=== PATIENT | female | born 1945 | race Caucasian/White ===

== ENCOUNTER → 2016-07-08 | Outpatient (CLI) | payer MEDICARE ==
[2016-07-08 11:43] LABS: Basophils # (A) 0.1 k/uL (0-0.2); Basophils % (A) 1 %; CH 29.4; Eosinophils # (A) 0.3 k/uL (0-0.7); Eosinophils % (A) 3 %; HCT 37.8 % (34.0-46.0); HDW 2.56; HGB 11.8 gm/dL (11.4-16.0); Hypochromasia Slight; Luc # (Auto) 0.19; Luc % (Auto) 2; Lymphocytes # (A) 1.8 k/uL (1.0-4.8); Lymphocytes % (A) 18 %; MCH 29.6 pg (25.0-35.0); MCHC 31.2 g/dL (31.0-37.0); MCV 95.1 fL (80.0-100.0); Mean Platelet Volume 8.8; Monocytes # (A) 0.5 k/uL (0-1.0); Monocytes % (A) 5 %; Neutrophils # (A) 7.3 k/uL (1.3-7.7); Neutrophils % (A) 72 %; RBC 3.98 m/uL (3.80-5.40); RDW 13.9 % (11.5-15.5); WBC 10.3 k/uL (3.8-10.6); WBC (Perox) 11.17
[2016-07-08 11:52] LABS: Calcium 8.9 mg/dL (8.4-10.2); Magnesium 1.9 mg/dL (1.6-2.3); Phosphorous 4.3 mg/dL (2.5-4.5); Potassium 5.5 mmol/L (3.5-5.1); Uric Acid 6.7 mg/dL (3.7-7.4)
[2016-07-08 12:00] LABS: Appearance,Urine Cloudy (Clear); Bacteria,Urine Occasional /hpf; Bilirubin,Urine Negative (Negative); Glucose,Urine (UA) 1+ (Negative); Ketones,Urine Negative (Negative); Leukocyte Esterase,Urine Small (Negative); Mucus,Urine Rare /hpf; Nitrite,Urine Negative (Negative); PH, Urine 5.5 (5.0-8.0); Particle Count 67583; Protein,Urine 1+ (Negative); RBC,Urine 2 /hpf (0-5); Specific Gravity,Urine 1.011 (1.001-1.035); Squamous Epithelial Cell,Urine <1 /hpf (0-4); UA Billing (MACRO vs. MICRO) MICRO; Urobilinogen,Urine <2.0 mg/dL (<2.0); WBC,Urine 15 /hpf (0-5)
[2016-07-08 12:15] LABS: % Iron Saturation 29.9 % (20-50)
[2016-07-08 16:58] LABS: ANA w/Reflex to Titer NEGATIVE (NEGATIVE)
[2016-07-11 03:34] LABS: Complement Total (CH50) 172 CAE (54-144)
[2016-07-11 11:50] LABS: Free Kappa Lt Chain Qnt, Serum 10.88 mg/dL (0.33 - 1.94); Kappa/Lambda Light Chain Ratio 1.67 (0.26 - 1.65)
[2016-07-11 14:52] LABS: C-ANCA <1:20 Titer (<1:20); P-ANCA <1:20 Titer (<1:20)
[2016-07-11 16:14] LABS: Mis test requested (Non-blood) UPEP
== END | disposition home or self-care (01) ==
LOC: LABWHC1 11:15
PROVIDERS: ATTEND Nurse Practitioner Family
DX: N18.4 Chronic kidney disease, stage 4 (severe) (principal); D50.9 Iron deficiency anemia, unspecified; R80.9 Proteinuria, unspecified; N39.0 Urinary tract infection, site not specified; E21.3 Hyperparathyroidism, unspecified; E55.9 Vitamin D deficiency, unspecified; M10.9 Gout, unspecified
CPT/HCPCS: 36415; 80048; 81001; 82306; 82728; 83516; 83540; 83550; 83735; 83883; 83970; 84100; 84166; 84550; 85025; 86038; 86160; 86162; 86225; 86255; 87077; 87086; 87186

== ENCOUNTER → 2016-08-04 | Outpatient (CLI) | payer MEDICARE ==
[2016-08-04 12:51] LABS: CH 29.4; CHCM 31.3; HCT 36.2 % (34.0-46.0); HDW 2.72; HGB 11.5 gm/dL (11.4-16.0); Hypochromasia Slight; MCH 29.8 pg (25.0-35.0); MCHC 31.6 g/dL (31.0-37.0); MCV 94.4 fL (80.0-100.0); Mean Platelet Volume 8.9; RBC 3.84 m/uL (3.80-5.40); RDW 14.1 % (11.5-15.5); WBC 14.7 k/uL (3.8-10.6)
[2016-08-04 13:12] LABS: Appearance,Urine Cloudy (Clear); Bacteria,Urine Many /hpf; Bilirubin,Urine Negative (Negative); Glucose,Urine (UA) Negative (Negative); Ketones,Urine Negative (Negative); Leukocyte Esterase,Urine Large (Negative); Mucus,Urine Rare /hpf; Nitrite,Urine Negative (Negative); PH, Urine 5.5 (5.0-8.0); Particle Count 57795; Protein,Urine 1+ (Negative); RBC,Urine 3 /hpf (0-5); Specific Gravity,Urine 1.007 (1.001-1.035); Squamous Epithelial Cell,Urine 1 /hpf (0-4); UA Billing (MACRO vs. MICRO) MICRO; Urobilinogen,Urine <2.0 mg/dL (<2.0); WBC,Urine 24 /hpf (0-5)
[2016-08-04 13:37] LABS: Calcium 8.7 mg/dL (8.4-10.2); Magnesium 2.1 mg/dL (1.6-2.3); Phosphorous 4.5 mg/dL (2.5-4.5); Potassium 4.7 mmol/L (3.5-5.1); Uric Acid 6.1 mg/dL (3.7-7.4)
[2016-08-04 13:46] LABS: % Iron Saturation 25.4 % (20-50)
== END | disposition home or self-care (01) ==
LOC: LABWHC1 12:04
PROVIDERS: ATTEND Nurse Practitioner Family
DX: N18.4 Chronic kidney disease, stage 4 (severe) (principal); N39.0 Urinary tract infection, site not specified; D50.9 Iron deficiency anemia, unspecified; E21.3 Hyperparathyroidism, unspecified; E55.9 Vitamin D deficiency, unspecified; M10.9 Gout, unspecified
CPT/HCPCS: 36415; 80048; 81001; 82306; 82728; 83540; 83550; 83735; 83970; 84100; 84550; 85027

== ENCOUNTER → 2016-09-28 | Outpatient (CLI) | payer MEDICARE ==
[2016-09-28 13:05] LABS: Calcium 8.8 mg/dL (8.4-10.2); Potassium 4.7 mmol/L (3.5-5.1)
== END | disposition home or self-care (01) ==
LOC: LABWHC1 11:37
PROVIDERS: ATTEND Nurse Practitioner Family
DX: N18.4 Chronic kidney disease, stage 4 (severe) (principal)
CPT/HCPCS: 36415; 80048

== ENCOUNTER → 2016-11-14 | Outpatient (CLI) | payer MEDICARE ==
[2016-11-14 14:50] LABS: CH 29.3; CHCM 31.5; HCT 33.9 % (34.0-46.0); HGB 10.8 gm/dL (11.4-16.0); Hypochromasia Slight; MCH 29.5 pg (25.0-35.0); MCHC 31.7 g/dL (31.0-37.0); MCV 93.3 fL (80.0-100.0); Mean Platelet Volume 8.6; RBC 3.64 m/uL (3.80-5.40); RDW 14.2 % (11.5-15.5); WBC 11.9 k/uL (3.8-10.6)
[2016-11-14 14:51] LABS: Calcium 8.9 mg/dL (8.4-10.2); Magnesium 2.2 mg/dL (1.6-2.3); Phosphorous 4.2 mg/dL (2.5-4.5); Potassium 5.4 mmol/L (3.5-5.1); Uric Acid 5.6 mg/dL (3.7-7.4)
[2016-11-14 15:00] LABS: % Iron Saturation 16.1 % (20-50)
[2016-11-14 15:15] LABS: Appearance,Urine Clear (Clear); Bilirubin,Urine Negative (Negative); Glucose,Urine (UA) 1+ (Negative); Ketones,Urine Negative (Negative); Leukocyte Esterase,Urine Trace (Negative); Nitrite,Urine Negative (Negative); PH, Urine 7.5 (5.0-8.0); Particle Count 1406; Protein,Urine 2+ (Negative); RBC,Urine 4 /hpf (0-5); Specific Gravity,Urine 1.011 (1.001-1.035); Squamous Epithelial Cell,Urine 2 /hpf (0-4); UA Billing (MACRO vs. MICRO) MICRO; Urobilinogen,Urine <2.0 mg/dL (<2.0); WBC,Urine 11 /hpf (0-5)
[2016-11-14 22:04] LABS: Hemoglobin A1C 8.3 % (4.2-6.1)
== END | disposition home or self-care (01) ==
LOC: LABWHC1 14:09
PROVIDERS: ATTEND Nurse Practitioner Family
DX: N18.4 Chronic kidney disease, stage 4 (severe) (principal); D64.9 Anemia, unspecified; N39.0 Urinary tract infection, site not specified; E11.9 Type 2 diabetes mellitus without complications; E21.3 Hyperparathyroidism, unspecified; E55.9 Vitamin D deficiency, unspecified; M10.9 Gout, unspecified
CPT/HCPCS: 36415; 80048; 81001; 82306; 82728; 83036; 83540; 83550; 83735; 83970; 84100; 84550; 85027; 87086

== ENCOUNTER 2016-12-24 22:58 | Inpatient (IN) | payer MEDICARE ==
[2016-12-24] MEDS ORDERED: IPRATROPIUM-ALBUTEROL 3 ML NEB INHALATION STA (23:05)
--- NOTE | 2016-12-24 23:08 | ED ---
SOB HPI - General Stated Complaint: CRISTHIAN Time Seen by Provider: 12/24/16 23:00 Source: patient Limitations: altered mental status (Dyspnea) - History of Present Illness Initial Comments: This is 71-year-old woman brought in for shortness of breath that she states is been getting worse since this evening. She also notes some tightness across the chest bilaterally. MD Complaint: shortness of breath -: hour(s) Consistency: constant Improves With: nothing Worsens With: nothing Associated Symptoms: denies other symptoms Treatments Prior to Arrival: bronchodilator - Related Data Home Medications Medication Instructions Recorded Confirmed DULoxetine HCL [Cymbalta] 60 mg PO DAILY 08/04/14 11/22/15 Fish Oil/Dha/Epa [Fish Oil 1,200 1 cap PO MOWEFR 08/04/14 11/22/15 mg Fish Oil] Insulin Glargine [Lantus] 20 units SQ HS 08/04/14 11/22/15 Liraglutide [Victoza 3-Manuel] 1.8 mg SQ DAILY 08/04/14 11/22/15 Acetaminophen Tab [Tylenol] 650 mg PO Q6H PRN 05/29/15 11/22/15 Furosemide [Lasix] 20 mg PO DAILY 05/29/15 11/22/15 Amiodarone HCl [Pacerone] 100 mg PO DAILY 11/22/15 11/22/15 Apixaban [Eliquis] 2.5 mg PO BID 11/22/15 11/22/15 Aspirin EC [Ecotrin Low Dose] 81 mg PO HS 11/22/15 11/22/15 Cetirizine HCl [Zyrtec] 10 mg PO DAILY 11/22/15 11/22/15 Cholecalciferol [Vitamin D3] 2,000 unit PO DAILY 11/22/15 11/22/15 Cranberry 4200mg Tab(Unknown) 4,200 mg PO BID 11/22/15 11/22/15 Cyclobenzaprine [Flexeril] 2.5 - 5 mg PO HS PRN 11/22/15 11/22/15 Docusate [Colace] 100 mg PO BID 11/22/15 11/22/15 Ezetimibe [Zetia] 10 mg PO DAILY 11/22/15 11/22/15 Isosorbide Mononitrate ER [Imdur] 30 mg PO DAILY 11/22/15 11/22/15 Magnesium Oxide [Mag-Ox] 400 mg PO HS 11/22/15 11/22/15 Metoprolol Tartrate 50 mg PO BID 11/22/15 11/22/15 NIFEdipine [NIFEdipine ER] 30 mg PO DAILY 11/22/15 11/22/15 Repaglinide 1 mg PO AC-LUNCH 11/22/15 11/22/15 Repaglinide 1 mg PO AC-SUPPER 11/22/15 11/22/15 Previous Rx's Medication Instructions Recorded ALPRAZolam [Xanax] 0.25 mg PO DAILY PRN #30 tab 11/27/15 Ciprofloxacin HCl [Cipro] 500 mg PO Q18H #20 tab 11/27/15 Famotidine [Pepcid] 20 mg PO DAILY tab 11/27/15 Gabapentin [Neurontin] 300 mg PO BID #60 capsule 11/27/15 INSULIN LISPRO (humaLOG) [humaLOG 0 unit SQ ACHS vial 11/27/15 (formulary)] traMADol HCL [Ultram] 50 - 100 mg PO Q4-6H PRN #120 11/27/15 tablet Allergies Allergy/AdvReac Type Severity Reaction Status Date / Time KUSHAL Inhibitors Allergy Unknown Verified 12/25/16 07:50 ARB-Angiotensin Receptor Allergy Unknown Verified 12/25/16 07:50 Antagonist cephalexin monohydrate Allergy Rash/Hives Verified 12/25/16 07:50 [From Keflex] moexipril HCl [From Univasc] Allergy Unknown Verified 12/25/16 07:50 propoxyphene HCl Allergy Unknown Verified 12/25/16 07:50 [From Darvon] Mrpkauz-Rpx-Vln Reductase Allergy Unknown Verified 12/25/16 07:50 Inhibitor Review of Systems ROS Statement: Those systems with pertinent positive or pertinent negative responses have been documented in the HPI. ROS Other: All systems not noted in ROS Statement are negative. Limitations: ROS unobtainable due to patients medical condition (Dyspnea) Constitutional: Denies: fever, chills ENT: Reports: dental pain (States that she had a dental abscess drained yesterday and is going to have a tooth extracted Monday) Respiratory: Denies: cough, dyspnea Cardiovascular: Reports: as per HPI, chest pain. Denies: palpitations Gastrointestinal: Denies: abdominal pain, vomiting, diarrhea Genitourinary: Denies: dysuria, hematuria Musculoskeletal: Denies: back pain Skin: Denies: rash Neurological: Denies: headache Past Medical History Past Medical History: Atrial Fibrillation, Heart Failure, Diabetes Mellitus, GERD/Reflux, Hyperlipidemia, Hypertension, Myocardial Infarction ([place]), Pneumonia , Renal Disease, Sleep Apnea/CPAP/BIPAP Additional Past Medical History / Comment(s): undiagnosed sleep apnea. chronic kidney disease diangosed may 2015 Last Myocardial Infarction Date:: 05/28/2015 History of Any Multi-Drug Resistant Organisms: MRSA Date of last positivie culture/infection: 2009 MDRO Source:: wounds Past Surgical History: Back Surgery, Cholecystectomy, Heart Catheterization, Hysterectomy Additional Past Surgical History / Comment(s): Lumbar surgery with decompression off L3-L4 L4-L5 with fusion March 2011 with previous hardware failure L4-L5 and extension of fusion to S1. new back sugery including t8 and t9 Past Anesthesia/Blood Transfusion Reactions: No Reported Reaction Past Psychological History: Anxiety, Depression Additional Psychological History / Comment(s): she requires wheelchair to go around inside the house she used to have a cat was not diagnosed to have sleep apnea as there was no sleep study done at all Smoking Status: Never smoker Past Alcohol Use History: None Reported Past Drug Use History: None Reported - Past Family History Mother Family Medical History: AFIB, CVA/TIA, Hypertension Daughter(s) Family Medical History: Asthma Son(s) Family Medical History: Asthma General Exam General appearance: alert, in distress (Patient in mild respiratory distress), obese Head exam: Present: atraumatic, normocephalic Eye exam: Present: normal appearance. Absent: scleral icterus, conjunctival injection ENT exam: Present: mucous membranes dry Neck exam: Present: normal inspection, full ROM Respiratory exam: Present: respiratory distress (Mild tachypnea), wheezes, prolonged expiratory. Absent: rales, rhonchi, stridor, chest wall tenderness, accessory muscle use, decreased breath sounds Cardiovascular Exam: Present: regular rate, normal rhythm, normal heart sounds. Absent: systolic murmur, diastolic murmur, rubs, gallop GI/Abdominal exam: Present: soft. Absent: distended, tenderness, guarding, rebound, mass Extremities exam: Present: normal inspection, normal capillary refill. Absent: pedal edema, calf tenderness Back exam: Present: normal inspection. Absent: CVA tenderness (R), CVA tenderness (L) Neurological exam: Present: alert Skin exam: Present: warm, dry, intact, normal color. Absent: rash Course Vital Signs 12/24/16 12/24/16 12/24/16 23:03 23:26 23:41 Temperature 97.6 F Pulse Rate 99 97 95 Respiratory 22 Rate Blood Pressure 126/62 O2 Sat by Pulse 95 Oximetry 12/25/16 12/25/16 12/25/16 00:00 01:50 04:20 Temperature Pulse Rate 96 95 95 Respiratory 18 20 18 Rate Blood Pressure 183/78 174/73 154/71 O2 Sat by Pulse 99 97 96 Oximetry 12/25/16 12/25/16 07:02 07:24 Temperature Pulse Rate 94 95 Respiratory 18 20 Rate Blood Pressure 168/75 175/79 O2 Sat by Pulse 98 95 Oximetry Medical Decision Making - Medical Decision Making This patient is 71-year-old woman presenting with acute dyspnea. Clinically patient appears to have some underlying COPD, as well as some CHF component however the patient has had worse. CHF in the past. Patient's d-dimer is somewhat elevated and renal function does not support receiving dye load therefore will have VQ scan in the morning. - Lab Data Result diagrams: 12/24/16 23:08 12/24/16 23:08 Lab Results 12/24/16 12/24/16 12/24/16 Range/Units 23:08 23:08 23:08 WBC 11.5 H (3.8-10.6) k/uL RBC 3.45 L (3.80-5.40) m/uL Hgb 10.3 L (11.4-16.0) gm/dL Hct 32.6 L (34.0-46.0) % MCV 94.5 (80.0-100.0) fL MCH 29.7 (25.0-35.0) pg MCHC 31.4 (31.0-37.0) g/dL RDW 14.9 (11.5-15.5) % Plt Count 247 (150-450) k/uL Neutrophils % 75 % Lymphocytes % 10 % Monocytes % 5 % Eosinophils % 8 % Basophils % 1 % Neutrophils # 8.6 H (1.3-7.7) k/uL Lymphocytes # 1.2 (1.0-4.8) k/uL Monocytes # 0.5 (0-1.0) k/uL Eosinophils # 0.9 H (0-0.7) k/uL Basophils # 0.1 (0-0.2) k/uL Hypochromasia Slight PT (9.0-12.0) sec INR (<1.2) APTT (22.0-30.0) sec D-Dimer (<0.60) mg/L FEU Sample Site ABG pH (7.35-7.45) ABG pCO2 (35-45) mmHg ABG pO2 (83-108) mmHg ABG HCO3 (21-25) mmol/L ABG Total CO2 (19-24) mmol/L ABG O2 Saturation (94-97) % ABG Base Excess mmol/L FiO2 % Sodium 138 (137-145) mmol/L Potassium 5.7 H (3.5-5.1) mmol/L Chloride 105 (98-107) mmol/L Carbon Dioxide 23 (22-30) mmol/L Anion Gap 10 mmol/L BUN 39 H (7-17) mg/dL Creatinine 2.80 H (0.52-1.04) mg/dL Est GFR (MDRD) Af Amer 20 (>60 ml/min/1.73 sqM) Est GFR (MDRD) Non-Af 17 (>60 ml/min/1.73 sqM) Glucose 349 H (74-99) mg/dL Plasma Lactic Acid Satinder (0.7-2.0) mmol/L Calcium 8.7 (8.4-10.2) mg/dL Magnesium 1.9 (1.6-2.3) mg/dL Total Bilirubin 0.5 (0.2-1.3) mg/dL AST 44 H (14-36) U/L ALT 39 (9-52) U/L Alkaline Phosphatase 172 H (38-126) U/L Total Creatine Kinase 34 (30-135) U/L CK-MB (CK-2) 1.3 (0.0-2.4) ng/mL CK-MB (CK-2) Rel Index 3.8 Troponin I <0.012 (0.000-0.034) ng/mL NT-Pro-B Natriuret Pep pg/mL Total Protein 6.5 (6.3-8.2) g/dL Albumin 3.2 L (3.5-5.0) g/dL Urine Color Urine Appearance (Clear) Urine pH (5.0-8.0) Ur Specific [place] (1.001-1.035) Urine Protein (Negative) Urine Glucose (UA) (Negative) Urine Ketones (Negative) Urine Blood (Negative) Urine Nitrite (Negative) Urine Bilirubin (Negative) Urine Urobilinogen (<2.0) mg/dL Ur Leukocyte Esterase (Negative) Urine RBC (0-5) /hpf Urine WBC (0-5) /hpf Ur Squamous Epith Cells (0-4) /hpf Urine Bacteria (None) /hpf Hyaline Casts (0-2) /lpf Urine Mucus (None) /hpf 12/24/16 12/24/16 12/24/16 Range/Units 23:08 23:08 23:08 WBC (3.8-10.6) k/uL RBC (3.80-5.40) m/uL Hgb (11.4-16.0) gm/dL Hct (34.0-46.0) % MCV (80.0-100.0) fL MCH (25.0-35.0) pg MCHC (31.0-37.0) g/dL RDW (11.5-15.5) % Plt Count (150-450) k/uL Neutrophils % % Lymphocytes % % Monocytes % % Eosinophils % % Basophils % % Neutrophils # (1.3-7.7) k/uL Lymphocytes # (1.0-4.8) k/uL Monocytes # (0-1.0) k/uL Eosinophils # (0-0.7) k/uL Basophils # (0-0.2) k/uL Hypochromasia PT 10.5 (9.0-12.0) sec INR 1.0 (<1.2) APTT 25.5 (22.0-30.0) sec D-Dimer 1.54 H (<0.60) mg/L FEU Sample Site ABG pH (7.35-7.45) ABG pCO2 (35-45) mmHg ABG pO2 (83-108) mmHg ABG HCO3 (21-25) mmol/L ABG Total CO2 (19-24) mmol/L ABG O2 Saturation (94-97) % ABG Base Excess mmol/L FiO2 % Sodium (137-145) mmol/L Potassium (3.5-5.1) mmol/L Chloride (98-107) mmol/L Carbon Dioxide (22-30) mmol/L Anion Gap mmol/L BUN (7-17) mg/dL Creatinine (0.52-1.04) mg/dL Est GFR (MDRD) Af Amer (>60 ml/min/1.73 sqM) Est GFR (MDRD) Non-Af (>60 ml/min/1.73 sqM) Glucose (74-99) mg/dL Plasma Lactic Acid Satinder 1.1 (0.7-2.0) mmol/L Calcium (8.4-10.2) mg/dL Magnesium (1.6-2.3) mg/dL Total Bilirubin (0.2-1.3) mg/dL AST (14-36) U/L ALT (9-52) U/L Alkaline Phosphatase (38-126) U/L Total Creatine Kinase (30-135) U/L CK-MB (CK-2) (0.0-2.4) ng/mL CK-MB (CK-2) Rel Index Troponin I (0.000-0.034) ng/mL NT-Pro-B Natriuret Pep 4910 pg/mL Total Protein (6.3-8.2) g/dL Albumin (3.5-5.0) g/dL Urine Color Urine Appearance (Clear) Urine pH (5.0-8.0) Ur Specific [place] (1.001-1.035) Urine Protein (Negative) Urine Glucose (UA) (Negative) Urine Ketones (Negative) Urine Blood (Negative) Urine Nitrite (Negative) Urine Bilirubin (Negative) Urine Urobilinogen (<2.0) mg/dL Ur Leukocyte Esterase (Negative) Urine RBC (0-5) /hpf Urine WBC (0-5) /hpf Ur Squamous Epith Cells (0-4) /hpf Urine Bacteria (None) /hpf Hyaline Casts (0-2) /lpf Urine Mucus (None) /hpf 12/24/16 12/25/16 Range/Units 23:30 00:01 WBC (3.8-10.6) k/uL RBC (3.80-5.40) m/uL Hgb (11.4-16.0) gm/dL Hct (34.0-46.0) % MCV (80.0-100.0) fL MCH (25.0-35.0) pg MCHC (31.0-37.0) g/dL RDW (11.5-15.5) % Plt Count (150-450) k/uL Neutrophils % % Lymphocytes % % Monocytes % % Eosinophils % % Basophils % % Neutrophils # (1.3-7.7) k/uL Lymphocytes # (1.0-4.8) k/uL Monocytes # (0-1.0) k/uL Eosinophils # (0-0.7) k/uL Basophils # (0-0.2) k/uL Hypochromasia PT (9.0-12.0) sec INR (<1.2) APTT (22.0-30.0) sec D-Dimer (<0.60) mg/L FEU Sample Site rrad ABG pH 7.32 L (7.35-7.45) ABG pCO2 48 H (35-45) mmHg ABG pO2 87 (83-108) mmHg ABG HCO3 24 (21-25) mmol/L ABG Total CO2 25 H (19-24) mmol/L ABG O2 Saturation 96.0 (94-97) % ABG Base Excess -1.8 mmol/L FiO2 36 % Sodium (137-145) mmol/L Potassium (3.5-5.1) mmol/L Chloride (98-107) mmol/L Carbon Dioxide (22-30) mmol/L Anion Gap mmol/L BUN (7-17) mg/dL Creatinine (0.52-1.04) mg/dL Est GFR (MDRD) Af Amer (>60 ml/min/1.73 sqM) Est GFR (MDRD) Non-Af (>60 ml/min/1.73 sqM) Glucose (74-99) mg/dL Plasma Lactic Acid Satinder (0.7-2.0) mmol/L Calcium (8.4-10.2) mg/dL Magnesium (1.6-2.3) mg/dL Total Bilirubin (0.2-1.3) mg/dL AST (14-36) U/L ALT (9-52) U/L Alkaline Phosphatase (38-126) U/L Total Creatine Kinase (30-135) U/L CK-MB (CK-2) (0.0-2.4) ng/mL CK-MB (CK-2) Rel Index Troponin I (0.000-0.034) ng/mL NT-Pro-B Natriuret Pep pg/mL Total Protein (6.3-8.2) g/dL Albumin (3.5-5.0) g/dL Urine Color Yellow Urine Appearance Clear (Clear) Urine pH 6.0 (5.0-8.0) Ur Specific [place] 1.011 (1.001-1.035) Urine Protein 3+ H (Negative) Urine Glucose (UA) 4+ H (Negative) Urine Ketones Negative (Negative) Urine Blood Small H (Negative) Urine Nitrite Negative (Negative) Urine Bilirubin Negative (Negative) Urine Urobilinogen <2.0 (<2.0) mg/dL Ur Leukocyte Esterase Negative (Negative) Urine RBC 28 H (0-5) /hpf Urine WBC 2 (0-5) /hpf Ur Squamous Epith Cells 1 (0-4) /hpf Urine Bacteria Rare H (None) /hpf Hyaline Casts 13 H (0-2) /lpf Urine Mucus Rare H (None) /hpf - EKG Data -: EKG Interpreted by Me EKG shows normal: sinus rhythm, intervals (The QRS duration is prolonged at 140 ms. The SC interval is 160 ms the QTC is 525 ms), QRS complexes (There is a right bundle-branch block present. There is a left anterior fascicular block. There is a bifascicular block.) Rate: normal (Rate approximately 95 bpm) Interpretation: other (The EKG is similar to comparison with some changes in V1 and V2 that I suspect may be positional.) Disposition Clinical Impression: Elevated d-dimer, Acute exacerbation of chronic obstructive airways disease, Acute on chronic renal failure, Hyperkalemia Disposition: ADMITTED IP TO THIS HOSP
[2016-12-24 23:25] LABS: Basophils # (A) 0.1 k/uL (0-0.2); Basophils % (A) 1 %; CH 30.1; Eosinophils # (A) 0.9 k/uL (0-0.7); Eosinophils % (A) 8 %; HCT 32.6 % (34.0-46.0); HDW 2.87; HGB 10.3 gm/dL (11.4-16.0); Hypochromasia Slight; Luc # (Auto) 0.16; Luc % (Auto) 1; Lymphocytes # (A) 1.2 k/uL (1.0-4.8); Lymphocytes % (A) 10 %; MCH 29.7 pg (25.0-35.0); MCHC 31.4 g/dL (31.0-37.0); MCV 94.5 fL (80.0-100.0); Mean Platelet Volume 9.7; Monocytes # (A) 0.5 k/uL (0-1.0); Monocytes % (A) 5 %; Neutrophils # (A) 8.6 k/uL (1.3-7.7); Neutrophils % (A) 75 %; RBC 3.45 m/uL (3.80-5.40); RDW 14.9 % (11.5-15.5); WBC 11.5 k/uL (3.8-10.6); WBC (Perox) 11.82
--- NOTE | 2016-12-24 23:42 | XR ---
EXAM: XR Chest, 1 View CLINICAL HISTORY: Reason: dyspnea TECHNIQUE: Frontal view of the chest. COMPARISON: 11/22/2015. FINDINGS: Lungs: Bilateral perihilar infiltrates are suggested with heart appearing prominent, likely representing mild CHF/pulmonary edema. Bibasilar atelectasis and/or infiltrates are also present. Probable small bilateral pleural effusions. Low lung volumes are noted, limiting examination. Pleural space: See above. Heart: Suspected cardiomegaly. Mediastinum: Essentially unchanged. Bones/joints: Postsurgical changes involving the lower thoracolumbar spine again seen.. IMPRESSION: Low lung volumes, limiting evaluation. Bilateral perihilar infiltrates are suggested with heart appearing prominent, likely representing mild CHF/pulmonary edema. Bibasilar atelectasis and/or infiltrates are also present. Probable small bilateral pleural effusions. : Correlation recommended. PA and lateral views of the chest recommended for further evaluation, if clinically indicated.
[2016-12-24 23:43] LABS: Partial Thromboplastin Time 25.5 sec (22.0-30.0); Prothrombin Time 10.5 sec (9.0-12.0)
[2016-12-24 23:45] LABS: ABG HCO3 24 mmol/L (21-25); ABG PCO2 48 mmHg (35-45); ABG PH 7.32 (7.35-7.45); ABG PO2 87 mmHg (83-108)
[2016-12-24 23:46] LABS: ABG Base Excess -1.8 mmol/L; ABG TCO2 25 mmol/L (19-24)
[2016-12-24 23:48] LABS: Calcium 8.7 mg/dL (8.4-10.2); Magnesium 1.9 mg/dL (1.6-2.3); Potassium 5.7 mmol/L (3.5-5.1); Total Bilirubin 0.5 mg/dL (0.2-1.3); Total Protein 6.5 g/dL (6.3-8.2)
[2016-12-24 23:50] LABS: Creatine Kinase 34 U/L (30-135)
[2016-12-25 00:03] LABS: Creatine Kinase MB 1.3 ng/mL (0.0-2.4); Troponin I <0.012 ng/mL (0.000-0.034)
[2016-12-25 00:23] LABS: Appearance,Urine Clear (Clear); Bacteria,Urine Rare /hpf; Bilirubin,Urine Negative (Negative); Glucose,Urine (UA) 4+ (Negative); Ketones,Urine Negative (Negative); Leukocyte Esterase,Urine Negative (Negative); Mucus,Urine Rare /hpf; Nitrite,Urine Negative (Negative); Particle Count 1588; Protein,Urine 3+ (Negative); RBC,Urine 28 /hpf (0-5); Specific Gravity,Urine 1.011 (1.001-1.035); Squamous Epithelial Cell,Urine 1 /hpf (0-4); UA Billing (MACRO vs. MICRO) MICRO; Urobilinogen,Urine <2.0 mg/dL (<2.0); WBC,Urine 2 /hpf (0-5)
[2016-12-25] MEDS ORDERED: ENOXAPARIN 100 MG/ML SYRINGE SQ STA (00:38)
[2016-12-25] MEDS ORDERED: NITROGLYCERIN SL TABS 0.4 MG TAB SUBLINGUAL PRN (00:39)
[2016-12-25] MEDS ORDERED: ALPRAZolam 0.25 MG TAB PO PRN (00:42)
[2016-12-25] MEDS ORDERED: traMADol 50 MG TAB PO PRN (00:42)
[2016-12-25] MEDS ORDERED: ACETAMINOPHEN TAB 325 MG TAB PO PRN (00:42)
[2016-12-25] MEDS ORDERED: SODIUM POLYSTYRENE SULFONATE 15 GM/60 ML BOTTLE PO STA ×2 (03:53→15:57)
[2016-12-25 06:13] LABS: Creatine Kinase 25 U/L (30-135)
[2016-12-25 06:33] LABS: Creatine Kinase MB 1.1 ng/mL (0.0-2.4); Troponin I <0.012 ng/mL (0.000-0.034)
[2016-12-25] MEDS: IPRATROPIUM-ALBUTEROL 3 ML NEB INHALATION SCH ×3 (07:23→12:11)
[2016-12-25] MEDS ORDERED: INSULIN REGULAR 100 UNIT/ML VIAL SQ STA (08:06)
--- NOTE | 2016-12-25 08:10 | US ---
EXAMINATION TYPE: US venous doppler duplex LE DATE OF EXAM: 12/25/2016 7:34 AM COMPARISON: NONE CLINICAL HISTORY: R/O DVT. SOB, patient on blood thinner for AFIB SIDE PERFORMED: Bilateral TECHNIQUE: The lower extremity deep venous system is examined utilizing real time linear array sonog pushpa with graded compression, doppler sonography and color-flow sonography. VESSELS IMAGED: External Iliac Vein (EIV) Common Femoral Vein Deep Femoral Vein Greater Saphenous Vein * Femoral Vein Popliteal Vein Small Saphenous Vein * Proximal Calf Veins (* superficial vessels) Right Leg: No evidence of acute DVT as visualized Left Leg: No evidence of acute DVT as visualized IMPRESSION: 1. No evidence of DVT as visualized.
[2016-12-25] MEDS: AMIODARONE 100 MG TAB PO SCH (08:34)
[2016-12-25] MEDS: CHOLECALCIFEROL 1,000 UNIT TAB PO SCH (08:35)
[2016-12-25] MEDS: DOCUSATE 100 MG CAP PO SCH ×2 (08:35→21:18)
[2016-12-25] MEDS: DULoxetine HCL 60 MG CAPSULE.DR PO SCH (08:36)
[2016-12-25] MEDS: FAMOTIDINE 20 MG TAB PO SCH (08:36)
[2016-12-25] MEDS: EZETIMIBE 10 MG TAB PO SCH (08:36)
[2016-12-25] MEDS: LORATADINE 10 MG TAB PO SCH (08:37)
[2016-12-25] MEDS: ISOSORBIDE MONONITRATE ER 30 MG TAB.ER.24H PO SCH (08:37)
[2016-12-25] MEDS: GABAPENTIN 300 MG CAP PO SCH ×2 (08:37→21:18)
[2016-12-25] MEDS: METOPROLOL TARTRATE 50 MG TAB PO SCH ×2 (08:38→21:19)
--- NOTE | 2016-12-25 08:38 | NM ---
EXAMINATION TYPE: NM pul vent and perfuse DATE OF EXAM: 12/25/2016 COMPARISON: VQ scan 05/29/2015, chest x-ray 12/24/2016. HISTORY: Shortness of breath TECHNIQUE: Utilizing inhalation of 71.3 mCi Tc 99m DTPA aerosol and intravenous injection of 5.5 mCi of Tc 99m MAA, ventilation and perfusion images are acquired post injection in multiple projections. FINDINGS: Matched defect within the left lower lobe corresponds to the chest x-ray abnormality. Matched defect left upper lobe. IMPRESSION: Intermediate probability for pulmonary embolism.
[2016-12-25 08:46] LABS: Glucose,Whole Blood 305 mg/dL (75-99)
[2016-12-25] MEDS ORDERED: predniSONE 20 MG TAB PO SCH (09:00)
[2016-12-25] MEDS ORDERED: NON-FORMULARY DRUG (Liraglutide [Victoza 3-Pak] 1.8 MG) SQ SCH (09:00)
[2016-12-25] MEDS ORDERED: NIFEdipine XL 30 MG TAB.ER.24 PO SCH (09:00)
[2016-12-25] MEDS ORDERED: APIXABAN 2.5 MG TABLET PO SCH (09:00)
[2016-12-25] MEDS ORDERED: FUROSEMIDE 20 MG TAB PO SCH (09:00)
[2016-12-25 09:37] LABS: Glucose,Whole Blood 287 mg/dL (75-99)
[2016-12-25] MEDS ORDERED: FUROSEMIDE 10 MG/ML 10 ML VIAL IV STA (10:50)
[2016-12-25] MEDS ORDERED: CYCLOBENZAPRINE 5 MG TAB PO PRN (10:51)
[2016-12-25] MEDS ORDERED: INSULIN GLARGINE 100 UNIT/ML 10 ML VIAL SQ STA (10:55)
--- NOTE | 2016-12-25 10:59 | P.HPIM ---
History of Present Illness H&P Date: 12/25/16 Chief Complaint: Dyspnea This 71-year-old female patient presented with a chief complaint of dyspnea. Patient states that she had been out with her family for the day and about 7:30 PM last night began to experience short of some breath. This worsened and she also had chest heaviness associated with it. Her daughter who is an RN decided to bring her to the hospital. Patient does have a prior history of secondhand smoke exposure with a possible history of COPD. She is not normally oxygen dependent. She has many chronic issues as listed below. Her only other acute issues at this time is that she has had an abscessed tooth (molar right lower jaw ) that was worked on this week and is scheduled to be worked on further next week with the dentist in [place] Dr. Orourke. She was evaluated for sepsis and acute coronary syndrome in the emergency department. That workup is thus far negative. She did have an elevated d-dimer. She had a chest x-ray in the emergency department that did show some perihilar edema. She did have a VQ scan which was an intermediate probability. She has been on Eliquis at home. Lower extremity duplex is negative for DVT. Patient and family refuse any CAT scan because of the patient's tenuous renal status. They fear that any contrast would put patient back on dialysis as she had been in the past at one time. With patient's improved pulmonary status after BiPAP and now on 4 L of oxygen without significant accessory muscle use after measures that were taken in the emergency department and negative venous duplex of the lower extremities my clinical suspicion is lower for pulmonary embolus at this time but cannot be completely ruled out. Patient does not have any ongoing chest heaviness. She is able lie back at 30 without discomfort at this time. It sounds like that was not possible in the emergency department. Family relates patient did receive 20 mg of Lasix in the emergency department but has not significantly diuresed. Review of Systems Constitutional: Patient reports some sensation of fever and chills over the last 2-3 days, no weight changes, no change in appetite. Eyes: Patient reports no double vision, no visual changes. ENT: Patient reports no rhinorrhea, no post nasal drip. Throat slightly sore since being placed on oxygen, not prior. Cardiovascular: Patient reports positive chest pressure with for her breathing difficulty upon admission. No sharp chest pain. No radiation to the neck, jaw , or arm. no edema, no palpitations, no syncope, no orthopnea, no paroxysmal nocturnal dyspnea reported at this time the patient was sitting fully upright in the emergency department to be able to breathe.. Patient has a known history of aortic stenosis which her daughter states is mild. Chronic atrial fibrillation by history. Respiratory: Patient reports positive dyspnea upon admission which was the reason for presenting to the emergency department; no cough, no reported wheeze per patient. Gastrointestinal: Patient reports no nausea, no vomiting,, no diarrhea. positive chronic constipation for which she is on Colace and MiraLAX.. Genitourinary: Patient reports no dysuria, no urinary frequency, no hematuria. Musculoskeletal: Patient reports no joint swelling. She has chronic lumbar and thoracic back pain is had multiple back surgeries including fusions of the lumbar spine along with rods placed in the thoracic spine in the past. Psychiatric: Patient reports a history of both depression and anxiety. Patient states that she did lose her 2 years ago making this worse. However she states it has improved and she is feeling better now. She denies any suicidal ideation or plan to harm herself.. Endocrine: Patient reports positive history of diabetes mellitus. No reported thyroid disorder. Neurological: Patient reports positive history of left foot drop. Positive history of peripheral neuropathy of both the upper and lower extremities. This may be multifactorial. Patient certainly has a history of diabetes mellitus and also had a history of prolonged stay after her lumbar surgery and reports that some of her neuropathy was related to same. Patient was even at [facility] after her admission for that surgery. She is chronically wheel chair bound and unable to ambulate on her own fully since that surgery. Per daughter last hospitalization was 16 months ago. Heme/Lymphatic: Patient reports no easy bruising, no bleeding tendency, no lymphadenopathy. she is chronically on Eliquis for her atrial fibrillation Allergic/ Immunologic: Patient reports seasonal ALLERGIES Skin: Patient and daughter report patient has a sacral wound that is various stages of healing at different times. It is currently healing. Past Medical History Past Medical History: Atrial Fibrillation, Coronary Artery Disease (CAD) (four affected vessels per daughter; have been offered stent, etc. but refusing as concerned about worsening of renal failure with contrast for procedure), Heart Failure (chronic; dialysis dependent in past in 2014 for a few weeks post op), Diabetes Mellitus, GERD/Reflux, Hyperlipidemia, Hypertension, Myocardial Infarction (DE) (times 2, one 2015, one 07/2014), Pneumonia, Renal Disease ( chronic, stage 4), Skin Disorder (sacral wound), Sleep Apnea/CPAP/BIPAP Additional Past Medical History / Comment(s): possible sleep apnea, no established diagnosis; chronic kidney disease diangosed may 2015; aortic stenois ; peripheral neuropathy upper and lower extremity Last Myocardial Infarction Date:: 05/28/2015 History of Any Multi-Drug Resistant Organisms: MRSA Date of last positivie culture/infection: 2009 MDRO Source:: wounds Past Surgical History: Back Surgery, Cholecystectomy, Heart Catheterization ( known quadruple vessel disease per daughter report), Hysterectomy (with BSO for bleeding, no carcinoma history) Additional Past Surgical History / Comment(s): Lumbar surgery with decompression off L3-L4 L4-L5 with fusion March 2011 with previous hardware failure L4-L5 and extension of fusion to S1. 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 [employer] - Past Family History Mother Family Medical History: AFIB, CVA/TIA, Hypertension Additional Family Medical History / Comment(s): mother age 83 Daughter(s) Family Medical History: Asthma Son(s) Family Medical History: Asthma Father Additional Family Medical History / Comment(s): Brain aneurysm ; age 72 Sister(s) Family Medical History: Hypertension Additional Family Medical History / Comment(s): Aortic stenosis; mitral valve disease Medications and Allergies Home Medications Medication Instructions Recorded Confirmed Type DULoxetine HCL [Cymbalta] 60 mg PO DAILY 08/04/14 12/25/16 History Fish Oil/Dha/Epa [Fish Oil 1,200 1 cap PO MOWEFR 08/04/14 12/25/16 History mg Fish Oil] Insulin Glargine [Lantus] 30 units SQ HS 08/04/14 12/25/16 History Acetaminophen Tab [Tylenol] 650 mg PO Q6H PRN 05/29/15 12/25/16 History Amiodarone HCl [Pacerone] 100 mg PO DAILY 11/22/15 12/25/16 History Apixaban [Eliquis] 2.5 mg PO BID 11/22/15 12/25/16 History Aspirin EC [Ecotrin Low Dose] 81 mg PO HS 11/22/15 12/25/16 History Cetirizine HCl [Zyrtec] 10 mg PO DAILY 11/22/15 12/25/16 History Cholecalciferol [Vitamin D3] 2,000 unit PO HS 11/22/15 12/25/16 History Cyclobenzaprine [Flexeril] 2.5 - 5 mg PO HS PRN 11/22/15 12/25/16 History Docusate [Colace] 100 mg PO BID 11/22/15 12/25/16 History Ezetimibe [Zetia] 10 mg PO DAILY 11/22/15 12/25/16 History Isosorbide Mononitrate ER [Imdur] 30 mg PO DAILY 11/22/15 12/25/16 History Magnesium Oxide [Mag-Ox] 400 mg PO HS 11/22/15 12/25/16 History Metoprolol Tartrate 50 mg PO BID 11/22/15 12/25/16 History NIFEdipine [NIFEdipine ER] 30 mg PO DAILY 11/22/15 12/25/16 History Cranberry 4200mg-Vitamin C 1 tab PO DAILY 12/25/16 12/25/16 History Furosemide [Lasix] 20 mg PO DAILY 12/25/16 12/25/16 History Glimepiride [Amaryl] 2 mg PO DAILY 12/25/16 12/25/16 History Omeprazole 20 mg PO DAILY 12/25/16 12/25/16 History Penicillin V Potassium [Pen Vee K] 500 mg PO Q6HR 12/25/16 12/25/16 History Polyethylene Glycol 3350 [Miralax] 17 gm PO DAILY 12/25/16 12/25/16 History Allergies Allergy/AdvReac Type Severity Reaction Status Date / Time KUSHAL Inhibitors Allergy Unknown Verified 12/25/16 07:50 ARB-Angiotensin Receptor Allergy Unknown Verified 12/25/16 07:50 Antagonist cephalexin monohydrate Allergy Rash/Hives Verified 12/25/16 07:50 [From Keflex] propoxyphene HCl Allergy Unknown Verified 12/25/16 07:50 [From Darvon] [id number] Reductase Allergy Unknown Verified 12/25/16 07:50 Inhibitor Physical Exam Osteopathic Statement: *. No significant issues noted on an osteopathic structural exam other than those noted in the History and Physical/Consult. Vitals: Vital Signs Temp Pulse Pulse Resp BP BP Pulse Ox 12/25/16 10:30 97.9 F 94 20 181/81 97 12/25/16 08:56 95 12/25/16 08:47 97.1 F L 90 22 176/79 96 12/25/16 07:24 95 20 175/79 95 12/25/16 07:02 94 18 168/75 98 12/25/16 04:20 95 18 154/71 96 12/25/16 01:50 95 20 174/73 97 12/25/16 00:00 96 18 183/78 99 12/24/16 23:41 95 12/24/16 23:26 97 12/24/16 23:03 97.6 F 99 22 126/62 95 Intake and Output 12/24/16 12/25/16 12/25/16 22:59 06:59 14:59 Other: Weight 94.347 kg 99.2 kg Patient Weight 12/26/16 06:59 Weight 99.2 kg Constitutional: No acute distress, conversant, pleasant Eyes: Anicteric sclerae, moist conjunctiva, no lid-lag PERRLA ENMT: NC/AT Oropharynx clear, edema surrounding right posterior molar on the lower jaw Neck: Supple, FROM, no masses, or JVD No carotid bruits No thyromegaly Lungs: Apices clear. Crackles usp up the bilateral bases posteriorly. No accessory muscle use of the time of my exam however significant accessory muscle use was reported in the emergency department and the patient did require BiPAP therapy at that time. She is now stable on 4 L nasal cannula. Cardiovascular: Heart irregular in rhythm with a controlled rate, Possible faint murmur over the aortic listening post. There is some significant ambient noise in the room which limits this a bit. No peripheral edema Abdominal: Soft Nontender, no guarding, rebound or rigidity Abdomen moving with respiration Normoactive bowel sounds No hepatomegaly, No splenomegaly No palpable mass No abdominal wall hernia noted Skin: Normal temperature, tone, texture, turgor No induration No subcutaneous nodules No rash, lesions Healing sacral ulcer over the coccyx, does have scab formation over the top which limits the evaluation. Possible healing stage II. Photos were taken by the nurse for the chart. Extremities: No digital cyanosis Pedal pulses intact and symmetrical Radial pulses intact and symmetrical See neuro. Patient unable to ambulate on her own. No calf tenderness . No erythema or firm areas felt over the calves. Psychiatric: Alert and oriented to person, place and time Appropriate affect Intact judgement Neuro: Muscles Strength 5-/5 in upper extremities. Strawhat Blocking Operator strength slightly weaker on the left than the right. Quadriceps 4 out of 5, hamstrings 4 out of 5 bilaterally. EHL extremely weak on both sides, moves against gravity but not much resistance allowed. Sensation to light touch impaired with no sensation felt until just above the ankles bilaterally. Once above the ankles patient does have full light touch sensation. Sensation also impaired over the hands bilaterally. Cranial nerves II-XII grossly intact Normal biceps and patellar reflexes. Patient has neither a port nor downward movement with attempt at Babinski reflex. Results CBC & Chem 7: 12/24/16 23:08 12/25/16 13:51 Labs: Abnormal Lab Results - Last 24 Hours (Table) 12/24/16 12/24/16 12/24/16 Range/Units 23:08 23:08 23:08 WBC 11.5 H (3.8-10.6) k/uL RBC 3.45 L (3.80-5.40) m/uL Hgb 10.3 L (11.4-16.0) gm/dL Hct 32.6 L (34.0-46.0) % Neutrophils # 8.6 H (1.3-7.7) k/uL Eosinophils # 0.9 H (0-0.7) k/uL D-Dimer 1.54 H (<0.60) mg/L FEU ABG pH (7.35-7.45) ABG pCO2 (35-45) mmHg ABG Total CO2 (19-24) mmol/L Potassium 5.7 H (3.5-5.1) mmol/L BUN 39 H (7-17) mg/dL Creatinine 2.80 H (0.52-1.04) mg/dL Glucose 349 H (74-99) mg/dL POC Glucose (mg/dL) (75-99) mg/dL AST 44 H (14-36) U/L Alkaline Phosphatase 172 H (38-126) U/L Total Creatine Kinase (30-135) U/L Albumin 3.2 L (3.5-5.0) g/dL Urine Protein (Negative) Urine Glucose (UA) (Negative) Urine Blood (Negative) Urine RBC (0-5) /hpf Urine Bacteria (None) /hpf Hyaline Casts (0-2) /lpf Urine Mucus (None) /hpf 12/24/16 12/25/16 12/25/16 Range/Units 23:30 00:01 05:32 WBC (3.8-10.6) k/uL RBC (3.80-5.40) m/uL Hgb (11.4-16.0) gm/dL Hct (34.0-46.0) % Neutrophils # (1.3-7.7) k/uL Eosinophils # (0-0.7) k/uL D-Dimer (<0.60) mg/L FEU ABG pH 7.32 L (7.35-7.45) ABG pCO2 48 H (35-45) mmHg ABG Total CO2 25 H (19-24) mmol/L Potassium (3.5-5.1) mmol/L BUN (7-17) mg/dL Creatinine (0.52-1.04) mg/dL Glucose (74-99) mg/dL POC Glucose (mg/dL) (75-99) mg/dL AST (14-36) U/L Alkaline Phosphatase (38-126) U/L Total Creatine Kinase 25 L (30-135) U/L Albumin (3.5-5.0) g/dL Urine Protein 3+ H (Negative) Urine Glucose (UA) 4+ H (Negative) Urine Blood Small H (Negative) Urine RBC 28 H (0-5) /hpf Urine Bacteria Rare H (None) /hpf Hyaline Casts 13 H (0-2) /lpf Urine Mucus Rare H (None) /hpf 12/25/16 12/25/16 Range/Units 08:43 09:35 WBC (3.8-10.6) k/uL RBC (3.80-5.40) m/uL Hgb (11.4-16.0) gm/dL Hct (34.0-46.0) % Neutrophils # (1.3-7.7) k/uL Eosinophils # (0-0.7) k/uL D-Dimer (<0.60) mg/L FEU ABG pH (7.35-7.45) ABG pCO2 (35-45) mmHg ABG Total CO2 (19-24) mmol/L Potassium (3.5-5.1) mmol/L BUN (7-17) mg/dL Creatinine (0.52-1.04) mg/dL Glucose (74-99) mg/dL POC Glucose (mg/dL) 305 H 287 H (75-99) mg/dL AST (14-36) U/L Alkaline Phosphatase (38-126) U/L Total Creatine Kinase (30-135) U/L Albumin (3.5-5.0) g/dL Urine Protein (Negative) Urine Glucose (UA) (Negative) Urine Blood (Negative) Urine RBC (0-5) /hpf Urine Bacteria (None) /hpf Hyaline Casts (0-2) /lpf Urine Mucus (None) /hpf Comments: Report of venous duplex reviewed and is negative. Report of V/Q scan is that it is indeterminate. Chest x-ray: report reviewed, image reviewed (Consistent with perihilar edema and some blunting of the left costophrenic angle) Thrombosis Risk Factor Assmnt - DVT/VTE Prophylaxis DVT/VTE Prophylaxis: Pharmacologic Prophylaxis ordered Assessment and Plan Plan: Assessment: 1. Acute respiratory failure, possibly multifactorial; acute CHF, component possible COPD exacerbation (from prior secondhand smoke exposure) and fluid volume overload with chronic renal failure; known aortic stenosis; no evidence of acute myocardial infarction; does not rule in for true sepsis but tooth abscess with reported, fever reported prior to admission possibly contributing to decompensation. 2. Tooth Abscess right lower jaw, most posterior molar. 3. Chronic renal failure, GFR 17; Stage G4 4. Diabetes Mellitus with hyperglycemia exacerbated by steroid therapy. 5. Chronic back pain with prior surgeries of lumbar and thoracic spine. 6. Hypertension 7. Seasonal allergies 8. Accelerated hypertension, multifactorial 9. History of atrial fibrillation per patient and family, currently NSR with a bifasicular block , same as EKG from last year 10. Chronic peripheral neuropathy 11. Normocytic, Normochromic anemia, chronic with likely component of ESRD ; daughter states normal is around 11 12. Leukocytosis likely secondary to tooth abscess 13. Hematuria for outpatient follow-up with nephrology after discharge. 14. Protein Calorie Malnutrition 15. Obesity 16. Hyperkalemia likely secondary to chronic renal failure, kayexalate and insulin given in ER Plan: 1. Hold Eliquis as patient supposed to be off for surgical intervention of tooth on Monday, will start Lovenox at HS for DVT prophylaxis. Did receive one therapeutic dose in ER for possible PE while undergoing workup. Clinical suspicion for this is not high and therefore will not continue Levy therapeutic Lovenox only prophylactic dose. 2. Additional Lantus 10 units given along with scheduled Humalog with meals ordered. Humalog scale in place. 3. Home medications reconciled for all above diagnoses to be addressed. 4. IV Lasix ordered to address volume overload and hypertension and will monitor. 5. Patient placed on Unasyn for abscess of tooth given history of associated fever and chills. 6. One time peak flow to assess status. 7. Repeat elytes this afternoon and in am. 8. Pulmonary and cardiology consulted 9. Await 3rd troponin 10. Echocardiogram ordered to assess cardiac function and valve status. Patient and daughter indicate that her code status is FULL CODE and she has advanced directives for the chart.
[2016-12-25] MEDS ORDERED: MD COMMUNICATION TO PHARMACY 1 EACH MISC PO PRN (11:18)
[2016-12-25 11:20] LABS: Creatine Kinase 26 U/L (30-135)
[2016-12-25] MEDS ORDERED: AMOXIC-POT CLAV 500-125 MG 1 EACH TAB PO SCH (11:30)
[2016-12-25 11:34] LABS: Troponin I <0.012 ng/mL (0.000-0.034)
--- NOTE | 2016-12-25 12:09 | P.CNPUL ---
History of Present Illness Consult date: 12/25/16 Reason for consult: dyspnea, hypoxemia, pleural effusion, abnormal CXR/CT Chief complaint: Shortness of breath History of present illness: Consult dated 12/25/2016 This is a 71-year-old female who was admitted with a diagnosis of shortness of breath. Denies much in the way of cough or phlegm production. Not much in check his way of chest pain. The patient did have some mild chest discomfort. No fever no chills. No headache. No diaphoresis. The patient states she's recently gained weight. Around her midsection. Denies any orthopnea is more nocturnal dyspnea. She was seen in the ER admitted with a diagnosis of heart failure. She does not have any underlying lung disease. Lifelong nonsmoker. No established history of sleep apnea syndrome. Really nothing to suggest pneumonia per se. No history of any asthma or COPD. Again lifelong nonsmoker. Feeling much better now. Only received 20 of Lasix in the emergency department. Received 80 mg here. BNP is elevated. Her chest x-rays consistent with heart failure. VQ scan was indeterminate. I'm not sure why it was done. Dopplers of lower extremities were negative. She was seen in the ER December 24 and admitted to the ICU on December 25 which is today. Review of Systems A 12 point review of system is positive for shortness of breath and weight gain. The rest of the review of system is unremarkable. Past Medical History Past Medical History: Atrial Fibrillation, Coronary Artery Disease (CAD) (four affected vessels per daughter; have been offered stent, etc. but refusing as concerned about worsening of renal failure with contrast for procedure), Heart Failure (chronic; dialysis dependent in past in 2014 for a few weeks post op), Diabetes Mellitus, GERD/Reflux, Hyperlipidemia, Hypertension, Myocardial Infarction (VT) (times 2, one 2015, one 07/2014), Pneumonia, Renal Disease, Skin Disorder (sacral wound), Sleep Apnea/CPAP/BIPAP Additional Past Medical History / Comment(s): undiagnosed sleep apnea. chronic kidney disease diangosed may 2015; aortic stenois ; peripheral neuropathy upper and lower extremity Last Myocardial Infarction Date:: 05/28/2015 History of Any Multi-Drug Resistant Organisms: MRSA Date of last positivie culture/infection: 2009 MDRO Source:: wounds Past Surgical History: Back Surgery, Cholecystectomy, Heart Catheterization ( known quadruple vessel disease per daughter report), Hysterectomy (with BSO for bleeding, no carcinoma history) Additional Past Surgical History / Comment(s): Lumbar surgery with decompression off L3-L4 L4-L5 with fusion March 2011 with previous hardware failure L4-L5 and extension of fusion to S1. new back sugery including t8 and t9 Past Anesthesia/Blood Transfusion Reactions: No Reported Reaction Additional Past Anesthesia/Blood Transfusion Reaction / Comment(s): Possible confusion that resolved. Smoking Status: Never smoker (exposed to second hand smoke with ) Past Drug Use History: None Reported - Past Family History Father Additional Family Medical History / Comment(s): Brain aneurysm ; age 72 Sister(s) Family Medical History: Hypertension Additional Family Medical History / Comment(s): Aortic stenosis; mitral valve disease Mother Family Medical History: AFIB, CVA/TIA, Hypertension Additional Family Medical History / Comment(s): mother age 83 Daughter(s) Family Medical History: Asthma Son(s) Family Medical History: Asthma Medications and Allergies Home Medications Medication Instructions Recorded Confirmed Type DULoxetine HCL [Cymbalta] 60 mg PO DAILY 08/04/14 12/25/16 History Fish Oil/Dha/Epa [Fish Oil 1,200 1 cap PO MOWEFR 08/04/14 12/25/16 History mg Fish Oil] Insulin Glargine [Lantus] 30 units SQ HS 08/04/14 12/25/16 History Acetaminophen Tab [Tylenol] 650 mg PO Q6H PRN 05/29/15 12/25/16 History Amiodarone HCl [Pacerone] 100 mg PO DAILY 11/22/15 12/25/16 History Apixaban [Eliquis] 2.5 mg PO BID 11/22/15 12/25/16 History Aspirin EC [Ecotrin Low Dose] 81 mg PO HS 11/22/15 12/25/16 History Cetirizine HCl [Zyrtec] 10 mg PO DAILY 11/22/15 12/25/16 History Cholecalciferol [Vitamin D3] 2,000 unit PO HS 11/22/15 12/25/16 History Cyclobenzaprine [Flexeril] 2.5 - 5 mg PO HS PRN 11/22/15 12/25/16 History Docusate [Colace] 100 mg PO BID 11/22/15 12/25/16 History Ezetimibe [Zetia] 10 mg PO DAILY 11/22/15 12/25/16 History Isosorbide Mononitrate ER [Imdur] 30 mg PO DAILY 11/22/15 12/25/16 History Magnesium Oxide [Mag-Ox] 400 mg PO HS 11/22/15 12/25/16 History Metoprolol Tartrate 50 mg PO BID 11/22/15 12/25/16 History NIFEdipine [NIFEdipine ER] 30 mg PO DAILY 11/22/15 12/25/16 History Cranberry 4200mg-Vitamin C 1 tab PO DAILY 12/25/16 12/25/16 History Furosemide [Lasix] 20 mg PO DAILY 12/25/16 12/25/16 History Glimepiride [Amaryl] 2 mg PO DAILY 12/25/16 12/25/16 History Omeprazole 20 mg PO DAILY 12/25/16 12/25/16 History Penicillin V Potassium [Pen Vee K] 500 mg PO Q6HR 12/25/16 12/25/16 History Polyethylene Glycol 3350 [Miralax] 17 gm PO DAILY 12/25/16 12/25/16 History Allergies Allergy/AdvReac Type Severity Reaction Status Date / Time KUSHAL Inhibitors Allergy Unknown Verified 12/25/16 07:50 ARB-Angiotensin Receptor Allergy Unknown Verified 12/25/16 07:50 Antagonist cephalexin monohydrate Allergy Rash/Hives Verified 12/25/16 07:50 [From Keflex] moexipril HCl [From Univasc] Allergy Unknown Verified 12/25/16 07:50 propoxyphene HCl Allergy Unknown Verified 12/25/16 07:50 [From Darvon] Hsgxexs-Pvf-Crz Reductase Allergy Unknown Verified 12/25/16 07:50 Inhibitor Physical Exam Osteopathic Statement: *. No significant issues noted on an osteopathic structural exam other than those noted in the History and Physical/Consult. Vitals: Vital Signs Temp Pulse Pulse Resp BP BP Pulse Ox 12/25/16 10:30 97.9 F 94 20 181/81 97 12/25/16 09:30 94 20 12/25/16 08:56 95 12/25/16 08:47 97.1 F L 90 22 176/79 96 12/25/16 07:24 95 20 175/79 95 12/25/16 07:02 94 18 168/75 98 12/25/16 04:20 95 18 154/71 96 12/25/16 01:50 95 20 174/73 97 12/25/16 00:00 96 18 183/78 99 12/24/16 23:41 95 12/24/16 23:26 97 12/24/16 23:03 97.6 F 99 22 126/62 95 Intake and Output 12/24/16 12/25/16 12/25/16 22:59 06:59 14:59 Intake Total 50 Balance 50 Intake: Oral 50 Other: Voiding Method Diaper Incontinent Weight 94.347 kg 99.2 kg Patient Weight 12/26/16 06:59 Weight 99.2 kg No acute distress, lying flat. Nasal O2 in place. HEENT examination is grossly unremarkable. Mucous membranes are moist. No oral lesions. Neck supple. Full range of motion. No adenopathy or thyromegaly. Neck veins are flat. Cardiovascular examination reveals distant heart sounds. S1-S2 normal. No distinct murmur. No S3 or S4 noted. Lungs reveal some bibasilar crackles. Breath sounds are diminished. No wheezes or rhonchi. Abdomen is obese. Bowel sounds are heard. Extremities are intact. Mild 1+ edema. Skin without rash. Neurologic examination is nonfocal. Results - Laboratory Findings CBC and BMP: 12/24/16 23:08 12/24/16 23:08 ABG ABG pH 7.32 (7.35-7.45) L 12/24/16 23:30 ABG pCO2 48 mmHg (35-45) H 12/24/16 23:30 ABG pO2 87 mmHg (83-108) 12/24/16 23:30 ABG O2 Saturation 96.0 % (94-97) 12/24/16 23:30 PT/INR, D-dimer PT 10.5 sec (9.0-12.0) 12/24/16 23:08 INR 1.0 (<1.2) 12/24/16 23:08 D-Dimer 1.54 mg/L FEU (<0.60) H 12/24/16 23:08 Abnormal lab findings: Abnormal Labs 12/24/16 12/24/16 12/24/16 23:08 23:08 23:08 WBC 11.5 H RBC 3.45 L Hgb 10.3 L Hct 32.6 L Neutrophils # 8.6 H Eosinophils # 0.9 H D-Dimer 1.54 H ABG pH ABG pCO2 ABG Total CO2 Potassium 5.7 H BUN 39 H Creatinine 2.80 H Glucose 349 H POC Glucose (mg/dL) AST 44 H Alkaline Phosphatase 172 H Total Creatine Kinase Albumin 3.2 L Urine Protein Urine Glucose (UA) Urine Blood Urine RBC Urine Bacteria Hyaline Casts Urine Mucus 12/24/16 12/25/16 12/25/16 23:30 00:01 05:32 WBC RBC Hgb Hct Neutrophils # Eosinophils # D-Dimer ABG pH 7.32 L ABG pCO2 48 H ABG Total CO2 25 H Potassium BUN Creatinine Glucose POC Glucose (mg/dL) AST Alkaline Phosphatase Total Creatine Kinase 25 L Albumin Urine Protein 3+ H Urine Glucose (UA) 4+ H Urine Blood Small H Urine RBC 28 H Urine Bacteria Rare H Hyaline Casts 13 H Urine Mucus Rare H 12/25/16 12/25/16 12/25/16 08:43 09:35 10:39 WBC RBC Hgb Hct Neutrophils # Eosinophils # D-Dimer ABG pH ABG pCO2 ABG Total CO2 Potassium BUN Creatinine Glucose POC Glucose (mg/dL) 305 H 287 H AST Alkaline Phosphatase Total Creatine Kinase 26 L Albumin Urine Protein Urine Glucose (UA) Urine Blood Urine RBC Urine Bacteria Hyaline Casts Urine Mucus - Diagnostic Findings Chest x-ray: image reviewed U/S of Legs: report reviewed (Chest x-ray labs and medications are all reviewed. ) Assessment and Plan (1) Obesity Status: Acute (2) Diabetes mellitus Status: Acute (3) Chronic kidney disease Status: Acute (4) Acute on chronic renal failure Status: Acute (5) Acute pulmonary edema Status: Acute (6) Acute respiratory failure Status: Acute (7) Congestive heart failure Status: Acute Plan: Plan dated 12/25/2016 The patient had an elevated BNP of 4900. His VQ scan was indeterminate as expected. Dopplers of the lower semis were negative. The patient had a chest x -ray that was consistent with heart failure. No history of sleep apnea. No history of any intrinsic pulmonary disease. Lifelong nonsmoker. The patient will be treated primarily with oxygen therapy breathing treatments and diuretics. No need for antibiotics. Additional recommendations are made. Medications labs and x-rays are all reviewed. Time with Patient: Greater than 30
[2016-12-25 12:20] LABS: Glucose,Whole Blood 249 mg/dL (75-99)
[2016-12-25] MEDS ORDERED: REPAGLINIDE 1 MG TAB PO SCH ×2 (12:30→17:30)
[2016-12-25] MEDS ORDERED: POLYETHYLENE GLYCOL 3350 17 GM POWD.PACK PO PRN (12:58)
[2016-12-25] MEDS ORDERED: BENZOCAINE/MENTHOL LOZENG 1 EACH LOZENGE MUCOUS MEM PRN (12:59)
[2016-12-25] MEDS ORDERED: NIFEdipine XL 30 MG TAB.ER.24 PO STA (13:06)
[2016-12-25] MEDS: AMPICILLIN-SULBACTAM 1.5 GM in SODIUM CHLORIDE 0.9% 50 ML IVPB SCH ×2 (13:15→21:17)
[2016-12-25] MEDS: INSULIN LISPRO (humaLOG) 300 UNIT/3 ML VIAL SQ SCH ×5 (13:15→21:18)
--- NOTE | 2016-12-25 13:23 | P.CRDCN ---
History of Present Illness Consult reason: hypertension, congestive heart failure History of present illness: Patient presented with shortness of breath while sitting of fairly sudden onset. A chest x-ray was abnormal and yet a VQ scan was done which shows intermediate probability for pulmonary embolism She received IV Lasix with improvement. She denied any chest pain other than a vague discomfort that was quite brief No loss of consciousness Review of systems: No fever chills or rigors, no cough, phlegm or expectoration , no nausea, vomiting or diarrhea, no hematuria, dysuria, no musculoskeletal complaints, no strokes or seizures, no skin lesions. Past history of atrial fibrillation currently on 100 mg by mouth of amiodarone him a coronary artery disease, chronic kidney disease, heart failure I don't LV function at this time adult-onset diabetes, obesity, hypertension, dyslipidemia , sleep apnea using a BiPAP mask Past surgical history reviewed Medication list at home reviewed ALLERGY list reviewed 12 ECG shows sinus rhythm right bundle branch block left anterior fascicular block normal GA On examination her blood pressure is elevated but it was normal when she first arrived in the ER. 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 Further management per admitting physician regarding Fabrizio Jeffers status and pulmonary embolism From a cardiac standpoint she has already received an extra dose of IV Lasix and I will add Procardia XL 30 mrem daily to make him a total of 60 mg to be given once daily. Continue beta blockers Blood pressure control with Procardia XL along with beta blockers Past Medical History Past Medical History: Atrial Fibrillation, Coronary Artery Disease (CAD) (four affected vessels per daughter; have been offered stent, etc. but refusing as concerned about worsening of renal failure with contrast for procedure), Heart Failure (chronic; dialysis dependent in past in 2014 for a few weeks post op), Diabetes Mellitus, GERD/Reflux, Hyperlipidemia, Hypertension, Myocardial Infarction (OR) (times 2, one 2015, one 07/2014), Pneumonia, Renal Disease, Skin Disorder (sacral wound), Sleep Apnea/CPAP/BIPAP Additional Past Medical History / Comment(s): possible sleep apnea, no established diagnosis, chronic kidney disease diangosed may 2015; aortic stenois ; peripheral neuropathy upper and lower extremity Last Myocardial Infarction Date:: 05/28/2015 History of Any Multi-Drug Resistant Organisms: MRSA Date of last positivie culture/infection: 2009 MDRO Source:: wounds Past Surgical History: Back Surgery, Cholecystectomy, Heart Catheterization ( known quadruple vessel disease per daughter report), Hysterectomy (with BSO for bleeding, no carcinoma history) Additional Past Surgical History / Comment(s): Lumbar surgery with decompression off L3-L4 L4-L5 with fusion March 2011 with previous hardware failure L4-L5 and extension of fusion to S1. new back sugery including t8 and t9 Past Anesthesia/Blood Transfusion Reactions: No Reported Reaction Additional Past Anesthesia/Blood Transfusion Reaction / Comment(s): Possible confusion that resolved. Smoking Status: Never smoker (exposed to second hand smoke with ) Past Drug Use History: None Reported - Past Family History Father Additional Family Medical History / Comment(s): Brain aneurysm ; age 72 Sister(s) Family Medical History: Hypertension Additional Family Medical History / Comment(s): Aortic stenosis; mitral valve disease Mother Family Medical History: AFIB, CVA/TIA, Hypertension Additional Family Medical History / Comment(s): mother age 83 Daughter(s) Family Medical History: Asthma Son(s) Family Medical History: Asthma Medications and Allergies Home Medications Medication Instructions Recorded Confirmed Type RX: DULoxetine HCL [Cymbalta] 60 mg PO DAILY 08/04/14 12/25/16 History RX: Fish Oil/Dha/Epa [Fish Oil 1 cap PO MOWEFR 08/04/14 12/25/16 History 1,200 mg Fish Oil] RX: Insulin Glargine [Lantus] 30 units SQ HS 08/04/14 12/25/16 History RX: Acetaminophen Tab [Tylenol] 650 mg PO Q6H PRN 05/29/15 12/25/16 History RX: Amiodarone HCl [Pacerone] 100 mg PO DAILY 11/22/15 12/25/16 History RX: Apixaban [Eliquis] 2.5 mg PO BID 11/22/15 12/25/16 History RX: Aspirin EC [Ecotrin Low Dose] 81 mg PO HS 11/22/15 12/25/16 History RX: Cetirizine HCl [Zyrtec] 10 mg PO DAILY 11/22/15 12/25/16 History RX: Cholecalciferol [Vitamin D3] 2,000 unit PO HS 11/22/15 12/25/16 History RX: Cyclobenzaprine [Flexeril] 2.5 - 5 mg PO HS PRN 11/22/15 12/25/16 History RX: Docusate [Colace] 100 mg PO BID 11/22/15 12/25/16 History RX: Ezetimibe [Zetia] 10 mg PO DAILY 11/22/15 12/25/16 History RX: Isosorbide Mononitrate ER 30 mg PO DAILY 11/22/15 12/25/16 History [Imdur] RX: Magnesium Oxide [Mag-Ox] 400 mg PO HS 11/22/15 12/25/16 History RX: Metoprolol Tartrate 50 mg PO BID 11/22/15 12/25/16 History RX: NIFEdipine [NIFEdipine ER] 30 mg PO DAILY 11/22/15 12/25/16 History Cranberry 4200mg-Vitamin C 1 tab PO DAILY 12/25/16 12/25/16 History Furosemide [Lasix] 20 mg PO DAILY 12/25/16 12/25/16 History Glimepiride [Amaryl] 2 mg PO DAILY 12/25/16 12/25/16 History Penicillin V Potassium [Pen Vee K] 500 mg PO Q6HR 12/25/16 12/25/16 History Polyethylene Glycol 3350 [Miralax] 17 gm PO DAILY 12/25/16 12/25/16 History RX: Omeprazole 20 mg PO DAILY 12/25/16 12/25/16 History Allergies Allergy/AdvReac Type Severity Reaction Status Date / Time KUSHAL Inhibitors Allergy Unknown Verified 12/25/16 07:50 ARB-Angiotensin Receptor Allergy Unknown Verified 12/25/16 07:50 Antagonist cephalexin monohydrate Allergy Rash/Hives Verified 12/25/16 07:50 [From Keflex] propoxyphene HCl Allergy Unknown Verified 12/25/16 07:50 [From Darvon] Uyrlrpb-Dqi-Veg Reductase Allergy Unknown Verified 12/25/16 07:50 Inhibitor Physical Exam Vitals: Vital Signs Temp Pulse Pulse Resp BP BP Pulse Ox 12/25/16 12:24 92 12/25/16 12:11 90 12/25/16 12:00 98.1 F 92 15 189/81 95 12/25/16 11:30 92 22 181/81 12/25/16 11:00 93 16 181/81 12/25/16 10:30 97.9 F 94 94 49 H 169/78 181/81 96 12/25/16 10:00 94 16 169/78 96 12/25/16 09:31 81 L 12/25/16 09:30 94 20 12/25/16 08:56 95 12/25/16 08:47 97.1 F L 90 22 176/79 96 12/25/16 07:24 95 20 175/79 95 12/25/16 07:02 94 18 168/75 98 12/25/16 04:20 95 18 154/71 96 12/25/16 01:50 95 20 174/73 97 12/25/16 00:00 96 18 183/78 99 12/24/16 23:41 95 12/24/16 23:26 97 12/24/16 23:03 97.6 F 99 22 126/62 95 Intake and Output 12/24/16 12/25/16 12/25/16 22:59 06:59 14:59 Intake Total 50 Balance 50 Intake: Oral 50 Other: Voiding Method Diaper Incontinent Weight 94.347 kg 99.2 kg Patient Weight 12/26/16 06:59 Weight 99.2 kg Results 12/24/16 23:08 12/24/16 23:08 Cardiac Enzymes 12/24/16 12/24/16 12/25/16 Range/Units 23:08 23:08 05:32 AST 44 H (14-36) U/L CK-MB (CK-2) 1.3 1.1 (0.0-2.4) ng/mL Troponin I <0.012 <0.012 (0.000-0.034) ng/mL 12/25/16 Range/Units 10:39 AST (14-36) U/L CK-MB (CK-2) 1.0 (0.0-2.4) ng/mL Troponin I <0.012 (0.000-0.034) ng/mL Coagulation 12/24/16 Range/Units 23:08 PT 10.5 (9.0-12.0) sec APTT 25.5 (22.0-30.0) sec CBC 12/24/16 Range/Units 23:08 WBC 11.5 H (3.8-10.6) k/uL RBC 3.45 L (3.80-5.40) m/uL Hgb 10.3 L (11.4-16.0) gm/dL Hct 32.6 L (34.0-46.0) % Plt Count 247 (150-450) k/uL Comprehensive Metabolic Panel 12/24/16 Range/Units 23:08 Sodium 138 (137-145) mmol/L Potassium 5.7 H (3.5-5.1) mmol/L Chloride 105 (98-107) mmol/L Carbon Dioxide 23 (22-30) mmol/L BUN 39 H (7-17) mg/dL Creatinine 2.80 H (0.52-1.04) mg/dL Glucose 349 H (74-99) mg/dL Calcium 8.7 (8.4-10.2) mg/dL AST 44 H (14-36) U/L ALT 39 (9-52) U/L Alkaline Phosphatase 172 H (38-126) U/L Total Protein 6.5 (6.3-8.2) g/dL Albumin 3.2 L (3.5-5.0) g/dL Current Medications Generic Name Dose Route Start Last Admin Trade Name Freq PRN Reason Stop Dose Admin Acetaminophen 650 mg 12/25/16 00:42 Tylenol Tab PO Q6H PRN Fever Albuterol Sulfate 2.5 mg 12/25/16 00:45 Ventolin Nebulized INHALATION RT-QID PRN Shortness Of Breath Or Wheezing Alprazolam 0.25 mg 12/25/16 00:42 Xanax PO DAILY PRN Anxiety Amiodarone HCl 100 mg 12/25/16 09:00 12/25/16 08:34 Cordarone PO 100 mg DAILY JONEL Administration Aspirin 325 mg 12/26/16 09:00 Aspirin PO DAILY [facility] Benzocaine/Menthol 1 each 12/25/16 12:59 Cepacol Lozenge MUCOUS MEM Q4HR PRN Sore Throat Cholecalciferol 2,000 unit 12/25/16 09:00 12/25/16 08:35 Vitamin D3 PO 2,000 unit DAILY JONEL Administration Cyclobenzaprine HCl 2.5 - 5 mg 12/25/16 10:51 Flexeril PO HS PRN Muscle Pain Docusate Sodium 100 mg 12/25/16 09:00 12/25/16 08:35 Colace PO 100 mg BID JONEL Administration Duloxetine HCl 60 mg 12/25/16 09:00 12/25/16 08:36 Cymbalta PO 60 mg DAILY [facility] Administration Ezetimibe 10 mg 12/25/16 09:00 12/25/16 08:36 Zetia PO 10 mg DAILY [facility] Administration Enoxaparin Sodium 30 mg 12/25/16 21:00 Lovenox SQ HS [facility] Famotidine 20 mg 12/25/16 09:00 12/25/16 08:36 Pepcid PO 20 mg DAILY JONEL Administration Furosemide 40 mg 12/25/16 21:00 Lasix IV Q12HR [facility] Gabapentin 300 mg 12/25/16 09:00 12/25/16 08:37 Neurontin PO 300 mg BID JONEL Administration Glimepiride 2 mg 12/26/16 07:30 Amaryl PO AC-BRKFST [facility] Ampicillin Sodium/Sulbactam 50 mls @ 100 mls/hr 12/25/16 12:00 12/25/16 13:15 Sodium 1.5 gm/ Sodium Chloride IVPB 100 mls/hr Q12HR JONEL Administration Insulin Glargine 30 unit 12/25/16 21:00 Lantus SQ HS [facility] Insulin Human Lispro 0 unit 12/25/16 12:30 12/25/16 13:15 Humalog SQ 4 unit ACHS [facility] Administration Protocol Insulin Human Lispro 8 unit 12/25/16 12:30 12/25/16 13:15 Humalog SQ 12/25/16 21:00 8 unit AC-TID JONEL Administration Isosorbide Mononitrate 30 mg 12/25/16 09:00 12/25/16 08:37 Imdur PO 30 mg DAILY JONEL Administration Loratadine 10 mg 12/25/16 09:00 12/25/16 08:37 Claritin PO 10 mg DAILY [facility] Administration Magnesium Oxide 400 mg 12/25/16 21:00 Mag-Ox PO HS [facility] Metoprolol Tartrate 50 mg 12/25/16 09:00 12/25/16 08:38 Lopressor PO 50 mg BID [facility] Administration Nifedipine 60 mg 12/26/16 09:00 Procardia Xl PO DAILY [facility] Nitroglycerin 0.4 mg 12/25/16 00:39 Nitrostat SUBLINGUAL Q5M PRN Chest Pain Non-Formulary Medication 1.8 mg 12/25/16 09:00 Liraglutide [Victoza 3-Manuel] SQ DAILY [facility] Pantoprazole Sodium 40 mg 12/26/16 07:30 Protonix PO AC-BRKFST [facility] Polyethylene Glycol 17 gm 12/25/16 12:58 Miralax PO DAILY PRN Constipation Repaglinide 1 mg 12/25/16 17:30 Prandin PO AC-SUPPER [facility] Repaglinide 1 mg 12/25/16 12:30 12/25/16 13:16 Prandin PO 1 mg AC-LUNCH [facility] Administration Tramadol HCl 50 mg 12/25/16 00:42 Ultram PO Q4H PRN Pain Intake and Output 12/24/16 12/25/16 12/25/16 22:59 06:59 14:59 Intake Total 50 Balance 50 Intake: Oral 50 Other: Voiding Method Diaper Incontinent Weight 94.347 kg 99.2 kg Patient Weight 12/26/16 06:59 Weight 99.2 kg 12/24/16 23:08 12/24/16 23:08
[2016-12-25 13:50] LABS: Hemoglobin A1C 7.6 % (4.2-6.1)
[2016-12-25 15:38] LABS: Glucose,Whole Blood 300 mg/dL (75-99)
--- NOTE | 2016-12-25 15:49 | P.PN ---
Progress Note - Text Received a call from the RN regarding lab call of 12 blood cultures positive for gram positive bacilli. Await further identification to determine if related to tooth abscess or another root cause (or even false positive skin contaminant with corynebacterium or the like). Patient on Unasyn. Echocardiogram already ordered for other symptoms prior so await that as well. With clinical improvement, would not change antibiotic until further identification or rec. from Infectious Disease. Infectious Disease not covered this weekend but will leave consult for evaluation tomorrow.
[2016-12-25] MEDS ORDERED: INSULIN REGULAR 100 UNIT/ML VIAL IV ONE (15:58)
[2016-12-25] MEDS: ALBUTEROL NEBULIZED 2.5 MG/3 ML INHALATION PRN ×2 (16:00→20:17)
--- NOTE | 2016-12-25 16:48 | P.PN ---
Progress Note - Text Labs rechecked. Potassium remains high. Additional Kayexalate ordered. Insulin IV ordered. As glucose remains greater than 250 will not need to give glucose. Accuchecks ordered to follow. Glucose will likely drop significantly off of steroid. Pulmonary indicates diagnosis strictly heart failure not COPD and has discontinued steroid. Repeat potassium after treatment. Discussed orders with nurse. Will hold oral hypoglycemics while on scheduled insulin and scale. Patient reported to have diuresed significantly with AM lasix. Check repeat am CXR.
[2016-12-25 17:23] LABS: Glucose,Whole Blood 244 mg/dL (75-99)
[2016-12-25 20:37] LABS: Glucose,Whole Blood 230 mg/dL (75-99)
[2016-12-25] MEDS ORDERED: NON-FORMULARY DRUG (Aspirin Ec 81 MG) PO SCH (21:00)
[2016-12-25] MEDS ORDERED: INSULIN GLARGINE 100 UNIT/ML 10 ML VIAL SQ SCH ×2 (21:00)
[2016-12-25] MEDS: FUROSEMIDE 10 MG/ML 4 ML VIAL IV SCH (21:18)
[2016-12-25] MEDS: MAGNESIUM OXIDE 400 MG TAB PO SCH (21:18)
[2016-12-25] MEDS: ENOXAPARIN 30 MG/0.3 ML SYRINGE SQ SCH (21:18)
[2016-12-25] MEDS: INSULIN GLARGINE 100 UNIT/ML 10 ML VIAL SQ SCH (21:33)
[2016-12-26 02:36] LABS: Glucose,Whole Blood 201 mg/dL (75-99)
[2016-12-26 05:36] LABS: Glucose,Whole Blood 158 mg/dL (75-99)
[2016-12-26 06:52] LABS: CH 30.3; CHCM 32.5; HCT 28.5 % (34.0-46.0); HDW 2.86; MCH 29.6 pg (25.0-35.0); MCHC 31.5 g/dL (31.0-37.0); MCV 93.8 fL (80.0-100.0); Mean Platelet Volume 9.1; RBC 3.04 m/uL (3.80-5.40); WBC 10.4 k/uL (3.8-10.6)
[2016-12-26] MEDS: PANTOPRAZOLE 40 MG TABLET PO SCH (06:52)
[2016-12-26] MEDS: INSULIN LISPRO (humaLOG) 300 UNIT/3 ML VIAL SQ SCH ×4 (06:52→22:27)
[2016-12-26 06:59] LABS: Calcium 9.1 mg/dL (8.4-10.2); Magnesium 1.8 mg/dL (1.6-2.3); Potassium 4.6 mmol/L (3.5-5.1)
--- NOTE | 2016-12-26 07:26 | XR ---
EXAMINATION TYPE: XR chest 1V DATE OF EXAM: 12/26/2016 COMPARISON: 12/24/2016 HISTORY: Pulmonary edema follow-up examination TECHNIQUE: Single frontal view of the chest is obtained. FINDINGS: Previously seen mild pulmonary edema has entirely resolved in the interim. There are low l lucinda volumes, slightly accentuating the pulmonary vasculature. Left basilar opacity has also improved with clear remaining diaphragm visualization on today's examination. Calcified granulomas are seen of the left hilum. Cardia mediastinal silhouette is slightly exaggerated by degree of inspiration but o verall stable. Partial visualization of lumbar fixation device. IMPRESSION: Resolved previously seen mild pulmonary edema and left basilar consolidation.
[2016-12-26] MEDS ORDERED: GLIMEPIRIDE 2 MG TAB PO SCH (07:30)
[2016-12-26] MEDS: ALBUTEROL NEBULIZED 2.5 MG/3 ML INHALATION PRN ×4 (07:42→20:44)
[2016-12-26] MEDS: GABAPENTIN 300 MG CAP PO SCH ×2 (07:58→20:11)
[2016-12-26] MEDS: METOPROLOL TARTRATE 50 MG TAB PO SCH (07:58)
[2016-12-26] MEDS: DULoxetine HCL 60 MG CAPSULE.DR PO SCH (07:59)
[2016-12-26] MEDS: FUROSEMIDE 10 MG/ML 4 ML VIAL IV SCH (07:59)
[2016-12-26] MEDS: ISOSORBIDE MONONITRATE ER 30 MG TAB.ER.24H PO SCH (07:59)
[2016-12-26] MEDS: DOCUSATE 100 MG CAP PO SCH ×2 (07:59→20:11)
[2016-12-26] MEDS: LORATADINE 10 MG TAB PO SCH (07:59)
[2016-12-26] MEDS: FAMOTIDINE 20 MG TAB PO SCH (07:59)
[2016-12-26] MEDS: EZETIMIBE 10 MG TAB PO SCH (07:59)
[2016-12-26] MEDS: CHOLECALCIFEROL 1,000 UNIT TAB PO SCH (07:59)
[2016-12-26] MEDS: AMIODARONE 100 MG TAB PO SCH (07:59)
[2016-12-26] MEDS ORDERED: POLYETHYLENE GLYCOL 3350 17 GM POWD.PACK PO SCH (09:00)
[2016-12-26] MEDS ORDERED: ASPIRIN 325 MG TAB PO SCH (09:00)
[2016-12-26] MEDS ORDERED: CRANBERRY 4200 MG PO SCH (09:00)
[2016-12-26] MEDS ORDERED: [UNRECOGNIZED DRUG - OTHER] PO SCH (09:00)
[2016-12-26] MEDS: AMPICILLIN-SULBACTAM 1.5 GM in SODIUM CHLORIDE 0.9% 50 ML IVPB SCH ×2 (09:20→20:10)
[2016-12-26] MEDS ORDERED: NON-FORMULARY DRUG (Fish Oil/Dha/Epa [Fish Oil 1,200 Mg Fish Oil] 1 CAP) PO SCH (10:51)
--- NOTE | 2016-12-26 11:39 | P.CONS ---
History of Present Illness - Reason for Consult Consult date: 12/26/16 Gram-positive bacilli bacteremia - History of Present Illness This is a 71-year-old female known to ID service as she was treated for a MRSA soft tissue skin infection approximately 5 years ago. She states that she went to the dentist on Monday at 3 in the afternoon for a filling of a tooth on the right top and then by the time she was home she found an abscess on the lower right side. She went back to her dentist the following day and there was fluid collection at this area which was aspirated and suctioned out by her dentist and she was given a prescription for penicillin which she did not start with plan to have her return on Monday of this week to have this tooth pulled. On Monday, she developed shortness of breath for 2 hours but had been feeling fatigued, tired with heaviness in her chest for most of the week. She came into [facility] emergency center where she had a chest x-ray that did show perihilar edema. D-dimer was elevated and she underwent a VQ scan which was intermediate probability. Lower extremity duplex was negative for DVT. She was started on IV Lasix and admitted to the selective care unit and has seen cardiology as well as pulmonary medicine in consultation. Blood culture obtained in the emergency center is showing bacillus species not anthracis. Repeat blood culture was drawn this morning. Patient also complains of bladder infection that has been going on since July 2016. She states she has been on continuous antibiotics except for 2 months since then. She follows with a nurse practitioner at Dr. Botello's office. She does state she has a little burning at this time. Her urinalysis is clear, blood small, RBCs 28, bacteria rare, nitrate and leukoesterase are negative. No urine culture was obtained. Patient also gives history of going to [facility] in June 2015 for back surgery and subsequently had an myocardial infarction. She underwent a heart catheterization which damage her kidneys and she has chronic kidney disease stage 4. She also was found to have atrial fibrillation at that time and was placed on amiodarone and eliquis. Patient states that she was falling on a daily basis and had significant pain that kept her bed ridden prior to the back surgery. She now states that she can pivot to a wheelchair and pain is much improved. She fell one week ago while pivoting to her wheelchair as she lost her balance. She laid on the floor until her daughter and grandson could come to the home and help her up. She did not seek any treatment at the time did not feel she had any injury that required treatment. Regarding her breathing, she states she is still a little short of breath. She is currently on oxygen at 4 L nasal cannula and pulse oxing 97%. This is improved as she was previously on BiPAP therapy. She does not have home oxygen. Her lower extremity edema is much improved but she continues to have some edema around her abdomen and neck area. She denies having a sleep study done in the past but does state that she is usually fatigued during the day and tired. Her daughter has been living with her for the past year or more and just moved out a couple weeks ago. Family is looking into getting her an alert button for home. Review of Systems All systems: negative Constitutional: Reports fatigue, Reports malaise, Reports weakness, Denies chills, Denies fever Eyes: denies blurred vision, denies pain Ears, nose, mouth and throat: Reports dental pain, Reports mouth pain, Denies headache, Denies sore throat Cardiovascular: Reports chest pain, Reports decreased exercise tolerance, Reports dyspnea on exertion, Reports edema, Reports leg edema, Reports shortness of breath, Denies lightheadedness, Denies syncope Respiratory: Reports dyspnea, Denies cough, Denies cough with sputum, Denies excessive sputum, Denies hemoptysis, Denies home oxygen Gastrointestinal: Denies abdominal pain, Denies diarrhea, Denies nausea, Denies vomiting Genitourinary: Denies dysuria, Denies hematuria Musculoskeletal: Denies myalgias Integumentary: Denies pruritus, Denies rash Neurological: Denies numbness, Denies weakness Psychiatric: Denies anxiety, Denies depression Endocrine: Denies fatigue, Denies weight change Past Medical History Past Medical History: Atrial Fibrillation, Coronary Artery Disease (CAD) (four affected vessels per daughter; have been offered stent, etc. but refusing as concerned about worsening of renal failure with contrast for procedure), Heart Failure (chronic; dialysis dependent in past in 2014 for a few weeks post op), Diabetes Mellitus, GERD/Reflux, Hyperlipidemia, Hypertension, Myocardial Infarction ([place]) (times 2, one 2015, one 07/2014), Pneumonia, Renal Disease ( chronic, stage 4), Skin Disorder (sacral wound), Sleep Apnea/CPAP/BIPAP Additional Past Medical History / Comment(s): possible sleep apnea, no established diagnosis; chronic kidney disease diangosed may 2015; aortic stenois ; peripheral neuropathy upper and lower extremity Last Myocardial Infarction Date:: 05/28/2015 History of Any Multi-Drug Resistant Organisms: MRSA Year Discovered:: 2009 MDRO Source:: wounds Past Surgical History: Back Surgery, Cholecystectomy, Heart Catheterization ( known quadruple vessel disease per daughter report), Hysterectomy (with BSO for bleeding, no carcinoma history) Additional Past Surgical History / Comment(s): Lumbar surgery with decompression off L3-L4 L4-L5 with fusion March 2011 with previous hardware failure L4-L5 and extension of fusion to S1. new back sugery including t8 and t9 Past Anesthesia/Blood Transfusion Reactions: No Reported Reaction Additional Past Anesthesia/Blood Transfusion Reaction / Comm: Possible confusion that resolved. Smoking Status: Never smoker (exposed to second hand smoke with ) Past Drug Use History: None Reported - Past Family History Father Additional Family Medical History / Comment(s): Brain aneurysm ; age 72 Sister(s) Family Medical History: Hypertension Additional Family Medical History / Comment(s): Aortic stenosis; mitral valve disease Mother Family Medical History: AFIB, CVA/TIA, Hypertension Additional Family Medical History / Comment(s): mother age 83 Daughter(s) Family Medical History: Asthma Son(s) Family Medical History: Asthma Medications and Allergies Home Medications Medication Instructions Recorded Confirmed Type DULoxetine HCL [Cymbalta] 60 mg PO DAILY 08/04/14 12/25/16 History Fish Oil/Dha/Epa [Fish Oil 1,200 1 cap PO MOWEFR 08/04/14 12/25/16 History mg Fish Oil] Insulin Glargine [Lantus] 30 units SQ HS 08/04/14 12/25/16 History Acetaminophen Tab [Tylenol] 650 mg PO Q6H PRN 05/29/15 12/25/16 History Amiodarone HCl [Pacerone] 100 mg PO DAILY 11/22/15 12/25/16 History Apixaban [Eliquis] 2.5 mg PO BID 11/22/15 12/25/16 History Aspirin EC [Ecotrin Low Dose] 81 mg PO HS 11/22/15 12/25/16 History Cetirizine HCl [Zyrtec] 10 mg PO DAILY 11/22/15 12/25/16 History Cholecalciferol [Vitamin D3] 2,000 unit PO HS 11/22/15 12/25/16 History Cyclobenzaprine [Flexeril] 2.5 - 5 mg PO HS PRN 11/22/15 12/25/16 History Docusate [Colace] 100 mg PO BID 11/22/15 12/25/16 History Ezetimibe [Zetia] 10 mg PO DAILY 11/22/15 12/25/16 History Isosorbide Mononitrate ER [Imdur] 30 mg PO DAILY 11/22/15 12/25/16 History Magnesium Oxide [Mag-Ox] 400 mg PO HS 11/22/15 12/25/16 History Metoprolol Tartrate 50 mg PO BID 11/22/15 12/25/16 History NIFEdipine [NIFEdipine ER] 30 mg PO DAILY 11/22/15 12/25/16 History Cranberry 4200mg-Vitamin C 1 tab PO DAILY 12/25/16 12/25/16 History Furosemide [Lasix] 20 mg PO DAILY 12/25/16 12/25/16 History Glimepiride [Amaryl] 2 mg PO DAILY 12/25/16 12/25/16 History Omeprazole 20 mg PO DAILY 12/25/16 12/25/16 History Penicillin V Potassium [Pen Vee K] 500 mg PO Q6HR 12/25/16 12/25/16 History Polyethylene Glycol 3350 [Miralax] 17 gm PO DAILY 12/25/16 12/25/16 History Allergies Allergy/AdvReac Type Severity Reaction Status Date / Time KUSHAL Inhibitors Allergy Unknown Verified 12/25/16 07:50 ARB-Angiotensin Receptor Allergy Unknown Verified 12/25/16 07:50 Antagonist cephalexin monohydrate Allergy Rash/Hives Verified 12/25/16 07:50 [From Keflex] propoxyphene HCl Allergy Unknown Verified 12/25/16 07:50 [From Darvon] Xdycymi-Iod-Qiy Reductase Allergy Unknown Verified 12/25/16 07:50 Inhibitor Physical Exam Vitals: Vital Signs Temp Pulse Pulse Resp BP BP Pulse Ox 12/26/16 08:00 97.6 F 90 18 167/71 97 12/26/16 07:59 91 12/26/16 07:42 90 99 12/26/16 04:00 96.9 F L 94 18 164/81 98 12/26/16 00:00 97.2 F L 99 18 142/76 98 12/25/16 20:31 95 12/25/16 20:17 95 12/25/16 20:00 98.6 F 100 18 146/74 99 12/25/16 16:14 92 12/25/16 16:00 90 94 18 12/25/16 12:24 92 12/25/16 12:11 90 12/25/16 12:00 98.1 F 92 94 15 189/81 95 12/25/16 11:30 92 22 181/81 12/25/16 11:00 93 16 181/81 Intake and Output 12/25/16 12/26/16 12/26/16 22:59 06:59 14:59 Intake Total 50 200 Balance 50 200 Intake: IV 50 Unasyn 50 Oral 200 Other: Voiding Method Diaper Diaper Diaper # Voids 2 2 Weight 98.5 kg Gen: This is a 71-year-old morbidly obese female. She is sitting up in bed and appears to be comfortable. HEENT: Head is atraumatic, normocephalic. Pupils equal, round. Sclerae is anicteric. Conjunctiva pink. Mucous membranes of the mouth are moist. Patient is noted to have fillings on the right top and right bottom teeth in the back. No drainage, erythema noted at the site of the molar in the right bottom. NECK: Short and thick Supple. No JVD. No lymphadenopathy. No thyromegaly. LUNGS: Crackles to the bilateral bases. No intercostal retractions. Mild distress is noted with talking HEART: Regular rate and rhythm. Systolic murmur. ABDOMEN: Obese. Soft. Bowel sounds are present. No masses. No tenderness. EXTREMITIES: No pedal edema. No calf tenderness. Dorsalis pedis is +2 bilaterally. NEUROLOGICAL: Patient is awake, alert and oriented x3. Cranial nerves 2 through 12 are grossly intact. Results Results: Laboratory Results WBC 10.4 k/uL (3.8-10.6) 12/26/16 06:15 RBC 3.04 m/uL (3.80-5.40) L 12/26/16 06:15 Hgb 9.0 gm/dL (11.4-16.0) L 12/26/16 06:15 Hct 28.5 % (34.0-46.0) L 12/26/16 06:15 MCV 93.8 fL (80.0-100.0) 12/26/16 06:15 MCH 29.6 pg (25.0-35.0) 12/26/16 06:15 MCHC 31.5 g/dL (31.0-37.0) 12/26/16 06:15 RDW 15.0 % (11.5-15.5) 12/26/16 06:15 Plt Count 193 k/uL (150-450) 12/26/16 06:15 Neutrophils % 75 % 12/24/16 23:08 Lymphocytes % 10 % 12/24/16 23:08 Monocytes % 5 % 12/24/16 23:08 Eosinophils % 8 % 12/24/16 23:08 Basophils % 1 % 12/24/16 23:08 Neutrophils # 8.6 k/uL (1.3-7.7) H 12/24/16 23:08 Lymphocytes # 1.2 k/uL (1.0-4.8) 12/24/16 23:08 Monocytes # 0.5 k/uL (0-1.0) 12/24/16 23:08 Eosinophils # 0.9 k/uL (0-0.7) H 12/24/16 23:08 Basophils # 0.1 k/uL (0-0.2) 12/24/16 23:08 Hypochromasia Slight 12/24/16 23:08 PT 10.5 sec (9.0-12.0) 12/24/16 23:08 INR 1.0 (<1.2) 12/24/16 23:08 APTT 25.5 sec (22.0-30.0) 12/24/16 23:08 D-Dimer 1.54 mg/L FEU (<0.60) H 12/24/16 23:08 Sample Site rrad 12/24/16 23:30 ABG pH 7.32 (7.35-7.45) L 12/24/16 23:30 ABG pCO2 48 mmHg (35-45) H 12/24/16 23:30 ABG pO2 87 mmHg (83-108) 12/24/16 23:30 ABG HCO3 24 mmol/L (21-25) 12/24/16 23:30 ABG Total CO2 25 mmol/L (19-24) H 12/24/16 23:30 ABG O2 Saturation 96.0 % (94-97) 12/24/16 23:30 ABG Base Excess -1.8 mmol/L 12/24/16 23:30 FiO2 36 % 12/24/16 23:30 Sodium 139 mmol/L (137-145) 12/26/16 06:15 Potassium 4.6 mmol/L (3.5-5.1) 12/26/16 06:15 Chloride 106 mmol/L (98-107) 12/26/16 06:15 Carbon Dioxide 23 mmol/L (22-30) 12/26/16 06:15 Anion Gap 10 mmol/L 12/26/16 06:15 BUN 41 mg/dL (7-17) H 12/26/16 06:15 Creatinine 2.80 mg/dL (0.52-1.04) H 12/26/16 06:15 Est GFR (MDRD) Af Amer 20 (>60 ml/min/1.73 sqM) 12/26/16 06:15 Est GFR (MDRD) Non-Af 17 (>60 ml/min/1.73 sqM) 12/26/16 06:15 Glucose 144 mg/dL (74-99) H 12/26/16 06:15 POC Glucose (mg/dL) 158 mg/dL (75-99) H 12/26/16 05:35 POC Glu [employer] ARABELLA Charlotte Platt 12/26/16 05:[address] Glu mg/dL 171 mg/dL 12/25/16 10:39 Hemoglobin A1c 7.6 % (4.2-6.1) H 12/25/16 10:39 Plasma Lactic Acid Satinder 1.1 mmol/L (0.7-2.0) 12/24/16 23:08 Calcium 9.1 mg/dL (8.4-10.2) 12/26/16 06:15 Magnesium 1.8 mg/dL (1.6-2.3) 12/26/16 06:15 Total Bilirubin 0.5 mg/dL (0.2-1.3) 12/24/16 23:08 AST 44 U/L (14-36) H 12/24/16 23:08 ALT 39 U/L (9-52) 12/24/16 23:08 Alkaline Phosphatase 172 U/L (38-126) H 12/24/16 23:08 Total Creatine Kinase 26 U/L (30-135) L 12/25/16 10:39 CK-MB (CK-2) 1.0 ng/mL (0.0-2.4) 12/25/16 10:39 CK-MB (CK-2) Rel Index 3.8 12/25/16 10:39 Troponin I <0.012 ng/mL (0.000-0.034) 12/25/16 10:39 NT-Pro-B Natriuret Pep 4910 pg/mL 12/24/16 23:08 Total Protein 6.5 g/dL (6.3-8.2) 12/24/16 23:08 Albumin 3.2 g/dL (3.5-5.0) L 12/24/16 23:08 Triglycerides 124 mg/dL (<150) 12/26/16 06:15 Cholesterol 167 mg/dL (<200) 12/26/16 06:15 LDL Cholesterol, Calc 104 mg/dL (0-99) H 12/26/16 06:15 HDL Cholesterol 38 mg/dL (40-60) L 12/26/16 06:15 Urine Color Yellow 12/25/16 00:01 Urine Appearance Clear (Clear) 12/25/16 00:01 Urine pH 6.0 (5.0-8.0) 12/25/16 00:01 Ur Specific [place] 1.011 (1.001-1.035) 12/25/16 00:01 Urine Protein 3+ (Negative) H 12/25/16 00:01 Urine Glucose (UA) 4+ (Negative) H 12/25/16 00:01 Urine Ketones Negative (Negative) 12/25/16 00:01 Urine Blood Small (Negative) H 12/25/16 00:01 Urine Nitrite Negative (Negative) 12/25/16 00:01 Urine Bilirubin Negative (Negative) 12/25/16 00:01 Urine Urobilinogen <2.0 mg/dL (<2.0) 12/25/16 00:01 Ur Leukocyte Esterase Negative (Negative) 12/25/16 00:01 Urine RBC 28 /hpf (0-5) H 12/25/16 00:01 Urine WBC 2 /hpf (0-5) 12/25/16 00:01 Ur Squamous Epith Cells 1 /hpf (0-4) 12/25/16 00:01 Urine Bacteria Rare /hpf (None) H 12/25/16 00:01 Hyaline Casts 13 /lpf (0-2) H 12/25/16 00:01 Urine Mucus Rare /hpf (None) H 12/25/16 00:01 CBC & Chem 7: 12/28/16 05:43 12/28/16 05:43 Labs: Abnormal Lab Results - Last 24 Hours (Table) 12/25/16 12/25/16 12/25/16 Range/Units 10:39 10:39 12:18 RBC (3.80-5.40) m/uL Hgb (11.4-16.0) gm/dL Hct (34.0-46.0) % Potassium (3.5-5.1) mmol/L BUN (7-17) mg/dL Creatinine (0.52-1.04) mg/dL Glucose (74-99) mg/dL POC Glucose (mg/dL) 249 H (75-99) mg/dL Hemoglobin A1c 7.6 H (4.2-6.1) % Total Creatine Kinase 26 L (30-135) U/L LDL Cholesterol, Calc (0-99) mg/dL HDL Cholesterol (40-60) mg/dL 12/25/16 12/25/16 12/25/16 Range/Units 13:51 15:28 17:12 RBC (3.80-5.40) m/uL Hgb (11.4-16.0) gm/dL Hct (34.0-46.0) % Potassium 6.0 H (3.5-5.1) mmol/L BUN (7-17) mg/dL Creatinine (0.52-1.04) mg/dL Glucose (74-99) mg/dL POC Glucose (mg/dL) 300 H 244 H (75-99) mg/dL Hemoglobin A1c (4.2-6.1) % Total Creatine Kinase (30-135) U/L LDL Cholesterol, Calc (0-99) mg/dL HDL Cholesterol (40-60) mg/dL 12/25/16 12/26/16 12/26/16 Range/Units 20:35 02:34 05:35 RBC (3.80-5.40) m/uL Hgb (11.4-16.0) gm/dL Hct (34.0-46.0) % Potassium (3.5-5.1) mmol/L BUN (7-17) mg/dL Creatinine (0.52-1.04) mg/dL Glucose (74-99) mg/dL POC Glucose (mg/dL) 230 H 201 H 158 H (75-99) mg/dL Hemoglobin A1c (4.2-6.1) % Total Creatine Kinase (30-135) U/L LDL Cholesterol, Calc (0-99) mg/dL HDL Cholesterol (40-60) mg/dL 12/26/16 12/26/16 Range/Units 06:15 06:15 RBC 3.04 L (3.80-5.40) m/uL Hgb 9.0 L (11.4-16.0) gm/dL Hct 28.5 L (34.0-46.0) % Potassium (3.5-5.1) mmol/L BUN 41 H (7-17) mg/dL Creatinine 2.80 H (0.52-1.04) mg/dL Glucose 144 H (74-99) mg/dL POC Glucose (mg/dL) (75-99) mg/dL Hemoglobin A1c (4.2-6.1) % Total Creatine Kinase (30-135) U/L LDL Cholesterol, Calc 104 H (0-99) mg/dL HDL Cholesterol 38 L (40-60) mg/dL Microbiology - Last 24 Hours (Table) 12/24/16 23:08 Blood Culture Gram Stain - Final Blood Blood Culture - Final Bacillus species Not Anthracis 12/24/16 23:08 Blood Culture - Final Blood Assessment and Plan Plan: This is a 71-year-old female who presented to the hospital for acute hypoxic respiratory failure secondary to acute on chronic heart failure and COPD exacerbation. She has been under treatment for tooth abscess and was given a prescription for penicillin which was not started prior to her coming in with shortness of breath. Her blood culture is showing Bacillus species a contamination. She is currently on Unasyn which will be continued. Augmentin will be planned for home. Continue supportive care. Further recommendations as patient progresses. The above dictated assessment and findings were discussed with Dr. Locke. The impression and plan of care have been directed as dictated. Jessenia Gonzalez nurse practitioner acting as scribe for Dr. Locke.
[2016-12-26 12:04] LABS: Glucose,Whole Blood 246 mg/dL (75-99)
--- NOTE | 2016-12-26 13:22 | P.PN ---
Subjective Principal diagnosis: Hypertension This is a 71-year-old female who presented to the hospital primarily with symptoms of shortness of breath. Patient does have history of paroxysmal atrial fibrillation, chronic kidney disease, diabetes, hypertension, sleep apnea. Patient had significantly elevated blood pressure and medication adjustments were made yesterday. Blood pressure this morning 125/60. We will discontinue the patient's metoprolol tartrate, and start the patient on labetalol 100 mg by mouth twice a day. Continue Procardia. Patient seen and examined today, feeling well overall, no complaints. BUN 24, creatinine 2.8. Objective - Vital Signs Vital signs: Vital Signs Temp 97.7 F 12/26/16 12:20 Pulse 99 12/26/16 12:20 Resp 18 12/26/16 12:20 BP 125/66 12/26/16 12:20 Pulse Ox 96 12/26/16 12:20 Intake & Output 12/25/16 12/26/16 12/26/16 18:59 06:59 18:59 Intake Total 100 200 Balance 100 200 Weight 99.2 kg 98.5 kg Intake: IV 50 Unasyn 50 Oral 50 200 Other: Voiding Method Diaper Diaper Diaper Incontinent # Voids 2 2 - Exam PHYSICAL EXAMINATION: HEENT: Head is atraumatic, normocephalic. Pupils equal, round. Neck is supple. There is no elevated jugular venous pressure. HEART EXAMINATION: Heart S1, S2 normal. No murmur or gallop heard. CHEST EXAMINATION: Lungs are clear to auscultation and precussion. No chest wall tenderness is noted on palpation or with deep breathing. ABDOMEN: Soft, nontender. Bowel sounds are heard. No organomegaly noted. EXTREMITIES: 2+ peripheral pulses with no evidence of peripheral edema and no calf tenderness noted. NEUROLOGIC patient is awake, alert and oriented -3. . - Labs CBC & Chem 7: 12/26/16 06:15 12/26/16 06:15 Labs: Abnormal Lab Results - Last 24 Hours (Table) 12/25/16 12/25/16 12/25/16 Range/Units 10:39 13:51 15:28 RBC (3.80-5.40) m/uL Hgb (11.4-16.0) gm/dL Hct (34.0-46.0) % Potassium 6.0 H (3.5-5.1) mmol/L BUN (7-17) mg/dL Creatinine (0.52-1.04) mg/dL Glucose (74-99) mg/dL POC Glucose (mg/dL) 300 H (75-99) mg/dL Hemoglobin A1c 7.6 H (4.2-6.1) % LDL Cholesterol, Calc (0-99) mg/dL HDL Cholesterol (40-60) mg/dL 12/25/16 12/25/16 12/26/16 Range/Units 17:12 20:35 02:34 RBC (3.80-5.40) m/uL Hgb (11.4-16.0) gm/dL Hct (34.0-46.0) % Potassium (3.5-5.1) mmol/L BUN (7-17) mg/dL Creatinine (0.52-1.04) mg/dL Glucose (74-99) mg/dL POC Glucose (mg/dL) 244 H 230 H 201 H (75-99) mg/dL Hemoglobin A1c (4.2-6.1) % LDL Cholesterol, Calc (0-99) mg/dL HDL Cholesterol (40-60) mg/dL 12/26/16 12/26/16 12/26/16 Range/Units 05:35 06:15 06:15 RBC 3.04 L (3.80-5.40) m/uL Hgb 9.0 L (11.4-16.0) gm/dL Hct 28.5 L (34.0-46.0) % Potassium (3.5-5.1) mmol/L BUN 41 H (7-17) mg/dL Creatinine 2.80 H (0.52-1.04) mg/dL Glucose 144 H (74-99) mg/dL POC Glucose (mg/dL) 158 H (75-99) mg/dL Hemoglobin A1c (4.2-6.1) % LDL Cholesterol, Calc 104 H (0-99) mg/dL HDL Cholesterol 38 L (40-60) mg/dL 12/26/16 Range/Units 11:44 RBC (3.80-5.40) m/uL Hgb (11.4-16.0) gm/dL Hct (34.0-46.0) % Potassium (3.5-5.1) mmol/L BUN (7-17) mg/dL Creatinine (0.52-1.04) mg/dL Glucose (74-99) mg/dL POC Glucose (mg/dL) 246 H (75-99) mg/dL Hemoglobin A1c (4.2-6.1) % LDL Cholesterol, Calc (0-99) mg/dL HDL Cholesterol (40-60) mg/dL Microbiology - Last 24 Hours (Table) 12/24/16 23:08 Blood Culture Gram Stain - Final Blood Blood Culture - Final Bacillus species Not Anthracis 12/24/16 23:08 Blood Culture - Final Blood Assessment and Plan (1) Accelerated hypertension Status: Acute (2) Diastolic CHF, acute on chronic Status: Acute (3) Acute exacerbation of chronic obstructive airways disease Status: Acute (4) Acute on chronic renal failure Status: Acute (5) Diabetes mellitus Status: Acute (6) Obesity Status: Acute Plan: From cardiology's perspective, we will continue current dose of Procardia, discontinue metoprolol tartrate start the patient on labetalol. Echocardiogram with Doppler study remains pending. We will decrease aspirin to 81 mg daily. Continue to monitor blood pressure. Discontinue IV Lasix and start the patient on oral diuretics. DNP note has been reviewed, I agree with a documented findings and plan of care. Patient was seen and examined.
--- NOTE | 2016-12-26 15:30 | P.PN ---
Subjective This is a 71-year-old female who was admitted with a diagnosis of shortness of breath. Denies much in the way of cough or phlegm production. Not much in check his way of chest pain. The patient did have some mild chest discomfort. No fever no chills. No headache. No diaphoresis. The patient states she's recently gained weight. Denies any orthopnea is more nocturnal dyspnea. She was seen in the ER admitted with a diagnosis of heart failure. She does not have any underlying lung disease. Lifelong nonsmoker. Really nothing to suggest pneumonia per se. No history of any asthma or COPD. Again lifelong nonsmoker. Feeling much better now. Only received 20 of Lasix in the emergency department. Received 80 mg here. BNP is elevated. Her chest x-rays consistent with heart failure. VQ scan was indeterminate. Dopplers of lower extremities were negative. The patient is a BNP was elevated at 4900. Doppler of the lower extremities were negative. The chest x-ray was more consistent with congestion heart failure. The patient was admitted for CHF exacerbation. The patient's comorbid conditions include coronary artery disease with multivessel involvement per family, chronic atrial fibrillation, chronic renal failure, diabetes mellitus, hyperlipidemia, hypertension, previous episodes of myocardial infarction back in 2014 and 2015, obstructive sleep apnea, peripheral neuropathy, aortic stenosis, degenerative disc disease with previous lumbar decompression at multiple levels On 12/26/2016, the patient is being seen in follow-up. The patient is doing well. She is less short of breath. We'll check her pulse ox on room air. She states me that she was not receiving any oxygen therapy at home to her current hospitalization. No major swelling lower extremities pain no chest pain. She' ll be switched to oral diuretics and the patient be receiving Lasix 40 mg by mouth twice a day. Her renal function is stable. Creatinine is at 2.8 which is comparable to the value from yesterday. Her hemoglobin is at 9.0. Denies having any chest pain. No other significant events overnight. Overall she is improving. No chest pain. Objective - Vital Signs Vital signs: Vital Signs Temp 97.7 F 12/26/16 12:20 Pulse 99 12/26/16 12:20 Resp 18 12/26/16 12:20 BP 125/66 12/26/16 12:20 Pulse Ox 96 12/26/16 12:20 Intake & Output 12/25/16 12/26/16 12/26/16 18:59 06:59 18:59 Intake Total 100 200 Balance 100 200 Weight 99.2 kg 98.5 kg Intake: IV 50 Unasyn 50 Oral 50 200 Other: Voiding Method Diaper Diaper Diaper Incontinent # Voids 2 2 - Exam Constitutional: No acute distress, conversant, pleasant Eyes: Anicteric sclerae, moist conjunctiva, no lid-lag PERRLA ENMT: NC/AT Oropharynx clear, edema surrounding right posterior molar on the lower jaw Neck: Supple, FROM, no masses, or JVD No carotid bruits No thyromegaly Lungs: Apices clear. Crackles [facility] up the bilateral bases posteriorly. No accessory muscle use of the time of my exam however significant accessory muscle use was reported in the emergency department and the patient did require BiPAP therapy at that time. She is now stable on 4 L nasal cannula. Cardiovascular: Heart irregular in rhythm with a controlled rate, Possible faint murmur over the aortic listening post. There is some significant ambient noise in the room which limits this a bit. No peripheral edema Abdominal: Soft Nontender, no guarding, rebound or rigidity Abdomen moving with respiration Normoactive bowel sounds No hepatomegaly, No splenomegaly No palpable mass No abdominal wall hernia noted Skin: Normal temperature, tone, texture, turgor No induration No subcutaneous nodules No rash, lesions Healing sacral ulcer over the coccyx, does have scab formation over the top which limits the evaluation. Possible healing stage II. Photos were taken by the nurse for the chart. Extremities: No digital cyanosis Pedal pulses intact and symmetrical Radial pulses intact and symmetrical See neuro. Patient unable to ambulate on her own. No calf tenderness . No erythema or firm areas felt over the calves. Psychiatric: Alert and oriented to person, place and time Appropriate affect Intact judgement Neuro: Muscles Strength 5-/5 in upper extremities. Certified Medication Aide strength slightly weaker on the left than the right. Quadriceps 4 out of 5, hamstrings 4 out of 5 bilaterally. EHL extremely weak on both sides, moves against gravity but not much resistance allowed. Sensation to light touch impaired with no sensation felt until just above the ankles bilaterally. Once above the ankles patient does have full light touch sensation. Sensation also impaired over the hands bilaterally. Cranial nerves II-XII grossly intact Normal biceps and patellar reflexes. Patient has neither a port nor downward movement with attempt at Babinski reflex. - Labs CBC & Chem 7: 12/26/16 06:15 12/26/16 06:15 Labs: Abnormal Lab Results - Last 24 Hours (Table) 12/25/16 12/25/16 12/25/16 Range/Units 10:39 13:51 15:28 RBC (3.80-5.40) m/uL Hgb (11.4-16.0) gm/dL Hct (34.0-46.0) % Potassium 6.0 H (3.5-5.1) mmol/L BUN (7-17) mg/dL Creatinine (0.52-1.04) mg/dL Glucose (74-99) mg/dL POC Glucose (mg/dL) 300 H (75-99) mg/dL Hemoglobin A1c 7.6 H (4.2-6.1) % LDL Cholesterol, Calc (0-99) mg/dL HDL Cholesterol (40-60) mg/dL 12/25/16 12/25/16 12/26/16 Range/Units 17:12 20:35 02:34 RBC (3.80-5.40) m/uL Hgb (11.4-16.0) gm/dL Hct (34.0-46.0) % Potassium (3.5-5.1) mmol/L BUN (7-17) mg/dL Creatinine (0.52-1.04) mg/dL Glucose (74-99) mg/dL POC Glucose (mg/dL) 244 H 230 H 201 H (75-99) mg/dL Hemoglobin A1c (4.2-6.1) % LDL Cholesterol, Calc (0-99) mg/dL HDL Cholesterol (40-60) mg/dL 12/26/16 12/26/16 12/26/16 Range/Units 05:35 06:15 06:15 RBC 3.04 L (3.80-5.40) m/uL Hgb 9.0 L (11.4-16.0) gm/dL Hct 28.5 L (34.0-46.0) % Potassium (3.5-5.1) mmol/L BUN 41 H (7-17) mg/dL Creatinine 2.80 H (0.52-1.04) mg/dL Glucose 144 H (74-99) mg/dL POC Glucose (mg/dL) 158 H (75-99) mg/dL Hemoglobin A1c (4.2-6.1) % LDL Cholesterol, Calc 104 H (0-99) mg/dL HDL Cholesterol 38 L (40-60) mg/dL 12/26/16 Range/Units 11:44 RBC (3.80-5.40) m/uL Hgb (11.4-16.0) gm/dL Hct (34.0-46.0) % Potassium (3.5-5.1) mmol/L BUN (7-17) mg/dL Creatinine (0.52-1.04) mg/dL Glucose (74-99) mg/dL POC Glucose (mg/dL) 246 H (75-99) mg/dL Hemoglobin A1c (4.2-6.1) % LDL Cholesterol, Calc (0-99) mg/dL HDL Cholesterol (40-60) mg/dL Microbiology - Last 24 Hours (Table) 12/24/16 23:08 Blood Culture Gram Stain - Final Blood Blood Culture - Final Bacillus species Not Anthracis 12/24/16 23:08 Blood Culture - Final Blood Assessment and Plan Plan: Assessment 1 acute dyspnea secondary to CHF/fluid overload. Patient is improving while on IV diuretics. The patient was taken off IV Lasix and the patient was switched to oral Lasix 40 mg by mouth 3 times a day. The volume status is been optimized and the patient's renal function is stable with a creatinine of 2.8. 2 multivessel coronary artery disease, currently free of any chest pain 4 atrial fibrillation, currently her rhythm is sinus 5 obesity, BMI of 39.7 6 hypertension 7 chronic renal failure 8 hyperlipidemia 9 obstructive sleep apnea denies having CPAP/BiPAP 10 diabetes mellitus 11 intermediate probability VQ scan, pulmonary embolism is doubtful 12 hyperlipidemia 13 previous history of myocardial infarction back in 2014 2015 15 peripheral neuropathy 14 aortic stenosis 15 degenerative disc disease with previous lumbar decompression at multiple levels. 16 chronic normocytic anemia Plan Switch Lasix to 40 minutes by mouth twice a day. Assess patient's pulse ox on room air with activity or at rest. Assess for this patient's requirements for home O2. Continue monitoring the renal function. Increased level of activity as tolerated. We'll continue to follow. The patient's history of any chest pain. Sleep apnea evaluation at a later stage on outpatient basis.
[2016-12-26] MEDS: FUROSEMIDE 40 MG TAB PO SCH (16:13)
[2016-12-26] MEDS: LABETALOL 100 MG TAB PO SCH ×3 (16:14→23:13)
--- NOTE | 2016-12-26 16:19 | P.PN ---
Subjective Principal diagnosis: Gen: This is a 71-year-old morbidly obese female. She is sitting up in bed and appears to be comfortable. HEENT: Head is atraumatic, normocephalic. Pupils equal, round. Sclerae is anicteric. Conjunctiva pink. Mucous membranes of the mouth are moist. Patient is noted to have fillings on the right top and right bottom teeth in the back. No drainage, erythema noted at the site of the molar in the right bottom. NECK: Short and thick Supple. No JVD. No lymphadenopathy. No thyromegaly. LUNGS: Crackles to the bilateral bases. No intercostal retractions. Mild distress is noted with talking HEART: Regular rate and rhythm. Systolic murmur. ABDOMEN: Obese. Soft. Bowel sounds are present. No masses. No tenderness. EXTREMITIES: No pedal edema. No calf tenderness. Dorsalis pedis is +2 bilaterally. NEUROLOGICAL: Patient is awake, alert and oriented x3. Cranial nerves 2 through 12 are grossly intact. This is a 71-year-old female patient of Dr. Garcia with past medical history of atrial fibrillation, coronary artery disease status post myocardial infarction, chronic heart failure, diabetes mellitus type 2, hyperlipidemia, hypertension, chronic kidney disease stage IV, peripheral neuropathy.She states that she went to the dentist on Monday at 3 in the afternoon for a filling of a tooth on the right top and then by the time she was home she found an abscess on the lower right side. She went back to her dentist the following day and there was fluid collection at this area which was aspirated and suctioned out by her dentist and she was given a prescription for penicillin which she did not start with plan to have her return on Monday of this week to have this tooth pulled. On Monday, she developed shortness of breath for 2 hours but had been feeling fatigued, tired with heaviness in her chest for most of the week. She came into [facility] emergency center where she had a chest x-ray that did show perihilar edema. D- dimer was elevated and she underwent a VQ scan which was intermediate probability. Lower extremity duplex was negative for DVT. She was started on IV Lasix and admitted to the selective care unit and has seen cardiology as well as pulmonary medicine in consultation. Blood culture obtained in the emergency center is showing bacillus species not anthracis. Repeat blood culture was drawn this morning. Patient also complains of bladder infection that has been going on since July 2016. She states she has been on continuous antibiotics except for 2 months since then. She follows with a nurse practitioner at Dr. Botello's office. She does state she has a little burning at this time. Her urinalysis is clear, blood small, RBCs 28, bacteria rare, nitrate and leukoesterase are negative. No urine culture was obtained. Patient also gives history of going to [facility] in June 2015 for back surgery and subsequently had an myocardial infarction. She underwent a heart catheterization which damage her kidneys and she has chronic kidney disease stage 4. She also was found to have atrial fibrillation at that time and was placed on amiodarone and eliquis. Patient states that she was falling on a daily basis and had significant pain that kept her bed ridden prior to the back surgery. She now states that she can pivot to a wheelchair and pain is much improved. She fell one week ago while pivoting to her wheelchair as she lost her balance. She laid on the floor until her daughter and grandson could come to the home and help her up. She did not seek any treatment at the time did not feel she had any injury that required treatment. Regarding her breathing, she states she is still a little short of breath. She is currently on oxygen at 4 L nasal cannula and pulse oxing 97%. This is improved as she was previously on BiPAP therapy. She does not have home oxygen. Her lower extremity edema is much improved but she continues to have some edema around her abdomen and neck area. She denies having a sleep study done in the past but does state that she is usually fatigued during the day and tired. Her daughter has been living with her for the past year or more and just moved out a couple weeks ago. Family is looking into getting her an alert button for home. Patient is seen and followed by Dr. Hanson from pulmonary medicine, Dr. Delacruz from cardiology and Dr. Locke from infectious disease. Her blood cultures positive for bacillus species which is most likely contamination. She is currently on Unasyn. Her Lasix is IV push 40 mg every 12 hours. Echocardiogram has been obtained and report is pending. Lower extremity edema is improved. Objective - Vital Signs Vital signs: Vital Signs Temp 97.6 F 12/26/16 08:00 Pulse 99 12/26/16 08:00 Resp 18 12/26/16 08:00 BP 167/71 12/26/16 08:00 Pulse Ox 97 12/26/16 08:00 Intake & Output 12/25/16 12/26/16 12/26/16 18:59 06:59 18:59 Intake Total 100 200 Balance 100 200 Weight 99.2 kg 98.5 kg Intake: IV 50 Unasyn 50 Oral 50 200 Other: Voiding Method Diaper Diaper Diaper Incontinent # Voids 2 2 - Exam Gen: This is a 71-year-old morbidly obese female. She is sitting up in bed and appears to be comfortable. HEENT: Head is atraumatic, normocephalic. Pupils equal, round. Sclerae is anicteric. Conjunctiva pink. Mucous membranes of the mouth are moist. Patient is noted to have fillings on the right top and right bottom teeth in the back. No drainage, erythema noted at the site of the molar in the right bottom. NECK: Short and thick Supple. No JVD. No lymphadenopathy. No thyromegaly. LUNGS: Crackles to the bilateral bases. No intercostal retractions. Mild distress is noted with talking HEART: Regular rate and rhythm. Systolic murmur. ABDOMEN: Obese. Soft. Bowel sounds are present. No masses. No tenderness. EXTREMITIES: No pedal edema. No calf tenderness. Dorsalis pedis is +2 bilaterally. NEUROLOGICAL: Patient is awake, alert and oriented x3. Cranial nerves 2 through 12 are grossly intact. - Labs CBC & Chem 7: 12/28/16 05:43 12/28/16 05:43 Labs: Abnormal Lab Results - Last 24 Hours (Table) 12/25/16 12/25/16 12/25/16 Range/Units 08:43 09:35 10:39 RBC (3.80-5.40) m/uL Hgb (11.4-16.0) gm/dL Hct (34.0-46.0) % Potassium (3.5-5.1) mmol/L BUN (7-17) mg/dL Creatinine (0.52-1.04) mg/dL Glucose (74-99) mg/dL POC Glucose (mg/dL) 305 H 287 H (75-99) mg/dL Hemoglobin A1c (4.2-6.1) % Total Creatine Kinase 26 L (30-135) U/L LDL Cholesterol, Calc (0-99) mg/dL HDL Cholesterol (40-60) mg/dL 12/25/16 12/25/16 12/25/16 Range/Units 10:39 12:18 13:51 RBC (3.80-5.40) m/uL Hgb (11.4-16.0) gm/dL Hct (34.0-46.0) % Potassium 6.0 H (3.5-5.1) mmol/L BUN (7-17) mg/dL Creatinine (0.52-1.04) mg/dL Glucose (74-99) mg/dL POC Glucose (mg/dL) 249 H (75-99) mg/dL Hemoglobin A1c 7.6 H (4.2-6.1) % Total Creatine Kinase (30-135) U/L LDL Cholesterol, Calc (0-99) mg/dL HDL Cholesterol (40-60) mg/dL 12/25/16 12/25/16 12/25/16 Range/Units 15:28 17:12 20:35 RBC (3.80-5.40) m/uL Hgb (11.4-16.0) gm/dL Hct (34.0-46.0) % Potassium (3.5-5.1) mmol/L BUN (7-17) mg/dL Creatinine (0.52-1.04) mg/dL Glucose (74-99) mg/dL POC Glucose (mg/dL) 300 H 244 H 230 H (75-99) mg/dL Hemoglobin A1c (4.2-6.1) % Total Creatine Kinase (30-135) U/L LDL Cholesterol, Calc (0-99) mg/dL HDL Cholesterol (40-60) mg/dL 12/26/16 12/26/16 12/26/16 Range/Units 02:34 05:35 06:15 RBC (3.80-5.40) m/uL Hgb (11.4-16.0) gm/dL Hct (34.0-46.0) % Potassium (3.5-5.1) mmol/L BUN 41 H (7-17) mg/dL Creatinine 2.80 H (0.52-1.04) mg/dL Glucose 144 H (74-99) mg/dL POC Glucose (mg/dL) 201 H 158 H (75-99) mg/dL Hemoglobin A1c (4.2-6.1) % Total Creatine Kinase (30-135) U/L LDL Cholesterol, Calc 104 H (0-99) mg/dL HDL Cholesterol 38 L (40-60) mg/dL 12/26/16 Range/Units 06:15 RBC 3.04 L (3.80-5.40) m/uL Hgb 9.0 L (11.4-16.0) gm/dL Hct 28.5 L (34.0-46.0) % Potassium (3.5-5.1) mmol/L BUN (7-17) mg/dL Creatinine (0.52-1.04) mg/dL Glucose (74-99) mg/dL POC Glucose (mg/dL) (75-99) mg/dL Hemoglobin A1c (4.2-6.1) % Total Creatine Kinase (30-135) U/L LDL Cholesterol, Calc (0-99) mg/dL HDL Cholesterol (40-60) mg/dL Microbiology - Last 24 Hours (Table) 12/24/16 23:08 Blood Culture Gram Stain - Final Blood Blood Culture - Final Bacillus species Not Anthracis 12/24/16 23:08 Blood Culture - Final Blood Assessment and Plan Plan: 1. Acute hypoxic respiratory failure secondary to acute on chronic heart failure, COPD exacerbation, aortic stenosis. Patient is on Lasix 40 mg every 12 hours. Echocardiogram is pending. Patient is followed by pulmonary medicine and cardiology. Continue to monitor I&O and daily weights. 2. Tooth abscess in the right lower jaw. Patient is currently on Unasyn and followed by Dr. Locke. Patient has appointment on Monday to have this extracted. Eliquis is on hold for tooth extraction. 3. Chronic kidney disease stage IV. Monitor kidney function. Avoid nephrotoxic agents. 4. Accelerated hypertension. Continue Lasix, Imdur, labetalol 100 mg twice daily, Procardia which is been increased to 60 mg daily. 5. Paroxysmal atrial fibrillation. Continue amiodarone 100 mg daily. Eliquis is on hold. 6. Morbid obesity with BMI of 39. 7. Hyperkalemia secondary to chronic renal failure status post Kayexalate and insulin given in the ER. 8. Diabetes mellitus type 2 presented with hyperglycemia secondary to steroid use. 9. Gastrointestinal prophylaxis. Continue Protonix. 10. Hypertension, hypertensive cardiovascular disease. Continue Lasix, Imdur, labetalol 100 mg twice daily, Procardia which is been increased to 60 mg daily. 11. History of myocardial infarction and coronary artery disease. Continue aspirin 81 mg daily, Imdur 30 mg daily, Nitrostat as needed. 12. Hyperlipidemia. Continue Zetia 10 mg daily. 13. Diabetic peripheral neuropathy and neuropathy secondary to chronic back pain. Continue gabapentin 300 mg twice daily. 14. DVT prophylaxis. Continue Lovenox. Discharge plan: Return home. Impression and plan of care have been directed as dictated by the signing physician. Jessenia Gonzalez nurse practitioner acting as scribe for signing physician.
[2016-12-26 17:02] LABS: Glucose,Whole Blood 138 mg/dL (75-99)
--- NOTE | 2016-12-26 19:35 | P.CON ---
Consult Note - . Consult date: 12/26/16 Assessment/Plan:: This is a 71-year-old female known to ID service as she was treated for a MRSA soft tissue skin infection approximately 5 years ago. She states that she went to the dentist on Monday at 3 in the afternoon for a filling of a tooth on the right top and then by the time she was home she found an abscess on the lower right side. She went back to her dentist the following day and there was fluid collection at this area which was aspirated and suctioned out by her dentist and she was given a prescription for penicillin which she did not start with plan to have her return on Monday of this week to have this tooth pulled. On Monday, she developed shortness of breath for 2 hours but had been feeling fatigued, tired with heaviness in her chest for most of the week. She came into [facility] emergency center where she had a chest x-ray that did show perihilar edema. D-dimer was elevated and she underwent a VQ scan which was intermediate probability. Lower extremity duplex was negative for DVT. She was started on IV Lasix and admitted to the selective care unit and has seen cardiology as well as pulmonary medicine in consultation. Blood culture obtained in the emergency center is showing bacillus species not anthracis. Repeat blood culture was drawn this morning. Patient also complains of bladder infection that has been going on since July 2016. She states she has been on continuous antibiotics except for 2 months since then. She follows with a nurse practitioner at Dr. Botello's office. She does state she has a little burning at this time. Her urinalysis is clear, blood small, RBCs 28, bacteria rare, nitrate and leukoesterase are negative. No urine culture was obtained. Patient also gives history of going to [facility] in June 2015 for back surgery and subsequently had an myocardial infarction. She underwent a heart catheterization which damage her kidneys and she has chronic kidney disease stage 4. She also was found to have atrial fibrillation at that time and was placed on amiodarone and eliquis. Patient states that she was falling on a daily basis and had significant pain that kept her bed ridden prior to the back surgery. She now states that she can pivot to a wheelchair and pain is much improved. She fell one week ago while pivoting to her wheelchair as she lost her balance. She laid on the floor until her daughter and grandson could come to the home and help her up. She did not seek any treatment at the time did not feel she had any injury that required treatment. Regarding her breathing, she states she is still a little short of breath. She is currently on oxygen at 4 L nasal cannula and pulse oxing 97%. This is improved as she was previously on BiPAP therapy. She does not have home oxygen. Her lower extremity edema is much improved but she continues to have some edema around her abdomen and neck area. She denies having a sleep study done in the past but does state that she is usually fatigued during the day and tired. Her daughter has been living with her for the past year or more and just moved out a couple weeks ago. Family is looking into getting her an alert button for home , which the patient is somewhat resistant to. Please see the consult note is dictated by nurse practitioner Mrs. Jessenia Gonzalez. As noted the patient had a recent dental infection which is now showing some improvement. She's tolerating the current antibiotic therapy of Unasyn well. The patient does have evidence of the gram-positive bacilli in her blood culture. This is been identified as a bacillus species. This is a contamination would require no further ongoing antibiotic therapy. However she has evidence of the oral infection and completion of treatment for that is indicated. She is improved with complete her course of oral Augmentin over the next week until she follows again with her dentist. She's been followed by pulmonary as well as cardiology. With diuresis and pulmonary treatment she is definitely feeling better. The pulmonary changes have resolved with her diuresis. No evidence of pneumonia. I agree with evaluation, assessment and plan is dictated by nurse practitioner Mrs. Jessenia Gonzalez.
[2016-12-26] MEDS: MAGNESIUM OXIDE 400 MG TAB PO SCH (20:11)
[2016-12-26] MEDS: ENOXAPARIN 30 MG/0.3 ML SYRINGE SQ SCH (20:11)
[2016-12-26 21:12] LABS: Glucose,Whole Blood 204 mg/dL (75-99)
[2016-12-26] MEDS: INSULIN GLARGINE 100 UNIT/ML 10 ML VIAL SQ SCH (22:27)
[2016-12-27 02:59] LABS: Glucose,Whole Blood 136 mg/dL (75-99)
[2016-12-27 06:22] LABS: Glucose,Whole Blood 111 mg/dL (75-99)
[2016-12-27 06:30] LABS: CH 29.2; CHCM 31.6; HCT 29.2 % (34.0-46.0); HDW 2.89; HGB 9.4 gm/dL (11.4-16.0); Hypochromasia Slight; MCH 29.8 pg (25.0-35.0); MCHC 32.2 g/dL (31.0-37.0); MCV 92.7 fL (80.0-100.0); Mean Platelet Volume 8.2; RBC 3.15 m/uL (3.80-5.40); RDW 14.8 % (11.5-15.5); WBC 9.3 k/uL (3.8-10.6)
[2016-12-27] MEDS: INSULIN LISPRO (humaLOG) 300 UNIT/3 ML VIAL SQ SCH ×4 (06:30→21:11)
[2016-12-27] MEDS: PANTOPRAZOLE 40 MG TABLET PO SCH (06:32)
[2016-12-27 07:02] LABS: Potassium 4.5 mmol/L (3.5-5.1)
[2016-12-27] MEDS: ASPIRIN 81 MG CHEW PO SCH (08:30)
[2016-12-27] MEDS: GABAPENTIN 300 MG CAP PO SCH ×2 (08:30→20:00)
[2016-12-27] MEDS: CHOLECALCIFEROL 1,000 UNIT TAB PO SCH (08:30)
[2016-12-27] MEDS: EZETIMIBE 10 MG TAB PO SCH (08:30)
[2016-12-27] MEDS: DOCUSATE 100 MG CAP PO SCH ×2 (08:30→20:00)
[2016-12-27] MEDS: DULoxetine HCL 60 MG CAPSULE.DR PO SCH (08:30)
[2016-12-27] MEDS: FUROSEMIDE 40 MG TAB PO SCH (08:30)
[2016-12-27] MEDS: AMPICILLIN-SULBACTAM 1.5 GM in SODIUM CHLORIDE 0.9% 50 ML IVPB SCH ×2 (08:30→19:54)
[2016-12-27] MEDS: AMIODARONE 100 MG TAB PO SCH (08:30)
[2016-12-27] MEDS: LORATADINE 10 MG TAB PO SCH (08:30)
[2016-12-27] MEDS: ISOSORBIDE MONONITRATE ER 30 MG TAB.ER.24H PO SCH (08:30)
--- NOTE | 2016-12-27 10:05 | XR ---
EXAMINATION TYPE: XR chest 2V DATE OF EXAM: 12/27/2016 COMPARISON: 12/26/2016 TECHNIQUE: PA and lateral views submitted. HISTORY: Shortness of breath FINDINGS: Persistent central interstitial pattern. Metallic density overlying left hilum may be related to prev ious surgery or superficial patient. Previous vertebral surgery noted. There is bilateral pleural eff usions and lateral view. Subsegmental consolidation. No pneumothorax. IMPRESSION: 1. Basilar consolidation and small effusion with mild central venous congestion
--- NOTE | 2016-12-27 10:44 | P.PN ---
Subjective This is a 71-year-old female patient of Dr. Garcia with past medical history of atrial fibrillation, coronary artery disease status post myocardial infarction, chronic heart failure, diabetes mellitus type 2, hyperlipidemia, hypertension, chronic kidney disease stage IV, peripheral neuropathy.She states that she went to the dentist on Monday at 3 in the afternoon for a filling of a tooth on the right top and then by the time she was home she found an abscess on the lower right side. She went back to her dentist the following day and there was fluid collection at this area which was aspirated and suctioned out by her dentist and she was given a prescription for penicillin which she did not start with plan to have her return on Monday of this week to have this tooth pulled. On Monday, she developed shortness of breath for 2 hours but had been feeling fatigued, tired with heaviness in her chest for most of the week. She came into [facility] emergency center where she had a chest x-ray that did show perihilar edema. D- dimer was elevated and she underwent a VQ scan which was intermediate probability. Lower extremity duplex was negative for DVT. She was started on IV Lasix and admitted to the selective care unit and has seen cardiology as well as pulmonary medicine in consultation. Blood culture obtained in the emergency center is showing bacillus species not anthracis. Repeat blood culture was drawn this morning. Patient also complains of bladder infection that has been going on since July 2016. She states she has been on continuous antibiotics except for 2 months since then. She follows with a nurse practitioner at Dr. Botello's office. She does state she has a little burning at this time. Her urinalysis is clear, blood small, RBCs 28, bacteria rare, nitrate and leukoesterase are negative. No urine culture was obtained. Patient also gives history of going to [facility] in June 2015 for back surgery and subsequently had an myocardial infarction. She underwent a heart catheterization which damage her kidneys and she has chronic kidney disease stage 4. She also was found to have atrial fibrillation at that time and was placed on amiodarone and eliquis. Patient states that she was falling on a daily basis and had significant pain that kept her bed ridden prior to the back surgery. She now states that she can pivot to a wheelchair and pain is much improved. She fell one week ago while pivoting to her wheelchair as she lost her balance. She laid on the floor until her daughter and grandson could come to the home and help her up. She did not seek any treatment at the time did not feel she had any injury that required treatment. Regarding her breathing, she states she is still a little short of breath. She is currently on oxygen at 4 L nasal cannula and pulse oxing 97%. This is improved as she was previously on BiPAP therapy. She does not have home oxygen. Her lower extremity edema is much improved but she continues to have some edema around her abdomen and neck area. She denies having a sleep study done in the past but does state that she is usually fatigued during the day and tired. Her daughter has been living with her for the past year or more and just moved out a couple weeks ago. Family is looking into getting her an alert button for home. Patient is seen and followed by Dr. Hanson from pulmonary medicine, Dr. Delacruz from cardiology and Dr. Locke from infectious disease. Her blood cultures positive for bacillus species which is most likely contamination. She is currently on Unasyn. Her Lasix is IV push 40 mg every 12 hours. Echocardiogram has been obtained and report is pending. Lower extremity edema is improved. 12/27: Patient's blood pressure has been running high and she has refused to take labetalol as her daughter noticed side effect would impact her kidneys. This is been discontinued and patient started on hydralazine 25 mg twice daily. BUN is 48 and creatinine 3.1. Consult placed with Dr. Botello. Magnesium has been discontinued. She combines of her abdomen being a little bit sore. She denies any diarrhea. She states she is not drinking much. She is currently on Unasyn. Dr. Locke has recommended Augmentin to complete her course of antibiotics for oral infection with follow-up with her dentist upon discharge. Objective - Vital Signs Vital signs: Vital Signs Temp 97.7 F 12/27/16 08:41 Pulse 95 12/27/16 08:41 Resp 18 12/27/16 08:41 BP 146/93 12/27/16 08:41 Pulse Ox 92 L 12/27/16 08:41 Intake & Output 12/26/16 12/27/16 12/27/16 18:59 06:59 18:59 Intake Total 540 220 Output Total 300 Balance 540 -80 Weight 92.5 kg Intake: Oral 540 220 Output: Urine 300 Other: Voiding Method Diaper Diaper Diaper # Voids 2 1 - Exam Gen: This is a 71-year-old morbidly obese female. She is sitting up in bed and appears to be comfortable. HEENT: Head is atraumatic, normocephalic. Pupils equal, round. Sclerae is anicteric. Conjunctiva pink. Mucous membranes of the mouth are moist. Patient is noted to have fillings on the right top and right bottom teeth in the back. No drainage, erythema noted at the site of the molar in the right bottom. NECK: Short and thick Supple. No JVD. No lymphadenopathy. No thyromegaly. LUNGS: Crackles to the bilateral bases. No intercostal retractions. Mild distress is noted with talking HEART: Regular rate and rhythm. Systolic murmur. ABDOMEN: Obese. Soft. Bowel sounds are present. No masses. No tenderness. EXTREMITIES: No pedal edema. No calf tenderness. Dorsalis pedis is +2 bilaterally. NEUROLOGICAL: Patient is awake, alert and oriented x3. Cranial nerves 2 through 12 are grossly intact. - Labs CBC & Chem 7: 12/27/16 05:55 12/27/16 05:55 Labs: Abnormal Lab Results - Last 24 Hours (Table) 12/26/16 12/26/16 12/26/16 Range/Units 11:44 16:55 21:11 RBC (3.80-5.40) m/uL Hgb (11.4-16.0) gm/dL Hct (34.0-46.0) % BUN (7-17) mg/dL Creatinine (0.52-1.04) mg/dL Glucose (74-99) mg/dL POC Glucose (mg/dL) 246 H 138 H 204 H (75-99) mg/dL 12/27/16 12/27/16 12/27/16 Range/Units 02:57 05:55 05:55 RBC 3.15 L (3.80-5.40) m/uL Hgb 9.4 L (11.4-16.0) gm/dL Hct 29.2 L (34.0-46.0) % BUN 48 H (7-17) mg/dL Creatinine 3.10 H (0.52-1.04) mg/dL Glucose 105 H (74-99) mg/dL POC Glucose (mg/dL) 136 H (75-99) mg/dL 12/27/16 Range/Units 06:20 RBC (3.80-5.40) m/uL Hgb (11.4-16.0) gm/dL Hct (34.0-46.0) % BUN (7-17) mg/dL Creatinine (0.52-1.04) mg/dL Glucose (74-99) mg/dL POC Glucose (mg/dL) 111 H (75-99) mg/dL Assessment and Plan Plan: 1. Acute hypoxic respiratory failure secondary to acute on chronic heart failure, COPD exacerbation, aortic stenosis. Patient is on Lasix 40 mg every 12 hours. Echocardiogram is pending. Patient is followed by pulmonary medicine and cardiology. Continue to monitor I&O and daily weights. 2. Tooth abscess in the right lower jaw. Patient is currently on Unasyn and followed by Dr. Locke. Patient has appointment on Monday to have this extracted. Baylee is on hold for tooth extraction. Dr. Locke has recommended Augmentin after discharge until follow-up with her dentist. 3. Acute kidney injury with chronic kidney disease stage IV. Monitor kidney function. Avoid nephrotoxic agents. Magnesium discontinued. Labetalol changed to hydralazine. Consult with Dr. oBtello. 4. Accelerated hypertension. Continue Lasix, Imdur, hydralazine 25 mg twice daily, Procardia which is been increased to 60 mg daily. 5. Paroxysmal atrial fibrillation. Continue amiodarone 100 mg daily. Eliquis is on hold. 6. Morbid obesity with BMI of 39. 7. Hyperkalemia secondary to chronic renal failure status post Kayexalate and insulin given in the ER. 8. Diabetes mellitus type 2 presented with hyperglycemia secondary to steroid use. 9. Gastrointestinal prophylaxis. Continue Protonix. 10. Hypertension, hypertensive cardiovascular disease. Continue Lasix, Imdur, hydralazine 25 mg twice daily, Procardia which is been increased to 60 mg daily. 11. History of myocardial infarction and coronary artery disease. Continue aspirin 81 mg daily, Imdur 30 mg daily, Nitrostat as needed. 12. Hyperlipidemia. Continue Zetia 10 mg daily. 13. Diabetic peripheral neuropathy and neuropathy secondary to chronic back pain. Continue gabapentin 300 mg twice daily. 14. DVT prophylaxis. Continue Lovenox. Discharge plan: Return home. Impression and plan of care have been directed as dictated by the signing physician. Jessenia Gonzalez nurse practitioner acting as scribe for signing physician.
[2016-12-27] MEDS: hydrALAZINE HCL 25 MG TAB PO SCH ×2 (11:14→20:00)
[2016-12-27] MEDS: ALBUTEROL NEBULIZED 2.5 MG/3 ML INHALATION PRN (11:19)
[2016-12-27 11:46] LABS: Glucose,Whole Blood 260 mg/dL (75-99)
--- NOTE | 2016-12-27 12:16 | P.PN ---
Subjective This is a 71-year-old female who was admitted with a diagnosis of shortness of breath. Denies much in the way of cough or phlegm production. Not much in check his way of chest pain. The patient did have some mild chest discomfort. No fever no chills. No headache. No diaphoresis. The patient states she's recently gained weight. Denies any orthopnea is more nocturnal dyspnea. She was seen in the ER admitted with a diagnosis of heart failure. She does not have any underlying lung disease. Lifelong nonsmoker. Really nothing to suggest pneumonia per se. No history of any asthma or COPD. Again lifelong nonsmoker. Feeling much better now. Only received 20 of Lasix in the emergency department. Received 80 mg here. BNP is elevated. Her chest x-rays consistent with heart failure. VQ scan was indeterminate. Dopplers of lower extremities were negative. The patient is a BNP was elevated at 4900. Doppler of the lower extremities were negative. The chest x-ray was more consistent with congestion heart failure. The patient was admitted for CHF exacerbation. The patient's comorbid conditions include coronary artery disease with multivessel involvement per family, chronic atrial fibrillation, chronic renal failure, diabetes mellitus, hyperlipidemia, hypertension, previous episodes of myocardial infarction back in 2014 and 2015, obstructive sleep apnea, peripheral neuropathy, aortic stenosis, degenerative disc disease with previous lumbar decompression at multiple levels On 12/26/2016, the patient is being seen in follow-up. The patient is doing well. She is less short of breath. We'll check her pulse ox on room air. She states me that she was not receiving any oxygen therapy at home to her current hospitalization. No major swelling lower extremities pain no chest pain. She' ll be switched to oral diuretics and the patient be receiving Lasix 40 mg by mouth twice a day. Her renal function is stable. Creatinine is at 2.8 which is comparable to the value from yesterday. Her hemoglobin is at 9.0. Denies having any chest pain. No other significant events overnight. Overall she is improving. No chest pain. On 12/27/2016, the patient is being seen in follow-up. She is doing well. She is laying down comfortably in bed in a flat position. No significant respiratory distress. She is on room air oxygen. No hypoxemia. Her BNP is up to 48 with a creatinine of 3.1 and based on that the patient was asked to be seen by nephrology again. The chest x-ray was done and showed small better pleural effusion and some mild central poor vascular congestion. The patient is still on oral Lasix 40 mg by mouth twice a day. Awaiting a nephrology consultation. As mentioned earlier, the blood culture was positive for bacillus species, currently on IV Zosyn. Probably contaminant. No signs of any septicemia this point. Objective - Vital Signs Vital signs: Vital Signs Temp 97.7 F 12/27/16 08:41 Pulse 96 12/27/16 11:22 Resp 18 12/27/16 08:41 BP 146/93 12/27/16 08:41 Pulse Ox 92 L 12/27/16 08:41 Intake & Output 12/26/16 12/27/16 12/27/16 18:59 06:59 18:59 Intake Total 540 220 Output Total 300 Balance 540 -80 Weight 92.5 kg Intake: Oral 540 220 Output: Urine 300 Other: Voiding Method Diaper Diaper Diaper # Voids 2 1 - Exam Constitutional: No acute distress, conversant, pleasant Eyes: Anicteric sclerae, moist conjunctiva, no lid-lag PERRLA ENMT: NC/AT Oropharynx clear, edema surrounding right posterior molar on the lower jaw Neck: Supple, FROM, no masses, or JVD No carotid bruits No thyromegaly Lungs: Apices clear. Crackles correction up the bilateral bases posteriorly. No accessory muscle use of the time of my exam however significant accessory muscle use was reported in the emergency department and the patient did require BiPAP therapy at that time. She is now stable on 4 L nasal cannula. Cardiovascular: Heart irregular in rhythm with a controlled rate, Possible faint murmur over the aortic listening post. There is some significant ambient noise in the room which limits this a bit. No peripheral edema Abdominal: Soft Nontender, no guarding, rebound or rigidity Abdomen moving with respiration Normoactive bowel sounds No hepatomegaly, No splenomegaly No palpable mass No abdominal wall hernia noted Skin: Normal temperature, tone, texture, turgor No induration No subcutaneous nodules No rash, lesions Healing sacral ulcer over the coccyx, does have scab formation over the top which limits the evaluation. Possible healing stage II. Photos were taken by the nurse for the chart. Extremities: No digital cyanosis Pedal pulses intact and symmetrical Radial pulses intact and symmetrical See neuro. Patient unable to ambulate on her own. No calf tenderness . No erythema or firm areas felt over the calves. Psychiatric: Alert and oriented to person, place and time Appropriate affect Intact judgement Neuro: Muscles Strength 5-/5 in upper extremities. Leaflet Or Newspaper Deliverer strength slightly weaker on the left than the right. Quadriceps 4 out of 5, hamstrings 4 out of 5 bilaterally. EHL extremely weak on both sides, moves against gravity but not much resistance allowed. Sensation to light touch impaired with no sensation felt until just above the ankles bilaterally. Once above the ankles patient does have full light touch sensation. Sensation also impaired over the hands bilaterally. Cranial nerves II-XII grossly intact Normal biceps and patellar reflexes. Patient has neither a port nor downward movement with attempt at Babinski reflex. - Labs CBC & Chem 7: 12/27/16 05:55 12/27/16 05:55 Labs: Abnormal Lab Results - Last 24 Hours (Table) 12/26/16 12/26/16 12/27/16 Range/Units 16:55 21:11 02:57 RBC (3.80-5.40) m/uL Hgb (11.4-16.0) gm/dL Hct (34.0-46.0) % BUN (7-17) mg/dL Creatinine (0.52-1.04) mg/dL Glucose (74-99) mg/dL POC Glucose (mg/dL) 138 H 204 H 136 H (75-99) mg/dL 12/27/16 12/27/16 12/27/16 Range/Units 05:55 05:55 06:20 RBC 3.15 L (3.80-5.40) m/uL Hgb 9.4 L (11.4-16.0) gm/dL Hct 29.2 L (34.0-46.0) % BUN 48 H (7-17) mg/dL Creatinine 3.10 H (0.52-1.04) mg/dL Glucose 105 H (74-99) mg/dL POC Glucose (mg/dL) 111 H (75-99) mg/dL 12/27/16 Range/Units 11:40 RBC (3.80-5.40) m/uL Hgb (11.4-16.0) gm/dL Hct (34.0-46.0) % BUN (7-17) mg/dL Creatinine (0.52-1.04) mg/dL Glucose (74-99) mg/dL POC Glucose (mg/dL) 260 H (75-99) mg/dL Assessment and Plan Plan: Assessment 1 acute dyspnea secondary to CHF/fluid overload. Patient is improving while on IV diuretics. The patient was taken off IV Lasix and the patient was switched to oral Lasix 40 mg by mouth 3 times a day. The volume status is been optimized and the patient's renal function is stable with a creatinine of 2.8. On 12/27/2016 the chest x-ray shows mild central pulmonary vessel congestion. Clinically however the patient is improved. The patient is oxygen levels also improved and currently she is on room air. She is also on oral Lasix and the patient has a follow-up creatinine of 3.1. Nephrology will be seeing the patient today. 2 multivessel coronary artery disease, currently free of any chest pain 4 atrial fibrillation, currently her rhythm is sinus 5 obesity, BMI of 39.7 6 hypertension 7 chronic renal failure 8 hyperlipidemia 9 obstructive sleep apnea denies having CPAP/BiPAP 10 diabetes mellitus 11 intermediate probability VQ scan, pulmonary embolism is doubtful 12 hyperlipidemia 13 previous history of myocardial infarction back in 2014 2015 15 peripheral neuropathy 14 aortic stenosis 15 degenerative disc disease with previous lumbar decompression at multiple levels. 16 chronic normocytic anemia 17 basilar species within the blood, possible contaminant Plan Pulmonary status is stable. Keep the patient off oxygen. Asked the pharmacy to evaluate this patient and manage the diuretics. She is currently on 40 because of Lasix twice a day. Monitor renal function. Creatinine is at 3.1. Blood cultures is positive for bacillus species the patient was seen by infectious disease. She is also being worked up for an oral infection.
--- NOTE | 2016-12-27 14:40 | P.PN ---
Subjective Principal diagnosis: Hypertension This is a 71-year-old female who presented to the hospital primarily with symptoms of shortness of breath. Patient does have history of paroxysmal atrial fibrillation, chronic kidney disease, diabetes, hypertension, sleep apnea. Patient had significantly elevated blood pressure and medication adjustments were made yesterday. Blood pressure this morning 125/60. We will discontinue the patient's metoprolol tartrate, and start the patient on labetalol 100 mg by mouth twice a day. Continue Procardia. Patient seen and examined today, feeling well overall, no complaints. BUN 24, creatinine 2.8. 12/27/2016 Patient seen and examined this morning, blood pressure running in the 140s to 150s range. Creat 3.1 today, BUN 48. Lasix has been put on hold, we'll check BUN and creatinine in the morning. Objective - Vital Signs Vital signs: Vital Signs Temp 97.7 F 12/27/16 12:18 Pulse 97 12/27/16 12:18 Resp 18 12/27/16 12:18 BP 155/73 12/27/16 12:18 Pulse Ox 90 L 12/27/16 12:18 Intake & Output 12/26/16 12/27/16 12/27/16 18:59 06:59 18:59 Intake Total 540 460 Output Total 300 Balance 540 160 Weight 92.5 kg Intake: Oral 540 460 Output: Urine 300 Other: Voiding Method Diaper Diaper Diaper # Voids 2 1 - Exam PHYSICAL EXAMINATION: HEENT: Head is atraumatic, normocephalic. Pupils equal, round. Neck is supple. There is no elevated jugular venous pressure. HEART EXAMINATION: Heart S1, S2 normal. No murmur or gallop heard. CHEST EXAMINATION: Lungs are clear to auscultation and precussion. No chest wall tenderness is noted on palpation or with deep breathing. ABDOMEN: Soft, nontender. Bowel sounds are heard. No organomegaly noted. EXTREMITIES: 2+ peripheral pulses with no evidence of peripheral edema and no calf tenderness noted. NEUROLOGIC patient is awake, alert and oriented -3. . - Labs CBC & Chem 7: 12/27/16 05:55 12/27/16 05:55 Labs: Abnormal Lab Results - Last 24 Hours (Table) 12/26/16 12/26/16 12/27/16 Range/Units 16:55 21:11 02:57 RBC (3.80-5.40) m/uL Hgb (11.4-16.0) gm/dL Hct (34.0-46.0) % BUN (7-17) mg/dL Creatinine (0.52-1.04) mg/dL Glucose (74-99) mg/dL POC Glucose (mg/dL) 138 H 204 H 136 H (75-99) mg/dL 12/27/16 12/27/16 12/27/16 Range/Units 05:55 05:55 06:20 RBC 3.15 L (3.80-5.40) m/uL Hgb 9.4 L (11.4-16.0) gm/dL Hct 29.2 L (34.0-46.0) % BUN 48 H (7-17) mg/dL Creatinine 3.10 H (0.52-1.04) mg/dL Glucose 105 H (74-99) mg/dL POC Glucose (mg/dL) 111 H (75-99) mg/dL 12/27/16 Range/Units 11:40 RBC (3.80-5.40) m/uL Hgb (11.4-16.0) gm/dL Hct (34.0-46.0) % BUN (7-17) mg/dL Creatinine (0.52-1.04) mg/dL Glucose (74-99) mg/dL POC Glucose (mg/dL) 260 H (75-99) mg/dL Microbiology - Last 24 Hours (Table) 12/26/16 09:50 Blood Culture - Preliminary Blood No Growth after 24 hours Assessment and Plan (1) Accelerated hypertension Status: Acute (2) Diastolic CHF, acute on chronic Status: Acute (3) Acute exacerbation of chronic obstructive airways disease Status: Acute (4) Acute on chronic renal failure Status: Acute (5) Diabetes mellitus Status: Acute (6) Obesity Status: Acute Plan: From cardiology's perspective, we will continue patient on her current medications. Other than holding her Lasix for today. Check lytes BUN and creatinine in the morning. DNP note has been reviewed, I agree with a documented findings and plan of care. Patient was seen and examined.
[2016-12-27 17:28] LABS: Glucose,Whole Blood 259 mg/dL (75-99)
[2016-12-27] MEDS: LABETALOL 100 MG TAB PO SCH (19:51)
[2016-12-27] MEDS: ENOXAPARIN 30 MG/0.3 ML SYRINGE SQ SCH (20:00)
[2016-12-27 21:08] LABS: Glucose,Whole Blood 272 mg/dL (75-99)
[2016-12-27] MEDS: INSULIN GLARGINE 100 UNIT/ML 10 ML VIAL SQ SCH (21:10)
[2016-12-28 06:18] LABS: Glucose,Whole Blood 125 mg/dL (75-99)
[2016-12-28 06:23] LABS: CH 30.1; CHCM 32.6; HCT 28.4 % (34.0-46.0); HDW 2.74; HGB 9.2 gm/dL (11.4-16.0); MCH 30.1 pg (25.0-35.0); MCHC 32.4 g/dL (31.0-37.0); MCV 92.9 fL (80.0-100.0); Mean Platelet Volume 9.1; RBC 3.06 m/uL (3.80-5.40); RDW 15.3 % (11.5-15.5); WBC 9.2 k/uL (3.8-10.6)
[2016-12-28] MEDS: INSULIN LISPRO (humaLOG) 300 UNIT/3 ML VIAL SQ SCH ×4 (06:25→21:41)
[2016-12-28 06:31] LABS: Calcium 8.7 mg/dL (8.4-10.2); Potassium 4.3 mmol/L (3.5-5.1)
[2016-12-28] MEDS: PANTOPRAZOLE 40 MG TABLET PO SCH (06:33)
[2016-12-28] MEDS: hydrALAZINE HCL 25 MG TAB PO SCH ×2 (08:58→21:42)
[2016-12-28] MEDS: ISOSORBIDE MONONITRATE ER 30 MG TAB.ER.24H PO SCH (08:58)
[2016-12-28] MEDS: CHOLECALCIFEROL 1,000 UNIT TAB PO SCH (08:58)
[2016-12-28] MEDS: GABAPENTIN 300 MG CAP PO SCH ×2 (08:58→21:42)
[2016-12-28] MEDS: DULoxetine HCL 60 MG CAPSULE.DR PO SCH (08:58)
[2016-12-28] MEDS: EZETIMIBE 10 MG TAB PO SCH (08:58)
[2016-12-28] MEDS: DOCUSATE 100 MG CAP PO SCH ×2 (08:58→21:41)
[2016-12-28] MEDS: LORATADINE 10 MG TAB PO SCH (08:58)
[2016-12-28] MEDS: ASPIRIN 81 MG CHEW PO SCH (08:58)
[2016-12-28] MEDS: AMIODARONE 100 MG TAB PO SCH (08:59)
[2016-12-28] MEDS: AMPICILLIN-SULBACTAM 1.5 GM in SODIUM CHLORIDE 0.9% 50 ML IVPB SCH ×2 (08:59→21:39)
--- NOTE | 2016-12-28 09:15 | CONS ---
DATE OF CONSULT: 12/28/16 REASON FOR CONSULTATION: Renal failure. HISTORY OF PRESENT ILLNESS: The patient is a 71-year-old female who was admitted to the hospital on 12/24/16 with complaints of shortness of breath and chest discomfort. There was evidence of pulmonary vascular congestion and fluid overload noted. The patient was started on IV Lasix. She does have chronic kidney disease with previous creatinine at 2.5 and 2.2 NKF Stage IV. Her creatinine increased to 3.1 yesterday. Lasix was changed to po. It is currently on hold. Her serum creatinine today is at 2.9. The patient states she is feeling better than on admission. No fever. She is also maintained on IV antibiotics. There is underlying COPD. PAST MEDICAL HISTORY: CKD Stage IV secondary to nephrosclerosis and hypertension , coronary artery disease, history of [place], COPD, heart failure, A. fib. Past surgical history: Back surgery, cholecystectomy, cardiac catheterization , hysterectomy, Coronary artery bypass surgery. SOCIAL HISTORY: Negative for smoking, drug abuse or alcohol abuse. Medications at home include: Prior to admission: 1. Insulin. 2. Cymbalta. 3. Pacerone. 4. Eliquis. 5. Zyrtec. 6. Aspirin. 7. Flexeril. 8. Vitamin D3. 9. Zetia. 10. Imdur. 11. Mag oxide. 12. Nifedipine. 13. Lasix. 14. Amaryl. 15. Miralax. ALLERGIES: ANGIOTENSIN RECEPTOR BLOCKERS, STATINs, DARVON, KEFLEX, KUSHAL INHIBITORS. REVIEW OF SYSTEMS: As per HPI. Other systems negative. On examination, the patient is currently comfortable. She is not acutely short of breath. Blood pressure 158/76. Heart rate 104 per minute. She is afebrile. Examination of the heart S1, S2. Examination of the lungs decreased breath sounds at the bases. No crackles or wheezing is heard. Abdomen is soft, nontender. Examination of the lower extremities shows no significant edema. CUSTOMER SECURITY CLERK exam grossly intact. The patient moves all four extremities. Labs show sodium 140, potassium 4.3, chloride 104. BUN 45, serum creatinine 2.9 , hemoglobin 9.2. Chest x-ray from yesterday shows evidence of mild bilateral small effusions with mild central venous congestion. UA on this admission shows 3+ protein. WBC 2. ASSESSMENT: 1. Chronic kidney disease, NKF Stage IV. Etiology is diabetic nephropathy/ nephrosclerosis. UA shows 2+ protein. Check office records for further workup. 2. Acute kidney injury associated with congestive heart failure and recent diuresis. Currently the Lasix is on hold. Her chest x-ray from yesterday still shows some pulmonary vascular congestion. The patient is also complaining of shortness of breath on minimal exertion. I will add low dose loop diuretics to be started later on today at 40 mg daily dosing. 3. Congestive heart failure, chronic. Possibly diastolic dysfunction. I do not have an echocardiogram available at this time. Ejection fraction is not known. We have an echocardiogram from 2015 which showed EF of 50 to 55%. Fluid status has improved. 4. Atrial fibrillation with controlled ventricular response. 5. Hypertension currently controlled. PLAN: Resume Lasix at 40 mg po daily. Continue other medications as ordered. Repeat labs in the a.m. Thank you for this consultation. I will continue to follow the patient with you during this hospitalization. VEGA
--- NOTE | 2016-12-28 12:14 | P.PN ---
Subjective Principal diagnosis: Hypertension This is a 71-year-old female who presented to the hospital primarily with symptoms of shortness of breath. Patient does have history of paroxysmal atrial fibrillation, chronic kidney disease, diabetes, hypertension, sleep apnea. Patient had significantly elevated blood pressure and medication adjustments were made yesterday. Blood pressure this morning 125/60. We will discontinue the patient's metoprolol tartrate, and start the patient on labetalol 100 mg by mouth twice a day. Continue Procardia. Patient seen and examined today, feeling well overall, no complaints. BUN 24, creatinine 2.8. 12/27/2016 Patient seen and examined this morning, blood pressure running in the 140s to 150s range. Creat 3.1 today, BUN 48. Lasix has been put on hold, we'll check BUN and creatinine in the morning. 12/28/2016 Patient seen and examined this morning. Creatinine 2.9 today, down from 3.1. Appreciate nephrology consultation. A 6 has been resumed at 40 mg daily. Cardiology's perspective patient may be able to be discharged home and we will make a follow-up appointment for her in the office post discharge. Objective - Vital Signs Vital signs: Vital Signs Temp 97.0 F L 12/28/16 08:00 Pulse 104 H 12/28/16 08:00 Resp 20 12/28/16 08:00 BP 150/75 12/28/16 08:00 Pulse Ox 92 L 12/28/16 08:00 Intake & Output 12/27/16 12/28/16 12/28/16 18:59 06:59 18:59 Intake Total 460 50 240 Output Total 300 Balance 160 50 240 Weight 87.5 kg Intake: IV 50 Unasyn 50 Oral 460 240 Output: Urine 300 Other: Voiding Method Diaper Diaper Diaper # Voids 1 # Bowel Movements 1 - Exam PHYSICAL EXAMINATION: HEENT: Head is atraumatic, normocephalic. Pupils equal, round. Neck is supple. There is no elevated jugular venous pressure. HEART EXAMINATION: Heart S1, S2 normal. No murmur or gallop heard. CHEST EXAMINATION: Lungs are clear to auscultation and precussion. No chest wall tenderness is noted on palpation or with deep breathing. ABDOMEN: Soft, nontender. Bowel sounds are heard. No organomegaly noted. EXTREMITIES: 2+ peripheral pulses with no evidence of peripheral edema and no calf tenderness noted. NEUROLOGIC patient is awake, alert and oriented -3. . - Labs CBC & Chem 7: 12/28/16 05:43 12/28/16 05:43 Labs: Abnormal Lab Results - Last 24 Hours (Table) 12/27/16 12/27/16 12/28/16 Range/Units 17:22 21:06 05:43 RBC 3.06 L (3.80-5.40) m/uL Hgb 9.2 L (11.4-16.0) gm/dL Hct 28.4 L (34.0-46.0) % BUN (7-17) mg/dL Creatinine (0.52-1.04) mg/dL Glucose (74-99) mg/dL POC Glucose (mg/dL) 259 H 272 H (75-99) mg/dL 12/28/16 12/28/16 Range/Units 05:43 06:10 RBC (3.80-5.40) m/uL Hgb (11.4-16.0) gm/dL Hct (34.0-46.0) % BUN 45 H (7-17) mg/dL Creatinine 2.90 H (0.52-1.04) mg/dL Glucose 123 H (74-99) mg/dL POC Glucose (mg/dL) 125 H (75-99) mg/dL Microbiology - Last 24 Hours (Table) 12/26/16 09:50 Blood Culture - Preliminary Blood No Growth after 24 hours Assessment and Plan (1) Accelerated hypertension Status: Acute (2) Diastolic CHF, acute on chronic Status: Acute (3) Acute exacerbation of chronic obstructive airways disease Status: Acute (4) Acute on chronic renal failure Status: Acute (5) Diabetes mellitus Status: Acute (6) Obesity Status: Acute Plan: From cardiology's perspective, we will increase metoprolol tartrate 100 mg daily. Continue patient on her current medications. Okay for discharge from cardiology's perspective. DNP note has been reviewed, I agree with a documented findings and plan of care. Patient was seen and examined.
--- NOTE | 2016-12-28 12:27 | P.PN ---
Subjective This is a 71-year-old female patient of Dr. Garcia with past medical history of atrial fibrillation, coronary artery disease status post myocardial infarction, chronic heart failure, diabetes mellitus type 2, hyperlipidemia, hypertension, chronic kidney disease stage IV, peripheral neuropathy.She states that she went to the dentist on Monday at 3 in the afternoon for a filling of a tooth on the right top and then by the time she was home she found an abscess on the lower right side. She went back to her dentist the following day and there was fluid collection at this area which was aspirated and suctioned out by her dentist and she was given a prescription for penicillin which she did not start with plan to have her return on Monday of this week to have this tooth pulled. On Monday, she developed shortness of breath for 2 hours but had been feeling fatigued, tired with heaviness in her chest for most of the week. She came into [facility] emergency center where she had a chest x-ray that did show perihilar edema. D- dimer was elevated and she underwent a VQ scan which was intermediate probability. Lower extremity duplex was negative for DVT. She was started on IV Lasix and admitted to the selective care unit and has seen cardiology as well as pulmonary medicine in consultation. Blood culture obtained in the emergency center is showing bacillus species not anthracis. Repeat blood culture was drawn this morning. Patient also complains of bladder infection that has been going on since July 2016. She states she has been on continuous antibiotics except for 2 months since then. She follows with a nurse practitioner at Dr. Botello's office. She does state she has a little burning at this time. Her urinalysis is clear, blood small, RBCs 28, bacteria rare, nitrate and leukoesterase are negative. No urine culture was obtained. Patient also gives history of going to [facility] in June 2015 for back surgery and subsequently had an myocardial infarction. She underwent a heart catheterization which damage her kidneys and she has chronic kidney disease stage 4. She also was found to have atrial fibrillation at that time and was placed on amiodarone and eliquis. Patient states that she was falling on a daily basis and had significant pain that kept her bed ridden prior to the back surgery. She now states that she can pivot to a wheelchair and pain is much improved. She fell one week ago while pivoting to her wheelchair as she lost her balance. She laid on the floor until her daughter and grandson could come to the home and help her up. She did not seek any treatment at the time did not feel she had any injury that required treatment. Regarding her breathing, she states she is still a little short of breath. She is currently on oxygen at 4 L nasal cannula and pulse oxing 97%. This is improved as she was previously on BiPAP therapy. She does not have home oxygen. Her lower extremity edema is much improved but she continues to have some edema around her abdomen and neck area. She denies having a sleep study done in the past but does state that she is usually fatigued during the day and tired. Her daughter has been living with her for the past year or more and just moved out a couple weeks ago. Family is looking into getting her an alert button for home. Patient is seen and followed by Dr. Hanson from pulmonary medicine, Dr. Delacruz from cardiology and Dr. Locke from infectious disease. Her blood cultures positive for bacillus species which is most likely contamination. She is currently on Unasyn. Her Lasix is IV push 40 mg every 12 hours. Echocardiogram has been obtained and report is pending. Lower extremity edema is improved. 12/27: Patient's blood pressure has been running high and she has refused to take labetalol as her daughter noticed side effect would impact her kidneys. This is been discontinued and patient started on hydralazine 25 mg twice daily. BUN is 48 and creatinine 3.1. Consult placed with Dr. Botello. Magnesium has been discontinued. She combines of her abdomen being a little bit sore. She denies any diarrhea. She states she is not drinking much. She is currently on Unasyn. Dr. Locke has recommended Augmentin to complete her course of antibiotics for oral infection with follow-up with her dentist upon discharge. 12/28: Patient states that she is a little shaky today. She states she is not eating very much. She has shortness of breath with minimal activity and with talking. Pulse ox is 92% on room air. Patient feels like her shortness of breath is better when her head is down and she feels this is related to her back problems. She was on Lasix 40 mg twice daily and changed to once daily by Dr. Botlelo yesterday. Repeat creatinine is at 2.9. Echocardiogram has been done and report is pending. Objective - Vital Signs Vital signs: Vital Signs Temp 97.0 F L 12/28/16 08:00 Pulse 104 H 12/28/16 08:00 Resp 20 12/28/16 08:00 BP 150/75 12/28/16 08:00 Pulse Ox 92 L 12/28/16 08:00 Intake & Output 12/27/16 12/28/16 12/28/16 18:59 06:59 18:59 Intake Total 460 50 240 Output Total 300 Balance 160 50 240 Weight 87.5 kg Intake: IV 50 Unasyn 50 Oral 460 240 Output: Urine 300 Other: Voiding Method Diaper Diaper Diaper # Voids 1 # Bowel Movements 1 - Exam Gen: This is a 71-year-old morbidly obese female. She is sitting up in bed and appears to be comfortable. HEENT: Head is atraumatic, normocephalic. Pupils equal, round. Sclerae is anicteric. Conjunctiva pink. Mucous membranes of the mouth are moist. Patient is noted to have fillings on the right top and right bottom teeth in the back. No drainage, erythema noted at the site of the molar in the right bottom. NECK: Short and thick Supple. No JVD. No lymphadenopathy. No thyromegaly. LUNGS: Crackles to the bilateral bases. No intercostal retractions. Mild distress is noted with talking HEART: Regular rate and rhythm. Systolic murmur. ABDOMEN: Obese. Soft. Bowel sounds are present. No masses. No tenderness. EXTREMITIES: No pedal edema. No calf tenderness. Dorsalis pedis is +2 bilaterally. NEUROLOGICAL: Patient is awake, alert and oriented x3. Cranial nerves 2 through 12 are grossly intact. - Labs CBC & Chem 7: 12/28/16 05:43 12/28/16 05:43 Labs: Abnormal Lab Results - Last 24 Hours (Table) 12/27/16 12/27/16 12/28/16 Range/Units 17:22 21:06 05:43 RBC 3.06 L (3.80-5.40) m/uL Hgb 9.2 L (11.4-16.0) gm/dL Hct 28.4 L (34.0-46.0) % BUN (7-17) mg/dL Creatinine (0.52-1.04) mg/dL Glucose (74-99) mg/dL POC Glucose (mg/dL) 259 H 272 H (75-99) mg/dL 12/28/16 12/28/16 Range/Units 05:43 06:10 RBC (3.80-5.40) m/uL Hgb (11.4-16.0) gm/dL Hct (34.0-46.0) % BUN 45 H (7-17) mg/dL Creatinine 2.90 H (0.52-1.04) mg/dL Glucose 123 H (74-99) mg/dL POC Glucose (mg/dL) 125 H (75-99) mg/dL Microbiology - Last 24 Hours (Table) 12/26/16 09:50 Blood Culture - Preliminary Blood No Growth after 24 hours Assessment and Plan Plan: 1. Acute hypoxic respiratory failure secondary to acute on chronic heart failure, COPD exacerbation, aortic stenosis. Patient is on Lasix 40 mg daily. Echocardiogram is pending. Patient is followed by pulmonary medicine and cardiology. Continue to monitor I&O and daily weights. 2. Tooth abscess in the right lower jaw. Patient is currently on Unasyn and followed by Dr. Locke. Patient has appointment on Monday to have this extracted. Eliquis is on hold for tooth extraction. Dr. Locke has recommended Augmentin after discharge until follow-up with her dentist. 3. Acute kidney injury with chronic kidney disease stage IV. Monitor kidney function. Avoid nephrotoxic agents. Magnesium discontinued. Labetalol changed to hydralazine. Consult with Dr. Botello. 4. Accelerated hypertension. Continue Lasix, Imdur, hydralazine 25 mg twice daily, Procardia which is been increased to 60 mg daily. 5. Paroxysmal atrial fibrillation. Continue amiodarone 100 mg daily. Eliquis is on hold. 6. Morbid obesity with BMI of 39. 7. Hyperkalemia secondary to chronic renal failure status post Kayexalate and insulin given in the ER. 8. Diabetes mellitus type 2 presented with hyperglycemia secondary to steroid use. 9. Gastrointestinal prophylaxis. Continue Protonix. 10. Hypertension, hypertensive cardiovascular disease. Continue Lasix, Imdur, hydralazine 25 mg twice daily, Procardia which is been increased to 60 mg daily. 11. History of myocardial infarction and coronary artery disease. Continue aspirin 81 mg daily, Imdur 30 mg daily, Nitrostat as needed. 12. Hyperlipidemia. Continue Zetia 10 mg daily. 13. Diabetic peripheral neuropathy and neuropathy secondary to chronic back pain. Continue gabapentin 300 mg twice daily. 14. DVT prophylaxis. Continue Lovenox. Discharge plan: Return home. Impression and plan of care have been directed as dictated by the signing physician. Jessenia Gonzalez nurse practitioner acting as scribe for signing physician.
[2016-12-28] MEDS: FUROSEMIDE 40 MG TAB PO SCH (12:43)
[2016-12-28] MEDS: METOPROLOL SUCCINATE (ER) 100 MG TAB.ER.24H PO SCH (12:43)
--- NOTE | 2016-12-28 13:39 | ECHOF ---
Referral Reason:volume overload, possible CHF , known MEASUREMENTS -------- HEIGHT: 157.5 cm WEIGHT: 98.4 kg BP: 142/76 IVSd: 2.1 cm (0.6 - 1.1) LVIDd: 2.1 cm (3.9 - 5.3) LVPWd: 2.5 cm (0.6 - 1.1) EDV(Teich): 15 ml IVSs: 2.7 cm LVIDs: 1.6 cm LVPWs: 2.0 cm %IVS Thck: 29 % ESV(Teich): 8 ml EF(Teich): 49 % %FS: 23 % SV(Teich): 7 ml LVOT Diam: 1.7 cm Ao Diam: 2.8 cm (2.0 - 3.7) AV Cusp: 1.1 cm (1.5 - 2.6) LA Diam: 4.5 cm (2.7 - 3.8) MV EXCURSION: 9.024 mm (> 18.000) MV EF SLOPE: 32 mm/s (70 - 150) EPSS: 0.6 cm MV E Yared: 1.46 m/s MV DecT: 189 ms MV Dec [place]: 7.7 m/s MV A Yared: 1.56 m/s MV E/A Ratio: 0.93 MV PHT: 55 ms E/E': 46.61 E': 0.03 m/s MR Vmax: 1.91 m/s MR maxP.52 mmHg LVOT Vmax: 0.85 m/s LVOT maxP.89 mmHg LVOT Vmax: 0.89 m/s LVOT Vmean: 0.58 m/s LVOT maxP.18 mmHg LVOT meanP.60 mmHg LVOT Env.Ti: 355 ms LVOT VTI: 20.7 cm AV Vmax: 2.84 m/s AV maxP.19 mmHg LIZZ Vmax, Pt: 0.7 cm LIZZ Vmax: 0.7 cm AV Vmax: 2.92 m/s AV Vmean: 2.39 m/s AV maxP.18 mmHg AV meanP.50 mmHg AV Env.Ti: 318 ms AV VTI: 76.0 cm LIZZ Vmax: 0.7 cm LIZZ (VTI): 0.6 cm LIZZ Vmax, Pt: 0.7 cm TR Vmax: 1.66 m/s TR maxP.07 mmHg RAP: 5.00 mmHg RVSP: 16.07 mmHg FINDINGS -------- Sinus rhythm. This was a technically difficult study with suboptimal views. There is severe concentric left ventricular hypertrophy. Overall left ventricular systolic function is normal with, an EF between 55 - 60 %. The right ventricle is normal in size and function. The left atrium is moderately dilated. The right atrium is normal in size. 1.5mg of Definity was utilized for enhancement of images Aortic valve is trileaflet and is moderately thickened. There is moderate aortic stenosis present. Peak/mean gradient across the Aortic Valve is 34.18mmHg / 24.50mmHg. The mitral valve leaflets are mildly thickened. Mild mitral regurgitation is present. Mild tricuspid regurgitation present. The right ventricular systolic pressure, as measured by Doppler, is 16.07mmHg. Pulmonic valve appears structurally normal. The aortic root size is normal. The pericardium is normal. CONCLUSIONS -------- 1. Sinus rhythm. 2. There is moderate aortic stenosis present. 3. Peak/mean gradient across the Aortic Valve is 34.18mmHg / 24.50mmHg. 4. The mitral valve leaflets are mildly thickened. 5. Mild mitral regurgitation is present. 6. Mild tricuspid regurgitation present. 7. The right ventricular systolic pressure, as measured by Doppler, is 16.07mmHg. 8. Pulmonic valve appears structurally normal. 9. The aortic root size is normal. 10. The pericardium is normal. 11. This was a technically difficult study with suboptimal views. 12. There is severe concentric left ventricular hypertrophy. 13. Overall left ventricular systolic function is normal with, an EF between 55 - 60 %. 14. The right ventricle is normal in size and function. 15. The left atrium is moderately dilated. 16. The right atrium is normal in size. 17. 1.5mg of Definity was utilized for enhancement of images 18. Aortic valve is trileaflet and is moderately thickened. SENIOR RESEARCH FELLOW: Leticia Hoang [facility] [place]
[2016-12-28 14:07] LABS: Glucose,Whole Blood 201 mg/dL (75-99)
[2016-12-28 17:00] LABS: Glucose,Whole Blood 201 mg/dL (75-99)
[2016-12-28 20:42] LABS: Glucose,Whole Blood 217 mg/dL (75-99)
[2016-12-28] MEDS: INSULIN GLARGINE 100 UNIT/ML 10 ML VIAL SQ SCH (21:40)
[2016-12-28] MEDS: ENOXAPARIN 30 MG/0.3 ML SYRINGE SQ SCH (21:46)
[2016-12-29] MEDS: PANTOPRAZOLE 40 MG TABLET PO SCH (06:09)
[2016-12-29 06:10] LABS: Glucose,Whole Blood 135 mg/dL (75-99)
[2016-12-29] MEDS: INSULIN LISPRO (humaLOG) 300 UNIT/3 ML VIAL SQ SCH ×3 (06:10→17:14)
[2016-12-29 06:57] LABS: CH 30.2; CHCM 33.1; HCT 29.4 % (34.0-46.0); HDW 2.75; HGB 9.7 gm/dL (11.4-16.0); MCH 30.2 pg (25.0-35.0); MCHC 32.9 g/dL (31.0-37.0); MCV 91.7 fL (80.0-100.0); Mean Platelet Volume 9.3; RBC 3.21 m/uL (3.80-5.40); RDW 15.5 % (11.5-15.5); WBC 12.2 k/uL (3.8-10.6)
[2016-12-29 07:09] LABS: Calcium 8.7 mg/dL (8.4-10.2); Potassium 4.7 mmol/L (3.5-5.1); Total Bilirubin 0.5 mg/dL (0.2-1.3); Total Protein 6.4 g/dL (6.3-8.2)
[2016-12-29] MEDS: FUROSEMIDE 40 MG TAB PO SCH (09:20)
[2016-12-29] MEDS: AMIODARONE 100 MG TAB PO SCH (09:20)
[2016-12-29] MEDS: DOCUSATE 100 MG CAP PO SCH (09:20)
[2016-12-29] MEDS: LORATADINE 10 MG TAB PO SCH (09:20)
[2016-12-29] MEDS: ISOSORBIDE MONONITRATE ER 30 MG TAB.ER.24H PO SCH (09:21)
[2016-12-29] MEDS: hydrALAZINE HCL 25 MG TAB PO SCH (09:21)
[2016-12-29] MEDS: GABAPENTIN 300 MG CAP PO SCH (09:21)
[2016-12-29] MEDS: CHOLECALCIFEROL 1,000 UNIT TAB PO SCH (09:21)
[2016-12-29] MEDS: EZETIMIBE 10 MG TAB PO SCH (09:21)
[2016-12-29] MEDS: ASPIRIN 81 MG CHEW PO SCH (09:22)
[2016-12-29] MEDS: METOPROLOL SUCCINATE (ER) 100 MG TAB.ER.24H PO SCH (09:22)
[2016-12-29] MEDS: DULoxetine HCL 60 MG CAPSULE.DR PO SCH (09:22)
[2016-12-29] MEDS: AMPICILLIN-SULBACTAM 1.5 GM in SODIUM CHLORIDE 0.9% 50 ML IVPB SCH (09:34)
[2016-12-29 11:58] LABS: Glucose,Whole Blood 204 mg/dL (75-99)
--- NOTE | 2016-12-29 13:22 | P.DS ---
Providers Date of admission: 12/25/16 00:39 Expected date of discharge: 12/29/16 Attending physician: Neville Robertson Consults: 12/25/16 09:15 Consult Physician Routine Consulting Provider: Slim Lee Consult Reason/Comments: COPD exacerbation Do you want consulting provider notified?: Already Contacted 12/25/16 10:58 Consult Physician Routine Consulting Provider: [facility] Consult Reason/Comments: possible CHF, known , chest pressure Do you want consulting provider notified?: Yes 12/25/16 15:41 Consult Physician Routine Consulting Provider: Neville Locke Consult Reason/Comments: gram positive bacilli bacteremia Do you want consulting provider notified?: Already Contacted 12/27/16 09:21 Consult Physician Routine Consulting Provider: Mariam Botello Consult Reason/Comments: DOUGIE Do you want consulting provider notified?: Yes Primary care physician: Meghan [facility] Course: This is a 71-year-old female patient of Dr. Garcia with past medical history of atrial fibrillation, coronary artery disease status post myocardial infarction, chronic heart failure, diabetes mellitus type 2, hyperlipidemia, hypertension, chronic kidney disease stage IV, peripheral neuropathy.She states that she went to the dentist on Monday at 3 in the afternoon for a filling of a tooth on the right top and then by the time she was home she found an abscess on the lower right side. She went back to her dentist the following day and there was fluid collection at this area which was aspirated and suctioned out by her dentist and she was given a prescription for penicillin which she did not start with plan to have her return on Monday of this week to have this tooth pulled. On Monday, she developed shortness of breath for 2 hours but had been feeling fatigued, tired with heaviness in her chest for most of the week. She came into [facility] emergency center where she had a chest x-ray that did show perihilar edema. D- dimer was elevated and she underwent a VQ scan which was intermediate probability. Lower extremity duplex was negative for DVT. She was started on IV Lasix and admitted to the selective care unit and has seen cardiology as well as pulmonary medicine in consultation. Blood culture obtained in the emergency center is showing bacillus species not anthracis. Repeat blood culture was drawn this morning. Patient also complains of bladder infection that has been going on since July 2016. She states she has been on continuous antibiotics except for 2 months since then. She follows with a nurse practitioner at Dr. Botello's office. She does state she has a little burning at this time. Her urinalysis is clear, blood small, RBCs 28, bacteria rare, nitrate and leukoesterase are negative. No urine culture was obtained. Patient also gives history of going to [facility] in June 2015 for back surgery and subsequently had an myocardial infarction. She underwent a heart catheterization which damage her kidneys and she has chronic kidney disease stage 4. She also was found to have atrial fibrillation at that time and was placed on amiodarone and eliquis. Patient states that she was falling on a daily basis and had significant pain that kept her bed ridden prior to the back surgery. She now states that she can pivot to a wheelchair and pain is much improved. She fell one week ago while pivoting to her wheelchair as she lost her balance. She laid on the floor until her daughter and grandson could come to the home and help her up. She did not seek any treatment at the time did not feel she had any injury that required treatment. Regarding her breathing, she states she is still a little short of breath. She is currently on oxygen at 4 L nasal cannula and pulse oxing 97%. This is improved as she was previously on BiPAP therapy. She does not have home oxygen. Her lower extremity edema is much improved but she continues to have some edema around her abdomen and neck area. She denies having a sleep study done in the past but does state that she is usually fatigued during the day and tired. Her daughter has been living with her for the past year or more and just moved out a couple weeks ago. Family is looking into getting her an alert button for home. Patient is seen and followed by Dr. Hanson from pulmonary medicine, Dr. Delacruz from cardiology and Dr. Locke from infectious disease. Her blood cultures positive for bacillus species which is most likely contamination. She is currently on Unasyn. Her Lasix is IV push 40 mg every 12 hours. Echocardiogram has been obtained and report is pending. Lower extremity edema is improved. 12/27: Patient's blood pressure has been running high and she has refused to take labetalol as her daughter noticed side effect would impact her kidneys. This is been discontinued and patient started on hydralazine 25 mg twice daily. BUN is 48 and creatinine 3.1. Consult placed with Dr. Botello. Magnesium has been discontinued. She combines of her abdomen being a little bit sore. She denies any diarrhea. She states she is not drinking much. She is currently on Unasyn. Dr. Locke has recommended Augmentin to complete her course of antibiotics for oral infection with follow-up with her dentist upon discharge. 12/28: Patient states that she is a little shaky today. She states she is not eating very much. She has shortness of breath with minimal activity and with talking. Pulse ox is 92% on room air. Patient feels like her shortness of breath is better when her head is down and she feels this is related to her back problems. She was on Lasix 40 mg twice daily and changed to once daily by Dr. Botello yesterday. Repeat creatinine is at 2.9. Echocardiogram has been done and report is pending. 12/29: BUN 42 and creatinine 2.8. Hemoglobin of 9.7. Her blood glucose running between 128 and 201. Echocardiogram reveals EF of 55-60% with severe concentric left ventricle hypertrophy, moderate aortic stenosis, mild mitral regurgitation, mild tricuspid regurgitation. Patient's breathing status is stable today. She is very anxious to be discharged home. Patient will be discharged home today in stable condition. Patient has been instructed to continue on eliquis until 2 days prior to her tooth extraction. Discharge diagnoses: 1. Acute hypoxic respiratory failure secondary to acute on chronic diastolic heart failure, COPD exacerbation, moderate aortic stenosis. 2. Tooth abscess in the right lower jaw. 3. Acute kidney injury with chronic kidney disease stage IV. 4. Accelerated hypertension. 5. Paroxysmal atrial fibrillation. 6. Morbid obesity with BMI of 39. 7. Hyperkalemia secondary to chronic renal failure 8. Diabetes mellitus type 2 presented with hyperglycemia secondary to steroid use. 9. Gastrointestinal prophylaxis. 10. Hypertension, hypertensive cardiovascular disease. 11. History of myocardial infarction and coronary artery disease. 12. Hyperlipidemia. 13. Diabetic peripheral neuropathy and neuropathy secondary to chronic back pain. Discharge plan: Return home. Impression and plan of care have been directed as dictated by the signing physician. Jessenia Gonzalez nurse practitioner acting as scribe for signing physician. Patient Condition at Discharge: Good Plan - Discharge Summary New Discharge Prescriptions: New Amoxic-Pot Clav 500-125 mg [Augmentin 500-125 mg] 1 tab PO Q12HR #14 tab Furosemide [Lasix] 40 mg PO DAILY #30 tab hydrALAZINE HCL [Apresoline] 25 mg PO BID #60 tab Metoprolol Succinate (ER) [Toprol XL] 100 mg PO DAILY #30 tab NIFEdipine XL [Procardia XL] 60 mg PO DAILY #60 tab Continue DULoxetine HCL [Cymbalta] 60 mg PO DAILY Fish Oil/Dha/Epa [Fish Oil 1,200 mg Fish Oil] 1 cap PO MOWEFR Insulin Glargine [Lantus] 30 units SQ HS Acetaminophen Tab [Tylenol] 650 mg PO Q6H PRN PRN Reason: Fever Amiodarone HCl [Pacerone] 100 mg PO DAILY Apixaban [Eliquis] 2.5 mg PO BID Aspirin EC [Ecotrin Low Dose] 81 mg PO HS Cetirizine HCl [Zyrtec] 10 mg PO DAILY Cholecalciferol [Vitamin D3] 2,000 unit PO HS Cyclobenzaprine [Flexeril] 2.5 - 5 mg PO HS PRN PRN Reason: Muscle Pain Docusate [Colace] 100 mg PO BID Ezetimibe [Zetia] 10 mg PO DAILY Isosorbide Mononitrate ER [Imdur] 30 mg PO DAILY Magnesium Oxide [Mag-Ox] 400 mg PO HS ALPRAZolam [Xanax] 0.25 mg PO DAILY PRN #30 tab PRN Reason: Anxiety Gabapentin [Neurontin] 300 mg PO BID #60 capsule traMADol HCL [Ultram] 50 - 100 mg PO Q4-6H PRN #120 tablet PRN Reason: Pain Polyethylene Glycol 3350 [Miralax] 17 gm PO DAILY Omeprazole 20 mg PO DAILY Cranberry 4200mg-Vitamin C 1 tab PO DAILY Discontinued Metoprolol Tartrate 50 mg PO BID NIFEdipine [NIFEdipine ER] 30 mg PO DAILY Penicillin V Potassium [Pen Vee K] 500 mg PO Q6HR Glimepiride [Amaryl] 2 mg PO DAILY Furosemide [Lasix] 20 mg PO DAILY Discharge Medication List DULoxetine HCL [Cymbalta] 60 mg PO DAILY 08/04/14 [History] Fish Oil/Dha/Epa [Fish Oil 1,200 mg Fish Oil] 1 cap PO MOWEFR 08/04/14 [History] Insulin Glargine [Lantus] 30 units SQ HS 08/04/14 [History] Acetaminophen Tab [Tylenol] 650 mg PO Q6H PRN 05/29/15 [History] Amiodarone HCl [Pacerone] 100 mg PO DAILY 11/22/15 [History] Apixaban [Eliquis] 2.5 mg PO BID 11/22/15 [History] Aspirin EC [Ecotrin Low Dose] 81 mg PO HS 11/22/15 [History] Cetirizine HCl [Zyrtec] 10 mg PO DAILY 11/22/15 [History] Cholecalciferol [Vitamin D3] 2,000 unit PO HS 11/22/15 [History] Cyclobenzaprine [Flexeril] 2.5 - 5 mg PO HS PRN 11/22/15 [History] Docusate [Colace] 100 mg PO BID 11/22/15 [History] Ezetimibe [Zetia] 10 mg PO DAILY 11/22/15 [History] Isosorbide Mononitrate ER [Imdur] 30 mg PO DAILY 11/22/15 [History] Magnesium Oxide [Mag-Ox] 400 mg PO HS 11/22/15 [History] ALPRAZolam [Xanax] 0.25 mg PO DAILY PRN #30 tab 11/27/15 [Rx] Gabapentin [Neurontin] 300 mg PO BID #60 capsule 11/27/15 [Rx] traMADol HCL [Ultram] 50 - 100 mg PO Q4-6H PRN #120 tablet 11/27/15 [Rx] Cranberry 4200mg-Vitamin C 1 tab PO DAILY 12/25/16 [History] Omeprazole 20 mg PO DAILY 12/25/16 [History] Polyethylene Glycol 3350 [Miralax] 17 gm PO DAILY 12/25/16 [History] Amoxic-Pot Clav 500-125 mg [Augmentin 500-125 mg] 1 tab PO Q12HR #14 tab [Rx] Furosemide [Lasix] 40 mg PO DAILY #30 tab 12/29/16 [Rx] Metoprolol Succinate (ER) [Toprol XL] 100 mg PO DAILY #30 tab 12/29/16 [Rx] NIFEdipine XL [Procardia XL] 60 mg PO DAILY #60 tab 12/29/16 [Rx] hydrALAZINE HCL [Apresoline] 25 mg PO BID #60 tab 12/29/16 [Rx] Follow up Appointment(s)/Referral(s): [facility] [Provider Group] - 2 Weeks Meghan Garcia MD [Primary Care Provider] - 1 Week Mariam Botello MD [STAFF PHYSICIAN] - 1 Week Carolina Hanson MD [STAFF PHYSICIAN] - 2 Weeks Activity/Diet/Wound Care/Special Instructions: Follow up with dentist as scheduled or sooner if possible. Discharge Disposition: HOME SELF-CARE
[2016-12-29 16:37] LABS: Glucose,Whole Blood 291 mg/dL (75-99)
[2016-12-29 16:39] VITALS: BP 146/63; PULSE 90; RESP 16; TEMP 97
--- NOTE | 2017-01-04 08:38 | PN ---
PROGRESS NOTE DATE OF SERVICE: 12/29/2016 Patient is seen for followup for chronic kidney disease and acute kidney injury. She did have evidence of fluid overload. The patient was diuresed. She is feeling better. She is currently maintained on Lasix 40 mg p.o. daily. Her serum creatinine is at 2.8 mg/dL from 2.9 yesterday. She has been voiding well. Currently patient is not on any oxygen. She is stable for discharge. She will follow up as outpatient and she should continue with the Lasix at least 40 mg daily. PHYSICAL EXAMINATION: Blood pressure is 147/67, heart rate 83 per minute. Patient is afebrile. Examination of the heart S1, S2. Examination of the lungs, bilateral breath sounds are heard. Decreased breath sounds at bases. Abdomen is soft, obese. Examination of the lower extremities shows no edema bilaterally. RESEARCH ARCHAEOLOGIST exam is grossly intact. LABS: On 12/29/2016 sodium 140, potassium 4.7, BUN 42, serum creatinine 2.8. ASSESSMENT: 1. Chronic kidney disease NKF stage IV with some degree of acute kidney injury which seems to have improved. Patient continues to have some pulmonary vascular congestion, although she is currently without any oxygen and maintained on oral Lasix. We will continue with oral Lasix for now. She should follow up as outpatient in about 1 weeks' time. 2. Congestive heart failure, mainly diastolic dysfunction. 3. Atrial fibrillation with controlled ventricular response. PLAN: Patient can be discharged with Lasix 40 mg p.o. daily and follow up as outpatient in 1 week. MMODL / IJN: [id number] /
== END 2016-12-29 18:48 | disposition home or self-care (01) | DRG 291 ==
LOC: EC 22:58 → 6SEL 12-25 00:39 → 6ICU 12-25 06:41 → 6SEL 12-25 15:25
PROVIDERS: ADMIT Internal Medicine Geriatric Medicine; ATTEND Internal Medicine Geriatric Medicine
DX: I13.2 Hypertensive heart and chronic kidney disease with heart failure and with stage 5 chronic kidney disease, or end stage renal disease (principal); I50.33 Acute on chronic diastolic (congestive) heart failure; J96.01 Acute respiratory failure with hypoxia; N18.4 Chronic kidney disease, stage 4 (severe); N17.9 Acute kidney failure, unspecified; E11.22 Type 2 diabetes mellitus with diabetic chronic kidney disease; I08.3 Combined rheumatic disorders of mitral, aortic and tricuspid valves; J44.1 Chronic obstructive pulmonary disease with (acute) exacerbation; Z68.41 Body mass index [BMI] 40.0-44.9, adult; E66.01 Morbid (severe) obesity due to excess calories; E11.42 Type 2 diabetes mellitus with diabetic polyneuropathy; E11.65 Type 2 diabetes mellitus with hyperglycemia; E78.5 Hyperlipidemia, unspecified; E87.5 Hyperkalemia; G47.33 Obstructive sleep apnea (adult) (pediatric); G89.29 Other chronic pain; I25.10 Atherosclerotic heart disease of native coronary artery without angina pectoris; I25.2 Old myocardial infarction; I48.0 Paroxysmal atrial fibrillation; I48.2 Chronic atrial fibrillation; J30.2 Other seasonal allergic rhinitis; K04.7 Periapical abscess without sinus; K21.9 Gastro-esophageal reflux disease without esophagitis; T38.0X5A Adverse effect of glucocorticoids and synthetic analogues, initial encounter; F32.9 Major depressive disorder, single episode, unspecified; F41.9 Anxiety disorder, unspecified; M51.36 Other intervertebral disc degeneration, lumbar region; M54.6 Pain in thoracic spine; D63.1 Anemia in chronic kidney disease; Z77.22 Contact with and (suspected) exposure to environmental tobacco smoke (acute) (chronic); Z79.01 Long term (current) use of anticoagulants; Z79.4 Long term (current) use of insulin; Z79.899 Other long term (current) drug therapy; Z95.1 Presence of aortocoronary bypass graft; Z86.14 Personal history of Methicillin resistant Staphylococcus aureus infection; Z88.1 Allergy status to other antibiotic agents; Z88.5 Allergy status to narcotic agent; Z88.8 Allergy status to other drugs, medicaments and biological substances; Z82.49 Family history of ischemic heart disease and other diseases of the circulatory system
CPT/HCPCS: 36415; 36600; 71010; 71020; 78582; 80048; 80051; 80053; 80061; 81001; 82550; 82553; 82805; 83036; 83605; 83735; 83880; 84132; 84484; 85025; 85027; 85379; 85610; 85730; 87040; 93306; 93970; 94640; 94760; 96372; 99285

== ENCOUNTER 2016-12-31 11:35 | Inpatient (IN) | payer MEDICARE ==
[2016-12-31] MEDS ORDERED: ALBUTEROL NEBULIZED 2.5 MG/3 ML INHALATION STA (11:43)
[2016-12-31] MEDS ORDERED: IPRATROPIUM 0.5 MG/2.5 ML NEBU INHALATION STA (11:43)
[2016-12-31] MEDS ORDERED: FUROSEMIDE 10 MG/ML 4 ML VIAL IV STA (11:43)
[2016-12-31] MEDS ORDERED: SODIUM POLYSTYRENE SULFONATE 15 GM/60 ML BOTTLE PO STA (11:55)
[2016-12-31] MEDS ORDERED: DEXTROSE 50%-WATER 50 ML SYRINGE IVP STA (11:55)
[2016-12-31] MEDS ORDERED: INSULIN REGULAR 100 UNIT/ML VIAL IV ONE (11:55)
[2016-12-31 12:11] LABS: Basophils # (A) 0.1 k/uL (0-0.2); Basophils % (A) 1 %; CH 30.3; Eosinophils # (A) 0.3 k/uL (0-0.7); Eosinophils % (A) 2 %; HCT 30.6 % (34.0-46.0); HDW 2.76; Luc # (Auto) 0.17; Luc % (Auto) 1; Lymphocytes # (A) 1.6 k/uL (1.0-4.8); Lymphocytes % (A) 10 %; MCH 30.1 pg (25.0-35.0); MCHC 32.7 g/dL (31.0-37.0); MCV 92.1 fL (80.0-100.0); Mean Platelet Volume 9.5; Monocytes # (A) 0.6 k/uL (0-1.0); Monocytes % (A) 4 %; Neutrophils # (A) 12.8 k/uL (1.3-7.7); Neutrophils % (A) 82 %; RBC 3.32 m/uL (3.80-5.40); RDW 15.6 % (11.5-15.5); WBC 15.6 k/uL (3.8-10.6); WBC (Perox) 15.47
[2016-12-31 12:18] LABS: Calcium 8.9 mg/dL (8.4-10.2); Magnesium 1.8 mg/dL (1.6-2.3); Potassium 4.9 mmol/L (3.5-5.1); Total Bilirubin 0.8 mg/dL (0.2-1.3)
[2016-12-31 12:28] LABS: Prothrombin Time 10.6 sec (9.0-12.0)
[2016-12-31 12:30] LABS: Creatine Kinase 24 U/L (30-135)
--- NOTE | 2016-12-31 12:31 | ED ---
General Adult HPI - General Chief complaint: Shortness of Breath Stated complaint: CRISTHIAN Time Seen by Provider: 12/31/16 11:35 Source: EMS, RN notes reviewed Mode of arrival: EMS Limitations: no limitations - History of Present Illness Initial comments: This is a 71-year-old female who presents emergency Department complaining of difficulty breathing. Patient states she was just discharged from the hospital for congestive heart failure on and they difficulty breathing has gotten worse since then. Patient denies any chest pain or palpitations. Patient denies any fever or cough. Patient states that she received a treatment of albuterol on the way in by the emesis and did not notice much difference. Patient denies any swelling to her legs but states that swelling is not typically seen in her legs. Patient denies any abdominal pain patient denies nausea vomiting or diarrhea. Patient denies any lightheadedness dizziness or near syncopal episode. Patient denies headache patient denies numbness weakness. - Related Data Home Medications Medication Instructions Recorded Confirmed DULoxetine HCL [Cymbalta] 60 mg PO DAILY 08/04/14 12/25/16 Fish Oil/Dha/Epa [Fish Oil 1,200 1 cap PO MOWEFR 08/04/14 12/25/16 mg Fish Oil] Insulin Glargine [Lantus] 30 units SQ HS 08/04/14 12/25/16 Acetaminophen Tab [Tylenol] 650 mg PO Q6H PRN 05/29/15 12/25/16 Amiodarone HCl [Pacerone] 100 mg PO DAILY 11/22/15 12/25/16 Apixaban [Eliquis] 2.5 mg PO BID 11/22/15 12/25/16 Aspirin EC [Ecotrin Low Dose] 81 mg PO HS 11/22/15 12/25/16 Cetirizine HCl [Zyrtec] 10 mg PO DAILY 11/22/15 12/25/16 Cholecalciferol [Vitamin D3] 2,000 unit PO HS 11/22/15 12/25/16 Cyclobenzaprine [Flexeril] 2.5 - 5 mg PO HS PRN 11/22/15 12/25/16 Docusate [Colace] 100 mg PO BID 11/22/15 12/25/16 Ezetimibe [Zetia] 10 mg PO DAILY 11/22/15 12/25/16 Isosorbide Mononitrate ER [Imdur] 30 mg PO DAILY 11/22/15 12/25/16 Magnesium Oxide [Mag-Ox] 400 mg PO HS 11/22/15 12/25/16 Cranberry 4200mg-Vitamin C 1 tab PO DAILY 12/25/16 12/25/16 Omeprazole 20 mg PO DAILY 12/25/16 12/25/16 Polyethylene Glycol 3350 [Miralax] 17 gm PO DAILY 12/25/16 12/25/16 Previous Rx's Medication Instructions Recorded ALPRAZolam [Xanax] 0.25 mg PO DAILY PRN #30 tab 11/27/15 Gabapentin [Neurontin] 300 mg PO BID #60 capsule 11/27/15 traMADol HCL [Ultram] 50 - 100 mg PO Q4-6H PRN #120 11/27/15 tablet Amoxic-Pot Clav 500-125 mg 1 tab PO Q12HR #14 tab 12/29/16 [Augmentin 500-125 mg] Furosemide [Lasix] 40 mg PO DAILY #30 tab 12/29/16 Metoprolol Succinate (ER) [Toprol 100 mg PO DAILY #30 tab 12/29/16 XL] NIFEdipine XL [Procardia XL] 60 mg PO DAILY #60 tab 12/29/16 hydrALAZINE HCL [Apresoline] 25 mg PO BID #60 tab 12/29/16 Allergies Allergy/AdvReac Type Severity Reaction Status Date / Time KUSHAL Inhibitors Allergy Unknown Verified 12/31/16 11:49 ARB-Angiotensin Receptor Allergy Unknown Verified 12/31/16 11:49 Antagonist cephalexin monohydrate Allergy Rash/Hives Verified 12/31/16 11:49 [From Keflex] propoxyphene HCl Allergy Unknown Verified 12/31/16 11:49 [From Darvon] [id number] Reductase Allergy Unknown Verified 12/31/16 11:49 Inhibitor Review of Systems ROS Statement: Those systems with pertinent positive or pertinent negative responses have been documented in the HPI. ROS Other: All systems not noted in ROS Statement are negative. Past Medical History Past Medical History: Atrial Fibrillation, Coronary Artery Disease (CAD), Heart Failure, Diabetes Mellitus, GERD/Reflux, Hyperlipidemia, Hypertension, Myocardial Infarction ([place]), Pneumonia, Renal Disease, Skin Disorder, Sleep Apnea /CPAP/BIPAP Additional Past Medical History / Comment(s): possible sleep apnea, no established diagnosis; chronic kidney disease diangosed may 2015; aortic stenois ; peripheral neuropathy upper and lower extremity Last Myocardial Infarction Date:: 05/28/2015 History of Any Multi-Drug Resistant Organisms: MRSA Date of last positivie culture/infection: 2009 MDRO Source:: wounds Past Surgical History: Back Surgery, Cholecystectomy, Heart Catheterization, Hysterectomy Additional Past Surgical History / Comment(s): Lumbar surgery with decompression off L3-L4 L4-L5 with fusion March 2011 with previous hardware failure L4-L5 and extension of fusion to S1. new back sugery including t8 and t9 Past Anesthesia/Blood Transfusion Reactions: No Reported Reaction Additional Past Anesthesia/Blood Transfusion Reaction / Comment(s): Possible confusion that resolved. Past Psychological History: Anxiety, Depression Smoking Status: Never smoker Past Drug Use History: None Reported - Past Family History Father Additional Family Medical History / Comment(s): Brain aneurysm ; age 72 Sister(s) Family Medical History: Hypertension Additional Family Medical History / Comment(s): Aortic stenosis; mitral valve disease Mother Family Medical History: AFIB, CVA/TIA, Hypertension Additional Family Medical History / Comment(s): mother age 83 Daughter(s) Family Medical History: Asthma Son(s) Family Medical History: Asthma General Exam - General Exam Comments Initial Comments: GENERAL: Patient is well-developed and well-nourished. Patient is nontoxic and well- hydrated and is in moderate distress. ENT: Neck is soft and supple. No significant lymphadenopathy is noted. Oropharynx is clear. Moist mucous membranes. Neck has full range of motion without eliciting any pain. EYES: The sclera were anicteric and conjunctiva were pink and moist. Extraocular movements were intact and pupils were equal round and reactive to light. Eyelids were unremarkable. PULMONARY: Diminished breath sounds throughout CARDIOVASCULAR: There is a regular rate and rhythm without any murmurs gallops or rubs. ABDOMEN: Soft and nontender with normal bowel sounds. No palpable organomegaly was noted. There is no palpable pulsatile mass. SKIN: Skin is clear with no lesions or rashes and otherwise unremarkable. NEUROLOGIC: Patient is alert and oriented x3. Cranial nerves II through XII are grossly intact. Motor and sensory are also intact. Normal speech, volume and content. Symmetrical smile. MUSCULOSKELETAL: Normal extremities with adequate strength and full range of motion. No lower extremity swelling or edema. No calf tenderness. LYMPHATICS: No significant lymphadenopathy is noted PSYCHIATRIC: Normal psychiatric evaluation. Normal interpersonal interactions appears functionally intact in deals appropriately with others. No signs of depression. No signs of anxiety. Limitations: no limitations Course Vital Signs 12/31/16 12/31/16 12/31/16 11:35 11:43 11:54 Temperature 99.3 F Pulse Rate 76 75 Respiratory 24 Rate Blood Pressure 174/70 O2 Sat by Pulse 88 L 94 L Oximetry 12/31/16 12/31/16 12:18 13:14 Temperature 97.4 F L Pulse Rate 74 82 Respiratory 18 Rate Blood Pressure 149/65 O2 Sat by Pulse 96 Oximetry Medical Decision Making - Medical Decision Making EKG shows normal sinus rhythm at 77 bpm OH interval is 142 QRS is 138 QT interval is 470 QTC is 540. Patient's EKG shows a right bundle branch block. Which was seen on previous EKG. Chest x-ray shows congestive heart failure. I started the patient on Lasix and Nitropaste. I spoke with Dr. Dewey he agreed to admit the patient admitted the patient remaining orders to continue the Lasix Nitropaste on the floor. I consult cardiology. - Lab Data Result diagrams: 12/31/16 11:03 12/31/16 11:03 Lab Results 12/31/16 12/31/16 12/31/16 Range/Units 11:03 11:03 11:03 WBC 15.6 H (3.8-10.6) k/uL RBC 3.32 L (3.80-5.40) m/uL Hgb 10.0 L (11.4-16.0) gm/dL Hct 30.6 L (34.0-46.0) % MCV 92.1 (80.0-100.0) fL MCH 30.1 (25.0-35.0) pg MCHC 32.7 (31.0-37.0) g/dL RDW 15.6 H (11.5-15.5) % Plt Count 275 (150-450) k/uL Neutrophils % 82 % Lymphocytes % 10 % Monocytes % 4 % Eosinophils % 2 % Basophils % 1 % Neutrophils # 12.8 H (1.3-7.7) k/uL Lymphocytes # 1.6 (1.0-4.8) k/uL Monocytes # 0.6 (0-1.0) k/uL Eosinophils # 0.3 (0-0.7) k/uL Basophils # 0.1 (0-0.2) k/uL PT (9.0-12.0) sec INR (<1.2) APTT (22.0-30.0) sec Sodium 141 (137-145) mmol/L Potassium 4.9 (3.5-5.1) mmol/L Chloride 104 (98-107) mmol/L Carbon Dioxide 27 (22-30) mmol/L Anion Gap 10 mmol/L BUN 39 H (7-17) mg/dL Creatinine 2.84 H (0.52-1.04) mg/dL Est GFR (MDRD) Af Amer 20 (>60 ml/min/1.73 sqM) Est GFR (MDRD) Non-Af 16 (>60 ml/min/1.73 sqM) Glucose 199 H (74-99) mg/dL Calcium 8.9 (8.4-10.2) mg/dL Magnesium 1.8 (1.6-2.3) mg/dL Total Bilirubin 0.8 (0.2-1.3) mg/dL AST 22 (14-36) U/L ALT 35 (9-52) U/L Alkaline Phosphatase 133 H (38-126) U/L Total Creatine Kinase 24 L (30-135) U/L CK-MB (CK-2) 0.6 (0.0-2.4) ng/mL CK-MB (CK-2) Rel Index 2.5 Troponin I <0.012 (0.000-0.034) ng/mL NT-Pro-B Natriuret Pep pg/mL Total Protein 7.0 (6.3-8.2) g/dL Albumin 3.5 (3.5-5.0) g/dL 12/31/16 12/31/16 Range/Units 11:03 11:03 WBC (3.8-10.6) k/uL RBC (3.80-5.40) m/uL Hgb (11.4-16.0) gm/dL Hct (34.0-46.0) % MCV (80.0-100.0) fL MCH (25.0-35.0) pg MCHC (31.0-37.0) g/dL RDW (11.5-15.5) % Plt Count (150-450) k/uL Neutrophils % % Lymphocytes % % Monocytes % % Eosinophils % % Basophils % % Neutrophils # (1.3-7.7) k/uL Lymphocytes # (1.0-4.8) k/uL Monocytes # (0-1.0) k/uL Eosinophils # (0-0.7) k/uL Basophils # (0-0.2) k/uL PT 10.6 (9.0-12.0) sec INR 1.0 (<1.2) APTT 27.0 (22.0-30.0) sec Sodium (137-145) mmol/L Potassium (3.5-5.1) mmol/L Chloride (98-107) mmol/L Carbon Dioxide (22-30) mmol/L Anion Gap mmol/L BUN (7-17) mg/dL Creatinine (0.52-1.04) mg/dL Est GFR (MDRD) Af Amer (>60 ml/min/1.73 sqM) Est GFR (MDRD) Non-Af (>60 ml/min/1.73 sqM) Glucose (74-99) mg/dL Calcium (8.4-10.2) mg/dL Magnesium (1.6-2.3) mg/dL Total Bilirubin (0.2-1.3) mg/dL AST (14-36) U/L ALT (9-52) U/L Alkaline Phosphatase (38-126) U/L Total Creatine Kinase (30-135) U/L CK-MB (CK-2) (0.0-2.4) ng/mL CK-MB (CK-2) Rel Index Troponin I (0.000-0.034) ng/mL NT-Pro-B Natriuret Pep 7880 pg/mL Total Protein (6.3-8.2) g/dL Albumin (3.5-5.0) g/dL Critical Care Time Critical Care Time: Yes Total Critical Care Time: 35 Disposition Clinical Impression: Pulmonary edema, acute Disposition: ADMITTED IP TO THIS HOSP Referrals: Meghan Garcia MD [Primary Care Provider] - 1-2 days Time of Disposition: 13:25
[2016-12-31 12:44] LABS: Creatine Kinase MB 0.6 ng/mL (0.0-2.4); Troponin I <0.012 ng/mL (0.000-0.034)
--- NOTE | 2016-12-31 13:19 | XR ---
EXAMINATION TYPE: XR chest 2V DATE OF EXAM: 12/31/2016 COMPARISON: Chest x-ray December 27, 2016 HISTORY: Shortness of breath TECHNIQUE: Frontal and lateral views of the chest are obtained. FINDINGS: The osseous structures are demineralized. There is partial visualization of fixation hardw are in the lumbar spine. There is redemonstration of cardiomegaly with increasing central vascular co ngestion. There are persistent small bilateral pleural effusions seen best on lateral chest x-ray. No pneumothorax is seen bilaterally. Low lung volumes are redemonstrated. IMPRESSION: Suspect CHF exacerbation stable or slightly more prominent versus prior study as there i s cardiomegaly with mild to moderate central vascular congestion and small bilateral pleural effusion s all redemonstrated.
[2016-12-31] MEDS ORDERED: FUROSEMIDE 10 MG/ML 4 ML VIAL IV SCH (13:30)
[2016-12-31] MEDS ORDERED: POLYETHYLENE GLYCOL 3350 17 GM POWD.PACK PO PRN (16:28)
[2016-12-31] MEDS ORDERED: CYCLOBENZAPRINE 5 MG TAB PO PRN (16:28)
[2016-12-31] MEDS ORDERED: traMADol 50 MG TAB PO PRN (16:28)
[2016-12-31 16:51] LABS: Glucose,Whole Blood 247 mg/dL (75-99)
[2016-12-31] MEDS: NITROGLYCERIN OINT 1 INCH/GM PACKET TOPICAL SCH ×2 (19:03→23:12)
[2016-12-31] MEDS: ALPRAZolam 0.25 MG TAB PO PRN (19:54)
[2016-12-31] MEDS: FUROSEMIDE 10 MG/ML 4 ML VIAL IV SCH (19:55)
[2016-12-31] MEDS: ASPIRIN 81 MG PO SCH (19:55)
[2016-12-31] MEDS: DOCUSATE 100 MG CAP PO SCH (19:55)
[2016-12-31] MEDS: AMOXIC-POT CLAV 500-125 MG 1 EACH TAB PO SCH (19:55)
[2016-12-31] MEDS: APIXABAN 2.5 MG TABLET PO SCH (19:55)
[2016-12-31] MEDS: GABAPENTIN 300 MG CAP PO SCH (19:56)
[2016-12-31] MEDS: MAGNESIUM OXIDE 400 MG TAB PO SCH (19:56)
[2016-12-31] MEDS: IPRATROPIUM-ALBUTEROL 3 ML NEB INHALATION SCH (20:13)
[2016-12-31 20:36] LABS: Glucose,Whole Blood 178 mg/dL (75-99)
[2016-12-31] MEDS ORDERED: hydrALAZINE HCL 25 MG TAB PO SCH (21:00)
[2016-12-31] MEDS: INSULIN GLARGINE 100 UNIT/ML 10 ML VIAL SQ SCH (21:36)
[2017-01-01 03:49] LABS: Basophils # (A) 0.1 k/uL (0-0.2); Basophils % (A) 1 %; CH 30.3; CHCM 32.7; Eosinophils # (A) 0.4 k/uL (0-0.7); Eosinophils % (A) 4 %; HCT 26.3 % (34.0-46.0); HDW 2.74; Luc # (Auto) 0.12; Luc % (Auto) 1; Lymphocytes # (A) 1.6 k/uL (1.0-4.8); Lymphocytes % (A) 16 %; MCH 29.9 pg (25.0-35.0); MCV 93.2 fL (80.0-100.0); Mean Platelet Volume 9.5; Monocytes # (A) 0.5 k/uL (0-1.0); Monocytes % (A) 5 %; Neutrophils # (A) 7.5 k/uL (1.3-7.7); Neutrophils % (A) 74 %; RBC 2.83 m/uL (3.80-5.40); RDW 15.6 % (11.5-15.5); WBC 10.1 k/uL (3.8-10.6); WBC (Perox) 10.96
[2017-01-01 03:59] LABS: HGB 8.4 gm/dL (11.4-16.0)
[2017-01-01 04:19] LABS: Calcium 8.6 mg/dL (8.4-10.2); Magnesium 1.9 mg/dL (1.6-2.3); Potassium 4.3 mmol/L (3.5-5.1); Total Bilirubin 0.5 mg/dL (0.2-1.3); Total Protein 5.9 g/dL (6.3-8.2)
[2017-01-01 06:01] LABS: Glucose,Whole Blood 163 mg/dL (75-99)
[2017-01-01] MEDS: PANTOPRAZOLE 40 MG TABLET PO SCH (06:21)
--- NOTE | 2017-01-01 08:39 | P.HPIM ---
History of Present Illness H&P Date: 12/31/16 Chief Complaint: acute respiratory failure secondary to acute diastolic heart failure. This is a 71-year-old female patient of Dr. Garcia with past medical history of atrial fibrillation, coronary artery disease status post myocardial infarction, chronic heart failure, diabetes mellitus type 2, hyperlipidemia, hypertension, chronic kidney disease stage IV, peripheral neuropathy.patient was recently hospitalized at [facility] in 2016 and she was discharged on 12/29/2016 after she was treated for acute diastolic heart failure and tooth abscess for which she was started on IV antibiotic initially and subsequent she was switched to oral Augmentin and she was placed back on her Eliquis, she was given instruction to stop the Eliquis for 48 hours prior to pulling her tooth next week. Patient was doing fine up until yesterday when she developed to have an increased shortness breath and she ended up coming to the ER at [facility] again with significant shortness of breath, she was suggestive of pulmonary edema and she was quite tight in her chest she was admitted to the hospital for evaluation bipolar medicine cardiology was started on Lasix 40 mg IV push every 8 hours, pulmonary as stated earlier and cardiology consultation were obtained. Review of Systems Constitutional: Reports weakness, Reports weight gain, Denies anorexia, Denies chronic headaches, Denies lethargy, Denies malaise Eyes: denies blurred vision, denies bulging eye, denies decreased vision Ears: deny: decreased hearing Ears, nose, mouth and throat: Reports dental pain, Denies dysphagia, Denies neck lump, Denies swelling in throat, Denies sore throat Cardiovascular: Reports decreased exercise tolerance, Reports dyspnea on exertion, Reports high blood pressure, Reports irregular heart beat, Reports shortness of breath, Denies chest pain, Denies rapid heart beat, Denies syncope Respiratory: Reports cough with sputum, Reports dyspnea, Reports sleep apnea, Reports wheezing, Denies congestion, Denies cough, Denies home oxygen, Denies snoring Gastrointestinal: Denies abdominal pain, Denies bloating, Denies BRBPR, Denies excessive gas, Denies heartburn, Denies melena, Denies nausea, Denies vomiting Genitourinary: Denies dysuria, Denies hematuria Menstruation: Reports postmenopausal Musculoskeletal: Reports gait dysfunction, Reports low back pain, Denies myalgias Musculoskeletal: absent: ankle pain, ankle stiffness, ankle swelling, elbow pain , elbow stiffness, elbow swelling, foot pain, foot stiffness, foot swelling, hand pain, hand stiffness, hand swelling, hip pain, hip stiffness, hip swelling , knee pain, knee stiffness, knee swelling, shoulder pain, shoulder stiffness, shoulder swelling, wrist pain, wrist stiffness, wrist swelling Integumentary: Denies pruritus, Denies rash Neurological: Denies numbness, Denies weakness Psychiatric: Denies anxiety, Denies depression Endocrine: Denies fatigue, Denies weight change Past Medical History Past Medical History: Atrial Fibrillation, Coronary Artery Disease (CAD), Heart Failure, Diabetes Mellitus, GERD/Reflux, Hyperlipidemia, Hypertension, Myocardial Infarction ([place]), Pneumonia, Renal Disease, Skin Disorder, Sleep Apnea /CPAP/BIPAP Additional Past Medical History / Comment(s): possible sleep apnea, no established diagnosis; chronic kidney disease diangosed may 2015; aortic stenois ; peripheral neuropathy upper and lower extremity Last Myocardial Infarction Date:: 05/28/2015 History of Any Multi-Drug Resistant Organisms: MRSA Date of last positivie culture/infection: 2009 MDRO Source:: wounds Past Surgical History: Back Surgery, Cholecystectomy, Heart Catheterization, Hysterectomy Additional Past Surgical History / Comment(s): Lumbar surgery with decompression off L3-L4 L4-L5 with fusion March 2011 with previous hardware failure L4-L5 and extension of fusion to S1. new back sugery including t8 and t9 Past Anesthesia/Blood Transfusion Reactions: No Reported Reaction Additional Past Anesthesia/Blood Transfusion Reaction / Comment(s): Possible confusion that resolved. Past Psychological History: Anxiety, Depression Smoking Status: Never smoker Past Drug Use History: None Reported - Past Family History Father Additional Family Medical History / Comment(s): Brain aneurysm ; age 72 Sister(s) Family Medical History: Hypertension Additional Family Medical History / Comment(s): Aortic stenosis; mitral valve disease Mother Family Medical History: AFIB, CVA/TIA, Hypertension Additional Family Medical History / Comment(s): mother age 83 Daughter(s) Family Medical History: Asthma Son(s) Family Medical History: Asthma Medications and Allergies Home Medications Medication Instructions Recorded Confirmed Type DULoxetine HCL [Cymbalta] 60 mg PO DAILY 08/04/14 12/31/16 History Fish Oil/Dha/Epa [Fish Oil 1,200 1 cap PO MOWEFR 08/04/14 12/31/16 History mg Fish Oil] Insulin Glargine [Lantus] 30 units SQ HS 08/04/14 12/31/16 History Acetaminophen Tab [Tylenol] 650 mg PO Q6H PRN 05/29/15 12/31/16 History Amiodarone HCl [Pacerone] 100 mg PO DAILY 11/22/15 12/31/16 History Apixaban [Eliquis] 2.5 mg PO BID 11/22/15 12/31/16 History Aspirin EC [Ecotrin Low Dose] 81 mg PO HS 11/22/15 12/31/16 History Cetirizine HCl [Zyrtec] 10 mg PO DAILY 11/22/15 12/31/16 History Cyclobenzaprine [Flexeril] 5 mg PO HS PRN 11/22/15 12/31/16 History Docusate [Colace] 100 mg PO BID 11/22/15 12/31/16 History Ezetimibe [Zetia] 10 mg PO DAILY 11/22/15 12/31/16 History Isosorbide Mononitrate ER [Imdur] 30 mg PO DAILY 11/22/15 12/31/16 History Magnesium Oxide [Mag-Ox] 400 mg PO HS 11/22/15 12/31/16 History ALPRAZolam [Xanax] 0.25 mg PO DAILY PRN #30 tab 11/27/15 12/31/16 Rx Gabapentin [Neurontin] 300 mg PO BID #60 capsule 11/27/15 12/31/16 Rx Cranberry 4200mg-Vitamin C 1 tab PO DAILY 12/25/16 12/31/16 History Omeprazole 20 mg PO DAILY 12/25/16 12/31/16 History Polyethylene Glycol 3350 [Miralax] 17 gm PO DAILY PRN 12/25/16 12/31/16 History Amoxic-Pot Clav 500-125 mg 1 tab PO Q12HR #14 tab 12/29/16 12/31/16 Rx [Augmentin 500-125 mg] Furosemide [Lasix] 40 mg PO DAILY #30 tab 12/29/16 12/31/16 Rx Metoprolol Succinate (ER) [Toprol 100 mg PO DAILY #30 tab 12/29/16 12/31/16 Rx XL] NIFEdipine XL [Procardia XL] 60 mg PO DAILY #60 tab 12/29/16 12/31/16 Rx hydrALAZINE HCL [Apresoline] 25 mg PO BID #60 tab 12/29/16 12/31/16 Rx Cholecalciferol (Vitamin D3) 2,000 unit PO DAILY 12/31/16 12/31/16 History [Vitamin D3] traMADol HCL [Ultram] 100 mg PO Q4H PRN 12/31/16 12/31/16 History Allergies Allergy/AdvReac Type Severity Reaction Status Date / Time KUSHAL Inhibitors Allergy Swelling Verified 12/31/16 13:44 ARB-Angiotensin Receptor Allergy Swelling Verified 12/31/16 13:44 Antagonist cephalexin monohydrate Allergy Rash/Hives Verified 12/31/16 13:44 [From Keflex] propoxyphene HCl AdvReac Hallucinati Verified 12/31/16 13:44 [From Darvon] ons [id number]-Tbq Reductase AdvReac Myalgia Verified 12/31/16 13:44 Inhibitor Physical Exam Vitals: Vital Signs Temp Pulse Resp BP Pulse Ox 12/31/16 15:40 79 18 135/76 95 12/31/16 14:33 97.9 F 77 18 157/70 95 12/31/16 13:14 97.4 F L 82 18 149/65 96 12/31/16 12:18 74 12/31/16 11:54 75 12/31/16 11:43 94 L 12/31/16 11:35 99.3 F 76 24 174/70 88 L Intake and Output 12/31/16 12/31/16 12/31/16 06:59 14:59 22:59 Other: Weight 97.976 kg Patient Weight 01/01/17 06:59 Weight 97.976 kg - Constitutional General appearance: mild distress, obese - EENT Eyes: anicteric sclerae, EOMI, PERRLA, no ptosis, no scleral icterus, normal appearance ENT: hearing grossly normal, NA/AT, normal oropharynx, no thrush Ears: bilateral: normal - Neck Neck: no lymphadenopathy, normal ROM, no rigidity, no stridor, no thyromegaly Carotids: bilateral: upstroke normal Thyroid: bilateral: normal size - Respiratory Respiratory: bilateral: diminished, dullness, rales, wheezing, prolonged expiration, negative: rhonchi - Cardiovascular Rhythm: regularly irregular Heart sounds: normal: S1, S2 Abnormal Heart Sounds: systolic murmur, no rub, S3 Gallop, no click - Gastrointestinal General gastrointestinal: normal bowel sounds, soft, no splenomegaly, no tenderness, no umbilical hernia, no ventral hernia - Integumentary Integumentary: normal, normal turgor - Neurologic Neurologic: CNII-XII intact - Musculoskeletal Musculoskeletal: generalized weakness, strength equal bilaterally - Psychiatric Psychiatric: A&O x's 3, appropriate affect, intact judgment & insight Results CBC & Chem 7: 01/01/17 03:39 01/01/17 03:39 Labs: Abnormal Lab Results - Last 24 Hours (Table) 12/31/16 12/31/16 12/31/16 Range/Units 11:03 11:03 11:03 WBC 15.6 H (3.8-10.6) k/uL RBC 3.32 L (3.80-5.40) m/uL Hgb 10.0 L (11.4-16.0) gm/dL Hct 30.6 L (34.0-46.0) % RDW 15.6 H (11.5-15.5) % Neutrophils # 12.8 H (1.3-7.7) k/uL BUN 39 H (7-17) mg/dL Creatinine 2.84 H (0.52-1.04) mg/dL Glucose 199 H (74-99) mg/dL Alkaline Phosphatase 133 H (38-126) U/L Total Creatine Kinase 24 L (30-135) U/L Thrombosis Risk Factor Assmnt - DVT/VTE Prophylaxis DVT/VTE Prophylaxis: Pharmacologic Prophylaxis ordered, Mechanical Prophylaxis ordered Assessment and Plan Plan: Assessment and plan: 1. Acute hypoxic respiratory failure secondary to acute on chronic diastolic heart failure, COPD exacerbation, moderate aortic stenosis. Continue patient on Lasix 40 mg IV push every 8 hours, continue oxygen support, continue patient on Imdur 30 mg orally once every day, Toprol-XLl 100 mg orally once every day. O once every day, continue hydralazine 25 mg orally twice every day, discontinue nifedipine for now. And output and daily weight, cardiology consultation. 2. Tooth abscess in the right lower jaw. Continue Augmentin 875 mg orally twice every day. 3. Acute kidney injury with chronic kidney disease stage IV. Back to baseline. 4. Accelerated hypertension. Continue metoprolol 100 mg orally once every day. 5. Paroxysmal atrial fibrillation. Continue amiodarone 100 mg orally once every day, Eliquis 2.5 mg orally twice every day. 6. Morbid obesity with BMI of 39. 7. Hyperkalemia secondary to chronic renal failure . Resolved. 8. Diabetes mellitus type 2 . Continue Lantus 32 units at bedtime along with a sliding scale insulin. 9. GERD. Continue omeprazole 20 mg orally once every day. 10. Hypertension, hypertensive cardiovascular disease. Continue hydralazine 25 mg orally twice every day, Toprol-XL 100 mg orally once every day discontinue nifedipine. 11. History of myocardial infarction and coronary artery disease. Continue aspirin 81 mg once every day, Toprol-XL 100 mg orally once every day, Imdur 30 mg orally once every day, Zetia 10 mg orally once every day. 12. Hyperlipidemia. 13. Diabetic peripheral neuropathy and neuropathy secondary to chronic back pain. Continue gabapentin 300 mg orally twice every day. 14. Depression. Continue Cymbalta 60 mg orally once every day. 15. DVT prophylaxis. Continue patient on Eliquis 2.5 mg orally twice every day as well as bilateral knee-high TERRIE hose. 16. Prophylaxis. Continue patient on PPI. 17. Full code. 18. The to inpatient. Estimate length of stay 2 midnights.
[2017-01-01] MEDS: BUDESONIDE 1 MG/2 ML NEBU INHALATION SCH ×2 (08:50→20:04)
[2017-01-01] MEDS: IPRATROPIUM-ALBUTEROL 3 ML NEB INHALATION SCH ×4 (08:50→20:04)
[2017-01-01] MEDS ORDERED: AMIODARONE 100 MG TAB PO SCH (09:00)
[2017-01-01] MEDS ORDERED: METOPROLOL SUCCINATE (ER) 100 MG TAB.ER.24H PO SCH (09:00)
[2017-01-01] MEDS ORDERED: [UNRECOGNIZED DRUG - OTHER] PO SCH (09:00)
[2017-01-01] MEDS ORDERED: CRANBERRY 4200 MG PO SCH (09:00)
[2017-01-01] MEDS: APIXABAN 2.5 MG TABLET PO SCH ×2 (09:59→20:26)
[2017-01-01] MEDS: CHOLECALCIFEROL 1,000 UNIT TAB PO SCH (09:59)
[2017-01-01] MEDS: LORATADINE 10 MG TAB PO SCH (09:59)
[2017-01-01] MEDS: GABAPENTIN 300 MG CAP PO SCH ×2 (09:59→20:26)
[2017-01-01] MEDS: ISOSORBIDE MONONITRATE ER 30 MG TAB.ER.24H PO SCH (09:59)
[2017-01-01] MEDS: DOCUSATE 100 MG CAP PO SCH ×2 (09:59→20:26)
[2017-01-01] MEDS: EZETIMIBE 10 MG TAB PO SCH (09:59)
[2017-01-01] MEDS: DULoxetine HCL 60 MG CAPSULE.DR PO SCH (09:59)
[2017-01-01] MEDS: NITROGLYCERIN OINT 1 INCH/GM PACKET TOPICAL SCH ×2 (10:00→10:16)
[2017-01-01] MEDS: FUROSEMIDE 10 MG/ML 4 ML VIAL IV SCH (10:00)
[2017-01-01] MEDS: hydrALAZINE HCL 50 MG TAB PO SCH ×2 (10:10→20:25)
[2017-01-01] MEDS ORDERED: METOPROLOL SUCCINATE (ER) 50 MG TAB.ER.24H PO SCH (10:17)
[2017-01-01] MEDS: ACETAMINOPHEN TAB 325 MG TAB PO PRN (10:22)
[2017-01-01] MEDS ORDERED: NIFEdipine XL 30 MG TAB.ER.24 PO STA (10:30)
--- NOTE | 2017-01-01 10:34 | P.CRDCN ---
History of Present Illness History of present illness: Impression Acute and chronic diastolic heart failure Patient recently discharged from the hospital after she was admitted for shortness of breath at rest Elevated blood pressures once again I have recommended treatment with beta blockers and nifedipine, Toprol-XL 100 mg daily and nifedipine XL 60 mg daily which controlled her blood pressure well prior to discharge Moderate aortic stenosis Severe left ventricular hypertrophy with preserved LV systolic function ejection fraction 55-60% Chronic kidney disease, GFR 17 Anemia possibly related to chronic kidney disease A single borderline troponin abnormality Last admission, VQ scan had been done to evaluate for pulmonary embolism in the setting of an abnormal x-ray Obesity, adult-onset diabetes Suggest Blood pressure control with 150 mg of Toprol starting this morning She received 50 mg of hydralazine this morning and therefore we'll only give her 30 mg of nifedipine long-acting Tomorrow she will start nifedipine long-acting 60 mg Further maximization to 90 mg 2-D echo and Doppler study on Monday to reexamine the aortic valve gradient, transthoracic should be adequate Outpatient evaluation for obstructive sleep apnea Evaluate for other acute and chronic/recurrent pulmonary causes of shortness of breath Rate controlled on anticoagulation for atrial fibrillation continue ELIQUIS Stop amiodarone Address worsening renal function Low salt diet TSH level Past Medical History Past Medical History: Atrial Fibrillation, Coronary Artery Disease (CAD), Heart Failure, Diabetes Mellitus, GERD/Reflux, Hyperlipidemia, Hypertension, Myocardial Infarction ([place]), Pneumonia, Renal Disease, Skin Disorder, Sleep Apnea /CPAP/BIPAP Additional Past Medical History / Comment(s): possible sleep apnea, no established diagnosis; chronic kidney disease diangosed may 2015; aortic stenois ; peripheral neuropathy upper and lower extremity Last Myocardial Infarction Date:: 05/28/2015 History of Any Multi-Drug Resistant Organisms: MRSA Date of last positivie culture/infection: 2009 MDRO Source:: wounds Past Surgical History: Back Surgery, Cholecystectomy, Heart Catheterization, Hysterectomy Additional Past Surgical History / Comment(s): Lumbar surgery with decompression off L3-L4 L4-L5 with fusion March 2011 with previous hardware failure L4-L5 and extension of fusion to S1. new back sugery including t8 and t9 Past Anesthesia/Blood Transfusion Reactions: No Reported Reaction Additional Past Anesthesia/Blood Transfusion Reaction / Comment(s): Possible confusion that resolved. Past Psychological History: Anxiety, Depression Smoking Status: Never smoker Past Drug Use History: None Reported - Past Family History Father Additional Family Medical History / Comment(s): Brain aneurysm ; age 72 Sister(s) Family Medical History: Hypertension Additional Family Medical History / Comment(s): Aortic stenosis; mitral valve disease Mother Family Medical History: AFIB, CVA/TIA, Hypertension Additional Family Medical History / Comment(s): mother age 83 Daughter(s) Family Medical History: Asthma Son(s) Family Medical History: Asthma Medications and Allergies Home Medications Medication Instructions Recorded Confirmed Type DULoxetine HCL [Cymbalta] 60 mg PO DAILY 08/04/14 12/31/16 History Fish Oil/Dha/Epa [Fish Oil 1,200 1 cap PO MOWEFR 08/04/14 12/31/16 History mg Fish Oil] Insulin Glargine [Lantus] 30 units SQ HS 08/04/14 12/31/16 History Acetaminophen Tab [Tylenol] 650 mg PO Q6H PRN 05/29/15 12/31/16 History Amiodarone HCl [Pacerone] 100 mg PO DAILY 11/22/15 12/31/16 History Apixaban [Eliquis] 2.5 mg PO BID 11/22/15 12/31/16 History Aspirin EC [Ecotrin Low Dose] 81 mg PO HS 11/22/15 12/31/16 History Cetirizine HCl [Zyrtec] 10 mg PO DAILY 11/22/15 12/31/16 History Cyclobenzaprine [Flexeril] 5 mg PO HS PRN 11/22/15 12/31/16 History Docusate [Colace] 100 mg PO BID 11/22/15 12/31/16 History Ezetimibe [Zetia] 10 mg PO DAILY 11/22/15 12/31/16 History Isosorbide Mononitrate ER [Imdur] 30 mg PO DAILY 11/22/15 12/31/16 History Magnesium Oxide [Mag-Ox] 400 mg PO HS 11/22/15 12/31/16 History ALPRAZolam [Xanax] 0.25 mg PO DAILY PRN #30 tab 11/27/15 12/31/16 Rx Gabapentin [Neurontin] 300 mg PO BID #60 capsule 11/27/15 12/31/16 Rx Cranberry 4200mg-Vitamin C 1 tab PO DAILY 12/25/16 12/31/16 History Omeprazole 20 mg PO DAILY 12/25/16 12/31/16 History Polyethylene Glycol 3350 [Miralax] 17 gm PO DAILY PRN 12/25/16 12/31/16 History Amoxic-Pot Clav 500-125 mg 1 tab PO Q12HR #14 tab 12/29/16 12/31/16 Rx [Augmentin 500-125 mg] Furosemide [Lasix] 40 mg PO DAILY #30 tab 12/29/16 12/31/16 Rx Metoprolol Succinate (ER) [Toprol 100 mg PO DAILY #30 tab 12/29/16 12/31/16 Rx XL] NIFEdipine XL [Procardia XL] 60 mg PO DAILY #60 tab 12/29/16 12/31/16 Rx hydrALAZINE HCL [Apresoline] 25 mg PO BID #60 tab 12/29/16 12/31/16 Rx Cholecalciferol (Vitamin D3) 2,000 unit PO DAILY 12/31/16 12/31/16 History [Vitamin D3] traMADol HCL [Ultram] 100 mg PO Q4H PRN 12/31/16 12/31/16 History Allergies Allergy/AdvReac Type Severity Reaction Status Date / Time KUSHAL Inhibitors Allergy Swelling Verified 12/31/16 13:44 ARB-Angiotensin Receptor Allergy Swelling Verified 12/31/16 13:44 Antagonist cephalexin monohydrate Allergy Rash/Hives Verified 12/31/16 13:44 [From Keflex] propoxyphene HCl AdvReac Hallucinati Verified 12/31/16 13:44 [From Darvon] ons Ctsnhfo-Opb-Ole Reductase AdvReac Myalgia Verified 12/31/16 13:44 Inhibitor Physical Exam Vitals: Vital Signs Temp Pulse Pulse Pulse Resp BP BP 01/01/17 09:00 76 01/01/17 08:52 76 01/01/17 08:00 97.8 F 89 16 01/01/17 04:00 97.4 F L 86 18 01/01/17 00:00 97.4 F L 80 18 12/31/16 20:23 78 12/31/16 20:13 80 12/31/16 20:00 97.4 F L 86 18 172/70 12/31/16 17:42 81 18 12/31/16 15:40 79 18 135/76 12/31/16 15:37 97.2 F L 81 22 12/31/16 14:33 97.9 F 77 18 157/70 12/31/16 13:14 97.4 F L 82 18 149/65 12/31/16 12:18 74 12/31/16 11:54 75 12/31/16 11:43 12/31/16 11:35 99.3 F 76 24 174/70 BP Pulse Ox 01/01/17 09:00 01/01/17 08:52 96 01/01/17 08:00 150/68 96 01/01/17 04:00 179/81 97 01/01/17 00:00 149/65 97 12/31/16 20:23 12/31/16 20:13 95 12/31/16 20:00 99 12/31/16 17:42 12/31/16 15:40 95 12/31/16 15:37 154/69 92 L 12/31/16 14:33 95 12/31/16 13:14 96 12/31/16 12:18 12/31/16 11:54 12/31/16 11:43 94 L 12/31/16 11:35 88 L Intake and Output 12/31/16 01/01/17 01/01/17 22:59 06:59 14:59 Intake Total 10 Output Total 400 250 Balance -390 -250 Intake: IV 10 flush 10 Output: Urine 400 250 Other: Voiding Method Bedside Commode Bedside Commode Bedside Commode # Voids 1 2 Weight 97.976 kg 96.1 kg 96.1 kg Patient Weight 01/02/17 06:59 Weight 96.1 kg Results 01/01/17 03:39 01/01/17 03:39 Cardiac Enzymes 12/31/16 12/31/16 12/31/16 Range/Units 11:03 11:03 16:51 AST 22 (14-36) U/L CK-MB (CK-2) 0.6 (0.0-2.4) ng/mL Troponin I <0.012 0.013 (0.000-0.034) ng/mL 12/31/16 01/01/17 01/01/17 Range/Units 22:22 03:39 03:39 AST 36 (14-36) U/L CK-MB (CK-2) (0.0-2.4) ng/mL Troponin I 0.079 H* 0.019 (0.000-0.034) ng/mL Coagulation 12/31/16 Range/Units 11:03 PT 10.6 (9.0-12.0) sec APTT 27.0 (22.0-30.0) sec CBC 12/31/16 01/01/17 Range/Units 11:03 03:39 WBC 15.6 H 10.1 (3.8-10.6) k/uL RBC 3.32 L 2.83 L (3.80-5.40) m/uL Hgb 10.0 L 8.4 L D (11.4-16.0) gm/dL Hct 30.6 L 26.3 L (34.0-46.0) % Plt Count 275 185 (150-450) k/uL Comprehensive Metabolic Panel 12/31/16 01/01/17 Range/Units 11:03 03:39 Sodium 141 140 (137-145) mmol/L Potassium 4.9 4.3 (3.5-5.1) mmol/L Chloride 104 103 (98-107) mmol/L Carbon Dioxide 27 27 (22-30) mmol/L BUN 39 H 43 H (7-17) mg/dL Creatinine 2.84 H 2.80 H (0.52-1.04) mg/dL Glucose 199 H 188 H (74-99) mg/dL Calcium 8.9 8.6 (8.4-10.2) mg/dL AST 22 36 (14-36) U/L ALT 35 33 (9-52) U/L Alkaline Phosphatase 133 H 101 (38-126) U/L Total Protein 7.0 5.9 L (6.3-8.2) g/dL Albumin 3.5 2.9 L (3.5-5.0) g/dL Current Medications Generic Name Dose Route Start Last Admin Trade Name Freq PRN Reason Stop Dose Admin Acetaminophen 650 mg 12/31/16 16:28 01/01/17 10:22 Tylenol Tab PO 650 mg Q6H PRN Administration Fever Albuterol/Ipratropium 3 ml 12/31/16 20:00 01/01/17 08:50 Duoneb 0.5 Mg-3 Mg/3 Ml Soln INHALATION 3 ml RT-QID JONEL Administration Alprazolam 0.25 mg 12/31/16 16:28 12/31/16 19:54 Xanax PO 0.25 mg DAILY PRN Administration Anxiety Amoxicillin/Clavulanate Potassium 1 each 12/31/16 21:00 12/31/16 19:55 Augmentin 500-125 Mg PO 1 each Q12HR JONEL Administration Apixaban 2.5 mg 12/31/16 21:00 01/01/17 09:59 Eliquis PO 2.5 mg BID JONEL Administration Aspirin 81 mg 12/31/16 21:00 12/31/16 19:55 Aspirin PO 81 mg HS JONEL Administration Budesonide 1 mg 01/01/17 08:44 01/01/17 08:50 Pulmicort INHALATION 1 mg RT-BID JONEL Administration Cholecalciferol 2,000 unit 01/01/17 09:00 01/01/17 09:59 Vitamin D3 PO 2,000 unit DAILY JONEL Administration Cyclobenzaprine HCl 5 mg 12/31/16 16:28 Flexeril PO HS PRN Muscle Pain Docusate Sodium 100 mg 12/31/16 21:00 01/01/17 09:59 Colace PO 100 mg BID JONEL Administration Duloxetine HCl 60 mg 01/01/17 09:00 01/01/17 09:59 Cymbalta PO 60 mg DAILY JONEL Administration Ezetimibe 10 mg 01/01/17 09:00 01/01/17 09:59 Zetia PO 10 mg DAILY JONEL Administration Furosemide 40 mg 12/31/16 21:00 01/01/17 10:00 Lasix IV 40 mg Q12HR JONEL Administration Gabapentin 300 mg 12/31/16 21:00 01/01/17 09:59 Neurontin PO 300 mg BID JONEL Administration Hydralazine HCl 50 mg 01/01/17 09:00 01/01/17 10:10 Apresoline PO 50 mg BID JONEL Administration Insulin Glargine 30 unit 12/31/16 21:00 12/31/16 21:36 Lantus SQ 30 unit HS JONEL Administration Isosorbide Mononitrate 30 mg 01/01/17 09:00 01/01/17 09:59 Imdur PO 30 mg DAILY JONEL Administration Loratadine 10 mg 01/01/17 09:00 01/01/17 09:59 Claritin PO 10 mg DAILY JONEL Administration Magnesium Oxide 400 mg 12/31/16 21:00 12/31/16 19:56 Mag-Ox PO 400 mg HS JONEL Administration Metoprolol Succinate 150 mg 01/01/17 10:17 Toprol Xl PO DAILY JONEL Nifedipine 30 mg 01/01/17 10:30 Procardia Xl PO 01/01/17 10:31 ONCE STA Nifedipine 60 mg 01/02/17 09:00 Procardia Xl PO DAILY [facility] Pantoprazole Sodium 40 mg 01/01/17 07:30 01/01/17 06:21 Protonix PO Not Given AC-BRKFST JONEL Polyethylene Glycol 17 gm 12/31/16 16:28 Miralax PO DAILY PRN Constipation Tramadol HCl 50 mg 12/31/16 16:28 12/31/16 19:53 Ultram PO 50 mg Q4H PRN Administration Pain Intake and Output 12/31/16 01/01/17 01/01/17 22:59 06:59 14:59 Intake Total 10 Output Total 400 250 Balance -390 -250 Intake: IV 10 flush 10 Output: Urine 400 250 Other: Voiding Method Bedside Commode Bedside Commode Bedside Commode # Voids 1 2 Weight 97.976 kg 96.1 kg 96.1 kg Patient Weight 01/02/17 06:59 Weight 96.1 kg 01/01/17 03:39 01/01/17 03:39
--- NOTE | 2017-01-01 10:35 | P.PN ---
Subjective This is a 71-year-old female patient of Dr. Garcia with past medical history of atrial fibrillation, coronary artery disease status post myocardial infarction, chronic heart failure, diabetes mellitus type 2, hyperlipidemia, hypertension, chronic kidney disease stage IV, peripheral neuropathy.patient was recently hospitalized at [facility] in 2016 and she was discharged on 12/29/2016 after she was treated for acute diastolic heart failure and tooth abscess for which she was started on IV antibiotic initially and subsequent she was switched to oral Augmentin and she was placed back on her Eliquis, she was given instruction to stop the Eliquis for 48 hours prior to pulling her tooth next week. Patient was doing fine up until yesterday when she developed to have an increased shortness breath and she ended up coming to the ER at [facility] again with significant shortness of breath, she was suggestive of pulmonary edema and she was quite tight in her chest she was admitted to the hospital for evaluation bipolar medicine cardiology was started on Lasix 40 mg IV push every 8 hours, pulmonary as stated earlier and cardiology consultation were obtained. 01/01: Patient remains on Lasix 40 mg IV every 12 hours. Weight is down 1.8 kg. Nebulizer helped her with breathing yesterday. She continues to have wheezing in Pulmicort added. BUN is 43 with creatinine of 2.8. Blood pressure is on the high side for which hydralazine increased to 50 mg twice daily. Repeat troponins were 0.013 and 0.079. Cardiology is on consult. Objective - Vital Signs Vital signs: Vital Signs Temp 97.8 F 01/01/17 08:00 Pulse 76 01/01/17 09:00 Resp 16 01/01/17 08:00 BP 150/68 01/01/17 08:00 Pulse Ox 96 01/01/17 08:52 Intake & Output 12/31/16 01/01/17 01/01/17 18:59 06:59 18:59 Intake Total 10 Output Total 650 Balance -640 Weight 97.976 kg 96.1 kg 96.1 kg Intake: IV 10 flush 10 Output: Urine 650 Other: Voiding Method Bedpan Bedside Commode Bedside Commode # Voids 2 - Exam General appearance: mild distress, obese - EENT Eyes: anicteric sclerae, EOMI, PERRLA, no ptosis, no scleral icterus, normal appearance ENT: hearing grossly normal, NA/AT, normal oropharynx, no thrush Ears: bilateral: normal - Neck Neck: no lymphadenopathy, normal ROM, no rigidity, no stridor, no thyromegaly Carotids: bilateral: upstroke normal Thyroid: bilateral: normal size - Respiratory Respiratory: bilateral: diminished, dullness, rales, wheezing, prolonged expiration, negative: rhonchi - Cardiovascular Rhythm: regularly irregular Heart sounds: normal: S1, S2 Abnormal Heart Sounds: systolic murmur, no rub, S3 Gallop, no click - Gastrointestinal General gastrointestinal: normal bowel sounds, soft, no splenomegaly, no tenderness, no umbilical hernia, no ventral hernia - Integumentary Integumentary: normal, normal turgor - Neurologic Neurologic: CNII-XII intact - Musculoskeletal Musculoskeletal: generalized weakness, strength equal bilaterally - Psychiatric Psychiatric: A&O x's 3, appropriate affect, intact judgment & insight - Labs CBC & Chem 7: 01/01/17 03:39 01/01/17 03:39 Labs: Abnormal Lab Results - Last 24 Hours (Table) 12/31/16 12/31/16 12/31/16 Range/Units 11:03 11:03 11:03 WBC 15.6 H (3.8-10.6) k/uL RBC 3.32 L (3.80-5.40) m/uL Hgb 10.0 L (11.4-16.0) gm/dL Hct 30.6 L (34.0-46.0) % RDW 15.6 H (11.5-15.5) % Neutrophils # 12.8 H (1.3-7.7) k/uL BUN 39 H (7-17) mg/dL Creatinine 2.84 H (0.52-1.04) mg/dL Glucose 199 H (74-99) mg/dL POC Glucose (mg/dL) (75-99) mg/dL Alkaline Phosphatase 133 H (38-126) U/L Total Creatine Kinase 24 L (30-135) U/L Troponin I (0.000-0.034) ng/mL Total Protein (6.3-8.2) g/dL Albumin (3.5-5.0) g/dL 12/31/16 12/31/16 12/31/16 Range/Units 16:49 20:35 22:22 WBC (3.8-10.6) k/uL RBC (3.80-5.40) m/uL Hgb (11.4-16.0) gm/dL Hct (34.0-46.0) % RDW (11.5-15.5) % Neutrophils # (1.3-7.7) k/uL BUN (7-17) mg/dL Creatinine (0.52-1.04) mg/dL Glucose (74-99) mg/dL POC Glucose (mg/dL) 247 H 178 H (75-99) mg/dL Alkaline Phosphatase (38-126) U/L Total Creatine Kinase (30-135) U/L Troponin I 0.079 H* (0.000-0.034) ng/mL Total Protein (6.3-8.2) g/dL Albumin (3.5-5.0) g/dL 01/01/17 01/01/17 01/01/17 Range/Units 03:39 03:39 05:59 WBC (3.8-10.6) k/uL RBC 2.83 L (3.80-5.40) m/uL Hgb 8.4 L D (11.4-16.0) gm/dL Hct 26.3 L (34.0-46.0) % RDW 15.6 H (11.5-15.5) % Neutrophils # (1.3-7.7) k/uL BUN 43 H (7-17) mg/dL Creatinine 2.80 H (0.52-1.04) mg/dL Glucose 188 H (74-99) mg/dL POC Glucose (mg/dL) 163 H (75-99) mg/dL Alkaline Phosphatase (38-126) U/L Total Creatine Kinase (30-135) U/L Troponin I (0.000-0.034) ng/mL Total Protein 5.9 L (6.3-8.2) g/dL Albumin 2.9 L (3.5-5.0) g/dL Assessment and Plan Plan: 1. Acute hypoxic respiratory failure secondary to acute on chronic diastolic heart failure, COPD exacerbation, moderate aortic stenosis. Continue patient on Lasix 40 mg IV push every 8 hours, continue oxygen support, continue patient on Imdur 30 mg orally once every day, Toprol-XLl 100 mg orally once every day. O once every day, continue hydralazine increased to 50 mg orally twice every day , discontinue nifedipine for now. Input and output and daily weight, cardiology consultation. 2. Tooth abscess in the right lower jaw. Continue Augmentin 875 mg orally twice every day. 3. Acute kidney injury with chronic kidney disease stage IV. Back to baseline. 4. Accelerated hypertension. Continue metoprolol 100 mg orally once every day. 5. Paroxysmal atrial fibrillation. Continue amiodarone 100 mg orally once every day, Eliquis 2.5 mg orally twice every day. 6. Morbid obesity with BMI of 39. 7. Hyperkalemia secondary to chronic renal failure . Resolved. 8. Diabetes mellitus type 2 . Continue Lantus 32 units at bedtime along with a sliding scale insulin. 9. GERD. Continue omeprazole 20 mg orally once every day. 10. Hypertension, hypertensive cardiovascular disease. Continue hydralazine 25 mg orally twice every day, Toprol-XL 100 mg orally once every day discontinue nifedipine. 11. History of myocardial infarction and coronary artery disease. Continue aspirin 81 mg once every day, Toprol-XL 100 mg orally once every day, Imdur 30 mg orally once every day, Zetia 10 mg orally once every day. 12. Hyperlipidemia. 13. Diabetic peripheral neuropathy and neuropathy secondary to chronic back pain. Continue gabapentin 300 mg orally twice every day. 14. Depression. Continue Cymbalta 60 mg orally once every day. 15. DVT prophylaxis. Continue patient on Eliquis 2.5 mg orally twice every day as well as bilateral knee-high TERRIE hose. 16. Prophylaxis. Continue patient on PPI. 17. Full code. 18. The to inpatient. Estimate length of stay 2 midnights. Discharge plan: Most likely home with homecare Impression and plan of care have been directed as dictated by the signing physician. Jessenia Gonzalez nurse practitioner acting as scribe for signing physician.
[2017-01-01] MEDS: METOPROLOL SUCCINATE (ER) 50 MG TAB.ER.24H PO SCH (12:13)
[2017-01-01 12:14] LABS: Glucose,Whole Blood 226 mg/dL (75-99)
--- NOTE | 2017-01-01 12:54 | P.NPCON ---
History of Present Illness - Reason for Consult Consult date: 01/01/17 acute renal failure - Chief Complaint Acute kidney injury, shortness of breath congestive heart failure - History of Present Illness 71-year-old female seen in consultation because of acute kidney injury and chronic kidney disease. She is known to us with chronic kidney disease secondary diabetic nephropathy, she came in with acute shortness of breath the last 2 days. She was recently hospitalized and discharged 3 days ago with the same problems. At home she was on Lasix 20 mg twice a day. She denies any chest pain dizziness. No fever chills cough. She is known with with creatinines baseline slowly worsening over the last 2 years. Creatinine was 1.4 in May 2015. In the 1.9 subsequently and then 2.2 as of 11/14/2016. She has microalbumin to creatinine ratio of 3.2 g dated 10/30/2013. She is known with diabetes 2since age 29, history of acute [place], history of acute kidney injury after back surgery in June 2015 requiring dialysis for a week. Subsequently her creatinine on October of last year was 1.9. She has been suspected to have obstructive sleep apnea but has not been checked. She has atrial fibrillation and known aortic stenosis. Past Medical History Past Medical History: Atrial Fibrillation, Coronary Artery Disease (CAD), Heart Failure, Diabetes Mellitus, GERD/Reflux, Hyperlipidemia, Hypertension, Myocardial Infarction ([place]), Pneumonia, Renal Disease, Skin Disorder, Sleep Apnea /CPAP/BIPAP Additional Past Medical History / Comment(s): possible sleep apnea, no established diagnosis; chronic kidney disease diangosed may 2015; aortic stenois ; peripheral neuropathy upper and lower extremity Last Myocardial Infarction Date:: 05/28/2015 History of Any Multi-Drug Resistant Organisms: MRSA Date of last positivie culture/infection: 2009 MDRO Source:: wounds Past Surgical History: Back Surgery, Cholecystectomy, Heart Catheterization, Hysterectomy Additional Past Surgical History / Comment(s): Lumbar surgery with decompression off L3-L4 L4-L5 with fusion March 2011 with previous hardware failure L4-L5 and extension of fusion to S1. new back sugery including t8 and t9 Past Anesthesia/Blood Transfusion Reactions: No Reported Reaction Additional Past Anesthesia/Blood Transfusion Reaction / Comment(s): Possible confusion that resolved. Past Psychological History: Anxiety, Depression Smoking Status: Never smoker Past Drug Use History: None Reported - Past Family History Father Additional Family Medical History / Comment(s): Brain aneurysm ; age 72 Sister(s) Family Medical History: Hypertension Additional Family Medical History / Comment(s): Aortic stenosis; mitral valve disease Mother Family Medical History: AFIB, CVA/TIA, Hypertension Additional Family Medical History / Comment(s): mother age 83 Daughter(s) Family Medical History: Asthma Son(s) Family Medical History: Asthma Medications and Allergies Home Medications Medication Instructions Recorded Confirmed Type DULoxetine HCL [Cymbalta] 60 mg PO DAILY 08/04/14 12/31/16 History Fish Oil/Dha/Epa [Fish Oil 1,200 1 cap PO MOWEFR 08/04/14 12/31/16 History mg Fish Oil] Insulin Glargine [Lantus] 30 units SQ HS 08/04/14 12/31/16 History Acetaminophen Tab [Tylenol] 650 mg PO Q6H PRN 05/29/15 12/31/16 History Amiodarone HCl [Pacerone] 100 mg PO DAILY 11/22/15 12/31/16 History Apixaban [Eliquis] 2.5 mg PO BID 11/22/15 12/31/16 History Aspirin EC [Ecotrin Low Dose] 81 mg PO HS 11/22/15 12/31/16 History Cetirizine HCl [Zyrtec] 10 mg PO DAILY 11/22/15 12/31/16 History Cyclobenzaprine [Flexeril] 5 mg PO HS PRN 11/22/15 12/31/16 History Docusate [Colace] 100 mg PO BID 11/22/15 12/31/16 History Ezetimibe [Zetia] 10 mg PO DAILY 11/22/15 12/31/16 History Isosorbide Mononitrate ER [Imdur] 30 mg PO DAILY 11/22/15 12/31/16 History Magnesium Oxide [Mag-Ox] 400 mg PO HS 11/22/15 12/31/16 History ALPRAZolam [Xanax] 0.25 mg PO DAILY PRN #30 tab 11/27/15 12/31/16 Rx Gabapentin [Neurontin] 300 mg PO BID #60 capsule 11/27/15 12/31/16 Rx Cranberry 4200mg-Vitamin C 1 tab PO DAILY 12/25/16 12/31/16 History Omeprazole 20 mg PO DAILY 12/25/16 12/31/16 History Polyethylene Glycol 3350 [Miralax] 17 gm PO DAILY PRN 12/25/16 12/31/16 History Amoxic-Pot Clav 500-125 mg 1 tab PO Q12HR #14 tab 12/29/16 12/31/16 Rx [Augmentin 500-125 mg] Furosemide [Lasix] 40 mg PO DAILY #30 tab 12/29/16 12/31/16 Rx Metoprolol Succinate (ER) [Toprol 100 mg PO DAILY #30 tab 12/29/16 12/31/16 Rx XL] NIFEdipine XL [Procardia XL] 60 mg PO DAILY #60 tab 12/29/16 12/31/16 Rx hydrALAZINE HCL [Apresoline] 25 mg PO BID #60 tab 12/29/16 12/31/16 Rx Cholecalciferol (Vitamin D3) 2,000 unit PO DAILY 12/31/16 12/31/16 History [Vitamin D3] traMADol HCL [Ultram] 100 mg PO Q4H PRN 12/31/16 12/31/16 History Allergies Allergy/AdvReac Type Severity Reaction Status Date / Time KUSHAL Inhibitors Allergy Swelling Verified 12/31/16 13:44 ARB-Angiotensin Receptor Allergy Swelling Verified 12/31/16 13:44 Antagonist cephalexin monohydrate Allergy Rash/Hives Verified 12/31/16 13:44 [From Keflex] propoxyphene HCl AdvReac Hallucinati Verified 12/31/16 13:44 [From Darvon] ons [id number] Reductase AdvReac Myalgia Verified 12/31/16 13:44 Inhibitor Physical Exam Vitals: Vital Signs Temp Pulse Pulse Pulse Resp BP BP 01/01/17 12:05 88 01/01/17 11:51 80 01/01/17 09:00 76 01/01/17 08:52 76 01/01/17 08:00 97.8 F 89 16 01/01/17 04:00 97.4 F L 86 18 01/01/17 00:00 97.4 F L 80 18 12/31/16 20:23 78 12/31/16 20:13 80 12/31/16 20:00 97.4 F L 86 18 172/70 12/31/16 17:42 81 18 12/31/16 15:40 79 18 135/76 12/31/16 15:37 97.2 F L 81 22 12/31/16 14:33 97.9 F 77 18 157/70 12/31/16 13:14 97.4 F L 82 18 149/65 BP Pulse Ox 01/01/17 12:05 01/01/17 11:51 01/01/17 09:00 01/01/17 08:52 96 01/01/17 08:00 150/68 96 01/01/17 04:00 179/81 97 01/01/17 00:00 149/65 97 12/31/16 20:23 12/31/16 20:13 95 12/31/16 20:00 99 12/31/16 17:42 12/31/16 15:40 95 12/31/16 15:37 154/69 92 L 12/31/16 14:33 95 12/31/16 13:14 96 Intake and Output 12/31/16 01/01/17 01/01/17 22:59 06:59 14:59 Intake Total 10 Output Total 400 250 Balance -390 -250 Intake: IV 10 flush 10 Output: Urine 400 250 Other: Voiding Method Bedside Commode Bedside Commode Bedside Commode # Voids 1 2 Weight 97.976 kg 96.1 kg 96.1 kg Patient Weight 01/02/17 06:59 Weight 96.1 kg On examination she is an obese female, looks somewhat ill, short of breath at rest. HEENT exam no JVP in lymphadenopathy thyromegaly no carotid bruit neck is supple no facial asymmetry She looks somewhat.. Lungs are significant for bilateral fine crackles at both bases as well as mid posteriorly. No dullness percussion less than optimal air entry Heart sounds are unremarkable except for a grade 2 systolic ejection murmur. Carotid upstroke was poor the post confirmatory of aortic stenosis. Abdomen is obese protuberant and difficult to examine but nontender no masses felt. Extremity exam was mild to moderate edema. Warm to touch. Neurologically awake alert oriented. No focal motor deficit and no asterixis. Results - Lab Results Most recent lab results Calcium 8.6 mg/dL (8.4-10.2) 01/01/17 03:39 Magnesium 1.9 mg/dL (1.6-2.3) 01/01/17 03:39 01/01/17 03:39 01/01/17 03:39 Assessment and Plan Plan: Impression. 1. Acute kidney injury secondary to congestive heart failure and prerenal state. Creatinine is 2.8, was 3.1 on 12/27/2016 during recent admission 3 days ago. 2. Chronic kidney disease stage IV with a creatinine of 2.2 dated 11/14/2016, GFR was between 20-30 over the last few months, with diabetic nephropathy, microalbumin to creatinine ratio is 3.2 g dated 10/30/2013 3 years ago. Extensive workup in the past as revealed MATT negative ANCA negative normal complement and normal serum immunoelectrophoresis. 3. Diabetes type 2, since age 29 4. Obesity and possible obstructive sleep apnea 5. History of coronary artery disease with acute [place], atrial fibrillation, but the EKG for now shows normal sinus rhythm as of yesterday. 6. Edema, diabetic nephropathy. 7. Anemia of chronic kidney disease. 8. Rule out iron deficiency. Recommendation. 1. Check bladder scan to ensure there is no urinary retention as she has not responded to Lasix 40 mg IV so far. 2. There is no satisfactory urine output will escalate the Lasix 100 mg every 8 hours. 3. Check iron saturation. 4. Discussed with the family and patient regarding possible need for dialysis in the future Thank you for this consultation, will closely follow patient with you
[2017-01-01 13:40] LABS: % Iron Saturation 13.2 % (20-50)
[2017-01-01 14:14] LABS: Hemoglobin A1C 7.6 % (4.2-6.1)
[2017-01-01] MEDS: FUROSEMIDE 10 MG/ML 10 ML VIAL IV SCH ×2 (16:15→23:23)
[2017-01-01 17:17] LABS: Glucose,Whole Blood 172 mg/dL (75-99)
[2017-01-01] MEDS: AMOXIC-POT CLAV 500-125 MG 1 EACH TAB PO SCH (20:26)
[2017-01-01] MEDS: MAGNESIUM OXIDE 400 MG TAB PO SCH (20:26)
[2017-01-01] MEDS: ASPIRIN 81 MG PO SCH (20:26)
[2017-01-01 20:42] LABS: Glucose,Whole Blood 250 mg/dL (75-99)
[2017-01-01] MEDS: INSULIN GLARGINE 100 UNIT/ML 10 ML VIAL SQ SCH (21:11)
[2017-01-02 02:48] LABS: Glucose,Whole Blood 194 mg/dL (75-99)
[2017-01-02 06:15] LABS: Glucose,Whole Blood 162 mg/dL (75-99)
[2017-01-02] MEDS: PANTOPRAZOLE 40 MG TABLET PO SCH (06:28)
[2017-01-02 06:34] LABS: CH 30.2; CHCM 32.7; HCT 25.6 % (34.0-46.0); HDW 2.74; HGB 8.1 gm/dL (11.4-16.0); MCH 29.6 pg (25.0-35.0); MCHC 31.8 g/dL (31.0-37.0); MCV 92.9 fL (80.0-100.0); Mean Platelet Volume 9.5; RBC 2.76 m/uL (3.80-5.40); RDW 15.4 % (11.5-15.5); WBC 10.5 k/uL (3.8-10.6)
[2017-01-02 06:47] LABS: Calcium 8.7 mg/dL (8.4-10.2); Magnesium 1.7 mg/dL (1.6-2.3); Potassium 4.2 mmol/L (3.5-5.1)
[2017-01-02] MEDS: BUDESONIDE 1 MG/2 ML NEBU INHALATION SCH ×2 (07:36→20:37)
[2017-01-02] MEDS: IPRATROPIUM-ALBUTEROL 3 ML NEB INHALATION SCH (07:36)
[2017-01-02] MEDS: ISOSORBIDE MONONITRATE ER 30 MG TAB.ER.24H PO SCH (08:06)
[2017-01-02] MEDS: LORATADINE 10 MG TAB PO SCH (08:06)
[2017-01-02] MEDS: METOPROLOL SUCCINATE (ER) 50 MG TAB.ER.24H PO SCH (08:06)
[2017-01-02] MEDS: APIXABAN 2.5 MG TABLET PO SCH ×2 (08:07→19:48)
[2017-01-02] MEDS: DOCUSATE 100 MG CAP PO SCH ×2 (08:07→19:48)
[2017-01-02] MEDS: FUROSEMIDE 10 MG/ML 10 ML VIAL IV SCH (08:07)
[2017-01-02] MEDS: AMOXIC-POT CLAV 500-125 MG 1 EACH TAB PO SCH ×2 (08:08→19:48)
[2017-01-02] MEDS: GABAPENTIN 300 MG CAP PO SCH ×2 (08:08→19:48)
[2017-01-02] MEDS: EZETIMIBE 10 MG TAB PO SCH (08:08)
[2017-01-02] MEDS: DULoxetine HCL 60 MG CAPSULE.DR PO SCH (08:08)
[2017-01-02] MEDS: CHOLECALCIFEROL 1,000 UNIT TAB PO SCH (08:08)
[2017-01-02] MEDS: hydrALAZINE HCL 50 MG TAB PO SCH ×2 (08:09→19:48)
[2017-01-02] MEDS: hydrALAZINE HCL 25 MG TAB PO SCH ×2 (08:09→19:48)
--- NOTE | 2017-01-02 09:14 | P.PN ---
Subjective 71-year-old female seen in consultation because of acute kidney injury and chronic kidney disease. She is known to us with chronic kidney disease secondary diabetic nephropathy, she came in with acute shortness of breath the last 2 days. She was recently hospitalized and discharged 3 days ago with the same problems. At home she was on Lasix 20 mg twice a day. She was given IV Lasix yesterday, 80 mg every 8 hours. In spite of this she is complaining of for shortness of breath and this morning. She also complains of some retrosternal discomfort. Her urine output was 11 85 mL for the last 24 hours. No cough. Poor appetite. She is known with with creatinines baseline slowly worsening over the last 2 years. Creatinine was 1.4 in May 2015. In the 1.9 subsequently and then 2.2 as of 11/14/2016. She has microalbumin to creatinine ratio of 3.2 g dated 10/30/2013. She is known with diabetes 2since age 29, history of acute [place], history of acute kidney injury after back surgery in June 2015 requiring dialysis for a week. Subsequently her creatinine on October of last year was 1.9. She has been suspected to have obstructive sleep apnea but has not been checked. She has atrial fibrillation and known aortic stenosis. Objective - Vital Signs Vital signs: Vital Signs Temp 97.8 F 01/02/17 08:00 Pulse 87 01/02/17 08:00 Resp 20 01/02/17 08:00 BP 169/100 01/02/17 08:00 Pulse Ox 93 L 01/02/17 08:00 Intake & Output 01/01/17 01/02/17 01/02/17 18:59 06:59 18:59 Intake Total 180 Output Total 535 650 Balance -535 -650 180 Weight 96.1 kg 95.7 kg Intake: Oral 180 Output: Urine 500 650 Post Void Residual 35 Other: Voiding Method Bedside Commode Bedside Commode On examination she seems, pale and short of breath. HEENT exam no JVP is noted neck is supple no facial asymmetry pupils are equal. Lungs are significant for bilateral moderate amount of fine crackles with less than optimal air entry bilaterally. No dullness to percussion. Heart sounds are unremarkable for any murmur rub gallop Abdomen soft nontender obese protuberant Extremity exam reveals trace edema at best. Neurologically awake alert oriented - Labs CBC & Chem 7: 09/04/17 06:09 01/02/17 06:09 Labs: Abnormal Lab Results - Last 24 Hours (Table) 01/01/17 01/01/17 01/01/17 Range/Units 03:39 03:39 11:50 RBC (3.80-5.40) m/uL Hgb (11.4-16.0) gm/dL Hct (34.0-46.0) % BUN (7-17) mg/dL Creatinine (0.52-1.04) mg/dL Glucose (74-99) mg/dL POC Glucose (mg/dL) 226 H (75-99) mg/dL Hemoglobin A1c 7.6 H (4.2-6.1) % Iron 31 L (37-170) ug/dL TIBC 235 L (265-497) ug/dL % Saturation 13.2 L (20-50) % 01/01/17 01/01/17 01/02/17 Range/Units 17:13 20:40 02:31 RBC (3.80-5.40) m/uL Hgb (11.4-16.0) gm/dL Hct (34.0-46.0) % BUN (7-17) mg/dL Creatinine (0.52-1.04) mg/dL Glucose (74-99) mg/dL POC Glucose (mg/dL) 172 H 250 H 194 H (75-99) mg/dL Hemoglobin A1c (4.2-6.1) % Iron (37-170) ug/dL TIBC (265-497) ug/dL % Saturation (20-50) % 01/02/17 01/02/17 01/02/17 Range/Units 06:09 06:09 06:13 RBC 2.76 L (3.80-5.40) m/uL Hgb 8.1 L (11.4-16.0) gm/dL Hct 25.6 L (34.0-46.0) % BUN 42 H (7-17) mg/dL Creatinine 3.01 H (0.52-1.04) mg/dL Glucose 157 H (74-99) mg/dL POC Glucose (mg/dL) 162 H (75-99) mg/dL Hemoglobin A1c (4.2-6.1) % Iron (37-170) ug/dL TIBC (265-497) ug/dL % Saturation (20-50) % Assessment and Plan Plan: Impression. 1. Acute kidney injury secondary to congestive heart failure and prerenal state. Creatinine is 2.8, was 3.1 on 12/27/2016 during recent admission 3 days ago. Creatinine has gone up from 2.8 yesterday to 3.01 this morning. Her subjective feeling of shortness of breath is worse. On Lasix 80 daily 8 she is minimally 1185 mL urine output. 2. Chronic kidney disease stage IV with a creatinine of 2.2 dated 11/14/2016, GFR was between 20-30 over the last few months, with diabetic nephropathy, microalbumin to creatinine ratio is 3.2 g dated 10/30/2013 3 years ago. Extensive workup in the past as revealed MATT negative ANCA negative normal complement and normal serum immunoelectrophoresis. 3. Possible coronary artery disease with chest discomfort. This may be adding to the worsening renal function. 3. Diabetes type 2, since age 29 4. Obesity and possible obstructive sleep apnea 5. History of coronary artery disease with acute [place], atrial fibrillation, but the EKG for now shows normal sinus rhythm as of yesterday. 6. Edema, diabetic nephropathy. 7. Anemia of chronic kidney disease. 8. iron deficiency. Iron saturation 13% dated 01/01/2017 Recommendation. 1. Convert Lasix 80 mg to 8 hours to Lasix 10 mg per hour drip as well as add Zaroxolyn 10 mg by mouth daily 2. If she does not respond will had considered dialysis. Check bladder scan to ensure there is no urinary retention as she has not responded to Lasix 40 mg IV so far. 3. We'll give her 1 dose of Ferrlecit 4. Discussed with t Dr. Delacruz studio owner regarding possible cardiology intervention. He feels this will not be very helpful. We will will closely follow patient with you
--- NOTE | 2017-01-02 10:15 | P.PN ---
Subjective This is a 71-year-old female patient of Dr. Garcia with past medical history of atrial fibrillation, coronary artery disease status post myocardial infarction, chronic heart failure, diabetes mellitus type 2, hyperlipidemia, hypertension, chronic kidney disease stage IV, peripheral neuropathy.patient was recently hospitalized at [facility] in 2016 and she was discharged on 12/29/2016 after she was treated for acute diastolic heart failure and tooth abscess for which she was started on IV antibiotic initially and subsequent she was switched to oral Augmentin and she was placed back on her Eliquis, she was given instruction to stop the Eliquis for 48 hours prior to pulling her tooth next week. Patient was doing fine up until yesterday when she developed to have an increased shortness breath and she ended up coming to the ER at [facility] again with significant shortness of breath, she was suggestive of pulmonary edema and she was quite tight in her chest she was admitted to the hospital for evaluation bipolar medicine cardiology was started on Lasix 40 mg IV push every 8 hours, pulmonary as stated earlier and cardiology consultation were obtained. 01/01: Patient remains on Lasix 40 mg IV every 12 hours. Weight is down 1.8 kg. Nebulizer helped her with breathing yesterday. She continues to have wheezing in Pulmicort added. BUN is 43 with creatinine of 2.8. Blood pressure is on the high side for which hydralazine increased to 50 mg twice daily. Repeat troponins were 0.013 and 0.079. Cardiology is on consult. 01/02: Dr. Delacruz has evaluated the patient and medication changes were made for hypertension. He has resumed her back on Procardia. Dr. Guardado has seen the patient and increase Lasix to 100 mg every 8 hours yesterday and today switched to lasix drip. Today BUN is 42 and creatinine 3.01. Patient's weight is down 0.4 kg from yesterday. She is complaining of shortness of breath, little cough and feeling tired. Objective - Vital Signs Vital signs: Vital Signs Temp 97.6 F 01/01/17 23:54 Pulse 86 01/02/17 07:56 Resp 20 01/02/17 04:00 BP 190/81 01/02/17 04:00 Pulse Ox 98 01/02/17 07:40 Intake & Output 0901/02/17 01/02/17 18:59 06:59 18:59 Intake Total 180 Output Total 535 650 Balance -535 -650 180 Weight 96.1 kg 95.7 kg Intake: Oral 180 Output: Urine 500 650 Post Void Residual 35 Other: Voiding Method Bedside Commode Bedside Commode - Exam General appearance: mild to moderate distress, obese - EENT Eyes: anicteric sclerae, EOMI, PERRLA, no ptosis, no scleral icterus, normal appearance ENT: hearing grossly normal, NA/AT, normal oropharynx, no thrush Ears: bilateral: normal - Neck Neck: no lymphadenopathy, normal ROM, no rigidity, no stridor, no thyromegaly Carotids: bilateral: upstroke normal Thyroid: bilateral: normal size - Respiratory Respiratory: bilateral: diminished, dullness, rales, wheezing, prolonged expiration, tachypnea negative: rhonchi - Cardiovascular Rhythm: regularly irregular Heart sounds: normal: S1, S2 Abnormal Heart Sounds: systolic murmur, no rub, S3 Gallop, no click - Gastrointestinal General gastrointestinal: normal bowel sounds, soft, no splenomegaly, no tenderness, no umbilical hernia, no ventral hernia - Integumentary Integumentary: normal, normal turgor - Neurologic Neurologic: CNII-XII intact - Musculoskeletal Musculoskeletal: generalized weakness, strength equal bilaterally - Psychiatric Psychiatric: A&O x's 3, appropriate affect, intact judgment & insight - Labs CBC & Chem 7: 01/02/17 06:09 01/02/17 06:09 Labs: Abnormal Lab Results - Last 24 Hours (Table) 01/01/17 01/01/17 01/01/17 Range/Units 03:39 03:39 11:50 RBC (3.80-5.40) m/uL Hgb (11.4-16.0) gm/dL Hct (34.0-46.0) % BUN (7-17) mg/dL Creatinine (0.52-1.04) mg/dL Glucose (74-99) mg/dL POC Glucose (mg/dL) 226 H (75-99) mg/dL Hemoglobin A1c 7.6 H (4.2-6.1) % Iron 31 L (37-170) ug/dL TIBC 235 L (265-497) ug/dL % Saturation 13.2 L (20-50) % 01/01/17 01/01/17 01/02/17 Range/Units 17:13 20:40 02:31 RBC (3.80-5.40) m/uL Hgb (11.4-16.0) gm/dL Hct (34.0-46.0) % BUN (7-17) mg/dL Creatinine (0.52-1.04) mg/dL Glucose (74-99) mg/dL POC Glucose (mg/dL) 172 H 250 H 194 H (75-99) mg/dL Hemoglobin A1c (4.2-6.1) % Iron (37-170) ug/dL TIBC (265-497) ug/dL % Saturation (20-50) % 01/02/17 01/02/17 01/02/17 Range/Units 06:09 06:09 06:13 RBC 2.76 L (3.80-5.40) m/uL Hgb 8.1 L (11.4-16.0) gm/dL Hct 25.6 L (34.0-46.0) % BUN 42 H (7-17) mg/dL Creatinine 3.01 H (0.52-1.04) mg/dL Glucose 157 H (74-99) mg/dL POC Glucose (mg/dL) 162 H (75-99) mg/dL Hemoglobin A1c (4.2-6.1) % Iron (37-170) ug/dL TIBC (265-497) ug/dL % Saturation (20-50) % Assessment and Plan Plan: 1. Acute hypoxic respiratory failure secondary to acute on chronic diastolic heart failure, COPD exacerbation, moderate aortic stenosis. Continue patient on Lasix IV pus changed to drip, continue oxygen support, continue patient on Imdur 30 mg orally once every day, Toprol-XLl 100 mg orally once every day. O once every day, continue hydralazine increased to 50 mg orally twice every day, nifedipine was resumed. Input and output and daily weight, cardiology consultation. 2. Tooth abscess in the right lower jaw. Continue Augmentin 875 mg orally twice every day. 3. Acute kidney injury with chronic kidney disease stage IV. Lasix drip. 4. Accelerated hypertension. Continue metoprolol 100 mg orally once every day. 5. Paroxysmal atrial fibrillation. Continue amiodarone 100 mg orally once every day, Eliquis 2.5 mg orally twice every day. 6. Morbid obesity with BMI of 39. 7. Hyperkalemia secondary to chronic renal failure . Resolved. 8. Diabetes mellitus type 2 . Continue Lantus 32 units at bedtime along with a sliding scale insulin. 9. GERD. Continue omeprazole 20 mg orally once every day. 10. Hypertension, hypertensive cardiovascular disease. Continue hydralazine 25 mg orally twice every day, Toprol-XL 100 mg orally once every day discontinue nifedipine. 11. History of myocardial infarction and coronary artery disease. Continue aspirin 81 mg once every day, Toprol-XL 100 mg orally once every day, Imdur 30 mg orally once every day, Zetia 10 mg orally once every day. 12. Hyperlipidemia. 13. Diabetic peripheral neuropathy and neuropathy secondary to chronic back pain. Continue gabapentin 300 mg orally twice every day. 14. Depression. Continue Cymbalta 60 mg orally once every day. 15. DVT prophylaxis. Continue patient on Eliquis 2.5 mg orally twice every day as well as bilateral knee-high TERRIE hose. 16. Prophylaxis. Continue patient on PPI. 17. Full code. 18. The to inpatient. Estimate length of stay 2 midnights. Discharge plan: Most likely home with homecare Impression and plan of care have been directed as dictated by the signing physician. Jessenia Gonzalez nurse practitioner acting as scribe for signing physician.
[2017-01-02] MEDS: METOLAZONE 5 MG TAB PO SCH (10:34)
[2017-01-02] MEDS: FUROSEMIDE 250 MG in SODIUM CHLORIDE 0.9% 225 ML IV SCH (10:34)
[2017-01-02] MEDS: ACETAMINOPHEN TAB 325 MG TAB PO PRN (10:51)
--- NOTE | 2017-01-02 11:04 | P.PN ---
Subjective Patient is lying in bed. She does complain of a little discomfort in the chest off and on. She has never complained of this before. Even her previous admission she was complaining of shortness of breath. Yesterday when I spoke to her she only complained of shortness of breath Her blood pressures even higher than yesterday 190/81 mmHg 169 100 mmHg, pulse rate in the 80s, afebrile Breath sounds are reduced bilaterally she is lying flat in bed she looks comfortable she does complain of discomfort in the chest off and on Impression Diastolic heart failure, acute and chronic Worsening renal function chronic kidney disease with acute exacerbation Hypertension Now with recurrent chest discomfort Atrial fibrillation, on adequate ventilation Plan Discharge on IV Lasix drip by the renal service She is on multiple antihypertensive medications I would continue same medications without any changes and recheck her blood pressure to make sure that her blood pressure is actually elevated before increasing her medications again Prior to discharge last time her blood pressure is actually very well controlled and is quite likely that worsening renal function has contributed to this Twelve-lead ECG today Objective - Vital Signs Vital signs: Vital Signs Temp 97.8 F 01/02/17 08:00 Pulse 87 01/02/17 08:00 Resp 20 01/02/17 08:00 BP 169/100 01/02/17 08:00 Pulse Ox 93 L 01/02/17 08:00 Intake & Output 01/01/17 01/02/17 01/02/17 18:59 06:59 18:59 Intake Total 180 Output Total 535 650 Balance -535 -650 180 Weight 96.1 kg 95.7 kg Intake: Oral 180 Output: Urine 500 650 Post Void Residual 35 Other: Voiding Method Bedside Commode Bedside Commode - Labs CBC & Chem 7: 01/02/17 06:09 01/02/17 06:09 Labs: Abnormal Lab Results - Last 24 Hours (Table) 01/01/17 01/01/17 01/01/17 Range/Units 03:39 03:39 11:50 RBC (3.80-5.40) m/uL Hgb (11.4-16.0) gm/dL Hct (34.0-46.0) % BUN (7-17) mg/dL Creatinine (0.52-1.04) mg/dL Glucose (74-99) mg/dL POC Glucose (mg/dL) 226 H (75-99) mg/dL Hemoglobin A1c 7.6 H (4.2-6.1) % Iron 31 L (37-170) ug/dL TIBC 235 L (265-497) ug/dL % Saturation 13.2 L (20-50) % 01/01/17 01/01/17 01/02/17 Range/Units 17:13 20:40 02:31 RBC (3.80-5.40) m/uL Hgb (11.4-16.0) gm/dL Hct (34.0-46.0) % BUN (7-17) mg/dL Creatinine (0.52-1.04) mg/dL Glucose (74-99) mg/dL POC Glucose (mg/dL) 172 H 250 H 194 H (75-99) mg/dL Hemoglobin A1c (4.2-6.1) % Iron (37-170) ug/dL TIBC (265-497) ug/dL % Saturation (20-50) % 01/02/17 01/02/17 01/02/17 Range/Units 06:09 06:09 06:13 RBC 2.76 L (3.80-5.40) m/uL Hgb 8.1 L (11.4-16.0) gm/dL Hct 25.6 L (34.0-46.0) % BUN 42 H (7-17) mg/dL Creatinine 3.01 H (0.52-1.04) mg/dL Glucose 157 H (74-99) mg/dL POC Glucose (mg/dL) 162 H (75-99) mg/dL Hemoglobin A1c (4.2-6.1) % Iron (37-170) ug/dL TIBC (265-497) ug/dL % Saturation (20-50) %
[2017-01-02] MEDS: IPRATROPIUM-ALBUTEROL 3 ML NEB INHALATION PRN ×3 (11:25→20:37)
[2017-01-02 11:37] LABS: Glucose,Whole Blood 303 mg/dL (75-99)
[2017-01-02] MEDS ORDERED: INSULIN LISPRO (humaLOG) 300 UNIT/3 ML VIAL SQ ONE (12:10)
[2017-01-02] MEDS: INSULIN LISPRO (humaLOG) 300 UNIT/3 ML VIAL SQ SCH ×3 (12:41→21:15)
[2017-01-02] MEDS ORDERED: NON-FORMULARY DRUG (Fish Oil/Dha/Epa [Fish Oil 1,200 Mg Fish Oil] 1 CAP) PO SCH (16:28)
[2017-01-02 17:32] LABS: Glucose,Whole Blood 186 mg/dL (75-99)
[2017-01-02] MEDS: ASPIRIN 81 MG PO SCH (19:49)
[2017-01-02] MEDS: MAGNESIUM OXIDE 400 MG TAB PO SCH (19:49)
[2017-01-02 20:41] LABS: Glucose,Whole Blood 201 mg/dL (75-99)
[2017-01-02] MEDS: INSULIN GLARGINE 100 UNIT/ML 10 ML VIAL SQ SCH (21:21)
[2017-01-03 06:22] LABS: Glucose,Whole Blood 198 mg/dL (75-99)
[2017-01-03 06:27] LABS: CH 30.3; CHCM 33.1; HCT 25.9 % (34.0-46.0); HDW 2.84; HGB 8.5 gm/dL (11.4-16.0); MCH 30.3 pg (25.0-35.0); MCHC 32.9 g/dL (31.0-37.0); Mean Platelet Volume 9.8; RBC 2.82 m/uL (3.80-5.40); RDW 15.5 % (11.5-15.5); WBC 11.4 k/uL (3.8-10.6)
[2017-01-03] MEDS: PANTOPRAZOLE 40 MG TABLET PO SCH (06:28)
[2017-01-03] MEDS: INSULIN LISPRO (humaLOG) 300 UNIT/3 ML VIAL SQ SCH ×4 (06:33→20:56)
[2017-01-03 06:41] LABS: Calcium 8.9 mg/dL (8.4-10.2)
[2017-01-03] MEDS: BUDESONIDE 1 MG/2 ML NEBU INHALATION SCH ×2 (07:48→20:03)
[2017-01-03] MEDS: IPRATROPIUM-ALBUTEROL 3 ML NEB INHALATION PRN ×2 (07:48→20:03)
[2017-01-03] MEDS: CHOLECALCIFEROL 1,000 UNIT TAB PO SCH (08:55)
[2017-01-03] MEDS: AMOXIC-POT CLAV 500-125 MG 1 EACH TAB PO SCH ×2 (08:55→20:41)
[2017-01-03] MEDS: GABAPENTIN 300 MG CAP PO SCH ×2 (08:55→20:44)
[2017-01-03] MEDS: ISOSORBIDE MONONITRATE ER 30 MG TAB.ER.24H PO SCH (08:55)
[2017-01-03] MEDS: METOLAZONE 5 MG TAB PO SCH (08:55)
[2017-01-03] MEDS: DULoxetine HCL 60 MG CAPSULE.DR PO SCH (08:55)
[2017-01-03] MEDS: EZETIMIBE 10 MG TAB PO SCH (08:55)
[2017-01-03] MEDS: APIXABAN 2.5 MG TABLET PO SCH ×2 (08:55→20:37)
[2017-01-03] MEDS: DOCUSATE 100 MG CAP PO SCH ×2 (08:55→20:44)
[2017-01-03] MEDS: hydrALAZINE HCL 25 MG TAB PO SCH ×2 (08:56→20:44)
[2017-01-03] MEDS: hydrALAZINE HCL 50 MG TAB PO SCH ×2 (08:56→20:44)
[2017-01-03] MEDS: LORATADINE 10 MG TAB PO SCH (08:56)
[2017-01-03] MEDS: METOPROLOL SUCCINATE (ER) 50 MG TAB.ER.24H PO SCH (08:56)
[2017-01-03] MEDS ORDERED: FUROSEMIDE 10 MG/ML 2 ML VIAL IV SCH (09:00)
--- NOTE | 2017-01-03 11:02 | P.PN ---
Subjective Principal diagnosis: CHF This is a 71-year-old female with history of chronic persistent atrial fibrillation, coronary artery disease with prior myocardial infarction, diabetes, hypertension, hyperlipidemia, chronic kidney disease stage IV, peripheral neuropathy, who was recently in the hospital in November at that time for diastolic congestive heart failure as well as a tooth abscess. Patient re- presented to the hospital with symptoms of worsening shortness of breath and is currently again being treated for diastolic congestive heart failure. She is on an IV Lasix drip which is being managed by nephrology at this time. Hemoglobin 8.5, BUN 48, creatinine 3.4. Marginal urine output. Objective - Vital Signs Vital signs: Vital Signs Temp 97.5 F L 01/03/17 08:00 Pulse 80 01/03/17 08:07 Resp 22 01/03/17 08:00 BP 128/60 01/03/17 08:00 Pulse Ox 91 L 01/03/17 08:00 Intake & Output 01/02/17 01/03/17 01/03/17 18:59 06:59 18:59 Intake Total 616 270 Output Total 250 200 Balance 366 70 Weight 97.7 kg Intake: IV 270 0.9 @10mls/ hr 90 Furosemide 250 mg In 140 Sodium Chloride 0.9% 225 ml @ 10 MG/HR 10 mls/hr IV .Q24H [facility] Rx#: [id number] flush 40 Oral 616 Output: Urine 250 200 Other: Voiding Method Bedside Commode Bedside Commode - Exam PHYSICAL EXAMINATION: HEENT: Head is atraumatic, normocephalic. Pupils equal, round. Neck is supple. There is no elevated jugular venous pressure. HEART EXAMINATION: Heart S1 and S2 irregularly irregular a systolic murmur is heard CHEST EXAMINATION: On's reveal diminished air entry bilaterally with rales to the bases and expiratory wheezes heard ABDOMEN: Soft, nontender. Bowel sounds are heard. No organomegaly noted. EXTREMITIES: 2+ peripheral pulses with evidence of peripheral edema and no calf tenderness noted. NEUROLOGIC patient is awake, alert and oriented -3. . - Labs CBC & Chem 7: 01/03/17 05:49 01/03/17 05:49 Labs: Abnormal Lab Results - Last 24 Hours (Table) 01/02/17 01/02/17 01/02/17 Range/Units 11:35 17:09 20:32 WBC (3.8-10.6) k/uL RBC (3.80-5.40) m/uL Hgb (11.4-16.0) gm/dL Hct (34.0-46.0) % Sodium (137-145) mmol/L Chloride (98-107) mmol/L BUN (7-17) mg/dL Creatinine (0.52-1.04) mg/dL Glucose (74-99) mg/dL POC Glucose (mg/dL) 303 H 186 H 201 H (75-99) mg/dL 01/03/17 01/03/17 01/03/17 Range/Units 05:49 05:49 06:13 WBC 11.4 H (3.8-10.6) k/uL RBC 2.82 L (3.80-5.40) m/uL Hgb 8.5 L (11.4-16.0) gm/dL Hct 25.9 L (34.0-46.0) % Sodium 133 L (137-145) mmol/L Chloride 94 L (98-107) mmol/L BUN 48 H (7-17) mg/dL Creatinine 3.40 H (0.52-1.04) mg/dL Glucose 166 H (74-99) mg/dL POC Glucose (mg/dL) 198 H (75-99) mg/dL Assessment and Plan (1) COPD (chronic obstructive pulmonary disease) Status: Acute (2) Diastolic CHF, acute on chronic Status: Acute (3) Moderate aortic stenosis Status: Acute (4) Kidney disease, chronic, stage IV (GFR 15-29 ml/min) Status: Acute (5) HTN (hypertension) Status: Acute (6) Paroxysmal a-fib Status: Acute (7) Obesity Status: Acute (8) Hyperlipemia Status: Acute (9) Diabetes Status: Acute (10) CAD (coronary artery disease) Status: Acute Plan: From cardiology's perspective, Blood pressure today is under much better control , 128/60. Continue current medications, IV Lasix as per nephrology. DNP note has been reviewed, I agree with a documented findings and plan of care. Patient was seen and examined.
[2017-01-03 12:01] LABS: Glucose,Whole Blood 163 mg/dL (75-99)
--- NOTE | 2017-01-03 13:54 | P.PN ---
Subjective This is a 71-year-old female patient of Dr. Garcia with past medical history of atrial fibrillation, coronary artery disease status post myocardial infarction, chronic heart failure, diabetes mellitus type 2, hyperlipidemia, hypertension, chronic kidney disease stage IV, peripheral neuropathy.patient was recently hospitalized at [facility] in 2016 and she was discharged on 12/29/2016 after she was treated for acute diastolic heart failure and tooth abscess for which she was started on IV antibiotic initially and subsequent she was switched to oral Augmentin and she was placed back on her Eliquis, she was given instruction to stop the Eliquis for 48 hours prior to pulling her tooth next week. Patient was doing fine up until yesterday when she developed to have an increased shortness breath and she ended up coming to the ER at [facility] again with significant shortness of breath, she was suggestive of pulmonary edema and she was quite tight in her chest she was admitted to the hospital for evaluation bipolar medicine cardiology was started on Lasix 40 mg IV push every 8 hours, pulmonary as stated earlier and cardiology consultation were obtained. 01/01: Patient remains on Lasix 40 mg IV every 12 hours. Weight is down 1.8 kg. Nebulizer helped her with breathing yesterday. She continues to have wheezing in Pulmicort added. BUN is 43 with creatinine of 2.8. Blood pressure is on the high side for which hydralazine increased to 50 mg twice daily. Repeat troponins were 0.013 and 0.079. Cardiology is on consult. 01/02: Dr. Delacruz has evaluated the patient and medication changes were made for hypertension. He has resumed her back on Procardia. Dr. Guardado has seen the patient and increase Lasix to 100 mg every 8 hours yesterday and today switched to lasix drip. Today BUN is 42 and creatinine 3.01. Patient's weight is down 0.4 kg from yesterday. She is complaining of shortness of breath, little cough and feeling tired. 01/03: Documented weight today is 2 kg higher than yesterday. Renal numbers are higher today with a BUN of 48 and creatinine 3.4. She is currently on Lasix drip. Dr. Botello is recommending dialysis. Blood pressure is better controlled today. Objective - Vital Signs Vital signs: Vital Signs Temp 98.2 F 01/03/17 04:00 Pulse 80 01/03/17 08:07 Resp 20 01/03/17 04:00 BP 168/72 01/03/17 04:00 Pulse Ox 90 L 01/03/17 07:51 Intake & Output 01/02/17 01/03/17 01/03/17 18:59 06:59 18:59 Intake Total 616 270 Output Total 250 200 Balance 366 70 Weight 97.7 kg Intake: IV 270 0.9 @10mls/ hr 90 Furosemide 250 mg In 140 Sodium Chloride 0.9% 225 ml @ 10 MG/HR 10 mls/hr IV .Q24H [facility] Rx#: [id number] flush 40 Oral 616 Output: Urine 250 200 Other: Voiding Method Bedside Commode Bedside Commode - Exam General appearance: mild to moderate distress, obese - EENT Eyes: anicteric sclerae, EOMI, PERRLA, no ptosis, no scleral icterus, normal appearance ENT: hearing grossly normal, NA/AT, normal oropharynx, no thrush Ears: bilateral: normal - Neck Neck: no lymphadenopathy, normal ROM, no rigidity, no stridor, no thyromegaly Carotids: bilateral: upstroke normal Thyroid: bilateral: normal size - Respiratory Respiratory: bilateral: diminished, dullness, rales, wheezing, prolonged expiration, tachypnea negative: rhonchi - Cardiovascular Rhythm: regularly irregular Heart sounds: normal: S1, S2 Abnormal Heart Sounds: systolic murmur, no rub, S3 Gallop, no click - Gastrointestinal General gastrointestinal: normal bowel sounds, soft, no splenomegaly, no tenderness, no umbilical hernia, no ventral hernia - Integumentary Integumentary: normal, normal turgor - Neurologic Neurologic: CNII-XII intact - Musculoskeletal Musculoskeletal: generalized weakness, strength equal bilaterally - Psychiatric Psychiatric: A&O x's 3, appropriate affect, intact judgment & insight - Labs CBC & Chem 7: 01/03/17 05:49 01/03/17 05:49 Labs: Abnormal Lab Results - Last 24 Hours (Table) 01/02/17 01/02/17 01/02/17 Range/Units 11:35 17:09 20:32 WBC (3.8-10.6) k/uL RBC (3.80-5.40) m/uL Hgb (11.4-16.0) gm/dL Hct (34.0-46.0) % Sodium (137-145) mmol/L Chloride (98-107) mmol/L BUN (7-17) mg/dL Creatinine (0.52-1.04) mg/dL Glucose (74-99) mg/dL POC Glucose (mg/dL) 303 H 186 H 201 H (75-99) mg/dL 01/03/17 01/03/17 01/03/17 Range/Units 05:49 05:49 06:13 WBC 11.4 H (3.8-10.6) k/uL RBC 2.82 L (3.80-5.40) m/uL Hgb 8.5 L (11.4-16.0) gm/dL Hct 25.9 L (34.0-46.0) % Sodium 133 L (137-145) mmol/L Chloride 94 L (98-107) mmol/L BUN 48 H (7-17) mg/dL Creatinine 3.40 H (0.52-1.04) mg/dL Glucose 166 H (74-99) mg/dL POC Glucose (mg/dL) 198 H (75-99) mg/dL Assessment and Plan Plan: 1. Acute hypoxic respiratory failure secondary to acute on chronic diastolic heart failure, COPD exacerbation, moderate aortic stenosis. Continue patient on Lasix IV pus changed to drip, continue oxygen support, continue patient on Imdur 30 mg orally once every day, Toprol-XLl 100 mg orally once every day. O once every day, continue hydralazine increased to 50 mg orally twice every day, nifedipine was resumed. Input and output and daily weight, cardiology consultation. 2. Tooth abscess in the right lower jaw. Continue Augmentin 875 mg orally twice every day. 3. Acute kidney injury with chronic kidney disease stage IV. Lasix drip. Dr. Botello is planning on dialysis. 4. Accelerated hypertension. Continue metoprolol 100 mg orally once every day. 5. Paroxysmal atrial fibrillation. Continue amiodarone 100 mg orally once every day, Eliquis 2.5 mg orally twice every day. 6. Morbid obesity with BMI of 39. 7. Hyperkalemia secondary to chronic renal failure . Resolved. 8. Diabetes mellitus type 2 . Continue Lantus 32 units at bedtime along with a sliding scale insulin. 9. GERD. Continue omeprazole 20 mg orally once every day. 10. Hypertension, hypertensive cardiovascular disease. Continue hydralazine 25 mg orally twice every day, Toprol-XL 100 mg orally once every day discontinue nifedipine. 11. History of myocardial infarction and coronary artery disease. Continue aspirin 81 mg once every day, Toprol-XL 100 mg orally once every day, Imdur 30 mg orally once every day, Zetia 10 mg orally once every day. 12. Hyperlipidemia. 13. Diabetic peripheral neuropathy and neuropathy secondary to chronic back pain. Continue gabapentin 300 mg orally twice every day. 14. Depression. Continue Cymbalta 60 mg orally once every day. 15. DVT prophylaxis. Continue patient on Eliquis 2.5 mg orally twice every day as well as bilateral knee-high TERRIE hose. 16. Prophylaxis. Continue patient on PPI. 17. Full code. 18. The to inpatient. Estimate length of stay 2 midnights. Discharge plan: Most likely home with homecare Impression and plan of care have been directed as dictated by the signing physician. Jessenia Gonzalez nurse practitioner acting as scribe for signing physician.
[2017-01-03] MEDS: ACETAMINOPHEN TAB 325 MG TAB PO PRN (15:38)
[2017-01-03 16:36] LABS: Glucose,Whole Blood 240 mg/dL (75-99)
[2017-01-03] MEDS: DARBEPOETIN ALFA 40 MCG/0.4 ML SYRINGE SQ SCH (17:34)
[2017-01-03] MEDS: FUROSEMIDE 250 MG in SODIUM CHLORIDE 0.9% 225 ML IV SCH (18:01)
[2017-01-03] MEDS: MAGNESIUM OXIDE 400 MG TAB PO SCH (20:44)
[2017-01-03] MEDS: ASPIRIN 81 MG PO SCH (20:44)
[2017-01-03] MEDS: INSULIN GLARGINE 100 UNIT/ML 10 ML VIAL SQ SCH (20:57)
[2017-01-03 20:58] LABS: Glucose,Whole Blood 256 mg/dL (75-99)
--- NOTE | 2017-01-03 21:29 | PN ---
PROGRESS NOTE Patient is seen for followup for CKD, stage IV, going into stage V currently. Patient was admitted with fluid overload. She is currently maintained on Lasix drip. She has had urine output; however, she remains fluid-overloaded. Renal replacement therapy has been discussed with the patient and family and they are in agreement to proceed with dialysis. Patient is, however, on Eliquis, which she has already received today. We will hold off on it and plan is for placement of a femoral catheter tomorrow, through which patient will be dialyzed for a couple of days, and we will plan to do a PermCath on Monday once the patient has been off of Eliquis for at least 48 hours. PHYSICAL EXAMINATION: On examination today, blood pressure is 122/56, heart rate 83 per minute. She is afebrile. EXAMINATION OF THE HEART: S1, S2. EXAMINATION OF LUNGS: Bilateral breath sounds are heard. Decreased breath sounds at bases. Bilateral crackles are heard at the bases. ABDOMEN: Soft, non-tender, obese. Examination of lower extremities shows no evidence of edema. NURSE LIAISON exam is grossly intact. Patient is moving all 4 extremities. LAB: Sodium 133, potassium 4.0. BUN 48, serum creatinine 3.4. Hemoglobin 8.5 g/dL. ASSESSMENT: 1. Chronic kidney disease with worsening renal function and fluid overload, NKF stage IV proceeding to stage V. Will start renal replacement therapy. 2. Fluid overload. Continue with Lasix drip and increase UF as tolerated with hemodialysis. We will plan for dialysis tomorrow. 3. Anemia. No active bleeding noted. Will start patient on Aranesp. PLAN: Start Aranesp and consult Vascular Surgery for placement of a Jay catheter. This patient is on Eliquis and has already received her morning dose. We will plan for a femoral catheter tomorrow and plan for dialysis tomorrow, which is Monday, and on 01/04 and 01/05, with tentative plan to change to IJ PermCath on Monday, which is 01/06/2017. MMODL / SUBHAN: [id number] /
[2017-01-04 03:34] LABS: Glucose,Whole Blood 273 mg/dL (75-99)
[2017-01-04] MEDS: IPRATROPIUM-ALBUTEROL 3 ML NEB INHALATION PRN ×2 (03:38→07:11)
[2017-01-04] MEDS: ALPRAZolam 0.25 MG TAB PO PRN (03:46)
[2017-01-04] MEDS: FUROSEMIDE 250 MG in SODIUM CHLORIDE 0.9% 225 ML IV SCH (03:46)
[2017-01-04 05:27] LABS: ABG Base Excess 3.7 mmol/L; ABG HCO3 29 mmol/L (21-25); ABG PCO2 51 mmHg (35-45); ABG PH 7.37 (7.35-7.45); ABG PO2 97 mmHg (83-108); ABG TCO2 30 mmol/L (19-24)
[2017-01-04 05:40] LABS: Glucose,Whole Blood 281 mg/dL (75-99)
[2017-01-04 06:12] LABS: CH 30.3; CHCM 33.1; HCT 24.1 % (34.0-46.0); HDW 2.92; HGB 7.8 gm/dL (11.4-16.0); MCH 29.7 pg (25.0-35.0); MCHC 32.3 g/dL (31.0-37.0); Mean Platelet Volume 10.1; RBC 2.62 m/uL (3.80-5.40); RDW 15.2 % (11.5-15.5); WBC 11.8 k/uL (3.8-10.6)
[2017-01-04 06:19] LABS: Calcium 8.7 mg/dL (8.4-10.2); Potassium 4.2 mmol/L (3.5-5.1)
[2017-01-04] MEDS: PANTOPRAZOLE 40 MG TABLET PO SCH (06:22)
[2017-01-04] MEDS: INSULIN LISPRO (humaLOG) 300 UNIT/3 ML VIAL SQ SCH ×4 (06:23→21:49)
[2017-01-04] MEDS: BUDESONIDE 1 MG/2 ML NEBU INHALATION SCH ×2 (07:12→21:05)
[2017-01-04] MEDS ORDERED: LIDOCAINE 2% INJ 20 MG/ML SQ ONE ×3 (08:32→08:40)
--- NOTE | 2017-01-04 10:25 | IR ---
EXAMINATION TYPE: IR cvc insert non tunneled DATE OF EXAM: 01/04/2017 COMPARISON: NONE HISTORY: Peripheral vascular occlusive disease. Fluoroscopy was provided to the referring clinician. See dictated report from cardiology.
--- NOTE | 2017-01-04 10:26 | CONS ---
CONSULTATION This is a 71-year-old female, I was consulted for placement of an urgent dialysis catheter. Patient is in acute diastolic heart failure. Patient has history of atrial fibrillation. She is on Eliquis which was stopped yesterday, patient has history of diabetes mellitus, history of hyperlipidemia, hypertension, chronic kidney disease. PHYSICAL EXAMINATION: Patient was seen in her room. She has some shortness of breath. Neck is supple. No bruit appreciated. Chest has crackles bilateral. Abdomen is protuberant. Femoral pulses are not palpable. PLAN: Placement of the dialysis catheter. Risks and complications, bleeding, infection has been discussed. MMODL / IJN: [id number] /
--- NOTE | 2017-01-04 10:33 | P.PN ---
Subjective Principal diagnosis: CHF This is a 71-year-old female with history of chronic persistent atrial fibrillation, coronary artery disease with prior myocardial infarction, diabetes, hypertension, hyperlipidemia, chronic kidney disease stage IV, peripheral neuropathy, who was recently in the hospital in November at that time for diastolic congestive heart failure as well as a tooth abscess. Patient re- presented to the hospital with symptoms of worsening shortness of breath and is currently again being treated for diastolic congestive heart failure. She is on an IV Lasix drip which is being managed by nephrology at this time. Hemoglobin 8.5, BUN 48, creatinine 3.4. Marginal urine output. 01/04/2017 Patient seen and examined this morning,scheduled today to undergo insertion of a permacath with the plan to initiate dialysis today.patient continues to be on Lasix drip. Minimal urine output.hemoglobin 7.8, potassium 4.2, creatinine 4.01. Objective - Vital Signs Vital signs: Vital Signs Temp 98.2 F 01/04/17 04:00 Pulse 78 01/04/17 09:34 Resp 20 01/04/17 09:34 BP 143/67 01/04/17 09:34 Pulse Ox 93 L 01/04/17 09:34 Intake & Output 01/03/17 01/04/17 01/04/17 18:59 06:59 18:59 Intake Total 590 340 Output Total 200 400 Balance 390 -60 Weight 101.3 kg Intake: IV 160 100 0.9 @10mls/ hr 80 50 Furosemide 250 mg In 80 50 Sodium Chloride 0.9% 225 ml @ 10 MG/HR 10 mls/hr IV .Q24H JONEL Rx#: [id number] Intake, IV Titration 250 Amount Furosemide 250 mg In 250 Sodium Chloride 0.9% 225 ml @ 10 MG/HR 10 mls/hr IV .Q24H JONEL Rx#: [id number] Oral 180 240 Output: Urine 200 400 Other: Voiding Method Bedside Commode Bedside Commode # Voids 4 1 - Exam PHYSICAL EXAMINATION: HEENT: Head is atraumatic, normocephalic. Pupils equal, round. Neck is supple. There is no elevated jugular venous pressure. HEART EXAMINATION: Heart S1 and S2 irregularly irregular a systolic murmur is heard CHEST EXAMINATION: On's reveal diminished air entry bilaterally with rales to the bases and expiratory wheezes heard ABDOMEN: Soft, nontender. Bowel sounds are heard. No organomegaly noted. EXTREMITIES: 2+ peripheral pulses with evidence of peripheral edema and no calf tenderness noted. NEUROLOGIC patient is awake, alert and oriented -3. . - Labs CBC & Chem 7: 01/04/17 05:42 01/04/17 05:42 Labs: Abnormal Lab Results - Last 24 Hours (Table) 01/03/17 01/03/17 01/03/17 Range/Units 11:53 16:35 20:53 WBC (3.8-10.6) k/uL RBC (3.80-5.40) m/uL Hgb (11.4-16.0) gm/dL Hct (34.0-46.0) % ABG pCO2 (35-45) mmHg ABG HCO3 (21-25) mmol/L ABG Total CO2 (19-24) mmol/L Sodium (137-145) mmol/L Chloride (98-107) mmol/L BUN (7-17) mg/dL Creatinine (0.52-1.04) mg/dL Glucose (74-99) mg/dL POC Glucose (mg/dL) 163 H 240 H 256 H (75-99) mg/dL 01/04/17 01/04/17 01/04/17 Range/Units 03:32 04:45 05:38 WBC (3.8-10.6) k/uL RBC (3.80-5.40) m/uL Hgb (11.4-16.0) gm/dL Hct (34.0-46.0) % ABG pCO2 51 H (35-45) mmHg ABG HCO3 29 H (21-25) mmol/L ABG Total CO2 30 H (19-24) mmol/L Sodium (137-145) mmol/L Chloride (98-107) mmol/L BUN (7-17) mg/dL Creatinine (0.52-1.04) mg/dL Glucose (74-99) mg/dL POC Glucose (mg/dL) 273 H 281 H (75-99) mg/dL 01/04/17 01/04/17 Range/Units 05:42 05:42 WBC 11.8 H (3.8-10.6) k/uL RBC 2.62 L (3.80-5.40) m/uL Hgb 7.8 L (11.4-16.0) gm/dL Hct 24.1 L (34.0-46.0) % ABG pCO2 (35-45) mmHg ABG HCO3 (21-25) mmol/L ABG Total CO2 (19-24) mmol/L Sodium 134 L (137-145) mmol/L Chloride 94 L (98-107) mmol/L BUN 53 H (7-17) mg/dL Creatinine 4.01 H (0.52-1.04) mg/dL Glucose 231 H (74-99) mg/dL POC Glucose (mg/dL) (75-99) mg/dL Assessment and Plan (1) COPD (chronic obstructive pulmonary disease) Status: Acute (2) Diastolic CHF, acute on chronic Status: Acute (3) Moderate aortic stenosis Status: Acute (4) Kidney disease, chronic, stage IV (GFR 15-29 ml/min) Status: Acute (5) HTN (hypertension) Status: Acute (6) Paroxysmal a-fib Status: Acute (7) Obesity Status: Acute (8) Hyperlipemia Status: Acute (9) Diabetes Status: Acute (10) CAD (coronary artery disease) Status: Acute Plan: From cardiology's perspective, we would recommend to continue current medications. Patient is scheduled to undergo catheter placement to have dialysis initiated today. We will continue to follow. DNP note has been reviewed, I agree with a documented findings and plan of care. Patient was seen and examined.
--- NOTE | 2017-01-04 10:38 | PCN ---
PROCEDURE NOTE PREOPERATIVE DIAGNOSE: Acute renal failure with acute respiratory failure secondary to acute diastolic heart failure. PROCEDURE: Ultrasound-guided placement of dialysis catheter right femoral approach 20 cm in length. Patient is brought to the [facility]. Right groin was prepped and draped in sterile manner; 1% lidocaine filled in over the groin area. Micropuncture needle introduced to the right common femoral vein and a 4-Kosovan dilator advanced off the guidewire. We checked under fluoroscopy and after that, dilator was advanced on the top of the guidewire. Then we placed 27 cm long dialysis catheter, tip of catheter was in the inferior vena cava, secured with 3-0 silk and flushed with heparin saline, Hep-Locked. Dressing applied. Patient tolerated the procedure well. . EBENEZERL / IJN: [id number] /
[2017-01-04 11:32] LABS: Glucose,Whole Blood 197 mg/dL (75-99)
[2017-01-04] MEDS: APIXABAN 2.5 MG TABLET PO SCH ×2 (11:41→21:49)
[2017-01-04] MEDS: AMOXIC-POT CLAV 500-125 MG 1 EACH TAB PO SCH ×2 (11:49→21:48)
[2017-01-04] MEDS: CHOLECALCIFEROL 1,000 UNIT TAB PO SCH (11:49)
[2017-01-04] MEDS: EZETIMIBE 10 MG TAB PO SCH (11:50)
[2017-01-04] MEDS: DOCUSATE 100 MG CAP PO SCH ×2 (11:50→21:49)
[2017-01-04] MEDS: GABAPENTIN 300 MG CAP PO SCH ×2 (11:50→21:49)
[2017-01-04] MEDS: DULoxetine HCL 60 MG CAPSULE.DR PO SCH (11:50)
[2017-01-04] MEDS: hydrALAZINE HCL 25 MG TAB PO SCH ×2 (11:50→21:49)
[2017-01-04] MEDS: METOPROLOL SUCCINATE (ER) 50 MG TAB.ER.24H PO SCH (11:51)
[2017-01-04] MEDS: METOLAZONE 5 MG TAB PO SCH (11:51)
[2017-01-04] MEDS: LORATADINE 10 MG TAB PO SCH (11:51)
[2017-01-04] MEDS: ISOSORBIDE MONONITRATE ER 30 MG TAB.ER.24H PO SCH (11:51)
[2017-01-04 12:59] LABS: Hepatitis B Surface Ag Index 0.05
[2017-01-04 13:05] LABS: Hepatitis B Core IgM Index 0.01
[2017-01-04 13:16] LABS: Hepatitis C Virus IgG Ab Negative (Negative); Hepatitis C Virus IgG Index 0.17
--- NOTE | 2017-01-04 13:38 | PN ---
PROGRESS NOTE Patient is seen for followup for chronic kidney disease with worsening renal function and volume status. The patient has just returned from having right femoral Jay placed. She will be dialyzed today. She remains on the Lasix drip. Currently, she is sleeping and she very comfortable. PHYSICAL EXAMINATION: On examination, blood pressure 143/67, heart rate 78 per minute. Patient is afebrile. EXAMINATION OF THE HEART: S1 and S2. EXAMINATION OF THE LUNGS: Decreased breath sounds at bases. Abdomen is soft, nontender, obese. Examination of lower extremities shows no significant edema. LABS: Labs show sodium 134, potassium 4.2, BUN 53, serum creatinine 4.0. Hemoglobin 7.8 g/dL. ASSESSMENT: 1. Chronic kidney disease, stage 4 with worsening renal function, currently end-stage renal disease and patient will be starting hemodialysis. She had just returned from having a right femoral Jay catheter placed. We will arrange for hemodialysis today as well as tomorrow and hopefully she will get a right IJ PermCath on Monday01/06/2017. 2. Anemia with significant drop in hemoglobin at 7.8 from today. There is no active bleeding noted. The patient is maintained on Aranesp. 3. Fluid overload/congestive heart failure mainly diastolic dysfunction, currently on Lasix drip, which we will continue. 4. Hypertension, currently controlled. PLAN: Continue Lasix drip. We will plan for hemodialysis today as well as in a.m. We can likely discontinue the Lasix drip tomorrow. We will plan for placement for outpatient hemodialysis. Continue to hold off on the Eliquis until the PermCath is placed, which will be in the next 2 days. Also add, transfuse packed RBCs if hemoglobin drops further. I will also reorder iron studies. MMODL / IJN: [id number] /
[2017-01-04 13:42] LABS: % Iron Saturation 15.8 % (20-50)
--- NOTE | 2017-01-04 14:17 | P.PN ---
Subjective This is a 71-year-old female patient of Dr. Garcia with past medical history of atrial fibrillation, coronary artery disease status post myocardial infarction, chronic heart failure, diabetes mellitus type 2, hyperlipidemia, hypertension, chronic kidney disease stage IV, peripheral neuropathy.patient was recently hospitalized at [facility] in 2016 and she was discharged on 12/29/2016 after she was treated for acute diastolic heart failure and tooth abscess for which she was started on IV antibiotic initially and subsequent she was switched to oral Augmentin and she was placed back on her Eliquis, she was given instruction to stop the Eliquis for 48 hours prior to pulling her tooth next week. Patient was doing fine up until yesterday when she developed to have an increased shortness breath and she ended up coming to the ER at [facility] again with significant shortness of breath, she was suggestive of pulmonary edema and she was quite tight in her chest she was admitted to the hospital for evaluation bipolar medicine cardiology was started on Lasix 40 mg IV push every 8 hours, pulmonary as stated earlier and cardiology consultation were obtained. 01/01: Patient remains on Lasix 40 mg IV every 12 hours. Weight is down 1.8 kg. Nebulizer helped her with breathing yesterday. She continues to have wheezing in Pulmicort added. BUN is 43 with creatinine of 2.8. Blood pressure is on the high side for which hydralazine increased to 50 mg twice daily. Repeat troponins were 0.013 and 0.079. Cardiology is on consult. 01/02: Dr. Delacruz has evaluated the patient and medication changes were made for hypertension. He has resumed her back on Procardia. Dr. Guardado has seen the patient and increase Lasix to 100 mg every 8 hours yesterday and today switched to lasix drip. Today BUN is 42 and creatinine 3.01. Patient's weight is down 0.4 kg from yesterday. She is complaining of shortness of breath, little cough and feeling tired. 01/03: Documented weight today is 2 kg higher than yesterday. Renal numbers are higher today with a BUN of 48 and creatinine 3.4. She is currently on Lasix drip. Dr. Botello is recommending dialysis. Blood pressure is better controlled today. 01/04: Patient remains on insulin drip. Her weight is up 3-1/2 kg today with minimal urine output. BUN is now 53 and creatinine 4.01 with hemoglobin 7.8. Capillary blood glucoses running in the 300s and Lantus will be increased to [address] Levy is on consult and patient underwent permacath placement right femoral artery this morning. BiPAP was required last evening. Pulse ox is now 93% on 5 L. Objective - Vital Signs Vital signs: Vital Signs Temp 98.2 F 01/04/17 04:00 Pulse 78 01/04/17 09:34 Resp 20 01/04/17 09:34 BP 143/67 01/04/17 09:34 Pulse Ox 93 L 01/04/17 09:34 Intake & Output 01/03/17 01/04/17 01/04/17 18:59 06:59 18:59 Intake Total 590 340 Output Total 200 400 Balance 390 -60 Weight 101.3 kg Intake: IV 160 100 0.9 @10mls/ hr 80 50 Furosemide 250 mg In 80 50 Sodium Chloride 0.9% 225 ml @ 10 MG/HR 10 mls/hr IV .Q24H JONEL Rx#: [id number] Intake, IV Titration 250 Amount Furosemide 250 mg In 250 Sodium Chloride 0.9% 225 ml @ 10 MG/HR 10 mls/hr IV .Q24H JONEL Rx#: [id number] Oral 180 240 Output: Urine 200 400 Other: Voiding Method Bedside Commode Bedside Commode # Voids 4 1 - Exam General appearance: mild to moderate distress, obese - EENT Eyes: anicteric sclerae, EOMI, PERRLA, no ptosis, no scleral icterus, normal appearance ENT: hearing grossly normal, NA/AT, normal oropharynx, no thrush Ears: bilateral: normal - Neck Neck: no lymphadenopathy, normal ROM, no rigidity, no stridor, no thyromegaly Carotids: bilateral: upstroke normal Thyroid: bilateral: normal size - Respiratory Respiratory: bilateral: diminished, dullness, rales, wheezing, prolonged expiration, tachypnea negative: rhonchi - Cardiovascular Rhythm: regularly irregular Heart sounds: normal: S1, S2 Abnormal Heart Sounds: systolic murmur, no rub, S3 Gallop, no click - Gastrointestinal General gastrointestinal: normal bowel sounds, soft, no splenomegaly, no tenderness, no umbilical hernia, no ventral hernia - Integumentary Integumentary: normal, normal turgor - Neurologic Neurologic: CNII-XII intact - Musculoskeletal Musculoskeletal: generalized weakness, strength equal bilaterally - Psychiatric Psychiatric: A&O x's 3, appropriate affect, intact judgment & insight - Labs CBC & Chem 7: 01/04/17 05:42 01/04/17 05:42 Labs: Abnormal Lab Results - Last 24 Hours (Table) 01/03/17 01/03/17 01/03/17 Range/Units 11:53 16:35 20:53 WBC (3.8-10.6) k/uL RBC (3.80-5.40) m/uL Hgb (11.4-16.0) gm/dL Hct (34.0-46.0) % ABG pCO2 (35-45) mmHg ABG HCO3 (21-25) mmol/L ABG Total CO2 (19-24) mmol/L Sodium (137-145) mmol/L Chloride (98-107) mmol/L BUN (7-17) mg/dL Creatinine (0.52-1.04) mg/dL Glucose (74-99) mg/dL POC Glucose (mg/dL) 163 H 240 H 256 H (75-99) mg/dL 01/04/17 01/04/17 01/04/17 Range/Units 03:32 04:45 05:38 WBC (3.8-10.6) k/uL RBC (3.80-5.40) m/uL Hgb (11.4-16.0) gm/dL Hct (34.0-46.0) % ABG pCO2 51 H (35-45) mmHg ABG HCO3 29 H (21-25) mmol/L ABG Total CO2 30 H (19-24) mmol/L Sodium (137-145) mmol/L Chloride (98-107) mmol/L BUN (7-17) mg/dL Creatinine (0.52-1.04) mg/dL Glucose (74-99) mg/dL POC Glucose (mg/dL) 273 H 281 H (75-99) mg/dL 01/04/17 01/04/17 Range/Units 05:42 05:42 WBC 11.8 H (3.8-10.6) k/uL RBC 2.62 L (3.80-5.40) m/uL Hgb 7.8 L (11.4-16.0) gm/dL Hct 24.1 L (34.0-46.0) % ABG pCO2 (35-45) mmHg ABG HCO3 (21-25) mmol/L ABG Total CO2 (19-24) mmol/L Sodium 134 L (137-145) mmol/L Chloride 94 L (98-107) mmol/L BUN 53 H (7-17) mg/dL Creatinine 4.01 H (0.52-1.04) mg/dL Glucose 231 H (74-99) mg/dL POC Glucose (mg/dL) (75-99) mg/dL Assessment and Plan Plan: 1. Acute hypoxic respiratory failure secondary to acute on chronic diastolic heart failure, COPD exacerbation, moderate aortic stenosis. Continue patient on Lasix IV pus changed to drip, continue oxygen support, continue patient on Imdur 30 mg orally once every day, Toprol-XLl 100 mg orally once every day. O once every day, continue hydralazine increased to 75 mg orally twice every day, nifedipine was resumed, Zaroxolyn. Input and output and daily weight, cardiology consultation. Patient to start dialysis 2. Tooth abscess in the right lower jaw. Continue Augmentin 875 mg orally twice every day. 3. Acute kidney injury with chronic kidney disease stage IV. Lasix drip. Dr. Botello is planning on dialysis. 4. Accelerated hypertension. Continue metoprolol 100 mg orally once every day. 5. Paroxysmal atrial fibrillation. Continue amiodarone 100 mg orally once every day, Eliquis 2.5 mg orally twice every day. 6. Morbid obesity with BMI of 39. 7. Hyperkalemia secondary to chronic renal failure . Resolved. 8. Diabetes mellitus type 2 . Continue Lantus 36 units at bedtime along with a sliding scale insulin. 9. GERD. Continue omeprazole 20 mg orally once every day. 10. Hypertension, hypertensive cardiovascular disease. Continue hydralazine 25 mg orally twice every day, Toprol-XL 100 mg orally once every day discontinue nifedipine. 11. History of myocardial infarction and coronary artery disease. Continue aspirin 81 mg once every day, Toprol-XL 100 mg orally once every day, Imdur 30 mg orally once every day, Zetia 10 mg orally once every day. 12. Hyperlipidemia. 13. Diabetic peripheral neuropathy and neuropathy secondary to chronic back pain. Continue gabapentin 300 mg orally twice every day. 14. Depression. Continue Cymbalta 60 mg orally once every day. 15. DVT prophylaxis. Continue patient on Eliquis 2.5 mg orally twice every day as well as bilateral knee-high TERRIE hose. 16. Prophylaxis. Continue patient on PPI. 17. Full code. Discharge plan: Most likely home with homecare Impression and plan of care have been directed as dictated by the signing physician. Jessenia Gonzalez nurse practitioner acting as scribe for signing physician.
[2017-01-04 16:36] LABS: Glucose,Whole Blood 205 mg/dL (75-99)
[2017-01-04] MEDS ORDERED: HEPARIN SODIUM,PORCINE 5,000 UNIT/ML 1 ML VIAL ONE (18:00)
[2017-01-04 21:09] LABS: Glucose,Whole Blood 148 mg/dL (75-99)
[2017-01-04] MEDS: INSULIN GLARGINE 100 UNIT/ML 10 ML VIAL SQ SCH (21:49)
[2017-01-04] MEDS: MAGNESIUM OXIDE 400 MG TAB PO SCH (21:49)
[2017-01-04] MEDS: ASPIRIN 81 MG PO SCH (21:49)
[2017-01-05] MEDS ORDERED: HEPARIN SODIUM,PORCINE 5,000 UNIT/ML 1 ML VIAL ONE (01:00)
[2017-01-05] MEDS: FUROSEMIDE 250 MG in SODIUM CHLORIDE 0.9% 225 ML IV SCH (01:51)
[2017-01-05 06:09] LABS: Glucose,Whole Blood 97 mg/dL (75-99)
[2017-01-05] MEDS: PANTOPRAZOLE 40 MG TABLET PO SCH (06:16)
[2017-01-05] MEDS: INSULIN LISPRO (humaLOG) 300 UNIT/3 ML VIAL SQ SCH ×4 (06:16→22:46)
[2017-01-05] MEDS: BUDESONIDE 1 MG/2 ML NEBU INHALATION SCH ×2 (08:07→19:37)
[2017-01-05] MEDS: IPRATROPIUM-ALBUTEROL 3 ML NEB INHALATION PRN ×3 (08:07→19:37)
[2017-01-05 10:08] LABS: Calcium 8.5 mg/dL (8.4-10.2)
--- NOTE | 2017-01-05 11:02 | P.PN ---
Subjective Patient is seen in follow-up for chronic kidney disease which now seems to have progressed to end-stage renal disease. Patient remains quite dyspneic with labored breathing. She underwent first treatment of hemodialysis yesterday and is currently undergoing her second treatment. She still maintained on Lasix drip but states her urine output is minimal. Denies chest pain. No vomiting or diarrhea. Oral intake is fair. Vital signs are stable. General: The patient appeared well nourished and normally developed. HEENT: Head exam is unremarkable. Neck is without jugular venous distension. LUNGS: Lungs are clear to auscultation and percussion. Breath sounds decreased. HEART: Rate and Rhythm are regular. First and second heart sounds normal. No murmurs, rubs or gallops. ABDOMEN: Abdominal exam reveals normal bowel sounds. Non-tender and non- distended. No evidence of peritonitis. EXTREMITITES: 1+ edema. Objective - Vital Signs Vital signs: Vital Signs Temp 98.5 F 01/05/17 08:00 Pulse 104 H 01/05/17 08:42 Resp 20 01/05/17 08:00 BP 126/60 01/05/17 08:00 Pulse Ox 91 L 01/05/17 08:00 Intake & Output 01/04/17 01/05/17 01/05/17 18:59 06:59 18:59 Intake Total 420.833 120 Balance 420.833 120 Weight 101.3 kg 105.5 kg 105.5 kg Intake: IV 200 0.9 @10mls/ hr 100 Furosemide 250 mg In 100 Sodium Chloride 0.9% 225 ml @ 10 MG/HR 10 mls/hr IV .Q24H JONEL Rx#: [id number] Intake, IV Titration 220.833 Amount Furosemide 250 mg In 220.833 Sodium Chloride 0.9% 225 ml @ 10 MG/HR 10 mls/hr IV .Q24H JONEL Rx#: [id number] Oral 120 Other: Voiding Method Bedside Commode Bedside Commode Bedside Commode Diaper Diaper # Voids 1 1 - Labs CBC & Chem 7: 01/04/17 05:42 01/05/17 09:08 Labs: Abnormal Lab Results - Last 24 Hours (Table) 01/04/17 01/04/17 01/04/17 Range/Units 05:42 11:28 16:19 Sodium (137-145) mmol/L Chloride (98-107) mmol/L BUN (7-17) mg/dL Creatinine (0.52-1.04) mg/dL Glucose (74-99) mg/dL POC Glucose (mg/dL) 197 H 205 H (75-99) mg/dL TIBC 234 L (265-497) ug/dL % Saturation 15.8 L (20-50) % 01/04/17 01/05/17 Range/Units 21:05 09:08 Sodium 136 L (137-145) mmol/L Chloride 96 L (98-107) mmol/L BUN 44 H (7-17) mg/dL Creatinine 3.70 H (0.52-1.04) mg/dL Glucose 182 H (74-99) mg/dL POC Glucose (mg/dL) 148 H (75-99) mg/dL TIBC (265-497) ug/dL % Saturation (20-50) % Assessment and Plan Plan: Assessment: #1. Chronic kidney disease stage IV now seem to have progressed to end-stage renal disease requiring hemodialysis. #2. Volume overload. #3. Diastolic CHF. Decompensated. #4. Anemia of chronic kidney disease. Iron deficiency noted. Plan: Hemodialysis today with goal 2 L of filtration. Third treatment tomorrow. Ferrlicit 125 mg IV daily for 3 days. First dose today. Maintain Aranesp. Discontinue Lasix drip. Start Lasix 80 mg orally twice daily. Scheduled for permacath placement tomorrow. Will get case management assistant on board to help facilitate outpatient hemodialysis set up.
[2017-01-05 11:18] LABS: Glucose,Whole Blood 211 mg/dL (75-99)
--- NOTE | 2017-01-05 11:42 | P.PN ---
Subjective Principal diagnosis: CHF This is a 71-year-old female with history of chronic persistent atrial fibrillation, coronary artery disease with prior myocardial infarction, diabetes, hypertension, hyperlipidemia, chronic kidney disease stage IV, peripheral neuropathy, who was recently in the hospital in November at that time for diastolic congestive heart failure as well as a tooth abscess. Patient re- presented to the hospital with symptoms of worsening shortness of breath and is currently again being treated for diastolic congestive heart failure. She is on an IV Lasix drip which is being managed by nephrology at this time. Hemoglobin 8.5, BUN 48, creatinine 3.4. Marginal urine output. 01/04/2017 Patient seen and examined this morning,scheduled today to undergo insertion of a permacath with the plan to initiate dialysis today.patient continues to be on Lasix drip. Minimal urine output.hemoglobin 7.8, potassium 4.2, creatinine 4.01. 01/05/2017 Patient seen and examined this morning, underwent dialysis yesterday and is scheduled to undergo dialysis today. BUN 44, creatinine 3.7. Blood pressure 126/80, heart rate in the 80s. 91% on 5 L of oxygen. Now on oral Lasix. Objective - Vital Signs Vital signs: Vital Signs Temp 98.5 F 01/05/17 08:00 Pulse 104 H 01/05/17 08:42 Resp 20 01/05/17 08:00 BP 126/60 01/05/17 08:00 Pulse Ox 91 L 01/05/17 08:00 Intake & Output 01/04/17 01/05/17 01/05/17 18:59 06:59 18:59 Intake Total 420.833 120 Balance 420.833 120 Weight 101.3 kg 105.5 kg 105.5 kg Intake: IV 200 0.9 @10mls/ hr 100 Furosemide 250 mg In 100 Sodium Chloride 0.9% 225 ml @ 10 MG/HR 10 mls/hr IV .Q24H JONEL Rx#: [id number] Intake, IV Titration 220.833 Amount Furosemide 250 mg In 220.833 Sodium Chloride 0.9% 225 ml @ 10 MG/HR 10 mls/hr IV .Q24H JONEL Rx#: [id number] Oral 120 Other: Voiding Method Bedside Commode Bedside Commode Bedside Commode Diaper Diaper # Voids 1 1 - Exam PHYSICAL EXAMINATION: HEENT: Head is atraumatic, normocephalic. Pupils equal, round. Neck is supple. There is no elevated jugular venous pressure. HEART EXAMINATION: Heart S1 and S2 irregularly irregular a systolic murmur is heard CHEST EXAMINATION: On's reveal diminished air entry bilaterally with rales to the bases and expiratory wheezes heard ABDOMEN: Soft, nontender. Bowel sounds are heard. No organomegaly noted. EXTREMITIES: 2+ peripheral pulses with evidence of peripheral edema and no calf tenderness noted. NEUROLOGIC patient is awake, alert and oriented -3. . - Labs CBC & Chem 7: 01/04/17 05:42 01/05/17 09:08 Labs: Abnormal Lab Results - Last 24 Hours (Table) 01/04/17 01/04/17 01/04/17 Range/Units 05:42 16:19 21:05 Sodium (137-145) mmol/L Chloride (98-107) mmol/L BUN (7-17) mg/dL Creatinine (0.52-1.04) mg/dL Glucose (74-99) mg/dL POC Glucose (mg/dL) 205 H 148 H (75-99) mg/dL TIBC 234 L (265-497) ug/dL % Saturation 15.8 L (20-50) % 01/05/17 01/05/17 Range/Units 09:08 11:16 Sodium 136 L (137-145) mmol/L Chloride 96 L (98-107) mmol/L BUN 44 H (7-17) mg/dL Creatinine 3.70 H (0.52-1.04) mg/dL Glucose 182 H (74-99) mg/dL POC Glucose (mg/dL) 211 H (75-99) mg/dL TIBC (265-497) ug/dL % Saturation (20-50) % Assessment and Plan (1) COPD (chronic obstructive pulmonary disease) Status: Acute (2) Diastolic CHF, acute on chronic Status: Acute (3) Moderate aortic stenosis Status: Acute (4) Kidney disease, chronic, stage IV (GFR 15-29 ml/min) Status: Acute (5) HTN (hypertension) Status: Acute (6) Paroxysmal a-fib Status: Acute (7) Obesity Status: Acute (8) Hyperlipemia Status: Acute (9) Diabetes Status: Acute (10) CAD (coronary artery disease) Status: Acute Plan: From cardiology's perspective, we would recommend to continue current medications. DNP note has been reviewed, I agree with a documented findings and plan of care. Patient was seen and examined.
[2017-01-05] MEDS: SODIUM FERRIC GLUCONAT-SUCROSE 125 MG in SODIUM CHLORIDE 0.9% 100 ML IVPB SCH (12:41)
[2017-01-05 12:55] LABS: Basophils # (A) 0.1 k/uL (0-0.2); Basophils % (A) 0 %; CH 28.9; CHCM 31.2; Eosinophils # (A) 0.3 k/uL (0-0.7); Eosinophils % (A) 2 %; HCT 23.8 % (34.0-46.0); HDW 2.97; HGB 7.6 gm/dL (11.4-16.0); Hypochromasia Slight; Luc # (Auto) 0.16; Luc % (Auto) 2; Lymphocytes # (A) 1.7 k/uL (1.0-4.8); Lymphocytes % (A) 15 %; MCH 29.8 pg (25.0-35.0); MCV 93.1 fL (80.0-100.0); Mean Platelet Volume 9.7; Monocytes # (A) 0.6 k/uL (0-1.0); Monocytes % (A) 5 %; Neutrophils # (A) 8.5 k/uL (1.3-7.7); Neutrophils % (A) 76 %; RBC 2.56 m/uL (3.80-5.40); RDW 14.8 % (11.5-15.5); WBC 11.2 k/uL (3.8-10.6); WBC (Perox) 11.58
--- NOTE | 2017-01-05 13:53 | P.PN ---
Subjective This is a 71-year-old female patient of Dr. Garcia with past medical history of atrial fibrillation, coronary artery disease status post myocardial infarction, chronic heart failure, diabetes mellitus type 2, hyperlipidemia, hypertension, chronic kidney disease stage IV, peripheral neuropathy.patient was recently hospitalized at [facility] in 2016 and she was discharged on 12/29/2016 after she was treated for acute diastolic heart failure and tooth abscess for which she was started on IV antibiotic initially and subsequent she was switched to oral Augmentin and she was placed back on her Eliquis, she was given instruction to stop the Eliquis for 48 hours prior to pulling her tooth next week. Patient was doing fine up until yesterday when she developed to have an increased shortness breath and she ended up coming to the ER at [facility] again with significant shortness of breath, she was suggestive of pulmonary edema and she was quite tight in her chest she was admitted to the hospital for evaluation bipolar medicine cardiology was started on Lasix 40 mg IV push every 8 hours, pulmonary as stated earlier and cardiology consultation were obtained. 01/01: Patient remains on Lasix 40 mg IV every 12 hours. Weight is down 1.8 kg. Nebulizer helped her with breathing yesterday. She continues to have wheezing in Pulmicort added. BUN is 43 with creatinine of 2.8. Blood pressure is on the high side for which hydralazine increased to 50 mg twice daily. Repeat troponins were 0.013 and 0.079. Cardiology is on consult. 01/02: Dr. Delacruz has evaluated the patient and medication changes were made for hypertension. He has resumed her back on Procardia. Dr. Guardado has seen the patient and increase Lasix to 100 mg every 8 hours yesterday and today switched to lasix drip. Today BUN is 42 and creatinine 3.01. Patient's weight is down 0.4 kg from yesterday. She is complaining of shortness of breath, little cough and feeling tired. 01/03: Documented weight today is 2 kg higher than yesterday. Renal numbers are higher today with a BUN of 48 and creatinine 3.4. She is currently on Lasix drip. Dr. Botello is recommending dialysis. Blood pressure is better controlled today. 01/04: Patient remains on insulin drip. Her weight is up 3-1/2 kg today with minimal urine output. BUN is now 53 and creatinine 4.01 with hemoglobin 7.8. Capillary blood glucoses running in the 300s and Lantus will be increased to [address] Levy is on consult and patient underwent permacath placement right femoral artery this morning. BiPAP was required last evening. Pulse ox is now 93% on 5 L. 01/05: Lasix changed to 80 mg orally twice daily. Weight is up 4.2 kg today. Patient has been started on Aranesp. Heart rate is in the low 100s. Acute hepatitis panel was negative. She states she had an episode of chest pain last night but none at this time. Her shortness of breath is continued but is improved from yesterday. Dr. Hernandez has ordered Ferrlecit for 4 doses. Objective - Vital Signs Vital signs: Vital Signs Temp 98.5 F 01/05/17 08:00 Pulse 104 H 01/05/17 08:42 Resp 20 01/05/17 08:00 BP 126/60 01/05/17 08:00 Pulse Ox 91 L 01/05/17 08:00 Intake & Output 01/04/17 01/05/17 01/05/17 18:59 06:59 18:59 Intake Total 420.833 120 Balance 420.833 120 Weight 101.3 kg 105.5 kg Intake: IV 200 0.9 @10mls/ hr 100 Furosemide 250 mg In 100 Sodium Chloride 0.9% 225 ml @ 10 MG/HR 10 mls/hr IV .Q24H JONEL Rx#: [id number] Intake, IV Titration 220.833 Amount Furosemide 250 mg In 220.833 Sodium Chloride 0.9% 225 ml @ 10 MG/HR 10 mls/hr IV .Q24H JONEL Rx#: [id number] Oral 120 Other: Voiding Method Bedside Commode Bedside Commode Bedside Commode Diaper Diaper # Voids 1 1 - Exam General appearance: mild to moderate distress, obese - EENT Eyes: anicteric sclerae, EOMI, PERRLA, no ptosis, no scleral icterus, normal appearance ENT: hearing grossly normal, NA/AT, normal oropharynx, no thrush Ears: bilateral: normal - Neck Neck: no lymphadenopathy, normal ROM, no rigidity, no stridor, no thyromegaly Carotids: bilateral: upstroke normal Thyroid: bilateral: normal size - Respiratory Respiratory: bilateral: diminished, dullness, rales, wheezing, prolonged expiration, tachypnea negative: rhonchi - Cardiovascular Rhythm: regularly irregular Heart sounds: normal: S1, S2 Abnormal Heart Sounds: systolic murmur, no rub, S3 Gallop, no click - Gastrointestinal General gastrointestinal: normal bowel sounds, soft, no splenomegaly, no tenderness, no umbilical hernia, no ventral hernia - Integumentary Integumentary: normal, normal turgor - Neurologic Neurologic: CNII-XII intact - Musculoskeletal Musculoskeletal: generalized weakness, strength equal bilaterally - Psychiatric Psychiatric: A&O x's 3, appropriate affect, intact judgment & insight - Labs CBC & Chem 7: 01/05/17 09:08 01/05/17 09:08 Labs: Abnormal Lab Results - Last 24 Hours (Table) 01/04/17 01/04/17 01/04/17 Range/Units 05:42 11:28 16:19 POC Glucose (mg/dL) 197 H 205 H (75-99) mg/dL TIBC 234 L (265-497) ug/dL % Saturation 15.8 L (20-50) % 01/04/17 Range/Units 21:05 POC Glucose (mg/dL) 148 H (75-99) mg/dL TIBC (265-497) ug/dL % Saturation (20-50) % Assessment and Plan Plan: 1. Acute hypoxic respiratory failure secondary to acute on chronic diastolic heart failure, COPD exacerbation, moderate aortic stenosis. Lasix oral, continue oxygen support, continue patient on Imdur 30 mg orally once every day, Toprol-XL 150 mg orally once every day. Continue hydralazine now at 25 mg orally twice every day, nifedipine was resumed, Zaroxolyn. Input and output and daily weight, cardiology consultation. Patient started dialysis 2. Tooth abscess in the right lower jaw. Continue Augmentin 500 mg orally twice every day. 3. Acute kidney injury with chronic kidney disease stage IV. Lasix oral. Nephrology following. Patient started on dialysis treatment. 4. Accelerated hypertension. Continue metoprolol 100 mg orally once every day. 5. Paroxysmal atrial fibrillation. Continue amiodarone 100 mg orally once every day, Eliquis 2.5 mg orally twice every day. 6. Morbid obesity with BMI of 39. 7. Hyperkalemia secondary to chronic renal failure . Resolved. 8. Diabetes mellitus type 2 . Continue Lantus 36 units at bedtime along with a sliding scale insulin. 9. GERD. Continue omeprazole 20 mg orally once every day. 10. Hypertension, hypertensive cardiovascular disease. Continue hydralazine 25 mg orally twice every day, Toprol-XL 100 mg orally once every day discontinue nifedipine. 11. History of myocardial infarction and coronary artery disease. Continue aspirin 81 mg once every day, Toprol-XL 100 mg orally once every day, Imdur 30 mg orally once every day, Zetia 10 mg orally once every day. 12. Hyperlipidemia. 13. Diabetic peripheral neuropathy and neuropathy secondary to chronic back pain. Continue gabapentin 300 mg orally twice every day. 14. Depression, recurrent. Continue Cymbalta 60 mg orally once every day. 15. DVT prophylaxis. Continue patient on Eliquis 2.5 mg orally twice every day as well as bilateral knee-high TERRIE hose. 16. Gastrointestinal. Continue patient on PPI. 17. Anemia of chronic kidney disease. Patient has been started on Ferrlecit x4 and Aranesp. CODE STATUS Full code. Discharge plan: Most likely home with homecare Impression and plan of care have been directed as dictated by the signing physician. Jessenia Gonzalez nurse practitioner acting as scribe for signing physician.
[2017-01-05] MEDS: APIXABAN 2.5 MG TABLET PO SCH (15:56)
[2017-01-05 16:58] LABS: Glucose,Whole Blood 132 mg/dL (75-99)
[2017-01-05] MEDS: CHOLECALCIFEROL 1,000 UNIT TAB PO SCH (17:19)
[2017-01-05] MEDS: DOCUSATE 100 MG CAP PO SCH ×2 (17:19→22:33)
[2017-01-05] MEDS: DULoxetine HCL 60 MG CAPSULE.DR PO SCH (17:19)
[2017-01-05] MEDS: AMOXIC-POT CLAV 500-125 MG 1 EACH TAB PO SCH ×2 (17:19→22:33)
[2017-01-05] MEDS: EZETIMIBE 10 MG TAB PO SCH (17:19)
[2017-01-05] MEDS: GABAPENTIN 300 MG CAP PO SCH ×2 (17:20→22:33)
[2017-01-05] MEDS: ISOSORBIDE MONONITRATE ER 30 MG TAB.ER.24H PO SCH (17:21)
[2017-01-05] MEDS: LORATADINE 10 MG TAB PO SCH (17:21)
[2017-01-05] MEDS: hydrALAZINE HCL 25 MG TAB PO SCH ×2 (17:21→22:33)
[2017-01-05] MEDS: METOLAZONE 5 MG TAB PO SCH (17:21)
[2017-01-05] MEDS: METOPROLOL SUCCINATE (ER) 50 MG TAB.ER.24H PO SCH (17:22)
[2017-01-05] MEDS: FUROSEMIDE 80 MG TAB PO SCH (18:47)
[2017-01-05 19:22] LABS: Glucose,Whole Blood 255 mg/dL (75-99)
[2017-01-05] MEDS: ALPRAZolam 0.25 MG TAB PO PRN (20:41)
[2017-01-05 21:03] LABS: Glucose,Whole Blood 219 mg/dL (75-99)
[2017-01-05] MEDS ORDERED: HEPARIN SODIUM,PORCINE 5,000 UNIT/ML 1 ML VIAL IV PRN (21:06)
[2017-01-05] MEDS ORDERED: HEPARIN SODIUM,PORCINE 5,000 UNIT/ML 1 ML VIAL IV ONE (21:06)
[2017-01-05 21:40] LABS: Basophils % (A) 0 %; CH 30.3; CHCM 32.9; Eosinophils # (A) 0.1 k/uL (0-0.7); Eosinophils % (A) 2 %; HCT 22.9 % (34.0-46.0); HDW 3.02; HGB 7.4 gm/dL (11.4-16.0); Luc # (Auto) 0.11; Luc % (Auto) 1; Lymphocytes # (A) 1.1 k/uL (1.0-4.8); Lymphocytes % (A) 12 %; MCH 29.8 pg (25.0-35.0); MCHC 32.2 g/dL (31.0-37.0); MCV 92.6 fL (80.0-100.0); Mean Platelet Volume 9.7; Monocytes # (A) 0.4 k/uL (0-1.0); Monocytes % (A) 5 %; Neutrophils # (A) 7.4 k/uL (1.3-7.7); Neutrophils % (A) 81 %; RBC 2.48 m/uL (3.80-5.40); RDW 15.7 % (11.5-15.5); WBC 9.2 k/uL (3.8-10.6); WBC (Perox) 9.95
[2017-01-05 21:49] LABS: INR 1.1 (<1.2); Partial Thromboplastin Time 30.7 sec (22.0-30.0)
--- NOTE | 2017-01-05 21:54 | XR ---
EXAMINATION TYPE: XR chest 1V DATE OF EXAM: 01/05/2017 COMPARISON: 12/31/2016 HISTORY: Dyspnea TECHNIQUE: AP upright portable FINDINGS: Since the previous study there is a new pattern throughout the lungs, a fine reticular ele cheryl of increased density which silhouettes the pulmonary vasculature to a moderate degree, consistent with moderate interstitial phase pulmonary edema. Mild-moderately enlarged cardiac silhouette is redemonstrated. There is no pneumothorax. No abnormal gas collections evident. IMPRESSION: MODERATE INTERSTITIAL PHASE PULMONARY EDEMA.
[2017-01-05] MEDS: ASPIRIN 81 MG PO SCH (22:30)
[2017-01-05] MEDS: INSULIN GLARGINE 100 UNIT/ML 10 ML VIAL SQ SCH (22:45)
[2017-01-05] MEDS: HEPARIN SODIUM,PORCINE/D5W PMX 25,000 UNIT in DEXTROSE/WATER 1 500ML.BAG IV SCH (22:48)
[2017-01-06] MEDS: MAGNESIUM OXIDE 400 MG TAB PO SCH ×2 (00:49→20:28)
[2017-01-06 03:06] LABS: Basophils # (A) 0.1 k/uL (0-0.2); Basophils % (A) 1 %; CH 28.9; CHCM 31.8; Eosinophils # (A) 0.1 k/uL (0-0.7); Eosinophils % (A) 1 %; HCT 22.7 % (34.0-46.0); HDW 3.06; HGB 7.4 gm/dL (11.4-16.0); Hypochromasia Slight; Luc # (Auto) 0.21; Luc % (Auto) 2; Lymphocytes # (A) 1.6 k/uL (1.0-4.8); Lymphocytes % (A) 16 %; MCH 29.8 pg (25.0-35.0); MCHC 32.7 g/dL (31.0-37.0); MCV 91.1 fL (80.0-100.0); Mean Platelet Volume 9.5; Monocytes # (A) 0.7 k/uL (0-1.0); Monocytes % (A) 7 %; Neutrophils # (A) 7.7 k/uL (1.3-7.7); Neutrophils % (A) 74 %; RBC 2.49 m/uL (3.80-5.40); RDW 15.1 % (11.5-15.5); WBC 10.5 k/uL (3.8-10.6)
[2017-01-06 03:14] LABS: Calcium 8.6 mg/dL (8.4-10.2); Potassium 3.7 mmol/L (3.5-5.1)
[2017-01-06 06:04] LABS: Glucose,Whole Blood 126 mg/dL (75-99)
[2017-01-06] MEDS: INSULIN LISPRO (humaLOG) 300 UNIT/3 ML VIAL SQ SCH ×4 (06:36→21:27)
[2017-01-06] MEDS: PANTOPRAZOLE 40 MG TABLET PO SCH (06:57)
[2017-01-06] MEDS: BUDESONIDE 1 MG/2 ML NEBU INHALATION SCH ×2 (07:11→19:48)
[2017-01-06] MEDS: IPRATROPIUM-ALBUTEROL 3 ML NEB INHALATION PRN ×3 (07:11→19:49)
[2017-01-06] MEDS: DULoxetine HCL 60 MG CAPSULE.DR PO SCH (08:16)
[2017-01-06] MEDS: DOCUSATE 100 MG CAP PO SCH ×2 (08:16→20:28)
[2017-01-06] MEDS: AMOXIC-POT CLAV 500-125 MG 1 EACH TAB PO SCH ×2 (08:16→20:28)
[2017-01-06] MEDS: CHOLECALCIFEROL 1,000 UNIT TAB PO SCH (08:16)
[2017-01-06] MEDS: hydrALAZINE HCL 25 MG TAB PO SCH ×2 (08:17→20:28)
[2017-01-06] MEDS: FUROSEMIDE 80 MG TAB PO SCH ×2 (08:17→17:04)
[2017-01-06] MEDS: GABAPENTIN 300 MG CAP PO SCH ×2 (08:17→20:28)
[2017-01-06] MEDS: EZETIMIBE 10 MG TAB PO SCH (08:17)
[2017-01-06] MEDS: METOLAZONE 5 MG TAB PO SCH (08:18)
[2017-01-06] MEDS: ISOSORBIDE MONONITRATE ER 30 MG TAB.ER.24H PO SCH (08:18)
[2017-01-06] MEDS: LORATADINE 10 MG TAB PO SCH (08:18)
[2017-01-06] MEDS: METOPROLOL SUCCINATE (ER) 50 MG TAB.ER.24H PO SCH (08:19)
[2017-01-06] MEDS ORDERED: SODIUM FERRIC GLUCONAT-SUCROSE 125 MG in SODIUM CHLORIDE 0.9% 100 ML IVPB SCH (09:00)
[2017-01-06] MEDS: ALPRAZolam 0.25 MG TAB PO PRN ×2 (10:30→21:27)
[2017-01-06] MEDS: APIXABAN 2.5 MG TABLET PO SCH (11:20)
[2017-01-06 11:36] LABS: Glucose,Whole Blood 166 mg/dL (75-99)
[2017-01-06] MEDS ORDERED: HEPARIN SODIUM,PORCINE 5,000 UNIT/ML 1 ML VIAL ONE (13:30)
--- NOTE | 2017-01-06 14:22 | P.PN ---
Subjective Principal diagnosis: CHF This is a 71-year-old female with history of chronic persistent atrial fibrillation, coronary artery disease with prior myocardial infarction, diabetes, hypertension, hyperlipidemia, chronic kidney disease stage IV, peripheral neuropathy, who was recently in the hospital in November at that time for diastolic congestive heart failure as well as a tooth abscess. Patient re- presented to the hospital with symptoms of worsening shortness of breath and is currently again being treated for diastolic congestive heart failure. She underwent permacath placement and was initiated on dialysis. She was dialyzed yesterday for 2.5 L and today trying for 3 L however patient has been having issues of low blood pressure. Labs today show BUN of 30 and creatinine 3.2. According to documentation, patient's weight is down 2.5 kg since yesterday. On examination, patient is being dialyzed. Her blood pressure is currently well and adjustments are being made. Objective - Vital Signs Vital signs: Vital Signs Temp 97.8 F 01/06/17 11:41 Pulse 83 01/06/17 11:42 Resp 18 01/06/17 11:41 BP 144/67 01/06/17 11:41 Pulse Ox 92 L 01/06/17 11:41 Intake & Output 01/05/17 01/06/17 01/06/17 18:59 06:59 18:59 Intake Total 120 272.176 Balance 120 272.176 Weight 105.5 kg 102 kg Intake: IV 100 Heparin Sodium,Porcine/ 100 D5w Pmx 25,000 unit In Dextrose/Water 1 500ml. bag @ 20 mls/hr IV .Q24H JONEL Rx#:[id number] Intake, IV Titration 172.176 Amount Heparin Sodium,Porcine/ 172.176 D5w Pmx 25,000 unit In Dextrose/Water 1 500ml. bag @ 20 mls/hr IV .Q24H JONEL Rx#:[id number] Oral 120 Other: Voiding Method Bedside Commode Bedside Commode Bedside Commode Diaper Diaper Diaper # Voids 1 1 - Exam PHYSICAL EXAMINATION: HEENT: Head is atraumatic, normocephalic. Pupils equal, round. Neck is supple. There is no elevated jugular venous pressure. HEART EXAMINATION: Heart S1 and S2 irregularly irregular a systolic murmur is heard CHEST EXAMINATION: On's reveal diminished air entry bilaterally with rales to the bases and expiratory wheezes heard ABDOMEN: Soft, nontender. Bowel sounds are heard. No organomegaly noted. EXTREMITIES: 2+ peripheral pulses with evidence of peripheral edema and no calf tenderness noted. NEUROLOGIC patient is awake, alert and oriented x3. - Labs CBC & Chem 7: 01/06/17 02:50 01/06/17 02:50 Labs: Abnormal Lab Results - Last 24 Hours (Table) 01/05/17 01/05/17 01/05/17 Range/Units 16:55 19:18 21:01 RBC (3.80-5.40) m/uL Hgb (11.4-16.0) gm/dL Hct (34.0-46.0) % RDW (11.5-15.5) % APTT (22.0-30.0) sec Chloride (98-107) mmol/L Carbon Dioxide (22-30) mmol/L BUN (7-17) mg/dL Creatinine (0.52-1.04) mg/dL Glucose (74-99) mg/dL POC Glucose (mg/dL) 132 H 255 H 219 H (75-99) mg/dL 01/05/17 01/05/17 01/06/17 Range/Units 21:20 21:20 02:50 RBC 2.48 L (3.80-5.40) m/uL Hgb 7.4 L (11.4-16.0) gm/dL Hct 22.9 L (34.0-46.0) % RDW 15.7 H (11.5-15.5) % APTT 30.7 H (22.0-30.0) sec Chloride 96 L (98-107) mmol/L Carbon Dioxide 32 H (22-30) mmol/L BUN 30 H (7-17) mg/dL Creatinine 3.20 H (0.52-1.04) mg/dL Glucose 131 H (74-99) mg/dL POC Glucose (mg/dL) (75-99) mg/dL 01/06/17 01/06/17 01/06/17 Range/Units 02:50 02:50 06:02 RBC 2.49 L (3.80-5.40) m/uL Hgb 7.4 L (11.4-16.0) gm/dL Hct 22.7 L (34.0-46.0) % RDW (11.5-15.5) % APTT 48.3 H (22.0-30.0) sec Chloride (98-107) mmol/L Carbon Dioxide (22-30) mmol/L BUN (7-17) mg/dL Creatinine (0.52-1.04) mg/dL Glucose (74-99) mg/dL POC Glucose (mg/dL) 126 H (75-99) mg/dL 01/06/17 Range/Units 11:34 RBC (3.80-5.40) m/uL Hgb (11.4-16.0) gm/dL Hct (34.0-46.0) % RDW (11.5-15.5) % APTT (22.0-30.0) sec Chloride (98-107) mmol/L Carbon Dioxide (22-30) mmol/L BUN (7-17) mg/dL Creatinine (0.52-1.04) mg/dL Glucose (74-99) mg/dL POC Glucose (mg/dL) 166 H (75-99) mg/dL Assessment and Plan Plan: Assessment and plan #1 COPD #2 acute on chronic diastolic congestive heart failure #3 stage IV kidney disease, currently being dialyzed #4 hypertension #5 paroxysmal atrial fibrillation #6 hyperlipidemia #7 diabetes #8 obesity #9 CAD From home care manager rn perspective, medications are reviewed we'll continue the same. We'll continue to follow the patient during this admission and provide further recommendations accordingly. The above dictated assessment and findings were discussed with signing physician. The impression and plan of care have been directed as dictated. Jocelyn Crandall, Nurse Practitioner, acting as scribe for signing physician.
--- NOTE | 2017-01-06 15:14 | P.PN ---
Subjective This is a 71-year-old female patient of Dr. Garcia with past medical history of atrial fibrillation, coronary artery disease status post myocardial infarction, chronic heart failure, diabetes mellitus type 2, hyperlipidemia, hypertension, chronic kidney disease stage IV, peripheral neuropathy.patient was recently hospitalized at [facility] in 2016 and she was discharged on 12/29/2016 after she was treated for acute diastolic heart failure and tooth abscess for which she was started on IV antibiotic initially and subsequent she was switched to oral Augmentin and she was placed back on her Eliquis, she was given instruction to stop the Eliquis for 48 hours prior to pulling her tooth next week. Patient was doing fine up until yesterday when she developed to have an increased shortness breath and she ended up coming to the ER at [facility] again with significant shortness of breath, she was suggestive of pulmonary edema and she was quite tight in her chest she was admitted to the hospital for evaluation bipolar medicine cardiology was started on Lasix 40 mg IV push every 8 hours, pulmonary as stated earlier and cardiology consultation were obtained. 01/01: Patient remains on Lasix 40 mg IV every 12 hours. Weight is down 1.8 kg. Nebulizer helped her with breathing yesterday. She continues to have wheezing in Pulmicort added. BUN is 43 with creatinine of 2.8. Blood pressure is on the high side for which hydralazine increased to 50 mg twice daily. Repeat troponins were 0.013 and 0.079. Cardiology is on consult. 01/02: Dr. Delacruz has evaluated the patient and medication changes were made for hypertension. He has resumed her back on Procardia. Dr. Guardado has seen the patient and increase Lasix to 100 mg every 8 hours yesterday and today switched to lasix drip. Today BUN is 42 and creatinine 3.01. Patient's weight is down 0.4 kg from yesterday. She is complaining of shortness of breath, little cough and feeling tired. 01/03: Documented weight today is 2 kg higher than yesterday. Renal numbers are higher today with a BUN of 48 and creatinine 3.4. She is currently on Lasix drip. Dr. Botello is recommending dialysis. Blood pressure is better controlled today. 01/04: Patient remains on insulin drip. Her weight is up 3-1/2 kg today with minimal urine output. BUN is now 53 and creatinine 4.01 with hemoglobin 7.8. Capillary blood glucoses running in the 300s and Lantus will be increased to [address] Levy is on consult and patient underwent permacath placement right femoral artery this morning. BiPAP was required last evening. Pulse ox is now 93% on 5 L. 01/05: Lasix changed to 80 mg orally twice daily. Weight is up 4.2 kg today. Patient has been started on Aranesp. Heart rate is in the low 100s. Acute hepatitis panel was negative. She states she had an episode of chest pain last night but none at this time. Her shortness of breath is continued but is improved from yesterday. Dr. Hernandez has ordered Ferrlecit for 4 doses. 01/06 . Patient's currently on dialysis regimen today, 2-3 L would be taken out today to dialysis, patient's mentation fluctuates however she is more lucid side , sleep is still broken, melatonin would be started today. Last night she had gone into respiratory distress, additional Lasix was given 80 mg, and required BiPAP treatments with improvement of dyspnea Objective - Vital Signs Vital signs: Vital Signs Temp 97.8 F 01/06/17 11:41 Pulse 83 01/06/17 11:42 Resp 18 01/06/17 11:41 BP 144/67 01/06/17 11:41 Pulse Ox 92 L 01/06/17 11:41 Intake & Output 01/05/17 01/06/17 01/06/17 18:59 06:59 18:59 Intake Total 120 272.176 360 Balance 120 272.176 360 Weight 105.5 kg 102 kg Intake: IV 100 360 0.9 @10mls/ hr 160 Heparin Sodium,Porcine/ 100 200 D5w Pmx 25,000 unit In Dextrose/Water 1 500ml. bag @ 20 mls/hr IV .Q24H JONEL Rx#:[id number] Intake, IV Titration 172.176 Amount Heparin Sodium,Porcine/ 172.176 D5w Pmx 25,000 unit In Dextrose/Water 1 500ml. bag @ 20 mls/hr IV .Q24H JONEL Rx#:[id number] Oral 120 Other: Voiding Method Bedside Commode Bedside Commode Bedside Commode Diaper Diaper Diaper # Voids 1 1 - Constitutional General appearance: Present: average body habitus, cooperative, no acute distress - EENT Eyes: Present: anicteric sclerae, dentition normal, normal appearance ENT: Present: NA/AT, normal oropharynx - Neck Neck: Present: normal ROM - Respiratory Respiratory: bilateral: diminished, rales, negative: CTA, dullness, rhonchi - Cardiovascular Rhythm: regular Heart sounds: normal: S1 Abnormal Heart Sounds: Absent: systolic murmur, diastolic murmur, rub, S3 Gallop , S4 Gallop, click, other - Gastrointestinal General gastrointestinal: Present: normal bowel sounds, soft - Integumentary Integumentary: Present: decreased turgor, normal - Neurologic Neurologic: Present: CNII-XII intact - Musculoskeletal Musculoskeletal: Present: generalized weakness, strength equal bilaterally - Psychiatric Psychiatric: Present: A&O x's 3, appropriate affect, intact judgment & insight - Labs CBC & Chem 7: 01/06/17 02:50 01/06/17 02:50 Labs: Abnormal Lab Results - Last 24 Hours (Table) 01/05/17 01/05/17 01/05/17 Range/Units 16:55 19:18 21:01 RBC (3.80-5.40) m/uL Hgb (11.4-16.0) gm/dL Hct (34.0-46.0) % RDW (11.5-15.5) % APTT (22.0-30.0) sec Chloride (98-107) mmol/L Carbon Dioxide (22-30) mmol/L BUN (7-17) mg/dL Creatinine (0.52-1.04) mg/dL Glucose (74-99) mg/dL POC Glucose (mg/dL) 132 H 255 H 219 H (75-99) mg/dL 01/05/17 01/05/17 01/06/17 Range/Units 21:20 21:20 02:50 RBC 2.48 L (3.80-5.40) m/uL Hgb 7.4 L (11.4-16.0) gm/dL Hct 22.9 L (34.0-46.0) % RDW 15.7 H (11.5-15.5) % APTT 30.7 H (22.0-30.0) sec Chloride 96 L (98-107) mmol/L Carbon Dioxide 32 H (22-30) mmol/L BUN 30 H (7-17) mg/dL Creatinine 3.20 H (0.52-1.04) mg/dL Glucose 131 H (74-99) mg/dL POC Glucose (mg/dL) (75-99) mg/dL 01/06/17 01/06/17 01/06/17 Range/Units 02:50 02:50 06:02 RBC 2.49 L (3.80-5.40) m/uL Hgb 7.4 L (11.4-16.0) gm/dL Hct 22.7 L (34.0-46.0) % RDW (11.5-15.5) % APTT 48.3 H (22.0-30.0) sec Chloride (98-107) mmol/L Carbon Dioxide (22-30) mmol/L BUN (7-17) mg/dL Creatinine (0.52-1.04) mg/dL Glucose (74-99) mg/dL POC Glucose (mg/dL) 126 H (75-99) mg/dL 01/06/17 Range/Units 11:34 RBC (3.80-5.40) m/uL Hgb (11.4-16.0) gm/dL Hct (34.0-46.0) % RDW (11.5-15.5) % APTT (22.0-30.0) sec Chloride (98-107) mmol/L Carbon Dioxide (22-30) mmol/L BUN (7-17) mg/dL Creatinine (0.52-1.04) mg/dL Glucose (74-99) mg/dL POC Glucose (mg/dL) 166 H (75-99) mg/dL Assessment and Plan Plan: 1. Acute hypoxic respiratory failure secondary to acute on chronic diastolic heart failure, COPD exacerbation, moderate aortic stenosis. Lasix oral, continue oxygen support, continue patient on Imdur 30 mg orally once every day, Toprol-XL 150 mg orally once every day. Continue hydralazine now at 25 mg orally twice every day, nifedipine was resumed, Zaroxolyn. Input and output and daily weight, cardiology consultation. Patient started dialysis 2. Tooth abscess in the right lower jaw. Continue Augmentin 500 mg orally twice every day. 3. Acute kidney injury with chronic kidney disease stage IV. Lasix oral. Nephrology following. Patient started on dialysis treatment. 4. Accelerated hypertension. Continue metoprolol 100 mg orally once every day. 5. Paroxysmal atrial fibrillation. Continue amiodarone 100 mg orally once every day, Eliquis 2.5 mg orally twice every day. 6. Morbid obesity with BMI of 39. 7. Hyperkalemia secondary to chronic renal failure . Resolved. 8. Diabetes mellitus type 2 . Continue Lantus 36 units at bedtime along with a sliding scale insulin. 9. GERD. Continue omeprazole 20 mg orally once every day. 10. Hypertension, hypertensive cardiovascular disease. Continue hydralazine 25 mg orally twice every day, Toprol-XL 100 mg orally once every day discontinue nifedipine. 11. History of myocardial infarction and coronary artery disease. Continue aspirin 81 mg once every day, Toprol-XL 100 mg orally once every day, Imdur 30 mg orally once every day, Zetia 10 mg orally once every day. 12. Hyperlipidemia. 13. Diabetic peripheral neuropathy and neuropathy secondary to chronic back pain. Continue gabapentin 300 mg orally twice every day. 14. Depression, recurrent. Continue Cymbalta 60 mg orally once every day. 15. DVT prophylaxis. Continue patient on Eliquis 2.5 mg orally twice every day as well as bilateral knee-high TERRIE hose. 16. Gastrointestinal. Continue patient on PPI. 17. Anemia of chronic kidney disease. Patient has been started on Ferrlecit x4 and Aranesp. CODE STATUS Full code. Discharge plan: Most likely home with homecar
[2017-01-06 16:53] LABS: Glucose,Whole Blood 233 mg/dL (75-99)
[2017-01-06] MEDS: SODIUM FERRIC GLUCONAT-SUCROSE 125 MG in SODIUM CHLORIDE 0.9% 100 ML IVPB SCH (17:04)
[2017-01-06] MEDS: HEPARIN SODIUM,PORCINE/D5W PMX 25,000 UNIT in DEXTROSE/WATER 1 500ML.BAG IV SCH (17:04)
[2017-01-06] MEDS: ASPIRIN 81 MG PO SCH (20:27)
[2017-01-06] MEDS: MELATONIN 5 MG TABLET PO SCH (20:29)
[2017-01-06 20:57] LABS: Glucose,Whole Blood 216 mg/dL (75-99)
[2017-01-06] MEDS: INSULIN GLARGINE 100 UNIT/ML 10 ML VIAL SQ SCH (21:27)
[2017-01-07 06:32] LABS: Basophils # (A) 0.1 k/uL (0-0.2); Basophils % (A) 1 %; CH 28.8; CHCM 31.1; Eosinophils # (A) 0.5 k/uL (0-0.7); Eosinophils % (A) 4 %; HCT 22.7 % (34.0-46.0); HDW 3.07; HGB 7.2 gm/dL (11.4-16.0); Hypochromasia Moderate; Luc # (Auto) 0.22; Luc % (Auto) 2; Lymphocytes % (A) 17 %; MCH 29.7 pg (25.0-35.0); MCHC 31.9 g/dL (31.0-37.0); MCV 93.3 fL (80.0-100.0); Mean Platelet Volume 9.3; Monocytes # (A) 0.7 k/uL (0-1.0); Monocytes % (A) 6 %; Neutrophils # (A) 8.7 k/uL (1.3-7.7); Neutrophils % (A) 71 %; RBC 2.43 m/uL (3.80-5.40); RDW 15.3 % (11.5-15.5); WBC 12.2 k/uL (3.8-10.6); WBC (Perox) 12.89
[2017-01-07 06:33] LABS: Glucose,Whole Blood 109 mg/dL (75-99)
[2017-01-07] MEDS: PANTOPRAZOLE 40 MG TABLET PO SCH (06:38)
[2017-01-07] MEDS: INSULIN LISPRO (humaLOG) 300 UNIT/3 ML VIAL SQ SCH ×4 (06:38→21:51)
[2017-01-07 06:52] LABS: Calcium 8.9 mg/dL (8.4-10.2); Potassium 3.9 mmol/L (3.5-5.1)
[2017-01-07] MEDS: BUDESONIDE 1 MG/2 ML NEBU INHALATION SCH ×2 (07:43→21:07)
[2017-01-07] MEDS: IPRATROPIUM-ALBUTEROL 3 ML NEB INHALATION PRN ×3 (07:43→21:07)
[2017-01-07] MEDS ORDERED: LIDOCAINE 1% INJ 10MG/ML (20 ML MDV) SQ ONE (07:55)
[2017-01-07] MEDS ORDERED: SODIUM CHLORIDE 0.9% 500 ML IV ONE (08:14)
[2017-01-07] MEDS ORDERED: MIDAZOLAM 2 MG/2 ML VIAL IV ONE (08:25)
[2017-01-07] MEDS ORDERED: LIDOCAINE 2% INJ 20 MG/ML SQ ONE (08:29)
--- NOTE | 2017-01-07 09:13 | P.PCN ---
Preoperative Diagnosis: Postoperative Diagnosis: Procedure(s) Performed: Implants: Indications for Procedure: Operative Findings: Description of Procedure: Preoperative diagnoses is acute chronic renal failure Procedure #1 ultrasound-guided right internal jugular vein access with micropuncture needle #2 superior venacavogram with 3 placement of a 28 cm dialysis catheter right internal jugular approach ultrasound guided number for easy removal of the dialysis catheter right femoral approach Procedure this patient brought to the [facility] she had a dialysis catheter placed in the right femoral vein, this patient had a right IJ catheter placed in the past ultrasound-guided right IJ was accessed micropuncture guidewire was passed and could not advance the micropuncture guidewire into the vena cava passed a 4-Turkish dilator. A venacavogram was performed there was no hemodynamic stenosis noted under fluoroscopy we could advance the guidewire superior vena cava after that a tendon was created through the terminal be passed 28 cm dialysis catheter to the neck area after that we passed a dilator on the top of the guidewire. Then we passed a sheath on the top of the guidewire under fluoroscopy control 28 same dialysis catheter advanced through the sheath. Sheath was removed and checked tip of the catheter was at superior vena cava and atrium flushed with heparin and secured with Vicryl and and nylon. Dressing was applied Right groin was prepped and 1% lidocaine were infiltrated at the exit site of the catheter suture were removed and temporary catheter was removed pressure was held patient started the procedure well patient transferred to recovery room in satisfactory condition
[2017-01-07] MEDS: HEPARIN SODIUM 1,000 UN/ML (10ML VL) MISCELLANE ONE ×2 (09:21→09:22)
[2017-01-07] MEDS ORDERED: IODIXANOL 270 MG/ML 50 ML ML INTRAARTER ONE (09:21)
--- NOTE | 2017-01-07 09:42 | IR ---
Fluoroscopy HISTORY: Pain 1.8 minutes fluoroscopy time supplied to the referring clinician. 251 intraoperative C-arm images do cument the procedure. See dictated report from vascular surgery.
--- NOTE | 2017-01-07 09:42 | PN ---
PROGRESS NOTE The patient is seen for followup. DATE OF SERVICE: Is from today 01/06/2017. The patient is seen for followup for end-stage renal disease. She was started on dialysis this admission. The patient is currently seen on dialysis. She is tolerating her treatment well. PHYSICAL EXAMINATION: On examination, blood pressure is 144/67, heart rate 83 per minute patient is afebrile. Examination of the heart S1, S2. Examination lungs decreased breath sounds at bases. Abdomen is soft, nontender. There have been issues with the right femoral Jay catheter. It has not been working well. However, patient has been able to get about 2- 2.5 L off with each treatment so far. On examination today, blood pressure was 134/60 early this morning. On the machine right now she is 90/60. Patient is afebrile. Heart rate about 83 per minute. Examination of the heart S1-S2. Examination of the lungs bilateral breath sounds are heard. Abdomen is soft, nontender, obese. Examination of lower extremities showed no evidence of edema. LABS: Revealed a serum potassium 3.7, sodium 137. Hemoglobin was 7.4 g/dL. ASSESSMENT: 1. End-stage renal disease, recently started on dialysis. This is her third treatment. The plan is to switch to an IJ PermCath hopefully today or tomorrow. 2. Fluid overload with diastolic heart failure, currently improved. Patient's Lasix drip is discontinued and she is maintained on Lasix 80 mg p.o. b.i.d. 3. Anemia with evidence of iron deficiency, maintained on IV iron and Aranesp. 4. Coronary artery disease and/cardiomyopathy. PLAN: Hemodialysis today. Goal UF of about 1.5 L as patient's blood pressure dropped drop slightly while on treatment. Her next treatment will be planned for on Monday via new catheter. MMODL / IJN: [id number] /
--- NOTE | 2017-01-07 09:56 | XR ---
EXAMINATION TYPE: XR chest 1V portable DATE OF EXAM: 01/07/2017 HISTORY: Catheter placement. REFERENCE: Previous study dated 01/05/2017. FINDINGS: There is metallic reinier fixation of the lower thoracic and lumbar spine. There has been interval placement of a large-bore, double-lumen catheter via a right internal jugular approach. Its tip is in the right atrium. I do not see evidence of pneumothorax. The heart is enlarged. There is improvement in the patient's vascular status. There continues to be s ome left basilar airspace disease. I cannot exclude a small left effusion. IMPRESSION: 1. SATISFACTORY PLACEMENT OF THE PATIENT'S LARGE-BORE, DOUBLE-LUMEN CATHETER. 2. MILD CARDIOMEGALY. 3. LEFT BASILAR AIRSPACE DISEASE. 4. I CANNOT EXCLUDE A SMALL, LEFT PLEURAL EFFUSION.
[2017-01-07] MEDS: CHOLECALCIFEROL 1,000 UNIT TAB PO SCH (11:07)
[2017-01-07] MEDS: hydrALAZINE HCL 25 MG TAB PO SCH ×2 (11:07→21:50)
[2017-01-07] MEDS: LORATADINE 10 MG TAB PO SCH (11:07)
[2017-01-07] MEDS: METOPROLOL SUCCINATE (ER) 50 MG TAB.ER.24H PO SCH (11:07)
[2017-01-07] MEDS: FUROSEMIDE 80 MG TAB PO SCH ×2 (11:08→16:55)
[2017-01-07] MEDS: DULoxetine HCL 60 MG CAPSULE.DR PO SCH (11:08)
[2017-01-07] MEDS: METOLAZONE 5 MG TAB PO SCH (11:08)
[2017-01-07] MEDS: DOCUSATE 100 MG CAP PO SCH ×2 (11:09→21:51)
[2017-01-07] MEDS: GABAPENTIN 300 MG CAP PO SCH ×2 (11:09→21:51)
[2017-01-07] MEDS: AMOXIC-POT CLAV 500-125 MG 1 EACH TAB PO SCH ×2 (11:09→21:50)
[2017-01-07] MEDS: ISOSORBIDE MONONITRATE ER 30 MG TAB.ER.24H PO SCH (11:10)
[2017-01-07] MEDS: EZETIMIBE 10 MG TAB PO SCH (11:10)
[2017-01-07 12:23] LABS: Glucose,Whole Blood 130 mg/dL (75-99)
[2017-01-07] MEDS: SODIUM FERRIC GLUCONAT-SUCROSE 125 MG in SODIUM CHLORIDE 0.9% 100 ML IVPB SCH (14:54)
--- NOTE | 2017-01-07 15:46 | P.PN ---
Subjective This is a 71-year-old female patient of Dr. Garcia with past medical history of atrial fibrillation, coronary artery disease status post myocardial infarction, chronic heart failure, diabetes mellitus type 2, hyperlipidemia, hypertension, chronic kidney disease stage IV, peripheral neuropathy.patient was recently hospitalized at [facility] in 2016 and she was discharged on 12/29/2016 after she was treated for acute diastolic heart failure and tooth abscess for which she was started on IV antibiotic initially and subsequent she was switched to oral Augmentin and she was placed back on her Eliquis, she was given instruction to stop the Eliquis for 48 hours prior to pulling her tooth next week. Patient was doing fine up until yesterday when she developed to have an increased shortness breath and she ended up coming to the ER at [facility] again with significant shortness of breath, she was suggestive of pulmonary edema and she was quite tight in her chest she was admitted to the hospital for evaluation bipolar medicine cardiology was started on Lasix 40 mg IV push every 8 hours, pulmonary as stated earlier and cardiology consultation were obtained. 01/01: Patient remains on Lasix 40 mg IV every 12 hours. Weight is down 1.8 kg. Nebulizer helped her with breathing yesterday. She continues to have wheezing in Pulmicort added. BUN is 43 with creatinine of 2.8. Blood pressure is on the high side for which hydralazine increased to 50 mg twice daily. Repeat troponins were 0.013 and 0.079. Cardiology is on consult. 01/02: Dr. Delacruz has evaluated the patient and medication changes were made for hypertension. He has resumed her back on Procardia. Dr. Guardado has seen the patient and increase Lasix to 100 mg every 8 hours yesterday and today switched to lasix drip. Today BUN is 42 and creatinine 3.01. Patient's weight is down 0.4 kg from yesterday. She is complaining of shortness of breath, little cough and feeling tired. 01/03: Documented weight today is 2 kg higher than yesterday. Renal numbers are higher today with a BUN of 48 and creatinine 3.4. She is currently on Lasix drip. Dr. Botello is recommending dialysis. Blood pressure is better controlled today. 01/04: Patient remains on insulin drip. Her weight is up 3-1/2 kg today with minimal urine output. BUN is now 53 and creatinine 4.01 with hemoglobin 7.8. Capillary blood glucoses running in the 300s and Lantus will be increased to [address] Levy is on consult and patient underwent permacath placement right femoral artery this morning. BiPAP was required last evening. Pulse ox is now 93% on 5 L. 01/05: Lasix changed to 80 mg orally twice daily. Weight is up 4.2 kg today. Patient has been started on Aranesp. Heart rate is in the low 100s. Acute hepatitis panel was negative. She states she had an episode of chest pain last night but none at this time. Her shortness of breath is continued but is improved from yesterday. Dr. Hernandez has ordered Ferrlecit for 4 doses. 01/06 . Patient's currently on dialysis regimen today, 2-3 L would be taken out today to dialysis, patient's mentation fluctuates however she is more lucid side , sleep is still broken, melatonin would be started today. Last night she had gone into respiratory distress, additional Lasix was given 80 mg, and required BiPAP treatments with improvement of dyspnea 01/07: Patient currently is resting without any complaints, no shortness of breath and difficulty breathing she is however breathing easily, no events overnight, vitals are stable hemodialysis catheter for permanent placement performed yesterday from by Dr. Levy. Xanax has helped with some situational anxiety. CARLOS EDUARDO Peralta will be restarted today. IV heparin would be discontinued Objective - Vital Signs Vital signs: Vital Signs Temp 97.2 F L 01/07/17 11:38 Pulse 74 01/07/17 11:38 Resp 17 01/07/17 11:38 BP 140/63 01/07/17 11:38 Pulse Ox 96 01/07/17 11:38 Intake & Output 01/06/17 01/07/17 01/07/17 18:59 06:59 18:59 Intake Total 986.336 50 Balance 986.336 50 Weight 102.5 kg Intake: IV 360 50 0.9 @10mls/ hr 160 Heparin Sodium,Porcine/ 200 D5w Pmx 25,000 unit In Dextrose/Water 1 500ml. bag @ 20 mls/hr IV .Q24H [facility] Rx#:[id number] Intake, IV Titration 290.336 Amount Heparin Sodium,Porcine/ 290.336 D5w Pmx 25,000 unit In Dextrose/Water 1 500ml. bag @ 20 mls/hr IV .Q24H [facility] Rx#:[id number] Oral 336 Other: Voiding Method Bedside Commode Bedside Commode Bedside Commode Diaper Diaper Diaper # Voids 0 - Constitutional General appearance: Present: cooperative, no acute distress - EENT Eyes: Present: anicteric sclerae, dentition normal, normal appearance ENT: Present: hard of hearing, NA/AT, normal oropharynx - Neck Neck: Present: normal ROM - Respiratory Respiratory: bilateral: CTA, diminished, negative: prolonged expiration, prolonged inspiration - Cardiovascular Rhythm: regular Heart sounds: normal: S1, S2 Abnormal Heart Sounds: Present: systolic murmur. Absent: diastolic murmur, rub , S3 Gallop, S4 Gallop, click, other - Gastrointestinal General gastrointestinal: Present: normal bowel sounds, soft - Integumentary Integumentary: Present: decreased turgor, normal - Neurologic Neurologic: Present: CNII-XII intact - Musculoskeletal Musculoskeletal: Present: generalized weakness, strength equal bilaterally - Psychiatric Psychiatric: Present: A&O x's 3, appropriate affect - Labs CBC & Chem 7: 01/07/17 06:06 01/07/17 06:06 Labs: Abnormal Lab Results - Last 24 Hours (Table) 01/06/17 01/06/17 01/07/17 Range/Units 16:31 20:51 06:06 WBC 12.2 H (3.8-10.6) k/uL RBC 2.43 L (3.80-5.40) m/uL Hgb 7.2 L (11.4-16.0) gm/dL Hct 22.7 L (34.0-46.0) % Neutrophils # 8.7 H (1.3-7.7) k/uL Sodium (137-145) mmol/L BUN (7-17) mg/dL Creatinine (0.52-1.04) mg/dL Glucose (74-99) mg/dL POC Glucose (mg/dL) 233 H 216 H (75-99) mg/dL 01/07/17 01/07/17 Range/Units 06:06 06:31 WBC (3.8-10.6) k/uL RBC (3.80-5.40) m/uL Hgb (11.4-16.0) gm/dL Hct (34.0-46.0) % Neutrophils # (1.3-7.7) k/uL Sodium 135 L (137-145) mmol/L BUN 25 H (7-17) mg/dL Creatinine 3.50 H (0.52-1.04) mg/dL Glucose 105 H (74-99) mg/dL POC Glucose (mg/dL) 109 H (75-99) mg/dL Microbiology - Last 24 Hours (Table) 01/05/17 21:20 Blood Culture - Preliminary Blood No Growth after 24 hours Assessment and Plan Plan: 1. Acute hypoxic respiratory failure secondary to acute on chronic diastolic heart failure, COPD exacerbation, moderate aortic stenosis. Lasix oral, continue oxygen support, continue patient on Imdur 30 mg orally once every day, Toprol-XL 150 mg orally once every day. Continue hydralazine now at 25 mg orally twice every day, nifedipine was resumed, Zaroxolyn. Input and output and daily weight, cardiology consultation. Patient started dialysis 2. Tooth abscess in the right lower jaw. Continue Augmentin 500 mg orally twice every day. 3. Acute kidney injury with chronic kidney disease stage IV. Lasix oral. Nephrology following. Patient started on dialysis treatment. 4. Accelerated hypertension. Continue metoprolol 100 mg orally once every day. 5. Paroxysmal atrial fibrillation. Continue amiodarone 100 mg orally once every day, Eliquis 2.5 mg orally twice every day. 6. Morbid obesity with BMI of 39. 7. Hyperkalemia secondary to chronic renal failure . Resolved. 8. Diabetes mellitus type 2 . Continue Lantus 36 units at bedtime along with a sliding scale insulin. 9. GERD. Continue omeprazole 20 mg orally once every day. 10. Hypertension, hypertensive cardiovascular disease. Continue hydralazine 25 mg orally twice every day, Toprol-XL 100 mg orally once every day discontinue nifedipine. 11. History of myocardial infarction and coronary artery disease. Continue aspirin 81 mg once every day, Toprol-XL 100 mg orally once every day, Imdur 30 mg orally once every day, Zetia 10 mg orally once every day. 12. Hyperlipidemia. 13. Diabetic peripheral neuropathy and neuropathy secondary to chronic back pain. Continue gabapentin 300 mg orally twice every day. 14. Depression, recurrent. Continue Cymbalta 60 mg orally once every day. 15. DVT prophylaxis. Continue patient on Eliquis 2.5 mg orally twice every day as well as bilateral knee-high TERRIE hose. 16. Gastrointestinal. Continue patient on PPI. 17. Anemia of chronic kidney disease. Patient has been started on Ferrlecit x4 and Aranesp. CODE STATUS Full code. Discharge plan: Most likely home with homecare
[2017-01-07 16:53] LABS: Glucose,Whole Blood 139 mg/dL (75-99)
[2017-01-07 21:28] LABS: Glucose,Whole Blood 226 mg/dL (75-99)
[2017-01-07] MEDS: MAGNESIUM OXIDE 400 MG TAB PO SCH (21:51)
[2017-01-07] MEDS: INSULIN GLARGINE 100 UNIT/ML 10 ML VIAL SQ SCH (21:53)
[2017-01-07] MEDS: APIXABAN 2.5 MG TABLET PO SCH (23:20)
[2017-01-07] MEDS: ALPRAZolam 0.25 MG TAB PO PRN (23:20)
[2017-01-07] MEDS: MELATONIN 5 MG TABLET PO SCH (23:20)
[2017-01-07] MEDS: ASPIRIN 81 MG PO SCH (23:20)
[2017-01-08 06:37] LABS: Anisocytosis Slight; Basophils # (A) 0.1 k/uL (0-0.2); Basophils % (A) 1 %; CH 29.1; CHCM 31.2; Eosinophils # (A) 0.3 k/uL (0-0.7); Eosinophils % (A) 2 %; HDW 3.05; HGB 7.1 gm/dL (11.4-16.0); Hypochromasia Slight; Luc % (Auto) 2; Lymphocytes # (A) 1.3 k/uL (1.0-4.8); Lymphocytes % (A) 10 %; MCH 30.2 pg (25.0-35.0); MCHC 32.2 g/dL (31.0-37.0); MCV 93.9 fL (80.0-100.0); Mean Platelet Volume 9.1; Monocytes # (A) 0.7 k/uL (0-1.0); Monocytes % (A) 5 %; Neutrophils % (A) 81 %; RBC 2.34 m/uL (3.80-5.40); RDW 16.5 % (11.5-15.5); WBC 13.6 k/uL (3.8-10.6); WBC (Perox) 14.12
[2017-01-08 06:44] LABS: Potassium 4.6 mmol/L (3.5-5.1)
[2017-01-08] MEDS: PANTOPRAZOLE 40 MG TABLET PO SCH (06:44)
[2017-01-08] MEDS: INSULIN LISPRO (humaLOG) 300 UNIT/3 ML VIAL SQ SCH ×4 (06:46→20:38)
[2017-01-08 06:55] LABS: Glucose,Whole Blood 132 mg/dL (75-99)
[2017-01-08] MEDS: GABAPENTIN 300 MG CAP PO SCH ×2 (07:31→20:23)
[2017-01-08] MEDS: AMOXIC-POT CLAV 500-125 MG 1 EACH TAB PO SCH (07:31)
[2017-01-08] MEDS: FUROSEMIDE 80 MG TAB PO SCH ×2 (07:32→15:17)
[2017-01-08] MEDS: CHOLECALCIFEROL 1,000 UNIT TAB PO SCH (07:32)
[2017-01-08] MEDS: DULoxetine HCL 60 MG CAPSULE.DR PO SCH (07:32)
[2017-01-08] MEDS: EZETIMIBE 10 MG TAB PO SCH (07:32)
[2017-01-08] MEDS: APIXABAN 2.5 MG TABLET PO SCH ×2 (07:33→20:24)
[2017-01-08] MEDS: DOCUSATE 100 MG CAP PO SCH ×2 (07:33→20:23)
[2017-01-08] MEDS: hydrALAZINE HCL 25 MG TAB PO SCH ×2 (07:34→20:24)
[2017-01-08] MEDS: METOLAZONE 5 MG TAB PO SCH (07:34)
[2017-01-08] MEDS: LORATADINE 10 MG TAB PO SCH (07:35)
[2017-01-08] MEDS: METOPROLOL SUCCINATE (ER) 50 MG TAB.ER.24H PO SCH (07:35)
[2017-01-08] MEDS: ISOSORBIDE MONONITRATE ER 30 MG TAB.ER.24H PO SCH (07:40)
[2017-01-08] MEDS: BUDESONIDE 1 MG/2 ML NEBU INHALATION SCH ×2 (07:58→20:05)
[2017-01-08] MEDS: IPRATROPIUM-ALBUTEROL 3 ML NEB INHALATION PRN (07:58)
[2017-01-08] MEDS ORDERED: HEPARIN SODIUM,PORCINE 5,000 UNIT/ML 1 ML VIAL ONE (08:00)
--- NOTE | 2017-01-08 10:35 | P.PN ---
Subjective Patient is seen for follow-up for end-stage renal disease. She is currently resting comfortably she is a scheduled for hemodialysis tomorrow. Patient has had an IJ permacath placed. There is no bleeding noted from her femoral catheter removal site. No complaints of chest pain or shortness of breath. Objective - Vital Signs Vital signs: Vital Signs Temp 97.2 F L 01/08/17 08:00 Pulse 86 01/08/17 08:14 Resp 17 01/08/17 08:00 BP 135/64 01/08/17 08:00 Pulse Ox 97 01/08/17 08:00 Intake & Output 01/07/17 01/08/17 01/08/17 18:59 06:59 18:59 Intake Total 350 Balance 350 Weight 102.3 kg Intake: IV 50 Oral 300 Other: Voiding Method Bedside Commode Bedside Commode Bedside Commode Diaper Diaper Diaper # Voids 0 - Exam On examination patient is comfortable awake alert oriented 3. She is not in any acute distress. Blood pressure is 135/64 heart rate 80/m. She is afebrile Examination of the heart S1 and S2 examination lungs basal crackles were heard Abdomen is soft obese Examination lower extremities shows no evidence of edema. ONCOLOGY TECHNICIAN exam is grossly intact patient is moving all 4 extremities Right femoral groin is intact with no hematoma. - Labs CBC & Chem 7: 01/08/17 05:47 01/08/17 05:47 Labs: Abnormal Lab Results - Last 24 Hours (Table) 01/07/17 01/07/17 01/07/17 Range/Units 12:02 16:45 20:57 WBC (3.8-10.6) k/uL RBC (3.80-5.40) m/uL Hgb (11.4-16.0) gm/dL Hct (34.0-46.0) % RDW (11.5-15.5) % Neutrophils # (1.3-7.7) k/uL APTT 85.7 H (22.0-30.0) sec Sodium (137-145) mmol/L Chloride (98-107) mmol/L BUN (7-17) mg/dL Creatinine (0.52-1.04) mg/dL Glucose (74-99) mg/dL POC Glucose (mg/dL) 130 H 139 H (75-99) mg/dL 01/07/17 01/08/17 01/08/17 Range/Units 21:22 05:47 05:47 WBC 13.6 H (3.8-10.6) k/uL RBC 2.34 L (3.80-5.40) m/uL Hgb 7.1 L (11.4-16.0) gm/dL Hct 22.0 L (34.0-46.0) % RDW 16.5 H (11.5-15.5) % Neutrophils # 11.0 H (1.3-7.7) k/uL APTT (22.0-30.0) sec Sodium 133 L (137-145) mmol/L Chloride 96 L (98-107) mmol/L BUN 38 H (7-17) mg/dL Creatinine 4.70 H (0.52-1.04) mg/dL Glucose 119 H (74-99) mg/dL POC Glucose (mg/dL) 226 H (75-99) mg/dL 01/08/17 01/08/17 Range/Units 05:47 06:35 WBC (3.8-10.6) k/uL RBC (3.80-5.40) m/uL Hgb (11.4-16.0) gm/dL Hct (34.0-46.0) % RDW (11.5-15.5) % Neutrophils # (1.3-7.7) k/uL APTT 31.9 H (22.0-30.0) sec Sodium (137-145) mmol/L Chloride (98-107) mmol/L BUN (7-17) mg/dL Creatinine (0.52-1.04) mg/dL Glucose (74-99) mg/dL POC Glucose (mg/dL) 132 H (75-99) mg/dL Microbiology - Last 24 Hours (Table) 01/05/17 21:20 Blood Culture - Preliminary Blood No Growth after 48 hours Assessment and Plan Plan: Assessment 1. End-stage renal disease started on hemodialysis during hospitalization. Patient will be scheduled for dialysis tomorrow and she will be scheduled for outpatient treatment at the [place] unit. We're awaiting chair placement time. 2. Fluid overload/CHF currently improved 3. CHF mainly diastolic dysfunction currently improving 4. Anemia with iron deficiency status post IV iron and maintained on Aranesp 5. Coronary artery disease with history of SD recently. Plan Hemodialysis in a.m. and awaiting chair placement time at the [place] unit. Patient's daughter was present at bedside yesterday and she expressed her wishes to proceed with CAPD as outpatient. We will arrange for orientation and classes as outpatient once she is more stable.
--- NOTE | 2017-01-08 15:13 | PN ---
PROGRESS NOTE DATE OF SERVICE: 01/07/2017 Patient is seen for followup for end-stage renal disease. She had just returned from her IJ PermCath placement. Patient is doing well. She is lying flat. Family is present at bedside. The patient's daughter states that she would like to proceed with peritoneal dialysis as outpatient. I have advised her that we will proceed with evaluation and placement of PD catheter down the road as outpatient. She will need training and education classes. EXAMINATION: Patient is comfortable and she is arousable. She is sleepy as she has just returned from her procedure. Blood pressure 140/63, heart rate 74 per minute. Patient is afebrile. Examination of the heart: S1, S2. Examination of the lungs: Decreased breath sounds at bases. Abdomen is soft, nontender, obese. Examination lower extremity showed no evidence of edema. Skin exam is grossly intact. LABS: Sodium 135, potassium 3.9, serum creatinine 3.5, BUN is 25. Hemoglobin 7.2 g/dL. ASSESSMENT: 1. End-stage renal disease started on hemodialysis this admission, status post hemodialysis for 3 treatments. The patient will be scheduled for dialysis again on 01/09/2017. 2. Anemia. No obvious bleeding noted. The patient is maintained on Aranesp. She is also getting IV iron, which she will complete on January 09. If her hemoglobin drops further, I will transfuse her 1 unit packed RBCs with hemodialysis tomorrow. 3. Fluid overload, currently improved. PLAN: Next dialysis will be on 01/09/2017 by SUBHA Mayorga. There will be outpatient education and training for PD down the road which is peritoneal dialysis. MMODL / IJN: [id number] /
[2017-01-08] MEDS: SODIUM FERRIC GLUCONAT-SUCROSE 125 MG in SODIUM CHLORIDE 0.9% 100 ML IVPB SCH (15:17)
--- NOTE | 2017-01-08 16:21 | P.PN ---
Subjective This is a 71-year-old female patient of Dr. Garcia with past medical history of atrial fibrillation, coronary artery disease status post myocardial infarction, chronic heart failure, diabetes mellitus type 2, hyperlipidemia, hypertension, chronic kidney disease stage IV, peripheral neuropathy.patient was recently hospitalized at [facility] in 2016 and she was discharged on 12/29/2016 after she was treated for acute diastolic heart failure and tooth abscess for which she was started on IV antibiotic initially and subsequent she was switched to oral Augmentin and she was placed back on her Eliquis, she was given instruction to stop the Eliquis for 48 hours prior to pulling her tooth next week. Patient was doing fine up until yesterday when she developed to have an increased shortness breath and she ended up coming to the ER at [facility] again with significant shortness of breath, she was suggestive of pulmonary edema and she was quite tight in her chest she was admitted to the hospital for evaluation bipolar medicine cardiology was started on Lasix 40 mg IV push every 8 hours, pulmonary as stated earlier and cardiology consultation were obtained. 01/01: Patient remains on Lasix 40 mg IV every 12 hours. Weight is down 1.8 kg. Nebulizer helped her with breathing yesterday. She continues to have wheezing in Pulmicort added. BUN is 43 with creatinine of 2.8. Blood pressure is on the high side for which hydralazine increased to 50 mg twice daily. Repeat troponins were 0.013 and 0.079. Cardiology is on consult. 01/02: Dr. Delacruz has evaluated the patient and medication changes were made for hypertension. He has resumed her back on Procardia. Dr. Guardado has seen the patient and increase Lasix to 100 mg every 8 hours yesterday and today switched to lasix drip. Today BUN is 42 and creatinine 3.01. Patient's weight is down 0.4 kg from yesterday. She is complaining of shortness of breath, little cough and feeling tired. 01/03: Documented weight today is 2 kg higher than yesterday. Renal numbers are higher today with a BUN of 48 and creatinine 3.4. She is currently on Lasix drip. Dr. Botello is recommending dialysis. Blood pressure is better controlled today. 01/04: Patient remains on insulin drip. Her weight is up 3-1/2 kg today with minimal urine output. BUN is now 53 and creatinine 4.01 with hemoglobin 7.8. Capillary blood glucoses running in the 300s and Lantus will be increased to [address] Levy is on consult and patient underwent permacath placement right femoral artery this morning. BiPAP was required last evening. Pulse ox is now 93% on 5 L. 01/05: Lasix changed to 80 mg orally twice daily. Weight is up 4.2 kg today. Patient has been started on Aranesp. Heart rate is in the low 100s. Acute hepatitis panel was negative. She states she had an episode of chest pain last night but none at this time. Her shortness of breath is continued but is improved from yesterday. Dr. Hernandez has ordered Ferrlecit for 4 doses. 01/06 . Patient's currently on dialysis regimen today, 2-3 L would be taken out today to dialysis, patient's mentation fluctuates however she is more lucid side , sleep is still broken, melatonin would be started today. Last night she had gone into respiratory distress, additional Lasix was given 80 mg, and required BiPAP treatments with improvement of dyspnea 01/07: Patient currently is resting without any complaints, no shortness of breath and difficulty breathing she is however breathing easily, no events overnight, vitals are stable hemodialysis catheter for permanent placement performed yesterday from by Dr. Levy. Xanax has helped with some situational anxiety. eliquis will be restarted today. IV heparin would be discontinued 01/08. Discussed with Dr. Botello, plans for outpatient dialysis, dialysis CT would be needed to be made for Monday, physical therapy and endurance needs improve, patient's currently to person assist with physical therapy evaluation, social work been consulted, most likely would need subacute rehabilitation Objective - Vital Signs Vital signs: Vital Signs Temp 97.9 F 01/08/17 11:14 Pulse 85 01/08/17 11:14 Resp 16 01/08/17 11:14 BP 110/53 01/08/17 11:14 Pulse Ox 95 01/08/17 11:14 Intake & Output 01/07/17 01/08/17 01/08/17 18:59 06:59 18:59 Intake Total 350 Balance 350 Weight 102.3 kg Intake: IV 50 Oral 300 Other: Voiding Method Bedside Commode Bedside Commode Bedside Commode Diaper Diaper Diaper # Voids 0 - Constitutional General appearance: Present: cooperative, no acute distress - EENT Eyes: Present: anicteric sclerae, poor dentition ENT: Present: NA/AT, normal oropharynx - Respiratory Respiratory: bilateral: diminished, rales - Cardiovascular Rhythm: regular Heart sounds: normal: S1, S2 Abnormal Heart Sounds: Present: systolic murmur - Gastrointestinal General gastrointestinal: Present: normal bowel sounds, soft - Integumentary Integumentary: Present: decreased turgor, normal - Neurologic Neurologic: Present: CNII-XII intact - Musculoskeletal Musculoskeletal: Present: generalized weakness, strength equal bilaterally - Psychiatric Psychiatric: Present: A&O x's 3, appropriate affect - Labs CBC & Chem 7: 01/08/17 05:47 01/08/17 05:47 Labs: Abnormal Lab Results - Last 24 Hours (Table) 01/07/17 01/07/17 01/07/17 Range/Units 16:45 20:57 21:22 WBC (3.8-10.6) k/uL RBC (3.80-5.40) m/uL Hgb (11.4-16.0) gm/dL Hct (34.0-46.0) % RDW (11.5-15.5) % Neutrophils # (1.3-7.7) k/uL APTT 85.7 H (22.0-30.0) sec Sodium (137-145) mmol/L Chloride (98-107) mmol/L BUN (7-17) mg/dL Creatinine (0.52-1.04) mg/dL Glucose (74-99) mg/dL POC Glucose (mg/dL) 139 H 226 H (75-99) mg/dL 01/08/17 01/08/17 01/08/17 Range/Units 05:47 05:47 05:47 WBC 13.6 H (3.8-10.6) k/uL RBC 2.34 L (3.80-5.40) m/uL Hgb 7.1 L (11.4-16.0) gm/dL Hct 22.0 L (34.0-46.0) % RDW 16.5 H (11.5-15.5) % Neutrophils # 11.0 H (1.3-7.7) k/uL APTT 31.9 H (22.0-30.0) sec Sodium 133 L (137-145) mmol/L Chloride 96 L (98-107) mmol/L BUN 38 H (7-17) mg/dL Creatinine 4.70 H (0.52-1.04) mg/dL Glucose 119 H (74-99) mg/dL POC Glucose (mg/dL) (75-99) mg/dL 01/08/17 Range/Units 06:35 WBC (3.8-10.6) k/uL RBC (3.80-5.40) m/uL Hgb (11.4-16.0) gm/dL Hct (34.0-46.0) % RDW (11.5-15.5) % Neutrophils # (1.3-7.7) k/uL APTT (22.0-30.0) sec Sodium (137-145) mmol/L Chloride (98-107) mmol/L BUN (7-17) mg/dL Creatinine (0.52-1.04) mg/dL Glucose (74-99) mg/dL POC Glucose (mg/dL) 132 H (75-99) mg/dL Microbiology - Last 24 Hours (Table) 01/05/17 21:20 Blood Culture - Preliminary Blood No Growth after 48 hours Assessment and Plan Plan: 1. Acute hypoxic respiratory failure secondary to acute on chronic diastolic heart failure, COPD exacerbation, moderate aortic stenosis. Lasix oral, continue oxygen support, continue patient on Imdur 30 mg orally once every day, Toprol-XL 150 mg orally once every day. Continue hydralazine now at 25 mg orally twice every day, nifedipine was resumed, Zaroxolyn. Input and output and daily weight, cardiology consultation. Patient started dialysis 2. Tooth abscess in the right lower jaw. Continue Augmentin 500 mg orally twice every day. 3. Acute kidney injury with chronic kidney disease stage IV. Lasix oral. Nephrology following. Patient started on dialysis treatment. 4. Accelerated hypertension. Continue metoprolol 100 mg orally once every day. 5. Paroxysmal atrial fibrillation. Continue amiodarone 100 mg orally once every day, Eliquis 2.5 mg orally twice every day. 6. Morbid obesity with BMI of 39. 7. Hyperkalemia secondary to chronic renal failure . Resolved. 8. Diabetes mellitus type 2 . Continue Lantus 36 units at bedtime along with a sliding scale insulin. 9. GERD. Continue omeprazole 20 mg orally once every day. 10. Hypertension, hypertensive cardiovascular disease. Continue hydralazine 25 mg orally twice every day, Toprol-XL 100 mg orally once every day discontinue nifedipine. 11. History of myocardial infarction and coronary artery disease. Continue aspirin 81 mg once every day, Toprol-XL 100 mg orally once every day, Imdur 30 mg orally once every day, Zetia 10 mg orally once every day. 12. Hyperlipidemia. 13. Diabetic peripheral neuropathy and neuropathy secondary to chronic back pain. Continue gabapentin 300 mg orally twice every day. 14. Depression, recurrent. Continue Cymbalta 60 mg orally once every day. 15. DVT prophylaxis. Continue patient on Eliquis 2.5 mg orally twice every day as well as bilateral knee-high TERRIE hose. 16. Gastrointestinal. Continue patient on PPI. 17. Anemia of chronic kidney disease. Patient has been started on Ferrlecit x4 and Aranesp. CODE STATUS Full code. Discharge plan: Most likely subacute rehabilitation with skilled therapies most likely on Monday with dialysis CPAP needs to be arranged
[2017-01-08 17:03] LABS: Glucose,Whole Blood 172 mg/dL (75-99)
[2017-01-08] MEDS: ASPIRIN 81 MG PO SCH (20:23)
[2017-01-08] MEDS: MAGNESIUM OXIDE 400 MG TAB PO SCH (20:24)
[2017-01-08] MEDS: MELATONIN 5 MG TABLET PO SCH (20:24)
[2017-01-08 20:30] LABS: Glucose,Whole Blood 157 mg/dL (75-99)
[2017-01-08] MEDS: INSULIN GLARGINE 100 UNIT/ML 10 ML VIAL SQ SCH (20:38)
[2017-01-09 03:35] LABS: Glucose,Whole Blood 222 mg/dL (75-99)
[2017-01-09] MEDS ORDERED: FUROSEMIDE 10 MG/ML 10 ML VIAL IV STA (03:37)
[2017-01-09] MEDS: INSULIN LISPRO (humaLOG) 300 UNIT/3 ML VIAL SQ SCH ×5 (03:44→21:36)
[2017-01-09 06:18] LABS: Anisocytosis Slight; Basophils # (A) 0.1 k/uL (0-0.2); Basophils % (A) 0 %; CH 29.9; CHCM 31.1; Eosinophils # (A) 0.1 k/uL (0-0.7); Eosinophils % (A) 0 %; HCT 25.5 % (34.0-46.0); HDW 2.97; HGB 7.6 gm/dL (11.4-16.0); Hypochromasia Slight; Luc # (Auto) 0.15; Luc % (Auto) 1; Lymphocytes # (A) 0.8 k/uL (1.0-4.8); Lymphocytes % (A) 3 %; MCH 28.9 pg (25.0-35.0); MCHC 29.9 g/dL (31.0-37.0); MCV 96.6 fL (80.0-100.0); Macrocytosis Slight; Mean Platelet Volume 9.8; Monocytes # (A) 0.8 k/uL (0-1.0); Monocytes % (A) 3 %; Neutrophils # (A) 22.5 k/uL (1.3-7.7); Neutrophils % (A) 92 %; RBC 2.64 m/uL (3.80-5.40); RDW 18.5 % (11.5-15.5); WBC 24.4 k/uL (3.8-10.6); WBC (Perox) 25.36
[2017-01-09] MEDS: PANTOPRAZOLE 40 MG TABLET PO SCH ×2 (06:39→07:39)
[2017-01-09 06:41] LABS: Calcium 9.1 mg/dL (8.4-10.2); Potassium 5.8 mmol/L (3.5-5.1)
[2017-01-09 06:44] LABS: Glucose,Whole Blood 194 mg/dL (75-99)
[2017-01-09 07:10] LABS: Phosphorous 8.7 mg/dL (2.5-4.5)
[2017-01-09] MEDS: IPRATROPIUM-ALBUTEROL 3 ML NEB INHALATION PRN ×4 (08:28→19:37)
[2017-01-09] MEDS: BUDESONIDE 1 MG/2 ML NEBU INHALATION SCH (08:28)
[2017-01-09 11:13] LABS: Glucose,Whole Blood 109 mg/dL (75-99)
--- NOTE | 2017-01-09 11:22 | XR ---
EXAMINATION TYPE: XR chest 1V portable DATE OF EXAM: 01/09/2017 COMPARISON: 01/07/2017 HISTORY: Shortness of breath TECHNIQUE: Single frontal view of the chest is obtained. FINDINGS: Right-sided dialysis catheter noted. Previous surgery involving the vertebral column. Inte rstitial pattern seen with bilateral consolidation and small effusion. Arthropathy of the shoulders. Findings suggest previous surgery. IMPRESSION: 1. Bilateral infiltrate and small effusion correlate for mild venous congestion.
[2017-01-09 11:30] LABS: ABG HCO3 25 mmol/L (21-25); ABG PCO2 42 mmHg (35-45); ABG PO2 145 mmHg (83-108)
[2017-01-09 11:31] LABS: ABG TCO2 26 mmol/L (19-24)
[2017-01-09 11:47] LABS: Anisocytosis Slight; Basophils # (A) 0.1 k/uL (0-0.2); Basophils % (A) 0 %; CH 29.2; CHCM 30.7; Eosinophils # (A) 0.3 k/uL (0-0.7); Eosinophils % (A) 1 %; HDW 3.09; Hypochromasia Moderate; Luc # (Auto) 0.18; Luc % (Auto) 1; Lymphocytes # (A) 1.2 k/uL (1.0-4.8); Lymphocytes % (A) 5 %; MCH 30.8 pg (25.0-35.0); MCHC 32.1 g/dL (31.0-37.0); MCV 95.9 fL (80.0-100.0); Macrocytosis Slight; Mean Platelet Volume 9.1; Monocytes # (A) 0.7 k/uL (0-1.0); Monocytes % (A) 3 %; Neutrophils # (A) 22.2 k/uL (1.3-7.7); Neutrophils % (A) 91 %; RBC 2.61 m/uL (3.80-5.40); RDW 17.6 % (11.5-15.5); WBC 24.5 k/uL (3.8-10.6); WBC (Perox) 26.71
[2017-01-09 11:50] LABS: Calcium 8.8 mg/dL (8.4-10.2); Potassium 4.5 mmol/L (3.5-5.1)
[2017-01-09 12:12] LABS: Creatine Kinase MB 0.8 ng/mL (0.0-2.4)
[2017-01-09] MEDS: AMOXIC-POT CLAV 500-125 MG 1 EACH TAB PO SCH (12:16)
[2017-01-09] MEDS: EZETIMIBE 10 MG TAB PO SCH (12:16)
[2017-01-09] MEDS: DULoxetine HCL 60 MG CAPSULE.DR PO SCH (12:16)
[2017-01-09] MEDS: CHOLECALCIFEROL 1,000 UNIT TAB PO SCH (12:16)
[2017-01-09] MEDS: FUROSEMIDE 80 MG TAB PO SCH (12:16)
[2017-01-09] MEDS: APIXABAN 2.5 MG TABLET PO SCH ×2 (12:16→21:35)
[2017-01-09] MEDS: DOCUSATE 100 MG CAP PO SCH (12:16)
[2017-01-09] MEDS: GABAPENTIN 300 MG CAP PO SCH ×2 (12:16→21:35)
[2017-01-09] MEDS: METOPROLOL SUCCINATE (ER) 50 MG TAB.ER.24H PO SCH (12:17)
[2017-01-09] MEDS: METOLAZONE 5 MG TAB PO SCH (12:17)
[2017-01-09] MEDS: LORATADINE 10 MG TAB PO SCH (12:17)
[2017-01-09] MEDS: hydrALAZINE HCL 25 MG TAB PO SCH ×2 (12:17→21:35)
[2017-01-09] MEDS: ISOSORBIDE MONONITRATE ER 30 MG TAB.ER.24H PO SCH (12:17)
[2017-01-09 12:18] LABS: Troponin I 0.144 ng/mL (0.000-0.034)
--- NOTE | 2017-01-09 13:39 | P.PN ---
Subjective This is a 71-year-old female patient of Dr. Garcia with past medical history of atrial fibrillation, coronary artery disease status post myocardial infarction, chronic heart failure, diabetes mellitus type 2, hyperlipidemia, hypertension, chronic kidney disease stage IV, peripheral neuropathy.patient was recently hospitalized at [facility] in 2016 and she was discharged on 12/29/2016 after she was treated for acute diastolic heart failure and tooth abscess for which she was started on IV antibiotic initially and subsequent she was switched to oral Augmentin and she was placed back on her Eliquis, she was given instruction to stop the Eliquis for 48 hours prior to pulling her tooth next week. Patient was doing fine up until yesterday when she developed to have an increased shortness breath and she ended up coming to the ER at [facility] again with significant shortness of breath, she was suggestive of pulmonary edema and she was quite tight in her chest she was admitted to the hospital for evaluation bipolar medicine cardiology was started on Lasix 40 mg IV push every 8 hours, pulmonary as stated earlier and cardiology consultation were obtained. 01/01: Patient remains on Lasix 40 mg IV every 12 hours. Weight is down 1.8 kg. Nebulizer helped her with breathing yesterday. She continues to have wheezing in Pulmicort added. BUN is 43 with creatinine of 2.8. Blood pressure is on the high side for which hydralazine increased to 50 mg twice daily. Repeat troponins were 0.013 and 0.079. Cardiology is on consult. 01/02: Dr. Delacruz has evaluated the patient and medication changes were made for hypertension. He has resumed her back on Procardia. Dr. Guardado has seen the patient and increase Lasix to 100 mg every 8 hours yesterday and today switched to lasix drip. Today BUN is 42 and creatinine 3.01. Patient's weight is down 0.4 kg from yesterday. She is complaining of shortness of breath, little cough and feeling tired. 01/03: Documented weight today is 2 kg higher than yesterday. Renal numbers are higher today with a BUN of 48 and creatinine 3.4. She is currently on Lasix drip. Dr. Botello is recommending dialysis. Blood pressure is better controlled today. 01/04: Patient remains on insulin drip. Her weight is up 3-1/2 kg today with minimal urine output. BUN is now 53 and creatinine 4.01 with hemoglobin 7.8. Capillary blood glucoses running in the 300s and Lantus will be increased to [address] Levy is on consult and patient underwent permacath placement right femoral artery this morning. BiPAP was required last evening. Pulse ox is now 93% on 5 L. 01/05: Lasix changed to 80 mg orally twice daily. Weight is up 4.2 kg today. Patient has been started on Aranesp. Heart rate is in the low 100s. Acute hepatitis panel was negative. She states she had an episode of chest pain last night but none at this time. Her shortness of breath is continued but is improved from yesterday. Dr. Hernandez has ordered Ferrlecit for 4 doses. 01/06 . Patient's currently on dialysis regimen today, 2-3 L would be taken out today to dialysis, patient's mentation fluctuates however she is more lucid side , sleep is still broken, melatonin would be started today. Last night she had gone into respiratory distress, additional Lasix was given 80 mg, and required BiPAP treatments with improvement of dyspnea 01/07: Patient currently is resting without any complaints, no shortness of breath and difficulty breathing she is however breathing easily, no events overnight, vitals are stable hemodialysis catheter for permanent placement performed yesterday from by Dr. Levy. Xanax has helped with some situational anxiety. eliquis will be restarted today. IV heparin would be discontinued 01/08. Discussed with Dr. Botello, plans for outpatient dialysis, dialysis CT would be needed to be made for Monday, physical therapy and endurance needs improve, patient's currently to person assist with physical therapy evaluation, social work been consulted, most likely would need subacute rehabilitation 01/09: During the night the patient developed some difficulty breathing, she was started on BiPAP. Patient went for dialysis this morning and had 2 L taken off. The patient this morning was noted to be difficult to arouse and hypotensive with a blood pressure of 78/43. She was started back on BiPAP and transferred to the ICU. Repeat hemoglobin was 8, and WBC noted to be elevated at 24.5. Repeat chest x-ray was done and showed bilateral infiltrate and small effusion most likely due to mild venous congestion. She did have a slight increase in her troponin 0.144. Blood cultures still pending. Cardiology, nephrology, and pulmonology on consult. Objective - Vital Signs Vital signs: Vital Signs Temp 97.8 F 01/09/17 04:00 Pulse 96 01/09/17 08:42 Resp 20 01/09/17 06:45 BP 135/75 01/09/17 04:20 Pulse Ox 98 01/09/17 06:45 Intake & Output 01/08/17 01/09/17 01/09/17 18:59 06:59 18:59 Intake Total 240 Output Total 1 Balance 240 -1 Weight 95 kg Intake: Oral 240 Output: Stool 1 Other: Voiding Method Bedside Commode Bedside Commode Diaper Diaper # Voids 1 - Exam - Constitutional General appearance: Present: cooperative, no acute distress - EENT Eyes: Present: anicteric sclerae, poor dentition ENT: Present: NA/AT, normal oropharynx - Respiratory Respiratory: bilateral: diminished, rales - Cardiovascular Rhythm: regular Heart sounds: normal: S1, S2 Abnormal Heart Sounds: Present: systolic murmur - Gastrointestinal General gastrointestinal: Present: normal bowel sounds, soft - Integumentary Integumentary: Present: decreased turgor, normal - Neurologic Neurologic: Present: CNII-XII intact - Musculoskeletal Musculoskeletal: Present: generalized weakness, strength equal bilaterally - Psychiatric Psychiatric: Present: A&O x's 3, appropriate affect - Labs CBC & Chem 7: 01/09/17 11:25 01/09/17 11:25 Labs: Abnormal Lab Results - Last 24 Hours (Table) 01/08/17 01/08/17 01/09/17 Range/Units 16:55 20:28 03:31 WBC (3.8-10.6) k/uL RBC (3.80-5.40) m/uL Hgb (11.4-16.0) gm/dL Hct (34.0-46.0) % MCHC (31.0-37.0) g/dL RDW (11.5-15.5) % Neutrophils # (1.3-7.7) k/uL Lymphocytes # (1.0-4.8) k/uL APTT (22.0-30.0) sec Sodium (137-145) mmol/L Potassium (3.5-5.1) mmol/L Chloride (98-107) mmol/L Carbon Dioxide (22-30) mmol/L BUN (7-17) mg/dL Creatinine (0.52-1.04) mg/dL Glucose (74-99) mg/dL POC Glucose (mg/dL) 172 H 157 H 222 H (75-99) mg/dL Phosphorus (2.5-4.5) mg/dL 01/09/17 01/09/17 01/09/17 Range/Units 05:26 05:26 05:26 WBC 24.4 H (3.8-10.6) k/uL RBC 2.64 L (3.80-5.40) m/uL Hgb 7.6 L (11.4-16.0) gm/dL Hct 25.5 L (34.0-46.0) % MCHC 29.9 L (31.0-37.0) g/dL RDW 18.5 H (11.5-15.5) % Neutrophils # 22.5 H (1.3-7.7) k/uL Lymphocytes # 0.8 L (1.0-4.8) k/uL APTT 32.0 H (22.0-30.0) sec Sodium 133 L (137-145) mmol/L Potassium 5.8 H (3.5-5.1) mmol/L Chloride 97 L (98-107) mmol/L Carbon Dioxide 21 L (22-30) mmol/L BUN 48 H (7-17) mg/dL Creatinine 6.32 H* (0.52-1.04) mg/dL Glucose 191 H (74-99) mg/dL POC Glucose (mg/dL) (75-99) mg/dL Phosphorus 8.7 H* (2.5-4.5) mg/dL 01/09/17 Range/Units 06:37 WBC (3.8-10.6) k/uL RBC (3.80-5.40) m/uL Hgb (11.4-16.0) gm/dL Hct (34.0-46.0) % MCHC (31.0-37.0) g/dL RDW (11.5-15.5) % Neutrophils # (1.3-7.7) k/uL Lymphocytes # (1.0-4.8) k/uL APTT (22.0-30.0) sec Sodium (137-145) mmol/L Potassium (3.5-5.1) mmol/L Chloride (98-107) mmol/L Carbon Dioxide (22-30) mmol/L BUN (7-17) mg/dL Creatinine (0.52-1.04) mg/dL Glucose (74-99) mg/dL POC Glucose (mg/dL) 194 H (75-99) mg/dL Phosphorus (2.5-4.5) mg/dL Microbiology - Last 24 Hours (Table) 01/05/17 21:20 Blood Culture - Preliminary Blood No Growth after 72 hours Assessment and Plan Plan: 1. Acute hypoxic respiratory failure secondary to acute on chronic diastolic heart failure, COPD exacerbation, moderate aortic stenosis. Continue oral Lasix 80 mg by mouth twice a day, continue oxygen support, continue patient on Imdur 30 mg orally once every day, Toprol-XL 150 mg orally once every day. Continue hydralazine now at 25 mg orally twice every day, nifedipine was resumed , continue Zaroxolyn. Input and output and daily weight, cardiology on consultation. All blood pressure medications held due to hypotension. 2. Tooth abscess in the right lower jaw. Continue Augmentin 500 mg orally twice every day. 3. Acute kidney injury with chronic kidney disease stage IV. Lasix oral. Nephrology following. Patient received dialysis today. 4. Accelerated hypertension. Continue metoprolol 100 mg orally once every day , held due to hypotension. 5. Paroxysmal atrial fibrillation. Continue amiodarone 100 mg orally once every day, Eliquis 2.5 mg orally twice every day. 6. Morbid obesity with BMI of 39. 7. Hyperkalemia secondary to chronic renal failure . Resolved. 8. Diabetes mellitus type 2 . Continue Lantus 36 units at bedtime along with a sliding scale insulin. 9. GERD. Continue omeprazole 20 mg orally once every day. 10. Hypertension, hypertensive cardiovascular disease. Continue hydralazine 25 mg orally twice every day, Toprol-XL 100 mg orally once every day discontinue nifedipine. Medications held due to hypotension. 11. History of myocardial infarction and coronary artery disease. Continue aspirin 81 mg once every day, Toprol-XL 100 mg orally once every day, Imdur 30 mg orally once every day, Zetia 10 mg orally once every day. 12. Hyperlipidemia. 13. Diabetic peripheral neuropathy and neuropathy secondary to chronic back pain. Continue gabapentin 300 mg orally twice every day. 14. Depression, recurrent. Continue Cymbalta 60 mg orally once every day. 15. DVT prophylaxis. Continue patient on Eliquis 2.5 mg orally twice every day as well as bilateral knee-high TERRIE hose. 16. Gastrointestinal. Continue patient on PPI. 17. Anemia of chronic kidney disease. Patient has been started on Ferrlecit x4 and Aranesp. CODE STATUS Full code. The above impression and plan of care have been discussed and directed by signing physician. Jossie Negron nurse practitioner acting as scribe for signing physician.
--- NOTE | 2017-01-09 14:43 | P.CNPUL ---
History of Present Illness Consult date: 01/09/17 Reason for consult: dyspnea, hypoxemia, pleural effusion, abnormal CXR/CT Chief complaint: Shortness of breath, hypotension History of present illness: Consult dated 01/09/2017 71-year-old female who was admitted way back on December 31. She apparently had been recently in the hospital on a previous admission for about for 5 days. She was home for 1 day that readmitted. She probably came in with difficulty breathing and was thought to have congestive heart failure. The patient apparently did not have any nausea vomiting. There is no diarrhea. No fever no chills. No abdominal. No chest pain. The patient apparently underwent dialysis today and then became somewhat unresponsive and lethargic. The patient also apparently had some hypotension. For that reason she was moved over here to the ICU. She was placed on BiPAP at 12 and 5 and 50%. Not receiving any fluids. The patient's primary doctor is Dr. Garcia. The patient also sees a pawn broker for her end-stage renal disease. Her home medications included Cymbalta fish oil and somnolent Tylenol Cordarone Eliquis aspirin Zyrtec vitamin D3 Flexeril Colace that he and/or magnesium oxide cranberry tablets omeprazole MiraLAX. ALLERGIES include Napoleon inhibitors or angiotensin receptor blockers Keflex and cephalosporins in general and Darvon and statins. I was just asked to consult on her today because she was moved to the ICU. Review of Systems I cannot get a review of systems out of her. She's very lethargic and sleepy. She's currently on BiPAP. She does arouse a bit but does not really answer any questions. Past Medical History Past Medical History: Atrial Fibrillation, Coronary Artery Disease (CAD), Heart Failure, Diabetes Mellitus, GERD/Reflux, Hyperlipidemia, Hypertension, Myocardial Infarction ([place]), Pneumonia, Renal Disease, Skin Disorder, Sleep Apnea /CPAP/BIPAP Additional Past Medical History / Comment(s): possible sleep apnea, no established diagnosis; chronic kidney disease diangosed may 2015; aortic stenois ; peripheral neuropathy upper and lower extremity Last Myocardial Infarction Date:: 05/28/2015 History of Any Multi-Drug Resistant Organisms: MRSA Date of last positivie culture/infection: 2009 MDRO Source:: wounds Past Surgical History: Back Surgery, Cholecystectomy, Heart Catheterization, Hysterectomy Additional Past Surgical History / Comment(s): Lumbar surgery with decompression off L3-L4 L4-L5 with fusion March 2011 with previous hardware failure L4-L5 and extension of fusion to S1. new back sugery including t8 and t9 Past Anesthesia/Blood Transfusion Reactions: No Reported Reaction Additional Past Anesthesia/Blood Transfusion Reaction / Comment(s): Possible confusion that resolved. Past Psychological History: Anxiety, Depression Smoking Status: Never smoker Past Drug Use History: None Reported - Past Family History Father Additional Family Medical History / Comment(s): Brain aneurysm ; age 72 Sister(s) Family Medical History: Hypertension Additional Family Medical History / Comment(s): Aortic stenosis; mitral valve disease Mother Family Medical History: AFIB, CVA/TIA, Hypertension Additional Family Medical History / Comment(s): mother age 83 Daughter(s) Family Medical History: Asthma Son(s) Family Medical History: Asthma Medications and Allergies Home Medications Medication Instructions Recorded Confirmed Type DULoxetine HCL [Cymbalta] 60 mg PO DAILY 08/04/14 12/31/16 History Fish Oil/Dha/Epa [Fish Oil 1,200 1 cap PO MOWEFR 08/04/14 12/31/16 History mg Fish Oil] Insulin Glargine [Lantus] 30 units SQ HS 08/04/14 12/31/16 History Acetaminophen Tab [Tylenol] 650 mg PO Q6H PRN 05/29/15 12/31/16 History Amiodarone HCl [Pacerone] 100 mg PO DAILY 11/22/15 12/31/16 History Apixaban [Eliquis] 2.5 mg PO BID 11/22/15 12/31/16 History Aspirin EC [Ecotrin Low Dose] 81 mg PO HS 11/22/15 12/31/16 History Cetirizine HCl [Zyrtec] 10 mg PO DAILY 11/22/15 12/31/16 History Cyclobenzaprine [Flexeril] 5 mg PO HS PRN 11/22/15 12/31/16 History Docusate [Colace] 100 mg PO BID 11/22/15 12/31/16 History Ezetimibe [Zetia] 10 mg PO DAILY 11/22/15 12/31/16 History Isosorbide Mononitrate ER [Imdur] 30 mg PO DAILY 11/22/15 12/31/16 History Magnesium Oxide [Mag-Ox] 400 mg PO HS 11/22/15 12/31/16 History ALPRAZolam [Xanax] 0.25 mg PO DAILY PRN #30 tab 11/27/15 12/31/16 Rx Gabapentin [Neurontin] 300 mg PO BID #60 capsule 11/27/15 12/31/16 Rx Cranberry 4200mg-Vitamin C 1 tab PO DAILY 12/25/16 12/31/16 History Omeprazole 20 mg PO DAILY 12/25/16 12/31/16 History Polyethylene Glycol 3350 [Miralax] 17 gm PO DAILY PRN 12/25/16 12/31/16 History Amoxic-Pot Clav 500-125 mg 1 tab PO Q12HR #14 tab 12/29/16 12/31/16 Rx [Augmentin 500-125 mg] Furosemide [Lasix] 40 mg PO DAILY #30 tab 12/29/16 12/31/16 Rx Metoprolol Succinate (ER) [Toprol 100 mg PO DAILY #30 tab 12/29/16 12/31/16 Rx XL] NIFEdipine XL [Procardia XL] 60 mg PO DAILY #60 tab 12/29/16 12/31/16 Rx hydrALAZINE HCL [Apresoline] 25 mg PO BID #60 tab 12/29/16 12/31/16 Rx Cholecalciferol (Vitamin D3) 2,000 unit PO DAILY 12/31/16 12/31/16 History [Vitamin D3] traMADol HCL [Ultram] 100 mg PO Q4H PRN 12/31/16 12/31/16 History Allergies Allergy/AdvReac Type Severity Reaction Status Date / Time NAPOLEON Inhibitors Allergy Swelling Verified 12/31/16 13:44 ARB-Angiotensin Receptor Allergy Swelling Verified 12/31/16 13:44 Antagonist cephalexin monohydrate Allergy Rash/Hives Verified 12/31/16 13:44 [From Keflex] propoxyphene HCl AdvReac Hallucinati Verified 12/31/16 13:44 [From Darvon] ons [id number] Reductase AdvReac Myalgia Verified 12/31/16 13:44 Inhibitor Physical Exam Osteopathic Statement: *. No significant issues noted on an osteopathic structural exam other than those noted in the History and Physical/Consult. Vitals: Vital Signs Temp Pulse Pulse Resp BP BP Pulse Ox 01/09/17 13:15 80 15 01/09/17 13:00 81 15 101/51 99 01/09/17 12:45 82 17 110/68 99 01/09/17 12:30 84 16 104/54 99 01/09/17 12:15 84 24 112/59 99 01/09/17 12:00 84 21 91/47 99 01/09/17 11:45 85 19 103/65 99 01/09/17 11:31 88 01/09/17 11:30 85 23 103/65 100 01/09/17 11:25 85 01/09/17 11:15 86 18 111/48 97 01/09/17 08:42 96 01/09/17 08:30 92 01/09/17 08:00 98 F 80 20 107/56 94 L 01/09/17 06:45 85 20 98 01/09/17 04:20 93 24 135/75 97 01/09/17 04:00 97.8 F 92 26 H 121/60 99 01/08/17 23:51 98.1 F 88 18 123/61 92 L 01/08/17 20:00 97.1 F L 84 18 120/68 92 L 01/08/17 17:01 92 L 01/08/17 16:00 97.7 F 80 16 114/59 92 L Intake and Output 01/08/17 01/09/17 01/09/17 22:59 06:59 14:59 Intake Total 0 Output Total 1 1 Balance -1 -1 Intake: Oral 0 Output: Stool 1 1 Other: Voiding Method Bedside Commode Bedside Commode Diaper Diaper Diaper # Voids 1 1 # Bowel Movements 2 Weight 95 kg No acute distress, very sleepy and lethargic. She does open her eyes. HEENT examination is grossly unremarkable. Mucous membranes are moist. No oral lesions. BiPAP mask in place. Neck supple. Full range of motion. No adenopathy or thyromegaly. Cardiovascular examination reveals distant heart sounds. S1-S2 normal. No murmur. No S3-S4 audible.. Lungs reveal mostly clear breath sounds. A few scattered rhonchi. Maybe a few scattered crackles. Breath sounds are equal but diminished throughout. Abdomen soft bowel sounds are heard. No masses or tenderness. Extremities are intact. No edema. Skin is without rash. Neurologic examination could not be performed. Results - Laboratory Findings CBC and BMP: 01/09/17 11:25 01/09/17 11:25 ABG ABG pH 7.40 (7.35-7.45) 01/09/17 11:20 ABG pCO2 42 mmHg (35-45) 01/09/17 11:20 ABG pO2 145 mmHg (83-108) H 01/09/17 11:20 ABG O2 Saturation 99.0 % (94-97) H 01/09/17 11:20 PT/INR, D-dimer PT 11.0 sec (9.0-12.0) 01/05/17 21:20 INR 1.1 (<1.2) 01/05/17 21:20 Abnormal lab findings: Abnormal Labs 12/31/16 12/31/16 12/31/16 11:03 11:03 11:03 WBC 15.6 H RBC 3.32 L Hgb 10.0 L Hct 30.6 L MCHC RDW 15.6 H Neutrophils # 12.8 H Lymphocytes # APTT ABG pCO2 ABG pO2 ABG HCO3 ABG Total CO2 ABG O2 Saturation Sodium Potassium Chloride Carbon Dioxide BUN 39 H Creatinine 2.84 H Glucose 199 H POC Glucose (mg/dL) Hemoglobin A1c Phosphorus Iron TIBC % Saturation Alkaline Phosphatase 133 H Total Creatine Kinase 24 L Troponin I Total Protein Albumin 12/31/16 12/31/16 12/31/16 16:49 20:35 22:22 WBC RBC Hgb Hct MCHC RDW Neutrophils # Lymphocytes # APTT ABG pCO2 ABG pO2 ABG HCO3 ABG Total CO2 ABG O2 Saturation Sodium Potassium Chloride Carbon Dioxide BUN Creatinine Glucose POC Glucose (mg/dL) 247 H 178 H Hemoglobin A1c Phosphorus Iron TIBC % Saturation Alkaline Phosphatase Total Creatine Kinase Troponin I 0.079 H* Total Protein Albumin 01/01/17 01/01/17 01/01/17 03:39 03:39 03:39 WBC RBC 2.83 L Hgb 8.4 L D Hct 26.3 L MCHC RDW 15.6 H Neutrophils # Lymphocytes # APTT ABG pCO2 ABG pO2 ABG HCO3 ABG Total CO2 ABG O2 Saturation Sodium Potassium Chloride Carbon Dioxide BUN 43 H Creatinine 2.80 H Glucose 188 H POC Glucose (mg/dL) Hemoglobin A1c 7.6 H Phosphorus Iron TIBC % Saturation Alkaline Phosphatase Total Creatine Kinase Troponin I Total Protein 5.9 L Albumin 2.9 L 01/01/17 01/01/17 01/01/17 03:39 05:59 11:50 WBC RBC Hgb Hct MCHC RDW Neutrophils # Lymphocytes # APTT ABG pCO2 ABG pO2 ABG HCO3 ABG Total CO2 ABG O2 Saturation Sodium Potassium Chloride Carbon Dioxide BUN Creatinine Glucose POC Glucose (mg/dL) 163 H 226 H Hemoglobin A1c Phosphorus Iron 31 L TIBC 235 L % Saturation 13.2 L Alkaline Phosphatase Total Creatine Kinase Troponin I Total Protein Albumin 01/01/17 01/01/17 01/02/17 17:13 20:40 02:31 WBC RBC Hgb Hct MCHC RDW Neutrophils # Lymphocytes # APTT ABG pCO2 ABG pO2 ABG HCO3 ABG Total CO2 ABG O2 Saturation Sodium Potassium Chloride Carbon Dioxide BUN Creatinine Glucose POC Glucose (mg/dL) 172 H 250 H 194 H Hemoglobin A1c Phosphorus Iron TIBC % Saturation Alkaline Phosphatase Total Creatine Kinase Troponin I Total Protein Albumin 01/02/17 01/02/17 01/02/17 06:09 06:09 06:13 WBC RBC 2.76 L Hgb 8.1 L Hct 25.6 L MCHC RDW Neutrophils # Lymphocytes # APTT ABG pCO2 ABG pO2 ABG HCO3 ABG Total CO2 ABG O2 Saturation Sodium Potassium Chloride Carbon Dioxide BUN 42 H Creatinine 3.01 H Glucose 157 H POC Glucose (mg/dL) 162 H Hemoglobin A1c Phosphorus Iron TIBC % Saturation Alkaline Phosphatase Total Creatine Kinase Troponin I Total Protein Albumin 01/02/17 01/02/17 01/02/17 11:35 17:09 20:32 WBC RBC Hgb Hct MCHC RDW Neutrophils # Lymphocytes # APTT ABG pCO2 ABG pO2 ABG HCO3 ABG Total CO2 ABG O2 Saturation Sodium Potassium Chloride Carbon Dioxide BUN Creatinine Glucose POC Glucose (mg/dL) 303 H 186 H 201 H Hemoglobin A1c Phosphorus Iron TIBC % Saturation Alkaline Phosphatase Total Creatine Kinase Troponin I Total Protein Albumin 01/03/17 01/03/17 01/03/17 05:49 05:49 06:13 WBC 11.4 H RBC 2.82 L Hgb 8.5 L Hct 25.9 L MCHC RDW Neutrophils # Lymphocytes # APTT ABG pCO2 ABG pO2 ABG HCO3 ABG Total CO2 ABG O2 Saturation Sodium 133 L Potassium Chloride 94 L Carbon Dioxide BUN 48 H Creatinine 3.40 H Glucose 166 H POC Glucose (mg/dL) 198 H Hemoglobin A1c Phosphorus Iron TIBC % Saturation Alkaline Phosphatase Total Creatine Kinase Troponin I Total Protein Albumin 01/03/17 01/03/17 01/03/17 11:53 16:35 20:53 WBC RBC Hgb Hct MCHC RDW Neutrophils # Lymphocytes # APTT ABG pCO2 ABG pO2 ABG HCO3 ABG Total CO2 ABG O2 Saturation Sodium Potassium Chloride Carbon Dioxide BUN Creatinine Glucose POC Glucose (mg/dL) 163 H 240 H 256 H Hemoglobin A1c Phosphorus Iron TIBC % Saturation Alkaline Phosphatase Total Creatine Kinase Troponin I Total Protein Albumin 01/04/17 01/04/17 01/04/17 03:32 04:45 05:38 WBC RBC Hgb Hct MCHC RDW Neutrophils # Lymphocytes # APTT ABG pCO2 51 H ABG pO2 ABG HCO3 29 H ABG Total CO2 30 H ABG O2 Saturation Sodium Potassium Chloride Carbon Dioxide BUN Creatinine Glucose POC Glucose (mg/dL) 273 H 281 H Hemoglobin A1c Phosphorus Iron TIBC % Saturation Alkaline Phosphatase Total Creatine Kinase Troponin I Total Protein Albumin 01/04/17 01/04/17 01/04/17 05:42 05:42 05:42 WBC 11.8 H RBC 2.62 L Hgb 7.8 L Hct 24.1 L MCHC RDW Neutrophils # Lymphocytes # APTT ABG pCO2 ABG pO2 ABG HCO3 ABG Total CO2 ABG O2 Saturation Sodium 134 L Potassium Chloride 94 L Carbon Dioxide BUN 53 H Creatinine 4.01 H Glucose 231 H POC Glucose (mg/dL) Hemoglobin A1c Phosphorus Iron TIBC 234 L % Saturation 15.8 L Alkaline Phosphatase Total Creatine Kinase Troponin I Total Protein Albumin 01/04/17 01/04/17 01/04/17 11:28 16:19 21:05 WBC RBC Hgb Hct MCHC RDW Neutrophils # Lymphocytes # APTT ABG pCO2 ABG pO2 ABG HCO3 ABG Total CO2 ABG O2 Saturation Sodium Potassium Chloride Carbon Dioxide BUN Creatinine Glucose POC Glucose (mg/dL) 197 H 205 H 148 H Hemoglobin A1c Phosphorus Iron TIBC % Saturation Alkaline Phosphatase Total Creatine Kinase Troponin I Total Protein Albumin 01/05/17 01/05/17 01/05/17 09:08 09:08 11:16 WBC 11.2 H RBC 2.56 L Hgb 7.6 L Hct 23.8 L MCHC RDW Neutrophils # 8.5 H Lymphocytes # APTT ABG pCO2 ABG pO2 ABG HCO3 ABG Total CO2 ABG O2 Saturation Sodium 136 L Potassium Chloride 96 L Carbon Dioxide BUN 44 H Creatinine 3.70 H Glucose 182 H POC Glucose (mg/dL) 211 H Hemoglobin A1c Phosphorus Iron TIBC % Saturation Alkaline Phosphatase Total Creatine Kinase Troponin I Total Protein Albumin 01/05/17 01/05/17 01/05/17 16:55 19:18 21:01 WBC RBC Hgb Hct MCHC RDW Neutrophils # Lymphocytes # APTT ABG pCO2 ABG pO2 ABG HCO3 ABG Total CO2 ABG O2 Saturation Sodium Potassium Chloride Carbon Dioxide BUN Creatinine Glucose POC Glucose (mg/dL) 132 H 255 H 219 H Hemoglobin A1c Phosphorus Iron TIBC % Saturation Alkaline Phosphatase Total Creatine Kinase Troponin I Total Protein Albumin 01/05/17 01/05/17 01/06/17 21:20 21:20 02:50 WBC RBC 2.48 L Hgb 7.4 L Hct 22.9 L MCHC RDW 15.7 H Neutrophils # Lymphocytes # APTT 30.7 H ABG pCO2 ABG pO2 ABG HCO3 ABG Total CO2 ABG O2 Saturation Sodium Potassium Chloride 96 L Carbon Dioxide 32 H BUN 30 H Creatinine 3.20 H Glucose 131 H POC Glucose (mg/dL) Hemoglobin A1c Phosphorus Iron TIBC % Saturation Alkaline Phosphatase Total Creatine Kinase Troponin I Total Protein Albumin 01/06/17 01/06/17 01/06/17 02:50 02:50 06:02 WBC RBC 2.49 L Hgb 7.4 L Hct 22.7 L MCHC RDW Neutrophils # Lymphocytes # APTT 48.3 H ABG pCO2 ABG pO2 ABG HCO3 ABG Total CO2 ABG O2 Saturation Sodium Potassium Chloride Carbon Dioxide BUN Creatinine Glucose POC Glucose (mg/dL) 126 H Hemoglobin A1c Phosphorus Iron TIBC % Saturation Alkaline Phosphatase Total Creatine Kinase Troponin I Total Protein Albumin 01/06/17 01/06/17 01/06/17 11:34 16:31 20:51 WBC RBC Hgb Hct MCHC RDW Neutrophils # Lymphocytes # APTT ABG pCO2 ABG pO2 ABG HCO3 ABG Total CO2 ABG O2 Saturation Sodium Potassium Chloride Carbon Dioxide BUN Creatinine Glucose POC Glucose (mg/dL) 166 H 233 H 216 H Hemoglobin A1c Phosphorus Iron TIBC % Saturation Alkaline Phosphatase Total Creatine Kinase Troponin I Total Protein Albumin 0901/07/17 01/07/17 06:06 06:06 06:31 WBC 12.2 H RBC 2.43 L Hgb 7.2 L Hct 22.7 L MCHC RDW Neutrophils # 8.7 H Lymphocytes # APTT ABG pCO2 ABG pO2 ABG HCO3 ABG Total CO2 ABG O2 Saturation Sodium 135 L Potassium Chloride Carbon Dioxide BUN 25 H Creatinine 3.50 H Glucose 105 H POC Glucose (mg/dL) 109 H Hemoglobin A1c Phosphorus Iron TIBC % Saturation Alkaline Phosphatase Total Creatine Kinase Troponin I Total Protein Albumin 01/07/17 01/07/17 01/07/17 12:02 16:45 20:57 WBC RBC Hgb Hct MCHC RDW Neutrophils # Lymphocytes # APTT 85.7 H ABG pCO2 ABG pO2 ABG HCO3 ABG Total CO2 ABG O2 Saturation Sodium Potassium Chloride Carbon Dioxide BUN Creatinine Glucose POC Glucose (mg/dL) 130 H 139 H Hemoglobin A1c Phosphorus Iron TIBC % Saturation Alkaline Phosphatase Total Creatine Kinase Troponin I Total Protein Albumin 01/07/17 01/08/17 01/08/17 21:22 05:47 05:47 WBC 13.6 H RBC 2.34 L Hgb 7.1 L Hct 22.0 L MCHC RDW 16.5 H Neutrophils # 11.0 H Lymphocytes # APTT ABG pCO2 ABG pO2 ABG HCO3 ABG Total CO2 ABG O2 Saturation Sodium 133 L Potassium Chloride 96 L Carbon Dioxide BUN 38 H Creatinine 4.70 H Glucose 119 H POC Glucose (mg/dL) 226 H Hemoglobin A1c Phosphorus Iron TIBC % Saturation Alkaline Phosphatase Total Creatine Kinase Troponin I Total Protein Albumin 01/08/17 01/08/17 01/08/17 05:47 06:35 16:55 WBC RBC Hgb Hct MCHC RDW Neutrophils # Lymphocytes # APTT 31.9 H ABG pCO2 ABG pO2 ABG HCO3 ABG Total CO2 ABG O2 Saturation Sodium Potassium Chloride Carbon Dioxide BUN Creatinine Glucose POC Glucose (mg/dL) 132 H 172 H Hemoglobin A1c Phosphorus Iron TIBC % Saturation Alkaline Phosphatase Total Creatine Kinase Troponin I Total Protein Albumin 01/08/17 01/09/17 01/09/17 20:28 03:31 05:26 WBC 24.4 H RBC 2.64 L Hgb 7.6 L Hct 25.5 L MCHC 29.9 L RDW 18.5 H Neutrophils # 22.5 H Lymphocytes # 0.8 L APTT ABG pCO2 ABG pO2 ABG HCO3 ABG Total CO2 ABG O2 Saturation Sodium Potassium Chloride Carbon Dioxide BUN Creatinine Glucose POC Glucose (mg/dL) 157 H 222 H Hemoglobin A1c Phosphorus Iron TIBC % Saturation Alkaline Phosphatase Total Creatine Kinase Troponin I Total Protein Albumin 01/09/17 01/09/17 01/09/17 05:26 05:26 06:37 WBC RBC Hgb Hct MCHC RDW Neutrophils # Lymphocytes # APTT 32.0 H ABG pCO2 ABG pO2 ABG HCO3 ABG Total CO2 ABG O2 Saturation Sodium 133 L Potassium 5.8 H Chloride 97 L Carbon Dioxide 21 L BUN 48 H Creatinine 6.32 H* Glucose 191 H POC Glucose (mg/dL) 194 H Hemoglobin A1c Phosphorus 8.7 H* Iron TIBC % Saturation Alkaline Phosphatase Total Creatine Kinase Troponin I Total Protein Albumin 01/09/17 01/09/17 01/09/17 11:11 11:20 11:25 WBC 24.5 H RBC 2.61 L Hgb 8.0 L Hct 25.0 L MCHC RDW 17.6 H Neutrophils # 22.2 H Lymphocytes # APTT ABG pCO2 ABG pO2 145 H ABG HCO3 ABG Total CO2 26 H ABG O2 Saturation 99.0 H Sodium Potassium Chloride Carbon Dioxide BUN Creatinine Glucose POC Glucose (mg/dL) 109 H Hemoglobin A1c Phosphorus Iron TIBC % Saturation Alkaline Phosphatase Total Creatine Kinase Troponin I Total Protein Albumin 01/09/17 01/09/17 11:25 11:25 WBC RBC Hgb Hct MCHC RDW Neutrophils # Lymphocytes # APTT ABG pCO2 ABG pO2 ABG HCO3 ABG Total CO2 ABG O2 Saturation Sodium Potassium Chloride Carbon Dioxide BUN 18 H Creatinine 2.60 H Glucose 113 H POC Glucose (mg/dL) Hemoglobin A1c Phosphorus Iron TIBC % Saturation Alkaline Phosphatase Total Creatine Kinase Troponin I 0.144 H* Total Protein Albumin - Diagnostic Findings Chest x-ray: image reviewed (Labs x-rays a medications are all reviewed.) Assessment and Plan (1) Mental status change Status: Acute (2) Hypotension Status: Acute (3) CAD (coronary artery disease) Status: Acute (4) COPD (chronic obstructive pulmonary disease) Status: Acute (5) Diabetes Status: Acute (6) HTN (hypertension) Status: Acute (7) Hyperlipemia Status: Acute (8) Kidney disease, chronic, stage IV (GFR 15-29 ml/min) Status: Acute (9) Moderate aortic stenosis Status: Acute (10) Obesity Status: Acute (11) Paroxysmal a-fib Status: Acute (12) Pulmonary edema, acute Status: Acute (13) ACS (acute coronary syndrome) Status: Acute (14) Accelerated hypertension Status: Acute (15) Acute exacerbation of chronic obstructive airways disease Status: Acute (16) Chronic kidney disease Status: Acute (17) Congestive heart failure Status: Acute (18) Diabetes mellitus Status: Acute (19) Obesity Status: Acute Plan: Plan dated 01/09/2017 The patient's medications labs and x-rays are reviewed. X-rays consistent with mild CHF. We'll maintain her on the BiPAP for now. We'll review her labs and medications. We'll put her under aspiration precautions. Head of bed elevated all times. The patient's medications are reviewed. Reviewed M with DC any sedatives hypnotics tranquilizers or narcotics. Time with Patient: Greater than 30
[2017-01-09 18:51] LABS: Glucose,Whole Blood 110 mg/dL (75-99)
--- NOTE | 2017-01-09 19:17 | PN ---
PROGRESS NOTE INTERVAL HISTORY: The patient is seen for followup for acute end-stage renal disease. This morning I was called as patient was more short of breath. We started dialysis early at about 6 am. We had about 2 L of ultrafiltration. Patient's respiratory status had improved. However, her blood pressure dropped into the 70s and she was placed on BiPAP and transferred to the ICU. The patient has not required any pressors yet. PHYSICAL EXAMINATION: On examination today, blood pressure is 101/51, heart rate 81 per minute. She is currently on BiPAP. Examination of the heart S1, S2. Examination of the lungs decreased breath sounds at bases. ABDOMEN: Soft, obese. Examination of lower extremity shows no significant edema. GOLD BUYER exam shows patient moving all 4 extremities. LAB: Show sodium 137, potassium 4.5, hemoglobin was at 8 g/dL. ASSESSMENT: 1. End-stage renal disease, on hemodialysis, started this admission, status post hemodialysis today. We will dialyze her again tomorrow in view of fluid overload and heart failure. 2. Hyperkalemia, improved post dialysis. 3. Hypotension, rule out underlying infectious etiology. 4. Congestive heart failure mainly diastolic dysfunction status post ultrafiltration of 2 L. We will dialyze the patient again tomorrow. 5. Anemia. No active bleeding noted. The patient is maintained on Aranesp. She is status post IV iron which is scheduled for four bags. She did have iron deficiency. PLAN: Repeat hemodialysis in a.m. Continue diuretics. I will switch the Lasix to IV. RAINE / SUBHAN: [id number] /
[2017-01-09 20:01] LABS: Glucose,Whole Blood 116 mg/dL (75-99)
[2017-01-09] MEDS: FUROSEMIDE 10 MG/ML 10 ML VIAL IV SCH (21:17)
[2017-01-09] MEDS: ASPIRIN 81 MG PO SCH (21:35)
[2017-01-09] MEDS: MAGNESIUM OXIDE 400 MG TAB PO SCH (21:37)
[2017-01-09] MEDS: INSULIN GLARGINE 100 UNIT/ML 10 ML VIAL SQ SCH (21:41)
[2017-01-09] MEDS ORDERED: NALOXONE 0.4 MG/ML 1 ML VIAL IV PRN (22:26)
[2017-01-10 00:36] LABS: Glucose,Whole Blood 114 mg/dL (75-99)
[2017-01-10 05:08] LABS: Calcium 8.7 mg/dL (8.4-10.2); Magnesium 2.1 mg/dL (1.6-2.3); Phosphorous 6.3 mg/dL (2.5-4.5); Potassium 4.2 mmol/L (3.5-5.1)
[2017-01-10 05:23] LABS: Anisocytosis Slight; Basophils # (A) 0.1 k/uL (0-0.2); Basophils % (A) 0 %; CH 29.2; CHCM 30.6; Eosinophils # (A) 0.1 k/uL (0-0.7); Eosinophils % (A) 1 %; HCT 22.9 % (34.0-46.0); HDW 3.08; HGB 7.2 gm/dL (11.4-16.0); Hypochromasia Moderate; Luc # (Auto) 0.16; Luc % (Auto) 1; Lymphocytes # (A) 1.7 k/uL (1.0-4.8); Lymphocytes % (A) 10 %; MCH 30.2 pg (25.0-35.0); MCHC 31.4 g/dL (31.0-37.0); MCV 96.3 fL (80.0-100.0); Macrocytosis Slight; Mean Platelet Volume 9.2; Monocytes # (A) 0.7 k/uL (0-1.0); Monocytes % (A) 4 %; Neutrophils # (A) 15.1 k/uL (1.3-7.7); Neutrophils % (A) 85 %; RBC 2.38 m/uL (3.80-5.40); WBC 17.8 k/uL (3.8-10.6); WBC (Perox) 18.35
[2017-01-10] MEDS: IPRATROPIUM-ALBUTEROL 3 ML NEB INHALATION PRN ×4 (07:34→19:25)
[2017-01-10 07:47] LABS: Glucose,Whole Blood 206 mg/dL (75-99)
[2017-01-10 07:53] LABS: Glucose,Whole Blood 125 mg/dL (75-99)
[2017-01-10] MEDS: INSULIN LISPRO (humaLOG) 300 UNIT/3 ML VIAL SQ SCH ×4 (08:45→21:37)
[2017-01-10] MEDS: PANTOPRAZOLE 40 MG TABLET PO SCH (08:46)
[2017-01-10] MEDS: AMOXIC-POT CLAV 500-125 MG 1 EACH TAB PO SCH (08:46)
[2017-01-10] MEDS: EZETIMIBE 10 MG TAB PO SCH (08:46)
[2017-01-10] MEDS: APIXABAN 2.5 MG TABLET PO SCH ×2 (08:46→21:11)
[2017-01-10] MEDS: DULoxetine HCL 60 MG CAPSULE.DR PO SCH (08:46)
[2017-01-10] MEDS: FUROSEMIDE 10 MG/ML 10 ML VIAL IV SCH ×3 (08:46→23:06)
[2017-01-10] MEDS: CHOLECALCIFEROL 1,000 UNIT TAB PO SCH (08:46)
[2017-01-10] MEDS: ISOSORBIDE MONONITRATE ER 30 MG TAB.ER.24H PO SCH (08:47)
[2017-01-10] MEDS: GABAPENTIN 300 MG CAP PO SCH ×2 (08:47→21:37)
[2017-01-10] MEDS: hydrALAZINE HCL 25 MG TAB PO SCH ×2 (08:47→21:37)
[2017-01-10] MEDS: METOLAZONE 5 MG TAB PO SCH (09:31)
[2017-01-10] MEDS: METOPROLOL SUCCINATE (ER) 50 MG TAB.ER.24H PO SCH (09:31)
--- NOTE | 2017-01-10 10:32 | P.PN ---
Subjective Principal diagnosis: 71-year-old female who was admitted way back on December 31. She apparently had been recently in the hospital on a previous admission for about for 5 days. She was home for 1 day that readmitted. She probably came in with difficulty breathing and was thought to have congestive heart failure. The patient apparently did not have any nausea vomiting. There is no diarrhea. No fever no chills. No abdominal. No chest pain. The patient apparently underwent dialysis today and then became somewhat unresponsive and lethargic. The patient also apparently had some hypotension. For that reason she was moved over here to the ICU. She was placed on BiPAP at 12 and 5 and 50%. Not receiving any fluids. The patient's primary doctor is Dr. Garcia. The patient also sees a manager truck for her end-stage renal disease. Her home medications included Cymbalta fish oil and somnolent Tylenol Cordarone Eliquis aspirin Zyrtec vitamin D3 Flexeril Colace that he and/or magnesium oxide cranberry tablets omeprazole MiraLAX. ALLERGIES include Napoleon inhibitors or angiotensin receptor blockers Keflex and cephalosporins in general and Darvon and statins. We were just asked to consult on her today because she was moved to the ICU. The patient is seen again today 01/10/2017 in follow-up in the intensive care unit. She is currently awake and alert. She is on BiPAP 12/5 at 40% FiO2 to maintain O2 saturations in the 90s. She did undergo hemodialysis yesterday and 2 L were removed. The plan is for repeat dialysis today. Her chest x-ray continues to show evidence of fluid volume overload. She is on Lasix 80 mg every 8 hours. She did not require any pressor support since her arrival. Her blood pressure has improved. Blood cultures reveal no growth to date. White count is improved to 17.8. Hemoglobin 7.2. Current creatinine 3.90. Objective - Vital Signs Vital signs: Vital Signs Temp 98 F 01/09/17 08:00 Pulse 103 H 01/10/17 10:00 Resp 21 01/10/17 10:00 BP 134/63 01/10/17 10:00 Pulse Ox 92 L 01/10/17 10:00 Intake & Output 01/09/17 01/10/17 01/10/17 18:59 06:59 18:59 Intake Total 0 40 Output Total 2 57 10 Balance - - Weight 93 kg Intake: IV 0 40 0.9 @10mls/ hr 0 40 Output: Urine 57 10 Stool 2 Other: Voiding Method Diaper Indwelling Catheter Indwelling Catheter # Bowel Movements 1 - Exam No acute distress, more alert and awake compared to yesterday. HEENT examination is grossly unremarkable. Mucous membranes are moist. No oral lesions. BiPAP mask in place. Neck supple. Full range of motion. No adenopathy or thyromegaly. Cardiovascular examination reveals distant heart sounds. S1-S2 normal. No murmur. No S3-S4 audible.. Lungs reveal mostly clear breath sounds. A few scattered rhonchi. Bibasilar scattered crackles. Breath sounds are equal but diminished throughout. Abdomen soft bowel sounds are heard. No masses or tenderness. Extremities are intact. No edema. Skin is without rash. Neurologic examination without significant focal deficits. - Labs CBC & Chem 7: 01/10/17 04:22 01/10/17 04:22 Labs: Abnormal Lab Results - Last 24 Hours (Table) 01/08/17 01/09/17 01/09/17 Range/Units 11:52 11:11 11:20 WBC (3.8-10.6) k/uL RBC (3.80-5.40) m/uL Hgb (11.4-16.0) gm/dL Hct (34.0-46.0) % RDW (11.5-15.5) % Neutrophils # (1.3-7.7) k/uL ABG pO2 145 H (83-108) mmHg ABG Total CO2 26 H (19-24) mmol/L ABG O2 Saturation 99.0 H (94-97) % Sodium (137-145) mmol/L Chloride (98-107) mmol/L BUN (7-17) mg/dL Creatinine (0.52-1.04) mg/dL Glucose (74-99) mg/dL POC Glucose (mg/dL) 206 H 109 H (75-99) mg/dL Phosphorus (2.5-4.5) mg/dL Troponin I (0.000-0.034) ng/mL 01/09/17 01/09/17 01/09/17 Range/Units 11:25 11:25 11:25 WBC 24.5 H (3.8-10.6) k/uL RBC 2.61 L (3.80-5.40) m/uL Hgb 8.0 L (11.4-16.0) gm/dL Hct 25.0 L (34.0-46.0) % RDW 17.6 H (11.5-15.5) % Neutrophils # 22.2 H (1.3-7.7) k/uL ABG pO2 (83-108) mmHg ABG Total CO2 (19-24) mmol/L ABG O2 Saturation (94-97) % Sodium (137-145) mmol/L Chloride (98-107) mmol/L BUN 18 H (7-17) mg/dL Creatinine 2.60 H (0.52-1.04) mg/dL Glucose 113 H (74-99) mg/dL POC Glucose (mg/dL) (75-99) mg/dL Phosphorus (2.5-4.5) mg/dL Troponin I 0.144 H* (0.000-0.034) ng/mL 01/09/17 01/09/17 01/10/17 Range/Units 18:50 19:59 00:34 WBC (3.8-10.6) k/uL RBC (3.80-5.40) m/uL Hgb (11.4-16.0) gm/dL Hct (34.0-46.0) % RDW (11.5-15.5) % Neutrophils # (1.3-7.7) k/uL ABG pO2 (83-108) mmHg ABG Total CO2 (19-24) mmol/L ABG O2 Saturation (94-97) % Sodium (137-145) mmol/L Chloride (98-107) mmol/L BUN (7-17) mg/dL Creatinine (0.52-1.04) mg/dL Glucose (74-99) mg/dL POC Glucose (mg/dL) 110 H 116 H 114 H (75-99) mg/dL Phosphorus (2.5-4.5) mg/dL Troponin I (0.000-0.034) ng/mL 01/10/17 01/10/17 01/10/17 Range/Units 04:22 04:22 07:51 WBC 17.8 H (3.8-10.6) k/uL RBC 2.38 L (3.80-5.40) m/uL Hgb 7.2 L (11.4-16.0) gm/dL Hct 22.9 L (34.0-46.0) % RDW 18.0 H (11.5-15.5) % Neutrophils # 15.1 H (1.3-7.7) k/uL ABG pO2 (83-108) mmHg ABG Total CO2 (19-24) mmol/L ABG O2 Saturation (94-97) % Sodium 135 L (137-145) mmol/L Chloride 97 L (98-107) mmol/L BUN 30 H (7-17) mg/dL Creatinine 3.90 H (0.52-1.04) mg/dL Glucose 113 H (74-99) mg/dL POC Glucose (mg/dL) 125 H (75-99) mg/dL Phosphorus 6.3 H (2.5-4.5) mg/dL Troponin I (0.000-0.034) ng/mL Microbiology - Last 24 Hours (Table) 01/05/17 21:20 Blood Culture - Preliminary Blood No Growth after 96 hours Assessment and Plan Plan: Impression: #1 Altered mental status secondary to hypotension and acute respiratory failure requiring BiPAP support. #2 Acute hypoxic respiratory failure secondary to fluid volume overload secondary to acute renal failure. #3 Acute on chronic renal failure. #4 Acute exacerbation of chronic obstructive pulmonary disease. #5 Diabetes mellitus. #6 Hypertension. #7 Hyperlipidemia. #8 Coronary artery disease. #9 Moderate aortic stenosis. #10 Obesity. #11 Paroxysmal atrial fibrillation. Plan: The patient was seen and evaluated by Dr. Lee. Her chest x-ray and labs were reviewed. We'll continue to utilize the BiPAP as needed. She is currently in sinus rhythm. She remains on Eliquis. She is being diuresed. Plan is for hemodialysis treatment again today. We'll continue to monitor her here closely in the intensive care unit. We'll continue to follow.
--- NOTE | 2017-01-10 10:56 | XR ---
EXAMINATION TYPE: XR chest 1V DATE OF EXAM: 01/10/2017 COMPARISON: Prior chest x-ray 01/09/2017 HISTORY: Pulmonary edema, congestive heart failure TECHNIQUE: Single frontal view of the chest is obtained. FINDINGS: Right-sided jugular central venous catheter remains in place. Interstitium is increased, t here is bilateral airspace disease present. No evident pneumothorax or sizable effusion. Heart is enl arged. Study is otherwise unchanged. IMPRESSION: Correlate for volume overload, congestive heart failure, pneumonia not excluded. Follow- up is recommended.
--- NOTE | 2017-01-10 11:42 | P.PN ---
Subjective This is a 71-year-old female patient of Dr. Garcia with past medical history of atrial fibrillation, coronary artery disease status post myocardial infarction, chronic heart failure, diabetes mellitus type 2, hyperlipidemia, hypertension, chronic kidney disease stage IV, peripheral neuropathy.patient was recently hospitalized at [facility] in 2016 and she was discharged on 12/29/2016 after she was treated for acute diastolic heart failure and tooth abscess for which she was started on IV antibiotic initially and subsequent she was switched to oral Augmentin and she was placed back on her Eliquis, she was given instruction to stop the Eliquis for 48 hours prior to pulling her tooth next week. Patient was doing fine up until yesterday when she developed to have an increased shortness breath and she ended up coming to the ER at [facility] again with significant shortness of breath, she was suggestive of pulmonary edema and she was quite tight in her chest she was admitted to the hospital for evaluation bipolar medicine cardiology was started on Lasix 40 mg IV push every 8 hours, pulmonary as stated earlier and cardiology consultation were obtained. 01/01: Patient remains on Lasix 40 mg IV every 12 hours. Weight is down 1.8 kg. Nebulizer helped her with breathing yesterday. She continues to have wheezing in Pulmicort added. BUN is 43 with creatinine of 2.8. Blood pressure is on the high side for which hydralazine increased to 50 mg twice daily. Repeat troponins were 0.013 and 0.079. Cardiology is on consult. 01/02: Dr. Delacruz has evaluated the patient and medication changes were made for hypertension. He has resumed her back on Procardia. Dr. Guardado has seen the patient and increase Lasix to 100 mg every 8 hours yesterday and today switched to lasix drip. Today BUN is 42 and creatinine 3.01. Patient's weight is down 0.4 kg from yesterday. She is complaining of shortness of breath, little cough and feeling tired. 01/03: Documented weight today is 2 kg higher than yesterday. Renal numbers are higher today with a BUN of 48 and creatinine 3.4. She is currently on Lasix drip. Dr. Botello is recommending dialysis. Blood pressure is better controlled today. 01/04: Patient remains on insulin drip. Her weight is up 3-1/2 kg today with minimal urine output. BUN is now 53 and creatinine 4.01 with hemoglobin 7.8. Capillary blood glucoses running in the 300s and Lantus will be increased to [address] Levy is on consult and patient underwent permacath placement right femoral artery this morning. BiPAP was required last evening. Pulse ox is now 93% on 5 L. 01/05: Lasix changed to 80 mg orally twice daily. Weight is up 4.2 kg today. Patient has been started on Aranesp. Heart rate is in the low 100s. Acute hepatitis panel was negative. She states she had an episode of chest pain last night but none at this time. Her shortness of breath is continued but is improved from yesterday. Dr. Hernandez has ordered Ferrlecit for 4 doses. 01/06 . Patient's currently on dialysis regimen today, 2-3 L would be taken out today to dialysis, patient's mentation fluctuates however she is more lucid side , sleep is still broken, melatonin would be started today. Last night she had gone into respiratory distress, additional Lasix was given 80 mg, and required BiPAP treatments with improvement of dyspnea 01/07: Patient currently is resting without any complaints, no shortness of breath and difficulty breathing she is however breathing easily, no events overnight, vitals are stable hemodialysis catheter for permanent placement performed yesterday from by Dr. Levy. Xanax has helped with some situational anxiety. eliquis will be restarted today. IV heparin would be discontinued 01/08. Discussed with Dr. Botello, plans for outpatient dialysis, dialysis CT would be needed to be made for Monday, physical therapy and endurance needs improve, patient's currently to person assist with physical therapy evaluation, social work been consulted, most likely would need subacute rehabilitation 01/09: During the night the patient developed some difficulty breathing, she was started on BiPAP. Patient went for dialysis this morning and had 2 L taken off. The patient this morning was noted to be difficult to arouse and hypotensive with a blood pressure of 78/43. She was started back on BiPAP and transferred to the ICU. Repeat hemoglobin was 8, and WBC noted to be elevated at 24.5. Repeat chest x-ray was done and showed bilateral infiltrate and small effusion most likely due to mild venous congestion. She did have a slight increase in her troponin 0.144. Blood cultures still pending. Cardiology, nephrology, and pulmonology on consult. 01/10: Patient was seen and evaluated today, she was noted to be sitting up in her bed, with her family at the bedside. The patient was awake and alert, she had BiPAP in place all last night, currently she is on nasal cannula and doing much better. Her hemoglobin remaines stable at 7.2. Her blood pressure has improved and she is no longer hypotensive. Her repeat chest x-ray shows fluid volume overload. The plan is to receive dialysis today. Objective - Vital Signs Vital signs: Vital Signs Temp 98 F 01/09/17 08:00 Pulse 102 H 01/10/17 11:00 Resp 18 01/10/17 11:00 BP 115/51 01/10/17 11:00 Pulse Ox 94 L 01/10/17 11:00 Intake & Output 01/09/17 01/10/17 01/10/17 18:59 06:59 18:59 Intake Total 0 40 Output Total 2 57 10 Balance - Weight 93 kg Intake: IV 0 40 0.9 @10mls/ hr 0 40 Output: Urine 57 10 Stool 2 Other: Voiding Method Diaper Indwelling Catheter Indwelling Catheter # Bowel Movements 1 - Exam - Constitutional General appearance: Present: cooperative, no acute distress - EENT Eyes: Present: anicteric sclerae, poor dentition ENT: Present: NA/AT, normal oropharynx - Respiratory Respiratory: bilateral: diminished, rales - Cardiovascular Rhythm: regular Heart sounds: normal: S1, S2 Abnormal Heart Sounds: Present: systolic murmur - Gastrointestinal General gastrointestinal: Present: normal bowel sounds, soft - Integumentary Integumentary: Present: decreased turgor, normal - Neurologic Neurologic: Present: CNII-XII intact - Musculoskeletal Musculoskeletal: Present: generalized weakness, strength equal bilaterally - Psychiatric Psychiatric: Present: A&O x's 3, appropriate affect - Labs CBC & Chem 7: 01/10/17 04:22 01/10/17 04:22 Labs: Abnormal Lab Results - Last 24 Hours (Table) 01/08/17 01/09/17 01/09/17 Range/Units 11:52 11:25 11:25 WBC 24.5 H (3.8-10.6) k/uL RBC 2.61 L (3.80-5.40) m/uL Hgb 8.0 L (11.4-16.0) gm/dL Hct 25.0 L (34.0-46.0) % RDW 17.6 H (11.5-15.5) % Neutrophils # 22.2 H (1.3-7.7) k/uL Sodium (137-145) mmol/L Chloride (98-107) mmol/L BUN 18 H (7-17) mg/dL Creatinine 2.60 H (0.52-1.04) mg/dL Glucose 113 H (74-99) mg/dL POC Glucose (mg/dL) 206 H (75-99) mg/dL Phosphorus (2.5-4.5) mg/dL Troponin I (0.000-0.034) ng/mL 01/09/17 01/09/17 01/09/17 Range/Units 11:25 18:50 19:59 WBC (3.8-10.6) k/uL RBC (3.80-5.40) m/uL Hgb (11.4-16.0) gm/dL Hct (34.0-46.0) % RDW (11.5-15.5) % Neutrophils # (1.3-7.7) k/uL Sodium (137-145) mmol/L Chloride (98-107) mmol/L BUN (7-17) mg/dL Creatinine (0.52-1.04) mg/dL Glucose (74-99) mg/dL POC Glucose (mg/dL) 110 H 116 H (75-99) mg/dL Phosphorus (2.5-4.5) mg/dL Troponin I 0.144 H* (0.000-0.034) ng/mL 01/10/17 01/10/17 01/10/17 Range/Units 00:34 04:22 04:22 WBC 17.8 H (3.8-10.6) k/uL RBC 2.38 L (3.80-5.40) m/uL Hgb 7.2 L (11.4-16.0) gm/dL Hct 22.9 L (34.0-46.0) % RDW 18.0 H (11.5-15.5) % Neutrophils # 15.1 H (1.3-7.7) k/uL Sodium 135 L (137-145) mmol/L Chloride 97 L (98-107) mmol/L BUN 30 H (7-17) mg/dL Creatinine 3.90 H (0.52-1.04) mg/dL Glucose 113 H (74-99) mg/dL POC Glucose (mg/dL) 114 H (75-99) mg/dL Phosphorus 6.3 H (2.5-4.5) mg/dL Troponin I (0.000-0.034) ng/mL 01/10/17 Range/Units 07:51 WBC (3.8-10.6) k/uL RBC (3.80-5.40) m/uL Hgb (11.4-16.0) gm/dL Hct (34.0-46.0) % RDW (11.5-15.5) % Neutrophils # (1.3-7.7) k/uL Sodium (137-145) mmol/L Chloride (98-107) mmol/L BUN (7-17) mg/dL Creatinine (0.52-1.04) mg/dL Glucose (74-99) mg/dL POC Glucose (mg/dL) 125 H (75-99) mg/dL Phosphorus (2.5-4.5) mg/dL Troponin I (0.000-0.034) ng/mL Microbiology - Last 24 Hours (Table) 01/05/17 21:20 Blood Culture - Preliminary Blood No Growth after 96 hours Assessment and Plan Plan: 1. Acute hypoxic respiratory failure secondary to acute on chronic diastolic heart failure, COPD exacerbation, moderate aortic stenosis. Continue oral Lasix 80 mg by mouth twice a day, continue oxygen support, continue patient on Imdur 30 mg orally once every day, Toprol-XL 150 mg orally once every day. Continue hydralazine now at 25 mg orally twice every day, nifedipine was resumed , continue Zaroxolyn. Input and output and daily weight, cardiology on consultation. All blood pressure medications held due to hypotension. Hypotension has improved today 2. Tooth abscess in the right lower jaw. Continue Augmentin 500 mg orally twice every day. 3. Acute kidney injury with chronic kidney disease stage IV. Lasix oral. Nephrology following. Patient will receive dialysis today. 4. Accelerated hypertension. Continue metoprolol 100 mg orally once every day. 5. Paroxysmal atrial fibrillation. Continue amiodarone 100 mg orally once every day, Eliquis 2.5 mg orally twice every day. 6. Morbid obesity with BMI of 39. 7. Hyperkalemia secondary to chronic renal failure . Resolved. 8. Diabetes mellitus type 2 . Continue Lantus 36 units at bedtime along with a sliding scale insulin. 9. GERD. Continue omeprazole 20 mg orally once every day. 10. Hypertension, hypertensive cardiovascular disease. Continue hydralazine 25 mg orally twice every day, Toprol-XL 100 mg orally once every day discontinue nifedipine. 11. History of myocardial infarction and coronary artery disease. Continue aspirin 81 mg once every day, Toprol-XL 100 mg orally once every day, Imdur 30 mg orally once every day, Zetia 10 mg orally once every day. 12. Hyperlipidemia. Continue Zetia 13. Diabetic peripheral neuropathy and neuropathy secondary to chronic back pain. Continue gabapentin 300 mg orally twice every day. 14. Depression, recurrent. Continue Cymbalta 60 mg orally once every day. 15. DVT prophylaxis. Continue patient on Eliquis 2.5 mg orally twice every day as well as bilateral knee-high TERRIE hose. 16. Gastrointestinal. Continue patient on PPI. 17. Anemia of chronic kidney disease. Patient has been started on Ferrlecit x4 and Aranesp. CODE STATUS Full code. The above impression and plan of care have been discussed and directed by signing physician. Jossie Negron nurse practitioner acting as scribe for signing physician.
[2017-01-10 15:54] LABS: Glucose,Whole Blood 139 mg/dL (75-99)
[2017-01-10] MEDS: DARBEPOETIN ALFA 40 MCG/0.4 ML SYRINGE SQ SCH (16:48)
[2017-01-10 17:37] LABS: Glucose,Whole Blood 175 mg/dL (75-99)
[2017-01-10 20:29] LABS: Glucose,Whole Blood 112 mg/dL (75-99)
[2017-01-10] MEDS: ASPIRIN 81 MG PO SCH (21:36)
[2017-01-10] MEDS: MAGNESIUM OXIDE 400 MG TAB PO SCH (21:37)
[2017-01-10] MEDS: INSULIN GLARGINE 100 UNIT/ML 10 ML VIAL SQ SCH (21:37)
[2017-01-11] MEDS ORDERED: HEPARIN SODIUM,PORCINE 5,000 UNIT/ML 1 ML VIAL ONE (00:05)
[2017-01-11] MEDS ORDERED: KETOROLAC 30 MG/ML 1 ML VIAL ONE (00:05)
[2017-01-11 05:03] LABS: Anisocytosis Slight; Basophils # (A) 0.1 k/uL (0-0.2); Basophils % (A) 0 %; CH 30.3; CHCM 32.4; Eosinophils % (A) 0 %; HCT 27.9 % (34.0-46.0); HDW 3.65; Hypochromasia Slight; Luc # (Auto) 0.14; Luc % (Auto) 1; Lymphocytes # (A) 1.1 k/uL (1.0-4.8); Lymphocytes % (A) 8 %; MCH 30.1 pg (25.0-35.0); MCHC 31.8 g/dL (31.0-37.0); MCV 94.8 fL (80.0-100.0); Macrocytosis Slight; Mean Platelet Volume 9.7; Monocytes # (A) 0.7 k/uL (0-1.0); Monocytes % (A) 5 %; Neutrophils % (A) 86 %; Poikilocytosis Slight; RBC 2.94 m/uL (3.80-5.40); RDW 19.6 % (11.5-15.5); WBC (Perox) 15.18
[2017-01-11 05:19] LABS: Calcium 8.6 mg/dL (8.4-10.2); Magnesium 2.1 mg/dL (1.6-2.3)
[2017-01-11 05:39] LABS: HGB 8.9 gm/dL (11.4-16.0)
--- NOTE | 2017-01-11 07:44 | XR ---
EXAMINATION TYPE: XR chest 1V DATE OF EXAM: 01/11/2017 COMPARISON: Prior chest x-ray 01/10/2017 HISTORY: Pulmonary edema, congestive heart failure TECHNIQUE: Single frontal view of the chest is obtained. FINDINGS: There is improvement in the airspace disease, aeration within the lungs. No other signific ant interval change. Difficult to exclude small effusion. IMPRESSION: Improvement in patient's volume status, aeration within the lungs.
--- NOTE | 2017-01-11 07:45 | PN ---
PROGRESS NOTE Patient is seen for followup for end-stage renal disease. She was transferred to the ICU yesterday for fluid overload and CHF. Patient was also hypotensive. Her blood pressure has stabilized and she has not required any pressors. On examination, blood pressure is 119/62, heart rate 98 per minute. She is afebrile. Examination of the heart S1, S2. Examination of the lungs, bilateral breath sounds are heard. Abdomen is soft, obese, nontender. Examination of lower extremities shows no significant edema. BRAND ADVISOR exam shows patient is moving all 4 extremities, is grossly intact. LABS: Show sodium 135, potassium 4.2, BUN 30, serum creatinine 3.9, hemoglobin 7.2 g/dL. ASSESSMENT: 1. End-stage renal disease, started on dialysis this admission. Patient was dialyzed yesterday, we had about 2 L of ultrafiltration. We will dialyze her again today. 2. Anemia with no active bleeding noted. We will transfuse 1 unit packed RBCs given her congestive heart failure and renal failure. Patient is maintained on Aranesp. 3. Respiratory failure secondary to congestive heart failure, currently improved. 4. Iron deficiency, status post IV iron. 5. Hyperphosphatemia associated with chronic kidney disease bone mineral disorder. Will start patient on phosphate binders once she is eating. Currently patient is n.p.o. PLAN: Maintain Lasix at 80 mg q.12 hours and we will dialyze the patient today and we will reassess tomorrow per need for further dialysis. I will transfuse her 1 unit packed RBCs with hemodialysis today. MMODL / IJN: [id number] /
[2017-01-11 07:59] LABS: Glucose,Whole Blood 142 mg/dL (75-99)
[2017-01-11] MEDS: IPRATROPIUM-ALBUTEROL 3 ML NEB INHALATION PRN ×2 (08:21→11:46)
[2017-01-11] MEDS: INSULIN LISPRO (humaLOG) 300 UNIT/3 ML VIAL SQ SCH ×4 (08:40→22:05)
[2017-01-11] MEDS: FUROSEMIDE 10 MG/ML 10 ML VIAL IV SCH ×2 (08:41→08:57)
[2017-01-11] MEDS: PANTOPRAZOLE 40 MG TABLET PO SCH (08:41)
[2017-01-11] MEDS: CHOLECALCIFEROL 1,000 UNIT TAB PO SCH (08:42)
[2017-01-11] MEDS: APIXABAN 2.5 MG TABLET PO SCH ×2 (08:42→20:55)
[2017-01-11] MEDS: AMOXIC-POT CLAV 500-125 MG 1 EACH TAB PO SCH (08:42)
[2017-01-11] MEDS: GABAPENTIN 300 MG CAP PO SCH ×2 (08:43→20:54)
[2017-01-11] MEDS: DULoxetine HCL 60 MG CAPSULE.DR PO SCH (08:43)
[2017-01-11] MEDS: EZETIMIBE 10 MG TAB PO SCH (08:43)
[2017-01-11] MEDS: METOPROLOL SUCCINATE (ER) 50 MG TAB.ER.24H PO SCH (08:47)
--- NOTE | 2017-01-11 10:07 | P.PN ---
Subjective 71-year-old female who was admitted way back on December 31. She apparently had been recently in the hospital on a previous admission for about for 5 days. She was home for 1 day that readmitted. She probably came in with difficulty breathing and was thought to have congestive heart failure. The patient apparently did not have any nausea vomiting. There is no diarrhea. No fever no chills. No abdominal. No chest pain. The patient apparently underwent dialysis today and then became somewhat unresponsive and lethargic. The patient also apparently had some hypotension. For that reason she was moved over here to the ICU. She was placed on BiPAP at 12 and 5 and 50%. Not receiving any fluids. The patient's primary doctor is Dr. Garcia. The patient also sees a lacing operator for her end-stage renal disease. Her home medications included Cymbalta fish oil and somnolent Tylenol Cordarone Eliquis aspirin Zyrtec vitamin D3 Flexeril Colace that he and/or magnesium oxide cranberry tablets omeprazole MiraLAX. ALLERGIES include Napoleon inhibitors or angiotensin receptor blockers Keflex and cephalosporins in general and Darvon and statins. We were just asked to consult on her today because she was moved to the ICU. The patient is seen again today 01/10/2017 in follow-up in the intensive care unit. She is currently awake and alert. She is on BiPAP 12/5 at 40% FiO2 to maintain O2 saturations in the 90s. She did undergo hemodialysis yesterday and 2 L were removed. The plan is for repeat dialysis today. Her chest x-ray continues to show evidence of fluid volume overload. She is on Lasix 80 mg every 8 hours. She did not require any pressor support since her arrival. Her blood pressure has improved. Blood cultures reveal no growth to date. White count is improved to 17.8. Hemoglobin 7.2. Current creatinine 3.90.63 The patient is seen again today 01/11/2017 in follow-up in the intensive care unit. She is more awake and alert today as compared to yesterday. She is currently off BiPAP and maintaining good O2 saturations in the 90s on 5 L/m per nasal cannula. Her chest x-ray does show improvement in the volume status and increased aeration of the lungs. Current white count 14.0, hemoglobin 8.9, creatinine 3.00. Objective - Vital Signs Vital signs: Vital Signs Temp 98.9 F 01/11/17 04:00 Pulse 102 H 01/11/17 08:31 Resp 12 01/11/17 07:00 BP 144/64 01/11/17 07:00 Pulse Ox 98 01/11/17 07:00 Intake & Output 01/10/17 01/11/17 01/11/17 18:59 06:59 18:59 Intake Total 0 310 Output Total 20 0198 10 [facility]20 -2048 -10 Weight 91.8 kg 91.8 kg Intake: Blood Product 0 310 Rc Pheresis 2 As3 Unit 0 310 [id number] Output: Urine 20 58 10 Other 2300 Other: Voiding Method Indwelling Catheter Indwelling Catheter - Exam No acute distress, more alert and awake compared to yesterday. HEENT examination is grossly unremarkable. Mucous membranes are moist. No oral lesions. BiPAP mask in place. Neck supple. Full range of motion. No adenopathy or thyromegaly. Cardiovascular examination reveals distant heart sounds. S1-S2 normal. No murmur. No S3-S4 audible.. Lungs reveal mostly clear breath sounds. A few scattered rhonchi. Bibasilar scattered crackles. Breath sounds are equal but diminished throughout. Abdomen soft bowel sounds are heard. No masses or tenderness. Extremities are intact. No edema. Skin is without rash. Neurologic examination without significant focal deficits. - Labs CBC & Chem 7: 01/11/17 04:35 01/11/17 04:35 Labs: Abnormal Lab Results - Last 24 Hours (Table) 01/10/17 01/10/17 01/10/17 Range/Units 11:20 11:56 17:35 WBC (3.8-10.6) k/uL RBC (3.80-5.40) m/uL Hgb (11.4-16.0) gm/dL Hct (34.0-46.0) % RDW (11.5-15.5) % Neutrophils # (1.3-7.7) k/uL Sodium (137-145) mmol/L Carbon Dioxide (22-30) mmol/L BUN (7-17) mg/dL Creatinine (0.52-1.04) mg/dL Glucose (74-99) mg/dL POC Glucose (mg/dL) 139 H 175 H (75-99) mg/dL Phosphorus (2.5-4.5) mg/dL Crossmatch See Detail 01/10/17 01/11/17 01/11/17 Range/Units 20:28 04:35 04:35 WBC 14.0 H (3.8-10.6) k/uL RBC 2.94 L (3.80-5.40) m/uL Hgb 8.9 L D (11.4-16.0) gm/dL Hct 27.9 L (34.0-46.0) % RDW 19.6 H (11.5-15.5) % Neutrophils # 12.0 H (1.3-7.7) k/uL Sodium 136 L (137-145) mmol/L Carbon Dioxide 20 L (22-30) mmol/L BUN 27 H (7-17) mg/dL Creatinine 3.00 H (0.52-1.04) mg/dL Glucose 147 H (74-99) mg/dL POC Glucose (mg/dL) 112 H (75-99) mg/dL Phosphorus 5.0 H (2.5-4.5) mg/dL Crossmatch 01/11/17 Range/Units 07:57 WBC (3.8-10.6) k/uL RBC (3.80-5.40) m/uL Hgb (11.4-16.0) gm/dL Hct (34.0-46.0) % RDW (11.5-15.5) % Neutrophils # (1.3-7.7) k/uL Sodium (137-145) mmol/L Carbon Dioxide (22-30) mmol/L BUN (7-17) mg/dL Creatinine (0.52-1.04) mg/dL Glucose (74-99) mg/dL POC Glucose (mg/dL) 142 H (75-99) mg/dL Phosphorus (2.5-4.5) mg/dL Crossmatch Microbiology - Last 24 Hours (Table) 01/05/17 21:20 Blood Culture - Preliminary Blood No Growth after 120 hours Assessment and Plan Plan: Impression: #1 Altered mental status secondary to hypotension and acute respiratory failure requiring BiPAP support. #2 Acute hypoxic respiratory failure secondary to fluid volume overload secondary to acute renal failure. #3 Acute on chronic renal failure. #4 Acute exacerbation of chronic obstructive pulmonary disease. #5 Diabetes mellitus. #6 Hypertension. #7 Hyperlipidemia. #8 Coronary artery disease. #9 Moderate aortic stenosis. #10 Obesity. #11 Paroxysmal atrial fibrillation. Plan: The patient was seen and evaluated by Dr. Lee. Her chest x-ray and labs were reviewed. We'll continue to utilize the BiPAP as needed. She is cleared for transfer out of the intensive care unit today. We'll continue to follow.
--- NOTE | 2017-01-11 11:24 | P.PN ---
Subjective This is a 71-year-old female patient of Dr. Garcia with past medical history of atrial fibrillation, coronary artery disease status post myocardial infarction, chronic heart failure, diabetes mellitus type 2, hyperlipidemia, hypertension, chronic kidney disease stage IV, peripheral neuropathy.patient was recently hospitalized at [facility] in 2016 and she was discharged on 12/29/2016 after she was treated for acute diastolic heart failure and tooth abscess for which she was started on IV antibiotic initially and subsequent she was switched to oral Augmentin and she was placed back on her Eliquis, she was given instruction to stop the Eliquis for 48 hours prior to pulling her tooth next week. Patient was doing fine up until yesterday when she developed to have an increased shortness breath and she ended up coming to the ER at [facility] again with significant shortness of breath, she was suggestive of pulmonary edema and she was quite tight in her chest she was admitted to the hospital for evaluation bipolar medicine cardiology was started on Lasix 40 mg IV push every 8 hours, pulmonary as stated earlier and cardiology consultation were obtained. 01/01: Patient remains on Lasix 40 mg IV every 12 hours. Weight is down 1.8 kg. Nebulizer helped her with breathing yesterday. She continues to have wheezing in Pulmicort added. BUN is 43 with creatinine of 2.8. Blood pressure is on the high side for which hydralazine increased to 50 mg twice daily. Repeat troponins were 0.013 and 0.079. Cardiology is on consult. 01/02: Dr. Delacruz has evaluated the patient and medication changes were made for hypertension. He has resumed her back on Procardia. Dr. Guardado has seen the patient and increase Lasix to 100 mg every 8 hours yesterday and today switched to lasix drip. Today BUN is 42 and creatinine 3.01. Patient's weight is down 0.4 kg from yesterday. She is complaining of shortness of breath, little cough and feeling tired. 01/03: Documented weight today is 2 kg higher than yesterday. Renal numbers are higher today with a BUN of 48 and creatinine 3.4. She is currently on Lasix drip. Dr. Botello is recommending dialysis. Blood pressure is better controlled today. 01/04: Patient remains on insulin drip. Her weight is up 3-1/2 kg today with minimal urine output. BUN is now 53 and creatinine 4.01 with hemoglobin 7.8. Capillary blood glucoses running in the 300s and Lantus will be increased to [address] Levy is on consult and patient underwent permacath placement right femoral artery this morning. BiPAP was required last evening. Pulse ox is now 93% on 5 L. 01/05: Lasix changed to 80 mg orally twice daily. Weight is up 4.2 kg today. Patient has been started on Aranesp. Heart rate is in the low 100s. Acute hepatitis panel was negative. She states she had an episode of chest pain last night but none at this time. Her shortness of breath is continued but is improved from yesterday. Dr. Hernandez has ordered Ferrlecit for 4 doses. 01/06 . Patient's currently on dialysis regimen today, 2-3 L would be taken out today to dialysis, patient's mentation fluctuates however she is more lucid side , sleep is still broken, melatonin would be started today. Last night she had gone into respiratory distress, additional Lasix was given 80 mg, and required BiPAP treatments with improvement of dyspnea 01/07: Patient currently is resting without any complaints, no shortness of breath and difficulty breathing she is however breathing easily, no events overnight, vitals are stable hemodialysis catheter for permanent placement performed yesterday from by Dr. Levy. Xanax has helped with some situational anxiety. eliquis will be restarted today. IV heparin would be discontinued 01/08. Discussed with Dr. Botello, plans for outpatient dialysis, dialysis CT would be needed to be made for Monday, physical therapy and endurance needs improve, patient's currently to person assist with physical therapy evaluation, social work been consulted, most likely would need subacute rehabilitation 01/09: During the night the patient developed some difficulty breathing, she was started on BiPAP. Patient went for dialysis this morning and had 2 L taken off. The patient this morning was noted to be difficult to arouse and hypotensive with a blood pressure of 78/43. She was started back on BiPAP and transferred to the ICU. Repeat hemoglobin was 8, and WBC noted to be elevated at 24.5. Repeat chest x-ray was done and showed bilateral infiltrate and small effusion most likely due to mild venous congestion. She did have a slight increase in her troponin 0.144. Blood cultures still pending. Cardiology, nephrology, and pulmonology on consult. 01/10: Patient was seen and evaluated today, she was noted to be sitting up in her bed, with her family at the bedside. The patient was awake and alert, she had BiPAP in place all last night, currently she is on nasal cannula and doing much better. Her hemoglobin remaines stable at 7.2. Her blood pressure has improved and she is no longer hypotensive. Her repeat chest x-ray shows fluid volume overload. The plan is to receive dialysis today. 01/11: Patient was noted to be sitting up in her bed resting comfortably. She is awake and alert and answering questions appropriately. She did have dialysis yesterday with no complications. Repeat chest x-ray shows improvement in patient's volume status. Patient did receive 1 unit of packed RBCs and Aranesp at dialysis yesterday. Patient's hemoglobin is now 8.9. Blood cultures still pending but show no growth to date. Blood pressure remains stable. Overall her condition is improving, she'll be moved out of the ICU today. Objective - Vital Signs Vital signs: Vital Signs Temp 98.9 F 01/11/17 04:00 Pulse 100 01/11/17 07:00 Resp 12 01/11/17 07:00 BP 144/64 01/11/17 07:00 Pulse Ox 98 01/11/17 07:00 Intake & Output 01/10/17 01/11/17 01/11/17 18:59 06:59 18:59 Intake Total 0 310 Output Total 20 3918 10 Balance - -8 -10 Weight 91.8 kg Intake: Blood Product 0 310 Rc Pheresis 2 As3 Unit 0 310 [id number] Output: Urine 20 58 10 Other 2300 Other: Voiding Method Indwelling Catheter Indwelling Catheter - Exam - Constitutional General appearance: Present: cooperative, no acute distress - EENT Eyes: Present: anicteric sclerae, poor dentition ENT: Present: NA/AT, normal oropharynx - Respiratory Respiratory: bilateral: diminished, rales - Cardiovascular Rhythm: regular Heart sounds: normal: S1, S2 Abnormal Heart Sounds: Present: systolic murmur - Gastrointestinal General gastrointestinal: Present: normal bowel sounds, soft - Integumentary Integumentary: Present: decreased turgor, normal - Neurologic Neurologic: Present: CNII-XII intact - Musculoskeletal Musculoskeletal: Present: generalized weakness, strength equal bilaterally - Psychiatric Psychiatric: Present: A&O x's 3, appropriate affect - Labs CBC & Chem 7: 01/11/17 04:35 01/11/17 04:35 Labs: Abnormal Lab Results - Last 24 Hours (Table) 01/10/17 01/10/17 01/10/17 Range/Units 11:20 11:56 17:35 WBC (3.8-10.6) k/uL RBC (3.80-5.40) m/uL Hgb (11.4-16.0) gm/dL Hct (34.0-46.0) % RDW (11.5-15.5) % Neutrophils # (1.3-7.7) k/uL Sodium (137-145) mmol/L Carbon Dioxide (22-30) mmol/L BUN (7-17) mg/dL Creatinine (0.52-1.04) mg/dL Glucose (74-99) mg/dL POC Glucose (mg/dL) 139 H 175 H (75-99) mg/dL Phosphorus (2.5-4.5) mg/dL Crossmatch See Detail 01/10/17 01/11/17 01/11/17 Range/Units 20:28 04:35 04:35 WBC 14.0 H (3.8-10.6) k/uL RBC 2.94 L (3.80-5.40) m/uL Hgb 8.9 L D (11.4-16.0) gm/dL Hct 27.9 L (34.0-46.0) % RDW 19.6 H (11.5-15.5) % Neutrophils # 12.0 H (1.3-7.7) k/uL Sodium 136 L (137-145) mmol/L Carbon Dioxide 20 L (22-30) mmol/L BUN 27 H (7-17) mg/dL Creatinine 3.00 H (0.52-1.04) mg/dL Glucose 147 H (74-99) mg/dL POC Glucose (mg/dL) 112 H (75-99) mg/dL Phosphorus 5.0 H (2.5-4.5) mg/dL Crossmatch 01/11/17 Range/Units 07:57 WBC (3.8-10.6) k/uL RBC (3.80-5.40) m/uL Hgb (11.4-16.0) gm/dL Hct (34.0-46.0) % RDW (11.5-15.5) % Neutrophils # (1.3-7.7) k/uL Sodium (137-145) mmol/L Carbon Dioxide (22-30) mmol/L BUN (7-17) mg/dL Creatinine (0.52-1.04) mg/dL Glucose (74-99) mg/dL POC Glucose (mg/dL) 142 H (75-99) mg/dL Phosphorus (2.5-4.5) mg/dL Crossmatch Microbiology - Last 24 Hours (Table) 01/05/17 21:20 Blood Culture - Preliminary Blood No Growth after 120 hours Assessment and Plan Plan: 1. Acute hypoxic respiratory failure secondary to acute on chronic diastolic heart failure, COPD exacerbation, moderate aortic stenosis. Continue oral Lasix 80 mg by mouth twice a day, continue oxygen support, continue patient on Imdur 30 mg orally once every day, Toprol-XL 150 mg orally once every day. Continue hydralazine now at 25 mg orally twice every day, nifedipine was resumed , continue Zaroxolyn. Input and output and daily weight, cardiology on consultation. 2. Tooth abscess in the right lower jaw. Continue Augmentin 500 mg orally twice every day. 3. Acute kidney injury with chronic kidney disease stage IV. Lasix oral. Nephrology following. Patient has received dialysis. 4. Accelerated hypertension. Continue metoprolol 100 mg orally once every day. 5. Paroxysmal atrial fibrillation. Continue amiodarone 100 mg orally once every day, Eliquis 2.5 mg orally twice every day. 6. Morbid obesity with BMI of 39. 7. Hyperkalemia secondary to chronic renal failure . Resolved. 8. Diabetes mellitus type 2 . Continue Lantus 36 units at bedtime along with a sliding scale insulin. 9. GERD. Continue omeprazole 20 mg orally once every day. 10. Hypertension, hypertensive cardiovascular disease. Continue hydralazine 25 mg orally twice every day, Toprol-XL 150 mg orally once every day 11. History of myocardial infarction and coronary artery disease. Continue aspirin 81 mg once every day, Toprol-XL 150 mg orally once every day, Imdur 30 mg orally once every day, Zetia 10 mg orally once every day. 12. Hyperlipidemia. Continue Zetia 10mg daily 13. Diabetic peripheral neuropathy and neuropathy secondary to chronic back pain. Continue gabapentin 300 mg orally twice every day. 14. Depression, recurrent. Continue Cymbalta 60 mg orally once every day. 15. DVT prophylaxis. Continue patient on Eliquis 2.5 mg orally twice every day as well as bilateral knee-high TERRIE hose. 16. Gastrointestinal. Continue patient on PPI. 17. Anemia of chronic kidney disease. Patient received 1 unit of RBCs and Aranesp, hemoglobin stable, will continue to monitor CBC closely. CODE STATUS Full code. The above impression and plan of care have been discussed and directed by signing physician. Jossie Negron nurse practitioner acting as scribe for signing physician.
[2017-01-11 12:42] LABS: Glucose,Whole Blood 209 mg/dL (75-99)
[2017-01-11] MEDS: hydrALAZINE HCL 25 MG TAB PO SCH ×2 (12:42→20:55)
--- NOTE | 2017-01-11 15:51 | P.PN ---
Subjective Patient is seen in follow-up for end-stage renal disease. She was started on hemodialysis this admission. She underwent hemodialysis yesterday. Patient was also noted to be anemic and had a blood transfusion with improvement in hemoglobin. She is currently resting in bed. Still is dyspneic although improved from yesterday. No vomiting or diarrhea. Vital signs are stable. General: The patient appeared well nourished and normally developed. HEENT: Head exam is unremarkable. Neck is without jugular venous distension. LUNGS: Lungs are clear to auscultation and percussion. Breath sounds decreased. HEART: Rate and Rhythm are regular. First and second heart sounds normal. No murmurs, rubs or gallops. ABDOMEN: Abdominal exam reveals normal bowel sounds. Non-tender and non- distended. No evidence of peritonitis. EXTREMITITES: No clubbing, cyanosis, or edema. Objective - Vital Signs Vital signs: Vital Signs Temp 98.7 F 01/11/17 14:53 Pulse 91 01/11/17 14:53 Resp 16 01/11/17 14:53 BP 116/60 01/11/17 14:53 Pulse Ox 96 01/11/17 14:53 Intake & Output 01/10/17 01/11/17 01/11/17 18:59 06:59 18:59 Intake Total 0 310 Output Total 20 2358 20 Balance - Weight 91.8 kg 91.8 kg Intake: Blood Product 0 310 Rc Pheresis 2 As3 Unit 0 310 [id number] Output: Urine 20 58 20 Other 2300 Other: Voiding Method Indwelling Catheter Indwelling Catheter Indwelling Catheter # Bowel Movements 1 - Labs CBC & Chem 7: 01/11/17 04:35 01/11/17 04:35 Labs: Abnormal Lab Results - Last 24 Hours (Table) 01/10/17 01/10/17 01/10/17 Range/Units 11:20 11:56 17:35 WBC (3.8-10.6) k/uL RBC (3.80-5.40) m/uL Hgb (11.4-16.0) gm/dL Hct (34.0-46.0) % RDW (11.5-15.5) % Neutrophils # (1.3-7.7) k/uL Sodium (137-145) mmol/L Carbon Dioxide (22-30) mmol/L BUN (7-17) mg/dL Creatinine (0.52-1.04) mg/dL Glucose (74-99) mg/dL POC Glucose (mg/dL) 139 H 175 H (75-99) mg/dL Phosphorus (2.5-4.5) mg/dL Crossmatch See Detail 01/10/17 01/11/17 01/11/17 Range/Units 20:28 04:35 04:35 WBC 14.0 H (3.8-10.6) k/uL RBC 2.94 L (3.80-5.40) m/uL Hgb 8.9 L D (11.4-16.0) gm/dL Hct 27.9 L (34.0-46.0) % RDW 19.6 H (11.5-15.5) % Neutrophils # 12.0 H (1.3-7.7) k/uL Sodium 136 L (137-145) mmol/L Carbon Dioxide 20 L (22-30) mmol/L BUN 27 H (7-17) mg/dL Creatinine 3.00 H (0.52-1.04) mg/dL Glucose 147 H (74-99) mg/dL POC Glucose (mg/dL) 112 H (75-99) mg/dL Phosphorus 5.0 H (2.5-4.5) mg/dL Crossmatch 01/11/17 01/11/17 Range/Units 07:57 12:40 WBC (3.8-10.6) k/uL RBC (3.80-5.40) m/uL Hgb (11.4-16.0) gm/dL Hct (34.0-46.0) % RDW (11.5-15.5) % Neutrophils # (1.3-7.7) k/uL Sodium (137-145) mmol/L Carbon Dioxide (22-30) mmol/L BUN (7-17) mg/dL Creatinine (0.52-1.04) mg/dL Glucose (74-99) mg/dL POC Glucose (mg/dL) 142 H 209 H (75-99) mg/dL Phosphorus (2.5-4.5) mg/dL Crossmatch Microbiology - Last 24 Hours (Table) 01/10/17 02:15 Urine Culture - Final Urine,Catheterized 01/05/17 21:20 Blood Culture - Preliminary Blood No Growth after 120 hours Assessment and Plan Plan: Assessment: #1. End-stage renal disease started on hemodialysis this admission. She underwent hemodialysis yesterday. She has a permacath in place. #2. Anemia status post blood transfusion yesterday. Hemoglobin improved. Also status post 3 doses of IV iron. #3. Volume overload. Improved postdialysis. #4. Hyperphosphatemia secondary to chronic kidney disease. Plan: Change Lasix to 80 mg orally twice daily. Hemodialysis today with goal 2 liters ultrafiltration. Will get case preparer and liner on board to help facilitate outpatient hemodialysis set up. Maintain Aranesp. Patient is interested in peritoneal dialysis in the future. Will discuss as an outpatient.
[2017-01-11] MEDS: FUROSEMIDE 80 MG TAB PO SCH (16:30)
[2017-01-11] MEDS: ISOSORBIDE MONONITRATE ER 30 MG TAB.ER.24H PO SCH (16:47)
[2017-01-11 16:56] LABS: Glucose,Whole Blood 263 mg/dL (75-99)
[2017-01-11] MEDS: CALCIUM ACETATE 667 MG CAP PO SCH (18:07)
[2017-01-11] MEDS: ASPIRIN 81 MG PO SCH (20:54)
[2017-01-11] MEDS: MAGNESIUM OXIDE 400 MG TAB PO SCH (20:55)
[2017-01-11 21:14] LABS: Glucose,Whole Blood 110 mg/dL (75-99)
[2017-01-11] MEDS: INSULIN GLARGINE 100 UNIT/ML 10 ML VIAL SQ SCH (22:08)
[2017-01-12 07:16] LABS: Glucose,Whole Blood 123 mg/dL (75-99)
[2017-01-12] MEDS: AMOXIC-POT CLAV 500-125 MG 1 EACH TAB PO SCH (08:08)
[2017-01-12] MEDS: PANTOPRAZOLE 40 MG TABLET PO SCH (08:08)
[2017-01-12] MEDS: CALCIUM ACETATE 667 MG CAP PO SCH ×3 (08:08→16:38)
[2017-01-12] MEDS: INSULIN LISPRO (humaLOG) 300 UNIT/3 ML VIAL SQ SCH ×4 (08:08→22:18)
[2017-01-12] MEDS: DULoxetine HCL 60 MG CAPSULE.DR PO SCH (08:09)
[2017-01-12] MEDS: APIXABAN 2.5 MG TABLET PO SCH ×2 (08:09→22:07)
[2017-01-12] MEDS: CHOLECALCIFEROL 1,000 UNIT TAB PO SCH (08:09)
[2017-01-12] MEDS: EZETIMIBE 10 MG TAB PO SCH (08:09)
[2017-01-12] MEDS: FUROSEMIDE 80 MG TAB PO SCH ×2 (08:09→16:38)
[2017-01-12] MEDS: GABAPENTIN 300 MG CAP PO SCH ×2 (08:10→22:07)
[2017-01-12] MEDS: METOPROLOL SUCCINATE (ER) 50 MG TAB.ER.24H PO SCH (08:10)
[2017-01-12] MEDS: hydrALAZINE HCL 25 MG TAB PO SCH ×2 (08:10→22:08)
[2017-01-12] MEDS: ISOSORBIDE MONONITRATE ER 30 MG TAB.ER.24H PO SCH (08:10)
[2017-01-12 08:39] LABS: Anisocytosis Slight; Basophils # (A) 0.1 k/uL (0-0.2); Basophils % (A) 1 %; CH 30.6; CHCM 32.4; Eosinophils # (A) 0.2 k/uL (0-0.7); Eosinophils % (A) 2 %; HDW 3.68; HGB 9.8 gm/dL (11.4-16.0); Hypochromasia Slight; Luc # (Auto) 0.17; Luc % (Auto) 2; Lymphocytes # (A) 1.4 k/uL (1.0-4.8); Lymphocytes % (A) 13 %; MCH 30.1 pg (25.0-35.0); MCHC 31.5 g/dL (31.0-37.0); MCV 95.5 fL (80.0-100.0); Macrocytosis Slight; Mean Platelet Volume 9.4; Monocytes # (A) 0.7 k/uL (0-1.0); Monocytes % (A) 6 %; Neutrophils # (A) 8.2 k/uL (1.3-7.7); Neutrophils % (A) 76 %; Poikilocytosis Slight; RBC 3.25 m/uL (3.80-5.40); RDW 19.9 % (11.5-15.5); WBC 10.8 k/uL (3.8-10.6); WBC (Perox) 11.76
[2017-01-12 09:26] LABS: Calcium 8.6 mg/dL (8.4-10.2); Magnesium 2.1 mg/dL (1.6-2.3); Phosphorous 3.3 mg/dL (2.5-4.5); Potassium 3.3 mmol/L (3.5-5.1)
--- NOTE | 2017-01-12 09:44 | CDI ---
In responding to this query, please exercise your independent professional judgment. The [facility] Coding Staff and Clinical Documentation Specialists appreciate your assistance in clarifying documentation, maintaining compliance with coding guidelines, accurately documenting patients condition and capturing severity of illness. The fact that a question is asked does not imply that any particular answer is desired or expected. Communication forms are a method of clarifying documentation and are not made part of the Legal Health Record. Thank you in advance for your clarification. Last Revision, June 2015 Susanna Nolen [address] [place] [address] Documentation Clarification Form Date: 01/12/2017 9:26:00 AM From: Ashlee Naqvi RN, CCDS Admit Date: 12/31/2016 1:28:00 PM Patient Name: Hayley Corrigan Visit Number: [id number] Dr. Neville Robertson/Jossie Negron CNP Altered mental status was documented in the Pulmonary Progress Notes Patient history/risk factors: 01/09 Attending Progress Note: "01/09: During the night the patient developed some difficulty breathing, she was started on BiPAP. Patient went for dialysis this morning and had 2 L taken off. The patient this morning was noted to be difficult to arouse and hypotensive with a blood pressure of 78/43. She was started back on BiPAP and transferred to the ICU. Repeat hemoglobin was 8, and WBC noted to be elevated at 24.5. Repeat chest x-ray was done and showed bilateral infiltrate and small effusion most likely due to mild venous congestion. She did have a slight increase in her troponin 0.144. Blood cultures still pending. Clinical Indicators: 01/11 Pulmonary Progress Notes: "Altered mental status secondary to hypotension and acute respiratory failure requiring BiPAP support. Acute hypoxic respiratory failure secondary to fluid volume overload secondary to acute renal failure. Acute on chronic renal failure. Acute exacerbation of chronic obstructive pulmonary disease. Diabetes mellitus. 01/10-01/12 Labs: WBC 17.8/14/10.8, Hgb 7.2/8.9/9.8, Neutrophils 15.1/12/8.2, BUN 48/30/27, creatinine 2.6/3.9/3, troponin 8.7/6.3/5.0 CXR: volume overload, CHF, pneumonia not excluded Treatment: BIPAP Hemodialysis In your professional opinion, please clarify the etiology of the altered mental status, if known. Encephalopathy (specificity Type and Underlying Medical Illness and type of Encephalopathy- Metabolic, Toxic, Hepatic, other specified cause) Dementia (if know, specify Type and if with/without Behavioral Disturbance) Encephalopathy (specify Type and Underlying Medical Illness) Other condition (please specify) Unable to determine Please document in your progress notes and discharge summary in order to capture severity of illness and risk of mortality. Include clinical findings that support your diagnosis. FYI: Press F11 to launch patient chart. Place X here if this finding has no clinical significance, is not applicable or if you are not able to provide any additional documentation. MTDD
--- NOTE | 2017-01-12 10:11 | P.PN ---
Subjective This is a 71-year-old female patient of Dr. Garcia with past medical history of atrial fibrillation, coronary artery disease status post myocardial infarction, chronic heart failure, diabetes mellitus type 2, hyperlipidemia, hypertension, chronic kidney disease stage IV, peripheral neuropathy.patient was recently hospitalized at [facility] in 2016 and she was discharged on 12/29/2016 after she was treated for acute diastolic heart failure and tooth abscess for which she was started on IV antibiotic initially and subsequent she was switched to oral Augmentin and she was placed back on her Eliquis, she was given instruction to stop the Eliquis for 48 hours prior to pulling her tooth next week. Patient was doing fine up until yesterday when she developed to have an increased shortness breath and she ended up coming to the ER at [facility] again with significant shortness of breath, she was suggestive of pulmonary edema and she was quite tight in her chest she was admitted to the hospital for evaluation bipolar medicine cardiology was started on Lasix 40 mg IV push every 8 hours, pulmonary as stated earlier and cardiology consultation were obtained. 01/01: Patient remains on Lasix 40 mg IV every 12 hours. Weight is down 1.8 kg. Nebulizer helped her with breathing yesterday. She continues to have wheezing in Pulmicort added. BUN is 43 with creatinine of 2.8. Blood pressure is on the high side for which hydralazine increased to 50 mg twice daily. Repeat troponins were 0.013 and 0.079. Cardiology is on consult. 01/02: Dr. Delacruz has evaluated the patient and medication changes were made for hypertension. He has resumed her back on Procardia. Dr. Guardado has seen the patient and increase Lasix to 100 mg every 8 hours yesterday and today switched to lasix drip. Today BUN is 42 and creatinine 3.01. Patient's weight is down 0.4 kg from yesterday. She is complaining of shortness of breath, little cough and feeling tired. 01/03: Documented weight today is 2 kg higher than yesterday. Renal numbers are higher today with a BUN of 48 and creatinine 3.4. She is currently on Lasix drip. Dr. Botello is recommending dialysis. Blood pressure is better controlled today. 01/04: Patient remains on insulin drip. Her weight is up 3-1/2 kg today with minimal urine output. BUN is now 53 and creatinine 4.01 with hemoglobin 7.8. Capillary blood glucoses running in the 300s and Lantus will be increased to [address] Levy is on consult and patient underwent permacath placement right femoral artery this morning. BiPAP was required last evening. Pulse ox is now 93% on 5 L. 01/05: Lasix changed to 80 mg orally twice daily. Weight is up 4.2 kg today. Patient has been started on Aranesp. Heart rate is in the low 100s. Acute hepatitis panel was negative. She states she had an episode of chest pain last night but none at this time. Her shortness of breath is continued but is improved from yesterday. Dr. Hernandez has ordered Ferrlecit for 4 doses. 01/06 . Patient's currently on dialysis regimen today, 2-3 L would be taken out today to dialysis, patient's mentation fluctuates however she is more lucid side , sleep is still broken, melatonin would be started today. Last night she had gone into respiratory distress, additional Lasix was given 80 mg, and required BiPAP treatments with improvement of dyspnea 01/07: Patient currently is resting without any complaints, no shortness of breath and difficulty breathing she is however breathing easily, no events overnight, vitals are stable hemodialysis catheter for permanent placement performed yesterday from by Dr. Levy. Xanax has helped with some situational anxiety. eliquis will be restarted today. IV heparin would be discontinued 01/08. Discussed with Dr. Botello, plans for outpatient dialysis, dialysis CT would be needed to be made for Monday, physical therapy and endurance needs improve, patient's currently to person assist with physical therapy evaluation, social work been consulted, most likely would need subacute rehabilitation 01/09: During the night the patient developed some difficulty breathing, she was started on BiPAP. Patient went for dialysis this morning and had 2 L taken off. The patient this morning was noted to be difficult to arouse and hypotensive with a blood pressure of 78/43. She was started back on BiPAP and transferred to the ICU. Repeat hemoglobin was 8, and WBC noted to be elevated at 24.5. Repeat chest x-ray was done and showed bilateral infiltrate and small effusion most likely due to mild venous congestion. She did have a slight increase in her troponin 0.144. Blood cultures still pending. Cardiology, nephrology, and pulmonology on consult. 01/10: Patient was seen and evaluated today, she was noted to be sitting up in her bed, with her family at the bedside. The patient was awake and alert, she had BiPAP in place all last night, currently she is on nasal cannula and doing much better. Her hemoglobin remaines stable at 7.2. Her blood pressure has improved and she is no longer hypotensive. Her repeat chest x-ray shows fluid volume overload. The plan is to receive dialysis today. 01/11: Patient was noted to be sitting up in her bed resting comfortably. She is awake and alert and answering questions appropriately. She did have dialysis yesterday with no complications. Repeat chest x-ray shows improvement in patient's volume status. Patient did receive 1 unit of packed RBCs and Aranesp at dialysis yesterday. Patient's hemoglobin is now 8.9. Blood cultures still pending but show no growth to date. Blood pressure remains stable. Overall her condition is improving, she'll be moved out of the ICU today. 01/12: Patient's repeat chest x-ray shows improvement in the patient's volume status. Is currently off BiPAP maintaining good O2 saturations, will now continue BiPAP as needed. Anemia has improved she received a blood transfusion and 3 doses of iron IV. Hemoglobin today is 9.8. Lasix was changed to 80 mg twice a day. Blood pressure has also improved she has had no further episodes of hypotension. Overall her condition is improving. We'll plan for PT OT evaluation today, plans for subacute rehab upon discharge. Objective - Vital Signs Vital signs: Vital Signs Temp 97.0 F L 01/12/17 07:00 Pulse 81 01/12/17 07:00 Resp 19 01/12/17 07:00 BP 131/61 01/12/17 07:00 Pulse Ox 99 01/12/17 07:00 Intake & Output 01/11/17 01/12/17 01/12/17 18:59 06:59 18:59 Intake Total 600 Output Total 21 Balance -21 600 Weight 91.8 kg 93 kg Intake: Oral 600 Output: Urine 20 Stool 1 Other: Voiding Method Indwelling Catheter # Voids 0 0 # Bowel Movements 0 - Exam - Constitutional General appearance: Present: cooperative, no acute distress - EENT Eyes: Present: anicteric sclerae, poor dentition ENT: Present: NA/AT, normal oropharynx - Respiratory Respiratory: bilateral: diminished, rales - Cardiovascular Rhythm: regular Heart sounds: normal: S1, S2 Abnormal Heart Sounds: Present: systolic murmur - Gastrointestinal General gastrointestinal: Present: normal bowel sounds, soft - Integumentary Integumentary: Present: decreased turgor, normal - Neurologic Neurologic: Present: CNII-XII intact - Musculoskeletal Musculoskeletal: Present: generalized weakness, strength equal bilaterally - Psychiatric Psychiatric: Present: A&O x's 3, appropriate affect - Labs CBC & Chem 7: 01/12/17 08:13 01/12/17 08:13 Labs: Abnormal Lab Results - Last 24 Hours (Table) 01/11/17 01/11/17 01/11/17 Range/Units 12:40 16:42 21:12 WBC (3.8-10.6) k/uL RBC (3.80-5.40) m/uL Hgb (11.4-16.0) gm/dL Hct (34.0-46.0) % RDW (11.5-15.5) % Neutrophils # (1.3-7.7) k/uL Potassium (3.5-5.1) mmol/L Creatinine (0.52-1.04) mg/dL Glucose (74-99) mg/dL POC Glucose (mg/dL) 209 H 263 H 110 H (75-99) mg/dL 01/12/17 01/12/17 01/12/17 Range/Units 07:07 08:13 08:13 WBC 10.8 H (3.8-10.6) k/uL RBC 3.25 L (3.80-5.40) m/uL Hgb 9.8 L (11.4-16.0) gm/dL Hct 31.0 L (34.0-46.0) % RDW 19.9 H (11.5-15.5) % Neutrophils # 8.2 H (1.3-7.7) k/uL Potassium 3.3 L (3.5-5.1) mmol/L Creatinine 2.52 H (0.52-1.04) mg/dL Glucose 140 H (74-99) mg/dL POC Glucose (mg/dL) 123 H (75-99) mg/dL Microbiology - Last 24 Hours (Table) 01/05/17 21:20 Blood Culture - Final Blood No Growth after 144 hours 01/10/17 02:15 Urine Culture - Final Urine,Catheterized Assessment and Plan Plan: 1. Acute hypoxic respiratory failure secondary to acute on chronic diastolic heart failure, COPD exacerbation, moderate aortic stenosis. Continue Lasix, Imdur 30 mg, Toprol-XL 150 mg, hydralazine 25 mg, and nifedipine. Input and output and daily weight, cardiology on consultation. 2. Tooth abscess in the right lower jaw. Continue Augmentin 500 mg orally twice every day. 3. Acute kidney injury with chronic kidney disease stage IV. Lasix oral. Nephrology following. Patient on dialysis. 4. Accelerated hypertension. Continue metoprolol 100 mg orally once every day. 5. Paroxysmal atrial fibrillation. Continue amiodarone 100 mg orally once every day, Eliquis 2.5 mg orally twice every day. 6. Morbid obesity with BMI of 39. 7. Hyperkalemia secondary to chronic renal failure . Resolved. 8. Diabetes mellitus type 2 . Continue Lantus 36 units at bedtime along with a sliding scale insulin. 9. GERD. Continue omeprazole 20 mg orally once every day. 10. Hypertension, hypertensive cardiovascular disease. Continue hydralazine 25 mg orally twice every day, Toprol-XL 150 mg orally once every day 11. History of myocardial infarction and coronary artery disease. Continue aspirin 81 mg once every day, Toprol-XL 150 mg orally once every day, Imdur 30 mg orally once every day, Zetia 10 mg orally once every day. 12. Hyperlipidemia. Continue Zetia 10mg daily 13. Diabetic peripheral neuropathy and neuropathy secondary to chronic back pain. Continue gabapentin 300 mg orally twice every day. 14. Depression, recurrent. Continue Cymbalta 60 mg orally once every day. 15. DVT prophylaxis. Continue patient on Eliquis 2.5 mg orally twice every day as well as bilateral knee-high TERRIE hose. 16. Gastrointestinal. Continue patient on PPI. 17. Anemia of chronic kidney disease. Patient received 1 unit of RBCs and Aranesp, hemoglobin stable, will continue to monitor CBC closely. 18. Altered mental status due to hypotension, acute renal failure and metabolic encephalopathy. Symptoms have improved we'll continue to monitor labs closely and monitor blood pressure, especially after dialysis. Currently hypotension has resolved, and patient's mental status is at baseline. Hypotension most likely due to dialysis, sepsis less likely patient is afebrile and cultures show no growth. CODE STATUS Full code. The above impression and plan of care have been discussed and directed by signing physician. Jossie Negron nurse practitioner acting as scribe for signing physician.
--- NOTE | 2017-01-12 10:11 | CDI ---
In responding to this query, please exercise your independent professional judgment. The [facility] Coding Staff and Clinical Documentation Specialists appreciate your assistance in clarifying documentation, maintaining compliance with coding guidelines, accurately documenting patients condition and capturing severity of illness. The fact that a question is asked does not imply that any particular answer is desired or expected. Communication forms are a method of clarifying documentation and are not made part of the Legal Health Record. Thank you in advance for your clarification. Last Revision, June 2015 Susanna Nolen [address] [place] [address] Documentation Clarification Form Date: 01/12/2017 9:45:00 AM From: Ashlee Naqvi Admit Date: 12/31/2016 1:28:00 PM Patient Name: Hayley Corrigan Visit Number: [id number] Dr. Neville Robertson/Jossie Negron CNP Hypotension is documented in the progress notes and requires further specificity. History/Risk Factors: Atrial Fib, CAD s/p ID, chronic heart failure, CKD Stage 4 Clinical Indicators: 01/10 Pulmonary Consult: "1 Altered mental status secondary to hypotension and acute respiratory failure requiring BiPAP support." 01/09 Attending Progress Note: "During the night the patient developed some difficulty breathing, she was started on BiPAP. Patient went for dialysis this morning and had 2 L taken off. The patient this morning was noted to be difficult to arouse and hypotensive with a blood pressure of 78/43. She was started back on BiPAP and transferred to the ICU. Repeat hemoglobin was 8, and WBC noted to be elevated at 24.5. Repeat chest x-ray was done and showed bilateral infiltrate and small effusion most likely due to mild venous congestion. She did have a slight increase in her troponin 0.144. Blood cultures still pending. All blood pressure medications held due to hypotension. " Patients B/P: 78/43 Labs: Hgb 7.1/8/7.2/8.9, BUN 38/48/30/27, creatinine 4.7/2.6/3.9/3, troponin .144, BNP 09322 Treatment: BiPAP HD In your professional opinion, can you please specify the etiology of the hypotension if known? Iatrogenic Hypotension Hypovolemic Shock Idiopathic Hypotension Drug Induced Hypotension Hypotension due to hemodialysis Septic Shock Other Condition, please specify Unable to determine Please document in your progress notes and discharge summary in order to capture severity of illness and risk of mortality. Include clinical findings that support your diagnosis. FYI: Press F11 to launch patient chart Place X here if this finding has no clinical significance, is not applicable or if you are not able to provide any additional documentation. BRIGHTD
--- NOTE | 2017-01-12 11:13 | P.PN ---
Subjective Progress note dated 01/12/2017 This 71-year-old female was moved out of the intensive care unit on 913. She is doing much better. Much more awake and alert. She had hemodialysis 3 days in a row. Probably will not have hemodialysis today according to the mortar mixer operator. She's not been using BiPAP. Feeling much improved. Her blood pressure is been better in her mental status has improved. She stable otherwise. This is why she was moved out of the ICU. Objective - Vital Signs Vital signs: Vital Signs Temp 97.0 F L 01/12/17 07:00 Pulse 81 01/12/17 07:00 Resp 19 01/12/17 07:00 BP 131/61 01/12/17 07:00 Pulse Ox 99 01/12/17 07:00 Intake & Output 01/11/17 01/12/17 01/12/17 18:59 06:59 18:59 Intake Total 600 Output Total 21 Balance -21 600 Weight 91.8 kg 93 kg Intake: Oral 600 Output: Urine 20 Stool 1 Other: Voiding Method Indwelling Catheter # Voids 0 0 # Bowel Movements 0 - Exam No acute distress, oriented 3. A bit sleepy still. We did await her when we walked into the room. HEENT examination is grossly unremarkable. Nasal O2 in place. Neck supple. Full range of motion. No adenopathy or thyromegaly. Neck veins are flat. Cardio vascular examination reveals regular rhythm rate. S1-S2 normal. No S3- S4. No murmur. Lungs reveal mostly clear breath sounds. No wheezes or rhonchi. No crackles. Breath sounds are equal. Abdomen obese bowel sounds are heard. Extremities are intact. Minimal edema. No cyanosis or clubbing. Skin without rash. Neurologic examination is nonfocal. - Labs CBC & Chem 7: 01/12/17 08:13 01/12/17 08:13 Labs: Abnormal Lab Results - Last 24 Hours (Table) 01/11/17 01/11/17 01/11/17 Range/Units 12:40 16:42 21:12 WBC (3.8-10.6) k/uL RBC (3.80-5.40) m/uL Hgb (11.4-16.0) gm/dL Hct (34.0-46.0) % RDW (11.5-15.5) % Neutrophils # (1.3-7.7) k/uL Potassium (3.5-5.1) mmol/L Creatinine (0.52-1.04) mg/dL Glucose (74-99) mg/dL POC Glucose (mg/dL) 209 H 263 H 110 H (75-99) mg/dL 01/12/17 01/12/17 01/12/17 Range/Units 07:07 08:13 08:13 WBC 10.8 H (3.8-10.6) k/uL RBC 3.25 L (3.80-5.40) m/uL Hgb 9.8 L (11.4-16.0) gm/dL Hct 31.0 L (34.0-46.0) % RDW 19.9 H (11.5-15.5) % Neutrophils # 8.2 H (1.3-7.7) k/uL Potassium 3.3 L (3.5-5.1) mmol/L Creatinine 2.52 H (0.52-1.04) mg/dL Glucose 140 H (74-99) mg/dL POC Glucose (mg/dL) 123 H (75-99) mg/dL Microbiology - Last 24 Hours (Table) 01/05/17 21:20 Blood Culture - Final Blood No Growth after 144 hours 01/10/17 02:15 Urine Culture - Final Urine,Catheterized Assessment and Plan (1) Mental status change Status: Acute (2) Hypotension Status: Acute (3) CAD (coronary artery disease) Status: Acute (4) COPD (chronic obstructive pulmonary disease) Status: Acute (5) Diabetes Status: Acute (6) HTN (hypertension) Status: Acute (7) Hyperlipemia Status: Acute (8) Kidney disease, chronic, stage IV (GFR 15-29 ml/min) Status: Acute (9) Moderate aortic stenosis Status: Acute (10) Obesity Status: Acute (11) Paroxysmal a-fib Status: Acute (12) Pulmonary edema, acute Status: Acute (13) ACS (acute coronary syndrome) Status: Acute (14) Accelerated hypertension Status: Acute (15) Acute exacerbation of chronic obstructive airways disease Status: Acute (16) Chronic kidney disease Status: Acute (17) Congestive heart failure Status: Acute (18) Diabetes mellitus Status: Acute (19) Obesity Status: Acute Plan: Plan dated 01/09/2017 The patient's medications labs and x-rays are reviewed. X-rays consistent with mild CHF. We'll maintain her on the BiPAP for now. We'll review her labs and medications. We'll put her under aspiration precautions. Head of bed elevated all times. The patient's medications are reviewed. Reviewed M with DC any sedatives hypnotics tranquilizers or narcotics. Plan dated 01/12/2017 The patient was doing very well yesterday we moved her out of the intensive care unit to the floor. Spoke to the mortar mixer operator. The patient will not have dialysis today. She's had dialysis 3 days in a row. Chest x-ray initially showed fluid overload/heart failure. We did discontinue any sedatives hypnotics tranquilizers and narcotics because initially in addition to hypotension, she had mental status changes. That is all improved. Probably some of the mental status changes related to drugs and some related to uremic encephalopathy. Time with Patient: Less than 30
[2017-01-12] MEDS ORDERED: POTASSIUM CHLORIDE ER 20 MEQ TAB.ER PO STA (11:16)
--- NOTE | 2017-01-12 11:16 | P.PN ---
Subjective Patient is seen in follow-up for end-stage renal disease. She was started on hemodialysis this admission. She underwent hemodialysis yesterday. Patient was also noted to be anemic and had a blood transfusion with improvement in hemoglobin. She is currently resting in bed. Dyspnea is significantly improved. No vomiting or diarrhea. Oral intake is also gradually improving. Hemoglobin 9.8 this morning. Vital signs are stable. General: The patient appeared well nourished and normally developed. HEENT: Head exam is unremarkable. Neck is without jugular venous distension. LUNGS: Lungs are clear to auscultation and percussion. Breath sounds decreased. HEART: Rate and Rhythm are regular. First and second heart sounds normal. No murmurs, rubs or gallops. ABDOMEN: Abdominal exam reveals normal bowel sounds. Non-tender and non- distended. No evidence of peritonitis. EXTREMITITES: No clubbing, cyanosis, or edema. Objective - Vital Signs Vital signs: Vital Signs Temp 97.0 F L 01/12/17 07:00 Pulse 81 01/12/17 07:00 Resp 19 01/12/17 07:00 BP 131/61 01/12/17 07:00 Pulse Ox 99 01/12/17 07:00 Intake & Output 01/11/17 01/12/17 01/12/17 18:59 06:59 18:59 Intake Total 600 Output Total 21 Balance -21 600 Weight 91.8 kg 93 kg Intake: Oral 600 Output: Urine 20 Stool 1 Other: Voiding Method Indwelling Catheter # Voids 0 0 # Bowel Movements 0 - Labs CBC & Chem 7: 01/12/17 08:13 01/12/17 08:13 Labs: Abnormal Lab Results - Last 24 Hours (Table) 01/11/17 01/11/17 01/11/17 Range/Units 12:40 16:42 21:12 WBC (3.8-10.6) k/uL RBC (3.80-5.40) m/uL Hgb (11.4-16.0) gm/dL Hct (34.0-46.0) % RDW (11.5-15.5) % Neutrophils # (1.3-7.7) k/uL Potassium (3.5-5.1) mmol/L Creatinine (0.52-1.04) mg/dL Glucose (74-99) mg/dL POC Glucose (mg/dL) 209 H 263 H 110 H (75-99) mg/dL 01/12/17 01/12/17 01/12/17 Range/Units 07:07 08:13 08:13 WBC 10.8 H (3.8-10.6) k/uL RBC 3.25 L (3.80-5.40) m/uL Hgb 9.8 L (11.4-16.0) gm/dL Hct 31.0 L (34.0-46.0) % RDW 19.9 H (11.5-15.5) % Neutrophils # 8.2 H (1.3-7.7) k/uL Potassium 3.3 L (3.5-5.1) mmol/L Creatinine 2.52 H (0.52-1.04) mg/dL Glucose 140 H (74-99) mg/dL POC Glucose (mg/dL) 123 H (75-99) mg/dL Microbiology - Last 24 Hours (Table) 01/05/17 21:20 Blood Culture - Final Blood No Growth after 144 hours 01/10/17 02:15 Urine Culture - Final Urine,Catheterized Assessment and Plan Plan: Assessment: #1. End-stage renal disease started on hemodialysis this admission. She underwent hemodialysis yesterday. She has a permacath in place. #2. Anemia status post blood transfusion on January 10. Hemoglobin improved. Also status post 3 doses of IV iron. #3. Volume overload. Improved postdialysis. #4. Hyperphosphatemia secondary to chronic kidney disease. #5. Insulin-dependent diabetes mellitus. #6. Hypertension with chronic kidney disease. Controlled. #7. Hypokalemia due to diuresis and dialysis with a low potassium bath. Magnesium replete. Plan: Continue Lasix 80 mg orally twice daily. Hemodialysis tomorrow with goal 2 liters ultrafiltration. fire safety manager on board to help facilitate outpatient hemodialysis set up. Maintain Aranesp. Replace potassium. 40 mEq today. Patient is interested in peritoneal dialysis in the future. Will discuss as an outpatient.
[2017-01-12 12:24] LABS: Glucose,Whole Blood 358 mg/dL (75-99)
[2017-01-12 17:14] LABS: Glucose,Whole Blood 211 mg/dL (75-99)
[2017-01-12 20:30] LABS: Glucose,Whole Blood 237 mg/dL (75-99)
[2017-01-12] MEDS: IPRATROPIUM-ALBUTEROL 3 ML NEB INHALATION PRN (20:31)
[2017-01-12] MEDS: ASPIRIN 81 MG PO SCH (22:06)
[2017-01-12] MEDS: MAGNESIUM OXIDE 400 MG TAB PO SCH (22:07)
[2017-01-12] MEDS: INSULIN GLARGINE 100 UNIT/ML 10 ML VIAL SQ SCH (22:20)
[2017-01-13 07:16] LABS: Glucose,Whole Blood 148 mg/dL (75-99)
[2017-01-13] MEDS: INSULIN LISPRO (humaLOG) 300 UNIT/3 ML VIAL SQ SCH ×3 (08:00→17:05)
[2017-01-13 08:18] LABS: Anisocytosis Slight; Basophils # (A) 0.1 k/uL (0-0.2); Basophils % (A) 1 %; CH 29.6; CHCM 31.3; Eosinophils # (A) 0.4 k/uL (0-0.7); Eosinophils % (A) 3 %; HCT 27.6 % (34.0-46.0); HDW 3.57; HGB 8.9 gm/dL (11.4-16.0); Hypochromasia Moderate; Luc # (Auto) 0.29; Luc % (Auto) 3; Lymphocytes # (A) 1.7 k/uL (1.0-4.8); Lymphocytes % (A) 15 %; MCH 30.8 pg (25.0-35.0); MCHC 32.2 g/dL (31.0-37.0); MCV 95.7 fL (80.0-100.0); Macrocytosis Slight; Mean Platelet Volume 8.3; Monocytes # (A) 0.7 k/uL (0-1.0); Monocytes % (A) 7 %; Neutrophils % (A) 72 %; Poikilocytosis Slight; RBC 2.89 m/uL (3.80-5.40); RDW 18.4 % (11.5-15.5); WBC 11.2 k/uL (3.8-10.6); WBC (Perox) 11.92
[2017-01-13] MEDS: AMOXIC-POT CLAV 500-125 MG 1 EACH TAB PO SCH (08:26)
[2017-01-13] MEDS: CALCIUM ACETATE 667 MG CAP PO SCH ×3 (08:26→17:04)
[2017-01-13] MEDS: CHOLECALCIFEROL 1,000 UNIT TAB PO SCH (08:27)
[2017-01-13] MEDS: DULoxetine HCL 60 MG CAPSULE.DR PO SCH (08:27)
[2017-01-13] MEDS: FUROSEMIDE 80 MG TAB PO SCH ×2 (08:27→17:04)
[2017-01-13] MEDS: APIXABAN 2.5 MG TABLET PO SCH (08:27)
[2017-01-13] MEDS: EZETIMIBE 10 MG TAB PO SCH (08:27)
[2017-01-13] MEDS: PANTOPRAZOLE 40 MG TABLET PO SCH (08:27)
[2017-01-13] MEDS: GABAPENTIN 300 MG CAP PO SCH (08:27)
[2017-01-13] MEDS: ISOSORBIDE MONONITRATE ER 30 MG TAB.ER.24H PO SCH (08:28)
[2017-01-13] MEDS: METOPROLOL SUCCINATE (ER) 50 MG TAB.ER.24H PO SCH (08:28)
[2017-01-13] MEDS: hydrALAZINE HCL 25 MG TAB PO SCH (08:28)
[2017-01-13 08:32] LABS: Calcium 8.4 mg/dL (8.4-10.2); Magnesium 2.1 mg/dL (1.6-2.3); Phosphorous 3.8 mg/dL (2.5-4.5); Potassium 3.5 mmol/L (3.5-5.1)
--- NOTE | 2017-01-13 10:38 | P.PN ---
Subjective This is a 71-year-old female patient of Dr. Garcia with past medical history of atrial fibrillation, coronary artery disease status post myocardial infarction, chronic heart failure, diabetes mellitus type 2, hyperlipidemia, hypertension, chronic kidney disease stage IV, peripheral neuropathy.patient was recently hospitalized at [facility] in 2016 and she was discharged on 12/29/2016 after she was treated for acute diastolic heart failure and tooth abscess for which she was started on IV antibiotic initially and subsequent she was switched to oral Augmentin and she was placed back on her Eliquis, she was given instruction to stop the Eliquis for 48 hours prior to pulling her tooth next week. Patient was doing fine up until yesterday when she developed to have an increased shortness breath and she ended up coming to the ER at [facility] again with significant shortness of breath, she was suggestive of pulmonary edema and she was quite tight in her chest she was admitted to the hospital for evaluation bipolar medicine cardiology was started on Lasix 40 mg IV push every 8 hours, pulmonary as stated earlier and cardiology consultation were obtained. 01/01: Patient remains on Lasix 40 mg IV every 12 hours. Weight is down 1.8 kg. Nebulizer helped her with breathing yesterday. She continues to have wheezing in Pulmicort added. BUN is 43 with creatinine of 2.8. Blood pressure is on the high side for which hydralazine increased to 50 mg twice daily. Repeat troponins were 0.013 and 0.079. Cardiology is on consult. 01/02: Dr. Delacruz has evaluated the patient and medication changes were made for hypertension. He has resumed her back on Procardia. Dr. Guardado has seen the patient and increase Lasix to 100 mg every 8 hours yesterday and today switched to lasix drip. Today BUN is 42 and creatinine 3.01. Patient's weight is down 0.4 kg from yesterday. She is complaining of shortness of breath, little cough and feeling tired. 01/03: Documented weight today is 2 kg higher than yesterday. Renal numbers are higher today with a BUN of 48 and creatinine 3.4. She is currently on Lasix drip. Dr. Botello is recommending dialysis. Blood pressure is better controlled today. 01/04: Patient remains on insulin drip. Her weight is up 3-1/2 kg today with minimal urine output. BUN is now 53 and creatinine 4.01 with hemoglobin 7.8. Capillary blood glucoses running in the 300s and Lantus will be increased to [address] Levy is on consult and patient underwent permacath placement right femoral artery this morning. BiPAP was required last evening. Pulse ox is now 93% on 5 L. 01/05: Lasix changed to 80 mg orally twice daily. Weight is up 4.2 kg today. Patient has been started on Aranesp. Heart rate is in the low 100s. Acute hepatitis panel was negative. She states she had an episode of chest pain last night but none at this time. Her shortness of breath is continued but is improved from yesterday. Dr. Hernandez has ordered Ferrlecit for 4 doses. 01/06 . Patient's currently on dialysis regimen today, 2-3 L would be taken out today to dialysis, patient's mentation fluctuates however she is more lucid side , sleep is still broken, melatonin would be started today. Last night she had gone into respiratory distress, additional Lasix was given 80 mg, and required BiPAP treatments with improvement of dyspnea 01/07: Patient currently is resting without any complaints, no shortness of breath and difficulty breathing she is however breathing easily, no events overnight, vitals are stable hemodialysis catheter for permanent placement performed yesterday from by Dr. Levy. Xanax has helped with some situational anxiety. eliquis will be restarted today. IV heparin would be discontinued 01/08. Discussed with Dr. Botello, plans for outpatient dialysis, dialysis CT would be needed to be made for Monday, physical therapy and endurance needs improve, patient's currently to person assist with physical therapy evaluation, social work been consulted, most likely would need subacute rehabilitation 01/09: During the night the patient developed some difficulty breathing, she was started on BiPAP. Patient went for dialysis this morning and had 2 L taken off. The patient this morning was noted to be difficult to arouse and hypotensive with a blood pressure of 78/43. She was started back on BiPAP and transferred to the ICU. Repeat hemoglobin was 8, and WBC noted to be elevated at 24.5. Repeat chest x-ray was done and showed bilateral infiltrate and small effusion most likely due to mild venous congestion. She did have a slight increase in her troponin 0.144. Blood cultures still pending. Cardiology, nephrology, and pulmonology on consult. 01/10: Patient was seen and evaluated today, she was noted to be sitting up in her bed, with her family at the bedside. The patient was awake and alert, she had BiPAP in place all last night, currently she is on nasal cannula and doing much better. Her hemoglobin remaines stable at 7.2. Her blood pressure has improved and she is no longer hypotensive. Her repeat chest x-ray shows fluid volume overload. The plan is to receive dialysis today. 01/11: Patient was noted to be sitting up in her bed resting comfortably. She is awake and alert and answering questions appropriately. She did have dialysis yesterday with no complications. Repeat chest x-ray shows improvement in patient's volume status. Patient did receive 1 unit of packed RBCs and Aranesp at dialysis yesterday. Patient's hemoglobin is now 8.9. Blood cultures still pending but show no growth to date. Blood pressure remains stable. Overall her condition is improving, she'll be moved out of the ICU today. 01/12: Patient's repeat chest x-ray shows improvement in the patient's volume status. Is currently off BiPAP maintaining good O2 saturations, will now continue BiPAP as needed. Anemia has improved she received a blood transfusion and 3 doses of iron IV. Hemoglobin today is 9.8. Lasix was changed to 80 mg twice a day. Blood pressure has also improved she has had no further episodes of hypotension. Overall her condition is improving. We'll plan for PT OT evaluation today, plans for subacute rehab upon discharge. 01/13: Patient is noted to be in bed resting comfortably, today she was seen and evaluated. Overall she is doing much better, she was moved out of the ICU, she is no longer needing BiPAP, she reports she is feeling much better. Her mental status and hypotension have improved as well. Last hemoglobin was 9.8. She has received dialysis 3 days in a row. No dialysis is scheduled for today, she'll continue with dialysis upon discharge. Currently social work is working with family and patient to find ECF placement and outpatient dialysis. Objective - Vital Signs Vital signs: Vital Signs Temp 96.8 F L 01/13/17 07:00 Pulse 77 01/13/17 07:00 Resp 16 01/13/17 07:00 BP 113/51 01/13/17 07:00 Pulse Ox 95 01/13/17 07:00 Intake & Output 01/12/17 01/13/17 01/13/17 18:59 06:59 18:59 Output Total 0 Balance 0 Weight 91.5 kg Output: Urine 0 Other: # Voids 1 0 # Bowel Movements 0 - Exam - Constitutional General appearance: Present: cooperative, no acute distress - EENT Eyes: Present: anicteric sclerae, poor dentition ENT: Present: NA/AT, normal oropharynx - Respiratory Respiratory: bilateral: diminished, rales - Cardiovascular Rhythm: regular Heart sounds: normal: S1, S2 Abnormal Heart Sounds: Present: systolic murmur - Gastrointestinal General gastrointestinal: Present: normal bowel sounds, soft - Integumentary Integumentary: Present: decreased turgor, normal - Neurologic Neurologic: Present: CNII-XII intact - Musculoskeletal Musculoskeletal: Present: generalized weakness, strength equal bilaterally - Psychiatric Psychiatric: Present: A&O x's 3, appropriate affect - Labs CBC & Chem 7: 01/13/17 07:56 01/13/17 07:56 Labs: Abnormal Lab Results - Last 24 Hours (Table) 01/12/17 01/12/17 01/12/17 Range/Units 08:13 12:23 17:06 WBC (3.8-10.6) k/uL RBC (3.80-5.40) m/uL Hgb (11.4-16.0) gm/dL Hct (34.0-46.0) % RDW (11.5-15.5) % Neutrophils # (1.3-7.7) k/uL Sodium (137-145) mmol/L Potassium 3.3 L (3.5-5.1) mmol/L BUN (7-17) mg/dL Creatinine 2.52 H (0.52-1.04) mg/dL Glucose 140 H (74-99) mg/dL POC Glucose (mg/dL) 358 H 211 H (75-99) mg/dL 01/12/17 01/13/17 01/13/17 Range/Units 20:27 07:08 07:56 WBC 11.2 H (3.8-10.6) k/uL RBC 2.89 L (3.80-5.40) m/uL Hgb 8.9 L (11.4-16.0) gm/dL Hct 27.6 L (34.0-46.0) % RDW 18.4 H (11.5-15.5) % Neutrophils # 8.0 H (1.3-7.7) k/uL Sodium (137-145) mmol/L Potassium (3.5-5.1) mmol/L BUN (7-17) mg/dL Creatinine (0.52-1.04) mg/dL Glucose (74-99) mg/dL POC Glucose (mg/dL) 237 H 148 H (75-99) mg/dL 01/13/17 Range/Units 07:56 WBC (3.8-10.6) k/uL RBC (3.80-5.40) m/uL Hgb (11.4-16.0) gm/dL Hct (34.0-46.0) % RDW (11.5-15.5) % Neutrophils # (1.3-7.7) k/uL Sodium 135 L (137-145) mmol/L Potassium (3.5-5.1) mmol/L BUN 28 H (7-17) mg/dL Creatinine 3.91 H (0.52-1.04) mg/dL Glucose 162 H (74-99) mg/dL POC Glucose (mg/dL) (75-99) mg/dL Assessment and Plan Plan: 1. Acute hypoxic respiratory failure secondary to acute on chronic diastolic heart failure, COPD exacerbation, moderate aortic stenosis. Symptoms have resolved, patient no longer needs BiPAP. Continue Lasix, Imdur 30 mg, Toprol- XL 150 mg, hydralazine 25 mg, and nifedipine. Input and output and daily weight , cardiology on consultation. 2. Tooth abscess in the right lower jaw. Continue Augmentin 500 mg orally twice every day. 3. Acute kidney injury with chronic kidney disease stage IV. Lasix oral. Nephrology following. Patient on dialysis, will require dialysis outpatient. 4. Accelerated hypertension. Continue metoprolol 100 mg orally once every day. 5. Paroxysmal atrial fibrillation. Continue amiodarone 100 mg orally once every day, Eliquis 2.5 mg orally twice every day. 6. Morbid obesity with BMI of 39. 7. Hyperkalemia secondary to chronic renal failure. Resolved. 8. Diabetes mellitus type 2 . Continue Lantus 36 units at bedtime along with a sliding scale insulin. 9. GERD. Continue omeprazole 20 mg orally once every day. 10. Hypertension, hypertensive cardiovascular disease. Continue hydralazine 25 mg orally twice every day, Toprol-XL 150 mg orally once every day 11. History of myocardial infarction and coronary artery disease. Continue aspirin 81 mg once every day, Toprol-XL 150 mg orally once every day, Imdur 30 mg orally once every day, Zetia 10 mg orally once every day. 12. Hyperlipidemia. Continue Zetia 10mg daily 13. Diabetic peripheral neuropathy and neuropathy secondary to chronic back pain. Continue gabapentin 300 mg orally twice every day. 14. Depression, recurrent. Continue Cymbalta 60 mg orally once every day. 15. DVT prophylaxis. Continue patient on Eliquis 2.5 mg orally twice every day as well as bilateral knee-high TERRIE hose. 16. Gastrointestinal. Continue patient on PPI. 17. Anemia of chronic kidney disease. Patient received 1 unit of RBCs and Aranesp, hemoglobin stable, will continue to monitor CBC closely. 18. Altered mental status due to hypotension, acute renal failure and metabolic encephalopathy. Symptoms have improved we'll continue to monitor labs closely and monitor blood pressure, especially after dialysis. Currently hypotension has resolved, and patient's mental status is at baseline. Hypotension most likely due to dialysis, sepsis less likely patient is afebrile and cultures show no growth. CODE STATUS Full code. The above impression and plan of care have been discussed and directed by signing physician. Jossie Negron nurse practitioner acting as scribe for signing physician.
--- NOTE | 2017-01-13 10:52 | P.PN ---
Subjective Progress note dated 01/12/2017 This 71-year-old female was moved out of the intensive care unit on 913. She is doing much better. Much more awake and alert. She had hemodialysis 3 days in a row. Probably will not have hemodialysis today according to the room attendant. She's not been using BiPAP. Feeling much improved. Her blood pressure is been better in her mental status has improved. She stable otherwise. This is why she was moved out of the ICU. Progress note dated 01/13/2017 71-year-old female moved out of the intensive care unit. She's doing much better. Getting dialysis today. No dialysis yesterday. Dr. Manrique is following as well. The patient's feeling better. No major issues or problems. Breathing is improved. Chest x-ray showed a pattern of fluid overload. That' s improved. Her mental status is also improved. Blood pressures much better. No major complaints today. No chest pain chest discomfort. No cough no wheezing. No nausea vomiting or diarrhea. Objective - Vital Signs Vital signs: Vital Signs Temp 96.8 F L 01/13/17 07:00 Pulse 77 01/13/17 07:00 Resp 16 01/13/17 07:00 BP 113/51 01/13/17 07:00 Pulse Ox 95 01/13/17 07:00 Intake & Output 01/12/17 01/13/17 01/13/17 18:59 06:59 18:59 Output Total 0 Balance 0 Weight 91.5 kg Output: Urine 0 Other: # Voids 1 0 # Bowel Movements 0 - Exam No acute distress, oriented 3. A bit sleepy still. Currently receiving hemodialysis.. HEENT examination is grossly unremarkable. Nasal O2 in place. Neck supple. Full range of motion. No adenopathy or thyromegaly. Neck veins are flat. Cardio vascular examination reveals regular rhythm rate. S1-S2 normal. No S3- S4. No murmur. Lungs reveal mostly clear breath sounds. No wheezes or rhonchi. No crackles. Breath sounds are equal. Abdomen obese bowel sounds are heard. Extremities are intact. Minimal edema. No cyanosis or clubbing. Skin without rash. Neurologic examination is nonfocal. - Labs CBC & Chem 7: 01/13/17 07:56 01/13/17 07:56 Labs: Abnormal Lab Results - Last 24 Hours (Table) 01/12/17 01/12/17 01/12/17 Range/Units 12:23 17:06 20:27 WBC (3.8-10.6) k/uL RBC (3.80-5.40) m/uL Hgb (11.4-16.0) gm/dL Hct (34.0-46.0) % RDW (11.5-15.5) % Neutrophils # (1.3-7.7) k/uL Sodium (137-145) mmol/L BUN (7-17) mg/dL Creatinine (0.52-1.04) mg/dL Glucose (74-99) mg/dL POC Glucose (mg/dL) 358 H 211 H 237 H (75-99) mg/dL 01/13/17 01/13/17 01/13/17 Range/Units 07:08 07:56 07:56 WBC 11.2 H (3.8-10.6) k/uL RBC 2.89 L (3.80-5.40) m/uL Hgb 8.9 L (11.4-16.0) gm/dL Hct 27.6 L (34.0-46.0) % RDW 18.4 H (11.5-15.5) % Neutrophils # 8.0 H (1.3-7.7) k/uL Sodium 135 L (137-145) mmol/L BUN 28 H (7-17) mg/dL Creatinine 3.91 H (0.52-1.04) mg/dL Glucose 162 H (74-99) mg/dL POC Glucose (mg/dL) 148 H (75-99) mg/dL Assessment and Plan (1) Mental status change Status: Acute (2) Hypotension Status: Acute (3) CAD (coronary artery disease) Status: Acute (4) COPD (chronic obstructive pulmonary disease) Status: Acute (5) Diabetes Status: Acute (6) HTN (hypertension) Status: Acute (7) Hyperlipemia Status: Acute (8) Kidney disease, chronic, stage IV (GFR 15-29 ml/min) Status: Acute (9) Moderate aortic stenosis Status: Acute (10) Obesity Status: Acute (11) Paroxysmal a-fib Status: Acute (12) Pulmonary edema, acute Status: Acute (13) ACS (acute coronary syndrome) Status: Acute (14) Accelerated hypertension Status: Acute (15) Acute exacerbation of chronic obstructive airways disease Status: Acute (16) Chronic kidney disease Status: Acute (17) Congestive heart failure Status: Acute (18) Diabetes mellitus Status: Acute (19) Obesity Status: Acute Plan: Plan dated 01/09/2017 The patient's medications labs and x-rays are reviewed. X-rays consistent with mild CHF. We'll maintain her on the BiPAP for now. We'll review her labs and medications. We'll put her under aspiration precautions. Head of bed elevated all times. The patient's medications are reviewed. Reviewed M with DC any sedatives hypnotics tranquilizers or narcotics. Plan dated 01/12/2017 The patient was doing very well yesterday we moved her out of the intensive care unit to the floor. Spoke to the room attendant. The patient will not have dialysis today. She's had dialysis 3 days in a row. Chest x-ray initially showed fluid overload/heart failure. We did discontinue any sedatives hypnotics tranquilizers and narcotics because initially in addition to hypotension, she had mental status changes. That is all improved. Probably some of the mental status changes related to drugs and some related to uremic encephalopathy. Plan dated 01/13/2017 The patient is doing well. Chest x-rays improved. Respiratory status is improved. Hemodynamics are stable. Additional recommendations suggestions forthcoming. We'll see as needed. Some of the mental status changes likely related to many many other drugs she was on as well some uremic encephalopathy. Time with Patient: Less than 30
[2017-01-13 11:38] VITALS: BMI 36.8
[2017-01-13 12:18] LABS: Glucose,Whole Blood 109 mg/dL (75-99)
--- NOTE | 2017-01-13 13:07 | P.PN ---
Subjective Patient is seen in follow-up for end-stage renal disease. She was started on hemodialysis this admission. She underwent hemodialysis today. Patient was also noted to be anemic and had a blood transfusion with improvement in hemoglobin. She is currently resting in bed. Dyspnea is significantly improved. No vomiting or diarrhea. Oral intake is also gradually improving. Hemoglobin 8.9 this morning. Vital signs are stable. General: The patient appeared well nourished and normally developed. HEENT: Head exam is unremarkable. Neck is without jugular venous distension. LUNGS: Lungs are clear to auscultation and percussion. Breath sounds decreased. HEART: Rate and Rhythm are regular. First and second heart sounds normal. No murmurs, rubs or gallops. ABDOMEN: Abdominal exam reveals normal bowel sounds. Non-tender and non- distended. No evidence of peritonitis. EXTREMITITES: No clubbing, cyanosis, or edema. Objective - Vital Signs Vital signs: Vital Signs Temp 96.8 F L 01/13/17 07:00 Pulse 77 01/13/17 07:00 Resp 16 01/13/17 07:00 BP 113/51 01/13/17 07:00 Pulse Ox 95 01/13/17 07:00 Intake & Output 01/12/17 01/13/17 01/13/17 18:59 06:59 18:59 Output Total 0 Balance 0 Weight 91.5 kg 91.5 kg Output: Urine 0 Other: # Voids 1 0 # Bowel Movements 0 - Labs CBC & Chem 7: 01/13/17 07:56 01/13/17 07:56 Labs: Abnormal Lab Results - Last 24 Hours (Table) 01/12/17 01/12/17 01/13/17 Range/Units 17:06 20:27 07:08 WBC (3.8-10.6) k/uL RBC (3.80-5.40) m/uL Hgb (11.4-16.0) gm/dL Hct (34.0-46.0) % RDW (11.5-15.5) % Neutrophils # (1.3-7.7) k/uL Sodium (137-145) mmol/L BUN (7-17) mg/dL Creatinine (0.52-1.04) mg/dL Glucose (74-99) mg/dL POC Glucose (mg/dL) 211 H 237 H 148 H (75-99) mg/dL 01/13/17 01/13/17 01/13/17 Range/Units 07:56 07:56 12:13 WBC 11.2 H (3.8-10.6) k/uL RBC 2.89 L (3.80-5.40) m/uL Hgb 8.9 L (11.4-16.0) gm/dL Hct 27.6 L (34.0-46.0) % RDW 18.4 H (11.5-15.5) % Neutrophils # 8.0 H (1.3-7.7) k/uL Sodium 135 L (137-145) mmol/L BUN 28 H (7-17) mg/dL Creatinine 3.91 H (0.52-1.04) mg/dL Glucose 162 H (74-99) mg/dL POC Glucose (mg/dL) 109 H (75-99) mg/dL Assessment and Plan Plan: Assessment: #1. End-stage renal disease started on hemodialysis this admission. She underwent hemodialysis . today She has a permacath in place. #2. Anemia status post blood transfusion on January 10. Hemoglobin improved. Also status post 3 doses of IV iron. #3. Volume overload. Improved postdialysis. #4. Hyperphosphatemia secondary to chronic kidney disease. #5. Insulin-dependent diabetes mellitus. #6. Hypertension with chronic kidney disease. Controlled. #7. Hypokalemia due to diuresis and dialysis with a low potassium bath. Magnesium replete. Plan: Continue Lasix 80 mg orally twice daily. Next hemodialysis Monday (she will be maintained on a Monday schedule as an outpatient). Maintain Aranesp. Maintain PhosLo with meals. Patient is interested in peritoneal dialysis in the future. Will discuss as an outpatient.
[2017-01-13 14:36] VITALS: BP 106/98; PULSE 80; RESP 18; TEMP 96.7
[2017-01-13 16:46] LABS: Glucose,Whole Blood 214 mg/dL (75-99)
--- NOTE | 2017-01-13 17:07 | P.DS ---
Providers Date of admission: 12/31/16 13:28 Attending physician: Junie Dewey Consults: 12/31/16 13:28 Consult Physician Routine Consulting Provider: [facility] Consult Reason/Comments: Pulmonary edema Do you want consulting provider notified?: Yes 01/01/17 10:55 Consult Physician Routine Consulting Provider: Reji Guardado Consult Reason/Comments: CKD IV Do you want consulting provider notified?: Yes 01/03/17 12:18 Consult Physician Urgent Consulting Provider: Montez Levy Consult Reason/Comments: perma cath Do you want consulting provider notified?: Yes 01/09/17 10:54 Consult Physician Stat Consulting Provider: Slim Lee Consult Reason/Comments: decreased LOC,respiratory distress Do you want consulting provider notified?: Already Contacted Primary care physician: Meghan Garcia [facility] Course: Subjective This is a 71-year-old female patient of Dr. Garcia with past medical history of atrial fibrillation, coronary artery disease status post myocardial infarction, chronic heart failure, diabetes mellitus type 2, hyperlipidemia, hypertension, chronic kidney disease stage IV, peripheral neuropathy.patient was recently hospitalized at [facility] in 2016 and she was discharged on 12/29/2016 after she was treated for acute diastolic heart failure and tooth abscess for which she was started on IV antibiotic initially and subsequent she was switched to oral Augmentin and she was placed back on her Eliquis, she was given instruction to stop the Eliquis for 48 hours prior to pulling her tooth next week. Patient was doing fine up until yesterday when she developed to have an increased shortness breath and she ended up coming to the ER at [facility] again with significant shortness of breath, she was suggestive of pulmonary edema and she was quite tight in her chest she was admitted to the hospital for evaluation bipolar medicine cardiology was started on Lasix 40 mg IV push every 8 hours, pulmonary as stated earlier and cardiology consultation were obtained. 01/01: Patient remains on Lasix 40 mg IV every 12 hours. Weight is down 1.8 kg. Nebulizer helped her with breathing yesterday. She continues to have wheezing in Pulmicort added. BUN is 43 with creatinine of 2.8. Blood pressure is on the high side for which hydralazine increased to 50 mg twice daily. Repeat troponins were 0.013 and 0.079. Cardiology is on consult. 01/02: Dr. Delacruz has evaluated the patient and medication changes were made for hypertension. He has resumed her back on Procardia. Dr. Guardado has seen the patient and increase Lasix to 100 mg every 8 hours yesterday and today switched to lasix drip. Today BUN is 42 and creatinine 3.01. Patient's weight is down 0.4 kg from yesterday. She is complaining of shortness of breath, little cough and feeling tired. 01/03: Documented weight today is 2 kg higher than yesterday. Renal numbers are higher today with a BUN of 48 and creatinine 3.4. She is currently on Lasix drip. Dr. Botello is recommending dialysis. Blood pressure is better controlled today. 01/04: Patient remains on insulin drip. Her weight is up 3-1/2 kg today with minimal urine output. BUN is now 53 and creatinine 4.01 with hemoglobin 7.8. Capillary blood glucoses running in the 300s and Lantus will be increased to [address] Levy is on consult and patient underwent permacath placement right femoral artery this morning. BiPAP was required last evening. Pulse ox is now 93% on 5 L. 01/05: Lasix changed to 80 mg orally twice daily. Weight is up 4.2 kg today. Patient has been started on Aranesp. Heart rate is in the low 100s. Acute hepatitis panel was negative. She states she had an episode of chest pain last night but none at this time. Her shortness of breath is continued but is improved from yesterday. Dr. Hernandez has ordered Ferrlecit for 4 doses. 01/06 . Patient's currently on dialysis regimen today, 2-3 L would be taken out today to dialysis, patient's mentation fluctuates however she is more lucid side , sleep is still broken, melatonin would be started today. Last night she had gone into respiratory distress, additional Lasix was given 80 mg, and required BiPAP treatments with improvement of dyspnea 01/07: Patient currently is resting without any complaints, no shortness of breath and difficulty breathing she is however breathing easily, no events overnight, vitals are stable hemodialysis catheter for permanent placement performed yesterday from by Dr. Levy. Xanax has helped with some situational anxiety. eliquis will be restarted today. IV heparin would be discontinued 01/08. Discussed with Dr. Botello, plans for outpatient dialysis, dialysis CT would be needed to be made for Monday, physical therapy and endurance needs improve, patient's currently to person assist with physical therapy evaluation, social work been consulted, most likely would need subacute rehabilitation 01/09: During the night the patient developed some difficulty breathing, she was started on BiPAP. Patient went for dialysis this morning and had 2 L taken off. The patient this morning was noted to be difficult to arouse and hypotensive with a blood pressure of 78/43. She was started back on BiPAP and transferred to the ICU. Repeat hemoglobin was 8, and WBC noted to be elevated at 24.5. Repeat chest x-ray was done and showed bilateral infiltrate and small effusion most likely due to mild venous congestion. She did have a slight increase in her troponin 0.144. Blood cultures still pending. Cardiology, nephrology, and pulmonology on consult. 01/10: Patient was seen and evaluated today, she was noted to be sitting up in her bed, with her family at the bedside. The patient was awake and alert, she had BiPAP in place all last night, currently she is on nasal cannula and doing much better. Her hemoglobin remaines stable at 7.2. Her blood pressure has improved and she is no longer hypotensive. Her repeat chest x-ray shows fluid volume overload. The plan is to receive dialysis today. 01/11: Patient was noted to be sitting up in her bed resting comfortably. She is awake and alert and answering questions appropriately. She did have dialysis yesterday with no complications. Repeat chest x-ray shows improvement in patient's volume status. Patient did receive 1 unit of packed RBCs and Aranesp at dialysis yesterday. Patient's hemoglobin is now 8.9. Blood cultures still pending but show no growth to date. Blood pressure remains stable. Overall her condition is improving, she'll be moved out of the ICU today. 01/12: Patient's repeat chest x-ray shows improvement in the patient's volume status. Is currently off BiPAP maintaining good O2 saturations, will now continue BiPAP as needed. Anemia has improved she received a blood transfusion and 3 doses of iron IV. Hemoglobin today is 9.8. Lasix was changed to 80 mg twice a day. Blood pressure has also improved she has had no further episodes of hypotension. Overall her condition is improving. We'll plan for PT OT evaluation today, plans for subacute rehab upon discharge. 01/13: Patient is noted to be in bed resting comfortably, today she was seen and evaluated. Overall she is doing much better, she was moved out of the ICU, she is no longer needing BiPAP, she reports she is feeling much better. Her mental status and hypotension have improved as well. Last hemoglobin was 9.8. She has received dialysis 3 days in a row. No dialysis is scheduled for today, she'll continue with dialysis upon discharge. Currently social work is working with family and patient to find ECF placement and outpatient dialysis. Assessment and Plan Plan: 1. Acute hypoxic respiratory failure secondary to acute on chronic diastolic heart failure, COPD exacerbation, moderate aortic stenosis. Symptoms have resolved, patient no longer needs BiPAP. Continue Lasix, Imdur 30 mg, Toprol- XL 150 mg, hydralazine 25 mg, and nifedipine. Input and output and daily weight , cardiology on consultation. 2. Tooth abscess in the right lower jaw. Continue Augmentin 500 mg orally twice every day. 3. Acute kidney injury with chronic kidney disease stage IV. Lasix oral. Nephrology following. Patient on dialysis, will require dialysis outpatient. 4. Accelerated hypertension. Continue metoprolol 100 mg orally once every day. 5. Paroxysmal atrial fibrillation. Continue amiodarone 100 mg orally once every day, Eliquis 2.5 mg orally twice every day. 6. Morbid obesity with BMI of 39. 7. Hyperkalemia secondary to chronic renal failure. Resolved. 8. Diabetes mellitus type 2 . Continue Lantus 36 units at bedtime along with a sliding scale insulin. 9. GERD. Continue omeprazole 20 mg orally once every day. 10. Hypertension, hypertensive cardiovascular disease. Continue hydralazine 25 mg orally twice every day, Toprol-XL 150 mg orally once every day 11. History of myocardial infarction and coronary artery disease. Continue aspirin 81 mg once every day, Toprol-XL 150 mg orally once every day, Imdur 30 mg orally once every day, Zetia 10 mg orally once every day. 12. Hyperlipidemia. Continue Zetia 10mg daily 13. Diabetic peripheral neuropathy and neuropathy secondary to chronic back pain. Continue gabapentin 300 mg orally twice every day. 14. Depression, recurrent. Continue Cymbalta 60 mg orally once every day. 15. DVT prophylaxis. Continue patient on Eliquis 2.5 mg orally twice every day as well as bilateral knee-high TERRIE hose. 16. Gastrointestinal. Continue patient on PPI. 17. Anemia of chronic kidney disease. Patient received 1 unit of RBCs and Aranesp, hemoglobin stable, will continue to monitor CBC closely. 18. Altered mental status due to hypotension, acute renal failure and metabolic encephalopathy. Symptoms have improved we'll continue to monitor labs closely and monitor blood pressure, especially after dialysis. Currently hypotension has resolved, and patient's mental status is at baseline. Hypotension most likely due to dialysis, sepsis less likely patient is afebrile and cultures show no growth. Patient is doing well with hemodialysis, had lost quite bed weight with it. Tooth abscess still treated with Augmentin for total of 7 more days. Her blood pressure is well controlled lately. Next line patient still have significant problem with debility and mobility doing better with PTOT will need rehab. [place] arrangement for hemodialysis 3 times a week is done and patient hopefully will be going to rehab today 01/13/2017. Plan - Discharge Summary New Discharge Prescriptions: New Acetaminophen Tab [Tylenol] 650 mg PO Q6H PRN tab PRN Reason: Fever Amoxic-Pot Clav 500-125 mg [Augmentin 500-125 mg] 1 each PO DAILY 7 Days Calcium Acetate [PhosLo] 667 mg PO TID-W/MEALS cap Darbepoetin Aron [Aranesp] 40 mcg SQ Q7D syr Furosemide [Lasix] 80 mg PO BID@0900,1600 tab Insulin Glargine [Lantus] 36 unit SQ HS vial INSULIN LISPRO (humaLOG) [humaLOG (formulary)] 0 unit SQ ACHS vial Ipratropium-Albuterol Nebulize [Duoneb 0.5 mg-3 mg/3 ml Soln] 3 ml INHALATION RT-QID PRN neb PRN Reason: Wheezing Metoprolol Succinate (ER) [Toprol XL] 150 mg PO DAILY tab NIFEdipine XL [Procardia XL] 60 mg PO DAILY tab Continue DULoxetine HCL [Cymbalta] 60 mg PO DAILY Fish Oil/Dha/Epa [Fish Oil 1,200 mg Fish Oil] 1 cap PO MOWEFR Acetaminophen Tab [Tylenol] 650 mg PO Q6H PRN PRN Reason: Fever Amiodarone HCl [Pacerone] 100 mg PO DAILY Apixaban [Eliquis] 2.5 mg PO BID Aspirin EC [Ecotrin Low Dose] 81 mg PO HS Cetirizine HCl [Zyrtec] 10 mg PO DAILY Docusate [Colace] 100 mg PO BID Ezetimibe [Zetia] 10 mg PO DAILY Isosorbide Mononitrate ER [Imdur] 30 mg PO DAILY Magnesium Oxide [Mag-Ox] 400 mg PO HS Gabapentin [Neurontin] 300 mg PO BID #60 capsule Polyethylene Glycol 3350 [Miralax] 17 gm PO DAILY PRN PRN Reason: Constipation Omeprazole 20 mg PO DAILY Cranberry 4200mg-Vitamin C 1 tab PO DAILY Furosemide [Lasix] 40 mg PO DAILY #30 tab hydrALAZINE HCL [Apresoline] 25 mg PO BID #60 tab Cholecalciferol (Vitamin D3) [Vitamin D3] 2,000 unit PO DAILY ALPRAZolam [Xanax] 0.25 mg PO DAILY PRN #30 tab PRN Reason: Anxiety Cyclobenzaprine [Flexeril] 5 mg PO HS PRN #30 PRN Reason: Muscle Pain Changed traMADol HCL [Ultram] 100 mg PO Q6HR PRN #90 PRN Reason: Pain Discontinued Insulin Glargine [Lantus] 30 units SQ HS Amoxic-Pot Clav 500-125 mg [Augmentin 500-125 mg] 1 tab PO Q12HR #14 tab Metoprolol Succinate (ER) [Toprol XL] 100 mg PO DAILY #30 tab NIFEdipine XL [Procardia XL] 60 mg PO DAILY #60 tab Discharge Medication List DULoxetine HCL [Cymbalta] 60 mg PO DAILY 08/04/14 [History] Fish Oil/Dha/Epa [Fish Oil 1,200 mg Fish Oil] 1 cap PO MOWEFR 08/04/14 [History] Acetaminophen Tab [Tylenol] 650 mg PO Q6H PRN 05/29/15 [History] Amiodarone HCl [Pacerone] 100 mg PO DAILY 11/22/15 [History] Apixaban [Eliquis] 2.5 mg PO BID 11/22/15 [History] Aspirin EC [Ecotrin Low Dose] 81 mg PO HS 11/22/15 [History] Cetirizine HCl [Zyrtec] 10 mg PO DAILY 11/22/15 [History] Docusate [Colace] 100 mg PO BID 11/22/15 [History] Ezetimibe [Zetia] 10 mg PO DAILY 11/22/15 [History] Isosorbide Mononitrate ER [Imdur] 30 mg PO DAILY 11/22/15 [History] Magnesium Oxide [Mag-Ox] 400 mg PO HS 11/22/15 [History] Gabapentin [Neurontin] 300 mg PO BID #60 capsule 11/27/15 [Rx] Cranberry 4200mg-Vitamin C 1 tab PO DAILY 12/25/16 [History] Omeprazole 20 mg PO DAILY 12/25/16 [History] Polyethylene Glycol 3350 [Miralax] 17 gm PO DAILY PRN 12/25/16 [History] Furosemide [Lasix] 40 mg PO DAILY #30 tab 12/29/16 [Rx] hydrALAZINE HCL [Apresoline] 25 mg PO BID #60 tab 12/29/16 [Rx] Cholecalciferol (Vitamin D3) [Vitamin D3] 2,000 unit PO DAILY 12/31/16 [History] ALPRAZolam [Xanax] 0.25 mg PO DAILY PRN #30 tab 01/13/17 [Rx] Acetaminophen Tab [Tylenol] 650 mg PO Q6H PRN tab 01/13/17 [Rx] Amoxic-Pot Clav 500-125 mg [Augmentin 500-125 mg] 1 each PO DAILY 7 Days [Rx] Calcium Acetate [PhosLo] 667 mg PO TID-W/MEALS cap 01/13/17 [Rx] Cyclobenzaprine [Flexeril] 5 mg PO HS PRN #30 01/13/17 [Rx] Darbepoetin Aron [Aranesp] 40 mcg SQ Q7D syr 01/13/17 [Rx] Furosemide [Lasix] 80 mg PO BID@0900,1600 tab 01/13/17 [Rx] INSULIN LISPRO (humaLOG) [humaLOG (formulary)] 0 unit SQ ACHS vial 01/13/17 [Rx ] Insulin Glargine [Lantus] 36 unit SQ HS vial 01/13/17 [Rx] Ipratropium-Albuterol Nebulize [Duoneb 0.5 mg-3 mg/3 ml Soln] 3 ml INHALATION RT -QID PRN neb 01/13/17 [Rx] Metoprolol Succinate (ER) [Toprol XL] 150 mg PO DAILY tab 01/13/17 [Rx] NIFEdipine XL [Procardia XL] 60 mg PO DAILY tab 01/13/17 [Rx] traMADol HCL [Ultram] 100 mg PO Q6HR PRN #90 01/13/17 [Rx] Follow up Appointment(s)/Referral(s): Meghan Garcia MD [Primary Care Provider] - 1-2 days Activity/Diet/Wound Care/Special Instructions: [facility] #[phone] [facility], [place] (#[phone])
== END 2017-01-13 19:49 | DRG 291 ==
LOC: EC 11:35 → 6SEL 13:28 → 6ICU 01-09 10:56 → 4MS4W 01-11 12:49
PROVIDERS: ADMIT Internal Medicine; ATTEND Internal Medicine
PROC: 5A1D60Z (ICD-10-PCS; principal; 2017-01-04 08:08)
PROC: 06H033Z Insertion of Infusion Device into Inferior Vena Cava, Percutaneous Approach (ICD-10-PCS; 2017-01-04 08:08)
PROC: B519ZZA Fluoroscopy of Inferior Vena Cava, Guidance (ICD-10-PCS; 2017-01-04 08:08)
PROC: 05HM33Z Insertion of Infusion Device into Right Internal Jugular Vein, Percutaneous Approach (ICD-10-PCS; 2017-01-07)
PROC: B543ZZA Ultrasonography of Right Jugular Veins, Guidance (ICD-10-PCS; 2017-01-07)
DX: I13.2 Hypertensive heart and chronic kidney disease with heart failure and with stage 5 chronic kidney disease, or end stage renal disease (principal); J96.01 Acute respiratory failure with hypoxia; N17.9 Acute kidney failure, unspecified; G93.41 Metabolic encephalopathy; E11.21 Type 2 diabetes mellitus with diabetic nephropathy; I48.1 Persistent atrial fibrillation; N18.6 End stage renal disease; E11.22 Type 2 diabetes mellitus with diabetic chronic kidney disease; I50.33 Acute on chronic diastolic (congestive) heart failure; J44.1 Chronic obstructive pulmonary disease with (acute) exacerbation; I24.9 Acute ischemic heart disease, unspecified; K04.7 Periapical abscess without sinus; I48.0 Paroxysmal atrial fibrillation; E66.01 Morbid (severe) obesity due to excess calories; E87.5 Hyperkalemia; K21.9 Gastro-esophageal reflux disease without esophagitis; I25.10 Atherosclerotic heart disease of native coronary artery without angina pectoris; E78.5 Hyperlipidemia, unspecified; E11.42 Type 2 diabetes mellitus with diabetic polyneuropathy; F32.9 Major depressive disorder, single episode, unspecified; G89.29 Other chronic pain; M54.9 Dorsalgia, unspecified; F41.9 Anxiety disorder, unspecified; G47.30 Sleep apnea, unspecified; I48.2 Chronic atrial fibrillation; I35.0 Nonrheumatic aortic (valve) stenosis; D63.1 Anemia in chronic kidney disease; I95.2 Hypotension due to drugs; T50.3X5A Adverse effect of electrolytic, caloric and water-balance agents, initial encounter; E87.6 Hypokalemia; E83.39 Other disorders of phosphorus metabolism; I42.9 Cardiomyopathy, unspecified; T50.2X5A Adverse effect of carbonic-anhydrase inhibitors, benzothiadiazides and other diuretics, initial encounter; D50.9 Iron deficiency anemia, unspecified; Z79.899 Other long term (current) drug therapy; I25.2 Old myocardial infarction; Z79.01 Long term (current) use of anticoagulants; Z68.39 Body mass index [BMI] 39.0-39.9, adult; Z88.8 Allergy status to other drugs, medicaments and biological substances; Z79.4 Long term (current) use of insulin; Z82.49 Family history of ischemic heart disease and other diseases of the circulatory system; Z79.82 Long term (current) use of aspirin; Z82.5 Family history of asthma and other chronic lower respiratory diseases; Z90.710 Acquired absence of both cervix and uterus; Z90.49 Acquired absence of other specified parts of digestive tract; Z98.1 Arthrodesis status; Z86.14 Personal history of Methicillin resistant Staphylococcus aureus infection; Z87.01 Personal history of pneumonia (recurrent)
CPT/HCPCS: 36415; 36556; 36558; 36600; 71010; 71020; 76937; 77001; 80048; 80053; 80074; 82550; 82553; 82805; 83036; 83540; 83550; 83605; 83735; 83880; 84100; 84443; 84484; 85025; 85027; 85610; 85730; 86850; 86900; 86901; 86920; 87040; 87086; 90935; 93005; 94640; 94660; 94760; 96374; 96375; 99291

== ENCOUNTER → 2017-03-07 | Outpatient (CLI) | payer MEDICARE ==
[2017-03-07 10:16] LABS: Appearance,Urine Cloudy (Clear); Bacteria,Urine Few /hpf; Bilirubin,Urine Negative (Negative); Glucose,Urine (UA) Negative (Negative); Ketones,Urine Negative (Negative); Leukocyte Esterase,Urine Large (Negative); Mucus,Urine Rare /hpf; Nitrite,Urine Negative (Negative); PH, Urine 5.5 (5.0-8.0); Particle Count 3213; Protein,Urine Trace (Negative); RBC,Urine 2 /hpf (0-5); Specific Gravity,Urine 1.006 (1.001-1.035); Squamous Epithelial Cell,Urine 15 /hpf (0-4); UA Billing (MACRO vs. MICRO) MICRO; Urobilinogen,Urine <2.0 mg/dL (<2.0); WBC,Urine 53 /hpf (0-5)
== END | disposition home or self-care (01) ==
LOC: LABWHC1 09:42
PROVIDERS: ATTEND Internal Medicine
DX: B37.49 Other urogenital candidiasis (principal)
CPT/HCPCS: 81001; 87077; 87086; 87186

== ENCOUNTER 2017-05-05 06:16 | Inpatient (IN) | payer MEDICARE ==
[2017-05-05] MEDS ORDERED: DILTIAZEM 5 MG/ML 5 ML VIAL IVP STA (06:23)
[2017-05-05] MEDS ORDERED: IPRATROPIUM-ALBUTEROL 3 ML NEB INHALATION STA (06:24)
--- NOTE | 2017-05-05 06:31 | ED ---
General Adult HPI - General Chief complaint: Shortness of Breath Stated complaint: CRISTHIAN Time Seen by Provider: 05/05/17 06:21 Source: patient, RN notes reviewed, old records reviewed Mode of arrival: EMS Limitations: no limitations - History of Present Illness Initial comments: This is a 71-year-old female to the ER for evaluation. Patient with history secondary to severe respiratory distress. Patient's brought in by EMS in significant respiratory distress, patient currently mild awake, alert complaining of significant shortness of breath. History obtained from EMS otherwise - Related Data Home Medications Medication Instructions Recorded Confirmed DULoxetine HCL [Cymbalta] 60 mg PO DAILY 08/04/14 05/05/17 Fish Oil/Dha/Epa [Fish Oil 1,200 1 cap PO MOWEFR 08/04/14 05/05/17 mg Fish Oil] Amiodarone HCl [Pacerone] 100 mg PO DAILY 11/22/15 05/05/17 Apixaban [Eliquis] 2.5 mg PO BID 11/22/15 05/05/17 Aspirin EC [Ecotrin Low Dose] 81 mg PO DAILY 11/22/15 05/05/17 Cetirizine HCl [Zyrtec] 10 mg PO DAILY 11/22/15 05/05/17 Docusate [Colace] 100 mg PO BID 11/22/15 05/05/17 Ezetimibe [Zetia] 10 mg PO DAILY 11/22/15 05/05/17 Isosorbide Mononitrate ER [Imdur] 30 mg PO DAILY 11/22/15 05/05/17 Cranberry 4200mg-Vitamin C 1 tab PO BID 12/25/16 05/05/17 Omeprazole 20 mg PO DAILY 12/25/16 05/05/17 Cholecalciferol (Vitamin D3) 2,000 unit PO DAILY 12/31/16 05/05/17 [Vitamin D3] Ferrous Sulfate [Feosol] 325 mg PO DAILY 05/05/17 05/05/17 Insulin Aspart [NovoLOG 10 unit SQ AC-TID 05/05/17 05/05/17 (formulary)] Insulin Aspart [NovoLOG See Protocol SQ AC-TID 05/05/17 05/05/17 (formulary)] Insulin Glargine [Lantus] 30 unit SQ QAM 05/05/17 05/05/17 Insulin Glargine [Lantus] 50 unit SQ HS 05/05/17 05/05/17 Magnesium Oxide [Mag-Ox] 250 mg PO DAILY 05/05/17 05/05/17 Metoprolol Succinate (ER) [Toprol 100 mg PO DAILY 05/05/17 05/05/17 Xl] NIFEdipine [NIFEdipine ER] 30 mg PO DAILY 05/05/17 05/05/17 Previous Rx's Medication Instructions Recorded Gabapentin [Neurontin] 300 mg PO BID #60 capsule 11/27/15 Furosemide [Lasix] 80 mg PO BID@0900,1600 tab 01/13/17 Ipratropium-Albuterol Nebulize 3 ml INHALATION RT-QID PRN neb 01/13/17 [Duoneb 0.5 mg-3 mg/3 ml Soln] Allergies Allergy/AdvReac Type Severity Reaction Status Date / Time KUSHAL Inhibitors Allergy Swelling Verified 05/05/17 07:23 ARB-Angiotensin Receptor Allergy Swelling Verified 05/05/17 07:23 Antagonist cephalexin monohydrate Allergy Rash/Hives Verified 05/05/17 07:23 [From Keflex] propoxyphene HCl AdvReac Hallucinati Verified 05/05/17 07:23 [From Darvon] ons Yxemwgf-Kuw-Oyn Reductase AdvReac Myalgia Verified 05/05/17 07:23 Inhibitor Review of Systems ROS Statement: Those systems with pertinent positive or pertinent negative responses have been documented in the HPI. ROS Other: All systems not noted in ROS Statement are negative. Past Medical History Past Medical History: Atrial Fibrillation, Coronary Artery Disease (CAD), Heart Failure, Diabetes Mellitus, GERD/Reflux, Hyperlipidemia, Hypertension, Myocardial Infarction ([place]), Pneumonia, Renal Disease, Skin Disorder, Sleep Apnea /CPAP/BIPAP Additional Past Medical History / Comment(s): possible sleep apnea, no established diagnosis; chronic kidney disease diangosed may 2015; aortic stenois ; peripheral neuropathy upper and lower extremity Last Myocardial Infarction Date:: 05/28/2015 History of Any Multi-Drug Resistant Organisms: MRSA Date of last positivie culture/infection: 2009 MDRO Source:: wounds Past Surgical History: Back Surgery, Cholecystectomy, Heart Catheterization, Hysterectomy Additional Past Surgical History / Comment(s): Lumbar surgery with decompression off L3-L4 L4-L5 with fusion March 2011 with previous hardware failure L4-L5 and extension of fusion to S1. new back sugery including t8 and t9 Past Anesthesia/Blood Transfusion Reactions: No Reported Reaction Additional Past Anesthesia/Blood Transfusion Reaction / Comment(s): Possible confusion that resolved. Past Psychological History: Anxiety, Depression Smoking Status: Never smoker Past Drug Use History: None Reported - Past Family History Father Additional Family Medical History / Comment(s): Brain aneurysm ; age 72 Sister(s) Family Medical History: Hypertension Additional Family Medical History / Comment(s): Aortic stenosis; mitral valve disease Mother Family Medical History: AFIB, CVA/TIA, Hypertension Additional Family Medical History / Comment(s): mother age 83 Daughter(s) Family Medical History: Asthma Son(s) Family Medical History: Asthma General Exam Limitations: no limitations, altered mental status General appearance: alert, anxious, lethargic, in distress, obese Head exam: Present: atraumatic, normocephalic, normal inspection Eye exam: Present: normal appearance, PERRL, EOMI. Absent: scleral icterus, conjunctival injection, periorbital swelling ENT exam: Present: normal exam, mucous membranes moist Neck exam: Present: normal inspection. Absent: tenderness, meningismus, lymphadenopathy Respiratory exam: Present: normal lung sounds bilaterally, wheezes, accessory muscle use, decreased breath sounds, prolonged expiratory. Absent: respiratory distress, rales, rhonchi, stridor Cardiovascular Exam: Present: tachycardia, irregular rhythm, normal heart sounds. Absent: systolic murmur, diastolic murmur, rubs, gallop, clicks GI/Abdominal exam: Present: soft, normal bowel sounds. Absent: distended, tenderness, guarding, rebound, rigid Extremities exam: Present: normal inspection, full ROM, normal capillary refill. Absent: tenderness, pedal edema, joint swelling, calf tenderness Back exam: Present: normal inspection Neurological exam: Present: alert, oriented X3, CN II-XII intact Psychiatric exam: Present: normal affect, normal mood Skin exam: Present: warm, dry, intact, normal color. Absent: rash Course Vital Signs 05/05/17 05/05/17 05/05/17 06:20 06:50 07:50 Temperature 97.5 F L Pulse Rate 125 H 110 H 100 Pulse Rate [ Edger Runner ] Respiratory 28 H 27 H 20 Rate Blood Pressure 162/76 106/57 O2 Sat by Pulse 78 L 98 Oximetry 05/05/17 05/05/17 05/05/17 07:54 08:02 08:13 Temperature Pulse Rate 102 H 100 Pulse Rate [ Edger Runner ] Respiratory 24 20 24 Rate Blood Pressure 100/54 O2 Sat by Pulse 100 Oximetry 05/05/17 05/05/17 05/05/17 08:16 08:34 10:41 Temperature Pulse Rate 102 H 100 Pulse Rate [ 109 H Edger Runner ] Respiratory 24 18 Rate Blood Pressure 123/58 144/72 O2 Sat by Pulse 95 97 Oximetry 05/05/17 05/05/17 05/05/17 11:12 11:18 11:25 Temperature Pulse Rate 98 99 102 H Pulse Rate [ Edger Runner ] Respiratory 18 18 Rate Blood Pressure 136/65 O2 Sat by Pulse 99 Oximetry - Reevaluation(s) Reevaluation #1: 05/05/17 06:31 Patient is in severe distress was placed on BiPAP EKG Findings - EKG Comments: EKG Findings:: EKG shows sinus tachycardia rate 109, CA 150, QRS 140, QTc 514 Medical Decision Making - Medical Decision Making 71 female DEL with multifactorial respiratory failure secondary to pneumonia CHF and underlying COPD. Patient be admitted for cardiopulmonary support continue monitoring, continue on BiPAP - Lab Data Result diagrams: 05/10/17 05:24 05/10/17 05:24 Lab Results 05/05/17 05/05/17 05/05/17 Range/Units 06:31 06:31 06:31 WBC 34.2 H* (3.8-10.6) k/uL RBC 3.70 L (3.80-5.40) m/uL Hgb 11.4 (11.4-16.0) gm/dL Hct 37.6 (34.0-46.0) % MCV 101.5 H (80.0-100.0) fL MCH 30.7 (25.0-35.0) pg MCHC 30.3 L (31.0-37.0) g/dL RDW 16.0 H (11.5-15.5) % Plt Count 403 (150-450) k/uL Neutrophils % (Manual) 61 % Lymphocytes % (Manual) 33 % Monocytes % (Manual) 6 % Neutrophils # (Manual) 20.86 H (1.3-7.7) k/uL Lymphocytes # (Manual) 11.29 H (1.0-4.8) k/uL Monocytes # (Manual) 2.05 H (0-1.0) k/uL Nucleated RBCs 0 (0-0) /100 WBC Manual Slide Review Performed Polychromasia Present Hypochromasia Moderate Anisocytosis Slight Macrocytosis Slight PT (9.0-12.0) sec INR (<1.2) APTT (22.0-30.0) sec Sodium 137 (137-145) mmol/L Potassium 4.3 (3.5-5.1) mmol/L Chloride 96 L (98-107) mmol/L Carbon Dioxide 24 (22-30) mmol/L Anion Gap 17 mmol/L BUN 24 H (7-17) mg/dL Creatinine 2.84 H (0.52-1.04) mg/dL Est GFR (MDRD) Af Amer 20 (>60 ml/min/1.73 sqM) Est GFR (MDRD) Non-Af 16 (>60 ml/min/1.73 sqM) Glucose 267 H (74-99) mg/dL Plasma Lactic Acid Satinder (0.7-2.0) mmol/L Calcium 9.0 (8.4-10.2) mg/dL Phosphorus 6.2 H (2.5-4.5) mg/dL Magnesium 2.0 (1.6-2.3) mg/dL Total Bilirubin 0.7 (0.2-1.3) mg/dL AST 45 H (14-36) U/L ALT 36 (9-52) U/L Alkaline Phosphatase 240 H (38-126) U/L Total Creatine Kinase 93 (30-135) U/L CK-MB (CK-2) 7.4 H* (0.0-2.4) ng/mL CK-MB (CK-2) Rel Index 8.0 Troponin I 0.471 H* (0.000-0.034) ng/mL NT-Pro-B Natriuret Pep pg/mL Total Protein 7.1 (6.3-8.2) g/dL Albumin 3.4 L (3.5-5.0) g/dL 05/05/17 05/05/17 05/05/17 Range/Units 06:31 06:31 06:31 WBC (3.8-10.6) k/uL RBC (3.80-5.40) m/uL Hgb (11.4-16.0) gm/dL Hct (34.0-46.0) % MCV (80.0-100.0) fL MCH (25.0-35.0) pg MCHC (31.0-37.0) g/dL RDW (11.5-15.5) % Plt Count (150-450) k/uL Neutrophils % (Manual) % Lymphocytes % (Manual) % Monocytes % (Manual) % Neutrophils # (Manual) (1.3-7.7) k/uL Lymphocytes # (Manual) (1.0-4.8) k/uL Monocytes # (Manual) (0-1.0) k/uL Nucleated RBCs (0-0) /100 WBC Manual Slide Review Polychromasia Hypochromasia Anisocytosis Macrocytosis PT 10.5 (9.0-12.0) sec INR 1.1 (<1.2) APTT 28.2 (22.0-30.0) sec Sodium (137-145) mmol/L Potassium (3.5-5.1) mmol/L Chloride (98-107) mmol/L Carbon Dioxide (22-30) mmol/L Anion Gap mmol/L BUN (7-17) mg/dL Creatinine (0.52-1.04) mg/dL Est GFR (MDRD) Af Amer (>60 ml/min/1.73 sqM) Est GFR (MDRD) Non-Af (>60 ml/min/1.73 sqM) Glucose (74-99) mg/dL Plasma Lactic Acid Satinder 4.3 H* (0.7-2.0) mmol/L Calcium (8.4-10.2) mg/dL Phosphorus (2.5-4.5) mg/dL Magnesium (1.6-2.3) mg/dL Total Bilirubin (0.2-1.3) mg/dL AST (14-36) U/L ALT (9-52) U/L Alkaline Phosphatase (38-126) U/L Total Creatine Kinase (30-135) U/L CK-MB (CK-2) (0.0-2.4) ng/mL CK-MB (CK-2) Rel Index Troponin I (0.000-0.034) ng/mL NT-Pro-B Natriuret Pep 9740 pg/mL Total Protein (6.3-8.2) g/dL Albumin (3.5-5.0) g/dL - Radiology Data Radiology results: report reviewed (Chest x-ray positive for pulmonary edema), image reviewed Critical Care Time Critical Care Time: Yes Total Critical Care Time: 31 Disposition Clinical Impression: Acute exacerbation of chronic obstructive airways disease, Pulmonary edema, acute, Community acquired pneumonia Disposition: ADMITTED IP TO THIS HOSP Condition: Serious
[2017-05-05 06:47] LABS: Anisocytosis Slight; HCT 37.6 % (34.0-46.0); HGB 11.4 gm/dL (11.4-16.0); Hypochromasia Moderate; MCH 30.7 pg (25.0-35.0); MCHC 30.3 g/dL (31.0-37.0); MCV 101.5 fL (80.0-100.0); Macrocytosis Slight; Mean Platelet Volume 8.9; Platelet Count 403 k/uL (150-450)
[2017-05-05 06:49] LABS: WBC 34.2 k/uL (3.8-10.6)
[2017-05-05] MEDS ORDERED: LEVOFLOXACIN 750MG-D5W PMX 750 MG in DEXTROSE/WATER 1 150ML.BAG IVPB STA (06:50)
[2017-05-05] MEDS ORDERED: PIPERACILLIN-TAZOBACTAM 3.375 GM in DEXTROSE/WATER 1 50ML.BAG IVPB STA (06:50)
[2017-05-05] MEDS ORDERED: PNEUMONIA PROTOCOL UTILIZED 1 EACH MISC PO PRN (06:50)
[2017-05-05 06:52] LABS: INR 1.1 (<1.2); Partial Thromboplastin Time 28.2 sec (22.0-30.0); Prothrombin Time 10.5 sec (9.0-12.0)
--- NOTE | 2017-05-05 06:59 | XR ---
EXAMINATION TYPE: XR chest 1V portable DATE OF EXAM: 05/05/2017 COMPARISON: Chest x-ray January 11, 2017 HISTORY: Chest pain. TECHNIQUE: Single AP portable frontal upright view of the chest is obtained. FINDINGS: There is stable large bore dual-lumen right internal jugular dialysis catheter. Cardiac steffi houette size is stable and felt mildly enlarged. There is new elevated right hemidiaphragm, suspect s mall to moderate-sized right-sided effusion. Improved aeration left lung base is present. There is mi ld central vascular congestion on current study. There is partial visualization of surgical change in the upper lumbar spine. IMPRESSION: Persistent mild cardiomegaly with suspected new mild central vascular congestion and ne w small to moderate-sized right pleural effusion. Correlate for fluid overload state. Improved aerati on left lung base noted since prior.
[2017-05-05 07:07] LABS: Albumin 3.4 g/dL (3.5-5.0); Phosphorus 6.2 mg/dL (2.5-4.5); Potassium 4.3 mmol/L (3.5-5.1); Total Bilirubin 0.7 mg/dL (0.2-1.3); Total Protein 7.1 g/dL (6.3-8.2)
[2017-05-05 07:24] LABS: Lymphocytes # (M) 11.29 k/uL (1.0-4.8); Monocytes # (M) 2.05 k/uL (0-1.0); Neutrophils # (M) 20.86 k/uL (1.3-7.7); Neutrophils % (M) 61 %; Nucleated Red Blood Cells 0 /100 WBC (0-0); Total Cells Counted 100
[2017-05-05 07:25] LABS: Creatine Kinase MB 7.4 ng/mL (0.0-2.4); Polychromasia Present; Troponin I 0.471 ng/mL (0.000-0.034)
[2017-05-05] MEDS ORDERED: HEPARIN SOD,PORK IN 0.45% NACL 25,000 UNIT in 0.45% NACL 1 500ML.BAG IV SCH ×2 (08:00→15:15)
[2017-05-05] MEDS: IPRATROPIUM-ALBUTEROL 3 ML NEB INHALATION SCH ×4 (09:27→20:00)
--- NOTE | 2017-05-05 12:13 | P.HPIM ---
History of Present Illness H&P Date: 05/05/17 Chief Complaint: SOB This is a 71-year-old female patient of Dr. Garcia with past medical history of atrial fibrillation, coronary artery disease status post myocardial infarction, has history of triple-vessel disease but was considered high risk for bypass, on conservative treatment,chronic diastolic heart failure , diabetes mellitus type 2, hyperlipidemia, hypertension, end-stage renal disease on hemodialysis, peripheral neuropathy.patient was recently hospitalized at [facility] in with significant shortness of breath, she was suggestive of pulmonary edema with acute kidney injury on CK D4 in the December 2016 patient was initiated on hemodialysis. Patient is doing well until 6 days ago when she started having flulike symptoms associated with postnasal drip and cough. She did see Dr. Silveira 2 days ago and was prescribed antibiotics with steroids, patient was unable to get the prescription for albuterol and was using an prescription. With no improvement of symptoms. Since she was very short of breath yesterday along with palpitations she decided to come to the ER. She has been afebrile since admission, tachycardic from 100-102 blood pressure is stable in 136/65 retreat of 28 on admission patient was desaturating to the 78 on room air and was placed on BiPAP, chest x-ray suggestive of pulmonary edema. No consolidation or atelectasis present. Lactic acid was greater than 4 on admission and improved to 1.8 on repeat checking. No fluid boluses was given because patient is in end-stage renal disease. Labs including a CBC is 34.2, hemoglobin 11.4 MCV 101, INR 1.1, BNP suggestive of creatinine at 2.84. BUN of 24. Troponin elevated 0.47. ProBNP 9700. Patient was initiated on levofloxacin and Zosyn. Pulmonary, cardiology and nephrology consult placed for acute hypoxic respiratory failure, increase troponin anemia and CHF exacerbation and possible dialysis today for pulmonary edema. Review of Systems Constitutional: Endorses chills, fever, lethargy for the past week Denies weight loss Eyes: denies decreased vision, denies diplopia, denies discharge, denies pain Ears: deny: decreased hearing Ears, nose, mouth and throat: Denies dental pain, Denies headache, Denies nasal discharge, Denies nose pain Cardiovascular: Denies chest pain, endorses decreased exercise tolerance, endorses edema, endorses high blood pressure, Denies irregular heart beat, endorses palpitations, Denies paroxysmal nocturnal dyspnea, endorses rapid heart beat, endorses shortness of breath Respiratory: Endorses congestion, endorses cough, endorses cough with sputum, endorses dyspnea, Denies home oxygen, Denies wheezing does not wear CPAP at night Gastrointestinal: Denies abdominal pain, Denies change in bowel habits, Denies coffee ground emesis, Denies early satiety, Denies excessive gas, Denies heartburn, Denies hematemesis, Denies hematochezia, Denies loss of appetite, Denies nausea, Denies vomiting Genitourinary: Denies dysuria, Denies flank pain, Denies kidney stones, Denies menorrhagia, Denies urgency, Denies urinary frequency Musculoskeletal: Patient is wheelchair bound with limitation of motion due to increased weakness Integumentary: Denies rash, Denies wounds, Denies brittle nails, Denies change in hair/nails, Denies darkening of skin Neurological: Denies balance difficulties, Denies change in speech, Denies double vision, Denies gait dysfunction, Denies loss of vision, Denies motor disturbance, Denies numbness, Denies paralysis, Denies paresthesias, Denies seizures Psychiatric: Denies anxiety, Denies depression Endocrine: Denies excessive sweating, Denies excessive thirst, Denies high blood sugars, Denies palpitations Hematologic/Lymphatic: Denies easy bruising, Denies lymphadenopathy Past Medical History Past Medical History: Atrial Fibrillation, Coronary Artery Disease (CAD), Heart Failure, COPD, Diabetes Mellitus, GERD/Reflux, Hyperlipidemia, Hypertension, Myocardial Infarction ([place]), Pneumonia, Renal Disease Additional Past Medical History / Comment(s): Current respiratory infection/ABX , chronic CHF, chronic kidney disease stage IV with hemodialysis thru temporary shunt anterior chest tu/thur/sat-will have permanent site in LFA soon, anemia, back pain, 4 vessel cardiac dx per rachel being tx medically, aortic stenois, IDDM type II, peripheral neuropathy upper and lower extremity, weakness. Last Myocardial Infarction Date:: 05/28/2015 History of Any Multi-Drug Resistant Organisms: MRSA Date of last positivie culture/infection: 06/2010 MDRO Source:: wounds in L foot/abdomin Past Surgical History: Back Surgery, Cholecystectomy, Heart Catheterization, Hysterectomy, Orthopedic Surgery Additional Past Surgical History / Comment(s): Lumbar decompression/fusion with revision, surgery on T8-T9, temporary hemodialysis cath in chest wall, Picc line insertion/removal, bilateral carpal tunnel release, pain procedures, bilateral cataract removal with lens implants, colonoscopy. Past Anesthesia/Blood Transfusion Reactions: No Reported Reaction Additional Past Anesthesia/Blood Transfusion Reaction / Comment(s): Possible confusion that resolved. Pt has received blood in past without reaction. Smoking Status: Never smoker - Past Family History Father Additional Family Medical History / Comment(s): Brain aneurysm ; age 72 Sister(s) Family Medical History: Hypertension Additional Family Medical History / Comment(s): Aortic stenosis; mitral valve disease Mother Family Medical History: AFIB, CVA/TIA, Hypertension Additional Family Medical History / Comment(s): mother age 83 Daughter(s) Family Medical History: Asthma Son(s) Family Medical History: Asthma Medications and Allergies Home Medications Medication Instructions Recorded Confirmed Type DULoxetine HCL [Cymbalta] 60 mg PO DAILY 08/04/14 05/05/17 History Fish Oil/Dha/Epa [Fish Oil 1,200 1 cap PO MOWEFR 08/04/14 05/05/17 History mg Fish Oil] Amiodarone HCl [Pacerone] 100 mg PO DAILY 11/22/15 05/05/17 History Apixaban [Eliquis] 2.5 mg PO BID 11/22/15 05/05/17 History Aspirin EC [Ecotrin Low Dose] 81 mg PO DAILY 11/22/15 05/05/17 History Cetirizine HCl [Zyrtec] 10 mg PO DAILY 11/22/15 05/05/17 History Docusate [Colace] 100 mg PO BID 11/22/15 05/05/17 History Ezetimibe [Zetia] 10 mg PO DAILY 11/22/15 05/05/17 History Isosorbide Mononitrate ER [Imdur] 30 mg PO DAILY 11/22/15 05/05/17 History Gabapentin [Neurontin] 300 mg PO BID #60 capsule 11/27/15 05/05/17 Rx Cranberry 4200mg-Vitamin C 1 tab PO DAILY 12/25/16 05/05/17 History Omeprazole 20 mg PO DAILY 12/25/16 05/05/17 History Cholecalciferol (Vitamin D3) 2,000 unit PO DAILY 12/31/16 05/05/17 History [Vitamin D3] Furosemide [Lasix] 80 mg PO BID@0900,1600 tab 01/13/17 05/05/17 Rx Ipratropium-Albuterol Nebulize 3 ml INHALATION RT-QID PRN neb 01/13/17 Rx [Duoneb 0.5 mg-3 mg/3 ml Soln] Ferrous Sulfate [Feosol] 325 mg PO DAILY 05/05/17 05/05/17 History Insulin Aspart [NovoLOG 10 unit SQ AC-TID 05/05/17 05/05/17 History (formulary)] Insulin Aspart [NovoLOG See Protocol SQ AC-TID 05/05/17 05/05/17 History (formulary)] Insulin Glargine [Lantus] 30 unit SQ QAM 05/05/17 05/05/17 History Insulin Glargine [Lantus] 50 unit SQ HS 05/05/17 05/05/17 History Magnesium Oxide [Mag-Ox] 250 mg PO DAILY 05/05/17 05/05/17 History Metoprolol Succinate (ER) [Toprol 100 mg PO DAILY 05/05/17 05/05/17 History Xl] NIFEdipine [NIFEdipine ER] 30 mg PO DAILY 05/05/17 05/05/17 History Allergies Allergy/AdvReac Type Severity Reaction Status Date / Time KUSHAL Inhibitors Allergy Swelling Verified 05/05/17 07:23 ARB-Angiotensin Receptor Allergy Swelling Verified 05/05/17 07:23 Antagonist cephalexin monohydrate Allergy Rash/Hives Verified 05/05/17 07:23 [From Keflex] propoxyphene HCl AdvReac Hallucinati Verified 05/05/17 07:23 [From Darvon] ons Dwyymtn-Tlf-Urb Reductase AdvReac Myalgia Verified 05/05/17 07:23 Inhibitor Physical Exam Vitals: Vital Signs Temp Pulse Pulse Resp BP Pulse Ox 05/05/17 11:25 102 H 05/05/17 11:18 99 18 136/65 99 05/05/17 11:12 98 18 05/05/17 10:41 100 18 144/72 97 05/05/17 08:34 102 H 24 123/58 95 05/05/17 08:16 109 H 01/05/18 08:13 24 05/05/17 08:02 100 20 05/05/17 07:54 102 H 24 100/54 100 05/05/17 07:50 100 20 05/05/17 06:50 110 H 27 H 106/57 98 05/05/17 06:20 97.5 F L 125 H 28 H 162/76 78 L Intake and Output 05/04/17 05/05/17 05/05/17 22:59 06:59 14:59 Other: Weight 95.708 kg - Constitutional General appearance: cooperative moderate acute distress on BiPAP, obese - EENT Eyes: anicteric sclerae, PERRLA, normal appearance ENT: hearing grossly normal - Neck Neck: no lymphadenopathy, normal ROM, no other, no rigidity, no stridor, no thyromegaly - Respiratory Respiratory: bilateral: Diminished air entry bilaterally with crackles heard at the bases, and very decreased air movement in the left lower lobe - Cardiovascular Rhythm: The cardiac Heart sounds: normal: S1, S2 Abnormal Heart Sounds: no systolic murmur, no diastolic murmur, no rub and no lower extremity edema - Gastrointestinal General gastrointestinal: normal bowel sounds, soft - Integumentary Integumentary: no rash - Neurologic Neurologic: CNII-XII intact - Musculoskeletal Musculoskeletal: strength equal bilaterally - Psychiatric Psychiatric: A&O x's 3, appropriate affect Results CBC & Chem 7: 05/05/17 06:31 05/05/17 06:31 Labs: Abnormal Lab Results - Last 24 Hours (Table) 05/05/17 05/05/17 05/05/17 Range/Units 06:31 06:31 06:31 WBC 34.2 H* (3.8-10.6) k/uL RBC 3.70 L (3.80-5.40) m/uL MCV 101.5 H (80.0-100.0) fL MCHC 30.3 L (31.0-37.0) g/dL RDW 16.0 H (11.5-15.5) % Neutrophils # (Manual) 20.86 H (1.3-7.7) k/uL Lymphocytes # (Manual) 11.29 H (1.0-4.8) k/uL Monocytes # (Manual) 2.05 H (0-1.0) k/uL Chloride 96 L (98-107) mmol/L BUN 24 H (7-17) mg/dL Creatinine 2.84 H (0.52-1.04) mg/dL Glucose 267 H (74-99) mg/dL Plasma Lactic Acid Satinder (0.7-2.0) mmol/L Phosphorus 6.2 H (2.5-4.5) mg/dL AST 45 H (14-36) U/L Alkaline Phosphatase 240 H (38-126) U/L CK-MB (CK-2) 7.4 H* (0.0-2.4) ng/mL Troponin I 0.471 H* (0.000-0.034) ng/mL Albumin 3.4 L (3.5-5.0) g/dL 05/05/17 Range/Units 06:31 WBC (3.8-10.6) k/uL RBC (3.80-5.40) m/uL MCV (80.0-100.0) fL MCHC (31.0-37.0) g/dL RDW (11.5-15.5) % Neutrophils # (Manual) (1.3-7.7) k/uL Lymphocytes # (Manual) (1.0-4.8) k/uL Monocytes # (Manual) (0-1.0) k/uL Chloride (98-107) mmol/L BUN (7-17) mg/dL Creatinine (0.52-1.04) mg/dL Glucose (74-99) mg/dL Plasma Lactic Acid Satinder 4.3 H* (0.7-2.0) mmol/L Phosphorus (2.5-4.5) mg/dL AST (14-36) U/L Alkaline Phosphatase (38-126) U/L CK-MB (CK-2) (0.0-2.4) ng/mL Troponin I (0.000-0.034) ng/mL Albumin (3.5-5.0) g/dL Thrombosis Risk Factor Assmnt - DVT/VTE Prophylaxis DVT/VTE Prophylaxis: Pharmacologic Prophylaxis ordered - Choose All That Apply Any of the Below Risk Factors Present?: Yes Each Factor Represents 1 point: Abnormal pulmonary function (COPD), Heart failure (<1month), Medical pt on bed rest, Obesity (BMI >25), Serious lung disease incl. pneumonia (< 1month) Other Risk Factors: Yes Each Risk Factor Represents 2 Points: Age 61-74 years Other congenital or acquired thrombophilia - If yes, enter type in comment: No Thrombosis Risk Factor Assessment Total Risk Factor Score: 7 Thrombosis Risk Factor Assessment Level: High Risk Assessment and Plan Plan: 1. Acute hypoxic respiratory failure secondary to acute on chronic diastolic heart failure, COPD exacerbation, underlying community-acquired pneumonia. Moderate aortic stenosis. Continue on BiPAP continue patient on Imdur 30 mg orally once every day, Toprol-XLl 100 mg orally once every day. O once every day, continue hydralazine 25 mg orally twice every day, And output and daily weight, cardiology consultation. Patient may need another hemodialysis session today. Continue levofloxacin and Zosyn for dual coverage for Pseudomonas. I will start patient on Solu-Medrol 60 every 6 hours. Pulmonary consult hold nifedipine and for acute CHF 2. Severe sepsis with possible source either urine or pneumonia, urinalysis suggestive of infection. Urine culture pending. Continue levofloxacin 3. End-stage renal disease on hemodialysis with pulmonary edema seen on chest x -ray, possible another session of hemodialysis today 4. Hypertension. Continue metoprolol 100 mg orally once every day. 5. Paroxysmal atrial fibrillation. Continue amiodarone 100 mg orally once every day, Eliquis 2.5 mg orally on hold as patient is on heparin drip 6. Morbid obesity with BMI of 39. 7. Troponinemia -history of coronary artery disease. Trend troponin every 63 echo ordered, continue heparin drip until seen by cardiology 8. Diabetes mellitus type 2 . Continue Lantus 30 units in the morning and 50 units in the night along with 10 units of aspart 3 times a day along with a sliding scale insulin. 9. GERD. Continue omeprazole 20 mg orally once every day. 10. Hypertension, hypertensive cardiovascular disease. Toprol-XL 100 mg orally once every day, nifedipine and Imdur 11. History of myocardial infarction and coronary artery disease. Continue aspirin 81 mg once every day, Toprol-XL 100 mg orally once every day, Imdur 30 mg orally once every day, Zetia 10 mg orally once every day. 12. Hyperlipidemia. 13. Diabetic peripheral neuropathy and neuropathy secondary to chronic back pain. Continue gabapentin 300 mg orally twice every day. 14. Depression. Continue Cymbalta 60 mg orally once every day. 15. DVT prophylaxis. On heparin drip as well as bilateral knee-high TERRIE hose. 16. Prophylaxis. Continue patient on PPI. 17. Full code. 18. The to inpatient. Estimate length of stay 2 midnights.
[2017-05-05 12:27] LABS: Glucose,Whole Blood 315 mg/dL (75-99)
[2017-05-05] MEDS: INSULIN ASPART 100 UNIT/ML 1 ML 10 ML VIAL SQ SCH ×5 (13:02→21:19)
--- NOTE | 2017-05-05 14:34 | P.CRDCN ---
History of Present Illness Consult date: 05/05/17 Chief complaint: Shortness of breath History of present illness: This is a pleasant 71-year-old female patient who follows was Dr. Combs in the office as an outpatient with a past medical history significant for coronary artery disease, heart failure with preserved LV function, hypertensive heart disease, moderate aortic stenosis, and paroxysmal atrial fibrillation presented to the hospital complaining of shortness of breath. The patient stated that she was in her usual state of health until the last 3 days when she started experiencing dyspnea. She did not have any bilateral lower extremities edema but she noticed an abdominal distention. No weight change. She did have some fever at home without chills, and also she has been experiencing cough productive of sputum. The patient was prescribed outpatient treatment with antibiotic but she did not respond well to the treatment. She is also known to have end-stage renal disease on hemodialysis and she stated that she did not miss any of her dialysis and beside that she stated that she was compliant with her medications and her diet as well as. Before she presented to the hospital she had some upper respiratory symptoms. The EKG showed sinus tachycardia. She does have also a right bundle branch block and left anterior fascicular block. The BNP came in to be around 9000. The chest x-ray showed pulmonary vascular congestions and bilateral pleural effusion worse on the right side. The cardiac enzymes were checked and came in to be slightly abnormal was mildly abnormal CK-MB and mildly abnormal troponin. This could reflect acute coronary syndrome and also the possibility of abnormal cardiac enzymes related to chronic kidney disease, be totally excluded. Please note that the patient did not have any symptoms of chest pain or chest discomfort. The last echocardiogram is from November 2016 and that revealed normal LV function , hypertensive heart disease, moderate aortic stenosis as well. Past Medical History Past Medical History: Atrial Fibrillation, Coronary Artery Disease (CAD), Heart Failure, COPD, Diabetes Mellitus, GERD/Reflux, Hyperlipidemia, Hypertension, Myocardial Infarction ([place]), Pneumonia, Renal Disease Additional Past Medical History / Comment(s): Current respiratory infection/ABX , chronic CHF, chronic kidney disease stage IV with hemodialysis thru temporary shunt anterior chest tu/thur/sat-will have permanent site in LFA soon, anemia, back pain, 4 vessel cardiac dx per rachel being tx medically, aortic stenois, IDDM type II, peripheral neuropathy upper and lower extremity, weakness. Last Myocardial Infarction Date:: 05/28/2015 History of Any Multi-Drug Resistant Organisms: MRSA Date of last positivie culture/infection: 06/2010 MDRO Source:: wounds in L foot/abdomin Past Surgical History: Back Surgery, Cholecystectomy, Heart Catheterization, Hysterectomy, Orthopedic Surgery Additional Past Surgical History / Comment(s): Lumbar decompression/fusion with revision, surgery on T8-T9, temporary hemodialysis cath in chest wall, Picc line insertion/removal, bilateral carpal tunnel release, pain procedures, bilateral cataract removal with lens implants, colonoscopy. Past Anesthesia/Blood Transfusion Reactions: No Reported Reaction Additional Past Anesthesia/Blood Transfusion Reaction / Comment(s): Possible confusion that resolved. Pt has received blood in past without reaction. Smoking Status: Never smoker - Past Family History Father Additional Family Medical History / Comment(s): Brain aneurysm ; age 72 Sister(s) Family Medical History: Hypertension Additional Family Medical History / Comment(s): Aortic stenosis; mitral valve disease Mother Family Medical History: AFIB, CVA/TIA, Hypertension Additional Family Medical History / Comment(s): mother age 83 Daughter(s) Family Medical History: Asthma Son(s) Family Medical History: Asthma Medications and Allergies Home Medications Medication Instructions Recorded Confirmed Type DULoxetine HCL [Cymbalta] 60 mg PO DAILY 08/04/14 05/05/17 History Fish Oil/Dha/Epa [Fish Oil 1,200 1 cap PO MOWEFR 08/04/14 05/05/17 History mg Fish Oil] Amiodarone HCl [Pacerone] 100 mg PO DAILY 11/22/15 05/05/17 History Apixaban [Eliquis] 2.5 mg PO BID 11/22/15 05/05/17 History Aspirin EC [Ecotrin Low Dose] 81 mg PO DAILY 11/22/15 05/05/17 History Cetirizine HCl [Zyrtec] 10 mg PO DAILY 11/22/15 05/05/17 History Docusate [Colace] 100 mg PO BID 11/22/15 05/05/17 History Ezetimibe [Zetia] 10 mg PO DAILY 11/22/15 05/05/17 History Isosorbide Mononitrate ER [Imdur] 30 mg PO DAILY 11/22/15 05/05/17 History Gabapentin [Neurontin] 300 mg PO BID #60 capsule 11/27/15 05/05/17 Rx Cranberry 4200mg-Vitamin C 1 tab PO BID 12/25/16 05/05/17 History Omeprazole 20 mg PO DAILY 12/25/16 05/05/17 History Cholecalciferol (Vitamin D3) 2,000 unit PO DAILY 12/31/16 05/05/17 History [Vitamin D3] Furosemide [Lasix] 80 mg PO BID@0900,1600 tab 01/13/17 05/05/17 Rx Ipratropium-Albuterol Nebulize 3 ml INHALATION RT-QID PRN neb 01/13/17 Rx [Duoneb 0.5 mg-3 mg/3 ml Soln] Ferrous Sulfate [Feosol] 325 mg PO DAILY 05/05/17 05/05/17 History Insulin Aspart [NovoLOG 10 unit SQ AC-TID 05/05/17 05/05/17 History (formulary)] Insulin Aspart [NovoLOG See Protocol SQ AC-TID 05/05/17 05/05/17 History (formulary)] Insulin Glargine [Lantus] 30 unit SQ QAM 05/05/17 05/05/17 History Insulin Glargine [Lantus] 50 unit SQ HS 05/05/17 05/05/17 History Magnesium Oxide [Mag-Ox] 250 mg PO DAILY 05/05/17 05/05/17 History Metoprolol Succinate (ER) [Toprol 100 mg PO DAILY 05/05/17 05/05/17 History Xl] NIFEdipine [NIFEdipine ER] 30 mg PO DAILY 05/05/17 05/05/17 History Allergies Allergy/AdvReac Type Severity Reaction Status Date / Time KUSHAL Inhibitors Allergy Swelling Verified 05/05/17 07:23 ARB-Angiotensin Receptor Allergy Swelling Verified 05/05/17 07:23 Antagonist cephalexin monohydrate Allergy Rash/Hives Verified 05/05/17 07:23 [From Keflex] propoxyphene HCl AdvReac Hallucinati Verified 05/05/17 07:23 [From Darvon] ons Axekiky-Uoo-Wsk Reductase AdvReac Myalgia Verified 05/05/17 07:23 Inhibitor Physical Exam Vitals: Vital Signs Temp Pulse Pulse Resp BP Pulse Ox 05/05/17 12:34 96 05/05/17 11:56 97.5 F L 102 H 18 136/65 99 05/05/17 11:25 102 H 05/05/17 11:18 99 18 136/65 99 05/05/17 11:12 98 18 05/05/17 10:41 100 18 144/72 97 05/05/17 08:34 102 H 24 123/58 95 05/05/17 08:16 109 H 05/05/17 08:13 24 05/05/17 08:02 100 20 05/05/17 07:54 102 H 24 100/54 100 05/05/17 07:50 100 20 05/05/17 06:50 110 H 27 H 106/57 98 05/05/17 06:20 97.5 F L 125 H 28 H 162/76 78 L Intake and Output 05/04/17 05/05/17 05/05/17 22:59 06:59 14:59 Other: Weight 95.708 kg 97 kg Patient Weight 05/06/17 06:59 Weight 97 kg - Constitutional General appearance: no acute distress - Respiratory Respiratory: bilateral: diminished - Cardiovascular Rhythm: regular Heart sounds: normal: S1, S2 Results 05/05/17 06:31 05/05/17 06:31 Cardiac Enzymes 05/05/17 05/05/17 Range/Units 06:31 06:31 AST 45 H (14-36) U/L CK-MB (CK-2) 7.4 H* (0.0-2.4) ng/mL Troponin I 0.471 H* (0.000-0.034) ng/mL Coagulation 05/05/17 Range/Units 06:31 PT 10.5 (9.0-12.0) sec APTT 28.2 (22.0-30.0) sec CBC 05/05/17 Range/Units 06:31 WBC 34.2 H* (3.8-10.6) k/uL RBC 3.70 L (3.80-5.40) m/uL Hgb 11.4 (11.4-16.0) gm/dL Hct 37.6 (34.0-46.0) % Plt Count 403 (150-450) k/uL Comprehensive Metabolic Panel 05/05/17 Range/Units 06:31 Sodium 137 (137-145) mmol/L Potassium 4.3 (3.5-5.1) mmol/L Chloride 96 L (98-107) mmol/L Carbon Dioxide 24 (22-30) mmol/L BUN 24 H (7-17) mg/dL Creatinine 2.84 H (0.52-1.04) mg/dL Glucose 267 H (74-99) mg/dL Calcium 9.0 (8.4-10.2) mg/dL AST 45 H (14-36) U/L ALT 36 (9-52) U/L Alkaline Phosphatase 240 H (38-126) U/L Total Protein 7.1 (6.3-8.2) g/dL Albumin 3.4 L (3.5-5.0) g/dL Current Medications Generic Name Dose Route Start Last Admin Trade Name Freq PRN Reason Stop Dose Admin Albuterol/Ipratropium 3 ml 05/05/17 08:00 05/05/17 11:12 Duoneb 0.5 Mg-3 Mg/3 Ml Soln INHALATION 3 ml RT-QID JONEL Administration Albuterol/Ipratropium 3 ml 05/05/17 12:13 Duoneb 0.5 Mg-3 Mg/3 Ml Soln INHALATION RT-QID PRN Wheezing Amiodarone HCl 100 mg 05/06/17 09:00 Cordarone PO DAILY COUNTS INCLUDE 234 BEDS AT THE [facility] Aspirin 81 mg 05/06/17 09:00 Aspirin PO DAILY COUNTS INCLUDE 234 BEDS AT THE [facility] Docusate Sodium 100 mg 05/05/17 21:00 Colace PO BID COUNTS INCLUDE 234 BEDS AT THE [facility] Duloxetine HCl 60 mg 05/06/17 09:00 Cymbalta PO DAILY COUNTS INCLUDE 234 BEDS AT THE [facility] Ezetimibe 10 mg 05/06/17 09:00 Zetia PO DAILY COUNTS INCLUDE 234 BEDS AT THE [facility] Ferrous Sulfate 325 mg 05/06/17 09:00 Feosol PO DAILY COUNTS INCLUDE 234 BEDS AT THE [facility] Furosemide 80 mg 05/05/17 16:00 Lasix PO BID@0900,1600 COUNTS INCLUDE 234 BEDS AT THE [facility] Gabapentin 300 mg 05/05/17 21:00 Neurontin PO BID COUNTS INCLUDE 234 BEDS AT THE [facility] Piperacillin/Tazobactam/ 50 mls @ 12.5 mls/hr 05/05/17 21:00 Dextrose 3.375 gm/ IV Solution IVPB Q12HR COUNTS INCLUDE 234 BEDS AT THE [facility] Sodium Chloride 1,000 mls @ 20 mls/hr 05/05/17 07:00 Saline 0.9% IV .Q24H COUNTS INCLUDE 234 BEDS AT THE [facility] Heparin Sodium/Sodium Chloride 500 mls @ 20 mls/hr 05/05/17 08:00 05/05/17 08 :26 25,000 unit/ Sodium Chloride IV 10.449 units/kg/hr .Q24H JONEL 20 mls/hr 10.449 UNITS/KG/HR Administration Levofloxacin 500 mg/ IV 100 mls @ 100 mls/hr 05/07/17 08:00 Solution IVPB Q48H JONEL Insulin Aspart 10 unit 05/05/17 12:30 05/05/17 13:02 Novolog SQ 10 unit AC-TID JONEL Administration Insulin Aspart 0 unit 05/05/17 12:30 05/05/17 13:02 Novolog SQ 5 unit ACHS JONEL Administration Protocol Insulin Detemir 20 unit 05/06/17 09:00 Levemir SQ QAM JONEL Insulin Detemir 40 unit 05/05/17 21:00 Levemir SQ HS JONEL Isosorbide Mononitrate 30 mg 05/06/17 09:00 Imdur PO DAILY JONEL Magnesium Oxide 400 mg 05/06/17 09:00 Mag-Ox PO DAILY COUNTS INCLUDE 234 BEDS AT THE [facility] Metoprolol Succinate 100 mg 05/06/17 09:00 Toprol Xl PO DAILY COUNTS INCLUDE 234 BEDS AT THE [facility] Miscellaneous Information 1 each 05/05/17 06:50 Pneumonia Protocol Utilized PO ONCE PRN Per Protocol Nitroglycerin 0.5 inch 05/05/17 12:00 Nitro-Bid Oint TOPICAL 05/06/17 08:59 Q6HR JONEL Pantoprazole Sodium 40 mg 05/06/17 07:30 Protonix PO AC-BRKFST JONEL Intake and Output 05/04/17 05/05/17 05/05/17 22:59 06:59 14:59 Other: Weight 95.708 kg 97 kg Patient Weight 05/06/17 06:59 Weight 97 kg 05/05/17 06:31 05/05/17 06:31 Assessment and Plan Assessment: Assessment #1 acute respiratory failure #2 congestive heart failure exacerbation likely secondary to diastolic dysfunction #3 possible pneumonia #4 sinus tachycardia #5 in stage renal disease on hemodialysis #6 mildly abnormal cardiac enzymes #7 multiple comorbid conditions. Plan #1 I will DC the Lasix by mouth and start the patient on Lasix IV #2 continue the heparin IV for now and follow-up on the serial cardiac enzymes to rule out any acute coronary event #3 we'll obtain an echocardiogram was Doppler #4 obtain the previous medical records from the office #5 follow-up with the patient. Thank you for allowing us participate in her care.
[2017-05-05] MEDS: NITROGLYCERIN OINT 1 INCH/GM PACKET TOPICAL SCH ×3 (15:09→23:56)
[2017-05-05] MEDS ORDERED: HEPARIN SODIUM,PORCINE 5,000 UNIT/ML 1 ML VIAL IV PRN (15:15)
[2017-05-05 15:37] LABS: INR 1.2 (<1.2); Prothrombin Time 11.3 sec (9.0-12.0)
[2017-05-05] MEDS ORDERED: FUROSEMIDE 80 MG TAB PO SCH (16:00)
--- NOTE | 2017-05-05 16:20 | P.CNPUL ---
History of Present Illness Consult date: 05/05/17 Reason for consult: dyspnea History of present illness: This is a 71-year-old female patient, morbidly obese along with known history of multivessel coronary artery disease and the patient has declined coronary artery bypass surgery a few years back, in addition to moderate degree of aortic stenosis, chronic atrial fibrillation, diastolic heart failure/ hypertensive heart disease, diabetes mellitus in addition to hyperlipidemia and hypertension and chronic renal failure which progressed over the past several months and the patient got started on dialysis through a permacath in her right IJ inserted approximately 3 months ago and the patient is undergoing dialysis 3 times a week Tuesdays and Saturdays and she has a pending left arm AV fistula later stage. The patient underwent her last dialysis yesterday. Over the past 24-48 hours the patient started having flulike symptoms with sore throat nasal congestion and postnasal drainage. She was seen by her primary care physician and she was given antibiotics and steroids. The patient was not getting any better and the patient came into the hospital because of worsening shortness of breath. Initial chest x-ray showed increased pulmonary vascular marking early pulmonary edema. No consolidation. No airspace disease or no pneumonias. Lactic acid level was more than 4 in the patient's white cell count was 34. The patient was started on empiric antibiotic coverage and currently is on a combination of Zosyn and Levaquin. Blood cultures still pending. BNP level is 9700. The patient was briefly placed on BiPAP and currently she is off BiPAP on 3 L of oxygen by nasal cannula. No previous history of DVT or pulmonary embolism. No previous history of obstructive sleep apnea. She is morbidly obese. No significant swelling in lower extremities at this point. Review of Systems Constitutional: Endorses chills, fever, lethargy for the past week Denies weight loss Eyes: denies decreased vision, denies diplopia, denies discharge, denies pain Ears: deny: decreased hearing Ears, nose, mouth and throat: Denies dental pain, Denies headache, Denies nasal discharge, Denies nose pain Cardiovascular: Denies chest pain, endorses decreased exercise tolerance, endorses edema, endorses high blood pressure, Denies irregular heart beat, endorses palpitations, Denies paroxysmal nocturnal dyspnea, endorses rapid heart beat, endorses shortness of breath. Respiratory: Endorses congestion, endorses cough, endorses cough with sputum, endorses dyspnea, Denies home oxygen, Denies wheezing does not wear CPAP at night, however the patient has clinical symptoms of obstructive sleep apnea with loud snoring and occasional waking up in the middle of the night gasping for air. Gastrointestinal: Denies abdominal pain, Denies change in bowel habits, Denies coffee ground emesis, Denies early satiety, Denies excessive gas, Denies heartburn, Denies hematemesis, Denies hematochezia, Denies loss of appetite, Denies nausea, Denies vomiting Genitourinary: Denies dysuria, Denies flank pain, Denies kidney stones, Denies menorrhagia, Denies urgency, Denies urinary frequency, and the patient is not making much of a urine. The patient has a permacath for dialysis. Exit site is clean. Musculoskeletal: Patient is wheelchair bound with limitation of motion due to increased weakness Integumentary: Denies rash, Denies wounds, Denies brittle nails, Denies change in hair/nails, Denies darkening of skin Neurological: Denies balance difficulties, Denies change in speech, Denies double vision, Denies gait dysfunction, Denies loss of vision, Denies motor disturbance, Denies numbness, Denies paralysis, Denies paresthesias, Denies seizures Psychiatric: Denies anxiety, Denies depression Endocrine: Denies excessive sweating, Denies excessive thirst, Denies high blood sugars, Denies palpitations Hematologic/Lymphatic: Denies easy bruising, Denies lymphadenopathy Past Medical History Past Medical History: Atrial Fibrillation, Coronary Artery Disease (CAD), Heart Failure, COPD, Diabetes Mellitus, GERD/Reflux, Hyperlipidemia, Hypertension, Myocardial Infarction ([place]), Pneumonia, Renal Disease Additional Past Medical History / Comment(s): Morbid obesity, coronary artery disease, moderate aortic stenosis, chronic atrial fibrillation, diabetes mellitus, hypertension, hyperlipidemia, and stage renal disease secondary to diabetic nephropathy and the patient is currently on dialysis 3 times a week TTS , temporary dialysis catheter/permacath in the right chest, chronic back pain, peripheral neuropathy, chronic anemia Last Myocardial Infarction Date:: 05/28/2015 History of Any Multi-Drug Resistant Organisms: MRSA Date of last positivie culture/infection: 06/2010 MDRO Source:: wounds in L foot/abdomin Past Surgical History: Back Surgery, Cholecystectomy, Heart Catheterization, Hysterectomy, Orthopedic Surgery Additional Past Surgical History / Comment(s): Lumbar decompression/fusion with revision, surgery on T8-T9, temporary hemodialysis cath in chest wall, Picc line insertion/removal, bilateral carpal tunnel release, pain procedures, bilateral cataract removal with lens implants, colonoscopy. Past Anesthesia/Blood Transfusion Reactions: No Reported Reaction Additional Past Anesthesia/Blood Transfusion Reaction / Comment(s): Possible confusion that resolved. Pt has received blood in past without reaction. Smoking Status: Never smoker - Past Family History Father Additional Family Medical History / Comment(s): Brain aneurysm ; age 72 Sister(s) Family Medical History: Hypertension Additional Family Medical History / Comment(s): Aortic stenosis; mitral valve disease Mother Family Medical History: AFIB, CVA/TIA, Hypertension Additional Family Medical History / Comment(s): mother age 83 Daughter(s) Family Medical History: Asthma Son(s) Family Medical History: Asthma Medications and Allergies Home Medications Medication Instructions Recorded Confirmed Type DULoxetine HCL [Cymbalta] 60 mg PO DAILY 08/04/14 05/05/17 History Fish Oil/Dha/Epa [Fish Oil 1,200 1 cap PO MOWEFR 08/04/14 05/05/17 History mg Fish Oil] Amiodarone HCl [Pacerone] 100 mg PO DAILY 11/22/15 05/05/17 History Apixaban [Eliquis] 2.5 mg PO BID 11/22/15 05/05/17 History Aspirin EC [Ecotrin Low Dose] 81 mg PO DAILY 11/22/15 05/05/17 History Cetirizine HCl [Zyrtec] 10 mg PO DAILY 11/22/15 05/05/17 History Docusate [Colace] 100 mg PO BID 11/22/15 05/05/17 History Ezetimibe [Zetia] 10 mg PO DAILY 11/22/15 05/05/17 History Isosorbide Mononitrate ER [Imdur] 30 mg PO DAILY 11/22/15 05/05/17 History Gabapentin [Neurontin] 300 mg PO BID #60 capsule 11/27/15 05/05/17 Rx Cranberry 4200mg-Vitamin C 1 tab PO BID 12/25/16 05/05/17 History Omeprazole 20 mg PO DAILY 12/25/16 05/05/17 History Cholecalciferol (Vitamin D3) 2,000 unit PO DAILY 12/31/16 05/05/17 History [Vitamin D3] Furosemide [Lasix] 80 mg PO BID@0900,1600 tab 01/13/17 05/05/17 Rx Ipratropium-Albuterol Nebulize 3 ml INHALATION RT-QID PRN neb 01/13/17 Rx [Duoneb 0.5 mg-3 mg/3 ml Soln] Ferrous Sulfate [Feosol] 325 mg PO DAILY 05/05/17 05/05/17 History Insulin Aspart [NovoLOG 10 unit SQ AC-TID 05/05/17 05/05/17 History (formulary)] Insulin Aspart [NovoLOG See Protocol SQ AC-TID 05/05/17 05/05/17 History (formulary)] Insulin Glargine [Lantus] 30 unit SQ QAM 05/05/17 05/05/17 History Insulin Glargine [Lantus] 50 unit SQ HS 05/05/17 05/05/17 History Magnesium Oxide [Mag-Ox] 250 mg PO DAILY 05/05/17 05/05/17 History Metoprolol Succinate (ER) [Toprol 100 mg PO DAILY 05/05/17 05/05/17 History Xl] NIFEdipine [NIFEdipine ER] 30 mg PO DAILY 05/05/17 05/05/17 History Allergies Allergy/AdvReac Type Severity Reaction Status Date / Time KUSHAL Inhibitors Allergy Swelling Verified 05/05/17 07:23 ARB-Angiotensin Receptor Allergy Swelling Verified 05/05/17 07:23 Antagonist cephalexin monohydrate Allergy Rash/Hives Verified 05/05/17 07:23 [From Keflex] propoxyphene HCl AdvReac Hallucinati Verified 05/05/17 07:23 [From Darvon] ons [id number] Reductase AdvReac Myalgia Verified 05/05/17 07:23 Inhibitor Physical Exam Vitals: Vital Signs Temp Pulse Pulse Resp BP BP Pulse Ox 05/05/17 15:48 100 05/05/17 15:22 99.3 F 102 H 20 135/64 94 L 05/05/17 12:34 96 05/05/17 12:15 97.6 F 102 H 20 131/58 96 05/05/17 11:56 97.5 F L 102 H 18 136/65 99 05/05/17 11:25 102 H 05/05/17 11:18 99 18 136/65 99 05/05/17 11:12 98 18 05/05/17 10:41 100 18 144/72 97 05/05/17 08:34 102 H 24 123/58 95 05/05/17 08:16 109 H 05/05/17 08:13 24 05/05/17 08:02 100 20 05/05/17 07:54 102 H 24 100/54 100 05/05/17 07:50 100 20 05/05/17 06:50 110 H 27 H 106/57 98 05/05/17 06:20 97.5 F L 125 H 28 H 162/76 78 L Intake and Output 05/05/17 05/05/17 05/05/17 06:59 14:59 22:59 Intake Total 118 Balance 118 Intake: Oral 118 Other: Voiding Method Incontinent Incontinent # Voids 0 Weight 95.708 kg 97 kg Patient Weight 05/06/17 06:59 Weight 97 kg Morbidly obese, comfortable no acute distress.Head exam was generally normal. There was no scleral icterus or corneal arcus. Mucous membranes were moist. Neck is short and supple and the patient has significant crowding of the posterior pharynx. The patient is a Mallampati class IV. Lung sounds are diminished bilaterally otherwise clear. Few bibasilar crackles. Heart sounds are irregular there is systolic ejection murmur grade 3/6 heard throughout the precordium.Abdominal exam revealed normal bowel sounds. The abdomen was soft, non-tender, and without masses, organomegaly, or appreciable enlargement of the abdominal aorta.Examination of the extremities revealed easily palpable radial, femoral and pedal pulses. There was no cyanosis, clubbing or edema.Examination of the skin revealed no evidence of significant rashes, suspicious appearing nevi or other concerning lesions. The exit site of the temporary dialysis catheter dry clean and intact. Neurologically the patient is awake and alert and there is no focal neurological deficit at this point.Examination of the skin revealed no evidence of significant rashes, suspicious appearing nevi or other concerning lesions. Results - Laboratory Findings CBC and BMP: 05/05/17 06:31 05/05/17 06:31 PT/INR, D-dimer PT 11.3 sec (9.0-12.0) 05/05/17 14:15 INR 1.2 (<1.2) H 05/05/17 14:15 Abnormal lab findings: Abnormal Labs 05/05/17 05/05/17 05/05/17 06:31 06:31 06:31 WBC 34.2 H* RBC 3.70 L MCV 101.5 H MCHC 30.3 L RDW 16.0 H Neutrophils # (Manual) 20.86 H Lymphocytes # (Manual) 11.29 H Monocytes # (Manual) 2.05 H INR APTT Chloride 96 L BUN 24 H Creatinine 2.84 H Glucose 267 H POC Glucose (mg/dL) Plasma Lactic Acid Satinder Phosphorus 6.2 H AST 45 H Alkaline Phosphatase 240 H CK-MB (CK-2) 7.4 H* Troponin I 0.471 H* Albumin 3.4 L 05/05/17 05/05/17 05/05/17 06:31 12:15 14:15 WBC RBC MCV MCHC RDW Neutrophils # (Manual) Lymphocytes # (Manual) Monocytes # (Manual) INR APTT 38.5 H Chloride BUN Creatinine Glucose POC Glucose (mg/dL) 315 H Plasma Lactic Acid Satinder 4.3 H* Phosphorus AST Alkaline Phosphatase CK-MB (CK-2) Troponin I Albumin 05/05/17 14:15 WBC RBC MCV MCHC RDW Neutrophils # (Manual) Lymphocytes # (Manual) Monocytes # (Manual) INR 1.2 H APTT Chloride BUN Creatinine Glucose POC Glucose (mg/dL) Plasma Lactic Acid Satinder Phosphorus AST Alkaline Phosphatase CK-MB (CK-2) Troponin I Albumin - Diagnostic Findings Chest x-ray: image reviewed Assessment and Plan Plan: Assessment 1 acute dyspnea along with a hypoxic history failure. Chest x-rays consistent with increased vascular marking and fluid overload. Underlying CHF cannot be completely excluded. Contributing factors could be renal failure and the patient is known to have hypertensive heart disease and moderate degree of aortic stenosis on her echocardiogram. Superimposed pneumonia is felt to be less likely 2 acute leukocytosis, rule out underlying infectious source/sepsis. The patient has a permacath the site of which is dry clean and intact. Blood cultures still pending for now. Meanwhile the patient is covered with empiric antibiotic coverage with Zosyn and Levaquin 3 coronary artery disease and the patient has multivessel coronary artery disease and she has declined bypass surgery in the past, troponin leak, rule out acute non-ST segment elevation myocardial infarction , under investigation with cardiology 4 chronic paroxysmal atrial fibrillation 5 hypertensive heart disease/diastolic dysfunction 6 diabetes mellitus 7 End stage renal disease currently on hemodialysis. The patient has history of diabetic nephropathy 8 morbid obesity with obvious clinical features of obstructive sleep apnea 9 hypertension 10 diabetic peripheral neuropathy 11 right bundle branch block with left anterior fascicular block Plan The patient will be diuresis with IV Lasix. Nephrology will be evaluating this patient for another dialysis session with the next 24 hours. Monitor white count and monitor cultures. Continued empiric antibiotic coverage for now. Repeat echocardiogram. We'll continue to follow. The patient is currently off the BiPAP and she is feeling better she says short of breath and she is on few liters of oxygen nasal cannula.
[2017-05-05 16:32] LABS: Glucose,Whole Blood 305 mg/dL (75-99)
[2017-05-05] MEDS: DILTIAZEM ORAL 30 MG TAB PO SCH ×2 (17:16→21:03)
[2017-05-05] MEDS: SODIUM CHLORIDE 0.9% 1,000 ML IV SCH (17:16)
[2017-05-05] MEDS ORDERED: APIXABAN 2.5 MG TABLET PO SCH (21:00)
[2017-05-05] MEDS ORDERED: INSULIN DETEMIR 100 UNIT/ML 10 ML VIAL SQ SCH (21:00)
[2017-05-05] MEDS: FUROSEMIDE 10 MG/ML 4 ML VIAL IV SCH (21:03)
[2017-05-05] MEDS: DOCUSATE 100 MG CAP PO SCH (21:03)
[2017-05-05] MEDS: GABAPENTIN 300 MG CAP PO SCH (21:03)
[2017-05-05] MEDS: PIPERACILLIN-TAZOBACTAM 3.375 GM in DEXTROSE/WATER 1 50ML.BAG IVPB SCH (21:06)
[2017-05-05] MEDS: INSULIN DETEMIR 100 UNIT/ML 10 ML VIAL SQ SCH (21:19)
[2017-05-05 21:27] LABS: Glucose,Whole Blood 311 mg/dL (75-99)
[2017-05-06] MEDS: NITROGLYCERIN OINT 1 INCH/GM PACKET TOPICAL SCH (05:58)
[2017-05-06 06:07] LABS: Glucose,Whole Blood 228 mg/dL (75-99)
[2017-05-06] MEDS: INSULIN ASPART 100 UNIT/ML 1 ML 10 ML VIAL SQ SCH ×7 (06:15→21:34)
[2017-05-06] MEDS: PANTOPRAZOLE 40 MG TABLET PO SCH (06:18)
[2017-05-06 06:30] LABS: Basophils % (A) 0 %; Eosinophils # (A) 0.1 k/uL (0-0.7); Eosinophils % (A) 0 %; Lymphocytes # (A) 1.1 k/uL (1.0-4.8); Lymphocytes % (A) 5 %; MCHC 31.7 g/dL (31.0-37.0); MCV 97.7 fL (80.0-100.0); Mean Platelet Volume 8.2; Monocytes # (A) 0.9 k/uL (0-1.0); Monocytes % (A) 4 %; Neutrophils % (A) 90 %; Platelet Count 274 k/uL (150-450); RBC 3.17 m/uL (3.80-5.40); RDW 14.8 % (11.5-15.5); WBC 22.3 k/uL (3.8-10.6)
[2017-05-06 06:43] LABS: Albumin 3.3 g/dL (3.5-5.0); Calcium 9.3 mg/dL (8.4-10.2); Potassium 4.6 mmol/L (3.5-5.1); Total Bilirubin 0.5 mg/dL (0.2-1.3); Total Protein 7.2 g/dL (6.3-8.2)
[2017-05-06 06:46] LABS: HGB 9.8 gm/dL (11.4-16.0)
[2017-05-06] MEDS ORDERED: LEVOFLOXACIN 750MG-D5W PMX 750 MG in DEXTROSE/WATER 1 150ML.BAG IVPB SCH (06:50)
--- NOTE | 2017-05-06 08:12 | ECHOF ---
Referral Reason:CHF MEASUREMENTS -------- HEIGHT: 157.5 cm WEIGHT: 95.7 kg BP: 131/58 LVOT Diam: 1.9 cm LALs A4C: 6.9 cm LAAs A4C: 26.1 cm LAESV A-L A4C: 83 ml LAESV MOD A4C: 76 ml LALs A2C: 5.8 cm LAAs A2C: 28.7 cm LAESV A-L A2C: 120 ml LAESV MOD A2C: 117 ml LAESV(A-L): 110 ml LAESV Index (A-L): 55.90 ml/m Ao Diam: 2.7 cm (2.0 - 3.7) AV Cusp: 0.7 cm (1.5 - 2.6) LA Diam: 4.2 cm (2.7 - 3.8) MV E Yared: 1.52 m/s MV DecT: 242 ms MV Dec Shasta: 6.3 m/s MV A Yared: 1.92 m/s MV E/A Ratio: 0.79 E/E': 36.57 E': 0.04 m/s MVA (VTI): 1.2 cm MV PHT: 100 ms MVA By PHT: 2.2 cm MV Vmax: 2.29 m/s MV Vmean: 1.24 m/s MV maxP.05 mmHg MV meanP.33 mmHg MV VTI: 52.0 cm LVOT Vmax: 1.03 m/s LVOT Vmean: 0.80 m/s LVOT maxP.25 mmHg LVOT meanP.78 mmHg LVOT Env.Ti: 288 ms LVOT VTI: 23.1 cm AV Vmax: 3.42 m/s AV Vmean: 2.47 m/s AV maxP.70 mmHg AV meanP.13 mmHg AV Env.Ti: 288 ms AV VTI: 71.3 cm LIZZ Vmax: 0.8 cm LIZZ (VTI): 0.9 cm AVAI (VTI): 0.457 cm/m AVAI Vmax: 0.424 cm/m TR Vmax: 3.11 m/s TR maxP.76 mmHg RAP: 5.00 mmHg RVSP: 43.76 mmHg FINDINGS -------- Sinus rhythm. This was a technically difficult study with suboptimal views. The left ventricular size is normal. Overall left ventricular systolic function is low-normal with, an EF between 50 - 55 %. Apical lateral LV wall motion is hypokinetic. Apical inferior LV wall motion is hypokinetic. Apical septum LV wall motion is hypokinetic. The right ventricle is normal in size. LA is severely dilated >40 ml/m2 The right atrium is normal in size. 2 ml of Lumason was utilized for enhancement of images Aortic valve is trileaflet and is moderately thickened. There is no evidence of aortic regurgitatio n. There is moderate aortic stenosis present. Peak/mean gradient across the Aortic Valve is 46.70 mmHg / 27.13mmHg. The mitral valve leaflets are mild to moderately thickened. Moderate mitral annular calcification present. [id number] mitral regurgitation is present. Mild tricuspid regurgitation present. There is mild pulmonary hypertension. The right ventricular systolic pressure, as measured by Doppler, is 43.76mmHg. The pulmonic valve was not well visualized. The aortic root size is normal. Normal inferior vena cava with normal inspiratory collapse consistent with estimated right atrial pre ssure of 5 mmHg. The pericardium is normal. There is no pericardial effusion. CONCLUSIONS -------- 1. Sinus rhythm. 2. This was a technically difficult study with suboptimal views. 3. The left ventricular size is normal. 4. Overall left ventricular systolic function is low-normal with, an EF between 50 - 55 %. 5. Apical lateral LV wall motion is hypokinetic. 6. Apical inferior LV wall motion is hypokinetic. 7. Apical septum LV wall motion is hypokinetic. 8. LA is severely dilated >40 ml/m2 9. 2 ml of Lumason was utilized for enhancement of images 10. Aortic valve is trileaflet and is moderately thickened. 11. There is moderate aortic stenosis present. 12. Peak/mean gradient across the Aortic Valve is 46.70mmHg / 27.13mmHg. 13. Moderate mitral annular calcification present. 14. [id number] mitral regurgitation is present. 15. Mild tricuspid regurgitation present. 16. There is mild pulmonary hypertension. 17. The right ventricular systolic pressure, as measured by Doppler, is 43.76mmHg. 18. The pulmonic valve was not well visualized. 19. The aortic root size is normal. 20. There is no pericardial effusion. INFORMATICS APPLICATION ANALYST: Iraj White RDCS
[2017-05-06] MEDS: IPRATROPIUM-ALBUTEROL 3 ML NEB INHALATION SCH ×4 (08:55→20:13)
[2017-05-06] MEDS ORDERED: INSULIN DETEMIR 100 UNIT/ML 10 ML VIAL SQ SCH (09:00)
[2017-05-06] MEDS: DULoxetine HCL 60 MG CAPSULE.DR PO SCH (09:08)
[2017-05-06] MEDS: EZETIMIBE 10 MG TAB PO SCH (09:08)
[2017-05-06] MEDS: DILTIAZEM ORAL 30 MG TAB PO SCH ×3 (09:08→19:48)
[2017-05-06] MEDS: AMIODARONE 100 MG TAB PO SCH (09:08)
[2017-05-06] MEDS: DOCUSATE 100 MG CAP PO SCH ×2 (09:08→19:48)
[2017-05-06] MEDS: ASPIRIN 81 MG PO SCH (09:08)
[2017-05-06] MEDS: FUROSEMIDE 10 MG/ML 4 ML VIAL IV SCH (09:09)
[2017-05-06] MEDS: FERROUS SULFATE 325 MG TAB PO SCH (09:09)
[2017-05-06] MEDS: MAGNESIUM OXIDE 400 MG TAB PO SCH (09:09)
[2017-05-06] MEDS: ISOSORBIDE MONONITRATE ER 30 MG TAB.ER.24H PO SCH (09:09)
[2017-05-06] MEDS: METOPROLOL SUCCINATE (ER) 100 MG TAB.ER.24H PO SCH (09:09)
[2017-05-06] MEDS: GABAPENTIN 300 MG CAP PO SCH ×2 (09:09→19:48)
[2017-05-06] MEDS: INSULIN DETEMIR 100 UNIT/ML 10 ML VIAL SQ SCH ×2 (09:17→21:35)
[2017-05-06] MEDS: PIPERACILLIN-TAZOBACTAM 3.375 GM in DEXTROSE/WATER 1 50ML.BAG IVPB SCH ×2 (09:18→19:51)
--- NOTE | 2017-05-06 09:35 | P.NPCON ---
History of Present Illness - Reason for Consult end stage renal disease - History of Present Illness Reason for consultation: End-stage renal disease History of present illness: Patient is a 71-year-old female seen in renal consultation for end-stage renal disease. She is maintained on hemodialysis on a Monday schedule via permacath. Patient presented to the hospital due to dyspnea. Patient does have diastolic CHF with moderate aortic stenosis and mitral regurgitation. Her chest x-ray was suggestive of fluid overload. Patient does admit to having a fever prior to admission but she's been afebrile while in the hospital. She does admit to a cough which has been persistent for the last few days but states she's not able to bring anything up. Her white count was noted to be quite elevated as well on admission. She is maintained on broad-spectrum antibiotics. She does have a permacath for dialysis access but the site appears clean and she denies any erythema or drainage from the catheter site. She denies any vomiting or diarrhea. She does make a little urine denies any hematuria or dysuria. Vital signs are stable. General: The patient appeared well nourished and normally developed. HEENT: Head exam is unremarkable. Neck is without jugular venous distension. LUNGS: Lungs are clear to auscultation and percussion. Breath sounds decreased. HEART: Rate and Rhythm are regular. First and second heart sounds normal. No murmurs, rubs or gallops. ABDOMEN: Abdominal exam reveals normal bowel sounds. Non-tender and non- distended. No evidence of peritonitis. EXTREMITITES: No clubbing, cyanosis, or edema. Past Medical History Past Medical History: Atrial Fibrillation, Coronary Artery Disease (CAD), Heart Failure, COPD, Diabetes Mellitus, GERD/Reflux, Hyperlipidemia, Hypertension, Myocardial Infarction (ID), Pneumonia, Renal Disease Additional Past Medical History / Comment(s): Morbid obesity, coronary artery disease, moderate aortic stenosis, chronic atrial fibrillation, diabetes mellitus, hypertension, hyperlipidemia, and stage renal disease secondary to diabetic nephropathy and the patient is currently on dialysis 3 times a week TTS , temporary dialysis catheter/permacath in the right chest, chronic back pain, peripheral neuropathy, chronic anemia Last Myocardial Infarction Date:: 05/28/2015 History of Any Multi-Drug Resistant Organisms: MRSA Date of last positivie culture/infection: 06/2010 MDRO Source:: wounds in L foot/abdomin Past Surgical History: Back Surgery, Cholecystectomy, Heart Catheterization, Hysterectomy, Orthopedic Surgery Additional Past Surgical History / Comment(s): Lumbar decompression/fusion with revision, surgery on T8-T9, temporary hemodialysis cath in chest wall, Picc line insertion/removal, bilateral carpal tunnel release, pain procedures, bilateral cataract removal with lens implants, colonoscopy. Past Anesthesia/Blood Transfusion Reactions: No Reported Reaction Additional Past Anesthesia/Blood Transfusion Reaction / Comment(s): Possible confusion that resolved. Pt has received blood in past without reaction. Smoking Status: Never smoker - Past Family History Father Additional Family Medical History / Comment(s): Brain aneurysm ; age 72 Sister(s) Family Medical History: Hypertension Additional Family Medical History / Comment(s): Aortic stenosis; mitral valve disease Mother Family Medical History: AFIB, CVA/TIA, Hypertension Additional Family Medical History / Comment(s): mother age 83 Daughter(s) Family Medical History: Asthma Son(s) Family Medical History: Asthma Medications and Allergies Home Medications Medication Instructions Recorded Confirmed Type DULoxetine HCL [Cymbalta] 60 mg PO DAILY 08/04/14 05/05/17 History Fish Oil/Dha/Epa [Fish Oil 1,200 1 cap PO MOWEFR 08/04/14 05/05/17 History mg Fish Oil] Amiodarone HCl [Pacerone] 100 mg PO DAILY 11/22/15 05/05/17 History Apixaban [Eliquis] 2.5 mg PO BID 11/22/15 05/05/17 History Aspirin EC [Ecotrin Low Dose] 81 mg PO DAILY 11/22/15 05/05/17 History Cetirizine HCl [Zyrtec] 10 mg PO DAILY 11/22/15 05/05/17 History Docusate [Colace] 100 mg PO BID 11/22/15 05/05/17 History Ezetimibe [Zetia] 10 mg PO DAILY 11/22/15 05/05/17 History Isosorbide Mononitrate ER [Imdur] 30 mg PO DAILY 11/22/15 05/05/17 History Gabapentin [Neurontin] 300 mg PO BID #60 capsule 11/27/15 05/05/17 Rx Cranberry 4200mg-Vitamin C 1 tab PO BID 12/25/16 05/05/17 History Omeprazole 20 mg PO DAILY 12/25/16 05/05/17 History Cholecalciferol (Vitamin D3) 2,000 unit PO DAILY 12/31/16 05/05/17 History [Vitamin D3] Furosemide [Lasix] 80 mg PO BID@0900,1600 tab 01/13/17 05/05/17 Rx Ipratropium-Albuterol Nebulize 3 ml INHALATION RT-QID PRN neb 01/13/17 Rx [Duoneb 0.5 mg-3 mg/3 ml Soln] Ferrous Sulfate [Feosol] 325 mg PO DAILY 05/05/17 05/05/17 History Insulin Aspart [NovoLOG 10 unit SQ AC-TID 05/05/17 05/05/17 History (formulary)] Insulin Aspart [NovoLOG See Protocol SQ AC-TID 05/05/17 05/05/17 History (formulary)] Insulin Glargine [Lantus] 30 unit SQ QAM 05/05/17 05/05/17 History Insulin Glargine [Lantus] 50 unit SQ HS 05/05/17 05/05/17 History Magnesium Oxide [Mag-Ox] 250 mg PO DAILY 05/05/17 05/05/17 History Metoprolol Succinate (ER) [Toprol 100 mg PO DAILY 05/05/17 05/05/17 History Xl] NIFEdipine [NIFEdipine ER] 30 mg PO DAILY 05/05/17 05/05/17 History Allergies Allergy/AdvReac Type Severity Reaction Status Date / Time KUSHAL Inhibitors Allergy Swelling Verified 05/05/17 07:23 ARB-Angiotensin Receptor Allergy Swelling Verified 05/05/17 07:23 Antagonist cephalexin monohydrate Allergy Rash/Hives Verified 05/05/17 07:23 [From Keflex] propoxyphene HCl AdvReac Hallucinati Verified 05/05/17 07:23 [From Darvon] ons Zutymbd-Mmd-Cyj Reductase AdvReac Myalgia Verified 05/05/17 07:23 Inhibitor Physical Exam Vitals: Vital Signs Temp Pulse Pulse Pulse Resp BP BP 05/06/17 09:06 108 H 05/06/17 08:55 106 H 05/06/17 08:00 96.7 F L 92 20 154/71 01/06/18 04:00 97.2 F L 98 18 157/69 05/06/17 00:00 97.2 F L 90 18 137/64 05/05/17 20:21 108 H 05/05/17 20:00 108 H 103 H 19 141/62 05/05/17 16:04 100 05/05/17 15:48 100 05/05/17 15:22 99.3 F 102 H 20 135/64 05/05/17 12:34 05/05/17 12:15 97.6 F 102 H 20 131/58 05/05/17 11:56 97.5 F L 102 H 18 136/65 05/05/17 11:25 102 H 05/05/17 11:18 99 18 136/65 05/05/17 11:12 98 18 05/05/17 10:41 100 18 144/72 Pulse Ox 05/06/17 09:06 05/06/17 08:55 86 L 05/06/17 08:00 94 L 05/06/17 04:00 97 05/06/17 00:00 95 05/05/17 20:21 05/05/17 20:00 95 05/05/17 16:04 05/05/17 15:48 05/05/17 15:22 94 L 05/05/17 12:34 96 05/05/17 12:15 96 05/05/17 11:56 99 05/05/17 11:25 05/05/17 11:18 99 05/05/17 11:12 05/05/17 10:41 97 Intake and Output 05/05/17 05/06/17 05/06/17 22:59 06:59 14:59 Intake Total 158 300 Balance 158 300 Intake: IV 40 0.9@40mls/hr 40 Oral 118 300 Other: Voiding Method Incontinent Incontinent Weight 100.5 kg Results - Lab Results Most recent lab results Calcium 9.3 mg/dL (8.4-10.2) 05/06/17 06:11 Phosphorus 6.2 mg/dL (2.5-4.5) H 05/05/17 06:31 Magnesium 2.0 mg/dL (1.6-2.3) 05/05/17 06:31 05/06/17 06:11 05/06/17 06:11 Assessment and Plan Plan: Assessment: #1. End-stage renal disease maintained on hemodialysis on a Monday schedule via permacath. #2. Dyspnea related to fluid overload as well as concern for underlying pneumonia. #3. Diabetes mellitus. #4. Volume overload. #5. Anemia of chronic kidney disease. Rule out iron deficiency. #6. Diastolic CHF with moderate aortic stenosis and mitral regurgitation. #7. Hypertension with chronic kidney disease. Controlled. Plan: Hemodialysis today with goal 3-4 L ultrafiltration. Check phosphorus level. Check iron studies. Follow-up cultures. Maintain antibiotics. Thank you for the consultation. I will continue to follow the patient with you during her hospital stay.
--- NOTE | 2017-05-06 10:57 | P.PN ---
Subjective Progress Note Date: 05/06/17 patient continued to be lethargic no major events reported by nursing staff patient is alert and oriented following commands denying chest pain shortness breath nausea vomiting abdominal pain dizziness or lightheadedness Objective - Vital Signs Vital signs: Vital Signs Temp 96.7 F L 05/06/17 08:00 Pulse 108 H 05/06/17 09:06 Resp 20 05/06/17 08:00 BP 154/71 05/06/17 08:00 Pulse Ox 86 L 05/06/17 08:55 Intake & Output 05/05/17 05/06/17 05/06/17 18:59 06:59 18:59 Intake Total 236 340 Balance 236 340 Weight 97 kg 100.5 kg Intake: IV 40 0.9@40mls/hr 40 Oral 236 300 Other: Voiding Method Incontinent Incontinent # Voids 0 - Exam lungs diminished bilaterally Heart normal S1-S2 Lower extremity positive for edema bilaterally Psych as above Skin no new rash - Labs CBC & Chem 7: 05/06/17 06:11 05/06/17 06:11 Labs: Abnormal Lab Results - Last 24 Hours (Table) 05/05/17 05/05/17 05/05/17 Range/Units 12:15 14:15 14:15 WBC (3.8-10.6) k/uL RBC (3.80-5.40) m/uL Hgb (11.4-16.0) gm/dL Hct (34.0-46.0) % Neutrophils # (1.3-7.7) k/uL INR 1.2 H (<1.2) APTT 38.5 H (22.0-30.0) sec Sodium (137-145) mmol/L Chloride (98-107) mmol/L BUN (7-17) mg/dL Creatinine (0.52-1.04) mg/dL Glucose (74-99) mg/dL POC Glucose (mg/dL) 315 H (75-99) mg/dL Phosphorus (2.5-4.5) mg/dL AST (14-36) U/L Alkaline Phosphatase (38-126) U/L Albumin (3.5-5.0) g/dL 05/05/17 05/05/17 05/05/17 Range/Units 16:30 21:13 23:20 WBC (3.8-10.6) k/uL RBC (3.80-5.40) m/uL Hgb (11.4-16.0) gm/dL Hct (34.0-46.0) % Neutrophils # (1.3-7.7) k/uL INR (<1.2) APTT 49.2 H (22.0-30.0) sec Sodium (137-145) mmol/L Chloride (98-107) mmol/L BUN (7-17) mg/dL Creatinine (0.52-1.04) mg/dL Glucose (74-99) mg/dL POC Glucose (mg/dL) 305 H 311 H (75-99) mg/dL Phosphorus (2.5-4.5) mg/dL AST (14-36) U/L Alkaline Phosphatase (38-126) U/L Albumin (3.5-5.0) g/dL 05/06/17 05/06/17 05/06/17 Range/Units 06:03 06:11 06:11 WBC 22.3 H (3.8-10.6) k/uL RBC 3.17 L (3.80-5.40) m/uL Hgb 9.8 L D (11.4-16.0) gm/dL Hct 31.0 L (34.0-46.0) % Neutrophils # 20.0 H (1.3-7.7) k/uL INR (<1.2) APTT (22.0-30.0) sec Sodium 133 L (137-145) mmol/L Chloride 94 L (98-107) mmol/L BUN 43 H (7-17) mg/dL Creatinine 4.10 H (0.52-1.04) mg/dL Glucose 227 H (74-99) mg/dL POC Glucose (mg/dL) 228 H (75-99) mg/dL Phosphorus (2.5-4.5) mg/dL AST 41 H (14-36) U/L Alkaline Phosphatase 180 H (38-126) U/L Albumin 3.3 L (3.5-5.0) g/dL 05/06/17 05/06/17 Range/Units 06:11 06:11 WBC (3.8-10.6) k/uL RBC (3.80-5.40) m/uL Hgb (11.4-16.0) gm/dL Hct (34.0-46.0) % Neutrophils # (1.3-7.7) k/uL INR (<1.2) APTT 45.9 H (22.0-30.0) sec Sodium (137-145) mmol/L Chloride (98-107) mmol/L BUN (7-17) mg/dL Creatinine (0.52-1.04) mg/dL Glucose (74-99) mg/dL POC Glucose (mg/dL) (75-99) mg/dL Phosphorus 6.4 H (2.5-4.5) mg/dL AST (14-36) U/L Alkaline Phosphatase (38-126) U/L Albumin (3.5-5.0) g/dL Microbiology - Last 24 Hours (Table) 05/05/17 06:31 Blood Culture - Preliminary Blood No Growth after 24 hours Assessment and Plan Assessment: 1. Leukocytosislikely secondary to pneumonia. We will continue current antibiotics and follow up on white blood count closely. 2. Acute respiratory failure with hypoxia. Multifactorial. Continue optimizing her medical management. 3.paroxysmal fibrillation. Continue current medication. 4. End-stage renal disease with continue dialysis 3 times weekly. 5. Congestive heart failure with exacerbation. We'll continue diuretics, dialysis and follow-up with cardiology recommendations. 6. Severe debility and deconditioning. PT OT to evaluate the patient 7. Prognosis remained guarded
[2017-05-06 11:42] LABS: Glucose,Whole Blood 154 mg/dL (75-99)
--- NOTE | 2017-05-06 13:03 | P.PN ---
Subjective Progress Note Date: 05/06/17 This is a 71-year-old female patient, morbidly obese along with known history of multivessel coronary artery disease and the patient has declined coronary artery bypass surgery a few years back, in addition to moderate degree of aortic stenosis, chronic atrial fibrillation, diastolic heart failure/ hypertensive heart disease, diabetes mellitus in addition to hyperlipidemia and hypertension and chronic renal failure which progressed over the past several months and the patient got started on dialysis through a permacath in her right IJ inserted approximately 3 months ago and the patient is undergoing dialysis 3 times a week Tuesdays and Saturdays and she has a pending left arm AV fistula later stage. The patient underwent her last dialysis yesterday. Over the past 24-48 hours the patient started having flulike symptoms with sore throat nasal congestion and postnasal drainage. She was seen by her primary care physician and she was given antibiotics and steroids. The patient was not getting any better and the patient came into the hospital because of worsening shortness of breath. Initial chest x-ray showed increased pulmonary vascular marking early pulmonary edema. No consolidation. No airspace disease or no pneumonias. Lactic acid level was more than 4 in the patient's white cell count was 34. The patient was started on empiric antibiotic coverage and currently is on a combination of Zosyn and Levaquin. Blood cultures still pending. BNP level is 9700. The patient was briefly placed on BiPAP and currently she is off BiPAP on 3 L of oxygen by nasal cannula. No previous history of DVT or pulmonary embolism. No previous history of obstructive sleep apnea. She is morbidly obese. No significant swelling in lower extremities at this point. On 05/06/2017 the patient is being seen in the follow-up. The patient is resting comfortably in bed. No fever or chills to she is undergoing dialysis and this is her routine dialysis day. Her white cell count is improving. She had leukocytosis at time of presentation which is improving. No fever. No chills. The dialysis catheter exit site is dry clean and intact. The blood culture has been negative thus far. The patient is covered empirically with a combination of Zosyn and Levaquin. No change in mental status. No chest pain. No other complaints otherwise. Objective - Vital Signs Vital signs: Vital Signs Temp 96.5 F L 05/06/17 11:57 Pulse 95 05/06/17 12:22 Resp 18 05/06/17 11:57 BP 101/50 05/06/17 11:57 Pulse Ox 95 05/06/17 11:57 Intake & Output 05/05/17 05/06/17 05/06/17 18:59 06:59 18:59 Intake Total 236 340 120 Balance 236 340 120 Weight 97 kg 100.5 kg Intake: IV 40 0.9@40mls/hr 40 Oral 236 300 120 Other: Voiding Method Incontinent Incontinent # Voids 0 - Exam Morbidly obese, comfortable no acute distress.Head exam was generally normal. There was no scleral icterus or corneal arcus. Mucous membranes were moist. Neck is short and supple and the patient has significant crowding of the posterior pharynx. The patient is a Mallampati class IV. Lung sounds are diminished bilaterally otherwise clear. Few bibasilar crackles. Heart sounds are irregular there is systolic ejection murmur grade 3/6 heard throughout the precordium.Abdominal exam revealed normal bowel sounds. The abdomen was soft, non-tender, and without masses, organomegaly, or appreciable enlargement of the abdominal aorta.Examination of the extremities revealed easily palpable radial, femoral and pedal pulses. There was no cyanosis, clubbing or edema.Examination of the skin revealed no evidence of significant rashes, suspicious appearing nevi or other concerning lesions. The exit site of the temporary dialysis catheter dry clean and intact. Neurologically the patient is awake and alert and there is no focal neurological deficit at this point.Examination of the skin revealed no evidence of significant rashes, suspicious appearing nevi or other concerning lesions. - Labs CBC & Chem 7: 05/06/17 06:11 05/06/17 06:11 Labs: Abnormal Lab Results - Last 24 Hours (Table) 05/05/17 05/05/17 05/05/17 Range/Units 14:15 14:15 16:30 WBC (3.8-10.6) k/uL RBC (3.80-5.40) m/uL Hgb (11.4-16.0) gm/dL Hct (34.0-46.0) % Neutrophils # (1.3-7.7) k/uL INR 1.2 H (<1.2) APTT 38.5 H (22.0-30.0) sec Sodium (137-145) mmol/L Chloride (98-107) mmol/L BUN (7-17) mg/dL Creatinine (0.52-1.04) mg/dL Glucose (74-99) mg/dL POC Glucose (mg/dL) 305 H (75-99) mg/dL Phosphorus (2.5-4.5) mg/dL AST (14-36) U/L Alkaline Phosphatase (38-126) U/L Albumin (3.5-5.0) g/dL 05/05/17 05/05/17 05/06/17 Range/Units 21:13 23:20 06:03 WBC (3.8-10.6) k/uL RBC (3.80-5.40) m/uL Hgb (11.4-16.0) gm/dL Hct (34.0-46.0) % Neutrophils # (1.3-7.7) k/uL INR (<1.2) APTT 49.2 H (22.0-30.0) sec Sodium (137-145) mmol/L Chloride (98-107) mmol/L BUN (7-17) mg/dL Creatinine (0.52-1.04) mg/dL Glucose (74-99) mg/dL POC Glucose (mg/dL) 311 H 228 H (75-99) mg/dL Phosphorus (2.5-4.5) mg/dL AST (14-36) U/L Alkaline Phosphatase (38-126) U/L Albumin (3.5-5.0) g/dL 05/06/17 05/06/17 05/06/17 Range/Units 06:11 06:11 06:11 WBC 22.3 H (3.8-10.6) k/uL RBC 3.17 L (3.80-5.40) m/uL Hgb 9.8 L D (11.4-16.0) gm/dL Hct 31.0 L (34.0-46.0) % Neutrophils # 20.0 H (1.3-7.7) k/uL INR (<1.2) APTT 45.9 H (22.0-30.0) sec Sodium 133 L (137-145) mmol/L Chloride 94 L (98-107) mmol/L BUN 43 H (7-17) mg/dL Creatinine 4.10 H (0.52-1.04) mg/dL Glucose 227 H (74-99) mg/dL POC Glucose (mg/dL) (75-99) mg/dL Phosphorus (2.5-4.5) mg/dL AST 41 H (14-36) U/L Alkaline Phosphatase 180 H (38-126) U/L Albumin 3.3 L (3.5-5.0) g/dL 05/06/17 05/06/17 Range/Units 06:11 11:32 WBC (3.8-10.6) k/uL RBC (3.80-5.40) m/uL Hgb (11.4-16.0) gm/dL Hct (34.0-46.0) % Neutrophils # (1.3-7.7) k/uL INR (<1.2) APTT (22.0-30.0) sec Sodium (137-145) mmol/L Chloride (98-107) mmol/L BUN (7-17) mg/dL Creatinine (0.52-1.04) mg/dL Glucose (74-99) mg/dL POC Glucose (mg/dL) 154 H (75-99) mg/dL Phosphorus 6.4 H (2.5-4.5) mg/dL AST (14-36) U/L Alkaline Phosphatase (38-126) U/L Albumin (3.5-5.0) g/dL Microbiology - Last 24 Hours (Table) 05/05/17 06:31 Blood Culture - Preliminary Blood No Growth after 24 hours Assessment and Plan Plan: Assessment 1 acute dyspnea along with a hypoxic history failure. Chest x-rays consistent with increased vascular marking and fluid overload. Underlying CHF cannot be completely excluded. Contributing factors could be renal failure and the patient is known to have hypertensive heart disease and moderate degree of aortic stenosis on her echocardiogram. Superimposed pneumonia is felt to be less likely On 05/06/2017, the patient is feeling, comfortable. No respiratory distress. No cough or sputum production. She is on broad-spectrum antibiotics. She is undergoing dialysis. No obvious source of septicemia. White cell count is improving. 2 acute leukocytosis, rule out underlying infectious source/sepsis. Patient is improving and the white cell count is down and the cultures of been negative thus far and the patient is on a combination of Zosyn and Levaquin. 3 coronary artery disease and the patient has multivessel coronary artery disease and she has declined bypass surgery in the past, troponin leak, rule out acute non-ST segment elevation myocardial infarction , under investigation with cardiology 4 chronic paroxysmal atrial fibrillation 5 hypertensive heart disease/diastolic dysfunction 6 diabetes mellitus 7 End stage renal disease currently on hemodialysis. 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 Continue IV Lasix. Continue same antibiotic coverage. Awaiting blood culture results. Monitor fever pattern. Monitor respiratory status. Outpatient sleep evaluation for possible obstructive sleep apnea.
[2017-05-06] MEDS: SODIUM CHLORIDE 0.9% 1,000 ML IV SCH (13:59)
[2017-05-06 14:44] LABS: Hemoglobin A1C 8.2 % (4.0-6.0)
--- NOTE | 2017-05-06 14:44 | PN ---
PROGRESS NOTE Ms. Corrigan is 71-year-old female with known history of end-stage renal disease, on hemodialysis, history of coronary artery disease, aortic stenosis, history of atrial arrhythmia, who presented to the hospital with symptoms progressive dyspnea and fluid overload. She is feeling better today. She is undergoing dialysis. Her breathing is better. She denies any symptoms of chest pain. She denies any dizziness. She had an echocardiogram done yesterday that revealed an ejection fraction 50-55% with apical wall hypokinesis and dilatation of left ventricle. Her mean gradient across the aortic valve was 27 mmHg with moderate to severe mitral regurgitation. She continues to be on IV heparin at this point. Her medication at this time includes IV heparin, aspirin 81 mg daily, diltiazem 30 mg t.i.d., Zetia, Lasix 40 mg IV q.12 hours, insulin, levofloxacin, metoprolol succinate 100 mg daily. PHYSICAL EXAMINATION: Blood pressure 101/50 with a heart in 90s. LUNGS: No wheezes with decreased breath sounds at base. HEART: S1, S2 with systolic murmur. No diastolic murmur. ABDOMEN: Soft, obese, nontender. EXTREMITIES: No edema. LAB DATA: Revealed a hemoglobin 9.8. BUN and creatinine 43 and 4.1. Potassium 4.6. IMPRESSION: 1. Symptoms of progressive dyspnea related to fluid overload in the setting of chronic kidney disease. 2. History of coronary artery disease. 3. End-stage renal disease, on hemodialysis. 4. Mild troponin elevation, probably not reflecting a primary cardiac event. RECOMMENDATION: I will stop the IV heparin in view of the drop of her hemoglobin. Will continue rest of medical regimen. Depending on her blood pressure, adjustment of her medical regimen can be made. MMODL / IJN: [id number] /
[2017-05-06] MEDS ORDERED: VANCOMYCIN 1,000 MG in SODIUM CHLORIDE 0.9% 250 ML IVPB STA (15:03)
--- NOTE | 2017-05-06 16:34 | XR ---
EXAMINATION TYPE: XR chest 2V DATE OF EXAM: 05/06/2017 COMPARISON: Chest x-ray yesterday and older studies HISTORY: Pneumonia progress study. TECHNIQUE: Frontal and lateral views of the chest are obtained. FINDINGS: There is stable large bore right internal jugular dual-lumen dialysis catheter. There is s table cardiomegaly. There is persistent low lung volumes with right basilar opacity felt to reflect a telectasis and/or infiltrate. There are small bilateral pleural effusions felt present on lateral vie w. There is perhaps mild central vascular congestion felt stable. There is partial visualization of s urgical change in the lower thoracic and lumbar spine. IMPRESSION: Persistent mild cardiomegaly with small bilateral pleural effusions likely stable and as sociated right basilar infiltrate and/or atelectasis perhaps slightly worse.
[2017-05-06 16:44] LABS: Glucose,Whole Blood 134 mg/dL (75-99)
[2017-05-06 17:37] LABS: Iron Saturation 23.8 (12.00-45.00)
[2017-05-06] MEDS: FUROSEMIDE 10 MG/ML 10 ML VIAL IV SCH (19:51)
[2017-05-06 21:28] LABS: Glucose,Whole Blood 101 mg/dL (75-99)
[2017-05-07] MEDS: IPRATROPIUM-ALBUTEROL 3 ML NEB INHALATION PRN (02:52)
[2017-05-07] MEDS: SODIUM CHLORIDE 0.9% 1,000 ML IV SCH (06:20)
[2017-05-07] MEDS: INSULIN ASPART 100 UNIT/ML 1 ML 10 ML VIAL SQ SCH ×7 (06:23→21:36)
[2017-05-07] MEDS: PANTOPRAZOLE 40 MG TABLET PO SCH (06:24)
[2017-05-07 06:32] LABS: Glucose,Whole Blood 138 mg/dL (75-99)
[2017-05-07 07:18] LABS: Basophils # (A) 0.1 k/uL (0-0.2); Basophils % (A) 0 %; Eosinophils # (A) 0.1 k/uL (0-0.7); Eosinophils % (A) 0 %; HCT 31.9 % (34.0-46.0); HGB 9.8 gm/dL (11.4-16.0); Hypochromasia Slight; Lymphocytes # (A) 1.8 k/uL (1.0-4.8); Lymphocytes % (A) 8 %; MCH 30.6 pg (25.0-35.0); MCHC 30.6 g/dL (31.0-37.0); Macrocytosis Slight; Mean Platelet Volume 7.9; Monocytes # (A) 0.9 k/uL (0-1.0); Monocytes % (A) 4 %; Neutrophils # (A) 18.2 k/uL (1.3-7.7); Neutrophils % (A) 86 %; Platelet Count 363 k/uL (150-450); RBC 3.19 m/uL (3.80-5.40); WBC 21.3 k/uL (3.8-10.6)
[2017-05-07] MEDS: IPRATROPIUM-ALBUTEROL 3 ML NEB INHALATION SCH ×4 (07:20→21:32)
[2017-05-07 07:36] LABS: Albumin 3.2 g/dL (3.5-5.0); Calcium 9.2 mg/dL (8.4-10.2); Potassium 4.6 mmol/L (3.5-5.1); Total Bilirubin 0.5 mg/dL (0.2-1.3); Total Protein 6.5 g/dL (6.3-8.2)
[2017-05-07] MEDS ORDERED: LEVOFLOXACIN 500MG-D5W PMX 500 MG in DEXTROSE/WATER 1 100ML.BAG IVPB SCH (08:00)
--- NOTE | 2017-05-07 09:11 | P.PN ---
Subjective Patient is seen in follow-up for end-stage renal disease. She is maintained on hemodialysis on a Monday schedule via a permacath. Patient presented with dyspnea. She did undergo hemodialysis yesterday fed close to 4 L ultrafiltration. She does have history of moderate aortic stenosis as well as mitral regurgitation. Her blood cultures are positive for staph aureus. She did receive 1 dose of IV vancomycin yesterday. Her dyspnea has improved. Oral intake is fair. Vital signs are stable. General: The patient appeared well nourished and normally developed. HEENT: Head exam is unremarkable. Neck is without jugular venous distension. LUNGS: Lungs are clear to auscultation and percussion. Breath sounds decreased. HEART: Rate and Rhythm are regular. First and second heart sounds normal. No murmurs, rubs or gallops. ABDOMEN: Abdominal exam reveals normal bowel sounds. Non-tender and non- distended. No evidence of peritonitis. EXTREMITITES: No clubbing, cyanosis, or edema. Objective - Vital Signs Vital signs: Vital Signs Temp 97 F L 05/07/17 03:26 Pulse 101 H 05/07/17 07:33 Resp 18 05/07/17 03:26 BP 157/72 05/07/17 03:26 Pulse Ox 89 L 05/07/17 07:20 Intake & Output 05/06/17 05/07/17 05/07/17 18:59 06:59 18:59 Intake Total 1456 70 0 Balance 1456 70 0 Weight 99.5 kg Intake: IV 240 0.9@40mls/hr 240 Intake, IV Titration 256 70 Amount Heparin Sod,Pork in 0.45% 206 NaCl 25,000 unit In 0.45 % NaCl 1 500ml.bag @ 10. 31 UNITS/KG/HR 20 mls/hr IV .Q24H JONEL Rx#: [id number] Piperacillin-Tazobactam 3 50 50 .375 gm In Dextrose/Water 1 50ml.bag @ 12.5 mls/hr IVPB Q12HR JONEL Rx#: [id number] Sodium Chloride 0.9% 1, 20 000 ml @ 20 mls/hr IV . Q24H JONEL Rx#:[id number] Oral 960 0 Other: Voiding Method Incontinent # Voids 1 - Labs CBC & Chem 7: 05/07/17 06:56 05/07/17 06:56 Labs: Abnormal Lab Results - Last 24 Hours (Table) 05/05/17 05/06/17 05/06/17 Range/Units 23:20 06:11 06:11 WBC (3.8-10.6) k/uL RBC (3.80-5.40) m/uL Hgb (11.4-16.0) gm/dL Hct (34.0-46.0) % MCHC (31.0-37.0) g/dL Neutrophils # (1.3-7.7) k/uL BUN (7-17) mg/dL Creatinine (0.52-1.04) mg/dL Glucose (74-99) mg/dL POC Glucose (mg/dL) (75-99) mg/dL Hemoglobin A1c 8.2 H (4.0-6.0) % Phosphorus 6.4 H (2.5-4.5) mg/dL Ferritin 874.4 H (10.0-291.0) ng/mL Alkaline Phosphatase (38-126) U/L Albumin (3.5-5.0) g/dL 05/06/17 05/06/17 05/06/17 Range/Units 11:32 16:27 21:26 WBC (3.8-10.6) k/uL RBC (3.80-5.40) m/uL Hgb (11.4-16.0) gm/dL Hct (34.0-46.0) % MCHC (31.0-37.0) g/dL Neutrophils # (1.3-7.7) k/uL BUN (7-17) mg/dL Creatinine (0.52-1.04) mg/dL Glucose (74-99) mg/dL POC Glucose (mg/dL) 154 H 134 H 101 H (75-99) mg/dL Hemoglobin A1c (4.0-6.0) % Phosphorus (2.5-4.5) mg/dL Ferritin (10.0-291.0) ng/mL Alkaline Phosphatase (38-126) U/L Albumin (3.5-5.0) g/dL 05/07/17 05/07/17 05/07/17 Range/Units 06:18 06:56 06:56 WBC 21.3 H (3.8-10.6) k/uL RBC 3.19 L (3.80-5.40) m/uL Hgb 9.8 L (11.4-16.0) gm/dL Hct 31.9 L (34.0-46.0) % MCHC 30.6 L (31.0-37.0) g/dL Neutrophils # 18.2 H (1.3-7.7) k/uL BUN 39 H (7-17) mg/dL Creatinine 3.25 H (0.52-1.04) mg/dL Glucose 137 H (74-99) mg/dL POC Glucose (mg/dL) 138 H (75-99) mg/dL Hemoglobin A1c (4.0-6.0) % Phosphorus (2.5-4.5) mg/dL Ferritin (10.0-291.0) ng/mL Alkaline Phosphatase 183 H (38-126) U/L Albumin 3.2 L (3.5-5.0) g/dL Microbiology - Last 24 Hours (Table) 05/05/17 06:31 Blood Culture Gram Stain - Preliminary Blood 05/05/17 06:31 Blood Culture - Final Blood Assessment and Plan Plan: Assessment: #1. End-stage renal disease maintained on hemodialysis on a Monday schedule via permacath. #2. Dyspnea related to fluid overload as well as concern for underlying pneumonia. #3. Diabetes mellitus. #4. Volume overload. Improving with ultrafiltration. #5. Anemia of chronic kidney disease. #6. Diastolic CHF with moderate aortic stenosis and mitral regurgitation. #7. Hypertension with chronic kidney disease. Controlled. #8. Staph aureus bacteremia. Permacath is likely to be the source. #9. Chronic kidney disease mineral bone disease. Plan: Hemodialysis Monday with goal 3-4 L ultrafiltration. Add Renvela with meals. Add Aranesp. Follow-up cultures. Infectious disease recommendations pending. Will discuss to see if the catheter can be salvaged with antibiotics or will need to be replaced.
[2017-05-07] MEDS: PIPERACILLIN-TAZOBACTAM 3.375 GM in DEXTROSE/WATER 1 50ML.BAG IVPB SCH ×2 (10:03→21:39)
[2017-05-07] MEDS: AMIODARONE 100 MG TAB PO SCH (10:09)
[2017-05-07] MEDS: ASPIRIN 81 MG PO SCH (10:10)
[2017-05-07] MEDS: DILTIAZEM ORAL 30 MG TAB PO SCH ×3 (10:10→21:37)
[2017-05-07] MEDS: DULoxetine HCL 60 MG CAPSULE.DR PO SCH (10:11)
[2017-05-07] MEDS: EZETIMIBE 10 MG TAB PO SCH (10:11)
[2017-05-07] MEDS: GABAPENTIN 300 MG CAP PO SCH ×2 (10:12→21:37)
[2017-05-07] MEDS: DOCUSATE 100 MG CAP PO SCH ×2 (10:12→21:37)
[2017-05-07] MEDS: MAGNESIUM OXIDE 400 MG TAB PO SCH (10:12)
[2017-05-07] MEDS: ISOSORBIDE MONONITRATE ER 30 MG TAB.ER.24H PO SCH (10:13)
[2017-05-07] MEDS: METOPROLOL SUCCINATE (ER) 100 MG TAB.ER.24H PO SCH (10:13)
[2017-05-07] MEDS: FERROUS SULFATE 325 MG TAB PO SCH (10:13)
[2017-05-07] MEDS: FUROSEMIDE 10 MG/ML 10 ML VIAL IV SCH (10:14)
[2017-05-07] MEDS: INSULIN DETEMIR 100 UNIT/ML 10 ML VIAL SQ SCH ×2 (10:22→21:36)
[2017-05-07] MEDS: DARBEPOETIN ALFA 40 MCG/0.4 ML SYRINGE SQ SCH (10:51)
[2017-05-07 11:47] LABS: Glucose,Whole Blood 122 mg/dL (75-99)
[2017-05-07 11:54] LABS: Amorphous Sediment,Urine Rare /hpf; Appearance,Urine Turbid (Clear); Bilirubin,Urine Negative (Negative); Blood,Urine Negative (Negative); Color,Urine Yellow; Glucose,Urine (UA) Negative (Negative); Ketones,Urine Trace (Negative); Leukocyte Esterase,Urine Trace (Negative); Nitrite,Urine Negative (Negative); Protein,Urine 1+ (Negative); RBC,Urine 1 /hpf (0-5); Specific Gravity,Urine 1.017 (1.001-1.035); Squamous Epithelial Cell,Urine 6 /hpf (0-4); Urobilinogen,Urine <2.0 mg/dL (<2.0); WBC,Urine 3 /hpf (0-5)
[2017-05-07] MEDS: SEVELAMER 800 MG TAB PO SCH ×2 (12:39→17:29)
--- NOTE | 2017-05-07 12:42 | XR ---
EXAMINATION TYPE: XR chest 1V portable DATE OF EXAM: 05/07/2017 HISTORY: pneumonia. REFERENCE: Previous study dated 05/06/2017. FINDINGS: There is a large-bore, double-lumen catheter in place via a right internal jugular approach . Its tip is in the right atrium. There is persistent and slight worsening in the patient's right basilar airspace disease. The heart a ppears enlarged. I suspect small effusions. IMPRESSION: WORSENING RIGHT BASILAR AIRSPACE DISEASE.
--- NOTE | 2017-05-07 13:33 | P.PN ---
Subjective Progress Note Date: 05/07/17 This is a 71-year-old female patient, morbidly obese along with known history of multivessel coronary artery disease and the patient has declined coronary artery bypass surgery a few years back, in addition to moderate degree of aortic stenosis, chronic atrial fibrillation, diastolic heart failure/ hypertensive heart disease, diabetes mellitus in addition to hyperlipidemia and hypertension and chronic renal failure which progressed over the past several months and the patient got started on dialysis through a permacath in her right IJ inserted approximately 3 months ago and the patient is undergoing dialysis 3 times a week Tuesdays and Saturdays and she has a pending left arm AV fistula later stage. The patient underwent her last dialysis yesterday. Over the past 24-48 hours the patient started having flulike symptoms with sore throat nasal congestion and postnasal drainage. She was seen by her primary care physician and she was given antibiotics and steroids. The patient was not getting any better and the patient came into the hospital because of worsening shortness of breath. Initial chest x-ray showed increased pulmonary vascular marking early pulmonary edema. No consolidation. No airspace disease or no pneumonias. Lactic acid level was more than 4 in the patient's white cell count was 34. The patient was started on empiric antibiotic coverage and currently is on a combination of Zosyn and Levaquin. Blood cultures still pending. BNP level is 9700. The patient was briefly placed on BiPAP and currently she is off BiPAP on 3 L of oxygen by nasal cannula. No previous history of DVT or pulmonary embolism. No previous history of obstructive sleep apnea. She is morbidly obese. No significant swelling in lower extremities at this point. On 05/06/2017 the patient is being seen in the follow-up. The patient is resting comfortably in bed. No fever or chills to she is undergoing dialysis and this is her routine dialysis day. Her white cell count is improving. She had leukocytosis at time of presentation which is improving. No fever. No chills. The dialysis catheter exit site is dry clean and intact. The blood culture has been negative thus far. The patient is covered empirically with a combination of Zosyn and Levaquin. No change in mental status. No chest pain. No other complaints otherwise. On 05/07/2017 the patient seems to be more lethargic. Her oxidation is also gotten worse. She is currently up to 10 L of oxygen by nasal cannula. She underwent hemodialysis yesterday. As such, a follow-up chest x-ray was obtained and it showed worsening right basilar airspace disease. Her white cell count is still in the low 20s. No fever or chills. She is very weak and lethargic. Antibiotics have been broadened and the patient is currently on a combination of Zosyn, Levaquin and vancomycin was also added to the regimen. The blood cultures consistent with bilateral is negative staph. No nausea. No vomiting. No altered mentation. Objective - Vital Signs Vital signs: Vital Signs Temp 98.5 F 05/07/17 08:00 Pulse 89 05/07/17 12:16 Resp 21 05/07/17 12:00 BP 109/55 05/07/17 12:00 Pulse Ox 90 L 05/07/17 12:00 Intake & Output 05/06/17 05/07/17 05/07/17 18:59 06:59 18:59 Intake Total 1456 70 0 Output Total 50 Balance 1456 70 -50 Weight 99.5 kg Intake: IV 240 0.9@40mls/hr 240 Intake, IV Titration 256 70 Amount Heparin Sod,Pork in 0.45% 206 NaCl 25,000 unit In 0.45 % NaCl 1 500ml.bag @ 10. 31 UNITS/KG/HR 20 mls/hr IV .Q24H JONEL Rx#: [id number] Piperacillin-Tazobactam 3 50 50 .375 gm In Dextrose/Water 1 50ml.bag @ 12.5 mls/hr IVPB Q12HR JONEL Rx#: [id number] Sodium Chloride 0.9% 1, 20 000 ml @ 20 mls/hr IV . Q24H JONEL Rx#:[id number] Oral 960 0 Output: Urine 50 Other: Voiding Method Incontinent # Voids 1 - Exam Morbidly obese, patient is in mild degree of respiratory distress and she is more lethargic compared to yesterday..Head exam was generally normal. There was no scleral icterus or corneal arcus. Mucous membranes were moist. Neck is short and supple and the patient has significant crowding of the posterior pharynx. The patient is a Mallampati class IV. Lung sounds are diminished bilaterally otherwise clear. Few bibasilar crackles. Heart sounds are irregular there is systolic ejection murmur grade 3/6 heard throughout the precordium.Abdominal exam revealed normal bowel sounds. The abdomen was soft, non-tender, and without masses, organomegaly, or appreciable enlargement of the abdominal aorta.Examination of the extremities revealed easily palpable radial, femoral and pedal pulses. There was no cyanosis, clubbing or edema.Examination of the skin revealed no evidence of significant rashes, suspicious appearing nevi or other concerning lesions. The exit site of the temporary dialysis catheter dry clean and intact. Neurologically the patient is awake and alert and there is no focal neurological deficit at this point.Examination of the skin revealed no evidence of significant rashes, suspicious appearing nevi or other concerning lesions. - Labs CBC & Chem 7: 05/07/17 06:56 05/07/17 06:56 Labs: Abnormal Lab Results - Last 24 Hours (Table) 05/05/17 05/06/17 05/06/17 Range/Units 23:20 06:11 16:27 WBC (3.8-10.6) k/uL RBC (3.80-5.40) m/uL Hgb (11.4-16.0) gm/dL Hct (34.0-46.0) % MCHC (31.0-37.0) g/dL Neutrophils # (1.3-7.7) k/uL BUN (7-17) mg/dL Creatinine (0.52-1.04) mg/dL Glucose (74-99) mg/dL POC Glucose (mg/dL) 134 H (75-99) mg/dL Hemoglobin A1c 8.2 H (4.0-6.0) % Ferritin 874.4 H (10.0-291.0) ng/mL Alkaline Phosphatase (38-126) U/L Albumin (3.5-5.0) g/dL Urine Appearance (Clear) Urine Protein (Negative) Urine Ketones (Negative) Ur Leukocyte Esterase (Negative) Ur Squamous Epith Cells (0-4) /hpf Amorphous Sediment (None) /hpf 05/06/17 05/07/17 05/07/17 Range/Units 21:26 06:18 06:56 WBC 21.3 H (3.8-10.6) k/uL RBC 3.19 L (3.80-5.40) m/uL Hgb 9.8 L (11.4-16.0) gm/dL Hct 31.9 L (34.0-46.0) % MCHC 30.6 L (31.0-37.0) g/dL Neutrophils # 18.2 H (1.3-7.7) k/uL BUN (7-17) mg/dL Creatinine (0.52-1.04) mg/dL Glucose (74-99) mg/dL POC Glucose (mg/dL) 101 H 138 H (75-99) mg/dL Hemoglobin A1c (4.0-6.0) % Ferritin (10.0-291.0) ng/mL Alkaline Phosphatase (38-126) U/L Albumin (3.5-5.0) g/dL Urine Appearance (Clear) Urine Protein (Negative) Urine Ketones (Negative) Ur Leukocyte Esterase (Negative) Ur Squamous Epith Cells (0-4) /hpf Amorphous Sediment (None) /hpf 05/07/17 05/07/17 05/07/17 Range/Units 06:56 11:35 11:35 WBC (3.8-10.6) k/uL RBC (3.80-5.40) m/uL Hgb (11.4-16.0) gm/dL Hct (34.0-46.0) % MCHC (31.0-37.0) g/dL Neutrophils # (1.3-7.7) k/uL BUN 39 H (7-17) mg/dL Creatinine 3.25 H (0.52-1.04) mg/dL Glucose 137 H (74-99) mg/dL POC Glucose (mg/dL) 122 H (75-99) mg/dL Hemoglobin A1c (4.0-6.0) % Ferritin (10.0-291.0) ng/mL Alkaline Phosphatase 183 H (38-126) U/L Albumin 3.2 L (3.5-5.0) g/dL Urine Appearance Turbid H (Clear) Urine Protein 1+ H (Negative) Urine Ketones Trace H (Negative) Ur Leukocyte Esterase Trace H (Negative) Ur Squamous Epith Cells 6 H (0-4) /hpf Amorphous Sediment Rare H (None) /hpf Microbiology - Last 24 Hours (Table) 05/07/17 07:24 Gram Stain - Preliminary Sputum 05/05/17 06:31 Blood Culture Gram Stain - Preliminary Blood Blood Culture - Preliminary Coagulase Negative Staph 05/05/17 06:31 Blood Culture - Final Blood Assessment and Plan Plan: Assessment 1 acute dyspnea along with a hypoxic respiratory failure. Chest x-rays consistent with increased vascular marking and fluid overload. Underlying CHF cannot be completely excluded. Contributing factors could be renal failure and the patient is known to have hypertensive heart disease and moderate degree of aortic stenosis on her echocardiogram. Superimposed pneumonia is felt to be less likely On 05/06/2017, the patient is feeling, comfortable. No respiratory distress. No cough or sputum production. She is on broad-spectrum antibiotics. She is undergoing dialysis. No obvious source of septicemia. White cell count is improving. On 05/07/2017 the patient seems to be doing worse. She is more lethargic and septic looking. The follow-up chest x-ray shows worsening of the right lower lobe pulmonary infiltration/airspace disease. The patient has been brought in in terms of antibiotic coverage and currently she is on a combination of Zosyn, Levaquin and vancomycin. She has developed also an acute hypoxic respiratory failure and currently she is on 10 L of oxygen by nasal cannula. 2 acute leukocytosis, rule out underlying infectious source/sepsis. Patient is improving and the white cell count is down and the cultures of been negative thus far and the patient is on a combination of Zosyn and Levaquin. Vancomycin was also added to the regimen. 3 coronary artery disease and the patient has multivessel coronary artery disease and she has declined bypass surgery in the past, troponin leak, rule out acute non-ST segment elevation myocardial infarction , under investigation with cardiology 4 chronic paroxysmal atrial fibrillation 5 hypertensive heart disease/diastolic dysfunction 6 diabetes mellitus 7 End stage renal disease currently on hemodialysis. The patient has history of diabetic nephropathy. The patient underwent hemodialysis yesterday. 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 Repeat chest x-ray in the morning. Titrate FiO2 to maintain a saturation above 90%. May need a high flow oxygen. May need a BiPAP overnight knowing that the patient has obvious features of sleep breathing disorder. The patient will be having a BiPAP at the bedside at pressure of 10/5 cm of water where the FiO2 will be titrated to maintain a saturation above 90%. Dialysis per nephrology. Repeat blood cultures. We'll continue to follow. Condition is somewhat critical at this point and the patient will need very close attention to make sure there is no further decompensation or worsening the respirator status. We'll continue to follow. Case was discussed with the daughter the bedside.
--- NOTE | 2017-05-07 15:43 | P.PN ---
Subjective Progress Note Date: 05/07/17 Patient continued to be hemodynamically stable seems to be responding after switching to BiPAP by pulmonary. Patient is not responding at this point to Lasix as she is not having any improvement in her urine output and nursing staff asked if that's can be switched to different medication. Patient is denying chest pain nausea vomiting dizziness lightheadedness or blurry vision seems to be oriented and following commands. Patient's baseline that she is bedbound at home and stated that she is extremely weak at this point Objective - Vital Signs Vital signs: Vital Signs Temp 98.5 F 05/07/17 08:00 Pulse 89 05/07/17 12:16 Resp 21 05/07/17 12:00 BP 109/55 05/07/17 12:00 Pulse Ox 90 L 05/07/17 12:00 Intake & Output 05/06/17 05/07/17 05/07/17 18:59 06:59 18:59 Intake Total 1456 70 240 Output Total 50 Balance 1456 70 190 Weight 99.5 kg Intake: IV 240 0.9@40mls/hr 240 Intake, IV Titration 256 70 Amount Heparin Sod,Pork in 0.45% 206 NaCl 25,000 unit In 0.45 % NaCl 1 500ml.bag @ 10. 31 UNITS/KG/HR 20 mls/hr IV .Q24H JONEL Rx#: [id number] Piperacillin-Tazobactam 3 50 50 .375 gm In Dextrose/Water 1 50ml.bag @ 12.5 mls/hr IVPB Q12HR JONEL Rx#: [id number] Sodium Chloride 0.9% 1, 20 000 ml @ 20 mls/hr IV . Q24H JONEL Rx#:[id number] Oral 960 240 Output: Urine 50 Other: Voiding Method Incontinent # Voids 1 - Exam lungs diminished bilaterally Heart normal S1-S2 Lower extremity positive for edema bilaterally Psych as above Skin no new rash - Labs CBC & Chem 7: 05/07/17 06:56 05/07/17 06:56 Labs: Abnormal Lab Results - Last 24 Hours (Table) 05/05/17 05/06/17 05/06/17 Range/Units 23:20 06:11 16:27 WBC (3.8-10.6) k/uL RBC (3.80-5.40) m/uL Hgb (11.4-16.0) gm/dL Hct (34.0-46.0) % MCHC (31.0-37.0) g/dL Neutrophils # (1.3-7.7) k/uL BUN (7-17) mg/dL Creatinine (0.52-1.04) mg/dL Glucose (74-99) mg/dL POC Glucose (mg/dL) 134 H (75-99) mg/dL Hemoglobin A1c 8.2 H (4.0-6.0) % Ferritin 874.4 H (10.0-291.0) ng/mL Alkaline Phosphatase (38-126) U/L Albumin (3.5-5.0) g/dL Urine Appearance (Clear) Urine Protein (Negative) Urine Ketones (Negative) Ur Leukocyte Esterase (Negative) Ur Squamous Epith Cells (0-4) /hpf Amorphous Sediment (None) /hpf 05/06/17 05/07/17 05/07/17 Range/Units 21:26 06:18 06:56 WBC 21.3 H (3.8-10.6) k/uL RBC 3.19 L (3.80-5.40) m/uL Hgb 9.8 L (11.4-16.0) gm/dL Hct 31.9 L (34.0-46.0) % MCHC 30.6 L (31.0-37.0) g/dL Neutrophils # 18.2 H (1.3-7.7) k/uL BUN (7-17) mg/dL Creatinine (0.52-1.04) mg/dL Glucose (74-99) mg/dL POC Glucose (mg/dL) 101 H 138 H (75-99) mg/dL Hemoglobin A1c (4.0-6.0) % Ferritin (10.0-291.0) ng/mL Alkaline Phosphatase (38-126) U/L Albumin (3.5-5.0) g/dL Urine Appearance (Clear) Urine Protein (Negative) Urine Ketones (Negative) Ur Leukocyte Esterase (Negative) Ur Squamous Epith Cells (0-4) /hpf Amorphous Sediment (None) /hpf 05/07/17 05/07/17 05/07/17 Range/Units 06:56 11:35 11:35 WBC (3.8-10.6) k/uL RBC (3.80-5.40) m/uL Hgb (11.4-16.0) gm/dL Hct (34.0-46.0) % MCHC (31.0-37.0) g/dL Neutrophils # (1.3-7.7) k/uL BUN 39 H (7-17) mg/dL Creatinine 3.25 H (0.52-1.04) mg/dL Glucose 137 H (74-99) mg/dL POC Glucose (mg/dL) 122 H (75-99) mg/dL Hemoglobin A1c (4.0-6.0) % Ferritin (10.0-291.0) ng/mL Alkaline Phosphatase 183 H (38-126) U/L Albumin 3.2 L (3.5-5.0) g/dL Urine Appearance Turbid H (Clear) Urine Protein 1+ H (Negative) Urine Ketones Trace H (Negative) Ur Leukocyte Esterase Trace H (Negative) Ur Squamous Epith Cells 6 H (0-4) /hpf Amorphous Sediment Rare H (None) /hpf Microbiology - Last 24 Hours (Table) 05/07/17 07:24 Gram Stain - Preliminary Sputum 05/05/17 06:31 Blood Culture Gram Stain - Preliminary Blood Blood Culture - Preliminary Coagulase Negative Staph 05/05/17 06:31 Blood Culture - Final Blood Assessment and Plan Assessment: 1. Leukocytosislikely secondary to pneumonia. We will continue current antibiotics and follow up on white blood count closely. 2. Acute respiratory failure with hypoxia. Multifactorial. Continue optimizing her medical management. Patient is responding to BiPAP and I would like to continue stretching been between BiPAP and nasal cannula. Plan discussed with the nursing staff and I would like to switch patient from Lasix to Bumex 1 mg IV push every 8 hours and follow-up on vital signs closely and urine output repeat her blood work in the morning plan discussed with the patient and the nursing staff 3.paroxysmal fibrillation. Continue current medication. 4. End-stage renal disease with continue dialysis 3 times weekly. 5. Congestive heart failure with exacerbation. We'll continue diuretics, dialysis and follow-up with cardiology recommendations. 6. Severe debility and deconditioning. PT OT to evaluate the patient 7. Prognosis remained guarded
[2017-05-07] MEDS: BUMETANIDE 0.25 MG/ML 4 ML VIAL IVP SCH ×2 (15:50→21:37)
--- NOTE | 2017-05-07 16:00 | PN ---
PROGRESS NOTE Mrs. Corrigan is a 71-year-old female with a history of end-stage renal disease, on hemodialysis, history of coronary disease, aortic stenosis, and atrial arrhythmia. She is feeling better at this time. Her breathing has been stable. She had an echocardiogram revealed an ejection fraction 50-55%. She has no dizziness palpitation. She is off the heparin. She is scheduled to undergo dialysis on Monday. She continues to be on amiodarone 100 mg daily, aspirin, Bumex 1 mg IV 3 times a day, diltiazem 30 mg 3 times a day, Zetia 10 mg daily, insulin, isosorbide mononitrate 30 mg daily, metoprolol succinate 100 mg daily. PHYSICAL EXAMINATION: Blood pressure 109/50 with a heart in 90s. LUNGS: Clear anteriorly. HEART: S1, S2. No S3 with systolic murmur. ABDOMEN: Soft, obese, nontender. EXTREMITIES: Mild edema. LAB DATA: Revealed hemoglobin of 9.8, white blood cells 21.3, BUN and creatinine 39 and 3.25. IMPRESSION: 1. Symptoms of progressive dyspnea with possible pneumonia. The patient has been seen by Dr. Hanson and adjustment of her medical antibiotics have been done. 2. History of coronary artery disease with multivessel coronary artery disease. 3. History of atrial fibrillation. 4. Hypertension. 5. Diabetes. 6. End-stage renal disease, on hemodialysis. RECOMMENDATION: From the cardiac standpoint, we will continue current medical therapy. Continue to follow her blood pressure and depending on that, further adjustment of her medical regimen will be made. MMODL / IJN: [id number] /
[2017-05-07 16:40] LABS: Glucose,Whole Blood 176 mg/dL (75-99)
[2017-05-07] MEDS: ACETAMINOPHEN TAB 325 MG TAB PO PRN (18:14)
[2017-05-07 20:56] LABS: Glucose,Whole Blood 193 mg/dL (75-99)
[2017-05-08 06:11] LABS: Glucose,Whole Blood 151 mg/dL (75-99)
[2017-05-08] MEDS: SODIUM CHLORIDE 0.9% 1,000 ML IV SCH (06:16)
[2017-05-08] MEDS: INSULIN ASPART 100 UNIT/ML 1 ML 10 ML VIAL SQ SCH ×7 (06:16→21:45)
[2017-05-08] MEDS: PANTOPRAZOLE 40 MG TABLET PO SCH (06:17)
[2017-05-08] MEDS: SEVELAMER 800 MG TAB PO SCH ×3 (06:17→18:12)
[2017-05-08 06:33] LABS: Basophils # (A) 0.1 k/uL (0-0.2); Basophils % (A) 0 %; Eosinophils # (A) 0.1 k/uL (0-0.7); Eosinophils % (A) 1 %; HCT 29.4 % (34.0-46.0); HGB 8.8 gm/dL (11.4-16.0); Hypochromasia Moderate; Lymphocytes # (A) 1.5 k/uL (1.0-4.8); Lymphocytes % (A) 10 %; MCH 29.2 pg (25.0-35.0); MCHC 29.9 g/dL (31.0-37.0); MCV 97.7 fL (80.0-100.0); Mean Platelet Volume 8.5; Monocytes # (A) 0.6 k/uL (0-1.0); Monocytes % (A) 4 %; Neutrophils # (A) 13.1 k/uL (1.3-7.7); Neutrophils % (A) 84 %; Platelet Count 291 k/uL (150-450); RBC 3.01 m/uL (3.80-5.40); RDW 15.6 % (11.5-15.5); WBC 15.6 k/uL (3.8-10.6)
[2017-05-08 07:13] LABS: Calcium 9.2 mg/dL (8.4-10.2); Potassium 4.8 mmol/L (3.5-5.1); Total Bilirubin 0.7 mg/dL (0.2-1.3); Total Protein 6.3 g/dL (6.3-8.2)
[2017-05-08] MEDS: IPRATROPIUM-ALBUTEROL 3 ML NEB INHALATION SCH ×4 (07:21→19:35)
--- NOTE | 2017-05-08 08:31 | XR ---
EXAMINATION TYPE: XR chest 1V DATE OF EXAM: 05/08/2017 COMPARISON: Prior chest x-ray 05/07/2017 HISTORY: Right lower lobe pneumonia TECHNIQUE: Single frontal view of the chest is obtained. FINDINGS: Patient is rotated. Right jugular central venous catheter is stable and there are overlyin g cardiac leads. Postop change noted to the spine as on prior. Airspace disease shows a similar distr ibution the right upper, right lower and possibly left lower lobe. Metallic densities superimposed ov er the heart. Heart size is accentuated. No evident pneumothorax or sizable effusion. IMPRESSION: Findings could represent pulmonary edema, pneumonia, correlate.
[2017-05-08] MEDS: ASPIRIN 81 MG PO SCH (09:08)
[2017-05-08] MEDS: AMIODARONE 100 MG TAB PO SCH (09:08)
[2017-05-08] MEDS: BUMETANIDE 0.25 MG/ML 4 ML VIAL IVP SCH ×3 (09:09→21:45)
[2017-05-08] MEDS: DILTIAZEM ORAL 30 MG TAB PO SCH (09:09)
[2017-05-08] MEDS: DULoxetine HCL 60 MG CAPSULE.DR PO SCH (09:09)
[2017-05-08] MEDS: DOCUSATE 100 MG CAP PO SCH ×2 (09:09→21:43)
[2017-05-08] MEDS: MAGNESIUM OXIDE 400 MG TAB PO SCH (09:10)
[2017-05-08] MEDS: FERROUS SULFATE 325 MG TAB PO SCH (09:10)
[2017-05-08] MEDS: METOPROLOL SUCCINATE (ER) 100 MG TAB.ER.24H PO SCH (09:10)
[2017-05-08] MEDS: EZETIMIBE 10 MG TAB PO SCH (09:10)
[2017-05-08] MEDS: GABAPENTIN 300 MG CAP PO SCH ×2 (09:10→21:43)
[2017-05-08] MEDS: ISOSORBIDE MONONITRATE ER 30 MG TAB.ER.24H PO SCH (09:11)
[2017-05-08] MEDS: PIPERACILLIN-TAZOBACTAM 3.375 GM in DEXTROSE/WATER 1 50ML.BAG IVPB SCH ×2 (09:17→21:45)
[2017-05-08] MEDS: INSULIN DETEMIR 100 UNIT/ML 10 ML VIAL SQ SCH ×2 (09:17→21:45)
--- NOTE | 2017-05-08 09:34 | CONS ---
CONSULTATION DATE OF SERVICE: 05/07/2017 REASON FOR CONSULTATION: 1. Bacteremia. 2. Pneumonia. HISTORY OF PRESENT ILLNESS: The patient is a 71-year-old female with the past medical history significant for coronary artery disease. The patient also have a history of renal failure, currently on hemodialysis Monday, , Monday through a right IJ PermCath that was inserted 2nd week of December 2016. Patient came into the ER at [facility] on the May 05, 2016 with the chief complaints of not feeling well. She did have some URI symptoms of sore throat., nasal congestion and postnasal drainage for the last few days. Patient apparently has been seen for the same some in outpatient setting by her PCP and has been treated with steroids and some antibiotic. However, the patient did not have any improvement with worsening symptom of cough with a moderate intensity for the last week or so is mostly dry with associated shortness of breath. She presented to the ER. On arrival to the ER, patient was afebrile. However, the patient did have elevated white count of 34.2. The patient's chest x-ray on admission did show cardiomegaly with persistent new mild central venous congestion and new small- moderate right-sided pleural effusion. She has been treated for possible fluid overload in addition to the pneumonia and has been treated with Zosyn and Levaquin. Subsequently, patient did have blood culture obtained which is currently positive with gram- positive cocci. Blood culture was repeated. Vancomycin was added now and I was asked to see the patient for further recommendation regarding antibiotic therapy. Patient's main symptom remained to be shortness of breath. She currently requiring BiPAP. She could have a cough but not bringing up any significant sputum, though. No chest pain. No nausea, no vomiting and no diarrhea. An x-ray done this morning showing worsening right basilar airspace disease and the patient is currently on a combination of the vancomycin, Levofloxacin and Zosyn REVIEW OF SYSTEMS: CONSTITUTIONAL: Positive for weakness. EYES: No complaint. ENT: As per HPI. RESPIRATORY: As per HPI. CARDIOVASCULAR: No complaint. GENITOURINARY: No complaint. GASTROINTESTINAL: No complaint. MUSCULOSKELETAL: No complaint. INTEGUMENTARY: No complaint. PSYCHOLOGICAL: No complaint. ENDOCRINE: No complaint. NEUROLOGICAL: No complaint. PAST MEDICAL HISTORY: Significant for atrial fibrillation, coronary artery disease, heart failure, COPD, diabetes mellitus, hypertension, hyperlipidemia, NM, pneumonia, end-stage renal disease, and history of MRSA infection. PAST SURGICAL HISTORY: Back surgery, cholecystectomy, heart catheterization, hysterectomy and orthopedic surgery including lumbar decompression and fusion with revision surgery, T8 and T9. SOCIAL HISTORY: No history of smoking, drinking, or drug use. FAMILY HISTORY: Father history of brain aneurysm, at age of 72 due to the history of hypertension, atrial wall disease. Mother history of A. fib, and CVA, TIA. ALLERGIES: Include [employer]. MEDICATIONS: Include the patient is currently on: Piperacillin Tazobactam, Protonix, Toprol, Mag oxide, levofloxacin, Imdur, Levemir, NovoLog, Neurontin, Zetia, Colace, Aranesp, aspirin, amiodarone, Tylenol. PHYSICAL EXAMINATION: Her blood pressure is 109/55 with a pulse of 95, temperature of 98.5, she is 90 % on 6 L nasal cannula. General description is an elderly female lying in bed, in no distress. No tachypnea or accessory muscle of respiration use. HEENT: Shows pallor, no scleral icterus. Oral mucosa is dry. No thrush NECK: Trachea is central, no thyromegaly. LUNGS: Unlabored breathing with decreased breath sounds in the bases. No wheezing. HEART: S1, S2. Regular rate and rhythm, no murmur ABDOMEN : soft, no tenderness, no guarding, no rigidity, no organomegaly EXTREMITIES: Some trace edema of the feet. SKIN EXAMINATION: No rash or mass palpable. NEUROLOGICAL: Patient is awake, alert, oriented x3. Mood and affect normal. LABS: Hemoglobin is 9.8, white count 21.3, BUN of 39, creatinine 3.25. Urine was negative. Influenza A and B have been negative. Blood cultures with a coagulase-negative staph. Sputum obtained currently pending. DIAGNOSTIC IMPRESSION AND PLAN: Patient hospitalized predominantly with upper and lower respiratory tract symptoms. Patient who did have a cough, bringing up some sputum started with a upper respiratory tract infection, acute influenza, testing has been negative. The patient currently on Zosyn. Still having worsening of the right lower lobe pneumonia with a question of possible recent gram-negative or gram-positive pathogen. As per the positive blood culture with coagulase negative Staph, the patient does have a Permacatheter, hence these positive structure cannot be disregarded as staph epi has been responsible for permacath infection recommended treatment while waiting for the repeat blood cultures to be finalized. PLAN: 1. Recommend obtaining blood cultures from the permacatheter during dialysis. To make sure no evidence of persistent bacteremia 2. patient will be treated with a vancomycin pharmacy to dose target trough of 15 and Zosyn 3.375 g every 12 dose adjusted to her kidney function at this point while waiting for the repeat cultures to finalize. 3. Depending on the clinic response of the culture, will adjust the medication further if needed. Thank you for this consultation. Will follow this patient along with you. MMODL / IJN: [id number] / VEGA
[2017-05-08 11:36] LABS: Glucose,Whole Blood 208 mg/dL (75-99)
[2017-05-08] MEDS ORDERED: VANCOMYCIN IV PER PHARMACY 1 EACH MISC MISCELLANE PRN (12:50)
--- NOTE | 2017-05-08 12:52 | P.PN ---
Subjective Progress Note Date: 05/08/17 Principal diagnosis: acute hypoxic respiratory failure secondary to pulmonary edema with renal failure, hypertensive heart disease, and aortic stenosis. This is a 71-year-old female patient, morbidly obese along with known history of multivessel coronary artery disease and the patient has declined coronary artery bypass surgery a few years back, in addition to moderate degree of aortic stenosis, chronic atrial fibrillation, diastolic heart failure/ hypertensive heart disease, diabetes mellitus in addition to hyperlipidemia and hypertension and chronic renal failure which progressed over the past several months and the patient got started on dialysis through a permacath in her right IJ inserted approximately 3 months ago and the patient is undergoing dialysis 3 times a week Tuesdays and Saturdays and she has a pending left arm AV fistula later stage. The patient underwent her last dialysis yesterday. Over the past 24-48 hours the patient started having flulike symptoms with sore throat nasal congestion and postnasal drainage. She was seen by her primary care physician and she was given antibiotics and steroids. The patient was not getting any better and the patient came into the hospital because of worsening shortness of breath. Initial chest x-ray showed increased pulmonary vascular marking early pulmonary edema. No consolidation. No airspace disease or no pneumonias. Lactic acid level was more than 4 in the patient's white cell count was 34. The patient was started on empiric antibiotic coverage and currently is on a combination of Zosyn and Levaquin. Blood cultures still pending. BNP level is 9700. The patient was briefly placed on BiPAP and currently she is off BiPAP on 3 L of oxygen by nasal cannula. No previous history of DVT or pulmonary embolism. No previous history of obstructive sleep apnea. She is morbidly obese. No significant swelling in lower extremities at this point. On 05/06/2017 the patient is being seen in the follow-up. The patient is resting comfortably in bed. No fever or chills to she is undergoing dialysis and this is her routine dialysis day. Her white cell count is improving. She had leukocytosis at time of presentation which is improving. No fever. No chills. The dialysis catheter exit site is dry clean and intact. The blood culture has been negative thus far. The patient is covered empirically with a combination of Zosyn and Levaquin. No change in mental status. No chest pain. No other complaints otherwise. On 05/07/2017 the patient seems to be more lethargic. Her oxidation is also gotten worse. She is currently up to 10 L of oxygen by nasal cannula. She underwent hemodialysis yesterday. As such, a follow-up chest x-ray was obtained and it showed worsening right basilar airspace disease. Her white cell count is still in the low 20s. No fever or chills. She is very weak and lethargic. Antibiotics have been broadened and the patient is currently on a combination of Zosyn, Levaquin and vancomycin was also added to the regimen. The blood cultures consistent with bilateral is negative staph. No nausea. No vomiting. No altered mentation. Reevaluated today on 05/08/2016, patient remains on BiPAP, presently on 02/02 and FiO2 of 45%. Feels comfortable, patient is to receive dialysis today.feeling better breathing easier compared to how she felt on admission. Labs were reviewed hemoglobin is 8.8 WBC count is 15.6 BUN is 57 creatinine 4.09. Chest x -ray continues to show evidence of pulmonary edema and fluid overload. Objective - Vital Signs Vital signs: Vital Signs Temp 98 F 05/08/17 04:00 Pulse 92 05/08/17 12:15 Resp 20 05/08/17 04:00 BP 161/72 05/08/17 04:00 Pulse Ox 89 L 05/07/17 16:00 Intake & Output 05/07/17 05/08/17 05/08/17 18:59 06:59 18:59 Intake Total 770 40 120 Output Total 50 Balance 720 40 120 Weight 97.5 kg Intake: IV 140 40 0.9 ns @ 20 140 40 Intake, IV Titration 150 Amount Levofloxacin 500Mg-D5w 100 Pmx 500 mg In Dextrose/ Water 1 100ml.bag @ 100 mls/hr IVPB Q48H JONEL Rx#: [id number] Piperacillin-Tazobactam 3 50 .375 gm In Dextrose/Water 1 50ml.bag @ 12.5 mls/hr IVPB Q12HR JONEL Rx#: [id number] Oral 480 120 Output: Urine 50 Other: Voiding Method Incontinent # Voids 1 - Exam Physical Exam: Revealed a 71-year-old female obese, on BiPAP, in no distress while on BiPAP. HEENT:[Neck is supple.] [No neck masses.] [No thyromegaly.] [No JVD.]PERRLA, EOMI.significant crowding of the oropharynx was noted. Mallampati class IV. Chest: [Ccrackles and rhonchi were noted at the bases bilaterally. Cardiac Exam: [Normal S1 and S2, no S3 gallop, 3/6 systolic murmur thought the precordium. Abdomen: [Soft, nontender, no megaly, no rebound, no guarding, normal bowel sounds.] Extremities: [No clubbing, 1+ bipedaledema, no cyanosis.] Neurological Exam: [No focal neurologic deficit. lymphatics:No evidence ofLymphadenopathy. psychiatric: Normal mood affect and mental status examination. ] - Labs CBC & Chem 7: 05/08/17 06:13 05/08/17 06:13 Labs: Abnormal Lab Results - Last 24 Hours (Table) 05/07/17 05/07/17 05/08/17 Range/Units 16:29 20:54 06:10 WBC (3.8-10.6) k/uL RBC (3.80-5.40) m/uL Hgb (11.4-16.0) gm/dL Hct (34.0-46.0) % MCHC (31.0-37.0) g/dL RDW (11.5-15.5) % Neutrophils # (1.3-7.7) k/uL BUN (7-17) mg/dL Creatinine (0.52-1.04) mg/dL Glucose (74-99) mg/dL POC Glucose (mg/dL) 176 H 193 H 151 H (75-99) mg/dL Alkaline Phosphatase (38-126) U/L Albumin (3.5-5.0) g/dL 05/08/17 05/08/17 05/08/17 Range/Units 06:13 06:13 11:24 WBC 15.6 H (3.8-10.6) k/uL RBC 3.01 L (3.80-5.40) m/uL Hgb 8.8 L (11.4-16.0) gm/dL Hct 29.4 L (34.0-46.0) % MCHC 29.9 L (31.0-37.0) g/dL RDW 15.6 H (11.5-15.5) % Neutrophils # 13.1 H (1.3-7.7) k/uL BUN 57 H (7-17) mg/dL Creatinine 4.09 H (0.52-1.04) mg/dL Glucose 147 H (74-99) mg/dL POC Glucose (mg/dL) 208 H (75-99) mg/dL Alkaline Phosphatase 154 H (38-126) U/L Albumin 3.0 L (3.5-5.0) g/dL Microbiology - Last 24 Hours (Table) 05/07/17 07:24 Gram Stain - Preliminary Sputum Sputum Culture - Preliminary Presumptive Staph aureus 05/07/17 11:35 Urine Culture - Final Urine,Catheterized 05/05/17 06:31 Blood Culture Gram Stain - Final Blood Blood Culture - Final Coagulase Negative Staph 05/06/17 15:38 Blood Culture - Preliminary Blood No Growth after 24 hours 05/06/17 15:16 Blood Culture - Preliminary Blood No Growth after 24 hours Assessment and Plan Assessment: 1 acute dyspnea along with a hypoxic respiratory failure. Chest x-rays consistent with increased vascular marking and fluid overload. Underlying CHF cannot be completely excluded. Contributing factors could be renal failure and the patient is known to have hypertensive heart disease and moderate degree of aortic stenosis on her echocardiogram. Superimposed pneumonia is felt to be less likely On 05/06/2017, the patient is feeling, comfortable. No respiratory distress. No cough or sputum production. She is on broad-spectrum antibiotics. She is undergoing dialysis. No obvious source of septicemia. White cell count is improving. On 05/07/2017 the patient seems to be doing worse. She is more lethargic and septic looking. The follow-up chest x-ray shows worsening of the right lower lobe pulmonary infiltration/airspace disease. The patient has been brought in in terms of antibiotic coverage and currently she is on a combination of Zosyn, Levaquin and vancomycin. She has developed also an acute hypoxic respiratory failure and currently she is on 10 L of oxygen by nasal cannula. On 05/08/2017, slightly better compared to how she felt yesterday, remains on BiPAP with IPAP of 10 and EPAP of 5. FiO2 is 45%.chest x-ray continues to show pulmonary edema, but clinically patient feels better. 2 acute leukocytosis, rule out underlying infectious source/sepsis. Patient is improving and the white cell count is down and the cultures of been negative thus far and the patient is on a combination of Zosyn and Levaquin. Vancomycin was also added to the regimen. 3 coronary artery disease and the patient has multivessel coronary artery disease and she has declined bypass surgery in the past, troponin leak, rule out acute non-ST segment elevation myocardial infarction , under investigation with cardiology 4 chronic paroxysmal atrial fibrillation 5 hypertensive heart disease/diastolic dysfunction 6 diabetes mellitus 7 End stage renal disease currently on hemodialysis. The patient has history of diabetic nephropathy. The patient underwent hemodialysis yesterday. 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 Prognosis remains guarded. Time with Patient: Less than 30
[2017-05-08] MEDS ORDERED: VANCOMYCIN 1,500 MG in SODIUM CHLORIDE 0.9% 250 ML IVPB ONE (14:00)
--- NOTE | 2017-05-08 14:13 | P.PN ---
Subjective Progress Note Date: 05/08/17 Principal diagnosis: CHF This is a pleasant 71-year-old female patient who follows was Dr. Combs in the office as an outpatient with a past medical history significant for coronary artery disease, heart failure with preserved LV function, hypertensive heart disease, moderate aortic stenosis, and paroxysmal atrial fibrillation presented to the hospital complaining of shortness of breath. The patient stated that she was in her usual state of health until the last 3 days when she started experiencing dyspnea. She did not have any bilateral lower extremities edema but she noticed an abdominal distention. No weight change. She did have some fever at home without chills, and also she has been experiencing cough productive of sputum. The patient was prescribed outpatient treatment with antibiotic but she did not respond well to the treatment. She is also known to have end-stage renal disease on hemodialysis and she stated that she did not miss any of her dialysis and beside that she stated that she was compliant with her medications and her diet as well as. Before she presented to the hospital she had some upper respiratory symptoms.The EKG showed sinus tachycardia. She does have also a right bundle branch block and left anterior fascicular block. The BNP came in to be around 9000. The chest x-ray showed pulmonary vascular congestions and bilateral pleural effusion worse on the right side. The cardiac enzymes were checked and came in to be slightly abnormal was mildly abnormal CK-MB and mildly abnormal troponin. This could reflect acute coronary syndrome and also the possibility of abnormal cardiac enzymes related to chronic kidney disease, be totally excluded. Please note that the patient did not have any symptoms of chest pain or chest discomfort.The last echocardiogram is from November 2016 and that revealed normal LV function, hypertensive heart disease, moderate aortic stenosis as well. 05/08/2017 Patient seen and examined this morning, breathing is stable. Blood pressure 160/ 70, heart rate in the 80s, 95% on BiPAP. White blood cell count 15.6, hemoglobin 8.8, potassium 4.8, BUN 57, creatinine 4.0. Repeat chest x-ray today revealed pulmonary edema and possible pneumonia. Objective - Vital Signs Vital signs: Vital Signs Temp 98 F 05/08/17 04:00 Pulse 92 05/08/17 12:15 Resp 20 05/08/17 04:00 BP 161/72 05/08/17 04:00 Pulse Ox 89 L 05/07/17 16:00 Intake & Output 05/07/17 05/08/17 05/08/17 18:59 06:59 18:59 Intake Total 770 40 180 Output Total 50 Balance 720 40 180 Weight 97.5 kg Intake: IV 140 40 0.9 ns @ 20 140 40 Intake, IV Titration 150 Amount Levofloxacin 500Mg-D5w 100 Pmx 500 mg In Dextrose/ Water 1 100ml.bag @ 100 mls/hr IVPB Q48H JONEL Rx#: [id number] Piperacillin-Tazobactam 3 50 .375 gm In Dextrose/Water 1 50ml.bag @ 12.5 mls/hr IVPB Q12HR JONEL Rx#: [id number] Oral 480 180 Output: Urine 50 Other: Voiding Method Incontinent # Voids 1 - Exam PHYSICAL EXAMINATION: HEENT: Head is atraumatic, normocephalic. Pupils equal, round. Neck is supple. There is no elevated jugular venous pressure. HEART EXAMINATION: Heart S1 and S2 systolic murmur is heard. CHEST EXAMINATION: Lungs are clear anteriorly ABDOMEN: Soft, obese, nontender. Bowel sounds are heard. No organomegaly noted. EXTREMITIES: 1+ peripheral pulses with trace evidence of peripheral edema and no calf tenderness noted. NEUROLOGIC patient is awake, alert and oriented -3. . - Labs CBC & Chem 7: 05/08/17 06:13 05/08/17 06:13 Labs: Abnormal Lab Results - Last 24 Hours (Table) 05/07/17 05/07/17 05/08/17 Range/Units 16:29 20:54 06:10 WBC (3.8-10.6) k/uL RBC (3.80-5.40) m/uL Hgb (11.4-16.0) gm/dL Hct (34.0-46.0) % MCHC (31.0-37.0) g/dL RDW (11.5-15.5) % Neutrophils # (1.3-7.7) k/uL BUN (7-17) mg/dL Creatinine (0.52-1.04) mg/dL Glucose (74-99) mg/dL POC Glucose (mg/dL) 176 H 193 H 151 H (75-99) mg/dL Alkaline Phosphatase (38-126) U/L Albumin (3.5-5.0) g/dL 05/08/17 05/08/17 05/08/17 Range/Units 06:13 06:13 11:24 WBC 15.6 H (3.8-10.6) k/uL RBC 3.01 L (3.80-5.40) m/uL Hgb 8.8 L (11.4-16.0) gm/dL Hct 29.4 L (34.0-46.0) % MCHC 29.9 L (31.0-37.0) g/dL RDW 15.6 H (11.5-15.5) % Neutrophils # 13.1 H (1.3-7.7) k/uL BUN 57 H (7-17) mg/dL Creatinine 4.09 H (0.52-1.04) mg/dL Glucose 147 H (74-99) mg/dL POC Glucose (mg/dL) 208 H (75-99) mg/dL Alkaline Phosphatase 154 H (38-126) U/L Albumin 3.0 L (3.5-5.0) g/dL Microbiology - Last 24 Hours (Table) 05/07/17 07:24 Gram Stain - Preliminary Sputum Sputum Culture - Preliminary Presumptive Staph aureus 05/07/17 11:35 Urine Culture - Final Urine,Catheterized 05/05/17 06:31 Blood Culture Gram Stain - Final Blood Blood Culture - Final Coagulase Negative Staph 05/06/17 15:38 Blood Culture - Preliminary Blood No Growth after 24 hours 05/06/17 15:16 Blood Culture - Preliminary Blood No Growth after 24 hours Assessment and Plan Plan: Assessment and plan #1 symptoms of progressive dyspnea with possible pneumonia, currently on antibiotics #2 history of coronary artery disease with multivessel coronary artery disease #3 paroxysmal atrial fibrillation #4 hypertension # 5 diabetes #6 end-stage renal disease on hemodialysis #7 morbid obesity Plan Cardiology's perspective we will continue current dose of IV Bumex. Increase dose of Cardizem for more optimal heart rate and blood pressure control. Check a.m. labs. Patient scheduled for dialysis tomorrow. DNP note has been reviewed, I agree with a documented findings and plan of care. Patient was seen and examined.
--- NOTE | 2017-05-08 14:21 | P.PN ---
Subjective Progress Note Date: 05/08/17 This is a 71-year-old female patient of Dr. Garcia with past medical history of atrial fibrillation, coronary artery disease status post myocardial infarction, has history of triple-vessel disease but was considered high risk for bypass, on conservative treatment,chronic diastolic heart failure , diabetes mellitus type 2, hyperlipidemia, hypertension, end-stage renal disease on hemodialysis, peripheral neuropathy.patient was recently hospitalized at [facility] in with significant shortness of breath, she was suggestive of pulmonary edema with acute kidney injury on CK D4 in the December 2016 patient was initiated on hemodialysis. Patient is doing well until 6 days ago when she started having flulike symptoms associated with postnasal drip and cough. She did see Dr. Garcia 2 days ago and was prescribed antibiotics with steroids, patient was unable to get the prescription for albuterol and was using an prescription. With no improvement of symptoms. Since she was very short of breath yesterday along with palpitations she decided to come to the ER. She has been afebrile since admission, tachycardic from 100-102 blood pressure is stable in 136/65 retreat of 28 on admission patient was desaturating to the 78 on room air and was placed on BiPAP, chest x-ray suggestive of pulmonary edema. No consolidation or atelectasis present. Lactic acid was greater than 4 on admission and improved to 1.8 on repeat checking. No fluid boluses was given because patient is in end-stage renal disease. Labs including a CBC is 34.2, hemoglobin 11.4 MCV 101, INR 1.1, BNP suggestive of creatinine at 2.84. BUN of 24. Troponin elevated 0.47. ProBNP 9700. Patient was initiated on levofloxacin and Zosyn. Pulmonary, cardiology and nephrology consult placed for acute hypoxic respiratory failure, increase troponin anemia and CHF exacerbation and possible dialysis today for pulmonary edema. 05/06: patient continued to be lethargic no major events reported by nursing staff patient is alert and oriented following commands denying chest pain shortness breath nausea vomiting abdominal pain dizziness or lightheadedness 05/07:Patient continued to be hemodynamically stable seems to be responding after switching to BiPAP by pulmonary. Patient is not responding at this point to Lasix as she is not having any improvement in her urine output and nursing staff asked if that's can be switched to different medication. Patient is denying chest pain nausea vomiting dizziness lightheadedness or blurry vision seems to be oriented and following commands. Patient's baseline that she is bedbound at home and stated that she is extremely weak at this point 05/08: Repeat chest x-ray shows findings could represent pulmonary edema, pneumonia, correlate. Consult with Dr. Obrien has been added with recommendations for blood cultures from the port and continue vancomycin and Zosyn. Patient has been afebrile. Pulse ox is 95% on BiPAP. White count has dropped to 15.6. Hemoglobin today is 8.8. Initial blood culture is positive for coag-negative staph and repeats obtained on May 06 are showing no growth at 24 hours. Sputum culture is in progress and urine culture has been finalized with no growth at 18 hours. Daughter is at the bedside. Patient complains of weakness, less shortness of breath. No appetite. She only ate few bites of oatmeal this morning. She is wheelchair bound. Patient continues to have fluid retention. Objective - Vital Signs Vital signs: Vital Signs Temp 98 F 05/08/17 04:00 Pulse 92 05/08/17 07:43 Resp 20 05/08/17 04:00 BP 161/72 05/08/17 04:00 Pulse Ox 89 L 05/07/17 16:00 Intake & Output 05/07/17 05/08/17 05/08/17 18:59 06:59 18:59 Intake Total 770 40 Output Total 50 Balance 720 40 Weight 97.5 kg Intake: IV 140 40 0.9 ns @ 20 140 40 Intake, IV Titration 150 Amount Levofloxacin 500Mg-D5w 100 Pmx 500 mg In Dextrose/ Water 1 100ml.bag @ 100 mls/hr IVPB Q48H [facility] Rx#: [id number] Piperacillin-Tazobactam 3 50 .375 gm In Dextrose/Water 1 50ml.bag @ 12.5 mls/hr IVPB Q12HR [facility] Rx#: [id number] Oral 480 Output: Urine 50 Other: Voiding Method Incontinent # Voids 1 - Exam General appearance: cooperative moderate acute distress on BiPAP, obese - EENT Eyes: anicteric sclerae, PERRLA, normal appearance ENT: hearing grossly normal - Neck Neck: no lymphadenopathy, normal ROM, no other, no rigidity, no stridor, no thyromegaly - Respiratory Respiratory: bilateral: Diminished air entry bilaterally with crackles heard at the bases, and very decreased air movement in the left lower lobe - Cardiovascular Rhythm: The cardiac Heart sounds: normal: S1, S2 Abnormal Heart Sounds: no systolic murmur, no diastolic murmur, no rub and no lower extremity edema - Gastrointestinal General gastrointestinal: normal bowel sounds, soft - Integumentary Integumentary: no rash - Neurologic Neurologic: CNII-XII intact - Musculoskeletal Musculoskeletal: strength equal bilaterally - Psychiatric Psychiatric: A&O x's 3, appropriate affect - Labs CBC & Chem 7: 05/08/17 06:13 05/08/17 06:13 Labs: Abnormal Lab Results - Last 24 Hours (Table) 05/07/17 05/07/17 05/07/17 Range/Units 11:35 11:35 16:29 WBC (3.8-10.6) k/uL RBC (3.80-5.40) m/uL Hgb (11.4-16.0) gm/dL Hct (34.0-46.0) % MCHC (31.0-37.0) g/dL RDW (11.5-15.5) % Neutrophils # (1.3-7.7) k/uL BUN (7-17) mg/dL Creatinine (0.52-1.04) mg/dL Glucose (74-99) mg/dL POC Glucose (mg/dL) 122 H 176 H (75-99) mg/dL Alkaline Phosphatase (38-126) U/L Albumin (3.5-5.0) g/dL Urine Appearance Turbid H (Clear) Urine Protein 1+ H (Negative) Urine Ketones Trace H (Negative) Ur Leukocyte Esterase Trace H (Negative) Ur Squamous Epith Cells 6 H (0-4) /hpf Amorphous Sediment Rare H (None) /hpf 05/07/17 05/08/17 05/08/17 Range/Units 20:54 06:10 06:13 WBC 15.6 H (3.8-10.6) k/uL RBC 3.01 L (3.80-5.40) m/uL Hgb 8.8 L (11.4-16.0) gm/dL Hct 29.4 L (34.0-46.0) % MCHC 29.9 L (31.0-37.0) g/dL RDW 15.6 H (11.5-15.5) % Neutrophils # 13.1 H (1.3-7.7) k/uL BUN (7-17) mg/dL Creatinine (0.52-1.04) mg/dL Glucose (74-99) mg/dL POC Glucose (mg/dL) 193 H 151 H (75-99) mg/dL Alkaline Phosphatase (38-126) U/L Albumin (3.5-5.0) g/dL Urine Appearance (Clear) Urine Protein (Negative) Urine Ketones (Negative) Ur Leukocyte Esterase (Negative) Ur Squamous Epith Cells (0-4) /hpf Amorphous Sediment (None) /hpf 05/08/17 Range/Units 06:13 WBC (3.8-10.6) k/uL RBC (3.80-5.40) m/uL Hgb (11.4-16.0) gm/dL Hct (34.0-46.0) % MCHC (31.0-37.0) g/dL RDW (11.5-15.5) % Neutrophils # (1.3-7.7) k/uL BUN 57 H (7-17) mg/dL Creatinine 4.09 H (0.52-1.04) mg/dL Glucose 147 H (74-99) mg/dL POC Glucose (mg/dL) (75-99) mg/dL Alkaline Phosphatase 154 H (38-126) U/L Albumin 3.0 L (3.5-5.0) g/dL Urine Appearance (Clear) Urine Protein (Negative) Urine Ketones (Negative) Ur Leukocyte Esterase (Negative) Ur Squamous Epith Cells (0-4) /hpf Amorphous Sediment (None) /hpf Microbiology - Last 24 Hours (Table) 05/06/17 15:38 Blood Culture - Preliminary Blood No Growth after 24 hours 05/06/17 15:16 Blood Culture - Preliminary Blood No Growth after 24 hours 05/07/17 11:35 Urine Culture - Preliminary Urine,Catheterized 05/07/17 07:24 Gram Stain - Preliminary Sputum 05/05/17 06:31 Blood Culture Gram Stain - Preliminary Blood Blood Culture - Preliminary Coagulase Negative Staph Assessment and Plan Plan: 1. Acute hypoxic respiratory failure secondary to acute on chronic diastolic heart failure, COPD exacerbation, underlying community-acquired pneumonia, possible bacteremia. Moderate aortic stenosis. Continue on BiPAP continue patient on Imdur 30 mg orally once every day, Toprol-XLl 100 mg orally once every day. O once every day, continue hydralazine 25 mg orally twice every day , And output and daily weight, cardiology consultation. Continue Vanco and Zosyn, Solu-Medrol 60 every 6 hours. Pulmonary consult hold nifedipine and for acute CHF 2. Severe sepsis with possible source either urine or pneumonia, urinalysis suggestive of infection. Urine culture pending. 3. End-stage renal disease on hemodialysis with pulmonary edema seen on chest x -ray, possible another session of hemodialysis today 4. Hypertension. Continue metoprolol 100 mg orally once every day. 5. Paroxysmal atrial fibrillation. Continue amiodarone 100 mg orally once every day, Eliquis 2.5 mg orally on hold as patient is on heparin drip 6. Morbid obesity with BMI of 39. 7. Troponinemia -history of coronary artery disease. Trend troponin every 63 echo ordered, continue heparin drip until seen by cardiology 8. Diabetes mellitus type 2 . Continue Lantus 30 units in the morning and 50 units in the night along with 10 units of aspart 3 times a day along with a sliding scale insulin. 9. GERD. Continue omeprazole 20 mg orally once every day. 10. Hypertension, hypertensive cardiovascular disease. Toprol-XL 100 mg orally once every day, nifedipine and Imdur 11. History of myocardial infarction and coronary artery disease. Continue aspirin 81 mg once every day, Toprol-XL 100 mg orally once every day, Imdur 30 mg orally once every day, Zetia 10 mg orally once every day. 12. Hyperlipidemia. 13. Diabetic peripheral neuropathy and neuropathy secondary to chronic back pain. Continue gabapentin 300 mg orally twice every day. 14. Depression. Continue Cymbalta 60 mg orally once every day. 15. DVT prophylaxis. On heparin drip as well as bilateral knee-high TERRIE hose. 16. Prophylaxis. Continue patient on PPI. 17. Full code. Impression and plan of care have been directed as dictated by the signing physician. Jessenia Gonzalez nurse practitioner acting as scribe for signing physician.
[2017-05-08 16:47] LABS: Glucose,Whole Blood 103 mg/dL (75-99)
[2017-05-08] MEDS: DILTIAZEM ORAL 60 MG TAB PO SCH ×2 (18:09→21:43)
[2017-05-08 21:10] LABS: Glucose,Whole Blood 215 mg/dL (75-99)
--- NOTE | 2017-05-08 22:22 | PN ---
PROGRESS NOTE The patient is seen for followup for end-stage renal disease and she was admitted to the hospital with shortness of breath and fluid overload. The patient is currently on BiPAP. She is scheduled for hemodialysis in a.m. She is able to lay flat and does not appear to be significantly short of breath. EXAMINATION: Blood pressure is 150/63, heart rate 88 per minute patient is afebrile. Examination of the heart S1, S2. Examination lungs decreased breath sounds at bases. Abdomen is soft, nontender. Examination of lower extremities shows no significant edema. LAB: Show sodium 138, potassium 4.8, BUN 57, serum creatinine 4.09, hemoglobin 8.8 g/dL. ASSESSMENT: 1. End-stage renal disease, on hemodialysis on a Monday, , Monday schedule. We will arrange for hemodialysis in a.m. 2. Coagulase-negative Staph bacteremia, possibly contaminant. Repeat cultures are all negative. 3. Fluid overload. We will increase UF with hemodialysis tomorrow as chest x-ray continues to show pulmonary vascular congestion. 4. Possible pneumonia maintained on antibiotics. 5. Paroxysmal atrial fibrillation. PLAN: Continue with IV Bumex. We will dialyze in a.m. and increase UF as tolerated. Maintain the phosphate binders. MMODL / IJN: [id number] /
[2017-05-09 04:04] LABS: Glucose,Whole Blood 151 mg/dL (75-99)
--- NOTE | 2017-05-09 04:28 | PN ---
PROGRESS NOTE DATE OF SERVICE: 05/08/2017 REASON FOR FOLLOWUP: 1. Pneumonia. 2. Positive blood culture. INTERVAL HISTORY: The patient is afebrile. Still complaining of shortness of breath. She continued to have some cough, but not bringing up any sputum. Did require a BiPAP. No nausea, vomiting. No choking on the food. No abdominal pain. No diarrhea. PHYSICAL EXAMINATION: On examination, blood pressure 154/65 with a pulse of 89, temperature of 96.8. She is 92% on BiPAP. General description is an elderly female lying in bed in no distress. RESPIRATORY SYSTEM: Unlabored breathing, decreased intensity of breath sounds. No wheeze. HEART: S1, S2. Regular rate and rhythm. ABDOMEN: Soft, no tenderness. LABS: White count down to 15.6. BUN 57, creatinine 4.09. Blood culture repeat has been negative so far. Sputum showing presumptive Staph aureus. DIAGNOSTIC IMPRESSION AND PLAN: Patient with acute respiratory failure admitted to the hospital with difficulty in breathing with evidence of pneumonia. Sputum now showing a Staphylococcus aureus. The patient also had blood culture positive for Coagulase negative Staph. However, the patient did have a right IJ with the repeat blood culture negative. Currently on vancomycin and Zosyn. Will continue while waiting for the sputum culture to finalize. Continue with supportive care. MMODL / IJN: [id number] / VEGA
[2017-05-09 06:16] LABS: Glucose,Whole Blood 204 mg/dL (75-99)
[2017-05-09] MEDS: SODIUM CHLORIDE 0.9% 1,000 ML IV SCH (06:37)
[2017-05-09] MEDS: INSULIN ASPART 100 UNIT/ML 1 ML 10 ML VIAL SQ SCH ×5 (07:08→20:54)
[2017-05-09] MEDS: IPRATROPIUM-ALBUTEROL 3 ML NEB INHALATION SCH ×4 (07:18→19:30)
[2017-05-09] MEDS: BUMETANIDE 0.25 MG/ML 4 ML VIAL IVP SCH ×3 (07:43→20:43)
[2017-05-09] MEDS ORDERED: VANCOMYCIN 1,500 MG in SODIUM CHLORIDE 0.9% 250 ML IVPB ONE (09:00)
[2017-05-09] MEDS: INSULIN DETEMIR 100 UNIT/ML 10 ML VIAL SQ SCH ×2 (09:20→20:54)
[2017-05-09] MEDS: PIPERACILLIN-TAZOBACTAM 3.375 GM in DEXTROSE/WATER 1 50ML.BAG IVPB SCH ×2 (11:53→20:43)
[2017-05-09] MEDS: PANTOPRAZOLE 40 MG TABLET PO SCH (11:54)
[2017-05-09] MEDS: SEVELAMER 800 MG TAB PO SCH ×3 (11:54→16:22)
[2017-05-09] MEDS: DILTIAZEM ORAL 60 MG TAB PO SCH ×3 (11:55→20:45)
[2017-05-09 12:25] LABS: Glucose,Whole Blood 99 mg/dL (75-99)
[2017-05-09] MEDS: DULoxetine HCL 60 MG CAPSULE.DR PO SCH (12:29)
[2017-05-09] MEDS: DOCUSATE 100 MG CAP PO SCH ×2 (12:29→20:43)
[2017-05-09] MEDS: ISOSORBIDE MONONITRATE ER 30 MG TAB.ER.24H PO SCH (12:29)
[2017-05-09] MEDS: FERROUS SULFATE 325 MG TAB PO SCH (12:29)
[2017-05-09] MEDS: EZETIMIBE 10 MG TAB PO SCH (12:29)
[2017-05-09] MEDS: ASPIRIN 81 MG PO SCH (12:29)
[2017-05-09] MEDS: METOPROLOL SUCCINATE (ER) 100 MG TAB.ER.24H PO SCH (12:29)
[2017-05-09] MEDS: GABAPENTIN 300 MG CAP PO SCH ×2 (12:29→20:43)
[2017-05-09] MEDS: APIXABAN 2.5 MG TABLET PO SCH ×2 (12:29→20:43)
[2017-05-09] MEDS: MAGNESIUM OXIDE 400 MG TAB PO SCH (12:29)
--- NOTE | 2017-05-09 12:55 | P.PN ---
Subjective Progress Note Date: 05/09/17 Principal diagnosis: Acute hypoxic respiratory failure secondary to pulmonary edema with renal failure, hypertensive heart disease, aortic stenosis. This is a 71-year-old female patient, morbidly obese along with known history of multivessel coronary artery disease and the patient has declined coronary artery bypass surgery a few years back, in addition to moderate degree of aortic stenosis, chronic atrial fibrillation, diastolic heart failure/ hypertensive heart disease, diabetes mellitus in addition to hyperlipidemia and hypertension and chronic renal failure which progressed over the past several months and the patient got started on dialysis through a permacath in her right IJ inserted approximately 3 months ago and the patient is undergoing dialysis 3 times a week Tuesdays and Saturdays and she has a pending left arm AV fistula later stage. The patient underwent her last dialysis yesterday. Over the past 24-48 hours the patient started having flulike symptoms with sore throat nasal congestion and postnasal drainage. She was seen by her primary care physician and she was given antibiotics and steroids. The patient was not getting any better and the patient came into the hospital because of worsening shortness of breath. Initial chest x-ray showed increased pulmonary vascular marking early pulmonary edema. No consolidation. No airspace disease or no pneumonias. Lactic acid level was more than 4 in the patient's white cell count was 34. The patient was started on empiric antibiotic coverage and currently is on a combination of Zosyn and Levaquin. Blood cultures still pending. BNP level is 9700. The patient was briefly placed on BiPAP and currently she is off BiPAP on 3 L of oxygen by nasal cannula. No previous history of DVT or pulmonary embolism. No previous history of obstructive sleep apnea. She is morbidly obese. No significant swelling in lower extremities at this point. On 05/06/2017 the patient is being seen in the follow-up. The patient is resting comfortably in bed. No fever or chills to she is undergoing dialysis and this is her routine dialysis day. Her white cell count is improving. She had leukocytosis at time of presentation which is improving. No fever. No chills. The dialysis catheter exit site is dry clean and intact. The blood culture has been negative thus far. The patient is covered empirically with a combination of Zosyn and Levaquin. No change in mental status. No chest pain. No other complaints otherwise. On 05/07/2017 the patient seems to be more lethargic. Her oxidation is also gotten worse. She is currently up to 10 L of oxygen by nasal cannula. She underwent hemodialysis yesterday. As such, a follow-up chest x-ray was obtained and it showed worsening right basilar airspace disease. Her white cell count is still in the low 20s. No fever or chills. She is very weak and lethargic. Antibiotics have been broadened and the patient is currently on a combination of Zosyn, Levaquin and vancomycin was also added to the regimen. The blood cultures consistent with bilateral is negative staph. No nausea. No vomiting. No altered mentation. Reevaluated today on 05/08/2016, patient remains on BiPAP, presently on 10/5 and FiO2 of 45%. Feels comfortable, patient is to receive dialysis today.feeling better breathing easier compared to how she felt on admission. Labs were reviewed hemoglobin is 8.8 WBC count is 15.6 BUN is 57 creatinine 4.09. Chest x -ray continues to show evidence of pulmonary edema and fluid overload. Patient is seen again today 05/09/2017 in follow-up on the regular medical floor. She is currently resting comfortably in bed. She is receiving dialysis again today with a goal of 3.5 L. She is currently on the BiPAP at 10/5 and 45 % FiO2. Saturations in the low 90s. She is afebrile. Hemodynamically stable. Her sputum is positive for MRSA. She is on vancomycin and Zosyn. ID is on the case. Objective - Vital Signs Vital signs: Vital Signs Temp 98.3 F 05/09/17 08:00 Pulse 84 05/09/17 12:15 Resp 23 05/09/17 08:00 BP 185/79 05/09/17 08:00 Pulse Ox 90 L 05/09/17 08:00 Intake & Output 05/08/17 05/09/17 05/09/17 18:59 06:59 18:59 Intake Total 300 220 0 Balance 300 220 0 Weight 104 kg Intake: IV 220 0.9 ns @ 20 170 Piperacillin-Tazobactam 3 50 .375 gm In Dextrose/Water 1 50ml.bag @ 12.5 mls/hr IVPB Q12HR [facility] Rx#: [id number] Oral 300 0 Other: Voiding Method Incontinent Incontinent Incontinent # Voids 1 - Exam Physical Exam: Revealed a 71-year-old female obese, on BiPAP, in no distress while on BiPAP. HEENT:[Neck is supple.] [No neck masses.] [No thyromegaly.] [No JVD.]PERRLA, EOMI.significant crowding of the oropharynx was noted. Mallampati class IV. Chest: [Ccrackles and rhonchi were noted at the bases bilaterally. Cardiac Exam: [Normal S1 and S2, no S3 gallop, 3/6 systolic murmur thought the precordium. Abdomen: [Soft, nontender, no megaly, no rebound, no guarding, normal bowel sounds.] Extremities: [No clubbing, 1+ bipedaledema, no cyanosis.] Neurological Exam: [No focal neurologic deficit. lymphatics:No evidence ofLymphadenopathy. psychiatric: Normal mood affect and mental status examination. - Labs CBC & Chem 7: 05/08/17 06:13 05/08/17 06:13 Labs: Abnormal Lab Results - Last 24 Hours (Table) 05/08/17 05/08/17 05/09/17 Range/Units 16:45 21:08 03:52 POC Glucose (mg/dL) 103 H 215 H 151 H (75-99) mg/dL 05/09/17 Range/Units 06:08 POC Glucose (mg/dL) 204 H (75-99) mg/dL Microbiology - Last 24 Hours (Table) 05/07/17 07:24 Gram Stain - Final Sputum Sputum Culture - Final Methicillin resist S. aureus Rosario albicans 05/06/17 15:38 Blood Culture - Preliminary Blood No Growth after 48 hours 05/06/17 15:16 Blood Culture - Preliminary Blood No Growth after 48 hours 05/07/17 14:50 Blood Culture - Preliminary Blood No Growth after 24 hours 05/07/17 13:51 Blood Culture - Preliminary Blood No Growth after 24 hours 05/07/17 11:35 Urine Culture - Final Urine,Catheterized 05/05/17 06:31 Blood Culture Gram Stain - Final Blood Blood Culture - Final Coagulase Negative Staph Assessment and Plan Assessment: 1 acute dyspnea along with a hypoxic respiratory failure. Chest x-rays consistent with increased vascular marking and fluid overload. Underlying CHF cannot be completely excluded. Contributing factors could be renal failure and the patient is known to have hypertensive heart disease and moderate degree of aortic stenosis on her echocardiogram. Her sputum is positive for MRSA and Rosario. On 05/06/2017, the patient is feeling, comfortable. No respiratory distress. No cough or sputum production. She is on broad-spectrum antibiotics. She is undergoing dialysis. No obvious source of septicemia. White cell count is improving. On 05/07/2017 the patient seems to be doing worse. She is more lethargic and septic looking. The follow-up chest x-ray shows worsening of the right lower lobe pulmonary infiltration/airspace disease. The patient has been brought in in terms of antibiotic coverage and currently she is on a combination of Zosyn, Levaquin and vancomycin. She has developed also an acute hypoxic respiratory failure and currently she is on 10 L of oxygen by nasal cannula. On 05/08/2017, slightly better compared to how she felt yesterday, remains on BiPAP with IPAP of 10 and EPAP of 5. FiO2 is 45%.chest x-ray continues to show pulmonary edema, but clinically patient feels better. On 05/09/2017 the patient is doing somewhat better. She remains on the BiPAP at the same settings. She is receiving dialysis again today. She is on vancomycin and Levaquin. She is positive for MRSA. 2 acute leukocytosis, secondary to MRSA infectious source/sepsis. Patient is improving and the white cell count is down and the cultures of been negative thus far and the patient is on a combination of Zosyn and Levaquin. Vancomycin was also added to the regimen. 3 coronary artery disease and the patient has multivessel coronary artery disease and she has declined bypass surgery in the past, troponin leak, rule out acute non-ST segment elevation myocardial infarction , under investigation with cardiology 4 chronic paroxysmal atrial fibrillation 5 hypertensive heart disease/diastolic dysfunction 6 diabetes mellitus 7 End stage renal disease currently on hemodialysis. The patient has history of diabetic nephropathy. 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 Plan: The patient was seen and evaluated by Dr. Fishman. Will continue with her current treatment. We will continue to follow and make further recommendations based on her clinical status. I, the cosigning physician, have performed a history and physical examination on the patient. Lung sounds crackles in the bilateral posterior bases.. Maintaining good O2 saturations in the 90s on 50% BiPAP. I have discussed the assessment and plan of care with my nurse practitioner, Aruna Aquino. I attest to the above note as dictated by her.
--- NOTE | 2017-05-09 13:35 | P.PN ---
Subjective Progress Note Date: 05/09/17 This is a 71-year-old female patient of Dr. Garcia with past medical history of atrial fibrillation, coronary artery disease status post myocardial infarction, has history of triple-vessel disease but was considered high risk for bypass, on conservative treatment,chronic diastolic heart failure , diabetes mellitus type 2, hyperlipidemia, hypertension, end-stage renal disease on hemodialysis, peripheral neuropathy.patient was recently hospitalized at [facility] in with significant shortness of breath, she was suggestive of pulmonary edema with acute kidney injury on CK D4 in the December 2016 patient was initiated on hemodialysis. Patient is doing well until 6 days ago when she started having flulike symptoms associated with postnasal drip and cough. She did see Dr. Garcia 2 days ago and was prescribed antibiotics with steroids, patient was unable to get the prescription for albuterol and was using an prescription. With no improvement of symptoms. Since she was very short of breath yesterday along with palpitations she decided to come to the ER. She has been afebrile since admission, tachycardic from 100-102 blood pressure is stable in 136/65 retreat of 28 on admission patient was desaturating to the 78 on room air and was placed on BiPAP, chest x-ray suggestive of pulmonary edema. No consolidation or atelectasis present. Lactic acid was greater than 4 on admission and improved to 1.8 on repeat checking. No fluid boluses was given because patient is in end-stage renal disease. Labs including a CBC is 34.2, hemoglobin 11.4 MCV 101, INR 1.1, BNP suggestive of creatinine at 2.84. BUN of 24. Troponin elevated 0.47. ProBNP 9700. Patient was initiated on levofloxacin and Zosyn. Pulmonary, cardiology and nephrology consult placed for acute hypoxic respiratory failure, increase troponin anemia and CHF exacerbation and possible dialysis today for pulmonary edema. 05/06: patient continued to be lethargic no major events reported by nursing staff patient is alert and oriented following commands denying chest pain shortness breath nausea vomiting abdominal pain dizziness or lightheadedness 05/07:Patient continued to be hemodynamically stable seems to be responding after switching to BiPAP by pulmonary. Patient is not responding at this point to Lasix as she is not having any improvement in her urine output and nursing staff asked if that's can be switched to different medication. Patient is denying chest pain nausea vomiting dizziness lightheadedness or blurry vision seems to be oriented and following commands. Patient's baseline that she is bedbound at home and stated that she is extremely weak at this point 05/08: Repeat chest x-ray shows findings could represent pulmonary edema, pneumonia, correlate. Consult with Dr. Obrien has been added with recommendations for blood cultures from the port and continue vancomycin and Zosyn. Patient has been afebrile. Pulse ox is 95% on BiPAP. White count has dropped to 15.6. Hemoglobin today is 8.8. Initial blood culture is positive for coag-negative staph and repeats obtained on May 06 are showing no growth at 24 hours. Sputum culture is in progress and urine culture has been finalized with no growth at 18 hours. Daughter is at the bedside. Patient complains of weakness, less shortness of breath. No appetite. She only ate few bites of oatmeal this morning. She is wheelchair bound. Patient continues to have fluid retention. 05/09: Patient is scheduled for dialysis today. She is normally Monday schedule. She is continued on IV Bumex 1 mg 3 times daily and cardiology increase Cardizem to 60 mg 3 times daily. Repeat blood cultures are all showing no growth at 48 or 24 hours. Sputum culture is presumptive staph aureus. Patient has been afebrile. Patient has been on BiPAP with pulse ox of 90% but has dropped to 79% on nasal cannula when this in place for patient to eat. Oral intake is down for which scheduled NovoLog will be discontinued and Levemir dose adjusted. Patient could benefit from CAT scan once she is stable. Eliquis will be resumed. Objective - Vital Signs Vital signs: Vital Signs Temp 98.3 F 05/09/17 08:00 Pulse 81 05/09/17 08:00 Resp 23 05/09/17 08:00 BP 185/79 05/09/17 08:00 Pulse Ox 90 L 05/09/17 08:00 Intake & Output 05/08/17 05/09/17 05/09/17 18:59 06:59 18:59 Intake Total 300 220 Balance 300 220 Weight 104 kg Intake: IV 220 0.9 ns @ 20 170 Piperacillin-Tazobactam 3 50 .375 gm In Dextrose/Water 1 50ml.bag @ 12.5 mls/hr IVPB Q12HR [facility] Rx#: [id number] Oral 300 Other: Voiding Method Incontinent Incontinent Incontinent # Voids 1 - Exam General appearance: cooperative moderate acute distress on BiPAP, obese - EENT Eyes: anicteric sclerae, PERRLA, normal appearance ENT: hearing grossly normal - Neck Neck: no lymphadenopathy, normal ROM, no other, no rigidity, no stridor, no thyromegaly - Respiratory Respiratory: bilateral: Diminished air entry bilaterally with crackles heard at the bases, and very decreased air movement in the left lower lobe - Cardiovascular Rhythm: The cardiac Heart sounds: normal: S1, S2 Abnormal Heart Sounds: no systolic murmur, no diastolic murmur, no rub and no lower extremity edema - Gastrointestinal General gastrointestinal: normal bowel sounds, soft - Integumentary Integumentary: no rash - Neurologic Neurologic: CNII-XII intact - Musculoskeletal Musculoskeletal: strength equal bilaterally - Psychiatric Psychiatric: A&O x's 3, appropriate affect - Labs CBC & Chem 7: 05/08/17 06:13 05/08/17 06:13 Labs: Abnormal Lab Results - Last 24 Hours (Table) 05/08/17 05/08/17 05/08/17 Range/Units 11:24 16:45 21:08 POC Glucose (mg/dL) 208 H 103 H 215 H (75-99) mg/dL 05/09/17 05/09/17 Range/Units 03:52 06:08 POC Glucose (mg/dL) 151 H 204 H (75-99) mg/dL Microbiology - Last 24 Hours (Table) 05/06/17 15:38 Blood Culture - Preliminary Blood No Growth after 48 hours 05/06/17 15:16 Blood Culture - Preliminary Blood No Growth after 48 hours 05/07/17 14:50 Blood Culture - Preliminary Blood No Growth after 24 hours 05/07/17 13:51 Blood Culture - Preliminary Blood No Growth after 24 hours 05/07/17 07:24 Gram Stain - Preliminary Sputum Sputum Culture - Preliminary Presumptive Staph aureus 05/07/17 11:35 Urine Culture - Final Urine,Catheterized 05/05/17 06:31 Blood Culture Gram Stain - Final Blood Blood Culture - Final Coagulase Negative Staph Assessment and Plan Plan: 1. Acute hypoxic respiratory failure secondary to acute on chronic diastolic heart failure, COPD exacerbation, underlying community-acquired pneumonia, possible bacteremia. Moderate aortic stenosis. Continue on BiPAP continue patient on Imdur 30 mg orally once every day, Toprol-XLl 100 mg orally once every day, IV Bumex, input and output and daily weight, cardiology consultation. Continue Vanco and Zosyn. Pulmonary consult 2. Severe sepsis with possible source either urine or pneumonia, urinalysis suggestive of infection. Urine culture pending. 3. End-stage renal disease on hemodialysis with pulmonary edema seen on chest x -ray, possible another session of hemodialysis today 4. Hypertension. Continue metoprolol 100 mg orally once every day. 5. Paroxysmal atrial fibrillation. Continue amiodarone 100 mg orally once every day, Cardizem 60 mg 3 times daily, resume eliquis. 6. Morbid obesity with BMI of 39. 7. Troponinemia -history of coronary artery disease. Trend troponin every 63 echo ordered, continue heparin drip until seen by cardiology 8. Diabetes mellitus type 2 . Continue Lantus 30 units in the morning and 50 units in the night along with 10 units of aspart 3 times a day along with a sliding scale insulin. 9. GERD. Protonix. 10. Hypertension, hypertensive cardiovascular disease. Toprol-XL 100 mg orally once every day, nifedipine and Imdur 11. History of myocardial infarction and coronary artery disease. Continue aspirin 81 mg once every day, Toprol-XL 100 mg orally once every day, Imdur 30 mg orally once every day, Zetia 10 mg orally once every day. 12. Hyperlipidemia. 13. Diabetic peripheral neuropathy and neuropathy secondary to chronic back pain. Continue gabapentin 300 mg orally twice every day. 14. Depression, recurrent. Continue Cymbalta 60 mg orally once every day. 15. DVT prophylaxis. Eliquis and bilateral knee-high TERRIE hose. 16. GI Prophylaxis. Continue patient on PPI. 17. Full code. Impression and plan of care have been directed as dictated by the signing physician. Jessenia Gonzalez nurse practitioner acting as scribe for signing physician.
--- NOTE | 2017-05-09 15:08 | P.PN ---
Subjective Progress Note Date: 05/09/17 Principal diagnosis: CHF This is a pleasant 71-year-old female patient who follows was Dr. Combs in the office as an outpatient with a past medical history significant for coronary artery disease, heart failure with preserved LV function, hypertensive heart disease, moderate aortic stenosis, and paroxysmal atrial fibrillation presented to the hospital complaining of shortness of breath. The patient stated that she was in her usual state of health until the last 3 days when she started experiencing dyspnea. She did not have any bilateral lower extremities edema but she noticed an abdominal distention. No weight change. She did have some fever at home without chills, and also she has been experiencing cough productive of sputum. The patient was prescribed outpatient treatment with antibiotic but she did not respond well to the treatment. She is also known to have end-stage renal disease on hemodialysis and she stated that she did not miss any of her dialysis and beside that she stated that she was compliant with her medications and her diet as well as. Before she presented to the hospital she had some upper respiratory symptoms.The EKG showed sinus tachycardia. She does have also a right bundle branch block and left anterior fascicular block. The BNP came in to be around 9000. The chest x-ray showed pulmonary vascular congestions and bilateral pleural effusion worse on the right side. The cardiac enzymes were checked and came in to be slightly abnormal was mildly abnormal CK-MB and mildly abnormal troponin. This could reflect acute coronary syndrome and also the possibility of abnormal cardiac enzymes related to chronic kidney disease, be totally excluded. Please note that the patient did not have any symptoms of chest pain or chest discomfort.The last echocardiogram is from November 2016 and that revealed normal LV function, hypertensive heart disease, moderate aortic stenosis as well. 05/08/2017 Patient seen and examined this morning, breathing is stable. Blood pressure 160/ 70, heart rate in the 80s, 95% on BiPAP. White blood cell count 15.6, hemoglobin 8.8, potassium 4.8, BUN 57, creatinine 4.0. Repeat chest x-ray today revealed pulmonary edema and possible pneumonia. 05/09/2017 Patient seen and examined this morning, blood pressure 134/62, heart rate in the 80s. Objective - Vital Signs Vital signs: Vital Signs Temp 98.2 F 05/09/17 12:00 Pulse 84 05/09/17 12:15 Resp 23 05/09/17 12:30 BP 135/63 05/09/17 12:00 Pulse Ox 98 05/09/17 12:30 Intake & Output 05/08/17 05/09/17 05/09/17 18:59 06:59 18:59 Intake Total 300 220 236 Output Total 0 Balance 300 220 236 Weight 104 kg Intake: IV 220 0.9 ns @ 20 170 Piperacillin-Tazobactam 3 50 .375 gm In Dextrose/Water 1 50ml.bag @ 12.5 mls/hr IVPB Q12HR [facility] Rx#: [id number] Oral 300 236 Output: Urine 0 Stool 0 Other: Voiding Method Incontinent Incontinent Incontinent # Voids 1 0 - Exam PHYSICAL EXAMINATION: HEENT: Head is atraumatic, normocephalic. Pupils equal, round. Neck is supple. There is no elevated jugular venous pressure. HEART EXAMINATION: Heart S1 and S2 systolic murmur is heard. CHEST EXAMINATION: Lungs are clear anteriorly ABDOMEN: Soft, obese, nontender. Bowel sounds are heard. No organomegaly noted. EXTREMITIES: 1+ peripheral pulses with trace evidence of peripheral edema and no calf tenderness noted. NEUROLOGIC patient is awake, alert and oriented -3. . - Labs CBC & Chem 7: 05/08/17 06:13 05/08/17 06:13 Labs: Abnormal Lab Results - Last 24 Hours (Table) 05/08/17 05/08/17 05/09/17 Range/Units 16:45 21:08 03:52 POC Glucose (mg/dL) 103 H 215 H 151 H (75-99) mg/dL 05/09/17 Range/Units 06:08 POC Glucose (mg/dL) 204 H (75-99) mg/dL Microbiology - Last 24 Hours (Table) 05/07/17 07:24 Gram Stain - Final Sputum Sputum Culture - Final Methicillin resist S. aureus Rosario albicans 05/06/17 15:38 Blood Culture - Preliminary Blood No Growth after 48 hours 05/06/17 15:16 Blood Culture - Preliminary Blood No Growth after 48 hours 05/07/17 14:50 Blood Culture - Preliminary Blood No Growth after 24 hours 05/07/17 13:51 Blood Culture - Preliminary Blood No Growth after 24 hours 05/07/17 11:35 Urine Culture - Final Urine,Catheterized Assessment and Plan Plan: Assessment and plan #1 symptoms of progressive dyspnea with possible pneumonia, currently on antibiotics #2 history of coronary artery disease with multivessel coronary artery disease #3 paroxysmal atrial fibrillation #4 hypertension # 5 diabetes #6 end-stage renal disease on hemodialysis #7 morbid obesity Plan Cardiology's perspective we will continue current dose of IV Bumex. Check lytes BUN and creatinine today and in the morning. DNP note has been reviewed, I agree with a documented findings and plan of care. Patient was seen and examined.
[2017-05-09 16:43] LABS: Glucose,Whole Blood 217 mg/dL (75-99)
[2017-05-09] MEDS: AMIODARONE 100 MG TAB PO SCH (20:36)
[2017-05-09 20:45] LABS: Glucose,Whole Blood 173 mg/dL (75-99)
--- NOTE | 2017-05-09 21:14 | PN ---
PROGRESS NOTE Patient is seen for followup for end-stage renal disease. This morning she was quite short of breath and she is currently feeling better post dialysis. She had about 3.5 L of ultrafiltration. The patient is not on BiPAP. EXAMINATION: Blood pressure is elevated 174/72, earlier she was 135/63, heart rate is 80 per minute. Patient is afebrile. Examination of the heart S1, S2. Examination lungs bilateral breath sounds are heard. Abdomen is soft, nontender, obese. Examination lower extremity shows no evidence of edema. LABS SHOW: Potassium of 4.8, hemoglobin 8.8 g/dL from yesterday. ASSESSMENT: 1. End-stage renal disease, on hemodialysis on a Monday, , Monday schedule. We will arrange for extra treatment tomorrow for fluid overload. 2. Fluid overload currently improved. The patient's x-ray still appears to be showing congestive heart failure. We will dialyze her again tomorrow mainly for ultrafiltration. 3. Anemia of chronic disease. No active bleeding noted. The patient is maintained on Aranesp. 4. Hypertension, partly volume sensitive, currently on Cardizem, Toprol, we can add KUSHAL inhibitors if blood pressure remains elevated. 5. MRSA in the sputum. 6. Coagulase negative Staph bacteremia with repeat cultures being negative. PLAN: Repeat dialysis in a.m. mainly for ultrafiltration. MMODL / IJN: [id number] /
--- NOTE | 2017-05-09 21:53 | PN ---
PROGRESS NOTE DATE OF SERVICE: 05/09/2017. REASON FOR FOLLOWUP: MRSA pneumonia and bacteremia. INTERVAL HISTORY: The patient is afebrile. She is breathing slightly comfortably. Cough has decreased in intensity. Denies having any chest pain. No nausea, vomiting. No abdominal pain. No diarrhea. EXAMINATION: Blood pressure is 134/72 with a pulse of 83, temperature 98.3. She is 95% on 15L high- flow oxygen. General description is an elderly female lying in bed in no distress. RESPIRATORY SYSTEM: Unlabored breathing with decreased breath sounds in the bases. No wheeze. HEART: S1, S2. Regular rate and rhythm. ABDOMEN: Soft. No tenderness. LABS: Hemoglobin 8.8, white count 15.6 with a BUN of 57, creatinine of 4.09. Repeat blood culture has been negative. Sputum showing MRSA. DIAGNOSTIC IMPRESSION AND PLAN: Patient with methicillin-resistant Staphylococcus aureus pneumonia, also did have a positive blood culture with a coagulase-negative Staphylococcus. Repeat blood culture has been negative. Patient will continue vancomycin, Pharmacy to dose, target of 15. Zosyn will be discontinued, as no gram negative has been grown. Continue supportive care. MMODL / IJN: [id number] /
[2017-05-10 05:37] LABS: Glucose,Whole Blood 73 mg/dL (75-99)
[2017-05-10] MEDS: INSULIN ASPART 100 UNIT/ML 1 ML 10 ML VIAL SQ SCH ×4 (05:39→20:54)
[2017-05-10 05:58] LABS: Anisocytosis Slight; HGB 8.4 gm/dL (11.4-16.0); Hypochromasia Slight; Macrocytosis Slight; Mean Platelet Volume 8.5; Platelet Count 265 k/uL (150-450); RDW 16.6 % (11.5-15.5); WBC 17.6 k/uL (3.8-10.6)
[2017-05-10 06:11] LABS: Calcium 8.8 mg/dL (8.4-10.2); Potassium 4.4 mmol/L (3.5-5.1)
[2017-05-10 06:16] LABS: Vancomycin,Random 24.7 ug/mL
[2017-05-10] MEDS: SEVELAMER 800 MG TAB PO SCH ×3 (06:40→16:00)
[2017-05-10] MEDS: SODIUM CHLORIDE 0.9% 1,000 ML IV SCH (06:40)
[2017-05-10] MEDS: PANTOPRAZOLE 40 MG TABLET PO SCH (06:40)
[2017-05-10] MEDS: FERROUS SULFATE 325 MG TAB PO SCH (07:48)
[2017-05-10] MEDS: ASPIRIN 81 MG PO SCH (07:48)
[2017-05-10] MEDS: METOPROLOL SUCCINATE (ER) 100 MG TAB.ER.24H PO SCH (07:48)
[2017-05-10] MEDS: ISOSORBIDE MONONITRATE ER 30 MG TAB.ER.24H PO SCH (07:48)
[2017-05-10] MEDS: MAGNESIUM OXIDE 400 MG TAB PO SCH (07:48)
[2017-05-10] MEDS: EZETIMIBE 10 MG TAB PO SCH (07:49)
[2017-05-10] MEDS: DULoxetine HCL 60 MG CAPSULE.DR PO SCH (07:49)
[2017-05-10] MEDS: APIXABAN 2.5 MG TABLET PO SCH ×2 (07:49→20:24)
[2017-05-10] MEDS: DILTIAZEM ORAL 60 MG TAB PO SCH ×3 (07:49→20:25)
[2017-05-10] MEDS: AMIODARONE 100 MG TAB PO SCH (07:49)
[2017-05-10] MEDS: GABAPENTIN 300 MG CAP PO SCH ×2 (07:49→20:24)
[2017-05-10] MEDS: DOCUSATE 100 MG CAP PO SCH (07:49)
[2017-05-10] MEDS: BUMETANIDE 0.25 MG/ML 4 ML VIAL IVP SCH ×3 (07:49→20:25)
[2017-05-10] MEDS: INSULIN DETEMIR 100 UNIT/ML 10 ML VIAL SQ SCH ×2 (08:06→20:54)
[2017-05-10] MEDS: IPRATROPIUM-ALBUTEROL 3 ML NEB INHALATION SCH ×4 (09:01→19:45)
--- NOTE | 2017-05-10 11:13 | P.PN ---
Subjective Progress Note Date: 05/10/17 Principal diagnosis: Acute hypoxic respiratory failure secondary to pulmonary edema with renal failure, hypertensive heart disease, aortic stenosis. This is a 71-year-old female patient, morbidly obese along with known history of multivessel coronary artery disease and the patient has declined coronary artery bypass surgery a few years back, in addition to moderate degree of aortic stenosis, chronic atrial fibrillation, diastolic heart failure/ hypertensive heart disease, diabetes mellitus in addition to hyperlipidemia and hypertension and chronic renal failure which progressed over the past several months and the patient got started on dialysis through a permacath in her right IJ inserted approximately 3 months ago and the patient is undergoing dialysis 3 times a week Tuesdays and Saturdays and she has a pending left arm AV fistula later stage. The patient underwent her last dialysis yesterday. Over the past 24-48 hours the patient started having flulike symptoms with sore throat nasal congestion and postnasal drainage. She was seen by her primary care physician and she was given antibiotics and steroids. The patient was not getting any better and the patient came into the hospital because of worsening shortness of breath. Initial chest x-ray showed increased pulmonary vascular marking early pulmonary edema. No consolidation. No airspace disease or no pneumonias. Lactic acid level was more than 4 in the patient's white cell count was 34. The patient was started on empiric antibiotic coverage and currently is on a combination of Zosyn and Levaquin. Blood cultures still pending. BNP level is 9700. The patient was briefly placed on BiPAP and currently she is off BiPAP on 3 L of oxygen by nasal cannula. No previous history of DVT or pulmonary embolism. No previous history of obstructive sleep apnea. She is morbidly obese. No significant swelling in lower extremities at this point. On 05/06/2017 the patient is being seen in the follow-up. The patient is resting comfortably in bed. No fever or chills to she is undergoing dialysis and this is her routine dialysis day. Her white cell count is improving. She had leukocytosis at time of presentation which is improving. No fever. No chills. The dialysis catheter exit site is dry clean and intact. The blood culture has been negative thus far. The patient is covered empirically with a combination of Zosyn and Levaquin. No change in mental status. No chest pain. No other complaints otherwise. On 05/07/2017 the patient seems to be more lethargic. Her oxidation is also gotten worse. She is currently up to 10 L of oxygen by nasal cannula. She underwent hemodialysis yesterday. As such, a follow-up chest x-ray was obtained and it showed worsening right basilar airspace disease. Her white cell count is still in the low 20s. No fever or chills. She is very weak and lethargic. Antibiotics have been broadened and the patient is currently on a combination of Zosyn, Levaquin and vancomycin was also added to the regimen. The blood cultures consistent with bilateral is negative staph. No nausea. No vomiting. No altered mentation. Reevaluated today on 05/08/2016, patient remains on BiPAP, presently on 10/5 and FiO2 of 45%. Feels comfortable, patient is to receive dialysis today.feeling better breathing easier compared to how she felt on admission. Labs were reviewed hemoglobin is 8.8 WBC count is 15.6 BUN is 57 creatinine 4.09. Chest x -ray continues to show evidence of pulmonary edema and fluid overload. Patient is seen again today 05/09/2017 in follow-up on the regular medical floor. She is currently resting comfortably in bed. She is receiving dialysis again today with a goal of 3.5 L. She is currently on the BiPAP at 10/5 and 45 % FiO2. Saturations in the low 90s. She is afebrile. Hemodynamically stable. Her sputum is positive for MRSA. She is on vancomycin and Zosyn. ID is on the case. The patient is seen again today 05/10/2017 in follow-up on the selective care unit. She is awake and alert in no acute distress. She is resting quite comfortably flat in bed. She is currently on the BiPAP at 10/5 50% FiO2. She has been afebrile. She denies any worsening shortness of breath, cough or congestion. White count 17.6. Hemoglobin 8.4. Creatinine 3.30. Vancomycin 24.7. Objective - Vital Signs Vital signs: Vital Signs Temp 97.7 F 05/10/17 07:56 Pulse 76 05/10/17 09:22 Resp 20 05/10/17 07:56 BP 149/67 05/10/17 07:56 Pulse Ox 92 L 05/10/17 07:56 Intake & Output 05/09/17 05/10/17 05/10/17 18:59 06:59 18:59 Intake Total 1013 80 0 Output Total 0 0 Balance 1013 80 0 Weight 99 kg Intake: IV 80 0.9 ns @ 20 80 Oral 1013 0 Output: Urine 0 Stool 0 0 Other: Voiding Method Incontinent Incontinent Incontinent # Voids 0 - Exam Physical Exam: Revealed a 71-year-old female obese, on BiPAP, in no distress while on BiPAP. HEENT:[Neck is supple.] [No neck masses.] [No thyromegaly.] [No JVD.]PERRLA, EOMI.significant crowding of the oropharynx was noted. Mallampati class IV. Chest: [Ccrackles and rhonchi were noted at the bases bilaterally. Cardiac Exam: [Normal S1 and S2, no S3 gallop, 3/6 systolic murmur thought the precordium. Abdomen: [Soft, nontender, no megaly, no rebound, no guarding, normal bowel sounds.] Extremities: [No clubbing, 1+ bipedaledema, no cyanosis.] Neurological Exam: [No focal neurologic deficit. lymphatics:No evidence ofLymphadenopathy. psychiatric: Normal mood affect and mental status examination. - Labs CBC & Chem 7: 05/10/17 05:24 05/10/17 05:24 Labs: Abnormal Lab Results - Last 24 Hours (Table) 05/09/17 05/09/17 05/10/17 Range/Units 16:41 20:43 05:24 WBC (3.8-10.6) k/uL RBC (3.80-5.40) m/uL Hgb (11.4-16.0) gm/dL Hct (34.0-46.0) % RDW (11.5-15.5) % BUN 40 H (7-17) mg/dL Creatinine 3.30 H (0.52-1.04) mg/dL Glucose 60 L (74-99) mg/dL POC Glucose (mg/dL) 217 H 173 H (75-99) mg/dL 05/10/17 05/10/17 Range/Units 05:24 05:36 WBC 17.6 H (3.8-10.6) k/uL RBC 2.70 L (3.80-5.40) m/uL Hgb 8.4 L (11.4-16.0) gm/dL Hct 27.0 L (34.0-46.0) % RDW 16.6 H (11.5-15.5) % BUN (7-17) mg/dL Creatinine (0.52-1.04) mg/dL Glucose (74-99) mg/dL POC Glucose (mg/dL) 73 L (75-99) mg/dL Microbiology - Last 24 Hours (Table) 05/06/17 15:38 Blood Culture - Preliminary Blood No Growth after 72 hours 05/06/17 15:16 Blood Culture - Preliminary Blood No Growth after 72 hours 05/07/17 14:50 Blood Culture - Preliminary Blood No Growth after 48 hours 05/07/17 13:51 Blood Culture - Preliminary Blood No Growth after 48 hours 05/07/17 07:24 Gram Stain - Final Sputum Sputum Culture - Final Methicillin resist S. aureus Rosario albicans Assessment and Plan Assessment: 1 acute dyspnea along with a hypoxic respiratory failure. Chest x-rays consistent with increased vascular marking and fluid overload. Underlying CHF cannot be completely excluded. Contributing factors could be renal failure and the patient is known to have hypertensive heart disease and moderate degree of aortic stenosis on her echocardiogram. Her sputum is positive for MRSA and Rosario. On 05/06/2017, the patient is feeling, comfortable. No respiratory distress. No cough or sputum production. She is on broad-spectrum antibiotics. She is undergoing dialysis. No obvious source of septicemia. White cell count is improving. On 05/07/2017 the patient seems to be doing worse. She is more lethargic and septic looking. The follow-up chest x-ray shows worsening of the right lower lobe pulmonary infiltration/airspace disease. The patient has been brought in in terms of antibiotic coverage and currently she is on a combination of Zosyn, Levaquin and vancomycin. She has developed also an acute hypoxic respiratory failure and currently she is on 10 L of oxygen by nasal cannula. On 05/08/2017, slightly better compared to how she felt yesterday, remains on BiPAP with IPAP of 10 and EPAP of 5. FiO2 is 45%.chest x-ray continues to show pulmonary edema, but clinically patient feels better. On 05/09/2017 the patient is doing somewhat better. She remains on the BiPAP at the same settings. She is receiving dialysis again today. She is on vancomycin and Levaquin. She is positive for MRSA. On 05/10/2017 the patient remains quite stable. She is comfortable on the BiPAP currently 10/5 and 50% FiO2. ID remains on the case. The Zosyn has been discontinued. She is continued on vancomycin. Receiving extra dialysis today. She remains on Bumex 1 mg IVP 3 times a day 2 acute leukocytosis, secondary to MRSA infectious source/sepsis. Vancomycin was also added to the regimen. 3 coronary artery disease and the patient has multivessel coronary artery disease and she has declined bypass surgery in the past, troponin leak, rule out acute non-ST segment elevation myocardial infarction , under investigation with cardiology 4 chronic paroxysmal atrial fibrillation 5 hypertensive heart disease/diastolic dysfunction 6 diabetes mellitus 7 End stage renal disease currently on hemodialysis. Usually Monday. The patient has history of diabetic nephropathy. The patient underwent an extra hemodialysis day 8 morbid obesity with obvious clinical features of obstructive sleep apnea 9 hypertension 10 diabetic peripheral neuropathy 11 right bundle branch block with left anterior fascicular block 12 coagulase-negative staph in the blood, follow-up blood cultures reveal no growth. Plan: The patient was seen and evaluated by Dr. Fishman. Will continue with her current treatment. We'll repeat a chest x-ray today after dialysis. We will continue to follow and make further recommendations based on her clinical status. I, the cosigning physician, have performed a history and physical examination on the patient. Lung sounds crackles in the bilateral posterior bases.. Maintaining good O2 saturations in the 90s on 50% BiPAP. I have discussed the assessment and plan of care with my nurse practitioner, Aruna Aquino. I attest to the above note as dictated by her.
--- NOTE | 2017-05-10 11:16 | P.PN ---
Subjective Progress Note Date: 05/10/17 This is a 71-year-old female patient of Dr. Garcia with past medical history of atrial fibrillation, coronary artery disease status post myocardial infarction, has history of triple-vessel disease but was considered high risk for bypass, on conservative treatment,chronic diastolic heart failure , diabetes mellitus type 2, hyperlipidemia, hypertension, end-stage renal disease on hemodialysis, peripheral neuropathy.patient was recently hospitalized at [facility] in with significant shortness of breath, she was suggestive of pulmonary edema with acute kidney injury on CK D4 in the December 2016 patient was initiated on hemodialysis. Patient is doing well until 6 days ago when she started having flulike symptoms associated with postnasal drip and cough. She did see Dr. Garcia 2 days ago and was prescribed antibiotics with steroids, patient was unable to get the prescription for albuterol and was using an prescription. With no improvement of symptoms. Since she was very short of breath yesterday along with palpitations she decided to come to the ER. She has been afebrile since admission, tachycardic from 100-102 blood pressure is stable in 136/65 retreat of 28 on admission patient was desaturating to the 78 on room air and was placed on BiPAP, chest x-ray suggestive of pulmonary edema. No consolidation or atelectasis present. Lactic acid was greater than 4 on admission and improved to 1.8 on repeat checking. No fluid boluses was given because patient is in end-stage renal disease. Labs including a CBC is 34.2, hemoglobin 11.4 MCV 101, INR 1.1, BNP suggestive of creatinine at 2.84. BUN of 24. Troponin elevated 0.47. ProBNP 9700. Patient was initiated on levofloxacin and Zosyn. Pulmonary, cardiology and nephrology consult placed for acute hypoxic respiratory failure, increase troponin anemia and CHF exacerbation and possible dialysis today for pulmonary edema. 05/06: patient continued to be lethargic no major events reported by nursing staff patient is alert and oriented following commands denying chest pain shortness breath nausea vomiting abdominal pain dizziness or lightheadedness 05/07:Patient continued to be hemodynamically stable seems to be responding after switching to BiPAP by pulmonary. Patient is not responding at this point to Lasix as she is not having any improvement in her urine output and nursing staff asked if that's can be switched to different medication. Patient is denying chest pain nausea vomiting dizziness lightheadedness or blurry vision seems to be oriented and following commands. Patient's baseline that she is bedbound at home and stated that she is extremely weak at this point 05/08: Repeat chest x-ray shows findings could represent pulmonary edema, pneumonia, correlate. Consult with Dr. Obrien has been added with recommendations for blood cultures from the port and continue vancomycin and Zosyn. Patient has been afebrile. Pulse ox is 95% on BiPAP. White count has dropped to 15.6. Hemoglobin today is 8.8. Initial blood culture is positive for coag-negative staph and repeats obtained on May 06 are showing no growth at 24 hours. Sputum culture is in progress and urine culture has been finalized with no growth at 18 hours. Daughter is at the bedside. Patient complains of weakness, less shortness of breath. No appetite. She only ate few bites of oatmeal this morning. She is wheelchair bound. Patient continues to have fluid retention. 05/09: Patient is scheduled for dialysis today. She is normally Monday schedule. She is continued on IV Bumex 1 mg 3 times daily and cardiology increase Cardizem to 60 mg 3 times daily. Repeat blood cultures are all showing no growth at 48 or 24 hours. Sputum culture is presumptive staph aureus. Patient has been afebrile. Patient has been on BiPAP with pulse ox of 90% but has dropped to 79% on nasal cannula when this in place for patient to eat. Oral intake is down for which scheduled NovoLog will be discontinued and Levemir dose adjusted. Patient could benefit from CAT scan once she is stable. Eliquis will be resumed. 05/10: Patient has been on BiPAP or nasal cannula at 15 L and pulse oxing 91-93% . White count is at 17 and hemoglobin 8.4. Her blood glucose running between 73 and 217 with changes made yesterday to insulins. Sputum cultures positive for MRSA. Dr. Obrien has discontinued Zosyn and continued vancomycin. Patient to have repeat dialysis today. Patient has not had a bowel movement since admission and Colace changed to Senokot scheduled. Objective - Vital Signs Vital signs: Vital Signs Temp 97.7 F 05/10/17 07:56 Pulse 74 05/10/17 07:56 Resp 20 05/10/17 07:56 BP 149/67 05/10/17 07:56 Pulse Ox 92 L 05/10/17 07:56 Intake & Output 05/09/17 05/10/17 05/10/17 18:59 06:59 18:59 Intake Total 1013 80 0 Output Total 0 0 Balance 1013 80 0 Weight 99 kg Intake: IV 80 0.9 ns @ 20 80 Oral 1013 0 Output: Urine 0 Stool 0 0 Other: Voiding Method Incontinent Incontinent Incontinent # Voids 0 - Exam General appearance: cooperative moderate acute distress on BiPAP, obese - EENT Eyes: anicteric sclerae, PERRLA, normal appearance ENT: hearing grossly normal - Neck Neck: no lymphadenopathy, normal ROM, no other, no rigidity, no stridor, no thyromegaly - Respiratory Respiratory: bilateral: Diminished air entry bilaterally with crackles heard at the bases, and very decreased air movement in the left lower lobe - Cardiovascular Rhythm: The cardiac Heart sounds: normal: S1, S2 Abnormal Heart Sounds: no systolic murmur, no diastolic murmur, no rub and no lower extremity edema - Gastrointestinal General gastrointestinal: normal bowel sounds, soft - Integumentary Integumentary: no rash - Neurologic Neurologic: CNII-XII intact - Musculoskeletal Musculoskeletal: strength equal bilaterally - Psychiatric Psychiatric: A&O x's 3, appropriate affect - Labs CBC & Chem 7: 05/10/17 05:24 05/10/17 05:24 Labs: Abnormal Lab Results - Last 24 Hours (Table) 05/09/17 05/09/17 05/10/17 Range/Units 16:41 20:43 05:24 WBC (3.8-10.6) k/uL RBC (3.80-5.40) m/uL Hgb (11.4-16.0) gm/dL Hct (34.0-46.0) % RDW (11.5-15.5) % BUN 40 H (7-17) mg/dL Creatinine 3.30 H (0.52-1.04) mg/dL Glucose 60 L (74-99) mg/dL POC Glucose (mg/dL) 217 H 173 H (75-99) mg/dL 05/10/17 05/10/17 Range/Units 05:24 05:36 WBC 17.6 H (3.8-10.6) k/uL RBC 2.70 L (3.80-5.40) m/uL Hgb 8.4 L (11.4-16.0) gm/dL Hct 27.0 L (34.0-46.0) % RDW 16.6 H (11.5-15.5) % BUN (7-17) mg/dL Creatinine (0.52-1.04) mg/dL Glucose (74-99) mg/dL POC Glucose (mg/dL) 73 L (75-99) mg/dL Microbiology - Last 24 Hours (Table) 05/06/17 15:38 Blood Culture - Preliminary Blood No Growth after 72 hours 05/06/17 15:16 Blood Culture - Preliminary Blood No Growth after 72 hours 05/07/17 14:50 Blood Culture - Preliminary Blood No Growth after 48 hours 05/07/17 13:51 Blood Culture - Preliminary Blood No Growth after 48 hours 05/07/17 07:24 Gram Stain - Final Sputum Sputum Culture - Final Methicillin resist S. aureus Rosario albicans Assessment and Plan Plan: 1. Acute hypoxic respiratory failure secondary to acute on chronic diastolic heart failure, COPD exacerbation, MRSA pneumonia, possible bacteremia. Moderate aortic stenosis. Continue on BiPAP continue patient on Imdur 30 mg orally once every day, Toprol-XLl 100 mg orally once every day, IV Bumex, input and output and daily weight, cardiology consultation. Continue Vanco. Dr. Obrien is following. Pulmonary consult 2. Severe sepsis secondary to MRSA pneumonia. 3. End-stage renal disease on hemodialysis with pulmonary edema seen on chest x -ray, possible another session of hemodialysis today 4. Hypertension. Continue metoprolol 100 mg orally once every day. 5. Paroxysmal atrial fibrillation. Continue amiodarone 100 mg orally once every day, Cardizem 60 mg 3 times daily, resume eliquis. 6. Morbid obesity with BMI of 39. 7. Troponinemia -history of coronary artery disease. Acute coronary syndrome ruled out by cardiology 8. Diabetes mellitus type 2 . Continue Lantus 30 units in the morning and 40 units in the evening, discontinue scheduled NovoLog and continue sliding scale insulin. 9. GERD. Protonix. 10. Hypertension, hypertensive cardiovascular disease. Toprol-XL 100 mg orally once every day, and Imdur, Cardizem, Zetia 11. History of myocardial infarction and coronary artery disease. Continue aspirin 81 mg once every day, Toprol-XL 100 mg orally once every day, Imdur 30 mg orally once every day, Zetia 10 mg orally once every day. 12. Hyperlipidemia. 13. Diabetic peripheral neuropathy and neuropathy secondary to chronic back pain. Continue gabapentin 300 mg orally twice every day. 14. Depression, recurrent. Continue Cymbalta 60 mg orally once every day. 15. DVT prophylaxis. Eliquis and bilateral knee-high TERRIE hose. 16. GI Prophylaxis. Continue patient on PPI. 17. Full code. Impression and plan of care have been directed as dictated by the signing physician. Jessenia Gonzalez nurse practitioner acting as scribe for signing physician.
[2017-05-10 11:53] LABS: Glucose,Whole Blood 87 mg/dL (75-99)
[2017-05-10] MEDS ORDERED: HEPARIN SODIUM,PORCINE 5,000 UNIT/ML 1 ML VIAL ONE (14:30)
--- NOTE | 2017-05-10 15:15 | P.PN ---
Subjective Progress Note Date: 05/10/17 Principal diagnosis: CHF This is a pleasant 71-year-old female patient who follows was Dr. Combs in the office as an outpatient with a past medical history significant for coronary artery disease, heart failure with preserved LV function, hypertensive heart disease, moderate aortic stenosis, and paroxysmal atrial fibrillation presented to the hospital complaining of shortness of breath. The patient stated that she was in her usual state of health until the last 3 days when she started experiencing dyspnea. She did not have any bilateral lower extremities edema but she noticed an abdominal distention. No weight change. She did have some fever at home without chills, and also she has been experiencing cough productive of sputum. The patient was prescribed outpatient treatment with antibiotic but she did not respond well to the treatment. She is also known to have end-stage renal disease on hemodialysis and she stated that she did not miss any of her dialysis and beside that she stated that she was compliant with her medications and her diet as well as. Before she presented to the hospital she had some upper respiratory symptoms.The EKG showed sinus tachycardia. She does have also a right bundle branch block and left anterior fascicular block. The BNP came in to be around 9000. The chest x-ray showed pulmonary vascular congestions and bilateral pleural effusion worse on the right side. The cardiac enzymes were checked and came in to be slightly abnormal was mildly abnormal CK-MB and mildly abnormal troponin. This could reflect acute coronary syndrome and also the possibility of abnormal cardiac enzymes related to chronic kidney disease, be totally excluded. Please note that the patient did not have any symptoms of chest pain or chest discomfort.The last echocardiogram is from November 2016 and that revealed normal LV function, hypertensive heart disease, moderate aortic stenosis as well. 05/08/2017 Patient seen and examined this morning, breathing is stable. Blood pressure 160/ 70, heart rate in the 80s, 95% on BiPAP. White blood cell count 15.6, hemoglobin 8.8, potassium 4.8, BUN 57, creatinine 4.0. Repeat chest x-ray today revealed pulmonary edema and possible pneumonia. 05/09/2017 Patient seen and examined this morning, blood pressure 134/62, heart rate in the 80s. 05/10/2017 seen and examined, states that her breathing is better overall, states that she has a poor appetite today. Just completing dialysis at the time of our examination. They were able to take 3 L off today. Her weight is also down significantly today. Hemodynamically stable. Objective - Vital Signs Vital signs: Vital Signs Temp 97.5 F L 05/10/17 12:00 Pulse 64 05/10/17 13:15 Resp 24 05/10/17 12:00 BP 131/60 05/10/17 12:00 Pulse Ox 94 L 05/10/17 12:00 Intake & Output 05/09/17 05/10/17 05/10/17 18:59 06:59 18:59 Intake Total 1013 80 0 Output Total 0 0 Balance 1013 80 0 Weight 99 kg Intake: IV 80 0.9 ns @ 20 80 Oral 1013 0 Output: Urine 0 Stool 0 0 Other: Voiding Method Incontinent Incontinent Incontinent # Voids 0 - Exam PHYSICAL EXAMINATION: HEENT: Head is atraumatic, normocephalic. Pupils equal, round. Neck is supple. There is no elevated jugular venous pressure. HEART EXAMINATION: Heart S1 and S2 systolic murmur is heard. CHEST EXAMINATION: Lungs are clear anteriorly ABDOMEN: Soft, obese, nontender. Bowel sounds are heard. No organomegaly noted. EXTREMITIES: 1+ peripheral pulses with trace evidence of peripheral edema and no calf tenderness noted. NEUROLOGIC patient is awake, alert and oriented -3. . - Labs CBC & Chem 7: 05/10/17 05:24 05/10/17 05:24 Labs: Abnormal Lab Results - Last 24 Hours (Table) 05/09/17 05/09/17 05/10/17 Range/Units 16:41 20:43 05:24 WBC (3.8-10.6) k/uL RBC (3.80-5.40) m/uL Hgb (11.4-16.0) gm/dL Hct (34.0-46.0) % RDW (11.5-15.5) % BUN 40 H (7-17) mg/dL Creatinine 3.30 H (0.52-1.04) mg/dL Glucose 60 L (74-99) mg/dL POC Glucose (mg/dL) 217 H 173 H (75-99) mg/dL 05/10/17 05/10/17 Range/Units 05:24 05:36 WBC 17.6 H (3.8-10.6) k/uL RBC 2.70 L (3.80-5.40) m/uL Hgb 8.4 L (11.4-16.0) gm/dL Hct 27.0 L (34.0-46.0) % RDW 16.6 H (11.5-15.5) % BUN (7-17) mg/dL Creatinine (0.52-1.04) mg/dL Glucose (74-99) mg/dL POC Glucose (mg/dL) 73 L (75-99) mg/dL Microbiology - Last 24 Hours (Table) 05/06/17 15:38 Blood Culture - Preliminary Blood No Growth after 72 hours 05/06/17 15:16 Blood Culture - Preliminary Blood No Growth after 72 hours 05/07/17 14:50 Blood Culture - Preliminary Blood No Growth after 48 hours 05/07/17 13:51 Blood Culture - Preliminary Blood No Growth after 48 hours 05/07/17 07:24 Gram Stain - Final Sputum Sputum Culture - Final Methicillin resist S. aureus Rosario albicans Assessment and Plan Plan: Assessment and plan #1 symptoms of progressive dyspnea with possible pneumonia, currently on antibiotics #2 history of coronary artery disease with multivessel coronary artery disease #3 paroxysmal atrial fibrillation #4 hypertension # 5 diabetes #6 end-stage renal disease on hemodialysis #7 morbid obesity Plan From cardiology's perspective, we'll follow this patient with you now on an as- needed basis only, please don't hesitate to call with any questions. DNP note has been reviewed, I agree with a documented findings and plan of care. Patient was seen and examined.
[2017-05-10] MEDS: SENNOSIDES-DOCUSATE SODIUM 1 EACH TAB PO SCH ×2 (16:00→20:24)
--- NOTE | 2017-05-10 16:16 | XR ---
EXAMINATION TYPE: XR chest 1V portable DATE OF EXAM: 05/10/2017 COMPARISON: Prior chest x-ray 05/08/2017 HISTORY: Congestive heart failure TECHNIQUE: Single frontal view of the chest is obtained. FINDINGS: Right jugular central venous catheter remains in place. Lung volumes remain low. Heart rem ains enlarged. Metallic densities are again seen. There are overlying cardiac leads. Suspect some imp rovement in aeration. IMPRESSION: Improvement in aeration within the lungs.
[2017-05-10 16:42] LABS: Glucose,Whole Blood 122 mg/dL (75-99)
[2017-05-10 20:47] LABS: Glucose,Whole Blood 145 mg/dL (75-99)
--- NOTE | 2017-05-10 21:39 | PN ---
PROGRESS NOTE DATE OF SERVICE: 05/10/2017. REASON FOR FOLLOW UP: MRSA pneumonia. INTERVAL HISTORY: The patient is afebrile. He is breathing slightly comfortably compared to yesterday. Overall, cough has decreased intensity. no chest pain. No nausea, no vomiting. No choking on the food. No abdominal pain and no diarrhea. EXAMINATION: Blood pressure is 156/55 with a pulse of 54, temperature of 97.7, she is 94% on 15 L nasal cannula. General description is an elderly female lying in bed in no distress. HEENT examination pallor. No scleral icterus. Oral mucosa is dry. Lungs unlabored breathing. Coarse breath sounds in the bases. No wheeze. Heart S1, S2. Regular rate and rhythm. Abdomen soft, no tenderness. LABS: Hemoglobin 8.4, white count 17.6 with a BUN of 40, creatinine 3.30. Sputum with MRSA and Rosario albicans. Blood culture has been negative. DIAGNOSTIC IMPRESSION AND PLAN: Patient with admission to the hospital with pneumonia, sputum with MRSA. Blood culture with coagulase negative Staph with repeat has been negative so far. The patient did have a chest x-ray this morning which did show some improved aeration within the lungs. The patient will continue vancomycin. Pharmacy to dose. Target of 15 for at least 2 weeks. Continue supportive care. MMODL / IJN: [id number] / MTDD
[2017-05-11 05:53] LABS: Glucose,Whole Blood 70 mg/dL (75-99)
[2017-05-11] MEDS: INSULIN ASPART 100 UNIT/ML 1 ML 10 ML VIAL SQ SCH ×4 (05:57→21:47)
[2017-05-11 06:50] LABS: Anisocytosis Slight; HCT 30.4 % (34.0-46.0); HGB 9.4 gm/dL (11.4-16.0); Hypochromasia Slight; MCH 30.1 pg (25.0-35.0); MCHC 30.9 g/dL (31.0-37.0); MCV 97.6 fL (80.0-100.0); Macrocytosis Slight; Mean Platelet Volume 8.7; Platelet Count 335 k/uL (150-450); RBC 3.11 m/uL (3.80-5.40)
[2017-05-11 06:52] LABS: Calcium 8.8 mg/dL (8.4-10.2); Potassium 3.7 mmol/L (3.5-5.1)
[2017-05-11] MEDS: PANTOPRAZOLE 40 MG TABLET PO SCH (06:55)
[2017-05-11] MEDS: SEVELAMER 800 MG TAB PO SCH ×3 (06:55→17:41)
[2017-05-11] MEDS: IPRATROPIUM-ALBUTEROL 3 ML NEB INHALATION SCH ×4 (07:18→20:54)
[2017-05-11 08:02] LABS: Vancomycin,Random 17.5 ug/mL
[2017-05-11] MEDS ORDERED: VANCOMYCIN 1,500 MG in SODIUM CHLORIDE 0.9% 250 ML IVPB ONE (09:00)
[2017-05-11] MEDS ORDERED: POLYETHYLENE GLYCOL 3350 17 GM POWD.PACK PO STA (09:07)
[2017-05-11] MEDS: SODIUM CHLORIDE 0.9% 1,000 ML IV SCH (09:10)
[2017-05-11] MEDS: DILTIAZEM ORAL 60 MG TAB PO SCH ×3 (09:57→20:34)
[2017-05-11] MEDS: ASPIRIN 81 MG PO SCH (09:57)
[2017-05-11] MEDS: BUMETANIDE 0.25 MG/ML 4 ML VIAL IVP SCH ×3 (09:57→21:47)
[2017-05-11] MEDS: APIXABAN 2.5 MG TABLET PO SCH ×2 (09:57→20:34)
[2017-05-11] MEDS: GABAPENTIN 300 MG CAP PO SCH ×2 (09:57→20:34)
[2017-05-11] MEDS: AMIODARONE 100 MG TAB PO SCH (09:57)
[2017-05-11] MEDS: FERROUS SULFATE 325 MG TAB PO SCH (09:57)
[2017-05-11] MEDS: ISOSORBIDE MONONITRATE ER 30 MG TAB.ER.24H PO SCH (09:58)
[2017-05-11] MEDS: METOPROLOL SUCCINATE (ER) 100 MG TAB.ER.24H PO SCH (09:58)
[2017-05-11] MEDS: MAGNESIUM OXIDE 400 MG TAB PO SCH (09:58)
[2017-05-11] MEDS: EZETIMIBE 10 MG TAB PO SCH (09:58)
[2017-05-11] MEDS: DULoxetine HCL 60 MG CAPSULE.DR PO SCH (09:58)
[2017-05-11] MEDS: SENNOSIDES-DOCUSATE SODIUM 1 EACH TAB PO SCH ×2 (09:58→20:34)
[2017-05-11] MEDS: INSULIN DETEMIR 100 UNIT/ML 10 ML VIAL SQ SCH ×2 (10:02→21:47)
--- NOTE | 2017-05-11 11:02 | P.PN ---
Subjective Progress Note Date: 05/11/17 This is a 71-year-old female patient of Dr. Garcia with past medical history of atrial fibrillation, coronary artery disease status post myocardial infarction, has history of triple-vessel disease but was considered high risk for bypass, on conservative treatment,chronic diastolic heart failure , diabetes mellitus type 2, hyperlipidemia, hypertension, end-stage renal disease on hemodialysis, peripheral neuropathy.patient was recently hospitalized at [facility] in with significant shortness of breath, she was suggestive of pulmonary edema with acute kidney injury on CK D4 in the December 2016 patient was initiated on hemodialysis. Patient is doing well until 6 days ago when she started having flulike symptoms associated with postnasal drip and cough. She did see Dr. Garcia 2 days ago and was prescribed antibiotics with steroids, patient was unable to get the prescription for albuterol and was using an prescription. With no improvement of symptoms. Since she was very short of breath yesterday along with palpitations she decided to come to the ER. She has been afebrile since admission, tachycardic from 100-102 blood pressure is stable in 136/65 retreat of 28 on admission patient was desaturating to the 78 on room air and was placed on BiPAP, chest x-ray suggestive of pulmonary edema. No consolidation or atelectasis present. Lactic acid was greater than 4 on admission and improved to 1.8 on repeat checking. No fluid boluses was given because patient is in end-stage renal disease. Labs including a CBC is 34.2, hemoglobin 11.4 MCV 101, INR 1.1, BNP suggestive of creatinine at 2.84. BUN of 24. Troponin elevated 0.47. ProBNP 9700. Patient was initiated on levofloxacin and Zosyn. Pulmonary, cardiology and nephrology consult placed for acute hypoxic respiratory failure, increase troponin anemia and CHF exacerbation and possible dialysis today for pulmonary edema. 05/06: patient continued to be lethargic no major events reported by nursing staff patient is alert and oriented following commands denying chest pain shortness breath nausea vomiting abdominal pain dizziness or lightheadedness 05/07:Patient continued to be hemodynamically stable seems to be responding after switching to BiPAP by pulmonary. Patient is not responding at this point to Lasix as she is not having any improvement in her urine output and nursing staff asked if that's can be switched to different medication. Patient is denying chest pain nausea vomiting dizziness lightheadedness or blurry vision seems to be oriented and following commands. Patient's baseline that she is bedbound at home and stated that she is extremely weak at this point 05/08: Repeat chest x-ray shows findings could represent pulmonary edema, pneumonia, correlate. Consult with Dr. Obrien has been added with recommendations for blood cultures from the port and continue vancomycin and Zosyn. Patient has been afebrile. Pulse ox is 95% on BiPAP. White count has dropped to 15.6. Hemoglobin today is 8.8. Initial blood culture is positive for coag-negative staph and repeats obtained on May 06 are showing no growth at 24 hours. Sputum culture is in progress and urine culture has been finalized with no growth at 18 hours. Daughter is at the bedside. Patient complains of weakness, less shortness of breath. No appetite. She only ate few bites of oatmeal this morning. She is wheelchair bound. Patient continues to have fluid retention. 05/09: Patient is scheduled for dialysis today. She is normally Monday schedule. She is continued on IV Bumex 1 mg 3 times daily and cardiology increase Cardizem to 60 mg 3 times daily. Repeat blood cultures are all showing no growth at 48 or 24 hours. Sputum culture is presumptive staph aureus. Patient has been afebrile. Patient has been on BiPAP with pulse ox of 90% but has dropped to 79% on nasal cannula when this in place for patient to eat. Oral intake is down for which scheduled NovoLog will be discontinued and Levemir dose adjusted. Patient could benefit from CAT scan once she is stable. Eliquis will be resumed. 05/10: Patient has been on BiPAP or nasal cannula at 15 L and pulse oxing 91-93% . White count is at 17 and hemoglobin 8.4. Her blood glucose running between 73 and 217 with changes made yesterday to insulins. Sputum cultures positive for MRSA. Dr. Obrien has discontinued Zosyn and continued vancomycin. Patient to have repeat dialysis today. Patient has not had a bowel movement since admission and Colace changed to Senokot scheduled. 05/11: Dr. Obrien has recommended vancomycin for 2 weeks. Cardiology is following on an as-needed basis only. Her heart rate is currently controlled and she has been afebrile. She is currently on high flow nasal cannula at 15 L pulse oxing 93-98%. Breathing status is improving. Patient continues of constipation for which one dose of MiraLAX added. She may be able to participate with physical therapy today. Objective - Vital Signs Vital signs: Vital Signs Temp 97.4 F L 05/11/17 04:00 Pulse 72 05/11/17 07:31 Resp 18 05/11/17 04:00 BP 146/67 05/11/17 04:00 Pulse Ox 93 L 05/11/17 07:18 Intake & Output 05/10/17 05/11/17 05/11/17 18:59 06:59 18:59 Intake Total 340 410 120 Output Total 0 0 Balance 340 410 120 Weight 98 kg Intake: IV 10 0.9 ns @ 20 10 Oral 340 400 120 Output: Stool 0 0 Other: Voiding Method Incontinent Incontinent # Voids 0 - Exam General appearance: cooperative minimal distress on N/C, obese - EENT Eyes: anicteric sclerae, PERRLA, normal appearance ENT: hearing grossly normal - Neck Neck: no lymphadenopathy, normal ROM, no other, no rigidity, no stridor, no thyromegaly - Respiratory Respiratory: bilateral: Diminished air entry bilaterally with crackles heard at the bases, and very decreased air movement in the left lower lobe - Cardiovascular Rhythm: The cardiac Heart sounds: normal: S1, S2 Abnormal Heart Sounds: no systolic murmur, no diastolic murmur, no rub and no lower extremity edema - Gastrointestinal General gastrointestinal: normal bowel sounds, soft - Integumentary Integumentary: no rash - Neurologic Neurologic: CNII-XII intact - Musculoskeletal Musculoskeletal: strength equal bilaterally - Psychiatric Psychiatric: A&O x's 3, appropriate affect - Labs CBC & Chem 7: 05/11/17 06:30 05/11/17 06:30 Labs: Abnormal Lab Results - Last 24 Hours (Table) 05/10/17 05/10/17 05/11/17 Range/Units 16:21 20:44 05:45 WBC (3.8-10.6) k/uL RBC (3.80-5.40) m/uL Hgb (11.4-16.0) gm/dL Hct (34.0-46.0) % MCHC (31.0-37.0) g/dL RDW (11.5-15.5) % Chloride (98-107) mmol/L BUN (7-17) mg/dL Creatinine (0.52-1.04) mg/dL Glucose (74-99) mg/dL POC Glucose (mg/dL) 122 H 145 H 70 L (75-99) mg/dL 05/11/17 05/11/17 Range/Units 06:30 06:30 WBC 18.0 H (3.8-10.6) k/uL RBC 3.11 L (3.80-5.40) m/uL Hgb 9.4 L (11.4-16.0) gm/dL Hct 30.4 L (34.0-46.0) % MCHC 30.9 L (31.0-37.0) g/dL RDW 16.0 H (11.5-15.5) % Chloride 97 L (98-107) mmol/L BUN 31 H (7-17) mg/dL Creatinine 3.21 H (0.52-1.04) mg/dL Glucose 71 L (74-99) mg/dL POC Glucose (mg/dL) (75-99) mg/dL Microbiology - Last 24 Hours (Table) 05/06/17 15:38 Blood Culture - Preliminary Blood No Growth after 96 hours 05/06/17 15:16 Blood Culture - Preliminary Blood No Growth after 96 hours 05/07/17 14:50 Blood Culture - Preliminary Blood No Growth after 72 hours 05/07/17 13:51 Blood Culture - Preliminary Blood No Growth after 72 hours Assessment and Plan Plan: 1. Acute hypoxic respiratory failure secondary to acute on chronic diastolic heart failure, COPD exacerbation, MRSA pneumonia, possible bacteremia. Moderate aortic stenosis. Continue on BiPAP continue patient on Imdur 30 mg orally once every day, Toprol-XLl 100 mg orally once every day, IV Bumex, input and output and daily weight, cardiology consultation. Continue Vanco. Dr. Obrien is following. Pulmonary consult 2. Severe sepsis secondary to MRSA pneumonia. 3. End-stage renal disease on hemodialysis with pulmonary edema seen on chest x -ray, possible another session of hemodialysis today 4. Hypertension. Continue metoprolol 100 mg orally once every day. 5. Paroxysmal atrial fibrillation. Continue amiodarone 100 mg orally once every day, Cardizem 60 mg 3 times daily, resume eliquis. 6. Morbid obesity with BMI of 39. 7. Troponinemia -history of coronary artery disease. Acute coronary syndrome ruled out by cardiology 8. Diabetes mellitus type 2 . Continue Lantus 30 units in the morning and 40 units in the evening, discontinue scheduled NovoLog and continue sliding scale insulin. 9. GERD. Protonix. 10. Hypertension, hypertensive cardiovascular disease. Toprol-XL 100 mg orally once every day, and Imdur, Cardizem, Zetia 11. History of myocardial infarction and coronary artery disease. Continue aspirin 81 mg once every day, Toprol-XL 100 mg orally once every day, Imdur 30 mg orally once every day, Zetia 10 mg orally once every day. 12. Hyperlipidemia. 13. Diabetic peripheral neuropathy and neuropathy secondary to chronic back pain. Continue gabapentin 300 mg orally twice every day. 14. Depression, recurrent. Continue Cymbalta 60 mg orally once every day. 15. DVT prophylaxis. Eliquis and bilateral knee-high TERRIE hose. 16. GI Prophylaxis. Continue patient on PPI. 17. Full code. Discharge plan: Await assessment from physical therapy, anticipate need for subacute rehab Impression and plan of care have been directed as dictated by the signing physician. Jessenia Gonzalez nurse practitioner acting as scribe for signing physician.
[2017-05-11 11:36] LABS: Glucose,Whole Blood 116 mg/dL (75-99)
--- NOTE | 2017-05-11 12:02 | P.PN ---
Subjective Progress Note Date: 05/11/17 Principal diagnosis: Acute hypoxic respiratory failure secondary to pulmonary edema with renal failure, hypertensive heart disease, aortic stenosis. This is a 71-year-old female patient, morbidly obese along with known history of multivessel coronary artery disease and the patient has declined coronary artery bypass surgery a few years back, in addition to moderate degree of aortic stenosis, chronic atrial fibrillation, diastolic heart failure/ hypertensive heart disease, diabetes mellitus in addition to hyperlipidemia and hypertension and chronic renal failure which progressed over the past several months and the patient got started on dialysis through a permacath in her right IJ inserted approximately 3 months ago and the patient is undergoing dialysis 3 times a week Tuesdays and Saturdays and she has a pending left arm AV fistula later stage. The patient underwent her last dialysis yesterday. Over the past 24-48 hours the patient started having flulike symptoms with sore throat nasal congestion and postnasal drainage. She was seen by her primary care physician and she was given antibiotics and steroids. The patient was not getting any better and the patient came into the hospital because of worsening shortness of breath. Initial chest x-ray showed increased pulmonary vascular marking early pulmonary edema. No consolidation. No airspace disease or no pneumonias. Lactic acid level was more than 4 in the patient's white cell count was 34. The patient was started on empiric antibiotic coverage and currently is on a combination of Zosyn and Levaquin. Blood cultures still pending. BNP level is 9700. The patient was briefly placed on BiPAP and currently she is off BiPAP on 3 L of oxygen by nasal cannula. No previous history of DVT or pulmonary embolism. No previous history of obstructive sleep apnea. She is morbidly obese. No significant swelling in lower extremities at this point. On 05/06/2017 the patient is being seen in the follow-up. The patient is resting comfortably in bed. No fever or chills to she is undergoing dialysis and this is her routine dialysis day. Her white cell count is improving. She had leukocytosis at time of presentation which is improving. No fever. No chills. The dialysis catheter exit site is dry clean and intact. The blood culture has been negative thus far. The patient is covered empirically with a combination of Zosyn and Levaquin. No change in mental status. No chest pain. No other complaints otherwise. On 05/07/2017 the patient seems to be more lethargic. Her oxidation is also gotten worse. She is currently up to 10 L of oxygen by nasal cannula. She underwent hemodialysis yesterday. As such, a follow-up chest x-ray was obtained and it showed worsening right basilar airspace disease. Her white cell count is still in the low 20s. No fever or chills. She is very weak and lethargic. Antibiotics have been broadened and the patient is currently on a combination of Zosyn, Levaquin and vancomycin was also added to the regimen. The blood cultures consistent with bilateral is negative staph. No nausea. No vomiting. No altered mentation. Reevaluated today on 05/08/2016, patient remains on BiPAP, presently on 10/5 and FiO2 of 45%. Feels comfortable, patient is to receive dialysis today.feeling better breathing easier compared to how she felt on admission. Labs were reviewed hemoglobin is 8.8 WBC count is 15.6 BUN is 57 creatinine 4.09. Chest x -ray continues to show evidence of pulmonary edema and fluid overload. Patient is seen again today 05/09/2017 in follow-up on the regular medical floor. She is currently resting comfortably in bed. She is receiving dialysis again today with a goal of 3.5 L. She is currently on the BiPAP at 10/5 and 45 % FiO2. Saturations in the low 90s. She is afebrile. Hemodynamically stable. Her sputum is positive for MRSA. She is on vancomycin and Zosyn. ID is on the case. The patient is seen again today 05/10/2017 in follow-up on the selective care unit. She is awake and alert in no acute distress. She is resting quite comfortably flat in bed. She is currently on the BiPAP at 10/5 50% FiO2. She has been afebrile. She denies any worsening shortness of breath, cough or congestion. White count 17.6. Hemoglobin 8.4. Creatinine 3.30. Vancomycin 24.7. The patient is seen again today 05/11/2017 in follow-up on the selective care unit. She is awake and alert in no acute distress. She did not utilized BiPAP last night. She is maintaining good O2 saturations in the 90s on 15 L high flow nasal cannula. Follow-up blood cultures revealed no growth. He count 18.0. Hemoglobin 9.4. Bicarb 29. Creatinine 3.21. She is remaining quite weak and debilitated. Objective - Vital Signs Vital signs: Vital Signs Temp 97.4 F L 05/11/17 08:00 Pulse 72 05/11/17 10:54 Resp 18 05/11/17 04:00 BP 163/69 05/11/17 08:00 Pulse Ox 98 05/11/17 08:00 Intake & Output 05/10/17 05/11/17 05/11/17 18:59 06:59 18:59 Intake Total 340 410 120 Output Total 0 0 Balance 340 410 120 Weight 98 kg Intake: IV 10 0.9 ns @ 20 10 Oral 340 400 120 Output: Stool 0 0 Other: Voiding Method Incontinent Incontinent Incontinent # Voids 0 - Exam Physical Exam: Revealed a 71-year-old female obese, on BiPAP, in no distress while on BiPAP. HEENT:[Neck is supple.] [No neck masses.] [No thyromegaly.] [No JVD.]PERRLA, EOMI.significant crowding of the oropharynx was noted. Mallampati class IV. Chest: [Ccrackles and rhonchi were noted at the bases bilaterally. Cardiac Exam: [Normal S1 and S2, no S3 gallop, 3/6 systolic murmur thought the precordium. Abdomen: [Soft, nontender, no megaly, no rebound, no guarding, normal bowel sounds.] Extremities: [No clubbing, 1+ bipedaledema, no cyanosis.] Neurological Exam: [No focal neurologic deficit. lymphatics:No evidence ofLymphadenopathy. psychiatric: Normal mood affect and mental status examination. - Labs CBC & Chem 7: 05/11/17 06:30 05/11/17 06:30 Labs: Abnormal Lab Results - Last 24 Hours (Table) 05/10/17 05/10/17 05/11/17 Range/Units 16:21 20:44 05:45 WBC (3.8-10.6) k/uL RBC (3.80-5.40) m/uL Hgb (11.4-16.0) gm/dL Hct (34.0-46.0) % MCHC (31.0-37.0) g/dL RDW (11.5-15.5) % Chloride (98-107) mmol/L BUN (7-17) mg/dL Creatinine (0.52-1.04) mg/dL Glucose (74-99) mg/dL POC Glucose (mg/dL) 122 H 145 H 70 L (75-99) mg/dL 05/11/17 05/11/17 05/11/17 Range/Units 06:30 06:30 11:19 WBC 18.0 H (3.8-10.6) k/uL RBC 3.11 L (3.80-5.40) m/uL Hgb 9.4 L (11.4-16.0) gm/dL Hct 30.4 L (34.0-46.0) % MCHC 30.9 L (31.0-37.0) g/dL RDW 16.0 H (11.5-15.5) % Chloride 97 L (98-107) mmol/L BUN 31 H (7-17) mg/dL Creatinine 3.21 H (0.52-1.04) mg/dL Glucose 71 L (74-99) mg/dL POC Glucose (mg/dL) 116 H (75-99) mg/dL Microbiology - Last 24 Hours (Table) 05/06/17 15:38 Blood Culture - Preliminary Blood No Growth after 96 hours 05/06/17 15:16 Blood Culture - Preliminary Blood No Growth after 96 hours 05/07/17 14:50 Blood Culture - Preliminary Blood No Growth after 72 hours 05/07/17 13:51 Blood Culture - Preliminary Blood No Growth after 72 hours Assessment and Plan Assessment: 1 acute dyspnea along with a hypoxic respiratory failure. Chest x-rays consistent with increased vascular marking and fluid overload. Underlying CHF cannot be completely excluded. Contributing factors could be renal failure and the patient is known to have hypertensive heart disease and moderate degree of aortic stenosis on her echocardiogram. Her sputum is positive for MRSA and Rosario. On 05/06/2017, the patient is feeling, comfortable. No respiratory distress. No cough or sputum production. She is on broad-spectrum antibiotics. She is undergoing dialysis. No obvious source of septicemia. White cell count is improving. On 05/07/2017 the patient seems to be doing worse. She is more lethargic and septic looking. The follow-up chest x-ray shows worsening of the right lower lobe pulmonary infiltration/airspace disease. The patient has been brought in in terms of antibiotic coverage and currently she is on a combination of Zosyn, Levaquin and vancomycin. She has developed also an acute hypoxic respiratory failure and currently she is on 10 L of oxygen by nasal cannula. On 05/08/2017, slightly better compared to how she felt yesterday, remains on BiPAP with IPAP of 10 and EPAP of 5. FiO2 is 45%.chest x-ray continues to show pulmonary edema, but clinically patient feels better. On 05/09/2017 the patient is doing somewhat better. She remains on the BiPAP at the same settings. She is receiving dialysis again today. She is on vancomycin and Levaquin. She is positive for MRSA. On 05/10/2017 the patient remains quite stable. She is comfortable on the BiPAP currently 10/5 and 50% FiO2. ID remains on the case. The Zosyn has been discontinued. She is continued on vancomycin. Receiving extra dialysis today. She remains on Bumex 1 mg IVP 3 times a day. On 05/11/2017 the patient is awake and alert in no acute distress. She did not utilize BiPAP last evening. She is maintaining good O2 saturations in the 90s on 15 L high flow nasal cannula. 2 acute leukocytosis, secondary to MRSA infectious source/sepsis. Vancomycin was also added to the regimen. 3 coronary artery disease and the patient has multivessel coronary artery disease and she has declined bypass surgery in the past, troponin leak, rule out acute non-ST segment elevation myocardial infarction , under investigation with cardiology 4 chronic paroxysmal atrial fibrillation 5 hypertensive heart disease/diastolic dysfunction 6 diabetes mellitus 7 End stage renal disease currently on hemodialysis. Usually Monday. The patient has history of diabetic nephropathy. 8 morbid obesity with obvious clinical features of obstructive sleep apnea 9 hypertension 10 diabetic peripheral neuropathy 11 right bundle branch block with left anterior fascicular block 12 coagulase-negative staph in the blood, follow-up blood cultures reveal no growth. 13 Poor overall functional performance based on the above-mentioned multiple comorbidities. Plan: The patient was seen and evaluated by Dr. Fismhan. Will continue with her current treatment. Chest x-ray shows continued improvement. She will most likely need inpatient rehabilitation post discharge. We will continue to follow and make further recommendations based on her clinical status. I, the cosigning physician, have performed a history and physical examination on the patient. Lung sounds crackles in the bilateral posterior bases.. Maintaining good O2 saturations in the 90s on 15 L high flow nasal cannula. I have discussed the assessment and plan of care with my nurse practitioner, Aruna Aquino. I attest to the above note as dictated by her.
--- NOTE | 2017-05-11 14:07 | PN ---
PROGRESS NOTE Patient is seen for followup for end-stage renal disease. She has been dialyzed daily for the last 4 days. The patient will be dialyzed again today. She states she is feeling better. She had 3 L of ultrafiltration yesterday. PHYSICAL EXAMINATION: On examination today, blood pressure is 130/60, heart rate is 72 per minute. Patient is afebrile. Examination of the heart: S1, S2. Examination lungs: Bilateral breath sounds are heard. Abdomen is soft, nontender. Examination lower extremities shows no significant edema. LAB: Show sodium 138, potassium 3.7, hemoglobin 9.4 g/dL. ASSESSMENT: 1. End-stage renal disease, on hemodialysis on a Monday, , Monday schedule. Patient has been given daily dialysis for the last 4 days secondary to fluid overload. 2. Volume overload, currently improved. Chest x-ray showed improvement in aeration. 3. MRSA pneumonia maintained on vancomycin. 4. Paroxysmal atrial fibrillation. 5. Type 2 diabetes. 6. Hypertension. PLAN: Repeat hemodialysis today with goal UF of 3-3.5 L. MMODL / IJN: [id number] /
[2017-05-11 14:24] VITALS: BMI 39.5
--- NOTE | 2017-05-11 15:58 | PN ---
PROGRESS NOTE DATE OF SERVICE: 05/11/2017 REASON FOR FOLLOWUP: MRSA pneumonia. INTERVAL HISTORY: The patient is afebrile. She is breathing slightly comfortably. She did have some cough but not bringing up any sputum. No chest pain. No abdominal pain. No diarrhea. PHYSICAL EXAMINATION: Her blood pressure is 130/60 with a pulse of 67, temperature 97.4. She is 98% on high- flow oxygen. General description is an elderly female lying in bed in no distress. RESPIRATORY SYSTEM: Unlabored breathing with decreased intensity of breath sounds. No wheeze. HEART: S1, S2. Regular rate and rhythm. ABDOMEN: Soft. No tenderness. LABS: Hemoglobin 9.4, white count 18,000. BUN of 31, creatinine 3.21. DIAGNOSTIC IMPRESSION AND PLAN: Patient with methicillin-resistant Staphylococcus aeruginosa pneumonia, currently on vancomycin, Pharmacy to dose. She did have a slight jump in the white count that could be related to possible oropharyngeal candidiasis, as she did have some mini in the sputum. Nystatin swish and swallow and Diflucan will be added to the regimen. Continue with supportive care. MMODL / IJN: [id number] /
[2017-05-11 16:24] LABS: Glucose,Whole Blood 72 mg/dL (75-99)
[2017-05-11] MEDS: NYSTATIN 100,000 UNIT/ML SUSP 500,000 UNIT/5 ML CUP PO SCH ×2 (17:42→21:47)
[2017-05-11] MEDS: FLUCONAZOLE 100 MG TAB PO SCH (17:42)
[2017-05-11 20:58] LABS: Glucose,Whole Blood 179 mg/dL (75-99)
[2017-05-12 06:14] LABS: Glucose,Whole Blood 100 mg/dL (75-99)
[2017-05-12 06:26] LABS: HCT 29.2 % (34.0-46.0); HGB 9.2 gm/dL (11.4-16.0); Hypochromasia Slight; MCHC 31.6 g/dL (31.0-37.0); MCV 98.2 fL (80.0-100.0); Macrocytosis Slight; Mean Platelet Volume 8.6; Platelet Count 298 k/uL (150-450); RBC 2.97 m/uL (3.80-5.40); RDW 15.8 % (11.5-15.5)
[2017-05-12] MEDS: INSULIN ASPART 100 UNIT/ML 1 ML 10 ML VIAL SQ SCH ×4 (06:30→21:54)
[2017-05-12 06:51] LABS: Calcium 8.8 mg/dL (8.4-10.2)
[2017-05-12] MEDS: PANTOPRAZOLE 40 MG TABLET PO SCH (06:55)
[2017-05-12] MEDS: SEVELAMER 800 MG TAB PO SCH ×3 (06:55→16:50)
[2017-05-12] MEDS: IPRATROPIUM-ALBUTEROL 3 ML NEB INHALATION SCH ×4 (08:01→20:12)
[2017-05-12] MEDS ORDERED: BISACODYL 10 MG SUPP RECTAL STA (08:49)
[2017-05-12] MEDS: SENNOSIDES-DOCUSATE SODIUM 1 EACH TAB PO SCH ×2 (10:05→20:56)
[2017-05-12] MEDS: MAGNESIUM OXIDE 400 MG TAB PO SCH (10:05)
[2017-05-12] MEDS: NYSTATIN 100,000 UNIT/ML SUSP 500,000 UNIT/5 ML CUP PO SCH ×4 (10:05→21:53)
[2017-05-12] MEDS: AMIODARONE 100 MG TAB PO SCH (10:05)
[2017-05-12] MEDS: DULoxetine HCL 60 MG CAPSULE.DR PO SCH (10:05)
[2017-05-12] MEDS: GABAPENTIN 300 MG CAP PO SCH ×2 (10:05→20:56)
[2017-05-12] MEDS: EZETIMIBE 10 MG TAB PO SCH (10:05)
[2017-05-12] MEDS: METOPROLOL SUCCINATE (ER) 100 MG TAB.ER.24H PO SCH (10:06)
[2017-05-12] MEDS: FERROUS SULFATE 325 MG TAB PO SCH (10:06)
[2017-05-12] MEDS: APIXABAN 2.5 MG TABLET PO SCH ×2 (10:06→20:56)
[2017-05-12] MEDS: BUMETANIDE 0.25 MG/ML 4 ML VIAL IVP SCH ×3 (10:06→21:53)
[2017-05-12] MEDS: ASPIRIN 81 MG PO SCH (10:06)
[2017-05-12] MEDS: ISOSORBIDE MONONITRATE ER 30 MG TAB.ER.24H PO SCH (10:06)
[2017-05-12] MEDS: DILTIAZEM ORAL 60 MG TAB PO SCH ×3 (10:06→21:54)
[2017-05-12] MEDS: FLUCONAZOLE 100 MG TAB PO SCH (10:07)
[2017-05-12] MEDS: SODIUM CHLORIDE 0.9% 1,000 ML IV SCH (10:08)
[2017-05-12] MEDS: INSULIN DETEMIR 100 UNIT/ML 10 ML VIAL SQ SCH ×2 (10:21→21:54)
--- NOTE | 2017-05-12 10:28 | P.PN ---
Subjective Progress Note Date: 05/12/17 This is a 71-year-old female patient of Dr. Garcia with past medical history of atrial fibrillation, coronary artery disease status post myocardial infarction, has history of triple-vessel disease but was considered high risk for bypass, on conservative treatment,chronic diastolic heart failure , diabetes mellitus type 2, hyperlipidemia, hypertension, end-stage renal disease on hemodialysis, peripheral neuropathy.patient was recently hospitalized at [facility] in with significant shortness of breath, she was suggestive of pulmonary edema with acute kidney injury on CK D4 in the December 2016 patient was initiated on hemodialysis. Patient is doing well until 6 days ago when she started having flulike symptoms associated with postnasal drip and cough. She did see Dr. Garcia 2 days ago and was prescribed antibiotics with steroids, patient was unable to get the prescription for albuterol and was using an prescription. With no improvement of symptoms. Since she was very short of breath yesterday along with palpitations she decided to come to the ER. She has been afebrile since admission, tachycardic from 100-102 blood pressure is stable in 136/65 retreat of 28 on admission patient was desaturating to the 78 on room air and was placed on BiPAP, chest x-ray suggestive of pulmonary edema. No consolidation or atelectasis present. Lactic acid was greater than 4 on admission and improved to 1.8 on repeat checking. No fluid boluses was given because patient is in end-stage renal disease. Labs including a CBC is 34.2, hemoglobin 11.4 MCV 101, INR 1.1, BNP suggestive of creatinine at 2.84. BUN of 24. Troponin elevated 0.47. ProBNP 9700. Patient was initiated on levofloxacin and Zosyn. Pulmonary, cardiology and nephrology consult placed for acute hypoxic respiratory failure, increase troponin anemia and CHF exacerbation and possible dialysis today for pulmonary edema. 05/06: patient continued to be lethargic no major events reported by nursing staff patient is alert and oriented following commands denying chest pain shortness breath nausea vomiting abdominal pain dizziness or lightheadedness 05/07:Patient continued to be hemodynamically stable seems to be responding after switching to BiPAP by pulmonary. Patient is not responding at this point to Lasix as she is not having any improvement in her urine output and nursing staff asked if that's can be switched to different medication. Patient is denying chest pain nausea vomiting dizziness lightheadedness or blurry vision seems to be oriented and following commands. Patient's baseline that she is bedbound at home and stated that she is extremely weak at this point 05/08: Repeat chest x-ray shows findings could represent pulmonary edema, pneumonia, correlate. Consult with Dr. Obrien has been added with recommendations for blood cultures from the port and continue vancomycin and Zosyn. Patient has been afebrile. Pulse ox is 95% on BiPAP. White count has dropped to 15.6. Hemoglobin today is 8.8. Initial blood culture is positive for coag-negative staph and repeats obtained on May 06 are showing no growth at 24 hours. Sputum culture is in progress and urine culture has been finalized with no growth at 18 hours. Daughter is at the bedside. Patient complains of weakness, less shortness of breath. No appetite. She only ate few bites of oatmeal this morning. She is wheelchair bound. Patient continues to have fluid retention. 05/09: Patient is scheduled for dialysis today. She is normally Monday schedule. She is continued on IV Bumex 1 mg 3 times daily and cardiology increase Cardizem to 60 mg 3 times daily. Repeat blood cultures are all showing no growth at 48 or 24 hours. Sputum culture is presumptive staph aureus. Patient has been afebrile. Patient has been on BiPAP with pulse ox of 90% but has dropped to 79% on nasal cannula when this in place for patient to eat. Oral intake is down for which scheduled NovoLog will be discontinued and Levemir dose adjusted. Patient could benefit from CAT scan once she is stable. Eliquis will be resumed. 05/10: Patient has been on BiPAP or nasal cannula at 15 L and pulse oxing 91-93% . White count is at 17 and hemoglobin 8.4. Her blood glucose running between 73 and 217 with changes made yesterday to insulins. Sputum cultures positive for MRSA. Dr. Obrien has discontinued Zosyn and continued vancomycin. Patient to have repeat dialysis today. Patient has not had a bowel movement since admission and Colace changed to Senokot scheduled. 05/11: Dr. Obrien has recommended vancomycin for 2 weeks. Cardiology is following on an as-needed basis only. Her heart rate is currently controlled and she has been afebrile. She is currently on high flow nasal cannula at 15 L pulse oxing 93-98%. Breathing status is improving. Patient continues of constipation for which one dose of MiraLAX added. She may be able to participate with physical therapy today. 05/12: Patient is now on O2 nasal cannula at 10 L and pulse oxing 95-99%. She has been up to the side of the bed with physical therapy. She does complain of shortness of breath with minimal activity. She ate oatmeal muffin for breakfast she denies any abdominal pain but still has not had a bowel movement and Dulcolax suppository added. She is scheduled for hemodialysis tomorrow. Goal will be for oxygen at 6 L nasal cannula for discharge. Anticipate need for subacute rehab. Probable discharge on Monday. Objective - Vital Signs Vital signs: Vital Signs Temp 97.8 F 05/12/17 04:00 Pulse 76 05/12/17 08:17 Resp 18 05/12/17 04:00 BP 161/70 05/12/17 04:00 Pulse Ox 99 05/12/17 08:04 Intake & Output 05/11/17 05/12/17 05/12/17 18:59 06:59 18:59 Intake Total 360 Output Total 1 1 Balance 359 -1 Weight 98 kg 97 kg Intake: Oral 360 Output: Stool 1 1 Other: Voiding Method Incontinent Incontinent # Voids 2 - Exam General appearance: cooperative minimal distress on N/C, obese - EENT Eyes: anicteric sclerae, PERRLA, normal appearance ENT: hearing grossly normal - Neck Neck: no lymphadenopathy, normal ROM, no other, no rigidity, no stridor, no thyromegaly - Respiratory Respiratory: bilateral: Diminished air entry bilaterally with crackles heard at the bases, and very decreased air movement in the left lower lobe - Cardiovascular Rhythm: The cardiac Heart sounds: normal: S1, S2 Abnormal Heart Sounds: no systolic murmur, no diastolic murmur, no rub and no lower extremity edema - Gastrointestinal General gastrointestinal: normal bowel sounds, soft - Integumentary Integumentary: no rash - Neurologic Neurologic: CNII-XII intact - Musculoskeletal Musculoskeletal: strength equal bilaterally - Psychiatric Psychiatric: A&O x's 3, appropriate affect - Labs CBC & Chem 7: 05/12/17 05:29 05/12/17 05:29 Labs: Abnormal Lab Results - Last 24 Hours (Table) 05/11/17 05/11/17 05/11/17 Range/Units 11:19 16:23 20:54 WBC (3.8-10.6) k/uL RBC (3.80-5.40) m/uL Hgb (11.4-16.0) gm/dL Hct (34.0-46.0) % RDW (11.5-15.5) % BUN (7-17) mg/dL Creatinine (0.52-1.04) mg/dL POC Glucose (mg/dL) 116 H 72 L 179 H (75-99) mg/dL 05/12/17 05/12/17 05/12/17 Range/Units 05:29 05:29 06:10 WBC 16.0 H (3.8-10.6) k/uL RBC 2.97 L (3.80-5.40) m/uL Hgb 9.2 L (11.4-16.0) gm/dL Hct 29.2 L (34.0-46.0) % RDW 15.8 H (11.5-15.5) % BUN 25 H (7-17) mg/dL Creatinine 3.22 H (0.52-1.04) mg/dL POC Glucose (mg/dL) 100 H (75-99) mg/dL Microbiology - Last 24 Hours (Table) 05/06/17 15:38 Blood Culture - Preliminary Blood No Growth after 120 hours 05/06/17 15:16 Blood Culture - Preliminary Blood No Growth after 120 hours 05/07/17 14:50 Blood Culture - Preliminary Blood No Growth after 96 hours 05/07/17 13:51 Blood Culture - Preliminary Blood No Growth after 96 hours Assessment and Plan Plan: 1. Acute hypoxic respiratory failure secondary to acute on chronic diastolic heart failure, COPD exacerbation, MRSA pneumonia, possible bacteremia ruled out. Moderate aortic stenosis. Continue on BiPAP or nasal cannula continue patient on Imdur 30 mg orally once every day, Toprol-XLl 100 mg orally once every day, IV Bumex, input and output and daily weight, cardiology consultation. Continue Vanco. Dr. Obrien is following. Pulmonary consult 2. Severe sepsis secondary to MRSA pneumonia. 3. End-stage renal disease on hemodialysis with pulmonary edema seen on chest x -ray, possible another session of hemodialysis today 4. Hypertension. Continue metoprolol 100 mg orally once every day. 5. Paroxysmal atrial fibrillation. Continue amiodarone 100 mg orally once every day, Cardizem 60 mg 3 times daily, resume eliquis. 6. Morbid obesity with BMI of 39. 7. Troponinemia -history of coronary artery disease. Acute coronary syndrome ruled out by cardiology 8. Diabetes mellitus type 2 . Continue Lantus 30 units in the morning and 40 units in the evening, discontinue scheduled NovoLog and continue sliding scale insulin. 9. GERD. Protonix. 10. Hypertension, hypertensive cardiovascular disease. Toprol-XL 100 mg orally once every day, and Imdur, Cardizem, Zetia 11. History of myocardial infarction and coronary artery disease. Continue aspirin 81 mg once every day, Toprol-XL 100 mg orally once every day, Imdur 30 mg orally once every day, Zetia 10 mg orally once every day. 12. Hyperlipidemia. 13. Diabetic peripheral neuropathy and neuropathy secondary to chronic back pain. Continue gabapentin 300 mg orally twice every day. 14. Depression, recurrent. Continue Cymbalta 60 mg orally once every day. 15. DVT prophylaxis. Eliquis and bilateral knee-high TERRIE hose. 16. GI Prophylaxis. Continue patient on PPI. 17. Full code. 18. Thrush. Nystatin. Discharge plan: anticipate need for subacute rehab Impression and plan of care have been directed as dictated by the signing physician. Jessenia Gonzalez nurse practitioner acting as scribe for signing physician.
--- NOTE | 2017-05-12 11:52 | P.PN ---
Subjective Progress Note Date: 05/12/17 Principal diagnosis: acute hypoxic respiratory failure secondary to pulmonary edema with renal failure, hypertensive heart disease, and aortic stenosis. This is a 71-year-old female patient, morbidly obese along with known history of multivessel coronary artery disease and the patient has declined coronary artery bypass surgery a few years back, in addition to moderate degree of aortic stenosis, chronic atrial fibrillation, diastolic heart failure/ hypertensive heart disease, diabetes mellitus in addition to hyperlipidemia and hypertension and chronic renal failure which progressed over the past several months and the patient got started on dialysis through a permacath in her right IJ inserted approximately 3 months ago and the patient is undergoing dialysis 3 times a week Tuesdays and Saturdays and she has a pending left arm AV fistula later stage. The patient underwent her last dialysis yesterday. Over the past 24-48 hours the patient started having flulike symptoms with sore throat nasal congestion and postnasal drainage. She was seen by her primary care physician and she was given antibiotics and steroids. The patient was not getting any better and the patient came into the hospital because of worsening shortness of breath. Initial chest x-ray showed increased pulmonary vascular marking early pulmonary edema. No consolidation. No airspace disease or no pneumonias. Lactic acid level was more than 4 in the patient's white cell count was 34. The patient was started on empiric antibiotic coverage and currently is on a combination of Zosyn and Levaquin. Blood cultures still pending. BNP level is 9700. The patient was briefly placed on BiPAP and currently she is off BiPAP on 3 L of oxygen by nasal cannula. No previous history of DVT or pulmonary embolism. No previous history of obstructive sleep apnea. She is morbidly obese. No significant swelling in lower extremities at this point. On 05/06/2017 the patient is being seen in the follow-up. The patient is resting comfortably in bed. No fever or chills to she is undergoing dialysis and this is her routine dialysis day. Her white cell count is improving. She had leukocytosis at time of presentation which is improving. No fever. No chills. The dialysis catheter exit site is dry clean and intact. The blood culture has been negative thus far. The patient is covered empirically with a combination of Zosyn and Levaquin. No change in mental status. No chest pain. No other complaints otherwise. On 05/07/2017 the patient seems to be more lethargic. Her oxidation is also gotten worse. She is currently up to 10 L of oxygen by nasal cannula. She underwent hemodialysis yesterday. As such, a follow-up chest x-ray was obtained and it showed worsening right basilar airspace disease. Her white cell count is still in the low 20s. No fever or chills. She is very weak and lethargic. Antibiotics have been broadened and the patient is currently on a combination of Zosyn, Levaquin and vancomycin was also added to the regimen. The blood cultures consistent with bilateral is negative staph. No nausea. No vomiting. No altered mentation. Reevaluated today on 05/08/2016, patient remains on BiPAP, presently on 10/5 and FiO2 of 45%. Feels comfortable, patient is to receive dialysis today.feeling better breathing easier compared to how she felt on admission. Labs were reviewed hemoglobin is 8.8 WBC count is 15.6 BUN is 57 creatinine 4.09. Chest x -ray continues to show evidence of pulmonary edema and fluid overload. Patient is seen again today 05/09/2017 in follow-up on the regular medical floor. She is currently resting comfortably in bed. She is receiving dialysis again today with a goal of 3.5 L. She is currently on the BiPAP at 10/5 and 45 % FiO2. Saturations in the low 90s. She is afebrile. Hemodynamically stable. Her sputum is positive for MRSA. She is on vancomycin and Zosyn. ID is on the case. The patient is seen again today 05/10/2017 in follow-up on the selective care unit. She is awake and alert in no acute distress. She is resting quite comfortably flat in bed. She is currently on the BiPAP at 10/5 50% FiO2. She has been afebrile. She denies any worsening shortness of breath, cough or congestion. White count 17.6. Hemoglobin 8.4. Creatinine 3.30. Vancomycin 24.7. The patient is seen again today 05/11/2017 in follow-up on the selective care unit. She is awake and alert in no acute distress. She did not utilized BiPAP last night. She is maintaining good O2 saturations in the 90s on 15 L high flow nasal cannula. Follow-up blood cultures revealed no growth. He count 18.0. Hemoglobin 9.4. Bicarb 29. Creatinine 3.21. She is remaining quite weak and debilitated. Reevaluated today on 05/12/2017, doing much better, her last chest x-ray showed significant improvement in her fluid overload, and the patient was dialyzed last yesterday. No plans for dialysis or ultrafiltration today. Presently on nasal cannula, high flow, but she is doing much better compared to how she was upon admission.labs were reviewed hemoglobin is 9.2 WBC count is 16.0 electrolytes are normal BUN is 25 creatinine is 3.22. Objective - Vital Signs Vital signs: Vital Signs Temp 97.3 F L 05/12/17 08:00 Pulse 76 05/12/17 08:17 Resp 18 05/12/17 08:00 BP 148/65 05/12/17 08:00 Pulse Ox 99 05/12/17 08:04 Intake & Output 05/11/17 05/12/17 05/12/17 18:59 06:59 18:59 Intake Total 360 240 Output Total 1 1 Balance 359 -1 240 Weight 98 kg 97 kg Intake: Oral 360 240 Output: Stool 1 1 Other: Voiding Method Incontinent Incontinent # Voids 2 - Exam Physical Exam: Revealed a 71-year-old female obese, on BiPAP, in no distress while on BiPAP. HEENT:[Neck is supple.] [No neck masses.] [No thyromegaly.] [No JVD.]PERRLA, EOMI.significant crowding of the oropharynx was noted. Mallampati class IV. Chest: [Ccrackles and rhonchi were noted at the bases bilaterally. Cardiac Exam: [Normal S1 and S2, no S3 gallop, 3/6 systolic murmur thought the precordium. Abdomen: [Soft, nontender, no megaly, no rebound, no guarding, normal bowel sounds.] Extremities: [No clubbing, 1+ bipedaledema, no cyanosis.] Neurological Exam: [No focal neurologic deficit. lymphatics:No evidence ofLymphadenopathy. psychiatric: Normal mood affect and mental status examination. - Labs CBC & Chem 7: 05/12/17 05:29 05/12/17 05:29 Labs: Abnormal Lab Results - Last 24 Hours (Table) 05/11/17 05/11/17 05/12/17 Range/Units 16:23 20:54 05:29 WBC 16.0 H (3.8-10.6) k/uL RBC 2.97 L (3.80-5.40) m/uL Hgb 9.2 L (11.4-16.0) gm/dL Hct 29.2 L (34.0-46.0) % RDW 15.8 H (11.5-15.5) % BUN (7-17) mg/dL Creatinine (0.52-1.04) mg/dL POC Glucose (mg/dL) 72 L 179 H (75-99) mg/dL 05/12/17 05/12/17 Range/Units 05:29 06:10 WBC (3.8-10.6) k/uL RBC (3.80-5.40) m/uL Hgb (11.4-16.0) gm/dL Hct (34.0-46.0) % RDW (11.5-15.5) % BUN 25 H (7-17) mg/dL Creatinine 3.22 H (0.52-1.04) mg/dL POC Glucose (mg/dL) 100 H (75-99) mg/dL Microbiology - Last 24 Hours (Table) 05/06/17 15:38 Blood Culture - Preliminary Blood No Growth after 120 hours 05/06/17 15:16 Blood Culture - Preliminary Blood No Growth after 120 hours 05/07/17 14:50 Blood Culture - Preliminary Blood No Growth after 96 hours 05/07/17 13:51 Blood Culture - Preliminary Blood No Growth after 96 hours Assessment and Plan Assessment: 1 acute dyspnea along with a hypoxic respiratory failure. Chest x-rays consistent with increased vascular marking and fluid overload. Underlying CHF cannot be completely excluded. Contributing factors could be renal failure and the patient is known to have hypertensive heart disease and moderate degree of aortic stenosis on her echocardiogram. Her sputum is positive for MRSA and Rosario. On 05/06/2017, the patient is feeling, comfortable. No respiratory distress. No cough or sputum production. She is on broad-spectrum antibiotics. She is undergoing dialysis. No obvious source of septicemia. White cell count is improving. On 05/07/2017 the patient seems to be doing worse. She is more lethargic and septic looking. The follow-up chest x-ray shows worsening of the right lower lobe pulmonary infiltration/airspace disease. The patient has been brought in in terms of antibiotic coverage and currently she is on a combination of Zosyn, Levaquin and vancomycin. She has developed also an acute hypoxic respiratory failure and currently she is on 10 L of oxygen by nasal cannula. On 05/08/2017, slightly better compared to how she felt yesterday, remains on BiPAP with IPAP of 10 and EPAP of 5. FiO2 is 45%.chest x-ray continues to show pulmonary edema, but clinically patient feels better. On 05/09/2017 the patient is doing somewhat better. She remains on the BiPAP at the same settings. She is receiving dialysis again today. She is on vancomycin and Levaquin. She is positive for MRSA. On 05/10/2017 the patient remains quite stable. She is comfortable on the BiPAP currently 10/5 and 50% FiO2. ID remains on the case. The Zosyn has been discontinued. She is continued on vancomycin. Receiving extra dialysis today. She remains on Bumex 1 mg IVP 3 times a day. On 05/11/2017 the patient is awake and alert in no acute distress. She did not utilize BiPAP last evening. She is maintaining good O2 saturations in the 90s on 15 L high flow nasal cannula. On 05/12/2017, patient seems to be doing better, her last chest x-ray showed significant improvement in the fluid status, no plans at least at this point for dialysis or ultrafiltration today, but she would be likely dialyze over the weekend. 2 acute leukocytosis, secondary to MRSA infectious source/sepsis. Vancomycin was also added to the regimen. 3 coronary artery disease and the patient has multivessel coronary artery disease and she has declined bypass surgery in the past, troponin leak, rule out acute non-ST segment elevation myocardial infarction , under investigation with cardiology 4 chronic paroxysmal atrial fibrillation 5 hypertensive heart disease/diastolic dysfunction 6 diabetes mellitus 7 End stage renal disease currently on hemodialysis. Usually Monday. The patient has history of diabetic nephropathy. 8 morbid obesity with obvious clinical features of obstructive sleep apnea 9 hypertension 10 diabetic peripheral neuropathy 11 right bundle branch block with left anterior fascicular block 12 coagulase-negative staph in the blood, follow-up blood cultures reveal no growth. 13 Poor overall functional performance based on the above-mentioned multiple comorbidities. Recommendation: Continue present supportive care measures, consider discharge to rehab once cleared by nephrology. Time with Patient: Less than 30
[2017-05-12 12:04] LABS: Glucose,Whole Blood 200 mg/dL (75-99)
--- NOTE | 2017-05-12 15:08 | PN ---
PROGRESS NOTE Patient is seen for followup for end-stage renal disease. She is currently feeling much better after treatment for fluid overload with daily dialysis. She is scheduled for hemodialysis tomorrow. EXAMINATION: Blood pressure is 149/65, heart rate 76 per minute. She is afebrile. Examination of the heart, S1, S2. Examination of the lungs, decreased breath sounds at the bases. Abdomen is soft, nontender. Examination of the lower extremity shows no significant edema. LABS: Show hemoglobin 9.2 g/dL, potassium 4.0, calcium 8.8. ASSESSMENT: 1. End-stage renal disease, on hemodialysis on a Monday, , Monday schedule. 2. Fluid overload, status post daily dialysis with significant improvement in volume status. 3. Respiratory failure. Patient was on BiPAP and she is currently significantly improved with improvement in the chest x-ray as well. 4. Anemia of chronic disease. Will maintain patient on Aranesp. 5. CKD mineral bone disorder, maintained on Renvela. 6. Chronic atrial fibrillation maintained on amiodarone, controlled ventricular response. PLAN: Hemodialysis in a.m. with UF of about 3 to 3.5 L as tolerated. MMODL / IJN: [id number] /
[2017-05-12 16:37] LABS: Glucose,Whole Blood 188 mg/dL (75-99)
[2017-05-12 21:37] LABS: Glucose,Whole Blood 198 mg/dL (75-99)
--- NOTE | 2017-05-12 21:56 | PN ---
PROGRESS NOTE DATE OF SERVICE: 05/12/2016. REASON FOR FOLLOWUP: MRSA pneumonia. INTERVAL HISTORY: The patient is afebrile. Her breathing has slightly improved. She did have some cough, but less productive now. No chest pain. No abdominal pain and no diarrhea. EXAMINATION: Her blood pressure is 111/47 with a pulse of 61, temperature of 97.6. She is 100% on 10L nasal cannula. General description is a elderly female lying in bed in no distress. RESPIRATORY SYSTEM: Unlabored breathing. Some decreased breath sounds in the bases. No wheeze. HEART: S1, S2. Regular rate and rhythm. ABDOMEN: Soft. No tenderness. Labs are hemoglobin 9.2, white count 16,000 with a BUN of 25, creatinine 3.22. DIAGNOSTIC IMPRESSION AND PLAN: 1. Patient with methicillin-resistant Staphylococcus aureus pneumonia, also with a coagulase-negative Staphylococcus positive blood culture, though repeat has been negative. The patient is currently on vancomycin. That will be continued for at least 2 weeks, should be done through dialysis so we avoid PICC line placement. 2. Patient with an elevated white count and possible oropharyngeal candidiasis. The white improving addition of Diflucan. That should continued for the same duration. Continue supportive care. MMODL / IJN: [id number] /
[2017-05-13 02:03] LABS: Glucose,Whole Blood 108 mg/dL (75-99)
[2017-05-13 05:58] LABS: Glucose,Whole Blood 99 mg/dL (75-99)
[2017-05-13] MEDS: INSULIN ASPART 100 UNIT/ML 1 ML 10 ML VIAL SQ SCH ×4 (06:31→21:13)
[2017-05-13] MEDS: SODIUM CHLORIDE 0.9% 1,000 ML IV SCH (06:32)
[2017-05-13 06:58] LABS: HGB 8.7 gm/dL (11.4-16.0); Hypochromasia Moderate; MCH 29.2 pg (25.0-35.0); MCV 97.4 fL (80.0-100.0); Mean Platelet Volume 8.3; Platelet Count 332 k/uL (150-450); RBC 2.97 m/uL (3.80-5.40); RDW 15.5 % (11.5-15.5); WBC 16.4 k/uL (3.8-10.6)
[2017-05-13 07:12] LABS: Calcium 8.8 mg/dL (8.4-10.2); Potassium 4.3 mmol/L (3.5-5.1)
[2017-05-13 07:17] LABS: Vancomycin,Random 21.5 ug/mL
[2017-05-13] MEDS: SEVELAMER 800 MG TAB PO SCH ×3 (08:37→17:06)
[2017-05-13] MEDS: PANTOPRAZOLE 40 MG TABLET PO SCH (08:37)
[2017-05-13] MEDS: APIXABAN 2.5 MG TABLET PO SCH ×2 (08:38→20:52)
[2017-05-13] MEDS: AMIODARONE 100 MG TAB PO SCH (08:38)
[2017-05-13] MEDS: EZETIMIBE 10 MG TAB PO SCH (08:39)
[2017-05-13] MEDS: ASPIRIN 81 MG PO SCH (08:39)
[2017-05-13] MEDS: DILTIAZEM ORAL 60 MG TAB PO SCH ×3 (08:39→20:53)
[2017-05-13] MEDS: BUMETANIDE 0.25 MG/ML 4 ML VIAL IVP SCH ×3 (08:39→20:53)
[2017-05-13] MEDS: DULoxetine HCL 60 MG CAPSULE.DR PO SCH (08:39)
[2017-05-13] MEDS: IPRATROPIUM-ALBUTEROL 3 ML NEB INHALATION SCH ×4 (08:49→20:18)
[2017-05-13] MEDS: FERROUS SULFATE 325 MG TAB PO SCH (08:54)
[2017-05-13] MEDS: NYSTATIN 100,000 UNIT/ML SUSP 500,000 UNIT/5 ML CUP PO SCH ×4 (08:55→20:53)
[2017-05-13] MEDS: MAGNESIUM OXIDE 400 MG TAB PO SCH (08:55)
[2017-05-13] MEDS: FLUCONAZOLE 100 MG TAB PO SCH (08:55)
[2017-05-13] MEDS: METOPROLOL SUCCINATE (ER) 100 MG TAB.ER.24H PO SCH (08:55)
[2017-05-13] MEDS: GABAPENTIN 300 MG CAP PO SCH ×2 (08:55→20:52)
[2017-05-13] MEDS: ISOSORBIDE MONONITRATE ER 30 MG TAB.ER.24H PO SCH (08:55)
[2017-05-13] MEDS: SENNOSIDES-DOCUSATE SODIUM 1 EACH TAB PO SCH ×2 (08:56→20:52)
[2017-05-13] MEDS: INSULIN DETEMIR 100 UNIT/ML 10 ML VIAL SQ SCH ×2 (08:58→21:13)
[2017-05-13] MEDS ORDERED: VANCOMYCIN 1,500 MG in SODIUM CHLORIDE 0.9% 250 ML IVPB ONE (09:00)
--- NOTE | 2017-05-13 09:04 | P.PN ---
Subjective Progress Note Date: 05/13/17 Principal diagnosis: this 71-year-old female known to us with ESRD is admitted with congestive hear she was last dialyzed the day before yesterday with 3.5 L ultrafiltration which she tolerated very well. she continues to have shortness of breath as of this morning. No chest pain fever chills. No nausea vomiting diarrhea but poor appetite. she remains bedridden as before. She is known with being bedridden for several months 2 years now, coronary artery disease chronic atrial fibrillation and chronic heart failure and diabetes. Objective - Vital Signs Vital signs: Vital Signs Temp 96.9 F L 05/13/17 04:00 Pulse 74 05/13/17 04:00 Resp 19 05/13/17 04:00 BP 175/75 05/13/17 04:00 Pulse Ox 93 L 05/13/17 04:00 Intake & Output 05/12/17 05/13/17 05/13/17 18:59 06:59 18:59 Intake Total 315 250 Output Total 1 5 Balance 314 245 Weight 98 kg Intake: Oral 315 250 Output: Urine 0 Stool 1 5 Other: Voiding Method Incontinent # Voids 0 0 # Bowel Movements 1 on examination she is awake alert oriented HEENT exam no JVP neck is supple no facial asymmetry Lungs are significant for bilateral fine crackles at bases no dullness percussion fairly restricted air entry bilaterally. heart sounds are unremarkable for any murmur rub gallop Abdomen is obese nontender no masses felt Extremity exam reveals no edema she has central obesity Neurologically awake alert oriented but family could not even sit up even with help. no focal motor deficit. - Labs CBC & Chem 7: 05/13/17 06:02 05/13/17 06:02 Labs: Abnormal Lab Results - Last 24 Hours (Table) 05/12/17 05/12/17 05/12/17 Range/Units 11:43 16:35 21:23 WBC (3.8-10.6) k/uL RBC (3.80-5.40) m/uL Hgb (11.4-16.0) gm/dL Hct (34.0-46.0) % MCHC (31.0-37.0) g/dL Sodium (137-145) mmol/L BUN (7-17) mg/dL Creatinine (0.52-1.04) mg/dL POC Glucose (mg/dL) 200 H 188 H 198 H (75-99) mg/dL 05/13/17 05/13/17 05/13/17 Range/Units 01:59 06:02 06:02 WBC 16.4 H (3.8-10.6) k/uL RBC 2.97 L (3.80-5.40) m/uL Hgb 8.7 L (11.4-16.0) gm/dL Hct 29.0 L (34.0-46.0) % MCHC 30.0 L (31.0-37.0) g/dL Sodium 135 L (137-145) mmol/L BUN 42 H (7-17) mg/dL Creatinine 4.40 H (0.52-1.04) mg/dL POC Glucose (mg/dL) 108 H (75-99) mg/dL Microbiology - Last 24 Hours (Table) 05/06/17 15:38 Blood Culture - Final Blood No Growth after 144 hours 05/06/17 15:16 Blood Culture - Final Blood No Growth after 144 hours 05/07/17 14:50 Blood Culture - Preliminary Blood No Growth after 120 hours 05/07/17 13:51 Blood Culture - Preliminary Blood No Growth after 120 hours Assessment and Plan Assessment: impression 1. ESRD on dialysis currently on a Monday schedule. Last dialysis day before yesterday with 3.5 L ultrafiltration. 2. Congestive heart failure. 3. Diabetes mellitus 4. Chronically bedridden. 5. coronary artery disease with history of declining bypass surgery in the past. 6.Chronic paroxysmal atrial fibrillation. 7. hemoglobin 8.7 , anemia off ESRD , worsening. Recommendation. 1. we will dialyze her today and Take off about 4 L over 4 hours. 2. maintain hemoglobin calcium phosphorus. 3 maintain nutritional support. 4. Check iron saturation.
[2017-05-13 11:37] LABS: Glucose,Whole Blood 188 mg/dL (75-99)
--- NOTE | 2017-05-13 11:41 | P.PN ---
Subjective Progress Note Date: 05/13/17 This is a 71-year-old female patient of Dr. Garcia with past medical history of atrial fibrillation, coronary artery disease status post myocardial infarction, has history of triple-vessel disease but was considered high risk for bypass, on conservative treatment,chronic diastolic heart failure , diabetes mellitus type 2, hyperlipidemia, hypertension, end-stage renal disease on hemodialysis, peripheral neuropathy.patient was recently hospitalized at [facility] in with significant shortness of breath, she was suggestive of pulmonary edema with acute kidney injury on CK D4 in the December 2016 patient was initiated on hemodialysis. Patient is doing well until 6 days ago when she started having flulike symptoms associated with postnasal drip and cough. She did see Dr. Garcia 2 days ago and was prescribed antibiotics with steroids, patient was unable to get the prescription for albuterol and was using an prescription. With no improvement of symptoms. Since she was very short of breath yesterday along with palpitations she decided to come to the ER. She has been afebrile since admission, tachycardic from 100-102 blood pressure is stable in 136/65 retreat of 28 on admission patient was desaturating to the 78 on room air and was placed on BiPAP, chest x-ray suggestive of pulmonary edema. No consolidation or atelectasis present. Lactic acid was greater than 4 on admission and improved to 1.8 on repeat checking. No fluid boluses was given because patient is in end-stage renal disease. Labs including a CBC is 34.2, hemoglobin 11.4 MCV 101, INR 1.1, BNP suggestive of creatinine at 2.84. BUN of 24. Troponin elevated 0.47. ProBNP 9700. Patient was initiated on levofloxacin and Zosyn. Pulmonary, cardiology and nephrology consult placed for acute hypoxic respiratory failure, increase troponin anemia and CHF exacerbation and possible dialysis today for pulmonary edema. 05/06: patient continued to be lethargic no major events reported by nursing staff patient is alert and oriented following commands denying chest pain shortness breath nausea vomiting abdominal pain dizziness or lightheadedness 05/07:Patient continued to be hemodynamically stable seems to be responding after switching to BiPAP by pulmonary. Patient is not responding at this point to Lasix as she is not having any improvement in her urine output and nursing staff asked if that's can be switched to different medication. Patient is denying chest pain nausea vomiting dizziness lightheadedness or blurry vision seems to be oriented and following commands. Patient's baseline that she is bedbound at home and stated that she is extremely weak at this point 05/08: Repeat chest x-ray shows findings could represent pulmonary edema, pneumonia, correlate. Consult with Dr. Obrien has been added with recommendations for blood cultures from the port and continue vancomycin and Zosyn. Patient has been afebrile. Pulse ox is 95% on BiPAP. White count has dropped to 15.6. Hemoglobin today is 8.8. Initial blood culture is positive for coag-negative staph and repeats obtained on May 06 are showing no growth at 24 hours. Sputum culture is in progress and urine culture has been finalized with no growth at 18 hours. Daughter is at the bedside. Patient complains of weakness, less shortness of breath. No appetite. She only ate few bites of oatmeal this morning. She is wheelchair bound. Patient continues to have fluid retention. 05/09: Patient is scheduled for dialysis today. She is normally Monday schedule. She is continued on IV Bumex 1 mg 3 times daily and cardiology increase Cardizem to 60 mg 3 times daily. Repeat blood cultures are all showing no growth at 48 or 24 hours. Sputum culture is presumptive staph aureus. Patient has been afebrile. Patient has been on BiPAP with pulse ox of 90% but has dropped to 79% on nasal cannula when this in place for patient to eat. Oral intake is down for which scheduled NovoLog will be discontinued and Levemir dose adjusted. Patient could benefit from CAT scan once she is stable. Eliquis will be resumed. 05/10: Patient has been on BiPAP or nasal cannula at 15 L and pulse oxing 91-93% . White count is at 17 and hemoglobin 8.4. Her blood glucose running between 73 and 217 with changes made yesterday to insulins. Sputum cultures positive for MRSA. Dr. Obrien has discontinued Zosyn and continued vancomycin. Patient to have repeat dialysis today. Patient has not had a bowel movement since admission and Colace changed to Senokot scheduled. 05/11: Dr. Obrien has recommended vancomycin for 2 weeks. Cardiology is following on an as-needed basis only. Her heart rate is currently controlled and she has been afebrile. She is currently on high flow nasal cannula at 15 L pulse oxing 93-98%. Breathing status is improving. Patient continues of constipation for which one dose of MiraLAX added. She may be able to participate with physical therapy today. 05/12: Patient is now on O2 nasal cannula at 10 L and pulse oxing 95-99%. She has been up to the side of the bed with physical therapy. She does complain of shortness of breath with minimal activity. She ate oatmeal muffin for breakfast she denies any abdominal pain but still has not had a bowel movement and Dulcolax suppository added. She is scheduled for hemodialysis tomorrow. Goal will be for oxygen at 6 L nasal cannula for discharge. Anticipate need for subacute rehab. Probable discharge on Monday. 05/13: Patient has been afebrile. She is now pulse oxing 93% on 6 L nasal cannula. Her breathing status continues to improve and she is now seen sitting up in a chair at the bedside. She is scheduled for dialysis today. Dr. Obrien is recommended 2 weeks of vancomycin with dialysis. PT has recommended either home with homecare or subacute rehab. Patient would like to go to [facility] will plan for discharge on Monday. Objective - Vital Signs Vital signs: Vital Signs Temp 96.9 F L 05/13/17 04:00 Pulse 74 05/13/17 04:00 Resp 19 05/13/17 04:00 BP 175/75 05/13/17 04:00 Pulse Ox 93 L 05/13/17 04:00 Intake & Output 05/12/17 05/13/17 05/13/17 18:59 06:59 18:59 Intake Total 315 250 Output Total 1 5 Balance 314 245 Weight 98 kg Intake: Oral 315 250 Output: Urine 0 Stool 1 5 Other: Voiding Method Incontinent # Voids 0 0 # Bowel Movements 1 - Exam General appearance: cooperative minimal distress on N/C, obese - EENT Eyes: anicteric sclerae, PERRLA, normal appearance ENT: hearing grossly normal - Neck Neck: no lymphadenopathy, normal ROM, no other, no rigidity, no stridor, no thyromegaly - Respiratory Respiratory: bilateral: Diminished air entry bilaterally with crackles heard at the bases, and very decreased air movement in the left lower lobe - Cardiovascular Rhythm: The cardiac Heart sounds: normal: S1, S2 Abnormal Heart Sounds: no systolic murmur, no diastolic murmur, no rub and no lower extremity edema - Gastrointestinal General gastrointestinal: normal bowel sounds, soft - Integumentary Integumentary: no rash - Neurologic Neurologic: CNII-XII intact - Musculoskeletal Musculoskeletal: strength equal bilaterally - Psychiatric Psychiatric: A&O x's 3, appropriate affect - Labs CBC & Chem 7: 05/13/17 06:02 05/13/17 06:02 Labs: Abnormal Lab Results - Last 24 Hours (Table) 05/12/17 05/12/17 05/12/17 Range/Units 11:43 16:35 21:23 WBC (3.8-10.6) k/uL RBC (3.80-5.40) m/uL Hgb (11.4-16.0) gm/dL Hct (34.0-46.0) % MCHC (31.0-37.0) g/dL Sodium (137-145) mmol/L BUN (7-17) mg/dL Creatinine (0.52-1.04) mg/dL POC Glucose (mg/dL) 200 H 188 H 198 H (75-99) mg/dL 05/13/17 05/13/17 05/13/17 Range/Units 01:59 06:02 06:02 WBC 16.4 H (3.8-10.6) k/uL RBC 2.97 L (3.80-5.40) m/uL Hgb 8.7 L (11.4-16.0) gm/dL Hct 29.0 L (34.0-46.0) % MCHC 30.0 L (31.0-37.0) g/dL Sodium 135 L (137-145) mmol/L BUN 42 H (7-17) mg/dL Creatinine 4.40 H (0.52-1.04) mg/dL POC Glucose (mg/dL) 108 H (75-99) mg/dL Microbiology - Last 24 Hours (Table) 05/06/17 15:38 Blood Culture - Final Blood No Growth after 144 hours 05/06/17 15:16 Blood Culture - Final Blood No Growth after 144 hours 05/07/17 14:50 Blood Culture - Preliminary Blood No Growth after 120 hours 05/07/17 13:51 Blood Culture - Preliminary Blood No Growth after 120 hours Assessment and Plan Plan: 1. Acute hypoxic respiratory failure secondary to acute on chronic diastolic heart failure, COPD exacerbation, MRSA pneumonia, possible bacteremia ruled out. Moderate aortic stenosis. Continue on BiPAP or nasal cannula continue patient on Imdur 30 mg orally once every day, Toprol-XLl 100 mg orally once every day, IV Bumex, input and output and daily weight, cardiology consultation. Continue Vanco. Dr. Obrien is following. Pulmonary consult 2. Severe sepsis secondary to MRSA pneumonia. 3. End-stage renal disease on hemodialysis with pulmonary edema seen on chest x -ray, possible another session of hemodialysis today 4. Hypertension. Continue metoprolol 100 mg orally once every day. 5. Paroxysmal atrial fibrillation. Continue amiodarone 100 mg orally once every day, Cardizem 60 mg 3 times daily, resume eliquis. 6. Morbid obesity with BMI of 39. 7. Troponinemia -history of coronary artery disease. Acute coronary syndrome ruled out by cardiology 8. Diabetes mellitus type 2 . Continue Lantus 30 units in the morning and 40 units in the evening, discontinue scheduled NovoLog and continue sliding scale insulin. 9. GERD. Protonix. 10. Hypertension, hypertensive cardiovascular disease. Toprol-XL 100 mg orally once every day, and Imdur, Cardizem, Zetia 11. History of myocardial infarction and coronary artery disease. Continue aspirin 81 mg once every day, Toprol-XL 100 mg orally once every day, Imdur 30 mg orally once every day, Zetia 10 mg orally once every day. 12. Hyperlipidemia. 13. Diabetic peripheral neuropathy and neuropathy secondary to chronic back pain. Continue gabapentin 300 mg orally twice every day. 14. Depression, recurrent. Continue Cymbalta 60 mg orally once every day. 15. DVT prophylaxis. Eliquis and bilateral knee-high TERRIE hose. 16. GI Prophylaxis. Continue patient on PPI. 17. Full code. 18. Thrush. Nystatin, Diflucan. Discharge plan: on Monday. Impression and plan of care have been directed as dictated by the signing physician. Jessenia Gonzalez nurse practitioner acting as scribe for signing physician.
[2017-05-13] MEDS: POLYETHYLENE GLYCOL 3350 17 GM POWD.PACK PO SCH (12:22)
[2017-05-13 16:59] LABS: Iron Saturation 15.13 (12.00-45.00)
[2017-05-13 17:04] LABS: Glucose,Whole Blood 117 mg/dL (75-99)
[2017-05-13 21:04] LABS: Glucose,Whole Blood 288 mg/dL (75-99)
[2017-05-14 00:13] LABS: Glucose,Whole Blood 187 mg/dL (75-99)
[2017-05-14 02:02] LABS: Glucose,Whole Blood 102 mg/dL (75-99)
[2017-05-14 05:47] LABS: Glucose,Whole Blood 60 mg/dL (75-99)
[2017-05-14 06:17] LABS: HCT 30.2 % (34.0-46.0); HGB 9.7 gm/dL (11.4-16.0); MCH 30.9 pg (25.0-35.0); MCHC 31.9 g/dL (31.0-37.0); MCV 96.6 fL (80.0-100.0); Mean Platelet Volume 7.9; Platelet Count 325 k/uL (150-450); RBC 3.13 m/uL (3.80-5.40); RDW 14.8 % (11.5-15.5); WBC 15.5 k/uL (3.8-10.6)
[2017-05-14 06:20] LABS: Glucose,Whole Blood 84 mg/dL (75-99)
[2017-05-14 06:31] LABS: Calcium 9.4 mg/dL (8.4-10.2)
[2017-05-14] MEDS: INSULIN ASPART 100 UNIT/ML 1 ML 10 ML VIAL SQ SCH ×4 (06:57→22:03)
[2017-05-14] MEDS: SODIUM CHLORIDE 0.9% 1,000 ML IV SCH (07:23)
[2017-05-14] MEDS: SEVELAMER 800 MG TAB PO SCH ×3 (07:24→17:33)
[2017-05-14] MEDS: PANTOPRAZOLE 40 MG TABLET PO SCH (07:24)
[2017-05-14] MEDS: ASPIRIN 81 MG PO SCH (07:52)
[2017-05-14] MEDS: AMIODARONE 100 MG TAB PO SCH (07:52)
[2017-05-14] MEDS: APIXABAN 2.5 MG TABLET PO SCH ×2 (07:52→22:03)
[2017-05-14] MEDS: EZETIMIBE 10 MG TAB PO SCH (07:53)
[2017-05-14] MEDS: DILTIAZEM ORAL 60 MG TAB PO SCH ×3 (07:53→22:03)
[2017-05-14] MEDS: DULoxetine HCL 60 MG CAPSULE.DR PO SCH (07:53)
[2017-05-14] MEDS: METOPROLOL SUCCINATE (ER) 100 MG TAB.ER.24H PO SCH (07:54)
[2017-05-14] MEDS: FERROUS SULFATE 325 MG TAB PO SCH (07:54)
[2017-05-14] MEDS: FLUCONAZOLE 100 MG TAB PO SCH (07:54)
[2017-05-14] MEDS: MAGNESIUM OXIDE 400 MG TAB PO SCH (07:54)
[2017-05-14] MEDS: GABAPENTIN 300 MG CAP PO SCH ×2 (07:54→22:03)
[2017-05-14] MEDS: ISOSORBIDE MONONITRATE ER 30 MG TAB.ER.24H PO SCH (07:54)
[2017-05-14] MEDS: NYSTATIN 100,000 UNIT/ML SUSP 500,000 UNIT/5 ML CUP PO SCH ×4 (07:55→22:03)
[2017-05-14] MEDS: POLYETHYLENE GLYCOL 3350 17 GM POWD.PACK PO SCH (07:55)
[2017-05-14] MEDS: SENNOSIDES-DOCUSATE SODIUM 1 EACH TAB PO SCH ×2 (07:55→22:03)
[2017-05-14] MEDS: IPRATROPIUM-ALBUTEROL 3 ML NEB INHALATION SCH ×4 (08:19→19:37)
[2017-05-14] MEDS ORDERED: SODIUM FERRIC GLUCONAT-SUCROSE 125 MG in SODIUM CHLORIDE 0.9% 100 ML IVPB ONE (09:30)
--- NOTE | 2017-05-14 09:30 | P.PN ---
Subjective Progress Note Date: 05/14/17 Principal diagnosis: this 71-year-old female known to us with ESRD is admitted with congestive hear she was last dialyzed yesterday and 3.7 L ultrafiltrate without any problem. Patient denies feeling any cramps dizziness during dialysis. She states she's feeling better but remained short of breath. Appetite is fair. No nausea vomiting abdominal pain. No diarrhea. No fever chills or cough. the day before yesterday with 3.5 L ultrafiltration which she tolerated very well. She remains bedridden as before. She is known with being bedridden for several months 2 years now, coronary artery disease chronic atrial fibrillation and chronic heart failure and diabetes. Objective - Vital Signs Vital signs: Vital Signs Temp 98.9 F 05/14/17 03:39 Pulse 62 05/14/17 08:33 Resp 18 05/14/17 03:42 BP 147/66 05/14/17 03:39 Pulse Ox 95 05/14/17 03:39 Intake & Output 05/13/17 05/14/17 05/14/17 18:59 06:59 18:59 Intake Total 590 220 360 Output Total 1 3 Balance 589 217 360 Weight 97.5 kg Intake: IV 100 0.9 ns @ 20 100 Intake, IV Titration 250 20 Amount Sodium Chloride 0.9% 1, 20 000 ml @ 20 mls/hr IV . [facility] Rx#:[id number] Vancomycin 1,500 mg In 250 Sodium Chloride 0.9% 250 ml @ 125 mls/hr IVPB ONCE ONE Rx#:[id number] Oral 240 200 360 Output: Urine 0 Stool 1 3 Other: Voiding Method Incontinent Incontinent # Voids 0 Examination she is sleepy but arousable and cooperative. HEENT exam no JVP neck is supple no facial asymmetry Lungs are significant for diminished breath sounds bilaterally with poor inspiratory effort. No dullness to percussion. Heart sounds are unremarkable for any murmur rub gallop Abdomen is obese protuberant she has central obesity. Nontender. Extremity exam was no edema Neurologically awake alert but profoundly weak and had difficulty sitting up and she needed full support to sit up. - Labs CBC & Chem 7: 05/14/17 05:37 05/14/17 05:37 Labs: Abnormal Lab Results - Last 24 Hours (Table) 05/13/17 05/13/17 05/13/17 Range/Units 06:02 11:21 17:02 WBC (3.8-10.6) k/uL RBC (3.80-5.40) m/uL Hgb (11.4-16.0) gm/dL Hct (34.0-46.0) % Chloride (98-107) mmol/L Carbon Dioxide (22-30) mmol/L BUN (7-17) mg/dL Creatinine (0.52-1.04) mg/dL Glucose (74-99) mg/dL POC Glucose (mg/dL) 188 H 117 H (75-99) mg/dL Iron 36 L (50-170) ug/dL 05/13/17 05/13/17 05/14/17 Range/Units 21:01 23:52 01:59 WBC (3.8-10.6) k/uL RBC (3.80-5.40) m/uL Hgb (11.4-16.0) gm/dL Hct (34.0-46.0) % Chloride (98-107) mmol/L Carbon Dioxide (22-30) mmol/L BUN (7-17) mg/dL Creatinine (0.52-1.04) mg/dL Glucose (74-99) mg/dL POC Glucose (mg/dL) 288 H 187 H 102 H (75-99) mg/dL Iron (50-170) ug/dL 05/14/17 05/14/17 05/14/17 Range/Units 05:37 05:37 05:43 WBC 15.5 H (3.8-10.6) k/uL RBC 3.13 L (3.80-5.40) m/uL Hgb 9.7 L (11.4-16.0) gm/dL Hct 30.2 L (34.0-46.0) % Chloride 96 L (98-107) mmol/L Carbon Dioxide 32 H (22-30) mmol/L BUN 27 H (7-17) mg/dL Creatinine 3.37 H (0.52-1.04) mg/dL Glucose 70 L (74-99) mg/dL POC Glucose (mg/dL) 60 L (75-99) mg/dL Iron (50-170) ug/dL Microbiology - Last 24 Hours (Table) 05/07/17 14:50 Blood Culture - Final Blood No Growth after 144 hours 05/07/17 13:51 Blood Culture - Final Blood No Growth after 144 hours Assessment and Plan Assessment: impression 1. ESRD on dialysis currently on a Monday schedule. Last dialysis yesterday with 3.7 L ultrafiltration. 2. Congestive heart failure. Persistent 3. Diabetes mellitus 4. Chronically bedridden. 5. coronary artery disease with history of declining bypass surgery in the past. 6.Chronic paroxysmal atrial fibrillation. 7. hemoglobin 8.7 , anemia of ESRD , hemoglobin is up to 9.7 as of today 2017. Iron saturation is 15% Recommendation. 1. we will dialyze her tomorrow and will attempt again 3 L off for 3-1/2 hours. 2. maintain hemoglobin calcium phosphorus. 3 maintain nutritional support. 4. Will give her Ferrlecit 125 mg today
[2017-05-14] MEDS: BUMETANIDE 0.25 MG/ML 4 ML VIAL IVP SCH ×3 (10:20→22:03)
[2017-05-14] MEDS: DARBEPOETIN ALFA 40 MCG/0.4 ML SYRINGE SQ SCH (10:29)
[2017-05-14] MEDS: INSULIN DETEMIR 100 UNIT/ML 10 ML VIAL SQ SCH ×2 (10:38→22:02)
--- NOTE | 2017-05-14 11:27 | P.PN ---
Subjective Progress Note Date: 05/14/17 This is a 71-year-old female patient of Dr. Garcia with past medical history of atrial fibrillation, coronary artery disease status post myocardial infarction, has history of triple-vessel disease but was considered high risk for bypass, on conservative treatment,chronic diastolic heart failure , diabetes mellitus type 2, hyperlipidemia, hypertension, end-stage renal disease on hemodialysis, peripheral neuropathy.patient was recently hospitalized at [facility] in with significant shortness of breath, she was suggestive of pulmonary edema with acute kidney injury on CK D4 in the December 2016 patient was initiated on hemodialysis. Patient is doing well until 6 days ago when she started having flulike symptoms associated with postnasal drip and cough. She did see Dr. Garcia 2 days ago and was prescribed antibiotics with steroids, patient was unable to get the prescription for albuterol and was using an prescription. With no improvement of symptoms. Since she was very short of breath yesterday along with palpitations she decided to come to the ER. She has been afebrile since admission, tachycardic from 100-102 blood pressure is stable in 136/65 retreat of 28 on admission patient was desaturating to the 78 on room air and was placed on BiPAP, chest x-ray suggestive of pulmonary edema. No consolidation or atelectasis present. Lactic acid was greater than 4 on admission and improved to 1.8 on repeat checking. No fluid boluses was given because patient is in end-stage renal disease. Labs including a CBC is 34.2, hemoglobin 11.4 MCV 101, INR 1.1, BNP suggestive of creatinine at 2.84. BUN of 24. Troponin elevated 0.47. ProBNP 9700. Patient was initiated on levofloxacin and Zosyn. Pulmonary, cardiology and nephrology consult placed for acute hypoxic respiratory failure, increase troponin anemia and CHF exacerbation and possible dialysis today for pulmonary edema. 05/06: patient continued to be lethargic no major events reported by nursing staff patient is alert and oriented following commands denying chest pain shortness breath nausea vomiting abdominal pain dizziness or lightheadedness 05/07:Patient continued to be hemodynamically stable seems to be responding after switching to BiPAP by pulmonary. Patient is not responding at this point to Lasix as she is not having any improvement in her urine output and nursing staff asked if that's can be switched to different medication. Patient is denying chest pain nausea vomiting dizziness lightheadedness or blurry vision seems to be oriented and following commands. Patient's baseline that she is bedbound at home and stated that she is extremely weak at this point 05/08: Repeat chest x-ray shows findings could represent pulmonary edema, pneumonia, correlate. Consult with Dr. Obrien has been added with recommendations for blood cultures from the port and continue vancomycin and Zosyn. Patient has been afebrile. Pulse ox is 95% on BiPAP. White count has dropped to 15.6. Hemoglobin today is 8.8. Initial blood culture is positive for coag-negative staph and repeats obtained on May 06 are showing no growth at 24 hours. Sputum culture is in progress and urine culture has been finalized with no growth at 18 hours. Daughter is at the bedside. Patient complains of weakness, less shortness of breath. No appetite. She only ate few bites of oatmeal this morning. She is wheelchair bound. Patient continues to have fluid retention. 05/09: Patient is scheduled for dialysis today. She is normally Monday schedule. She is continued on IV Bumex 1 mg 3 times daily and cardiology increase Cardizem to 60 mg 3 times daily. Repeat blood cultures are all showing no growth at 48 or 24 hours. Sputum culture is presumptive staph aureus. Patient has been afebrile. Patient has been on BiPAP with pulse ox of 90% but has dropped to 79% on nasal cannula when this in place for patient to eat. Oral intake is down for which scheduled NovoLog will be discontinued and Levemir dose adjusted. Patient could benefit from CAT scan once she is stable. Eliquis will be resumed. 05/10: Patient has been on BiPAP or nasal cannula at 15 L and pulse oxing 91-93% . White count is at 17 and hemoglobin 8.4. Her blood glucose running between 73 and 217 with changes made yesterday to insulins. Sputum cultures positive for MRSA. Dr. Obrien has discontinued Zosyn and continued vancomycin. Patient to have repeat dialysis today. Patient has not had a bowel movement since admission and Colace changed to Senokot scheduled. 05/11: Dr. Obrien has recommended vancomycin for 2 weeks. Cardiology is following on an as-needed basis only. Her heart rate is currently controlled and she has been afebrile. She is currently on high flow nasal cannula at 15 L pulse oxing 93-98%. Breathing status is improving. Patient continues of constipation for which one dose of MiraLAX added. She may be able to participate with physical therapy today. 05/12: Patient is now on O2 nasal cannula at 10 L and pulse oxing 95-99%. She has been up to the side of the bed with physical therapy. She does complain of shortness of breath with minimal activity. She ate oatmeal muffin for breakfast she denies any abdominal pain but still has not had a bowel movement and Dulcolax suppository added. She is scheduled for hemodialysis tomorrow. Goal will be for oxygen at 6 L nasal cannula for discharge. Anticipate need for subacute rehab. Probable discharge on Monday. 05/13: Patient has been afebrile. She is now pulse oxing 93% on 6 L nasal cannula. Her breathing status continues to improve and she is now seen sitting up in a chair at the bedside. She is scheduled for dialysis today. Dr. Obrien is recommended 2 weeks of vancomycin with dialysis. PT has recommended either home with homecare or subacute rehab. Patient would like to go to [facility] will plan for discharge on Monday. 05/14: Patient is now on 3 L nasal cannula pulse oxing 95%. She has been afebrile. Heart rate is been running in the 50s and 60s. Patient is scheduled for dialysis for tomorrow. Regarding her ongoing constipation. She does state she had a little bowel movement this morning. Blood sugar was 60 this morning and her morning dose of Levemir will be discontinued and the nighttime dose of Levemir decreased from 40 units to 30 units. Objective - Vital Signs Vital signs: Vital Signs Temp 98.9 F 05/14/17 03:39 Pulse 62 05/14/17 03:42 Resp 18 05/14/17 03:42 BP 147/66 05/14/17 03:39 Pulse Ox 95 05/14/17 03:39 Intake & Output 05/13/17 05/14/17 05/14/17 18:59 06:59 18:59 Intake Total 590 220 360 Output Total 1 3 Balance 589 217 360 Weight 97.5 kg Intake: IV 100 0.9 ns @ 20 100 Intake, IV Titration 250 20 Amount Sodium Chloride 0.9% 1, 20 000 ml @ 20 mls/hr IV . Q24H [facility] Rx#:[id number] Vancomycin 1,500 mg In 250 Sodium Chloride 0.9% 250 ml @ 125 mls/hr IVPB ONCE ONE Rx#:[id number] Oral 240 200 360 Output: Urine 0 Stool 1 3 Other: Voiding Method Incontinent Incontinent # Voids 0 - Exam General appearance: cooperative minimal distress on N/C, obese - EENT Eyes: anicteric sclerae, PERRLA, normal appearance ENT: hearing grossly normal - Neck Neck: no lymphadenopathy, normal ROM, no other, no rigidity, no stridor, no thyromegaly - Respiratory Respiratory: bilateral: Diminished air entry bilaterally with crackles heard at the bases, and very decreased air movement in the left lower lobe - Cardiovascular Rhythm: The cardiac Heart sounds: normal: S1, S2 Abnormal Heart Sounds: no systolic murmur, no diastolic murmur, no rub and no lower extremity edema - Gastrointestinal General gastrointestinal: normal bowel sounds, soft - Integumentary Integumentary: no rash - Neurologic Neurologic: CNII-XII intact - Musculoskeletal Musculoskeletal: strength equal bilaterally - Psychiatric Psychiatric: A&O x's 3, appropriate affect - Labs CBC & Chem 7: 05/14/17 05:37 05/14/17 05:37 Labs: Abnormal Lab Results - Last 24 Hours (Table) 05/13/17 05/13/17 05/13/17 Range/Units 06:02 11:21 17:02 WBC (3.8-10.6) k/uL RBC (3.80-5.40) m/uL Hgb (11.4-16.0) gm/dL Hct (34.0-46.0) % Chloride (98-107) mmol/L Carbon Dioxide (22-30) mmol/L BUN (7-17) mg/dL Creatinine (0.52-1.04) mg/dL Glucose (74-99) mg/dL POC Glucose (mg/dL) 188 H 117 H (75-99) mg/dL Iron 36 L (50-170) ug/dL 05/13/17 05/13/17 05/14/17 Range/Units 21:01 23:52 01:59 WBC (3.8-10.6) k/uL RBC (3.80-5.40) m/uL Hgb (11.4-16.0) gm/dL Hct (34.0-46.0) % Chloride (98-107) mmol/L Carbon Dioxide (22-30) mmol/L BUN (7-17) mg/dL Creatinine (0.52-1.04) mg/dL Glucose (74-99) mg/dL POC Glucose (mg/dL) 288 H 187 H 102 H (75-99) mg/dL Iron (50-170) ug/dL 05/14/17 05/14/17 05/14/17 Range/Units 05:37 05:37 05:43 WBC 15.5 H (3.8-10.6) k/uL RBC 3.13 L (3.80-5.40) m/uL Hgb 9.7 L (11.4-16.0) gm/dL Hct 30.2 L (34.0-46.0) % Chloride 96 L (98-107) mmol/L Carbon Dioxide 32 H (22-30) mmol/L BUN 27 H (7-17) mg/dL Creatinine 3.37 H (0.52-1.04) mg/dL Glucose 70 L (74-99) mg/dL POC Glucose (mg/dL) 60 L (75-99) mg/dL Iron (50-170) ug/dL Microbiology - Last 24 Hours (Table) 05/07/17 14:50 Blood Culture - Final Blood No Growth after 144 hours 05/07/17 13:51 Blood Culture - Final Blood No Growth after 144 hours Assessment and Plan Plan: 1. Acute hypoxic respiratory failure secondary to acute on chronic diastolic heart failure, COPD exacerbation, MRSA pneumonia, possible bacteremia ruled out. Moderate aortic stenosis. Continue on BiPAP or nasal cannula continue patient on Imdur 30 mg orally once every day, Toprol-XLl 100 mg orally once every day, IV Bumex, input and output and daily weight, cardiology consultation. Continue Vanco. Dr. Obrien is following. Pulmonary consult 2. Severe sepsis secondary to MRSA pneumonia. 3. End-stage renal disease on hemodialysis with pulmonary edema seen on chest x -ray, possible another session of hemodialysis today 4. Hypertension. Continue metoprolol 100 mg orally once every day. 5. Paroxysmal atrial fibrillation. Continue amiodarone 100 mg orally once every day, Cardizem 60 mg 3 times daily, resume eliquis. 6. Morbid obesity with BMI of 39. 7. Troponinemia -history of coronary artery disease. Acute coronary syndrome ruled out by cardiology 8. Diabetes mellitus type 2, uncontrolled. Morning dose of Levemir will be discontinued and the nighttime dose of Levemir decreased from 40 units to 30 units. Continue sliding scale insulin. 9. GERD. Protonix. 10. Hypertension, hypertensive cardiovascular disease. Toprol-XL 100 mg orally once every day, and Imdur, Cardizem, Zetia 11. History of myocardial infarction and coronary artery disease. Continue aspirin 81 mg once every day, Toprol-XL 100 mg orally once every day, Imdur 30 mg orally once every day, Zetia 10 mg orally once every day. 12. Hyperlipidemia. 13. Diabetic peripheral neuropathy and neuropathy secondary to chronic back pain. Continue gabapentin 300 mg orally twice every day. 14. Depression, recurrent. Continue Cymbalta 60 mg orally once every day. 15. DVT prophylaxis. Eliquis and bilateral knee-high TERRIE hose. 16. GI Prophylaxis. Continue patient on PPI. 17. Full code. 18. Thrush. Nystatin, Diflucan. Discharge plan: [place] on Monday. Impression and plan of care have been directed as dictated by the signing physician. Jessenia Gonzalez nurse practitioner acting as scribe for signing physician.
[2017-05-14 11:47] LABS: Glucose,Whole Blood 225 mg/dL (75-99)
[2017-05-14 17:24] LABS: Glucose,Whole Blood 159 mg/dL (75-99)
[2017-05-14 20:56] LABS: Glucose,Whole Blood 255 mg/dL (75-99)
[2017-05-15 02:30] LABS: Glucose,Whole Blood 140 mg/dL (75-99)
[2017-05-15] MEDS ORDERED: hydrALAZINE HCL 20 MG/ML 1 ML VIAL IVP PRN (04:26)
[2017-05-15] MEDS: INSULIN ASPART 100 UNIT/ML 1 ML 10 ML VIAL SQ SCH ×4 (06:13→22:05)
[2017-05-15 06:32] LABS: Glucose,Whole Blood 95 mg/dL (75-99)
[2017-05-15 06:36] LABS: HCT 28.1 % (34.0-46.0); HGB 9.3 gm/dL (11.4-16.0); MCV 93.9 fL (80.0-100.0); Mean Platelet Volume 8.6; Platelet Count 356 k/uL (150-450); RBC 2.99 m/uL (3.80-5.40); RDW 14.5 % (11.5-15.5)
[2017-05-15] MEDS: PANTOPRAZOLE 40 MG TABLET PO SCH (06:58)
[2017-05-15] MEDS: SEVELAMER 800 MG TAB PO SCH ×3 (06:58→17:32)
[2017-05-15] MEDS: SODIUM CHLORIDE 0.9% 1,000 ML IV SCH (06:58)
[2017-05-15] MEDS: IPRATROPIUM-ALBUTEROL 3 ML NEB INHALATION SCH ×4 (07:41→19:46)
[2017-05-15 07:46] LABS: Calcium 8.9 mg/dL (8.4-10.2)
[2017-05-15 07:51] LABS: Vancomycin,Random 23.2 ug/mL
[2017-05-15 07:55] LABS: Potassium 5.3 mmol/L (3.5-5.1)
[2017-05-15] MEDS: ACETAMINOPHEN TAB 325 MG TAB PO PRN (08:35)
[2017-05-15] MEDS: ASPIRIN 81 MG PO SCH (08:36)
[2017-05-15] MEDS: DILTIAZEM ORAL 60 MG TAB PO SCH ×3 (08:36→20:09)
[2017-05-15] MEDS: BUMETANIDE 0.25 MG/ML 4 ML VIAL IVP SCH ×3 (08:36→21:10)
[2017-05-15] MEDS: APIXABAN 2.5 MG TABLET PO SCH ×2 (08:36→20:08)
[2017-05-15] MEDS: NYSTATIN 100,000 UNIT/ML SUSP 500,000 UNIT/5 ML CUP PO SCH ×4 (08:37→20:09)
[2017-05-15] MEDS: POLYETHYLENE GLYCOL 3350 17 GM POWD.PACK PO SCH (08:37)
[2017-05-15] MEDS: METOPROLOL SUCCINATE (ER) 100 MG TAB.ER.24H PO SCH (08:37)
[2017-05-15] MEDS: FLUCONAZOLE 100 MG TAB PO SCH (08:38)
[2017-05-15] MEDS: DULoxetine HCL 60 MG CAPSULE.DR PO SCH (08:38)
[2017-05-15] MEDS: FERROUS SULFATE 325 MG TAB PO SCH (08:38)
[2017-05-15] MEDS: GABAPENTIN 300 MG CAP PO SCH ×2 (08:38→20:08)
[2017-05-15] MEDS: EZETIMIBE 10 MG TAB PO SCH (08:38)
[2017-05-15] MEDS: AMIODARONE 100 MG TAB PO SCH (08:38)
[2017-05-15] MEDS ORDERED: VANCOMYCIN 1,500 MG in SODIUM CHLORIDE 0.9% 250 ML IVPB ONE (10:00)
[2017-05-15] MEDS ORDERED: BISACODYL 10 MG SUPP RECTAL STA (10:01)
--- NOTE | 2017-05-15 10:27 | XR ---
EXAMINATION TYPE: XR abdomen 2V DATE OF EXAM: 05/15/2017 COMPARISON: NONE HISTORY: Constipation TECHNIQUE: 3 view abdominal series FINDINGS: The osseous structures are intact. The bowel gas pattern is nonspecific. Diffuse osteopenia and arth ropathy of the hips. Postsurgical change involving the vertebral column. Surgical clips in the right upper quadrant. Subsegmental changes at both lung bases. Dialysis catheter noted. Density left perih ilar region of the lung is stable from previous exam of uncertain etiology. IMPRESSION: 1. Nonspecific abdomen. 2. Bibasilar atelectasis or infiltrate.
[2017-05-15] MEDS: MAGNESIUM OXIDE 400 MG TAB PO SCH (11:38)
[2017-05-15] MEDS: SENNOSIDES-DOCUSATE SODIUM 1 EACH TAB PO SCH ×2 (11:38→20:08)
[2017-05-15] MEDS: ISOSORBIDE MONONITRATE ER 30 MG TAB.ER.24H PO SCH (11:39)
[2017-05-15] MEDS: hydrALAZINE HCL 50 MG TAB PO SCH ×2 (11:39→20:08)
[2017-05-15 11:44] LABS: Glucose,Whole Blood 256 mg/dL (75-99)
--- NOTE | 2017-05-15 14:25 | P.PN ---
Subjective Progress Note Date: 05/15/17 This is a 71-year-old female patient of Dr. Garcia with past medical history of atrial fibrillation, coronary artery disease status post myocardial infarction, has history of triple-vessel disease but was considered high risk for bypass, on conservative treatment,chronic diastolic heart failure , diabetes mellitus type 2, hyperlipidemia, hypertension, end-stage renal disease on hemodialysis, peripheral neuropathy.patient was recently hospitalized at [facility] in with significant shortness of breath, she was suggestive of pulmonary edema with acute kidney injury on CK D4 in the December 2016 patient was initiated on hemodialysis. Patient is doing well until 6 days ago when she started having flulike symptoms associated with postnasal drip and cough. She did see Dr. Garcia 2 days ago and was prescribed antibiotics with steroids, patient was unable to get the prescription for albuterol and was using an prescription. With no improvement of symptoms. Since she was very short of breath yesterday along with palpitations she decided to come to the ER. She has been afebrile since admission, tachycardic from 100-102 blood pressure is stable in 136/65 retreat of 28 on admission patient was desaturating to the 78 on room air and was placed on BiPAP, chest x-ray suggestive of pulmonary edema. No consolidation or atelectasis present. Lactic acid was greater than 4 on admission and improved to 1.8 on repeat checking. No fluid boluses was given because patient is in end-stage renal disease. Labs including a CBC is 34.2, hemoglobin 11.4 MCV 101, INR 1.1, BNP suggestive of creatinine at 2.84. BUN of 24. Troponin elevated 0.47. ProBNP 9700. Patient was initiated on levofloxacin and Zosyn. Pulmonary, cardiology and nephrology consult placed for acute hypoxic respiratory failure, increase troponin anemia and CHF exacerbation and possible dialysis today for pulmonary edema. 05/06: patient continued to be lethargic no major events reported by nursing staff patient is alert and oriented following commands denying chest pain shortness breath nausea vomiting abdominal pain dizziness or lightheadedness 05/07:Patient continued to be hemodynamically stable seems to be responding after switching to BiPAP by pulmonary. Patient is not responding at this point to Lasix as she is not having any improvement in her urine output and nursing staff asked if that's can be switched to different medication. Patient is denying chest pain nausea vomiting dizziness lightheadedness or blurry vision seems to be oriented and following commands. Patient's baseline that she is bedbound at home and stated that she is extremely weak at this point 05/08: Repeat chest x-ray shows findings could represent pulmonary edema, pneumonia, correlate. Consult with Dr. Obrien has been added with recommendations for blood cultures from the port and continue vancomycin and Zosyn. Patient has been afebrile. Pulse ox is 95% on BiPAP. White count has dropped to 15.6. Hemoglobin today is 8.8. Initial blood culture is positive for coag-negative staph and repeats obtained on May 06 are showing no growth at 24 hours. Sputum culture is in progress and urine culture has been finalized with no growth at 18 hours. Daughter is at the bedside. Patient complains of weakness, less shortness of breath. No appetite. She only ate few bites of oatmeal this morning. She is wheelchair bound. Patient continues to have fluid retention. 05/09: Patient is scheduled for dialysis today. She is normally Monday schedule. She is continued on IV Bumex 1 mg 3 times daily and cardiology increase Cardizem to 60 mg 3 times daily. Repeat blood cultures are all showing no growth at 48 or 24 hours. Sputum culture is presumptive staph aureus. Patient has been afebrile. Patient has been on BiPAP with pulse ox of 90% but has dropped to 79% on nasal cannula when this in place for patient to eat. Oral intake is down for which scheduled NovoLog will be discontinued and Levemir dose adjusted. Patient could benefit from CAT scan once she is stable. Eliquis will be resumed. 05/10: Patient has been on BiPAP or nasal cannula at 15 L and pulse oxing 91-93% . White count is at 17 and hemoglobin 8.4. Her blood glucose running between 73 and 217 with changes made yesterday to insulins. Sputum cultures positive for MRSA. Dr. Obrien has discontinued Zosyn and continued vancomycin. Patient to have repeat dialysis today. Patient has not had a bowel movement since admission and Colace changed to Senokot scheduled. 05/11: Dr. Obrien has recommended vancomycin for 2 weeks. Cardiology is following on an as-needed basis only. Her heart rate is currently controlled and she has been afebrile. She is currently on high flow nasal cannula at 15 L pulse oxing 93-98%. Breathing status is improving. Patient continues of constipation for which one dose of MiraLAX added. She may be able to participate with physical therapy today. 05/12: Patient is now on O2 nasal cannula at 10 L and pulse oxing 95-99%. She has been up to the side of the bed with physical therapy. She does complain of shortness of breath with minimal activity. She ate oatmeal muffin for breakfast she denies any abdominal pain but still has not had a bowel movement and Dulcolax suppository added. She is scheduled for hemodialysis tomorrow. Goal will be for oxygen at 6 L nasal cannula for discharge. Anticipate need for subacute rehab. Probable discharge on Monday. 05/13: Patient has been afebrile. She is now pulse oxing 93% on 6 L nasal cannula. Her breathing status continues to improve and she is now seen sitting up in a chair at the bedside. She is scheduled for dialysis today. Dr. Obrien is recommended 2 weeks of vancomycin with dialysis. PT has recommended either home with homecare or subacute rehab. Patient would like to go to [facility] will plan for discharge on Monday. 05/14: Patient is now on 3 L nasal cannula pulse oxing 95%. She has been afebrile. Heart rate is been running in the 50s and 60s. Patient is scheduled for dialysis for tomorrow. Regarding her ongoing constipation. She does state she had a little bowel movement this morning. Blood sugar was 60 this morning and her morning dose of Levemir will be discontinued and the nighttime dose of Levemir decreased from 40 units to 30 units. 05/15: Pulse ox is 97% on 3 L nasal cannula. Patient was planned for discharge today but she is very lethargic and does not want to get out of bed. Patient does not want to go to [facility] in is requesting to go home. We will ask for PT to reassess for safety at home. Patient is complaining of feeling a little nauseated. She still has not had a good bowel movement. Dulcolax suppository added and abdominal x-ray shows nonspecific abdomen. Bibasilar atelectasis or infiltrate. Blood pressures on the high side for which hydralazine added. Objective - Vital Signs Vital signs: Vital Signs Temp 96.7 F L 05/15/17 08:26 Pulse 68 05/15/17 11:18 Resp 16 05/15/17 08:26 BP 173/72 05/15/17 08:26 Pulse Ox 97 05/15/17 08:26 Intake & Output 05/14/17 05/15/17 05/15/17 18:59 06:59 18:59 Intake Total 860 100 Output Total 3 Balance 860 97 Weight 96 kg Intake: Intake, IV Titration 140 Amount Sodium Chloride 0.9% 1, 40 000 ml @ 20 mls/hr IV . Q24H [facility] Rx#:[id number] Sodium Ferric Gluconat- 100 Sucrose 125 mg In Sodium Chloride 0.9% 100 ml @ 100 mls/hr IVPB ONCE ONE Rx#:[id number] Oral 720 100 Output: Urine 0 Stool 3 Other: Voiding Method Incontinent Incontinent Incontinent # Voids 2 - Exam General appearance: cooperative no distress on N/C, obese - EENT Eyes: anicteric sclerae, PERRLA, normal appearance ENT: hearing grossly normal - Neck Neck: no lymphadenopathy, normal ROM, no other, no rigidity, no stridor, no thyromegaly - Respiratory Respiratory: bilateral: Diminished air entry bilaterally with crackles heard at the bases - Cardiovascular Rhythm: The cardiac Heart sounds: normal: S1, S2 Abnormal Heart Sounds: no systolic murmur, no diastolic murmur, no rub and no lower extremity edema - Gastrointestinal General gastrointestinal: normal bowel sounds, soft - Integumentary Integumentary: no rash - Neurologic Neurologic: CNII-XII intact - Musculoskeletal Musculoskeletal: strength equal bilaterally - Psychiatric Psychiatric: A&O x's 3, appropriate affect - Labs CBC & Chem 7: 05/15/17 05:47 05/15/17 05:47 Labs: Abnormal Lab Results - Last 24 Hours (Table) 05/14/17 05/14/17 05/14/17 Range/Units 11:39 17:19 20:54 WBC (3.8-10.6) k/uL RBC (3.80-5.40) m/uL Hgb (11.4-16.0) gm/dL Hct (34.0-46.0) % Sodium (137-145) mmol/L Potassium (3.5-5.1) mmol/L Chloride (98-107) mmol/L BUN (7-17) mg/dL Creatinine (0.52-1.04) mg/dL POC Glucose (mg/dL) 225 H 159 H 255 H (75-99) mg/dL 05/15/17 05/15/17 05/15/17 Range/Units 02:23 05:47 05:47 WBC 17.0 H (3.8-10.6) k/uL RBC 2.99 L (3.80-5.40) m/uL Hgb 9.3 L (11.4-16.0) gm/dL Hct 28.1 L (34.0-46.0) % Sodium 134 L (137-145) mmol/L Potassium 5.3 H (3.5-5.1) mmol/L Chloride 97 L (98-107) mmol/L BUN 43 H (7-17) mg/dL Creatinine 4.00 H (0.52-1.04) mg/dL POC Glucose (mg/dL) 140 H (75-99) mg/dL Assessment and Plan Plan: 1. Acute hypoxic respiratory failure secondary to acute on chronic diastolic heart failure, COPD exacerbation, MRSA pneumonia, possible bacteremia ruled out. Moderate aortic stenosis. Continue on BiPAP or nasal cannula continue patient on Imdur 30 mg orally once every day, Toprol-XLl 100 mg orally once every day, IV Bumex, input and output and daily weight, cardiology consultation. Continue Vanco. Dr. Obrien is following. Pulmonary consult 2. Severe sepsis secondary to MRSA pneumonia. 3. End-stage renal disease on hemodialysis with pulmonary edema seen on chest x -ray, continue hemodialysis 4. Hypertension. Continue metoprolol 100 mg orally once every day. 5. Paroxysmal atrial fibrillation. Continue amiodarone 100 mg orally once every day, Cardizem 60 mg 3 times daily, resume eliquis. 6. Morbid obesity with BMI of 39. 7. Troponinemia -history of coronary artery disease. Acute coronary syndrome ruled out by cardiology 8. Diabetes mellitus type 2, uncontrolled. Morning dose of Levemir will be discontinued and the nighttime dose of Levemir decreased from 40 units to 30 units. Continue sliding scale insulin. 9. GERD. Protonix. 10. Hypertension, hypertensive cardiovascular disease. Toprol-XL 100 mg orally once every day, and Imdur, Cardizem, Zetia 11. History of myocardial infarction and coronary artery disease. Continue aspirin 81 mg once every day, Toprol-XL 100 mg orally once every day, Imdur 30 mg orally once every day, Zetia 10 mg orally once every day. 12. Hyperlipidemia. 13. Diabetic peripheral neuropathy and neuropathy secondary to chronic back pain. Continue gabapentin 300 mg orally twice every day. 14. Depression, recurrent. Continue Cymbalta 60 mg orally once every day. 15. DVT prophylaxis. Eliquis and bilateral knee-high TERRIE hose. 16. GI Prophylaxis. Continue patient on PPI. 17. Full code. 18. Thrush. Nystatin, Diflucan. Discharge plan: [place] or home on Monday. Impression and plan of care have been directed as dictated by the signing physician. Jessenia Gonzalez nurse practitioner acting as scribe for signing physician.
[2017-05-15 17:14] LABS: Glucose,Whole Blood 144 mg/dL (75-99)
[2017-05-15] MEDS: IOHEXOL 350 MG/ML 25 ML BOTTLE (ORAL USE) PO PRN ×2 (20:11→21:09)
[2017-05-15 20:44] LABS: Glucose,Whole Blood 213 mg/dL (75-99)
[2017-05-15] MEDS: INSULIN DETEMIR 100 UNIT/ML 10 ML VIAL SQ SCH (22:05)
[2017-05-15] MEDS: PIPERACILLIN-TAZOBACTAM 3.375 GM in DEXTROSE/WATER 1 50ML.BAG IVPB SCH (22:05)
--- NOTE | 2017-05-15 22:22 | CT ---
EXAMINATION TYPE: CT abdomen pelvis wo con DATE OF EXAM: 05/15/2017 COMPARISON: NONE HISTORY: Abdominal pain and leukocytosis. CT DLP: 1168.3 mGycm Automated exposure control for dose reduction was used. TECHNIQUE: Helical acquisition of images was performed from the lung bases through the pelvis. FINDINGS: There are bilateral pleural effusions. There are bilateral basilar pulmonary infiltrates and atelecta sis. There are clips from cholecystectomy. Liver shows no focal defect. Spleen appears normal. There is no pancreatic mass. There is no adrenal mass. Kidneys have normal size. There is no hydronephrosis. The re is no retroperitoneal adenopathy. There is no ascites. There are no dilated loops. Bladder distend s smoothly. There is some wall thickening involving the rectum. There is multilevel posterior lumbar fusion surgery. There is compression deformity of multiple lumbar and thoracic vertebra. There is ost eopenia. IMPRESSION: BILATERAL PLEURAL EFFUSIONS AND LOWER LOBE INFILTRATES CONSISTENT WITH PNEUMONIA. MILD RECTAL WALL THICKENING CONSISTENT WITH FOCAL COLITIS. ATHEROSCLEROTIC VASCULAR DISEASE.
--- NOTE | 2017-05-15 22:26 | PN ---
PROGRESS NOTE DATE OF SERVICE: 05/15/2017. REASON FOR FOLLOWUP: 1. MRSA pneumonia. 2. Persistent elevated white count, question abdominal source. INTERVAL HISTORY: The patient is afebrile. She has been noted to be very weak and lethargic today. No nausea, no vomiting. However, the patient did not have any bowel movement despite the laxative that she has received. Did have an acute abdominal series which shows some nonspecific bowel gas pattern. She was unable to provide any reliable history. EXAMINATION: Blood pressure is 106/53 with a pulse of 60, temperature 96.8. She is 100% on 3 L nasal cannula. General description is an elderly female lying in bed in no distress. Respiratory system: Unlabored breathing. Decreased breath sounds in the bases. No wheeze. Heart S1, S2. Regular rate and rhythm. Abdomen soft, minimal distention. No guarding or rigidity. LABS: Hemoglobin 9.3, white count 17,000 with a BUN of 43, creatinine 4.0. DIAGNOSTIC IMPRESSION AND PLAN: Patient with MRSA pneumonia to which the patient is clinically responding to the vancomycin as her O2 requirement is down to 3 L nasal cannula. However, the patient did have persistent elevated white count, currently not on any steroids. The patient also has constipation with a question of possible abdominal source. A CT abdominal and pelvis with oral contrast will be obtained and we will add Zosyn empirically. Repeat a CBC tomorrow. Continue supportive care. MMODL / IJN: [id number] /
--- NOTE | 2017-05-15 23:23 | PN ---
PROGRESS NOTE Patient is seen for followup for end-stage renal disease. She was admitted to the hospital with fluid overload. She has dialyzed aggressively. The patient is normally on a Monday, , Monday schedule. She will be dialyzed again tomorrow and will be dialyzed today as well. EXAMINATION: Currently patient is comfortable. She is lying flat. She is lying almost flat with no significant shortness of breath. Blood pressure this morning was 173/72, heart rate of 64 per minute. She is afebrile. Examination of the heart S1, S2. Examination of the lungs bilateral breath sounds are heard. Decreased breath sounds at bases. ABDOMEN: Soft, distended, obese. Examination of the lower extremities shows no evidence of edema. LAB: Show sodium of 134, potassium 5.3, BUN 43, serum creatinine 4.0, hemoglobin 9.3 g/dL. ASSESSMENT: 1. End-stage renal disease, on hemodialysis on a Monday, , Monday schedule. The patient will be dialyzed today and then again tomorrow. Mainly for volume overload. 2. Fluid overload currently significantly improved. 3. Chronic obstructive pulmonary disease. 4. Paroxysmal atrial fibrillation. 5. Type 2 diabetes. 6. Generalized debility. 7. Anemia of chronic disease maintained on Aranesp. Status post IV iron. No active bleeding noted at this time. PLAN: Hemodialysis today and then repeat in a.m. UF for about 3-3.5 L as tolerated. MMODL / IJN: [id number] /
[2017-05-16] MEDS: SODIUM CHLORIDE 0.9% 1,000 ML IV SCH (01:19)
[2017-05-16 05:55] LABS: Glucose,Whole Blood 137 mg/dL (75-99)
[2017-05-16 06:14] LABS: Basophils # (A) 0.1 k/uL (0-0.2); Basophils % (A) 0 %; Eosinophils # (A) 0.2 k/uL (0-0.7); Eosinophils % (A) 1 %; HCT 28.3 % (34.0-46.0); HGB 8.8 gm/dL (11.4-16.0); Hypochromasia Slight; Lymphocytes # (A) 1.2 k/uL (1.0-4.8); Lymphocytes % (A) 7 %; MCH 30.1 pg (25.0-35.0); MCV 97.2 fL (80.0-100.0); Mean Platelet Volume 8.2; Monocytes # (A) 0.7 k/uL (0-1.0); Monocytes % (A) 4 %; Neutrophils # (A) 14.5 k/uL (1.3-7.7); Neutrophils % (A) 86 %; Platelet Count 320 k/uL (150-450); RBC 2.91 m/uL (3.80-5.40); RDW 15.7 % (11.5-15.5); WBC 16.9 k/uL (3.8-10.6)
[2017-05-16] MEDS: INSULIN ASPART 100 UNIT/ML 1 ML 10 ML VIAL SQ SCH ×3 (06:21→16:45)
[2017-05-16] MEDS: SEVELAMER 800 MG TAB PO SCH ×3 (06:27→16:41)
[2017-05-16] MEDS: PANTOPRAZOLE 40 MG TABLET PO SCH (06:28)
[2017-05-16 06:41] LABS: Albumin 2.8 g/dL (3.5-5.0); Calcium 8.5 mg/dL (8.4-10.2); Potassium 4.5 mmol/L (3.5-5.1); Total Bilirubin 0.4 mg/dL (0.2-1.3); Total Protein 6.3 g/dL (6.3-8.2)
[2017-05-16] MEDS: IPRATROPIUM-ALBUTEROL 3 ML NEB INHALATION SCH ×3 (07:51→16:35)
[2017-05-16] MEDS: POLYETHYLENE GLYCOL 3350 17 GM POWD.PACK PO SCH (09:34)
[2017-05-16] MEDS: DULoxetine HCL 60 MG CAPSULE.DR PO SCH (09:34)
[2017-05-16] MEDS: SENNOSIDES-DOCUSATE SODIUM 1 EACH TAB PO SCH (09:34)
[2017-05-16] MEDS: NYSTATIN 100,000 UNIT/ML SUSP 500,000 UNIT/5 ML CUP PO SCH ×2 (09:35→12:43)
[2017-05-16] MEDS: APIXABAN 2.5 MG TABLET PO SCH (09:36)
[2017-05-16] MEDS: EZETIMIBE 10 MG TAB PO SCH (09:40)
[2017-05-16] MEDS: FERROUS SULFATE 325 MG TAB PO SCH (09:40)
[2017-05-16] MEDS: FLUCONAZOLE 100 MG TAB PO SCH (09:40)
[2017-05-16] MEDS: GABAPENTIN 300 MG CAP PO SCH (09:41)
--- NOTE | 2017-05-16 09:57 | P.PN ---
Subjective Patient is seen in follow-up for end-stage renal disease. She is maintained on hemodialysis on a Monday schedule via a permacath. Patient presented with dyspnea. She did undergo an extra treatment of hemodialysis due to volume overload. She does have history of moderate aortic stenosis as well as mitral regurgitation. She is currently being treated for MRSA pneumonia. Her dyspnea has improved. Denies cough. Oral intake is fair. Vital signs are stable. General: The patient appeared well nourished and normally developed. HEENT: Head exam is unremarkable. Neck is without jugular venous distension. LUNGS: Lungs are clear to auscultation and percussion. Breath sounds decreased. HEART: Rate and Rhythm are regular. First and second heart sounds normal. No murmurs, rubs or gallops. ABDOMEN: Abdominal exam reveals normal bowel sounds. Non-tender and non- distended. No evidence of peritonitis. EXTREMITITES: No clubbing, cyanosis, or edema. Objective - Vital Signs Vital signs: Vital Signs Temp 98 F 05/16/17 09:25 Pulse 78 05/16/17 09:25 Resp 20 05/16/17 09:25 BP 142/65 05/16/17 09:25 Pulse Ox 98 05/16/17 09:25 Intake & Output 05/15/17 05/16/17 05/16/17 18:59 06:59 18:59 Intake Total 1370 390 Output Total 2501 1 Balance -1131 389 Weight 98.5 kg Intake: IV 410 390 0.9 ns @ 20 160 320 Piperacillin-Tazobactam 3 70 .375 gm In Dextrose/Water 1 50ml.bag @ 12.5 mls/hr IVPB Q12HR [facility] Rx#: [id number] Vancomycin 1,500 mg In 250 Sodium Chloride 0.9% 250 ml @ 125 mls/hr IVPB ONCE ONE Rx#:[id number] Oral 960 Output: Urine 1 Stool 1 Other 2500 Other: Voiding Method Incontinent Incontinent # Voids 1 # Bowel Movements 1 - Labs CBC & Chem 7: 05/16/17 05:54 05/16/17 05:54 Labs: Abnormal Lab Results - Last 24 Hours (Table) 05/15/17 05/15/17 05/15/17 Range/Units 11:34 17:05 20:37 WBC (3.8-10.6) k/uL RBC (3.80-5.40) m/uL Hgb (11.4-16.0) gm/dL Hct (34.0-46.0) % RDW (11.5-15.5) % Neutrophils # (1.3-7.7) k/uL Sodium (137-145) mmol/L Chloride (98-107) mmol/L BUN (7-17) mg/dL Creatinine (0.52-1.04) mg/dL Glucose (74-99) mg/dL POC Glucose (mg/dL) 256 H 144 H 213 H (75-99) mg/dL Alkaline Phosphatase (38-126) U/L Albumin (3.5-5.0) g/dL 05/16/17 05/16/17 05/16/17 Range/Units 05:54 05:54 05:54 WBC 16.9 H (3.8-10.6) k/uL RBC 2.91 L (3.80-5.40) m/uL Hgb 8.8 L (11.4-16.0) gm/dL Hct 28.3 L (34.0-46.0) % RDW 15.7 H (11.5-15.5) % Neutrophils # 14.5 H (1.3-7.7) k/uL Sodium 128 L (137-145) mmol/L Chloride 93 L (98-107) mmol/L BUN 27 H (7-17) mg/dL Creatinine 3.10 H (0.52-1.04) mg/dL Glucose 141 H (74-99) mg/dL POC Glucose (mg/dL) 137 H (75-99) mg/dL Alkaline Phosphatase 164 H (38-126) U/L Albumin 2.8 L (3.5-5.0) g/dL Assessment and Plan Plan: Assessment: #1. End-stage renal disease maintained on hemodialysis on a Monday schedule via permacath. #2. Dyspnea related to fluid overload as well as pneumonia. #3. Diabetes mellitus. #4. Volume overload. Improving with ultrafiltration. #5. Anemia of chronic kidney disease maintained on Aranesp. #6. Diastolic CHF with moderate aortic stenosis and mitral regurgitation. #7. Hypertension with chronic kidney disease. Controlled. #8. MRSA pneumonia. #9. 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 Plan: Hemodialysis today with goal 3-4 L ultrafiltration. Antibiotics per infectious disease recommendations. Patient wishes to go home upon discharge.
[2017-05-16] MEDS: PIPERACILLIN-TAZOBACTAM 3.375 GM in DEXTROSE/WATER 1 50ML.BAG IVPB SCH (10:21)
[2017-05-16 11:42] LABS: Glucose,Whole Blood 231 mg/dL (75-99)
--- NOTE | 2017-05-16 13:49 | P.DS ---
Providers Date of admission: 05/05/17 06:50 Expected date of discharge: 05/16/17 Attending physician: Junie Dewey Consults: 05/05/17 06:51 Consult Physician Routine Consulting Provider: Nikos Macedo Consult Reason/Comments: chf Do you want consulting provider notified?: Yes Consult Physician Urgent Consulting Provider: Slim Lee Consult Reason/Comments: known Do you want consulting provider notified?: Yes 05/05/17 07:20 Consult Physician Urgent Consulting Provider: Mariam Botello Consult Reason/Comments: arf Do you want consulting provider notified?: Yes 05/06/17 15:02 Consult Physician Stat Consulting Provider: Margarette Obrien Consult Reason/Comments: positive blood cultures Do you want consulting provider notified?: Yes Primary care physician: Meghan Garcia [facility] Hospital Course: This is a 71-year-old female patient of Dr. Garcia with past medical history of atrial fibrillation, coronary artery disease status post myocardial infarction, has history of triple-vessel disease but was considered high risk for bypass, on conservative treatment,chronic diastolic heart failure , diabetes mellitus type 2, hyperlipidemia, hypertension, end-stage renal disease on hemodialysis, peripheral neuropathy.patient was recently hospitalized at [facility] in with significant shortness of breath, she was suggestive of pulmonary edema with acute kidney injury on CK D4 in the December 2016 patient was initiated on hemodialysis. Patient is doing well until 6 days ago when she started having flulike symptoms associated with postnasal drip and cough. She did see Dr. Garcia 2 days ago and was prescribed antibiotics with steroids, patient was unable to get the prescription for albuterol and was using an prescription. With no improvement of symptoms. Since she was very short of breath yesterday along with palpitations she decided to come to the ER. She has been afebrile since admission, tachycardic from 100-102 blood pressure is stable in 136/65 retreat of 28 on admission patient was desaturating to the 78 on room air and was placed on BiPAP, chest x-ray suggestive of pulmonary edema. No consolidation or atelectasis present. Lactic acid was greater than 4 on admission and improved to 1.8 on repeat checking. No fluid boluses was given because patient is in end-stage renal disease. Labs including a CBC is 34.2, hemoglobin 11.4 MCV 101, INR 1.1, BNP suggestive of creatinine at 2.84. BUN of 24. Troponin elevated 0.47. ProBNP 9700. Patient was initiated on levofloxacin and Zosyn. Pulmonary, cardiology and nephrology consult placed for acute hypoxic respiratory failure, increase troponin anemia and CHF exacerbation and possible dialysis today for pulmonary edema. 05/06: patient continued to be lethargic no major events reported by nursing staff patient is alert and oriented following commands denying chest pain shortness breath nausea vomiting abdominal pain dizziness or lightheadedness 05/07:Patient continued to be hemodynamically stable seems to be responding after switching to BiPAP by pulmonary. Patient is not responding at this point to Lasix as she is not having any improvement in her urine output and nursing staff asked if that's can be switched to different medication. Patient is denying chest pain nausea vomiting dizziness lightheadedness or blurry vision seems to be oriented and following commands. Patient's baseline that she is bedbound at home and stated that she is extremely weak at this point 05/08: Repeat chest x-ray shows findings could represent pulmonary edema, pneumonia, correlate. Consult with Dr. Obrien has been added with recommendations for blood cultures from the port and continue vancomycin and Zosyn. Patient has been afebrile. Pulse ox is 95% on BiPAP. White count has dropped to 15.6. Hemoglobin today is 8.8. Initial blood culture is positive for coag-negative staph and repeats obtained on May 06 are showing no growth at 24 hours. Sputum culture is in progress and urine culture has been finalized with no growth at 18 hours. Daughter is at the bedside. Patient complains of weakness, less shortness of breath. No appetite. She only ate few bites of oatmeal this morning. She is wheelchair bound. Patient continues to have fluid retention. 05/09: Patient is scheduled for dialysis today. She is normally Monday schedule. She is continued on IV Bumex 1 mg 3 times daily and cardiology increase Cardizem to 60 mg 3 times daily. Repeat blood cultures are all showing no growth at 48 or 24 hours. Sputum culture is presumptive staph aureus. Patient has been afebrile. Patient has been on BiPAP with pulse ox of 90% but has dropped to 79% on nasal cannula when this in place for patient to eat. Oral intake is down for which scheduled NovoLog will be discontinued and Levemir dose adjusted. Patient could benefit from CAT scan once she is stable. Eliquis will be resumed. 05/10: Patient has been on BiPAP or nasal cannula at 15 L and pulse oxing 91-93% . White count is at 17 and hemoglobin 8.4. Her blood glucose running between 73 and 217 with changes made yesterday to insulins. Sputum cultures positive for MRSA. Dr. Obrien has discontinued Zosyn and continued vancomycin. Patient to have repeat dialysis today. Patient has not had a bowel movement since admission and Colace changed to Senokot scheduled. 05/11: Dr. Obrien has recommended vancomycin for 2 weeks. Cardiology is following on an as-needed basis only. Her heart rate is currently controlled and she has been afebrile. She is currently on high flow nasal cannula at 15 L pulse oxing 93-98%. Breathing status is improving. Patient continues of constipation for which one dose of MiraLAX added. She may be able to participate with physical therapy today. 05/12: Patient is now on O2 nasal cannula at 10 L and pulse oxing 95-99%. She has been up to the side of the bed with physical therapy. She does complain of shortness of breath with minimal activity. She ate oatmeal muffin for breakfast she denies any abdominal pain but still has not had a bowel movement and Dulcolax suppository added. She is scheduled for hemodialysis tomorrow. Goal will be for oxygen at 6 L nasal cannula for discharge. Anticipate need for subacute rehab. Probable discharge on Monday. 05/13: Patient has been afebrile. She is now pulse oxing 93% on 6 L nasal cannula. Her breathing status continues to improve and she is now seen sitting up in a chair at the bedside. She is scheduled for dialysis today. Dr. Obrien is recommended 2 weeks of vancomycin with dialysis. PT has recommended either home with homecare or subacute rehab. Patient would like to go to [facility] will plan for discharge on Monday. 05/14: Patient is now on 3 L nasal cannula pulse oxing 95%. She has been afebrile. Heart rate is been running in the 50s and 60s. Patient is scheduled for dialysis for tomorrow. Regarding her ongoing constipation. She does state she had a little bowel movement this morning. Blood sugar was 60 this morning and her morning dose of Levemir will be discontinued and the nighttime dose of Levemir decreased from 40 units to 30 units. 05/15: Pulse ox is 97% on 3 L nasal cannula. Patient was planned for discharge today but she is very lethargic and does not want to get out of bed. Patient does not want to go to [facility] in is requesting to go home. We will ask for PT to reassess for safety at home. Patient is complaining of feeling a little nauseated. She still has not had a good bowel movement. Dulcolax suppository added and abdominal x-ray shows nonspecific abdomen. Bibasilar atelectasis or infiltrate. Blood pressures on the high side for which hydralazine added. 05/16: Patient has decided that she wants to return home. It was confirmed with her daughter that she was safe to return home. Prescription left for vancomycin for Dr. Obrien. Nebulizer prescription and medications the left to set up for home. Patient has had a bowel movement. Patient will be discharged home today in stable condition. Discharge diagnoses: 1. Acute hypoxic respiratory failure secondary to acute on chronic diastolic heart failure, COPD exacerbation, MRSA pneumonia, possible bacteremia ruled out. Moderate aortic stenosis. 2. Severe sepsis secondary to MRSA pneumonia. 3. End-stage renal disease on hemodialysis with pulmonary edema 4. Hypertension. 5. Paroxysmal atrial fibrillation. 6. Morbid obesity with BMI of 39. 7. Troponinemia -history of coronary artery disease. Acute coronary syndrome ruled out by cardiology 8. Diabetes mellitus type 2. 9. GERD. 10. Hypertension, hypertensive cardiovascular disease. 11. History of myocardial infarction and coronary artery disease. 12. Hyperlipidemia. 13. Diabetic peripheral neuropathy and neuropathy secondary to chronic back pain. 14. Depression, recurrent. 15. Thrush. Nystatin, Diflucan. Discharge plan: Home with home care. Impression and plan of care have been directed as dictated by the signing physician. Jessenia Gonzalez nurse practitioner acting as scribe for signing physician. Patient Condition at Discharge: Good Plan - Discharge Summary Discharge Rx Participant: No New Discharge Prescriptions: New Diltiazem Oral [Cardizem*] 60 mg PO TID #90 tab Polyethylene Glycol 3350 [Miralax] 17 gm PO DAILY #30 powd.pack Sennosides-Docusate Sodium [Senokot-S] 2 each PO BID tab Sevelamer [Renvela] 800 mg PO TID-W/MEALS #90 tab Vancomycin 1,000 mg IVPB TUTHSA #6 bag hydrALAZINE HCL [Apresoline] 50 mg PO BID #60 tab Continue DULoxetine HCL [Cymbalta] 60 mg PO DAILY Fish Oil/Dha/Epa [Fish Oil 1,200 mg Fish Oil] 1 cap PO MOWEFR Amiodarone HCl [Pacerone] 100 mg PO DAILY Apixaban [Eliquis] 2.5 mg PO BID Aspirin EC [Ecotrin Low Dose] 81 mg PO DAILY Docusate [Colace] 100 mg PO BID Ezetimibe [Zetia] 10 mg PO DAILY Isosorbide Mononitrate ER [Imdur] 30 mg PO DAILY Gabapentin [Neurontin] 300 mg PO BID #60 capsule Omeprazole 20 mg PO DAILY Cranberry 4200mg-Vitamin C 1 tab PO BID Cholecalciferol (Vitamin D3) [Vitamin D3] 2,000 unit PO DAILY Furosemide [Lasix] 80 mg PO BID@0900,1600 tab Magnesium Oxide [Mag-Ox] 250 mg PO DAILY Ferrous Sulfate [Iron (65 MG Elemental)] 325 mg PO DAILY Metoprolol Succinate (ER) [Toprol XL] 100 mg PO DAILY Insulin Aspart [NovoLOG (formulary)] See Protocol SQ AC-TID Ipratropium-Albuterol Nebulize [Duoneb 0.5 mg-3 mg/3 ml Soln] 3 ml INHALATION RT-QID PRN #120 neb PRN Reason: Wheezing Changed Insulin Aspart [NovoLOG (formulary)] 5 unit SQ AC-TID #0 Insulin Glargine [Lantus] 30 unit SQ HS #0 Discontinued Cetirizine HCl [Zyrtec] 10 mg PO DAILY Insulin Glargine [Lantus] 30 unit SQ QAM NIFEdipine [NIFEdipine ER] 30 mg PO DAILY Discharge Medication List DULoxetine HCL [Cymbalta] 60 mg PO DAILY 08/04/14 [History] Fish Oil/Dha/Epa [Fish Oil 1,200 mg Fish Oil] 1 cap PO MOWEFR 08/04/14 [History] Amiodarone HCl [Pacerone] 100 mg PO DAILY 11/22/15 [History] Apixaban [Eliquis] 2.5 mg PO BID 11/22/15 [History] Aspirin EC [Ecotrin Low Dose] 81 mg PO DAILY 11/22/15 [History] Docusate [Colace] 100 mg PO BID 11/22/15 [History] Ezetimibe [Zetia] 10 mg PO DAILY 11/22/15 [History] Isosorbide Mononitrate ER [Imdur] 30 mg PO DAILY 11/22/15 [History] Gabapentin [Neurontin] 300 mg PO BID #60 capsule 11/27/15 [Rx] Cranberry 4200mg-Vitamin C 1 tab PO BID 12/25/16 [History] Omeprazole 20 mg PO DAILY 12/25/16 [History] Cholecalciferol (Vitamin D3) [Vitamin D3] 2,000 unit PO DAILY 12/31/16 [History] Furosemide [Lasix] 80 mg PO BID@0900,1600 tab 01/13/17 [Rx] Ferrous Sulfate [Iron (65 MG Elemental)] 325 mg PO DAILY 05/05/17 [History] Insulin Aspart [NovoLOG (formulary)] See Protocol SQ AC-TID 05/05/17 [History] Magnesium Oxide [Mag-Ox] 250 mg PO DAILY 05/05/17 [History] Metoprolol Succinate (ER) [Toprol XL] 100 mg PO DAILY 05/05/17 [History] Diltiazem Oral [Cardizem*] 60 mg PO TID #90 tab 05/15/17 [Rx] Insulin Aspart [NovoLOG (formulary)] 5 unit SQ AC-TID #0 05/15/17 [Rx] Insulin Glargine [Lantus] 30 unit SQ HS #0 05/15/17 [Rx] Polyethylene Glycol 3350 [Miralax] 17 gm PO DAILY #30 powd.pack 05/15/17 [Rx] Sennosides-Docusate Sodium [Senokot-S] 2 each PO BID tab 05/15/17 [Rx] Sevelamer [Renvela] 800 mg PO TID-W/MEALS #90 tab 05/15/17 [Rx] Ipratropium-Albuterol Nebulize [Duoneb 0.5 mg-3 mg/3 ml Soln] 3 ml INHALATION RT -QID PRN #120 neb 05/16/17 [Rx] Vancomycin 1,000 mg IVPB TUTHSA #6 bag 05/16/17 [Rx] hydrALAZINE HCL [Apresoline] 50 mg PO BID #60 tab 05/16/17 [Rx] Follow up Appointment(s)/Referral(s): Meghan Garcia MD [Primary Care Provider] - 1-2 days Margarette Obrien MD [STAFF PHYSICIAN] - 1 Week Carolina Hanson MD [STAFF PHYSICIAN] - 1 Week [facility] Nurse, [NON-STAFF] - Ambulatory/Diagnostic Orders: Basic Metabolic Panel [LAB.AMB] Location: Determined By Patient Complete Blood Count w/diff [LAB.AMB] Location: Determined By Patient Vancomycin,Trough [LAB.AMB] Location: Determined By Patient Patient Instructions/Handouts: Pulmonary Edema (DC), MRSA (Methicillin- Resistant Staphylococcus Aureus) (DC), COPD (Chronic Obstructive Pulmonary Disease) (DC) Activity/Diet/Wound Care/Special Instructions: Nebulizer and Oxygen ordered through [facility]: #[phone] Discharge Disposition: HOME WITH HOME HEALTH SERVICES
[2017-05-16] MEDS: IPRATROPIUM-ALBUTEROL 3 ML NEB INHALATION PRN (14:12)
--- NOTE | 2017-05-16 15:15 | PN ---
PROGRESS NOTE DATE OF SERVICE: 05/16/2017 REASON FOR FOLLOWUP: MRSA pneumonia and persistent elevated white count. INTERVAL HISTORY: The patient is afebrile. She seems to be more awake, alert today. She is breathing comfortably. the cough has decreased in intensity and is mostly dry in nature now. The patient denies any abdominal pain and no nausea, vomiting. Did have a bowel movement. PHYSICAL EXAMINATION: Blood pressure 159/66 with pulse of 77, temperature of 96.4, she has a 91% on room air. General description is an elderly female lying in bed, in no distress. RESPIRATORY SYSTEM: Unlabored breathing with decreased breath sounds in the bases, no wheeze. HEART: S1, S2. Regular rate and rhythm.. ABDOMEN: Soft, no tenderness. LABS: Hemoglobin 8.8, white count 16.9, BUN of 27, creatinine 3.10. She did have a CT abdomen and pelvis yesterday which did show minimal thickening of the rectum, but no other abnormality. DIAGNOSTIC IMPRESSION AND PLAN: 1. Patient with methicillin-resistant Staphylococcus aureus pneumonia for which the patient seems to be responding to the vancomycin as her respiratory status has improved. Currently not requiring any oxygen. The patient will be continued on vancomycin, pharmacy to dose through the dialysis for another 2 weeks to finish a course of therapy. 2. Patient did have persistent elevated white count. No other clinical focus of infection. CT abdomen and pelvis grossly normal. She will be getting a Diflucan for her possible oropharyngeal candidiasis. Recommend watching his white count closely in the outpatient setting. Continue supportive care. MMODL / IJN: [id number] /
[2017-05-16 15:30] VITALS: RESP 16; TEMP 97
[2017-05-16 16:28] VITALS: BP 139/81
[2017-05-16] MEDS: MAGNESIUM OXIDE 400 MG TAB PO SCH (16:37)
[2017-05-16] MEDS: ASPIRIN 81 MG PO SCH (16:38)
[2017-05-16] MEDS: AMIODARONE 100 MG TAB PO SCH (16:39)
[2017-05-16] MEDS: hydrALAZINE HCL 50 MG TAB PO SCH (16:39)
[2017-05-16] MEDS: DILTIAZEM ORAL 60 MG TAB PO SCH ×2 (16:39→16:40)
[2017-05-16] MEDS: BUMETANIDE 0.25 MG/ML 4 ML VIAL IVP SCH ×2 (16:39→16:40)
[2017-05-16 16:40] VITALS: PULSE 80
[2017-05-16] MEDS: ISOSORBIDE MONONITRATE ER 30 MG TAB.ER.24H PO SCH (16:40)
[2017-05-16 16:41] LABS: Glucose,Whole Blood 136 mg/dL (75-99)
[2017-05-16] MEDS: METOPROLOL SUCCINATE (ER) 100 MG TAB.ER.24H PO SCH (16:41)
== END 2017-05-16 17:44 | disposition home health service (06) | DRG 871 ==
LOC: EC 06:16 → 6ICU 06:50 → 6SEL 08:48
PROVIDERS: ADMIT Internal Medicine; ATTEND Internal Medicine
PROC: 5A1D70Z Performance of Urinary Filtration, Intermittent, Less than 6 Hours Per Day (ICD-10-PCS; principal; 2017-05-06)
DX: A41.02 Sepsis due to Methicillin resistant Staphylococcus aureus (principal); N18.6 End stage renal disease; J96.01 Acute respiratory failure with hypoxia; I13.2 Hypertensive heart and chronic kidney disease with heart failure and with stage 5 chronic kidney disease, or end stage renal disease; J15.212 Pneumonia due to Methicillin resistant Staphylococcus aureus; N17.9 Acute kidney failure, unspecified; E11.21 Type 2 diabetes mellitus with diabetic nephropathy; I48.0 Paroxysmal atrial fibrillation; B37.0 Candidal stomatitis; I50.33 Acute on chronic diastolic (congestive) heart failure; I45.2 Bifascicular block; J44.0 Chronic obstructive pulmonary disease with (acute) lower respiratory infection; J44.1 Chronic obstructive pulmonary disease with (acute) exacerbation; E11.42 Type 2 diabetes mellitus with diabetic polyneuropathy; E11.22 Type 2 diabetes mellitus with diabetic chronic kidney disease; E66.01 Morbid (severe) obesity due to excess calories; D63.1 Anemia in chronic kidney disease; R65.20 Severe sepsis without septic shock; E78.5 Hyperlipidemia, unspecified; I08.0 Rheumatic disorders of both mitral and aortic valves; K21.9 Gastro-esophageal reflux disease without esophagitis; F32.9 Major depressive disorder, single episode, unspecified; G47.33 Obstructive sleep apnea (adult) (pediatric); I25.10 Atherosclerotic heart disease of native coronary artery without angina pectoris; K59.00 Constipation, unspecified; G89.29 Other chronic pain; M89.9 Disorder of bone, unspecified; M54.9 Dorsalgia, unspecified; F41.9 Anxiety disorder, unspecified; I25.2 Old myocardial infarction; Z68.39 Body mass index [BMI] 39.0-39.9, adult; Z90.49 Acquired absence of other specified parts of digestive tract; Z90.710 Acquired absence of both cervix and uterus; Z98.1 Arthrodesis status; Z98.41 Cataract extraction status, right eye; Z98.42 Cataract extraction status, left eye; Z96.1 Presence of intraocular lens; Z99.2 Dependence on renal dialysis; Z79.01 Long term (current) use of anticoagulants; Z79.82 Long term (current) use of aspirin; Z79.4 Long term (current) use of insulin; Z79.899 Other long term (current) drug therapy; Z88.1 Allergy status to other antibiotic agents; Z88.8 Allergy status to other drugs, medicaments and biological substances; Z99.3 Dependence on wheelchair; Z74.01 Bed confinement status
CPT/HCPCS: 36415; 71045; 71046; 74019; 74176; 80048; 80053; 80202; 81001; 82550; 82553; 82728; 83036; 83540; 83550; 83605; 83735; 83880; 84100; 84484; 85025; 85027; 85610; 85730; 87040; 87070; 87077; 87086; 87186; 87205; 87340; 87502; 90935; 93005; 93306; 94640; 94660; 94760; 96365; 96366; 96368; 96375; 99291

== ENCOUNTER 2017-08-15 22:38 | Inpatient (IN) | payer MEDICARE ==
[2017-08-16 06:06] LABS: Partial Thromboplastin Time 25.5 sec (22.0-30.0); Prothrombin Time 10.1 sec (9.0-12.0)
[2017-08-16 06:12] LABS: Albumin 3.5 g/dL (3.5-5.0); Calcium 8.8 mg/dL (8.4-10.2); Magnesium 2.2 mg/dL (1.6-2.3); Phosphorus 3.1 mg/dL (2.5-4.5); Potassium 5.3 mmol/L (3.5-5.1); Total Bilirubin 0.8 mg/dL (0.2-1.3); Total Protein 6.8 g/dL (6.3-8.2)
[2017-08-16 06:14] LABS: Creatine Kinase 36 U/L (30-135); Creatine Kinase MB 1.3 ng/mL (0.0-2.4); Troponin I <0.012 ng/mL (0.000-0.034)
[2017-08-16 06:19] LABS: Anisocytosis Slight; Basophils # (A) 0.1 k/uL (0-0.2); Basophils % (A) 1 %; Eosinophils # (A) 0.3 k/uL (0-0.7); Eosinophils % (A) 3 %; HCT 32.6 % (34.0-46.0); HGB 10.7 gm/dL (11.4-16.0); Lymphocytes # (A) 1.6 k/uL (1.0-4.8); Lymphocytes % (A) 16 %; MCH 31.2 pg (25.0-35.0); MCHC 32.8 g/dL (31.0-37.0); MCV 95.2 fL (80.0-100.0); Mean Platelet Volume 8.6; Monocytes # (A) 0.6 k/uL (0-1.0); Monocytes % (A) 5 %; Neutrophils # (A) 7.7 k/uL (1.3-7.7); Neutrophils % (A) 74 %; Platelet Count 221 k/uL (150-450); RBC 3.43 m/uL (3.80-5.40); WBC 10.4 k/uL (3.8-10.6)
[2017-08-16] MEDS ORDERED: SODIUM CHLORIDE 0.9% 1,000 ML BAG ONE (09:00)
--- NOTE | 2017-08-16 11:10 | P.NPCON ---
History of Present Illness - Reason for Consult end stage renal disease - History of Present Illness Reason for consultation: End-stage renal disease History of present illness: Patient is a 71-year-old female seen in renal consultation for end-stage renal disease. She is maintained on hemodialysis on a Monday schedule via right chest permacath. She has a maturing left upper extremity AV fistula as well. Patient presented to the hospital with chest pain. Patient states she was resting yesterday evening and suddenly developed sharp left- sided chest pain which was radiating down to her left arm as well as her jaw. Patient does have history of diastolic CHF with moderate aortic stenosis and mitral regurgitation. She states her last hemodialysis was yesterday. Hemodynamically she stable. Denies any vomiting or diarrhea. Denies shortness of breath. Oral intake is good. No active complaints at this time. Vital signs are stable. General: The patient appeared well nourished and normally developed. HEENT: Head exam is unremarkable. Neck is without jugular venous distension. LUNGS: Lungs are clear to auscultation and percussion. Breath sounds decreased. HEART: Rate and Rhythm are regular. First and second heart sounds normal. No murmurs, rubs or gallops. ABDOMEN: Abdominal exam reveals normal bowel sounds. Non-tender and non- distended. No evidence of peritonitis. EXTREMITITES: No clubbing, cyanosis, or edema. Past Medical History Past Medical History: Atrial Fibrillation, Coronary Artery Disease (CAD), Heart Failure, Diabetes Mellitus, GERD/Reflux, Hyperlipidemia, Hypertension, Myocardial Infarction ([place]), Pneumonia, Renal Disease, Skin Disorder, Sleep Apnea /CPAP/BIPAP Additional Past Medical History / Comment(s): possible sleep apnea, no established diagnosis; chronic kidney disease diangosed may 2015; aortic stenois ; peripheral neuropathy upper and lower extremity Last Myocardial Infarction Date:: 05/28/2015 History of Any Multi-Drug Resistant Organisms: MRSA Date of last positivie culture/infection: 05/07/17 MDRO Source:: sputum Past Surgical History: Back Surgery, Cholecystectomy, Heart Catheterization, Hysterectomy Additional Past Surgical History / Comment(s): Lumbar surgery with decompression off L3-L4 L4-L5 with fusion March 2011 with previous hardware failure L4-L5 and extension of fusion to S1. new back sugery including t8 and t9 Past Anesthesia/Blood Transfusion Reactions: No Reported Reaction Additional Past Anesthesia/Blood Transfusion Reaction / Comment(s): Possible confusion that resolved. Past Psychological History: Anxiety, Depression Additional Psychological History / Comment(s): Pt's rachel resides with her. Pt is wheelchair bound. She can transfer herself into wheelchair and onto toilet. Daughter organizes her medications. Smoking Status: Never smoker Past Alcohol Use History: None Reported Past Drug Use History: None Reported - Past Family History Father Additional Family Medical History / Comment(s): Brain aneurysm ; age 72 Sister(s) Family Medical History: Hypertension Additional Family Medical History / Comment(s): Aortic stenosis; mitral valve disease Mother Family Medical History: AFIB, CVA/TIA, Hypertension Additional Family Medical History / Comment(s): mother age 83 Daughter(s) Family Medical History: Asthma Son(s) Family Medical History: Asthma Medications and Allergies Home Medications Medication Instructions Recorded Confirmed Type DULoxetine HCL [Cymbalta] 60 mg PO DAILY 08/04/14 08/16/17 History Fish Oil/Dha/Epa [Fish Oil 1,200 1 cap PO MOWEFR 08/04/14 08/16/17 History mg Fish Oil] Amiodarone HCl [Pacerone] 100 mg PO DAILY 11/22/15 08/16/17 History Apixaban [Eliquis] 2.5 mg PO BID 11/22/15 08/16/17 History Aspirin EC [Ecotrin Low Dose] 81 mg PO DAILY 11/22/15 08/16/17 History Docusate [Colace] 100 mg PO BID 11/22/15 08/16/17 History Ezetimibe [Zetia] 10 mg PO DAILY 11/22/15 08/16/17 History Isosorbide Mononitrate ER [Imdur] 30 mg PO DAILY 11/22/15 08/16/17 History Gabapentin [Neurontin] 300 mg PO BID #60 capsule 11/27/15 08/16/17 Rx Cranberry 4200mg-Vitamin C 1 tab PO BID 12/25/16 08/16/17 History Omeprazole 20 mg PO DAILY 12/25/16 08/16/17 History Cholecalciferol (Vitamin D3) 2,000 unit PO DAILY 12/31/16 08/16/17 History [Vitamin D3] Furosemide [Lasix] 80 mg PO BID@0900,1600 tab 01/13/17 08/16/17 Rx Ferrous Sulfate [Iron (65 MG 325 mg PO DAILY 05/05/17 08/16/17 History Elemental)] Insulin Aspart [NovoLOG See Protocol SQ AC-TID 05/05/17 08/16/17 History (formulary)] Magnesium Oxide [Mag-Ox] 250 mg PO DAILY 05/05/17 08/16/17 History Metoprolol Succinate (ER) [Toprol 100 mg PO DAILY 05/05/17 08/16/17 History XL] Insulin Glargine [Lantus] 30 unit SQ HS #0 05/15/17 08/16/17 Rx Sevelamer [Renvela] 800 mg PO TID-W/MEALS #90 tab 05/15/17 08/16/17 Rx Cetirizine HCl [Zyrtec] 10 mg PO DAILY 08/16/17 08/16/17 History Diltiazem Oral [Cardizem Oral] 30 mg PO TID 08/16/17 08/16/17 History Insulin Aspart [NovoLOG 10 unit SQ AC-TID 08/16/17 08/16/17 History (formulary)] Insulin Glargine [Lantus] 35 unit SQ AC-BRKFST 08/16/17 08/16/17 History Allergies Allergy/AdvReac Type Severity Reaction Status Date / Time KUSHAL Inhibitors Allergy Swelling Verified 08/16/17 09:22 ARB-Angiotensin Receptor Allergy Swelling Verified 08/16/17 09:22 Antagonist cephalexin monohydrate Allergy Rash/Hives Verified 08/16/17 09:22 [From Keflex] propoxyphene HCl AdvReac Hallucinati Verified 08/16/17 09:22 [From Darvon] ons Razmyfk-Hqk-Hux Reductase AdvReac Myalgia Verified 08/16/17 09:22 Inhibitor Physical Exam Vitals: Vital Signs Temp Pulse Resp BP Pulse Ox 08/16/17 08:00 97.2 F L 94 18 182/79 99 08/16/17 06:06 18 08/16/17 05:52 97.4 F L 80 18 137/60 98 Intake and Output 08/15/17 08/16/17 08/16/17 22:59 06:59 14:59 Other: Voiding Method Bedside Commode Bedside Commode Incontinent Incontinent # Voids 0 Weight 92.5 kg Results - Lab Results Most recent lab results Calcium 8.8 mg/dL (8.4-10.2) 08/15/17 23:30 Phosphorus 3.1 mg/dL (2.5-4.5) 08/15/17 23:30 Magnesium 2.2 mg/dL (1.6-2.3) 08/15/17 23:30 08/15/17 23:30 08/15/17 23:30 Assessment and Plan Plan: Assessment: #1. End-stage renal disease maintained on hemodialysis on a Monday schedule via right chest permacath. She does have a maturing left upper extremity AV fistula. #2. Chest pain. Rule out cardiac etiology. #3. History of diastolic CHF with moderate aortic stenosis and mitral regurgitation. #4. 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 #5. Hypertension with chronic kidney disease. #6. Insulin dependent diabetes mellitus. Plan: Hemodialysis tomorrow with goal 3 L ultrafiltration. Maintain current antihypertensives, including Lasix. Check potassium level today. Await cardiology recommendations. Thank you for the consultation. I will continue to follow the patient with you during her hospital stay.
[2017-08-16 11:37] LABS: Glucose,Whole Blood 125 mg/dL (75-99)
[2017-08-16] MEDS: SEVELAMER 800 MG TAB PO SCH ×2 (12:15→16:25)
[2017-08-16] MEDS: INSULIN ASPART 100 UNIT/ML 1 ML 10 ML VIAL SQ SCH ×2 (12:15→18:54)
--- NOTE | 2017-08-16 12:48 | XR ---
EXAMINATION TYPE: XR chest 2V DATE OF EXAM: 08/16/2017 COMPARISON: To 918 HISTORY: Chest pain TECHNIQUE: Frontal and lateral views of the chest are obtained. FINDINGS: There is coarsening of pulmonary interstitial markings. There is no heart failure. There i s right central venous catheter with the tip in the right atrium. There are chest leads. There is no sign of pleural effusion. There is posterior fusion surgery in the lower thoracic and upper lumbar sp ine. IMPRESSION: Mild pulmonary fibrotic changes. No acute lung disease. No change compared to last exam.
--- NOTE | 2017-08-16 13:36 | P.PN ---
Progress Note - Text This is an addendum to the dictated cardiology consultation. The patient has a known history of CAD, post cardiac catheterization done in the past and CABG was recommended but the patient declined. She presents with left-sided chest discomfort, radiating to the left arm, at rest. Patient has end-stage renal disease, and active and has chronic dyspnea on exertion. She has a history of paroxysmal atrial fibrillation, hypertension, diabetes and hyperlipidemia who has been intolerant statin. She is pain-free at this time and her EKG shows no acute changes. She is in sinus mechanism. Her physical examination her lungs are clear and she has a systolic ejection murmur 2/6 mid peaking. She has no significant peripheral edema. I discussed with the patient the findings including the option of proceeding with coronary angiography to further assess her status. She does not want to have any surgical intervention and may be interested in percutaneous intervention but is quite concerned about receiving any dye injection. At this time she would like to continue medical therapy and she will discuss the case with her daughter and let me know. I would increase the dose of her nitrate, we will hold anticoagulation for 24 hours in case she decides to proceed with cardiac catheterization. An echocardiogram with Doppler will be obtained. Thank you for this consult we will follow with you.
--- NOTE | 2017-08-16 13:39 | P.CRDCN ---
History of Present Illness Consult date: 08/16/17 Requesting physician: Mary Colvin Consult reason: chest pain Chief complaint: Chest pain History of present illness: This is a pleasant 71-year-old female with history of hypertension, diabetes, hyperlipidemia, end-stage renal disease on hemodialysis, coronary artery disease, patient states she had a myocardial infarction in 2015, she was on [facility] at that time, underwent cardiac catheterization and was told to have multivessel coronary artery disease and was referred for surgery. According to the patient she refused having any surgery performed and opted for medical therapy alone. She presents to the hospital on this occasion with symptoms of left-sided chest discomfort with radiation down her left arm and into her jaw. She did have some mild diaphoresis and nausea, states that the symptoms lasted until she arrived here. Chest x-ray on arrival showed mild pulmonary fibrotic changes with no acute lung disease. Blood pressure on arrival 137/60 with a heart rate in the 80s 98% on 2 L of oxygen. White blood cell count 10.4, hemoglobin 10.7, platelet count 221. Sodium 135, potassium 4.6 , BUN 25, creatinine 3.0, magnesium 2.2, Trop .012, .105. EKG on presentation here showed a sinus tachycardia with a right bundle branch block pattern nonspecific ST-T wave changes. At the time of my examination this afternoon, patient denies any further chest discomfort. Past Medical History Past Medical History: Atrial Fibrillation, Coronary Artery Disease (CAD), Heart Failure, Diabetes Mellitus, GERD/Reflux, Hyperlipidemia, Hypertension, Myocardial Infarction ([place]), Pneumonia, Renal Disease, Skin Disorder, Sleep Apnea /CPAP/BIPAP Additional Past Medical History / Comment(s): possible sleep apnea, no established diagnosis; chronic kidney disease diangosed may 2015; aortic stenois ; peripheral neuropathy upper and lower extremity Last Myocardial Infarction Date:: 05/28/2015 History of Any Multi-Drug Resistant Organisms: MRSA Date of last positivie culture/infection: 05/07/17 MDRO Source:: sputum Past Surgical History: Back Surgery, Cholecystectomy, Heart Catheterization, Hysterectomy Additional Past Surgical History / Comment(s): Lumbar surgery with decompression off L3-L4 L4-L5 with fusion March 2011 with previous hardware failure L4-L5 and extension of fusion to S1. new back sugery including t8 and t9 Past Anesthesia/Blood Transfusion Reactions: No Reported Reaction Additional Past Anesthesia/Blood Transfusion Reaction / Comment(s): Possible confusion that resolved. Past Psychological History: Anxiety, Depression Additional Psychological History / Comment(s): Pt's rachel resides with her. Pt is wheelchair bound. She can transfer herself into wheelchair and onto toilet. Daughter organizes her medications. Smoking Status: Never smoker Past Alcohol Use History: None Reported Past Drug Use History: None Reported - Past Family History Father Additional Family Medical History / Comment(s): Brain aneurysm ; age 72 Sister(s) Family Medical History: Hypertension Additional Family Medical History / Comment(s): Aortic stenosis; mitral valve disease Mother Family Medical History: AFIB, CVA/TIA, Hypertension Additional Family Medical History / Comment(s): mother age 83 Daughter(s) Family Medical History: Asthma Son(s) Family Medical History: Asthma Medications and Allergies Home Medications Medication Instructions Recorded Confirmed Type DULoxetine HCL [Cymbalta] 60 mg PO DAILY 08/04/14 08/16/17 History Fish Oil/Dha/Epa [Fish Oil 1,200 1 cap PO MOWEFR 08/04/14 08/16/17 History mg Fish Oil] Amiodarone HCl [Pacerone] 100 mg PO DAILY 11/22/15 08/16/17 History Apixaban [Eliquis] 2.5 mg PO BID 11/22/15 08/16/17 History Aspirin EC [Ecotrin Low Dose] 81 mg PO DAILY 11/22/15 08/16/17 History Docusate [Colace] 100 mg PO BID 11/22/15 08/16/17 History Ezetimibe [Zetia] 10 mg PO DAILY 11/22/15 08/16/17 History Isosorbide Mononitrate ER [Imdur] 30 mg PO DAILY 11/22/15 08/16/17 History Gabapentin [Neurontin] 300 mg PO BID #60 capsule 11/27/15 08/16/17 Rx Cranberry 4200mg-Vitamin C 1 tab PO BID 12/25/16 08/16/17 History Omeprazole 20 mg PO DAILY 12/25/16 08/16/17 History Cholecalciferol (Vitamin D3) 2,000 unit PO DAILY 12/31/16 08/16/17 History [Vitamin D3] Furosemide [Lasix] 80 mg PO BID@0900,1600 tab 01/13/17 08/16/17 Rx Ferrous Sulfate [Iron (65 MG 325 mg PO DAILY 05/05/17 08/16/17 History Elemental)] Insulin Aspart [NovoLOG See Protocol SQ AC-TID 05/05/17 08/16/17 History (formulary)] Magnesium Oxide [Mag-Ox] 250 mg PO DAILY 05/05/17 08/16/17 History Metoprolol Succinate (ER) [Toprol 100 mg PO DAILY 05/05/17 08/16/17 History XL] Insulin Glargine [Lantus] 30 unit SQ HS #0 05/15/17 08/16/17 Rx Sevelamer [Renvela] 800 mg PO TID-W/MEALS #90 tab 05/15/17 08/16/17 Rx Cetirizine HCl [Zyrtec] 10 mg PO DAILY 08/16/17 08/16/17 History Diltiazem Oral [Cardizem Oral] 30 mg PO TID 08/16/17 08/16/17 History Insulin Aspart [NovoLOG 10 unit SQ AC-TID 08/16/17 08/16/17 History (formulary)] Insulin Glargine [Lantus] 35 unit SQ AC-BRKFST 08/16/17 08/16/17 History Allergies Allergy/AdvReac Type Severity Reaction Status Date / Time KUSHAL Inhibitors Allergy Swelling Verified 08/16/17 09:22 ARB-Angiotensin Receptor Allergy Swelling Verified 08/16/17 09:22 Antagonist cephalexin monohydrate Allergy Rash/Hives Verified 08/16/17 09:22 [From Keflex] propoxyphene HCl AdvReac Hallucinati Verified 08/16/17 09:22 [From Darvon] ons Byfjnsr-Riq-Vui Reductase AdvReac Myalgia Verified 08/16/17 09:22 Inhibitor Physical Exam Vitals: Vital Signs Temp Pulse Resp BP Pulse Ox 08/16/17 12:00 97.6 F 100 18 143/60 98 08/16/17 08:00 97.2 F L 94 18 182/79 99 08/16/17 06:06 18 08/16/17 05:52 97.4 F L 80 18 137/60 98 Intake and Output 04/17/18 04/18/18 04/18/18 22:59 06:59 14:59 Intake Total 120 Balance 120 Intake: Oral 120 Other: Voiding Method Bedside Commode Bedside Commode Incontinent Incontinent # Voids 0 Weight 92.5 kg PHYSICAL EXAMINATION: HEENT: Head is atraumatic, normocephalic. Pupils equal, round. Neck is supple. There is no elevated jugular venous pressure. HEART EXAMINATION: Heart S1 and S2 systolic murmur is heard. CHEST EXAMINATION: Lungs are clear to auscultation and precussion. No chest wall tenderness is noted on palpation or with deep breathing. ABDOMEN: Soft,obese, nontender. Bowel sounds are heard. No organomegaly noted. EXTREMITIES: 2+ peripheral pulses with trace evidence of peripheral edema and no calf tenderness noted. NEUROLOGIC patient is awake, alert and oriented -3. . Results 08/15/17 23:30 08/16/17 11:21 Cardiac Enzymes 08/15/17 08/15/17 08/16/17 Range/Units 23:30 23:30 11:21 AST 39 H (14-36) U/L CK-MB (CK-2) 1.3 (0.0-2.4) ng/mL Troponin I <0.012 0.105 H* (0.000-0.034) ng/mL Coagulation 08/15/17 Range/Units 23:30 PT 10.1 (9.0-12.0) sec APTT 25.5 (22.0-30.0) sec CBC 08/15/17 Range/Units 23:30 WBC 10.4 (3.8-10.6) k/uL RBC 3.43 L (3.80-5.40) m/uL Hgb 10.7 L (11.4-16.0) gm/dL Hct 32.6 L (34.0-46.0) % Plt Count 221 (150-450) k/uL Comprehensive Metabolic Panel 08/15/17 08/16/17 Range/Units 23:30 11:21 Sodium 135 L (137-145) mmol/L Potassium 5.3 H 4.6 (3.5-5.1) mmol/L Chloride 93 L (98-107) mmol/L Carbon Dioxide 27 (22-30) mmol/L BUN 25 H (7-17) mg/dL Creatinine 3.00 H (0.52-1.04) mg/dL Glucose 250 H (74-99) mg/dL Calcium 8.8 (8.4-10.2) mg/dL AST 39 H (14-36) U/L ALT 29 (9-52) U/L Alkaline Phosphatase 176 H (38-126) U/L Total Protein 6.8 (6.3-8.2) g/dL Albumin 3.5 (3.5-5.0) g/dL Current Medications Generic Name Dose Route Start Last Admin Trade Name Fregal PRN Reason Stop Dose Admin Amiodarone HCl 100 mg 08/17/17 09:00 Cordarone PO DAILY [facility] Aspirin 81 mg 08/17/17 09:00 Aspirin PO DAILY [facility] Diltiazem HCl 30 mg 08/16/17 16:00 Cardizem Oral PO TID [facility] Docusate Sodium 100 mg 08/16/17 21:00 Colace PO BID [facility] Duloxetine HCl 60 mg 08/17/17 09:00 Cymbalta PO DAILY [facility] Ezetimibe 10 mg 08/17/17 09:00 Zetia PO DAILY [facility] Ferrous Sulfate 325 mg 08/17/17 12:00 Feosol PO 1200 [facility] Furosemide 80 mg 08/16/17 16:00 Lasix PO BID@0900,1600 [facility] Gabapentin 300 mg 08/16/17 21:00 Neurontin PO BID [facility] Insulin Aspart 10 unit 08/16/17 12:30 08/16/17 12:15 Novolog SQ Not Given AC-TID [facility] Insulin Detemir 30 unit 08/16/17 21:00 Levemir SQ HS [facility] Isosorbide Mononitrate 30 mg 08/17/17 09:00 Imdur PO DAILY [facility] Loratadine 10 mg 08/17/17 09:00 Claritin PO DAILY [facility] Magnesium Oxide 400 mg 08/17/17 12:00 Mag-Ox PO 1200 [facility] Metoprolol Succinate 100 mg 08/17/17 09:00 Toprol Xl PO DAILY [facility] Pantoprazole Sodium 40 mg 08/17/17 07:30 Protonix PO AC-BRKFST [facility] Sevelamer Carbonate 800 mg 08/16/17 12:30 08/16/17 12:15 Renvela PO 800 mg TID-W/MEALS [facility] Administration Intake and Output 08/15/17 08/16/17 08/16/17 22:59 06:59 14:59 Intake Total 120 Balance 120 Intake: Oral 120 Other: Voiding Method Bedside Commode Bedside Commode Incontinent Incontinent # Voids 0 Weight 92.5 kg 08/15/17 23:30 08/16/17 11:21 EKG Interpretations (text) EKG shows a sinus tachycardia with right bundle branch block pattern and nonspecific ST-T wave changes Assessment and Plan Plan: Assessment and plan #1 chest discomfort, suggestive of acute coronary syndrome. Initial troponin 0.012, subsequent troponin 0.105. EKG shows a sinus tachycardia with right bundle branch block pattern, nonspecific ST-T wave changes. #2 end-stage renal disease on hemodialysis #3 diabetes #4 hypertension #5 hyperlipidemia #6 obesity #7 coronary artery disease, prior cardiac catheterization revealed triple vessel coronary artery disease, patient refused bypass at that time. Plan We will obtain an echocardiogram with Doppler study. Obtain third troponin. Dr. Hernandez did have a discussion with the patient regarding proceeding with cardiac catheterization if necessary. Patient is concerned about the use of dye , and wishes to talk about this with her daughter first. She does take study, patient has had myalgias from statins in the past. Further recommendations to follow DNP note has been reviewed, I agree with a documented findings and plan of care. Patient was seen and examined.
[2017-08-16] MEDS: FUROSEMIDE 80 MG TAB PO SCH (16:25)
[2017-08-16] MEDS: DILTIAZEM ORAL 30 MG TAB PO SCH ×2 (16:25→20:51)
[2017-08-16 16:34] LABS: Glucose,Whole Blood 198 mg/dL (75-99)
--- NOTE | 2017-08-16 19:29 | P.HPIM ---
History of Present Illness H&P Date: 08/16/17 Chief Complaint: Chest pain This is a 71-year-old female patient of Dr. Radha Botello with past medical history of atrial fibrillation, coronary artery disease status post myocardial infarction 2015, has history of triple-vessel disease but was considered high risk for bypass, on conservative treatment, chronic diastolic heart failure, diabetes mellitus type 2, hyperlipidemia, hypertension, end-stage renal disease on hemodialysis, peripheral neuropathy.patient was recently hospitalized at [facility]05/2017 in with significant shortness of breath, she was suggestive of pulmonary edema with acute kidney injury on CK D4 in the December 2016 patient requiring hemodialysis. Patient was seen in emergency room secondary to chest pain, left side with radiation to the left arm into her left jaw, patient was sitting at 9:00 in the evening, when this chest pain started, it lasted until her ER visit. She had 3 nitroglycerin in the emergency room which did not resolve the issue, patient does not have any other neurologic complaints include motor deficits that's new , no migraines no new medications from any physicians, no dizziness no lightheadedness no palpitations no syncope. Emergency room, chest x-ray showed mild pulmonary fibrosis, no acute lung disease, heart rate in the 80s, oxygen of 2 L pulse ox 98%, EKG shows sinus tachycardia with right bundle branch block, nonspecific ST-T wave changes. Initial troponin of 0.012, creatinine of 3.0 consult was made with cardiology, and Dr. Manrique nephrology and hemodialysis and unstable angina during this admission. Review of Systems Constitutional: Reports as per HPI, Denies anorexia, Denies chills, Denies chronic headaches, Denies chronic pain, Denies daytime sleepiness, Denies fatigue, Denies fever, Denies lethargy, Denies malaise, Denies night sweats, Denies poor appetite, Denies sweats, Denies weakness, Denies weight gain, Denies weight loss Ears, nose, mouth and throat: Reports as per HPI, Denies ant. neck pain, Denies bleeding gums, Denies dental pain, Denies dysphagia, Denies epistaxis, Denies headache, Denies hoarseness, Denies mouth pain, Denies nasal congestion, Denies nasal discharge, Denies neck fullness/pressure, Denies neck lump, Denies nose pain, Denies odynophagia, Denies post-nasal drip, Denies sinus pain, Denies sinus pressure, Denies swelling in mouth, Denies swelling in throat, Denies sore throat, Denies vertigo, Denies voice changes Cardiovascular: Reports as per HPI, Denies chest pain, Denies claudication, Denies decreased exercise tolerance, Denies dyspnea on exertion, Denies edema, Denies high blood pressure, Denies irregular heart beat, Denies leg edema, Denies lightheadedness, Denies orthopnea, Denies palpitations, Denies paroxysmal nocturnal dyspnea, Denies phlebitis, Denies rapid heart beat, Denies shortness of breath, Denies syncope Respiratory: Reports as per HPI Gastrointestinal: Reports as per HPI Genitourinary: Reports as per HPI, Denies abnormal vaginal bleeding, Denies decreased libido, Denies difficulty conceiving, Denies difficulty voiding, Denies dysmenorrhea, Denies dyspareunia, Denies dysuria, Denies flank pain, Denies genital sores, Denies hematuria, Denies hot flashes, Denies incomplete emptying, Denies kidney stones, Denies menorrhagia, Denies mixed incontinence, Denies nocturia, Denies pelvic pain, Denies post void dribbling, Denies , Denies prolapse symptoms, Denies stress incontinence, Denies urge incontinence , Denies urgency, Denies urinary frequency, Denies vaginal discharge, Denies vaginal dryness, Denies vaginal itching, Denies vaginal odor Menstruation: Reports as per HPI, Denies amenorrhea, Denies amenorrhea on BC, Denies currently menstrual, Denies cycle < 21 days, Denies cycle > 35 days, Denies cycle variable, Denies menses 1-7 days, Denies menses 8 or > days, Denies menses variable, Denies period heavy, Denies period light, Denies period normal, Denies period spotting, Denies post hysterectomy, Denies postmenopausal , Denies premenarcheal Musculoskeletal: Reports as per HPI, Denies arm numbness/tingling, Denies atrophy, Denies fractures, Denies frequent falls, Denies gait dysfunction, Denies hot joints, Denies leg numbness/tingling, Denies limitation of motion, Denies loss of height, Denies low back pain, Denies morning stiffness, Denies muscle cramps, Denies muscle weakness, Denies myalgias, Denies neck pain, Denies neck stiffness, Denies prior amputations, Denies redness of joints, Denies shooting arm pain, Denies shooting leg pain Integumentary: Reports as per HPI, Denies acne, Denies boils, Denies brittle nails, Denies change in hair/nails, Denies color changes, Denies darkening of skin, Denies depigmentation, Denies dryness, Denies foot/leg ulcers, Denies growths, Denies hirsutism, Denies lesions, Denies onychomycosis, Denies pruritus , Denies rash, Denies sores, Denies striae, Denies unusual bruising, Denies wounds Neurological: Reports as per HPI, Denies aphasia, Denies ataxia, Denies balance difficulties, Denies burning pain, Denies change in mentation, Denies change in smell/taste, Denies change in speech, Denies confusion, Denies convulsions, Denies double vision, Denies gait dysfunction, Denies head injury, Denies headaches, Denies hearing difficulties, Denies lack of coordination, Denies loss of vision, Denies memory loss, Denies migraines, Denies motor disturbance, Denies numbness, Denies paralysis, Denies paresthesias, Denies seizures, Denies sensory deficit, Denies spasticity, Denies syncope, Denies tic, Denies tingling , Denies transient paralysis, Denies tremors, Denies vertigo, Denies weakness, Denies visual changes Psychiatric: Reports as per HPI, Denies anhedonia, Denies anxiety, Denies anxiety attacks, Denies change in appetite, Denies change in libido, Denies change in sleep habits, Denies confusion, Denies depression, Denies difficulty concentrating, Denies disorientation, Denies hallucinations, Denies hopelessness , Denies hypersomnia, Denies insomnia, Denies irritability, Denies memory loss, Denies mood swings, Denies paranoia, Denies sadness/tearfulness, Denies sleep disturbances, Denies suicidal ideation Endocrine: Reports as per HPI, Denies cold intolerance, Denies deepening of the voice, Denies excessive sweating, Denies excessive thirst, Denies fatigue, Denies flushing, Denies heat intolerance, Denies high blood sugars, Denies increase in ring/shoe/hat size, Denies low blood sugars, Denies nocturia, Denies palpitations, Denies polydipsia, Denies polyphagia, Denies polyuria, Denies proptosis, Denies recent glucocorticoid use, Denies thyroid mass, Denies weight change Hematologic/Lymphatic: Reports as per HPI, Denies easy bleeding, Denies easy bruising, Denies lymphadenopathy, Denies lymphedema, Denies thrombophilia Allergic/Immunologic: Reports as per HPI, Denies allergic rhinitis, Denies anaphylaxis, Denies angioedema, Denies gluten intolerance, Denies persistent infections, Denies seasonal allergies, Denies urticaria, Denies wheezing Past Medical History Past Medical History: Atrial Fibrillation, Coronary Artery Disease (CAD), Heart Failure, Diabetes Mellitus, GERD/Reflux, Hyperlipidemia, Hypertension, Myocardial Infarction (LA), Pneumonia, Renal Disease, Skin Disorder, Sleep Apnea /CPAP/BIPAP Additional Past Medical History / Comment(s): possible sleep apnea, no established diagnosis; chronic kidney disease diangosed may 2015; aortic stenois ; peripheral neuropathy upper and lower extremity Last Myocardial Infarction Date:: 05/28/2015 History of Any Multi-Drug Resistant Organisms: MRSA Date of last positivie culture/infection: 05/07/17 MDRO Source:: sputum Past Surgical History: Back Surgery, Cholecystectomy, Heart Catheterization, Hysterectomy Additional Past Surgical History / Comment(s): Lumbar surgery with decompression off L3-L4 L4-L5 with fusion March 2011 with previous hardware failure L4-L5 and extension of fusion to S1. new back sugery including t8 and t9 Past Anesthesia/Blood Transfusion Reactions: No Reported Reaction Additional Past Anesthesia/Blood Transfusion Reaction / Comment(s): Possible confusion that resolved. Past Psychological History: Anxiety, Depression Additional Psychological History / Comment(s): Pt's rachel resides with her. Pt is wheelchair bound. She can transfer herself into wheelchair and onto toilet. Daughter organizes her medications. Smoking Status: Never smoker Past Alcohol Use History: None Reported Past Drug Use History: None Reported - Past Family History Father Additional Family Medical History / Comment(s): Brain aneurysm ; age 72 Sister(s) Family Medical History: Hypertension Additional Family Medical History / Comment(s): Aortic stenosis; mitral valve disease Mother Family Medical History: AFIB, CVA/TIA, Hypertension Additional Family Medical History / Comment(s): mother age 83 Daughter(s) Family Medical History: Asthma Son(s) Family Medical History: Asthma Medications and Allergies Home Medications Medication Instructions Recorded Confirmed Type DULoxetine HCL [Cymbalta] 60 mg PO DAILY 08/04/14 08/16/17 History Fish Oil/Dha/Epa [Fish Oil 1,200 1 cap PO MOWEFR 08/04/14 08/16/17 History mg Fish Oil] Amiodarone HCl [Pacerone] 100 mg PO DAILY 11/22/15 08/16/17 History Apixaban [Eliquis] 2.5 mg PO BID 11/22/15 08/16/17 History Aspirin EC [Ecotrin Low Dose] 81 mg PO DAILY 11/22/15 08/16/17 History Docusate [Colace] 100 mg PO BID 11/22/15 08/16/17 History Ezetimibe [Zetia] 10 mg PO DAILY 11/22/15 08/16/17 History Isosorbide Mononitrate ER [Imdur] 30 mg PO DAILY 11/22/15 08/16/17 History Gabapentin [Neurontin] 300 mg PO BID #60 capsule 11/27/15 08/16/17 Rx Cranberry 4200mg-Vitamin C 1 tab PO BID 12/25/16 08/16/17 History Omeprazole 20 mg PO DAILY 12/25/16 08/16/17 History Cholecalciferol (Vitamin D3) 2,000 unit PO DAILY 12/31/16 08/16/17 History [Vitamin D3] Furosemide [Lasix] 80 mg PO BID@0900,1600 tab 01/13/17 08/16/17 Rx Ferrous Sulfate [Iron (65 MG 325 mg PO DAILY 05/05/17 08/16/17 History Elemental)] Insulin Aspart [NovoLOG See Protocol SQ AC-TID 05/05/17 08/16/17 History (formulary)] Magnesium Oxide [Mag-Ox] 250 mg PO DAILY 05/05/17 08/16/17 History Metoprolol Succinate (ER) [Toprol 100 mg PO DAILY 05/05/17 08/16/17 History XL] Insulin Glargine [Lantus] 30 unit SQ HS #0 05/15/17 08/16/17 Rx Sevelamer [Renvela] 800 mg PO TID-W/MEALS #90 tab 05/15/17 08/16/17 Rx Cetirizine HCl [Zyrtec] 10 mg PO DAILY 08/16/17 08/16/17 History Diltiazem Oral [Cardizem Oral] 30 mg PO TID 08/16/17 08/16/17 History Insulin Aspart [NovoLOG 10 unit SQ AC-TID 08/16/17 08/16/17 History (formulary)] Insulin Glargine [Lantus] 35 unit SQ AC-BRKFST 08/16/17 08/16/17 History Allergies Allergy/AdvReac Type Severity Reaction Status Date / Time KUSHAL Inhibitors Allergy Swelling Verified 08/16/17 09:22 ARB-Angiotensin Receptor Allergy Swelling Verified 08/16/17 09:22 Antagonist cephalexin monohydrate Allergy Rash/Hives Verified 08/16/17 09:22 [From Keflex] propoxyphene HCl AdvReac Hallucinati Verified 08/16/17 09:22 [From Darvon] ons Blzxktm-Are-Xsw Reductase AdvReac Myalgia Verified 08/16/17 09:22 Inhibitor Physical Exam Vitals: Vital Signs Temp Pulse Resp BP Pulse Ox 08/16/17 16:00 97.5 F L 106 H 18 182/77 94 L 08/16/17 12:00 97.6 F 100 18 143/60 98 08/16/17 08:00 97.2 F L 94 18 182/79 99 08/16/17 06:06 18 08/16/17 05:52 97.4 F L 80 18 137/60 98 Intake and Output 08/16/17 08/16/17 08/16/17 06:59 14:59 22:59 Intake Total 120 480 Balance 120 480 Intake: Oral 120 480 Other: Voiding Method Bedside Commode Bedside Commode Bedside Commode Incontinent Incontinent Incontinent # Voids 0 1 # Bowel Movements 0 Weight 92.5 kg - Constitutional General appearance: cooperative, no acute distress, obese - EENT Eyes: anicteric sclerae, EOMI, PERRLA, dentition normal, normal appearance ENT: NA/AT, normal oropharynx - Neck Neck: no lymphadenopathy, normal ROM, no other, no rigidity, no stridor, no thyromegaly - Respiratory Respiratory: bilateral: CTA, negative: diminished, dullness - Gastrointestinal General gastrointestinal: normal bowel sounds, soft - Integumentary Integumentary: no calor, no cellulitis, no cyanotic, decreased turgor, no flushed, no jaundiced, normal, no normal turgor, no pale, no rash, no ulcer - Neurologic Neurologic: CNII-XII intact - Musculoskeletal Musculoskeletal: strength equal bilaterally - Psychiatric Psychiatric: A&O x's 3, appropriate affect Results CBC & Chem 7: 08/15/17 23:30 08/16/17 11:21 Labs: Abnormal Lab Results - Last 24 Hours (Table) 08/15/17 08/15/17 08/16/17 Range/Units 23:30 23:30 11:21 RBC 3.43 L (3.80-5.40) m/uL Hgb 10.7 L (11.4-16.0) gm/dL Hct 32.6 L (34.0-46.0) % RDW 16.0 H (11.5-15.5) % Sodium 135 L (137-145) mmol/L Potassium 5.3 H (3.5-5.1) mmol/L Chloride 93 L (98-107) mmol/L BUN 25 H (7-17) mg/dL Creatinine 3.00 H (0.52-1.04) mg/dL Glucose 250 H (74-99) mg/dL POC Glucose (mg/dL) (75-99) mg/dL AST 39 H (14-36) U/L Alkaline Phosphatase 176 H (38-126) U/L Troponin I 0.105 H* (0.000-0.034) ng/mL 08/16/17 08/16/17 08/16/17 Range/Units 11:35 16:32 17:14 RBC (3.80-5.40) m/uL Hgb (11.4-16.0) gm/dL Hct (34.0-46.0) % RDW (11.5-15.5) % Sodium (137-145) mmol/L Potassium (3.5-5.1) mmol/L Chloride (98-107) mmol/L BUN (7-17) mg/dL Creatinine (0.52-1.04) mg/dL Glucose (74-99) mg/dL POC Glucose (mg/dL) 125 H 198 H (75-99) mg/dL AST (14-36) U/L Alkaline Phosphatase (38-126) U/L Troponin I 0.072 H* (0.000-0.034) ng/mL Thrombosis Risk Factor Assmnt - DVT/VTE Prophylaxis DVT/VTE Prophylaxis: Pharmacologic Prophylaxis ordered - Choose All That Apply Any of the Below Risk Factors Present?: Yes Each Factor Represents 1 point: Acute LA, Heart failure (<1month), Obesity (BMI >25) Other Risk Factors: Yes Each Risk Factor Represents 2 Points: Age 61-74 years Other congenital or acquired thrombophilia - If yes, enter type in comment: No Thrombosis Risk Factor Assessment Total Risk Factor Score: 5 Thrombosis Risk Factor Assessment Level: High Risk Assessment and Plan Plan: 1. Unstable angina with known history of CAD and paroxysmal A. fib patient, diabetes mellitus, patient was seen consultation by cardiology, patient would need cardiac catheterization to evaluate coronary artery stenosis and intervene as needed. Patient oriented was cleared by nephrology should she be undergoing contrast studies for the cardiac cath. I discussed this with Dr. Manrique cardiology following closely 2 chronic diastolic heart failure, currently compensated on hemodialysis for fluid excess management Moderate aortic stenosis. Continue on BiPAP continue patient on Imdur 30 mg orally once every day, Toprol-XLl 100 mg orally once every day. O once every day, continue hydralazine 25 mg orally twice every day , And output and daily weight, cardiology consultation. 3. End-stage renal disease on hemodialysis Tuesdays and Saturdays, patient will be transitioned to peritoneal dialysis in mid August, patient would require IV contrast for cardiac catheterization, I discussed this with nephrology Dr. Manrique and consult, and they have cleared her for such an intervention. 4. Hypertension. Continue metoprolol 100 mg orally once every day. 5. Paroxysmal atrial fibrillation. Continue amiodarone 100 mg orally once every day, Eliquis 2.5 mg orally on hold as patient is on heparin drip 6. Morbid obesity with BMI of 39. 7. Elevated troponin, most likely secondary to ischemic/coronary artery disease history of coronary artery disease. On return troponin every 63 echo ordered, continue heparin drip until seen by cardiology 8. Diabetes mellitus type 2 . Continue Lantus 30 units in the morning and 50 units in the night along with 10 units of aspart 3 times a day along with a sliding scale insulin. 9. GERD. Continue omeprazole 20 mg orally once every day. 10. Hypertension, hypertensive cardiovascular disease. Toprol-XL 100 mg orally once every day, nifedipine and Imdur 11. History of myocardial infarction and coronary artery disease. Continue aspirin 81 mg once every day, Toprol-XL 100 mg orally once every day, Imdur 30 mg orally once every day, Zetia 10 mg orally once every day. 12. Hyperlipidemia. Intolerant to statins, patient might benefit for PCSK-9 inhibitors likely part the however this needs to be prior office, outpatient follow-up for this intervention 13. Diabetic peripheral neuropathy and neuropathy secondary to chronic back pain. Continue gabapentin 300 mg orally twice every day. 14. Depression. Continue Cymbalta 60 mg orally once every day. 15. DVT prophylaxis. On heparin drip as well as bilateral knee-high TERRIE hose. 16. Prophylaxis. Continue patient on PPI. 17. Full code. Observation status was likely be discharged in 24-48 hours
[2017-08-16] MEDS: DOCUSATE 100 MG CAP PO SCH (20:44)
[2017-08-16] MEDS: INSULIN DETEMIR 100 UNIT/ML 10 ML VIAL SQ SCH (20:44)
[2017-08-16] MEDS: GABAPENTIN 300 MG CAP PO SCH (20:44)
[2017-08-16 20:56] LABS: Glucose,Whole Blood 175 mg/dL (75-99)
[2017-08-16] MEDS ORDERED: APIXABAN 2.5 MG TABLET PO SCH (21:00)
[2017-08-17 06:11] LABS: Glucose,Whole Blood 173 mg/dL (75-99)
[2017-08-17 06:51] LABS: Calcium 8.9 mg/dL (8.4-10.2); Potassium 5.2 mmol/L (3.5-5.1)
--- NOTE | 2017-08-17 07:52 | ECHOF ---
Referral Reason:vt MEASUREMENTS -------- HEIGHT: 157.5 cm WEIGHT: 92.1 kg BP: 143/60 IVSd: 1.8 cm (0.6 - 1.1) LVIDd: 2.7 cm (3.9 - 5.3) LVPWd: 1.6 cm (0.6 - 1.1) IVSs: 2.6 cm LVIDs: 1.8 cm LVPWs: 1.8 cm LAESV Index (A-L): 46.75 ml/m Ao Diam: 2.7 cm (2.0 - 3.7) AV Cusp: 0.9 cm (1.5 - 2.6) LA Diam: 4.1 cm (2.7 - 3.8) MV EXCURSION: 9.479 mm (> 18.000) MV EF SLOPE: 36 mm/s (70 - 150) EPSS: 0.4 cm MV E Yared: 1.50 m/s MV DecT: 121 ms MV A Yared: 1.87 m/s MV E/A Ratio: 0.80 AV maxP.90 mmHg AV meanP.41 mmHg RAP: 5.00 mmHg RVSP: 22.70 mmHg FINDINGS -------- Sinus rhythm. This was a technically difficult study with suboptimal views. The left ventricular size is normal. There is severe concentric left ventricular hypertrophy. Ove rall left ventricular systolic function is normal with, an EF between 55 - 60 %. The right ventricle is normal in size and function. LA is severely dilated >40 ml/m2 The right atrium is normal in size. Lumason used Aortic valve is trileaflet and is moderately thickened. There is moderate aortic stenosis present. Peak/mean gradient across the Aortic Valve is 41.90mmHg / 26.41mmHg. The mitral valve leaflets are moderately thickened. Moderate mitral annular calcification present. Moderate mitral regurgitation is present. The peak and mean MV gradients are 16.47mmHg 8.69mmHg as measured by doppler. Mild tricuspid regurgitation present. The right ventricular systolic pressure, as measured by Doppl er, is 22.70mmHg. Pulmonic valve appears structurally normal. The aortic root size is normal. The pericardium is normal. CONCLUSIONS -------- 1. Sinus rhythm. 2. This was a technically difficult study with suboptimal views. 3. The left ventricular size is normal. 4. There is severe concentric left ventricular hypertrophy. 5. Overall left ventricular systolic function is normal with, an EF between 55 - 60 %. 6. The right ventricle is normal in size and function. 7. LA is severely dilated >40 ml/m2 8. The right atrium is normal in size. 9. Lumason used 10. Aortic valve is trileaflet and is moderately thickened. 11. There is moderate aortic stenosis present. 12. Peak/mean gradient across the Aortic Valve is 41.90mmHg / 26.41mmHg. 13. The mitral valve leaflets are moderately thickened. 14. Moderate mitral annular calcification present. 15. Moderate mitral regurgitation is present. 16. The peak and mean MV gradients are 16.47mmHg 8.69mmHg as measured by doppler. 17. Mild tricuspid regurgitation present. 18. The right ventricular systolic pressure, as measured by Doppler, is 22.70mmHg. 19. Pulmonic valve appears structurally normal. 20. The aortic root size is normal. 21. The pericardium is normal. NETWORK CONTROLLER: Leticia Hoang RDCS
[2017-08-17] MEDS ORDERED: ISOSORBIDE MONONITRATE ER 30 MG TAB.ER.24H PO SCH (09:00)
--- NOTE | 2017-08-17 09:18 | P.PN ---
Subjective Patient is seen in follow-up for end-stage renal disease. She is maintained on hemodialysis on a Monday schedule. Patient presented with dyspnea and chest pain. She does of history of diastolic CHF with moderate aortic stenosis and mitral regurgitation. Patient was initially refusing cardiac catheterization but now is in agreement. Denies any active chest pain or shortness of breath. Vital signs are stable. General: The patient appeared well nourished and normally developed. HEENT: Head exam is unremarkable. Neck is without jugular venous distension. LUNGS: Lungs are clear to auscultation and percussion. Breath sounds decreased. HEART: Rate and Rhythm are regular. First and second heart sounds normal. No murmurs, rubs or gallops. ABDOMEN: Abdominal exam reveals normal bowel sounds. Non-tender and non- distended. No evidence of peritonitis. EXTREMITITES: No clubbing, cyanosis, or edema. Objective - Vital Signs Vital signs: Vital Signs Temp 97.8 F 08/17/17 07:47 Pulse 109 H 08/17/17 07:47 Resp 20 08/17/17 07:47 BP 179/77 08/17/17 07:47 Pulse Ox 88 L 08/17/17 07:47 Intake & Output 08/16/17 08/17/17 08/17/17 18:59 06:59 18:59 Intake Total 600 Balance 600 Weight 91.5 kg Intake: Oral 600 Other: Voiding Method Bedside Commode Bedside Commode Bedside Commode Incontinent Incontinent Incontinent # Voids 1 0 # Bowel Movements 0 - Labs CBC & Chem 7: 08/15/17 23:30 08/17/17 05:48 Labs: Abnormal Lab Results - Last 24 Hours (Table) 08/16/17 08/16/17 08/16/17 Range/Units 11:21 11:35 16:32 Sodium (137-145) mmol/L Potassium (3.5-5.1) mmol/L Chloride (98-107) mmol/L BUN (7-17) mg/dL Creatinine (0.52-1.04) mg/dL Glucose (74-99) mg/dL POC Glucose (mg/dL) 125 H 198 H (75-99) mg/dL Troponin I 0.105 H* (0.000-0.034) ng/mL 08/16/17 08/16/17 08/16/17 Range/Units 17:14 20:55 23:38 Sodium (137-145) mmol/L Potassium (3.5-5.1) mmol/L Chloride (98-107) mmol/L BUN (7-17) mg/dL Creatinine (0.52-1.04) mg/dL Glucose (74-99) mg/dL POC Glucose (mg/dL) 175 H (75-99) mg/dL Troponin I 0.072 H* 0.063 H* (0.000-0.034) ng/mL 08/17/17 08/17/17 Range/Units 05:48 06:10 Sodium 133 L (137-145) mmol/L Potassium 5.2 H (3.5-5.1) mmol/L Chloride 95 L (98-107) mmol/L BUN 37 H (7-17) mg/dL Creatinine 3.91 H (0.52-1.04) mg/dL Glucose 168 H (74-99) mg/dL POC Glucose (mg/dL) 173 H (75-99) mg/dL Troponin I (0.000-0.034) ng/mL Assessment and Plan Plan: Assessment: #1. End-stage renal disease maintained on hemodialysis on a Monday schedule via right chest permacath. She does have a maturing left upper extremity AV fistula. #2. Chest pain. Concern for acute coronary syndrome. Cardiology following. #3. History of diastolic CHF with moderate aortic stenosis and mitral regurgitation. #4. 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 #5. Hypertension with chronic kidney disease. Expect improvement postHD. #6. Insulin dependent diabetes mellitus. Plan: Hemodialysis today with goal 3 L ultrafiltration. Maintain current antihypertensives, including Lasix. Cleared for a cardiac catheterization from nephrology standpoint.
[2017-08-17] MEDS: INSULIN ASPART 100 UNIT/ML 1 ML 10 ML VIAL SQ SCH ×3 (10:36→18:52)
[2017-08-17] MEDS: SEVELAMER 800 MG TAB PO SCH ×3 (10:36→18:48)
[2017-08-17] MEDS: AMIODARONE 100 MG TAB PO SCH (10:38)
[2017-08-17] MEDS: EZETIMIBE 10 MG TAB PO SCH (10:38)
[2017-08-17] MEDS: DILTIAZEM ORAL 30 MG TAB PO SCH ×3 (10:38→21:31)
[2017-08-17] MEDS: PANTOPRAZOLE 40 MG TABLET PO SCH (10:38)
[2017-08-17] MEDS: METOPROLOL SUCCINATE (ER) 100 MG TAB.ER.24H PO SCH (10:38)
[2017-08-17] MEDS: ISOSORBIDE MONONITRATE ER 60 MG TAB.ER.24H PO SCH (10:39)
[2017-08-17] MEDS: FERROUS SULFATE 325 MG TAB PO SCH (10:39)
[2017-08-17] MEDS: MAGNESIUM OXIDE 400 MG TAB PO SCH (10:39)
[2017-08-17] MEDS: DULoxetine HCL 60 MG CAPSULE.DR PO SCH (10:39)
[2017-08-17] MEDS: ASPIRIN 81 MG PO SCH (10:40)
[2017-08-17] MEDS: DOCUSATE 100 MG CAP PO SCH ×2 (10:40→21:31)
[2017-08-17] MEDS: FUROSEMIDE 80 MG TAB PO SCH ×2 (10:40→18:49)
[2017-08-17] MEDS: LORATADINE 10 MG TAB PO SCH (10:40)
[2017-08-17] MEDS: GABAPENTIN 300 MG CAP PO SCH ×2 (10:41→21:31)
[2017-08-17 11:45] LABS: Glucose,Whole Blood 162 mg/dL (75-99)
[2017-08-17] MEDS ORDERED: ALPRAZolam 0.25 MG TAB PO PRN (12:47)
[2017-08-17] MEDS ORDERED: SODIUM CHLORIDE 0.9% 1,000 ML in EMPTY BAG 1 BAG IV ONE (12:47)
[2017-08-17] MEDS ORDERED: ASPIRIN 325 MG TAB PO STA (12:47)
[2017-08-17] MEDS ORDERED: ALPRAZolam 0.5 MG TAB PO PRN (12:47)
[2017-08-17] MEDS ORDERED: ATORVASTATIN 80 MG TAB PO STA (12:47)
[2017-08-17] MEDS ORDERED: NITROGLYCERIN SL TABS 0.4 MG TAB SUBLINGUAL PRN (12:47)
--- NOTE | 2017-08-17 13:10 | PN ---
PROGRESS NOTE Mrs. Corrigan is a 71-year-old female with a known history of end-stage renal disease, on hemodialysis, history of coronary artery disease by cardiac catheterization in 2017 done at [facility]. At that time, she was told that surgery is recommended. Patient did not have surgery at this time. She presented with symptoms of chest discomfort and progressive dyspnea with mild elevation of her troponin. She is feeling better today. She denies any further chest pain. Her breathing has been stable. She denies any dizziness or palpitation. She is not very active physically because of her back discomfort. She continues to be at this time on aspirin once a day, amiodarone 100 mg daily, diltiazem 30 mg 3 times a day, Zetia 10 mg daily, furosemide 80 mg twice a day, isosorbide mononitrate 60 mg daily, metoprolol 100 mg daily. PHYSICAL EXAMINATION: Blood pressure 137/60 with the heart rate in the 90s to 100s. LUNGS: Clear. HEART: S1, S2 with systolic murmur. No diastolic murmur. No rub. ABDOMEN: Soft, obese, nontender. EXTREMITIES: No significant edema. LAB DATA: Lab data revealed a BUN and creatinine 37 and 3.9, hemoglobin of 5.2. Her echocardiogram revealed a preserved systolic function. IMPRESSION: 1. Cjc-WP-[id number] elevation myocardial infarction. 2. End-stage renal disease, on hemodialysis. 3. History of hypertension. 4. Hyperlipidemia, intolerant to statin. 5. Paroxysmal atrial fibrillation. RECOMMENDATION: I had a long discussion with the patient and her family regarding the option. The patient would like to proceed with cardiac catheterization, hoping that percutaneous revascularization is an option. I will tentatively schedule to undergo the cardiac catheterization tomorrow by Dr. Combs and depending on the results of the testing, further recommendation will be made. MMODL / IJN: [id number] /
[2017-08-17 16:34] LABS: Glucose,Whole Blood 117 mg/dL (75-99)
[2017-08-17 20:38] LABS: Glucose,Whole Blood 152 mg/dL (75-99)
[2017-08-17] MEDS: INSULIN DETEMIR 100 UNIT/ML 10 ML VIAL SQ SCH (21:31)
[2017-08-18 05:35] LABS: Glucose,Whole Blood 80 mg/dL (75-99)
[2017-08-18] MEDS: INSULIN ASPART 100 UNIT/ML 1 ML 10 ML VIAL SQ SCH ×3 (07:57→17:25)
[2017-08-18] MEDS: DULoxetine HCL 60 MG CAPSULE.DR PO SCH (07:58)
[2017-08-18] MEDS: DOCUSATE 100 MG CAP PO SCH ×2 (07:58→20:50)
[2017-08-18] MEDS: EZETIMIBE 10 MG TAB PO SCH (07:58)
[2017-08-18] MEDS: LORATADINE 10 MG TAB PO SCH (07:59)
[2017-08-18] MEDS: FUROSEMIDE 80 MG TAB PO SCH ×2 (07:59→17:26)
[2017-08-18] MEDS: GABAPENTIN 300 MG CAP PO SCH ×2 (07:59→20:50)
[2017-08-18] MEDS: METOPROLOL SUCCINATE (ER) 100 MG TAB.ER.24H PO SCH (07:59)
[2017-08-18] MEDS: SEVELAMER 800 MG TAB PO SCH ×3 (07:59→17:25)
[2017-08-18] MEDS: ISOSORBIDE MONONITRATE ER 60 MG TAB.ER.24H PO SCH (07:59)
[2017-08-18] MEDS: DILTIAZEM ORAL 30 MG TAB PO SCH ×3 (08:00→20:50)
[2017-08-18] MEDS: PANTOPRAZOLE 40 MG TABLET PO SCH (08:00)
[2017-08-18] MEDS: AMIODARONE 100 MG TAB PO SCH (08:00)
[2017-08-18] MEDS: ASPIRIN 81 MG PO SCH (08:00)
--- NOTE | 2017-08-18 11:17 | P.PN ---
Subjective Progress Note Date: 08/17/17 This is a 71-year-old female patient of Dr. Radha Botello with past medical history of atrial fibrillation, coronary artery disease status post myocardial infarction 2015, has history of triple-vessel disease but was considered high risk for bypass, on conservative treatment, chronic diastolic heart failure, diabetes mellitus type 2, hyperlipidemia, hypertension, end-stage renal disease on hemodialysis, peripheral neuropathy.patient was recently hospitalized at [facility]05/2017 in with significant shortness of breath, she was suggestive of pulmonary edema with acute kidney injury on CK D4 in the December 2016 patient requiring hemodialysis. Patient was seen in emergency room secondary to chest pain, left side with radiation to the left arm into her left jaw, patient was sitting at 9:00 in the evening, when this chest pain started, it lasted until her ER visit. She had 3 nitroglycerin in the emergency room which did not resolve the issue, patient does not have any other neurologic complaints include motor deficits that's new , no migraines no new medications from any physicians, no dizziness no lightheadedness no palpitations no syncope. Emergency room, chest x-ray showed mild pulmonary fibrosis, no acute lung disease, heart rate in the 80s, oxygen of 2 L pulse ox 98%, EKG shows sinus tachycardia with right bundle branch block, nonspecific ST-T wave changes. Initial troponin of 0.012, creatinine of 3.0 consult was made with cardiology, and Dr. Manrique nephrology and hemodialysis and unstable angina during this admission. 08/17: Patient is scheduled for heart catheterization tomorrow with Dr. Lauryn Manrique is following with plan for hemodialysis today and nephrology has cleared her for heart catheterization. BUN is 37 creatinine 3.9 , sodium 133, potassium 5.2 and chloride 95. Echocardiogram reveals EF of 55-60 % with L a severely dilated greater than 40, moderate aortic stenosis, moderate mitral regurgitation, mild tricuspid regurgitation Objective - Vital Signs Vital signs: Vital Signs Temp 96.4 F L 08/17/17 11:00 Pulse 111 H 08/17/17 11:00 Resp 18 08/17/17 11:00 BP 137/67 08/17/17 11:00 Pulse Ox 99 08/17/17 11:00 Intake & Output 08/16/17 08/17/17 08/17/17 18:59 06:59 18:59 Intake Total 600 Output Total 300 Balance 600 -300 Weight 91.5 kg Intake: Oral 600 Output: Urine 300 Other: Voiding Method Bedside Commode Bedside Commode Bedside Commode Incontinent Incontinent Incontinent # Voids 1 0 1 # Bowel Movements 0 0 - Exam General appearance: cooperative, no acute distress, obese - EENT Eyes: anicteric sclerae, EOMI, PERRLA, dentition normal, normal appearance ENT: NA/AT, normal oropharynx - Neck Neck: no lymphadenopathy, normal ROM, no other, no rigidity, no stridor, no thyromegaly - Respiratory Respiratory: bilateral: CTA, negative: diminished, dullness - Gastrointestinal General gastrointestinal: normal bowel sounds, soft - Integumentary Integumentary: no calor, no cellulitis, no cyanotic, decreased turgor, no flushed, no jaundiced, normal, no normal turgor, no pale, no rash, no ulcer - Neurologic Neurologic: CNII-XII intact - Musculoskeletal Musculoskeletal: strength equal bilaterally - Psychiatric Psychiatric: A&O x's 3, appropriate affect - Labs CBC & Chem 7: 08/15/17 23:30 08/17/17 05:48 Labs: Abnormal Lab Results - Last 24 Hours (Table) 08/16/17 08/16/17 08/16/17 Range/Units 16:32 17:14 20:55 Sodium (137-145) mmol/L Potassium (3.5-5.1) mmol/L Chloride (98-107) mmol/L BUN (7-17) mg/dL Creatinine (0.52-1.04) mg/dL Glucose (74-99) mg/dL POC Glucose (mg/dL) 198 H 175 H (75-99) mg/dL Troponin I 0.072 H* (0.000-0.034) ng/mL 08/16/17 08/17/17 08/17/17 Range/Units 23:38 05:48 06:10 Sodium 133 L (137-145) mmol/L Potassium 5.2 H (3.5-5.1) mmol/L Chloride 95 L (98-107) mmol/L BUN 37 H (7-17) mg/dL Creatinine 3.91 H (0.52-1.04) mg/dL Glucose 168 H (74-99) mg/dL POC Glucose (mg/dL) 173 H (75-99) mg/dL Troponin I 0.063 H* (0.000-0.034) ng/mL 08/17/17 Range/Units 11:43 Sodium (137-145) mmol/L Potassium (3.5-5.1) mmol/L Chloride (98-107) mmol/L BUN (7-17) mg/dL Creatinine (0.52-1.04) mg/dL Glucose (74-99) mg/dL POC Glucose (mg/dL) 162 H (75-99) mg/dL Troponin I (0.000-0.034) ng/mL Assessment and Plan Plan: 1. Non-ST elevated myocardial infarction. Cardiology consult appreciated. Heart catheterization scheduled for tomorrow. Continue aspirin, Imdur, Toprol- XL. 2. Chronic diastolic heart failure, currently compensated on hemodialysis for fluid excess management Moderate aortic stenosis. Continue on BiPAP continue patient on Imdur 30 mg orally once every day, Toprol-XLl 100 mg orally once every day. O once every day, continue hydralazine 25 mg orally twice every day , And output and daily weight, cardiology consultation. 3. End-stage renal disease on hemodialysis Tuesdays and Saturdays, patient will be transitioned to peritoneal dialysis in mid August, patient would require IV contrast for cardiac catheterization, Dr. Manrique on consult. Patient is continued on hemodialysis. 4. Hypertension. Continue metoprolol 100 mg orally once every day. 5. Paroxysmal atrial fibrillation. Continue amiodarone 100 mg orally once every day, Toprol-XL, Cardizem 30 mg 3 times daily, Eliquis 2.5 mg orally on hold as patient is on heparin drip 6. Morbid obesity with BMI of 39. 7. Elevated troponin secondary to non-ST elevated myocardial infarction. 8. Diabetes mellitus type 2 . Continue Lantus 30 units in the morning and 50 units in the night along with 10 units of aspart 3 times a day along with a sliding scale insulin. 9. GERD. Continue omeprazole 20 mg orally once every day. 10. Hypertension, hypertensive cardiovascular disease. Toprol-XL 100 mg orally once every day, and Imdur 11. History of myocardial infarction and coronary artery disease. Continue aspirin 81 mg once every day, Toprol-XL 100 mg orally once every day, Imdur 30 mg orally once every day, Zetia 10 mg orally once every day. 12. Hyperlipidemia. Intolerant to statins, patient might benefit for PCSK-9 inhibitors likely part the however this needs to be prior office, outpatient follow-up for this intervention 13. Diabetic peripheral neuropathy and neuropathy secondary to chronic back pain. Continue gabapentin 300 mg orally twice every day. 14. Recurent depression. Continue Cymbalta 60 mg orally once every day. 15. DVT prophylaxis. On heparin drip as well as bilateral knee-high TERRIE hose. 16. Prophylaxis. Continue patient on PPI. 17. Full code. Discharge plan: home Impression and plan of care have been directed as dictated by the signing physician. Jessenia Gonzalez nurse practitioner acting as scribe for signing physician.
[2017-08-18] MEDS ORDERED: MIDAZOLAM 2 MG/2 ML VIAL IV ONE (11:50)
[2017-08-18] MEDS ORDERED: IV FLUID CONTINUATION 500 ML IV ONE (11:50)
[2017-08-18] MEDS ORDERED: fentaNYL (PF) 50 MCG/ML 2 ML AMP IV ONE (11:50)
[2017-08-18] MEDS ORDERED: LIDOCAINE 2% INJ 20 MG/ML SQ ONE ×2 (11:52→11:55)
[2017-08-18] MEDS ORDERED: BIVALIRUDIN BOLUS 250 MG/50 ML IV ONE (12:29)
[2017-08-18] MEDS ORDERED: BIVALIRUDIN 250 MG in SODIUM CHLORIDE 0.9% 50 ML IV ONE (12:30)
--- NOTE | 2017-08-18 12:31 | P.PCN ---
Date of Procedure: 08/18/17 Preoperative Diagnosis: Unstable angina/non-STEMI Postoperative Diagnosis: Severe 2 vessel disease with critical lesion in the LAD diagonal and also OM branch Procedure(s) Performed: Left heart catheterization without left ventriculography Description of Procedure: HISTORY: This is a 71-year-old female with history of hypertension, coronary artery disease and also renal failure on dialysis who was admitted to the hospital with complaints of chest pain with and positive troponins, suggestive of non-STEMI. Patient is advised to have a cardiac catheterization with understanding the risk of the procedure is high given her multiple comorbidities. CONSENT:I have discussed the risks, benefits and alternative therapies for the above-mentioned procedure and for both sedation/analgesia as well as necessary blood product administration, if indicated, as they pertain to this patient. The patient has indicated understanding and acceptance of the risks and procedures discussed. [] PROCEDURE: Patient was brought to the lab in a fasting state. Patient was given some IV sedation. The right groin is infiltrated with lidocaine and right femoral artery was entered using Seldinger technique. A 6-Wolof catheter was left in place and selective coronary arteriography was performed. Patient tolerated the procedure well. Femoral angiogram was performed. No immediate complications were noted and patient went on to have stent placement of the LAD and possible and balloon angioplasty of the diagonal by Dr. Hinkle. Conscious Sedation: Versed 0.5 mg Fentanyl 25 g Duration 30 minutes HEMODYNAMICS: The aortic pressure is 145/63. There end-diastolic pressure is about 15-20. SELECTIVE CORONARY ARTERIOGRAPHY: LEFT MAIN: Normal length and free of any significant focal lesion THE LEFT ANTERIOR DESCENDING CORONARY ARTERY: This is a moderate caliber vessel with diffuse disease and calcification. There is a 80 -90% stenosis of the LAD after the origin of the first diagonal branch. There is a 95% stenosis of the ostium of the diagonal branch. THE LEFT CIRCUMFLEX AND IS CORONARY ARTERY: This is a good caliber vessel giving rise to good-sized OM branch and also PLV branches. The OM branch has a long 80% stenosis in the proximal segment. The midcircumflex also has 60-70% stenosis. THE RIGHT CORONARY ARTERY: This is a fairly caliber vessel with a diffuse disease with about areas of 50-60% stenosis LEFT VENTRICULOGRAPHY: Not performed FINAL IMPRESSION: Triple-vessel disease with a critical lesion involving the mid LAD ostium of the first diagonal and the OM branch of the circumflex. Intermediate disease noted in the mid circumflex and also in the right coronary artery. PLAN: Stent placement of the LAD and possible balloon angioplasty of the diagonal. Stated stenting of the OM branch. Manan is attempting to do the procedure. Now.( PROGNOSIS: Guarded
[2017-08-18] MEDS ORDERED: IOPAMIDOL-370 125ML BTL INJ ONE (12:39)
[2017-08-18] MEDS: NITROGLYCERIN 1000MCG/10ML SYRINGE INTRACORON ONE ×3 (12:50→13:03)
[2017-08-18] MEDS ORDERED: CLOPIDOGREL 75 MG TAB PO ONE (13:08)
[2017-08-18] MEDS ORDERED: IOPAMIDOL-370 100ML BTL INJ ONE (13:09)
[2017-08-18] MEDS ORDERED: NITROGLYCERIN SL TABS 0.4 MG TAB SUBLINGUAL PRN (13:14)
[2017-08-18] MEDS ORDERED: MAG HYDROX/AL HYDROX/SIMETH 30 ML CUP PO PRN (13:14)
[2017-08-18] MEDS ORDERED: ZOLPIDEM 5 MG TAB PO PRN (13:14)
[2017-08-18] MEDS ORDERED: ATROPINE SULFATE 0.1 MG/ML 10ML SYRINGE IV PRN (13:14)
[2017-08-18] MEDS ORDERED: RX INFO: IV CONTRAST WAS GIVEN 1 EACH MISC MISCELLANE PRN (13:14)
[2017-08-18] MEDS ORDERED: SODIUM CHLORIDE 0.9% 1,000 ML IV SCH (13:15)
[2017-08-18 13:35] LABS: Glucose,Whole Blood 118 mg/dL (75-99)
[2017-08-18 14:11] VITALS: BMI 36.5
--- NOTE | 2017-08-18 14:31 | P.PN ---
Subjective Patient is seen in follow-up for end-stage renal disease. She is maintained on hemodialysis on a Monday schedule. Patient presented with dyspnea and chest pain. She does of history of diastolic CHF with moderate aortic stenosis and mitral regurgitation. Patient underwent cardiac catheterization this morning and had a stent placed to the LAD. Denies any active chest pain or shortness of breath. Vital signs are stable. General: The patient appeared well nourished and normally developed. HEENT: Head exam is unremarkable. Neck is without jugular venous distension. LUNGS: Lungs are clear to auscultation and percussion. Breath sounds decreased. HEART: Rate and Rhythm are regular. First and second heart sounds normal. No murmurs, rubs or gallops. ABDOMEN: Abdominal exam reveals normal bowel sounds. Non-tender and non- distended. No evidence of peritonitis. EXTREMITITES: No clubbing, cyanosis, or edema. Objective - Vital Signs Vital signs: Vital Signs Temp 96.8 F L 08/18/17 13:30 Pulse 73 08/18/17 13:30 Resp 18 08/18/17 13:30 BP 139/62 08/18/17 13:30 Pulse Ox 98 08/18/17 13:30 Intake & Output 08/17/17 08/18/17 08/18/17 18:59 06:59 18:59 Intake Total 240 450 217.17 Output Total 300 0 Balance -60 450 217.17 Weight 90.5 kg 90.5 kg Intake: IV 217.17 Intake, IV Titration 300 Amount Sodium Chloride 0.9% 1, 300 000 ml In Empty Bag 1 bag @ 1 ML/KG/HR 91.5 mls/hr IV .[id number] ONE Rx#: [id number] Oral 240 150 0 Output: Urine 300 0 Stool 0 Urine/Stool Mix 0 Other: Voiding Method Bedside Commode Urinal Urinal Incontinent # Voids 1 0 # Bowel Movements 0 0 - Labs CBC & Chem 7: 08/15/17 23:30 08/17/17 05:48 Labs: Abnormal Lab Results - Last 24 Hours (Table) 08/17/17 08/17/17 08/18/17 Range/Units 16:32 20:36 13:34 POC Glucose (mg/dL) 117 H 152 H 118 H (75-99) mg/dL Assessment and Plan Plan: Assessment: #1. End-stage renal disease maintained on hemodialysis on a Monday schedule via right chest permacath. She does have a maturing left upper extremity AV fistula. #2. Coronary artery disease status post cardiac catheterization with stent placement to the LAD on August 18. #3. History of diastolic CHF with moderate aortic stenosis and mitral regurgitation. #4. 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 #5. Hypertension with chronic kidney disease. #6. Insulin dependent diabetes mellitus. Plan: Hep-Lock IV fluids. Hemodialysis tomorrow with goal 3-4 L ultrafiltration. Maintain current antihypertensives, including Lasix.
--- NOTE | 2017-08-18 14:51 | P.PN ---
Subjective Progress Note Date: 08/18/17 This is a 71-year-old female patient of Dr. Radha Botello with past medical history of atrial fibrillation, coronary artery disease status post myocardial infarction 2015, has history of triple-vessel disease but was considered high risk for bypass, on conservative treatment, chronic diastolic heart failure, diabetes mellitus type 2, hyperlipidemia, hypertension, end-stage renal disease on hemodialysis, peripheral neuropathy.patient was recently hospitalized at [facility]/2017 in with significant shortness of breath, she was suggestive of pulmonary edema with acute kidney injury on CK D4 in the December 2016 patient requiring hemodialysis. Patient was seen in emergency room secondary to chest pain, left side with radiation to the left arm into her left jaw, patient was sitting at 9:00 in the evening, when this chest pain started, it lasted until her ER visit. She had 3 nitroglycerin in the emergency room which did not resolve the issue, patient does not have any other neurologic complaints include motor deficits that's new , no migraines no new medications from any physicians, no dizziness no lightheadedness no palpitations no syncope. Emergency room, chest x-ray showed mild pulmonary fibrosis, no acute lung disease, heart rate in the 80s, oxygen of 2 L pulse ox 98%, EKG shows sinus tachycardia with right bundle branch block, nonspecific ST-T wave changes. Initial troponin of 0.012, creatinine of 3.0 consult was made with cardiology, and Dr. Manrique nephrology and hemodialysis and unstable angina during this admission. 08/17: Patient is scheduled for heart catheterization tomorrow with Dr. Lauryn Manrique is following with plan for hemodialysis today and nephrology has cleared her for heart catheterization. BUN is 37 creatinine 3.9 , sodium 133, potassium 5.2 and chloride 95. Echocardiogram reveals EF of 55-60 % with L a severely dilated greater than 40, moderate aortic stenosis, moderate mitral regurgitation, mild tricuspid regurgitation 08/18: Patient underwent heart catheterization today with Dr. Combs finding triple-vessel disease and critical lesion involving the mid LAD ostium of the first diagonal and the OM branch of the circumflex. Intermediate disease noted in the mid circumflex and also in the right coronary artery. Plan is for stent placement of the LAD and possible balloon and she'll plasty of the diagonal and also stenting of the OM branch. Dr. Macedo is performing these. Objective - Vital Signs Vital signs: Vital Signs Temp 96.8 F L 08/18/17 08:00 Pulse 76 08/18/17 08:00 Resp 18 08/18/17 08:00 BP 158/68 08/18/17 08:00 Pulse Ox 99 08/18/17 08:00 Intake & Output 08/17/17 08/18/17 08/18/17 18:59 06:59 18:59 Intake Total 240 450 0 Output Total 300 Balance -60 450 0 Weight 90.5 kg Intake: Intake, IV Titration 300 Amount Sodium Chloride 0.9% 1, 300 000 ml In Empty Bag 1 bag @ 1 ML/KG/HR 91.5 mls/hr IV .[id number] ONE Rx#: [id number] Oral 240 150 0 Output: Urine 300 Other: Voiding Method Bedside Commode Urinal Urinal Incontinent # Voids 1 # Bowel Movements 0 - Exam General appearance: cooperative, no acute distress, obese - EENT Eyes: anicteric sclerae, EOMI, PERRLA, dentition normal, normal appearance ENT: NA/AT, normal oropharynx - Neck Neck: no lymphadenopathy, normal ROM, no other, no rigidity, no stridor, no thyromegaly - Respiratory Respiratory: bilateral: CTA, negative: diminished, dullness - Gastrointestinal General gastrointestinal: normal bowel sounds, soft - Integumentary Integumentary: no calor, no cellulitis, no cyanotic, decreased turgor, no flushed, no jaundiced, normal, no normal turgor, no pale, no rash, no ulcer - Neurologic Neurologic: CNII-XII intact - Musculoskeletal Musculoskeletal: strength equal bilaterally - Psychiatric Psychiatric: A&O x's 3, appropriate affect - Labs CBC & Chem 7: 08/15/17 23:30 08/17/17 05:48 Labs: Abnormal Lab Results - Last 24 Hours (Table) 08/17/17 08/17/17 08/17/17 Range/Units 11:43 16:32 20:36 POC Glucose (mg/dL) 162 H 117 H 152 H (75-99) mg/dL Assessment and Plan Plan: 1. Non-ST elevated myocardial infarction. Cardiology consult appreciated. Heart catheterization with triple-vessel disease. Continue aspirin, Imdur, Toprol-XL. 2. Chronic diastolic heart failure, currently compensated on hemodialysis for fluid excess management Moderate aortic stenosis. Continue on BiPAP continue patient on Imdur 30 mg orally once every day, Toprol-XLl 100 mg orally once every day. O once every day, continue hydralazine 25 mg orally twice every day , And output and daily weight, cardiology consultation. 3. End-stage renal disease and hyperkalemia on hemodialysis Tuesdays and Saturdays, patient will be transitioned to peritoneal dialysis in mid August, patient would require IV contrast for cardiac catheterization, Dr. Manrique on consult. Patient is continued on hemodialysis. 4. Hypertension. Continue metoprolol 100 mg orally once every day. 5. Paroxysmal atrial fibrillation. Continue amiodarone 100 mg orally once every day, Toprol-XL, Cardizem 30 mg 3 times daily, Eliquis 2.5 mg orally on hold as patient is on heparin drip 6. Morbid obesity with BMI of 39. 7. Elevated troponin secondary to non-ST elevated myocardial infarction. 8. Diabetes mellitus type 2 . Continue Lantus 30 units in the morning and 50 units in the night along with 10 units of aspart 3 times a day along with a sliding scale insulin. 9. GERD. Continue omeprazole 20 mg orally once every day. 10. Hypertension, hypertensive cardiovascular disease. Toprol-XL 100 mg orally once every day, and Imdur 11. History of myocardial infarction and coronary artery disease. Continue aspirin 81 mg once every day, Toprol-XL 100 mg orally once every day, Imdur 30 mg orally once every day, Zetia 10 mg orally once every day. 12. Hyperlipidemia. Intolerant to statins, patient might benefit for PCSK-9 inhibitors likely part the however this needs to be prior office, outpatient follow-up for this intervention 13. Diabetic peripheral neuropathy and neuropathy secondary to chronic back pain. Continue gabapentin 300 mg orally twice every day. 14. Recurent depression. Continue Cymbalta 60 mg orally once every day. 15. DVT prophylaxis. On heparin drip as well as bilateral knee-high TERRIE hose. 16. GI Prophylaxis. Continue patient on PPI. 17. Anemia of chronic renal disease. Discharge plan: home Impression and plan of care have been directed as dictated by the signing physician. Jessenia Gonzalez nurse practitioner acting as scribe for signing physician.
[2017-08-18] MEDS: FERROUS SULFATE 325 MG TAB PO SCH (15:57)
[2017-08-18] MEDS: MAGNESIUM OXIDE 400 MG TAB PO SCH (15:57)
--- NOTE | 2017-08-18 16:23 | PTCA ---
PERCUTANEOUSTRANS CORORONARY ANGIOGRAPHY DATE OF SERVICE: 08/18/2017 PERFORMING PHYSICIAN: Nikos Macedo MD, spinning supervisor. PROCEDURE PERFORMED: 1. Successful balloon angioplasty of the first diagonal branch of the LAD which is a large diagonal using 2.75 x 12 mm noncompliant balloon with reduction of stenosis from 90% to about 40%. 2. Successful stenting of the mid LAD using 3.0 x 15 and 3.0 x 8 mm Xience drug- eluting stent with good angiographic results and reduction of stenosis from 80% to 0%. 3. INDICATION: This is a pleasant 71-year-old female patient who sees Dr. Combs in the office as an outpatient who presented to the hospital with chest discomfort and was diagnosed with [id number] myocardial infarction. She does have multiple comorbid conditions, including end-stage renal disease, history of hypertension, dyslipidemia, as well as paroxysmal atrial fibrillation. COMPLICATIONS: None. LEVEL OF SEDATION: Moderate with sedation length of 45 minutes. PROCEDURE DESCRIPTION: After diagnostic heart catheterization was performed by Dr. Combs, I was asked to perform angioplasty on the patient. The angiogram was reviewed. We decided to pursue intervention of the diagonal as well as the LAD. Anticoagulation was initiated using Angiomax. Subsequently I took an XP35 LAD guide and the left main was engaged. A Whisper wire was used to wire the first diagonal. A second Whisper wire was used to wire the LAD. After that I did balloon angioplasty of both the diagonal and the LAD using 2.75 x 12 mm NC balloon. After that I stented the mid LAD using a 3.0 x 15 mm Xience CARLA where the stent was positioned under fluoroscopy guidance and deployed under 12 atmospheres for 20 seconds. The following angiogram showed good results for the stented segment, but proximal to the stent there was haziness. This was by the takeoff of the large first diagonal. I decided to cover that one with a stent, so I deployed another Xience CARLA where the second stent was positioned under fluoroscopy guidance with about 3 mm overlap with the previous stent, and the second stent was deployed under 12 atmospheres for 20 seconds. I ballooned the area of overlap using the same stent balloon, which was a 3.0 balloon, and the balloon was inflated under 12 atmospheres for about 10 seconds. The following angiogram showed good angiographic results without perforation and without dissection with EMY-3 flow. The procedure was completed without any complication. POST-PROCEDURE MANAGEMENT: 1. Dual anti-platelet therapy. 2. Risk factor modifications. 3. Follow up with the patient. RAINE / SUBHAN: [id number] /
[2017-08-18 16:52] LABS: Glucose,Whole Blood 127 mg/dL (75-99)
[2017-08-18] MEDS: ATORVASTATIN 80 MG TAB PO SCH (20:50)
[2017-08-18 21:08] LABS: Glucose,Whole Blood 165 mg/dL (75-99)
[2017-08-18] MEDS: INSULIN DETEMIR 100 UNIT/ML 10 ML VIAL SQ SCH (23:59)
[2017-08-19 05:59] LABS: Glucose,Whole Blood 162 mg/dL (75-99)
[2017-08-19] MEDS: INSULIN ASPART 100 UNIT/ML 1 ML 10 ML VIAL SQ SCH ×3 (07:52→17:07)
[2017-08-19] MEDS: SEVELAMER 800 MG TAB PO SCH ×3 (07:53→17:12)
--- NOTE | 2017-08-19 09:04 | P.PN ---
Subjective Patient is seen in follow-up for end-stage renal disease. She is maintained on hemodialysis on a Monday schedule. Patient presented with dyspnea and chest pain. She does of history of diastolic CHF with moderate aortic stenosis and mitral regurgitation. Patient underwent cardiac catheterization on August 18, 2017 and had a stent placed to the mid-LAD and balloon angioplasty of the first diagonal branch of the LAD. Denies any active chest pain or shortness of breath. Currently seeing was undergoing hemodialysis. No active complaints. Vital signs are stable. General: The patient appeared well nourished and normally developed. HEENT: Head exam is unremarkable. Neck is without jugular venous distension. LUNGS: Lungs are clear to auscultation and percussion. Breath sounds decreased. HEART: Rate and Rhythm are regular. First and second heart sounds normal. No murmurs, rubs or gallops. ABDOMEN: Abdominal exam reveals normal bowel sounds. Non-tender and non- distended. No evidence of peritonitis. EXTREMITITES: No clubbing, cyanosis, or edema. Objective - Vital Signs Vital signs: Vital Signs Temp 97 F L 08/19/17 07:50 Pulse 78 08/19/17 07:50 Resp 18 08/19/17 07:50 BP 117/61 08/19/17 07:50 Pulse Ox 98 08/19/17 07:50 Intake & Output 08/18/17 08/19/17 08/19/17 18:59 06:59 18:59 Intake Total 217.17 Output Total 0 0 Balance 217.17 0 Weight 90.5 kg 94.5 kg Intake: IV 217.17 Oral 0 Output: Urine 0 Stool 0 0 Urine/Stool Mix 0 Other: Voiding Method Urinal Urinal # Voids 0 0 # Bowel Movements 0 - Labs CBC & Chem 7: 08/15/17 23:30 08/17/17 05:48 Labs: Abnormal Lab Results - Last 24 Hours (Table) 08/18/17 08/18/17 08/18/17 Range/Units 13:34 16:50 21:06 POC Glucose (mg/dL) 118 H 127 H 165 H (75-99) mg/dL 08/19/17 Range/Units 05:57 POC Glucose (mg/dL) 162 H (75-99) mg/dL Assessment and Plan Plan: Assessment: #1. End-stage renal disease maintained on hemodialysis on a Monday schedule via right chest permacath. She does have a maturing left upper extremity AV fistula. #2. Coronary artery disease status post cardiac catheterization with stent placement to the mid-LAD and angioplasty of the first diagonal branch of the LAD on August 18, 2017. #3. History of diastolic CHF with moderate aortic stenosis and mitral regurgitation. #4. 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 #5. Hypertension with chronic kidney disease. #6. Insulin dependent diabetes mellitus. Plan: Currently seen while undergoing hemodialysis. Will try for 4 L ultrafiltration. Maintain current antihypertensives, including Lasix. Potential discharge once cleared by cardiology.
--- NOTE | 2017-08-19 10:09 | P.PN ---
Subjective Progress Note Date: 08/19/17 Principal diagnosis: elevated trop Patient continued to be hemodynamically stable feeling lethargic this morning no major events reported by nursing staff Objective - Vital Signs Vital signs: Vital Signs Temp 97 F L 08/19/17 07:50 Pulse 78 08/19/17 07:50 Resp 18 08/19/17 07:50 BP 117/61 08/19/17 07:50 Pulse Ox 98 08/19/17 07:50 Intake & Output 08/18/17 08/19/17 08/19/17 18:59 06:59 18:59 Intake Total 217.17 Output Total 0 0 Balance 217.17 0 Weight 90.5 kg 94.5 kg Intake: IV 217.17 Oral 0 Output: Urine 0 Stool 0 0 Urine/Stool Mix 0 Other: Voiding Method Urinal Urinal # Voids 0 0 # Bowel Movements 0 - Exam Gen.: in stated age, no acute distress Heart: Normal S1-S2 Lungs: Clear to auscultation bilaterally Abdomen: Soft, no tenderness, positive bowel sounds in all 4 quadrant no guarding or rebound Skin: No new rash Psych: Alert and oriented 3 Neuro: No focal deficit Right upper chest dialysis catheter seems to be intact in place - Labs CBC & Chem 7: 08/15/17 23:30 08/17/17 05:48 Labs: Abnormal Lab Results - Last 24 Hours (Table) 08/18/17 08/18/17 08/18/17 Range/Units 13:34 16:50 21:06 POC Glucose (mg/dL) 118 H 127 H 165 H (75-99) mg/dL 08/19/17 Range/Units 05:57 POC Glucose (mg/dL) 162 H (75-99) mg/dL Assessment and Plan Assessment: 1. Coronary artery disease status post angioplasty. We'll continue evidence based medicine continue monitoring patient's closely discharge planning based on clinical progress. 2. End-stage renal disease. Patient received dialysis today plan for another course of dialysis in the morning with follow-up with nephrology recommendation discussed with nursing staff. 3. Fatigue. Could be related to recent sedation. We will continue monitoring. 4. Hyperlipidemia. Continue statin. 5. Hypertension with continual blood pressure medication with holding parameters. Discharge planning based on clinical progress
[2017-08-19] MEDS: AMIODARONE 100 MG TAB PO SCH (10:11)
[2017-08-19] MEDS: ASPIRIN 81 MG PO SCH (10:11)
[2017-08-19] MEDS: DOCUSATE 100 MG CAP PO SCH ×2 (10:11→20:22)
[2017-08-19] MEDS: PANTOPRAZOLE 40 MG TABLET PO SCH (10:11)
[2017-08-19] MEDS: LORATADINE 10 MG TAB PO SCH (10:12)
[2017-08-19] MEDS: METOPROLOL SUCCINATE (ER) 100 MG TAB.ER.24H PO SCH (10:12)
[2017-08-19] MEDS: DILTIAZEM ORAL 30 MG TAB PO SCH ×3 (10:13→20:22)
[2017-08-19] MEDS: DULoxetine HCL 60 MG CAPSULE.DR PO SCH (10:13)
[2017-08-19] MEDS: FUROSEMIDE 80 MG TAB PO SCH ×2 (10:13→16:03)
[2017-08-19] MEDS: EZETIMIBE 10 MG TAB PO SCH (10:13)
[2017-08-19] MEDS: GABAPENTIN 300 MG CAP PO SCH ×2 (10:13→20:22)
[2017-08-19] MEDS: ISOSORBIDE MONONITRATE ER 60 MG TAB.ER.24H PO SCH (10:14)
[2017-08-19 11:53] LABS: Glucose,Whole Blood 162 mg/dL (75-99)
[2017-08-19] MEDS: FERROUS SULFATE 325 MG TAB PO SCH (12:05)
[2017-08-19] MEDS: MAGNESIUM OXIDE 400 MG TAB PO SCH (12:05)
[2017-08-19] MEDS: CLOPIDOGREL 75 MG TAB PO SCH (12:06)
[2017-08-19 12:27] LABS: Anisocytosis Slight; Basophils % (A) 0 %; Eosinophils # (A) 0.1 k/uL (0-0.7); Eosinophils % (A) 1 %; HCT 34.4 % (34.0-46.0); HGB 11.2 gm/dL (11.4-16.0); Hypochromasia Slight; Lymphocytes # (A) 1.1 k/uL (1.0-4.8); Lymphocytes % (A) 10 %; MCH 31.2 pg (25.0-35.0); MCHC 32.4 g/dL (31.0-37.0); MCV 96.2 fL (80.0-100.0); Mean Platelet Volume 8.2; Monocytes # (A) 0.5 k/uL (0-1.0); Monocytes % (A) 4 %; Neutrophils # (A) 9.6 k/uL (1.3-7.7); Neutrophils % (A) 83 %; Platelet Count 250 k/uL (150-450); RBC 3.58 m/uL (3.80-5.40); WBC 11.5 k/uL (3.8-10.6)
[2017-08-19 12:32] LABS: Albumin 3.9 g/dL (3.5-5.0); Potassium 4.7 mmol/L (3.5-5.1); Total Bilirubin 0.8 mg/dL (0.2-1.3); Total Protein 7.2 g/dL (6.3-8.2)
--- NOTE | 2017-08-19 12:33 | PN ---
PROGRESS NOTE Mrs. Corrigan is a 71-year-old female who presented with yra-[id number]-elevation myocardial infarction, underwent cardiac catheterization yesterday and was found to have severe stenosis in the LAD, diagonal branch, as well as disease in the circumflex. Her right coronary artery had no evidence of high-grade stenosis. She underwent angioplasty of her diagonal branch by Dr. Macedo and stenting of the LAD. She is doing well this morning. She denies any chest pain. Her breathing has been stable. She denies any dizziness. She underwent dialysis yesterday. She denies any nausea or vomiting. She continues to be at this time on: 1. Aspirin 81 mg daily. 2. Amiodarone 100 mg daily. 3. Lipitor 80 mg daily. 4. Plavix 75 mg daily. 5. Diltiazem 30 mg 3 times a day. 6. Zetia 10 mg daily. 7. Lasix 80 mg twice a day. 8. Isosorbide mononitrate 60 mg daily. 9. Metoprolol succinate 100 mg daily. 10.Renvela. 11.Protonix. PHYSICAL EXAMINATION: Blood pressure 107/60 with a heart rate in the 80s. LUNGS: Clear. HEART: Regular rate and rhythm. S1, S2. No S3. No rub appreciated. ABDOMEN: Soft, obese, nontender. EXTREMITIES: No significant edema. Right groin with ecchymosis but no significant hematoma. IMPRESSION: 1. Status post stenting of the left anterior descending coronary artery and angioplasty of diagonal branch. 2. Hypertension. 3. Hyperlipidemia. 4. End-stage renal disease. RECOMMENDATION: Will continue current therapy, follow her renal function. If she remains stable , I would expect she should be able to be discharged home tomorrow and follow up with Dr. Combs as an outpatient. MMODL / IJN: [id number] / [email or web address]
[2017-08-19 16:43] LABS: Glucose,Whole Blood 158 mg/dL (75-99)
[2017-08-19] MEDS: ATORVASTATIN 80 MG TAB PO SCH (20:22)
[2017-08-19 20:52] LABS: Glucose,Whole Blood 199 mg/dL (75-99)
[2017-08-19] MEDS: INSULIN DETEMIR 100 UNIT/ML 10 ML VIAL SQ SCH (22:17)
[2017-08-20 06:16] LABS: Glucose,Whole Blood 157 mg/dL (75-99)
[2017-08-20 06:29] LABS: Anisocytosis Slight; Basophils # (A) 0.1 k/uL (0-0.2); Basophils % (A) 1 %; Eosinophils # (A) 0.2 k/uL (0-0.7); Eosinophils % (A) 2 %; HCT 31.9 % (34.0-46.0); HGB 10.2 gm/dL (11.4-16.0); Hypochromasia Slight; Lymphocytes # (A) 2.3 k/uL (1.0-4.8); Lymphocytes % (A) 18 %; MCH 30.9 pg (25.0-35.0); MCHC 32.1 g/dL (31.0-37.0); MCV 96.2 fL (80.0-100.0); Mean Platelet Volume 8.4; Monocytes # (A) 0.9 k/uL (0-1.0); Monocytes % (A) 7 %; Neutrophils # (A) 9.3 k/uL (1.3-7.7); Neutrophils % (A) 70 %; Platelet Count 228 k/uL (150-450); RBC 3.32 m/uL (3.80-5.40); RDW 16.2 % (11.5-15.5); WBC 13.2 k/uL (3.8-10.6)
[2017-08-20 06:36] LABS: Albumin 3.6 g/dL (3.5-5.0); Potassium 4.5 mmol/L (3.5-5.1); Total Bilirubin 0.5 mg/dL (0.2-1.3); Total Protein 6.7 g/dL (6.3-8.2)
[2017-08-20] MEDS: SEVELAMER 800 MG TAB PO SCH ×3 (06:51→17:25)
[2017-08-20] MEDS: PANTOPRAZOLE 40 MG TABLET PO SCH (06:51)
[2017-08-20] MEDS: INSULIN ASPART 100 UNIT/ML 1 ML 10 ML VIAL SQ SCH ×3 (06:51→17:29)
--- NOTE | 2017-08-20 08:13 | P.PN ---
Subjective Patient is seen in follow-up for end-stage renal disease. She is maintained on hemodialysis on a Monday schedule. Patient presented with dyspnea and chest pain. She does of history of diastolic CHF with moderate aortic stenosis and mitral regurgitation. Patient underwent cardiac catheterization on August 18, 2017 and had a stent placed to the mid-LAD and balloon angioplasty of the first diagonal branch of the LAD. Denies any active chest pain or shortness of breath. No active complaints. Tolerated hemodialysis well yesterday. Vital signs are stable. General: The patient appeared well nourished and normally developed. HEENT: Head exam is unremarkable. Neck is without jugular venous distension. LUNGS: Lungs are clear to auscultation and percussion. Breath sounds decreased. HEART: Rate and Rhythm are regular. First and second heart sounds normal. No murmurs, rubs or gallops. ABDOMEN: Abdominal exam reveals normal bowel sounds. Non-tender and non- distended. No evidence of peritonitis. EXTREMITITES: No clubbing, cyanosis, or edema. Objective - Vital Signs Vital signs: Vital Signs Temp 98.9 F 08/20/17 00:00 Pulse 81 08/20/17 04:00 Resp 20 08/20/17 04:00 BP 142/64 08/20/17 04:00 Pulse Ox 94 L 08/20/17 00:00 Intake & Output 08/19/17 08/20/17 08/20/17 18:59 06:59 18:59 Intake Total 900 Output Total 0 Balance 900 0 Weight 94 kg Intake: Oral 900 Output: Stool 0 Other: Voiding Method Urinal # Voids 0 # Bowel Movements 1 - Labs CBC & Chem 7: 08/20/17 05:32 08/20/17 05:32 Labs: Abnormal Lab Results - Last 24 Hours (Table) 08/19/17 08/19/17 08/19/17 Range/Units 11:45 11:56 11:56 WBC 11.5 H (3.8-10.6) k/uL RBC 3.58 L (3.80-5.40) m/uL Hgb 11.2 L (11.4-16.0) gm/dL Hct (34.0-46.0) % RDW 16.0 H (11.5-15.5) % Neutrophils # 9.6 H (1.3-7.7) k/uL Sodium 136 L (137-145) mmol/L Chloride 93 L (98-107) mmol/L Carbon Dioxide (22-30) mmol/L BUN (7-17) mg/dL Creatinine 2.70 H (0.52-1.04) mg/dL Glucose 169 H (74-99) mg/dL POC Glucose (mg/dL) 162 H (75-99) mg/dL Alkaline Phosphatase 178 H (38-126) U/L 08/19/17 08/19/17 08/20/17 Range/Units 16:41 20:51 05:32 WBC 13.2 H (3.8-10.6) k/uL RBC 3.32 L (3.80-5.40) m/uL Hgb 10.2 L (11.4-16.0) gm/dL Hct 31.9 L (34.0-46.0) % RDW 16.2 H (11.5-15.5) % Neutrophils # 9.3 H (1.3-7.7) k/uL Sodium (137-145) mmol/L Chloride (98-107) mmol/L Carbon Dioxide (22-30) mmol/L BUN (7-17) mg/dL Creatinine (0.52-1.04) mg/dL Glucose (74-99) mg/dL POC Glucose (mg/dL) 158 H 199 H (75-99) mg/dL Alkaline Phosphatase (38-126) U/L 08/20/17 08/20/17 Range/Units 05:32 06:14 WBC (3.8-10.6) k/uL RBC (3.80-5.40) m/uL Hgb (11.4-16.0) gm/dL Hct (34.0-46.0) % RDW (11.5-15.5) % Neutrophils # (1.3-7.7) k/uL Sodium 132 L (137-145) mmol/L Chloride 94 L (98-107) mmol/L Carbon Dioxide 21 L (22-30) mmol/L BUN 25 H (7-17) mg/dL Creatinine 4.00 H (0.52-1.04) mg/dL Glucose 126 H (74-99) mg/dL POC Glucose (mg/dL) 157 H (75-99) mg/dL Alkaline Phosphatase 161 H (38-126) U/L Assessment and Plan Plan: Assessment: #1. End-stage renal disease maintained on hemodialysis on a Monday schedule via right chest permacath. She does have a maturing left upper extremity AV fistula. #2. Coronary artery disease status post cardiac catheterization with stent placement to the mid-LAD and angioplasty of the first diagonal branch of the LAD on August 18, 2017. #3. History of diastolic CHF with moderate aortic stenosis and mitral regurgitation. #4. 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 #5. Hypertension with chronic kidney disease. Controlled. #6. Insulin dependent diabetes mellitus. #7. Metabolic acidosis secondary to chronic kidney disease. Plan: Next hemodialysis on Monday. Maintain current antihypertensives, including Lasix. Add oral sodium bicarbonate 650 mg twice daily. Potential discharge once cleared by cardiology.
[2017-08-20] MEDS: ASPIRIN 81 MG PO SCH (09:24)
[2017-08-20] MEDS: LORATADINE 10 MG TAB PO SCH (09:24)
[2017-08-20] MEDS: GABAPENTIN 300 MG CAP PO SCH ×2 (09:24→20:52)
[2017-08-20] MEDS: AMIODARONE 100 MG TAB PO SCH (09:24)
[2017-08-20] MEDS: SODIUM BICARBONATE TAB 650 MG TAB PO SCH ×2 (09:24→20:52)
[2017-08-20] MEDS: DILTIAZEM ORAL 30 MG TAB PO SCH ×3 (09:24→22:11)
[2017-08-20] MEDS: ISOSORBIDE MONONITRATE ER 60 MG TAB.ER.24H PO SCH (09:24)
[2017-08-20] MEDS: METOPROLOL SUCCINATE (ER) 100 MG TAB.ER.24H PO SCH (09:24)
[2017-08-20] MEDS: FUROSEMIDE 80 MG TAB PO SCH ×2 (09:24→16:25)
[2017-08-20] MEDS: EZETIMIBE 10 MG TAB PO SCH (09:24)
[2017-08-20] MEDS: DOCUSATE 100 MG CAP PO SCH ×2 (09:24→20:52)
[2017-08-20] MEDS: CLOPIDOGREL 75 MG TAB PO SCH (09:24)
[2017-08-20] MEDS: DULoxetine HCL 60 MG CAPSULE.DR PO SCH (09:25)
--- NOTE | 2017-08-20 11:13 | PN ---
PROGRESS NOTE Ms. Corrigan is a 71-year-old female with history of end-stage renal disease, on hemodialysis, history of coronary artery disease who underwent cardiac catheterization and stenting of the LAD and angioplasty of the diagonal branch. She is doing well this morning. She is denying any chest pain. Her breathing is stable. She denies any dizziness or palpitation. She is scheduled to undergo dialysis. She denies any dizziness palpitation. She denies any nausea. She continues to be at this time on amiodarone 100 mg daily, aspirin once a day, Lipitor 80 mg daily, Plavix 75 mg daily, diltiazem 30 mg 3 times a day, Zetia 10 mg daily, Lasix 80 mg twice a day, insulin, isosorbide mononitrate 60 mg daily, metoprolol succinate 100 mg daily. PHYSICAL EXAMINATION: Blood pressure 107/50 with a heart rate in the 80s. LUNGS: Clear. Heart regular rate and rhythm, S1, S2. No S3. No rub. ABDOMEN: Soft, nontender, obese. EXTREMITIES: No edema. Mild ecchymosis on the right side. LAB DATA: Reveals BUN creatinine 25 and 4.0, potassium 4.5, hemoglobin of 10.2. IMPRESSION: 1. Non ST-segment elevation myocardial infarction, status post stenting of the LAD and angioplasty of the diagonal branch. 2. End-stage renal disease. 3. Hypertension. 4. Hyperlipidemia. 5. Prior history of paroxysmal atrial fibrillation. RECOMMENDATION: From the cardiac standpoint, we will continue present therapy. Increase level of activity. I would expect she should be able to be discharged home soon and follow up as an outpatient with Dr. Combs. MMODL / SUBHAN: [id number] /
[2017-08-20 11:36] LABS: Glucose,Whole Blood 80 mg/dL (75-99)
--- NOTE | 2017-08-20 11:51 | P.PN ---
Subjective Progress Note Date: 08/20/17 Principal diagnosis: elevated trop Patient reported some improvement with her symptoms but still feeling weak concerned about going home as patient lives at home alone and needs assistance with transfer from bed to chair. Patient is denying chest pain, shortness breath, nausea, vomiting, dumping or dizziness Objective - Vital Signs Vital signs: Vital Signs Temp 98 F 08/20/17 08:00 Pulse 84 08/20/17 08:00 Resp 16 08/20/17 08:00 BP 107/51 08/20/17 08:00 Pulse Ox 92 L 08/20/17 08:00 Intake & Output 08/19/17 08/20/17 08/20/17 18:59 06:59 18:59 Intake Total 900 Output Total 0 0 Balance 900 0 0 Weight 94 kg Intake: Oral 900 Output: Stool 0 0 Other: Voiding Method Urinal Urinal # Voids 0 # Bowel Movements 1 - Exam Gen.: in stated age, no acute distress Heart: Normal S1-S2 Lungs: Clear to auscultation bilaterally Abdomen: Soft, no tenderness, positive bowel sounds in all 4 quadrant no guarding or rebound Skin: No new rash Psych: Alert and oriented 3 Neuro: No focal deficit Right upper chest dialysis catheter seems to be intact in place - Labs CBC & Chem 7: 08/20/17 05:32 08/20/17 05:32 Labs: Abnormal Lab Results - Last 24 Hours (Table) 08/19/17 08/19/17 08/19/17 Range/Units 11:45 11:56 11:56 WBC 11.5 H (3.8-10.6) k/uL RBC 3.58 L (3.80-5.40) m/uL Hgb 11.2 L (11.4-16.0) gm/dL Hct (34.0-46.0) % RDW 16.0 H (11.5-15.5) % Neutrophils # 9.6 H (1.3-7.7) k/uL Sodium 136 L (137-145) mmol/L Chloride 93 L (98-107) mmol/L Carbon Dioxide (22-30) mmol/L BUN (7-17) mg/dL Creatinine 2.70 H (0.52-1.04) mg/dL Glucose 169 H (74-99) mg/dL POC Glucose (mg/dL) 162 H (75-99) mg/dL Alkaline Phosphatase 178 H (38-126) U/L 08/19/17 08/19/17 08/20/17 Range/Units 16:41 20:51 05:32 WBC 13.2 H (3.8-10.6) k/uL RBC 3.32 L (3.80-5.40) m/uL Hgb 10.2 L (11.4-16.0) gm/dL Hct 31.9 L (34.0-46.0) % RDW 16.2 H (11.5-15.5) % Neutrophils # 9.3 H (1.3-7.7) k/uL Sodium (137-145) mmol/L Chloride (98-107) mmol/L Carbon Dioxide (22-30) mmol/L BUN (7-17) mg/dL Creatinine (0.52-1.04) mg/dL Glucose (74-99) mg/dL POC Glucose (mg/dL) 158 H 199 H (75-99) mg/dL Alkaline Phosphatase (38-126) U/L 08/20/17 08/20/17 Range/Units 05:32 06:14 WBC (3.8-10.6) k/uL RBC (3.80-5.40) m/uL Hgb (11.4-16.0) gm/dL Hct (34.0-46.0) % RDW (11.5-15.5) % Neutrophils # (1.3-7.7) k/uL Sodium 132 L (137-145) mmol/L Chloride 94 L (98-107) mmol/L Carbon Dioxide 21 L (22-30) mmol/L BUN 25 H (7-17) mg/dL Creatinine 4.00 H (0.52-1.04) mg/dL Glucose 126 H (74-99) mg/dL POC Glucose (mg/dL) 157 H (75-99) mg/dL Alkaline Phosphatase 161 H (38-126) U/L Assessment and Plan Assessment: 1. Coronary artery disease status post angioplasty. We'll continue evidence based medicine continue monitoring patient's closely discharge planning based on clinical progress. 2. End-stage renal disease. Patient received dialysis today plan for another course of dialysis in the morning with follow-up with nephrology recommendation discussed with nursing staff. 3. Fatigue. Physical and neck patient will therapy to evaluate patient's a day and we will consider case management evaluation in the morning prior to discharge and consider discharging patient home with home care. Will transfer patient to general medical floor at this point with telemetry 4. Hyperlipidemia. Continue statin. 5. Hypertension with continual blood pressure medication with holding parameters. Discharge planning based on clinical progress
[2017-08-20] MEDS: FERROUS SULFATE 325 MG TAB PO SCH (12:51)
[2017-08-20] MEDS: MAGNESIUM OXIDE 400 MG TAB PO SCH (12:51)
[2017-08-20 17:29] LABS: Glucose,Whole Blood 190 mg/dL (75-99)
[2017-08-20 20:30] LABS: Glucose,Whole Blood 192 mg/dL (75-99)
[2017-08-20] MEDS: ATORVASTATIN 80 MG TAB PO SCH (20:52)
[2017-08-20] MEDS: INSULIN DETEMIR 100 UNIT/ML 10 ML VIAL SQ SCH (22:11)
[2017-08-21 07:12] LABS: Glucose,Whole Blood 188 mg/dL (75-99)
[2017-08-21] MEDS: SEVELAMER 800 MG TAB PO SCH (07:36)
[2017-08-21] MEDS: AMIODARONE 100 MG TAB PO SCH (07:36)
[2017-08-21] MEDS: PANTOPRAZOLE 40 MG TABLET PO SCH (07:36)
[2017-08-21] MEDS: INSULIN ASPART 100 UNIT/ML 1 ML 10 ML VIAL SQ SCH (07:36)
[2017-08-21] MEDS: DILTIAZEM ORAL 30 MG TAB PO SCH (07:37)
[2017-08-21] MEDS: DOCUSATE 100 MG CAP PO SCH (07:37)
[2017-08-21] MEDS: ASPIRIN 81 MG PO SCH (07:37)
[2017-08-21] MEDS: CLOPIDOGREL 75 MG TAB PO SCH (07:37)
[2017-08-21] MEDS: ISOSORBIDE MONONITRATE ER 60 MG TAB.ER.24H PO SCH (07:38)
[2017-08-21] MEDS: GABAPENTIN 300 MG CAP PO SCH (07:38)
[2017-08-21] MEDS: EZETIMIBE 10 MG TAB PO SCH (07:38)
[2017-08-21] MEDS: DULoxetine HCL 60 MG CAPSULE.DR PO SCH (07:38)
[2017-08-21] MEDS: FUROSEMIDE 80 MG TAB PO SCH (07:38)
[2017-08-21] MEDS: METOPROLOL SUCCINATE (ER) 100 MG TAB.ER.24H PO SCH (07:39)
[2017-08-21] MEDS: LORATADINE 10 MG TAB PO SCH (07:39)
[2017-08-21] MEDS: SODIUM BICARBONATE TAB 650 MG TAB PO SCH (07:39)
[2017-08-21 07:52] LABS: Anisocytosis Slight; Basophils # (A) 0.1 k/uL (0-0.2); Basophils % (A) 0 %; Eosinophils # (A) 0.3 k/uL (0-0.7); Eosinophils % (A) 3 %; HGB 9.7 gm/dL (11.4-16.0); Lymphocytes # (A) 1.9 k/uL (1.0-4.8); Lymphocytes % (A) 19 %; MCH 30.3 pg (25.0-35.0); MCHC 32.3 g/dL (31.0-37.0); MCV 93.8 fL (80.0-100.0); Mean Platelet Volume 8.1; Monocytes # (A) 0.8 k/uL (0-1.0); Monocytes % (A) 8 %; Neutrophils # (A) 7.1 k/uL (1.3-7.7); Neutrophils % (A) 68 %; Platelet Count 171 k/uL (150-450); WBC 10.5 k/uL (3.8-10.6)
[2017-08-21 08:18] VITALS: BP 137/66; PULSE 83; RESP 18; TEMP 98.2
--- NOTE | 2017-08-21 09:36 | P.PN ---
Subjective Patient is seen in follow-up for end-stage renal disease. She is maintained on hemodialysis on a Monday schedule. Patient presented with dyspnea and chest pain. She does of history of diastolic CHF with moderate aortic stenosis and mitral regurgitation. Patient underwent cardiac catheterization on August 18, 2017 and had a stent placed to the mid-LAD and balloon angioplasty of the first diagonal branch of the LAD. Denies any active chest pain or shortness of breath. No active complaints. She is eager to go home. Working with physical therapy. Vital signs are stable. General: The patient appeared well nourished and normally developed. HEENT: Head exam is unremarkable. Neck is without jugular venous distension. LUNGS: Lungs are clear to auscultation and percussion. Breath sounds decreased. HEART: Rate and Rhythm are regular. First and second heart sounds normal. No murmurs, rubs or gallops. ABDOMEN: Abdominal exam reveals normal bowel sounds. Non-tender and non- distended. No evidence of peritonitis. EXTREMITITES: No clubbing, cyanosis, or edema. Objective - Vital Signs Vital signs: Vital Signs Temp 98.2 F 08/21/17 07:10 Pulse 83 08/21/17 07:10 Resp 18 08/21/17 07:10 BP 137/66 08/21/17 07:10 Pulse Ox 92 L 08/21/17 07:10 Intake & Output 08/20/17 08/21/17 08/21/17 18:59 06:59 18:59 Intake Total 350 Output Total 0 0 Balance 350 0 Weight 93 kg Intake: Oral 350 Output: Urine 0 Stool 0 0 Other: Voiding Method Urinal Diaper # Voids 0 - Labs CBC & Chem 7: 08/21/17 07:11 08/20/17 05:32 Labs: Abnormal Lab Results - Last 24 Hours (Table) 08/20/17 08/20/17 08/21/17 Range/Units 17:22 20:23 07:10 RBC (3.80-5.40) m/uL Hgb (11.4-16.0) gm/dL Hct (34.0-46.0) % RDW (11.5-15.5) % POC Glucose (mg/dL) 190 H 192 H 188 H (75-99) mg/dL 08/21/17 Range/Units 07:11 RBC 3.20 L (3.80-5.40) m/uL Hgb 9.7 L (11.4-16.0) gm/dL Hct 30.0 L (34.0-46.0) % RDW 16.0 H (11.5-15.5) % POC Glucose (mg/dL) (75-99) mg/dL Assessment and Plan Plan: Assessment: #1. End-stage renal disease maintained on hemodialysis on a Monday schedule via right chest permacath. She does have a maturing left upper extremity AV fistula. #2. Coronary artery disease status post cardiac catheterization with stent placement to the mid-LAD and angioplasty of the first diagonal branch of the LAD on August 18, 2017. #3. History of diastolic CHF with moderate aortic stenosis and mitral regurgitation. #4. 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 #5. Hypertension with chronic kidney disease. Controlled. #6. Insulin dependent diabetes mellitus. #7. Metabolic acidosis secondary to chronic kidney disease. Plan: Next hemodialysis on Monday. Maintain current antihypertensives, including Lasix. Maintain oral sodium bicarbonate 650 mg twice daily. Anticipate discharge soon.
[2017-08-21 11:45] LABS: Glucose,Whole Blood 331 mg/dL (75-99)
--- NOTE | 2017-08-21 12:33 | P.PN ---
Subjective Progress Note Date: 08/21/17 Mrs. Corrigan is a pleasant 71-year-old female with end-stage renal disease on HD who underwent cardiac catheterization and angioplasty of the LAD and diagonal branch. She states she is feeling better with no symptoms of chest pain , palpitations, shortness of breath or dizziness. Blood pressure this morning 137/66 heart rate 83 and maintain oxygen saturation on room air. Right groin is soft, non-tender, no hematoma with ecchymosis noted and no bleeding. Laboratory data reviewed, hgb 9.7, plt 171. Objective - Vital Signs Vital signs: Vital Signs Temp 98.2 F 08/21/17 07:10 Pulse 83 08/21/17 07:10 Resp 18 08/21/17 07:10 BP 137/66 08/21/17 07:10 Pulse Ox 92 L 08/21/17 07:10 Intake & Output 08/20/17 08/21/17 08/21/17 18:59 06:59 18:59 Intake Total 350 Output Total 0 0 Balance 350 0 Weight 93 kg Intake: Oral 350 Output: Urine 0 Stool 0 0 Other: Voiding Method Urinal Diaper # Voids 0 - Exam GENERAL: Well-appearing, well-nourished and in no acute distress. NECK: Supple without JVD or thyromegaly. LUNGS: Breath sounds clear to auscultation bilaterally. Respiration equal and unlabored. No wheezes, rales or rhonchi. HEART: Regular rate and rhythm without murmurs, rubs or gallops. S1 and S2 heard. EXTREMITIES: Normal range of motion, no edema. No clubbing or cyanosis. Peripheral pulses intact and strong. RIGHT GROIN: mild ecchymosis, no hematoma, no bleeding, no pain. - Labs CBC & Chem 7: 08/21/17 07:11 08/20/17 05:32 Labs: Abnormal Lab Results - Last 24 Hours (Table) 08/20/17 08/20/17 08/21/17 Range/Units 17:22 20:23 07:10 RBC (3.80-5.40) m/uL Hgb (11.4-16.0) gm/dL Hct (34.0-46.0) % RDW (11.5-15.5) % POC Glucose (mg/dL) 190 H 192 H 188 H (75-99) mg/dL 08/21/17 08/21/17 Range/Units 07:11 11:44 RBC 3.20 L (3.80-5.40) m/uL Hgb 9.7 L (11.4-16.0) gm/dL Hct 30.0 L (34.0-46.0) % RDW 16.0 H (11.5-15.5) % POC Glucose (mg/dL) 331 H (75-99) mg/dL Assessment and Plan Assessment: ASSESSMENT 1. Non-ST elevation myocardial infarction, s/p stenting of LAD and angioplasty of diagonal branch 2. End stage renal disease on hemodialysis 3. Hypertension 4. Dyslipidemia 5. Paroxysmal atrial fibrillation on terminal operator anti-coagulation. Currently maintaining sinus mechanism PLAN From a cardiac perspective we will continue present therapy. Follow-up with Dr. Combs in 1-2 weeks. The above impression and plan of care have been discussed and directed by the signing physician. Kourtney Clayton, nurse practitioner, acting as scribe for signing physician.
--- NOTE | 2017-08-21 12:57 | P.DS ---
Providers Date of admission: 08/16/17 00:54 Attending physician: Mary Colvin Consults: 08/16/17 10:05 Consult Physician Routine Consulting Provider: Monique Hernandez Consult Reason/Comments: chest pain Do you want consulting provider notified?: Yes Placement Type Exists?: Yes 08/16/17 10:07 Consult Physician Routine Consulting Provider: Tc Manrique Consult Reason/Comments: dialysis Do you want consulting provider notified?: Yes Placement Type Exists?: Yes 08/18/17 13:14 Consult Physician Routine Consulting Provider: [facility] Consult Reason/Comments: Post Interventional patient Do you want consulting provider notified?: Already Contacted Primary care physician: [facility] Course: This is a 71-year-old female patient of Dr. Radha Botello with past medical history of atrial fibrillation, coronary artery disease status post myocardial infarction 2015, has history of triple-vessel disease but was considered high risk for bypass, on conservative treatment, chronic diastolic heart failure, diabetes mellitus type 2, hyperlipidemia, hypertension, end-stage renal disease on hemodialysis, peripheral neuropathy.patient was recently hospitalized at [facility]05/2017 in with significant shortness of breath, she was suggestive of pulmonary edema with acute kidney injury on CK D4 in the December 2016 patient requiring hemodialysis. Patient was seen in emergency room secondary to chest pain, left side with radiation to the left arm into her left jaw, patient was sitting at 9:00 in the evening, when this chest pain started, it lasted until her ER visit. She had 3 nitroglycerin in the emergency room which did not resolve the issue, patient does not have any other neurologic complaints include motor deficits that's new , no migraines no new medications from any physicians, no dizziness no lightheadedness no palpitations no syncope. Emergency room, chest x-ray showed mild pulmonary fibrosis, no acute lung disease, heart rate in the 80s, oxygen of 2 L pulse ox 98%, EKG shows sinus tachycardia with right bundle branch block, nonspecific ST-T wave changes. Initial troponin of 0.012, creatinine of 3.0 consult was made with cardiology, and Dr. Manrique nephrology and hemodialysis and unstable angina during this admission. 08/17: Patient is scheduled for heart catheterization tomorrow with Dr. Lauyrn Manrique is following with plan for hemodialysis today and nephrology has cleared her for heart catheterization. BUN is 37 creatinine 3.9 , sodium 133, potassium 5.2 and chloride 95. Echocardiogram reveals EF of 55-60 % with L a severely dilated greater than 40, moderate aortic stenosis, moderate mitral regurgitation, mild tricuspid regurgitation 08/18: Patient underwent heart catheterization today with Dr. Combs finding triple-vessel disease and critical lesion involving the mid LAD ostium of the first diagonal and the OM branch of the circumflex. Intermediate disease noted in the mid circumflex and also in the right coronary artery. Plan is for stent placement of the LAD and possible balloon and she'll plasty of the diagonal and also stenting of the OM branch. Dr. Macedo is performing these. 08/19: Patient continued to be hemodynamically stable feeling lethargic this morning no major events reported by nursing staff 08/20: Patient reported some improvement with her symptoms but still feeling weak concerned about going home as patient lives at home alone and needs assistance with transfer from bed to chair. Patient is denying chest pain, shortness breath, nausea, vomiting, dumping or dizziness 08/21: Patient evaluated today. She is doing well status post her cardiac catheterization, no hematoma or bleeding noted to cath site. She denies any shortness of breath or chest pain. She will be discharged home today with follow up with her primary care provider and cardiology. She is wheelchair- bound, she declines any home care or physical therapy. Discharge diagnoses 1. Coronary artery disease status post angioplasty. 2. End-stage renal disease. 3. Fatigue. 4. Hyperlipidemia. 5. Hypertension The above impression and plan of care have been discussed and directed by signing physician, patient was seen and evaluation by signing physician. Jossie Negron nurse practitioner acting as scribe. Patient Condition at Discharge: Good Plan - Discharge Summary Discharge Rx Participant: No New Discharge Prescriptions: New Atorvastatin [Lipitor] 80 mg PO HS #30 tab Clopidogrel [Plavix] 75 mg PO DAILY #30 tab Sodium Bicarbonate Tab 650 mg PO BID #60 tab Continue DULoxetine HCL [Cymbalta] 60 mg PO DAILY Fish Oil/Dha/Epa [Fish Oil 1,200 mg Fish Oil] 1 cap PO MOWEFR Amiodarone HCl [Pacerone] 100 mg PO DAILY Apixaban [Eliquis] 2.5 mg PO BID Docusate [Colace] 100 mg PO BID Ezetimibe [Zetia] 10 mg PO DAILY Isosorbide Mononitrate ER [Imdur] 30 mg PO DAILY Gabapentin [Neurontin] 300 mg PO BID #60 capsule Omeprazole 20 mg PO DAILY Cranberry 4200mg-Vitamin C 1 tab PO BID Cholecalciferol (Vitamin D3) [Vitamin D3] 2,000 unit PO DAILY Furosemide [Lasix] 80 mg PO BID@0900,1600 tab Magnesium Oxide [Mag-Ox] 250 mg PO DAILY Ferrous Sulfate [Iron (65 MG Elemental)] 325 mg PO DAILY Metoprolol Succinate (ER) [Toprol XL] 100 mg PO DAILY Insulin Aspart [NovoLOG (formulary)] See Protocol SQ AC-TID Sevelamer [Renvela] 800 mg PO TID-W/MEALS #90 tab Insulin Glargine [Lantus] 30 unit SQ HS #0 Insulin Aspart [NovoLOG (formulary)] 10 unit SQ AC-TID Insulin Glargine [Lantus] 35 unit SQ AC-BRKFST Diltiazem Oral [Cardizem*] 30 mg PO TID Cetirizine HCl [Zyrtec] 10 mg PO DAILY Discontinued Aspirin EC [Ecotrin Low Dose] 81 mg PO DAILY Discharge Medication List DULoxetine HCL [Cymbalta] 60 mg PO DAILY 08/04/14 [History] Fish Oil/Dha/Epa [Fish Oil 1,200 mg Fish Oil] 1 cap PO MOWEFR 08/04/14 [History] Amiodarone HCl [Pacerone] 100 mg PO DAILY 11/22/15 [History] Apixaban [Eliquis] 2.5 mg PO BID 11/22/15 [History] Docusate [Colace] 100 mg PO BID 11/22/15 [History] Ezetimibe [Zetia] 10 mg PO DAILY 11/22/15 [History] Isosorbide Mononitrate ER [Imdur] 30 mg PO DAILY 11/22/15 [History] Gabapentin [Neurontin] 300 mg PO BID #60 capsule 11/27/15 [Rx] Cranberry 4200mg-Vitamin C 1 tab PO BID 12/25/16 [History] Omeprazole 20 mg PO DAILY 12/25/16 [History] Cholecalciferol (Vitamin D3) [Vitamin D3] 2,000 unit PO DAILY 12/31/16 [History] Furosemide [Lasix] 80 mg PO BID@0900,1600 tab 01/13/17 [Rx] Ferrous Sulfate [Iron (65 MG Elemental)] 325 mg PO DAILY 05/05/17 [History] Insulin Aspart [NovoLOG (formulary)] See Protocol SQ AC-TID 05/05/17 [History] Magnesium Oxide [Mag-Ox] 250 mg PO DAILY 05/05/17 [History] Metoprolol Succinate (ER) [Toprol XL] 100 mg PO DAILY 05/05/17 [History] Insulin Glargine [Lantus] 30 unit SQ HS #0 05/15/17 [Rx] Sevelamer [Renvela] 800 mg PO TID-W/MEALS #90 tab 05/15/17 [Rx] Cetirizine HCl [Zyrtec] 10 mg PO DAILY 08/16/17 [History] Diltiazem Oral [Cardizem*] 30 mg PO TID 08/16/17 [History] Insulin Aspart [NovoLOG (formulary)] 10 unit SQ AC-TID 08/16/17 [History] Insulin Glargine [Lantus] 35 unit SQ AC-BRKFST 08/16/17 [History] Atorvastatin [Lipitor] 80 mg PO HS #30 tab 08/21/17 [Rx] Clopidogrel [Plavix] 75 mg PO DAILY #30 tab 08/21/17 [Rx] Sodium Bicarbonate Tab 650 mg PO BID #60 tab 08/21/17 [Rx] Follow up Appointment(s)/Referral(s): Meghan Garcia MD [Primary Care Provider] - 08/28/17 10:00 am Chava Combs MD [STAFF PHYSICIAN] - 08/29/17 2:15 pm Patient Instructions/Handouts: *Surgery [facility] - After Heart Catheterization - Application Security Specialist Instructions, Atorvastatin (By mouth), Clopidogrel (By mouth), Sodium Bicarbonate (By mouth) Discharge Disposition: HOME SELF-CARE
== END 2017-08-21 12:25 | disposition home or self-care (01) | DRG 246 ==
LOC: EC 22:38 → 6SEL 08-16 00:54 → OBSVTOIN 08-16 00:54 → 6SEL 08-16 05:36 → 5MS5E 08-20 14:55
PROVIDERS: ADMIT Family Medicine; ATTEND Family Medicine
PROC: 5A1D70Z Performance of Urinary Filtration, Intermittent, Less than 6 Hours Per Day (ICD-10-PCS; 2017-08-16)
PROC: B2111ZZ Fluoroscopy of Multiple Coronary Arteries using Low Osmolar Contrast (ICD-10-PCS; principal; 2017-08-18 12:00)
PROC: 4A023N7 Measurement of Cardiac Sampling and Pressure, Left Heart, Percutaneous Approach (ICD-10-PCS; principal; 2017-08-18 12:00)
PROC: 027035Z Dilation of Coronary Artery, One Artery with Two Drug-eluting Intraluminal Devices, Percutaneous Approach (ICD-10-PCS; 2017-08-18 12:00)
DX: I21.4 Non-ST elevation (NSTEMI) myocardial infarction (principal); N18.6 End stage renal disease; I13.2 Hypertensive heart and chronic kidney disease with heart failure and with stage 5 chronic kidney disease, or end stage renal disease; E87.2 Acidosis; E11.22 Type 2 diabetes mellitus with diabetic chronic kidney disease; E66.01 Morbid (severe) obesity due to excess calories; I08.3 Combined rheumatic disorders of mitral, aortic and tricuspid valves; E11.42 Type 2 diabetes mellitus with diabetic polyneuropathy; I50.32 Chronic diastolic (congestive) heart failure; I25.110 Atherosclerotic heart disease of native coronary artery with unstable angina pectoris; E78.5 Hyperlipidemia, unspecified; F32.9 Major depressive disorder, single episode, unspecified; F41.9 Anxiety disorder, unspecified; G47.30 Sleep apnea, unspecified; G89.29 Other chronic pain; I25.2 Old myocardial infarction; I45.10 Unspecified right bundle-branch block; I48.0 Paroxysmal atrial fibrillation; J84.10 Pulmonary fibrosis, unspecified; K21.9 Gastro-esophageal reflux disease without esophagitis; Z68.39 Body mass index [BMI] 39.0-39.9, adult; Z79.01 Long term (current) use of anticoagulants; Z79.02 Long term (current) use of antithrombotics/antiplatelets; Z79.4 Long term (current) use of insulin; Z79.82 Long term (current) use of aspirin; Z79.899 Other long term (current) drug therapy; Z82.49 Family history of ischemic heart disease and other diseases of the circulatory system; Z82.5 Family history of asthma and other chronic lower respiratory diseases; Z90.710 Acquired absence of both cervix and uterus; Z99.2 Dependence on renal dialysis; Z99.3 Dependence on wheelchair; Z86.14 Personal history of Methicillin resistant Staphylococcus aureus infection; Z98.1 Arthrodesis status; Z88.1 Allergy status to other antibiotic agents; Z88.5 Allergy status to narcotic agent; Z88.8 Allergy status to other drugs, medicaments and biological substances
CPT/HCPCS: 71046; 80048; 80053; 82550; 82553; 83735; 84100; 84132; 84484; 85025; 85610; 85730; 90935; 92921; 93005; 93306; 93458; 99285

== ENCOUNTER 2017-10-05 06:36 | Day surgery (SDC) | payer MEDICARE ==
[2017-09-27 14:47] VITALS: BMI 37.3
[~2017-10-05 06:36] MED LIST: ALPRAZolam 0.25 MG TAB PO PRN; ALPRAZolam 0.5 MG TAB PO PRN; ASPIRIN 325 MG TAB PO STA; ATORVASTATIN 80 MG TAB PO STA; NITROGLYCERIN SL TABS 0.4 MG TAB SUBLINGUAL PRN; SODIUM CHLORIDE 0.9% 1,000 ML in EMPTY BAG 1 BAG IV ONE
[2017-10-05 07:04] LABS: Glucose,Whole Blood 192 mg/dL (75-99)
[2017-10-05 07:17] LABS: Anisocytosis Slight; Basophils # (A) 0.1 k/uL (0-0.2); Basophils % (A) 1 %; Eosinophils # (A) 0.3 k/uL (0-0.7); Eosinophils % (A) 4 %; HCT 31.1 % (34.0-46.0); HGB 9.8 gm/dL (11.4-16.0); Hypochromasia Slight; Lymphocytes # (A) 1.8 k/uL (1.0-4.8); Lymphocytes % (A) 20 %; MCH 30.3 pg (25.0-35.0); MCHC 31.4 g/dL (31.0-37.0); MCV 96.5 fL (80.0-100.0); Macrocytosis Slight; Mean Platelet Volume 8.2; Monocytes # (A) 0.8 k/uL (0-1.0); Monocytes % (A) 8 %; Neutrophils # (A) 5.7 k/uL (1.3-7.7); Neutrophils % (A) 63 %; Platelet Count 211 k/uL (150-450); RBC 3.22 m/uL (3.80-5.40); RDW 17.2 % (11.5-15.5)
[2017-10-05 07:29] LABS: Calcium 9.1 mg/dL (8.4-10.2); Potassium 4.7 mmol/L (3.5-5.1)
[2017-10-05] MEDS ORDERED: BIVALIRUDIN BOLUS 250 MG/50 ML IV ONE ×3 (07:37→07:57)
[2017-10-05] MEDS ORDERED: LIDOCAINE 2% INJ 20 MG/ML SQ ONE ×2 (07:50→07:54)
[2017-10-05] MEDS ORDERED: MIDAZOLAM 2 MG/2 ML VIAL ONE (07:52)
[2017-10-05] MEDS ORDERED: MIDAZOLAM 2 MG/2 ML VIAL IV ONE (07:53)
[2017-10-05] MEDS ORDERED: BIVALIRUDIN 250 MG in SODIUM CHLORIDE 0.9% 50 ML IV ONE (07:59)
[2017-10-05] MEDS: NITROGLYCERIN 1000MCG/10ML SYRINGE INTRACORON ONE ×2 (07:59→08:22)
[2017-10-05] MEDS ORDERED: IOPAMIDOL-370 125ML BTL INJ ONE ×2 (08:22)
[2017-10-05] MEDS ORDERED: CLOPIDOGREL 75 MG TAB ONE (08:26)
[2017-10-05] MEDS ORDERED: IPRATROPIUM-ALBUTEROL 3 ML NEB INHALATION PRN (08:29)
[2017-10-05] MEDS ORDERED: CLOPIDOGREL 75 MG TAB PO ONE (08:30)
[2017-10-05] MEDS ORDERED: [UNRECOGNIZED DRUG - OTHER] PO SCH (09:00)
[2017-10-05] MEDS ORDERED: CRANBERRY 4200 MG PO SCH (09:00)
[2017-10-05] MEDS ORDERED: ACETAMINOPHEN TAB 325 MG TAB PO PRN (09:22)
[2017-10-05] MEDS: AMIODARONE 100 MG TAB PO SCH ×2 (09:42→09:49)
[2017-10-05] MEDS: DULoxetine HCL 60 MG CAPSULE.DR PO SCH ×2 (09:42→09:50)
[2017-10-05] MEDS: DOCUSATE 100 MG CAP PO SCH ×2 (09:42→23:08)
[2017-10-05] MEDS: DILTIAZEM ORAL 30 MG TAB PO SCH ×4 (09:42→23:08)
[2017-10-05] MEDS: LORATADINE 10 MG TAB PO SCH ×2 (09:43→09:50)
[2017-10-05] MEDS: ISOSORBIDE MONONITRATE ER 30 MG TAB.ER.24H PO SCH ×2 (09:43→09:50)
[2017-10-05] MEDS: FUROSEMIDE 80 MG TAB PO SCH ×3 (09:43→17:17)
[2017-10-05] MEDS: EZETIMIBE 10 MG TAB PO SCH ×2 (09:43→09:50)
[2017-10-05] MEDS: GABAPENTIN 300 MG CAP PO SCH ×2 (09:43→23:08)
[2017-10-05] MEDS: SODIUM BICARBONATE TAB 650 MG TAB PO SCH ×2 (09:44→23:08)
[2017-10-05] MEDS: METOPROLOL SUCCINATE (ER) 100 MG TAB.ER.24H PO SCH ×2 (09:44→09:50)
[2017-10-05] MEDS: PANTOPRAZOLE 40 MG TABLET PO SCH ×2 (09:44→09:50)
--- NOTE | 2017-10-05 09:47 | LTR ---
DATE OF SERVICE: October 05, 2017 RE: Hayley Corrigan Dear Dr. Garcia; Ms. Hayley Corrigan underwent successful stenting of the left circumflex with good angiographic results and without any complication. Thank you for allowing us to participate in her care and please do not hesitate to call if you have any question or concern. Sincerely, Nikos Macedo MD MMLULAL / SUBHAN: [id number] /
[2017-10-05] MEDS ORDERED: DARBEPOETIN ALFA 40 MCG/0.4 ML SYRINGE SQ SCH (11:00)
[2017-10-05] MEDS ORDERED: ATROPINE SULFATE 0.1 MG/ML 10ML SYRINGE ONE (11:08)
--- NOTE | 2017-10-05 11:12 | P.NPCON ---
History of Present Illness - Reason for Consult end stage renal disease - History of Present Illness Reason for consultation: End-stage renal disease History of present illness: Patient is a 72-year-old female seen in renal consultation for end-stage renal disease. She is maintained on hemodialysis on a Monday schedule. She has a left upper extremity AV fistula which is being used for hemodialysis. She still has a permacath in place. Patient presented for elective cardiac catheterization. She is known to have coronary artery disease and had 2 stents placed to the right coronary artery in July 2017. She underwent cardiac catheterization this morning and had a stent placed to the OM. She is currently resting in bed. Denies chest pain. No vomiting or diarrhea. Hemodynamically stable. Appetite has been good. No other complaints at this time. Family present at bedside. Vital signs are stable. General: The patient appeared well nourished and normally developed. HEENT: Head exam is unremarkable. Neck is without jugular venous distension. LUNGS: Lungs are clear to auscultation and percussion. Breath sounds decreased. HEART: Rate and Rhythm are regular. First and second heart sounds normal. No murmurs, rubs or gallops. ABDOMEN: Abdominal exam reveals normal bowel sounds. Non-tender and non- distended. No evidence of peritonitis. EXTREMITITES: No clubbing, cyanosis, or edema. Past Medical History Past Medical History: Atrial Fibrillation, Coronary Artery Disease (CAD), Heart Failure, Diabetes Mellitus, GERD/Reflux, Hyperlipidemia, Hypertension, Myocardial Infarction ([place]), Pneumonia, Renal Disease, Sleep Apnea/CPAP/BIPAP Additional Past Medical History / Comment(s): chronic kidney disease diagnosed may 2015; urinary incontinence, uses wheelchair, transfers with assist, aortic stenosis; peripheral neuropathy upper and lower extremity. hemodialysis mon,,mon. occasional O2 use Last Myocardial Infarction Date:: 05/28/2015 History of Any Multi-Drug Resistant Organisms: MRSA Date of last positivie culture/infection: 05/07/17 MDRO Source:: sputum Past Surgical History: Back Surgery, Cholecystectomy, Heart Catheterization, Heart Catheterization With Stent, Hysterectomy, Orthopedic Surgery Additional Past Surgical History / Comment(s): attila carpal tunnel, attila cataracts. Lumbar surgery with decompression off L3-L4 L4-L5 with fusion March 2011 with previous hardware failure L4-L5 and extension of fusion to S1. new back sugery including t8 and t9. has port and fistula for hemodialysis, angioplasty and 2 stents, 08/18/17 Past Anesthesia/Blood Transfusion Reactions: No Reported Reaction Additional Past Anesthesia/Blood Transfusion Reaction / Comment(s): Possible confusion that resolved. Date of Last Stent Placement:: 08/18/17 Smoking Status: Never smoker - Past Family History Father Additional Family Medical History / Comment(s): Brain aneurysm ; age 72 Sister(s) Family Medical History: Hypertension Additional Family Medical History / Comment(s): Aortic stenosis; mitral valve disease Mother Family Medical History: AFIB, CVA/TIA, Hypertension Additional Family Medical History / Comment(s): mother age 83 Daughter(s) Family Medical History: Asthma Son(s) Family Medical History: Asthma Medications and Allergies Home Medications Medication Instructions Recorded Confirmed Type DULoxetine HCL [Cymbalta] 60 mg PO DAILY 08/04/14 10/05/17 History Fish Oil/Dha/Epa [Fish Oil 1,200 1 cap PO MOWEFR 08/04/14 10/05/17 History mg Fish Oil] Amiodarone HCl [Pacerone] 100 mg PO DAILY 11/22/15 10/05/17 History Apixaban [Eliquis] 2.5 mg PO BID 11/22/15 10/05/17 History Docusate [Colace] 100 mg PO BID 11/22/15 10/05/17 History Ezetimibe [Zetia] 10 mg PO DAILY 11/22/15 10/05/17 History Isosorbide Mononitrate ER [Imdur] 30 mg PO DAILY 11/22/15 10/05/17 History Gabapentin [Neurontin] 300 mg PO BID #60 capsule 11/27/15 10/05/17 Rx Cranberry 4200mg-Vitamin C 1 tab PO BID 12/25/16 10/05/17 History Omeprazole 20 mg PO DAILY 12/25/16 10/05/17 History Cholecalciferol (Vitamin D3) 2,000 unit PO DAILY 12/31/16 10/05/17 History [Vitamin D3] Furosemide [Lasix] 80 mg PO BID@0900,1600 tab 01/13/17 10/05/17 Rx Ferrous Sulfate [Iron (65 MG 325 mg PO DAILY 05/05/17 10/05/17 History Elemental)] Insulin Aspart [NovoLOG See Protocol SQ AC-TID 05/05/17 10/05/17 History (formulary)] Magnesium Oxide [Mag-Ox] 250 mg PO DAILY 05/05/17 10/05/17 History Metoprolol Succinate (ER) [Toprol 100 mg PO DAILY 05/05/17 10/05/17 History XL] Sevelamer [Renvela] 800 mg PO TID-W/MEALS #90 tab 05/15/17 10/05/17 Rx Diltiazem Oral [Cardizem*] 30 mg PO TID 08/16/17 10/05/17 History Insulin Aspart [NovoLOG 12 unit SQ AC-BRKFST 08/16/17 10/05/17 History (formulary)] Insulin Glargine [Lantus] 25 unit SQ BID 08/16/17 10/05/17 History Clopidogrel [Plavix] 75 mg PO DAILY #30 tab 08/21/17 10/05/17 Rx Sodium Bicarbonate Tab 650 mg PO BID #60 tab 08/21/17 10/05/17 Rx Fexofenadine HCl [Amanda Allergy] 180 mg PO DAILY 09/27/17 10/05/17 History Insulin Aspart [Novolog] 14 unit SQ AC-LUNCH 09/27/17 10/05/17 History Insulin Aspart [Novolog] 14 unit SQ AC-SUPPER 09/27/17 10/05/17 History Ipratropium-Albuterol Nebulize 3 ml INHALATION Q4H PRN 09/27/17 10/05/17 History [Duoneb 0.5 mg-3 mg/3 ml Soln] Allergies Allergy/AdvReac Type Severity Reaction Status Date / Time KUSHAL Inhibitors Allergy Swelling Verified 10/05/17 06:48 ARB-Angiotensin Receptor Allergy Swelling Verified 10/05/17 06:48 Antagonist cephalexin monohydrate Allergy Rash/Hives Verified 10/05/17 06:48 [From Keflex] propoxyphene HCl AdvReac Hallucinati Verified 10/05/17 06:48 [From Darvon] ons Whutvcb-Kcw-Nxd Reductase AdvReac Myalgia Verified 10/05/17 06:48 Inhibitor Physical Exam Vitals: Vital Signs Temp Pulse Pulse Resp BP BP Pulse Ox 10/05/17 10:15 74 16 153/66 157/55 95 06/07/18 09:45 77 16 152/68 166/55 99 10/05/17 09:30 74 16 153/66 162/56 98 10/05/17 09:15 70 18 152/69 159/52 95 10/05/17 09:00 97.0 F L 75 16 150/65 157/84 89 L 10/05/17 07:06 97.9 F 79 18 167/74 95 Intake and Output 10/04/17 10/05/17 10/05/17 22:59 06:59 14:59 Intake Total 118.2 Balance 118.2 Intake: IV 118.2 Other: Voiding Method Toilet Bedpan Weight 92.5 kg Results - Lab Results Most recent lab results Calcium 9.1 mg/dL (8.4-10.2) 10/05/17 06:55 10/05/17 06:55 10/05/17 06:55 Assessment and Plan Plan: Assessment: 1. End-stage renal disease maintained on hemodialysis on Monday schedule. She has a left upper extremity AV fistula which is not being used as outpatient. She still has permacath in place. 2. Coronary artery disease status post cardiac catheterization with stent placed to the OM this morning. She also had 2 stents placed to the RCA in July 2017. 3. Insulin-dependent diabetes mellitus. 4. Hypertension with chronic kidney disease. 5. Anemia of chronic kidney disease. 6. 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 Plan: Hemodialysis today with goal 4 L ultrafiltration. Check phosphorus level. Add Mj. Thank you for the consultation. I will continue to follow the patient with you during her hospital stay.
[2017-10-05] MEDS: INSULIN DETEMIR 100 UNIT/ML 10 ML VIAL SQ SCH ×2 (14:56→23:08)
[2017-10-05] MEDS: MAGNESIUM OXIDE 400 MG TAB PO SCH (14:57)
[2017-10-05] MEDS: CHOLECALCIFEROL 1,000 UNIT TAB PO SCH (14:57)
[2017-10-05] MEDS: FERROUS SULFATE 325 MG TAB PO SCH (14:57)
[2017-10-05] MEDS: INSULIN ASPART 100 UNIT/ML 1 ML 10 ML VIAL SQ SCH ×2 (14:57→17:17)
[2017-10-05] MEDS: SEVELAMER 800 MG TAB PO SCH ×2 (14:58→17:17)
[2017-10-05 16:48] LABS: Glucose,Whole Blood 130 mg/dL (75-99)
[2017-10-05 17:57] LABS: Iron Saturation 28.74 (12.00-45.00)
[2017-10-05 20:59] LABS: Glucose,Whole Blood 157 mg/dL (75-99)
[2017-10-06 05:44] LABS: Anisocytosis Slight; HCT 29.2 % (34.0-46.0); HGB 9.4 gm/dL (11.4-16.0); Hypochromasia Moderate; MCH 31.4 pg (25.0-35.0); MCHC 32.2 g/dL (31.0-37.0); MCV 97.5 fL (80.0-100.0); Macrocytosis Slight; Mean Platelet Volume 7.8; Platelet Count 213 k/uL (150-450); RBC 2.99 m/uL (3.80-5.40); RDW 17.2 % (11.5-15.5); WBC 7.6 k/uL (3.8-10.6)
[2017-10-06 06:00] LABS: Calcium 8.8 mg/dL (8.4-10.2); Potassium 4.5 mmol/L (3.5-5.1)
[2017-10-06 06:09] LABS: Glucose,Whole Blood 123 mg/dL (75-99)
[2017-10-06] MEDS: PANTOPRAZOLE 40 MG TABLET PO SCH (06:36)
[2017-10-06] MEDS: SEVELAMER 800 MG TAB PO SCH ×3 (06:36→17:19)
[2017-10-06] MEDS: DULoxetine HCL 60 MG CAPSULE.DR PO SCH (07:59)
[2017-10-06] MEDS: INSULIN DETEMIR 100 UNIT/ML 10 ML VIAL SQ SCH ×2 (07:59→21:52)
[2017-10-06] MEDS: CHOLECALCIFEROL 1,000 UNIT TAB PO SCH (08:00)
[2017-10-06] MEDS: METOPROLOL SUCCINATE (ER) 100 MG TAB.ER.24H PO SCH (08:00)
[2017-10-06] MEDS: DILTIAZEM ORAL 30 MG TAB PO SCH ×3 (08:00→21:20)
[2017-10-06] MEDS: ISOSORBIDE MONONITRATE ER 30 MG TAB.ER.24H PO SCH (08:00)
[2017-10-06] MEDS: SODIUM BICARBONATE TAB 650 MG TAB PO SCH ×2 (08:01→21:20)
[2017-10-06] MEDS: CLOPIDOGREL 75 MG TAB PO SCH (08:01)
[2017-10-06] MEDS: FERROUS SULFATE 325 MG TAB PO SCH (08:01)
[2017-10-06] MEDS: LORATADINE 10 MG TAB PO SCH (08:01)
[2017-10-06] MEDS: AMIODARONE 100 MG TAB PO SCH (08:02)
[2017-10-06] MEDS: MAGNESIUM OXIDE 400 MG TAB PO SCH (08:02)
[2017-10-06] MEDS: FUROSEMIDE 80 MG TAB PO SCH ×2 (08:04→15:52)
[2017-10-06] MEDS: DOCUSATE 100 MG CAP PO SCH ×2 (08:04→21:20)
[2017-10-06] MEDS: EZETIMIBE 10 MG TAB PO SCH (08:04)
[2017-10-06] MEDS: GABAPENTIN 300 MG CAP PO SCH ×2 (08:04→21:20)
[2017-10-06] MEDS ORDERED: NON-FORMULARY DRUG (Fish Oil/Dha/Epa [Fish Oil 1,200 Mg Fish Oil] 1 CAP) PO SCH (08:29)
[2017-10-06 11:17] LABS: Glucose,Whole Blood 285 mg/dL (75-99)
[2017-10-06] MEDS: INSULIN ASPART 100 UNIT/ML 1 ML 10 ML VIAL SQ SCH ×2 (12:03→17:18)
--- NOTE | 2017-10-06 12:34 | P.PN ---
Progress Note - Text Progress Note Date: 10/06/17 This is a pleasant 72-year-old female patient who sees Dr. Combs in the office as an outpatient with a past medical history significant for coronary artery disease and prior stenting of the LAD as well as history of end-stage renal disease on hemodialysis was admitted to the hospital yesterday and underwent elective balloon angioplasty and stenting of the left circumflex coronary artery with a good angiographic results and without any complication with the procedure was performed from the right groin. Subsequently after the procedure the patient underwent dialysis. On follow-up with the patient today, she denies having any chest pain or chest discomfort or shortness of breath or dizziness or lightheadedness. Checking the right groin revealed that she still having wheezing from the right groin. The groin otherwise is soft nontender, and without any discrete hematoma. I did apply FemoStop on her for about 3 hours. I am planning to keep the patient overnight for observation till tomorrow morning. If the patient is doing good by tomorrow morning and no more oozing from the right groin she might be able to be discharged home and she will follow-up with Dr. Dr. Combs as an outpatient. Beside that her vital signs as well as her blood work seems to be nonsignificant beside increased creatinine and she is known to have end-stage renal disease on hemodialysis.
[2017-10-06] MEDS ORDERED: DESMOPRESSIN INJ 30 MCG in SODIUM CHLORIDE 0.9% 50 ML IVPB ONE (13:15)
--- NOTE | 2017-10-06 14:24 | PN ---
PROGRESS NOTE Patient is seen for followup for end-stage renal disease. She was admitted for cardiac catheterization. Patient had balloon angioplasty and stenting of the left circumflex coronary artery. The patient has had some bleeding from her catheterization site. She had her dialysis yesterday. She denies any complaints of nausea, vomiting, abdominal pain, chest pains or shortness of breath. PHYSICAL EXAMINATION: On examination today, blood pressure was 148/64, heart rate 92 per minute. Patient is afebrile. EXAMINATION OF THE HEART: S1, S2. EXAMINATION OF THE LUNGS: Bilateral breath sounds are heard. Abdomen is soft, nontender. Examination of the lower extremities shows no evidence of edema. LOFT PATTERNMAKER exam is grossly intact. LABS: Labs show sodium 135, potassium 4.5, chloride 95, CO2 is 26. Hemoglobin 9.4 g/dL. ASSESSMENT: 1. End-stage renal disease, on hemodialysis on a Monday, , Monday schedule. We will schedule for hemodialysis in a.m. 2. Status post cardiac catheterization and stenting of left circumflex. 3. Bleeding at site of cardiac catheterization. We will give her a dose of DDAVP. Continue with localized pressure. 4. Hypertension, currently controlled. 5. Anemia of chronic disease, maintained on Aranesp. 6. Volume overload, currently improved. PLAN: Hemodialysis in a.m. and DDAVP IV piggyback x1. MMODL / IJN: [id number] /
[2017-10-06 16:34] LABS: Glucose,Whole Blood 140 mg/dL (75-99)
[2017-10-06 21:00] LABS: Glucose,Whole Blood 150 mg/dL (75-99)
[2017-10-07 03:37] VITALS: RESP 18
[2017-10-07 05:57] LABS: Glucose,Whole Blood 141 mg/dL (75-99)
[2017-10-07] MEDS: SEVELAMER 800 MG TAB PO SCH (06:43)
[2017-10-07] MEDS: PANTOPRAZOLE 40 MG TABLET PO SCH (06:43)
[2017-10-07] MEDS ORDERED: ASPIRIN 81 MG PO SCH (09:00)
[2017-10-07] MEDS: DOCUSATE 100 MG CAP PO SCH (09:19)
[2017-10-07] MEDS: EZETIMIBE 10 MG TAB PO SCH (09:19)
[2017-10-07] MEDS: GABAPENTIN 300 MG CAP PO SCH (09:20)
[2017-10-07] MEDS: SODIUM BICARBONATE TAB 650 MG TAB PO SCH (09:20)
[2017-10-07] MEDS: CHOLECALCIFEROL 1,000 UNIT TAB PO SCH (09:20)
[2017-10-07] MEDS: LORATADINE 10 MG TAB PO SCH (09:20)
[2017-10-07] MEDS: FERROUS SULFATE 325 MG TAB PO SCH (09:21)
[2017-10-07] MEDS: CLOPIDOGREL 75 MG TAB PO SCH (09:21)
[2017-10-07] MEDS: DULoxetine HCL 60 MG CAPSULE.DR PO SCH (09:21)
[2017-10-07] MEDS: INSULIN DETEMIR 100 UNIT/ML 10 ML VIAL SQ SCH (09:23)
[2017-10-07 09:58] VITALS: TEMP 97.9
--- NOTE | 2017-10-07 10:04 | DS ---
DISCHARGE SUMMARY ADMISSION DATE: 10/05/2017. DISCHARGE DATE: 10/07/2017 BRIEF HISTORY: This is a very pleasant 72-year-old female patient who sees Dr. Combs on a regular basis who is known to have coronary artery disease and prior stenting of the LAD was brought 2 days ago and underwent elective angioplasty and stenting of the left circumflex for critical lesion involving the left circumflex. The procedure was performed without any complication with good angiographic results. On followup with the patient yesterday, she was having some oozing from the right groin without any evidence of hematoma or bruises. For that reason, I kept her overnight. On followup with the patient today, she is doing much better and the groin is soft and nontender and not oozing any more. The patient is going to be discharged home on dual antiplatelet therapy and she will be discharged on Zetia because of statin intolerance. MMODL / IJN: [id number] /
[2017-10-07] MEDS: METOPROLOL SUCCINATE (ER) 100 MG TAB.ER.24H PO SCH (11:54)
[2017-10-07] MEDS: DILTIAZEM ORAL 30 MG TAB PO SCH (11:54)
[2017-10-07] MEDS: FUROSEMIDE 80 MG TAB PO SCH (11:54)
[2017-10-07] MEDS: MAGNESIUM OXIDE 400 MG TAB PO SCH (11:54)
[2017-10-07] MEDS: ISOSORBIDE MONONITRATE ER 30 MG TAB.ER.24H PO SCH (11:55)
[2017-10-07] MEDS: AMIODARONE 100 MG TAB PO SCH (11:55)
[2017-10-07 11:58] LABS: Glucose,Whole Blood 112 mg/dL (75-99)
[2017-10-07 12:14] VITALS: BP 139/62; PULSE 80
--- NOTE | 2017-10-13 11:46 | PTCA ---
PERCUTANEOUSTRANS CORORONARY ANGIOGRAPHY DATE OF SERVICE: 10/05/2017 PERFORMING PHYSICIAN: Nikos Macedo MD, Neurodiagnostic Technician. PROCEDURE PERFORMED: Successful stenting of the second obtuse marginal branch of the left circumflex using 2.75 x 15 mm Xience CARLA with good angiographic results. INDICATION: This is a pleasant 72-year-old female patient who sees Dr. Combs as an outpatient, who presented to the hospital a few weeks ago with chest discomfort and underwent a heart catheterization by Dr. Combs and was found to have severe 2 vessel coronary artery disease. She underwent stenting of the LAD at that point, and she was brought today to undergo stenting of the left circumflex. APPROACH: Right common femoral artery. COMPLICATION: None. LEVEL OF SEDATION: Moderate with sedation length of 39 minutes. PROCEDURE DESCRIPTION: After obtaining an informed consent, the patient was brought to the cardiac oil field laborer. The right common femoral artery was cannulated using micropuncture technique, the micropuncture wire passed easily, then I placed a 6-Bengali sheath in the right common femoral artery. After that, anticoagulation was initiated using Angiomax. An XP 3.5. guide was used to engage the left main. A run-through wire was used to wire the second obtuse marginal branch of the left circumflex. Subsequently, I did do balloon angioplasty of that circ using 2.5 x 15 mm balloon where the balloon was inflated under 12 atmospheres x2. After that, I tried to advance 2.75 x 15 mm Xience CARLA but the stent will not make the turn to the to the OM. At that point, I was able to use the GuideLiner and with adjunctive use of the GuideLiner, I was able to advance the stent to the second obtuse marginal branch of the left circumflex where the stent was positioned under fluoroscopy guidance and deployed under its nominal pressure. The following angiogram showed good angiographic results and the procedure was completed without any complication. POSTPROCEDURE MANAGEMENT: Dual anti-platelet therapy, risk factors modifications and follow up with the patient. MMODL / IJN: [id number] /
== END 2017-10-07 12:29 | disposition home or self-care (01) ==
LOC: CATHCVL 06:36 → 6SEL 08:29 → CATHCVL 10-07 12:29
PROVIDERS: ATTEND Internal Medicine Interventional Cardiology
DX: I25.10 Atherosclerotic heart disease of native coronary artery without angina pectoris (principal); I97.610 Postprocedural hemorrhage of a circulatory system organ or structure following a cardiac catheterization; Y84.0 Cardiac catheterization as the cause of abnormal reaction of the patient, or of later complication, without mention of misadventure at the time of the procedure; Y92.239 Unspecified place in hospital as the place of occurrence of the external cause; E87.70 Fluid overload, unspecified; I45.10 Unspecified right bundle-branch block; I13.2 Hypertensive heart and chronic kidney disease with heart failure and with stage 5 chronic kidney disease, or end stage renal disease; I50.30 Unspecified diastolic (congestive) heart failure; N18.6 End stage renal disease; E11.22 Type 2 diabetes mellitus with diabetic chronic kidney disease; Z99.2 Dependence on renal dialysis; D63.1 Anemia in chronic kidney disease; M89.8X9 Other specified disorders of bone, unspecified site; E11.42 Type 2 diabetes mellitus with diabetic polyneuropathy; E78.00 Pure hypercholesterolemia, unspecified; I08.0 Rheumatic disorders of both mitral and aortic valves; I48.91 Unspecified atrial fibrillation; K21.9 Gastro-esophageal reflux disease without esophagitis; G47.30 Sleep apnea, unspecified; R32 Unspecified urinary incontinence; I25.2 Old myocardial infarction; Z95.5 Presence of coronary angioplasty implant and graft; Z99.89 Dependence on other enabling machines and devices; Z79.01 Long term (current) use of anticoagulants; Z79.02 Long term (current) use of antithrombotics/antiplatelets; Z79.4 Long term (current) use of insulin; Z79.899 Other long term (current) drug therapy; Z99.3 Dependence on wheelchair; Z98.1 Arthrodesis status; Z86.14 Personal history of Methicillin resistant Staphylococcus aureus infection; Z82.49 Family history of ischemic heart disease and other diseases of the circulatory system; Z88.1 Allergy status to other antibiotic agents; Z88.8 Allergy status to other drugs, medicaments and biological substances
CPT/HCPCS: 80048 ×2; 82728; 83540; 83550; 84100; 85025; 85027; C9600; C1769 ×4; C1887 ×2; C1725; C1894; C1874; J2001; J2250; J0583; J2597; J0881; Q9967; 90935

== ENCOUNTER 2017-10-23 22:45 | Inpatient (IN) | payer MEDICARE ==
--- NOTE | 2017-10-23 23:58 | ED ---
General Adult HPI - General Chief complaint: Altered Mental Status Stated complaint: CRISTHIAN Time Seen by Provider: 10/23/17 23:03 Source: patient, family, EMS, RN notes reviewed, old records reviewed Mode of arrival: EMS Limitations: altered mental status - History of Present Illness Initial comments: 72-year-old female history of end-stage renal disease on hemodialysis presents with difficulty breathing and confusion. Patient was found by her daughter, reported to be in respiratory distress. EMS was called. According to her daughter she is also been somewhat confused. Patient is slightly respond but able to answer questions. No physical complaints, no chest pain, no reported dyspnea, no abdominal pain. Last hemodialysis was Monday. Her normal scheduled days are Monday. No focal weakness or paresthesia. No headache. No preceding cough or fever. - Related Data Home Medications Medication Instructions Recorded Confirmed DULoxetine HCL [Cymbalta] 60 mg PO DAILY 08/04/14 10/23/17 Fish Oil/Dha/Epa [Fish Oil 1,200 1 cap PO MOWEFR 08/04/14 10/23/17 mg Fish Oil] Amiodarone HCl [Pacerone] 100 mg PO DAILY 11/22/15 10/23/17 Apixaban [Eliquis] 2.5 mg PO BID 11/22/15 10/23/17 Docusate [Colace] 100 mg PO BID 11/22/15 10/23/17 Ezetimibe [Zetia] 10 mg PO DAILY 11/22/15 10/23/17 Isosorbide Mononitrate ER [Imdur] 30 mg PO DAILY 11/22/15 10/23/17 Cranberry 4200mg-Vitamin C 1 tab PO BID 12/25/16 10/23/17 Omeprazole 20 mg PO DAILY 12/25/16 10/23/17 Cholecalciferol (Vitamin D3) 2,000 unit PO DAILY 12/31/16 10/23/17 [Vitamin D3] Ferrous Sulfate [Iron (65 MG 325 mg PO DAILY 05/05/17 10/23/17 Elemental)] Insulin Aspart [NovoLOG See Protocol SQ AC-TID 05/05/17 10/23/17 (formulary)] Magnesium Oxide [Mag-Ox] 250 mg PO DAILY 05/05/17 10/23/17 Metoprolol Succinate (ER) [Toprol 100 mg PO DAILY 05/05/17 10/23/17 XL] Insulin Aspart [NovoLOG 12 unit SQ AC-BRKFST 08/16/17 10/23/17 (formulary)] Insulin Glargine [Lantus] 25 unit SQ BID 08/16/17 10/23/17 Fexofenadine HCl [Amanad Allergy] 180 mg PO DAILY 09/27/17 10/23/17 Insulin Aspart [NovoLOG] 14 unit SQ AC-LUNCH 09/27/17 10/23/17 Insulin Aspart [NovoLOG] 14 unit SQ AC-SUPPER 09/27/17 10/23/17 Diltiazem HCl 60 mg PO TID 10/23/17 10/23/17 Midodrine HCl [ProAmatine] 5 mg PO DAILY PRN 10/23/17 10/23/17 Previous Rx's Medication Instructions Recorded Gabapentin [Neurontin] 300 mg PO BID #60 capsule 11/27/15 Furosemide [Lasix] 80 mg PO BID@0900,1600 tab 01/13/17 Sevelamer [Renvela] 800 mg PO TID-W/MEALS #90 tab 05/15/17 Clopidogrel [Plavix] 75 mg PO DAILY #30 tab 08/21/17 Aspirin 81 mg PO DAILY #90 chewable 10/07/17 Allergies Allergy/AdvReac Type Severity Reaction Status Date / Time KUSHAL Inhibitors Allergy Swelling Verified 10/23/17 23:07 ARB-Angiotensin Receptor Allergy Swelling Verified 10/23/17 23:07 Antagonist cephalexin monohydrate Allergy Rash/Hives Verified 10/23/17 23:07 [From Keflex] propoxyphene HCl AdvReac Hallucinati Verified 10/23/17 23:07 [From Darvon] ons Yzroukw-Ksb-Ryb Reductase AdvReac Myalgia Verified 10/23/17 23:07 Inhibitor Review of Systems ROS Statement: Those systems with pertinent positive or pertinent negative responses have been documented in the HPI. ROS Other: All systems not noted in ROS Statement are negative. Past Medical History Past Medical History: Atrial Fibrillation, Coronary Artery Disease (CAD), Heart Failure, Diabetes Mellitus, GERD/Reflux, Hyperlipidemia, Hypertension, Myocardial Infarction ([place]), Pneumonia, Renal Disease, Sleep Apnea/CPAP/BIPAP Additional Past Medical History / Comment(s): chronic kidney disease diagnosed may 2015; urinary incontinence, uses wheelchair, transfers with assist, aortic stenosis; peripheral neuropathy upper and lower extremity. hemodialysis tue,thur,sat. occasional O2 use Last Myocardial Infarction Date:: 05/28/2015 History of Any Multi-Drug Resistant Organisms: MRSA Date of last positivie culture/infection: 05/07/17 MDRO Source:: sputum Past Surgical History: Back Surgery, Cholecystectomy, Heart Catheterization, Heart Catheterization With Stent, Hysterectomy, Orthopedic Surgery Additional Past Surgical History / Comment(s): attila carpal tunnel, attila cataracts. Lumbar surgery with decompression off L3-L4 L4-L5 with fusion March 2011 with previous hardware failure L4-L5 and extension of fusion to S1. new back sugery including t8 and t9. has port and fistula for hemodialysis, angioplasty and 2 stents, 08/18/17, port out on 09/18/17, fistula started use this month 08/2017 Past Anesthesia/Blood Transfusion Reactions: No Reported Reaction Additional Past Anesthesia/Blood Transfusion Reaction / Comment(s): Possible confusion that resolved. Date of Last Stent Placement:: 08/18/17 Past Psychological History: No Psychological Hx Reported Smoking Status: Never smoker - Past Family History Father Additional Family Medical History / Comment(s): Brain aneurysm ; age 72 Sister(s) Family Medical History: Hypertension Additional Family Medical History / Comment(s): Aortic stenosis; mitral valve disease Mother Family Medical History: AFIB, CVA/TIA, Hypertension Additional Family Medical History / Comment(s): mother age 83 Daughter(s) Family Medical History: Asthma Son(s) Family Medical History: Asthma General Exam Limitations: altered mental status General appearance: lethargic Head exam: Present: atraumatic, normocephalic Eye exam: Present: normal appearance, PERRL ENT exam: Present: normal exam Neck exam: Present: normal inspection. Absent: tenderness, meningismus Respiratory exam: Present: decreased breath sounds. Absent: respiratory distress Cardiovascular Exam: Present: regular rate, normal rhythm GI/Abdominal exam: Present: soft. Absent: distended, tenderness Extremities exam: Present: normal inspection, normal capillary refill, other ( Left AV graft + thrill). Absent: pedal edema Neurological exam: Present: alert. Absent: motor sensory deficit Skin exam: Present: warm, dry, intact. Absent: cyanosis, diaphoretic Course Vital Signs 10/23/17 10/23/17 22:48 23:08 Temperature 98.3 F Pulse Rate 73 69 Respiratory 18 18 Rate Blood Pressure 166/68 156/65 O2 Sat by Pulse 92 L 98 Oximetry EKG Findings - EKG Comments: EKG Findings:: EKG: Normal sinus rhythm, rate of 62, right bundle branch block, left anterior fascicular block no ST segment elevation, VA interval 164, QRS duration 150, QTC 487 Medical Decision Making - Medical Decision Making 72-year-old female with end-stage renal disease presenting with dyspnea and confusion. Patient is alert and oriented however slow to respond. Nonfocal neurologic exam. Head CT is obtained negative for intracranial hemorrhage or mass effect. Chest x-ray shows mild heart failure with right pleural effusion. EKG does show some widening of QRS duration and a rate of 62. Potassium is 6.4 BUN 62 which appears to be elevated for this patient and venous gas shows a pH of 7.28 and pCO2 of 60. There is mild leukocytosis at 12.8, hemoglobin appears stable 10.5. Patient's dyspnea and confusion likely related to uremia as well as CO2 retention secondary to obesity associated hypoventilation. Patient is treated for hyperkalemia with calcium, Kayexalate, and albuterol. She is placed on BiPAP both for respiratory support as well as increased ventilation. Case discussed with Dr. Botello regarding urgent hemodialysis for hyperkalemia and fluid overload. Dr. Dewey will accept the admission. - Lab Data Result diagrams: 10/24/17 00:00 10/24/17 00:00 Lab Results 10/23/17 10/24/17 10/24/17 Range/Units 23:51 00:00 00:00 WBC (3.8-10.6) k/uL RBC (3.80-5.40) m/uL Hgb (11.4-16.0) gm/dL Hct (34.0-46.0) % MCV (80.0-100.0) fL MCH (25.0-35.0) pg MCHC (31.0-37.0) g/dL RDW (11.5-15.5) % Plt Count (150-450) k/uL Neutrophils % % Lymphocytes % % Monocytes % % Eosinophils % % Basophils % % Neutrophils # (1.3-7.7) k/uL Lymphocytes # (1.0-4.8) k/uL Monocytes # (0-1.0) k/uL Eosinophils # (0-0.7) k/uL Basophils # (0-0.2) k/uL Hypochromasia Anisocytosis Macrocytosis VBG pH (7.31-7.41) VBG pCO2 (37-51) mmHg VBG HCO3 (24-28) mmol/L Sodium (137-145) mmol/L Potassium (3.5-5.1) mmol/L Chloride (98-107) mmol/L Carbon Dioxide (22-30) mmol/L Anion Gap mmol/L BUN (7-17) mg/dL Creatinine (0.52-1.04) mg/dL Est GFR (CKD-EPI)AfAm (>60 ml/min/1.73 sqM) Est GFR (CKD-EPI)NonAf (>60 ml/min/1.73 sqM) Glucose (74-99) mg/dL POC Glucose (mg/dL) 280 H (75-99) mg/dL POC Glu Enrollment Services Vice President ID [place]arly Calcium (8.4-10.2) mg/dL Total Bilirubin (0.2-1.3) mg/dL AST (14-36) U/L ALT (9-52) U/L Alkaline Phosphatase (38-126) U/L Ammonia 9 (<30) umol/L Total Creatine Kinase 31 (30-135) U/L CK-MB (CK-2) 0.5 (0.0-2.4) ng/mL CK-MB (CK-2) Rel Index 1.6 Troponin I <0.012 (0.000-0.034) ng/mL Total Protein (6.3-8.2) g/dL Albumin (3.5-5.0) g/dL 10/24/17 10/24/17 10/24/17 Range/Units 00:00 00:00 00:00 WBC 12.8 H (3.8-10.6) k/uL RBC 3.36 L (3.80-5.40) m/uL Hgb 10.5 L (11.4-16.0) gm/dL Hct 32.9 L (34.0-46.0) % MCV 98.0 (80.0-100.0) fL MCH 31.2 (25.0-35.0) pg MCHC 31.8 (31.0-37.0) g/dL RDW 17.7 H (11.5-15.5) % Plt Count 215 (150-450) k/uL Neutrophils % 81 % Lymphocytes % 10 % Monocytes % 6 % Eosinophils % 1 % Basophils % 1 % Neutrophils # 10.4 H (1.3-7.7) k/uL Lymphocytes # 1.3 (1.0-4.8) k/uL Monocytes # 0.7 (0-1.0) k/uL Eosinophils # 0.2 (0-0.7) k/uL Basophils # 0.1 (0-0.2) k/uL Hypochromasia Slight Anisocytosis Slight Macrocytosis Slight VBG pH 7.28 L (7.31-7.41) VBG pCO2 60 H (37-51) mmHg VBG HCO3 27 (24-28) mmol/L Sodium 131 L (137-145) mmol/L Potassium 6.4 H* (3.5-5.1) mmol/L Chloride 88 L (98-107) mmol/L Carbon Dioxide 25 (22-30) mmol/L Anion Gap 18 mmol/L BUN 62 H (7-17) mg/dL Creatinine 7.20 H* (0.52-1.04) mg/dL Est GFR (CKD-EPI)AfAm 6 (>60 ml/min/1.73 sqM) Est GFR (CKD-EPI)NonAf 5 (>60 ml/min/1.73 sqM) Glucose 276 H (74-99) mg/dL POC Glucose (mg/dL) (75-99) mg/dL POC Glu Enrollment Services Vice President ID Calcium 8.9 (8.4-10.2) mg/dL Total Bilirubin 0.5 (0.2-1.3) mg/dL AST 38 H (14-36) U/L ALT 38 (9-52) U/L Alkaline Phosphatase 147 H (38-126) U/L Ammonia (<30) umol/L Total Creatine Kinase (30-135) U/L CK-MB (CK-2) (0.0-2.4) ng/mL CK-MB (CK-2) Rel Index Troponin I (0.000-0.034) ng/mL Total Protein 7.3 (6.3-8.2) g/dL Albumin 4.0 (3.5-5.0) g/dL Disposition Clinical Impression: Fluid overload, Uremic encephalopathy, Hyperkalemia Disposition: ADMITTED IP TO THIS [facility] Condition: Stable Is patient prescribed a controlled substance at d/c from ED?: No Referrals: Meghan Garcia MD [Primary Care Provider] - 1-2 days Decision to Admit Reason: Admit from EC Decision Date: 10/24/17 Decision Time: 01:16
[2017-10-24] LABS: Glucose,Whole Blood 280 mg/dL (75-99)
[2017-10-24 00:14] LABS: VBG PH 7.28 (7.31-7.41)
[2017-10-24 00:28] LABS: Calcium 8.9 mg/dL (8.4-10.2); Total Bilirubin 0.5 mg/dL (0.2-1.3); Total Protein 7.3 g/dL (6.3-8.2)
[2017-10-24 00:32] LABS: Potassium 6.4 mmol/L (3.5-5.1)
[2017-10-24 00:33] LABS: Creatine Kinase 31 U/L (30-135)
--- NOTE | 2017-10-24 00:34 | CT ---
EXAMINATION TYPE: CT brain wo con DATE OF EXAM: 10/24/2017 COMPARISON: NONE HISTORY: CRISTHIAN, weakness CT DLP: 1036.00 mGycm Automated exposure control for dose reduction was used. FINDINGS: There is some cerebral cortical atrophy. There is patchy hypodensity in the periventricular white mat ter. There is no mass effect nor midline shift. There is no sign of intracranial hemorrhage. The calv arium is intact. IMPRESSION: CEREBRAL ATROPHY AND CHRONIC SMALL VESSEL ISCHEMIA. NO ACUTE INTRACRANIAL ABNORMALITY.
--- NOTE | 2017-10-24 00:39 | XR ---
EXAMINATION TYPE: XR chest 2V DATE OF EXAM: 10/24/2017 COMPARISON: 08/16/2017 HISTORY: Heart failure hypertension. Short of breath TECHNIQUE: Frontal and lateral views of the chest are obtained. FINDINGS: AP view of the chest show some pulmonary vascular congestion. Exam is limited due to under exposure. There is slight blunting of right costophrenic angle. There are chest leads. IMPRESSION: There is probably mild heart failure. Possible small right pleural effusion. Chest is th e same or worse than last exam.
[2017-10-24 00:46] LABS: Creatine Kinase MB 0.5 ng/mL (0.0-2.4); Troponin I <0.012 ng/mL (0.000-0.034)
[2017-10-24 00:47] LABS: Anisocytosis Slight; Basophils # (A) 0.1 k/uL (0-0.2); Basophils % (A) 1 %; Eosinophils # (A) 0.2 k/uL (0-0.7); Eosinophils % (A) 1 %; HCT 32.9 % (34.0-46.0); HGB 10.5 gm/dL (11.4-16.0); Hypochromasia Slight; Lymphocytes # (A) 1.3 k/uL (1.0-4.8); Lymphocytes % (A) 10 %; MCH 31.2 pg (25.0-35.0); MCHC 31.8 g/dL (31.0-37.0); Macrocytosis Slight; Mean Platelet Volume 7.9; Monocytes # (A) 0.7 k/uL (0-1.0); Monocytes % (A) 6 %; Neutrophils # (A) 10.4 k/uL (1.3-7.7); Neutrophils % (A) 81 %; Platelet Count 215 k/uL (150-450); RBC 3.36 m/uL (3.80-5.40); RDW 17.7 % (11.5-15.5); WBC 12.8 k/uL (3.8-10.6)
[2017-10-24] MEDS ORDERED: ALBUTEROL NEB (CONC) 2.5 MG/0.5 ML INHALATION ONE (01:00)
[2017-10-24] MEDS ORDERED: CALCIUM CHLORIDE 500 MG in SODIUM CHLORIDE 0.9% 100 ML IV ONE (01:00)
[2017-10-24] MEDS ORDERED: SODIUM POLYSTYRENE SULFONATE 15 GM/60 ML BOTTLE PO ONE (01:00)
[2017-10-24] MEDS ORDERED: NALOXONE 0.4 MG/ML 1 ML VIAL IV PRN (01:04)
[2017-10-24] MEDS ORDERED: FUROSEMIDE 10 MG/ML 4 ML VIAL IV STA (01:21)
[2017-10-24 01:50] LABS: Prothrombin Time 10.1 sec (9.0-12.0)
[2017-10-24 10:14] LABS: Amorphous Sediment,Urine Rare /hpf; Appearance,Urine Clear (Clear); Bilirubin,Urine 1+ (Negative); Blood,Urine Negative (Negative); Color,Urine Yellow; Glucose,Urine (UA) Negative (Negative); Ketones,Urine Negative (Negative); Leukocyte Esterase,Urine Small (Negative); Nitrite,Urine Negative (Negative); Protein,Urine 1+ (Negative); Specific Gravity,Urine 1.016 (1.001-1.035); Squamous Epithelial Cell,Urine 1 /hpf (0-4); WBC,Urine 1 /hpf (0-5)
--- NOTE | 2017-10-24 12:03 | P.HPIM ---
History of Present Illness H&P Date: 10/24/17 Chief Complaint: respiratory failure on BiPAP. This is a 72-year-old female patient of Dr. Garcia with past medical history of atrial fibrillation, coronary artery disease status post myocardial infarction, has history of triple-vessel disease but was considered high risk for bypass, on conservative treatment,chronic diastolic heart failure , diabetes mellitus type 2, hyperlipidemia, hypertension, end-stage renal disease on hemodialysis, peripheral neuropathy.patient was recently hospitalized at [facility] in with significant shortness of breath, she was suggestive of pulmonary edema with acute kidney injury on CK D4 in the December 2016 patient was initiated on hemodialysis Monday and Monday, patient was in her usual state of health about yesterday and according to her son who was at the bedside she was doing fine up until about 6 PM she had mac & cheese at around noon and then she had a salad and a few minutes later developed to have significant shortness breath she ended up coming to the ER at [facility] she was found to have significant hyperkalemia and hyponatremia and the patient was full of fluid and she ended up getting dialyzed in the ER and she will be admitted to the hospital after she was started on BiPAP she would be seen in consultation by cardiology as well as pulmonary medicine. Review of Systems Constitutional: Reports fatigue, Reports malaise, Reports weight gain Eyes: denies blurred vision, denies bulging eye, denies decreased vision Ears, nose, mouth and throat: Denies dysphagia, Denies neck lump, Denies sore throat Cardiovascular: Reports decreased exercise tolerance, Reports dyspnea on exertion, Reports rapid heart beat, Reports shortness of breath, Denies chest pain, Denies leg edema Respiratory: Reports home oxygen, Reports sleep apnea, Reports snoring, Denies congestion, Denies cough with sputum, Denies wheezing Gastrointestinal: Denies abdominal pain, Denies bloating, Denies heartburn, Denies melena, Denies nausea, Denies vomiting Genitourinary: Denies dysuria Menstruation: Reports postmenopausal Musculoskeletal: Reports gait dysfunction, Denies myalgias Musculoskeletal: absent: ankle pain, ankle stiffness, ankle swelling, elbow pain , elbow stiffness, elbow swelling, foot pain, foot stiffness, foot swelling, hand pain, hand stiffness, hand swelling, hip pain, hip stiffness, hip swelling , knee pain, knee stiffness, knee swelling, shoulder pain, shoulder stiffness, shoulder swelling, wrist pain, wrist stiffness, wrist swelling Integumentary: Denies pruritus, Denies rash Neurological: Denies numbness, Denies weakness Psychiatric: Denies anxiety, Denies depression Endocrine: Denies fatigue, Denies weight change Past Medical History Past Medical History: Atrial Fibrillation, Coronary Artery Disease (CAD), Heart Failure, Diabetes Mellitus, GERD/Reflux, Hyperlipidemia, Hypertension, Myocardial Infarction ([place]), Pneumonia, Renal Disease, Sleep Apnea/CPAP/BIPAP Additional Past Medical History / Comment(s): chronic kidney disease diagnosed may 2015; urinary incontinence, uses wheelchair, transfers with assist, aortic stenosis; peripheral neuropathy upper and lower extremity. hemodialysis tue,thur,sat. occasional O2 use Last Myocardial Infarction Date:: 05/28/2015 History of Any Multi-Drug Resistant Organisms: MRSA Date of last positivie culture/infection: 05/07/17 MDRO Source:: sputum Past Surgical History: Back Surgery, Cholecystectomy, Heart Catheterization, Heart Catheterization With Stent, Hysterectomy, Orthopedic Surgery Additional Past Surgical History / Comment(s): attila carpal tunnel, attila cataracts. Lumbar surgery with decompression off L3-L4 L4-L5 with fusion March 2011 with previous hardware failure L4-L5 and extension of fusion to S1. new back sugery including t8 and t9. has port and fistula for hemodialysis, angioplasty and 2 stents, 08/18/17, port out on 09/18/17, fistula started use this month 08/2017 Past Anesthesia/Blood Transfusion Reactions: No Reported Reaction Additional Past Anesthesia/Blood Transfusion Reaction / Comment(s): Possible confusion that resolved. Date of Last Stent Placement:: 08/18/17 Past Psychological History: No Psychological Hx Reported Smoking Status: Never smoker - Past Family History Father Additional Family Medical History / Comment(s): Brain aneurysm ; age 72 Sister(s) Family Medical History: Hypertension Additional Family Medical History / Comment(s): Aortic stenosis; mitral valve disease Mother Family Medical History: AFIB, CVA/TIA, Hypertension Additional Family Medical History / Comment(s): mother age 83 Daughter(s) Family Medical History: Asthma Son(s) Family Medical History: Asthma Medications and Allergies Home Medications Medication Instructions Recorded Confirmed Type DULoxetine HCL [Cymbalta] 60 mg PO DAILY 08/04/14 10/23/17 History Fish Oil/Dha/Epa [Fish Oil 1,200 1 cap PO MOWEFR 08/04/14 10/23/17 History mg Fish Oil] Amiodarone HCl [Pacerone] 100 mg PO DAILY 11/22/15 10/23/17 History Apixaban [Eliquis] 2.5 mg PO BID 11/22/15 10/23/17 History Docusate [Colace] 100 mg PO BID 11/22/15 10/23/17 History Ezetimibe [Zetia] 10 mg PO DAILY 11/22/15 10/23/17 History Isosorbide Mononitrate ER [Imdur] 30 mg PO DAILY 11/22/15 10/23/17 History Gabapentin [Neurontin] 300 mg PO BID #60 capsule 11/27/15 10/23/17 Rx Cranberry 4200mg-Vitamin C 1 tab PO BID 12/25/16 10/23/17 History Omeprazole 20 mg PO DAILY 12/25/16 10/23/17 History Cholecalciferol (Vitamin D3) 2,000 unit PO DAILY 12/31/16 10/23/17 History [Vitamin D3] Furosemide [Lasix] 80 mg PO BID@0900,1600 tab 01/13/17 10/23/17 Rx Ferrous Sulfate [Iron (65 MG 325 mg PO DAILY 05/05/17 10/23/17 History Elemental)] Insulin Aspart [NovoLOG See Protocol SQ AC-TID 05/05/17 10/23/17 History (formulary)] Magnesium Oxide [Mag-Ox] 250 mg PO DAILY 05/05/17 10/23/17 History Metoprolol Succinate (ER) [Toprol 100 mg PO DAILY 05/05/17 10/23/17 History XL] Sevelamer [Renvela] 800 mg PO TID-W/MEALS #90 tab 05/15/17 10/23/17 Rx Insulin Aspart [NovoLOG 12 unit SQ AC-BRKFST 08/16/17 10/23/17 History (formulary)] Insulin Glargine [Lantus] 25 unit SQ BID 08/16/17 10/23/17 History Clopidogrel [Plavix] 75 mg PO DAILY #30 tab 08/21/17 10/23/17 Rx Fexofenadine HCl [Amanda Allergy] 180 mg PO DAILY 09/27/17 10/23/17 History Insulin Aspart [NovoLOG] 14 unit SQ AC-LUNCH 09/27/17 10/23/17 History Insulin Aspart [NovoLOG] 14 unit SQ AC-SUPPER 09/27/17 10/23/17 History Aspirin 81 mg PO DAILY #90 chewable 10/07/17 10/23/17 Rx Diltiazem HCl 60 mg PO TID 10/23/17 10/23/17 History Midodrine HCl [ProAmatine] 5 mg PO DAILY PRN 10/23/17 10/23/17 History Allergies Allergy/AdvReac Type Severity Reaction Status Date / Time KUSHAL Inhibitors Allergy Swelling Verified 10/23/17 23:07 ARB-Angiotensin Receptor Allergy Swelling Verified 10/23/17 23:07 Antagonist cephalexin monohydrate Allergy Rash/Hives Verified 10/23/17 23:07 [From Keflex] propoxyphene HCl AdvReac Hallucinati Verified 10/23/17 23:07 [From Darvon] ons Bdxdvst-Jwj-Rev Reductase AdvReac Myalgia Verified 10/23/17 23:07 Inhibitor Physical Exam Vitals: Vital Signs Temp Pulse Resp BP Pulse Ox 10/24/17 09:49 85 18 166/70 100 10/24/17 04:44 98.0 F 68 18 156/65 100 10/24/17 02:57 99.0 F 64 18 149/65 96 10/24/17 01:51 60 18 148/66 100 10/24/17 01:47 59 L 10/24/17 01:23 59 L 10/23/17 23:08 69 18 156/65 98 10/23/17 22:48 98.3 F 73 18 166/68 92 L Intake and Output 10/23/17 10/24/17 10/24/17 22:59 06:59 14:59 Other: Weight 92.533 kg - Constitutional General appearance: mild distress, obese - EENT Eyes: anicteric sclerae, EOMI, PERRLA, no ptosis, no scleral icterus, normal appearance ENT: hearing grossly normal, normal oropharynx Ears: bilateral: normal - Neck Neck: no lymphadenopathy, normal ROM, no rigidity Carotids: bilateral: upstroke normal - Respiratory Respiratory: bilateral: diminished, prolonged expiration, negative: dullness, rales, rhonchi, wheezing - Cardiovascular Rhythm: regular Heart sounds: normal: S1, S2 Abnormal Heart Sounds: systolic murmur - Gastrointestinal General gastrointestinal: normal bowel sounds, soft, no splenomegaly, no tenderness, no umbilical hernia, no ventral hernia - Integumentary Integumentary: normal, normal turgor - Neurologic Neurologic: CNII-XII intact - Musculoskeletal Musculoskeletal: generalized weakness - Psychiatric Psychiatric: A&O x's 3, appropriate affect, intact judgment & insight Results CBC & Chem 7: 10/24/17 00:00 10/24/17 00:00 Labs: Abnormal Lab Results - Last 24 Hours (Table) 10/23/17 10/24/17 10/24/17 Range/Units 23:51 00:00 00:00 WBC 12.8 H (3.8-10.6) k/uL RBC 3.36 L (3.80-5.40) m/uL Hgb 10.5 L (11.4-16.0) gm/dL Hct 32.9 L (34.0-46.0) % RDW 17.7 H (11.5-15.5) % Neutrophils # 10.4 H (1.3-7.7) k/uL VBG pH (7.31-7.41) VBG pCO2 (37-51) mmHg Sodium 131 L (137-145) mmol/L Potassium 6.4 H* (3.5-5.1) mmol/L Chloride 88 L (98-107) mmol/L BUN 62 H (7-17) mg/dL Creatinine 7.20 H* (0.52-1.04) mg/dL Glucose 276 H (74-99) mg/dL POC Glucose (mg/dL) 280 H (75-99) mg/dL AST 38 H (14-36) U/L Alkaline Phosphatase 147 H (38-126) U/L Urine Protein (Negative) Urine Bilirubin (Negative) Ur Leukocyte Esterase (Negative) Amorphous Sediment (None) /hpf 10/24/17 10/24/17 Range/Units 00:00 10:07 WBC (3.8-10.6) k/uL RBC (3.80-5.40) m/uL Hgb (11.4-16.0) gm/dL Hct (34.0-46.0) % RDW (11.5-15.5) % Neutrophils # (1.3-7.7) k/uL VBG pH 7.28 L (7.31-7.41) VBG pCO2 60 H (37-51) mmHg Sodium (137-145) mmol/L Potassium (3.5-5.1) mmol/L Chloride (98-107) mmol/L BUN (7-17) mg/dL Creatinine (0.52-1.04) mg/dL Glucose (74-99) mg/dL POC Glucose (mg/dL) (75-99) mg/dL AST (14-36) U/L Alkaline Phosphatase (38-126) U/L Urine Protein 1+ H (Negative) Urine Bilirubin 1+ H (Negative) Ur Leukocyte Esterase Small H (Negative) Amorphous Sediment Rare H (None) /hpf Thrombosis Risk Factor Assmnt - DVT/VTE Prophylaxis DVT/VTE Prophylaxis: Pharmacologic Prophylaxis ordered, Mechanical Prophylaxis ordered Assessment and Plan Assessment: Assessment and plan: 1. Acute hypoxemic respiratory failure due to acute diastolic heart failure . Patient underwent dialysis, she will be maintained on her Lasix 80 mg orally twice every day, she will be monitored very closely, she will be maintained on BiPAP for now, to maintain oxygen saturation of greater than 92% at all the time. Pulmonary consultation as well as cardiology consultation was obtained. 2 chronic diastolic heart failure, currently compensated on hemodialysis for fluid excess management Moderate aortic stenosis. Continue on BiPAP continue patient on Imdur 30 mg orally once every day, Toprol-XLl 100 mg orally once every day, Lasix 80 mg orally twice every day. 3. End-stage renal disease on hemodialysis Tuesdays and Saturdays. We will continue Selevamer 800 mg orally 3 times a day with meals. 4. Hypertension. Continue metoprolol 100 mg orally once every day. 5. Paroxysmal atrial fibrillation. Continue amiodarone 100 mg orally once every day, Eliquis 2.5 mg orally twice every day along with Cardizem 60 mg orally 3 times every day. 6. Morbid obesity with BMI of 39. Weight loss. 7. CAD. Continue patient on Toprol-XL 100 mg orally once every day, continue patient also on aspirin 81 mg once every day, Plavix 75 mg orally once every day. 8. Diabetes mellitus type 2 . Continue Lantus 25 units twice every day along with Humalog per scale, continue consistent carbohydrate diet and renal diet, BGM before each meal and bedtime. 9. GERD. Continue Protonix 40 mg orally once every day. 10. Hypertension and hypertensive cardiovascular disease. Toprol-XL 100 mg orally once every day, and Cardizem 60 mg orally 2 times every day. 11. History of myocardial infarction and coronary artery disease. Continue aspirin 81 mg once every day, Toprol-XL 100 mg orally once every day, Imdur 30 mg orally once every day, Zetia 10 mg orally once every day. 12. Hyperlipidemia. Intolerant to statins, continue Zetia 10 mg orally once every day. 13. Diabetic peripheral neuropathy and neuropathy secondary to chronic back pain. Continue gabapentin 300 mg orally twice every day. 14. Depression. Continue Cymbalta 60 mg orally once every day. 15. DVT prophylaxis. On Eliquis 2.5 mg twice every day as well as bilateral knee-high TERRIE hose. 16. Prophylaxis. Continue patient on PPI. 17. Full code. 18. Admit to inpatient. Estimate a length of stay 2 midnights.
[2017-10-24 12:25] LABS: Glucose,Whole Blood 156 mg/dL (75-99)
[2017-10-24] MEDS ORDERED: INSULIN ASPART 100 UNIT/ML 1 ML 10 ML VIAL SQ SCH ×2 (12:30→17:30)
[2017-10-24 13:04] LABS: Anisocytosis Slight; Basophils % (A) 0 %; Eosinophils # (A) 0.1 k/uL (0-0.7); Eosinophils % (A) 1 %; HCT 33.2 % (34.0-46.0); HGB 10.3 gm/dL (11.4-16.0); Hypochromasia Moderate; Lymphocytes # (A) 1.1 k/uL (1.0-4.8); Lymphocytes % (A) 9 %; MCH 30.6 pg (25.0-35.0); MCV 98.6 fL (80.0-100.0); Macrocytosis Slight; Mean Platelet Volume 8.1; Monocytes # (A) 0.7 k/uL (0-1.0); Monocytes % (A) 6 %; Neutrophils # (A) 9.5 k/uL (1.3-7.7); Neutrophils % (A) 82 %; Platelet Count 161 k/uL (150-450); RBC 3.37 m/uL (3.80-5.40); RDW 17.1 % (11.5-15.5); WBC 11.6 k/uL (3.8-10.6)
--- NOTE | 2017-10-24 14:36 | CONS ---
CONSULTATION CHIEF COMPLAINT: Shortness of breath. This is a 72-year-old lady with history of end-stage renal disease on hemodialysis, coronary artery disease, atrial fibrillation, type 2 diabetes, hypertension, dyslipidemia, who presented to hospital with shortness of breath. On her initial presentation, she was found to be fluid overloaded, had hyperkalemia and hyponatremia, was started on dialysis and placed on BiPAP and Cardiology had been consulted for the same. Her symptoms have improved since she had the dialysis. At the time of my evaluation, she is chest pain, free of shortness of breath and stable hemodynamically. PAST MEDICAL HISTORY: Significant for coronary artery disease, congestive heart failure, diabetes, hypertension, dyslipidemia, atrial fibrillation, sleep apnea, end-stage renal disease. PAST SURGICAL HISTORY: Significant for back surgery, cholecystectomy, hysterectomy, coronary artery disease, status post angioplasty, carpal tunnel surgery, lumbar fusion. MEDICATIONS: At home included amiodarone 100 mg daily, Eliquis 2.5 b.i.d., Zetia 10 q. daily, Imdur, Neurontin, Lasix 80 b.i.d., insulin, Toprol-XL 100 daily, Plavix Cardizem, and midodrine. Patient is allergic to KUSHAL INHIBITOR, KEFLEX, DARVON. FAMILY HISTORY: Negative for premature coronary artery disease. SOCIAL HISTORY: Negative for smoking, EtOH abuse or drug abuse. REVIEW OF SYSTEMS: HEENT is unremarkable. CARDIAC: As described above. RESPIRATORY: As described above. GI: Negative. GENITOURINARY: Significant for end-stage renal disease. PSYCHOSOCIAL: Negative. ENDOCRINE: Negative. HEMATOLOGICAL: Negative. DERM: Negative. CONSTITUTIONAL: Negative. ONCOLOGICAL: Negative. There is an ejection systolic murmur in the aortic area. Rest of the system review is not relevant. PHYSICAL EXAM: Patient is comfortable at rest. Vital signs are stable. There is no jugular venous distention. Chest exam reveals diminished air entry bilaterally. Heart exam reveals first and second heart sounds. Systolic murmur at the left lower sternal border. Abdomen is soft. There is subcutaneous edema. Exam of extremities did not reveal any edema. Peripheral pulses are felt. An echocardiogram in July showed normal LV systolic function and moderate aortic stenosis with moderate mitral regurgitation. An EKG on this admission reveals sinus rhythm, right bundle branch block and nonspecific ST-T wave changes. LABS: Show a hemoglobin of 10.5, platelet count is 215. Blood gases show a pH of 7.2, pCO2 is 60. Lab show a potassium of 6.4, creatinine is 7.2, BUN is 62, AST, ALT are within normal limits. Troponin is normal. ASSESSMENT: 1. Acute onset congestive heart failure secondary to underlying renal failure and diastolic heart failure. 2. Hyperkalemia. 3. Coronary artery disease, status post multivessel angioplasty. 4. Aortic stenosis plan continue study. paroxysmal atrial fibrillation. 5. Paroxysmal atrial fibrillation. PLAN: Continue the current medications including aspirin, Eliquis, Cordarone, Plavix, Zetia, Lasix and nitrates along with the Toprol. Continue with the hemodialysis. MMODL / IJN: [id number] /
[2017-10-24 15:14] LABS: Glucose,Whole Blood 126 mg/dL (75-99)
[2017-10-24 15:30] LABS: Albumin 3.7 g/dL (3.5-5.0); Calcium 9.1 mg/dL (8.4-10.2); Potassium 4.9 mmol/L (3.5-5.1); Total Bilirubin 0.6 mg/dL (0.2-1.3); Total Protein 6.7 g/dL (6.3-8.2)
[2017-10-24] MEDS: SEVELAMER 800 MG TAB PO SCH ×2 (15:36→17:16)
[2017-10-24 17:14] LABS: Glucose,Whole Blood 122 mg/dL (75-99)
[2017-10-24] MEDS: DILTIAZEM ORAL 60 MG TAB PO SCH ×2 (17:16→21:15)
[2017-10-24] MEDS: FUROSEMIDE 80 MG TAB PO SCH (17:16)
[2017-10-24] MEDS: INSULIN ASPART 100 UNIT/ML 1 ML 10 ML VIAL SQ SCH ×2 (17:20→21:14)
--- NOTE | 2017-10-24 17:40 | P.CNPUL ---
History of Present Illness Consult date: 10/24/17 Reason for consult: other (Pulmonary edema and fluid overload) Chief complaint: Shortness of breath History of present illness: This is a 72-year-old female with history of multiple medical problems including coronary artery disease, previous [place], chronic atrial fibrillation, triple-vessel coronary artery disease, not a good candidate for surgery, patient is being managed medically. She has history of chronic diastolic congestive heart failure, diabetes, hypertension, end-stage renal disease, on hemodialysis 3 days of the week. Patient presented last night to the ER complaining of increased shortness of breath, shortness of breath became more pronounced, upon evaluation in the ER, the patient was noted to have fluid overload/pulmonary edema, she was also noted to have hyperkalemia, hyponatremia , and worsening renal failure. Early this morning, the patient was dialyzed, admitted to the medical floor/cardiac floor, and I was asked to see her on consultation. At this point and says dialysis, the patient is feeling much better, breathing a lot easier, she does use BiPAP at night for obstructive sleep apnea syndrome, and she has been seen by Dr. Hanson in the past for obstructive sleep apnea problem. At present upon my evaluation, the patient denied any headaches, no blurred vision, no dizziness, no shortness of breath, no cough, no wheezing, no chest pain, no nausea, no vomiting, no abdominal pain , no melena, and no hematemesis. No dysuria and no frequency no urgency. She does make a bit of urine, not much improved even with the use of Lasix. Review of Systems 14 point review of systems were obtained, please refer to pertinent positives in HPI otherwise remaining systems are negative. Past Medical History Past Medical History: Atrial Fibrillation, Coronary Artery Disease (CAD), Heart Failure, Diabetes Mellitus, GERD/Reflux, Hyperlipidemia, Hypertension, Myocardial Infarction ([place]), Pneumonia, Renal Disease, Sleep Apnea/CPAP/BIPAP Additional Past Medical History / Comment(s): ESRD with hemodialysis on // Mon-last done 10/21/17, urinary incontinence at times, healed sacral decubitus ulcer-prone to bedsores, current sore R foot great toe, aortic stenosis, IDDM type II with bilateral upper and lower neuropathy, anemia, fatty liver, CHUCHO with CPAP. Last Myocardial Infarction Date:: 2015 History of Any Multi-Drug Resistant Organisms: MRSA Date of last positivie culture/infection: 05/07/17 MDRO Source:: sputum Past Surgical History: Back Surgery, Cholecystectomy, Heart Catheterization, Heart Catheterization With Stent, Hysterectomy, Orthopedic Surgery Additional Past Surgical History / Comment(s): PCI with stents, several back surgeries-lumbar, bilateral carpal tunnel releases, bilateral cataract removals , port then fistula for hemodialysis. Past Anesthesia/Blood Transfusion Reactions: No Reported Reaction Additional Past Anesthesia/Blood Transfusion Reaction / Comment(s): Confusion that resolved. Date of Last Stent Placement:: 10/06/17 Smoking Status: Never smoker - Past Family History Father Additional Family Medical History / Comment(s): Brain aneurysm ; age 72 Sister(s) Family Medical History: Hypertension Additional Family Medical History / Comment(s): Aortic stenosis; mitral valve disease Mother Family Medical History: AFIB, CVA/TIA, Hypertension Additional Family Medical History / Comment(s): mother age 83 Daughter(s) Family Medical History: Asthma Son(s) Family Medical History: Asthma Medications and Allergies Home Medications Medication Instructions Recorded Confirmed Type DULoxetine HCL [Cymbalta] 60 mg PO DAILY 08/04/14 10/23/17 History Fish Oil/Dha/Epa [Fish Oil 1,200 1 cap PO MOWEFR 08/04/14 10/23/17 History mg Fish Oil] Amiodarone HCl [Pacerone] 100 mg PO DAILY 11/22/15 10/23/17 History Apixaban [Eliquis] 2.5 mg PO BID 11/22/15 10/23/17 History Docusate [Colace] 100 mg PO BID 11/22/15 10/23/17 History Ezetimibe [Zetia] 10 mg PO DAILY 11/22/15 10/23/17 History Isosorbide Mononitrate ER [Imdur] 30 mg PO DAILY 11/22/15 10/23/17 History Gabapentin [Neurontin] 300 mg PO BID #60 capsule 11/27/15 10/23/17 Rx Cranberry 4200mg-Vitamin C 1 tab PO BID 12/25/16 10/23/17 History Omeprazole 20 mg PO DAILY 12/25/16 10/23/17 History Cholecalciferol (Vitamin D3) 2,000 unit PO DAILY 12/31/16 10/23/17 History [Vitamin D3] Furosemide [Lasix] 80 mg PO BID@0900,1600 tab 01/13/17 10/23/17 Rx Ferrous Sulfate [Iron (65 MG 325 mg PO DAILY 05/05/17 10/23/17 History Elemental)] Insulin Aspart [NovoLOG See Protocol SQ AC-TID 05/05/17 10/23/17 History (formulary)] Magnesium Oxide [Mag-Ox] 250 mg PO DAILY 05/05/17 10/23/17 History Metoprolol Succinate (ER) [Toprol 100 mg PO DAILY 05/05/17 10/23/17 History XL] Sevelamer [Renvela] 800 mg PO TID-W/MEALS #90 tab 05/15/17 10/23/17 Rx Insulin Aspart [NovoLOG 12 unit SQ AC-BRKFST 08/16/17 10/23/17 History (formulary)] Insulin Glargine [Lantus] 25 unit SQ BID 08/16/17 10/23/17 History Clopidogrel [Plavix] 75 mg PO DAILY #30 tab 08/21/17 10/23/17 Rx Fexofenadine HCl [Amanda Allergy] 180 mg PO DAILY 09/27/17 10/23/17 History Insulin Aspart [NovoLOG] 14 unit SQ AC-LUNCH 09/27/17 10/23/17 History Insulin Aspart [NovoLOG] 14 unit SQ AC-SUPPER 09/27/17 10/23/17 History Aspirin 81 mg PO DAILY #90 chewable 10/07/17 10/23/17 Rx Diltiazem HCl 60 mg PO TID 10/23/17 10/23/17 History Midodrine HCl [ProAmatine] 5 mg PO DAILY PRN 10/23/17 10/23/17 History Allergies Allergy/AdvReac Type Severity Reaction Status Date / Time KUSHAL Inhibitors Allergy Swelling Verified 10/23/17 23:07 ARB-Angiotensin Receptor Allergy Swelling Verified 10/23/17 23:07 Antagonist cephalexin monohydrate Allergy Rash/Hives Verified 10/23/17 23:07 [From Keflex] propoxyphene HCl AdvReac Hallucinati Verified 10/23/17 23:07 [From Darvon] ons Sczzbhp-Dnk-Ept Reductase AdvReac Myalgia Verified 10/23/17 23:07 Inhibitor Physical Exam Vitals: Vital Signs Temp Pulse Pulse Pulse Resp BP BP 10/24/17 15:10 97.5 F L 85 85 16 144/61 10/24/17 13:40 97.5 F L 86 16 158/66 10/24/17 13:10 84 18 169/70 10/24/17 11:35 73 20 145/63 10/24/17 09:49 85 18 166/70 10/24/17 04:44 98.0 F 68 18 156/65 10/24/17 02:57 99.0 F 64 18 149/65 10/24/17 01:51 60 18 148/66 10/24/17 01:47 59 L 10/24/17 01:23 59 L 10/23/17 23:08 69 18 156/65 10/23/17 22:48 98.3 F 73 18 166/68 Pulse Ox 10/24/17 15:10 99 10/24/17 13:40 100 10/24/17 13:10 100 10/24/17 11:35 100 10/24/17 09:49 100 10/24/17 04:44 100 10/24/17 02:57 96 10/24/17 01:51 100 10/24/17 01:47 10/24/17 01:23 10/23/17 23:08 98 10/23/17 22:48 92 L Intake and Output 10/24/17 10/24/17 10/24/17 06:59 14:59 22:59 Other: Voiding Method Bedpan Bedpan Diaper Diaper Physical Exam: Revealed a 72-year-old female obese, in no distress, very pleasant. Head: Cushingoid, normocephalic, atraumatic. HEENT:[ Short obese neck, Neck is supple.] [No neck masses.] [No thyromegaly.] [ No JVD.] PERRLA, EOMI, no icterus. Moist mucous membranes. Chest: [Diminished breath sounds at the bases with crackles and prolonged expiratory phase noted.] Cardiac Exam: [Distant S1 and S2, no S3 gallop, 2/6 systolic murmur thought the precordium.] Abdomen: [Morbidly obese, Soft, nontender, no megaly, no rebound, no guarding, normal bowel sounds.] Extremities: [No clubbing, no edema, no cyanosis.] Neurological Exam: [No focal neurologic deficit. Lymphatics: No lymphadenopathy. Skin: Normal turgor, no rashes.] Psychiatric: Normal mood, affect and mental status examination. Results - Laboratory Findings CBC and BMP: 10/24/17 12:33 10/24/17 14:45 PT/INR, D-dimer PT 10.1 sec (9.0-12.0) 10/24/17 01:28 INR 1.0 (<1.2) 10/24/17 01:28 Abnormal lab findings: Abnormal Labs 10/23/17 10/24/17 10/24/17 23:51 00:00 00:00 WBC 12.8 H RBC 3.36 L Hgb 10.5 L Hct 32.9 L RDW 17.7 H Neutrophils # 10.4 H VBG pH VBG pCO2 Sodium 131 L Potassium 6.4 H* Chloride 88 L BUN 62 H Creatinine 7.20 H* Glucose 276 H POC Glucose (mg/dL) 280 H AST 38 H Alkaline Phosphatase 147 H Urine Protein Urine Bilirubin Ur Leukocyte Esterase Amorphous Sediment 10/24/17 10/24/17 10/24/17 00:00 10:07 12:06 WBC RBC Hgb Hct RDW Neutrophils # VBG pH 7.28 L VBG pCO2 60 H Sodium Potassium Chloride BUN Creatinine Glucose POC Glucose (mg/dL) 156 H AST Alkaline Phosphatase Urine Protein 1+ H Urine Bilirubin 1+ H Ur Leukocyte Esterase Small H Amorphous Sediment Rare H 10/24/17 10/24/17 10/24/17 12:33 14:45 15:11 WBC 11.6 H RBC 3.37 L Hgb 10.3 L Hct 33.2 L RDW 17.1 H Neutrophils # 9.5 H VBG pH VBG pCO2 Sodium Potassium Chloride 94 L BUN 32 H Creatinine 4.30 H Glucose 132 H POC Glucose (mg/dL) 126 H AST Alkaline Phosphatase 133 H Urine Protein Urine Bilirubin Ur Leukocyte Esterase Amorphous Sediment 10/24/17 16:25 WBC RBC Hgb Hct RDW Neutrophils # VBG pH VBG pCO2 Sodium Potassium Chloride BUN Creatinine Glucose POC Glucose (mg/dL) 122 H AST Alkaline Phosphatase Urine Protein Urine Bilirubin Ur Leukocyte Esterase Amorphous Sediment - Diagnostic Findings Chest x-ray: image reviewed (Chest x-ray is suggestive of fluid overload, small pleural effusion on the right side is noted. Pulmonary edema is strongly suspected.) Assessment and Plan Assessment: Impression: 1 acute on chronic hypoxic respiratory failure secondary to congestive heart failure, diastolic in nature. 2 end stage renal disease, on hemodialysis. 3 paroxysmal atrial fibrillation, presently on amiodarone and she is on anti- coagulation therapy along with Cardizem. 9 essential hypertension 6 coronary artery disease on medical therapy 7 type 2 diabetes, remains on insulin. 8 multiple comorbidities including depression, diabetic neuropathy, hyperlipidemia, previous [place], and history of GERD. Obstructive sleep apnea syndrome. Recommendation: I fully agree with the present treatment plan, continue diuretics, continue cardiac meds for underlying coronary artery disease and atrial fibrillation, may need more dialysis in the next 24 hours, continue BiPAP as needed. Will follow. Time with Patient: Greater than 30
--- NOTE | 2017-10-24 20:25 | CONS ---
CONSULTATION REASON FOR CONSULT: End-stage renal disease. HISTORY OF PRESENT ILLNESS: The patient is a 72-year-old female with end-stage renal disease, on hemodialysis on a Monday, , Monday schedule. The patient was admitted to the hospital with complaints of significant shortness of breath which started fairly acutely. According to her son, patient was eating. She had a couple of meals outside. She denied any chest pain, and soon after dinner she developed severe shortness of breath, which progressively worsened and patient was brought into the hospital. Chest x-ray shows evidence of pleural effusions and heart failure. The patient was dialyzed last marker and had about 3 L of ultrafiltration. Patient is being maintained on BIPAP. Overall, she states she is feeling better. No complaints of cough. No fever. Overall, patient has been compliant with her dialysis. Her blood pressure does stay on the lower side. Sometimes hinders fluid removal. However, patient should be on midodrine prior to dialysis to help with the UF. Cardiac enzymes are negative. PAST MEDICAL HISTORY: End-stage renal disease, on hemodialysis on Monday, , Monday schedule. Coronary artery disease with history of myocardial infarction and history of atrial fibrillation, type 2 diabetes, hyperlipidemia, hypertension, pneumonia, obstructive sleep apnea, aortic stenosis, history of MRSA infection. SURGICAL HISTORY: Cholecystectomy, cardiac catheterization, hysterectomy, and coronary stent placement and back surgery. PermCath insertion and removal fistula, AV fistula for dialysis, coronary stents and angioplasties. SOCIAL HISTORY: Is negative for smoking, drug abuse or alcohol abuse. MEDICATIONS PRIOR TO ADMISSION: Multivitamins include fish oil, Cymbalta, Pacerone, Colace and Eliquis, Zetia, Imdur, Neurontin, Omeprazole, vitamin D, Lasix, iron, magnesium, metoprolol, renal gel, Renvela, Amanda, insulin, Plavix, Cardizem, aspirin, midodrine. ALLERGIES: INCLUDE ANGIOTENSIN RECEPTOR BLOCKERS AND KUSHAL INHIBITORS CAUSING SWELLING. KEFLEX, DARVON, STATINS CAUSE MUSCLE ACHES. REVIEW OF SYSTEMS: As per HPI. Other systems negative. EXAMINATION: Patient is fairly comfortable. She is on BiPAP. She is not in any acute distress. Blood pressure this morning was 166/70. Patient is afebrile. Heart rate about 86 per minute. Examination of the heart S1, S2. Examination of the lungs bilateral breath sounds are heard. Abdomen is soft, nontender. Obese. Examination of the lower extremities shows no evidence of edema. [employer] MECH[employer]IC exam is grossly intact. Patient moving all 4 extremities. LAB: Show sodium 137, potassium 4.9, BUN 32, serum creatinine 4.3, hemoglobin 10.3 g/dL. ASSESSMENT: 1. End-stage renal disease, on hemodialysis on a Monday, , Monday schedule. 2. Respiratory failure, currently on BiPAP. Etiology most likely fluid overload, currently feeling better with dialysis and ultrafiltration of about 3 L. The patient will have an extra treatment again tomorrow. 3. History of valvular heart disease and aortic stenosis. Need to rule out worsening valvular lesion contributing to recurrent failure. Patient is being followed by Cardiology. 4. Paroxysmal atrial fibrillation. 5. Hyperkalemia with improvement with hemodialysis. 6. Coronary artery disease, status post previous coronary angioplasty. 7. Diastolic heart failure, acute on top of chronic. 8. Chronic kidney disease, mineral bone disorder maintained on Renvela. PLAN: Repeat hemodialysis in a.m. Continue with p.o. Lasix as well. Maintain salt and fluid restriction and repeat labs in a.m. Thank you for this consultation. We will continue to follow the patient with you during her hospitalization. MMODL / IJN: [id number] /
[2017-10-24] MEDS ORDERED: INSULIN DETEMIR 100 UNIT/ML 10 ML VIAL SQ SCH (21:00)
[2017-10-24] MEDS ORDERED: CRANBERRY 4200 MG PO SCH (21:00)
[2017-10-24] MEDS ORDERED: [UNRECOGNIZED DRUG - OTHER] PO SCH (21:00)
[2017-10-24 21:09] LABS: Glucose,Whole Blood 225 mg/dL (75-99)
[2017-10-24] MEDS: GABAPENTIN 300 MG CAP PO SCH (21:15)
[2017-10-24] MEDS: APIXABAN 2.5 MG TABLET PO SCH (21:16)
[2017-10-24] MEDS: DOCUSATE 100 MG CAP PO SCH (21:16)
[2017-10-24 22:19] LABS: Hemoglobin A1C 6.5 % (4.0-6.0)
[2017-10-25 06:11] LABS: Glucose,Whole Blood 124 mg/dL (75-99)
[2017-10-25] MEDS ORDERED: INSULIN ASPART 100 UNIT/ML 1 ML 10 ML VIAL SQ SCH (07:30)
[2017-10-25 08:04] LABS: Anisocytosis Slight; Basophils % (A) 0 %; Eosinophils # (A) 0.3 k/uL (0-0.7); Eosinophils % (A) 4 %; HCT 30.2 % (34.0-46.0); HGB 9.3 gm/dL (11.4-16.0); Hypochromasia Slight; Lymphocytes # (A) 1.6 k/uL (1.0-4.8); Lymphocytes % (A) 20 %; MCH 30.2 pg (25.0-35.0); MCHC 30.9 g/dL (31.0-37.0); MCV 97.7 fL (80.0-100.0); Macrocytosis Slight; Mean Platelet Volume 8.5; Monocytes # (A) 0.7 k/uL (0-1.0); Monocytes % (A) 9 %; Neutrophils # (A) 5.2 k/uL (1.3-7.7); Neutrophils % (A) 65 %; Platelet Count 192 k/uL (150-450); RBC 3.09 m/uL (3.80-5.40); RDW 17.5 % (11.5-15.5)
[2017-10-25 08:22] LABS: Albumin 3.5 g/dL (3.5-5.0); Calcium 8.4 mg/dL (8.4-10.2); Magnesium 2.4 mg/dL (1.6-2.3); Phosphorus 6.3 mg/dL (2.5-4.5); Potassium 4.6 mmol/L (3.5-5.1); Total Bilirubin 0.6 mg/dL (0.2-1.3); Total Protein 6.4 g/dL (6.3-8.2)
[2017-10-25] MEDS ORDERED: NON-FORMULARY DRUG (Fish Oil/Dha/Epa [Fish Oil 1,200 Mg Fish Oil] 1 CAP) PO SCH (10:40)
--- NOTE | 2017-10-25 11:06 | PN ---
PROGRESS NOTE DATE OF SERVICE: 10/25/2017 This is a very pleasant 72-year-old female patient who was seen in consultation yesterday. She has been receiving hemodialysis and is improving. She is seen today in followup on the selective care unit. She is awake and alert, in no acute distress. She denies any worsening shortness of breath, cough, or congestion. She has remained afebrile. Hemodynamically stable. Current lab results reveal a WBC of 8.0, hemoglobin 9.3, potassium 4.6, creatinine 4.93. PHYSICAL EXAMINATION: On physical exam, she is alert and oriented, in no acute distress. Vital signs are stable. Head is normocephalic. Sclerae anicteric. Neck is supple. Trachea midline. Lungs are clear anteriorly. Faint crackles in the posterior bases. Heart is regular, S1, S2. Her abdomen is soft, nontender. Bowel sounds are present. There is trace peripheral edema. No clubbing. No cyanosis. Peripheral pulses are intact. INVESTIGATIONS: WBC 8.0, hemoglobin 9.3. Potassium 4.6, sodium 136, BUN 42, creatinine 4.93. Medications are reviewed. IMPRESSION: 1. Acute hypoxic respiratory failure secondary to fluid volume overload. 2. Atrial fibrillation, currently in normal sinus rhythm on amiodarone and diltiazem, anticoagulated with Eliquis. 3. Hypertension. 4. Gastroesophageal reflux disease. 5. History of depression. PLAN: The patient was seen and evaluated by Dr. Fishman. She is currently stable from the pulmonary standpoint. We will continue with her current medications for now. Continue with hemodialysis per Nephrology. We will increase her activity as tolerated. We will continue to follow and make further recommendations based on her clinical status. I, the cosigning physician, performed a history and physical examination on the patient. Lungs sounds are clear anteriorly with faint crackles in the bilateral posterior bases. Currently maintaining good O2 saturations in the 90s on room air. I discussed the assessment and plan of care with my nurse practitioner, Aruna Aquino. I attest to the above note as dictated by her. MMODL / IJN: [id number] /
[2017-10-25 11:49] LABS: Glucose,Whole Blood 192 mg/dL (75-99)
--- NOTE | 2017-10-25 11:55 | P.PN ---
Subjective Progress Note Date: 10/25/17 This is a 72-year-old patient with past medical history significant for persistent atrial fibrillation, coronary artery disease with prior myocardial infarction, has known triple-vessel coronary artery disease but was considered high risk for bypass, on conservative medical therapy, chronic diastolic heart failure, diabetes, hyperlipidemia, hypertension, end-stage renal disease on hemodialysis, peripheral neuropathy who presented to the hospital with symptoms of fairly sudden onset of shortness of breath. She was found to have significant hyperkalemia and hyponatremia as well as fluid overload. She was dialyzed in the emergency room and admitted to the hospital. Patient was seen and examined today, doing much better overall. Awake and alert and in no acute distress. She denies any worsening shortness of breath cough or congestion. Remains afebrile and hemodynamically stable. I pressure this morning 138/60 with a heart rate in the 70s, 98 temperature, temperature 8:00 last night was 99.7. White blood cell count 8.0, hemoglobin 9.3, platelet count 192. Objective - Vital Signs Vital signs: Vital Signs Temp 98 F 10/24/17 23:55 Pulse 72 10/24/17 23:55 Resp 17 10/24/17 23:55 BP 138/65 10/24/17 23:55 Pulse Ox 98 10/24/17 20:00 Intake & Output 10/24/17 10/25/17 10/25/17 18:59 06:59 18:59 Intake Total 260 200 Balance 260 200 Intake: Oral 260 200 Other: Voiding Method Bedpan Bedpan Diaper Diaper - Exam PHYSICAL EXAMINATION: GENERAL: This is a 72-year-old female in no acute distress at the time of my examination HEENT: Head is atraumatic, normocephalic. Pupils equal, round. Sclera anicteric. Conjunctiva are clear. Mucous membranes of the mouth are moist. Neck is supple. There is no elevated jugular venous pressure.] bruit is heard. HEART EXAMINATION: Heart S1 S2 1 systolic murmur is heard CHEST EXAMINATION: Lungs reveal diminished air entry to bilateral bases ABDOMEN: Soft, obese, nontender. Bowel sounds are heard. No organomegaly noted. EXTREMITIES: 2+ peripheral pulses with no evidence of peripheral edema and no calf tenderness noted. NEUROLOGIC patient is awake, alert and oriented ?-3. . - Labs CBC & Chem 7: 10/25/17 05:44 10/24/17 14:45 Labs: Abnormal Lab Results - Last 24 Hours (Table) 10/24/17 10/24/17 10/24/17 Range/Units 00:00 12:06 12:33 WBC 11.6 H (3.8-10.6) k/uL RBC 3.37 L (3.80-5.40) m/uL Hgb 10.3 L (11.4-16.0) gm/dL Hct 33.2 L (34.0-46.0) % MCHC (31.0-37.0) g/dL RDW 17.1 H (11.5-15.5) % Neutrophils # 9.5 H (1.3-7.7) k/uL Chloride (98-107) mmol/L BUN (7-17) mg/dL Creatinine (0.52-1.04) mg/dL Glucose (74-99) mg/dL POC Glucose (mg/dL) 156 H (75-99) mg/dL Hemoglobin A1c 6.5 H (4.0-6.0) % Alkaline Phosphatase (38-126) U/L 10/24/17 10/24/17 10/24/17 Range/Units 14:45 15:11 16:25 WBC (3.8-10.6) k/uL RBC (3.80-5.40) m/uL Hgb (11.4-16.0) gm/dL Hct (34.0-46.0) % MCHC (31.0-37.0) g/dL RDW (11.5-15.5) % Neutrophils # (1.3-7.7) k/uL Chloride 94 L (98-107) mmol/L BUN 32 H (7-17) mg/dL Creatinine 4.30 H (0.52-1.04) mg/dL Glucose 132 H (74-99) mg/dL POC Glucose (mg/dL) 126 H 122 H (75-99) mg/dL Hemoglobin A1c (4.0-6.0) % Alkaline Phosphatase 133 H (38-126) U/L 10/24/17 10/25/17 10/25/17 Range/Units 21:05 05:44 06:07 WBC (3.8-10.6) k/uL RBC 3.09 L (3.80-5.40) m/uL Hgb 9.3 L (11.4-16.0) gm/dL Hct 30.2 L (34.0-46.0) % MCHC 30.9 L (31.0-37.0) g/dL RDW 17.5 H (11.5-15.5) % Neutrophils # (1.3-7.7) k/uL Chloride (98-107) mmol/L BUN (7-17) mg/dL Creatinine (0.52-1.04) mg/dL Glucose (74-99) mg/dL POC Glucose (mg/dL) 225 H 124 H (75-99) mg/dL Hemoglobin A1c (4.0-6.0) % Alkaline Phosphatase (38-126) U/L 10/25/17 Range/Units 11:28 WBC (3.8-10.6) k/uL RBC (3.80-5.40) m/uL Hgb (11.4-16.0) gm/dL Hct (34.0-46.0) % MCHC (31.0-37.0) g/dL RDW (11.5-15.5) % Neutrophils # (1.3-7.7) k/uL Chloride (98-107) mmol/L BUN (7-17) mg/dL Creatinine (0.52-1.04) mg/dL Glucose (74-99) mg/dL POC Glucose (mg/dL) 192 H (75-99) mg/dL Hemoglobin A1c (4.0-6.0) % Alkaline Phosphatase (38-126) U/L Microbiology - Last 24 Hours (Table) 10/24/17 00:00 Blood Culture - Preliminary Blood No Growth after 24 hours 10/24/17 10:07 Urine Culture - Preliminary Urine,Catheterized Assessment and Plan Plan: Assessment and plan: #1 acute on chronic hypoxic respiratory failure secondary to congestive heart failure, diastolic in nature, acute on chronic 2 end stage renal disease, on hemodialysis. 3 paroxysmal atrial fibrillation, presently on amiodarone and she is on anti- coagulation therapy along with Cardizem. 9 essential hypertension 6 coronary artery disease on medical therapy 7 type 2 diabetes, remains on insulin. 8 multiple comorbidities including depression, diabetic neuropathy, hyperlipidemia, previous [place], and history of GERD. Obstructive sleep apnea syndrome. Plan From cardiology's perspective, we'll recommend to continue the patient's medications. Continue to monitor intake and output along with daily weights daily lytes BUN and creatinine. DNP note has been reviewed, I agree with a documented findings and plan of care. Patient was seen and examined.
[2017-10-25] MEDS: INSULIN ASPART 100 UNIT/ML 1 ML 10 ML VIAL SQ SCH ×6 (11:58→21:06)
[2017-10-25] MEDS: SEVELAMER 800 MG TAB PO SCH ×3 (11:58→17:14)
[2017-10-25] MEDS: AMIODARONE 100 MG TAB PO SCH (12:03)
[2017-10-25] MEDS: PANTOPRAZOLE 40 MG TABLET PO SCH (12:03)
[2017-10-25] MEDS: APIXABAN 2.5 MG TABLET PO SCH ×2 (12:04→19:37)
[2017-10-25] MEDS: CLOPIDOGREL 75 MG TAB PO SCH (12:04)
[2017-10-25] MEDS: CHOLECALCIFEROL 1,000 UNIT TAB PO SCH (12:04)
[2017-10-25] MEDS: ASPIRIN 81 MG PO SCH (12:04)
[2017-10-25] MEDS: DILTIAZEM ORAL 60 MG TAB PO SCH ×3 (12:05→19:37)
[2017-10-25] MEDS: DOCUSATE 100 MG CAP PO SCH ×2 (12:05→19:37)
[2017-10-25] MEDS: DULoxetine HCL 60 MG CAPSULE.DR PO SCH (12:05)
[2017-10-25] MEDS: EZETIMIBE 10 MG TAB PO SCH (12:05)
[2017-10-25] MEDS: FUROSEMIDE 80 MG TAB PO SCH ×2 (12:06→17:14)
[2017-10-25] MEDS: GABAPENTIN 300 MG CAP PO SCH ×2 (12:06→19:37)
[2017-10-25] MEDS: FERROUS SULFATE 325 MG TAB PO SCH (12:06)
[2017-10-25] MEDS: ISOSORBIDE MONONITRATE ER 30 MG TAB.ER.24H PO SCH (12:06)
[2017-10-25] MEDS: LORATADINE 10 MG TAB PO SCH (12:07)
[2017-10-25] MEDS: METOPROLOL SUCCINATE (ER) 100 MG TAB.ER.24H PO SCH (12:07)
[2017-10-25] MEDS: MAGNESIUM OXIDE 400 MG TAB PO SCH (12:07)
--- NOTE | 2017-10-25 12:23 | P.PN ---
Subjective Progress Note Date: 10/25/17 This is a 72-year-old female patient of Dr. Garcia with past medical history of atrial fibrillation, coronary artery disease status post myocardial infarction, has history of triple-vessel disease but was considered high risk for bypass, on conservative treatment,chronic diastolic heart failure , diabetes mellitus type 2, hyperlipidemia, hypertension, end-stage renal disease on hemodialysis, peripheral neuropathy.patient was recently hospitalized at [facility] in with significant shortness of breath, she was suggestive of pulmonary edema with acute kidney injury on CK D4 in the December 2016 patient was initiated on hemodialysis Monday and Monday, patient was in her usual state of health about yesterday and according to her son who was at the bedside she was doing fine up until about 6 PM she had mac & cheese at around noon and then she had a salad and a few minutes later developed to have significant shortness breath she ended up coming to the ER at [facility] she was found to have significant hyperkalemia and hyponatremia and the patient was full of fluid and she ended up getting dialyzed in the ER and she will be admitted to the hospital after she was started on BiPAP she would be seen in consultation by cardiology as well as pulmonary medicine. 10/25: Patient is laying down in bed she is getting dialysis she is feeling better she has less shortness of breath, she denies any abdominal pain, no chest pain, no abdominal pain, nausea, vomiting. Objective - Vital Signs Vital signs: Vital Signs Temp 98 F 10/24/17 23:55 Pulse 72 10/24/17 23:55 Resp 17 10/24/17 23:55 BP 138/65 10/24/17 23:55 Pulse Ox 98 10/24/17 20:00 Intake & Output 10/24/17 10/25/17 10/25/17 18:59 06:59 18:59 Intake Total 260 200 Balance 260 200 Intake: Oral 260 200 Other: Voiding Method Bedpan Bedpan Diaper Diaper - Exam - Constitutional General appearance: mild distress, obese - EENT Eyes: anicteric sclerae, EOMI, PERRLA, no ptosis, no scleral icterus, normal appearance ENT: hearing grossly normal, normal oropharynx Ears: bilateral: normal - Neck Neck: no lymphadenopathy, normal ROM, no rigidity Carotids: bilateral: upstroke normal - Respiratory Respiratory: bilateral: diminished, prolonged expiration, negative: dullness, rales, rhonchi, wheezing - Cardiovascular Rhythm: regular Heart sounds: normal: S1, S2 Abnormal Heart Sounds: systolic murmur - Gastrointestinal General gastrointestinal: normal bowel sounds, soft, no splenomegaly, no tenderness, no umbilical hernia, no ventral hernia - Integumentary Integumentary: normal, normal turgor - Neurologic Neurologic: CNII-XII intact - Musculoskeletal Musculoskeletal: generalized weakness - Psychiatric Psychiatric: A&O x's 3, appropriate affect, intact judgment & insight - Labs CBC & Chem 7: 10/25/17 05:44 10/24/17 14:45 Labs: Abnormal Lab Results - Last 24 Hours (Table) 10/24/17 10/24/17 10/24/17 Range/Units 00:00 12:06 12:33 WBC 11.6 H (3.8-10.6) k/uL RBC 3.37 L (3.80-5.40) m/uL Hgb 10.3 L (11.4-16.0) gm/dL Hct 33.2 L (34.0-46.0) % MCHC (31.0-37.0) g/dL RDW 17.1 H (11.5-15.5) % Neutrophils # 9.5 H (1.3-7.7) k/uL Chloride (98-107) mmol/L BUN (7-17) mg/dL Creatinine (0.52-1.04) mg/dL Glucose (74-99) mg/dL POC Glucose (mg/dL) 156 H (75-99) mg/dL Hemoglobin A1c 6.5 H (4.0-6.0) % Alkaline Phosphatase (38-126) U/L 10/24/17 10/24/17 10/24/17 Range/Units 14:45 15:11 16:25 WBC (3.8-10.6) k/uL RBC (3.80-5.40) m/uL Hgb (11.4-16.0) gm/dL Hct (34.0-46.0) % MCHC (31.0-37.0) g/dL RDW (11.5-15.5) % Neutrophils # (1.3-7.7) k/uL Chloride 94 L (98-107) mmol/L BUN 32 H (7-17) mg/dL Creatinine 4.30 H (0.52-1.04) mg/dL Glucose 132 H (74-99) mg/dL POC Glucose (mg/dL) 126 H 122 H (75-99) mg/dL Hemoglobin A1c (4.0-6.0) % Alkaline Phosphatase 133 H (38-126) U/L 10/24/17 10/25/17 10/25/17 Range/Units 21:05 05:44 06:07 WBC (3.8-10.6) k/uL RBC 3.09 L (3.80-5.40) m/uL Hgb 9.3 L (11.4-16.0) gm/dL Hct 30.2 L (34.0-46.0) % MCHC 30.9 L (31.0-37.0) g/dL RDW 17.5 H (11.5-15.5) % Neutrophils # (1.3-7.7) k/uL Chloride (98-107) mmol/L BUN (7-17) mg/dL Creatinine (0.52-1.04) mg/dL Glucose (74-99) mg/dL POC Glucose (mg/dL) 225 H 124 H (75-99) mg/dL Hemoglobin A1c (4.0-6.0) % Alkaline Phosphatase (38-126) U/L 10/25/17 Range/Units 11:28 WBC (3.8-10.6) k/uL RBC (3.80-5.40) m/uL Hgb (11.4-16.0) gm/dL Hct (34.0-46.0) % MCHC (31.0-37.0) g/dL RDW (11.5-15.5) % Neutrophils # (1.3-7.7) k/uL Chloride (98-107) mmol/L BUN (7-17) mg/dL Creatinine (0.52-1.04) mg/dL Glucose (74-99) mg/dL POC Glucose (mg/dL) 192 H (75-99) mg/dL Hemoglobin A1c (4.0-6.0) % Alkaline Phosphatase (38-126) U/L Microbiology - Last 24 Hours (Table) 10/24/17 10:07 Urine Culture - Final Urine,Catheterized 10/24/17 00:00 Blood Culture - Preliminary Blood No Growth after 24 hours Assessment and Plan Assessment: Assessment and plan: 1. Acute hypoxemic respiratory failure due to acute diastolic heart failure . Patient underwent dialysis, she will be maintained on her Lasix 80 mg orally twice every day, she will be monitored very closely, she will be maintained on BiPAP for now, to maintain oxygen saturation of greater than 92% at all the time. Pulmonary consultation as well as cardiology consultation was obtained. 2 chronic diastolic heart failure, currently compensated on hemodialysis for fluid excess management Moderate aortic stenosis. Continue on BiPAP continue patient on Imdur 30 mg orally once every day, Toprol-XLl 100 mg orally once every day, Lasix 80 mg orally twice every day. 3. End-stage renal disease on hemodialysis Tuesdays and Saturdays. We will continue Selevamer 800 mg orally 3 times a day with meals. 4. Hypertension. Continue metoprolol 100 mg orally once every day. 5. Paroxysmal atrial fibrillation. Continue amiodarone 100 mg orally once every day, Eliquis 2.5 mg orally twice every day along with Cardizem 60 mg orally 3 times every day. 6. Morbid obesity with BMI of 39. Weight loss. 7. CAD. Continue patient on Toprol-XL 100 mg orally once every day, continue patient also on aspirin 81 mg once every day, Plavix 75 mg orally once every day. 8. Diabetes mellitus type 2 . Continue Lantus 25 units twice every day along with Humalog per scale, continue consistent carbohydrate diet and renal diet, BGM before each meal and bedtime. 9. GERD. Continue Protonix 40 mg orally once every day. 10. Hypertension and hypertensive cardiovascular disease. Toprol-XL 100 mg orally once every day, and Cardizem 60 mg orally 2 times every day. 11. History of myocardial infarction and coronary artery disease. Continue aspirin 81 mg once every day, Toprol-XL 100 mg orally once every day, Imdur 30 mg orally once every day, Zetia 10 mg orally once every day. 12. Hyperlipidemia. Intolerant to statins, continue Zetia 10 mg orally once every day. 13. Diabetic peripheral neuropathy and neuropathy secondary to chronic back pain. Continue gabapentin 300 mg orally twice every day. 14. Depression. Continue Cymbalta 60 mg orally once every day. 15. DVT prophylaxis. On Eliquis 2.5 mg twice every day as well as bilateral knee-high TERRIE hose. 16. Prophylaxis. Continue patient on PPI. 17. Home tomorrow morning postdialysis.
[2017-10-25 13:00] VITALS: BMI 37.3
[2017-10-25 16:29] LABS: Glucose,Whole Blood 215 mg/dL (75-99)
[2017-10-25 19:54] LABS: Magnesium 2.2 mg/dL (1.6-2.3); Potassium 4.4 mmol/L (3.5-5.1)
[2017-10-25 20:56] LABS: Glucose,Whole Blood 227 mg/dL (75-99)
--- NOTE | 2017-10-25 20:59 | XR ---
EXAMINATION: XR chest 1V DATE AND TIME: 10/25/2017 8:53 PM ORDERING PROVIDER: Mariam Botello MD~[id number] CLINICAL INDICATION: chf TECHNIQUE: AP upright portable COMPARISON: 10/24/2017 DESCRIPTION: The overlying soft tissues are very prominent. The lungs appear to be clear. The pleural spaces are negative. The cardiac silhouette is mildly enlarged. The skeletal structures are intact without definite acute findings. The soft tissues are unremarkable. IMPRESSION: NO ACUTE PROCESS.
--- NOTE | 2017-10-25 21:00 | PN ---
PROGRESS NOTE Patient is seen for followup for end-stage renal disease. She had hemodialysis yesterday and is currently seen on hemodialysis again. Overall, patient states she is feeling better and is breathing easier. We will check a chest x-ray after hemodialysis to follow up on the pulmonary vascular congestion. On examination today, systolic blood pressure is around 125 to 128 mmHg. Heart rate was 104 per minute. Patient is afebrile. EXAMINATION OF THE HEART: S1, S2. EXAMINATION OF LUNGS: Bilateral breath sounds are heard. ABDOMEN: Soft, non-tender. Examination of lower extremities shows no evidence of edema. LACQUER MIXER exam is grossly intact. Labs show potassium 4.6, sodium 136. ASSESSMENT: 1. End-stage renal disease, on hemodialysis on a Monday, , Monday schedule. 2. Volume overload, currently clinically improved. Will repeat another chest x-ray after hemodialysis today. 3. Acute hypoxic respiratory failure due to heart failure and congestive heart failure, currently improved. 4. Acute on top of chronic diastolic heart failure, now improved with hemodialysis. 5. Paroxysmal atrial fibrillation, maintained on amiodarone and Eliquis with controlled rate. 6. Type 2 diabetes. 7. Chronic kidney disease mineral bone disorder. PLAN: Repeat chest x-ray after hemodialysis today. Patient will have her regular treatment of hemodialysis again tomorrow morning. Her dry weight will be adjusted again as outpatient. I have discussed possibly adding a short treatment as outpatient on Mondays to help with the volume status. MMODL / IJN: [id number] /
[2017-10-26 06:13] LABS: Glucose,Whole Blood 195 mg/dL (75-99)
[2017-10-26] MEDS: INSULIN ASPART 100 UNIT/ML 1 ML 10 ML VIAL SQ SCH ×5 (06:13→18:51)
[2017-10-26] MEDS: PANTOPRAZOLE 40 MG TABLET PO SCH (06:14)
[2017-10-26] MEDS: SEVELAMER 800 MG TAB PO SCH ×3 (06:14→18:43)
[2017-10-26 06:25] LABS: Anisocytosis Slight; Basophils # (A) 0.1 k/uL (0-0.2); Basophils % (A) 1 %; Eosinophils # (A) 0.3 k/uL (0-0.7); Eosinophils % (A) 4 %; HCT 30.5 % (34.0-46.0); HGB 9.7 gm/dL (11.4-16.0); Hypochromasia Moderate; Lymphocytes # (A) 1.5 k/uL (1.0-4.8); Lymphocytes % (A) 20 %; MCH 31.1 pg (25.0-35.0); MCHC 31.8 g/dL (31.0-37.0); MCV 97.9 fL (80.0-100.0); Macrocytosis Slight; Mean Platelet Volume 7.5; Monocytes # (A) 0.6 k/uL (0-1.0); Monocytes % (A) 9 %; Neutrophils # (A) 4.6 k/uL (1.3-7.7); Neutrophils % (A) 63 %; Platelet Count 218 k/uL (150-450); RBC 3.12 m/uL (3.80-5.40); RDW 17.8 % (11.5-15.5); WBC 7.3 k/uL (3.8-10.6)
[2017-10-26 06:47] LABS: Albumin 3.5 g/dL (3.5-5.0); Calcium 8.9 mg/dL (8.4-10.2); Potassium 4.3 mmol/L (3.5-5.1); Total Bilirubin 0.5 mg/dL (0.2-1.3); Total Protein 6.5 g/dL (6.3-8.2)
[2017-10-26] MEDS ORDERED: INSULIN ASPART 100 UNIT/ML 1 ML 10 ML VIAL SQ SCH (07:30)
[2017-10-26] MEDS: AMIODARONE 100 MG TAB PO SCH (09:20)
[2017-10-26] MEDS: APIXABAN 2.5 MG TABLET PO SCH (09:20)
[2017-10-26] MEDS: CLOPIDOGREL 75 MG TAB PO SCH (09:21)
[2017-10-26] MEDS: DILTIAZEM ORAL 60 MG TAB PO SCH ×2 (09:21→18:43)
[2017-10-26] MEDS: DULoxetine HCL 60 MG CAPSULE.DR PO SCH (09:21)
[2017-10-26] MEDS: CHOLECALCIFEROL 1,000 UNIT TAB PO SCH (09:21)
[2017-10-26] MEDS: ASPIRIN 81 MG PO SCH (09:21)
[2017-10-26] MEDS: DOCUSATE 100 MG CAP PO SCH (09:21)
[2017-10-26] MEDS: FUROSEMIDE 80 MG TAB PO SCH ×2 (09:22→18:43)
[2017-10-26] MEDS: GABAPENTIN 300 MG CAP PO SCH (09:22)
[2017-10-26] MEDS: FERROUS SULFATE 325 MG TAB PO SCH (09:22)
[2017-10-26] MEDS: EZETIMIBE 10 MG TAB PO SCH (09:22)
[2017-10-26] MEDS: ISOSORBIDE MONONITRATE ER 30 MG TAB.ER.24H PO SCH (09:22)
[2017-10-26] MEDS: METOPROLOL SUCCINATE (ER) 100 MG TAB.ER.24H PO SCH (09:23)
[2017-10-26] MEDS: MAGNESIUM OXIDE 400 MG TAB PO SCH (09:23)
[2017-10-26] MEDS: LORATADINE 10 MG TAB PO SCH (09:23)
[2017-10-26 09:36] VITALS: RESP 16
--- NOTE | 2017-10-26 10:44 | XR ---
EXAMINATION TYPE: XR chest 1V portable DATE OF EXAM: 10/26/2017 COMPARISON: Prior chest x-ray 10/25/2017 HISTORY: Congestive heart failure TECHNIQUE: Single frontal view of the chest is obtained. FINDINGS: Lung volumes are low. Heart is at the upper limit of normal. Metallic density seen at the l eft hilar region as on prior, findings may be due to vertebral plasty change and embolization, chroni c. Postop changes are noted to the thoracic lumbar spine region. Interstitium is mildly increased. No evident pneumothorax or pleural effusion. Pulmonary vascularity shows a similar appearance. Question some prominence of the central vascularity. IMPRESSION: Correlate for possible pulmonary venous hypertension and interstitial edema, volume over load. Findings could be due to expiratory technique. Follow-up as indicated.
--- NOTE | 2017-10-26 11:33 | P.PN ---
Subjective Progress Note Date: 10/26/17 This is a 72-year-old patient with past medical history significant for persistent atrial fibrillation, coronary artery disease with prior myocardial infarction, has known triple-vessel coronary artery disease but was considered high risk for bypass, on conservative medical therapy, chronic diastolic heart failure, diabetes, hyperlipidemia, hypertension, end-stage renal disease on hemodialysis, peripheral neuropathy who presented to the hospital with symptoms of fairly sudden onset of shortness of breath. She was found to have significant hyperkalemia and hyponatremia as well as fluid overload. She was dialyzed in the emergency room and admitted to the hospital. Patient was seen and examined today, doing much better overall. Awake and alert and in no acute distress. She denies any worsening shortness of breath cough or congestion. Remains afebrile and hemodynamically stable. I pressure this morning 138/60 with a heart rate in the 70s, 98 temperature, temperature 8:00 last night was 99.7. White blood cell count 8.0, hemoglobin 9.3, platelet count 192. 10/26/2017 Patient was seen and examined this morning, overall feeling significantly better. Currently on oral diuretics. Anticipating discharge home after her dialysis today. Objective - Vital Signs Vital signs: Vital Signs Temp 97.3 F L 10/26/17 09:20 Pulse 82 10/26/17 09:20 Resp 16 10/26/17 09:20 BP 166/71 10/26/17 09:20 Pulse Ox 92 L 10/26/17 09:20 Intake & Output 10/25/17 10/26/17 10/26/17 18:59 06:59 18:59 Intake Total 444 360 360 Output Total 700 Balance -256 360 360 Weight 92.533 kg 96.5 kg Intake: Oral 444 360 360 Output: Urine 700 Other: Voiding Method Bedpan Bedpan Bedpan Diaper Diaper Diaper # Voids 0 - Exam PHYSICAL EXAMINATION: GENERAL: This is a 72-year-old female in no acute distress at the time of my examination HEENT: Head is atraumatic, normocephalic. Pupils equal, round. Sclera anicteric. Conjunctiva are clear. Mucous membranes of the mouth are moist. Neck is supple. There is no elevated jugular venous pressure.] bruit is heard. HEART EXAMINATION: Heart S1 S2 1 systolic murmur is heard CHEST EXAMINATION: Lungs reveal diminished air entry to bilateral bases ABDOMEN: Soft, obese, nontender. Bowel sounds are heard. No organomegaly noted. EXTREMITIES: 2+ peripheral pulses with no evidence of peripheral edema and no calf tenderness noted. NEUROLOGIC patient is awake, alert and oriented ?-3. . - Labs CBC & Chem 7: 10/26/17 05:48 10/26/17 05:48 Labs: Abnormal Lab Results - Last 24 Hours (Table) 10/25/17 10/25/17 10/25/17 Range/Units 05:49 11:28 16:28 RBC (3.80-5.40) m/uL Hgb (11.4-16.0) gm/dL Hct (34.0-46.0) % RDW (11.5-15.5) % Sodium 136 L (137-145) mmol/L Chloride 93 L (98-107) mmol/L BUN 42 H (7-17) mg/dL Creatinine 4.93 H (0.52-1.04) mg/dL Glucose 111 H (74-99) mg/dL POC Glucose (mg/dL) 192 H 215 H (75-99) mg/dL Phosphorus 6.3 H (2.5-4.5) mg/dL Magnesium 2.4 H (1.6-2.3) mg/dL 10/25/17 10/26/17 10/26/17 Range/Units 20:35 05:48 05:48 RBC 3.12 L (3.80-5.40) m/uL Hgb 9.7 L (11.4-16.0) gm/dL Hct 30.5 L (34.0-46.0) % RDW 17.8 H (11.5-15.5) % Sodium 132 L (137-145) mmol/L Chloride 90 L (98-107) mmol/L BUN 34 H (7-17) mg/dL Creatinine 4.40 H (0.52-1.04) mg/dL Glucose 189 H (74-99) mg/dL POC Glucose (mg/dL) 227 H (75-99) mg/dL Phosphorus (2.5-4.5) mg/dL Magnesium (1.6-2.3) mg/dL 10/26/17 Range/Units 06:11 RBC (3.80-5.40) m/uL Hgb (11.4-16.0) gm/dL Hct (34.0-46.0) % RDW (11.5-15.5) % Sodium (137-145) mmol/L Chloride (98-107) mmol/L BUN (7-17) mg/dL Creatinine (0.52-1.04) mg/dL Glucose (74-99) mg/dL POC Glucose (mg/dL) 195 H (75-99) mg/dL Phosphorus (2.5-4.5) mg/dL Magnesium (1.6-2.3) mg/dL Microbiology - Last 24 Hours (Table) 10/24/17 00:00 Blood Culture - Preliminary Blood No Growth after 48 hours 10/24/17 10:07 Urine Culture - Final Urine,Catheterized Assessment and Plan Plan: Assessment and plan: #1 acute on chronic hypoxic respiratory failure secondary to congestive heart failure, diastolic in nature, acute on chronic 2 end stage renal disease, on hemodialysis. 3 paroxysmal atrial fibrillation, presently on amiodarone and she is on anti- coagulation therapy along with Cardizem. 9 essential hypertension 6 coronary artery disease on medical therapy 7 type 2 diabetes, remains on insulin. 8 multiple comorbidities including depression, diabetic neuropathy, hyperlipidemia, previous [place], and history of GERD. Obstructive sleep apnea syndrome. Plan From cardiology's perspective, we'll recommend to continue the patient's medications. We will make her a follow-up appointment in the office post discharge. DNP note has been reviewed, I agree with a documented findings and plan of care. Patient was seen and examined.
--- NOTE | 2017-10-26 11:40 | P.DS ---
Providers Date of admission: 10/24/17 01:06 Attending physician: Junie Dewey Consults: 10/24/17 01:05 Consult Physician Routine Consulting Provider: Mariam Botello Consult Reason/Comments: Hyperkalemia, uremic encephalopathy Do you want consulting provider notified?: Yes 10/24/17 10:37 Consult Physician Routine Consulting Provider: Carolina Hanson Consult Reason/Comments: copd Do you want consulting provider notified?: Yes 10/24/17 10:38 Consult Physician Routine Consulting Provider: Chava Combs Consult Reason/Comments: CHF Do you want consulting provider notified?: Yes Primary care physician: Meghan Adena [facility] Course: This is a 72-year-old female patient of Dr. Garcia with past medical history of atrial fibrillation, coronary artery disease status post myocardial infarction, has history of triple-vessel disease but was considered high risk for bypass, on conservative treatment,chronic diastolic heart failure , diabetes mellitus type 2, hyperlipidemia, hypertension, end-stage renal disease on hemodialysis, peripheral neuropathy.patient was recently hospitalized at [facility] in with significant shortness of breath, she was suggestive of pulmonary edema with acute kidney injury on CK D4 in the December 2016 patient was initiated on hemodialysis Monday and Monday, patient was in her usual state of health about yesterday and according to her son who was at the bedside she was doing fine up until about 6 PM she had mac & cheese at around noon and then she had a salad and a few minutes later developed to have significant shortness breath she ended up coming to the ER at [facility] she was found to have significant hyperkalemia and hyponatremia and the patient was full of fluid and she ended up getting dialyzed in the ER and she will be admitted to the hospital after she was started on BiPAP she would be seen in consultation by cardiology as well as pulmonary medicine. 10/25: Patient is laying down in bed she is getting dialysis she is feeling better she has less shortness of breath, she denies any abdominal pain, no chest pain, no abdominal pain, nausea, vomiting. 10/26: Patient was evaluated today. She reports shortness of breath has improved significantly. She is resting in bed denies any shortness of breath, chest pain , abdominal pain, nausea or vomiting. She is scheduled to have dialysis today afterwards she'll be discharged home. Discharge diagnoses 1. Acute hypoxemic respiratory failure due to acute diastolic heart failure. 2. chronic diastolic heart failure, currently compensated on hemodialysis for fluid excess management Moderate aortic stenosis. 3. End-stage renal disease on hemodialysis Tuesdays and Saturdays. 4. Hypertension. 5. Paroxysmal atrial fibrillation. 6. Morbid obesity with BMI of 39. 7. CAD. 8. Diabetes mellitus type 2. 9. GERD. 10. Hypertension and hypertensive cardiovascular disease. 11. History of myocardial infarction and coronary artery disease. 12. Hyperlipidemia. 13. Diabetic peripheral neuropathy and neuropathy secondary to chronic back pain. 14. Depression. The above impression and plan of care have been discussed and directed by signing physician. Jossie Negron nurse practitioner acting as scribe for signing physician. Patient Condition at Discharge: Stable Plan - Discharge Summary Discharge Rx Participant: No New Discharge Prescriptions: Continue DULoxetine HCL [Cymbalta] 60 mg PO DAILY Fish Oil/Dha/Epa [Fish Oil 1,200 mg Fish Oil] 1 cap PO MOWEFR Amiodarone HCl [Pacerone] 100 mg PO DAILY Apixaban [Eliquis] 2.5 mg PO BID Docusate [Colace] 100 mg PO BID Ezetimibe [Zetia] 10 mg PO DAILY Isosorbide Mononitrate ER [Imdur] 30 mg PO DAILY Gabapentin [Neurontin] 300 mg PO BID #60 capsule Omeprazole 20 mg PO DAILY Cranberry 4200mg-Vitamin C 1 tab PO BID Cholecalciferol (Vitamin D3) [Vitamin D3] 2,000 unit PO DAILY Furosemide [Lasix] 80 mg PO BID@0900,1600 tab Magnesium Oxide [Mag-Ox] 250 mg PO DAILY Ferrous Sulfate [Iron (65 MG Elemental)] 325 mg PO DAILY Metoprolol Succinate (ER) [Toprol XL] 100 mg PO DAILY Insulin Aspart [NovoLOG (formulary)] See Protocol SQ AC-TID Sevelamer [Renvela] 800 mg PO TID-W/MEALS #90 tab Insulin Aspart [NovoLOG (formulary)] 12 unit SQ AC-BRKFST Insulin Glargine [Lantus] 25 unit SQ BID Clopidogrel [Plavix] 75 mg PO DAILY #30 tab Fexofenadine HCl [Amanda Allergy] 180 mg PO DAILY Insulin Aspart [NovoLOG] 14 unit SQ AC-SUPPER Insulin Aspart [NovoLOG] 14 unit SQ AC-LUNCH Aspirin 81 mg PO DAILY #90 chewable Diltiazem HCl 60 mg PO TID Midodrine HCl [ProAmatine] 5 mg PO DAILY PRN PRN Reason: DIALYSIS Discharge Medication List DULoxetine HCL [Cymbalta] 60 mg PO DAILY 08/04/14 [History] Fish Oil/Dha/Epa [Fish Oil 1,200 mg Fish Oil] 1 cap PO MOWEFR 08/04/14 [History] Amiodarone HCl [Pacerone] 100 mg PO DAILY 11/22/15 [History] Apixaban [Eliquis] 2.5 mg PO BID 11/22/15 [History] Docusate [Colace] 100 mg PO BID 11/22/15 [History] Ezetimibe [Zetia] 10 mg PO DAILY 11/22/15 [History] Isosorbide Mononitrate ER [Imdur] 30 mg PO DAILY 11/22/15 [History] Gabapentin [Neurontin] 300 mg PO BID #60 capsule 11/27/15 [Rx] Cranberry 4200mg-Vitamin C 1 tab PO BID 12/25/16 [History] Omeprazole 20 mg PO DAILY 12/25/16 [History] Cholecalciferol (Vitamin D3) [Vitamin D3] 2,000 unit PO DAILY 12/31/16 [History] Furosemide [Lasix] 80 mg PO BID@0900,1600 tab 01/13/17 [Rx] Ferrous Sulfate [Iron (65 MG Elemental)] 325 mg PO DAILY 05/05/17 [History] Insulin Aspart [NovoLOG (formulary)] See Protocol SQ AC-TID 05/05/17 [History] Magnesium Oxide [Mag-Ox] 250 mg PO DAILY 05/05/17 [History] Metoprolol Succinate (ER) [Toprol XL] 100 mg PO DAILY 05/05/17 [History] Sevelamer [Renvela] 800 mg PO TID-W/MEALS #90 tab 05/15/17 [Rx] Insulin Aspart [NovoLOG (formulary)] 12 unit SQ AC-BRKFST 08/16/17 [History] Insulin Glargine [Lantus] 25 unit SQ BID 08/16/17 [History] Clopidogrel [Plavix] 75 mg PO DAILY #30 tab 08/21/17 [Rx] Fexofenadine HCl [Amanda Allergy] 180 mg PO DAILY 09/27/17 [History] Insulin Aspart [NovoLOG] 14 unit SQ AC-LUNCH 09/27/17 [History] Insulin Aspart [NovoLOG] 14 unit SQ AC-SUPPER 09/27/17 [History] Aspirin 81 mg PO DAILY #90 chewable 10/07/17 [Rx] Diltiazem HCl 60 mg PO TID 10/23/17 [History] Midodrine HCl [ProAmatine] 5 mg PO DAILY PRN 10/23/17 [History] Follow up Appointment(s)/Referral(s): [facility] [Provider Group] - 1 Week Alton Fishman MD [STAFF PHYSICIAN] - 1 Week Meghan Garcia MD [Primary Care Provider] - 1-2 days Mariam Botello MD [STAFF PHYSICIAN] - 1 Week Patient Instructions/Handouts: Pleural Effusion (DC), Hyperkalemia (DC)
[2017-10-26 11:58] LABS: Glucose,Whole Blood 298 mg/dL (75-99)
--- NOTE | 2017-10-26 12:15 | P.PN ---
Subjective Progress Note Date: 10/26/17 Principal diagnosis: Pulmonary edema and fluid volume overload This is a 72-year-old female with history of multiple medical problems including coronary artery disease, previous HI, chronic atrial fibrillation, triple-vessel coronary artery disease, not a good candidate for surgery, patient is being managed medically. She has history of chronic diastolic congestive heart failure, diabetes, hypertension, end-stage renal disease, on hemodialysis 3 days of the week. Patient presented last night to the ER complaining of increased shortness of breath, shortness of breath became more pronounced, upon evaluation in the ER, the patient was noted to have fluid overload/pulmonary edema, she was also noted to have hyperkalemia, hyponatremia , and worsening renal failure. Early this morning, the patient was dialyzed, admitted to the medical floor/cardiac floor, and I was asked to see her on consultation. At this point and says dialysis, the patient is feeling much better, breathing a lot easier, she does use BiPAP at night for obstructive sleep apnea syndrome, and she has been seen by Dr. Hanson in the past for obstructive sleep apnea problem. At present upon my evaluation, the patient denied any headaches, no blurred vision, no dizziness, no shortness of breath, no cough, no wheezing, no chest pain, no nausea, no vomiting, no abdominal pain , no melena, and no hematemesis. No dysuria and no frequency no urgency. She does make a bit of urine, not much improved even with the use of Lasix. Patient is seen again today 10/26/2017 in follow-up on the selective care unit. She is awake and alert in no acute distress. Her chest x-ray shows improvement in the pulmonary edema. She did receive hemodialysis yesterday. She denies any worsening shortness of breath, cough or congestion. 18 in good O2 saturations in the 90s on room air. She's been afebrile. Hemodynamically stable. Blood and urine cultures reveal no growth. White count 7.3. Hemoglobin 9.7. Creatinine 4.40. Objective - Vital Signs Vital signs: Vital Signs Temp 97.3 F L 10/26/17 09:20 Pulse 82 10/26/17 09:20 Resp 16 10/26/17 09:20 BP 166/71 10/26/17 09:20 Pulse Ox 92 L 10/26/17 09:20 Intake & Output 10/25/17 10/26/17 10/26/17 18:59 06:59 18:59 Intake Total 444 360 360 Output Total 700 Balance -256 360 360 Weight 92.533 kg 96.5 kg Intake: Oral 444 360 360 Output: Urine 700 Other: Voiding Method Bedpan Bedpan Bedpan Diaper Diaper Diaper # Voids 0 - Exam Physical Exam: Revealed a 72-year-old female obese, in no distress, very pleasant. Head: Cushingoid, normocephalic, atraumatic. HEENT:[ Short obese neck, Neck is supple.] [No neck masses.] [No thyromegaly.] [ No JVD.] PERRLA, EOMI, no icterus. Moist mucous membranes. Chest: [Diminished breath sounds at the bases with crackles and prolonged expiratory phase noted.] Cardiac Exam: [Distant S1 and S2, no S3 gallop, 2/6 systolic murmur thought the precordium.] Abdomen: [Morbidly obese, Soft, nontender, no megaly, no rebound, no guarding, normal bowel sounds.] Extremities: [No clubbing, no edema, no cyanosis.] Neurological Exam: [No focal neurologic deficit. Lymphatics: No lymphadenopathy. Skin: Normal turgor, no rashes.] Psychiatric: Normal mood, affect and mental status examination. - Labs CBC & Chem 7: 10/26/17 05:48 10/26/17 05:48 Labs: Abnormal Lab Results - Last 24 Hours (Table) 10/25/17 10/25/17 10/25/17 Range/Units 05:49 16:28 20:35 RBC (3.80-5.40) m/uL Hgb (11.4-16.0) gm/dL Hct (34.0-46.0) % RDW (11.5-15.5) % Sodium 136 L (137-145) mmol/L Chloride 93 L (98-107) mmol/L BUN 42 H (7-17) mg/dL Creatinine 4.93 H (0.52-1.04) mg/dL Glucose 111 H (74-99) mg/dL POC Glucose (mg/dL) 215 H 227 H (75-99) mg/dL Phosphorus 6.3 H (2.5-4.5) mg/dL Magnesium 2.4 H (1.6-2.3) mg/dL 10/26/17 10/26/17 10/26/17 Range/Units 05:48 05:48 06:11 RBC 3.12 L (3.80-5.40) m/uL Hgb 9.7 L (11.4-16.0) gm/dL Hct 30.5 L (34.0-46.0) % RDW 17.8 H (11.5-15.5) % Sodium 132 L (137-145) mmol/L Chloride 90 L (98-107) mmol/L BUN 34 H (7-17) mg/dL Creatinine 4.40 H (0.52-1.04) mg/dL Glucose 189 H (74-99) mg/dL POC Glucose (mg/dL) 195 H (75-99) mg/dL Phosphorus (2.5-4.5) mg/dL Magnesium (1.6-2.3) mg/dL 10/26/17 Range/Units 11:41 RBC (3.80-5.40) m/uL Hgb (11.4-16.0) gm/dL Hct (34.0-46.0) % RDW (11.5-15.5) % Sodium (137-145) mmol/L Chloride (98-107) mmol/L BUN (7-17) mg/dL Creatinine (0.52-1.04) mg/dL Glucose (74-99) mg/dL POC Glucose (mg/dL) 298 H (75-99) mg/dL Phosphorus (2.5-4.5) mg/dL Magnesium (1.6-2.3) mg/dL Microbiology - Last 24 Hours (Table) 10/24/17 00:00 Blood Culture - Preliminary Blood No Growth after 48 hours 10/24/17 10:07 Urine Culture - Final Urine,Catheterized Assessment and Plan Assessment: Impression: 1 acute on chronic hypoxic respiratory failure secondary to congestive heart failure, diastolic in nature. 2 end stage renal disease, on hemodialysis. 3 paroxysmal atrial fibrillation, presently on amiodarone and she is on anti- coagulation therapy along with Cardizem. 9 essential hypertension 6 coronary artery disease on medical therapy 7 type 2 diabetes, remains on insulin. 8 multiple comorbidities including depression, diabetic neuropathy, hyperlipidemia, previous HI, and history of GERD. Obstructive sleep apnea syndrome. Recommendation: The patient was seen and evaluated by Dr. Fishman. She is stable from the pulmonary standpoint and could be discharged home once cleared medically. I, the cosigning physician, performed a history & physical examination of the patient. Lungs sounds with faint crackles in the bilateral posterior bases. Maintaining good O2 saturations in the 90s on room air. I discussed the assessment and plan of care with my nurse practitioner, Aruna Aquino. I attest to the above note as dictated by her.
[2017-10-26 14:52] VITALS: TEMP 97.5
--- NOTE | 2017-10-26 14:57 | PN ---
PROGRESS NOTE The patient is seen for followup for end-stage renal disease. She is currently doing much better. Patient feels that she is back to her usual normal status. She has been dialyzed daily with significant ultrafiltration of about 3 L on every session. Patient is scheduled for her regular treatment today. PHYSICAL EXAMINATION: Blood pressure is 166/77, heart rate 80 per minute. Patient is afebrile. Examination of the heart: S1, S2. Examination lungs: Good air entry bilaterally. No crackles or wheezing is heard. Abdomen is soft, nontender. Examination lower extremities shows no evidence of edema. [employer] exam is grossly intact. LAB DATA: Sodium 132, potassium 4.3, BUN 34, serum creatinine 4.4, hemoglobin 9.7 g/dL. ASSESSMENT: 1. End-stage renal disease, on hemodialysis on a Monday, , Monday schedule, recently getting daily dialysis for the past 3 days, mainly for fluid overload. 2. Volume overload, currently significantly improved clinically. Chest x-ray from yesterday after dialysis continues to show some pulmonary vascular congestion. 3. Diastolic heart failure. 4. CKD mineral bone disorder. 5. Paroxysmal atrial fibrillation maintained on amiodarone and Eliquis. 6. Type 2 diabetes. 7. Acute hypoxic respiratory failure from fluid overload and congestive heart failure, currently improved. PLAN: Hemodialysis today with goal UF of about 3-3.5 L again. The patient is advised to weigh herself prior to discharge and as outpatient. MMODL / IJN: [id number] /
[2017-10-26 16:32] LABS: Glucose,Whole Blood 195 mg/dL (75-99)
[2017-10-26 17:23] VITALS: BP 151/60; PULSE 81
== END 2017-10-26 19:15 | disposition home or self-care (01) | DRG 189 ==
LOC: EC 22:45 → 6SEL 10-24 01:06
PROVIDERS: ADMIT Internal Medicine; ATTEND Internal Medicine
PROC: 5A1D70Z Performance of Urinary Filtration, Intermittent, Less than 6 Hours Per Day (ICD-10-PCS; principal; 2017-10-25)
DX: J96.21 Acute and chronic respiratory failure with hypoxia (principal); I50.33 Acute on chronic diastolic (congestive) heart failure; G93.49 Other encephalopathy; N18.6 End stage renal disease; I13.2 Hypertensive heart and chronic kidney disease with heart failure and with stage 5 chronic kidney disease, or end stage renal disease; E66.2 Morbid (severe) obesity with alveolar hypoventilation; E87.2 Acidosis; E87.1 Hypo-osmolality and hyponatremia; E11.22 Type 2 diabetes mellitus with diabetic chronic kidney disease; E11.42 Type 2 diabetes mellitus with diabetic polyneuropathy; E78.5 Hyperlipidemia, unspecified; E87.5 Hyperkalemia; F32.9 Major depressive disorder, single episode, unspecified; G89.29 Other chronic pain; I48.2 Chronic atrial fibrillation; I35.0 Nonrheumatic aortic (valve) stenosis; I25.2 Old myocardial infarction; I25.10 Atherosclerotic heart disease of native coronary artery without angina pectoris; E83.89 Other disorders of mineral metabolism; J44.9 Chronic obstructive pulmonary disease, unspecified; K21.9 Gastro-esophageal reflux disease without esophagitis; Z99.2 Dependence on renal dialysis; Z95.5 Presence of coronary angioplasty implant and graft; Z90.710 Acquired absence of both cervix and uterus; Z86.14 Personal history of Methicillin resistant Staphylococcus aureus infection; Z82.49 Family history of ischemic heart disease and other diseases of the circulatory system; Z82.5 Family history of asthma and other chronic lower respiratory diseases; Z79.899 Other long term (current) drug therapy; Z79.82 Long term (current) use of aspirin; Z79.4 Long term (current) use of insulin; Z79.02 Long term (current) use of antithrombotics/antiplatelets; Z79.01 Long term (current) use of anticoagulants; Z68.39 Body mass index [BMI] 39.0-39.9, adult; Z98.1 Arthrodesis status; Z88.1 Allergy status to other antibiotic agents; Z88.8 Allergy status to other drugs, medicaments and biological substances
CPT/HCPCS: 36415; 70450; 71045; 71046; 80053; 81001; 82140; 82550; 82553; 82803; 83036; 83735; 83880; 84100; 84132; 84484; 85025; 85610; 85730; 87040; 87086; 90935; 93005; 94640; 94660; 96365; 96375; 99285

== ENCOUNTER 2017-11-09 10:11 | Inpatient (IN) | payer MEDICARE ==
[2017-11-09] MEDS ORDERED: SODIUM CHLORIDE 0.9% 1,000 ML IV STA (10:26)
[2017-11-09] MEDS ORDERED: ONDANSETRON 4 MG/2 ML VIAL IVP STA (10:26)
[2017-11-09] MEDS ORDERED: ACETAMINOPHEN TAB 500 MG TAB PO STA (10:26)
[2017-11-09] MEDS ORDERED: VANCOMYCIN IV PER PHARMACY 1 EACH MISC MISCELLANE PRN ×2 (10:27→14:16)
[2017-11-09] MEDS ORDERED: PIPERACILLIN-TAZOBACTAM 3.375 GM in DEXTROSE/WATER 1 50ML.BAG IVPB STA (10:27)
[2017-11-09] MEDS ORDERED: VANCOMYCIN 1,750 MG in SODIUM CHLORIDE 0.9% 500 ML IVPB ONE ×2 (11:00→17:00)
--- NOTE | 2017-11-09 11:00 | XR ---
EXAMINATION TYPE: XR chest 2V DATE OF EXAM: 11/09/2017 COMPARISON: Prior chest 10/18/2017 HISTORY: Weakness, history COPD, difficulty breathing TECHNIQUE: Frontal and lateral views of the chest are obtained. FINDINGS: Postop changes are noted to the thoracic lumbar spine. Increased AP diameter chest could b e indicative of underlying COPD. Cardiomediastinal silhouette, pulmonary vascularity and greg are sta ble, suspect there is stable metallic density overlying the pulmonary artery on the left. Pulmonary a rtery appears prominently, there could be underlying pulmonary artery hypertension. There are overlyi ng cardiac leads. No evident pneumothorax or pleural effusion. Lung volumes are low and the patient i s rotated. Patchy basilar density suspected. IMPRESSION: Some minimal basilar atelectasis is suspected. Expiratory rotated exam, follow-up as ind icated.
[2017-11-09 11:09] LABS: Anisocytosis Slight; Basophils # (A) 0.1 k/uL (0-0.2); Basophils % (A) 0 %; Eosinophils # (A) 0.1 k/uL (0-0.7); Eosinophils % (A) 0 %; HCT 36.4 % (34.0-46.0); HGB 11.1 gm/dL (11.4-16.0); Hypochromasia Moderate; Lymphocytes # (A) 0.9 k/uL (1.0-4.8); Lymphocytes % (A) 4 %; MCH 30.5 pg (25.0-35.0); MCHC 30.5 g/dL (31.0-37.0); MCV 99.8 fL (80.0-100.0); Macrocytosis Slight; Mean Platelet Volume 8.3; Monocytes # (A) 0.9 k/uL (0-1.0); Monocytes % (A) 4 %; Neutrophils # (A) 20.5 k/uL (1.3-7.7); Neutrophils % (A) 90 %; Platelet Count 279 k/uL (150-450); RBC 3.65 m/uL (3.80-5.40); RDW 17.8 % (11.5-15.5); WBC 22.7 k/uL (3.8-10.6)
[2017-11-09 11:20] LABS: Albumin 3.9 g/dL (3.5-5.0); Calcium 9.1 mg/dL (8.4-10.2); Total Bilirubin 0.7 mg/dL (0.2-1.3)
[2017-11-09 11:28] LABS: Potassium 6.8 mmol/L (3.5-5.1)
[2017-11-09 11:29] LABS: INR 1.1 (<1.2); Prothrombin Time 10.3 sec (9.0-12.0)
[2017-11-09 11:30] LABS: Partial Thromboplastin Time 25.1 sec (22.0-30.0)
[2017-11-09] MEDS ORDERED: DEXTROSE 50%-WATER 50 ML SYRINGE IVP STA (11:33)
[2017-11-09] MEDS ORDERED: CALCIUM CHLORIDE 100 MG/ML 10 ML SYRINGE IVP STA (11:33)
[2017-11-09] MEDS ORDERED: INSULIN REGULAR 100 UNIT/ML VIAL IV ONE (11:34)
[2017-11-09] MEDS ORDERED: ALBUTEROL NEB (CONC) 2.5 MG/0.5 ML INHALATION STA (11:34)
[2017-11-09 11:35] LABS: Appearance,Urine Cloudy (Clear); Bilirubin,Urine 1+ (Negative); Blood,Urine Trace (Negative); Color,Urine Yellow; Glucose,Urine (UA) Negative (Negative); Hyaline Casts,Urine 20 /lpf (0-2); Ketones,Urine Trace (Negative); Leukocyte Esterase,Urine Moderate (Negative); Mucus,Urine Rare /hpf; Nitrite,Urine Negative (Negative); Protein,Urine 1+ (Negative); RBC,Urine 1 /hpf (0-5); Squamous Epithelial Cell,Urine 5 /hpf (0-4); WBC,Urine 5 /hpf (0-5)
[2017-11-09] MEDS ORDERED: SODIUM POLYSTYRENE SULFONATE 15 GM/60 ML BOTTLE PO STA (11:35)
[2017-11-09 11:39] LABS: Creatine Kinase 35 U/L (30-135)
--- NOTE | 2017-11-09 11:44 | ED ---
General Adult HPI - General Chief complaint: Weakness Stated complaint: poss UTI Time Seen by Provider: 11/09/17 10:25 Source: patient, EMS Mode of arrival: EMS Limitations: no limitations - History of Present Illness Initial comments: 72 years old female comes in with a fevers chills and he states for the last 24 hours he is a dialysis patient she thinks she has a bladder infection though she don't void regularly she said she voids 1-2 times a day and she was running a high fever last night CHILLS shakes and right years and she also vomited once. The planing about the mild shortness of breath no chest pain no pleuritic chest pain no abdominal pain no frequency urgency dysuria. Notes symptoms of TIA or CVA - Related Data Home Medications Medication Instructions Recorded Confirmed DULoxetine HCL [Cymbalta] 60 mg PO DAILY 08/04/14 11/09/17 Fish Oil/Dha/Epa [Fish Oil 1,200 1 cap PO MOWEFR 08/04/14 11/09/17 mg Fish Oil] Amiodarone HCl [Pacerone] 100 mg PO DAILY 11/22/15 11/09/17 Apixaban [Eliquis] 2.5 mg PO BID 11/22/15 11/09/17 Docusate [Colace] 100 mg PO BID 11/22/15 11/09/17 Ezetimibe [Zetia] 10 mg PO DAILY 11/22/15 11/09/17 Isosorbide Mononitrate ER [Imdur] 30 mg PO DAILY 11/22/15 11/09/17 Cranberry 4200mg-Vitamin C 1 tab PO BID 12/25/16 11/09/17 Omeprazole 20 mg PO DAILY 12/25/16 11/09/17 Cholecalciferol (Vitamin D3) 2,000 unit PO DAILY 12/31/16 11/09/17 [Vitamin D3] Ferrous Sulfate [Iron (65 MG 325 mg PO DAILY 05/05/17 11/09/17 Elemental)] Insulin Aspart [NovoLOG See Protocol SQ AC-TID 05/05/17 11/09/17 (formulary)] Magnesium Oxide [Mag-Ox] 250 mg PO DAILY 05/05/17 11/09/17 Metoprolol Succinate (ER) [Toprol 100 mg PO DAILY 05/05/17 11/09/17 XL] Insulin Aspart [NovoLOG 12 unit SQ AC-BRKFST 08/16/17 11/09/17 (formulary)] Insulin Glargine [Lantus] 25 unit SQ BID 08/16/17 11/09/17 Fexofenadine HCl [Amanda Allergy] 180 mg PO DAILY 09/27/17 11/09/17 Insulin Aspart [NovoLOG] 14 unit SQ AC-LUNCH 09/27/17 11/09/17 Insulin Aspart [NovoLOG] 14 unit SQ AC-SUPPER 09/27/17 11/09/17 Diltiazem HCl 60 mg PO TID 10/23/17 11/09/17 Midodrine HCl [ProAmatine] 5 mg PO DAILY PRN 10/23/17 11/09/17 Acetaminophen Tab [Tylenol Tab] 325 mg PO Q6H PRN 11/09/17 11/09/17 Clopidogrel [Plavix] 75 mg PO DAILY 11/09/17 11/09/17 Previous Rx's Medication Instructions Recorded Gabapentin [Neurontin] 300 mg PO BID #60 capsule 11/27/15 Furosemide [Lasix] 80 mg PO BID@0900,1600 tab 01/13/17 Sevelamer [Renvela] 800 mg PO TID-W/MEALS #90 tab 05/15/17 Clopidogrel [Plavix] 75 mg PO DAILY #30 tab 08/21/17 Aspirin 81 mg PO DAILY #90 chewable 10/07/17 Allergies Allergy/AdvReac Type Severity Reaction Status Date / Time KUSHAL Inhibitors Allergy Swelling Verified 11/09/17 11:07 ARB-Angiotensin Receptor Allergy Swelling Verified 11/09/17 11:07 Antagonist cephalexin monohydrate Allergy Rash/Hives Verified 11/09/17 11:07 [From Keflex] propoxyphene HCl AdvReac Hallucinati Verified 11/09/17 11:07 [From Darvon] ons Syniofm-Hwo-Hcu Reductase AdvReac Myalgia Verified 11/09/17 11:07 Inhibitor Review of Systems ROS Statement: Those systems with pertinent positive or pertinent negative responses have been documented in the HPI. ROS Other: All systems not noted in ROS Statement are negative. 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 Last Myocardial Infarction Date:: 2015 History of Any Multi-Drug Resistant Organisms: MRSA Date of last positivie culture/infection: 05/07/17 MDRO Source:: sputum Past Surgical History: Back Surgery, Cholecystectomy, Heart Catheterization, Heart Catheterization With Stent, Hysterectomy, Orthopedic Surgery Additional Past Surgical History / Comment(s): PCI with stents, several back surgeries-lumbar, bilateral carpal tunnel releases, bilateral cataract removals , port then fistula for hemodialysis. Past Anesthesia/Blood Transfusion Reactions: No Reported Reaction Additional Past Anesthesia/Blood Transfusion Reaction / Comment(s): Confusion that resolved. Date of Last Stent Placement:: 10/06/17 Past Psychological History: No Psychological Hx Reported Smoking Status: Never smoker Past Alcohol Use History: None Reported Past Drug Use History: None Reported - Past Family History Father Additional Family Medical History / Comment(s): Brain aneurysm ; age 72 Sister(s) Family Medical History: Hypertension Additional Family Medical History / Comment(s): Aortic stenosis; mitral valve disease Mother Family Medical History: AFIB, CVA/TIA, Hypertension Additional Family Medical History / Comment(s): mother age 83 Daughter(s) Family Medical History: Asthma Son(s) Family Medical History: Asthma General Exam - General Exam Comments Initial Comments: General: The patient is awake and alert, looks tired GCS is 15 Skin: Skin is warm and dry and no rashes or lesions are noted. Eye: Pupils are equal, round and reactive to light, extra-ocular movements are intact; there is normal conjunctiva bilaterally. Ears, nose, mouth and throat: There are moist mucous membranes and no oral lesions. Neck: The neck is supple, there is no tenderness him a no signs of meningitis. Cardiovascular: There is a regular rate and rhythm. No murmur, rub or gallop is appreciated. Noticed tachycardia Respiratory: To auscultation bilateral, no inspiratory effort crackles noticed at the bases Gastrointestinal: Soft, non-distended, non-tender abdomen without masses or organomegaly noted. There is no rebound or guarding present. Bowel sounds are unremarkable. Back: There is no tenderness to palpation in the midline. There is no obvious deformity. Musculoskeletal: Normal ROM, no tenderness, There is no pedal edema. There is no calf tenderness or swelling. No cords were appreciated. Neurological: CN II-XII intact, Cranial nerves III through XII are intact. There are no obvious motor or sensory deficits. Coordination appears grossly intact. Speech is normal. Psychiatric: Cooperative, appropriate mood & affect, normal judgment. Limitations: no limitations Course Vital Signs 11/09/17 11/09/17 10:16 11:21 Temperature 100.1 F H Pulse Rate 104 H 93 Respiratory 16 18 Rate Blood Pressure 112/66 123/74 O2 Sat by Pulse 92 L 96 Oximetry A white count is 22.7 with a left shift potassium is 6.8 lactate is 4.9 considering dialysis there is a limited about how much fluids I could give her she is ordered to get flank oh as well as Zosyn Dr. Botello is pink and contacted for dialysis today organisms were correct is hypercholesterolemia in here EKG Findings - EKG Comments: EKG Findings:: EKG is a sinus tachycardia ventricular rate is 1 of 5 TX interval is 162 QRS duration is 138 QRS QT/QTc is 4/533 there is a right bundle branch block and left anterior fascicular block as well review of this EKG reveals no STEMI Medical Decision Making - Lab Data Result diagrams: 11/09/17 10:22 11/09/17 10:22 Lab Results 11/09/17 11/09/17 11/09/17 Range/Units 10:22 10:22 10:22 WBC 22.7 H (3.8-10.6) k/uL RBC 3.65 L (3.80-5.40) m/uL Hgb 11.1 L (11.4-16.0) gm/dL Hct 36.4 (34.0-46.0) % MCV 99.8 (80.0-100.0) fL MCH 30.5 (25.0-35.0) pg MCHC 30.5 L (31.0-37.0) g/dL RDW 17.8 H (11.5-15.5) % Plt Count 279 (150-450) k/uL Neutrophils % 90 % Lymphocytes % 4 % Monocytes % 4 % Eosinophils % 0 % Basophils % 0 % Neutrophils # 20.5 H (1.3-7.7) k/uL Lymphocytes # 0.9 L (1.0-4.8) k/uL Monocytes # 0.9 (0-1.0) k/uL Eosinophils # 0.1 (0-0.7) k/uL Basophils # 0.1 (0-0.2) k/uL Hypochromasia Moderate Anisocytosis Slight Macrocytosis Slight PT (9.0-12.0) sec INR (<1.2) APTT (22.0-30.0) sec Sodium 135 L (137-145) mmol/L Potassium 6.8 H* (3.5-5.1) mmol/L Chloride 95 L (98-107) mmol/L Carbon Dioxide 20 L (22-30) mmol/L Anion Gap 20 mmol/L BUN 50 H (7-17) mg/dL Creatinine 6.24 H* (0.52-1.04) mg/dL Est GFR (CKD-EPI)AfAm 7 (>60 ml/min/1.73 sqM) Est GFR (CKD-EPI)NonAf 6 (>60 ml/min/1.73 sqM) Glucose 358 H (74-99) mg/dL Plasma Lactic Acid Satinder 4.9 H* (0.7-2.0) mmol/L Calcium 9.1 (8.4-10.2) mg/dL Total Bilirubin 0.7 (0.2-1.3) mg/dL AST 47 H (14-36) U/L ALT 31 (9-52) U/L Alkaline Phosphatase 163 H (38-126) U/L Total Protein 7.0 (6.3-8.2) g/dL Albumin 3.9 (3.5-5.0) g/dL Urine Color Urine Appearance (Clear) Urine pH (5.0-8.0) Ur Specific [place] (1.001-1.035) Urine Protein (Negative) Urine Glucose (UA) (Negative) Urine Ketones (Negative) Urine Blood (Negative) Urine Nitrite (Negative) Urine Bilirubin (Negative) Urine Urobilinogen (<2.0) mg/dL Ur Leukocyte Esterase (Negative) Urine RBC (0-5) /hpf Urine WBC (0-5) /hpf Ur Squamous Epith Cells (0-4) /hpf Hyaline Casts (0-2) /lpf Urine Mucus (None) /hpf 11/09/17 11/09/17 Range/Units 10:22 11:17 WBC (3.8-10.6) k/uL RBC (3.80-5.40) m/uL Hgb (11.4-16.0) gm/dL Hct (34.0-46.0) % MCV (80.0-100.0) fL MCH (25.0-35.0) pg MCHC (31.0-37.0) g/dL RDW (11.5-15.5) % Plt Count (150-450) k/uL Neutrophils % % Lymphocytes % % Monocytes % % Eosinophils % % Basophils % % Neutrophils # (1.3-7.7) k/uL Lymphocytes # (1.0-4.8) k/uL Monocytes # (0-1.0) k/uL Eosinophils # (0-0.7) k/uL Basophils # (0-0.2) k/uL Hypochromasia Anisocytosis Macrocytosis PT 10.3 (9.0-12.0) sec INR 1.1 (<1.2) APTT 25.1 (22.0-30.0) sec Sodium (137-145) mmol/L Potassium (3.5-5.1) mmol/L Chloride (98-107) mmol/L Carbon Dioxide (22-30) mmol/L Anion Gap mmol/L BUN (7-17) mg/dL Creatinine (0.52-1.04) mg/dL Est GFR (CKD-EPI)AfAm (>60 ml/min/1.73 sqM) Est GFR (CKD-EPI)NonAf (>60 ml/min/1.73 sqM) Glucose (74-99) mg/dL Plasma Lactic Acid Satinder (0.7-2.0) mmol/L Calcium (8.4-10.2) mg/dL Total Bilirubin (0.2-1.3) mg/dL AST (14-36) U/L ALT (9-52) U/L Alkaline Phosphatase (38-126) U/L Total Protein (6.3-8.2) g/dL Albumin (3.5-5.0) g/dL Urine Color Yellow Urine Appearance Cloudy H (Clear) Urine pH 5.0 (5.0-8.0) Ur Specific [place] 1.020 (1.001-1.035) Urine Protein 1+ H (Negative) Urine Glucose (UA) Negative (Negative) Urine Ketones Trace H (Negative) Urine Blood Trace H (Negative) Urine Nitrite Negative (Negative) Urine Bilirubin 1+ H (Negative) Urine Urobilinogen 3.0 (<2.0) mg/dL Ur Leukocyte Esterase Moderate H (Negative) Urine RBC 1 (0-5) /hpf Urine WBC 5 (0-5) /hpf Ur Squamous Epith Cells 5 H (0-4) /hpf Hyaline Casts 20 H (0-2) /lpf Urine Mucus Rare H (None) /hpf Critical Care Time Total Critical Care Time: 45 Critical Care Time: 71 years O female comes in with a mild fever or chills she states for the last 1 day she is a renal failure she had she has been compliant with her dialysis she also got quite diaphoretic last night she said she vomited once and she was running a high fever. She denies any headaches no neck stiffness no cough no chest pain chest pain no chest pain with a deep breaths no abdominal pain frequency urgency dysuria she stated she feels like she has a UTI's she does void Times a day he had a white count is 22.7 and now there is a significant left shift lactate is 4.9 she was started on a Zosyn and Vanco also given a contact with the Dr. Botello she will see we could arrange dialysis today my E Liao limitation about the fluids considering she is a dialysis patient and she is always short winded though the x-ray doesn't show any clear congestive heart failure and will go ahead and give her a bolus him with a maintenance fluids and I'm trying to get older Dr. Botello for dialysis today also she has hyperkalemia potassium is 6.8 she is connected dextrose 1 ampule with a 10 units of regular insulin IV she will get calcium chloride to stabilize the membranes also albuterol neb and Kayexalate Disposition Clinical Impression: Sepsis, Hyperkalemia, Lactate blood increase Disposition: ADMITTED IP TO THIS HOSP Condition: Fair Referrals: Meghan Garcia MD [Primary Care Provider] - 1-2 days
[2017-11-09] MEDS ORDERED: ONDANSETRON 4 MG/2 ML VIAL IVP PRN (11:48)
[2017-11-09] MEDS ORDERED: NALOXONE 0.4 MG/ML 1 ML VIAL IV PRN (11:48)
[2017-11-09] MEDS ORDERED: ACETAMINOPHEN TAB 325 MG TAB PO PRN (11:48)
[2017-11-09 11:51] LABS: Creatine Kinase MB <0.2 ng/mL (0.0-2.4); Troponin I <0.012 ng/mL (0.000-0.034)
[2017-11-09] MEDS ORDERED: MIDODRINE 5 MG TAB PO PRN (11:54)
[2017-11-09] MEDS ORDERED: SODIUM CHLORIDE 0.9% 1,000 ML IV ONE ×2 (12:09→21:53)
[2017-11-09] MEDS ORDERED: INSULIN ASPART 100 UNIT/ML 1 ML 10 ML VIAL SQ SCH ×2 (12:30→17:30)
--- NOTE | 2017-11-09 15:18 | P.HPIM ---
History of Present Illness H&P Date: 11/09/17 72-year-old female patient of Dr. Villanueva with past medical history of atrial fibrillation, coronary artery disease status post myocardial infarction, history of triple-vessel disease disease and was considered high risk for bypass on conservative treatment, chronic diastolic heart failure, diabetes, hyperlipidemia, hypertension, end-stage renal disease on hemodialysis , peripheral neuropathy presents with sudden onset of fever, weakness associated 1 episode of vomiting on BiPAP yesterday. Vital signs is suggestive of a temp of 100.1 pulse 110 sinus, blood pressure 123/74. Labs were positive for leukocytosis of 22.7, hemoglobin 11.1, potassium 6.8, sodium 135 chloride 95 , BUN 50, creatinine 6.24, glucose 354, lactic acid 4.9 increased AST and a alkaline phosphatase. Urinalysis suggestive of dehydration Sonya in appearance, with moderate leukocyte esterase but only 5 WBCs with 20 hyalin cast. Patient received 1 L of IV fluid and is maintained on 100 mL per hour. She underwent treatment for hyperkalemia including calcium chloride , dextrose and insulin, and 15 mg of albuterol and Kayexalate. patient got vancomycin and Zosyn for broad-spectrum coverage. Will be moved to the ICU for severe sepsis with urgent dialysis performed in the ER. And was just discharged on October 26 with improvement in her WBCs. She was admitted that time for hyperkalemia and fluid overload. Review of Systems Constitutional: Denies chills, endorses fever, endorses lethargy, endorses endorses malaise, Denies poor appetite, Denies weakness, Denies weight loss Eyes: denies decreased vision, denies diplopia, denies discharge, denies pain Ears: deny: decreased hearing Ears, nose, mouth and throat: Denies dental pain, Denies headache, Denies nasal discharge, Denies nose pain Cardiovascular: Denies chest pain, Denies decreased exercise tolerance, Denies edema, Denies high blood pressure, endorses irregular heart beat, Denies palpitations, Denies paroxysmal nocturnal dyspnea, endorses rapid heart beat, Denies shortness of breath Respiratory: Denies congestion, Denies cough, Denies cough with sputum, Denies dyspnea, Denies home oxygen, Denies wheezing Gastrointestinal: Endorses endorses abdominal pain, Denies change in bowel habits, Denies coffee ground emesis, Denies early satiety, Denies excessive gas , Denies heartburn, Denies hematemesis, endorses hematochezia, Denies loss of appetite, Denies nausea, Denies vomiting Genitourinary: Denies dysuria, Denies flank pain, Denies kidney stones, Denies menorrhagia, Denies urgency, Denies urinary frequency Musculoskeletal: Endorses wheelchair-bound gait dysfunction, endorses limitation of motion, Denies morning stiffness, Denies muscle cramps Integumentary: Denies rash, Denies wounds, Denies brittle nails, Denies change in hair/nails, Denies darkening of skin Neurological: Denies balance difficulties, Denies change in speech, Denies double vision, Denies gait dysfunction, Denies loss of vision, Denies motor disturbance, Denies numbness, Denies paralysis, Denies paresthesias, Denies seizures Psychiatric: Denies anxiety, Denies depression Endocrine: Denies excessive sweating, Denies excessive thirst, endorses high blood sugars, Denies palpitations Hematologic/Lymphatic: Denies easy bruising, Denies lymphadenopathy Past Medical History Past Medical History: Atrial Fibrillation, Coronary Artery Disease (CAD), Heart Failure, Diabetes Mellitus, GERD/Reflux, Hyperlipidemia, Hypertension, Myocardial Infarction (NM), Pneumonia, Renal Disease, Sleep Apnea/CPAP/BIPAP Additional Past Medical History / Comment(s): ESRD with hemodialysis on / Mon-last done 11/09/17 in ER, urinary incontinence at times, healed sacral decubitus ulcer-prone to bedsores, current sore R foot great toe, aortic stenosis, 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 Last Myocardial Infarction Date:: 2015 History of Any Multi-Drug Resistant Organisms: MRSA Date of last positivie culture/infection: 05/07/17 MDRO Source:: sputum Past Surgical History: Back Surgery, Cholecystectomy, Heart Catheterization, Heart Catheterization With Stent, Hysterectomy, Orthopedic Surgery Additional Past Surgical History / Comment(s): PCI with stents, several back surgeries-lumbar, bilateral carpal tunnel releases, bilateral cataract removals , port then fistula for hemodialysis. Past Anesthesia/Blood Transfusion Reactions: No Reported Reaction Additional Past Anesthesia/Blood Transfusion Reaction / Comment(s): Confusion that resolved. Date of Last Stent Placement:: 10/06/17 Past Psychological History: No Psychological Hx Reported Additional Psychological History / Comment(s): Pt's rachel resides with her. Pt is wheelchair bound. She can transfer herself into wheelchair and onto toilet. Daughter organizes her medications. She has oxygen in the house which she is currently using prn. Smoking Status: Never smoker Past Alcohol Use History: None Reported Past Drug Use History: None Reported - Past Family History Father Additional Family Medical History / Comment(s): Brain aneurysm ; age 72 Sister(s) Family Medical History: Hypertension Additional Family Medical History / Comment(s): Aortic stenosis; mitral valve disease Mother Family Medical History: AFIB, CVA/TIA, Hypertension Additional Family Medical History / Comment(s): mother age 83 Daughter(s) Family Medical History: Asthma Son(s) Family Medical History: Asthma Medications and Allergies Home Medications Medication Instructions Recorded Confirmed Type DULoxetine HCL [Cymbalta] 60 mg PO DAILY 08/04/14 11/09/17 History Fish Oil/Dha/Epa [Fish Oil 1,200 1 cap PO MOWEFR 08/04/14 11/09/17 History mg Fish Oil] Amiodarone HCl [Pacerone] 100 mg PO DAILY 11/22/15 11/09/17 History Apixaban [Eliquis] 2.5 mg PO BID 11/22/15 11/09/17 History Docusate [Colace] 100 mg PO BID 11/22/15 11/09/17 History Ezetimibe [Zetia] 10 mg PO DAILY 11/22/15 11/09/17 History Isosorbide Mononitrate ER [Imdur] 30 mg PO DAILY 11/22/15 11/09/17 History Gabapentin [Neurontin] 300 mg PO BID #60 capsule 11/27/15 11/09/17 Rx Cranberry 4200mg-Vitamin C 1 tab PO BID 12/25/16 11/09/17 History Omeprazole 20 mg PO DAILY 12/25/16 11/09/17 History Cholecalciferol (Vitamin D3) 2,000 unit PO DAILY 12/31/16 11/09/17 History [Vitamin D3] Furosemide [Lasix] 80 mg PO BID@0900,1600 tab 01/13/17 11/09/17 Rx Ferrous Sulfate [Iron (65 MG 325 mg PO DAILY 05/05/17 11/09/17 History Elemental)] Insulin Aspart [NovoLOG See Protocol SQ AC-TID 05/05/17 11/09/17 History (formulary)] Magnesium Oxide [Mag-Ox] 250 mg PO DAILY 05/05/17 11/09/17 History Metoprolol Succinate (ER) [Toprol 100 mg PO DAILY 05/05/17 11/09/17 History XL] Sevelamer [Renvela] 800 mg PO TID-W/MEALS #90 tab 05/15/17 11/09/17 Rx Insulin Aspart [NovoLOG 12 unit SQ AC-BRKFST 08/16/17 11/09/17 History (formulary)] Insulin Glargine [Lantus] 25 unit SQ BID 08/16/17 11/09/17 History Clopidogrel [Plavix] 75 mg PO DAILY #30 tab 08/21/17 11/09/17 Rx Fexofenadine HCl [Amanda Allergy] 180 mg PO DAILY 09/27/17 11/09/17 History Insulin Aspart [NovoLOG] 14 unit SQ AC-LUNCH 09/27/17 11/09/17 History Insulin Aspart [NovoLOG] 14 unit SQ AC-SUPPER 09/27/17 11/09/17 History Aspirin 81 mg PO DAILY #90 chewable 10/07/17 11/09/17 Rx Diltiazem HCl 60 mg PO TID 10/23/17 11/09/17 History Midodrine HCl [ProAmatine] 5 mg PO DAILY PRN 10/23/17 11/09/17 History Acetaminophen Tab [Tylenol Tab] 325 mg PO Q6H PRN 11/09/17 11/09/17 History Clopidogrel [Plavix] 75 mg PO DAILY 11/09/17 11/09/17 History Allergies Allergy/AdvReac Type Severity Reaction Status Date / Time KUSHAL Inhibitors Allergy Swelling Verified 11/09/17 11:07 ARB-Angiotensin Receptor Allergy Swelling Verified 11/09/17 11:07 Antagonist cephalexin monohydrate Allergy Rash/Hives Verified 11/09/17 11:07 [From Keflex] propoxyphene HCl AdvReac Hallucinati Verified 11/09/17 11:07 [From Darvon] ons Fzpyaio-Thf-Epc Reductase AdvReac Myalgia Verified 11/09/17 11:07 Inhibitor Physical Exam Vitals: Vital Signs Temp Pulse Resp BP Pulse Ox 11/09/17 13:03 97 11/09/17 12:40 99 11/09/17 12:00 110 H 20 82/64 95 11/09/17 11:21 93 18 123/74 96 11/09/17 10:16 100.1 F H 104 H 16 112/66 92 L Intake and Output 11/09/17 11/09/17 11/09/17 06:59 14:59 22:59 Other: Weight 92.533 kg - Constitutional General appearance: Drowsy [id number] distress, obese, appears very sick - EENT Eyes: anicteric sclerae, PERRLA, normal appearance ENT: hearing grossly normal - Neck Neck: no lymphadenopathy, normal ROM, no other, no rigidity, no stridor, no thyromegaly - Respiratory Respiratory: bilateral: CTA, negative: diminished, dullness, rales, rhonchi - Cardiovascular Rhythm: Tachycardic but regular Heart sounds: normal: S1, S2 Abnormal Heart Sounds: no systolic murmur, no diastolic murmur, no rub, no S3 Gallop, no S4 Gallop, no click, no other - Gastrointestinal General gastrointestinal: normal bowel sounds, soft, diffusely tender - Integumentary Integumentary: no rash - Neurologic Neurologic: CNII-XII intact - Musculoskeletal Musculoskeletal: Generalized weakness with power bilateral lower extremity - Psychiatric Psychiatric: A&O x's 3, appropriate affect Results CBC & Chem 7: 11/09/17 10:22 11/09/17 10:22 Labs: Abnormal Lab Results - Last 24 Hours (Table) 11/09/17 11/09/17 11/09/17 Range/Units 10:22 10:22 10:22 WBC 22.7 H (3.8-10.6) k/uL RBC 3.65 L (3.80-5.40) m/uL Hgb 11.1 L (11.4-16.0) gm/dL MCHC 30.5 L (31.0-37.0) g/dL RDW 17.8 H (11.5-15.5) % Neutrophils # 20.5 H (1.3-7.7) k/uL Lymphocytes # 0.9 L (1.0-4.8) k/uL Sodium 135 L (137-145) mmol/L Potassium 6.8 H* (3.5-5.1) mmol/L Chloride 95 L (98-107) mmol/L Carbon Dioxide 20 L (22-30) mmol/L BUN 50 H (7-17) mg/dL Creatinine 6.24 H* (0.52-1.04) mg/dL Glucose 358 H (74-99) mg/dL Plasma Lactic Acid Satinder 4.9 H* (0.7-2.0) mmol/L AST 47 H (14-36) U/L Alkaline Phosphatase 163 H (38-126) U/L Urine Appearance (Clear) Urine Protein (Negative) Urine Ketones (Negative) Urine Blood (Negative) Urine Bilirubin (Negative) Ur Leukocyte Esterase (Negative) Ur Squamous Epith Cells (0-4) /hpf Hyaline Casts (0-2) /lpf Urine Mucus (None) /hpf 11/09/17 Range/Units 11:17 WBC (3.8-10.6) k/uL RBC (3.80-5.40) m/uL Hgb (11.4-16.0) gm/dL MCHC (31.0-37.0) g/dL RDW (11.5-15.5) % Neutrophils # (1.3-7.7) k/uL Lymphocytes # (1.0-4.8) k/uL Sodium (137-145) mmol/L Potassium (3.5-5.1) mmol/L Chloride (98-107) mmol/L Carbon Dioxide (22-30) mmol/L BUN (7-17) mg/dL Creatinine (0.52-1.04) mg/dL Glucose (74-99) mg/dL Plasma Lactic Acid Satinder (0.7-2.0) mmol/L AST (14-36) U/L Alkaline Phosphatase (38-126) U/L Urine Appearance Cloudy H (Clear) Urine Protein 1+ H (Negative) Urine Ketones Trace H (Negative) Urine Blood Trace H (Negative) Urine Bilirubin 1+ H (Negative) Ur Leukocyte Esterase Moderate H (Negative) Ur Squamous Epith Cells 5 H (0-4) /hpf Hyaline Casts 20 H (0-2) /lpf Urine Mucus Rare H (None) /hpf Thrombosis Risk Factor Assmnt - DVT/VTE Prophylaxis DVT/VTE Prophylaxis: Mechanical Prophylaxis ordered - Choose All That Apply Any of the Below Risk Factors Present?: Yes Each Factor Represents 1 point: Obesity (BMI >25), Sepsis (< 1month) Other Risk Factors: Yes Each Risk Factor Represents 2 Points: Age 61-74 years Other congenital or acquired thrombophilia - If yes, enter type in comment: No Thrombosis Risk Factor Assessment Total Risk Factor Score: 4 Thrombosis Risk Factor Assessment Level: Moderate Risk Assessment and Plan Plan: #1 severe sepsis with a history of GI bleed likely secondary to diverticulitis/ abdominal perforation/ischemic colitis. Patient has severe atherosclerosis a disease and has history of fresh blood per rectum with bowel movements according to the daughter bedside. Lactic acid is elevated but fluids can not be given as patient is a dialysis patient. 1 L IV fluid given. Continue maintenance fluid at 100 mL per hour. Continue Zosyn and Levaquin and vancomycin. CBC positive for leukocytosis, tachycardia, fever with hypotension. Blood cultures. Urinalysis negative for infection. Chest x-ray negative for infection no other possible source of infection. Pulmonary medicine for ICU care. Infectious disease recommendation on antibiotics. Gastroenterology consult #2 chronic diastolic heart failure compensated on hemodialysis for fluid exes management. History of moderate aortic stenosis. Continue Imdur 30 mg, Toprol 50 mg, if blood pressure allows. Hold Lasix 80 mg twice daily #3 end-stage renal disease on hemodialysis Monday and Monday. We' ll continue sevelamer 800 mg 3 times a day with meals #4 hypertension continue metoprolol 100 mg every day #5 proximal atrial fibrillation. Continue amiodarone 100 mg once daily. Continue Cardizem 60 mg 3 times a day. Hold and requests for concern of GI bleed #63 of myocardial infarction and coronary artery disease continue patient on Toprol-XL 50 mg once daily, hold aspirin and Plavix for concern of GI bleed. Continue Zetia 10 mg once every day #7 type 2 diabetes hold Lantus. Continue insulin sliding scale. Keep patient nothing by mouth for now. #8 GERD continue Protonix 40 mg once daily #10 hypertension and hypertensive cardiovascular disease. Continue Toprol-XL 50 mg every day, Cardizem 60 mg 3 times a day #11 history of hyperlipidemia intolerant of statins continue Zetia 10 mg once daily #12 diabetic peripheral neuropathy continue gabapentin 300 mg twice daily #13 depression continue Cymbalta 60 mg orally once daily #14 DVT prophylaxis hold L requests, Plavix and aspirin. Continue bilateral knee-high TERRIE hearn #15 CODE STATUS full code Disposition patient has a poor prognosis, need for ICU management-
--- NOTE | 2017-11-09 15:20 | P.CNPUL ---
History of Present Illness Consult date: 11/09/17 Chief complaint: Fever/sepsis History of present illness: It is a 72-year-old female patient with end-stage renal disease currently on hemodialysis for an AV fistula in the left upper extremity was coming in with acute lethargy, weakness, fevers, chills, tachycardia and fatigue. The patient was suspected to be septic and she came in to the [facility] department. The daughter is noted the patient's blood sugars have been running high recently which could be another signs of an underlying infection/sepsis. The patient denied having any cough or sputum production. No pleurisy. No chest pain. No sore throat. No headaches. No neck stiffness. No dysuria frequency urgency. She has had previous urine checked infections with E. coli none of them being resistant microorganism. She has no open wounds or sores. She has some dry scabs in her lower extremities bilaterally yet there is no evidence of any cellulitis or soft tissue infection. No nausea. No vomiting. No diarrhea. She used to have a permacath in the past that was removed and currently she is using a fistula in the left upper extremity. Her white cell count is 22. Her hemoglobin is at 11.1. Her potassium level is at 6.8 and the patient is undergoing dialysis currently the [facility] department awaiting to be transferred to the ICU. She did have some lower blood pressure with a systolic in the mid 80s and she was given a 500 mL of bolus with dialysis. I asked him to give another liter bolus and dialysis. Her lactic acid level is at 4.9. She is receiving a 2K dialysis in regards to her hyperkalemia. Review of Systems Constitutional: Reports daytime sleepiness, Reports fatigue, Reports fever, Reports lethargy, Reports night sweats, Reports sweats Eyes: denies blurred vision, denies bulging eye, denies decreased vision Ears: deny: decreased hearing, ear discharge, earache Ears, nose, mouth and throat: Denies headache, Denies sore throat Cardiovascular: Reports dyspnea on exertion Gastrointestinal: Denies abdominal pain, Denies diarrhea, Denies nausea, Denies vomiting Genitourinary: Reports as per HPI Menstruation: Reports as per HPI Musculoskeletal: Denies myalgias Musculoskeletal: absent: ankle pain, ankle stiffness, ankle swelling Integumentary: Denies pruritus, Denies rash Neurological: Denies numbness, Denies weakness Psychiatric: Denies anxiety, Denies depression Endocrine: Denies fatigue, Denies weight change Past Medical History Past Medical History: Atrial Fibrillation, Coronary Artery Disease (CAD), Heart Failure, Diabetes Mellitus, GERD/Reflux, Hyperlipidemia, Hypertension, Myocardial Infarction ([place]), Pneumonia, Renal Disease, Sleep Apnea/CPAP/BIPAP Additional Past Medical History / Comment(s): Morbid obesity, coronary artery disease, moderate degree of aortic stenosis, chronic atrial fibrillation paroxysmal, diabetes mellitus, hypertension, hyperlipidemia, 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 coli, chronic back pain, peripheral neuropathy, chronic anemia, fatty liver, obstructive sleep apnea maintained on BiPAP on outpatient basis, history of wounds/sore in the right foot that was healed, healed sacral decubitus ulceration and bedsores Last Myocardial Infarction Date:: 2015 History of Any Multi-Drug Resistant Organisms: MRSA Date of last positivie culture/infection: 05/07/17 MDRO Source:: sputum Past Surgical History: Back Surgery, Cholecystectomy, Heart Catheterization, Heart Catheterization With Stent, Hysterectomy, Orthopedic Surgery Additional Past Surgical History / Comment(s): PCI with stents, several back surgeries-lumbar, bilateral carpal tunnel releases, bilateral cataract removals , port then fistula for hemodialysis. Past Anesthesia/Blood Transfusion Reactions: No Reported Reaction Additional Past Anesthesia/Blood Transfusion Reaction / Comment(s): Confusion that resolved. Date of Last Stent Placement:: 10/06/17 Past Psychological History: No Psychological Hx Reported Additional Psychological History / Comment(s): Pt's rachel resides with her. Pt is wheelchair bound. She can transfer herself into wheelchair and onto toilet. Daughter organizes her medications. She has oxygen in the house which she is currently using prn. Smoking Status: Never smoker Past Alcohol Use History: None Reported Past Drug Use History: None Reported - Past Family History Father Additional Family Medical History / Comment(s): Brain aneurysm ; age 72 Sister(s) Family Medical History: Hypertension Additional Family Medical History / Comment(s): Aortic stenosis; mitral valve disease Mother Family Medical History: AFIB, CVA/TIA, Hypertension Additional Family Medical History / Comment(s): mother age 83 Daughter(s) Family Medical History: Asthma Son(s) Family Medical History: Asthma Medications and Allergies Home Medications Medication Instructions Recorded Confirmed Type DULoxetine HCL [Cymbalta] 60 mg PO DAILY 08/04/14 11/09/17 History Fish Oil/Dha/Epa [Fish Oil 1,200 1 cap PO MOWEFR 08/04/14 11/09/17 History mg Fish Oil] Amiodarone HCl [Pacerone] 100 mg PO DAILY 11/22/15 11/09/17 History Apixaban [Eliquis] 2.5 mg PO BID 11/22/15 11/09/17 History Docusate [Colace] 100 mg PO BID 11/22/15 11/09/17 History Ezetimibe [Zetia] 10 mg PO DAILY 11/22/15 11/09/17 History Isosorbide Mononitrate ER [Imdur] 30 mg PO DAILY 11/22/15 11/09/17 History Gabapentin [Neurontin] 300 mg PO BID #60 capsule 11/27/15 11/09/17 Rx Cranberry 4200mg-Vitamin C 1 tab PO BID 12/25/16 11/09/17 History Omeprazole 20 mg PO DAILY 12/25/16 11/09/17 History Cholecalciferol (Vitamin D3) 2,000 unit PO DAILY 12/31/16 11/09/17 History [Vitamin D3] Furosemide [Lasix] 80 mg PO BID@0900,1600 tab 01/13/17 11/09/17 Rx Ferrous Sulfate [Iron (65 MG 325 mg PO DAILY 05/05/17 11/09/17 History Elemental)] Insulin Aspart [NovoLOG See Protocol SQ AC-TID 05/05/17 11/09/17 History (formulary)] Magnesium Oxide [Mag-Ox] 250 mg PO DAILY 05/05/17 11/09/17 History Metoprolol Succinate (ER) [Toprol 100 mg PO DAILY 05/05/17 11/09/17 History XL] Sevelamer [Renvela] 800 mg PO TID-W/MEALS #90 tab 05/15/17 11/09/17 Rx Insulin Aspart [NovoLOG 12 unit SQ AC-BRKFST 08/16/17 11/09/17 History (formulary)] Insulin Glargine [Lantus] 25 unit SQ BID 08/16/17 11/09/17 History Clopidogrel [Plavix] 75 mg PO DAILY #30 tab 08/21/17 11/09/17 Rx Fexofenadine HCl [Amanda Allergy] 180 mg PO DAILY 09/27/17 11/09/17 History Insulin Aspart [NovoLOG] 14 unit SQ AC-LUNCH 09/27/17 11/09/17 History Insulin Aspart [NovoLOG] 14 unit SQ AC-SUPPER 09/27/17 11/09/17 History Aspirin 81 mg PO DAILY #90 chewable 10/07/17 11/09/17 Rx Diltiazem HCl 60 mg PO TID 10/23/17 11/09/17 History Midodrine HCl [ProAmatine] 5 mg PO DAILY PRN 10/23/17 11/09/17 History Acetaminophen Tab [Tylenol Tab] 325 mg PO Q6H PRN 11/09/17 11/09/17 History Clopidogrel [Plavix] 75 mg PO DAILY 11/09/17 11/09/17 History Allergies Allergy/AdvReac Type Severity Reaction Status Date / Time KUSHAL Inhibitors Allergy Swelling Verified 11/09/17 11:07 ARB-Angiotensin Receptor Allergy Swelling Verified 11/09/17 11:07 Antagonist cephalexin monohydrate Allergy Rash/Hives Verified 11/09/17 11:07 [From Keflex] propoxyphene HCl AdvReac Hallucinati Verified 11/09/17 11:07 [From Darvon] ons [id number] Reductase AdvReac Myalgia Verified 11/09/17 11:07 Inhibitor Physical Exam Vitals: Vital Signs Temp Pulse Resp BP Pulse Ox 11/09/17 13:03 97 11/09/17 12:40 99 11/09/17 12:00 110 H 20 82/64 95 11/09/17 11:21 93 18 123/74 96 11/09/17 10:16 100.1 F H 104 H 16 112/66 92 L Intake and Output 11/09/17 11/09/17 11/09/17 06:59 14:59 22:59 Other: Weight 92.533 kg Gen. appearance the patient is obese somewhat lethargic yet arousable and she was able to recognize myself. She denies having any acute respiratory distress and she is resting comfortably in bed as she is undergoing Hemodialysis. Head exam was generally normal. There was no scleral icterus or corneal arcus. Mucous membranes were moist. Neck was supple and without jugular venous distension, thyromegaly, or carotid bruits. Carotids were easily palpable bilaterally. There was no adenopathy. Lungs sounds are diminished bilaterally at it is clear and there is no wheezes or rhonchi or any crackles. Heart sounds are irregular, positive S1-S2 and there is a systolic ejection murmur grade 3/6 heard throughout the precordium. Abdominal exam revealed normal bowel sounds. The abdomen was soft, non-tender, and without masses, organomegaly, or appreciable enlargement of the abdominal aorta. Examination of the extremities revealed easily palpable radial, femoral and pedal pulses. There was no cyanosis, clubbing or edema. Examination of the skin revealed no evidence of significant rashes, suspicious appearing nevi or other concerning lesions. Neurologically the patient is awake and alert and there is no focal logical deficits Psychiatrically intact Results - Laboratory Findings CBC and BMP: 11/09/17 10:22 11/09/17 10:22 PT/INR, D-dimer PT 10.3 sec (9.0-12.0) 11/09/17 10:22 INR 1.1 (<1.2) 11/09/17 10:22 Abnormal lab findings: Abnormal Labs 11/09/17 11/09/17 11/09/17 10:22 10:22 10:22 WBC 22.7 H RBC 3.65 L Hgb 11.1 L MCHC 30.5 L RDW 17.8 H Neutrophils # 20.5 H Lymphocytes # 0.9 L Sodium 135 L Potassium 6.8 H* Chloride 95 L Carbon Dioxide 20 L BUN 50 H Creatinine 6.24 H* Glucose 358 H Plasma Lactic Acid Satinder 4.9 H* AST 47 H Alkaline Phosphatase 163 H Urine Appearance Urine Protein Urine Ketones Urine Blood Urine Bilirubin Ur Leukocyte Esterase Ur Squamous Epith Cells Hyaline Casts Urine Mucus 11/09/17 11:17 WBC RBC Hgb MCHC RDW Neutrophils # Lymphocytes # Sodium Potassium Chloride Carbon Dioxide BUN Creatinine Glucose Plasma Lactic Acid Satinder AST Alkaline Phosphatase Urine Appearance Cloudy H Urine Protein 1+ H Urine Ketones Trace H Urine Blood Trace H Urine Bilirubin 1+ H Ur Leukocyte Esterase Moderate H Ur Squamous Epith Cells 5 H Hyaline Casts 20 H Urine Mucus Rare H - Diagnostic Findings Chest x-ray: image reviewed Assessment and Plan Plan: Assessment 1 acute sepsis the exact source is not clear. The patient presents with fever, leukocytosis, lactic acidosis, tachycardia, and hypotension. In addition she has developed some degree of hyperglycemia related to underlying sepsis. Chest x-ray is not showing any acute source of an infection. Cultures are in progress and the patient was started on empiric antibiotics. 2 hypotension secondary to above, the patient was given a total of 1.5 L through dialysis 3 End stage renal disease on hemodialysis with AV fistula in left upper extremity 4 acute hyperkalemia with a potassium level of 6.8 currently on hemodialysis 5 diabetes mellitus with sepsis induced hyperglycemia 6 history of hypertension with diastolic heart failure and hypertensive heart disease 7 paroxysmal atrial fibrillation 8 coronary artery disease with multivessel coronary artery disease involvement and the patient has declined bypass surgery in the past and she has had on and off episodes of acute non-ST segment elevation myocardial infarction is. 9 morbid obesity with a BMI of 37.3 10 diabetic peripheral neuropathy and nephropathy 11 hypertension 12 healed pressure sores and sacral decub ulcers 13 acid reflux 14 hyperlipidemia 15 chronic anemia 16 moderate aortic stenosis based on recent echocardiogram with a preserved LV function with an ejection fraction of 55-60% Plan Obtain the blood cultures. Obtain urine cultures. Given additional boluses of IV fluid of normal saline. Cover the patient with empiric antibiotics and the patient will be given a combination of vancomycin and Zosyn pending further cultures. Monitor hemodynamics and use pressors if needed. Continue hemodialysis and monitor the potassium level. Repeat potassium level after completion of the dialysis. Stop all antihypertensive medications. Resume outpatient medications. Consult nephrology. Move the patient to the intensive care unit for further monitoring. We'll continue to follow. Echocardiogram from a few months back showed a preserved LV function with an ejection fraction of 55-60% and the patient had severe concentric of a trigger hypertrophy and hypertensive heart disease with moderate degree of aortic stenosis.
[2017-11-09] MEDS: SEVELAMER 800 MG TAB PO SCH ×2 (15:24→17:58)
[2017-11-09] MEDS ORDERED: LEVOFLOXACIN 500MG-D5W PMX 500 MG in DEXTROSE/WATER 1 100ML.BAG IVPB SCH (16:00)
[2017-11-09] MEDS ORDERED: FUROSEMIDE 80 MG TAB PO SCH (16:00)
[2017-11-09] MEDS: DILTIAZEM ORAL 60 MG TAB PO SCH ×2 (17:09→22:00)
--- NOTE | 2017-11-09 18:07 | CT ---
EXAMINATION TYPE: CT abdomen pelvis w con DATE OF EXAM: 11/09/2017 COMPARISON: 05/15/2017 HISTORY: Fever, nausea, vomiting and abdominal pain. CT DLP: 1136.5 mGycm Automated exposure control for dose reduction was used. TECHNIQUE: Helical acquisition of images was performed from the lung bases through the pelvis. CONTRAST: Performed without Oral Contrast and with IV Contrast, patient injected with 100 mL of Isovue M300. FINDINGS: VISUALIZED LOWER THORAX: Dominant left and right coronary calcifications noted. Prominent mitral and aortic valve plane calcifications. Visualized lung bases and pleural spaces are unremarkable. LIVER/GB: The liver is relatively small in volume and lobulated. No significant abnormality is apprec iated. PANCREAS: No significant abnormality is seen. SPLEEN: No significant abnormality is seen. ADRENALS: No significant abnormality is seen. KIDNEYS: No significant abnormality is seen. FREE AIR: No free air is visualized. RETROPERITONEAL ADENOPATHY: None visualized REPRODUCTIVE ORGANS: No significant abnormality is seen URINARY BLADDER: No significant abnormality is seen. PELVIC ADENOPATHY: None visualized. OSSEOUS STRUCTURES: No significant abnormality is seen. BOWEL: There is moderate plus circumferential mural thickening of the cecum, with moderate circumfer ential mural thickening of the entire ascending colon to the hepatic flexure. There is no pneumatosis . No pneumoperitoneum. No peritoneal fluid. No other drainable fluid collection. There is no bowel ob struction. Hollow viscera of the abdomen and pelvis are otherwise unremarkable. VASCULATURE: Unremarkable. IMPRESSION: 1. MODERATE-MARKED COLITIS INVOLVING THE CECUM / ASCENDING COLON, LIKELY INFLAMMATORY ETIOLOGY. 2. PROMINENT CORONARY CALCIFICATIONS.
[2017-11-09 18:35] LABS: Anisocytosis Slight; Basophils % (A) 0 %; Eosinophils % (A) 0 %; HCT 28.7 % (34.0-46.0); Hypochromasia Moderate; Lymphocytes # (A) 0.7 k/uL (1.0-4.8); Lymphocytes % (A) 4 %; MCH 30.1 pg (25.0-35.0); MCHC 30.7 g/dL (31.0-37.0); MCV 98.1 fL (80.0-100.0); Macrocytosis Slight; Mean Platelet Volume 8.1; Monocytes # (A) 0.9 k/uL (0-1.0); Monocytes % (A) 5 %; Neutrophils # (A) 16.6 k/uL (1.3-7.7); Neutrophils % (A) 90 %; Platelet Count 208 k/uL (150-450); RBC 2.93 m/uL (3.80-5.40); RDW 17.8 % (11.5-15.5); WBC 18.5 k/uL (3.8-10.6)
[2017-11-09 18:41] LABS: HGB 8.8 gm/dL (11.4-16.0)
[2017-11-09 18:52] LABS: Calcium 7.8 mg/dL (8.4-10.2); Total Bilirubin 0.5 mg/dL (0.2-1.3); Total Protein 5.7 g/dL (6.3-8.2)
[2017-11-09 20:10] LABS: Glucose,Whole Blood 248 mg/dL (75-99)
[2017-11-09] MEDS ORDERED: APIXABAN 2.5 MG TABLET PO SCH (21:00)
[2017-11-09] MEDS ORDERED: CRANBERRY 4200 MG PO SCH (21:00)
[2017-11-09] MEDS ORDERED: [UNRECOGNIZED DRUG - OTHER] PO SCH (21:00)
[2017-11-09] MEDS: GABAPENTIN 300 MG CAP PO SCH (22:00)
[2017-11-09 22:04] LABS: Glucose,Whole Blood 255 mg/dL (75-99)
[2017-11-09] MEDS: INSULIN ASPART 100 UNIT/ML 1 ML 10 ML VIAL SQ SCH ×2 (22:05→22:07)
[2017-11-09] MEDS: PIPERACILLIN-TAZOBACTAM 3.375 GM in DEXTROSE/WATER 1 50ML.BAG IVPB SCH (22:46)
[2017-11-10 02:20] LABS: Glucose,Whole Blood 216 mg/dL (75-99)
[2017-11-10] MEDS: INSULIN ASPART 100 UNIT/ML 1 ML 10 ML VIAL SQ SCH ×5 (02:23→22:38)
[2017-11-10 05:42] LABS: Anisocytosis Slight; Basophils % (A) 0 %; Eosinophils # (A) 0.1 k/uL (0-0.7); Eosinophils % (A) 1 %; HCT 27.2 % (34.0-46.0); HGB 8.4 gm/dL (11.4-16.0); Hypochromasia Moderate; Lymphocytes # (A) 1.3 k/uL (1.0-4.8); Lymphocytes % (A) 10 %; MCH 30.4 pg (25.0-35.0); MCHC 30.8 g/dL (31.0-37.0); MCV 98.6 fL (80.0-100.0); Macrocytosis Slight; Monocytes # (A) 0.8 k/uL (0-1.0); Monocytes % (A) 6 %; Neutrophils # (A) 10.7 k/uL (1.3-7.7); Neutrophils % (A) 82 %; Platelet Count 186 k/uL (150-450); RBC 2.76 m/uL (3.80-5.40); RDW 17.8 % (11.5-15.5)
[2017-11-10 05:57] LABS: INR 1.1 (<1.2); Partial Thromboplastin Time 27.5 sec (22.0-30.0); Prothrombin Time 10.8 sec (9.0-12.0)
[2017-11-10 05:59] LABS: Calcium 8.4 mg/dL (8.4-10.2); Magnesium 2.3 mg/dL (1.6-2.3); Potassium 4.9 mmol/L (3.5-5.1); Total Bilirubin 0.5 mg/dL (0.2-1.3); Total Protein 5.9 g/dL (6.3-8.2)
[2017-11-10] MEDS ORDERED: INSULIN ASPART 100 UNIT/ML 1 ML 10 ML VIAL SQ SCH (07:30)
[2017-11-10] MEDS: PIPERACILLIN-TAZOBACTAM 3.375 GM in DEXTROSE/WATER 1 50ML.BAG IVPB SCH ×2 (08:15→22:48)
[2017-11-10 08:16] LABS: Glucose,Whole Blood 178 mg/dL (75-99)
[2017-11-10] MEDS: DULoxetine HCL 60 MG CAPSULE.DR PO SCH (08:16)
[2017-11-10] MEDS: PANTOPRAZOLE 40 MG TABLET PO SCH (08:16)
[2017-11-10] MEDS: GABAPENTIN 300 MG CAP PO SCH ×2 (08:16→22:38)
[2017-11-10] MEDS: FERROUS SULFATE 325 MG TAB PO SCH (08:16)
[2017-11-10] MEDS: SEVELAMER 800 MG TAB PO SCH ×3 (08:16→18:01)
[2017-11-10] MEDS: DILTIAZEM ORAL 60 MG TAB PO SCH ×3 (08:16→22:59)
[2017-11-10] MEDS: AMIODARONE 100 MG TAB PO SCH (08:17)
[2017-11-10] MEDS: MAGNESIUM OXIDE 400 MG TAB PO SCH (08:17)
[2017-11-10] MEDS: LORATADINE 10 MG TAB PO SCH (08:17)
[2017-11-10] MEDS: CHOLECALCIFEROL 1,000 UNIT TAB PO SCH (08:17)
[2017-11-10] MEDS: EZETIMIBE 10 MG TAB PO SCH (08:17)
[2017-11-10] MEDS: METOPROLOL SUCCINATE (ER) 50 MG TAB.ER.24H PO SCH (08:17)
[2017-11-10] MEDS: ISOSORBIDE MONONITRATE ER 30 MG TAB.ER.24H PO SCH (08:18)
[2017-11-10] MEDS ORDERED: METOPROLOL SUCCINATE (ER) 100 MG TAB.ER.24H PO SCH (09:00)
[2017-11-10] MEDS ORDERED: CLOPIDOGREL 75 MG TAB PO SCH ×2 (09:00)
[2017-11-10] MEDS ORDERED: VANCOMYCIN 1,500 MG in SODIUM CHLORIDE 0.9% 250 ML IVPB ONE ×4 (09:00)
[2017-11-10] MEDS ORDERED: ASPIRIN 81 MG PO SCH (09:00)
--- NOTE | 2017-11-10 09:54 | P.CONS ---
History of Present Illness - Reason for Consult Consult date: 11/10/17 GI bleed Requesting physician: Nandini Venegas - History of Present Illness 72-year-old female past medical history of end-stage renal disease on dialysis T , , , atrial fibrillation, CAD triple-vessel disease high risk for bypass on conservative treatment, MT, chronic diastolic heart failure, diabetes, hypertension, hyperlipidemia admitted with fever chills electrolyte abnormalities elevated creatinine 6.2. Consult requested for GI bleed. Patient was passing several blood tinged bowel movements 2 days ago nothing yesterday. Bleeding was associated with some mild lower abdominal discomfort. No history GI bleeds. Patient thought her bleeding was secondary to hemorrhoids. CT abdomen and pelvis reported moderate colitis involving the cecum and ascending colon likely inflammatory in nature. Lactic acid yesterday increased to 6.7 from 3.6 presently 1.7. Hemoglobin on admission 11.1 presently 8.4. Average hemoglobin over the last 6 months between 8-11 range. INR 1.1. BUN 28. Creatinine 3.5. No history of bowel surgeries. No history of Crohn's or ulcerative colitis. Denies epigastric pain gross hematemesis or melena. T-max 100.1. No recent EGD. Patient's last EGD colonoscopy was December [address] Robins report not available at time of this dictation. Review of Systems Constitutional: Denies fever, chills, sweats, weight gain, or loss. Admitted with weakness. HEENT: Negative for migraines, blurred vision or loss, earaches, drainage, tinnitus, oral mucosal lesions, dysphagia, or odynophagia. CARDIAC: Negative for chest pain, arrhythmias, or palpitation. RESPIRATORY: Negative for shortness of breath, hemoptysis, cough, or sputum production. GI: See HPI for pertinent findings. : Negative for hematuria, urgency, frequency, polyuria, or dysuria. GYNc: Negative vaginal discharge. MUSCULOSKELETAL: History of chronic back pain. NEUROLOGIC: Negative for stroke or TIA. ENDOCRINE: Negative for thyroid problems. SKIN: Negative for rash or itching. PSYCHIATRIC: Negative history for depression and anxiety Past Medical History Past Medical History: Atrial Fibrillation, Coronary Artery Disease (CAD), Heart Failure, Diabetes Mellitus, GERD/Reflux, Hyperlipidemia, Hypertension, Myocardial Infarction (MT), Pneumonia, Renal Disease, Sleep Apnea/CPAP/BIPAP Additional Past Medical History / Comment(s): Morbid obesity, coronary artery disease, moderate degree of aortic stenosis, chronic atrial fibrillation paroxysmal, diabetes mellitus, hypertension, hyperlipidemia, 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 coli, chronic back pain, peripheral neuropathy, chronic anemia, fatty liver, obstructive sleep apnea maintained on BiPAP on outpatient basis, history of wounds/sore in the right foot that was healed, healed sacral decubitus ulceration and bedsores Last Myocardial Infarction Date:: 2015 History of Any Multi-Drug Resistant Organisms: MRSA Year Discovered:: 05/07/17 MDRO Source:: sputum Past Surgical History: Back Surgery, Cholecystectomy, Heart Catheterization, Heart Catheterization With Stent, Hysterectomy, Orthopedic Surgery Additional Past Surgical History / Comment(s): PCI with stents, several back surgeries-lumbar, bilateral carpal tunnel releases, bilateral cataract removals , port then fistula for hemodialysis. Past Anesthesia/Blood Transfusion Reactions: No Reported Reaction Additional Past Anesthesia/Blood Transfusion Reaction / Comm: Confusion that resolved. Date of Last Stent Placement:: 10/06/17 Past Psychological History: No Psychological Hx Reported Additional Psychological History / Comment(s): Pt's rachel resides with her. Pt is wheelchair bound. She can transfer herself into wheelchair and onto toilet. Daughter organizes her medications. She has oxygen in the house which she is currently using prn. Smoking Status: Never smoker Past Alcohol Use History: None Reported Past Drug Use History: None Reported - Past Family History Father Additional Family Medical History / Comment(s): Brain aneurysm ; age 72 Sister(s) Family Medical History: Hypertension Additional Family Medical History / Comment(s): Aortic stenosis; mitral valve disease Mother Family Medical History: AFIB, CVA/TIA, Hypertension Additional Family Medical History / Comment(s): mother age 83 Daughter(s) Family Medical History: Asthma Son(s) Family Medical History: Asthma Medications and Allergies Home Medications Medication Instructions Recorded Confirmed Type DULoxetine HCL [Cymbalta] 60 mg PO DAILY 08/04/14 11/09/17 History Fish Oil/Dha/Epa [Fish Oil 1,200 1 cap PO MOWEFR 08/04/14 11/09/17 History mg Fish Oil] Amiodarone HCl [Pacerone] 100 mg PO DAILY 11/22/15 11/09/17 History Apixaban [Eliquis] 2.5 mg PO BID 11/22/15 11/09/17 History Docusate [Colace] 100 mg PO BID 11/22/15 11/09/17 History Ezetimibe [Zetia] 10 mg PO DAILY 11/22/15 11/09/17 History Isosorbide Mononitrate ER [Imdur] 30 mg PO DAILY 11/22/15 11/09/17 History Gabapentin [Neurontin] 300 mg PO BID #60 capsule 11/27/15 11/09/17 Rx Cranberry 4200mg-Vitamin C 1 tab PO BID 12/25/16 11/09/17 History Omeprazole 20 mg PO DAILY 12/25/16 11/09/17 History Cholecalciferol (Vitamin D3) 2,000 unit PO DAILY 12/31/16 11/09/17 History [Vitamin D3] Furosemide [Lasix] 80 mg PO BID@0900,1600 tab 01/13/17 11/09/17 Rx Ferrous Sulfate [Iron (65 MG 325 mg PO DAILY 05/05/17 11/09/17 History Elemental)] Insulin Aspart [NovoLOG See Protocol SQ AC-TID 05/05/17 11/09/17 History (formulary)] Magnesium Oxide [Mag-Ox] 250 mg PO DAILY 05/05/17 11/09/17 History Metoprolol Succinate (ER) [Toprol 100 mg PO DAILY 05/05/17 11/09/17 History XL] Sevelamer [Renvela] 800 mg PO TID-W/MEALS #90 tab 05/15/17 11/09/17 Rx Insulin Aspart [NovoLOG 12 unit SQ AC-BRKFST 08/16/17 11/09/17 History (formulary)] Insulin Glargine [Lantus] 25 unit SQ BID 08/16/17 11/09/17 History Clopidogrel [Plavix] 75 mg PO DAILY #30 tab 08/21/17 11/09/17 Rx Fexofenadine HCl [Amanda Allergy] 180 mg PO DAILY 09/27/17 11/09/17 History Insulin Aspart [NovoLOG] 14 unit SQ AC-LUNCH 09/27/17 11/09/17 History Insulin Aspart [NovoLOG] 14 unit SQ AC-SUPPER 09/27/17 11/09/17 History Aspirin 81 mg PO DAILY #90 chewable 10/07/17 11/09/17 Rx Diltiazem HCl 60 mg PO TID 10/23/17 11/09/17 History Midodrine HCl [ProAmatine] 5 mg PO DAILY PRN 10/23/17 11/09/17 History Acetaminophen Tab [Tylenol Tab] 325 mg PO Q6H PRN 11/09/17 11/09/17 History Clopidogrel [Plavix] 75 mg PO DAILY 11/09/17 11/09/17 History Allergies Allergy/AdvReac Type Severity Reaction Status Date / Time KUSHAL Inhibitors Allergy Swelling Verified 11/09/17 11:07 ARB-Angiotensin Receptor Allergy Swelling Verified 11/09/17 11:07 Antagonist cephalexin monohydrate Allergy Rash/Hives Verified 11/09/17 11:07 [From Keflex] propoxyphene HCl AdvReac Hallucinati Verified 11/09/17 11:07 [From Darvon] ons Afuvevq-[id number]-Wnh Reductase AdvReac Myalgia Verified 11/09/17 11:07 Inhibitor Physical Exam Vitals: Vital Signs Temp Pulse Resp BP Pulse Ox 11/10/17 07:00 94 12 127/58 99 11/10/17 06:00 92 13 134/53 100 11/10/17 05:00 90 13 109/50 99 11/10/17 04:30 87 13 126/46 99 11/10/17 04:00 98.4 F 87 14 133/54 99 11/10/17 03:30 86 15 102/53 100 11/10/17 03:00 85 13 111/37 99 11/10/17 02:30 86 14 103/56 100 11/10/17 02:00 89 12 114/41 100 11/10/17 01:30 94 13 120/52 99 11/10/17 01:00 102 H 15 122/49 99 11/10/17 00:30 99 14 109/50 100 11/10/17 00:12 99 20 109/50 100 11/10/17 00:00 98.7 F 98 14 122/53 100 11/09/17 23:45 99 14 122/53 100 11/09/17 23:30 99 13 126/47 100 11/09/17 23:15 98 17 126/47 100 11/09/17 23:00 98 19 112/50 100 11/09/17 22:45 97 15 112/50 100 11/09/17 22:30 97 15 119/49 100 11/09/17 22:15 97 16 119/49 100 11/09/17 22:00 97 20 107/44 100 11/09/17 21:45 98 15 107/44 100 11/09/17 21:30 98 20 127/45 100 11/09/17 21:15 96 16 127/45 100 11/09/17 21:00 96 13 136/59 100 11/09/17 20:45 95 17 136/59 99 11/09/17 20:30 95 25 H 136/59 100 11/09/17 20:15 98.2 F 96 23 136/59 99 11/09/17 19:15 97.8 F 100 20 127/67 98 11/09/17 17:07 97.9 F 11/09/17 17:06 112 H 20 127/44 11/09/17 15:00 109 H 20 115/57 95 11/09/17 13:03 97 11/09/17 12:40 99 11/09/17 12:00 110 H 20 82/64 95 11/09/17 11:21 93 18 123/74 96 11/09/17 10:16 100.1 F H 104 H 16 112/66 92 L Intake and Output 11/09/17 11/10/17 11/10/17 22:59 06:59 14:59 Intake Total 200 1700 100 Output Total 10 35 5 Balance 190 1665 95 Intake: IV 200 1700 100 Sodium Chloride 0.9% 1, 200 1700 100 000 ml @ 100 mls/hr IV . Q10H STA Rx#:[id number] Output: Urine 10 35 5 Other: Voiding Method Indwelling Catheter Weight 97.7 kg 99.7 kg General appearance: The patient is alert, oriented, in no acute distress. HET: Head is normocephalic and atraumatic. Pupils are equal and reactive. Oropharynx is clear without lesions. Neck: Supple without lymphadenopathy. Trachea midline. Heart: S1 S2. Lungs: No crackles or wheezes are heard. Abdomen: Soft, nontender, nondistended with bowel sounds. No peritoneal signs. No palpable organomegaly or masses. Extremities: Normal skin color and turgor. No cyanosis, rash, ulceration, clubbing, or edema. Radial and pedal pulses are 2/4 bilaterally. Neurological: No focal deficits. Strength and sensation are grossly intact. Results CBC & Chem 7: 11/10/17 05:07 11/10/17 05:07 Labs: Abnormal Lab Results - Last 24 Hours (Table) 11/09/17 11/09/17 11/09/17 Range/Units 10:22 10:22 10:22 WBC 22.7 H (3.8-10.6) k/uL RBC 3.65 L (3.80-5.40) m/uL Hgb 11.1 L (11.4-16.0) gm/dL Hct (34.0-46.0) % MCHC 30.5 L (31.0-37.0) g/dL RDW 17.8 H (11.5-15.5) % Neutrophils # 20.5 H (1.3-7.7) k/uL Lymphocytes # 0.9 L (1.0-4.8) k/uL Sodium 135 L (137-145) mmol/L Potassium 6.8 H* (3.5-5.1) mmol/L Chloride 95 L (98-107) mmol/L Carbon Dioxide 20 L (22-30) mmol/L BUN 50 H (7-17) mg/dL Creatinine 6.24 H* (0.52-1.04) mg/dL Glucose 358 H (74-99) mg/dL POC Glucose (mg/dL) (75-99) mg/dL Plasma Lactic Acid Satinder 4.9 H* (0.7-2.0) mmol/L Calcium (8.4-10.2) mg/dL AST 47 H (14-36) U/L Alkaline Phosphatase 163 H (38-126) U/L Total Protein (6.3-8.2) g/dL Albumin (3.5-5.0) g/dL Urine Appearance (Clear) Urine Protein (Negative) Urine Ketones (Negative) Urine Blood (Negative) Urine Bilirubin (Negative) Ur Leukocyte Esterase (Negative) Ur Squamous Epith Cells (0-4) /hpf Hyaline Casts (0-2) /lpf Urine Mucus (None) /hpf 11/09/17 11/09/17 11/09/17 Range/Units 11:17 15:40 18:30 WBC 18.5 H (3.8-10.6) k/uL RBC 2.93 L (3.80-5.40) m/uL Hgb 8.8 L D (11.4-16.0) gm/dL Hct 28.7 L (34.0-46.0) % MCHC 30.7 L (31.0-37.0) g/dL RDW 17.8 H (11.5-15.5) % Neutrophils # 16.6 H (1.3-7.7) k/uL Lymphocytes # 0.7 L (1.0-4.8) k/uL Sodium (137-145) mmol/L Potassium (3.5-5.1) mmol/L Chloride (98-107) mmol/L Carbon Dioxide (22-30) mmol/L BUN (7-17) mg/dL Creatinine (0.52-1.04) mg/dL Glucose (74-99) mg/dL POC Glucose (mg/dL) (75-99) mg/dL Plasma Lactic Acid Satinder 3.6 H* (0.7-2.0) mmol/L Calcium (8.4-10.2) mg/dL AST (14-36) U/L Alkaline Phosphatase (38-126) U/L Total Protein (6.3-8.2) g/dL Albumin (3.5-5.0) g/dL Urine Appearance Cloudy H (Clear) Urine Protein 1+ H (Negative) Urine Ketones Trace H (Negative) Urine Blood Trace H (Negative) Urine Bilirubin 1+ H (Negative) Ur Leukocyte Esterase Moderate H (Negative) Ur Squamous Epith Cells 5 H (0-4) /hpf Hyaline Casts 20 H (0-2) /lpf Urine Mucus Rare H (None) /hpf 11/09/17 11/09/17 11/09/17 Range/Units 18:30 20:09 20:35 WBC (3.8-10.6) k/uL RBC (3.80-5.40) m/uL Hgb (11.4-16.0) gm/dL Hct (34.0-46.0) % MCHC (31.0-37.0) g/dL RDW (11.5-15.5) % Neutrophils # (1.3-7.7) k/uL Lymphocytes # (1.0-4.8) k/uL Sodium (137-145) mmol/L Potassium (3.5-5.1) mmol/L Chloride 96 L (98-107) mmol/L Carbon Dioxide (22-30) mmol/L BUN 18 H (7-17) mg/dL Creatinine 2.70 H (0.52-1.04) mg/dL Glucose 217 H (74-99) mg/dL POC Glucose (mg/dL) 248 H (75-99) mg/dL Plasma Lactic Acid Satinder 6.7 H* (0.7-2.0) mmol/L Calcium 7.8 L (8.4-10.2) mg/dL AST (14-36) U/L Alkaline Phosphatase (38-126) U/L Total Protein 5.7 L (6.3-8.2) g/dL Albumin 3.0 L (3.5-5.0) g/dL Urine Appearance (Clear) Urine Protein (Negative) Urine Ketones (Negative) Urine Blood (Negative) Urine Bilirubin (Negative) Ur Leukocyte Esterase (Negative) Ur Squamous Epith Cells (0-4) /hpf Hyaline Casts (0-2) /lpf Urine Mucus (None) /hpf 11/09/17 11/10/17 11/10/17 Range/Units 22:03 00:32 02:19 WBC (3.8-10.6) k/uL RBC (3.80-5.40) m/uL Hgb (11.4-16.0) gm/dL Hct (34.0-46.0) % MCHC (31.0-37.0) g/dL RDW (11.5-15.5) % Neutrophils # (1.3-7.7) k/uL Lymphocytes # (1.0-4.8) k/uL Sodium (137-145) mmol/L Potassium (3.5-5.1) mmol/L Chloride (98-107) mmol/L Carbon Dioxide (22-30) mmol/L BUN (7-17) mg/dL Creatinine (0.52-1.04) mg/dL Glucose (74-99) mg/dL POC Glucose (mg/dL) 255 H 216 H (75-99) mg/dL Plasma Lactic Acid Satinder 2.4 H* (0.7-2.0) mmol/L Calcium (8.4-10.2) mg/dL AST (14-36) U/L Alkaline Phosphatase (38-126) U/L Total Protein (6.3-8.2) g/dL Albumin (3.5-5.0) g/dL Urine Appearance (Clear) Urine Protein (Negative) Urine Ketones (Negative) Urine Blood (Negative) Urine Bilirubin (Negative) Ur Leukocyte Esterase (Negative) Ur Squamous Epith Cells (0-4) /hpf Hyaline Casts (0-2) /lpf Urine Mucus (None) /hpf 11/10/17 11/10/17 11/10/17 Range/Units 05:07 05:07 08:14 WBC 13.0 H (3.8-10.6) k/uL RBC 2.76 L (3.80-5.40) m/uL Hgb 8.4 L (11.4-16.0) gm/dL Hct 27.2 L (34.0-46.0) % MCHC 30.8 L (31.0-37.0) g/dL RDW 17.8 H (11.5-15.5) % Neutrophils # 10.7 H (1.3-7.7) k/uL Lymphocytes # (1.0-4.8) k/uL Sodium 135 L (137-145) mmol/L Potassium (3.5-5.1) mmol/L Chloride 97 L (98-107) mmol/L Carbon Dioxide (22-30) mmol/L BUN 28 H (7-17) mg/dL Creatinine 3.50 H (0.52-1.04) mg/dL Glucose 154 H (74-99) mg/dL POC Glucose (mg/dL) 178 H (75-99) mg/dL Plasma Lactic Acid Satinder (0.7-2.0) mmol/L Calcium (8.4-10.2) mg/dL AST (14-36) U/L Alkaline Phosphatase (38-126) U/L Total Protein 5.9 L (6.3-8.2) g/dL Albumin 3.0 L (3.5-5.0) g/dL Urine Appearance (Clear) Urine Protein (Negative) Urine Ketones (Negative) Urine Blood (Negative) Urine Bilirubin (Negative) Ur Leukocyte Esterase (Negative) Ur Squamous Epith Cells (0-4) /hpf Hyaline Casts (0-2) /lpf Urine Mucus (None) /hpf Microbiology - Last 24 Hours (Table) 11/09/17 11:17 Urine Culture - Preliminary Urine,Catheterized CT scan - abdomen: report reviewed (Dr. Vieyra) Assessment and Plan (1) GI bleed Narrative/Plan: 72-year-old female admitted with electrolyte disturbances dehydration new onset of rectal bleeding with lower abdominal discomfort CT reported right-sided colonic inflammatory changes with elevated lactic acid since improved with hydration suspect ischemic colitis self-limiting infectious colitis cannot be entirely excluded. Current Visit: Yes Status: Acute Code(s): K92.2 - GASTROINTESTINAL HEMORRHAGE, UNSPECIFIED SNOMED Code(s): 13516779 (2) Anemia Narrative/Plan: Acute on chronic component of acute blood loss multifactorial underlying end- stage renal disease. Current Visit: Yes Status: Acute Code(s): D64.9 - ANEMIA, UNSPECIFIED SNOMED Code(s): 792931340 Plan: 1. EGD/colonoscopy 12/2010; will review report. Presently she is not actively bleeding no further bloody bowel movements 24 hours. Dialysis tomorrow. Continue with light diet CBC monitoring antibiotics. Will consider inpatient colonoscopy per clinical course. We'll follow closely with you. Thank you for this kind referral and the opportunity to participate in the care of your patient. This consultation was discussed with Dr. Vieyra. The impression and plan of care have been directed as dictated.
--- NOTE | 2017-11-10 09:59 | XR ---
EXAMINATION TYPE: XR chest 1V DATE OF EXAM: 11/10/2017 COMPARISON: Prior chest x-ray 11/09/2017 HISTORY: Heart failure TECHNIQUE: Single frontal view of the chest is obtained. FINDINGS: Patient is rotated. Lung volumes are low. Cardiac mediastinal silhouette, pulmonary vascul arity and greg show a similar appearance. Interstitium may be mildly increased. No pneumothorax or pl eural effusion evident. IMPRESSION: Rotated expiratory exam. There is no significant change. Suspect some basilar atelectasi s. Cardiomegaly. Correlate for possible mild interstitial edema. Follow-up recommended.
--- NOTE | 2017-11-10 10:47 | P.CONS ---
History of Present Illness - Reason for Consult Consult date: 11/10/17 Fever - History of Present Illness This is a 72-year-old female known to ID service as she was treated for a MRSA soft tissue skin infection approximately 6 years ago. She most recently was seen in November 2016 at which time she was treated for acute respiratory failure secondary to acute on chronic diastolic heart failure COPD exacerbation and moderate aortic stenosis. Patient is known to have end-stage renal disease on dialysis Monday. She states she received her Monday therapy and also was given additional treatment on Monday. Patient states that she was sleeping when she woke up in the morning her daughter lives with her woke her up and found that she had vomited into her CPAP mask and patient was also very lethargic weak and fatigued. She apparently had some fevers at home she was complaining of some mild shortness of breath. Also her blood sugars have been running high at home. She denies any cough or sputum production. She denies any diarrhea or constipation. She denies any blood in her stools. Her last bowel movement was yesterday. She states when she was up her daughter tried to help her to the bathroom but because she was so weak she had to wait until her son was there and able to lift her onto the toilet. Regarding abdominal pain, she states she did not realize she had any until EMS moved her onto a gurney and she noted right lower quadrant pain. Her blood sugars have been running high at home. Patient was then brought into [facility] emergency center for evaluation where she was found to have temperature 100.1, white count of 22.7. Potassium was 6.8 and she is status post Kayexalate, BUN 50, creatinine 6.25. Initial lactic acid was 4.9 and repeat is down to 1.7 as of this morning. Her urinalysis was cloudy, leukoesterase moderate and squamous cells 5. Patient states she only voids about 1 time every 2-3 days. She denies having any known pain with urination. She currently has a Levy catheter in place. Chest x-ray showed minimal basilar atelectasis suspected. Dr. Botello was contacted and patient was given hemodialysis in the emergency center and did have hypotension requiring IV fluid bolus of 1500 cc. Patient was admitted into the intensive care unit. She has not required vasopressors. No plan for dialysis today. She does have a recent history of myocardial infarction stent placement in September. Patient was noted to have a drop in her hemoglobin initially 11.1 and now 8.4 for which GI has been consult it. There is no plan for any intervention at this time. Her CAT scan of the abdomen and pelvis with contrast showed moderate marked colitis in the cecum and the ascending colon likely inflammatory. Patient has been on Zosyn and vancomycin. Note the patient is also on amiodarone. Potassium is improved this morning of 4.9. Patient has been started on a clear liquid diet this morning for breakfast and is tolerating this. She denies any further episodes of nausea or vomiting. She states she has a little appetite. Patient has chronic back pain status post multiple back surgeries for which she is now essentially wheelchair bound due to frequent falls. She is able to transfer herself. Patient has not had any recent falls. Review of Systems All systems: negative Constitutional: Reports fatigue, Reports fever, Reports lethargy, Reports malaise, Reports poor appetite, Reports weakness, Denies chills, Denies weight loss Eyes: denies blurred vision, denies pain Ears, nose, mouth and throat: Denies dysphagia, Denies headache, Denies mouth pain, Denies sore throat, Denies vertigo Cardiovascular: Denies chest pain, Denies leg edema, Denies lightheadedness, Denies shortness of breath, Denies syncope Respiratory: Reports sleep apnea, Denies cough, Denies cough with sputum, Denies dyspnea, Denies excessive sputum, Denies hemoptysis, Denies home oxygen, Denies wheezing Gastrointestinal: Reports abdominal pain, Reports vomiting, Denies diarrhea, Denies nausea Genitourinary: Denies dysuria, Denies hematuria, Denies urgency Musculoskeletal: Reports gait dysfunction, Reports muscle weakness, Denies frequent falls, Denies myalgias Integumentary: Denies pruritus, Denies rash Neurological: Reports change in mentation, Reports confusion, Reports gait dysfunction, Denies numbness, Denies syncope, Denies weakness Psychiatric: Denies anxiety, Denies depression Endocrine: Denies fatigue, Denies weight change Past Medical History Past Medical History: Atrial Fibrillation, Coronary Artery Disease (CAD), Heart Failure, Diabetes Mellitus, GERD/Reflux, Hyperlipidemia, Hypertension, Myocardial Infarction ([place]), Pneumonia, Renal Disease, Sleep Apnea/CPAP/BIPAP Additional Past Medical History / Comment(s): Morbid obesity, coronary artery disease, moderate degree of aortic stenosis, chronic atrial fibrillation paroxysmal, diabetes mellitus, hypertension, hyperlipidemia, 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 coli, chronic back pain, peripheral neuropathy, chronic anemia, fatty liver, obstructive sleep apnea maintained on BiPAP on outpatient basis, history of wounds/sore in the right foot that was healed, healed sacral decubitus ulceration and bedsores Last Myocardial Infarction Date:: 2015 History of Any Multi-Drug Resistant Organisms: MRSA Year Discovered:: 05/07/17 MDRO Source:: sputum Past Surgical History: Back Surgery, Cholecystectomy, Heart Catheterization, Heart Catheterization With Stent, Hysterectomy, Orthopedic Surgery Additional Past Surgical History / Comment(s): PCI with stents, several back surgeries-lumbar, bilateral carpal tunnel releases, bilateral cataract removals , port then fistula for hemodialysis. Past Anesthesia/Blood Transfusion Reactions: No Reported Reaction Additional Past Anesthesia/Blood Transfusion Reaction / Comm: Confusion that resolved. Date of Last Stent Placement:: 10/06/17 Past Psychological History: No Psychological Hx Reported Additional Psychological History / Comment(s): Pt's rachel resides with her. Pt is wheelchair bound. She can transfer herself into wheelchair and onto toilet. Daughter organizes her medications. She has oxygen in the house which she is currently using prn. Smoking Status: Never smoker Past Alcohol Use History: None Reported Additional Past Alcohol Use History / Comment(s): Patient had exposure to secondhand smoke with her . Past Drug Use History: None Reported - Past Family History Father Additional Family Medical History / Comment(s): Brain aneurysm ; age 72 Sister(s) Family Medical History: Hypertension Additional Family Medical History / Comment(s): Aortic stenosis; mitral valve disease Mother Family Medical History: AFIB, CVA/TIA, Hypertension Additional Family Medical History / Comment(s): mother age 83 Daughter(s) Family Medical History: Asthma Son(s) Family Medical History: Asthma Medications and Allergies Home Medications Medication Instructions Recorded Confirmed Type DULoxetine HCL [Cymbalta] 60 mg PO DAILY 08/04/14 11/09/17 History Fish Oil/Dha/Epa [Fish Oil 1,200 1 cap PO MOWEFR 08/04/14 11/09/17 History mg Fish Oil] Amiodarone HCl [Pacerone] 100 mg PO DAILY 11/22/15 11/09/17 History Apixaban [Eliquis] 2.5 mg PO BID 11/22/15 11/09/17 History Docusate [Colace] 100 mg PO BID 11/22/15 11/09/17 History Ezetimibe [Zetia] 10 mg PO DAILY 11/22/15 11/09/17 History Isosorbide Mononitrate ER [Imdur] 30 mg PO DAILY 11/22/15 11/09/17 History Gabapentin [Neurontin] 300 mg PO BID #60 capsule 11/27/15 11/09/17 Rx Cranberry 4200mg-Vitamin C 1 tab PO BID 12/25/16 11/09/17 History Omeprazole 20 mg PO DAILY 12/25/16 11/09/17 History Cholecalciferol (Vitamin D3) 2,000 unit PO DAILY 12/31/16 11/09/17 History [Vitamin D3] Furosemide [Lasix] 80 mg PO BID@0900,1600 tab 01/13/17 11/09/17 Rx Ferrous Sulfate [Iron (65 MG 325 mg PO DAILY 05/05/17 11/09/17 History Elemental)] Insulin Aspart [NovoLOG See Protocol SQ AC-TID 05/05/17 11/09/17 History (formulary)] Magnesium Oxide [Mag-Ox] 250 mg PO DAILY 05/05/17 11/09/17 History Metoprolol Succinate (ER) [Toprol 100 mg PO DAILY 05/05/17 11/09/17 History XL] Sevelamer [Renvela] 800 mg PO TID-W/MEALS #90 tab 05/15/17 11/09/17 Rx Insulin Aspart [NovoLOG 12 unit SQ AC-BRKFST 08/16/17 11/09/17 History (formulary)] Insulin Glargine [Lantus] 25 unit SQ BID 08/16/17 11/09/17 History Clopidogrel [Plavix] 75 mg PO DAILY #30 tab 08/21/17 11/09/17 Rx Fexofenadine HCl [Amanda Allergy] 180 mg PO DAILY 09/27/17 11/09/17 History Insulin Aspart [NovoLOG] 14 unit SQ AC-LUNCH 09/27/17 11/09/17 History Insulin Aspart [NovoLOG] 14 unit SQ AC-SUPPER 09/27/17 11/09/17 History Aspirin 81 mg PO DAILY #90 chewable 10/07/17 11/09/17 Rx Diltiazem HCl 60 mg PO TID 10/23/17 11/09/17 History Midodrine HCl [ProAmatine] 5 mg PO DAILY PRN 10/23/17 11/09/17 History Acetaminophen Tab [Tylenol Tab] 325 mg PO Q6H PRN 11/09/17 11/09/17 History Clopidogrel [Plavix] 75 mg PO DAILY 11/09/17 11/09/17 History Allergies Allergy/AdvReac Type Severity Reaction Status Date / Time KUSHAL Inhibitors Allergy Swelling Verified 11/09/17 11:07 ARB-Angiotensin Receptor Allergy Swelling Verified 11/09/17 11:07 Antagonist cephalexin monohydrate Allergy Rash/Hives Verified 11/09/17 11:07 [From Keflex] propoxyphene HCl AdvReac Hallucinati Verified 11/09/17 11:07 [From Darvon] ons Przthel-Dmc-Crz Reductase AdvReac Myalgia Verified 11/09/17 11:07 Inhibitor Physical Exam Vitals: Vital Signs Temp Pulse Resp BP Pulse Ox 11/10/17 07:00 94 12 127/58 99 11/10/17 06:00 92 13 134/53 100 11/10/17 05:00 90 13 109/50 99 11/10/17 04:30 87 13 126/46 99 11/10/17 04:00 98.4 F 87 14 133/54 99 11/10/17 03:30 86 15 102/53 100 11/10/17 03:00 85 13 111/37 99 11/10/17 02:30 86 14 103/56 100 11/10/17 02:00 89 12 114/41 100 11/10/17 01:30 94 13 120/52 99 11/10/17 01:00 102 H 15 122/49 99 11/10/17 00:30 99 14 109/50 100 11/10/17 00:12 99 20 109/50 100 11/10/17 00:00 98.7 F 98 14 122/53 100 11/09/17 23:45 99 14 122/53 100 11/09/17 23:30 99 13 126/47 100 11/09/17 23:15 98 17 126/47 100 11/09/17 23:00 98 19 112/50 100 11/09/17 22:45 97 15 112/50 100 11/09/17 22:30 97 15 119/49 100 11/09/17 22:15 97 16 119/49 100 11/09/17 22:00 97 20 107/44 100 11/09/17 21:45 98 15 107/44 100 11/09/17 21:30 98 20 127/45 100 11/09/17 21:15 96 16 127/45 100 11/09/17 21:00 96 13 136/59 100 11/09/17 20:45 95 17 136/59 99 11/09/17 20:30 95 25 H 136/59 100 11/09/17 20:15 98.2 F 96 23 136/59 99 11/09/17 19:15 97.8 F 100 20 127/67 98 11/09/17 17:07 97.9 F 11/09/17 17:06 112 H 20 127/44 11/09/17 15:00 109 H 20 115/57 95 11/09/17 13:03 97 11/09/17 12:40 99 11/09/17 12:00 110 H 20 82/64 95 11/09/17 11:21 93 18 123/74 96 11/09/17 10:16 100.1 F H 104 H 16 112/66 92 L Intake and Output 11/09/17 11/10/17 11/10/17 22:59 06:59 14:59 Intake Total 200 1700 100 Output Total 10 35 5 Balance 190 1665 95 Intake: IV 200 1700 100 Sodium Chloride 0.9% 1, 200 1700 100 000 ml @ 100 mls/hr IV . Q10H STA Rx#:[id number] Output: Urine 10 35 5 Other: Voiding Method Indwelling Catheter Weight 97.7 kg 99.7 kg Gen: This is a 72-year-old female. She is seen in the ICU. She is in bed and appears to be comfortable. Patient appears to be in no acute distress. HEENT: Head is atraumatic, normocephalic. Pupils equal, round. Sclerae is anicteric. NECK: Supple. No JVD. No lymphadenopathy. No thyromegaly. LUNGS: Clear to auscultation. No wheezes or rhonchi. No intercostal retractions. HEART: Regular rate and rhythm. No murmur. ABDOMEN: Soft. Bowel sounds are present. No masses. Right lower quadrant tenderness. EXTREMITIES: No pedal edema. No calf tenderness. NEUROLOGICAL: Patient is awake, alert and oriented x3. Cranial nerves 2 through 12 are grossly intact. Generalized weakness noted to the lower extremities bilaterally. Hand erp developer the upper extremities are strong. Results Results: Laboratory Results WBC 13.0 k/uL (3.8-10.6) H 11/10/17 05:07 RBC 2.76 m/uL (3.80-5.40) L 11/10/17 05:07 Hgb 8.4 gm/dL (11.4-16.0) L 11/10/17 05:07 Hct 27.2 % (34.0-46.0) L 11/10/17 05:07 MCV 98.6 fL (80.0-100.0) 11/10/17 05:07 MCH 30.4 pg (25.0-35.0) 11/10/17 05:07 MCHC 30.8 g/dL (31.0-37.0) L 11/10/17 05:07 RDW 17.8 % (11.5-15.5) H 11/10/17 05:07 Plt Count 186 k/uL (150-450) 11/10/17 05:07 Neutrophils % 82 % 11/10/17 05:07 Lymphocytes % 10 % 11/10/17 05:07 Monocytes % 6 % 11/10/17 05:07 Eosinophils % 1 % 11/10/17 05:07 Basophils % 0 % 11/10/17 05:07 Neutrophils # 10.7 k/uL (1.3-7.7) H 11/10/17 05:07 Lymphocytes # 1.3 k/uL (1.0-4.8) 11/10/17 05:07 Monocytes # 0.8 k/uL (0-1.0) 11/10/17 05:07 Eosinophils # 0.1 k/uL (0-0.7) 11/10/17 05:07 Basophils # 0.0 k/uL (0-0.2) 11/10/17 05:07 Hypochromasia Moderate 11/10/17 05:07 Anisocytosis Slight 11/10/17 05:07 Macrocytosis Slight 11/10/17 05:07 PT 10.8 sec (9.0-12.0) 11/10/17 05:07 INR 1.1 (<1.2) 11/10/17 05:07 APTT 27.5 sec (22.0-30.0) 11/10/17 05:07 Sodium 135 mmol/L (137-145) L 11/10/17 05:07 Potassium 4.9 mmol/L (3.5-5.1) 11/10/17 05:07 Chloride 97 mmol/L (98-107) L 11/10/17 05:07 Carbon Dioxide 29 mmol/L (22-30) 11/10/17 05:07 Anion Gap 9 mmol/L 11/10/17 05:07 BUN 28 mg/dL (7-17) H 11/10/17 05:07 Creatinine 3.50 mg/dL (0.52-1.04) H 11/10/17 05:07 Est GFR (CKD-EPI)AfAm 14 (>60 ml/min/1.73 sqM) 11/10/17 05:07 Est GFR (CKD-EPI)NonAf 12 (>60 ml/min/1.73 sqM) 11/10/17 05:07 Glucose 154 mg/dL (74-99) H 11/10/17 05:07 POC Glucose (mg/dL) 178 mg/dL (75-99) H 11/10/17 08:14 POC Glu Monkey Trainer ID Garrett Braga 11/10/17 08:14 Lactic Ac Sepsis Rflx Y 11/09/17 21:15 Plasma Lactic Acid Satinder 1.7 mmol/L (0.7-2.0) 11/10/17 05:07 Calcium 8.4 mg/dL (8.4-10.2) 11/10/17 05:07 Magnesium 2.3 mg/dL (1.6-2.3) 11/10/17 05:07 Total Bilirubin 0.5 mg/dL (0.2-1.3) 11/10/17 05:07 AST 24 U/L (14-36) 11/10/17 05:07 ALT 33 U/L (9-52) 11/10/17 05:07 Alkaline Phosphatase 106 U/L (38-126) 11/10/17 05:07 Total Creatine Kinase 35 U/L (30-135) 11/09/17 10:22 CK-MB (CK-2) <0.2 ng/mL (0.0-2.4) 11/09/17 10:22 CK-MB (CK-2) Rel Index 11/09/17 10:22 Troponin I <0.012 ng/mL (0.000-0.034) 11/09/17 10:22 Total Protein 5.9 g/dL (6.3-8.2) L 11/10/17 05:07 Albumin 3.0 g/dL (3.5-5.0) L 11/10/17 05:07 Urine Color Yellow 11/09/17 11:17 Urine Appearance Cloudy (Clear) H 11/09/17 11:17 Urine pH 5.0 (5.0-8.0) 11/09/17 11:17 Ur Specific [place] 1.020 (1.001-1.035) 11/09/17 11:17 Urine Protein 1+ (Negative) H 11/09/17 11:17 Urine Glucose (UA) Negative (Negative) 11/09/17 11:17 Urine Ketones Trace (Negative) H 11/09/17 11:17 Urine Blood Trace (Negative) H 11/09/17 11:17 Urine Nitrite Negative (Negative) 11/09/17 11:17 Urine Bilirubin 1+ (Negative) H 11/09/17 11:17 Urine Urobilinogen 3.0 mg/dL (<2.0) 11/09/17 11:17 Ur Leukocyte Esterase Moderate (Negative) H 11/09/17 11:17 Urine RBC 1 /hpf (0-5) 11/09/17 11:17 Urine WBC 5 /hpf (0-5) 11/09/17 11:17 Ur Squamous Epith Cells 5 /hpf (0-4) H 11/09/17 11:17 Hyaline Casts 20 /lpf (0-2) H 11/09/17 11:17 Urine Mucus Rare /hpf (None) H 11/09/17 11:17 CBC & Chem 7: 11/10/17 05:07 11/10/17 05:07 Labs: Abnormal Lab Results - Last 24 Hours (Table) 11/09/17 11/09/17 11/09/17 Range/Units 10:22 10:22 10:22 WBC 22.7 H (3.8-10.6) k/uL RBC 3.65 L (3.80-5.40) m/uL Hgb 11.1 L (11.4-16.0) gm/dL Hct (34.0-46.0) % MCHC 30.5 L (31.0-37.0) g/dL RDW 17.8 H (11.5-15.5) % Neutrophils # 20.5 H (1.3-7.7) k/uL Lymphocytes # 0.9 L (1.0-4.8) k/uL Sodium 135 L (137-145) mmol/L Potassium 6.8 H* (3.5-5.1) mmol/L Chloride 95 L (98-107) mmol/L Carbon Dioxide 20 L (22-30) mmol/L BUN 50 H (7-17) mg/dL Creatinine 6.24 H* (0.52-1.04) mg/dL Glucose 358 H (74-99) mg/dL POC Glucose (mg/dL) (75-99) mg/dL Plasma Lactic Acid Satinder 4.9 H* (0.7-2.0) mmol/L Calcium (8.4-10.2) mg/dL AST 47 H (14-36) U/L Alkaline Phosphatase 163 H (38-126) U/L Total Protein (6.3-8.2) g/dL Albumin (3.5-5.0) g/dL Urine Appearance (Clear) Urine Protein (Negative) Urine Ketones (Negative) Urine Blood (Negative) Urine Bilirubin (Negative) Ur Leukocyte Esterase (Negative) Ur Squamous Epith Cells (0-4) /hpf Hyaline Casts (0-2) /lpf Urine Mucus (None) /hpf 11/09/17 11/09/17 11/09/17 Range/Units 11:17 15:40 18:30 WBC 18.5 H (3.8-10.6) k/uL RBC 2.93 L (3.80-5.40) m/uL Hgb 8.8 L D (11.4-16.0) gm/dL Hct 28.7 L (34.0-46.0) % MCHC 30.7 L (31.0-37.0) g/dL RDW 17.8 H (11.5-15.5) % Neutrophils # 16.6 H (1.3-7.7) k/uL Lymphocytes # 0.7 L (1.0-4.8) k/uL Sodium (137-145) mmol/L Potassium (3.5-5.1) mmol/L Chloride (98-107) mmol/L Carbon Dioxide (22-30) mmol/L BUN (7-17) mg/dL Creatinine (0.52-1.04) mg/dL Glucose (74-99) mg/dL POC Glucose (mg/dL) (75-99) mg/dL Plasma Lactic Acid Satinder 3.6 H* (0.7-2.0) mmol/L Calcium (8.4-10.2) mg/dL AST (14-36) U/L Alkaline Phosphatase (38-126) U/L Total Protein (6.3-8.2) g/dL Albumin (3.5-5.0) g/dL Urine Appearance Cloudy H (Clear) Urine Protein 1+ H (Negative) Urine Ketones Trace H (Negative) Urine Blood Trace H (Negative) Urine Bilirubin 1+ H (Negative) Ur Leukocyte Esterase Moderate H (Negative) Ur Squamous Epith Cells 5 H (0-4) /hpf Hyaline Casts 20 H (0-2) /lpf Urine Mucus Rare H (None) /hpf 11/09/17 11/09/17 11/09/17 Range/Units 18:30 20:09 20:35 WBC (3.8-10.6) k/uL RBC (3.80-5.40) m/uL Hgb (11.4-16.0) gm/dL Hct (34.0-46.0) % MCHC (31.0-37.0) g/dL RDW (11.5-15.5) % Neutrophils # (1.3-7.7) k/uL Lymphocytes # (1.0-4.8) k/uL Sodium (137-145) mmol/L Potassium (3.5-5.1) mmol/L Chloride 96 L (98-107) mmol/L Carbon Dioxide (22-30) mmol/L BUN 18 H (7-17) mg/dL Creatinine 2.70 H (0.52-1.04) mg/dL Glucose 217 H (74-99) mg/dL POC Glucose (mg/dL) 248 H (75-99) mg/dL Plasma Lactic Acid Satinder 6.7 H* (0.7-2.0) mmol/L Calcium 7.8 L (8.4-10.2) mg/dL AST (14-36) U/L Alkaline Phosphatase (38-126) U/L Total Protein 5.7 L (6.3-8.2) g/dL Albumin 3.0 L (3.5-5.0) g/dL Urine Appearance (Clear) Urine Protein (Negative) Urine Ketones (Negative) Urine Blood (Negative) Urine Bilirubin (Negative) Ur Leukocyte Esterase (Negative) Ur Squamous Epith Cells (0-4) /hpf Hyaline Casts (0-2) /lpf Urine Mucus (None) /hpf 11/09/17 11/10/17 11/10/17 Range/Units 22:03 00:32 02:19 WBC (3.8-10.6) k/uL RBC (3.80-5.40) m/uL Hgb (11.4-16.0) gm/dL Hct (34.0-46.0) % MCHC (31.0-37.0) g/dL RDW (11.5-15.5) % Neutrophils # (1.3-7.7) k/uL Lymphocytes # (1.0-4.8) k/uL Sodium (137-145) mmol/L Potassium (3.5-5.1) mmol/L Chloride (98-107) mmol/L Carbon Dioxide (22-30) mmol/L BUN (7-17) mg/dL Creatinine (0.52-1.04) mg/dL Glucose (74-99) mg/dL POC Glucose (mg/dL) 255 H 216 H (75-99) mg/dL Plasma Lactic Acid Satinder 2.4 H* (0.7-2.0) mmol/L Calcium (8.4-10.2) mg/dL AST (14-36) U/L Alkaline Phosphatase (38-126) U/L Total Protein (6.3-8.2) g/dL Albumin (3.5-5.0) g/dL Urine Appearance (Clear) Urine Protein (Negative) Urine Ketones (Negative) Urine Blood (Negative) Urine Bilirubin (Negative) Ur Leukocyte Esterase (Negative) Ur Squamous Epith Cells (0-4) /hpf Hyaline Casts (0-2) /lpf Urine Mucus (None) /hpf 11/10/17 11/10/17 11/10/17 Range/Units 05:07 05:07 08:14 WBC 13.0 H (3.8-10.6) k/uL RBC 2.76 L (3.80-5.40) m/uL Hgb 8.4 L (11.4-16.0) gm/dL Hct 27.2 L (34.0-46.0) % MCHC 30.8 L (31.0-37.0) g/dL RDW 17.8 H (11.5-15.5) % Neutrophils # 10.7 H (1.3-7.7) k/uL Lymphocytes # (1.0-4.8) k/uL Sodium 135 L (137-145) mmol/L Potassium (3.5-5.1) mmol/L Chloride 97 L (98-107) mmol/L Carbon Dioxide (22-30) mmol/L BUN 28 H (7-17) mg/dL Creatinine 3.50 H (0.52-1.04) mg/dL Glucose 154 H (74-99) mg/dL POC Glucose (mg/dL) 178 H (75-99) mg/dL Plasma Lactic Acid Satinder (0.7-2.0) mmol/L Calcium (8.4-10.2) mg/dL AST (14-36) U/L Alkaline Phosphatase (38-126) U/L Total Protein 5.9 L (6.3-8.2) g/dL Albumin 3.0 L (3.5-5.0) g/dL Urine Appearance (Clear) Urine Protein (Negative) Urine Ketones (Negative) Urine Blood (Negative) Urine Bilirubin (Negative) Ur Leukocyte Esterase (Negative) Ur Squamous Epith Cells (0-4) /hpf Hyaline Casts (0-2) /lpf Urine Mucus (None) /hpf Microbiology - Last 24 Hours (Table) 11/09/17 11:17 Urine Culture - Preliminary Urine,Catheterized Assessment and Plan Plan: This is a 72-year-old female patient well-known to ID service who presents with signs of sepsis, metabolic encephalopathy secondary to colitis, acute hyperkalemia. Patient is currently on Zosyn and vancomycin. Patient does have history of MRSA. Continue supportive care. Further recommendations as patient progresses. The above dictated assessment and findings were discussed with Dr. Locke. The impression and plan of care have been directed as dictated. Jessenia Gonzalez nurse practitioner acting as scribe for Dr. Locke.
[2017-11-10] MEDS ORDERED: NON-FORMULARY DRUG (Fish Oil/Dha/Epa [Fish Oil 1,200 Mg Fish Oil] 1 CAP) PO SCH (11:54)
[2017-11-10 12:04] LABS: Glucose,Whole Blood 196 mg/dL (75-99)
[2017-11-10] MEDS ORDERED: SODIUM CHLORIDE 0.9% 500 ML IV ONE (12:25)
--- NOTE | 2017-11-10 12:45 | P.PN ---
Subjective Progress Note Date: 11/10/17 It is a 72-year-old female patient with end-stage renal disease currently on hemodialysis for an AV fistula in the left upper extremity was coming in with acute lethargy, weakness, fevers, chills, tachycardia and fatigue. The patient was suspected to be septic and she came in to the [facility] department. The daughter is noted the patient's blood sugars have been running high recently which could be another signs of an underlying infection/sepsis. The patient denied having any cough or sputum production. No pleurisy. No chest pain. No sore throat. No headaches. No neck stiffness. No dysuria frequency urgency. She has had previous urine checked infections with E. coli none of them being resistant microorganism. She has no open wounds or sores. She has some dry scabs in her lower extremities bilaterally yet there is no evidence of any cellulitis or soft tissue infection. No nausea. No vomiting. No diarrhea. She used to have a permacath in the past that was removed and currently she is using a fistula in the left upper extremity. Her white cell count is 22. Her hemoglobin is at 11.1. Her potassium level is at 6.8 and the patient is undergoing dialysis currently the [facility] department awaiting to be transferred to the ICU. She did have some lower blood pressure with a systolic in the mid 80s and she was given a 500 mL of bolus with dialysis. I asked him to give another liter bolus and dialysis. Her lactic acid level is at 4.9. She is receiving a 2K dialysis in regards to her hyperkalemia. On 11/10/2017, the patient is in the intensive care unit and she is being seen in follow-up. She is better compared to yesterday. She is afebrile hemodynamically stable. On and off she was having some lower blood pressure with a systolic blood pressure drop in the mid 80s. Her lactic acid level came up to 6.7 and based on that she was given additional liter of bolus and antibiotics was continued with a combination of Zosyn and vancomycin. On today' s evaluation, she is hemodynamically stable on no pressors. Nephrology saw the patient got IV fluids to KVO. She is afebrile. The patient had broad-spectrum antibiotics and the patient had cultures sent and the results are still pending for now. No positive cultures have been yielded yet. Meanwhile, the patient was treated for her hyperkalemia and she underwent dialysis yesterday and the follow-up potassium level is down to 4.9. CAT scan of the abdomen showed some nonspecific colitis involving the cecum and ascending colon which is probably inflammatory in nature. The patient does not have any significant abdominal pain. No nausea. No vomiting. No diarrhea. No previous history of any colitis being at infectious or C. diff colitis. No other complaints otherwise for now. She is resting comfortably in bed. No dialysis for today. Objective - Vital Signs Vital signs: Vital Signs Temp 98.6 F 11/10/17 12:00 Pulse 75 11/10/17 12:15 Resp 14 11/10/17 12:15 BP 96/37 11/10/17 12:15 Pulse Ox 99 11/10/17 12:15 Intake & Output 11/09/17 11/10/17 11/10/17 18:59 06:59 18:59 Intake Total 1900 695.0 Output Total 45 5 Balance 1855 690.0 Weight 92.533 kg 99.7 kg Intake: IV 1900 220 Sodium Chloride 0.9% 1, 1900 220 000 ml @ 100 mls/hr IV . Q10H STA Rx#:[id number] Intake, IV Titration 275.0 Amount Piperacillin-Tazobactam 3 12.5 .375 gm In Dextrose/Water 1 50ml.bag @ 12.5 mls/hr IVPB ONCE STA Rx#: [id number] Sodium Chloride 0.9% 1, 12.5 000 ml @ 999 mls/hr IV . Q1H1M ONE Rx#:[id number] Vancomycin 1,500 mg In 250 Sodium Chloride 0.9% 250 ml @ 125 mls/hr IVPB ONCE ONE Rx#:[id number] Oral 200 Output: Urine 45 5 Other: Voiding Method Indwelling Catheter Indwelling Catheter - Exam Gen. appearance the patient is obese somewhat lethargic yet arousable and she was able to recognize myself. She denies having any acute respiratory distress and she is resting comfortably in bed as she is undergoing Hemodialysis. Head exam was generally normal. There was no scleral icterus or corneal arcus. Mucous membranes were moist. Neck was supple and without jugular venous distension, thyromegaly, or carotid bruits. Carotids were easily palpable bilaterally. There was no adenopathy. Lungs sounds are diminished bilaterally at it is clear and there is no wheezes or rhonchi or any crackles. Heart sounds are irregular, positive S1-S2 and there is a systolic ejection murmur grade 3/6 heard throughout the precordium. Abdominal exam revealed normal bowel sounds. The abdomen was soft, non-tender, and without masses, organomegaly, or appreciable enlargement of the abdominal aorta. Examination of the extremities revealed easily palpable radial, femoral and pedal pulses. There was no cyanosis, clubbing or edema. Examination of the skin revealed no evidence of significant rashes, suspicious appearing nevi or other concerning lesions. Neurologically the patient is awake and alert and there is no focal logical deficits Psychiatrically intact - Labs CBC & Chem 7: 11/10/17 05:07 11/10/17 05:07 Labs: Abnormal Lab Results - Last 24 Hours (Table) 11/09/17 11/09/17 11/09/17 Range/Units 15:40 18:30 18:30 WBC 18.5 H (3.8-10.6) k/uL RBC 2.93 L (3.80-5.40) m/uL Hgb 8.8 L D (11.4-16.0) gm/dL Hct 28.7 L (34.0-46.0) % MCHC 30.7 L (31.0-37.0) g/dL RDW 17.8 H (11.5-15.5) % Neutrophils # 16.6 H (1.3-7.7) k/uL Lymphocytes # 0.7 L (1.0-4.8) k/uL Sodium (137-145) mmol/L Chloride 96 L (98-107) mmol/L BUN 18 H (7-17) mg/dL Creatinine 2.70 H (0.52-1.04) mg/dL Glucose 217 H (74-99) mg/dL POC Glucose (mg/dL) (75-99) mg/dL Plasma Lactic Acid Satinder 3.6 H* (0.7-2.0) mmol/L Calcium 7.8 L (8.4-10.2) mg/dL Total Protein 5.7 L (6.3-8.2) g/dL Albumin 3.0 L (3.5-5.0) g/dL 11/09/17 11/09/17 11/09/17 Range/Units 20:09 20:35 22:03 WBC (3.8-10.6) k/uL RBC (3.80-5.40) m/uL Hgb (11.4-16.0) gm/dL Hct (34.0-46.0) % MCHC (31.0-37.0) g/dL RDW (11.5-15.5) % Neutrophils # (1.3-7.7) k/uL Lymphocytes # (1.0-4.8) k/uL Sodium (137-145) mmol/L Chloride (98-107) mmol/L BUN (7-17) mg/dL Creatinine (0.52-1.04) mg/dL Glucose (74-99) mg/dL POC Glucose (mg/dL) 248 H 255 H (75-99) mg/dL Plasma Lactic Acid Satinder 6.7 H* (0.7-2.0) mmol/L Calcium (8.4-10.2) mg/dL Total Protein (6.3-8.2) g/dL Albumin (3.5-5.0) g/dL 11/10/17 11/10/17 11/10/17 Range/Units 00:32 02:19 05:07 WBC 13.0 H (3.8-10.6) k/uL RBC 2.76 L (3.80-5.40) m/uL Hgb 8.4 L (11.4-16.0) gm/dL Hct 27.2 L (34.0-46.0) % MCHC 30.8 L (31.0-37.0) g/dL RDW 17.8 H (11.5-15.5) % Neutrophils # 10.7 H (1.3-7.7) k/uL Lymphocytes # (1.0-4.8) k/uL Sodium (137-145) mmol/L Chloride (98-107) mmol/L BUN (7-17) mg/dL Creatinine (0.52-1.04) mg/dL Glucose (74-99) mg/dL POC Glucose (mg/dL) 216 H (75-99) mg/dL Plasma Lactic Acid Satinder 2.4 H* (0.7-2.0) mmol/L Calcium (8.4-10.2) mg/dL Total Protein (6.3-8.2) g/dL Albumin (3.5-5.0) g/dL 11/10/17 11/10/17 11/10/17 Range/Units 05:07 08:14 12:03 WBC (3.8-10.6) k/uL RBC (3.80-5.40) m/uL Hgb (11.4-16.0) gm/dL Hct (34.0-46.0) % MCHC (31.0-37.0) g/dL RDW (11.5-15.5) % Neutrophils # (1.3-7.7) k/uL Lymphocytes # (1.0-4.8) k/uL Sodium 135 L (137-145) mmol/L Chloride 97 L (98-107) mmol/L BUN 28 H (7-17) mg/dL Creatinine 3.50 H (0.52-1.04) mg/dL Glucose 154 H (74-99) mg/dL POC Glucose (mg/dL) 178 H 196 H (75-99) mg/dL Plasma Lactic Acid Satinder (0.7-2.0) mmol/L Calcium (8.4-10.2) mg/dL Total Protein 5.9 L (6.3-8.2) g/dL Albumin 3.0 L (3.5-5.0) g/dL Microbiology - Last 24 Hours (Table) 11/09/17 11:17 Urine Culture - Preliminary Urine,Catheterized Assessment and Plan Plan: Assessment 1 acute sepsis the exact source is not clear. The patient presents with fever, leukocytosis, lactic acidosis, tachycardia, and hypotension. In addition she has developed some degree of hyperglycemia related to underlying sepsis. Chest x-ray is not showing any acute source of an infection. Cultures are in progress and the patient was started on empiric antibiotics. On today's evaluation of 11/10/2017, the patient is afebrile and the patient is improving. Lactic acidosis is gradually improved and the lactic acid level came from 6.7 down to 1.7. Cultures are still pending. Meanwhile the patient remains on a combination of Zosyn and vancomycin. CAT scan of the abdomen showed some nonspecific colitis involving the cecum and ascending colon. 2 hypotension secondary to above, the patient was given a total of 1.5 L through dialysis. The patient received more fluids if in the ICU patient received more than 3 L of IV fluids and she is currently on no pressors. She is hemodynamically stable with a systolic blood pressure in the mid 90s. She was running a lower blood pressure even on outpatient basis and this has been noted recently by the family. Note that she is based on hypertensive. 3 End stage renal disease on hemodialysis with AV fistula in left upper extremity. The patient underwent hemodialysis yesterday 4 acute hyperkalemia with a potassium level of 6.8 currently on hemodialysis, and subsequent potassium level is down to 4.9 5 diabetes mellitus with sepsis induced hyperglycemia 6 history of hypertension with diastolic heart failure and hypertensive heart disease 7 paroxysmal atrial fibrillation 8 coronary artery disease with multivessel coronary artery disease involvement and the patient has declined bypass surgery in the past and she has had on and off episodes of acute non-ST segment elevation myocardial infarction is. 9 morbid obesity with a BMI of 37.3 10 diabetic peripheral neuropathy and nephropathy 11 hypertension 12 healed pressure sores and sacral decub ulcers 13 acid reflux 14 hyperlipidemia 15 chronic anemia 16 moderate aortic stenosis based on recent echocardiogram with a preserved LV function with an ejection fraction of 55-60% 17 nonspecific colitis involving the cecum and ascending colon. 18 obstructive sleep apnea severe maintenance. At a pressure of 12 cm of water. Plan The patient will be kept on Zosyn and vancomycin combination. The patient will be monitored here in ICU for 24 hours pending blood cultures and urine cultures. There is some nonspecific colitis on the CAT scan of the abdomen and will going to follow-up on this abnormality. White cell count is down to 13. Lactic acid level is down to 1.7. The patient is awake and alert. Follow-up chest x-ray from today shows no evidence of any pneumonia or volume overload. The patient is on CPAP at a pressure of 12 cm of water and her CPAP will be restarted either through her own machine or from one of our hospital machines. Nephrology is on the case. We'll continue to follow make further recommendations based on her progress. All of the outpatient medications were resumed. There is a critically care evaluation was done and 35 minutes. Time with Patient: Greater than 30
--- NOTE | 2017-11-10 13:06 | P.PN ---
Subjective Progress Note Date: 11/10/17 72-year-old female patient of Dr. Villanueva with past medical history of atrial fibrillation, coronary artery disease status post myocardial infarction, history of triple-vessel disease disease and was considered high risk for bypass on conservative treatment, chronic diastolic heart failure, diabetes, hyperlipidemia, hypertension, end-stage renal disease on hemodialysis , peripheral neuropathy presents with sudden onset of fever, weakness associated 1 episode of vomiting on BiPAP yesterday. Vital signs is suggestive of a temp of 100.1 pulse 110 sinus, blood pressure 123/74. Labs were positive for leukocytosis of 22.7, hemoglobin 11.1, potassium 6.8, sodium 135 chloride 95 , BUN 50, creatinine 6.24, glucose 354, lactic acid 4.9 increased AST and a alkaline phosphatase. Urinalysis suggestive of dehydration Sonya in appearance, with moderate leukocyte esterase but only 5 WBCs with 20 hyalin cast. Patient received 1 L of IV fluid and is maintained on 100 mL per hour. She underwent treatment for hyperkalemia including calcium chloride , dextrose and insulin, and 15 mg of albuterol and Kayexalate. patient got vancomycin and Zosyn for broad-spectrum coverage. Will be moved to the ICU for severe sepsis with urgent dialysis performed in the ER. And was just discharged on October 26 with improvement in her WBCs. She was admitted that time for hyperkalemia and fluid overload. 11/10 and patient examined with site appears better than yesterday is more alert. Patient required multiple boluses of IV fluid due to drop in blood pressure. Blood pressures bedside today is 96/56. The patient completed dialysis yesterday, no plan for dialysis today. Continue to complain of abdominal pain x-ray, CT abdomen concerning for infiltrate or change in the ascending colon and cecum concerning for infectious versus inflammatory versus ischemic colitis. Continue antibiotic coverage with vancomycin and Zosyn. Infectious disease recommendation pending. Labs suggest improvement in leukocytosis from to 13. His hemoglobin dropped from 11.1-8.4 lactic acid improved from 6-1.7 with fluid boluses. Some improvement since starting patient continues to be nothing by mouth insulin sliding scale. Would recommend 500 mL of IV bolus before transfer to the [facility] Objective - Vital Signs Vital signs: Vital Signs Temp 98.6 F 11/10/17 12:00 Pulse 75 11/10/17 12:15 Resp 14 11/10/17 12:15 BP 96/37 11/10/17 12:15 Pulse Ox 99 11/10/17 12:15 Intake & Output 11/09/17 11/10/17 11/10/17 18:59 06:59 18:59 Intake Total 1900 695.0 Output Total 45 5 Balance 1855 690.0 Weight 92.533 kg 99.7 kg Intake: IV 1900 220 Sodium Chloride 0.9% 1, 1900 220 000 ml @ 100 mls/hr IV . Q10H STA Rx#:[id number] Intake, IV Titration 275.0 Amount Piperacillin-Tazobactam 3 12.5 .375 gm In Dextrose/Water 1 50ml.bag @ 12.5 mls/hr IVPB ONCE STA Rx#: [id number] Sodium Chloride 0.9% 1, 12.5 000 ml @ 999 mls/hr IV . Q1H1M ONE Rx#:[id number] Vancomycin 1,500 mg In 250 Sodium Chloride 0.9% 250 ml @ 125 mls/hr IVPB ONCE ONE Rx#:[id number] Oral 200 Output: Urine 45 5 Other: Voiding Method Indwelling Catheter Indwelling Catheter - Exam - Constitutional General appearance: Drowsy [id number] distress, obese, appears very sick - EENT Eyes: anicteric sclerae, PERRLA, normal appearance ENT: hearing grossly normal - Neck Neck: no lymphadenopathy, normal ROM, no other, no rigidity, no stridor, no thyromegaly - Respiratory Respiratory: bilateral: CTA, negative: diminished, dullness, rales, rhonchi - Cardiovascular Rhythm: Tachycardic but regular Heart sounds: normal: S1, S2 Abnormal Heart Sounds: no systolic murmur, no diastolic murmur, no rub, no S3 Gallop, no S4 Gallop, no click, no other - Gastrointestinal General gastrointestinal: normal bowel sounds, soft, diffusely tender - Integumentary Integumentary: no rash - Neurologic Neurologic: CNII-XII intact - Musculoskeletal Musculoskeletal: Generalized weakness with decreased power in bilateral lower extremity - Psychiatric Psychiatric: A&O x's 3, appropriate affect - Labs CBC & Chem 7: 11/10/17 05:07 11/10/17 05:07 Labs: Abnormal Lab Results - Last 24 Hours (Table) 0711/09/17 11/09/17 Range/Units 15:40 18:30 18:30 WBC 18.5 H (3.8-10.6) k/uL RBC 2.93 L (3.80-5.40) m/uL Hgb 8.8 L D (11.4-16.0) gm/dL Hct 28.7 L (34.0-46.0) % MCHC 30.7 L (31.0-37.0) g/dL RDW 17.8 H (11.5-15.5) % Neutrophils # 16.6 H (1.3-7.7) k/uL Lymphocytes # 0.7 L (1.0-4.8) k/uL Sodium (137-145) mmol/L Chloride 96 L (98-107) mmol/L BUN 18 H (7-17) mg/dL Creatinine 2.70 H (0.52-1.04) mg/dL Glucose 217 H (74-99) mg/dL POC Glucose (mg/dL) (75-99) mg/dL Plasma Lactic Acid Satinder 3.6 H* (0.7-2.0) mmol/L Calcium 7.8 L (8.4-10.2) mg/dL Total Protein 5.7 L (6.3-8.2) g/dL Albumin 3.0 L (3.5-5.0) g/dL 11/09/17 11/09/17 11/09/17 Range/Units 20:09 20:35 22:03 WBC (3.8-10.6) k/uL RBC (3.80-5.40) m/uL Hgb (11.4-16.0) gm/dL Hct (34.0-46.0) % MCHC (31.0-37.0) g/dL RDW (11.5-15.5) % Neutrophils # (1.3-7.7) k/uL Lymphocytes # (1.0-4.8) k/uL Sodium (137-145) mmol/L Chloride (98-107) mmol/L BUN (7-17) mg/dL Creatinine (0.52-1.04) mg/dL Glucose (74-99) mg/dL POC Glucose (mg/dL) 248 H 255 H (75-99) mg/dL Plasma Lactic Acid Satinder 6.7 H* (0.7-2.0) mmol/L Calcium (8.4-10.2) mg/dL Total Protein (6.3-8.2) g/dL Albumin (3.5-5.0) g/dL 11/10/17 11/10/17 11/10/17 Range/Units 00:32 02:19 05:07 WBC 13.0 H (3.8-10.6) k/uL RBC 2.76 L (3.80-5.40) m/uL Hgb 8.4 L (11.4-16.0) gm/dL Hct 27.2 L (34.0-46.0) % MCHC 30.8 L (31.0-37.0) g/dL RDW 17.8 H (11.5-15.5) % Neutrophils # 10.7 H (1.3-7.7) k/uL Lymphocytes # (1.0-4.8) k/uL Sodium (137-145) mmol/L Chloride (98-107) mmol/L BUN (7-17) mg/dL Creatinine (0.52-1.04) mg/dL Glucose (74-99) mg/dL POC Glucose (mg/dL) 216 H (75-99) mg/dL Plasma Lactic Acid Satinder 2.4 H* (0.7-2.0) mmol/L Calcium (8.4-10.2) mg/dL Total Protein (6.3-8.2) g/dL Albumin (3.5-5.0) g/dL 11/10/17 11/10/17 11/10/17 Range/Units 05:07 08:14 12:03 WBC (3.8-10.6) k/uL RBC (3.80-5.40) m/uL Hgb (11.4-16.0) gm/dL Hct (34.0-46.0) % MCHC (31.0-37.0) g/dL RDW (11.5-15.5) % Neutrophils # (1.3-7.7) k/uL Lymphocytes # (1.0-4.8) k/uL Sodium 135 L (137-145) mmol/L Chloride 97 L (98-107) mmol/L BUN 28 H (7-17) mg/dL Creatinine 3.50 H (0.52-1.04) mg/dL Glucose 154 H (74-99) mg/dL POC Glucose (mg/dL) 178 H 196 H (75-99) mg/dL Plasma Lactic Acid Satinder (0.7-2.0) mmol/L Calcium (8.4-10.2) mg/dL Total Protein 5.9 L (6.3-8.2) g/dL Albumin 3.0 L (3.5-5.0) g/dL Microbiology - Last 24 Hours (Table) 11/09/17 11:17 Urine Culture - Preliminary Urine,Catheterized Assessment and Plan Plan: #1 severe sepsis with a history of GI bleed likely secondary to ischemic/ infectious colitis. Patient has severe atherosclerosis a disease and has history of fresh blood per rectum with bowel movements according to the daughter bedside. Lactic acidimproved with iv fluids. Continue Zosyn and vancomycin. CBC positive for leukocytosis, tachycardia, fever with hypotension. Blood cultures. Urinalysis negative for infection. Chest x-ray negative for infection no other possible source of infection. Pulmonary medicine for ICU care. Infectious disease recommendation on antibiotics. Gastroenterology plan for possible colonoscopy. CT Abdomen positive for colitis. #2 chronic diastolic heart failure compensated on hemodialysis for fluid exes management. History of moderate aortic stenosis. Hold Imdur 30 mg, Toprol 50 mg, as BP is low. Hold Lasix 80 mg twice daily #3 end-stage renal disease on hemodialysis Monday and Monday. We' ll continue sevelamer 800 mg 3 times a day with meals #4 hypertension Hold metoprolol 100 mg every day #5 proximal atrial fibrillation. Continue amiodarone 100 mg once daily. Hold Cardizem 60 mg 3 times a day. Hold and requests for concern of GI bleed #63 of myocardial infarction and coronary artery disease Hold Toprol-XL 50 mg once daily, hold aspirin and Plavix for concern of GI bleed. Continue Zetia 10 mg once every day. Cardiology consult as patient has significant cardiovascular disease and is currently off anticoag #7 type 2 diabetes hold Lantus. Continue insulin sliding scale. Keep patient nothing by mouth for now. #8 GERD continue Protonix 40 mg once daily #10 hypertension and hypertensive cardiovascular disease. Hold Toprol-XL 50 mg every day, Cardizem 60 mg 3 times a day #11 history of hyperlipidemia intolerant of statins continue Zetia 10 mg once daily #12 diabetic peripheral neuropathy continue gabapentin 300 mg twice daily #13 depression continue Cymbalta 60 mg orally once daily #14 DVT prophylaxis hold L requests, Plavix and aspirin. Continue bilateral knee-high TERRIE hose #15 CODE STATUS full code Disposition patient has a poor prognosis, need for ICU management-
--- NOTE | 2017-11-10 13:16 | CONS ---
CONSULTATION REASON FOR CONSULT: End-stage renal disease. HISTORY OF PRESENT ILLNESS: Patient is a 72-year-old female who was admitted yesterday with complaints of increasing weakness, who also had some abdominal pain. She is normally maintained on dialysis on a Monday, , and Monday schedule. The patient had a CT scan done yesterday which showed evidence of colitis and inflammation in the bowel in the bowel wall. She was hypotensive with a lactic acidosis. Lactic acid was as high as 6.7. Patient has received about 3 L of fluid boluses and/resuscitation. She was also dialyzed yesterday as her potassium was elevated at 6.8. The. Overall, she states she is feeling better. Patient is maintained on IV antibiotics. PAST MEDICAL HISTORY: End-stage renal disease on hemodialysis on a Monday, , Monday schedule. Past medical history also significant for coronary artery disease, aortic stenosis, chronic A. fib, type 2 diabetes, diabetic nephropathy, diabetic neuropathy, previous urinary tract infection, multiple admissions for volume overload, diastolic dysfunction, history of MRSA wound infection. PAST SURGICAL HISTORY: PermCath placement removal, AV fistula left upper extremity, cholecystectomy, cardiac catheterization, arthritic surgery, hysterectomy and cataract surgery, AV fistula biopsy lateral cuff for carpal tunnel release. SOCIAL HISTORY: Negative for smoking, drug abuse or alcohol abuse. MEDICATIONS: Medications at home prior to admission, Cymbalta, fish oil, Pacerone, Eliquis, Colace, Zetia, Imdur, Neurontin, omeprazole, vitamin D3, Lasix, iron, insulin, Renvela, Plavix, Amanda, diltiazem, aspirin, midodrine. ALLERGIES: Include KUSHAL INHIBITORS, ANGIOTENSIN RECEPTOR BLOCKERS causing rash and swelling. KEFLEX causes a rash. DARVON causes hallucinations. STATINS cause myalgias. PHYSICAL EXAMINATION: Patient is currently comfortable, awake, alert, oriented x3. She is not in any acute distress. She denies any significant complaints. Blood pressure was 114/43, heart rate 75 per minute. She is afebrile. Examination of the heart, S1, S2. Examination of the lungs, bilateral breath sounds are heard. Abdomen is soft, distended, obese. There is tenderness in the lower abdomen. Examination of the lower extremities shows no edema. CONDUCTOR/ENGINEER exam is grossly intact. LABS: Shows sodium 135, potassium 4.9, chloride 97, BUN 28, creatinine 3.5. Lactic acid was down to 1.7. Albumin 3.0, hemoglobin 8.4 g/dL. ASSESSMENT: 1. End-stage renal disease, on hemodialysis on a Monday, , Monday schedule. We will plan for dialysis tomorrow unless patient's volume status worsens and she gets short of breath. We will dialyze her tonight for a short treatment. Otherwise, we will plan for her regular treatment tomorrow. 2. Sepsis with lactic acidosis, status post fluid with 2 L resuscitation sources of abdomen with evidence of colitis on CAT scan. 3. Abdominal pain with a moderate to marked colitis in the cecum and ascending colon, noted on the CAT scan. 4. Severe hyperkalemia. Initial admission currently improved post dialysis. 5. Hypotension secondary to sepsis, lactic acidosis, now improved. 6. Diastolic dysfunction and cardiomyopathy. 7. History of methicillin-resistant Staphylococcus aureus wound infection and bacteremia. 8. Chronic kidney disease mineral bone disorder. PLAN: 1. Hep-Lock IV fluids. 2. Hemodialysis in a.m., unless patient's a respiratory status. Thank you for this consultation. I will continue to follow the patient with you during her hospitalization. Continue empiric antibiotics and maintain patient on midodrine as well as states that normally on as outpatient. MMODL / IJN: [id number] /
--- NOTE | 2017-11-10 13:43 | P.CRDCN ---
History of Present Illness Consult date: 11/10/17 History of present illness: This is a pleasant 72-year-old female patient who sees Dr. Combs in the office on regular basis with a past medical history significant for coronary artery disease, end-stage renal disease on hemodialysis, hypertension, paroxysmal atrial fibrillation, and dyslipidemia, as well as diabetes, who was admitted to the hospital not feeling well. The patient does have extensive history of coronary artery disease where she underwent stenting of the LAD and subsequently left circumflex within the last 2 months. She underwent stenting of the LAD in July 2017 and left circumflex in August 2017. The patient was brought Family because the family noticed that the patient has been getting progressively weak. She was tired and fatigued and unable to get up from sitting position. The patient also was noticed to have high blood sugar at home. She did not have any shortness of breath. No chest pain or chest discomfort. It was also noticed that the patient was febrile at home. Because of that and because of suspected sepsis the patient was admitted to the intensive care unit and she did have panculture done. Also the patient underwent a computed tomography scan of the abdomen and pelvis and there is possible ischemic colitis going on. We get involved in the care of the patient because it was noticed that her hemoglobin dropped. No obvious upper or lower GI bleeding. The patient was receiving Plavix for antiplatelet and Eliquis for anticoagulation. She was seen and evaluated by the GI service and there is no clear indication that she is going to have an upper or lower endoscopy. Clinically and hemodynamically she seems to be stable from the cardiac standpoint. She is not on any vasopressors at this point. I did recommend that we can hold the Eliquis but to continue the Plavix at this point. Also we can hold the aspirin. Past Medical History Past Medical History: Atrial Fibrillation, Coronary Artery Disease (CAD), Heart Failure, Diabetes Mellitus, GERD/Reflux, Hyperlipidemia, Hypertension, Myocardial Infarction (SD), Pneumonia, Renal Disease, Sleep Apnea/CPAP/BIPAP Additional Past Medical History / Comment(s): Morbid obesity, coronary artery disease, moderate degree of aortic stenosis, chronic atrial fibrillation paroxysmal, diabetes mellitus, hypertension, hyperlipidemia, 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 coli, chronic back pain, peripheral neuropathy, chronic anemia, fatty liver, obstructive sleep apnea maintained on BiPAP on outpatient basis, history of wounds/sore in the right foot that was healed, healed sacral decubitus ulceration and bedsores Last Myocardial Infarction Date:: 2015 History of Any Multi-Drug Resistant Organisms: MRSA Date of last positivie culture/infection: 05/07/17 MDRO Source:: sputum Past Surgical History: Back Surgery, Cholecystectomy, Heart Catheterization, Heart Catheterization With Stent, Hysterectomy, Orthopedic Surgery Additional Past Surgical History / Comment(s): PCI with stents, several back surgeries-lumbar, bilateral carpal tunnel releases, bilateral cataract removals , port then fistula for hemodialysis. Past Anesthesia/Blood Transfusion Reactions: No Reported Reaction Additional Past Anesthesia/Blood Transfusion Reaction / Comment(s): Confusion that resolved. Date of Last Stent Placement:: 10/06/17 Past Psychological History: No Psychological Hx Reported Additional Psychological History / Comment(s): Pt's rachel resides with her. Pt is wheelchair bound. She can transfer herself into wheelchair and onto toilet. Daughter organizes her medications. She has oxygen in the house which she is currently using prn. Smoking Status: Never smoker Past Alcohol Use History: None Reported Past Drug Use History: None Reported - Past Family History Father Additional Family Medical History / Comment(s): Brain aneurysm ; age 72 Sister(s) Family Medical History: Hypertension Additional Family Medical History / Comment(s): Aortic stenosis; mitral valve disease Mother Family Medical History: AFIB, CVA/TIA, Hypertension Additional Family Medical History / Comment(s): mother age 83 Daughter(s) Family Medical History: Asthma Son(s) Family Medical History: Asthma Medications and Allergies Home Medications Medication Instructions Recorded Confirmed Type DULoxetine HCL [Cymbalta] 60 mg PO DAILY 08/04/14 11/09/17 History Fish Oil/Dha/Epa [Fish Oil 1,200 1 cap PO MOWEFR 08/04/14 11/09/17 History mg Fish Oil] Amiodarone HCl [Pacerone] 100 mg PO DAILY 11/22/15 11/09/17 History Apixaban [Eliquis] 2.5 mg PO BID 11/22/15 11/09/17 History Docusate [Colace] 100 mg PO BID 11/22/15 11/09/17 History Ezetimibe [Zetia] 10 mg PO DAILY 11/22/15 11/09/17 History Isosorbide Mononitrate ER [Imdur] 30 mg PO DAILY 11/22/15 11/09/17 History Gabapentin [Neurontin] 300 mg PO BID #60 capsule 11/27/15 11/09/17 Rx Cranberry 4200mg-Vitamin C 1 tab PO BID 12/25/16 11/09/17 History Omeprazole 20 mg PO DAILY 12/25/16 11/09/17 History Cholecalciferol (Vitamin D3) 2,000 unit PO DAILY 12/31/16 11/09/17 History [Vitamin D3] Furosemide [Lasix] 80 mg PO BID@0900,1600 tab 01/13/17 11/09/17 Rx Ferrous Sulfate [Iron (65 MG 325 mg PO DAILY 05/05/17 11/09/17 History Elemental)] Insulin Aspart [NovoLOG See Protocol SQ AC-TID 05/05/17 11/09/17 History (formulary)] Magnesium Oxide [Mag-Ox] 250 mg PO DAILY 05/05/17 11/09/17 History Metoprolol Succinate (ER) [Toprol 100 mg PO DAILY 05/05/17 11/09/17 History XL] Sevelamer [Renvela] 800 mg PO TID-W/MEALS #90 tab 05/15/17 11/09/17 Rx Insulin Aspart [NovoLOG 12 unit SQ AC-BRKFST 08/16/17 11/09/17 History (formulary)] Insulin Glargine [Lantus] 25 unit SQ BID 08/16/17 11/09/17 History Clopidogrel [Plavix] 75 mg PO DAILY #30 tab 08/21/17 11/09/17 Rx Fexofenadine HCl [Amanda Allergy] 180 mg PO DAILY 09/27/17 11/09/17 History Insulin Aspart [NovoLOG] 14 unit SQ AC-LUNCH 09/27/17 11/09/17 History Insulin Aspart [NovoLOG] 14 unit SQ AC-SUPPER 09/27/17 11/09/17 History Aspirin 81 mg PO DAILY #90 chewable 10/07/17 11/09/17 Rx Diltiazem HCl 60 mg PO TID 10/23/17 11/09/17 History Midodrine HCl [ProAmatine] 5 mg PO DAILY PRN 10/23/17 11/09/17 History Acetaminophen Tab [Tylenol Tab] 325 mg PO Q6H PRN 11/09/17 11/09/17 History Clopidogrel [Plavix] 75 mg PO DAILY 11/09/17 11/09/17 History Allergies Allergy/AdvReac Type Severity Reaction Status Date / Time KUSHAL Inhibitors Allergy Swelling Verified 11/09/17 11:07 ARB-Angiotensin Receptor Allergy Swelling Verified 11/09/17 11:07 Antagonist cephalexin monohydrate Allergy Rash/Hives Verified 11/09/17 11:07 [From Keflex] propoxyphene HCl AdvReac Hallucinati Verified 11/09/17 11:07 [From Darvon] ons Dtczbrq-[id number]-Uqw Reductase AdvReac Myalgia Verified 11/09/17 11:07 Inhibitor Physical Exam Vitals: Vital Signs Temp Pulse Resp BP Pulse Ox 11/10/17 12:15 75 14 96/37 99 11/10/17 12:00 98.6 F 73 12 99 11/10/17 11:45 75 19 78/51 99 11/10/17 11:30 74 12 109/40 99 11/10/17 11:15 74 13 109/40 98 11/10/17 11:00 74 11 L 109/40 98 11/10/17 10:45 75 13 109/40 99 11/10/17 10:44 101.8 F H 11/10/17 10:00 75 13 114/43 99 11/10/17 09:00 86 9 L 104/41 98 11/10/17 08:00 98.6 F 94 12 109/48 100 11/10/17 07:00 94 12 127/58 99 11/10/17 06:00 92 13 134/53 100 11/10/17 05:00 90 13 109/50 99 11/10/17 04:30 87 13 126/46 99 11/10/17 04:00 98.4 F 87 14 133/54 99 11/10/17 03:30 86 15 102/53 100 11/10/17 03:00 85 13 111/37 99 11/10/17 02:30 86 14 103/56 100 11/10/17 02:00 89 12 114/41 100 11/10/17 01:30 94 13 120/52 99 11/10/17 01:00 102 H 15 122/49 99 11/10/17 00:30 99 14 109/50 100 11/10/17 00:12 99 20 109/50 100 11/10/17 00:00 98.7 F 98 14 122/53 100 11/09/17 23:45 99 14 122/53 100 11/09/17 23:30 99 13 126/47 100 11/09/17 23:15 98 17 126/47 100 11/09/17 23:00 98 19 112/50 100 11/09/17 22:45 97 15 112/50 100 11/09/17 22:30 97 15 119/49 100 11/09/17 22:15 97 16 119/49 100 11/09/17 22:00 97 20 107/44 100 11/09/17 21:45 98 15 107/44 100 11/09/17 21:30 98 20 127/45 100 11/09/17 21:15 96 16 127/45 100 11/09/17 21:00 96 13 136/59 100 11/09/17 20:45 95 17 136/59 99 11/09/17 20:30 95 25 H 136/59 100 11/09/17 20:15 98.2 F 96 23 136/59 99 11/09/17 19:15 97.8 F 100 20 127/67 98 11/09/17 17:07 97.9 F 11/09/17 17:06 112 H 20 127/44 11/09/17 15:00 109 H 20 115/57 95 Intake and Output 11/09/17 11/10/17 11/10/17 22:59 06:59 14:59 Intake Total 200 1700 695.0 Output Total 10 35 5 Balance 190 1665 690.0 Intake: IV 200 1700 220 Sodium Chloride 0.9% 1, 200 1700 220 000 ml @ 100 mls/hr IV . Q10H STA Rx#:[id number] Intake, IV Titration 275.0 Amount Piperacillin-Tazobactam 3 12.5 .375 gm In Dextrose/Water 1 50ml.bag @ 12.5 mls/hr IVPB ONCE STA Rx#: [id number] Sodium Chloride 0.9% 1, 12.5 000 ml @ 999 mls/hr IV . Q1H1M ONE Rx#:[id number] Vancomycin 1,500 mg In 250 Sodium Chloride 0.9% 250 ml @ 125 mls/hr IVPB ONCE ONE Rx#:[id number] Oral 200 Output: Urine 10 35 5 Other: Voiding Method Indwelling Catheter Indwelling Catheter Weight 97.7 kg 99.7 kg - Constitutional General appearance: no acute distress - Respiratory Respiratory: bilateral: CTA - Cardiovascular Rhythm: regular Heart sounds: normal: S1, S2 Results 11/10/17 05:07 11/10/17 05:07 Cardiac Enzymes 11/09/17 11/10/17 Range/Units 18:30 05:07 AST 34 24 (14-36) U/L Coagulation 11/10/17 Range/Units 05:07 PT 10.8 (9.0-12.0) sec APTT 27.5 (22.0-30.0) sec CBC 11/09/17 11/10/17 Range/Units 18:30 05:07 WBC 18.5 H 13.0 H (3.8-10.6) k/uL RBC 2.93 L 2.76 L (3.80-5.40) m/uL Hgb 8.8 L D 8.4 L (11.4-16.0) gm/dL Hct 28.7 L 27.2 L (34.0-46.0) % Plt Count 208 186 (150-450) k/uL Comprehensive Metabolic Panel 11/09/17 11/10/17 Range/Units 18:30 05:07 Sodium 137 135 L (137-145) mmol/L Potassium 4.0 4.9 (3.5-5.1) mmol/L Chloride 96 L 97 L (98-107) mmol/L Carbon Dioxide 27 29 (22-30) mmol/L BUN 18 H 28 H (7-17) mg/dL Creatinine 2.70 H 3.50 H (0.52-1.04) mg/dL Glucose 217 H 154 H (74-99) mg/dL Calcium 7.8 L 8.4 (8.4-10.2) mg/dL AST 34 24 (14-36) U/L ALT 27 33 (9-52) U/L Alkaline Phosphatase 118 106 (38-126) U/L Total Protein 5.7 L 5.9 L (6.3-8.2) g/dL Albumin 3.0 L 3.0 L (3.5-5.0) g/dL Current Medications Generic Name Dose Route Start Last Admin Trade Name Freq PRN Reason Stop Dose Admin Acetaminophen 650 mg 11/09/17 11:48 Tylenol Tab PO Q6HR PRN Mild Pain or Fever > 100.5 Amiodarone HCl 100 mg 11/10/17 09:00 11/10/17 08:17 Cordarone PO 100 mg DAILY JONEL Administration Cholecalciferol 2,000 unit 11/10/17 09:00 11/10/17 08:17 Vitamin D3 PO 2,000 unit DAILY JONEL Administration Diltiazem HCl 60 mg 11/09/17 16:00 11/10/17 08:16 Cardizem Oral PO 60 mg TID JONEL Administration Duloxetine HCl 60 mg 11/10/17 09:00 11/10/17 08:16 Cymbalta PO 60 mg DAILY JONEL Administration Ezetimibe 10 mg 11/10/17 09:00 11/10/17 08:17 Zetia PO 10 mg DAILY JONEL Administration Ferrous Sulfate 325 mg 11/10/17 09:00 11/10/17 08:16 Feosol PO 325 mg DAILY JONEL Administration Gabapentin 300 mg 11/09/17 21:00 11/10/17 08:16 Neurontin PO 300 mg BID JONEL Administration Piperacillin/Tazobactam/ 50 mls @ 12.5 mls/hr 11/09/17 22:00 11/10/17 08:15 Dextrose 3.375 gm/ IV Solution IVPB 12.5 mls/hr Q12HR JONEL Administration Insulin Aspart 0 unit 11/09/17 20:00 11/10/17 12:52 Novolog SQ 2 unit [id number] JONEL Administration Protocol Isosorbide Mononitrate 30 mg 11/10/17 09:00 11/10/17 08:18 Imdur PO 30 mg DAILY JONEL Administration Loratadine 10 mg 11/10/17 09:00 11/10/17 08:17 Claritin PO 10 mg DAILY JONEL Administration Magnesium Oxide 400 mg 11/10/17 09:00 11/10/17 08:17 Mag-Ox PO 400 mg DAILY JONEL Administration Metoprolol Succinate 50 mg 11/10/17 09:00 11/10/17 08:17 Toprol Xl PO 50 mg DAILY JONEL Administration Midodrine 5 mg 11/09/17 11:54 Proamatine PO DAILY PRN DIALYSIS Midodrine 10 mg 11/10/17 17:30 Proamatine PO AC-BID JONEL Miscellaneous Information 1 each 11/09/17 14:16 Pharmacy To Dose Iv Vancomycin MISCELLANE DIRECTED PRN Per Protocol Naloxone HCl 0.2 mg 11/09/17 11:48 Narcan IV Q2M PRN Opioid Reversal Ondansetron HCl 4 mg 11/09/17 11:48 Zofran IVP Q8HR PRN Nausea And Vomiting Pantoprazole Sodium 40 mg 11/10/17 07:30 11/10/17 08:16 Protonix PO 40 mg AC-BRKFST JONEL Administration Sevelamer Carbonate 800 mg 11/09/17 12:30 11/10/17 12:52 Renvela PO 800 mg TID-W/MEALS JONEL Administration Intake and Output 11/09/17 11/10/17 11/10/17 22:59 06:59 14:59 Intake Total 200 1700 695.0 Output Total 10 35 5 Balance 190 1665 690.0 Intake: IV 200 1700 220 Sodium Chloride 0.9% 1, 200 1700 220 000 ml @ 100 mls/hr IV . Q10H STA Rx#:[id number] Intake, IV Titration 275.0 Amount Piperacillin-Tazobactam 3 12.5 .375 gm In Dextrose/Water 1 50ml.bag @ 12.5 mls/hr IVPB ONCE STA Rx#: [id number] Sodium Chloride 0.9% 1, 12.5 000 ml @ 999 mls/hr IV . Q1H1M ONE Rx#:[id number] Vancomycin 1,500 mg In 250 Sodium Chloride 0.9% 250 ml @ 125 mls/hr IVPB ONCE ONE Rx#:[id number] Oral 200 Output: Urine 10 35 5 Other: Voiding Method Indwelling Catheter Indwelling Catheter Weight 97.7 kg 99.7 kg 11/10/17 05:07 11/10/17 05:07 Assessment and Plan Assessment: Assessment #1 sepsis of unknown source at this point. #2 possible ischemic colitis #3 acute blood loss. GI bleeding to be ruled out #4 coronary artery disease and status post a stenting of the LAD and left circumflex #5 paroxysmal atrial fibrillation #6 end Stage renal disease on hemodialysis Plan #1 I would hold anticoagulation. I would continue at least the Plavix in view of the recent multivessel coronary event angioplasty and stenting. #2 continue monitor the hemoglobin and blood transfusion for hemoglobin below 7 #3 the patient is in process to be seen by the GI service. We'll continue following up with her.
[2017-11-10 17:10] LABS: Glucose,Whole Blood 205 mg/dL (75-99)
[2017-11-10] MEDS: MIDODRINE 5 MG TAB PO SCH (18:01)
[2017-11-10] MEDS: CLOPIDOGREL 75 MG TAB PO SCH (18:23)
--- NOTE | 2017-11-10 20:39 | P.CON ---
Consult Note - . Consult date: 11/10/17 Assessment/Plan:: This is a 72-year-old female known to ID service as she was treated for a MRSA soft tissue skin infection approximately 6 years ago. She most recently was seen in November 2016 at which time she was treated for acute respiratory failure secondary to acute on chronic diastolic heart failure COPD exacerbation and moderate aortic stenosis. Patient is known to have end-stage renal disease on dialysis Monday. She states she received her Monday therapy and also was given additional treatment on Monday. Patient states that she was sleeping when she woke up in the morning her daughter lives with her woke her up and found that she had vomited into her CPAP mask and patient was also very lethargic weak and fatigued. She apparently had some fevers at home she was complaining of some mild shortness of breath. Also her blood sugars have been running high at home. She denies any cough or sputum production. She denies any diarrhea or constipation. She denies any blood in her stools. Her last bowel movement was yesterday. She states when she was up her daughter tried to help her to the bathroom but because she was so weak she had to wait until her son was there and able to lift her onto the toilet. Regarding abdominal pain, she states she did not realize she had any until EMS moved her onto a gurney and she noted right lower quadrant pain. Her blood sugars have been running high at home. Patient was then brought into [facility] emergency center for evaluation where she was found to have temperature 100.1, white count of 22.7. Potassium was 6.8 and she is status post Kayexalate, BUN 50, creatinine 6.25. Initial lactic acid was 4.9 and repeat is down to 1.7 as of this morning. Her urinalysis was cloudy, leukoesterase moderate and squamous cells 5. Patient states she only voids about 1 time every 2-3 days. She denies having any known pain with urination. She currently has a Levy catheter in place. Chest x-ray showed minimal basilar atelectasis suspected. Dr. Botello was contacted and patient was given hemodialysis in the emergency center and did have hypotension requiring IV fluid bolus of 1500 cc. Patient was admitted into the intensive care unit. She has not required vasopressors. No plan for dialysis today. She does have a recent history of myocardial infarction stent placement in September. Patient was noted to have a drop in her hemoglobin initially 11.1 and now 8.4 for which GI has been consult it. There is no plan for any intervention at this time. Her CAT scan of the abdomen and pelvis with contrast showed moderate marked colitis in the cecum and the ascending colon likely inflammatory. Patient has been on Zosyn and vancomycin. Note the patient is also on amiodarone. Potassium is improved this morning of 4.9. Patient has been started on a clear liquid diet this morning for breakfast and is tolerating this. She denies any further episodes of nausea or vomiting. She states she has a little appetite. Patient has chronic back pain status post multiple back surgeries for which she is now essentially wheelchair bound due to frequent falls. She is able to transfer herself. Patient has not had any recent falls. Please see the consult note is dictated by nurse practitioner Mrs. Jessenia Gonzalez. Patient was originally evaluated in the intensive care unit awaiting her transfer out of the ICU. At presentation she is having difficulties with increasing shortness of breath and evidence of sepsis. She's been initiated antibiotic therapy with Zosyn and vancomycin. There is concerns to a colitis occurring by the computed tomography scan findings and has been evaluated by gastroenterology with concern to ischemic colitis. Without profuse diarrhea about thought not to be infectious at this time. She has had difficulties with urinary tract infections with E. coli that is quinolone resistant. Earlier this year she did have MRSA pneumonia. Continue current antibiotic therapy while cultures are in process. She cinnamic more stable will move out of the ICU today. Hopefully we'll be able to have further dialysis sessions to improve her volume status. She did have a temperature 101.8 and is noted cultures are in process. Ischemic colitis could result in fever has continued underlying urinary infection. Supportive care is being given and gastroenterology is following. She tolerated some food today without significant pain. Currently wondering if she will go to rehab at discharge. I agree with the Evaluation, assessment and plan as dictated by nurse practitioner Mrs. Jessenia Gonzalez.
[2017-11-10 20:40] LABS: Glucose,Whole Blood 224 mg/dL (75-99)
[2017-11-11] MEDS: INSULIN ASPART 100 UNIT/ML 1 ML 10 ML VIAL SQ SCH ×5 (03:43→21:14)
[2017-11-11 06:21] LABS: Glucose,Whole Blood 208 mg/dL (75-99)
[2017-11-11 06:27] LABS: Anisocytosis Slight; Basophils % (A) 0 %; Eosinophils # (A) 0.4 k/uL (0-0.7); Eosinophils % (A) 4 %; HCT 27.6 % (34.0-46.0); HGB 8.3 gm/dL (11.4-16.0); Hypochromasia Marked; Lymphocytes # (A) 1.4 k/uL (1.0-4.8); Lymphocytes % (A) 12 %; MCH 29.6 pg (25.0-35.0); MCV 98.5 fL (80.0-100.0); Macrocytosis Slight; Monocytes # (A) 0.5 k/uL (0-1.0); Monocytes % (A) 4 %; Neutrophils # (A) 9.9 k/uL (1.3-7.7); Neutrophils % (A) 80 %; Platelet Count 225 k/uL (150-450); RDW 17.4 % (11.5-15.5); WBC 12.4 k/uL (3.8-10.6)
[2017-11-11] MEDS: SEVELAMER 800 MG TAB PO SCH ×3 (06:48→17:01)
[2017-11-11] MEDS: MIDODRINE 5 MG TAB PO SCH (06:48)
[2017-11-11] MEDS: PANTOPRAZOLE 40 MG TABLET PO SCH (06:48)
[2017-11-11 06:50] LABS: Calcium 8.6 mg/dL (8.4-10.2); Magnesium 2.3 mg/dL (1.6-2.3); Phosphorus 5.5 mg/dL (2.5-4.5)
[2017-11-11 06:55] LABS: Vancomycin,Random 31.3 ug/mL
[2017-11-11] MEDS: CLOPIDOGREL 75 MG TAB PO SCH (07:57)
[2017-11-11] MEDS: AMIODARONE 100 MG TAB PO SCH (07:57)
[2017-11-11] MEDS: CHOLECALCIFEROL 1,000 UNIT TAB PO SCH (07:57)
[2017-11-11] MEDS: FERROUS SULFATE 325 MG TAB PO SCH (07:58)
[2017-11-11] MEDS: EZETIMIBE 10 MG TAB PO SCH (07:58)
[2017-11-11] MEDS: DULoxetine HCL 60 MG CAPSULE.DR PO SCH (07:58)
[2017-11-11] MEDS: GABAPENTIN 300 MG CAP PO SCH ×2 (07:58→21:13)
[2017-11-11] MEDS: LORATADINE 10 MG TAB PO SCH (07:59)
[2017-11-11] MEDS: MAGNESIUM OXIDE 400 MG TAB PO SCH (07:59)
[2017-11-11] MEDS: ISOSORBIDE MONONITRATE ER 30 MG TAB.ER.24H PO SCH (07:59)
[2017-11-11] MEDS: PIPERACILLIN-TAZOBACTAM 3.375 GM in DEXTROSE/WATER 1 50ML.BAG IVPB SCH ×2 (07:59→21:14)
[2017-11-11 08:51] LABS: ABG Base Excess 3.3 mmol/L; ABG HCO3 29 mmol/L (21-25); ABG Oxygen Saturation 88.9 % (94-97); ABG PCO2 52 mmHg (35-45); ABG PH 7.35 (7.35-7.45); ABG PO2 61 mmHg (83-108); ABG TCO2 30 mmol/L (19-24)
--- NOTE | 2017-11-11 09:18 | P.PN ---
Subjective Patient is seen in follow-up for end-stage renal disease. She is maintained on hemodialysis on a Monday schedule via left upper extremity AV fistula. She currently denies any diarrhea. She is tolerating oral intake. Vital signs are stable. General: The patient appeared well nourished and normally developed. HEENT: Head exam is unremarkable. Neck is without jugular venous distension. LUNGS: Lungs are clear to auscultation and percussion. Breath sounds decreased. HEART: Rate and Rhythm are regular. First and second heart sounds normal. No murmurs, rubs or gallops. ABDOMEN: Abdominal exam reveals normal bowel sounds. Non-tender and non- distended. No evidence of peritonitis. EXTREMITITES: No clubbing, cyanosis, or edema. Objective - Vital Signs Vital signs: Vital Signs Temp 97.1 F L 11/11/17 07:55 Pulse 78 11/11/17 07:55 Resp 24 11/11/17 07:55 BP 136/62 11/11/17 07:55 Pulse Ox 93 L 11/11/17 07:55 Intake & Output 11/10/17 11/11/17 11/11/17 18:59 06:59 18:59 Intake Total 2575.0 470 120 Output Total 50 55 75 Balance 2525.0 415 45 Weight 99.7 kg 93.5 kg Intake: IV 300 Sodium Chloride 0.9% 1, 300 000 ml @ 100 mls/hr IV . Q10H STA Rx#:[id number] Intake, IV Titration 775.0 50 Amount Piperacillin-Tazobactam 3 12.5 .375 gm In Dextrose/Water 1 50ml.bag @ 12.5 mls/hr IVPB ONCE STA Rx#: [id number] Piperacillin-Tazobactam 3 50 .375 gm In Dextrose/Water 1 50ml.bag @ 12.5 mls/hr IVPB Q12HR [facility] Rx#: [id number] Sodium Chloride 0.9% 1, 12.5 000 ml @ 999 mls/hr IV . Q1H1M ONE Rx#:[id number] Sodium Chloride 0.9% 500 500 ml @ 999 mls/hr IV .Q31M ONE Rx#:[id number] Vancomycin 1,500 mg In 250 Sodium Chloride 0.9% 250 ml @ 125 mls/hr IVPB ONCE ONE Rx#:[id number] Oral 1500 420 120 Output: Urine 50 55 75 Uretheral (Levy) 75 Other: Voiding Method Indwelling Catheter Indwelling Catheter - Labs CBC & Chem 7: 11/11/17 05:57 11/11/17 05:57 Labs: Abnormal Lab Results - Last 24 Hours (Table) 11/10/17 11/10/17 11/10/17 Range/Units 12:03 17:08 20:38 WBC (3.8-10.6) k/uL RBC (3.80-5.40) m/uL Hgb (11.4-16.0) gm/dL Hct (34.0-46.0) % MCHC (31.0-37.0) g/dL RDW (11.5-15.5) % Neutrophils # (1.3-7.7) k/uL ABG pCO2 (35-45) mmHg ABG pO2 (83-108) mmHg ABG HCO3 (21-25) mmol/L ABG Total CO2 (19-24) mmol/L ABG O2 Saturation (94-97) % Sodium (137-145) mmol/L Potassium (3.5-5.1) mmol/L Chloride (98-107) mmol/L BUN (7-17) mg/dL Creatinine (0.52-1.04) mg/dL Glucose (74-99) mg/dL POC Glucose (mg/dL) 196 H 205 H 224 H (75-99) mg/dL Phosphorus (2.5-4.5) mg/dL 11/11/17 11/11/17 11/11/17 Range/Units 05:57 05:57 06:20 WBC 12.4 H (3.8-10.6) k/uL RBC 2.80 L (3.80-5.40) m/uL Hgb 8.3 L (11.4-16.0) gm/dL Hct 27.6 L (34.0-46.0) % MCHC 30.0 L (31.0-37.0) g/dL RDW 17.4 H (11.5-15.5) % Neutrophils # 9.9 H (1.3-7.7) k/uL ABG pCO2 (35-45) mmHg ABG pO2 (83-108) mmHg ABG HCO3 (21-25) mmol/L ABG Total CO2 (19-24) mmol/L ABG O2 Saturation (94-97) % Sodium 130 L (137-145) mmol/L Potassium 6.0 H (3.5-5.1) mmol/L Chloride 93 L (98-107) mmol/L BUN 42 H (7-17) mg/dL Creatinine 5.10 H* (0.52-1.04) mg/dL Glucose 184 H (74-99) mg/dL POC Glucose (mg/dL) 208 H (75-99) mg/dL Phosphorus 5.5 H (2.5-4.5) mg/dL 11/11/17 Range/Units 08:43 WBC (3.8-10.6) k/uL RBC (3.80-5.40) m/uL Hgb (11.4-16.0) gm/dL Hct (34.0-46.0) % MCHC (31.0-37.0) g/dL RDW (11.5-15.5) % Neutrophils # (1.3-7.7) k/uL ABG pCO2 52 H (35-45) mmHg ABG pO2 61 L (83-108) mmHg ABG HCO3 29 H (21-25) mmol/L ABG Total CO2 30 H (19-24) mmol/L ABG O2 Saturation 88.9 L (94-97) % Sodium (137-145) mmol/L Potassium (3.5-5.1) mmol/L Chloride (98-107) mmol/L BUN (7-17) mg/dL Creatinine (0.52-1.04) mg/dL Glucose (74-99) mg/dL POC Glucose (mg/dL) (75-99) mg/dL Phosphorus (2.5-4.5) mg/dL Microbiology - Last 24 Hours (Table) 11/09/17 11:17 Urine Culture - Final Urine,Catheterized 11/09/17 10:22 Blood Culture - Preliminary Blood No Growth after 24 hours Assessment and Plan Plan: Assessment: 1. End-stage renal disease maintained on hemodialysis on a Monday schedule via left upper extremity AV fistula. 2. Hypotension status post IV fluids. Maintained on midodrine. 3. Colitis in the cecum and ascending colon noted on CAT scan maintained on antibiotics. Possibly ischemic colitis. Not having diarrhea. GI following as well. 4. Anemia of chronic kidney disease. Rule out iron deficiency. No active bleeding noted. 5. 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 Phosphorus level 5.5. 6. Diastolic CHF. 7. Hyperkalemia secondary to chronic kidney disease. Expect improvement postdialysis. Plan: Hemodialysis today. Check iron studies. Add Aranesp.
--- NOTE | 2017-11-11 09:24 | P.PN ---
Subjective Progress Note Date: 11/11/17 Principal diagnosis: Acute respiratory failure Patient had a rough night and stated that she continues to be short of breath patient does not feel any improvement since admission and thinks that she's slightly worse. Objective - Vital Signs Vital signs: Vital Signs Temp 97.1 F L 11/11/17 07:55 Pulse 78 11/11/17 07:55 Resp 24 11/11/17 07:55 BP 136/62 11/11/17 07:55 Pulse Ox 93 L 11/11/17 07:55 Intake & Output 11/10/17 11/11/17 11/11/17 18:59 06:59 18:59 Intake Total 2575.0 470 120 Output Total 50 55 75 Balance 2525.0 415 45 Weight 99.7 kg 93.5 kg Intake: IV 300 Sodium Chloride 0.9% 1, 300 000 ml @ 100 mls/hr IV . Q10H [facility] Rx#:[id number] Intake, IV Titration 775.0 50 Amount Piperacillin-Tazobactam 3 12.5 .375 gm In Dextrose/Water 1 50ml.bag @ 12.5 mls/hr IVPB ONCE [facility] Rx#: [id number] Piperacillin-Tazobactam 3 50 .375 gm In Dextrose/Water 1 50ml.bag @ 12.5 mls/hr IVPB Q12HR [facility] Rx#: [id number] Sodium Chloride 0.9% 1, 12.5 000 ml @ 999 mls/hr IV . Q1H1M ONE Rx#:[id number] Sodium Chloride 0.9% 500 500 ml @ 999 mls/hr IV .Q31M ONE Rx#:[id number] Vancomycin 1,500 mg In 250 Sodium Chloride 0.9% 250 ml @ 125 mls/hr IVPB ONCE ONE Rx#:[id number] Oral 1500 420 120 Output: Urine 50 55 75 Uretheral (Levy) 75 Other: Voiding Method Indwelling Catheter Indwelling Catheter - Exam Gen.: in stated age, no acute distress Heart: Normal S1-S2 Lungs: Decreased air entry bilaterally Abdomen: Soft, no tenderness, positive bowel sounds in all 4 quadrant no guarding or rebound Skin: No new rash Psych: Alert and oriented 3 Neuro: No focal deficit - Labs CBC & Chem 7: 11/11/17 05:57 11/11/17 05:57 Labs: Abnormal Lab Results - Last 24 Hours (Table) 11/10/17 11/10/17 11/10/17 Range/Units 12:03 17:08 20:38 WBC (3.8-10.6) k/uL RBC (3.80-5.40) m/uL Hgb (11.4-16.0) gm/dL Hct (34.0-46.0) % MCHC (31.0-37.0) g/dL RDW (11.5-15.5) % Neutrophils # (1.3-7.7) k/uL ABG pCO2 (35-45) mmHg ABG pO2 (83-108) mmHg ABG HCO3 (21-25) mmol/L ABG Total CO2 (19-24) mmol/L ABG O2 Saturation (94-97) % Sodium (137-145) mmol/L Potassium (3.5-5.1) mmol/L Chloride (98-107) mmol/L BUN (7-17) mg/dL Creatinine (0.52-1.04) mg/dL Glucose (74-99) mg/dL POC Glucose (mg/dL) 196 H 205 H 224 H (75-99) mg/dL Phosphorus (2.5-4.5) mg/dL 11/11/17 11/11/17 11/11/17 Range/Units 05:57 05:57 06:20 WBC 12.4 H (3.8-10.6) k/uL RBC 2.80 L (3.80-5.40) m/uL Hgb 8.3 L (11.4-16.0) gm/dL Hct 27.6 L (34.0-46.0) % MCHC 30.0 L (31.0-37.0) g/dL RDW 17.4 H (11.5-15.5) % Neutrophils # 9.9 H (1.3-7.7) k/uL ABG pCO2 (35-45) mmHg ABG pO2 (83-108) mmHg ABG HCO3 (21-25) mmol/L ABG Total CO2 (19-24) mmol/L ABG O2 Saturation (94-97) % Sodium 130 L (137-145) mmol/L Potassium 6.0 H (3.5-5.1) mmol/L Chloride 93 L (98-107) mmol/L BUN 42 H (7-17) mg/dL Creatinine 5.10 H* (0.52-1.04) mg/dL Glucose 184 H (74-99) mg/dL POC Glucose (mg/dL) 208 H (75-99) mg/dL Phosphorus 5.5 H (2.5-4.5) mg/dL 11/11/17 Range/Units 08:43 WBC (3.8-10.6) k/uL RBC (3.80-5.40) m/uL Hgb (11.4-16.0) gm/dL Hct (34.0-46.0) % MCHC (31.0-37.0) g/dL RDW (11.5-15.5) % Neutrophils # (1.3-7.7) k/uL ABG pCO2 52 H (35-45) mmHg ABG pO2 61 L (83-108) mmHg ABG HCO3 29 H (21-25) mmol/L ABG Total CO2 30 H (19-24) mmol/L ABG O2 Saturation 88.9 L (94-97) % Sodium (137-145) mmol/L Potassium (3.5-5.1) mmol/L Chloride (98-107) mmol/L BUN (7-17) mg/dL Creatinine (0.52-1.04) mg/dL Glucose (74-99) mg/dL POC Glucose (mg/dL) (75-99) mg/dL Phosphorus (2.5-4.5) mg/dL Microbiology - Last 24 Hours (Table) 11/09/17 11:17 Urine Culture - Final Urine,Catheterized 11/09/17 10:22 Blood Culture - Preliminary Blood No Growth after 24 hours Assessment and Plan Plan: 1. Acute respiratory failure with hypoxia currently on BiPAP. 2. Obstructive sleep apnea. 3. Debility and deconditioning. 4. Electrolyte imbalance area 5. End-stage renal disease on hemodialysis. 6. COPD with acute exacerbation. 7. Questionable colitis. Patient reported no bowel movement for the last 3 days and denied any abdominal pain or vomiting stated that she feels on the nauseous. Patient BiPAP adjusted on her face and was made tighter I would like to order ABG, start patient on Solu-Medrol 60 mg every 6 hours as needed and wean off as tolerated and wait on pulmonary evaluation this morning we would like to continue with broad-spectrum antibiotics continue with aggressive pulmonary hygiene and start patients on DVT prophylaxis. Patient reported that she is anuric and may need to go to bathroom to urinate once every 3 days. Prognosis is guarded
[2017-11-11] MEDS: HEPARIN SODIUM,PORCINE 5,000 UNIT/ML 1 ML VIAL SQ SCH ×2 (09:38→21:13)
[2017-11-11] MEDS: methylPREDNISolone SOD SUCCI 125 MG/2 ML VIAL IV SCH ×3 (09:39→23:28)
[2017-11-11] MEDS ORDERED: DARBEPOETIN ALFA 40 MCG/0.4 ML SYRINGE SQ SCH (10:00)
[2017-11-11 12:06] LABS: Glucose,Whole Blood 273 mg/dL (75-99)
--- NOTE | 2017-11-11 12:07 | P.PN ---
Subjective Progress Note Date: 11/11/17 As a pleasant 72-year-old female patient who sees Dr. Combs in the office. She hasn't passed medical history significant for coronary artery disease stenting of the LAD in July 2017 and stenting of the left circumflex in August 2017, end-stage renal disease on hemodialysis, hypertension, paroxysmal atrial fibrillation and dyslipidemia as well as diabetes. She was admitted to the hospital for overall not feeling well. Family noticed progressive weakness and she was feeling very tired and fatigued and unable to get up from a sitting position. She also had high blood sugars at home. She did not have any shortness of breath, chest discomfort. Patient was febrile at home. Because of suspected sepsis the patient was admitted to intensive care unit and cultures have been done. CT scan of the abdomen and pelvis showed possible ischemic colitis. We were asked see the patient in consult because of a hemoglobin drop and patient is on anticoagulation for PAF. No obvious upper or lower GI bleeding. Eliquis has been on hold and plavix continues. On examination this morning, patient is on BiPAP. She is in obvious fluid overload. She is awaiting dialysis to be done this morning. Objective - Vital Signs Vital signs: Vital Signs Temp 97.1 F L 11/11/17 07:55 Pulse 78 11/11/17 07:55 Resp 24 11/11/17 07:55 BP 136/62 11/11/17 07:55 Pulse Ox 93 L 11/11/17 07:55 Intake & Output 11/10/17 11/11/17 11/11/17 18:59 06:59 18:59 Intake Total 2575.0 470 120 Output Total 50 55 75 Balance 2525.0 415 45 Weight 99.7 kg 93.5 kg Intake: IV 300 Sodium Chloride 0.9% 1, 300 000 ml @ 100 mls/hr IV . Q10H [facility] Rx#:[id number] Intake, IV Titration 775.0 50 Amount Piperacillin-Tazobactam 3 12.5 .375 gm In Dextrose/Water 1 50ml.bag @ 12.5 mls/hr IVPB ONCE [facility] Rx#: [id number] Piperacillin-Tazobactam 3 50 .375 gm In Dextrose/Water 1 50ml.bag @ 12.5 mls/hr IVPB Q12HR [facility] Rx#: [id number] Sodium Chloride 0.9% 1, 12.5 000 ml @ 999 mls/hr IV . Q1H1M ONE Rx#:[id number] Sodium Chloride 0.9% 500 500 ml @ 999 mls/hr IV .Q31M [facility] Rx#:[id number] Vancomycin 1,500 mg In 250 Sodium Chloride 0.9% 250 ml @ 125 mls/hr IVPB ONCE ONE Rx#:[id number] Oral 1500 420 120 Output: Urine 50 55 75 Uretheral (Levy) 75 Other: Voiding Method Indwelling Catheter Indwelling Catheter # Voids 0 # Bowel Movements 0 - Exam PHYSICAL EXAMINATION: HEENT: Head is atraumatic, normocephalic. Pupils equal, round. Neck is supple. There is no elevated jugular venous pressure. HEART EXAMINATION: Heart sounds regular, S1 and S2 normal. No murmur or gallop heard. CHEST EXAMINATION: Lungs reveal diminished air entry bilaterally with scattered wheezing and crackles. No chest wall tenderness is noted on palpation or with deep breathing. ABDOMEN: Soft, obese, nontender. Bowel sounds are heard. No organomegaly noted. EXTREMITIES: 2+ peripheral pulses with no evidence of peripheral edema and no calf tenderness noted. NEUROLOGIC patient is drowsy and oriented x3. . - Labs CBC & Chem 7: 11/11/17 05:57 11/11/17 05:57 Labs: Abnormal Lab Results - Last 24 Hours (Table) 11/10/17 11/10/17 11/10/17 Range/Units 12:03 17:08 20:38 WBC (3.8-10.6) k/uL RBC (3.80-5.40) m/uL Hgb (11.4-16.0) gm/dL Hct (34.0-46.0) % MCHC (31.0-37.0) g/dL RDW (11.5-15.5) % Neutrophils # (1.3-7.7) k/uL ABG pCO2 (35-45) mmHg ABG pO2 (83-108) mmHg ABG HCO3 (21-25) mmol/L ABG Total CO2 (19-24) mmol/L ABG O2 Saturation (94-97) % Sodium (137-145) mmol/L Potassium (3.5-5.1) mmol/L Chloride (98-107) mmol/L BUN (7-17) mg/dL Creatinine (0.52-1.04) mg/dL Glucose (74-99) mg/dL POC Glucose (mg/dL) 196 H 205 H 224 H (75-99) mg/dL Phosphorus (2.5-4.5) mg/dL 11/11/17 11/11/17 11/11/17 Range/Units 05:57 05:57 06:20 WBC 12.4 H (3.8-10.6) k/uL RBC 2.80 L (3.80-5.40) m/uL Hgb 8.3 L (11.4-16.0) gm/dL Hct 27.6 L (34.0-46.0) % MCHC 30.0 L (31.0-37.0) g/dL RDW 17.4 H (11.5-15.5) % Neutrophils # 9.9 H (1.3-7.7) k/uL ABG pCO2 (35-45) mmHg ABG pO2 (83-108) mmHg ABG HCO3 (21-25) mmol/L ABG Total CO2 (19-24) mmol/L ABG O2 Saturation (94-97) % Sodium 130 L (137-145) mmol/L Potassium 6.0 H (3.5-5.1) mmol/L Chloride 93 L (98-107) mmol/L BUN 42 H (7-17) mg/dL Creatinine 5.10 H* (0.52-1.04) mg/dL Glucose 184 H (74-99) mg/dL POC Glucose (mg/dL) 208 H (75-99) mg/dL Phosphorus 5.5 H (2.5-4.5) mg/dL 11/11/17 Range/Units 08:43 WBC (3.8-10.6) k/uL RBC (3.80-5.40) m/uL Hgb (11.4-16.0) gm/dL Hct (34.0-46.0) % MCHC (31.0-37.0) g/dL RDW (11.5-15.5) % Neutrophils # (1.3-7.7) k/uL ABG pCO2 52 H (35-45) mmHg ABG pO2 61 L (83-108) mmHg ABG HCO3 29 H (21-25) mmol/L ABG Total CO2 30 H (19-24) mmol/L ABG O2 Saturation 88.9 L (94-97) % Sodium (137-145) mmol/L Potassium (3.5-5.1) mmol/L Chloride (98-107) mmol/L BUN (7-17) mg/dL Creatinine (0.52-1.04) mg/dL Glucose (74-99) mg/dL POC Glucose (mg/dL) (75-99) mg/dL Phosphorus (2.5-4.5) mg/dL Microbiology - Last 24 Hours (Table) 11/09/17 11:17 Urine Culture - Final Urine,Catheterized 11/09/17 10:22 Blood Culture - Preliminary Blood No Growth after 24 hours Assessment and Plan Assessment: #1 sepsis of unknown source at this point #2 possible ischemic colitis #3 acute blood loss, no signs of obvious GI bleeding, no plans for invasive workup #4 coronary artery disease, status post recent stenting of LAD and left circumflex #5 paroxysmal atrial fibrillation #6 end-stage renal disease, on hemodialysis Plan: From cardiology's perspective, continue Plavix and continue to hold anticoagulation. He reminded her hemoglobin and transfuse for hemoglobin less than 7. Patient does require hemodialysis today. We will continue to follow the patient provide further recommendations accordingly. [employer] note has been reviewed, I agree with a documented findings and plan of care. Patient was seen and examined.
--- NOTE | 2017-11-11 14:03 | P.PN ---
Subjective Progress Note Date: 11/11/17 Principal diagnosis: Acute sepsis of unclear etiology It is a 72-year-old female patient with end-stage renal disease currently on hemodialysis for an AV fistula in the left upper extremity was coming in with acute lethargy, weakness, fevers, chills, tachycardia and fatigue. The patient was suspected to be septic and she came in to the [facility] department. The daughter is noted the patient's blood sugars have been running high recently which could be another signs of an underlying infection/sepsis. The patient denied having any cough or sputum production. No pleurisy. No chest pain. No sore throat. No headaches. No neck stiffness. No dysuria frequency urgency. She has had previous urine checked infections with E. coli none of them being resistant microorganism. She has no open wounds or sores. She has some dry scabs in her lower extremities bilaterally yet there is no evidence of any cellulitis or soft tissue infection. No nausea. No vomiting. No diarrhea. She used to have a permacath in the past that was removed and currently she is using a fistula in the left upper extremity. Her white cell count is 22. Her hemoglobin is at 11.1. Her potassium level is at 6.8 and the patient is undergoing dialysis currently the [facility] department awaiting to be transferred to the ICU. She did have some lower blood pressure with a systolic in the mid 80s and she was given a 500 mL of bolus with dialysis. I asked him to give another liter bolus and dialysis. Her lactic acid level is at 4.9. She is receiving a 2K dialysis in regards to her hyperkalemia. On 11/10/2017, the patient is in the intensive care unit and she is being seen in follow-up. She is better compared to yesterday. She is afebrile hemodynamically stable. On and off she was having some lower blood pressure with a systolic blood pressure drop in the mid 80s. Her lactic acid level came up to 6.7 and based on that she was given additional liter of bolus and antibiotics was continued with a combination of Zosyn and vancomycin. On today' s evaluation, she is hemodynamically stable on no pressors. Nephrology saw the patient got IV fluids to KVO. She is afebrile. The patient had broad-spectrum antibiotics and the patient had cultures sent and the results are still pending for now. No positive cultures have been yielded yet. Meanwhile, the patient was treated for her hyperkalemia and she underwent dialysis yesterday and the follow-up potassium level is down to 4.9. CAT scan of the abdomen showed some nonspecific colitis involving the cecum and ascending colon which is probably inflammatory in nature. The patient does not have any significant abdominal pain. No nausea. No vomiting. No diarrhea. No previous history of any colitis being at infectious or C. diff colitis. No other complaints otherwise for now. She is resting comfortably in bed. No dialysis for today. The patient is seen again today 11/11/2017 in follow-up on the selective care unit. She is currently awake and alert. She is in some mild pulmonary distress. She is currently on the BiPAP and is feeling better. Blood gases on 35% FiO2 revealed a PaO2 of 61, pCO2 52 and a pH of 7.35. She is due for dialysis this morning. Current creatinine 5.10. He has remained afebrile. White count 12.4. Urine and blood cultures reveal no growth. She is currently on Zosyn and vancomycin. Objective - Vital Signs Vital signs: Vital Signs Temp 98.4 F 11/11/17 11:46 Pulse 74 11/11/17 11:46 Resp 20 11/11/17 11:46 BP 165/73 11/11/17 11:46 Pulse Ox 96 11/11/17 11:46 Intake & Output 11/10/17 11/11/17 11/11/17 18:59 06:59 18:59 Intake Total 2575.0 470 240 Output Total 50 55 75 Balance 2525.0 415 165 Weight 99.7 kg 93.5 kg Intake: IV 300 Sodium Chloride 0.9% 1, 300 000 ml @ 100 mls/hr IV . Q10H [facility] Rx#:[id number] Intake, IV Titration 775.0 50 Amount Piperacillin-Tazobactam 3 12.5 .375 gm In Dextrose/Water 1 50ml.bag @ 12.5 mls/hr IVPB ONCE [facility] Rx#: [id number] Piperacillin-Tazobactam 3 50 .375 gm In Dextrose/Water 1 50ml.bag @ 12.5 mls/hr IVPB Q12HR [facility] Rx#: [id number] Sodium Chloride 0.9% 1, 12.5 000 ml @ 999 mls/hr IV . Q1H1M ONE Rx#:[id number] Sodium Chloride 0.9% 500 500 ml @ 999 mls/hr IV .Q31M ONE Rx#:[id number] Vancomycin 1,500 mg In 250 Sodium Chloride 0.9% 250 ml @ 125 mls/hr IVPB ONCE ONE Rx#:[id number] Oral 1500 420 240 Output: Urine 50 55 75 Uretheral (Levy) 75 Other: Voiding Method Indwelling Catheter Indwelling Catheter # Voids 0 # Bowel Movements 0 - Exam Gen. appearance the patient is obese somewhat lethargic yet arousable and she was able to recognize myself. She denies having any acute respiratory distress and she is resting comfortably in bed as she is undergoing Hemodialysis. Head exam was generally normal. There was no scleral icterus or corneal arcus. Mucous membranes were moist. Neck was supple and without jugular venous distension, thyromegaly, or carotid bruits. Carotids were easily palpable bilaterally. There was no adenopathy. Lungs sounds are diminished bilaterally at it is clear and there is no wheezes or rhonchi or any crackles. Heart sounds are irregular, positive S1-S2 and there is a systolic ejection murmur grade 3/6 heard throughout the precordium. Abdominal exam revealed normal bowel sounds. The abdomen was soft, non-tender, and without masses, organomegaly, or appreciable enlargement of the abdominal aorta. Examination of the extremities revealed easily palpable radial, femoral and pedal pulses. There was no cyanosis, clubbing or edema. Examination of the skin revealed no evidence of significant rashes, suspicious appearing nevi or other concerning lesions. Neurologically the patient is awake and alert and there is no focal logical deficits Psychiatric intact - Labs CBC & Chem 7: 11/11/17 05:57 11/11/17 05:57 Labs: Abnormal Lab Results - Last 24 Hours (Table) 11/10/17 11/10/17 11/11/17 Range/Units 17:08 20:38 05:57 WBC (3.8-10.6) k/uL RBC (3.80-5.40) m/uL Hgb (11.4-16.0) gm/dL Hct (34.0-46.0) % MCHC (31.0-37.0) g/dL RDW (11.5-15.5) % Neutrophils # (1.3-7.7) k/uL ABG pCO2 (35-45) mmHg ABG pO2 (83-108) mmHg ABG HCO3 (21-25) mmol/L ABG Total CO2 (19-24) mmol/L ABG O2 Saturation (94-97) % Sodium 130 L (137-145) mmol/L Potassium 6.0 H (3.5-5.1) mmol/L Chloride 93 L (98-107) mmol/L BUN 42 H (7-17) mg/dL Creatinine 5.10 H* (0.52-1.04) mg/dL Glucose 184 H (74-99) mg/dL POC Glucose (mg/dL) 205 H 224 H (75-99) mg/dL Phosphorus 5.5 H (2.5-4.5) mg/dL 11/11/17 11/11/17 11/11/17 Range/Units 05:57 06:20 08:43 WBC 12.4 H (3.8-10.6) k/uL RBC 2.80 L (3.80-5.40) m/uL Hgb 8.3 L (11.4-16.0) gm/dL Hct 27.6 L (34.0-46.0) % MCHC 30.0 L (31.0-37.0) g/dL RDW 17.4 H (11.5-15.5) % Neutrophils # 9.9 H (1.3-7.7) k/uL ABG pCO2 52 H (35-45) mmHg ABG pO2 61 L (83-108) mmHg ABG HCO3 29 H (21-25) mmol/L ABG Total CO2 30 H (19-24) mmol/L ABG O2 Saturation 88.9 L (94-97) % Sodium (137-145) mmol/L Potassium (3.5-5.1) mmol/L Chloride (98-107) mmol/L BUN (7-17) mg/dL Creatinine (0.52-1.04) mg/dL Glucose (74-99) mg/dL POC Glucose (mg/dL) 208 H (75-99) mg/dL Phosphorus (2.5-4.5) mg/dL 11/11/17 Range/Units 11:46 WBC (3.8-10.6) k/uL RBC (3.80-5.40) m/uL Hgb (11.4-16.0) gm/dL Hct (34.0-46.0) % MCHC (31.0-37.0) g/dL RDW (11.5-15.5) % Neutrophils # (1.3-7.7) k/uL ABG pCO2 (35-45) mmHg ABG pO2 (83-108) mmHg ABG HCO3 (21-25) mmol/L ABG Total CO2 (19-24) mmol/L ABG O2 Saturation (94-97) % Sodium (137-145) mmol/L Potassium (3.5-5.1) mmol/L Chloride (98-107) mmol/L BUN (7-17) mg/dL Creatinine (0.52-1.04) mg/dL Glucose (74-99) mg/dL POC Glucose (mg/dL) 273 H (75-99) mg/dL Phosphorus (2.5-4.5) mg/dL Microbiology - Last 24 Hours (Table) 11/09/17 10:22 Blood Culture - Preliminary Blood No Growth after 48 hours 11/09/17 11:17 Urine Culture - Final Urine,Catheterized Assessment and Plan Assessment: Assessment 1 acute sepsis the exact source is not clear. The patient presents with fever, leukocytosis, lactic acidosis, tachycardia, and hypotension. In addition she has developed some degree of hyperglycemia related to underlying sepsis. Chest x-ray is not showing any acute source of an infection. Blood and urine cultures reveal no growth to date and the patient was started on empiric antibiotics. 2 hypotension secondary to above, the patient was given a total of 1.5 L through dialysis. The patient received more fluids if in the ICU patient received more than 3 L of IV fluids and she is currently on no pressors. She is hemodynamically stable with a systolic blood pressure in the mid 90s. She was running a lower blood pressure even on outpatient basis and this has been noted recently by the family. 3 End stage renal disease on hemodialysis with AV fistula in left upper extremity. The patient undergo hemodialysis today. 4 acute hyperkalemia with a potassium level of 6.8 currently on hemodialysis, and subsequent potassium level is down to 6.0 5 diabetes mellitus with sepsis induced hyperglycemia 6 history of hypertension with diastolic heart failure and hypertensive heart disease 7 paroxysmal atrial fibrillation 8 coronary artery disease with multivessel coronary artery disease involvement and the patient has declined bypass surgery in the past and she has had on and off episodes of acute non-ST segment elevation myocardial infarction is. 9 morbid obesity with a BMI of 37.3 10 diabetic peripheral neuropathy and nephropathy 11 hypertension 12 healed pressure sores and sacral decub ulcers 13 acid reflux 14 hyperlipidemia 15 chronic anemia 16 moderate aortic stenosis based on recent echocardiogram with a preserved LV function with an ejection fraction of 55-60% 17 nonspecific colitis involving the cecum and ascending colon. 18 obstructive sleep apnea severe maintenance. At a pressure of 12 cm of water. Plan The patient was seen and evaluated by Dr. Hanson. She is to be receiving hemodialysis shortly. This should help with her pulmonary status. We'll continue with BiPAP throughout the evening and during the day as needed. Continue empiric antibiotics. She is on IV Solu-Medrol. We will continue to follow and make further recommendations based on her clinical status. I, the cosigning physician, performed a history & physical examination of the patient. Lungs sounds have crackles in the bilateral posterior bases. Maintaining good O2 saturations in the 90s on 35% FiO2. I discussed the assessment and plan of care with my nurse practitioner, Aruna Aquino. I attest to the above note as dictated by her.
--- NOTE | 2017-11-11 16:33 | XR ---
EXAMINATION TYPE: XR chest 1V DATE OF EXAM: 11/11/2017 CLINICAL HISTORY: Difficulty breathing progress study. Postdialysis. TECHNIQUE: Single AP portable frontal view of the chest is obtained. COMPARISON: Chest x-ray from one day earlier and older studies. FINDINGS: There is persistent low lung volumes and cardiomegaly. There is interval improvement in ce ntral vascular congestion. No new focal airspace opacity, pleural effusion, or pneumothorax is identi fied. There is partial visualization of surgical hardware in the lumbar spine. IMPRESSION: Interval improvement in central vascular congestion after dialysis. Low lung volumes and cardiomegaly remain present.
[2017-11-11 16:54] LABS: Glucose,Whole Blood 222 mg/dL (75-99)
[2017-11-11] MEDS: DILTIAZEM ORAL 60 MG TAB PO SCH ×3 (17:00→21:14)
[2017-11-11] MEDS: METOPROLOL SUCCINATE (ER) 50 MG TAB.ER.24H PO SCH (17:01)
[2017-11-11 17:06] LABS: Iron Saturation 11.16 (12.00-45.00)
[2017-11-11 20:42] LABS: Glucose,Whole Blood 363 mg/dL (75-99)
[2017-11-12] MEDS: INSULIN ASPART 100 UNIT/ML 1 ML 10 ML VIAL SQ SCH ×5 (03:23→21:45)
[2017-11-12 05:38] LABS: Glucose,Whole Blood 359 mg/dL (75-99)
[2017-11-12 06:38] LABS: Anisocytosis Slight; Basophils % (A) 0 %; Eosinophils % (A) 0 %; HCT 27.9 % (34.0-46.0); HGB 8.6 gm/dL (11.4-16.0); Hypochromasia Marked; Lymphocytes # (A) 0.6 k/uL (1.0-4.8); Lymphocytes % (A) 8 %; MCH 30.1 pg (25.0-35.0); MCHC 30.7 g/dL (31.0-37.0); MCV 97.9 fL (80.0-100.0); Macrocytosis Slight; Mean Platelet Volume 8.2; Monocytes # (A) 0.2 k/uL (0-1.0); Monocytes % (A) 3 %; Neutrophils # (A) 6.7 k/uL (1.3-7.7); Neutrophils % (A) 89 %; Platelet Count 196 k/uL (150-450); RBC 2.85 m/uL (3.80-5.40); RDW 16.9 % (11.5-15.5); WBC 7.5 k/uL (3.8-10.6)
[2017-11-12] MEDS: PANTOPRAZOLE 40 MG TABLET PO SCH (06:57)
[2017-11-12] MEDS: methylPREDNISolone SOD SUCCI 125 MG/2 ML VIAL IV SCH ×4 (06:57→23:59)
[2017-11-12] MEDS: SEVELAMER 800 MG TAB PO SCH ×3 (07:16→17:31)
[2017-11-12 07:54] LABS: Calcium 9.1 mg/dL (8.4-10.2); Magnesium 2.4 mg/dL (1.6-2.3); Phosphorus 5.4 mg/dL (2.5-4.5); Potassium 5.2 mmol/L (3.5-5.1)
[2017-11-12 07:59] LABS: Vancomycin,Random 23.4 ug/mL
--- NOTE | 2017-11-12 08:18 | P.PN ---
Subjective Progress Note Date: 11/12/17 Principal diagnosis: Acute respiratory failure Patient is feeling much better since starting IV steroids and stated that she is at least 50% improved since yesterday currently on nasal cannula tolerating without difficulties patient stated that she is normally at home without oxygen and likes to be in bed more than in chair Objective - Vital Signs Vital signs: Vital Signs Temp 97.5 F L 11/12/17 04:00 Pulse 74 11/12/17 04:00 Resp 19 11/12/17 04:00 BP 147/67 11/12/17 04:00 Pulse Ox 91 L 11/12/17 07:32 Intake & Output 11/11/17 11/12/17 11/12/17 18:59 06:59 18:59 Intake Total 360 90 240 Output Total 75 0 Balance 285 90 240 Weight 85 kg Intake: IV 40 Invasive Line 1 20 Invasive Line 2 20 Intake, IV Titration 50 Amount Piperacillin-Tazobactam 3 50 .375 gm In Dextrose/Water 1 50ml.bag @ 12.5 mls/hr IVPB Q12HR [facility] Rx#: [id number] Oral 360 240 Output: Urine 75 0 Uretheral (Levy) 75 Other: Voiding Method Bedpan # Voids 0 0 # Bowel Movements 0 - Exam Gen.: in stated age, no acute distress Heart: Normal S1-S2 Lungs: Decreased air entry bilaterally Abdomen: Soft, no tenderness, positive bowel sounds in all 4 quadrant no guarding or rebound Skin: No new rash Psych: Alert and oriented 3 Neuro: No focal deficit - Labs CBC & Chem 7: 11/12/17 05:50 11/12/17 05:50 Labs: Abnormal Lab Results - Last 24 Hours (Table) 11/11/17 11/11/17 11/11/17 Range/Units 08:43 11:46 16:22 RBC (3.80-5.40) m/uL Hgb (11.4-16.0) gm/dL Hct (34.0-46.0) % MCHC (31.0-37.0) g/dL RDW (11.5-15.5) % Lymphocytes # (1.0-4.8) k/uL ABG pCO2 52 H (35-45) mmHg ABG pO2 61 L (83-108) mmHg ABG HCO3 29 H (21-25) mmol/L ABG Total CO2 30 H (19-24) mmol/L ABG O2 Saturation 88.9 L (94-97) % Sodium (137-145) mmol/L Potassium (3.5-5.1) mmol/L Chloride (98-107) mmol/L BUN (7-17) mg/dL Creatinine (0.52-1.04) mg/dL Glucose (74-99) mg/dL POC Glucose (mg/dL) 273 H 222 H (75-99) mg/dL Phosphorus (2.5-4.5) mg/dL Magnesium (1.6-2.3) mg/dL 11/11/17 11/12/17 11/12/17 Range/Units 20:41 05:36 05:50 RBC 2.85 L (3.80-5.40) m/uL Hgb 8.6 L (11.4-16.0) gm/dL Hct 27.9 L (34.0-46.0) % MCHC 30.7 L (31.0-37.0) g/dL RDW 16.9 H (11.5-15.5) % Lymphocytes # 0.6 L (1.0-4.8) k/uL ABG pCO2 (35-45) mmHg ABG pO2 (83-108) mmHg ABG HCO3 (21-25) mmol/L ABG Total CO2 (19-24) mmol/L ABG O2 Saturation (94-97) % Sodium (137-145) mmol/L Potassium (3.5-5.1) mmol/L Chloride (98-107) mmol/L BUN (7-17) mg/dL Creatinine (0.52-1.04) mg/dL Glucose (74-99) mg/dL POC Glucose (mg/dL) 363 H 359 H (75-99) mg/dL Phosphorus (2.5-4.5) mg/dL Magnesium (1.6-2.3) mg/dL 11/12/17 Range/Units 05:50 RBC (3.80-5.40) m/uL Hgb (11.4-16.0) gm/dL Hct (34.0-46.0) % MCHC (31.0-37.0) g/dL RDW (11.5-15.5) % Lymphocytes # (1.0-4.8) k/uL ABG pCO2 (35-45) mmHg ABG pO2 (83-108) mmHg ABG HCO3 (21-25) mmol/L ABG Total CO2 (19-24) mmol/L ABG O2 Saturation (94-97) % Sodium 135 L (137-145) mmol/L Potassium 5.2 H (3.5-5.1) mmol/L Chloride 96 L (98-107) mmol/L BUN 35 H (7-17) mg/dL Creatinine 4.20 H (0.52-1.04) mg/dL Glucose 303 H (74-99) mg/dL POC Glucose (mg/dL) (75-99) mg/dL Phosphorus 5.4 H (2.5-4.5) mg/dL Magnesium 2.4 H (1.6-2.3) mg/dL Microbiology - Last 24 Hours (Table) 11/09/17 10:22 Blood Culture - Preliminary Blood No Growth after 48 hours Assessment and Plan Plan: 1. Acute respiratory failure with hypoxia currently on BiPAP. 2. Sepsis resolved 3. Debility and deconditioning. 4. Electrolyte imbalance area 5. End-stage renal disease on hemodialysis. 6. COPD with acute exacerbation. 7. Questionable colitis. Patient seems to be improving overall and currently off BiPAP we will encouraged to use Dove I BiPAP on as-needed basis continue IV steroids continue broad-spectrum antibiotics and follow up on culture results plan discussed with patient and critical care physician who is agreeable to the current treatment plan and her potassium has improved and patient currently is followed by nephrology. Patient is stable for transfer to medical floor with telemetry. Plan discussed with the nursing staff
--- NOTE | 2017-11-12 09:12 | P.PN ---
Subjective Patient is seen in follow-up for end-stage renal disease. She is maintained on hemodialysis on a Monday schedule via left upper extremity AV fistula. She currently denies any diarrhea. She is tolerating oral intake. Tolerated HD well yesterday. Vital signs are stable. General: The patient appeared well nourished and normally developed. HEENT: Head exam is unremarkable. Neck is without jugular venous distension. LUNGS: Lungs are clear to auscultation and percussion. Breath sounds decreased. HEART: Rate and Rhythm are regular. First and second heart sounds normal. No murmurs, rubs or gallops. ABDOMEN: Abdominal exam reveals normal bowel sounds. Non-tender and non- distended. No evidence of peritonitis. EXTREMITITES: No clubbing, cyanosis, or edema. Objective - Vital Signs Vital signs: Vital Signs Temp 97.5 F L 11/12/17 04:00 Pulse 74 11/12/17 04:00 Resp 19 11/12/17 04:00 BP 147/67 11/12/17 04:00 Pulse Ox 91 L 11/12/17 07:32 Intake & Output 11/11/17 11/12/17 11/12/17 18:59 06:59 18:59 Intake Total 360 90 240 Output Total 75 0 Balance 285 90 240 Weight 85 kg Intake: IV 40 Invasive Line 1 20 Invasive Line 2 20 Intake, IV Titration 50 Amount Piperacillin-Tazobactam 3 50 .375 gm In Dextrose/Water 1 50ml.bag @ 12.5 mls/hr IVPB Q12HR [facility] Rx#: [id number] Oral 360 240 Output: Urine 75 0 Uretheral (Levy) 75 Other: Voiding Method Bedpan # Voids 0 0 # Bowel Movements 0 - Labs CBC & Chem 7: 11/12/17 05:50 11/12/17 05:50 Labs: Abnormal Lab Results - Last 24 Hours (Table) 11/11/17 11/11/17 11/11/17 Range/Units 11:46 16:22 20:41 RBC (3.80-5.40) m/uL Hgb (11.4-16.0) gm/dL Hct (34.0-46.0) % MCHC (31.0-37.0) g/dL RDW (11.5-15.5) % Lymphocytes # (1.0-4.8) k/uL Sodium (137-145) mmol/L Potassium (3.5-5.1) mmol/L Chloride (98-107) mmol/L BUN (7-17) mg/dL Creatinine (0.52-1.04) mg/dL Glucose (74-99) mg/dL POC Glucose (mg/dL) 273 H 222 H 363 H (75-99) mg/dL Phosphorus (2.5-4.5) mg/dL Magnesium (1.6-2.3) mg/dL 11/12/17 11/12/17 11/12/17 Range/Units 05:36 05:50 05:50 RBC 2.85 L (3.80-5.40) m/uL Hgb 8.6 L (11.4-16.0) gm/dL Hct 27.9 L (34.0-46.0) % MCHC 30.7 L (31.0-37.0) g/dL RDW 16.9 H (11.5-15.5) % Lymphocytes # 0.6 L (1.0-4.8) k/uL Sodium 135 L (137-145) mmol/L Potassium 5.2 H (3.5-5.1) mmol/L Chloride 96 L (98-107) mmol/L BUN 35 H (7-17) mg/dL Creatinine 4.20 H (0.52-1.04) mg/dL Glucose 303 H (74-99) mg/dL POC Glucose (mg/dL) 359 H (75-99) mg/dL Phosphorus 5.4 H (2.5-4.5) mg/dL Magnesium 2.4 H (1.6-2.3) mg/dL Microbiology - Last 24 Hours (Table) 11/09/17 10:22 Blood Culture - Preliminary Blood No Growth after 48 hours Assessment and Plan Plan: Assessment: 1. End-stage renal disease maintained on hemodialysis on a Monday schedule via left upper extremity AV fistula. 2. Hypotension status post IV fluids. Maintained on midodrine. Resolved. 3. Colitis in the cecum and ascending colon noted on CAT scan maintained on antibiotics. Possibly ischemic colitis. Not having diarrhea. GI following as well. 4. Anemia of chronic kidney disease. Rule out iron deficiency. No active bleeding noted. 5. 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 Phosphorus level 5.5. 6. Diastolic CHF. 7. Hyperkalemia secondary to chronic kidney disease. Improved. postdialysis. Plan: Hemodialysis Monday. F/u iron studies. Maintain Aranesp. Low potassium diet.
--- NOTE | 2017-11-12 09:13 | P.PN ---
Subjective Progress Note Date: 11/12/17 Principal diagnosis: CAD/paroxysmal atrial fibrillation This is a pleasant 72-year-old female patient who sees Dr. Combs in the office. She hasn't passed medical history significant for coronary artery disease stenting of the LAD in July 2017 and stenting of the left circumflex in August 2017, end-stage renal disease on hemodialysis, hypertension, paroxysmal atrial fibrillation and dyslipidemia as well as diabetes. She was admitted to the hospital for overall not feeling well. Family noticed progressive weakness and she was feeling very tired and fatigued and unable to get up from a sitting position. She also had high blood sugars at home. She did not have any shortness of breath, chest discomfort. Patient was febrile at home. Because of suspected sepsis the patient was admitted to intensive care unit and cultures have been done. CT scan of the abdomen and pelvis showed possible ischemic colitis. We were asked see the patient in consult because of a hemoglobin drop and patient is on anticoagulation for PAF. No obvious upper or lower GI bleeding. Eliquis has been on hold and plavix continues. On follow-up with the patient today, she is feeling much better than yesterday. She is less congested after she underwent dialysis yesterday. Denies having any chest pain or chest discomfort. The hemoglobin continues to be around 8. I would continue holding oral anticoagulation for additional 24 hours and continue monitor the hemoglobin. Continue the Plavix. Objective - Vital Signs Vital signs: Vital Signs Temp 97.5 F L 11/12/17 04:00 Pulse 74 11/12/17 04:00 Resp 19 11/12/17 04:00 BP 147/67 11/12/17 04:00 Pulse Ox 91 L 11/12/17 07:32 Intake & Output 11/11/17 11/12/17 11/12/17 18:59 06:59 18:59 Intake Total 360 90 240 Output Total 75 0 Balance 285 90 240 Weight 85 kg Intake: IV 40 Invasive Line 1 20 Invasive Line 2 20 Intake, IV Titration 50 Amount Piperacillin-Tazobactam 3 50 .375 gm In Dextrose/Water 1 50ml.bag @ 12.5 mls/hr IVPB Q12HR [facility] Rx#: [id number] Oral 360 240 Output: Urine 75 0 Uretheral (Levy) 75 Other: Voiding Method Bedpan # Voids 0 0 # Bowel Movements 0 - Constitutional General appearance: Present: no acute distress - Respiratory Respiratory: bilateral: CTA - Cardiovascular Rhythm: regular Heart sounds: normal: S1, S2 - Labs CBC & Chem 7: 11/12/17 05:50 11/12/17 05:50 Labs: Abnormal Lab Results - Last 24 Hours (Table) 11/11/17 11/11/17 11/11/17 Range/Units 11:46 16:22 20:41 RBC (3.80-5.40) m/uL Hgb (11.4-16.0) gm/dL Hct (34.0-46.0) % MCHC (31.0-37.0) g/dL RDW (11.5-15.5) % Lymphocytes # (1.0-4.8) k/uL Sodium (137-145) mmol/L Potassium (3.5-5.1) mmol/L Chloride (98-107) mmol/L BUN (7-17) mg/dL Creatinine (0.52-1.04) mg/dL Glucose (74-99) mg/dL POC Glucose (mg/dL) 273 H 222 H 363 H (75-99) mg/dL Phosphorus (2.5-4.5) mg/dL Magnesium (1.6-2.3) mg/dL 11/12/17 11/12/17 11/12/17 Range/Units 05:36 05:50 05:50 RBC 2.85 L (3.80-5.40) m/uL Hgb 8.6 L (11.4-16.0) gm/dL Hct 27.9 L (34.0-46.0) % MCHC 30.7 L (31.0-37.0) g/dL RDW 16.9 H (11.5-15.5) % Lymphocytes # 0.6 L (1.0-4.8) k/uL Sodium 135 L (137-145) mmol/L Potassium 5.2 H (3.5-5.1) mmol/L Chloride 96 L (98-107) mmol/L BUN 35 H (7-17) mg/dL Creatinine 4.20 H (0.52-1.04) mg/dL Glucose 303 H (74-99) mg/dL POC Glucose (mg/dL) 359 H (75-99) mg/dL Phosphorus 5.4 H (2.5-4.5) mg/dL Magnesium 2.4 H (1.6-2.3) mg/dL Microbiology - Last 24 Hours (Table) 11/09/17 10:22 Blood Culture - Preliminary Blood No Growth after 48 hours Assessment and Plan Assessment: Assessment #1 sepsis of unknown source at this point. #2 possible ischemic colitis #3 acute blood loss. GI bleeding to be ruled out #4 coronary artery disease and status post a stenting of the LAD and left circumflex #5 paroxysmal atrial fibrillation #6 end Stage renal disease on hemodialysis Plan #1 continue the Plavix and continue holding oral anticoagulation #2 continue monitor the hemoglobin #3 follow-up with the patient.
[2017-11-12] MEDS: HEPARIN SODIUM,PORCINE 5,000 UNIT/ML 1 ML VIAL SQ SCH ×2 (09:51→21:53)
[2017-11-12] MEDS: PIPERACILLIN-TAZOBACTAM 3.375 GM in DEXTROSE/WATER 1 50ML.BAG IVPB SCH ×2 (09:51→21:53)
[2017-11-12] MEDS: ISOSORBIDE MONONITRATE ER 30 MG TAB.ER.24H PO SCH (09:52)
[2017-11-12] MEDS: AMIODARONE 100 MG TAB PO SCH (09:52)
[2017-11-12] MEDS: CLOPIDOGREL 75 MG TAB PO SCH (09:52)
[2017-11-12] MEDS: EZETIMIBE 10 MG TAB PO SCH (09:52)
[2017-11-12] MEDS: MAGNESIUM OXIDE 400 MG TAB PO SCH (09:52)
[2017-11-12] MEDS: GABAPENTIN 300 MG CAP PO SCH ×2 (09:52→21:53)
[2017-11-12] MEDS: CHOLECALCIFEROL 1,000 UNIT TAB PO SCH (09:52)
[2017-11-12] MEDS: LORATADINE 10 MG TAB PO SCH (09:52)
[2017-11-12] MEDS: FERROUS SULFATE 325 MG TAB PO SCH (09:52)
[2017-11-12] MEDS: METOPROLOL SUCCINATE (ER) 50 MG TAB.ER.24H PO SCH (09:52)
[2017-11-12] MEDS: DILTIAZEM ORAL 60 MG TAB PO SCH ×3 (09:52→21:53)
[2017-11-12] MEDS: DULoxetine HCL 60 MG CAPSULE.DR PO SCH (09:52)
--- NOTE | 2017-11-12 09:57 | P.PN ---
Subjective Progress Note Date: 11/12/17 It is a 72-year-old female patient with end-stage renal disease currently on hemodialysis for an AV fistula in the left upper extremity was coming in with acute lethargy, weakness, fevers, chills, tachycardia and fatigue. The patient was suspected to be septic and she came in to the [facility] department. The daughter is noted the patient's blood sugars have been running high recently which could be another signs of an underlying infection/sepsis. The patient denied having any cough or sputum production. No pleurisy. No chest pain. No sore throat. No headaches. No neck stiffness. No dysuria frequency urgency. She has had previous urine checked infections with E. coli none of them being resistant microorganism. She has no open wounds or sores. She has some dry scabs in her lower extremities bilaterally yet there is no evidence of any cellulitis or soft tissue infection. No nausea. No vomiting. No diarrhea. She used to have a permacath in the past that was removed and currently she is using a fistula in the left upper extremity. Her white cell count is 22. Her hemoglobin is at 11.1. Her potassium level is at 6.8 and the patient is undergoing dialysis currently the [facility] department awaiting to be transferred to the ICU. She did have some lower blood pressure with a systolic in the mid 80s and she was given a 500 mL of bolus with dialysis. I asked him to give another liter bolus and dialysis. Her lactic acid level is at 4.9. She is receiving a 2K dialysis in regards to her hyperkalemia. On 11/10/2017, the patient is in the intensive care unit and she is being seen in follow-up. She is better compared to yesterday. She is afebrile hemodynamically stable. On and off she was having some lower blood pressure with a systolic blood pressure drop in the mid 80s. Her lactic acid level came up to 6.7 and based on that she was given additional liter of bolus and antibiotics was continued with a combination of Zosyn and vancomycin. On today' s evaluation, she is hemodynamically stable on no pressors. Nephrology saw the patient got IV fluids to KVO. She is afebrile. The patient had broad-spectrum antibiotics and the patient had cultures sent and the results are still pending for now. No positive cultures have been yielded yet. Meanwhile, the patient was treated for her hyperkalemia and she underwent dialysis yesterday and the follow-up potassium level is down to 4.9. CAT scan of the abdomen showed some nonspecific colitis involving the cecum and ascending colon which is probably inflammatory in nature. The patient does not have any significant abdominal pain. No nausea. No vomiting. No diarrhea. No previous history of any colitis being at infectious or C. diff colitis. No other complaints otherwise for now. She is resting comfortably in bed. No dialysis for today. On today's evaluation, this 72-year-old here patient is feeling well. She got dialyzed yesterday and total of 4 L of fluid was removed. She is hemodynamically stable. She is afebrile. White cell count is normal. No mental status change. No shortness of breath. She remains on IV antibiotics with a combination of Zosyn and vancomycin. This is empiric antibiotic coverage suspecting an underlying septicemia. All of the cultures of been negative thus far. The patient is currently on CPAP at a pressure of 12 cm of water and this is at original setting that she uses even on outpatient basis. Nephrology is on the case. Objective - Vital Signs Vital signs: Vital Signs Temp 97.5 F L 11/12/17 04:00 Pulse 74 11/12/17 04:00 Resp 19 11/12/17 04:00 BP 147/67 11/12/17 04:00 Pulse Ox 91 L 11/12/17 07:32 Intake & Output 11/11/17 11/12/17 11/12/17 18:59 06:59 18:59 Intake Total 360 90 240 Output Total 75 0 Balance 285 90 240 Weight 85 kg Intake: IV 40 Invasive Line 1 20 Invasive Line 2 20 Intake, IV Titration 50 Amount Piperacillin-Tazobactam 3 50 .375 gm In Dextrose/Water 1 50ml.bag @ 12.5 mls/hr IVPB Q12HR [facility] Rx#: [id number] Oral 360 240 Output: Urine 75 0 Uretheral (Levy) 75 Other: Voiding Method Bedpan # Voids 0 0 # Bowel Movements 0 - Exam Gen. appearance the patient is obese , comfortable likely distress Head exam was generally normal. There was no scleral icterus or corneal arcus. Mucous membranes were moist. Neck was supple and without jugular venous distension, thyromegaly, or carotid bruits. Carotids were easily palpable bilaterally. There was no adenopathy. Lungs sounds are diminished bilaterally at it is clear and there is no wheezes or rhonchi or any crackles. Heart sounds are irregular, positive S1-S2 and there is a systolic ejection murmur grade 3/6 heard throughout the precordium. Abdominal exam revealed normal bowel sounds. The abdomen was soft, non-tender, and without masses, organomegaly, or appreciable enlargement of the abdominal aorta. Examination of the extremities revealed easily palpable radial, femoral and pedal pulses. There was no cyanosis, clubbing or edema. Examination of the skin revealed no evidence of significant rashes, suspicious appearing nevi or other concerning lesions. Neurologically the patient is awake and alert and there is no focal logical deficits Psychiatrically intact - Labs CBC & Chem 7: 11/12/17 05:50 11/12/17 05:50 Labs: Abnormal Lab Results - Last 24 Hours (Table) 11/11/17 11/11/17 11/11/17 Range/Units 05:57 11:46 16:22 RBC (3.80-5.40) m/uL Hgb (11.4-16.0) gm/dL Hct (34.0-46.0) % MCHC (31.0-37.0) g/dL RDW (11.5-15.5) % Lymphocytes # (1.0-4.8) k/uL Sodium (137-145) mmol/L Potassium (3.5-5.1) mmol/L Chloride (98-107) mmol/L BUN (7-17) mg/dL Creatinine (0.52-1.04) mg/dL Glucose (74-99) mg/dL POC Glucose (mg/dL) 273 H 222 H (75-99) mg/dL Phosphorus (2.5-4.5) mg/dL Magnesium (1.6-2.3) mg/dL Iron 28 L (50-170) ug/dL Iron Saturation 11.16 L (12.00-45.00) Ferritin 542.4 H (10.0-291.0) ng/mL 11/11/17 11/12/17 11/12/17 Range/Units 20:41 05:36 05:50 RBC 2.85 L (3.80-5.40) m/uL Hgb 8.6 L (11.4-16.0) gm/dL Hct 27.9 L (34.0-46.0) % MCHC 30.7 L (31.0-37.0) g/dL RDW 16.9 H (11.5-15.5) % Lymphocytes # 0.6 L (1.0-4.8) k/uL Sodium (137-145) mmol/L Potassium (3.5-5.1) mmol/L Chloride (98-107) mmol/L BUN (7-17) mg/dL Creatinine (0.52-1.04) mg/dL Glucose (74-99) mg/dL POC Glucose (mg/dL) 363 H 359 H (75-99) mg/dL Phosphorus (2.5-4.5) mg/dL Magnesium (1.6-2.3) mg/dL Iron (50-170) ug/dL Iron Saturation (12.00-45.00) Ferritin (10.0-291.0) ng/mL 11/12/17 Range/Units 05:50 RBC (3.80-5.40) m/uL Hgb (11.4-16.0) gm/dL Hct (34.0-46.0) % MCHC (31.0-37.0) g/dL RDW (11.5-15.5) % Lymphocytes # (1.0-4.8) k/uL Sodium 135 L (137-145) mmol/L Potassium 5.2 H (3.5-5.1) mmol/L Chloride 96 L (98-107) mmol/L BUN 35 H (7-17) mg/dL Creatinine 4.20 H (0.52-1.04) mg/dL Glucose 303 H (74-99) mg/dL POC Glucose (mg/dL) (75-99) mg/dL Phosphorus 5.4 H (2.5-4.5) mg/dL Magnesium 2.4 H (1.6-2.3) mg/dL Iron (50-170) ug/dL Iron Saturation (12.00-45.00) Ferritin (10.0-291.0) ng/mL Microbiology - Last 24 Hours (Table) 11/09/17 10:22 Blood Culture - Preliminary Blood No Growth after 48 hours Assessment and Plan Plan: Assessment 1 acute sepsis the exact source is not clear. The patient was treated with broad-spectrum antibiotics and currently she is afebrile hemodynamically stable and all of the cultures of been negative. Fever has resolved. 2 hypotension secondary to above, recovered with fluid resuscitation and antibiotics 3 End stage renal disease on hemodialysis with AV fistula in left upper extremity. The patient underwent hemodialysis with removal of 4 L of fluid yesterday 4 acute hyperkalemia with a potassium level of 6.8 currently on hemodialysis, and subsequent potassium level is down to 5.2 5 diabetes mellitus with sepsis induced hyperglycemia 6 history of hypertension with diastolic heart failure and hypertensive heart disease 7 paroxysmal atrial fibrillation 8 coronary artery disease with multivessel coronary artery disease involvement and the patient has declined bypass surgery in the past and she has had on and off episodes of acute non-ST segment elevation myocardial infarction is. 9 morbid obesity with a BMI of 37.3 10 diabetic peripheral neuropathy and nephropathy 11 hypertension 12 healed pressure sores and sacral decub ulcers 13 acid reflux 14 hyperlipidemia 15 chronic anemia 16 moderate aortic stenosis based on recent echocardiogram with a preserved LV function with an ejection fraction of 55-60% 17 nonspecific colitis involving the cecum and ascending colon. 18 obstructive sleep apnea severe maintenance. At a pressure of 12 cm of water. Plan Continue empiric antibiotic coverage. Continue monitoring the patient's progress. CPAP therapy at a pressure of 12. The findings on the case. Periodic dialysis TTS. We'll follow.
--- NOTE | 2017-11-12 09:58 | XR ---
EXAMINATION TYPE: XR chest 1V DATE OF EXAM: 11/12/2017 HISTORY: HF. REFERENCE: Previous study dated 11/11/2017. FINDINGS: The heart is enlarged. There is mild vascular congestion and mild interstitial change. Ther e is blunting of both CP angles and I could not exclude small effusions. 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 IMPRESSION: FINDINGS MOST CONSISTENT WITH MILD HEART FAILURE.
[2017-11-12 11:51] LABS: Glucose,Whole Blood 462 mg/dL (75-99)
[2017-11-12 16:40] LABS: Glucose,Whole Blood 500 mg/dL (75-99)
[2017-11-12] MEDS ORDERED: INSULIN REGULAR BOLUS (FROM DRIP BAG) IV ONE (17:37)
[2017-11-12] MEDS: INSULIN REGULAR 100 UNIT in SODIUM CHLORIDE 0.9% 100 ML IV SCH ×2 (18:20→21:53)
[2017-11-12 19:14] LABS: Glucose,Whole Blood 458 mg/dL (75-99)
[2017-11-12 19:45] LABS: Glucose,Whole Blood 391 mg/dL (75-99)
[2017-11-12 20:33] LABS: Glucose,Whole Blood 329 mg/dL (75-99)
[2017-11-12 21:09] LABS: Glucose,Whole Blood 276 mg/dL (75-99)
[2017-11-12 21:50] LABS: Glucose,Whole Blood 208 mg/dL (75-99)
[2017-11-12 23:54] LABS: Glucose,Whole Blood 152 mg/dL (75-99)
[2017-11-13 02:19] LABS: Glucose,Whole Blood 159 mg/dL (75-99)
[2017-11-13] MEDS: INSULIN ASPART 100 UNIT/ML 1 ML 10 ML VIAL SQ SCH ×8 (04:16→20:44)
[2017-11-13 04:17] LABS: Glucose,Whole Blood 166 mg/dL (75-99)
[2017-11-13 05:56] LABS: Glucose,Whole Blood 188 mg/dL (75-99)
[2017-11-13] MEDS: methylPREDNISolone SOD SUCCI 125 MG/2 ML VIAL IV SCH ×3 (06:02→17:36)
[2017-11-13 06:03] LABS: Anisocytosis Slight; Basophils % (A) 0 %; Eosinophils % (A) 0 %; HCT 28.2 % (34.0-46.0); HGB 8.8 gm/dL (11.4-16.0); Hypochromasia Moderate; Lymphocytes # (A) 0.8 k/uL (1.0-4.8); Lymphocytes % (A) 5 %; MCH 30.3 pg (25.0-35.0); MCHC 31.4 g/dL (31.0-37.0); MCV 96.4 fL (80.0-100.0); Macrocytosis Slight; Monocytes # (A) 0.4 k/uL (0-1.0); Monocytes % (A) 3 %; Neutrophils # (A) 13.9 k/uL (1.3-7.7); Neutrophils % (A) 91 %; Platelet Count 266 k/uL (150-450); RBC 2.92 m/uL (3.80-5.40); RDW 17.1 % (11.5-15.5); WBC 15.2 k/uL (3.8-10.6)
[2017-11-13 06:17] LABS: Calcium 9.2 mg/dL (8.4-10.2); Magnesium 2.5 mg/dL (1.6-2.3); Phosphorus 6.1 mg/dL (2.5-4.5); Potassium 5.7 mmol/L (3.5-5.1)
[2017-11-13 06:22] LABS: Vancomycin,Random 22.4 ug/mL
[2017-11-13] MEDS: SEVELAMER 800 MG TAB PO SCH ×3 (06:44→17:36)
[2017-11-13] MEDS: PANTOPRAZOLE 40 MG TABLET PO SCH (06:44)
[2017-11-13] MEDS ORDERED: DEXTROSE 50%-WATER 50 ML SYRINGE IVP STA (07:42)
[2017-11-13] MEDS ORDERED: INSULIN REGULAR 100 UNIT/ML VIAL IV ONE (07:42)
--- NOTE | 2017-11-13 08:02 | P.PN ---
Subjective Patient is seen in follow-up for end-stage renal disease. She is maintained on hemodialysis on a Monday schedule via left upper extremity AV fistula. She currently denies any diarrhea. She is tolerating oral intake. Feels weak and is requesting physical therapy. Vital signs are stable. General: The patient appeared well nourished and normally developed. HEENT: Head exam is unremarkable. Neck is without jugular venous distension. LUNGS: Lungs are clear to auscultation and percussion. Breath sounds decreased. HEART: Rate and Rhythm are regular. First and second heart sounds normal. No murmurs, rubs or gallops. ABDOMEN: Abdominal exam reveals normal bowel sounds. Non-tender and non- distended. No evidence of peritonitis. EXTREMITITES: No clubbing, cyanosis, or edema. Objective - Vital Signs Vital signs: Vital Signs Temp 97.5 F L 11/13/17 04:00 Pulse 65 11/13/17 04:00 Resp 18 11/13/17 04:00 BP 137/59 11/13/17 04:00 Pulse Ox 96 11/13/17 07:37 Intake & Output 11/12/17 11/13/17 11/13/17 18:59 06:59 18:59 Intake Total 600 85.428 Balance 600 85.428 Weight 93 kg Intake: Intake, IV Titration 85.428 Amount Insulin Regular 100 unit 85.428 In Sodium Chloride 0.9% 100 ml @ Titrate IV .Q0M [facility] Rx#:[id number] Oral 600 Other: Voiding Method Bedpan Bedpan # Voids 0 0 0 - Labs CBC & Chem 7: 11/13/17 05:32 11/13/17 05:32 Labs: Abnormal Lab Results - Last 24 Hours (Table) 11/11/17 11/12/17 11/12/17 Range/Units 05:57 05:50 11:31 WBC (3.8-10.6) k/uL RBC (3.80-5.40) m/uL Hgb (11.4-16.0) gm/dL Hct (34.0-46.0) % RDW (11.5-15.5) % Neutrophils # (1.3-7.7) k/uL Lymphocytes # (1.0-4.8) k/uL Sodium 135 L (137-145) mmol/L Potassium 5.2 H (3.5-5.1) mmol/L Chloride 96 L (98-107) mmol/L BUN 35 H (7-17) mg/dL Creatinine 4.20 H (0.52-1.04) mg/dL Glucose 303 H (74-99) mg/dL POC Glucose (mg/dL) 462 H (75-99) mg/dL Phosphorus 5.4 H (2.5-4.5) mg/dL Magnesium 2.4 H (1.6-2.3) mg/dL Iron 28 L (50-170) ug/dL Iron Saturation 11.16 L (12.00-45.00) Ferritin 542.4 H (10.0-291.0) ng/mL 11/12/17 11/12/17 11/12/17 Range/Units 16:36 17:00 19:02 WBC (3.8-10.6) k/uL RBC (3.80-5.40) m/uL Hgb (11.4-16.0) gm/dL Hct (34.0-46.0) % RDW (11.5-15.5) % Neutrophils # (1.3-7.7) k/uL Lymphocytes # (1.0-4.8) k/uL Sodium (137-145) mmol/L Potassium (3.5-5.1) mmol/L Chloride (98-107) mmol/L BUN (7-17) mg/dL Creatinine (0.52-1.04) mg/dL Glucose 483 H* (74-99) mg/dL POC Glucose (mg/dL) 500 H 458 H (75-99) mg/dL Phosphorus (2.5-4.5) mg/dL Magnesium (1.6-2.3) mg/dL Iron (50-170) ug/dL Iron Saturation (12.00-45.00) Ferritin (10.0-291.0) ng/mL 11/12/17 11/12/17 11/12/17 Range/Units 19:43 20:31 21:07 WBC (3.8-10.6) k/uL RBC (3.80-5.40) m/uL Hgb (11.4-16.0) gm/dL Hct (34.0-46.0) % RDW (11.5-15.5) % Neutrophils # (1.3-7.7) k/uL Lymphocytes # (1.0-4.8) k/uL Sodium (137-145) mmol/L Potassium (3.5-5.1) mmol/L Chloride (98-107) mmol/L BUN (7-17) mg/dL Creatinine (0.52-1.04) mg/dL Glucose (74-99) mg/dL POC Glucose (mg/dL) 391 H 329 H 276 H (75-99) mg/dL Phosphorus (2.5-4.5) mg/dL Magnesium (1.6-2.3) mg/dL Iron (50-170) ug/dL Iron Saturation (12.00-45.00) Ferritin (10.0-291.0) ng/mL 11/12/17 11/12/17 11/13/17 Range/Units 21:48 23:53 02:18 WBC (3.8-10.6) k/uL RBC (3.80-5.40) m/uL Hgb (11.4-16.0) gm/dL Hct (34.0-46.0) % RDW (11.5-15.5) % Neutrophils # (1.3-7.7) k/uL Lymphocytes # (1.0-4.8) k/uL Sodium (137-145) mmol/L Potassium (3.5-5.1) mmol/L Chloride (98-107) mmol/L BUN (7-17) mg/dL Creatinine (0.52-1.04) mg/dL Glucose (74-99) mg/dL POC Glucose (mg/dL) 208 H 152 H 159 H (75-99) mg/dL Phosphorus (2.5-4.5) mg/dL Magnesium (1.6-2.3) mg/dL Iron (50-170) ug/dL Iron Saturation (12.00-45.00) Ferritin (10.0-291.0) ng/mL 11/13/17 11/13/17 11/13/17 Range/Units 04:15 05:32 05:32 WBC 15.2 H (3.8-10.6) k/uL RBC 2.92 L (3.80-5.40) m/uL Hgb 8.8 L (11.4-16.0) gm/dL Hct 28.2 L (34.0-46.0) % RDW 17.1 H (11.5-15.5) % Neutrophils # 13.9 H (1.3-7.7) k/uL Lymphocytes # 0.8 L (1.0-4.8) k/uL Sodium 132 L (137-145) mmol/L Potassium 5.7 H (3.5-5.1) mmol/L Chloride 94 L (98-107) mmol/L BUN 59 H (7-17) mg/dL Creatinine 5.60 H* (0.52-1.04) mg/dL Glucose 154 H (74-99) mg/dL POC Glucose (mg/dL) 166 H (75-99) mg/dL Phosphorus 6.1 H (2.5-4.5) mg/dL Magnesium 2.5 H (1.6-2.3) mg/dL Iron (50-170) ug/dL Iron Saturation (12.00-45.00) Ferritin (10.0-291.0) ng/mL 11/13/17 Range/Units 05:55 WBC (3.8-10.6) k/uL RBC (3.80-5.40) m/uL Hgb (11.4-16.0) gm/dL Hct (34.0-46.0) % RDW (11.5-15.5) % Neutrophils # (1.3-7.7) k/uL Lymphocytes # (1.0-4.8) k/uL Sodium (137-145) mmol/L Potassium (3.5-5.1) mmol/L Chloride (98-107) mmol/L BUN (7-17) mg/dL Creatinine (0.52-1.04) mg/dL Glucose (74-99) mg/dL POC Glucose (mg/dL) 188 H (75-99) mg/dL Phosphorus (2.5-4.5) mg/dL Magnesium (1.6-2.3) mg/dL Iron (50-170) ug/dL Iron Saturation (12.00-45.00) Ferritin (10.0-291.0) ng/mL Microbiology - Last 24 Hours (Table) 07/12/18 10:22 Blood Culture - Preliminary Blood No Growth after 72 hours Assessment and Plan Plan: Assessment: 1. End-stage renal disease maintained on hemodialysis on a Monday schedule via left upper extremity AV fistula. 2. Hypotension status post IV fluids. Maintained on midodrine. Resolved. 3. Colitis in the cecum and ascending colon noted on CAT scan maintained on antibiotics. Possibly ischemic colitis. Not having diarrhea. GI following as well. 4. Anemia of chronic kidney disease. Iron deficiency noted. No active bleeding noted. 5. 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 Phosphorus level 5.5. 6. Diastolic CHF. 7. Hyperkalemia secondary to chronic kidney disease. Plan: Short 2 hour treatment of hemodialysis today. Ferrlecit 125 mg IV daily for 3 days. First dose today. Maintain Aranesp. Low potassium diet.
[2017-11-13 08:23] LABS: Glucose,Whole Blood 227 mg/dL (75-99)
[2017-11-13] MEDS: GABAPENTIN 300 MG CAP PO SCH ×2 (09:14→20:30)
[2017-11-13] MEDS: DILTIAZEM ORAL 60 MG TAB PO SCH ×3 (09:14→20:30)
[2017-11-13] MEDS: SODIUM FERRIC GLUCONAT-SUCROSE 125 MG in SODIUM CHLORIDE 0.9% 100 ML IVPB SCH (09:15)
[2017-11-13] MEDS: DULoxetine HCL 60 MG CAPSULE.DR PO SCH (09:15)
[2017-11-13] MEDS: CLOPIDOGREL 75 MG TAB PO SCH (09:15)
[2017-11-13] MEDS: EZETIMIBE 10 MG TAB PO SCH (09:15)
[2017-11-13] MEDS: CHOLECALCIFEROL 1,000 UNIT TAB PO SCH (09:15)
[2017-11-13] MEDS: FERROUS SULFATE 325 MG TAB PO SCH (09:15)
[2017-11-13] MEDS: AMIODARONE 100 MG TAB PO SCH (09:15)
[2017-11-13] MEDS: LORATADINE 10 MG TAB PO SCH (09:16)
[2017-11-13] MEDS: MAGNESIUM OXIDE 400 MG TAB PO SCH (09:16)
[2017-11-13] MEDS: INSULIN REGULAR 100 UNIT in SODIUM CHLORIDE 0.9% 100 ML IV SCH ×3 (09:16→22:03)
[2017-11-13] MEDS: HEPARIN SODIUM,PORCINE 5,000 UNIT/ML 1 ML VIAL SQ SCH ×2 (09:16→20:30)
[2017-11-13] MEDS: METOPROLOL SUCCINATE (ER) 50 MG TAB.ER.24H PO SCH (09:16)
[2017-11-13] MEDS: ISOSORBIDE MONONITRATE ER 30 MG TAB.ER.24H PO SCH (09:16)
[2017-11-13 10:33] LABS: Glucose,Whole Blood 263 mg/dL (75-99)
[2017-11-13] MEDS: PIPERACILLIN-TAZOBACTAM 3.375 GM in DEXTROSE/WATER 1 50ML.BAG IVPB SCH ×2 (11:40→20:30)
--- NOTE | 2017-11-13 12:11 | P.PN ---
Subjective Progress Note Date: 11/13/17 Principal diagnosis: Acute sepsis with an unknown source, hypotension, resolved It is a 72-year-old female patient with end-stage renal disease currently on hemodialysis for an AV fistula in the left upper extremity was coming in with acute lethargy, weakness, fevers, chills, tachycardia and fatigue. The patient was suspected to be septic and she came in to the [facility] department. The daughter is noted the patient's blood sugars have been running high recently which could be another signs of an underlying infection/sepsis. The patient denied having any cough or sputum production. No pleurisy. No chest pain. No sore throat. No headaches. No neck stiffness. No dysuria frequency urgency. She has had previous urine checked infections with E. coli none of them being resistant microorganism. She has no open wounds or sores. She has some dry scabs in her lower extremities bilaterally yet there is no evidence of any cellulitis or soft tissue infection. No nausea. No vomiting. No diarrhea. She used to have a permacath in the past that was removed and currently she is using a fistula in the left upper extremity. Her white cell count is 22. Her hemoglobin is at 11.1. Her potassium level is at 6.8 and the patient is undergoing dialysis currently the [facility] department awaiting to be transferred to the ICU. She did have some lower blood pressure with a systolic in the mid 80s and she was given a 500 mL of bolus with dialysis. I asked him to give another liter bolus and dialysis. Her lactic acid level is at 4.9. She is receiving a 2K dialysis in regards to her hyperkalemia. On 11/10/2017, the patient is in the intensive care unit and she is being seen in follow-up. She is better compared to yesterday. She is afebrile hemodynamically stable. On and off she was having some lower blood pressure with a systolic blood pressure drop in the mid 80s. Her lactic acid level came up to 6.7 and based on that she was given additional liter of bolus and antibiotics was continued with a combination of Zosyn and vancomycin. On today' s evaluation, she is hemodynamically stable on no pressors. Nephrology saw the patient got IV fluids to KVO. She is afebrile. The patient had broad-spectrum antibiotics and the patient had cultures sent and the results are still pending for now. No positive cultures have been yielded yet. Meanwhile, the patient was treated for her hyperkalemia and she underwent dialysis yesterday and the follow-up potassium level is down to 4.9. CAT scan of the abdomen showed some nonspecific colitis involving the cecum and ascending colon which is probably inflammatory in nature. The patient does not have any significant abdominal pain. No nausea. No vomiting. No diarrhea. No previous history of any colitis being at infectious or C. diff colitis. No other complaints otherwise for now. She is resting comfortably in bed. No dialysis for today. On today's evaluation, this 72-year-old here patient is feeling well. She got dialyzed yesterday and total of 4 L of fluid was removed. She is hemodynamically stable. She is afebrile. White cell count is normal. No mental status change. No shortness of breath. She remains on IV antibiotics with a combination of Zosyn and vancomycin. This is empiric antibiotic coverage suspecting an underlying septicemia. All of the cultures of been negative thus far. The patient is currently on CPAP at a pressure of 12 cm of water and this is at original setting that she uses even on outpatient basis. Nephrology is on the case. On 11/13/2017 patient seen in follow-up selective care unit. She is resting in bed, in no acute distress. She states her breathing is slightly short today, she remains on 4 L per nasal cannula with O2 sat at 94%, room air oxygen 80s 83% , she is afebrile, denies any fever or chills. Lung sounds are clear to auscultation, today's labs were reviewed, she is 15.2, and this has more than doubled since yesterday. Hemoglobin is 8.8, serum sodium is 132, potassium is 5.7, chloride is 94, BUN is 59, creatinine is 5.6. Patient will be having dialysis treatment today. Denies any coughing, denies any chest congestion, no wheezing noted. There is still has no clear indication for the source of abscess, and the patient remains on empiric antibiotics form of Zosyn and vancomycin. Objective - Vital Signs Vital signs: Vital Signs Temp 97.3 F L 11/13/17 08:00 Pulse 78 11/13/17 08:00 Resp 18 11/13/17 04:00 BP 146/65 11/13/17 08:00 Pulse Ox 94 L 11/13/17 09:35 Intake & Output 11/12/17 11/13/17 11/13/17 18:59 06:59 18:59 Intake Total 600 85.428 249.999 Balance 600 85.428 249.999 Weight 93 kg Intake: Intake, IV Titration 85.428 9.999 Amount Insulin Regular 100 unit 85.428 9.999 In Sodium Chloride 0.9% 100 ml @ Titrate IV .Q0M [facility] Rx#:[id number] Oral 600 240 Other: Voiding Method Bedpan Bedpan # Voids 0 0 0 - Exam Gen. appearance the patient is obese , comfortable likely distress Head exam was generally normal. There was no scleral icterus or corneal arcus. Mucous membranes were moist. Neck was supple and without jugular venous distension, thyromegaly, or carotid bruits. Carotids were easily palpable bilaterally. There was no adenopathy. Lungs sounds are diminished bilaterally at it is clear and there is no wheezes or rhonchi or any crackles. Heart sounds are irregular, positive S1-S2 and there is a systolic ejection murmur grade 3/6 heard throughout the precordium. Abdominal exam revealed normal bowel sounds. The abdomen was soft, non-tender, and without masses, organomegaly, or appreciable enlargement of the abdominal aorta. Examination of the extremities revealed easily palpable radial, femoral and pedal pulses. There was no cyanosis, clubbing or edema. Examination of the skin revealed no evidence of significant rashes, suspicious appearing nevi or other concerning lesions. Neurologically the patient is awake and alert and there is no focal logical deficits Psychiatrically intact - Labs CBC & Chem 7: 11/13/17 05:32 11/13/17 05:32 Labs: Abnormal Lab Results - Last 24 Hours (Table) 11/12/17 11/12/17 11/12/17 Range/Units 16:36 17:00 19:02 WBC (3.8-10.6) k/uL RBC (3.80-5.40) m/uL Hgb (11.4-16.0) gm/dL Hct (34.0-46.0) % RDW (11.5-15.5) % Neutrophils # (1.3-7.7) k/uL Lymphocytes # (1.0-4.8) k/uL Sodium (137-145) mmol/L Potassium (3.5-5.1) mmol/L Chloride (98-107) mmol/L BUN (7-17) mg/dL Creatinine (0.52-1.04) mg/dL Glucose 483 H* (74-99) mg/dL POC Glucose (mg/dL) 500 H 458 H (75-99) mg/dL Phosphorus (2.5-4.5) mg/dL Magnesium (1.6-2.3) mg/dL 11/12/17 11/12/17 11/12/17 Range/Units 19:43 20:31 21:07 WBC (3.8-10.6) k/uL RBC (3.80-5.40) m/uL Hgb (11.4-16.0) gm/dL Hct (34.0-46.0) % RDW (11.5-15.5) % Neutrophils # (1.3-7.7) k/uL Lymphocytes # (1.0-4.8) k/uL Sodium (137-145) mmol/L Potassium (3.5-5.1) mmol/L Chloride (98-107) mmol/L BUN (7-17) mg/dL Creatinine (0.52-1.04) mg/dL Glucose (74-99) mg/dL POC Glucose (mg/dL) 391 H 329 H 276 H (75-99) mg/dL Phosphorus (2.5-4.5) mg/dL Magnesium (1.6-2.3) mg/dL 11/12/17 11/12/17 11/13/17 Range/Units 21:48 23:53 02:18 WBC (3.8-10.6) k/uL RBC (3.80-5.40) m/uL Hgb (11.4-16.0) gm/dL Hct (34.0-46.0) % RDW (11.5-15.5) % Neutrophils # (1.3-7.7) k/uL Lymphocytes # (1.0-4.8) k/uL Sodium (137-145) mmol/L Potassium (3.5-5.1) mmol/L Chloride (98-107) mmol/L BUN (7-17) mg/dL Creatinine (0.52-1.04) mg/dL Glucose (74-99) mg/dL POC Glucose (mg/dL) 208 H 152 H 159 H (75-99) mg/dL Phosphorus (2.5-4.5) mg/dL Magnesium (1.6-2.3) mg/dL 11/13/17 11/13/17 11/13/17 Range/Units 04:15 05:32 05:32 WBC 15.2 H (3.8-10.6) k/uL RBC 2.92 L (3.80-5.40) m/uL Hgb 8.8 L (11.4-16.0) gm/dL Hct 28.2 L (34.0-46.0) % RDW 17.1 H (11.5-15.5) % Neutrophils # 13.9 H (1.3-7.7) k/uL Lymphocytes # 0.8 L (1.0-4.8) k/uL Sodium 132 L (137-145) mmol/L Potassium 5.7 H (3.5-5.1) mmol/L Chloride 94 L (98-107) mmol/L BUN 59 H (7-17) mg/dL Creatinine 5.60 H* (0.52-1.04) mg/dL Glucose 154 H (74-99) mg/dL POC Glucose (mg/dL) 166 H (75-99) mg/dL Phosphorus 6.1 H (2.5-4.5) mg/dL Magnesium 2.5 H (1.6-2.3) mg/dL 11/13/17 11/13/17 11/13/17 Range/Units 05:55 08:13 10:12 WBC (3.8-10.6) k/uL RBC (3.80-5.40) m/uL Hgb (11.4-16.0) gm/dL Hct (34.0-46.0) % RDW (11.5-15.5) % Neutrophils # (1.3-7.7) k/uL Lymphocytes # (1.0-4.8) k/uL Sodium (137-145) mmol/L Potassium (3.5-5.1) mmol/L Chloride (98-107) mmol/L BUN (7-17) mg/dL Creatinine (0.52-1.04) mg/dL Glucose (74-99) mg/dL POC Glucose (mg/dL) 188 H 227 H 263 H (75-99) mg/dL Phosphorus (2.5-4.5) mg/dL Magnesium (1.6-2.3) mg/dL Microbiology - Last 24 Hours (Table) 11/09/17 10:22 Blood Culture - Preliminary Blood No Growth after 72 hours Assessment and Plan Plan: Assessment: 1 acute sepsis the exact source is not clear. The patient was treated with broad-spectrum antibiotics and currently she is afebrile hemodynamically stable and all of the cultures of been negative. Fever has resolved. 2 hypotension secondary to above, recovered with fluid resuscitation and antibiotics 3 End stage renal disease on hemodialysis with AV fistula in left upper extremity. The patient underwent hemodialysis with removal of 4 L of fluid yesterday 4 acute hyperkalemia with a potassium level of 6.8 currently on hemodialysis, and subsequent potassium level is down to 5.2 5 diabetes mellitus with sepsis induced hyperglycemia 6 history of hypertension with diastolic heart failure and hypertensive heart disease 7 paroxysmal atrial fibrillation 8 coronary artery disease with multivessel coronary artery disease involvement and the patient has declined bypass surgery in the past and she has had on and off episodes of acute non-ST segment elevation myocardial infarction is. 9 morbid obesity with a BMI of 37.3 10 diabetic peripheral neuropathy and nephropathy 11 hypertension 12 healed pressure sores and sacral decub ulcers 13 acid reflux 14 hyperlipidemia 15 chronic anemia 16 moderate aortic stenosis based on recent echocardiogram with a preserved LV function with an ejection fraction of 55-60% 17 nonspecific colitis involving the cecum and ascending colon. 18 obstructive sleep apnea severe maintenance. At a pressure of 12 cm of water. Plan Continue current antibiotic coverage, the source of sepsis still has not been identified, patient has no fever, chills. White count is trending up, and possibly related to steroids. No wheezing, no coughing no chest congestion on today's exam. Continue CPAP therapy at a pressure of 12. Will have hemodialysis treatment today. We'll continue to follow I performed a history & physical examination of the patient and discussed their management with my nurse practitioner, Pinky Salas. I reviewed the nurse practitioner's note and agree with the documented findings and plan of care. Lung sounds are fair, diminished at the bases. The findings and the impression was discussed with the patient. I attest to the documentation by the nurse practitioner. Time with Patient: Less than 30
[2017-11-13 12:14] LABS: Glucose,Whole Blood 217 mg/dL (75-99)
[2017-11-13 12:25] LABS: Hemoglobin A1C 6.6 % (4.0-6.0)
--- NOTE | 2017-11-13 12:48 | P.PN ---
Subjective Progress Note Date: 11/13/17 72-year-old female patient of Dr. Villanueva with past medical history of atrial fibrillation, coronary artery disease status post myocardial infarction, history of triple-vessel disease disease and was considered high risk for bypass on conservative treatment, chronic diastolic heart failure, diabetes, hyperlipidemia, hypertension, end-stage renal disease on hemodialysis , peripheral neuropathy presents with sudden onset of fever, weakness associated 1 episode of vomiting on BiPAP yesterday. Vital signs is suggestive of a temp of 100.1 pulse 110 sinus, blood pressure 123/74. Labs were positive for leukocytosis of 22.7, hemoglobin 11.1, potassium 6.8, sodium 135 chloride 95 , BUN 50, creatinine 6.24, glucose 354, lactic acid 4.9 increased AST and a alkaline phosphatase. Urinalysis suggestive of dehydration Sonya in appearance, with moderate leukocyte esterase but only 5 WBCs with 20 hyalin cast. Patient received 1 L of IV fluid and is maintained on 100 mL per hour. She underwent treatment for hyperkalemia including calcium chloride , dextrose and insulin, and 15 mg of albuterol and Kayexalate. patient got vancomycin and Zosyn for broad-spectrum coverage. Will be moved to the ICU for severe sepsis with urgent dialysis performed in the ER. And was just discharged on October 26 with improvement in her WBCs. She was admitted that time for hyperkalemia and fluid overload. 11/10 and patient examined with site appears better than yesterday is more alert. Patient required multiple boluses of IV fluid due to drop in blood pressure. Blood pressures bedside today is 96/56. The patient completed dialysis yesterday, no plan for dialysis today. Continue to complain of abdominal pain x-ray, CT abdomen concerning for infiltrate or change in the ascending colon and cecum concerning for infectious versus inflammatory versus ischemic colitis. Continue antibiotic coverage with vancomycin and Zosyn. Infectious disease recommendation pending. Labs suggest improvement in leukocytosis from 22 to 13. His hemoglobin dropped from 11.1-8.4 lactic acid improved from 6-1.7 with fluid boluses. Some improvement since starting patient continues to be nothing by mouth insulin sliding scale. Would recommend 500 mL of IV bolus before transfer to the selective 11/11:Patient had a rough night and stated that she continues to be short of breath patient does not feel any improvement since admission and thinks that she 's slightly worse. 11/12:Patient is feeling much better since starting IV steroids and stated that she is at least 50% improved since yesterday currently on nasal cannula tolerating without difficulties patient stated that she is normally at home without oxygen and likes to be in bed more than in chair 11/13: Patient became hemodynamically stable over the weekend was transferred out of the intensive care unit to [facility] care. Patient is followed by multiple consultants. Dr. Manrique is planning for hemodialysis today. She has been started on Ferrlecit for 3 day course starting today. Patient is also maintained on Aranesp and low potassium diet. She is followed by Dr. Locke and it has been maintained on IV antibiotics in the form of Zosyn and vancomycin. He is confused concern for also underlying urinary tract Infection and she was treated earlier this year for MRSA pneumonia. Urine culture has been finalized with no growth and blood cultures showing no growth after [address] Hanson has been following for intensive care management and patient has been on CPAP at her usual settings. Patient has history of obstructive sleep apnea. Dr. Macedo is following and has recommended holding oral anticoagulation for another 24 hours but continue Plavix. Patient is normally on eliquis. Hemoglobin is stable at 8.8, white count 15.2. Patient was started on IV Solu-Medrol over the weekend for colitis. BUN 59 creatinine 5.6 with potassium of 5.7. Capillary blood glucose running between 159 and 188. Patient states that she is feeling much improved. Anticipate discharge home tomorrow. Objective - Vital Signs Vital signs: Vital Signs Temp 97.5 F L 11/13/17 04:00 Pulse 65 11/13/17 04:00 Resp 18 11/13/17 04:00 BP 137/59 11/13/17 04:00 Pulse Ox 96 11/13/17 07:37 Intake & Output 11/12/17 11/13/17 11/13/17 18:59 06:59 18:59 Intake Total 600 85.428 Balance 600 85.428 Weight 93 kg Intake: Intake, IV Titration 85.428 Amount Insulin Regular 100 unit 85.428 In Sodium Chloride 0.9% 100 ml @ Titrate IV .Q0M [facility] Rx#:[id number] Oral 600 Other: Voiding Method Bedpan Bedpan # Voids 0 0 0 - Exam - Constitutional General appearance: no acute distress, obese - EENT Eyes: anicteric sclerae, PERRLA, normal appearance ENT: hearing grossly normal - Neck Neck: no lymphadenopathy, normal ROM, no other, no rigidity, no stridor, no thyromegaly - Respiratory Respiratory: bilateral: CTA, negative: diminished, dullness, rales, rhonchi - Cardiovascular Rhythm: Tachycardic but regular Heart sounds: normal: S1, S2 Abnormal Heart Sounds: no systolic murmur, no diastolic murmur, no rub, no S3 Gallop, no S4 Gallop, no click, no other - Gastrointestinal General gastrointestinal: normal bowel sounds, soft, diffusely tender - Integumentary Integumentary: no rash - Neurologic Neurologic: CNII-XII intact - Musculoskeletal Musculoskeletal: Generalized weakness with decreased power in bilateral lower extremity - Psychiatric Psychiatric: A&O x's 3, appropriate affect - Labs CBC & Chem 7: 11/13/17 05:32 11/13/17 05:32 Labs: Abnormal Lab Results - Last 24 Hours (Table) 11/11/17 11/12/17 11/12/17 Range/Units 05:57 05:50 11:31 WBC (3.8-10.6) k/uL RBC (3.80-5.40) m/uL Hgb (11.4-16.0) gm/dL Hct (34.0-46.0) % RDW (11.5-15.5) % Neutrophils # (1.3-7.7) k/uL Lymphocytes # (1.0-4.8) k/uL Sodium 135 L (137-145) mmol/L Potassium 5.2 H (3.5-5.1) mmol/L Chloride 96 L (98-107) mmol/L BUN 35 H (7-17) mg/dL Creatinine 4.20 H (0.52-1.04) mg/dL Glucose 303 H (74-99) mg/dL POC Glucose (mg/dL) 462 H (75-99) mg/dL Phosphorus 5.4 H (2.5-4.5) mg/dL Magnesium 2.4 H (1.6-2.3) mg/dL Iron 28 L (50-170) ug/dL Iron Saturation 11.16 L (12.00-45.00) Ferritin 542.4 H (10.0-291.0) ng/mL 11/12/17 11/12/17 11/12/17 Range/Units 16:36 17:00 19:02 WBC (3.8-10.6) k/uL RBC (3.80-5.40) m/uL Hgb (11.4-16.0) gm/dL Hct (34.0-46.0) % RDW (11.5-15.5) % Neutrophils # (1.3-7.7) k/uL Lymphocytes # (1.0-4.8) k/uL Sodium (137-145) mmol/L Potassium (3.5-5.1) mmol/L Chloride (98-107) mmol/L BUN (7-17) mg/dL Creatinine (0.52-1.04) mg/dL Glucose 483 H* (74-99) mg/dL POC Glucose (mg/dL) 500 H 458 H (75-99) mg/dL Phosphorus (2.5-4.5) mg/dL Magnesium (1.6-2.3) mg/dL Iron (50-170) ug/dL Iron Saturation (12.00-45.00) Ferritin (10.0-291.0) ng/mL 11/12/17 11/12/17 11/12/17 Range/Units 19:43 20:31 21:07 WBC (3.8-10.6) k/uL RBC (3.80-5.40) m/uL Hgb (11.4-16.0) gm/dL Hct (34.0-46.0) % RDW (11.5-15.5) % Neutrophils # (1.3-7.7) k/uL Lymphocytes # (1.0-4.8) k/uL Sodium (137-145) mmol/L Potassium (3.5-5.1) mmol/L Chloride (98-107) mmol/L BUN (7-17) mg/dL Creatinine (0.52-1.04) mg/dL Glucose (74-99) mg/dL POC Glucose (mg/dL) 391 H 329 H 276 H (75-99) mg/dL Phosphorus (2.5-4.5) mg/dL Magnesium (1.6-2.3) mg/dL Iron (50-170) ug/dL Iron Saturation (12.00-45.00) Ferritin (10.0-291.0) ng/mL 11/12/17 11/12/17 11/13/17 Range/Units 21:48 23:53 02:18 WBC (3.8-10.6) k/uL RBC (3.80-5.40) m/uL Hgb (11.4-16.0) gm/dL Hct (34.0-46.0) % RDW (11.5-15.5) % Neutrophils # (1.3-7.7) k/uL Lymphocytes # (1.0-4.8) k/uL Sodium (137-145) mmol/L Potassium (3.5-5.1) mmol/L Chloride (98-107) mmol/L BUN (7-17) mg/dL Creatinine (0.52-1.04) mg/dL Glucose (74-99) mg/dL POC Glucose (mg/dL) 208 H 152 H 159 H (75-99) mg/dL Phosphorus (2.5-4.5) mg/dL Magnesium (1.6-2.3) mg/dL Iron (50-170) ug/dL Iron Saturation (12.00-45.00) Ferritin (10.0-291.0) ng/mL 11/13/17 11/13/17 11/13/17 Range/Units 04:15 05:32 05:32 WBC 15.2 H (3.8-10.6) k/uL RBC 2.92 L (3.80-5.40) m/uL Hgb 8.8 L (11.4-16.0) gm/dL Hct 28.2 L (34.0-46.0) % RDW 17.1 H (11.5-15.5) % Neutrophils # 13.9 H (1.3-7.7) k/uL Lymphocytes # 0.8 L (1.0-4.8) k/uL Sodium 132 L (137-145) mmol/L Potassium 5.7 H (3.5-5.1) mmol/L Chloride 94 L (98-107) mmol/L BUN 59 H (7-17) mg/dL Creatinine 5.60 H* (0.52-1.04) mg/dL Glucose 154 H (74-99) mg/dL POC Glucose (mg/dL) 166 H (75-99) mg/dL Phosphorus 6.1 H (2.5-4.5) mg/dL Magnesium 2.5 H (1.6-2.3) mg/dL Iron (50-170) ug/dL Iron Saturation (12.00-45.00) Ferritin (10.0-291.0) ng/mL 11/13/17 Range/Units 05:55 WBC (3.8-10.6) k/uL RBC (3.80-5.40) m/uL Hgb (11.4-16.0) gm/dL Hct (34.0-46.0) % RDW (11.5-15.5) % Neutrophils # (1.3-7.7) k/uL Lymphocytes # (1.0-4.8) k/uL Sodium (137-145) mmol/L Potassium (3.5-5.1) mmol/L Chloride (98-107) mmol/L BUN (7-17) mg/dL Creatinine (0.52-1.04) mg/dL Glucose (74-99) mg/dL POC Glucose (mg/dL) 188 H (75-99) mg/dL Phosphorus (2.5-4.5) mg/dL Magnesium (1.6-2.3) mg/dL Iron (50-170) ug/dL Iron Saturation (12.00-45.00) Ferritin (10.0-291.0) ng/mL Microbiology - Last 24 Hours (Table) 11/09/17 10:22 Blood Culture - Preliminary Blood No Growth after 72 hours Assessment and Plan Plan: 1. Severe sepsis secondary to colitis of the cecum and ascending colon, possible ischemic colitis. Continue Zosyn and vancomycin. Consult with Dr. Alves is appreciated. Gastroenterology plan for possible colonoscopy. CT Abdomen positive for colitis. 2. Acute GI bleed with anemia of chronic disease. Patient has been seen by Dr. Vieyra and following closely for possible colonoscopy. Hemoglobin is currently stable and improving. Ferrlecit has been started by nephrology. Continue Aranesp. 3. Chronic diastolic heart failure. Continue hemodialysis per nephrology. Hold Lasix. Patient is normally on 80 mg twice daily. 4. History of moderate aortic stenosis. Continue Imdur 30 mg, Toprol 50 mg. Hold Lasix. 5. End-stage renal disease on hemodialysis Monday and Monday. Continue sevelamer 800 mg 3 times a day with meals 6. Hypertension cardiovascular disease. Continue amiodarone, Cardizem, Imdur, Toprol-XL. 5. Paroxysmal atrial fibrillation. Continue amiodarone 100 mg once daily, Cardizem 60 mg 3 times a day. Eliquis is on hold. 6. History of myocardial infarction and coronary artery disease. Hold Toprol- XL 50 mg once daily, hold aspirin and Plavix for concern of GI bleed. Continue Zetia 10 mg once every day. Cardiology consult as patient has significant cardiovascular disease and is currently off anticoag 7. Diabetes mellitus type 2, insulin requiring. Continue insulin sliding scale. 8. GERD continue Protonix 40 mg once daily 9. History of hyperlipidemia intolerant of statins continue Zetia 10 mg once daily 10. Diabetic peripheral neuropathy continue gabapentin 300 mg twice daily 11. Recurrent depression. Continue Cymbalta 60 mg orally once daily 12. Anemia of chronic kidney disease 13. DVT prophylaxis. Patient is currently on heparin subcu. Eliquis is on hold. Continue bilateral knee-high TERRIE hose 14. CODE STATUS full code Discharge plan: Return home. PT and OT in place. Impression and plan of care have been directed as dictated by the signing physician. Jessenia Gonzalez nurse practitioner acting as scribe for signing physician.
--- NOTE | 2017-11-13 14:08 | P.PN ---
Subjective Progress Note Date: 11/13/17 As a pleasant 72-year-old female patient who sees Dr. Combs in the office. She hasn't passed medical history significant for coronary artery disease stenting of the LAD in July 2017 and stenting of the left circumflex in August 2017, end-stage renal disease on hemodialysis, hypertension, paroxysmal atrial fibrillation and dyslipidemia as well as diabetes. She was admitted to the hospital for overall not feeling well. Family noticed progressive weakness and she was feeling very tired and fatigued and unable to get up from a sitting position. She also had high blood sugars at home. She did not have any shortness of breath, chest discomfort. Patient was febrile at home. Because of suspected sepsis the patient was admitted to intensive care unit and cultures have been done. CT scan of the abdomen and pelvis showed possible ischemic colitis. We were asked see the patient in consult because of a hemoglobin drop and patient is on anticoagulation for PAF. No obvious upper or lower GI bleeding. Eliquis has been on hold and plavix continues. Hemoglobin is stable at 8.8 this morning, yesterday's results was 8.6. Patient remains dyspneic. Nephrology has ordered a short 2 hour treatment of hemodialysis to be done today.. Objective - Vital Signs Vital signs: Vital Signs Temp 97.3 F L 11/13/17 08:00 Pulse 78 11/13/17 08:00 Resp 18 11/13/17 04:00 BP 146/65 11/13/17 08:00 Pulse Ox 94 L 11/13/17 09:35 Intake & Output 11/12/17 11/13/17 11/13/17 18:59 06:59 18:59 Intake Total 600 85.428 249.999 Balance 600 85.428 249.999 Weight 93 kg Intake: Intake, IV Titration 85.428 9.999 Amount Insulin Regular 100 unit 85.428 9.999 In Sodium Chloride 0.9% 100 ml @ Titrate IV .Q0M [facility] Rx#:[id number] Oral 600 240 Other: Voiding Method Bedpan Bedpan # Voids 0 0 0 - Exam PHYSICAL EXAMINATION: HEENT: Head is atraumatic, normocephalic. Pupils equal, round. Neck is supple. There is no elevated jugular venous pressure. HEART EXAMINATION: Heart sounds regular, S1 and S2 normal. No murmur or gallop heard. CHEST EXAMINATION: Lungs reveal diminished air entry bilaterally . No chest wall tenderness is noted on palpation or with deep breathing. ABDOMEN: Soft, obese, nontender. Bowel sounds are heard. No organomegaly noted. EXTREMITIES: 2+ peripheral pulses with no evidence of peripheral edema and no calf tenderness noted. NEUROLOGIC patient is drowsy and oriented x3. . - Labs CBC & Chem 7: 11/13/17 05:32 11/13/17 05:32 Labs: Abnormal Lab Results - Last 24 Hours (Table) 11/12/17 11/12/17 11/12/17 Range/Units 11:31 16:36 17:00 WBC (3.8-10.6) k/uL RBC (3.80-5.40) m/uL Hgb (11.4-16.0) gm/dL Hct (34.0-46.0) % RDW (11.5-15.5) % Neutrophils # (1.3-7.7) k/uL Lymphocytes # (1.0-4.8) k/uL Sodium (137-145) mmol/L Potassium (3.5-5.1) mmol/L Chloride (98-107) mmol/L BUN (7-17) mg/dL Creatinine (0.52-1.04) mg/dL Glucose 483 H* (74-99) mg/dL POC Glucose (mg/dL) 462 H 500 H (75-99) mg/dL Phosphorus (2.5-4.5) mg/dL Magnesium (1.6-2.3) mg/dL 11/12/17 11/12/17 11/12/17 Range/Units 19:02 19:43 20:31 WBC (3.8-10.6) k/uL RBC (3.80-5.40) m/uL Hgb (11.4-16.0) gm/dL Hct (34.0-46.0) % RDW (11.5-15.5) % Neutrophils # (1.3-7.7) k/uL Lymphocytes # (1.0-4.8) k/uL Sodium (137-145) mmol/L Potassium (3.5-5.1) mmol/L Chloride (98-107) mmol/L BUN (7-17) mg/dL Creatinine (0.52-1.04) mg/dL Glucose (74-99) mg/dL POC Glucose (mg/dL) 458 H 391 H 329 H (75-99) mg/dL Phosphorus (2.5-4.5) mg/dL Magnesium (1.6-2.3) mg/dL 11/12/17 11/12/17 11/12/17 Range/Units 21:07 21:48 23:53 WBC (3.8-10.6) k/uL RBC (3.80-5.40) m/uL Hgb (11.4-16.0) gm/dL Hct (34.0-46.0) % RDW (11.5-15.5) % Neutrophils # (1.3-7.7) k/uL Lymphocytes # (1.0-4.8) k/uL Sodium (137-145) mmol/L Potassium (3.5-5.1) mmol/L Chloride (98-107) mmol/L BUN (7-17) mg/dL Creatinine (0.52-1.04) mg/dL Glucose (74-99) mg/dL POC Glucose (mg/dL) 276 H 208 H 152 H (75-99) mg/dL Phosphorus (2.5-4.5) mg/dL Magnesium (1.6-2.3) mg/dL 11/13/17 11/13/17 11/13/17 Range/Units 02:18 04:15 05:32 WBC 15.2 H (3.8-10.6) k/uL RBC 2.92 L (3.80-5.40) m/uL Hgb 8.8 L (11.4-16.0) gm/dL Hct 28.2 L (34.0-46.0) % RDW 17.1 H (11.5-15.5) % Neutrophils # 13.9 H (1.3-7.7) k/uL Lymphocytes # 0.8 L (1.0-4.8) k/uL Sodium (137-145) mmol/L Potassium (3.5-5.1) mmol/L Chloride (98-107) mmol/L BUN (7-17) mg/dL Creatinine (0.52-1.04) mg/dL Glucose (74-99) mg/dL POC Glucose (mg/dL) 159 H 166 H (75-99) mg/dL Phosphorus (2.5-4.5) mg/dL Magnesium (1.6-2.3) mg/dL 11/13/17 11/13/17 11/13/17 Range/Units 05:32 05:55 08:13 WBC (3.8-10.6) k/uL RBC (3.80-5.40) m/uL Hgb (11.4-16.0) gm/dL Hct (34.0-46.0) % RDW (11.5-15.5) % Neutrophils # (1.3-7.7) k/uL Lymphocytes # (1.0-4.8) k/uL Sodium 132 L (137-145) mmol/L Potassium 5.7 H (3.5-5.1) mmol/L Chloride 94 L (98-107) mmol/L BUN 59 H (7-17) mg/dL Creatinine 5.60 H* (0.52-1.04) mg/dL Glucose 154 H (74-99) mg/dL POC Glucose (mg/dL) 188 H 227 H (75-99) mg/dL Phosphorus 6.1 H (2.5-4.5) mg/dL Magnesium 2.5 H (1.6-2.3) mg/dL 11/13/17 Range/Units 10:12 WBC (3.8-10.6) k/uL RBC (3.80-5.40) m/uL Hgb (11.4-16.0) gm/dL Hct (34.0-46.0) % RDW (11.5-15.5) % Neutrophils # (1.3-7.7) k/uL Lymphocytes # (1.0-4.8) k/uL Sodium (137-145) mmol/L Potassium (3.5-5.1) mmol/L Chloride (98-107) mmol/L BUN (7-17) mg/dL Creatinine (0.52-1.04) mg/dL Glucose (74-99) mg/dL POC Glucose (mg/dL) 263 H (75-99) mg/dL Phosphorus (2.5-4.5) mg/dL Magnesium (1.6-2.3) mg/dL Microbiology - Last 24 Hours (Table) 07/12/18 10:22 Blood Culture - Preliminary Blood No Growth after 72 hours Assessment and Plan Assessment: #1 sepsis of unknown origin, on broad spectrum antibiotics #2 possible ischemic colitis #3 acute blood loss, no signs of obvious GI bleeding, no plans for invasive workup #4 coronary artery disease, status post recent stenting of LAD and left circumflex #5 paroxysmal atrial fibrillation #6 end-stage renal disease, on hemodialysis Plan: From cardiology's perspective, continue Plavix and resume Eliquis. Continue to monitor for bleeding. Monitor hemoglobin. Patient does require hemodialysis today. We will continue to follow the patient provide further recommendations accordingly. [employer] note has been reviewed, I agree with a documented findings and plan of care. Patient was seen and examined.
[2017-11-13 15:11] LABS: Glucose,Whole Blood 142 mg/dL (75-99)
[2017-11-13 16:53] LABS: Glucose,Whole Blood 162 mg/dL (75-99)
[2017-11-13 18:34] LABS: Glucose,Whole Blood 186 mg/dL (75-99)
[2017-11-13 19:58] LABS: Glucose,Whole Blood 196 mg/dL (75-99)
--- NOTE | 2017-11-13 20:24 | P.PN ---
Subjective Progress Note Date: 11/13/17 This is a 72-year-old female known to ID service as she was treated for a MRSA soft tissue skin infection approximately 6 years ago. She most recently was seen in November 2016 at which time she was treated for acute respiratory failure secondary to acute on chronic diastolic heart failure COPD exacerbation and moderate aortic stenosis. Patient is known to have end-stage renal disease on dialysis Monday. She states she received her Monday therapy and also was given additional treatment on Monday. Patient states that she was sleeping when she woke up in the morning her daughter lives with her woke her up and found that she had vomited into her CPAP mask and patient was also very lethargic weak and fatigued. She apparently had some fevers at home she was complaining of some mild shortness of breath. Also her blood sugars have been running high at home. She denies any cough or sputum production. She denies any diarrhea or constipation. She denies any blood in her stools. Her last bowel movement was yesterday. She states when she was up her daughter tried to help her to the bathroom but because she was so weak she had to wait until her son was there and able to lift her onto the toilet. Regarding abdominal pain, she states she did not realize she had any until EMS moved her onto a gurney and she noted right lower quadrant pain. Her blood sugars have been running high at home. Patient was then brought into [facility] emergency center for evaluation where she was found to have temperature 100.1, white count of 22.7. Potassium was 6.8 and she is status post Kayexalate, BUN 50, creatinine 6.25. Initial lactic acid was 4.9 and repeat is down to 1.7 as of this morning. Her urinalysis was cloudy, leukoesterase moderate and squamous cells 5. Patient states she only voids about 1 time every 2-3 days. She denies having any known pain with urination. She currently has a Levy catheter in place. Chest x-ray showed minimal basilar atelectasis suspected. Dr. Botello was contacted and patient was given hemodialysis in the emergency center and did have hypotension requiring IV fluid bolus of 1500 cc. Patient was admitted into the intensive care unit. She has not required vasopressors. No plan for dialysis today. She does have a recent history of myocardial infarction stent placement in September. Patient was noted to have a drop in her hemoglobin initially 11.1 and now 8.4 for which GI has been consult it. There is no plan for any intervention at this time. Her CAT scan of the abdomen and pelvis with contrast showed moderate marked colitis in the cecum and the ascending colon likely inflammatory. Patient has been on Zosyn and vancomycin. Note the patient is also on amiodarone. Potassium is improved this morning of 4.9. Patient has been started on a clear liquid diet this morning for breakfast and is tolerating this. She denies any further episodes of nausea or vomiting. She states she has a little appetite. Patient has chronic back pain status post multiple back surgeries for which she is now essentially wheelchair bound due to frequent falls. She is able to transfer herself. Patient has not had any recent falls. 11/13/2017 reveals a faint feeling somewhat better. She is out of ICU on the selective care unit. She is overall feeling somewhat better. Unable to eat her full dinner. This likely some chronic pain issues. No other new cultures are available. Objective - Vital Signs Vital signs: Vital Signs Temp 97.3 F L 11/13/17 08:00 Pulse 79 11/13/17 12:00 Resp 18 11/13/17 04:00 BP 146/65 11/13/17 08:00 Pulse Ox 95 11/13/17 12:36 Intake & Output 11/13/17 11/13/17 11/14/17 06:59 18:59 06:59 Intake Total 85.428 519.999 32.976 Balance 85.428 519.999 32.976 Weight 93 kg Intake: Intake, IV Titration 85.428 159.999 32.976 Amount Insulin Regular 100 unit 85.428 9.999 32.976 In Sodium Chloride 0.9% 100 ml @ Titrate IV .Q0M JONEL Rx#:[id number] Piperacillin-Tazobactam 3 50 .375 gm In Dextrose/Water 1 50ml.bag @ 12.5 mls/hr IVPB Q12HR JONEL Rx#: [id number] Sodium Ferric Gluconat- 100 Sucrose 125 mg In Sodium Chloride 0.9% 100 ml @ 100 mls/hr IVPB DAILY JONEL Rx#:[id number] Oral 360 Other: Voiding Method Bedpan # Voids 0 0 - Exam Gen: This is a 72-year-old female. She is seen in the ICU. She is in bed and appears to be comfortable. Patient appears to be in no acute distress. HEENT: Head is atraumatic, normocephalic. Pupils equal, round. Sclerae is anicteric. NECK: Supple. No JVD. No lymphadenopathy. No thyromegaly. LUNGS: Clear to auscultation. No wheezes or rhonchi. No intercostal retractions. HEART: Regular rate and rhythm. No murmur. ABDOMEN: Soft. Bowel sounds are present. No masses. Right lower quadrant tenderness. EXTREMITIES: No pedal edema. No calf tenderness. NEUROLOGICAL: Patient is awake, alert and oriented x3. Generalized weakness noted to the lower extremities bilaterally. Hand skills trainer the upper extremities are strong. - Labs CBC & Chem 7: 11/13/17 05:32 11/13/17 05:32 Labs: Abnormal Lab Results - Last 24 Hours (Table) 11/12/17 11/12/17 11/12/17 Range/Units 05:50 20:31 21:07 WBC (3.8-10.6) k/uL RBC (3.80-5.40) m/uL Hgb (11.4-16.0) gm/dL Hct (34.0-46.0) % RDW (11.5-15.5) % Neutrophils # (1.3-7.7) k/uL Lymphocytes # (1.0-4.8) k/uL Sodium (137-145) mmol/L Potassium (3.5-5.1) mmol/L Chloride (98-107) mmol/L BUN (7-17) mg/dL Creatinine (0.52-1.04) mg/dL Glucose (74-99) mg/dL POC Glucose (mg/dL) 329 H 276 H (75-99) mg/dL Hemoglobin A1c 6.6 H (4.0-6.0) % Phosphorus (2.5-4.5) mg/dL Magnesium (1.6-2.3) mg/dL 11/12/17 11/12/17 11/13/17 Range/Units 21:48 23:53 02:18 WBC (3.8-10.6) k/uL RBC (3.80-5.40) m/uL Hgb (11.4-16.0) gm/dL Hct (34.0-46.0) % RDW (11.5-15.5) % Neutrophils # (1.3-7.7) k/uL Lymphocytes # (1.0-4.8) k/uL Sodium (137-145) mmol/L Potassium (3.5-5.1) mmol/L Chloride (98-107) mmol/L BUN (7-17) mg/dL Creatinine (0.52-1.04) mg/dL Glucose (74-99) mg/dL POC Glucose (mg/dL) 208 H 152 H 159 H (75-99) mg/dL Hemoglobin A1c (4.0-6.0) % Phosphorus (2.5-4.5) mg/dL Magnesium (1.6-2.3) mg/dL 11/13/17 11/13/17 11/13/17 Range/Units 04:15 05:32 05:32 WBC 15.2 H (3.8-10.6) k/uL RBC 2.92 L (3.80-5.40) m/uL Hgb 8.8 L (11.4-16.0) gm/dL Hct 28.2 L (34.0-46.0) % RDW 17.1 H (11.5-15.5) % Neutrophils # 13.9 H (1.3-7.7) k/uL Lymphocytes # 0.8 L (1.0-4.8) k/uL Sodium 132 L (137-145) mmol/L Potassium 5.7 H (3.5-5.1) mmol/L Chloride 94 L (98-107) mmol/L BUN 59 H (7-17) mg/dL Creatinine 5.60 H* (0.52-1.04) mg/dL Glucose 154 H (74-99) mg/dL POC Glucose (mg/dL) 166 H (75-99) mg/dL Hemoglobin A1c (4.0-6.0) % Phosphorus 6.1 H (2.5-4.5) mg/dL Magnesium 2.5 H (1.6-2.3) mg/dL 11/13/17 11/13/17 11/13/17 Range/Units 05:55 08:13 10:12 WBC (3.8-10.6) k/uL RBC (3.80-5.40) m/uL Hgb (11.4-16.0) gm/dL Hct (34.0-46.0) % RDW (11.5-15.5) % Neutrophils # (1.3-7.7) k/uL Lymphocytes # (1.0-4.8) k/uL Sodium (137-145) mmol/L Potassium (3.5-5.1) mmol/L Chloride (98-107) mmol/L BUN (7-17) mg/dL Creatinine (0.52-1.04) mg/dL Glucose (74-99) mg/dL POC Glucose (mg/dL) 188 H 227 H 263 H (75-99) mg/dL Hemoglobin A1c (4.0-6.0) % Phosphorus (2.5-4.5) mg/dL Magnesium (1.6-2.3) mg/dL 11/13/17 11/13/17 11/13/17 Range/Units 11:54 14:51 16:18 WBC (3.8-10.6) k/uL RBC (3.80-5.40) m/uL Hgb (11.4-16.0) gm/dL Hct (34.0-46.0) % RDW (11.5-15.5) % Neutrophils # (1.3-7.7) k/uL Lymphocytes # (1.0-4.8) k/uL Sodium (137-145) mmol/L Potassium (3.5-5.1) mmol/L Chloride (98-107) mmol/L BUN (7-17) mg/dL Creatinine (0.52-1.04) mg/dL Glucose (74-99) mg/dL POC Glucose (mg/dL) 217 H 142 H 162 H (75-99) mg/dL Hemoglobin A1c (4.0-6.0) % Phosphorus (2.5-4.5) mg/dL Magnesium (1.6-2.3) mg/dL 11/13/17 11/13/17 Range/Units 18:24 19:57 WBC (3.8-10.6) k/uL RBC (3.80-5.40) m/uL Hgb (11.4-16.0) gm/dL Hct (34.0-46.0) % RDW (11.5-15.5) % Neutrophils # (1.3-7.7) k/uL Lymphocytes # (1.0-4.8) k/uL Sodium (137-145) mmol/L Potassium (3.5-5.1) mmol/L Chloride (98-107) mmol/L BUN (7-17) mg/dL Creatinine (0.52-1.04) mg/dL Glucose (74-99) mg/dL POC Glucose (mg/dL) 186 H 196 H (75-99) mg/dL Hemoglobin A1c (4.0-6.0) % Phosphorus (2.5-4.5) mg/dL Magnesium (1.6-2.3) mg/dL Microbiology - Last 24 Hours (Table) 11/09/17 10:22 Blood Culture - Preliminary Blood No Growth after 96 hours Laboratory Results WBC 15.2 k/uL (3.8-10.6) H 11/13/17 05:32 RBC 2.92 m/uL (3.80-5.40) L 11/13/17 05:32 Hgb 8.8 gm/dL (11.4-16.0) L 11/13/17 05:32 Hct 28.2 % (34.0-46.0) L 11/13/17 05:32 MCV 96.4 fL (80.0-100.0) 11/13/17 05:32 MCH 30.3 pg (25.0-35.0) 11/13/17 05:32 MCHC 31.4 g/dL (31.0-37.0) 11/13/17 05:32 RDW 17.1 % (11.5-15.5) H 11/13/17 05:32 Plt Count 266 k/uL (150-450) 11/13/17 05:32 Neutrophils % 91 % 11/13/17 05:32 Lymphocytes % 5 % 11/13/17 05:32 Monocytes % 3 % 11/13/17 05:32 Eosinophils % 0 % 11/13/17 05:32 Basophils % 0 % 11/13/17 05:32 Neutrophils # 13.9 k/uL (1.3-7.7) H 11/13/17 05:32 Lymphocytes # 0.8 k/uL (1.0-4.8) L 11/13/17 05:32 Monocytes # 0.4 k/uL (0-1.0) 11/13/17 05:32 Eosinophils # 0.0 k/uL (0-0.7) 11/13/17 05:32 Basophils # 0.0 k/uL (0-0.2) 11/13/17 05:32 Hypochromasia Moderate 11/13/17 05:32 Anisocytosis Slight 11/13/17 05:32 Macrocytosis Slight 11/13/17 05:32 PT 10.8 sec (9.0-12.0) 11/10/17 05:07 INR 1.1 (<1.2) 11/10/17 05:07 APTT 27.5 sec (22.0-30.0) 11/10/17 05:07 Sample Site rrad 11/11/17 08:43 ABG pH 7.35 (7.35-7.45) 11/11/17 08:43 ABG pCO2 52 mmHg (35-45) H 11/11/17 08:43 ABG pO2 61 mmHg (83-108) L 11/11/17 08:43 ABG HCO3 29 mmol/L (21-25) H 11/11/17 08:43 ABG Total CO2 30 mmol/L (19-24) H 11/11/17 08:43 ABG O2 Saturation 88.9 % (94-97) L 11/11/17 08:43 ABG Base Excess 3.3 mmol/L 11/11/17 08:43 Braydon Test Yes 11/11/17 08:43 FiO2 35 % 11/11/17 08:43 Sodium 132 mmol/L (137-145) L 11/13/17 05:32 Potassium 5.7 mmol/L (3.5-5.1) H 11/13/17 05:32 Chloride 94 mmol/L (98-107) L 11/13/17 05:32 Carbon Dioxide 26 mmol/L (22-30) 11/13/17 05:32 Anion Gap 12 mmol/L 11/13/17 05:32 BUN 59 mg/dL (7-17) H 11/13/17 05:32 Creatinine 5.60 mg/dL (0.52-1.04) H* 11/13/17 05:32 Est GFR (CKD-EPI)AfAm 8 (>60 ml/min/1.73 sqM) 11/13/17 05:32 Est GFR (CKD-EPI)NonAf 7 (>60 ml/min/1.73 sqM) 11/13/17 05:32 Glucose 154 mg/dL (74-99) H 11/13/17 05:32 POC Glucose (mg/dL) 196 mg/dL (75-99) H 11/13/17 19:57 POC Glu Sales[employer] ID Charlotte Platt 11/13/17 19:[address] Glu mg/dL 143 11/12/17 05:50 Hemoglobin A1c 6.6 % (4.0-6.0) H 11/12/17 05:50 Lactic Ac Sepsis Rflx Y 11/09/17 21:15 Plasma Lactic Acid Satinder 1.7 mmol/L (0.7-2.0) 11/10/17 05:07 Calcium 9.2 mg/dL (8.4-10.2) 11/13/17 05:32 Phosphorus 6.1 mg/dL (2.5-4.5) H 11/13/17 05:32 Magnesium 2.5 mg/dL (1.6-2.3) H 11/13/17 05:32 Iron 28 ug/dL (50-170) L 11/11/17 05:57 TIBC 251 ug/dL (228-460) 11/11/17 05:57 Iron Saturation 11.16 (12.00-45.00) L 11/11/17 05:57 Ferritin 542.4 ng/mL (10.0-291.0) H 11/11/17 05:57 Total Bilirubin 0.5 mg/dL (0.2-1.3) 11/10/17 05:07 AST 24 U/L (14-36) 11/10/17 05:07 ALT 33 U/L (9-52) 11/10/17 05:07 Alkaline Phosphatase 106 U/L (38-126) 11/10/17 05:07 Total Creatine Kinase 35 U/L (30-135) 11/09/17 10:22 CK-MB (CK-2) <0.2 ng/mL (0.0-2.4) 11/09/17 10:22 CK-MB (CK-2) Rel Index 11/09/17 10:22 Troponin I <0.012 ng/mL (0.000-0.034) 11/09/17 10:22 Total Protein 5.9 g/dL (6.3-8.2) L 11/10/17 05:07 Albumin 3.0 g/dL (3.5-5.0) L 11/10/17 05:07 Urine Color Yellow 11/09/17 11:17 Urine Appearance Cloudy (Clear) H 11/09/17 11:17 Urine pH 5.0 (5.0-8.0) 11/09/17 11:17 Ur Specific [place] 1.020 (1.001-1.035) 11/09/17 11:17 Urine Protein 1+ (Negative) H 11/09/17 11:17 Urine Glucose (UA) Negative (Negative) 11/09/17 11:17 Urine Ketones Trace (Negative) H 11/09/17 11:17 Urine Blood Trace (Negative) H 11/09/17 11:17 Urine Nitrite Negative (Negative) 11/09/17 11:17 Urine Bilirubin 1+ (Negative) H 11/09/17 11:17 Urine Urobilinogen 3.0 mg/dL (<2.0) 11/09/17 11:17 Ur Leukocyte Esterase Moderate (Negative) H 11/09/17 11:17 Urine RBC 1 /hpf (0-5) 11/09/17 11:17 Urine WBC 5 /hpf (0-5) 11/09/17 11:17 Ur Squamous Epith Cells 5 /hpf (0-4) H 11/09/17 11:17 Hyaline Casts 20 /lpf (0-2) H 11/09/17 11:17 Urine Mucus Rare /hpf (None) H 11/09/17 11:17 Random Vancomycin 22.4 ug/mL 11/13/17 05:32 Microbiology 11/09/17 10:22 Blood Blood Culture - Preliminary No Growth after 96 hours 11/09/17 11:17 Urine,Catheterized Urine Culture - Final Assessment and Plan (1) Ischemic colitis Narrative/Plan: Patient was originally evaluated in the intensive care unit awaiting her transfer out of the ICU. At presentation she is having difficulties with increasing shortness of breath and evidence of sepsis. She's been initiated antibiotic therapy with Zosyn and vancomycin. There is concerns to a colitis occurring by the computed tomography scan findings and has been evaluated by gastroenterology with concern to ischemic colitis. Without profuse diarrhea about thought not to be infectious at this time. She has had difficulties with urinary tract infections with E. coli that is quinolone resistant. Earlier this year she did have MRSA pneumonia. Continue current antibiotic therapy while cultures are in process. She is more stable will move out of the ICU today. Hopefully we'll be able to have further dialysis sessions to improve her volume status. She did have a temperature 101.8 and is noted cultures are in process. Ischemic colitis could result in fever has continued underlying urinary infection. Supportive care is being given and gastroenterology is following. She tolerated some food today without significant pain. Currently wondering if she will go to rehab at discharge. [id number] patient of further improvement. She will to eat her dinner without great difficulties. No nausea or emesis. Does have some baseline shortness of breath that is without acute change. At this time no other new positive cultures and the vancomycin is discontinued, the Zosyn was continued for the colitis which is loudest significant improvement. Her diarrhea has definitely improved. The progress is related to her daughter who is present. Current Visit: Yes Status: Acute Code(s): K55.9 - VASCULAR DISORDER OF INTESTINE, UNSPECIFIED SNOMED Code(s): 06941616 (2) UTI (urinary tract infection) Current Visit: No Status: Acute Code(s): N39.0 - URINARY TRACT INFECTION, SITE NOT SPECIFIED SNOMED Code(s): 62488295 (3) Leukocytosis Current Visit: No Status: Acute Code(s): D72.829 - ELEVATED WHITE BLOOD CELL COUNT, UNSPECIFIED SNOMED Code(s): 966771940
[2017-11-13 22:01] LABS: Glucose,Whole Blood 209 mg/dL (75-99)
[2017-11-14 00:12] LABS: Glucose,Whole Blood 241 mg/dL (75-99)
[2017-11-14] MEDS: methylPREDNISolone SOD SUCCI 125 MG/2 ML VIAL IV SCH ×2 (00:23→07:08)
[2017-11-14 02:20] LABS: Glucose,Whole Blood 202 mg/dL (75-99)
[2017-11-14] MEDS: INSULIN ASPART 100 UNIT/ML 1 ML 10 ML VIAL SQ SCH ×5 (03:00→17:48)
[2017-11-14 03:52] LABS: Glucose,Whole Blood 166 mg/dL (75-99)
[2017-11-14 06:04] LABS: Glucose,Whole Blood 181 mg/dL (75-99)
[2017-11-14 06:16] LABS: Anisocytosis Slight; Basophils % (A) 0 %; Eosinophils % (A) 0 %; HCT 29.3 % (34.0-46.0); HGB 8.8 gm/dL (11.4-16.0); Hypochromasia Moderate; Lymphocytes # (A) 0.6 k/uL (1.0-4.8); Lymphocytes % (A) 5 %; MCH 29.3 pg (25.0-35.0); MCHC 30.2 g/dL (31.0-37.0); MCV 96.9 fL (80.0-100.0); Macrocytosis Slight; Mean Platelet Volume 7.8; Monocytes # (A) 0.4 k/uL (0-1.0); Monocytes % (A) 4 %; Neutrophils % (A) 90 %; Platelet Count 242 k/uL (150-450); RBC 3.02 m/uL (3.80-5.40); RDW 17.4 % (11.5-15.5); WBC 11.2 k/uL (3.8-10.6)
[2017-11-14 06:45] LABS: Calcium 8.9 mg/dL (8.4-10.2); Magnesium 2.5 mg/dL (1.6-2.3); Phosphorus 5.9 mg/dL (2.5-4.5); Potassium 5.2 mmol/L (3.5-5.1)
[2017-11-14] MEDS: PANTOPRAZOLE 40 MG TABLET PO SCH (07:10)
[2017-11-14] MEDS: SEVELAMER 800 MG TAB PO SCH ×3 (07:10→17:49)
[2017-11-14 07:49] LABS: Glucose,Whole Blood 338 mg/dL (75-99)
[2017-11-14 08:08] LABS: Vancomycin,Random 18.2 ug/mL
[2017-11-14] MEDS: PIPERACILLIN-TAZOBACTAM 3.375 GM in DEXTROSE/WATER 1 50ML.BAG IVPB SCH ×2 (08:27→20:54)
--- NOTE | 2017-11-14 08:29 | P.PN ---
Subjective Patient is seen in follow-up for end-stage renal disease. She is maintained on hemodialysis on a Monday schedule via left upper extremity AV fistula. She currently denies any diarrhea. She is tolerating oral intake. Still admits to dyspnea intermittently. She is currently on an insulin drip as blood sugars have been running high from the steroids. Vital signs are stable. General: The patient appeared well nourished and normally developed. HEENT: Head exam is unremarkable. Neck is without jugular venous distension. LUNGS: Lungs are clear to auscultation and percussion. Breath sounds decreased. HEART: Rate and Rhythm are regular. First and second heart sounds normal. No murmurs, rubs or gallops. ABDOMEN: Abdominal exam reveals normal bowel sounds. Non-tender and non- distended. No evidence of peritonitis. EXTREMITITES: No clubbing, cyanosis, or edema. Objective - Vital Signs Vital signs: Vital Signs Temp 96.3 F L 11/14/17 04:00 Pulse 67 11/14/17 04:00 Resp 16 11/14/17 04:00 BP 162/72 11/14/17 04:00 Pulse Ox 99 11/14/17 04:00 Intake & Output 11/13/17 11/14/17 11/14/17 18:59 06:59 18:59 Intake Total 519.999 241.169 6.212 Balance 519.999 241.169 6.212 Weight 87.5 kg Intake: Intake, IV Titration 159.999 121.169 6.212 Amount Insulin Regular 100 unit 9.999 71.169 6.212 In Sodium Chloride 0.9% 100 ml @ Titrate IV .Q0M JONEL Rx#:[id number] Piperacillin-Tazobactam 3 50 50 .375 gm In Dextrose/Water 1 50ml.bag @ 12.5 mls/hr IVPB Q12HR JONEL Rx#: [id number] Sodium Ferric Gluconat- 100 Sucrose 125 mg In Sodium Chloride 0.9% 100 ml @ 100 mls/hr IVPB DAILY JONEL Rx#:[id number] Oral 360 120 Other: Voiding Method Bedpan # Voids 0 - Labs CBC & Chem 7: 11/14/17 05:27 11/14/17 05:27 Labs: Abnormal Lab Results - Last 24 Hours (Table) 11/12/17 11/13/17 11/13/17 Range/Units 05:50 10:12 11:54 WBC (3.8-10.6) k/uL RBC (3.80-5.40) m/uL Hgb (11.4-16.0) gm/dL Hct (34.0-46.0) % MCHC (31.0-37.0) g/dL RDW (11.5-15.5) % Neutrophils # (1.3-7.7) k/uL Lymphocytes # (1.0-4.8) k/uL Sodium (137-145) mmol/L Potassium (3.5-5.1) mmol/L Chloride (98-107) mmol/L BUN (7-17) mg/dL Creatinine (0.52-1.04) mg/dL Glucose (74-99) mg/dL POC Glucose (mg/dL) 263 H 217 H (75-99) mg/dL Hemoglobin A1c 6.6 H (4.0-6.0) % Phosphorus (2.5-4.5) mg/dL Magnesium (1.6-2.3) mg/dL 11/13/17 11/13/17 11/13/17 Range/Units 14:51 16:18 18:24 WBC (3.8-10.6) k/uL RBC (3.80-5.40) m/uL Hgb (11.4-16.0) gm/dL Hct (34.0-46.0) % MCHC (31.0-37.0) g/dL RDW (11.5-15.5) % Neutrophils # (1.3-7.7) k/uL Lymphocytes # (1.0-4.8) k/uL Sodium (137-145) mmol/L Potassium (3.5-5.1) mmol/L Chloride (98-107) mmol/L BUN (7-17) mg/dL Creatinine (0.52-1.04) mg/dL Glucose (74-99) mg/dL POC Glucose (mg/dL) 142 H 162 H 186 H (75-99) mg/dL Hemoglobin A1c (4.0-6.0) % Phosphorus (2.5-4.5) mg/dL Magnesium (1.6-2.3) mg/dL 11/13/17 11/13/17 11/14/17 Range/Units 19:57 22:00 00:11 WBC (3.8-10.6) k/uL RBC (3.80-5.40) m/uL Hgb (11.4-16.0) gm/dL Hct (34.0-46.0) % MCHC (31.0-37.0) g/dL RDW (11.5-15.5) % Neutrophils # (1.3-7.7) k/uL Lymphocytes # (1.0-4.8) k/uL Sodium (137-145) mmol/L Potassium (3.5-5.1) mmol/L Chloride (98-107) mmol/L BUN (7-17) mg/dL Creatinine (0.52-1.04) mg/dL Glucose (74-99) mg/dL POC Glucose (mg/dL) 196 H 209 H 241 H (75-99) mg/dL Hemoglobin A1c (4.0-6.0) % Phosphorus (2.5-4.5) mg/dL Magnesium (1.6-2.3) mg/dL 11/14/17 11/14/17 11/14/17 Range/Units 02:18 03:51 05:27 WBC 11.2 H (3.8-10.6) k/uL RBC 3.02 L (3.80-5.40) m/uL Hgb 8.8 L (11.4-16.0) gm/dL Hct 29.3 L (34.0-46.0) % MCHC 30.2 L (31.0-37.0) g/dL RDW 17.4 H (11.5-15.5) % Neutrophils # 10.0 H (1.3-7.7) k/uL Lymphocytes # 0.6 L (1.0-4.8) k/uL Sodium (137-145) mmol/L Potassium (3.5-5.1) mmol/L Chloride (98-107) mmol/L BUN (7-17) mg/dL Creatinine (0.52-1.04) mg/dL Glucose (74-99) mg/dL POC Glucose (mg/dL) 202 H 166 H (75-99) mg/dL Hemoglobin A1c (4.0-6.0) % Phosphorus (2.5-4.5) mg/dL Magnesium (1.6-2.3) mg/dL 11/14/17 11/14/17 11/14/17 Range/Units 05:27 06:02 07:29 WBC (3.8-10.6) k/uL RBC (3.80-5.40) m/uL Hgb (11.4-16.0) gm/dL Hct (34.0-46.0) % MCHC (31.0-37.0) g/dL RDW (11.5-15.5) % Neutrophils # (1.3-7.7) k/uL Lymphocytes # (1.0-4.8) k/uL Sodium 133 L (137-145) mmol/L Potassium 5.2 H (3.5-5.1) mmol/L Chloride 96 L (98-107) mmol/L BUN 59 H (7-17) mg/dL Creatinine 5.10 H* (0.52-1.04) mg/dL Glucose 148 H (74-99) mg/dL POC Glucose (mg/dL) 181 H 338 H (75-99) mg/dL Hemoglobin A1c (4.0-6.0) % Phosphorus 5.9 H (2.5-4.5) mg/dL Magnesium 2.5 H (1.6-2.3) mg/dL Microbiology - Last 24 Hours (Table) 11/09/17 10:22 Blood Culture - Preliminary Blood No Growth after 96 hours Assessment and Plan Plan: Assessment: 1. End-stage renal disease maintained on hemodialysis on a Monday schedule via left upper extremity AV fistula. 2. Hypotension status post IV fluids. Maintained on midodrine. Resolved. 3. Colitis in the cecum and ascending colon noted on CAT scan maintained on antibiotics. Possibly ischemic colitis. Not having diarrhea. GI following as well. 4. Anemia of chronic kidney disease. Iron deficiency noted. No active bleeding noted. 5. 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 Phosphorus level 5.5. 6. Diastolic CHF. 7. Hyperkalemia secondary to chronic kidney disease. Hypoglycemia also contributing factor. 8. Hypertonic hyponatremia secondary to hyperglycemia. Plan: Hemodialysis today with goal 3-4 L ultrafiltration as tolerated. Ferrlecit 125 mg IV daily for 3 days. Second dose today. Maintain Aranesp. Low potassium diet. Steroids pain weaned off.
--- NOTE | 2017-11-14 08:31 | P.PN ---
Subjective Progress Note Date: 11/14/17 Principal diagnosis: CAD/paroxysmal atrial fibrillation This is a pleasant 72-year-old female patient who sees Dr. Combs in the office. She hasn't passed medical history significant for coronary artery disease stenting of the LAD in July 2017 and stenting of the left circumflex in August 2017, end-stage renal disease on hemodialysis, hypertension, paroxysmal atrial fibrillation and dyslipidemia as well as diabetes. She was admitted to the hospital for overall not feeling well. Family noticed progressive weakness and she was feeling very tired and fatigued and unable to get up from a sitting position. She also had high blood sugars at home. She did not have any shortness of breath, chest discomfort. Patient was febrile at home. Because of suspected sepsis the patient was admitted to intensive care unit and cultures have been done. CT scan of the abdomen and pelvis showed possible ischemic colitis. We were asked see the patient in consult because of a hemoglobin drop and patient is on anticoagulation for PAF. No obvious upper or lower GI bleeding. Eliquis has been on hold and plavix continues. On follow-up with the patient today, she is feeling better than yesterday. Denies having any chest pain or chest discomfort. She is slightly short of breath. She is going to have dialysis today and after dialysis she'll feel better internal shortness of breath and also the blood pressure will come down. I am going to add the oral anticoagulation with Eliquis. Objective - Vital Signs Vital signs: Vital Signs Temp 96.3 F L 11/14/17 04:00 Pulse 67 11/14/17 04:00 Resp 16 11/14/17 04:00 BP 162/72 11/14/17 04:00 Pulse Ox 99 11/14/17 04:00 Intake & Output 11/13/17 11/14/17 11/14/17 18:59 06:59 18:59 Intake Total 519.999 241.169 6.212 Balance 519.999 241.169 6.212 Weight 87.5 kg Intake: Intake, IV Titration 159.999 121.169 6.212 Amount Insulin Regular 100 unit 9.999 71.169 6.212 In Sodium Chloride 0.9% 100 ml @ Titrate IV .Q0M [facility] Rx#:[id number] Piperacillin-Tazobactam 3 50 50 .375 gm In Dextrose/Water 1 50ml.bag @ 12.5 mls/hr IVPB Q12HR [facility] Rx#: [id number] Sodium Ferric Gluconat- 100 Sucrose 125 mg In Sodium Chloride 0.9% 100 ml @ 100 mls/hr IVPB DAILY [facility] Rx#:[id number] Oral 360 120 Other: Voiding Method Bedpan # Voids 0 - Constitutional General appearance: Present: no acute distress - Respiratory Respiratory: bilateral: diminished - Cardiovascular Heart sounds: normal: S1, S2 - Labs CBC & Chem 7: 11/14/17 05:27 11/14/17 05:27 Labs: Abnormal Lab Results - Last 24 Hours (Table) 11/12/17 11/13/17 11/13/17 Range/Units 05:50 10:12 11:54 WBC (3.8-10.6) k/uL RBC (3.80-5.40) m/uL Hgb (11.4-16.0) gm/dL Hct (34.0-46.0) % MCHC (31.0-37.0) g/dL RDW (11.5-15.5) % Neutrophils # (1.3-7.7) k/uL Lymphocytes # (1.0-4.8) k/uL Sodium (137-145) mmol/L Potassium (3.5-5.1) mmol/L Chloride (98-107) mmol/L BUN (7-17) mg/dL Creatinine (0.52-1.04) mg/dL Glucose (74-99) mg/dL POC Glucose (mg/dL) 263 H 217 H (75-99) mg/dL Hemoglobin A1c 6.6 H (4.0-6.0) % Phosphorus (2.5-4.5) mg/dL Magnesium (1.6-2.3) mg/dL 11/13/17 11/13/17 11/13/17 Range/Units 14:51 16:18 18:24 WBC (3.8-10.6) k/uL RBC (3.80-5.40) m/uL Hgb (11.4-16.0) gm/dL Hct (34.0-46.0) % MCHC (31.0-37.0) g/dL RDW (11.5-15.5) % Neutrophils # (1.3-7.7) k/uL Lymphocytes # (1.0-4.8) k/uL Sodium (137-145) mmol/L Potassium (3.5-5.1) mmol/L Chloride (98-107) mmol/L BUN (7-17) mg/dL Creatinine (0.52-1.04) mg/dL Glucose (74-99) mg/dL POC Glucose (mg/dL) 142 H 162 H 186 H (75-99) mg/dL Hemoglobin A1c (4.0-6.0) % Phosphorus (2.5-4.5) mg/dL Magnesium (1.6-2.3) mg/dL 11/13/17 11/13/17 11/14/17 Range/Units 19:57 22:00 00:11 WBC (3.8-10.6) k/uL RBC (3.80-5.40) m/uL Hgb (11.4-16.0) gm/dL Hct (34.0-46.0) % MCHC (31.0-37.0) g/dL RDW (11.5-15.5) % Neutrophils # (1.3-7.7) k/uL Lymphocytes # (1.0-4.8) k/uL Sodium (137-145) mmol/L Potassium (3.5-5.1) mmol/L Chloride (98-107) mmol/L BUN (7-17) mg/dL Creatinine (0.52-1.04) mg/dL Glucose (74-99) mg/dL POC Glucose (mg/dL) 196 H 209 H 241 H (75-99) mg/dL Hemoglobin A1c (4.0-6.0) % Phosphorus (2.5-4.5) mg/dL Magnesium (1.6-2.3) mg/dL 11/14/17 11/14/17 11/14/17 Range/Units 02:18 03:51 05:27 WBC 11.2 H (3.8-10.6) k/uL RBC 3.02 L (3.80-5.40) m/uL Hgb 8.8 L (11.4-16.0) gm/dL Hct 29.3 L (34.0-46.0) % MCHC 30.2 L (31.0-37.0) g/dL RDW 17.4 H (11.5-15.5) % Neutrophils # 10.0 H (1.3-7.7) k/uL Lymphocytes # 0.6 L (1.0-4.8) k/uL Sodium (137-145) mmol/L Potassium (3.5-5.1) mmol/L Chloride (98-107) mmol/L BUN (7-17) mg/dL Creatinine (0.52-1.04) mg/dL Glucose (74-99) mg/dL POC Glucose (mg/dL) 202 H 166 H (75-99) mg/dL Hemoglobin A1c (4.0-6.0) % Phosphorus (2.5-4.5) mg/dL Magnesium (1.6-2.3) mg/dL 11/14/17 11/14/17 11/14/17 Range/Units 05:27 06:02 07:29 WBC (3.8-10.6) k/uL RBC (3.80-5.40) m/uL Hgb (11.4-16.0) gm/dL Hct (34.0-46.0) % MCHC (31.0-37.0) g/dL RDW (11.5-15.5) % Neutrophils # (1.3-7.7) k/uL Lymphocytes # (1.0-4.8) k/uL Sodium 133 L (137-145) mmol/L Potassium 5.2 H (3.5-5.1) mmol/L Chloride 96 L (98-107) mmol/L BUN 59 H (7-17) mg/dL Creatinine 5.10 H* (0.52-1.04) mg/dL Glucose 148 H (74-99) mg/dL POC Glucose (mg/dL) 181 H 338 H (75-99) mg/dL Hemoglobin A1c (4.0-6.0) % Phosphorus 5.9 H (2.5-4.5) mg/dL Magnesium 2.5 H (1.6-2.3) mg/dL Microbiology - Last 24 Hours (Table) 11/09/17 10:22 Blood Culture - Preliminary Blood No Growth after 96 hours Assessment and Plan Assessment: Assessment #1 sepsis of unknown source at this point. #2 possible ischemic colitis #3 acute blood loss. GI bleeding to be ruled out #4 coronary artery disease and status post a stenting of the LAD and left circumflex #5 paroxysmal atrial fibrillation #6 end Stage renal disease on hemodialysis Plan #1 add the Eliquis #2 continue monitor the hemoglobin #3 follow-up with the patient.
[2017-11-14] MEDS ORDERED: VANCOMYCIN 1,500 MG in SODIUM CHLORIDE 0.9% 250 ML IVPB ONE (09:00)
[2017-11-14 09:30] LABS: Glucose,Whole Blood 238 mg/dL (75-99)
[2017-11-14] MEDS: INSULIN DETEMIR 100 UNIT/ML 10 ML VIAL SQ SCH ×2 (09:31→20:54)
[2017-11-14] MEDS ORDERED: MAGNESIUM HYDROXIDE 2,400 MG/10 ML CUP PO PRN (09:37)
--- NOTE | 2017-11-14 11:05 | P.PN ---
Subjective Progress Note Date: 11/14/17 72-year-old female patient of Dr. Villanueva with past medical history of atrial fibrillation, coronary artery disease status post myocardial infarction, history of triple-vessel disease disease and was considered high risk for bypass on conservative treatment, chronic diastolic heart failure, diabetes, hyperlipidemia, hypertension, end-stage renal disease on hemodialysis , peripheral neuropathy presents with sudden onset of fever, weakness associated 1 episode of vomiting on BiPAP yesterday. Vital signs is suggestive of a temp of 100.1 pulse 110 sinus, blood pressure 123/74. Labs were positive for leukocytosis of 22.7, hemoglobin 11.1, potassium 6.8, sodium 135 chloride 95 , BUN 50, creatinine 6.24, glucose 354, lactic acid 4.9 increased AST and a alkaline phosphatase. Urinalysis suggestive of dehydration Sonya in appearance, with moderate leukocyte esterase but only 5 WBCs with 20 hyalin cast. Patient received 1 L of IV fluid and is maintained on 100 mL per hour. She underwent treatment for hyperkalemia including calcium chloride , dextrose and insulin, and 15 mg of albuterol and Kayexalate. patient got vancomycin and Zosyn for broad-spectrum coverage. Will be moved to the ICU for severe sepsis with urgent dialysis performed in the ER. And was just discharged on October 26 with improvement in her WBCs. She was admitted that time for hyperkalemia and fluid overload. 11/10 and patient examined with site appears better than yesterday is more alert. Patient required multiple boluses of IV fluid due to drop in blood pressure. Blood pressures bedside today is 96/56. The patient completed dialysis yesterday, no plan for dialysis today. Continue to complain of abdominal pain x-ray, CT abdomen concerning for infiltrate or change in the ascending colon and cecum concerning for infectious versus inflammatory versus ischemic colitis. Continue antibiotic coverage with vancomycin and Zosyn. Infectious disease recommendation pending. Labs suggest improvement in leukocytosis from 22 to 13. His hemoglobin dropped from 11.1-8.4 lactic acid improved from 6-1.7 with fluid boluses. Some improvement since starting patient continues to be nothing by mouth insulin sliding scale. Would recommend 500 mL of IV bolus before transfer to the selective 11/11:Patient had a rough night and stated that she continues to be short of breath patient does not feel any improvement since admission and thinks that she 's slightly worse. 11/12:Patient is feeling much better since starting IV steroids and stated that she is at least 50% improved since yesterday currently on nasal cannula tolerating without difficulties patient stated that she is normally at home without oxygen and likes to be in bed more than in chair 11/13: Patient became hemodynamically stable over the weekend was transferred out of the intensive care unit to [facility] care. Patient is followed by multiple consultants. Dr. Manrique is planning for hemodialysis today. She has been started on Ferrlecit for 3 day course starting today. Patient is also maintained on Aranesp and low potassium diet. She is followed by Dr. Locke and it has been maintained on IV antibiotics in the form of Zosyn and vancomycin. He is confused concern for also underlying urinary tract Infection and she was treated earlier this year for MRSA pneumonia. Urine culture has been finalized with no growth and blood cultures showing no growth after [address] Hanson has been following for intensive care management and patient has been on CPAP at her usual settings. Patient has history of obstructive sleep apnea. Dr. Macedo is following and has recommended holding oral anticoagulation for another 24 hours but continue Plavix. Patient is normally on eliquis. Hemoglobin is stable at 8.8, white count 15.2. Patient was started on IV Solu-Medrol over the weekend for colitis. BUN 59 creatinine 5.6 with potassium of 5.7. Capillary blood glucose running between 159 and 188. Patient states that she is feeling much improved. Anticipate discharge home tomorrow. 11/14: Patient has no new complaints. Breathing status is stable. She has been using BiPAP during the night and controlled by Dr. Fishman. Patient's insulin drip will be discontinued and patient will be resumed on Levemir at higher dose of 30 units twice daily, NovoLog scheduled 12 units with meals and scale. Solu- Medrol will be switched over to prednisone 40 mg daily. Eliquis will be resumed. Hemoglobin is stable at 8.8. She does complain of constipation for which Colace will be resumed and milk of magnesia. Plan for discharge tomorrow. Objective - Vital Signs Vital signs: Vital Signs Temp 97.8 F 11/14/17 08:30 Pulse 75 11/14/17 08:30 Resp 18 11/14/17 08:30 BP 152/67 11/14/17 08:30 Pulse Ox 96 11/14/17 08:30 Intake & Output 11/13/17 11/14/17 11/14/17 18:59 06:59 18:59 Intake Total 519.999 241.169 138.164 Balance 519.999 241.169 138.164 Weight 87.5 kg Intake: Intake, IV Titration 159.999 121.169 18.164 Amount Insulin Regular 100 unit 9.999 71.169 18.164 In Sodium Chloride 0.9% 100 ml @ Titrate IV .Q0M [facility] Rx#:[id number] Piperacillin-Tazobactam 3 50 50 .375 gm In Dextrose/Water 1 50ml.bag @ 12.5 mls/hr IVPB Q12HR [facility] Rx#: [id number] Sodium Ferric Gluconat- 100 Sucrose 125 mg In Sodium Chloride 0.9% 100 ml @ 100 mls/hr IVPB DAILY [facility] Rx#:[id number] Oral 360 120 120 Other: Voiding Method Bedpan # Voids 0 - Exam - Constitutional General appearance: no acute distress, obese - EENT Eyes: anicteric sclerae, PERRLA, normal appearance ENT: hearing grossly normal - Neck Neck: no lymphadenopathy, normal ROM, no other, no rigidity, no stridor, no thyromegaly - Respiratory Respiratory: bilateral: CTA, negative: diminished, dullness, rales, rhonchi - Cardiovascular Rhythm: Tachycardic but regular Heart sounds: normal: S1, S2 Abnormal Heart Sounds: no systolic murmur, no diastolic murmur, no rub, no S3 Gallop, no S4 Gallop, no click, no other - Gastrointestinal General gastrointestinal: normal bowel sounds, soft, diffusely tender - Integumentary Integumentary: no rash - Neurologic Neurologic: CNII-XII intact - Musculoskeletal Musculoskeletal: Generalized weakness with decreased power in bilateral lower extremity - Psychiatric Psychiatric: A&O x's 3, appropriate affect - Labs CBC & Chem 7: 11/14/17 05:27 11/14/17 05:27 Labs: Abnormal Lab Results - Last 24 Hours (Table) 11/12/17 11/13/17 11/13/17 Range/Units 05:50 10:12 11:54 WBC (3.8-10.6) k/uL RBC (3.80-5.40) m/uL Hgb (11.4-16.0) gm/dL Hct (34.0-46.0) % MCHC (31.0-37.0) g/dL RDW (11.5-15.5) % Neutrophils # (1.3-7.7) k/uL Lymphocytes # (1.0-4.8) k/uL Sodium (137-145) mmol/L Potassium (3.5-5.1) mmol/L Chloride (98-107) mmol/L BUN (7-17) mg/dL Creatinine (0.52-1.04) mg/dL Glucose (74-99) mg/dL POC Glucose (mg/dL) 263 H 217 H (75-99) mg/dL Hemoglobin A1c 6.6 H (4.0-6.0) % Phosphorus (2.5-4.5) mg/dL Magnesium (1.6-2.3) mg/dL 11/13/17 11/13/17 11/13/17 Range/Units 14:51 16:18 18:24 WBC (3.8-10.6) k/uL RBC (3.80-5.40) m/uL Hgb (11.4-16.0) gm/dL Hct (34.0-46.0) % MCHC (31.0-37.0) g/dL RDW (11.5-15.5) % Neutrophils # (1.3-7.7) k/uL Lymphocytes # (1.0-4.8) k/uL Sodium (137-145) mmol/L Potassium (3.5-5.1) mmol/L Chloride (98-107) mmol/L BUN (7-17) mg/dL Creatinine (0.52-1.04) mg/dL Glucose (74-99) mg/dL POC Glucose (mg/dL) 142 H 162 H 186 H (75-99) mg/dL Hemoglobin A1c (4.0-6.0) % Phosphorus (2.5-4.5) mg/dL Magnesium (1.6-2.3) mg/dL 11/13/17 11/13/17 11/14/17 Range/Units 19:57 22:00 00:11 WBC (3.8-10.6) k/uL RBC (3.80-5.40) m/uL Hgb (11.4-16.0) gm/dL Hct (34.0-46.0) % MCHC (31.0-37.0) g/dL RDW (11.5-15.5) % Neutrophils # (1.3-7.7) k/uL Lymphocytes # (1.0-4.8) k/uL Sodium (137-145) mmol/L Potassium (3.5-5.1) mmol/L Chloride (98-107) mmol/L BUN (7-17) mg/dL Creatinine (0.52-1.04) mg/dL Glucose (74-99) mg/dL POC Glucose (mg/dL) 196 H 209 H 241 H (75-99) mg/dL Hemoglobin A1c (4.0-6.0) % Phosphorus (2.5-4.5) mg/dL Magnesium (1.6-2.3) mg/dL 11/14/17 11/14/17 11/14/17 Range/Units 02:18 03:51 05:27 WBC 11.2 H (3.8-10.6) k/uL RBC 3.02 L (3.80-5.40) m/uL Hgb 8.8 L (11.4-16.0) gm/dL Hct 29.3 L (34.0-46.0) % MCHC 30.2 L (31.0-37.0) g/dL RDW 17.4 H (11.5-15.5) % Neutrophils # 10.0 H (1.3-7.7) k/uL Lymphocytes # 0.6 L (1.0-4.8) k/uL Sodium (137-145) mmol/L Potassium (3.5-5.1) mmol/L Chloride (98-107) mmol/L BUN (7-17) mg/dL Creatinine (0.52-1.04) mg/dL Glucose (74-99) mg/dL POC Glucose (mg/dL) 202 H 166 H (75-99) mg/dL Hemoglobin A1c (4.0-6.0) % Phosphorus (2.5-4.5) mg/dL Magnesium (1.6-2.3) mg/dL 11/14/17 11/14/1718 Range/Units 05:27 06:02 07:29 WBC (3.8-10.6) k/uL RBC (3.80-5.40) m/uL Hgb (11.4-16.0) gm/dL Hct (34.0-46.0) % MCHC (31.0-37.0) g/dL RDW (11.5-15.5) % Neutrophils # (1.3-7.7) k/uL Lymphocytes # (1.0-4.8) k/uL Sodium 133 L (137-145) mmol/L Potassium 5.2 H (3.5-5.1) mmol/L Chloride 96 L (98-107) mmol/L BUN 59 H (7-17) mg/dL Creatinine 5.10 H* (0.52-1.04) mg/dL Glucose 148 H (74-99) mg/dL POC Glucose (mg/dL) 181 H 338 H (75-99) mg/dL Hemoglobin A1c (4.0-6.0) % Phosphorus 5.9 H (2.5-4.5) mg/dL Magnesium 2.5 H (1.6-2.3) mg/dL 11/14/17 Range/Units 09:28 WBC (3.8-10.6) k/uL RBC (3.80-5.40) m/uL Hgb (11.4-16.0) gm/dL Hct (34.0-46.0) % MCHC (31.0-37.0) g/dL RDW (11.5-15.5) % Neutrophils # (1.3-7.7) k/uL Lymphocytes # (1.0-4.8) k/uL Sodium (137-145) mmol/L Potassium (3.5-5.1) mmol/L Chloride (98-107) mmol/L BUN (7-17) mg/dL Creatinine (0.52-1.04) mg/dL Glucose (74-99) mg/dL POC Glucose (mg/dL) 238 H (75-99) mg/dL Hemoglobin A1c (4.0-6.0) % Phosphorus (2.5-4.5) mg/dL Magnesium (1.6-2.3) mg/dL Microbiology - Last 24 Hours (Table) 11/09/17 10:22 Blood Culture - Preliminary Blood No Growth after 96 hours Assessment and Plan Plan: 1. Severe sepsis secondary to colitis of the cecum and ascending colon, possible ischemic colitis. Continue Zosyn and vancomycin. Consult with Dr. Locke is appreciated. Gastroenterology plan for possible colonoscopy. CT Abdomen positive for colitis. Solu-Medrol changed to prednisone. 2. Acute GI bleed with anemia of chronic disease. Patient has been seen by Dr. Vieyra and following closely for possible colonoscopy. Hemoglobin is currently stable and improving. Ferrlecit has been started by nephrology. Continue Aranesp. 3. Chronic diastolic heart failure. Continue hemodialysis per nephrology. Hold Lasix. Patient is normally on 80 mg twice daily. 4. History of moderate aortic stenosis. Continue Imdur 30 mg, Toprol 50 mg. Hold Lasix. 5. End-stage renal disease on hemodialysis Monday and Monday. Continue sevelamer 800 mg 3 times a day with meals 6. Hypertension cardiovascular disease. Continue amiodarone, Cardizem, Imdur, Toprol-XL. 5. Paroxysmal atrial fibrillation. Continue amiodarone 100 mg once daily, Cardizem 60 mg 3 times a day. Eliquis resumed. 6. History of myocardial infarction and coronary artery disease. Hold Toprol- XL 50 mg once daily, hold aspirin and Plavix for concern of GI bleed. Continue Zetia 10 mg once every day. Cardiology consult as patient has significant cardiovascular disease and is currently off anticoag 7. Diabetes mellitus type 2, insulin requiring uncontrolled with hyperglycemia secondary to steroids. Insulin drip will be discontinued and patient resumed back on scheduled Lantus twice daily at 30 units, scheduled NovoLog 12 units with each meal and scale. 8. GERD continue Protonix 40 mg once daily 9. History of hyperlipidemia intolerant of statins continue Zetia 10 mg once daily 10. Diabetic peripheral neuropathy continue gabapentin 300 mg twice daily 11. Recurrent depression. Continue Cymbalta 60 mg orally once daily 12. Anemia of chronic kidney disease 13. DVT prophylaxis. Eliquis resumed. Continue bilateral knee-high TERRIE hose 14. CODE STATUS full code Discharge plan: Return home. PT and OT in place. Impression and plan of care have been directed as dictated by the signing physician. Jessenia Convery nurse practitioner acting as scribe for signing physician.
--- NOTE | 2017-11-14 11:20 | P.PN ---
Subjective Progress Note Date: 11/14/17 Principal diagnosis: Acute sepsis of unclear etiology It is a 72-year-old female patient with end-stage renal disease currently on hemodialysis for an AV fistula in the left upper extremity was coming in with acute lethargy, weakness, fevers, chills, tachycardia and fatigue. The patient was suspected to be septic and she came in to the [facility] department. The daughter is noted the patient's blood sugars have been running high recently which could be another signs of an underlying infection/sepsis. The patient denied having any cough or sputum production. No pleurisy. No chest pain. No sore throat. No headaches. No neck stiffness. No dysuria frequency urgency. She has had previous urine checked infections with E. coli none of them being resistant microorganism. She has no open wounds or sores. She has some dry scabs in her lower extremities bilaterally yet there is no evidence of any cellulitis or soft tissue infection. No nausea. No vomiting. No diarrhea. She used to have a permacath in the past that was removed and currently she is using a fistula in the left upper extremity. Her white cell count is 22. Her hemoglobin is at 11.1. Her potassium level is at 6.8 and the patient is undergoing dialysis currently the [facility] department awaiting to be transferred to the ICU. She did have some lower blood pressure with a systolic in the mid 80s and she was given a 500 mL of bolus with dialysis. I asked him to give another liter bolus and dialysis. Her lactic acid level is at 4.9. She is receiving a 2K dialysis in regards to her hyperkalemia. On 11/10/2017, the patient is in the intensive care unit and she is being seen in follow-up. She is better compared to yesterday. She is afebrile hemodynamically stable. On and off she was having some lower blood pressure with a systolic blood pressure drop in the mid 80s. Her lactic acid level came up to 6.7 and based on that she was given additional liter of bolus and antibiotics was continued with a combination of Zosyn and vancomycin. On today' s evaluation, she is hemodynamically stable on no pressors. Nephrology saw the patient got IV fluids to KVO. She is afebrile. The patient had broad-spectrum antibiotics and the patient had cultures sent and the results are still pending for now. No positive cultures have been yielded yet. Meanwhile, the patient was treated for her hyperkalemia and she underwent dialysis yesterday and the follow-up potassium level is down to 4.9. CAT scan of the abdomen showed some nonspecific colitis involving the cecum and ascending colon which is probably inflammatory in nature. The patient does not have any significant abdominal pain. No nausea. No vomiting. No diarrhea. No previous history of any colitis being at infectious or C. diff colitis. No other complaints otherwise for now. She is resting comfortably in bed. No dialysis for today. The patient is seen again today 11/11/2017 in follow-up on the selective care unit. She is currently awake and alert. She is in some mild pulmonary distress. She is currently on the BiPAP and is feeling better. Blood gases on 35% FiO2 revealed a PaO2 of 61, pCO2 52 and a pH of 7.35. She is due for dialysis this morning. Current creatinine 5.10. He has remained afebrile. White count 12.4. Urine and blood cultures reveal no growth. She is currently on Zosyn and vancomycin. On today's evaluation, this 72-year-old here patient is feeling well. She got dialyzed yesterday and total of 4 L of fluid was removed. She is hemodynamically stable. She is afebrile. White cell count is normal. No mental status change. No shortness of breath. She remains on IV antibiotics with a combination of Zosyn and vancomycin. This is empiric antibiotic coverage suspecting an underlying septicemia. All of the cultures of been negative thus far. The patient is currently on CPAP at a pressure of 12 cm of water and this is at original setting that she uses even on outpatient basis. Nephrology is on the case. On 11/13/2017 patient seen in follow-up selective care unit. She is resting in bed, in no acute distress. She states her breathing is slightly short today, she remains on 4 L per nasal cannula with O2 sat at 94%, room air oxygen 80s 83% , she is afebrile, denies any fever or chills. Lung sounds are clear to auscultation, today's labs were reviewed, she is 15.2, and this has more than doubled since yesterday. Hemoglobin is 8.8, serum sodium is 132, potassium is 5.7, chloride is 94, BUN is 59, creatinine is 5.6. Patient will be having dialysis treatment today. Denies any coughing, denies any chest congestion, no wheezing noted. There is still has no clear indication for the source of abscess, and the patient remains on empiric antibiotics form of Zosyn and vancomycin. The patient is seen again today 11/14/2017 in follow-up on the selective care unit. She is awake and alert in no acute distress. She did receive hemodialysis yesterday with 2 L of fluid removed. She is receiving dialysis currently with the plans for 3-4 L today. She denies any worsening shortness of breath. She is currently laying flat in bed. He is maintaining good O2 saturations in the 90s on liters per minute per nasal cannula. She did utilize his CPAP last night. She's afebrile. Hemodynamically stable. Cultures reveal no growth. Urine culture reveals no growth. Remains on Zosyn. ID is on the case. Objective - Vital Signs Vital signs: Vital Signs Temp 97.8 F 11/14/17 08:30 Pulse 75 11/14/17 08:30 Resp 18 11/14/17 08:30 BP 152/67 11/14/17 08:30 Pulse Ox 96 11/14/17 08:30 Intake & Output 11/13/17 11/14/17 11/14/17 18:59 06:59 18:59 Intake Total 519.999 241.169 138.164 Balance 519.999 241.169 138.164 Weight 87.5 kg Intake: Intake, IV Titration 159.999 121.169 18.164 Amount Insulin Regular 100 unit 9.999 71.169 18.164 In Sodium Chloride 0.9% 100 ml @ Titrate IV .Q0M JONEL Rx#:[id number] Piperacillin-Tazobactam 3 50 50 .375 gm In Dextrose/Water 1 50ml.bag @ 12.5 mls/hr IVPB Q12HR JONEL Rx#: [id number] Sodium Ferric Gluconat- 100 Sucrose 125 mg In Sodium Chloride 0.9% 100 ml @ 100 mls/hr IVPB DAILY JONEL Rx#:[id number] Oral 360 120 120 Other: Voiding Method Bedpan Bedpan # Voids 0 - Exam Gen. appearance the patient is obese somewhat lethargic yet arousable and she was able to recognize myself. She denies having any acute respiratory distress and she is resting comfortably in bed as she is undergoing Hemodialysis. Head exam was generally normal. There was no scleral icterus or corneal arcus. Mucous membranes were moist. Neck was supple and without jugular venous distension, thyromegaly, or carotid bruits. Carotids were easily palpable bilaterally. There was no adenopathy. Lungs sounds are diminished bilaterally at it is clear and there is no wheezes or rhonchi or any crackles. Heart sounds are irregular, positive S1-S2 and there is a systolic ejection murmur grade 3/6 heard throughout the precordium. Abdominal exam revealed normal bowel sounds. The abdomen was soft, non-tender, and without masses, organomegaly, or appreciable enlargement of the abdominal aorta. Examination of the extremities revealed easily palpable radial, femoral and pedal pulses. There was no cyanosis, clubbing or edema. Examination of the skin revealed no evidence of significant rashes, suspicious appearing nevi or other concerning lesions. Neurologically the patient is awake and alert and there is no focal logical deficits Psychiatric intact - Labs CBC & Chem 7: 11/14/17 05:27 11/14/17 05:27 Labs: Abnormal Lab Results - Last 24 Hours (Table) 11/12/17 11/13/17 11/13/17 Range/Units 05:50 11:54 14:51 WBC (3.8-10.6) k/uL RBC (3.80-5.40) m/uL Hgb (11.4-16.0) gm/dL Hct (34.0-46.0) % MCHC (31.0-37.0) g/dL RDW (11.5-15.5) % Neutrophils # (1.3-7.7) k/uL Lymphocytes # (1.0-4.8) k/uL Sodium (137-145) mmol/L Potassium (3.5-5.1) mmol/L Chloride (98-107) mmol/L BUN (7-17) mg/dL Creatinine (0.52-1.04) mg/dL Glucose (74-99) mg/dL POC Glucose (mg/dL) 217 H 142 H (75-99) mg/dL Hemoglobin A1c 6.6 H (4.0-6.0) % Phosphorus (2.5-4.5) mg/dL Magnesium (1.6-2.3) mg/dL 11/13/17 11/13/17 11/13/17 Range/Units 16:18 18:24 19:57 WBC (3.8-10.6) k/uL RBC (3.80-5.40) m/uL Hgb (11.4-16.0) gm/dL Hct (34.0-46.0) % MCHC (31.0-37.0) g/dL RDW (11.5-15.5) % Neutrophils # (1.3-7.7) k/uL Lymphocytes # (1.0-4.8) k/uL Sodium (137-145) mmol/L Potassium (3.5-5.1) mmol/L Chloride (98-107) mmol/L BUN (7-17) mg/dL Creatinine (0.52-1.04) mg/dL Glucose (74-99) mg/dL POC Glucose (mg/dL) 162 H 186 H 196 H (75-99) mg/dL Hemoglobin A1c (4.0-6.0) % Phosphorus (2.5-4.5) mg/dL Magnesium (1.6-2.3) mg/dL 11/13/17 11/14/17 11/14/17 Range/Units 22:00 00:11 02:18 WBC (3.8-10.6) k/uL RBC (3.80-5.40) m/uL Hgb (11.4-16.0) gm/dL Hct (34.0-46.0) % MCHC (31.0-37.0) g/dL RDW (11.5-15.5) % Neutrophils # (1.3-7.7) k/uL Lymphocytes # (1.0-4.8) k/uL Sodium (137-145) mmol/L Potassium (3.5-5.1) mmol/L Chloride (98-107) mmol/L BUN (7-17) mg/dL Creatinine (0.52-1.04) mg/dL Glucose (74-99) mg/dL POC Glucose (mg/dL) 209 H 241 H 202 H (75-99) mg/dL Hemoglobin A1c (4.0-6.0) % Phosphorus (2.5-4.5) mg/dL Magnesium (1.6-2.3) mg/dL 11/14/17 11/14/17 11/14/17 Range/Units 03:51 05:27 05:27 WBC 11.2 H (3.8-10.6) k/uL RBC 3.02 L (3.80-5.40) m/uL Hgb 8.8 L (11.4-16.0) gm/dL Hct 29.3 L (34.0-46.0) % MCHC 30.2 L (31.0-37.0) g/dL RDW 17.4 H (11.5-15.5) % Neutrophils # 10.0 H (1.3-7.7) k/uL Lymphocytes # 0.6 L (1.0-4.8) k/uL Sodium 133 L (137-145) mmol/L Potassium 5.2 H (3.5-5.1) mmol/L Chloride 96 L (98-107) mmol/L BUN 59 H (7-17) mg/dL Creatinine 5.10 H* (0.52-1.04) mg/dL Glucose 148 H (74-99) mg/dL POC Glucose (mg/dL) 166 H (75-99) mg/dL Hemoglobin A1c (4.0-6.0) % Phosphorus 5.9 H (2.5-4.5) mg/dL Magnesium 2.5 H (1.6-2.3) mg/dL 11/14/17 11/14/17 11/14/17 Range/Units 06:02 07:29 09:28 WBC (3.8-10.6) k/uL RBC (3.80-5.40) m/uL Hgb (11.4-16.0) gm/dL Hct (34.0-46.0) % MCHC (31.0-37.0) g/dL RDW (11.5-15.5) % Neutrophils # (1.3-7.7) k/uL Lymphocytes # (1.0-4.8) k/uL Sodium (137-145) mmol/L Potassium (3.5-5.1) mmol/L Chloride (98-107) mmol/L BUN (7-17) mg/dL Creatinine (0.52-1.04) mg/dL Glucose (74-99) mg/dL POC Glucose (mg/dL) 181 H 338 H 238 H (75-99) mg/dL Hemoglobin A1c (4.0-6.0) % Phosphorus (2.5-4.5) mg/dL Magnesium (1.6-2.3) mg/dL Microbiology - Last 24 Hours (Table) 11/09/17 10:22 Blood Culture - Preliminary Blood No Growth after 96 hours Assessment and Plan Assessment: Assessment 1 acute sepsis the exact source is not clear. The patient presents with fever, leukocytosis, lactic acidosis, tachycardia, and hypotension. In addition she has developed some degree of hyperglycemia related to underlying sepsis. Chest x-ray is not showing any acute source of an infection. Blood and urine cultures reveal no growth to date and the patient was started on empiric antibiotics. 2 hypotension secondary to above, the patient was given a total of 1.5 L through dialysis. The patient received more fluids if in the ICU patient received more than 3 L of IV fluids and she is currently on no pressors. She is hemodynamically stable with a systolic blood pressure in the mid 90s. She was running a lower blood pressure even on outpatient basis and this has been noted recently by the family. 3 End stage renal disease on hemodialysis with AV fistula in left upper extremity. The patient to undergo hemodialysis today. 4 acute hyperkalemia with a potassium level of 6.8 currently on hemodialysis, and subsequent potassium level is down to 5.2 5 diabetes mellitus with sepsis induced hyperglycemia 6 history of hypertension with diastolic heart failure and hypertensive heart disease 7 paroxysmal atrial fibrillation 8 coronary artery disease with multivessel coronary artery disease involvement and the patient has declined bypass surgery in the past and she has had on and off episodes of acute non-ST segment elevation myocardial infarction is. 9 morbid obesity with a BMI of 37.3 10 diabetic peripheral neuropathy and nephropathy 11 hypertension 12 healed pressure sores and sacral decub ulcers 13 acid reflux 14 hyperlipidemia 15 chronic anemia 16 moderate aortic stenosis based on recent echocardiogram with a preserved LV function with an ejection fraction of 55-60% 17 nonspecific colitis involving the cecum and ascending colon. 18 obstructive sleep apnea severe maintenance. At a pressure of 12 cm of water. Plan The patient was seen and evaluated by Dr. Fishman. She is receiving hemodialysis in today. We'll continue with BiPAP throughout the evening and during the day as needed. Oral prednisone. We will continue to follow and make further recommendations based on her clinical status. I, the cosigning physician, performed a history & physical examination of the patient. Lungs sounds have crackles in the bilateral posterior bases. Maintaining good O2 saturations in the 90s on 2 L/m per nasal cannula I discussed the assessment and plan of care with my nurse practitioner, Aruna Aquion. I attest to the above note as dictated by her.
[2017-11-14 11:57] LABS: Glucose,Whole Blood 137 mg/dL (75-99)
[2017-11-14 13:57] LABS: Glucose,Whole Blood 141 mg/dL (75-99)
[2017-11-14] MEDS: DOCUSATE 100 MG CAP PO SCH ×2 (14:01→20:53)
[2017-11-14] MEDS: APIXABAN 2.5 MG TABLET PO SCH ×2 (14:01→20:53)
[2017-11-14] MEDS: DULoxetine HCL 60 MG CAPSULE.DR PO SCH (14:02)
[2017-11-14] MEDS: CHOLECALCIFEROL 1,000 UNIT TAB PO SCH (14:02)
[2017-11-14] MEDS: AMIODARONE 100 MG TAB PO SCH (14:02)
[2017-11-14] MEDS: EZETIMIBE 10 MG TAB PO SCH (14:02)
[2017-11-14] MEDS: DILTIAZEM ORAL 60 MG TAB PO SCH ×3 (14:02→20:54)
[2017-11-14] MEDS: MAGNESIUM OXIDE 400 MG TAB PO SCH (14:02)
[2017-11-14] MEDS: ISOSORBIDE MONONITRATE ER 30 MG TAB.ER.24H PO SCH (14:02)
[2017-11-14] MEDS: METOPROLOL SUCCINATE (ER) 50 MG TAB.ER.24H PO SCH (14:02)
[2017-11-14] MEDS: CLOPIDOGREL 75 MG TAB PO SCH (14:03)
[2017-11-14] MEDS: LORATADINE 10 MG TAB PO SCH (14:03)
[2017-11-14] MEDS: FERROUS SULFATE 325 MG TAB PO SCH (14:03)
[2017-11-14] MEDS: GABAPENTIN 300 MG CAP PO SCH ×2 (14:03→20:53)
[2017-11-14 14:42] VITALS: BMI 35.2
[2017-11-14] MEDS: SODIUM FERRIC GLUCONAT-SUCROSE 125 MG in SODIUM CHLORIDE 0.9% 100 ML IVPB SCH (14:52)
[2017-11-14 17:29] LABS: Glucose,Whole Blood 311 mg/dL (75-99)
[2017-11-14 17:34] LABS: Hepatitis B Surface AB- Quant 3.5 mIU/mL
[2017-11-14 20:49] LABS: Glucose,Whole Blood 311 mg/dL (75-99)
--- NOTE | 2017-11-14 21:16 | P.PN ---
Subjective Progress Note Date: 11/14/17 This is a 72-year-old female known to ID service as she was treated for a MRSA soft tissue skin infection approximately 6 years ago. She most recently was seen in November 2016 at which time she was treated for acute respiratory failure secondary to acute on chronic diastolic heart failure COPD exacerbation and moderate aortic stenosis. Patient is known to have end-stage renal disease on dialysis Monday. She states she received her Monday therapy and also was given additional treatment on Monday. Patient states that she was sleeping when she woke up in the morning her daughter lives with her woke her up and found that she had vomited into her CPAP mask and patient was also very lethargic weak and fatigued. She apparently had some fevers at home she was complaining of some mild shortness of breath. Also her blood sugars have been running high at home. She denies any cough or sputum production. She denies any diarrhea or constipation. She denies any blood in her stools. Her last bowel movement was yesterday. She states when she was up her daughter tried to help her to the bathroom but because she was so weak she had to wait until her son was there and able to lift her onto the toilet. Regarding abdominal pain, she states she did not realize she had any until EMS moved her onto a gurney and she noted right lower quadrant pain. Her blood sugars have been running high at home. Patient was then brought into [facility] emergency center for evaluation where she was found to have temperature 100.1, white count of 22.7. Potassium was 6.8 and she is status post Kayexalate, BUN 50, creatinine 6.25. Initial lactic acid was 4.9 and repeat is down to 1.7 as of this morning. Her urinalysis was cloudy, leukoesterase moderate and squamous cells 5. Patient states she only voids about 1 time every 2-3 days. She denies having any known pain with urination. She currently has a Levy catheter in place. Chest x-ray showed minimal basilar atelectasis suspected. Dr. Botello was contacted and patient was given hemodialysis in the emergency center and did have hypotension requiring IV fluid bolus of 1500 cc. Patient was admitted into the intensive care unit. She has not required vasopressors. No plan for dialysis today. She does have a recent history of myocardial infarction stent placement in September. Patient was noted to have a drop in her hemoglobin initially 11.1 and now 8.4 for which GI has been consult it. There is no plan for any intervention at this time. Her CAT scan of the abdomen and pelvis with contrast showed moderate marked colitis in the cecum and the ascending colon likely inflammatory. Patient has been on Zosyn and vancomycin. Note the patient is also on amiodarone. Potassium is improved this morning of 4.9. Patient has been started on a clear liquid diet this morning for breakfast and is tolerating this. She denies any further episodes of nausea or vomiting. She states she has a little appetite. Patient has chronic back pain status post multiple back surgeries for which she is now essentially wheelchair bound due to frequent falls. She is able to transfer herself. Patient has not had any recent falls. 11/13/2017 reveals feeling somewhat better. She is out of ICU on the selective care unit. She is overall feeling somewhat better. Unable to eat her full dinner. This likely some chronic pain issues. No other new cultures are available. 11/14/2017 patient is had some further improvement. She's been able to eat throughout the day. Feels a little weak this morning but this is improved today. She is being readied for discharge tomorrow. Under the care of her daughter as well as PT and OT. Her hemoglobin is being monitored and may require transfusion the morning before her discharge. Objective - Vital Signs Vital signs: Vital Signs Temp 97.8 F 11/14/17 16:05 Pulse 87 11/14/17 16:05 Resp 16 11/14/17 16:05 BP 156/66 11/14/17 16:05 Pulse Ox 96 11/14/17 16:05 Intake & Output 11/14/17 11/14/17 11/15/17 06:59 18:59 06:59 Intake Total 241.169 778.164 Balance 241.169 778.164 Weight 87.5 kg 87.5 kg Intake: Intake, IV Titration 121.169 418.164 Amount Insulin Regular 100 unit 71.169 18.164 In Sodium Chloride 0.9% 100 ml @ Titrate IV .Q0M [facility] Rx#:[id number] Piperacillin-Tazobactam 3 50 50 .375 gm In Dextrose/Water 1 50ml.bag @ 12.5 mls/hr IVPB Q12HR [facility] Rx#: [id number] Sodium Ferric Gluconat- 100 Sucrose 125 mg In Sodium Chloride 0.9% 100 ml @ 100 mls/hr IVPB DAILY [facility] Rx#:[id number] Vancomycin 1,500 mg In 250 Sodium Chloride 0.9% 250 ml @ 125 mls/hr IVPB ONCE ONE Rx#:[id number] Oral 120 360 Other: Voiding Method Bedpan Bedpan # Voids 1 - Exam Gen: This is a 72-year-old female. She is seen in the ICU. She is in bed and appears to be comfortable. Patient appears to be in no acute distress. HEENT: Head is atraumatic, normocephalic. Pupils equal, round. Sclerae is anicteric. NECK: Supple. No JVD. No lymphadenopathy. No thyromegaly. LUNGS: Clear to auscultation. No wheezes or rhonchi. No intercostal retractions. HEART: Regular rate and rhythm. No murmur. ABDOMEN: Soft. Bowel sounds are present. No masses. Right lower quadrant tenderness. EXTREMITIES: No pedal edema. No calf tenderness. NEUROLOGICAL: Patient is awake, alert and oriented x3. Generalized weakness noted to the lower extremities bilaterally. Hand line cook the upper extremities are strong. - Labs CBC & Chem 7: 11/14/17 05:27 11/14/17 05:27 Labs: Abnormal Lab Results - Last 24 Hours (Table) 11/13/17 11/14/17 11/14/17 Range/Units 22:00 00:11 02:18 WBC (3.8-10.6) k/uL RBC (3.80-5.40) m/uL Hgb (11.4-16.0) gm/dL Hct (34.0-46.0) % MCHC (31.0-37.0) g/dL RDW (11.5-15.5) % Neutrophils # (1.3-7.7) k/uL Lymphocytes # (1.0-4.8) k/uL Sodium (137-145) mmol/L Potassium (3.5-5.1) mmol/L Chloride (98-107) mmol/L BUN (7-17) mg/dL Creatinine (0.52-1.04) mg/dL Glucose (74-99) mg/dL POC Glucose (mg/dL) 209 H 241 H 202 H (75-99) mg/dL Phosphorus (2.5-4.5) mg/dL Magnesium (1.6-2.3) mg/dL 11/14/17 11/14/17 11/14/17 Range/Units 03:51 05:27 05:27 WBC 11.2 H (3.8-10.6) k/uL RBC 3.02 L (3.80-5.40) m/uL Hgb 8.8 L (11.4-16.0) gm/dL Hct 29.3 L (34.0-46.0) % MCHC 30.2 L (31.0-37.0) g/dL RDW 17.4 H (11.5-15.5) % Neutrophils # 10.0 H (1.3-7.7) k/uL Lymphocytes # 0.6 L (1.0-4.8) k/uL Sodium 133 L (137-145) mmol/L Potassium 5.2 H (3.5-5.1) mmol/L Chloride 96 L (98-107) mmol/L BUN 59 H (7-17) mg/dL Creatinine 5.10 H* (0.52-1.04) mg/dL Glucose 148 H (74-99) mg/dL POC Glucose (mg/dL) 166 H (75-99) mg/dL Phosphorus 5.9 H (2.5-4.5) mg/dL Magnesium 2.5 H (1.6-2.3) mg/dL 11/14/17 11/14/17 11/14/17 Range/Units 06:02 07:29 09:28 WBC (3.8-10.6) k/uL RBC (3.80-5.40) m/uL Hgb (11.4-16.0) gm/dL Hct (34.0-46.0) % MCHC (31.0-37.0) g/dL RDW (11.5-15.5) % Neutrophils # (1.3-7.7) k/uL Lymphocytes # (1.0-4.8) k/uL Sodium (137-145) mmol/L Potassium (3.5-5.1) mmol/L Chloride (98-107) mmol/L BUN (7-17) mg/dL Creatinine (0.52-1.04) mg/dL Glucose (74-99) mg/dL POC Glucose (mg/dL) 181 H 338 H 238 H (75-99) mg/dL Phosphorus (2.5-4.5) mg/dL Magnesium (1.6-2.3) mg/dL 11/14/17 11/14/17 11/14/17 Range/Units 11:33 13:55 17:27 WBC (3.8-10.6) k/uL RBC (3.80-5.40) m/uL Hgb (11.4-16.0) gm/dL Hct (34.0-46.0) % MCHC (31.0-37.0) g/dL RDW (11.5-15.5) % Neutrophils # (1.3-7.7) k/uL Lymphocytes # (1.0-4.8) k/uL Sodium (137-145) mmol/L Potassium (3.5-5.1) mmol/L Chloride (98-107) mmol/L BUN (7-17) mg/dL Creatinine (0.52-1.04) mg/dL Glucose (74-99) mg/dL POC Glucose (mg/dL) 137 H 141 H 311 H (75-99) mg/dL Phosphorus (2.5-4.5) mg/dL Magnesium (1.6-2.3) mg/dL 11/14/17 Range/Units 20:48 WBC (3.8-10.6) k/uL RBC (3.80-5.40) m/uL Hgb (11.4-16.0) gm/dL Hct (34.0-46.0) % MCHC (31.0-37.0) g/dL RDW (11.5-15.5) % Neutrophils # (1.3-7.7) k/uL Lymphocytes # (1.0-4.8) k/uL Sodium (137-145) mmol/L Potassium (3.5-5.1) mmol/L Chloride (98-107) mmol/L BUN (7-17) mg/dL Creatinine (0.52-1.04) mg/dL Glucose (74-99) mg/dL POC Glucose (mg/dL) 311 H (75-99) mg/dL Phosphorus (2.5-4.5) mg/dL Magnesium (1.6-2.3) mg/dL Microbiology - Last 24 Hours (Table) 11/09/17 10:22 Blood Culture - Preliminary Blood No Growth after 120 hours Laboratory Results WBC 11.2 k/uL (3.8-10.6) H 11/14/17 05:27 RBC 3.02 m/uL (3.80-5.40) L 11/14/17 05:27 Hgb 8.8 gm/dL (11.4-16.0) L 11/14/17 05:27 Hct 29.3 % (34.0-46.0) L 11/14/17 05:27 MCV 96.9 fL (80.0-100.0) 11/14/17 05:27 MCH 29.3 pg (25.0-35.0) 11/14/17 05:27 MCHC 30.2 g/dL (31.0-37.0) L 11/14/17 05:27 RDW 17.4 % (11.5-15.5) H 11/14/17 05:27 Plt Count 242 k/uL (150-450) 11/14/17 05:27 Neutrophils % 90 % 11/14/17 05:27 Lymphocytes % 5 % 11/14/17 05:27 Monocytes % 4 % 11/14/17 05:27 Eosinophils % 0 % 11/14/17 05:27 Basophils % 0 % 11/14/17 05:27 Neutrophils # 10.0 k/uL (1.3-7.7) H 11/14/17 05:27 Lymphocytes # 0.6 k/uL (1.0-4.8) L 11/14/17 05:27 Monocytes # 0.4 k/uL (0-1.0) 11/14/17 05:27 Eosinophils # 0.0 k/uL (0-0.7) 11/14/17 05:27 Basophils # 0.0 k/uL (0-0.2) 11/14/17 05:27 Hypochromasia Moderate 11/14/17 05:27 Anisocytosis Slight 11/14/17 05:27 Macrocytosis Slight 11/14/17 05:27 PT 10.8 sec (9.0-12.0) 11/10/17 05:07 INR 1.1 (<1.2) 11/10/17 05:07 APTT 27.5 sec (22.0-30.0) 11/10/17 05:07 Sample Site rrad 11/11/17 08:43 ABG pH 7.35 (7.35-7.45) 11/11/17 08:43 ABG pCO2 52 mmHg (35-45) H 11/11/17 08:43 ABG pO2 61 mmHg (83-108) L 11/11/17 08:43 ABG HCO3 29 mmol/L (21-25) H 11/11/17 08:43 ABG Total CO2 30 mmol/L (19-24) H 11/11/17 08:43 ABG O2 Saturation 88.9 % (94-97) L 11/11/17 08:43 ABG Base Excess 3.3 mmol/L 11/11/17 08:43 Braydon Test Yes 11/11/17 08:43 FiO2 35 % 11/11/17 08:43 Sodium 133 mmol/L (137-145) L 11/14/17 05:27 Potassium 5.2 mmol/L (3.5-5.1) H 11/14/17 05:27 Chloride 96 mmol/L (98-107) L 11/14/17 05:27 Carbon Dioxide 23 mmol/L (22-30) 11/14/17 05:27 Anion Gap 14 mmol/L 11/14/17 05:27 BUN 59 mg/dL (7-17) H 11/14/17 05:27 Creatinine 5.10 mg/dL (0.52-1.04) H* 11/14/17 05:27 Est GFR (CKD-EPI)AfAm 9 (>60 ml/min/1.73 sqM) 11/14/17 05:27 Est GFR (CKD-EPI)NonAf 8 (>60 ml/min/1.73 sqM) 11/14/17 05:27 Glucose 148 mg/dL (74-99) H 11/14/17 05:27 POC Glucose (mg/dL) 311 mg/dL (75-99) H 11/14/17 20:48 POC Glu Clinical Systems Educator ID Lauro Fernandez 11/14/17 20:[address] Glu mg/dL 143 11/12/17 05:50 Hemoglobin A1c 6.6 % (4.0-6.0) H 11/12/17 05:50 Lactic Ac Sepsis Rflx Y 11/09/17 21:15 Plasma Lactic Acid Satinder 1.7 mmol/L (0.7-2.0) 11/10/17 05:07 Calcium 8.9 mg/dL (8.4-10.2) 11/14/17 05:27 Phosphorus 5.9 mg/dL (2.5-4.5) H 11/14/17 05:27 Magnesium 2.5 mg/dL (1.6-2.3) H 11/14/17 05:27 Iron 28 ug/dL (50-170) L 11/11/17 05:57 TIBC 251 ug/dL (228-460) 11/11/17 05:57 Iron Saturation 11.16 (12.00-45.00) L 11/11/17 05:57 Ferritin 542.4 ng/mL (10.0-291.0) H 11/11/17 05:57 Total Bilirubin 0.5 mg/dL (0.2-1.3) 11/10/17 05:07 AST 24 U/L (14-36) 11/10/17 05:07 ALT 33 U/L (9-52) 11/10/17 05:07 Alkaline Phosphatase 106 U/L (38-126) 11/10/17 05:07 Total Creatine Kinase 35 U/L (30-135) 11/09/17 10:22 CK-MB (CK-2) <0.2 ng/mL (0.0-2.4) 11/09/17 10:22 CK-MB (CK-2) Rel Index 11/09/17 10:22 Troponin I <0.012 ng/mL (0.000-0.034) 11/09/17 10:22 Total Protein 5.9 g/dL (6.3-8.2) L 11/10/17 05:07 Albumin 3.0 g/dL (3.5-5.0) L 11/10/17 05:07 Urine Color Yellow 11/09/17 11:17 Urine Appearance Cloudy (Clear) H 11/09/17 11:17 Urine pH 5.0 (5.0-8.0) 11/09/17 11:17 Ur Specific [place] 1.020 (1.001-1.035) 11/09/17 11:17 Urine Protein 1+ (Negative) H 11/09/17 11:17 Urine Glucose (UA) Negative (Negative) 11/09/17 11:17 Urine Ketones Trace (Negative) H 11/09/17 11:17 Urine Blood Trace (Negative) H 11/09/17 11:17 Urine Nitrite Negative (Negative) 11/09/17 11:17 Urine Bilirubin 1+ (Negative) H 11/09/17 11:17 Urine Urobilinogen 3.0 mg/dL (<2.0) 11/09/17 11:17 Ur Leukocyte Esterase Moderate (Negative) H 11/09/17 11:17 Urine RBC 1 /hpf (0-5) 11/09/17 11:17 Urine WBC 5 /hpf (0-5) 11/09/17 11:17 Ur Squamous Epith Cells 5 /hpf (0-4) H 11/09/17 11:17 Hyaline Casts 20 /lpf (0-2) H 11/09/17 11:17 Urine Mucus Rare /hpf (None) H 11/09/17 11:17 Random Vancomycin 18.2 ug/mL 11/14/17 05:27 Microbiology 11/09/17 10:22 Blood Blood Culture - Preliminary No Growth after 120 hours 11/09/17 11:17 Urine,Catheterized Urine Culture - Final Assessment and Plan (1) Ischemic colitis Narrative/Plan: Patient was originally evaluated in the intensive care unit awaiting her transfer out of the ICU. At presentation she is having difficulties with increasing shortness of breath and evidence of sepsis. She's been initiated antibiotic therapy with Zosyn and vancomycin. There is concerns to a colitis occurring by the computed tomography scan findings and has been evaluated by gastroenterology with concern to ischemic colitis. Without profuse diarrhea about thought not to be infectious at this time. She has had difficulties with urinary tract infections with E. coli that is quinolone resistant. Earlier this year she did have MRSA pneumonia. Continue current antibiotic therapy while cultures are in process. She is more stable will move out of the ICU today. Hopefully we'll be able to have further dialysis sessions to improve her volume status. She did have a temperature 101.8 and is noted cultures are in process. Ischemic colitis could result in fever has continued underlying urinary infection. Supportive care is being given and gastroenterology is following. She tolerated some food today without significant pain. Currently wondering if she will go to rehab at discharge. 11/13/2017 72-year-old patient of further improvement. She will to eat her dinner without great difficulties. No nausea or emesis. Does have some baseline shortness of breath that is without acute change. At this time no other new positive cultures and the vancomycin is discontinued, the Zosyn was continued for the colitis which has allowed significant improvement. Her diarrhea has definitely improved. The progress is related to her daughter who is present. 11/04/2017 patient is improved today. She's having no further fevers. Has been evaluated by gastroenterology with no further plans. She's doing well with her dialysis. No new positive cultures are noted. White count is almost normal at 11.2 and no other new acute changes are noted. She's eating well and is not having profound diarrhea. Likely she will ready for discharge home tomorrow and complete the course of treatment of her colitis with metronidazole 500 mg every 8 hours for 7 days at discharge. Current Visit: Yes Status: Acute Code(s): K55.9 - VASCULAR DISORDER OF INTESTINE, UNSPECIFIED SNOMED Code(s): 87597586 (2) UTI (urinary tract infection) Current Visit: No Status: Acute Code(s): N39.0 - URINARY TRACT INFECTION, SITE NOT SPECIFIED SNOMED Code(s): 27187103 (3) Leukocytosis Current Visit: No Status: Acute Code(s): D72.829 - ELEVATED WHITE BLOOD CELL COUNT, UNSPECIFIED SNOMED Code(s): 141611219
[2017-11-15 04:32] VITALS: RESP 16
[2017-11-15 05:58] LABS: Glucose,Whole Blood 252 mg/dL (75-99)
[2017-11-15] MEDS: SEVELAMER 800 MG TAB PO SCH ×3 (07:07→17:12)
[2017-11-15] MEDS: PANTOPRAZOLE 40 MG TABLET PO SCH (07:07)
[2017-11-15] MEDS: INSULIN ASPART 100 UNIT/ML 1 ML 10 ML VIAL SQ SCH ×5 (07:07→17:13)
--- NOTE | 2017-11-15 08:46 | P.PN ---
Subjective Patient is seen in follow-up for end-stage renal disease. She is maintained on hemodialysis on a Monday schedule via left upper extremity AV fistula. She denies any diarrhea. She is tolerating oral intake. Still admits to dyspnea intermittently. Insulin drip has been discontinued. She had total 5 L ultrafiltration past 2 days. Vital signs are stable. General: The patient appeared well nourished and normally developed. HEENT: Head exam is unremarkable. Neck is without jugular venous distension. LUNGS: Lungs are clear to auscultation and percussion. Breath sounds decreased. HEART: Rate and Rhythm are regular. First and second heart sounds normal. No murmurs, rubs or gallops. ABDOMEN: Abdominal exam reveals normal bowel sounds. Non-tender and non- distended. No evidence of peritonitis. EXTREMITITES: No clubbing, cyanosis, or edema. Objective - Vital Signs Vital signs: Vital Signs Temp 97.6 F 11/15/17 04:00 Pulse 69 11/15/17 04:00 Resp 16 11/15/17 04:00 BP 165/70 11/15/17 04:00 Pulse Ox 98 11/15/17 04:00 Intake & Output 11/14/17 11/15/17 11/15/17 18:59 06:59 18:59 Intake Total 778.164 120 240 Balance 778.164 120 240 Weight 87.5 kg 96.5 kg Intake: Intake, IV Titration 418.164 Amount Insulin Regular 100 unit 18.164 In Sodium Chloride 0.9% 100 ml @ Titrate IV .Q0M [facility] Rx#:[id number] Piperacillin-Tazobactam 3 50 .375 gm In Dextrose/Water 1 50ml.bag @ 12.5 mls/hr IVPB Q12HR [facility] Rx#: [id number] Sodium Ferric Gluconat- 100 Sucrose 125 mg In Sodium Chloride 0.9% 100 ml @ 100 mls/hr IVPB DAILY [facility] Rx#:[id number] Vancomycin 1,500 mg In 250 Sodium Chloride 0.9% 250 ml @ 125 mls/hr IVPB ONCE ONE Rx#:[id number] Oral 360 120 240 Other: Voiding Method Bedpan Bedpan # Voids 1 - Labs CBC & Chem 7: 11/14/17 05:27 11/14/17 05:27 Labs: Abnormal Lab Results - Last 24 Hours (Table) 11/14/17 11/14/17 11/14/17 Range/Units 09:28 11:33 13:55 POC Glucose (mg/dL) 238 H 137 H 141 H (75-99) mg/dL 11/14/17 11/14/17 11/15/17 Range/Units 17:27 20:48 05:54 POC Glucose (mg/dL) 311 H 311 H 252 H (75-99) mg/dL Microbiology - Last 24 Hours (Table) 11/09/17 10:22 Blood Culture - Preliminary Blood No Growth after 120 hours Assessment and Plan Plan: Assessment: 1. End-stage renal disease maintained on hemodialysis on a Monday schedule via left upper extremity AV fistula. 2. Hypotension status post IV fluids. Resolved. 3. Colitis in the cecum and ascending colon noted on CAT scan maintained on antibiotics. Possibly ischemic colitis. Not having diarrhea. GI following as well. 4. Anemia of chronic kidney disease. Iron deficiency noted. No active bleeding noted. 5. 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 Phosphorus level 5.5. 6. Diastolic CHF. 7. Hyperkalemia secondary to chronic kidney disease. Hypoglycemia also contributing factor. 8. Hypertonic hyponatremia secondary to hyperglycemia. Expect improvement with improved blood sugar control. Plan: Hemodialysis tomorrow with goal 4-5 L ultrafiltration. Ferrlecit 125 mg IV daily for 3 days. Third dose today. Maintain Aranesp. Low potassium diet. Steroids being weaned off.
[2017-11-15] MEDS ORDERED: predniSONE 20 MG TAB PO SCH (09:00)
[2017-11-15 09:17] LABS: Anisocytosis Slight; HCT 28.5 % (34.0-46.0); HGB 8.7 gm/dL (11.4-16.0); Hypochromasia Marked; MCH 30.2 pg (25.0-35.0); MCHC 30.6 g/dL (31.0-37.0); MCV 98.5 fL (80.0-100.0); Macrocytosis Slight; Mean Platelet Volume 8.4; Platelet Count 250 k/uL (150-450); RDW 16.9 % (11.5-15.5); WBC 14.4 k/uL (3.8-10.6)
[2017-11-15] MEDS: MAGNESIUM OXIDE 400 MG TAB PO SCH (09:17)
[2017-11-15] MEDS: AMIODARONE 100 MG TAB PO SCH (09:17)
[2017-11-15] MEDS: APIXABAN 2.5 MG TABLET PO SCH (09:17)
[2017-11-15] MEDS: GABAPENTIN 300 MG CAP PO SCH (09:18)
[2017-11-15] MEDS: CHOLECALCIFEROL 1,000 UNIT TAB PO SCH (09:18)
[2017-11-15] MEDS: DOCUSATE 100 MG CAP PO SCH (09:18)
[2017-11-15] MEDS: EZETIMIBE 10 MG TAB PO SCH (09:18)
[2017-11-15] MEDS: CLOPIDOGREL 75 MG TAB PO SCH (09:19)
[2017-11-15] MEDS: FERROUS SULFATE 325 MG TAB PO SCH (09:19)
[2017-11-15] MEDS: ISOSORBIDE MONONITRATE ER 30 MG TAB.ER.24H PO SCH (09:19)
[2017-11-15] MEDS: DILTIAZEM ORAL 60 MG TAB PO SCH ×2 (09:19→17:12)
[2017-11-15] MEDS: METOPROLOL SUCCINATE (ER) 50 MG TAB.ER.24H PO SCH (09:19)
[2017-11-15] MEDS: DULoxetine HCL 60 MG CAPSULE.DR PO SCH (09:19)
[2017-11-15] MEDS: PIPERACILLIN-TAZOBACTAM 3.375 GM in DEXTROSE/WATER 1 50ML.BAG IVPB SCH (09:20)
[2017-11-15] MEDS: LORATADINE 10 MG TAB PO SCH (09:20)
[2017-11-15] MEDS: INSULIN DETEMIR 100 UNIT/ML 10 ML VIAL SQ SCH (09:20)
[2017-11-15 09:43] LABS: Calcium 8.6 mg/dL (8.4-10.2); Magnesium 2.2 mg/dL (1.6-2.3); Phosphorus 6.2 mg/dL (2.5-4.5); Potassium 4.6 mmol/L (3.5-5.1)
[2017-11-15] MEDS: SODIUM FERRIC GLUCONAT-SUCROSE 125 MG in SODIUM CHLORIDE 0.9% 100 ML IVPB SCH (11:03)
[2017-11-15 11:32] LABS: Glucose,Whole Blood 282 mg/dL (75-99)
[2017-11-15 12:31] VITALS: BP 174/75; TEMP 97
[2017-11-15 12:48] VITALS: PULSE 69
--- NOTE | 2017-11-15 15:21 | P.PN ---
Subjective Progress Note Date: 11/15/17 As a pleasant 72-year-old female patient who sees Dr. Combs in the office. She hasn't passed medical history significant for coronary artery disease stenting of the LAD in July 2017 and stenting of the left circumflex in August 2017, end-stage renal disease on hemodialysis, hypertension, paroxysmal atrial fibrillation and dyslipidemia as well as diabetes. She was admitted to the hospital for overall not feeling well. Family noticed progressive weakness and she was feeling very tired and fatigued and unable to get up from a sitting position. She also had high blood sugars at home. She did not have any shortness of breath, chest discomfort. Patient was febrile at home. Because of suspected sepsis the patient was admitted to intensive care unit and cultures have been done. CT scan of the abdomen and pelvis showed possible ischemic colitis. We were asked see the patient in consult because of a hemoglobin drop and patient is on anticoagulation for PAF. No obvious upper or lower GI bleeding. This was resumed and her hemoglobin remained stable A.7 today. Her breathing has improved after 4 days of dialysis treatments. Objective - Vital Signs Vital signs: Vital Signs Temp 97.6 F 11/15/17 04:00 Pulse 69 11/15/17 04:00 Resp 16 11/15/17 04:00 BP 165/70 11/15/17 04:00 Pulse Ox 98 11/15/17 04:00 Intake & Output 11/14/17 11/15/17 11/15/17 18:59 06:59 18:59 Intake Total 778.164 120 240 Balance 778.164 120 240 Weight 87.5 kg 96.5 kg Intake: Intake, IV Titration 418.164 Amount Insulin Regular 100 unit 18.164 In Sodium Chloride 0.9% 100 ml @ Titrate IV .Q0M [facility] Rx#:[id number] Piperacillin-Tazobactam 3 50 .375 gm In Dextrose/Water 1 50ml.bag @ 12.5 mls/hr IVPB Q12HR [facility] Rx#: [id number] Sodium Ferric Gluconat- 100 Sucrose 125 mg In Sodium Chloride 0.9% 100 ml @ 100 mls/hr IVPB DAILY [facility] Rx#:[id number] Vancomycin 1,500 mg In 250 Sodium Chloride 0.9% 250 ml @ 125 mls/hr IVPB ONCE ONE Rx#:[id number] Oral 360 120 240 Other: Voiding Method Bedpan Bedpan # Voids 1 0 - Exam PHYSICAL EXAMINATION: HEENT: Head is atraumatic, normocephalic. Pupils equal, round. Neck is supple. There is no elevated jugular venous pressure. HEART EXAMINATION: Heart sounds regular, S1 and S2 normal. No murmur or gallop heard. CHEST EXAMINATION: Lungs reveal diminished air entry bilaterally . No chest wall tenderness is noted on palpation or with deep breathing. ABDOMEN: Soft, obese, nontender. Bowel sounds are heard. No organomegaly noted. EXTREMITIES: 2+ peripheral pulses with no evidence of peripheral edema and no calf tenderness noted. NEUROLOGIC patient is drowsy and oriented x3. . - Labs CBC & Chem 7: 11/15/17 08:44 11/15/17 08:44 Labs: Abnormal Lab Results - Last 24 Hours (Table) 11/14/17 11/14/17 11/14/17 Range/Units 11:33 13:55 17:27 WBC (3.8-10.6) k/uL RBC (3.80-5.40) m/uL Hgb (11.4-16.0) gm/dL Hct (34.0-46.0) % MCHC (31.0-37.0) g/dL RDW (11.5-15.5) % Sodium (137-145) mmol/L Chloride (98-107) mmol/L Carbon Dioxide (22-30) mmol/L BUN (7-17) mg/dL Creatinine (0.52-1.04) mg/dL Glucose (74-99) mg/dL POC Glucose (mg/dL) 137 H 141 H 311 H (75-99) mg/dL Phosphorus (2.5-4.5) mg/dL 11/14/17 11/15/17 11/15/17 Range/Units 20:48 05:54 08:44 WBC (3.8-10.6) k/uL RBC (3.80-5.40) m/uL Hgb (11.4-16.0) gm/dL Hct (34.0-46.0) % MCHC (31.0-37.0) g/dL RDW (11.5-15.5) % Sodium 131 L (137-145) mmol/L Chloride 95 L (98-107) mmol/L Carbon Dioxide 19 L (22-30) mmol/L BUN 57 H (7-17) mg/dL Creatinine 4.10 H (0.52-1.04) mg/dL Glucose 299 H (74-99) mg/dL POC Glucose (mg/dL) 311 H 252 H (75-99) mg/dL Phosphorus 6.2 H (2.5-4.5) mg/dL 11/15/17 11/15/17 Range/Units 08:44 11:28 WBC 14.4 H (3.8-10.6) k/uL RBC 2.90 L (3.80-5.40) m/uL Hgb 8.7 L (11.4-16.0) gm/dL Hct 28.5 L (34.0-46.0) % MCHC 30.6 L (31.0-37.0) g/dL RDW 16.9 H (11.5-15.5) % Sodium (137-145) mmol/L Chloride (98-107) mmol/L Carbon Dioxide (22-30) mmol/L BUN (7-17) mg/dL Creatinine (0.52-1.04) mg/dL Glucose (74-99) mg/dL POC Glucose (mg/dL) 282 H (75-99) mg/dL Phosphorus (2.5-4.5) mg/dL Microbiology - Last 24 Hours (Table) 11/09/17 10:22 Blood Culture - Preliminary Blood No Growth after 120 hours Assessment and Plan Assessment: #1 sepsis of unknown origin, on broad spectrum antibiotics #2 possible ischemic colitis #3 acute blood loss, no signs of obvious GI bleeding, no plans for invasive workup #4 coronary artery disease, status post recent stenting of LAD and left circumflex #5 paroxysmal atrial fibrillation #6 end-stage renal disease, on hemodialysis Plan: From cardiology's perspective, continue Plavix and Eliquis. Patient may be discharged home today. She'll follow-up in the office as an outpatient with Dr. Combs. TRAIN BRAKE OPERATOR note has been reviewed, I agree with a documented findings and plan of care. Patient was seen and examined.
[2017-11-15 16:39] LABS: Glucose,Whole Blood 235 mg/dL (75-99)
--- NOTE | 2017-11-16 14:33 | P.DS ---
Providers Date of admission: 11/09/17 11:48 Expected date of discharge: 11/15/17 Attending physician: Nandini Venegas MD Consults: 11/09/17 11:48 Consult Physician Stat Consulting Provider: Mariam Botello Consult Reason/Comments: Renal failure, sepsis Do you want consulting provider notified?: Yes 11/09/17 13:56 Consult Physician Stat Consulting Provider: Carolina Hanson Consult Reason/Comments: ICU MANAGEMENT Do you want consulting provider notified?: Already Contacted 11/09/17 15:27 Consult Physician Routine Consulting Provider: Neville Locke Consult Reason/Comments: SEPSIS, esrd Do you want consulting provider notified?: Yes 11/10/17 12:24 Consult Physician Routine Consulting Provider: Nikos Macedo Consult Reason/Comments: consult regarding anti-coagulation medication Do you want consulting provider notified?: Already Contacted [facility] Course: 72-year-old female patient of Dr. Villanueva with past medical history of atrial fibrillation, coronary artery disease status post myocardial infarction, history of triple-vessel disease disease and was considered high risk for bypass on conservative treatment, chronic diastolic heart failure, diabetes, hyperlipidemia, hypertension, end-stage renal disease on hemodialysis , peripheral neuropathy presents with sudden onset of fever, weakness associated 1 episode of vomiting on BiPAP yesterday. Vital signs is suggestive of a temp of 100.1 pulse 110 sinus, blood pressure 123/74. Labs were positive for leukocytosis of 22.7, hemoglobin 11.1, potassium 6.8, sodium 135 chloride 95 , BUN 50, creatinine 6.24, glucose 354, lactic acid 4.9 increased AST and a alkaline phosphatase. Urinalysis suggestive of dehydration Sonya in appearance, with moderate leukocyte esterase but only 5 WBCs with 20 hyalin cast. Patient received 1 L of IV fluid and is maintained on 100 mL per hour. She underwent treatment for hyperkalemia including calcium chloride , dextrose and insulin, and 15 mg of albuterol and Kayexalate. patient got vancomycin and Zosyn for broad-spectrum coverage. Will be moved to the ICU for severe sepsis with urgent dialysis performed in the ER. And was just discharged on October 26 with improvement in her WBCs. She was admitted that time for hyperkalemia and fluid overload. 11/10 and patient examined with site appears better than yesterday is more alert. Patient required multiple boluses of IV fluid due to drop in blood pressure. Blood pressures bedside today is 96/56. The patient completed dialysis yesterday, no plan for dialysis today. Continue to complain of abdominal pain x-ray, CT abdomen concerning for infiltrate or change in the ascending colon and cecum concerning for infectious versus inflammatory versus ischemic colitis. Continue antibiotic coverage with vancomycin and Zosyn. Infectious disease recommendation pending. Labs suggest improvement in leukocytosis from 22 to 13. His hemoglobin dropped from 11.1-8.4 lactic acid improved from 6-1.7 with fluid boluses. Some improvement since starting patient continues to be nothing by mouth insulin sliding scale. Would recommend 500 mL of IV bolus before transfer to the [facility] 11/11:Patient had a rough night and stated that she continues to be short of breath patient does not feel any improvement since admission and thinks that she 's slightly worse. 11/12:Patient is feeling much better since starting IV steroids and stated that she is at least 50% improved since yesterday currently on nasal cannula tolerating without difficulties patient stated that she is normally at home without oxygen and likes to be in bed more than in chair 11/13: Patient became hemodynamically stable over the weekend was transferred out of the intensive care unit to [facility]. Patient is followed by multiple consultants. Dr. Manrique is planning for hemodialysis today. She has been started on Ferrlecit for 3 day course starting today. Patient is also maintained on Aranesp and low potassium diet. She is followed by Dr. Locke and it has been maintained on IV antibiotics in the form of Zosyn and vancomycin. He is confused concern for also underlying urinary tract Infection and she was treated earlier this year for MRSA pneumonia. Urine culture has been finalized with no growth and blood cultures showing no growth after [address] Hanson has been following for intensive care management and patient has been on CPAP at her usual settings. Patient has history of obstructive sleep apnea. Dr. Macedo is following and has recommended holding oral anticoagulation for another 24 hours but continue Plavix. Patient is normally on eliquis. Hemoglobin is stable at 8.8, white count 15.2. Patient was started on IV Solu-Medrol over the weekend for colitis. BUN 59 creatinine 5.6 with potassium of 5.7. Capillary blood glucose running between 159 and 188. Patient states that she is feeling much improved. Anticipate discharge home tomorrow. 11/14: Patient has no new complaints. Breathing status is stable. She has been using BiPAP during the night and controlled by Dr. Fishman. Patient's insulin drip will be discontinued and patient will be resumed on Levemir at higher dose of 30 units twice daily, NovoLog scheduled 12 units with meals and scale. Solu- Medrol will be switched over to prednisone 40 mg daily. Eliquis will be resumed. Hemoglobin is stable at 8.8. She does complain of constipation for which Colace will be resumed and milk of magnesia. Plan for discharge tomorrow. 11/15: We have asked for case management to discuss home care again with the patient and family that we would like the patient have home care including physical therapy at home. Dr. Kohli is clarified that Flagyl would be the antibiotic at discharge. Patient's daughter was contacted at work and given up- to-date. She is requesting the patient lose 4 kg of weight and she is concerned. Dr. Manrique has been updated and he will also contact the daughter that this will be addressed over the next few dialysis treatments. Patient will be discharged home today in stable condition. Discharge Diagnoses: 1. Severe sepsis secondary to colitis of the cecum and ascending colon, possible ischemic colitis. 2. Acute GI bleed with anemia of chronic disease. 3. Chronic diastolic heart failure. 4. History of moderate aortic stenosis. 5. End-stage renal disease on hemodialysis Monday and Monday. 6. Hypertension cardiovascular disease. 5. Paroxysmal atrial fibrillation. 6. History of myocardial infarction and coronary artery disease. 7. Diabetes mellitus type 2, insulin requiring uncontrolled with hyperglycemia secondary to steroids. 8. GERD 9. History of hyperlipidemia intolerant of statins 10. Diabetic peripheral neuropathy 11. Recurrent depression. 12. Anemia of chronic kidney disease Discharge plan: Return home. PT and OT in place. Impression and plan of care have been directed as dictated by the signing physician. Jessenia Gonzalez nurse practitioner acting as scribe for signing physician. Patient Condition at Discharge: Good Plan - Discharge Summary Discharge Rx Participant: Yes New Discharge Prescriptions: New metroNIDAZOLE [Flagyl] 500 mg PO TID #21 tab Darbepoetin Aron [Aranesp] 40 mcg SQ Q7D syringe predniSONE 10 mg PO DIRECTED #30 tab Metoprolol Succinate (ER) [Toprol XL] 50 mg PO DAILY #30 tab Continue DULoxetine HCL [Cymbalta] 60 mg PO DAILY Fish Oil/Dha/Epa [Fish Oil 1,200 mg Fish Oil] 1 cap PO MOWEFR Amiodarone HCl [Pacerone] 100 mg PO DAILY Apixaban [Eliquis] 2.5 mg PO BID Docusate [Colace] 100 mg PO BID Ezetimibe [Zetia] 10 mg PO DAILY Isosorbide Mononitrate ER [Imdur] 30 mg PO DAILY Gabapentin [Neurontin] 300 mg PO BID #60 capsule Omeprazole 20 mg PO DAILY Cranberry 4200mg-Vitamin C 1 tab PO BID Cholecalciferol (Vitamin D3) [Vitamin D3] 2,000 unit PO DAILY Furosemide [Lasix] 80 mg PO BID@0900,1600 tab Magnesium Oxide [Mag-Ox] 250 mg PO DAILY Ferrous Sulfate [Iron (65 MG Elemental)] 325 mg PO DAILY Insulin Aspart [NovoLOG (formulary)] See Protocol SQ AC-TID Sevelamer [Renvela] 800 mg PO TID-W/MEALS #90 tab Insulin Aspart [NovoLOG (formulary)] 12 unit SQ AC-BRKFST Clopidogrel [Plavix] 75 mg PO DAILY #30 tab Fexofenadine HCl [Amanda Allergy] 180 mg PO DAILY Insulin Aspart [NovoLOG] 14 unit SQ AC-SUPPER Insulin Aspart [NovoLOG] 14 unit SQ AC-LUNCH Aspirin 81 mg PO DAILY #90 chewable Diltiazem HCl 60 mg PO TID Midodrine HCl [ProAmatine] 5 mg PO DAILY PRN PRN Reason: DIALYSIS Acetaminophen Tab [Tylenol] 325 mg PO Q6H PRN PRN Reason: Pain Clopidogrel [Plavix] 75 mg PO DAILY Changed Insulin Glargine [Lantus] 35 unit SQ BID #0 Discontinued Metoprolol Succinate (ER) [Toprol XL] 100 mg PO DAILY Discharge Medication List DULoxetine HCL [Cymbalta] 60 mg PO DAILY 08/04/14 [History] Fish Oil/Dha/Epa [Fish Oil 1,200 mg Fish Oil] 1 cap PO MOWEFR 08/04/14 [History] Amiodarone HCl [Pacerone] 100 mg PO DAILY 11/22/15 [History] Apixaban [Eliquis] 2.5 mg PO BID 11/22/15 [History] Docusate [Colace] 100 mg PO BID 11/22/15 [History] Ezetimibe [Zetia] 10 mg PO DAILY 11/22/15 [History] Isosorbide Mononitrate ER [Imdur] 30 mg PO DAILY 11/22/15 [History] Gabapentin [Neurontin] 300 mg PO BID #60 capsule 11/27/15 [Rx] Cranberry 4200mg-Vitamin C 1 tab PO BID 12/25/16 [History] Omeprazole 20 mg PO DAILY 12/25/16 [History] Cholecalciferol (Vitamin D3) [Vitamin D3] 2,000 unit PO DAILY 12/31/16 [History] Furosemide [Lasix] 80 mg PO BID@0900,1600 tab 01/13/17 [Rx] Ferrous Sulfate [Iron (65 MG Elemental)] 325 mg PO DAILY 05/05/17 [History] Insulin Aspart [NovoLOG (formulary)] See Protocol SQ AC-TID 05/05/17 [History] Magnesium Oxide [Mag-Ox] 250 mg PO DAILY 05/05/17 [History] Sevelamer [Renvela] 800 mg PO TID-W/MEALS #90 tab 05/15/17 [Rx] Insulin Aspart [NovoLOG (formulary)] 12 unit SQ AC-BRKFST 08/16/17 [History] Clopidogrel [Plavix] 75 mg PO DAILY #30 tab 08/21/17 [Rx] Fexofenadine HCl [Amanda Allergy] 180 mg PO DAILY 09/27/17 [History] Insulin Aspart [NovoLOG] 14 unit SQ AC-LUNCH 09/27/17 [History] Insulin Aspart [NovoLOG] 14 unit SQ AC-SUPPER 09/27/17 [History] Aspirin 81 mg PO DAILY #90 chewable 10/07/17 [Rx] Diltiazem HCl 60 mg PO TID 10/23/17 [History] Midodrine HCl [ProAmatine] 5 mg PO DAILY PRN 10/23/17 [History] Acetaminophen Tab [Tylenol] 325 mg PO Q6H PRN 11/09/17 [History] Clopidogrel [Plavix] 75 mg PO DAILY 11/09/17 [History] Darbepoetin Aron [Aranesp] 40 mcg SQ Q7D syringe 11/15/17 [Rx] Insulin Glargine [Lantus] 35 unit SQ BID #0 11/15/17 [Rx] Metoprolol Succinate (ER) [Toprol XL] 50 mg PO DAILY #30 tab 11/15/17 [Rx] metroNIDAZOLE [Flagyl] 500 mg PO TID #21 tab 11/15/17 [Rx] predniSONE 10 mg PO DIRECTED #30 tab 11/15/17 [Rx] Follow up Appointment(s)/Referral(s): Meghan Garcia MD [Primary Care Provider] - 11/22/17 1:00 pm (Monday) Jimmy Vieyra MD [STAFF PHYSICIAN] - 12/11/17 4:30 pm (Monday) Chava Combs MD [STAFF PHYSICIAN] - 12/01/17 11:00 am (Monday) Tc Manrique DO [STAFF PHYSICIAN] - 1 Week (with dialysis) Carolina Hanson MD [STAFF PHYSICIAN] - 11/29/17 2:30 pm (Monday with KIRT Cartagena ) [facility] Visiting Nurse, [NON-STAFF] - As Needed Activity/Diet/Wound Care/Special Instructions: Increase Lantus to 35 units twice daily while on steroids, then return to 30 units twice daily. Discharge Disposition: HOME WITH HOME HEALTH SERVICES
== END 2017-11-15 18:52 | disposition home health service (06) | DRG 871 ==
LOC: EC 10:11 → 6ICU 11:48 → 6SEL 11-10 20:25
PROVIDERS: ADMIT Internal Medicine; ATTEND Internal Medicine
PROC: 5A1D70Z Performance of Urinary Filtration, Intermittent, Less than 6 Hours Per Day (ICD-10-PCS; principal; 2017-11-09)
PROC: 5A09557 Assistance with Respiratory Ventilation, Greater than 96 Consecutive Hours, Continuous Positive Airway Pressure (ICD-10-PCS; 2017-11-10)
PROC: 5A1D70Z Performance of Urinary Filtration, Intermittent, Less than 6 Hours Per Day (ICD-10-PCS; 2017-11-11)
PROC: 5A1D70Z Performance of Urinary Filtration, Intermittent, Less than 6 Hours Per Day (ICD-10-PCS; 2017-11-13)
PROC: 5A1D70Z Performance of Urinary Filtration, Intermittent, Less than 6 Hours Per Day (ICD-10-PCS; 2017-11-14)
DX: A41.9 Sepsis, unspecified organism (principal); N18.6 End stage renal disease; G93.41 Metabolic encephalopathy; J96.01 Acute respiratory failure with hypoxia; E87.2 Acidosis; I13.2 Hypertensive heart and chronic kidney disease with heart failure and with stage 5 chronic kidney disease, or end stage renal disease; I50.32 Chronic diastolic (congestive) heart failure; D62 Acute posthemorrhagic anemia; I42.9 Cardiomyopathy, unspecified; K55.9 Vascular disorder of intestine, unspecified; E87.1 Hypo-osmolality and hyponatremia; F33.9 Major depressive disorder, recurrent, unspecified; N39.0 Urinary tract infection, site not specified; J44.1 Chronic obstructive pulmonary disease with (acute) exacerbation; R65.20 Severe sepsis without septic shock; I95.9 Hypotension, unspecified; I48.2 Chronic atrial fibrillation; E11.42 Type 2 diabetes mellitus with diabetic polyneuropathy; E11.21 Type 2 diabetes mellitus with diabetic nephropathy; E11.65 Type 2 diabetes mellitus with hyperglycemia; E86.0 Dehydration; E87.5 Hyperkalemia; E11.22 Type 2 diabetes mellitus with diabetic chronic kidney disease; E66.01 Morbid (severe) obesity due to excess calories; E83.9 Disorder of mineral metabolism, unspecified; I35.0 Nonrheumatic aortic (valve) stenosis; K76.0 Fatty (change of) liver, not elsewhere classified; D50.0 Iron deficiency anemia secondary to blood loss (chronic); D63.1 Anemia in chronic kidney disease; E61.1 Iron deficiency; T38.0X5A Adverse effect of glucocorticoids and synthetic analogues, initial encounter; G47.33 Obstructive sleep apnea (adult) (pediatric); E78.5 Hyperlipidemia, unspecified; K21.9 Gastro-esophageal reflux disease without esophagitis; I25.2 Old myocardial infarction; R32 Unspecified urinary incontinence; G89.29 Other chronic pain; M54.9 Dorsalgia, unspecified; R29.6 Repeated falls; K59.00 Constipation, unspecified; K64.9 Unspecified hemorrhoids; I25.10 Atherosclerotic heart disease of native coronary artery without angina pectoris; Z68.38 Body mass index [BMI] 38.0-38.9, adult; Z71.3 Dietary counseling and surveillance; Z99.2 Dependence on renal dialysis; Z79.01 Long term (current) use of anticoagulants; Z79.82 Long term (current) use of aspirin; Z79.02 Long term (current) use of antithrombotics/antiplatelets; Z79.4 Long term (current) use of insulin; Z79.899 Other long term (current) drug therapy; Z87.01 Personal history of pneumonia (recurrent); Z86.14 Personal history of Methicillin resistant Staphylococcus aureus infection; Z95.5 Presence of coronary angioplasty implant and graft; Z90.710 Acquired absence of both cervix and uterus; Z90.49 Acquired absence of other specified parts of digestive tract; Z99.3 Dependence on wheelchair; Z98.42 Cataract extraction status, left eye; Z98.41 Cataract extraction status, right eye; Z88.1 Allergy status to other antibiotic agents; Z88.8 Allergy status to other drugs, medicaments and biological substances; Z82.49 Family history of ischemic heart disease and other diseases of the circulatory system; Z82.3 Family history of stroke; Z82.5 Family history of asthma and other chronic lower respiratory diseases
CPT/HCPCS: 36415; 36600; 71045; 71046; 74177; 80048; 80053; 80202; 81001; 82550; 82553; 82728; 82805; 82947; 83036; 83540; 83550; 83605; 83735; 84100; 84484; 85025; 85027; 85610; 85730; 86706; 87040; 87086; 87340; 90935; 93005; 94640; 94660; 94760; 96361; 96365; 96366; 96367; 96375; 99291

== ENCOUNTER 2017-11-23 11:59 | Inpatient (IN) | payer MEDICARE ==
[2017-11-23] MEDS ORDERED: PANTOPRAZOLE 40 MG/10 ML VIAL IVP STA (12:18)
--- NOTE | 2017-11-23 12:21 | ED ---
General Adult HPI - General Chief complaint: Weakness Stated complaint: weakness Time Seen by Provider: 11/23/17 12:03 Source: patient, EMS, RN notes reviewed Mode of arrival: EMS Limitations: no limitations - History of Present Illness Initial comments: Patient is a pleasant 72-year-old female presenting to the emergency Department with complaints of weakness. Patient was in the hospital a week ago for sepsis of undetermined ALLERGY. Patient has not felt great since that time. Patient has been more weak for the past 2 days. Patient has noticed some dark stools. Patient is on Eliquis and Plavix and aspirin. No vomiting. No history of similar symptoms previously. No confusion or isolated area of weakness. - Related Data Home Medications Medication Instructions Recorded Confirmed DULoxetine HCL [Cymbalta] 60 mg PO DAILY 08/04/14 11/23/17 Fish Oil/Dha/Epa [Fish Oil 1,200 1 cap PO MOWEFR 08/04/14 11/23/17 mg Fish Oil] Amiodarone HCl [Pacerone] 100 mg PO DAILY 11/22/15 11/23/17 Apixaban [Eliquis] 2.5 mg PO BID 11/22/15 11/23/17 Docusate [Colace] 100 mg PO BID 11/22/15 11/23/17 Ezetimibe [Zetia] 10 mg PO DAILY 11/22/15 11/23/17 Isosorbide Mononitrate ER [Imdur] 30 mg PO DAILY 11/22/15 11/23/17 Cranberry 4200mg-Vitamin C 1 tab PO BID 12/25/16 11/23/17 Omeprazole 20 mg PO DAILY 12/25/16 11/23/17 Cholecalciferol (Vitamin D3) 2,000 unit PO DAILY 12/31/16 11/23/17 [Vitamin D3] Ferrous Sulfate [Iron (65 MG 325 mg PO DAILY 05/05/17 11/23/17 Elemental)] Insulin Aspart [NovoLOG See Protocol SQ AC-TID 05/05/17 11/23/17 (formulary)] Magnesium Oxide [Mag-Ox] 250 mg PO DAILY 05/05/17 11/23/17 Insulin Aspart [NovoLOG 12 unit SQ AC-BRKFST 08/16/17 11/23/17 (formulary)] Fexofenadine HCl [Amanda Allergy] 180 mg PO DAILY 09/27/17 11/23/17 Insulin Aspart [NovoLOG] 14 unit SQ AC-LUNCH 09/27/17 11/23/17 Insulin Aspart [NovoLOG] 14 unit SQ AC-SUPPER 09/27/17 11/23/17 Diltiazem HCl 60 mg PO TID 10/23/17 11/23/17 Midodrine HCl [ProAmatine] 5 mg PO DAILY PRN 10/23/17 11/23/17 Acetaminophen Tab [Tylenol] 325 mg PO Q6H PRN 11/09/17 11/23/17 predniSONE See Taper PO DAILY 11/23/17 11/23/17 Previous Rx's Medication Instructions Recorded Gabapentin [Neurontin] 300 mg PO BID #60 capsule 11/27/15 Furosemide [Lasix] 80 mg PO BID@0900,1600 tab 01/13/17 Sevelamer [Renvela] 800 mg PO TID-W/MEALS #90 tab 05/15/17 Clopidogrel [Plavix] 75 mg PO DAILY #30 tab 08/21/17 Aspirin 81 mg PO DAILY #90 chewable 10/07/17 Darbepoetin Aron [Aranesp] 40 mcg SQ Q7D syringe 11/15/17 Insulin Glargine [Lantus] 35 unit SQ BID #0 11/15/17 Metoprolol Succinate (ER) [Toprol 50 mg PO DAILY #30 tab 11/15/17 XL] metroNIDAZOLE [Flagyl] 500 mg PO TID #21 tab 11/15/17 Allergies Allergy/AdvReac Type Severity Reaction Status Date / Time KUSHAL Inhibitors Allergy Swelling Verified 11/23/17 12:21 ARB-Angiotensin Receptor Allergy Swelling Verified 11/23/17 12:21 Antagonist cephalexin monohydrate Allergy Rash/Hives Verified 11/23/17 12:21 [From Keflex] propoxyphene HCl AdvReac Hallucinati Verified 11/23/17 12:21 [From Darvon] ons Dhrrtwo-Obq-Qnq Reductase AdvReac Myalgia Verified 11/23/17 12:21 Inhibitor Review of Systems ROS Statement: Those systems with pertinent positive or pertinent negative responses have been documented in the HPI. ROS Other: All systems not noted in ROS Statement are negative. Constitutional: Denies: fever Eyes: Denies: eye pain ENT: Denies: ear pain Respiratory: Denies: cough Cardiovascular: Denies: chest pain Endocrine: Reports: fatigue Gastrointestinal: Reports: melena. Denies: abdominal pain Genitourinary: Denies: dysuria Musculoskeletal: Denies: back pain Skin: Denies: rash Neurological: Reports: weakness (Generalized) Past Medical History Past Medical History: Atrial Fibrillation, Coronary Artery Disease (CAD), Heart Failure, Diabetes Mellitus, GERD/Reflux, Hyperlipidemia, Hypertension, Myocardial Infarction (MD), Pneumonia, Renal Disease, Sleep Apnea/CPAP/BIPAP Additional Past Medical History / Comment(s): Morbid obesity, coronary artery disease, moderate degree of aortic stenosis, chronic atrial fibrillation paroxysmal, diabetes mellitus, hypertension, hyperlipidemia, 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 coli, chronic back pain, peripheral neuropathy, chronic anemia, fatty liver, obstructive sleep apnea maintained on BiPAP on outpatient basis, history of wounds/sore in the right foot that was healed, healed sacral decubitus ulceration and bedsores Last Myocardial Infarction Date:: 2015 History of Any Multi-Drug Resistant Organisms: MRSA Date of last positivie culture/infection: 05/07/17 MDRO Source:: sputum Past Surgical History: Back Surgery, Cholecystectomy, Heart Catheterization, Heart Catheterization With Stent, Hysterectomy, Orthopedic Surgery Additional Past Surgical History / Comment(s): PCI with stents, several back surgeries-lumbar, bilateral carpal tunnel releases, bilateral cataract removals , port then fistula for hemodialysis. Past Anesthesia/Blood Transfusion Reactions: No Reported Reaction Additional Past Anesthesia/Blood Transfusion Reaction / Comment(s): Confusion that resolved. Date of Last Stent Placement:: 10/06/17 Past Psychological History: No Psychological Hx Reported Smoking Status: Never smoker Past Alcohol Use History: None Reported Past Drug Use History: None Reported - Past Family History Father Additional Family Medical History / Comment(s): Brain aneurysm ; age 72 Sister(s) Family Medical History: Hypertension Additional Family Medical History / Comment(s): Aortic stenosis; mitral valve disease Mother Family Medical History: AFIB, CVA/TIA, Hypertension Additional Family Medical History / Comment(s): mother age 83 Daughter(s) Family Medical History: Asthma Son(s) Family Medical History: Asthma General Exam Limitations: no limitations General appearance: alert, in no apparent distress Head exam: Present: atraumatic Eye exam: Present: normal appearance, PERRL ENT exam: Present: normal oropharynx Neck exam: Present: normal inspection Respiratory exam: Present: normal lung sounds bilaterally Cardiovascular Exam: Present: regular rate, normal rhythm, systolic murmur ( Patient states this is normal for her) GI/Abdominal exam: Present: soft, tenderness (Minimal tenderness suprapubic region.). Absent: distended Rectal exam: Present: bloody stool (Maroon stool) Extremities exam: Present: normal inspection, other (Left arm fistula.) Neurological exam: Present: alert Psychiatric exam: Present: normal affect, normal mood Skin exam: Present: normal color Course Vital Signs 11/23/17 11/23/17 12:03 12:31 Temperature 97.4 F L Pulse Rate 76 Respiratory 24 Rate Blood Pressure 131/59 O2 Sat by Pulse 96 Oximetry EKG Findings - EKG Comments: EKG Findings:: Normal sinus rhythm 76. TN 146. QRS 132. QT 458. QTC 515. Left axis. Right bundle branch block. Left anterior fascicular block. LVH criteria. Nonspecific ST-T. Medical Decision Making - Medical Decision Making Patient reevaluated. Patient and family updated. Blood transfusion has been ordered. Case was discussed in detail with Dr. Robertson, covering for Dr. Kristel mccurdy, who will admit. His was also discussed in detail with Dr. Ocasio, who will consult. - Lab Data Result diagrams: 11/23/17 12:25 11/23/17 12:25 Lab Results 11/23/17 11/23/17 11/23/17 Range/Units 12:25 12:25 12:25 WBC 17.0 H (3.8-10.6) k/uL RBC 1.88 L (3.80-5.40) m/uL Hgb 5.8 L* D (11.4-16.0) gm/dL Hct 18.6 L* (34.0-46.0) % MCV 98.9 (80.0-100.0) fL MCH 30.9 (25.0-35.0) pg MCHC 31.2 (31.0-37.0) g/dL RDW 18.8 H (11.5-15.5) % Plt Count 254 (150-450) k/uL Neutrophils % 85 % Lymphocytes % 8 % Monocytes % 4 % Eosinophils % 2 % Basophils % 0 % Neutrophils # 14.4 H (1.3-7.7) k/uL Lymphocytes # 1.4 (1.0-4.8) k/uL Monocytes # 0.7 (0-1.0) k/uL Eosinophils # 0.3 (0-0.7) k/uL Basophils # 0.0 (0-0.2) k/uL Hypochromasia Moderate Anisocytosis Slight Macrocytosis Slight PT (9.0-12.0) sec INR (<1.2) APTT (22.0-30.0) sec Sodium 136 L (137-145) mmol/L Potassium 4.9 (3.5-5.1) mmol/L Chloride 98 (98-107) mmol/L Carbon Dioxide 25 (22-30) mmol/L Anion Gap 13 mmol/L BUN 87 H* (7-17) mg/dL Creatinine 4.50 H (0.52-1.04) mg/dL Est GFR (CKD-EPI)AfAm 11 (>60 ml/min/1.73 sqM) Est GFR (CKD-EPI)NonAf 9 (>60 ml/min/1.73 sqM) Glucose 84 (74-99) mg/dL Plasma Lactic Acid Satinder 1.6 (0.7-2.0) mmol/L Calcium 8.3 L (8.4-10.2) mg/dL Phosphorus 4.9 H (2.5-4.5) mg/dL Magnesium 2.3 (1.6-2.3) mg/dL Total Bilirubin 0.4 (0.2-1.3) mg/dL AST 27 (14-36) U/L ALT 40 (9-52) U/L Alkaline Phosphatase 91 (38-126) U/L Total Protein 5.2 L (6.3-8.2) g/dL Albumin 2.8 L (3.5-5.0) g/dL Stool Occult Blood (Negative) Blood Type Blood Type Recheck Antibody Screen Spec Expiration Date 11/23/17 11/23/17 11/23/17 Range/Units 12:25 12:44 14:15 WBC (3.8-10.6) k/uL RBC (3.80-5.40) m/uL Hgb (11.4-16.0) gm/dL Hct (34.0-46.0) % MCV (80.0-100.0) fL MCH (25.0-35.0) pg MCHC (31.0-37.0) g/dL RDW (11.5-15.5) % Plt Count (150-450) k/uL Neutrophils % % Lymphocytes % % Monocytes % % Eosinophils % % Basophils % % Neutrophils # (1.3-7.7) k/uL Lymphocytes # (1.0-4.8) k/uL Monocytes # (0-1.0) k/uL Eosinophils # (0-0.7) k/uL Basophils # (0-0.2) k/uL Hypochromasia Anisocytosis Macrocytosis PT 10.6 (9.0-12.0) sec INR 1.1 (<1.2) APTT 23.3 (22.0-30.0) sec Sodium (137-145) mmol/L Potassium (3.5-5.1) mmol/L Chloride (98-107) mmol/L Carbon Dioxide (22-30) mmol/L Anion Gap mmol/L BUN (7-17) mg/dL Creatinine (0.52-1.04) mg/dL Est GFR (CKD-EPI)AfAm (>60 ml/min/1.73 sqM) Est GFR (CKD-EPI)NonAf (>60 ml/min/1.73 sqM) Glucose (74-99) mg/dL Plasma Lactic Acid Satinder (0.7-2.0) mmol/L Calcium (8.4-10.2) mg/dL Phosphorus (2.5-4.5) mg/dL Magnesium (1.6-2.3) mg/dL Total Bilirubin (0.2-1.3) mg/dL AST (14-36) U/L ALT (9-52) U/L Alkaline Phosphatase (38-126) U/L Total Protein (6.3-8.2) g/dL Albumin (3.5-5.0) g/dL Stool Occult Blood Positive H (Negative) Blood Type O Positive Blood Type Recheck No Antibody Screen NEGATIVE Spec Expiration Date 11/26/2017 - 2315 - Radiology Data Radiology results: image reviewed (Two-view chest x-ray shows No acute process.) Critical Care Time Critical Care Time: Yes Total Critical Care Time: 32 Disposition Clinical Impression: Lower GI hemorrhage Disposition: ADMITTED IP TO THIS [facility] Condition: Serious Is patient prescribed a controlled substance at d/c from ED?: No Referrals: Meghan Garcia MD [Primary Care Provider] - 1-2 days Decision Time: 15:04
[2017-11-23 12:58] LABS: Anisocytosis Slight; Hypochromasia Moderate; Lymphocytes # (A) 1.4 k/uL (1.0-4.8); Lymphocytes % (A) 8 %; MCHC 31.2 g/dL (31.0-37.0); Macrocytosis Slight; RDW 18.8 % (11.5-15.5)
--- NOTE | 2017-11-23 13:04 | XR ---
EXAMINATION TYPE: XR chest 2V DATE OF EXAM: 11/23/2017 COMPARISON: NONE HISTORY: Shortness of breath TECHNIQUE: Frontal and lateral views of the chest are obtained. FINDINGS: Scattered senescent parenchymal changes noted. Hyperinflation compatible with COPD. No evidence for infiltrate. No evidence for atelectasis. Heart size is stable. Mediastinal structures are stable and grossly unremarkable. No evidence for hilar prominence. Degenerative changes dorsal spine. IMPRESSION: 1. No evidence for acute pulmonary disease.
[2017-11-23 13:06] LABS: Basophils % (A) 0 %; Eosinophils # (A) 0.3 k/uL (0-0.7); Eosinophils % (A) 2 %; MCH 30.9 pg (25.0-35.0); MCV 98.9 fL (80.0-100.0); Mean Platelet Volume 7.8; Monocytes # (A) 0.7 k/uL (0-1.0); Monocytes % (A) 4 %; Neutrophils # (A) 14.4 k/uL (1.3-7.7); Neutrophils % (A) 85 %; Platelet Count 254 k/uL (150-450); RBC 1.88 m/uL (3.80-5.40)
[2017-11-23 13:11] LABS: Albumin 2.8 g/dL (3.5-5.0); Calcium 8.3 mg/dL (8.4-10.2); INR 1.1 (<1.2); Magnesium 2.3 mg/dL (1.6-2.3); Partial Thromboplastin Time 23.3 sec (22.0-30.0); Phosphorus 4.9 mg/dL (2.5-4.5); Potassium 4.9 mmol/L (3.5-5.1); Prothrombin Time 10.6 sec (9.0-12.0); Total Bilirubin 0.4 mg/dL (0.2-1.3); Total Protein 5.2 g/dL (6.3-8.2)
[2017-11-23 13:12] LABS: HCT 18.6 % (34.0-46.0); HGB 5.8 gm/dL (11.4-16.0)
[2017-11-23] MEDS ORDERED: NALOXONE 0.4 MG/ML 1 ML VIAL IV PRN (15:04)
[2017-11-23] MEDS ORDERED: PANTOPRAZOLE 40 MG/10 ML VIAL IV SCH (15:15)
[2017-11-23] MEDS ORDERED: SODIUM CHLORIDE 0.9% 1,000 ML IV SCH (15:15)
[2017-11-23] MEDS ORDERED: DEXTROSE 50%-WATER 50 ML SYRINGE IVP ONE (16:49)
[2017-11-23 16:51] LABS: Glucose,Whole Blood 50 mg/dL (75-99)
[2017-11-23 16:51] LABS: Glucose,Whole Blood 53 mg/dL (75-99)
[2017-11-23 17:14] LABS: Glucose,Whole Blood 91 mg/dL (75-99)
[2017-11-23] MEDS ORDERED: MIDODRINE 5 MG TAB PO PRN (18:03)
[2017-11-23] MEDS: GABAPENTIN 300 MG CAP PO SCH (21:39)
[2017-11-23] MEDS: PANTOPRAZOLE 40 MG/10 ML VIAL IV SCH (21:39)
[2017-11-23] MEDS: DILTIAZEM ORAL 60 MG TAB PO SCH (21:39)
[2017-11-23] MEDS: DOCUSATE 100 MG CAP PO SCH (21:39)
[2017-11-23 21:44] LABS: Glucose,Whole Blood 66 mg/dL (75-99)
[2017-11-23 22:14] LABS: Anisocytosis Slight; HCT 35.6 % (34.0-46.0); MCH 28.8 pg (25.0-35.0); Mean Platelet Volume 7.6; Platelet Count 202 k/uL (150-450); Poikilocytosis Slight; RBC 3.96 m/uL (3.80-5.40); RDW 19.1 % (11.5-15.5); WBC 14.1 k/uL (3.8-10.6)
[2017-11-23 22:16] LABS: Glucose,Whole Blood 103 mg/dL (75-99)
[2017-11-23] MEDS: INSULIN ASPART 100 UNIT/ML 1 ML 10 ML VIAL SQ SCH (22:24)
[2017-11-23] MEDS: CRANBERRY W/ VIT C PO SCH (22:25)
[2017-11-23 22:31] LABS: HGB 11.4 gm/dL (11.4-16.0)
[2017-11-23] MEDS ORDERED: ISOSORBIDE MONONITRATE ER 30 MG TAB.ER.24H PO STA (23:36)
[2017-11-23] MEDS ORDERED: METOPROLOL SUCCINATE (ER) 50 MG TAB.ER.24H PO STA (23:37)
[2017-11-24] MEDS: ACETAMINOPHEN TAB 325 MG TAB PO PRN (00:34)
[2017-11-24 02:34] LABS: Glucose,Whole Blood 63 mg/dL (75-99)
[2017-11-24 02:44] LABS: Albumin 2.9 g/dL (3.5-5.0); Calcium 8.6 mg/dL (8.4-10.2); Magnesium 2.1 mg/dL (1.6-2.3); Phosphorus 4.2 mg/dL (2.5-4.5); Potassium 4.4 mmol/L (3.5-5.1); Total Bilirubin 0.5 mg/dL (0.2-1.3); Total Protein 5.3 g/dL (6.3-8.2)
[2017-11-24 02:57] LABS: Glucose,Whole Blood 159 mg/dL (75-99)
[2017-11-24] MEDS: INSULIN ASPART 100 UNIT/ML 1 ML 10 ML VIAL SQ SCH ×5 (04:18→21:50)
[2017-11-24 04:23] LABS: Anisocytosis Moderate; Basophils % (A) 0 %; Eosinophils # (A) 0.1 k/uL (0-0.7); Eosinophils % (A) 1 %; HCT 33.9 % (34.0-46.0); HGB 10.6 gm/dL (11.4-16.0); Hypochromasia Moderate; Lymphocytes % (A) 9 %; MCH 29.4 pg (25.0-35.0); MCHC 31.2 g/dL (31.0-37.0); MCV 94.3 fL (80.0-100.0); Macrocytosis Slight; Mean Platelet Volume 7.7; Monocytes # (A) 0.6 k/uL (0-1.0); Monocytes % (A) 5 %; Neutrophils # (A) 9.9 k/uL (1.3-7.7); Neutrophils % (A) 84 %; Platelet Count 170 k/uL (150-450); Poikilocytosis Slight; RBC 3.59 m/uL (3.80-5.40); RDW 20.1 % (11.5-15.5); WBC 11.8 k/uL (3.8-10.6)
[2017-11-24 05:06] LABS: Anisocytosis Slight; HCT 30.9 % (34.0-46.0); HGB 9.7 gm/dL (11.4-16.0); Hypochromasia Slight; MCH 28.7 pg (25.0-35.0); MCHC 31.5 g/dL (31.0-37.0); Mean Platelet Volume 8.1; Platelet Count 163 k/uL (150-450); Poikilocytosis Slight; RDW 19.5 % (11.5-15.5); WBC 11.2 k/uL (3.8-10.6)
[2017-11-24 07:05] LABS: Glucose,Whole Blood 85 mg/dL (75-99)
--- NOTE | 2017-11-24 08:01 | CONS ---
CONSULTATION Attending: Dr. Garcia. Mrs. Corrigan is a 72-year-old female with a history of coronary disease, paroxysmal atrial fibrillation who presented to the emergency room with symptoms of progressive fatigue and had black stool. She has history of coronary artery disease, has underwent cardiac catheterization and stenting of the LAD in July 2017 and subsequently left circumflex in August 2017. She had end-stage renal disease on hemodialysis as well as episode of GI bleeding and most likely was admitted few weeks ago with similar things. Patient presented to the hospital with severe anemia and received transfusion of 2 units and subsequently received dialysis. She is feeling better at this time. She denies any chest pain. Her breathing has been stable. She denies any dizziness or palpitation. At this point, she is in sinus mechanism. She has no clear symptoms of PND, orthopnea, or peripheral edema. Her coronary risk factors are positive for diabetes, hypertension, hyperlipidemia. She is nonsmoker. MEDICATIONS: Her medications include midodrine, insulin, Renvela, metoprolol succinate 50 mg daily, isosorbide mononitrate 30 mg daily, Lasix 80 mg twice a day, Zetia 10 mg daily, diltiazem CD 60 mg 3 times a day, Plavix 75 mg daily, aspirin 81 mg daily, and Eliquis 2.5 mg daily in addition to amiodarone 100 mg daily. PHYSICAL EXAMINATION: Blood pressure running in the 130 to 160 with the heart rate in 70s. HEAD: Normocephalic. EYES: Sclerae anicteric. NECK: No bruit. LUNGS: Clear to auscultation. HEART: Regular rate and rhythm. S1, S2. No S3 with systolic ejection murmur 2/6 ejection type at the base. ABDOMEN: Soft, obese with mild tenderness in the lower quadrant. EXTREMITIES: No edema. Fistula noted in the left upper extremity. LAB DATA: Lab data revealed a hemoglobin of 9.7 this morning, on presentation was 5.8. Her BUN and creatinine this morning 49 and 2.9 after the transfusion. She is heme positive. Her EKG on presentation revealed a sinus mechanism, rate of 76, left axis deviation, right bundle branch block, nonspecific ST-T wave changes. IMPRESSION: 1. One acute gastrointestinal bleeding in a patient with triple anticoagulation. 2. Status post multivessel coronary angioplasty and stenting. 3. Moderate aortic stenosis. 4. History of end-stage renal disease, on hemodialysis. 5. Hypertension. 6. Hyperlipidemia. 7. Diabetes mellitus. RECOMMENDATION: From the cardiac standpoint, at this time her aspirin and Plavix are on hold. I will await the input of the GI service for resuming her Plavix at least and continue to hold the Eliquis. Will continue the amiodarone as present and depending on her progress further recommendation will be made. The patient has underwent an echocardiogram in July and at that time, her left ventricular systolic function was preserved and she had moderate mitral regurgitation with a mean gradient of 26 mmHg across the aortic valve. Thank you for this consult. We will follow with you. RAINE / IJN: [id number] /
--- NOTE | 2017-11-24 08:48 | XR ---
EXAMINATION TYPE: XR chest 1V DATE OF EXAM: 11/24/2017 COMPARISON: 11/23/2017 HISTORY: Shortness of breath TECHNIQUE: Single frontal view of the chest is obtained. FINDINGS: There is no focal air space opacity, pleural effusion, or pneumothorax seen. The cardiac silhouette size is within normal limits. The osseous structures are intact. Hyperinflation stable. Atherosclerotic change aorta postsurgical changes seen. Question metallic density overlying the desce nding thoracic aorta stable in appearance of uncertain etiology. IMPRESSION: No acute process.
--- NOTE | 2017-11-24 09:07 | P.NPCON ---
History of Present Illness - Reason for Consult end stage renal disease - History of Present Illness Reason for consultation: End-stage renal disease History of present illness: Patient is a 72-year-old female seen in renal consultation for end-stage renal disease. She is maintained on hemodialysis on a Monday schedule. Patient admits dialysis yesterday but did get a treatment in the hospital last night. Patient presented due to having dark stools for the last 2 days. She was maintained on aspirin Plavix as well as Eliquis. Her hemoglobin was 5.8 on admission and did improve to 11.4 after 2 units of blood transfusion. It is down to 9.7 this morning. She hasn't had any signs of active bleeding today. Hemodynamically she stable. Denies vomiting or diarrhea. Anticoagulation is held. Denies fever or chills. Denies chest pain or shortness of breath. Vital signs are stable. General: The patient appeared well nourished and normally developed. HEENT: Head exam is unremarkable. Neck is without jugular venous distension. LUNGS: Lungs are clear to auscultation and percussion. Breath sounds decreased. HEART: Rate and Rhythm are regular. First and second heart sounds normal. No murmurs, rubs or gallops. ABDOMEN: Abdominal exam reveals normal bowel sounds. Non-tender and non- distended. No evidence of peritonitis. EXTREMITITES: No clubbing, cyanosis, or edema. Past Medical History Past Medical History: Atrial Fibrillation, Coronary Artery Disease (CAD), Heart Failure, Diabetes Mellitus, GERD/Reflux, Hyperlipidemia, Hypertension, Myocardial Infarction (CO), Pneumonia, Renal Disease, Sleep Apnea/CPAP/BIPAP Additional Past Medical History / Comment(s): Morbid obesity, coronary artery disease, moderate degree of aortic stenosis, chronic atrial fibrillation paroxysmal, diabetes mellitus, hypertension, hyperlipidemia, 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 coli, chronic back pain, peripheral neuropathy, chronic anemia, fatty liver, obstructive sleep apnea maintained on BiPAP on outpatient basis, history of wounds/sore in the right foot that was healed, healed sacral decubitus ulceration and bedsores Last Myocardial Infarction Date:: 2016 History of Any Multi-Drug Resistant Organisms: MRSA Date of last positivie culture/infection: 05/07/17 MDRO Source:: sputum Past Surgical History: Back Surgery, Cholecystectomy, Heart Catheterization, Heart Catheterization With Stent, Hysterectomy, Orthopedic Surgery Additional Past Surgical History / Comment(s): PCI with stents, several back surgeries-lumbar, bilateral carpal tunnel releases, bilateral cataract removals , port then fistula for hemodialysis. Past Anesthesia/Blood Transfusion Reactions: No Reported Reaction Additional Past Anesthesia/Blood Transfusion Reaction / Comment(s): Confusion that resolved. Date of Last Stent Placement:: 10/06/17 Past Psychological History: No Psychological Hx Reported Additional Psychological History / Comment(s): Pt's rachel resides with her. Pt is wheelchair bound. She can transfer herself into wheelchair and onto toilet. Daughter organizes her medications. She has oxygen in the house which she is currently using prn. Smoking Status: Never smoker Past Alcohol Use History: None Reported Additional Past Alcohol Use History / Comment(s): Patient had exposure to secondhand smoke with her . Past Drug Use History: None Reported - Past Family History Father Additional Family Medical History / Comment(s): Brain aneurysm ; age 72 Sister(s) Family Medical History: Hypertension Additional Family Medical History / Comment(s): Aortic stenosis; mitral valve disease Mother Family Medical History: AFIB, CVA/TIA, Hypertension Additional Family Medical History / Comment(s): mother age 83 Daughter(s) Family Medical History: Asthma Son(s) Family Medical History: Asthma Medications and Allergies Home Medications Medication Instructions Recorded Confirmed Type DULoxetine HCL [Cymbalta] 60 mg PO DAILY 08/04/14 11/23/17 History Fish Oil/Dha/Epa [Fish Oil 1,200 1 cap PO MOWEFR 08/04/14 11/23/17 History mg Fish Oil] Amiodarone HCl [Pacerone] 100 mg PO DAILY 11/22/15 11/23/17 History Apixaban [Eliquis] 2.5 mg PO BID 11/22/15 11/23/17 History Docusate [Colace] 100 mg PO BID 11/22/15 11/23/17 History Ezetimibe [Zetia] 10 mg PO DAILY 11/22/15 11/23/17 History Isosorbide Mononitrate ER [Imdur] 30 mg PO DAILY 11/22/15 11/23/17 History Gabapentin [Neurontin] 300 mg PO BID #60 capsule 11/27/15 11/23/17 Rx Cranberry 4200mg-Vitamin C 1 tab PO BID 12/25/16 11/23/17 History Omeprazole 20 mg PO DAILY 12/25/16 11/23/17 History Cholecalciferol (Vitamin D3) 2,000 unit PO DAILY 12/31/16 11/23/17 History [Vitamin D3] Furosemide [Lasix] 80 mg PO BID@0900,1600 tab 01/13/17 11/23/17 Rx Ferrous Sulfate [Iron (65 MG 325 mg PO DAILY 05/05/17 11/23/17 History Elemental)] Insulin Aspart [NovoLOG See Protocol SQ AC-TID 05/05/17 11/23/17 History (formulary)] Magnesium Oxide [Mag-Ox] 250 mg PO DAILY 05/05/17 11/23/17 History Sevelamer [Renvela] 800 mg PO TID-W/MEALS #90 tab 05/15/17 11/23/17 Rx Insulin Aspart [NovoLOG 12 unit SQ AC-BRKFST 08/16/17 11/23/17 History (formulary)] Clopidogrel [Plavix] 75 mg PO DAILY #30 tab 08/21/17 11/23/17 Rx Fexofenadine HCl [Amanda Allergy] 180 mg PO DAILY 09/27/17 11/23/17 History Insulin Aspart [NovoLOG] 14 unit SQ AC-LUNCH 09/27/17 11/23/17 History Insulin Aspart [NovoLOG] 14 unit SQ AC-SUPPER 09/27/17 11/23/17 History Aspirin 81 mg PO DAILY #90 chewable 10/07/17 11/23/17 Rx Diltiazem HCl 60 mg PO TID 10/23/17 11/23/17 History Midodrine HCl [ProAmatine] 5 mg PO DAILY PRN 10/23/17 11/23/17 History Acetaminophen Tab [Tylenol] 325 mg PO Q6H PRN 11/09/17 11/23/17 History Darbepoetin Aron [Aranesp] 40 mcg SQ Q7D syringe 11/15/17 11/23/17 Rx Insulin Glargine [Lantus] 35 unit SQ BID #0 11/15/17 11/23/17 Rx Metoprolol Succinate (ER) [Toprol 50 mg PO DAILY #30 tab 11/15/17 11/23/17 Rx XL] metroNIDAZOLE [Flagyl] 500 mg PO TID #21 tab 11/15/17 11/23/17 Rx predniSONE See Taper PO DAILY 11/23/17 11/23/17 History Allergies Allergy/AdvReac Type Severity Reaction Status Date / Time KUSHAL Inhibitors Allergy Swelling Verified 11/23/17 12:21 ARB-Angiotensin Receptor Allergy Swelling Verified 11/23/17 12:21 Antagonist cephalexin monohydrate Allergy Rash/Hives Verified 11/23/17 12:21 [From Keflex] propoxyphene HCl AdvReac Hallucinati Verified 11/23/17 12:21 [From Darvon] ons [id number] Reductase AdvReac Myalgia Verified 11/23/17 12:21 Inhibitor Physical Exam Vitals: Vital Signs Temp Pulse Resp BP Pulse Ox 11/24/17 08:00 98.4 F 77 17 157/49 98 11/24/17 07:29 99 11/24/17 07:00 79 16 163/59 100 11/24/17 06:00 87 16 151/80 98 11/24/17 05:00 89 24 134/68 99 11/24/17 04:00 98.1 F 88 17 121/54 99 11/24/17 03:00 84 14 146/57 99 11/24/17 02:00 84 15 131/40 99 11/24/17 01:00 83 16 146/44 99 11/24/17 00:10 87 17 143/52 100 11/24/17 00:00 88 18 143/52 99 11/23/17 23:45 88 18 100 11/23/17 23:30 90 14 155/47 100 11/23/17 23:15 90 17 177/54 100 11/23/17 23:00 89 16 119/51 97 11/23/17 22:45 86 16 144/60 11/23/17 22:30 86 17 117/47 95 11/23/17 22:00 84 16 103/50 100 11/23/17 21:30 83 15 112/52 100 11/23/17 21:00 83 16 101/44 99 11/23/17 20:30 81 14 142/53 100 11/23/17 20:28 98.5 F 81 20 142/58 100 11/23/17 20:00 98.0 F 82 15 161/52 99 11/23/17 19:01 98.1 F 81 20 143/55 99 11/23/17 19:00 81 13 143/55 100 11/23/17 18:45 81 14 140/48 100 11/23/17 18:30 80 15 142/47 100 11/23/17 18:27 98.1 F 79 15 142/47 100 11/23/17 18:17 98.2 F 70 20 150/58 100 11/23/17 18:15 79 11 L 145/53 100 11/23/17 18:11 98.2 F 70 20 150/58 100 11/23/17 18:10 98.2 F 79 20 150/58 100 11/23/17 18:00 79 11 L 150/58 100 11/23/17 17:45 80 22 135/51 100 11/23/17 17:40 80 16 143/57 100 11/23/17 17:30 79 17 143/57 100 11/23/17 17:20 79 12 147/59 100 11/23/17 17:10 79 13 138/41 100 11/23/17 17:00 81 11 L 138/41 100 11/23/17 16:50 80 10 L 147/62 100 11/23/17 16:43 98.3 F 147/62 11/23/17 16:27 98.0 F 82 18 168/70 100 11/23/17 15:57 98.2 F 83 18 156/65 97 11/23/17 15:47 98.3 F 82 18 156/68 11/23/17 15:44 98.3 F 83 18 158/68 11/23/17 15:00 80 18 140/65 99 11/23/17 12:31 76 24 131/59 96 11/23/17 12:03 97.4 F L Intake and Output 11/23/17 11/24/17 11/24/17 22:59 06:59 14:59 Intake Total 1240 240 Output Total 0 2000 0 Balance 1240 -1760 0 Intake: Oral 240 Blood Product 1240 Rc As-1 Unit 310 [id number] Rc As-1 Unit 310 [id number] Output: Urine 0 0 0 Other 1999 Other: Voiding Method Bedpan Bedpan Weight 93.8 kg 94.2 kg Results - Lab Results Most recent lab results Calcium 8.6 mg/dL (8.4-10.2) 11/24/17 02:20 Phosphorus 4.2 mg/dL (2.5-4.5) 11/24/17 02:20 Magnesium 2.1 mg/dL (1.6-2.3) 11/24/17 02:20 11/24/17 04:44 11/24/17 02:20 Assessment and Plan Plan: Assessment: 1. End-stage renal disease maintained on hemodialysis on a Monday schedule. 2. Acute blood loss anemia with concern for GI bleed status post 2 units of blood transfusion. Hemoglobin 9.7 this morning. Anticoagulation held. 3. 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 Phosphorus at goal. 4. Hypertension with chronic kidney disease. 5. History of atrial fibrillation. Currently rate controlled. 6. Diabetes mellitus. Plan: Hemodialysis tomorrow. Add Aranesp. I will give her 1 dose of IV DDAVP. GI recommendations pending. Potential endoscopy this admission. Monitor hemoglobin closely and transfuse as needed. Thank you for the consultation. I will continue to follow the patient with you during her hospital stay.
--- NOTE | 2017-11-24 09:11 | P.CONS ---
History of Present Illness - Reason for Consult Consult date: 11/24/17 GI bleed anemia - History of Present Illness 72-year-old female past medical history of end-stage renal disease hemodialysis T, , , atrial fibrillation, CAD triple-vessel disease high risk for bypass on conservative treatment maintained on aspirin, Plavix, Eliquis, hypertension, diabetes mellitus, chronic diastolic heart failure, hyperlipidemia. Recently hospitalized a few weeks ago with sepsis and rectal bleeding thought to be related to possible ischemic colitis. CT at that time reported moderate colitis involving the cecum and ascending colon likely inflammatory in nature. She had an elevated lactic acid but improved with hydration. Hemoglobin at that time ranged between 8.3-11.1 without transfusion. Admitted with weakness reports 2 days ago she passed a very dark near black bowel movement associated with right lower quadrant discomfort then had another black bowel movement yesterday morning. Admission hemoglobin 5.8. Presently 9.7. Received 2 units of blood. BUN 87. Creatinine 4.5. INR 1.1. Denies epigastric pain hematemesis or hematochezia. Last dose of Eliquis yesterday morning. Denies fever or chills. No recent EGD. Last EGD colonoscopy December [address] Robins report is not available at time of this dictation, to her memory was unremarkable. Review of Systems Constitutional: Denies fever, chills, sweats, weight gain, or loss. Admitted with weakness. HEENT: Negative for migraines, blurred vision or loss, earaches, drainage, tinnitus, oral mucosal lesions, dysphagia, or odynophagia. CARDIAC: Negative for chest pain, arrhythmias, or palpitation. RESPIRATORY: Negative for shortness of breath, hemoptysis, cough, or sputum production. GI: See HPI for pertinent findings. : Negative for hematuria, urgency, frequency, polyuria, or dysuria. GYNc: Negative vaginal discharge. MUSCULOSKELETAL: History of chronic back pain. NEUROLOGIC: Negative for stroke or TIA. ENDOCRINE: Negative for thyroid problems. SKIN: Negative for rash or itching. PSYCHIATRIC: Negative history for depression and anxiety Past Medical History Past Medical History: Atrial Fibrillation, Coronary Artery Disease (CAD), Heart Failure, Diabetes Mellitus, GERD/Reflux, Hyperlipidemia, Hypertension, Myocardial Infarction (NM), Pneumonia, Renal Disease, Sleep Apnea/CPAP/BIPAP Additional Past Medical History / Comment(s): Morbid obesity, coronary artery disease, moderate degree of aortic stenosis, chronic atrial fibrillation paroxysmal, diabetes mellitus, hypertension, hyperlipidemia, 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 coli, chronic back pain, peripheral neuropathy, chronic anemia, fatty liver, obstructive sleep apnea maintained on BiPAP on outpatient basis, history of wounds/sore in the right foot that was healed, healed sacral decubitus ulceration and bedsores Last Myocardial Infarction Date:: 2015 History of Any Multi-Drug Resistant Organisms: MRSA Year Discovered:: 05/07/17 MDRO Source:: sputum Past Surgical History: Back Surgery, Cholecystectomy, Heart Catheterization, Heart Catheterization With Stent, Hysterectomy, Orthopedic Surgery Additional Past Surgical History / Comment(s): PCI with stents, several back surgeries-lumbar, bilateral carpal tunnel releases, bilateral cataract removals , port then fistula for hemodialysis. Past Anesthesia/Blood Transfusion Reactions: No Reported Reaction Additional Past Anesthesia/Blood Transfusion Reaction / Comm: Confusion that resolved. Date of Last Stent Placement:: 10/06/17 Past Psychological History: No Psychological Hx Reported Additional Psychological History / Comment(s): Pt's rachel resides with her. Pt is wheelchair bound. She can transfer herself into wheelchair and onto toilet. Daughter organizes her medications. She has oxygen in the house which she is currently using prn. Smoking Status: Never smoker Past Alcohol Use History: None Reported Additional Past Alcohol Use History / Comment(s): Patient had exposure to secondhand smoke with her . Past Drug Use History: None Reported - Past Family History Father Additional Family Medical History / Comment(s): Brain aneurysm ; age 72 Sister(s) Family Medical History: Hypertension Additional Family Medical History / Comment(s): Aortic stenosis; mitral valve disease Mother Family Medical History: AFIB, CVA/TIA, Hypertension Additional Family Medical History / Comment(s): mother age 83 Daughter(s) Family Medical History: Asthma Son(s) Family Medical History: Asthma Medications and Allergies Home Medications Medication Instructions Recorded Confirmed Type DULoxetine HCL [Cymbalta] 60 mg PO DAILY 08/04/14 11/23/17 History Fish Oil/Dha/Epa [Fish Oil 1,200 1 cap PO MOWEFR 08/04/14 11/23/17 History mg Fish Oil] Amiodarone HCl [Pacerone] 100 mg PO DAILY 11/22/15 11/23/17 History Apixaban [Eliquis] 2.5 mg PO BID 11/22/15 11/23/17 History Docusate [Colace] 100 mg PO BID 11/22/15 11/23/17 History Ezetimibe [Zetia] 10 mg PO DAILY 11/22/15 11/23/17 History Isosorbide Mononitrate ER [Imdur] 30 mg PO DAILY 11/22/15 11/23/17 History Gabapentin [Neurontin] 300 mg PO BID #60 capsule 11/27/15 11/23/17 Rx Cranberry 4200mg-Vitamin C 1 tab PO BID 12/25/16 11/23/17 History Omeprazole 20 mg PO DAILY 12/25/16 11/23/17 History Cholecalciferol (Vitamin D3) 2,000 unit PO DAILY 12/31/16 11/23/17 History [Vitamin D3] Furosemide [Lasix] 80 mg PO BID@0900,1600 tab 01/13/17 11/23/17 Rx Ferrous Sulfate [Iron (65 MG 325 mg PO DAILY 05/05/17 11/23/17 History Elemental)] Insulin Aspart [NovoLOG See Protocol SQ AC-TID 05/05/17 11/23/17 History (formulary)] Magnesium Oxide [Mag-Ox] 250 mg PO DAILY 05/05/17 11/23/17 History Sevelamer [Renvela] 800 mg PO TID-W/MEALS #90 tab 05/15/17 11/23/17 Rx Insulin Aspart [NovoLOG 12 unit SQ AC-BRKFST 08/16/17 11/23/17 History (formulary)] Clopidogrel [Plavix] 75 mg PO DAILY #30 tab 08/21/17 11/23/17 Rx Fexofenadine HCl [Amanda Allergy] 180 mg PO DAILY 09/27/17 11/23/17 History Insulin Aspart [NovoLOG] 14 unit SQ AC-LUNCH 09/27/17 11/23/17 History Insulin Aspart [NovoLOG] 14 unit SQ AC-SUPPER 09/27/17 11/23/17 History Aspirin 81 mg PO DAILY #90 chewable 10/07/17 11/23/17 Rx Diltiazem HCl 60 mg PO TID 10/23/17 11/23/17 History Midodrine HCl [ProAmatine] 5 mg PO DAILY PRN 10/23/17 11/23/17 History Acetaminophen Tab [Tylenol] 325 mg PO Q6H PRN 11/09/17 11/23/17 History Darbepoetin Aron [Aranesp] 40 mcg SQ Q7D syringe 11/15/17 11/23/17 Rx Insulin Glargine [Lantus] 35 unit SQ BID #0 11/15/17 11/23/17 Rx Metoprolol Succinate (ER) [Toprol 50 mg PO DAILY #30 tab 11/15/17 11/23/17 Rx XL] metroNIDAZOLE [Flagyl] 500 mg PO TID #21 tab 11/15/17 11/23/17 Rx predniSONE See Taper PO DAILY 11/23/17 11/23/17 History Allergies Allergy/AdvReac Type Severity Reaction Status Date / Time KUSHAL Inhibitors Allergy Swelling Verified 11/23/17 12:21 ARB-Angiotensin Receptor Allergy Swelling Verified 11/23/17 12:21 Antagonist cephalexin monohydrate Allergy Rash/Hives Verified 11/23/17 12:21 [From Keflex] propoxyphene HCl AdvReac Hallucinati Verified 11/23/17 12:21 [From Darvon] ons Elpeima-Osc-Jjq Reductase AdvReac Myalgia Verified 11/23/17 12:21 Inhibitor Physical Exam Vitals: Vital Signs Temp Pulse Resp BP Pulse Ox 11/24/17 08:00 98.4 F 77 17 157/49 98 11/24/17 07:29 99 11/24/17 07:00 79 16 163/59 100 11/24/17 06:00 87 16 151/80 98 11/24/17 05:00 89 24 134/68 99 11/24/17 04:00 98.1 F 88 17 121/54 99 11/24/17 03:00 84 14 146/57 99 11/24/17 02:00 84 15 131/40 99 11/24/17 01:00 83 16 146/44 99 11/24/17 00:10 87 17 143/52 100 11/24/17 00:00 88 18 143/52 99 11/23/17 23:45 88 18 100 18 23:30 90 14 155/47 100 11/23/17 23:15 90 17 177/54 100 11/23/17 23:00 89 16 119/51 97 18 22:45 86 16 144/60 11/23/17 22:30 86 17 117/47 95 11/23/17 22:00 84 16 103/50 100 18 21:30 83 15 112/52 100 11/23/17 21:00 83 16 101/44 99 18 20:30 81 14 142/53 100 11/23/17 20:28 98.5 F 81 20 142/58 100 11/23/17 20:00 98.0 F 82 15 161/52 99 11/23/17 19:01 98.1 F 81 20 143/55 99 11/23/17 19:00 81 13 143/55 100 11/23/17 18:45 81 14 140/48 100 11/23/17 18:30 80 15 142/47 100 11/23/17 18:27 98.1 F 79 15 142/47 100 11/23/17 18:17 98.2 F 70 20 150/58 100 11/23/17 18:15 79 11 L 145/53 100 11/23/17 18:11 98.2 F 70 20 150/58 100 11/23/17 18:10 98.2 F 79 20 150/58 100 18 18:00 79 11 L 150/58 100 11/23/17 17:45 80 22 135/51 100 11/23/17 17:40 80 16 143/57 100 18 17:30 79 17 143/57 100 18 17:20 79 12 147/59 100 18 17:10 79 13 138/41 100 11/23/17 17:00 81 11 L 138/41 100 18 16:50 80 10 L 147/62 100 18 16:43 98.3 F 147/62 11/23/17 16:27 98.0 F 82 18 168/70 100 18 15:57 98.2 F 83 18 156/65 97 11/23/17 15:47 98.3 F 82 18 156/68 11/23/17 15:44 98.3 F 83 18 158/68 11/23/17 15:00 80 18 140/65 99 11/23/17 12:31 76 24 131/59 96 11/23/17 12:03 97.4 F L Intake and Output 11/23/17 11/24/17 11/24/17 22:59 06:59 14:59 Intake Total 1240 240 Output Total 0 2000 0 Balance 1240 -1760 0 Intake: Oral 240 Blood Product 1240 Rc As-1 Unit 310 [id number] Rc As-1 Unit 310 [id number] Output: Urine 0 0 0 Other 2000 Other: Voiding Method Bedpan Bedpan Weight 93.8 kg 94.2 kg General appearance: The patient is alert, oriented, in no acute distress. HET: Head is normocephalic and atraumatic. Pupils are equal and reactive. Oropharynx is clear without lesions. Neck: Supple without lymphadenopathy. Trachea midline. Heart: S1 S2. Regular rate and rhythm. Lungs: No crackles or wheezes are heard. Abdomen: Soft, nontender, nondistended with bowel sounds. No peritoneal signs. No palpable organomegaly or masses. Extremities: Normal skin color and turgor. No cyanosis, rash, ulceration, clubbing, or edema. Radial and pedal pulses are 2/4 bilaterally. Neurological: No focal deficits. Strength and sensation are grossly intact. Results CBC & Chem 7: 11/24/17 04:44 11/24/17 02:20 Labs: Abnormal Lab Results - Last 24 Hours (Table) 11/23/17 11/23/17 11/23/17 Range/Units 12:25 12:25 12:44 WBC 17.0 H (3.8-10.6) k/uL RBC 1.88 L (3.80-5.40) m/uL Hgb 5.8 L* D (11.4-16.0) gm/dL Hct 18.6 L* (34.0-46.0) % RDW 18.8 H (11.5-15.5) % Neutrophils # 14.4 H (1.3-7.7) k/uL Sodium 136 L (137-145) mmol/L BUN 87 H* (7-17) mg/dL Creatinine 4.50 H (0.52-1.04) mg/dL Glucose (74-99) mg/dL POC Glucose (mg/dL) (75-99) mg/dL Calcium 8.3 L (8.4-10.2) mg/dL Phosphorus 4.9 H (2.5-4.5) mg/dL Total Protein 5.2 L (6.3-8.2) g/dL Albumin 2.8 L (3.5-5.0) g/dL Stool Occult Blood Positive H (Negative) Crossmatch 11/23/17 11/23/17 11/23/17 Range/Units 14:15 16:46 16:48 WBC (3.8-10.6) k/uL RBC (3.80-5.40) m/uL Hgb (11.4-16.0) gm/dL Hct (34.0-46.0) % RDW (11.5-15.5) % Neutrophils # (1.3-7.7) k/uL Sodium (137-145) mmol/L BUN (7-17) mg/dL Creatinine (0.52-1.04) mg/dL Glucose (74-99) mg/dL POC Glucose (mg/dL) 53 L 50 L (75-99) mg/dL Calcium (8.4-10.2) mg/dL Phosphorus (2.5-4.5) mg/dL Total Protein (6.3-8.2) g/dL Albumin (3.5-5.0) g/dL Stool Occult Blood (Negative) Crossmatch See Detail 11/23/17 11/23/17 11/23/17 Range/Units 21:42 22:00 22:15 WBC 14.1 H (3.8-10.6) k/uL RBC (3.80-5.40) m/uL Hgb (11.4-16.0) gm/dL Hct (34.0-46.0) % RDW 19.1 H (11.5-15.5) % Neutrophils # (1.3-7.7) k/uL Sodium (137-145) mmol/L BUN (7-17) mg/dL Creatinine (0.52-1.04) mg/dL Glucose (74-99) mg/dL POC Glucose (mg/dL) 66 L 103 H (75-99) mg/dL Calcium (8.4-10.2) mg/dL Phosphorus (2.5-4.5) mg/dL Total Protein (6.3-8.2) g/dL Albumin (3.5-5.0) g/dL Stool Occult Blood (Negative) Crossmatch 11/24/17 11/24/17 11/24/17 Range/Units 02:20 02:20 02:33 WBC 11.8 H (3.8-10.6) k/uL RBC 3.59 L (3.80-5.40) m/uL Hgb 10.6 L (11.4-16.0) gm/dL Hct 33.9 L (34.0-46.0) % RDW 20.1 H (11.5-15.5) % Neutrophils # 9.9 H (1.3-7.7) k/uL Sodium 134 L (137-145) mmol/L BUN 49 H (7-17) mg/dL Creatinine 2.90 H (0.52-1.04) mg/dL Glucose 64 L (74-99) mg/dL POC Glucose (mg/dL) 63 L (75-99) mg/dL Calcium (8.4-10.2) mg/dL Phosphorus (2.5-4.5) mg/dL Total Protein 5.3 L (6.3-8.2) g/dL Albumin 2.9 L (3.5-5.0) g/dL Stool Occult Blood (Negative) Crossmatch 11/24/17 11/24/17 Range/Units 02:55 04:44 WBC 11.2 H (3.8-10.6) k/uL RBC 3.40 L (3.80-5.40) m/uL Hgb 9.7 L (11.4-16.0) gm/dL Hct 30.9 L (34.0-46.0) % RDW 19.5 H (11.5-15.5) % Neutrophils # (1.3-7.7) k/uL Sodium (137-145) mmol/L BUN (7-17) mg/dL Creatinine (0.52-1.04) mg/dL Glucose (74-99) mg/dL POC Glucose (mg/dL) 159 H (75-99) mg/dL Calcium (8.4-10.2) mg/dL Phosphorus (2.5-4.5) mg/dL Total Protein (6.3-8.2) g/dL Albumin (3.5-5.0) g/dL Stool Occult Blood (Negative) Crossmatch Assessment and Plan Assessment: Impression: 1. Acute symptomatic blood loss anemia with underlying chronic anemia disease with reports of black-colored melanotic stool and right lower quadrant abdominal pain possible peptic ulcer disease possible small bowel source however colonic source cannot be entirely excluded recent hospitalization with CT findings suggestive of inflammatory changes in the cecum ascending colon possible ischemic. 2. End-stage renal disease hemodialysis Monday; hemodialysis scheduled for tomorrow afternoon. 3. Triple vessel coronary artery disease conservative measures on triple antiplatelet/anticoagulant therapy presently on hold. Recommendations/plan: 1. We'll proceed with EGD colonoscopy tomorrow possible small bowel capsule endoscopy. CBC monitoring. Protonix 40 mg IV twice daily. Clear liquid diet today. Continue to hold antiplatelet agents will advise after endoscopy is completed. The lactation specialist has discussed the risks, benefits and alternative therapies for the above-mentioned procedure and for both sedation/analgesia as well as necessary blood product administration, if indicated, as they pertain to this patient. The patient has indicated understanding and acceptance of the risks and procedures discussed. Thank you for this kind referral and the opportunity to participate in the care of your patient. This consultation was discussed with Dr. Robins. The impression and plan of care have been directed as dictated.
[2017-11-24] MEDS ORDERED: DESMOPRESSIN ACETATE 4 MCG/ML VIAL (MDV) IVPB ONE (09:15)
[2017-11-24] MEDS ORDERED: DESMOPRESSIN INJ 28 MCG in SODIUM CHLORIDE 0.9% 50 ML IVPB ONE (09:30)
--- NOTE | 2017-11-24 09:32 | P.CNPUL ---
History of Present Illness Consult date: 11/24/17 Reason for consult: other Chief complaint: Black tarry stools, acute blood loss anemia History of present illness: Mrs. Corrigan is a 72-year-old white female patient does well known to our service from multiple previous admissions. She was hospitalized recently for severe sepsis, and the source was not definitely identified, but was thought to be related to colitis. Patient was discharged home last week on 11/15/2017 in stable condition. Blood, and urine cultures from the last admission were all negative. She was treated with empiric antibiotics, she clinically improved. Yesterday patient presents the emergency department at 1159 for evaluation of increasing weakness, and 2 episodes of black tarry stools. Patient has history of paroxysmal atrial fibrillation, and she is on chronic anticoagulation in the form of Eliquis, she has coronary artery disease with previous stenting, and the patient is on Plavix and aspirin. He denied any nausea or vomiting, complained of some right lower quadrant tenderness to palpation. No previous history of gastric or peptic ulcers, her last EGD and colonoscopy were 2014, and they were reportedly within normal limits. The medical history includes moderate degree of aortic stenosis, diabetes mellitus type 2, hypertension, hyperlipidemia, end-stage renal disease, patient is on hemodialysis 3 times a week through an AV fistula in the left upper extremity, peripheral neuropathy, chronic anemia, obstructive sleep apnea on CPAP therapy with a pressure of 12 cm of water, morbid obesity, chronic back pain, previous episode of MRSA pneumonia. Patient denied any increasing shortness of breath, chest pain, no fever, no chills, no evidence of altered mentation. Patient's hemoglobin was 5.8 on admission, patient was transfused with 2 units of PRBC, WBC 17.0, B1 is 87, creatinine is 4.5. Patient had her hemodialysis treatment last night with removal of 4 L of fluid. This morning she is in the intensive care, she denies any distress, she is currently nothing by mouth, and awaiting to be evaluated by the GI service, no further episodes of bleeding. He is sinus rhythm on the monitor, with controlled rate. Denies any dyspnea, denies any chest pain. Currently on 2 L per nasal cannula with pulse ox of 99%, she is afebrile, not tachycardic. Hemodynamically stable. Her Eliquis, aspirin and Plavix are on hold for now. Today's hemoglobin is 9.7, platelet count is 163, white count is 11.2. Occult stool was positive. Review of Systems All systems: negative Constitutional: Denies chills, Denies fever Eyes: denies blurred vision, denies pain Ears, nose, mouth and throat: Denies headache, Denies sore throat Cardiovascular: Denies chest pain, Denies shortness of breath Respiratory: Denies cough Gastrointestinal: Reports melena, Denies abdominal pain, Denies diarrhea, Denies nausea, Denies vomiting Genitourinary: Denies dysuria, Denies hematuria Musculoskeletal: Denies myalgias Integumentary: Denies pruritus, Denies rash Neurological: Denies numbness, Denies weakness Psychiatric: Denies anxiety, Denies depression Endocrine: Denies fatigue, Denies weight change Past Medical History Past Medical History: Atrial Fibrillation, Coronary Artery Disease (CAD), Heart Failure, Diabetes Mellitus, GERD/Reflux, Hyperlipidemia, Hypertension, Myocardial Infarction ([place]), Pneumonia, Renal Disease, Sleep Apnea/CPAP/BIPAP Additional Past Medical History / Comment(s): Morbid obesity, coronary artery disease, moderate degree of aortic stenosis, chronic atrial fibrillation paroxysmal, diabetes mellitus, hypertension, hyperlipidemia, 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 coli, chronic back pain, peripheral neuropathy, chronic anemia, fatty liver, obstructive sleep apnea maintained on BiPAP on outpatient basis, history of wounds/sore in the right foot that was healed, healed sacral decubitus ulceration and bedsores Last Myocardial Infarction Date:: 2015 History of Any Multi-Drug Resistant Organisms: MRSA Date of last positivie culture/infection: 05/07/17 MDRO Source:: sputum Past Surgical History: Back Surgery, Cholecystectomy, Heart Catheterization, Heart Catheterization With Stent, Hysterectomy, Orthopedic Surgery Additional Past Surgical History / Comment(s): PCI with stents, several back surgeries-lumbar, bilateral carpal tunnel releases, bilateral cataract removals , port then fistula for hemodialysis. Past Anesthesia/Blood Transfusion Reactions: No Reported Reaction Additional Past Anesthesia/Blood Transfusion Reaction / Comment(s): Confusion that resolved. Date of Last Stent Placement:: 10/06/17 Past Psychological History: No Psychological Hx Reported Additional Psychological History / Comment(s): Pt's rachel resides with her. Pt is wheelchair bound. She can transfer herself into wheelchair and onto toilet. Daughter organizes her medications. She has oxygen in the house which she is currently using prn. Smoking Status: Never smoker Past Alcohol Use History: None Reported Additional Past Alcohol Use History / Comment(s): Patient had exposure to secondhand smoke with her . Past Drug Use History: None Reported - Past Family History Father Additional Family Medical History / Comment(s): Brain aneurysm ; age 72 Sister(s) Family Medical History: Hypertension Additional Family Medical History / Comment(s): Aortic stenosis; mitral valve disease Mother Family Medical History: AFIB, CVA/TIA, Hypertension Additional Family Medical History / Comment(s): mother age 83 Daughter(s) Family Medical History: Asthma Son(s) Family Medical History: Asthma Medications and Allergies Home Medications Medication Instructions Recorded Confirmed Type DULoxetine HCL [Cymbalta] 60 mg PO DAILY 08/04/14 11/23/17 History Fish Oil/Dha/Epa [Fish Oil 1,200 1 cap PO MOWEFR 08/04/14 11/23/17 History mg Fish Oil] Amiodarone HCl [Pacerone] 100 mg PO DAILY 11/22/15 11/23/17 History Apixaban [Eliquis] 2.5 mg PO BID 11/22/15 11/23/17 History Docusate [Colace] 100 mg PO BID 11/22/15 11/23/17 History Ezetimibe [Zetia] 10 mg PO DAILY 11/22/15 11/23/17 History Isosorbide Mononitrate ER [Imdur] 30 mg PO DAILY 11/22/15 11/23/17 History Gabapentin [Neurontin] 300 mg PO BID #60 capsule 11/27/15 11/23/17 Rx Cranberry 4200mg-Vitamin C 1 tab PO BID 12/25/16 11/23/17 History Omeprazole 20 mg PO DAILY 12/25/16 11/23/17 History Cholecalciferol (Vitamin D3) 2,000 unit PO DAILY 12/31/16 11/23/17 History [Vitamin D3] Furosemide [Lasix] 80 mg PO BID@0900,1600 tab 01/13/17 11/23/17 Rx Ferrous Sulfate [Iron (65 MG 325 mg PO DAILY 05/05/17 11/23/17 History Elemental)] Insulin Aspart [NovoLOG See Protocol SQ AC-TID 05/05/17 11/23/17 History (formulary)] Magnesium Oxide [Mag-Ox] 250 mg PO DAILY 05/05/17 11/23/17 History Sevelamer [Renvela] 800 mg PO TID-W/MEALS #90 tab 05/15/17 11/23/17 Rx Insulin Aspart [NovoLOG 12 unit SQ AC-BRKFST 08/16/17 11/23/17 History (formulary)] Clopidogrel [Plavix] 75 mg PO DAILY #30 tab 08/21/17 11/23/17 Rx Fexofenadine HCl [Amanda Allergy] 180 mg PO DAILY 09/27/17 11/23/17 History Insulin Aspart [NovoLOG] 14 unit SQ AC-LUNCH 09/27/17 11/23/17 History Insulin Aspart [NovoLOG] 14 unit SQ AC-SUPPER 09/27/17 11/23/17 History Aspirin 81 mg PO DAILY #90 chewable 10/07/17 11/23/17 Rx Diltiazem HCl 60 mg PO TID 10/23/17 11/23/17 History Midodrine HCl [ProAmatine] 5 mg PO DAILY PRN 10/23/17 11/23/17 History Acetaminophen Tab [Tylenol] 325 mg PO Q6H PRN 11/09/17 11/23/17 History Darbepoetin Aron [Aranesp] 40 mcg SQ Q7D syringe 11/15/17 11/23/17 Rx Insulin Glargine [Lantus] 35 unit SQ BID #0 11/15/17 11/23/17 Rx Metoprolol Succinate (ER) [Toprol 50 mg PO DAILY #30 tab 11/15/17 11/23/17 Rx XL] metroNIDAZOLE [Flagyl] 500 mg PO TID #21 tab 11/15/17 11/23/17 Rx predniSONE See Taper PO DAILY 11/23/17 11/23/17 History Allergies Allergy/AdvReac Type Severity Reaction Status Date / Time KUSHAL Inhibitors Allergy Swelling Verified 11/23/17 12:21 ARB-Angiotensin Receptor Allergy Swelling Verified 11/23/17 12:21 Antagonist cephalexin monohydrate Allergy Rash/Hives Verified 11/23/17 12:21 [From Keflex] propoxyphene HCl AdvReac Hallucinati Verified 11/23/17 12:21 [From Darvon] ons Csctgup-Tvl-Xqu Reductase AdvReac Myalgia Verified 11/23/17 12:21 Inhibitor Physical Exam Vitals: Vital Signs Temp Pulse Resp BP Pulse Ox 11/24/17 08:00 98.4 F 77 17 157/49 98 11/24/17 07:29 99 11/24/17 07:00 79 16 163/59 100 11/24/17 06:00 87 16 151/80 98 11/24/17 05:00 89 24 134/68 99 11/24/17 04:00 98.1 F 88 17 121/54 99 11/24/17 03:00 84 14 146/57 99 11/24/17 02:00 84 15 131/40 99 11/24/17 01:00 83 16 146/44 99 11/24/17 00:10 87 17 143/52 100 11/24/17 00:00 88 18 143/52 99 11/23/17 23:45 88 18 100 11/23/17 23:30 90 14 155/47 100 11/23/17 23:15 90 17 177/54 100 11/23/17 23:00 89 16 119/51 97 11/23/17 22:45 86 16 144/60 11/23/17 22:30 86 17 117/47 95 11/23/17 22:00 84 16 103/50 100 11/23/17 21:30 83 15 112/52 100 11/23/17 21:00 83 16 101/44 99 11/23/17 20:30 81 14 142/53 100 11/23/17 20:28 98.5 F 81 20 142/58 100 11/23/17 20:00 98.0 F 82 15 161/52 99 11/23/17 19:01 98.1 F 81 20 143/55 99 11/23/17 19:00 81 13 143/55 100 11/23/17 18:45 81 14 140/48 100 11/23/17 18:30 80 15 142/47 100 11/23/17 18:27 98.1 F 79 15 142/47 100 11/23/17 18:17 98.2 F 70 20 150/58 100 11/23/17 18:15 79 11 L 145/53 100 11/23/17 18:11 98.2 F 70 20 150/58 100 11/23/17 18:10 98.2 F 79 20 150/58 100 11/23/17 18:00 79 11 L 150/58 100 11/23/17 17:45 80 22 135/51 100 11/23/17 17:40 80 16 143/57 100 11/23/17 17:30 79 17 143/57 100 11/23/17 17:20 79 12 147/59 100 11/23/17 17:10 79 13 138/41 100 11/23/17 17:00 81 11 L 138/41 100 11/23/17 16:50 80 10 L 147/62 100 11/23/17 16:43 98.3 F 147/62 11/23/17 16:27 98.0 F 82 18 168/70 100 11/23/17 15:57 98.2 F 83 18 156/65 97 11/23/17 15:47 98.3 F 82 18 156/68 11/23/17 15:44 98.3 F 83 18 158/68 11/23/17 15:00 80 18 140/65 99 11/23/17 12:31 76 24 131/59 96 11/23/17 12:03 97.4 F L Intake and Output 11/23/17 11/24/17 11/24/17 22:59 06:59 14:59 Intake Total 1240 240 Output Total 0 2000 0 Balance 1240 -1760 0 Intake: Oral 240 Blood Product 1240 As-1 Unit 310 [id number] As-1 Unit 310 [id number] Output: Urine 0 0 0 Other 1999 Other: Voiding Method Bedpan Bedpan Weight 93.8 kg 94.2 kg GENERAL EXAM: Alert, pleasant, obese white female comfortable in no apparent distress. HEAD: Normocephalic/atraumatic. EYES: Normal reaction of pupils, equal size. Conjunctiva pink, sclera white. NOSE: Clear with pink turbinates. THROAT: No erythema or exudates. NECK: No masses, no JVD, no thyroid enlargement, no adenopathy. CHEST: No chest wall deformity. Symmetrical expansion. LUNGS: Equal air entry with no crackles, wheeze, rhonchi or dullness. CVS: Regular rate and rhythm, normal S1 and S2, no gallops, no murmurs, no rubs ABDOMEN: Soft, slight tenderness on palpation of the right lower quadrant. No hepatosplenomegaly, normal bowel sounds, no guarding or rigidity. EXTREMITIES: No clubbing, no edema, no cyanosis, 2+ pulses and upper and lower extremities. MUSCULOSKELETAL: Muscle strength and tone normal. SPINE: No scoliosis or deformity SKIN: No rashes CENTRAL NERVOUS SYSTEM: Alert and oriented -3. No focal deficits, tone is normal in all 4 extremities. PSYCHIATRIC: Alert and oriented -3. Appropriate affect. Intact judgment and insight. Results - Laboratory Findings CBC and BMP: 11/24/17 04:44 11/24/17 02:20 PT/INR, D-dimer PT 10.6 sec (9.0-12.0) 11/23/17 12:25 INR 1.1 (<1.2) 11/23/17 12:25 Abnormal lab findings: Abnormal Labs 11/23/17 11/23/17 11/23/17 12:25 12:25 12:44 WBC 17.0 H RBC 1.88 L Hgb 5.8 L* D Hct 18.6 L* RDW 18.8 H Neutrophils # 14.4 H Sodium 136 L BUN 87 H* Creatinine 4.50 H Glucose POC Glucose (mg/dL) Calcium 8.3 L Phosphorus 4.9 H Total Protein 5.2 L Albumin 2.8 L Stool Occult Blood Positive H Crossmatch 11/23/17 11/23/17 11/23/17 14:15 16:46 16:48 WBC RBC Hgb Hct RDW Neutrophils # Sodium BUN Creatinine Glucose POC Glucose (mg/dL) 53 L 50 L Calcium Phosphorus Total Protein Albumin Stool Occult Blood Crossmatch See Detail 11/23/17 11/23/17 11/23/17 21:42 22:00 22:15 WBC 14.1 H RBC Hgb Hct RDW 19.1 H Neutrophils # Sodium BUN Creatinine Glucose POC Glucose (mg/dL) 66 L 103 H Calcium Phosphorus Total Protein Albumin Stool Occult Blood Crossmatch 11/24/17 11/24/17 11/24/17 02:20 02:20 02:33 WBC 11.8 H RBC 3.59 L Hgb 10.6 L Hct 33.9 L RDW 20.1 H Neutrophils # 9.9 H Sodium 134 L BUN 49 H Creatinine 2.90 H Glucose 64 L POC Glucose (mg/dL) 63 L Calcium Phosphorus Total Protein 5.3 L Albumin 2.9 L Stool Occult Blood Crossmatch 11/24/17 11/24/17 02:55 04:44 WBC 11.2 H RBC 3.40 L Hgb 9.7 L Hct 30.9 L RDW 19.5 H Neutrophils # Sodium BUN Creatinine Glucose POC Glucose (mg/dL) 159 H Calcium Phosphorus Total Protein Albumin Stool Occult Blood Crossmatch - Diagnostic Findings Chest x-ray: report reviewed, image reviewed Additional studies: EKG reviewed Assessment and Plan Plan: Assessment: #1. Acute blood loss anemia, secondary to GI bleeding, patient presented with the complaints of black tarry stools. #2. Leukocytosis, possibly reactive #3. Chronic anemia #4. Recent hospitalization for sepsis, and the source was not identified, and the patient was empirically treated with antibiotics, improved, and discharged on 11/15/2017. Urine and blood cultures were negative. The source to be possibly related to colitis #5. End-stage renal disease, on hemodialysis #6. Paroxysmal atrial fibrillation, on chronic anticoagulation a form of Eliquis #7. Coronary artery disease with previous stenting, on aspirin and Plavix those of currently on hold #8. Hypertension, hyperlipidemia #9. Diabetes mellitus type 2, with peripheral neuropathy #10. Obstructive sleep apnea on CPAP therapy with pressure of 12 cm of water #11. Moderate degree of aortic stenosis #12. Obesity Plan: Patient remains hemodynamically stable, has not had any more black tarry stool since admission. She has been transfused with 2 units of packed red blood cells , trace hemoglobin is 9.7. No dyspnea, no chest pain. She is being evaluated by the GI service for possible endoscopic evaluation today. Remains nothing by mouth, from pulmonary/critical care standpoint patient is stable to be transferred to general medical floor today. We'll continue to follow I performed a history & physical examination of the patient and discussed their management with my nurse practitioner, Pinky Salas. I reviewed the nurse practitioner's note and agree with the documented findings and plan of care. Lung sounds are clear. The findings and the impression was discussed with the patient. I attest to the documentation by the nurse practitioner. Time with Patient: Greater than 30
[2017-11-24] MEDS: CRANBERRY W/ VIT C PO SCH ×2 (09:34→20:24)
[2017-11-24] MEDS: DOCUSATE 100 MG CAP PO SCH ×2 (09:39→20:08)
[2017-11-24] MEDS: CHOLECALCIFEROL 1,000 UNIT TAB PO SCH (09:39)
[2017-11-24] MEDS: PANTOPRAZOLE 40 MG/10 ML VIAL IV SCH ×2 (09:39→20:08)
[2017-11-24] MEDS: MAGNESIUM OXIDE 400 MG TAB PO SCH (09:40)
[2017-11-24] MEDS: ISOSORBIDE MONONITRATE ER 30 MG TAB.ER.24H PO SCH (09:40)
[2017-11-24] MEDS: EZETIMIBE 10 MG TAB PO SCH (09:40)
[2017-11-24] MEDS: AMIODARONE 100 MG TAB PO SCH (09:40)
[2017-11-24] MEDS: DULoxetine HCL 60 MG CAPSULE.DR PO SCH (09:40)
[2017-11-24] MEDS: LORATADINE 10 MG TAB PO SCH (09:40)
[2017-11-24] MEDS: DILTIAZEM ORAL 60 MG TAB PO SCH ×3 (09:40→20:08)
[2017-11-24] MEDS: FUROSEMIDE 80 MG TAB PO SCH ×2 (09:40→15:15)
[2017-11-24] MEDS: METOPROLOL SUCCINATE (ER) 50 MG TAB.ER.24H PO SCH (09:40)
[2017-11-24] MEDS: GABAPENTIN 300 MG CAP PO SCH ×2 (09:40→20:08)
[2017-11-24] MEDS: FERROUS SULFATE 325 MG TAB PO SCH (09:41)
[2017-11-24] MEDS: SEVELAMER 800 MG TAB PO SCH ×3 (09:41→15:16)
--- NOTE | 2017-11-24 09:44 | P.HPIM ---
History of Present Illness H&P Date: 11/24/17 Chief Complaint: Weakness This is a 72-year-old female patient of Dr. Garcia with past medical history of paroxysmal atrial fibrillation, coronary artery disease status post myocardial infarction, has history of triple-vessel disease but was considered high risk for bypass, status post LAD stent in July 2017 and left circumflex in August 2017, chronic diastolic heart failure, diabetes mellitus type 2, hyperlipidemia, hypertension and hypertensive cardiovascular disease, end- stage renal disease on hemodialysis Monday and Monday, peripheral neuropathy. Patient was recently hospitalized at [facility] and discharged on November 15 and treated for sepsis secondary to colitis, possible ischemic colitis, GI bleed with anemia. She was discharged on Flagyl and continued on Plavix, eliquis and baby aspirin. Patient has had significant weakness for the past 2 days with dark stools. She came into [facility] emergency center found to have hemoglobin of 5.8. She is status post 2 units of packed RBCs with hemoglobin of 9.7. Occult stool was positive. Chest x-ray showed no acute cardio pulmonary disease. Patient has been admitted into intensive care unit. She has been seen by Dr. Manrique and underwent hemodialysis yesterday evening. Patient seen by Dr. Hernandez and currently aspirin, Plavix and eliquis are on hold. Plavix will need to be resumed as soon as possible once cleared by GI. Patient has been seen by gastroenterology with plan for conservative management. Dr. Lee is on consult for intensive care management and has cleared her for transfer to [facility] floor. Review of Systems All systems: negative Constitutional: Reports fatigue, Reports lethargy, Reports malaise, Reports poor appetite, Reports weakness, Denies chills, Denies fever Eyes: denies blurred vision, denies pain Ears, nose, mouth and throat: Denies dysphagia, Denies epistaxis, Denies headache, Denies mouth pain, Denies sore throat Cardiovascular: Denies chest pain, Denies decreased exercise tolerance, Denies dyspnea on exertion, Denies leg edema, Denies lightheadedness, Denies shortness of breath, Denies syncope Respiratory: Reports home oxygen, Denies cough, Denies cough with sputum, Denies dyspnea, Denies excessive sputum, Denies hemoptysis, Denies wheezing Gastrointestinal: Reports loss of appetite, Reports melena, Denies abdominal pain, Denies diarrhea, Denies nausea, Denies vomiting Genitourinary: Denies dysuria, Denies hematuria Musculoskeletal: Denies myalgias Integumentary: Denies pruritus, Denies rash Neurological: Denies numbness, Denies weakness Psychiatric: Denies anxiety, Denies depression Endocrine: Denies fatigue, Denies weight change Past Medical History Past Medical History: Atrial Fibrillation, Coronary Artery Disease (CAD), Heart Failure, Diabetes Mellitus, GERD/Reflux, Hyperlipidemia, Hypertension, Myocardial Infarction (ME), Pneumonia, Renal Disease, Sleep Apnea/CPAP/BIPAP Additional Past Medical History / Comment(s): Morbid obesity, coronary artery disease, moderate degree of aortic stenosis, chronic atrial fibrillation paroxysmal, diabetes mellitus, hypertension, hyperlipidemia, 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 coli, chronic back pain, peripheral neuropathy, chronic anemia, fatty liver, obstructive sleep apnea maintained on BiPAP on outpatient basis, history of wounds/sore in the right foot that was healed, healed sacral decubitus ulceration and bedsores Last Myocardial Infarction Date:: 2015 History of Any Multi-Drug Resistant Organisms: MRSA Date of last positivie culture/infection: 05/07/17 MDRO Source:: sputum Past Surgical History: Back Surgery, Cholecystectomy, Heart Catheterization, Heart Catheterization With Stent, Hysterectomy, Orthopedic Surgery Additional Past Surgical History / Comment(s): PCI with stents, several back surgeries-lumbar, bilateral carpal tunnel releases, bilateral cataract removals , port then fistula for hemodialysis. Past Anesthesia/Blood Transfusion Reactions: No Reported Reaction Additional Past Anesthesia/Blood Transfusion Reaction / Comment(s): Confusion that resolved. Date of Last Stent Placement:: 10/06/17 Past Psychological History: No Psychological Hx Reported Additional Psychological History / Comment(s): Pt's rachel resides with her. Pt is wheelchair bound. She can transfer herself into wheelchair and onto toilet. Daughter organizes her medications. She has oxygen in the house which she is currently using prn. Smoking Status: Never smoker Past Alcohol Use History: None Reported Additional Past Alcohol Use History / Comment(s): Patient had exposure to secondhand smoke with her . Past Drug Use History: None Reported - Past Family History Father Additional Family Medical History / Comment(s): Brain aneurysm ; age 72 Sister(s) Family Medical History: Hypertension Additional Family Medical History / Comment(s): Aortic stenosis; mitral valve disease Mother Family Medical History: AFIB, CVA/TIA, Hypertension Additional Family Medical History / Comment(s): mother age 83 Daughter(s) Family Medical History: Asthma Son(s) Family Medical History: Asthma Medications and Allergies Home Medications Medication Instructions Recorded Confirmed Type DULoxetine HCL [Cymbalta] 60 mg PO DAILY 08/04/14 11/23/17 History Fish Oil/Dha/Epa [Fish Oil 1,200 1 cap PO MOWEFR 08/04/14 11/23/17 History mg Fish Oil] Amiodarone HCl [Pacerone] 100 mg PO DAILY 11/22/15 11/23/17 History Apixaban [Eliquis] 2.5 mg PO BID 11/22/15 11/23/17 History Docusate [Colace] 100 mg PO BID 11/22/15 11/23/17 History Ezetimibe [Zetia] 10 mg PO DAILY 11/22/15 11/23/17 History Isosorbide Mononitrate ER [Imdur] 30 mg PO DAILY 11/22/15 11/23/17 History Gabapentin [Neurontin] 300 mg PO BID #60 capsule 11/27/15 11/23/17 Rx Cranberry 4200mg-Vitamin C 1 tab PO BID 12/25/16 11/23/17 History Omeprazole 20 mg PO DAILY 12/25/16 11/23/17 History Cholecalciferol (Vitamin D3) 2,000 unit PO DAILY 12/31/16 11/23/17 History [Vitamin D3] Furosemide [Lasix] 80 mg PO BID@0900,1600 tab 01/13/17 11/23/17 Rx Ferrous Sulfate [Iron (65 MG 325 mg PO DAILY 05/05/17 11/23/17 History Elemental)] Insulin Aspart [NovoLOG See Protocol SQ AC-TID 05/05/17 11/23/17 History (formulary)] Magnesium Oxide [Mag-Ox] 250 mg PO DAILY 05/05/17 11/23/17 History Sevelamer [Renvela] 800 mg PO TID-W/MEALS #90 tab 05/15/17 11/23/17 Rx Insulin Aspart [NovoLOG 12 unit SQ AC-BRKFST 08/16/17 11/23/17 History (formulary)] Clopidogrel [Plavix] 75 mg PO DAILY #30 tab 08/21/17 11/23/17 Rx Fexofenadine HCl [Amanda Allergy] 180 mg PO DAILY 09/27/17 11/23/17 History Insulin Aspart [NovoLOG] 14 unit SQ AC-LUNCH 09/27/17 11/23/17 History Insulin Aspart [NovoLOG] 14 unit SQ AC-SUPPER 09/27/17 11/23/17 History Aspirin 81 mg PO DAILY #90 chewable 10/07/17 11/23/17 Rx Diltiazem HCl 60 mg PO TID 10/23/17 11/23/17 History Midodrine HCl [ProAmatine] 5 mg PO DAILY PRN 10/23/17 11/23/17 History Acetaminophen Tab [Tylenol] 325 mg PO Q6H PRN 11/09/17 11/23/17 History Darbepoetin Aron [Aranesp] 40 mcg SQ Q7D syringe 11/15/17 11/23/17 Rx Insulin Glargine [Lantus] 35 unit SQ BID #0 11/15/17 11/23/17 Rx Metoprolol Succinate (ER) [Toprol 50 mg PO DAILY #30 tab 11/15/17 11/23/17 Rx XL] metroNIDAZOLE [Flagyl] 500 mg PO TID #21 tab 11/15/17 11/23/17 Rx predniSONE See Taper PO DAILY 11/23/17 11/23/17 History Allergies Allergy/AdvReac Type Severity Reaction Status Date / Time KUSHAL Inhibitors Allergy Swelling Verified 11/23/17 12:21 ARB-Angiotensin Receptor Allergy Swelling Verified 11/23/17 12:21 Antagonist cephalexin monohydrate Allergy Rash/Hives Verified 11/23/17 12:21 [From Keflex] propoxyphene HCl AdvReac Hallucinati Verified 11/23/17 12:21 [From Darvon] ons [id number] Reductase AdvReac Myalgia Verified 11/23/17 12:21 Inhibitor Physical Exam Vitals: Vital Signs Temp Pulse Resp BP Pulse Ox 11/24/17 08:00 98.4 F 77 17 157/49 98 11/24/17 07:29 99 11/24/17 07:00 79 16 163/59 100 11/24/17 06:00 87 16 151/80 98 11/24/17 05:00 89 24 134/68 99 11/24/17 04:00 98.1 F 88 17 121/54 99 11/24/17 03:00 84 14 146/57 99 11/24/17 02:00 84 15 131/40 99 11/24/17 01:00 83 16 146/44 99 11/24/17 00:10 87 17 143/52 100 11/24/17 00:00 88 18 143/52 99 11/23/17 23:45 88 18 100 11/23/17 23:30 90 14 155/47 100 11/23/17 23:15 90 17 177/54 100 11/23/17 23:00 89 16 119/51 97 11/23/17 22:45 86 16 144/60 11/23/17 22:30 86 17 117/47 95 11/23/17 22:00 84 16 103/50 100 11/23/17 21:30 83 15 112/52 100 11/23/17 21:00 83 16 101/44 99 11/23/17 20:30 81 14 142/53 100 11/23/17 20:28 98.5 F 81 20 142/58 100 11/23/17 20:00 98.0 F 82 15 161/52 99 11/23/17 19:01 98.1 F 81 20 143/55 99 11/23/17 19:00 81 13 143/55 100 11/23/17 18:45 81 14 140/48 100 11/23/17 18:30 80 15 142/47 100 11/23/17 18:27 98.1 F 79 15 142/47 100 11/23/17 18:17 98.2 F 70 20 150/58 100 11/23/17 18:15 79 11 L 145/53 100 11/23/17 18:11 98.2 F 70 20 150/58 100 11/23/17 18:10 98.2 F 79 20 150/58 100 11/23/17 18:00 79 11 L 150/58 100 11/23/17 17:45 80 22 135/51 100 11/23/17 17:40 80 16 143/57 100 11/23/17 17:30 79 17 143/57 100 11/23/17 17:20 79 12 147/59 100 11/23/17 17:10 79 13 138/41 100 11/23/17 17:00 81 11 L 138/41 100 11/23/17 16:50 80 10 L 147/62 100 11/23/17 16:43 98.3 F 147/62 11/23/17 16:27 98.0 F 82 18 168/70 100 11/23/17 15:57 98.2 F 83 18 156/65 97 11/23/17 15:47 98.3 F 82 18 156/68 11/23/17 15:44 98.3 F 83 18 158/68 11/23/17 15:00 80 18 140/65 99 11/23/17 12:31 76 24 131/59 96 11/23/17 12:03 97.4 F L Intake and Output 11/23/17 11/24/17 11/24/17 22:59 06:59 14:59 Intake Total 1240 240 Output Total 0 1999 0 Balance 1240 -1760 0 Intake: Oral 240 Blood Product 1240 Rc As-1 Unit 310 [id number] Rc As-1 Unit 310 [id number] Output: Urine 0 0 0 Other 1999 Other: Voiding Method Bedpan Bedpan Weight 93.8 kg 94.2 kg - Constitutional General appearance: mild distress, obese - EENT Eyes: anicteric sclerae, EOMI, PERRLA, no ptosis, no scleral icterus, normal appearance ENT: hearing grossly normal, normal oropharynx Ears: bilateral: normal - Neck Neck: no lymphadenopathy, normal ROM, no rigidity Carotids: bilateral: upstroke normal - Respiratory Respiratory: bilateral: diminished, prolonged expiration, negative: dullness, rales, rhonchi, wheezing - Cardiovascular Rhythm: regular Heart sounds: normal: S1, S2 Abnormal Heart Sounds: systolic murmur - Gastrointestinal General gastrointestinal: normal bowel sounds, soft, no splenomegaly, no tenderness, no umbilical hernia, no ventral hernia - Integumentary Integumentary: normal, normal turgor - Neurologic Neurologic: CNII-XII intact - Musculoskeletal Musculoskeletal: generalized weakness - Psychiatric Psychiatric: A&O x's 3, appropriate affect, intact judgment & insight Results CBC & Chem 7: 11/24/17 04:44 11/24/17 02:20 Labs: Abnormal Lab Results - Last 24 Hours (Table) 11/23/17 11/23/17 11/23/17 Range/Units 12:25 12:25 12:44 WBC 17.0 H (3.8-10.6) k/uL RBC 1.88 L (3.80-5.40) m/uL Hgb 5.8 L* D (11.4-16.0) gm/dL Hct 18.6 L* (34.0-46.0) % RDW 18.8 H (11.5-15.5) % Neutrophils # 14.4 H (1.3-7.7) k/uL Sodium 136 L (137-145) mmol/L BUN 87 H* (7-17) mg/dL Creatinine 4.50 H (0.52-1.04) mg/dL Glucose (74-99) mg/dL POC Glucose (mg/dL) (75-99) mg/dL Calcium 8.3 L (8.4-10.2) mg/dL Phosphorus 4.9 H (2.5-4.5) mg/dL Total Protein 5.2 L (6.3-8.2) g/dL Albumin 2.8 L (3.5-5.0) g/dL Stool Occult Blood Positive H (Negative) Crossmatch 11/23/17 11/23/17 11/23/17 Range/Units 14:15 16:46 16:48 WBC (3.8-10.6) k/uL RBC (3.80-5.40) m/uL Hgb (11.4-16.0) gm/dL Hct (34.0-46.0) % RDW (11.5-15.5) % Neutrophils # (1.3-7.7) k/uL Sodium (137-145) mmol/L BUN (7-17) mg/dL Creatinine (0.52-1.04) mg/dL Glucose (74-99) mg/dL POC Glucose (mg/dL) 53 L 50 L (75-99) mg/dL Calcium (8.4-10.2) mg/dL Phosphorus (2.5-4.5) mg/dL Total Protein (6.3-8.2) g/dL Albumin (3.5-5.0) g/dL Stool Occult Blood (Negative) Crossmatch See Detail 11/23/17 11/23/17 11/23/17 Range/Units 21:42 22:00 22:15 WBC 14.1 H (3.8-10.6) k/uL RBC (3.80-5.40) m/uL Hgb (11.4-16.0) gm/dL Hct (34.0-46.0) % RDW 19.1 H (11.5-15.5) % Neutrophils # (1.3-7.7) k/uL Sodium (137-145) mmol/L BUN (7-17) mg/dL Creatinine (0.52-1.04) mg/dL Glucose (74-99) mg/dL POC Glucose (mg/dL) 66 L 103 H (75-99) mg/dL Calcium (8.4-10.2) mg/dL Phosphorus (2.5-4.5) mg/dL Total Protein (6.3-8.2) g/dL Albumin (3.5-5.0) g/dL Stool Occult Blood (Negative) Crossmatch 11/24/17 11/24/17 11/24/17 Range/Units 02:20 02:20 02:33 WBC 11.8 H (3.8-10.6) k/uL RBC 3.59 L (3.80-5.40) m/uL Hgb 10.6 L (11.4-16.0) gm/dL Hct 33.9 L (34.0-46.0) % RDW 20.1 H (11.5-15.5) % Neutrophils # 9.9 H (1.3-7.7) k/uL Sodium 134 L (137-145) mmol/L BUN 49 H (7-17) mg/dL Creatinine 2.90 H (0.52-1.04) mg/dL Glucose 64 L (74-99) mg/dL POC Glucose (mg/dL) 63 L (75-99) mg/dL Calcium (8.4-10.2) mg/dL Phosphorus (2.5-4.5) mg/dL Total Protein 5.3 L (6.3-8.2) g/dL Albumin 2.9 L (3.5-5.0) g/dL Stool Occult Blood (Negative) Crossmatch 11/24/17 11/24/17 Range/Units 02:55 04:44 WBC 11.2 H (3.8-10.6) k/uL RBC 3.40 L (3.80-5.40) m/uL Hgb 9.7 L (11.4-16.0) gm/dL Hct 30.9 L (34.0-46.0) % RDW 19.5 H (11.5-15.5) % Neutrophils # (1.3-7.7) k/uL Sodium (137-145) mmol/L BUN (7-17) mg/dL Creatinine (0.52-1.04) mg/dL Glucose (74-99) mg/dL POC Glucose (mg/dL) 159 H (75-99) mg/dL Calcium (8.4-10.2) mg/dL Phosphorus (2.5-4.5) mg/dL Total Protein (6.3-8.2) g/dL Albumin (3.5-5.0) g/dL Stool Occult Blood (Negative) Crossmatch Thrombosis Risk Factor Assmnt - DVT/VTE Prophylaxis DVT/VTE Prophylaxis: Mechanical Prophylaxis ordered - Choose All That Apply Each Factor Represents 1 point: Abnormal pulmonary function (COPD), Obesity ( BMI >25) Other Risk Factors: Yes Each Risk Factor Represents 2 Points: Age 61-74 years, Patient confined to bed Other congenital or acquired thrombophilia - If yes, enter type in comment: No Thrombosis Risk Factor Assessment Total Risk Factor Score: 6 Thrombosis Risk Factor Assessment Level: High Risk Assessment and Plan Plan: 1. Acute GI bleed with acute blood loss anemia on top of anemia of chronic disease. Patient is status post transfusion 2 units packed RBCs. Continue to monitor hemoglobin closely. Patient is in the intensive care unit. Consult in place with GI, nephrology. She has been started on desmopressin. Continue Aranesp, ferrous sulfate, Protonix IV twice daily. 2. Recent admission for sepsis secondary to colitis of the cecum and ascending colon, possible ischemic colitis. 3. Chronic diastolic heart failure. Continue hemodialysis per nephrology. Continue home dose of Lasix at 80 mg twice daily. 4. History of moderate aortic stenosis. Continue Imdur 30 mg, Toprol 50 mg. 5. End-stage renal disease on hemodialysis Monday and Monday. Continue sevelamer 800 mg 3 times a day with meals 6. Hypertension cardiovascular disease. Continue amiodarone, Cardizem, Imdur, Toprol-XL. 5. Paroxysmal atrial fibrillation. Continue amiodarone 100 mg once daily, Cardizem 60 mg 3 times a day. Eliquis is on hold. 6. History of myocardial infarction and coronary artery disease status post LAD stent in July 2017 and left circumflex in August 2017. Continue Toprol-XL 50 mg once daily, hold aspirin and Plavix for concern of GI bleed. Cardiology consult appreciated. 7. Diabetes mellitus type 2, insulin requiring. Continue insulin sliding scale. 8. GERD continue Protonix. 9. History of hyperlipidemia intolerant of statins. 10. Diabetic peripheral neuropathy continue gabapentin 300 mg twice daily. 11. Recurrent depression. Continue Cymbalta 60 mg orally once daily 12. Anemia of chronic kidney disease. 13. DVT prophylaxis. .Continue bilateral knee-high TERRIE hose and SCDs 14. CODE STATUS full code Discharge plan: Return home. Patient will be admitted to the hospital for a minimum of 2 nights day. Impression and plan of care have been directed as dictated by the signing physician. Jessenia Gonzalez nurse practitioner acting as scribe for signing physician.
[2017-11-24] MEDS ORDERED: DARBEPOETIN ALFA 40 MCG/0.4 ML SYRINGE SQ SCH (10:00)
[2017-11-24 11:50] LABS: Glucose,Whole Blood 97 mg/dL (75-99)
[2017-11-24 13:46] LABS: Hemoglobin A1C 6.3 % (4.0-6.0)
[2017-11-24] MEDS ORDERED: PEG 3350-NA SULF,BICARB,CL/KCL 4,000 ML BOTTLE PO ONE (15:00)
[2017-11-24 17:13] LABS: Glucose,Whole Blood 104 mg/dL (75-99)
[2017-11-24 18:35] LABS: Anisocytosis Slight; Basophils % (A) 0 %; Eosinophils # (A) 0.1 k/uL (0-0.7); Eosinophils % (A) 1 %; HCT 31.8 % (34.0-46.0); HGB 9.8 gm/dL (11.4-16.0); Hypochromasia Slight; Lymphocytes % (A) 10 %; MCH 28.3 pg (25.0-35.0); MCHC 30.9 g/dL (31.0-37.0); MCV 91.7 fL (80.0-100.0); Mean Platelet Volume 7.6; Monocytes # (A) 0.6 k/uL (0-1.0); Monocytes % (A) 7 %; Neutrophils # (A) 7.6 k/uL (1.3-7.7); Neutrophils % (A) 79 %; Platelet Count 179 k/uL (150-450); Poikilocytosis Slight; RBC 3.47 m/uL (3.80-5.40); RDW 19.3 % (11.5-15.5); WBC 9.6 k/uL (3.8-10.6)
[2017-11-24 19:33] LABS: Appearance,Urine Cloudy (Clear); Bacteria,Urine Few /hpf; Bilirubin,Urine 1+ (Negative); Blood,Urine Trace (Negative); Color,Urine Yellow; Glucose,Urine (UA) Negative (Negative); Hyaline Casts,Urine 10 /lpf (0-2); Ketones,Urine Negative (Negative); Leukocyte Esterase,Urine Large (Negative); Mucus,Urine Rare /hpf; Nitrite,Urine Negative (Negative); Protein,Urine 1+ (Negative); RBC,Urine 23 /hpf (0-5); Specific Gravity,Urine 1.018 (1.001-1.035); Squamous Epithelial Cell,Urine 13 /hpf (0-4); Urobilinogen,Urine <2.0 mg/dL (<2.0); WBC,Urine 164 /hpf (0-5)
[2017-11-24 21:49] LABS: Glucose,Whole Blood 112 mg/dL (75-99)
[2017-11-25 02:29] LABS: Anisocytosis Slight; Basophils % (A) 0 %; Eosinophils # (A) 0.1 k/uL (0-0.7); Eosinophils % (A) 1 %; HCT 29.9 % (34.0-46.0); HGB 9.3 gm/dL (11.4-16.0); Hypochromasia Slight; Lymphocytes # (A) 1.1 k/uL (1.0-4.8); Lymphocytes % (A) 13 %; MCH 28.4 pg (25.0-35.0); MCV 91.7 fL (80.0-100.0); Mean Platelet Volume 7.4; Monocytes # (A) 0.6 k/uL (0-1.0); Monocytes % (A) 7 %; Neutrophils # (A) 6.5 k/uL (1.3-7.7); Neutrophils % (A) 76 %; Platelet Count 144 k/uL (150-450); Poikilocytosis Slight; RBC 3.27 m/uL (3.80-5.40); WBC 8.6 k/uL (3.8-10.6)
[2017-11-25 03:11] LABS: Glucose,Whole Blood 71 mg/dL (75-99)
[2017-11-25] MEDS: INSULIN ASPART 100 UNIT/ML 1 ML 10 ML VIAL SQ SCH ×5 (03:15→21:50)
[2017-11-25 07:37] LABS: Glucose,Whole Blood 79 mg/dL (75-99)
[2017-11-25] MEDS: CRANBERRY W/ VIT C PO SCH ×2 (07:53→21:49)
[2017-11-25] MEDS: SEVELAMER 800 MG TAB PO SCH ×3 (07:53→18:45)
[2017-11-25] MEDS ORDERED: LACTATED RINGERS 1,000 ML IV ONE (07:59)
[2017-11-25] MEDS ORDERED: PROPOFOL 10 MG/ML 20 ML VIAL IV ONE (08:01)
[2017-11-25] MEDS ORDERED: LIDOCAINE 1% INJ 10MG/ML (20 ML MDV) ONE (08:01)
[2017-11-25 08:21] LABS: Anisocytosis Slight; Basophils % (A) 0 %; Eosinophils # (A) 0.1 k/uL (0-0.7); Eosinophils % (A) 1 %; HCT 29.6 % (34.0-46.0); HGB 9.3 gm/dL (11.4-16.0); Lymphocytes # (A) 0.9 k/uL (1.0-4.8); Lymphocytes % (A) 10 %; MCHC 31.5 g/dL (31.0-37.0); Mean Platelet Volume 7.9; Monocytes # (A) 0.6 k/uL (0-1.0); Monocytes % (A) 7 %; Neutrophils # (A) 7.1 k/uL (1.3-7.7); Neutrophils % (A) 80 %; Platelet Count 126 k/uL (150-450); RBC 3.21 m/uL (3.80-5.40); RDW 19.2 % (11.5-15.5)
[2017-11-25 08:22] LABS: Calcium 7.9 mg/dL (8.4-10.2); Potassium 3.9 mmol/L (3.5-5.1)
--- NOTE | 2017-11-25 08:32 | P.PCN ---
Date of Procedure: 11/25/17 Procedure(s) Performed: Brief history: Patient is a pleasant 72-year-old white female, admitted to the hospital with acute GI bleed. She presented with multiple episodes of maroon colored stools and black-colored stools for the last 2 days' duration. Hemoglobin was 10.3 g/ dL. She was admitted to the hospital 2 weeks ago for rectal bleeding and a CAT scan at that time showed evidence of right-sided colitis which was thought infectious versus ischemic in etiology and was treated conservatively and her symptoms resolved. She now presents with acute GI bleed and hence scheduled for an elective upper endoscopy as well as colonoscopy . She has history of end -stage renal disease on hemodialysis. Procedure performed: Esophagogastroduodenoscopy Colonoscopy with biopsy Preoperative diagnosis: Acute GI bleed Anesthesia: MAC Procedure: After informed consent was obtained from the patient was brought into the endoscopy unit and IV sedation was administered by anesthesia under continuous monitoring. Initially upper endoscopy was done. The Olympus GF 160 video endoscope was inserted inserted into the mouth and esophagus intubated without any difficulty and was gradually advanced into the stomach and duodenum and carefully examined. The bulb and second part of the duodenum appeared normal. The scope was then withdrawn into the stomach adequately insufflated with air and upon careful examination the antrum and body, cardia and fundus appeared normal. The scope was then withdrawn into the esophagus. The GE junction was located at 40 cm to the incisors. It appeared regular with no erythema erosions or ulcerations. Rest of the esophagus appeared normal. Patient tolerated the procedure well. At this time the patient continued to remain sedation. Initial digital rectal examination was normal. Olympus CF 160 video colonoscope was then inserted into the rectum and gradually advanced to the cecum without any difficulty. Careful examination was performed as the scope was gradually being withdrawn. The prep was fair.. There was an isolated 3 cm superficial ulceration noted in the base of the cecum that was biopsied. There was another isolated ulceration in the ascending colon measuring 2 cm in size that was biopsied. In the mid transverse colon there was a large ulceration measuring about 4-5 cm, very superficial which appears to be the source of bleeding and multiple biopsies were done from the margin of the ulcer. The intervening mucosa in the cecum easily colon and transverse colon appeared normal. The rest of the descending colon, sigmoid colon and rectum appeared normal. His old blood noted throughout the entire colon which was thoroughly irrigated. Retroflexion was performed in the rectum and no lesions were noted. Patient tolerated the procedure well. Impression: 1. Upper Endoscopy is within normal limits with no evidence of acute upper GI bleed. 2. Colonoscopy revealed isolated ulcerations measuring between 2-4 cm in size in the cecum, ascending colon and in the transverse colon all consistent with focal ischemic colitis with normal-appearing intervening mucosa. No evidence of colorectal neoplasia Recommendations: Findings of this examination were discussed with the patient as well as her family. She was advised to follow with the biopsy results. She'll be started on clear liquid diet and advance as tolerated. If she continues to have bleeding will obtain surgical consultation.
[2017-11-25] MEDS: DILTIAZEM ORAL 60 MG TAB PO SCH ×3 (10:02→21:55)
[2017-11-25] MEDS: PANTOPRAZOLE 40 MG/10 ML VIAL IV SCH ×2 (10:02→21:55)
[2017-11-25] MEDS: ISOSORBIDE MONONITRATE ER 30 MG TAB.ER.24H PO SCH (10:02)
[2017-11-25] MEDS: GABAPENTIN 300 MG CAP PO SCH ×2 (10:02→21:55)
[2017-11-25] MEDS: DULoxetine HCL 60 MG CAPSULE.DR PO SCH (10:03)
[2017-11-25] MEDS: EZETIMIBE 10 MG TAB PO SCH (10:03)
[2017-11-25] MEDS: DOCUSATE 100 MG CAP PO SCH ×3 (10:03→21:55)
[2017-11-25] MEDS: CHOLECALCIFEROL 1,000 UNIT TAB PO SCH (10:03)
[2017-11-25] MEDS: METOPROLOL SUCCINATE (ER) 50 MG TAB.ER.24H PO SCH (10:04)
[2017-11-25] MEDS: MAGNESIUM OXIDE 400 MG TAB PO SCH (10:04)
[2017-11-25] MEDS: FUROSEMIDE 80 MG TAB PO SCH ×2 (10:23→18:45)
[2017-11-25] MEDS: AMIODARONE 100 MG TAB PO SCH (10:23)
[2017-11-25] MEDS: LORATADINE 10 MG TAB PO SCH (10:23)
--- NOTE | 2017-11-25 10:35 | P.GSCN ---
History of Present Illness Consult date: 11/25/17 Reason for Consult: GI bleed History of present illness: Patient with admission for GI bleeding. Was hospitalized 2 weeks ago for shortness of breath and during that hospital stay was having some bleeding issues. CAT scan at that time showed evidence of right sided colitis thought to be likely ischemic in nature. She is on aspirin and Plavix and eloquis at home. Came back to the hospital over the last few days with tarry stools. Underwent EGD and colonoscopy today revealing superficial ulcerations in the right side of her colon consistent with probable ischemic colitis. Biopsies are pending. She denies pain. Her anticoagulation was held. She developed thrombosis of her left arm fistula unfortunately. Review of Systems The patient denies any acute changes in vision or hearing, no dysphagia or odynophagia, no chest pain or shortness of breath, no dysuria or hematuria, no headache, no runny nose, no unexplained weight loss Past Medical History Past Medical History: Atrial Fibrillation, Coronary Artery Disease (CAD), Heart Failure, Diabetes Mellitus, GERD/Reflux, Hyperlipidemia, Hypertension, Myocardial Infarction (OK), Pneumonia, Renal Disease, Sleep Apnea/CPAP/BIPAP Additional Past Medical History / Comment(s): Morbid obesity, coronary artery disease, moderate degree of aortic stenosis, chronic atrial fibrillation paroxysmal, diabetes mellitus, hypertension, hyperlipidemia, 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 coli, chronic back pain, peripheral neuropathy, chronic anemia, fatty liver, obstructive sleep apnea maintained on BiPAP on outpatient basis, history of wounds/sore in the right foot that was healed, healed sacral decubitus ulceration and bedsores Last Myocardial Infarction Date:: 2015 History of Any Multi-Drug Resistant Organisms: MRSA Year Discovered:: 05/07/17 MDRO Source:: sputum Past Surgical History: Back Surgery, Cholecystectomy, Heart Catheterization, Heart Catheterization With Stent, Hysterectomy, Orthopedic Surgery Additional Past Surgical History / Comment(s): PCI with stents, several back surgeries-lumbar, bilateral carpal tunnel releases, bilateral cataract removals , port then fistula for hemodialysis. Past Anesthesia/Blood Transfusion Reactions: No Reported Reaction Additional Past Anesthesia/Blood Transfusion Reaction / Comm: Confusion that resolved. Date of Last Stent Placement:: 10/06/17 Past Psychological History: No Psychological Hx Reported Additional Psychological History / Comment(s): Pt's rachel resides with her. Pt is wheelchair bound. She can transfer herself into wheelchair and onto toilet. Daughter organizes her medications. She has oxygen in the house which she is currently using prn. Smoking Status: Never smoker Past Alcohol Use History: None Reported Additional Past Alcohol Use History / Comment(s): Patient had exposure to secondhand smoke with her . Past Drug Use History: None Reported - Past Family History Father Additional Family Medical History / Comment(s): Brain aneurysm ; age 72 Sister(s) Family Medical History: Hypertension Additional Family Medical History / Comment(s): Aortic stenosis; mitral valve disease Mother Family Medical History: AFIB, CVA/TIA, Hypertension Additional Family Medical History / Comment(s): mother age 83 Daughter(s) Family Medical History: Asthma Son(s) Family Medical History: Asthma Medications and Allergies Home Medications Medication Instructions Recorded Confirmed Type DULoxetine HCL [Cymbalta] 60 mg PO DAILY 08/04/14 11/23/17 History Fish Oil/Dha/Epa [Fish Oil 1,200 1 cap PO MOWEFR 08/04/14 11/23/17 History mg Fish Oil] Amiodarone HCl [Pacerone] 100 mg PO DAILY 11/22/15 11/23/17 History Apixaban [Eliquis] 2.5 mg PO BID 11/22/15 11/23/17 History Docusate [Colace] 100 mg PO BID 11/22/15 11/23/17 History Ezetimibe [Zetia] 10 mg PO DAILY 11/22/15 11/23/17 History Isosorbide Mononitrate ER [Imdur] 30 mg PO DAILY 11/22/15 11/23/17 History Gabapentin [Neurontin] 300 mg PO BID #60 capsule 11/27/15 11/23/17 Rx Cranberry 4200mg-Vitamin C 1 tab PO BID 12/25/16 11/23/17 History Omeprazole 20 mg PO DAILY 12/25/16 11/23/17 History Cholecalciferol (Vitamin D3) 2,000 unit PO DAILY 12/31/16 11/23/17 History [Vitamin D3] Furosemide [Lasix] 80 mg PO BID@0900,1600 tab 01/13/17 11/23/17 Rx Ferrous Sulfate [Iron (65 MG 325 mg PO DAILY 05/05/17 11/23/17 History Elemental)] Insulin Aspart [NovoLOG See Protocol SQ AC-TID 05/05/17 11/23/17 History (formulary)] Magnesium Oxide [Mag-Ox] 250 mg PO DAILY 05/05/17 11/23/17 History Sevelamer [Renvela] 800 mg PO TID-W/MEALS #90 tab 05/15/17 11/23/17 Rx Insulin Aspart [NovoLOG 12 unit SQ AC-BRKFST 08/16/17 11/23/17 History (formulary)] Clopidogrel [Plavix] 75 mg PO DAILY #30 tab 08/21/17 11/23/17 Rx Fexofenadine HCl [Amanda Allergy] 180 mg PO DAILY 09/27/17 11/23/17 History Insulin Aspart [NovoLOG] 14 unit SQ AC-LUNCH 09/27/17 11/23/17 History Insulin Aspart [NovoLOG] 14 unit SQ AC-SUPPER 09/27/17 11/23/17 History Aspirin 81 mg PO DAILY #90 chewable 10/07/17 11/23/17 Rx Diltiazem HCl 60 mg PO TID 10/23/17 11/23/17 History Midodrine HCl [ProAmatine] 5 mg PO DAILY PRN 10/23/17 11/23/17 History Acetaminophen Tab [Tylenol] 325 mg PO Q6H PRN 11/09/17 11/23/17 History Darbepoetin Aron [Aranesp] 40 mcg SQ Q7D syringe 11/15/17 11/23/17 Rx Insulin Glargine [Lantus] 35 unit SQ BID #0 11/15/17 11/23/17 Rx Metoprolol Succinate (ER) [Toprol 50 mg PO DAILY #30 tab 11/15/17 11/23/17 Rx XL] metroNIDAZOLE [Flagyl] 500 mg PO TID #21 tab 11/15/17 11/23/17 Rx predniSONE See Taper PO DAILY 11/23/17 11/23/17 History Allergies Allergy/AdvReac Type Severity Reaction Status Date / Time KUSHAL Inhibitors Allergy Swelling Verified 11/23/17 12:21 ARB-Angiotensin Receptor Allergy Swelling Verified 11/23/17 12:21 Antagonist cephalexin monohydrate Allergy Rash/Hives Verified 11/23/17 12:21 [From Keflex] propoxyphene HCl AdvReac Hallucinati Verified 11/23/17 12:21 [From Darvon] ons [id number] Reductase AdvReac Myalgia Verified 11/23/17 12:21 Inhibitor Surgical - Exam Vital Signs Temp 97.4 F L 11/23/17 12:03 Physical exam: General: Well-developed, well-nourished HEENT: Normocephalic, sclerae nonicteric Abdomen: Nontender, nondistended Extremities: No edema Neuro: Alert and oriented Results - Labs 11/25/17 07:49 11/25/17 07:49 Abnormal Lab Results - Last 24 Hours (Table) 11/23/17 11/24/17 11/24/17 Range/Units 22:00 15:55 17:10 RBC (3.80-5.40) m/uL Hgb (11.4-16.0) gm/dL Hct (34.0-46.0) % MCHC (31.0-37.0) g/dL RDW (11.5-15.5) % Plt Count (150-450) k/uL Lymphocytes # (1.0-4.8) k/uL Sodium (137-145) mmol/L Chloride (98-107) mmol/L BUN (7-17) mg/dL Creatinine (0.52-1.04) mg/dL Glucose (74-99) mg/dL POC Glucose (mg/dL) 104 H (75-99) mg/dL Hemoglobin A1c 6.3 H (4.0-6.0) % Calcium (8.4-10.2) mg/dL Phosphorus (2.5-4.5) mg/dL Urine Appearance Cloudy H (Clear) Urine Protein 1+ H (Negative) Urine Blood Trace H (Negative) Urine Bilirubin 1+ H (Negative) Ur Leukocyte Esterase Large H (Negative) Urine RBC 23 H (0-5) /hpf Urine WBC 164 H (0-5) /hpf Urine WBC Clumps Occasional H (None) /hpf Ur Squamous Epith Cells 13 H (0-4) /hpf Urine Bacteria Few H (None) /hpf Hyaline Casts 10 H (0-2) /lpf Urine Mucus Rare H (None) /hpf 11/24/17 11/24/17 11/25/17 Range/Units 18:25 21:48 01:54 RBC 3.47 L 3.27 L (3.80-5.40) m/uL Hgb 9.8 L 9.3 L (11.4-16.0) gm/dL Hct 31.8 L 29.9 L (34.0-46.0) % MCHC 30.9 L (31.0-37.0) g/dL RDW 19.3 H 19.0 H (11.5-15.5) % Plt Count 144 L (150-450) k/uL Lymphocytes # (1.0-4.8) k/uL Sodium (137-145) mmol/L Chloride (98-107) mmol/L BUN (7-17) mg/dL Creatinine (0.52-1.04) mg/dL Glucose (74-99) mg/dL POC Glucose (mg/dL) 112 H (75-99) mg/dL Hemoglobin A1c (4.0-6.0) % Calcium (8.4-10.2) mg/dL Phosphorus (2.5-4.5) mg/dL Urine Appearance (Clear) Urine Protein (Negative) Urine Blood (Negative) Urine Bilirubin (Negative) Ur Leukocyte Esterase (Negative) Urine RBC (0-5) /hpf Urine WBC (0-5) /hpf Urine WBC Clumps (None) /hpf Ur Squamous Epith Cells (0-4) /hpf Urine Bacteria (None) /hpf Hyaline Casts (0-2) /lpf Urine Mucus (None) /hpf 11/25/17 11/25/17 11/25/17 Range/Units 03:10 07:49 07:49 RBC 3.21 L (3.80-5.40) m/uL Hgb 9.3 L (11.4-16.0) gm/dL Hct 29.6 L (34.0-46.0) % MCHC (31.0-37.0) g/dL RDW 19.2 H (11.5-15.5) % Plt Count 126 L (150-450) k/uL Lymphocytes # 0.9 L (1.0-4.8) k/uL Sodium 130 L (137-145) mmol/L Chloride 90 L (98-107) mmol/L BUN 58 H (7-17) mg/dL Creatinine 3.74 H (0.52-1.04) mg/dL Glucose 69 L (74-99) mg/dL POC Glucose (mg/dL) 71 L (75-99) mg/dL Hemoglobin A1c (4.0-6.0) % Calcium 7.9 L (8.4-10.2) mg/dL Phosphorus 6.0 H (2.5-4.5) mg/dL Urine Appearance (Clear) Urine Protein (Negative) Urine Blood (Negative) Urine Bilirubin (Negative) Ur Leukocyte Esterase (Negative) Urine RBC (0-5) /hpf Urine WBC (0-5) /hpf Urine WBC Clumps (None) /hpf Ur Squamous Epith Cells (0-4) /hpf Urine Bacteria (None) /hpf Hyaline Casts (0-2) /lpf Urine Mucus (None) /hpf Microbiology - Last 24 Hours (Table) 11/24/17 15:55 Urine Culture - Preliminary Urine,Voided 11/23/17 12:25 Blood Culture - Preliminary Blood No Growth after 24 hours Diabetes panel 11/23/17 11/25/17 Range/Units 22:00 07:49 Sodium 130 L (137-145) mmol/L Potassium 3.9 (3.5-5.1) mmol/L Chloride 90 L (98-107) mmol/L Carbon Dioxide 24 (22-30) mmol/L BUN 58 H (7-17) mg/dL Creatinine 3.74 H (0.52-1.04) mg/dL Glucose 69 L (74-99) mg/dL Hemoglobin A1c 6.3 H (4.0-6.0) % Calcium 7.9 L (8.4-10.2) mg/dL Calcium panel 11/25/17 Range/Units 07:49 Calcium 7.9 L (8.4-10.2) mg/dL Phosphorus 6.0 H (2.5-4.5) mg/dL Pituitary panel 11/25/17 Range/Units 07:49 Sodium 130 L (137-145) mmol/L Potassium 3.9 (3.5-5.1) mmol/L Chloride 90 L (98-107) mmol/L Carbon Dioxide 24 (22-30) mmol/L BUN 58 H (7-17) mg/dL Creatinine 3.74 H (0.52-1.04) mg/dL Glucose 69 L (74-99) mg/dL Calcium 7.9 L (8.4-10.2) mg/dL Adrenal panel 11/25/17 Range/Units 07:49 Sodium 130 L (137-145) mmol/L Potassium 3.9 (3.5-5.1) mmol/L Chloride 90 L (98-107) mmol/L Carbon Dioxide 24 (22-30) mmol/L BUN 58 H (7-17) mg/dL Creatinine 3.74 H (0.52-1.04) mg/dL Glucose 69 L (74-99) mg/dL Calcium 7.9 L (8.4-10.2) mg/dL Assessment and Plan (1) Lower GI hemorrhage Narrative/Plan: Endoscopic findings noted. Agree with GI impression. Resume diet. Await biopsy results. Patient will likely require ongoing Plavix use because of the recent stent placement. Consider holding eloquis for now. Current Visit: Yes Status: Acute Code(s): K92.2 - GASTROINTESTINAL HEMORRHAGE, UNSPECIFIED SNOMED Code(s): 75262695
[2017-11-25 12:13] LABS: Glucose,Whole Blood 111 mg/dL (75-99)
[2017-11-25] MEDS ORDERED: MIDAZOLAM 2 MG/2 ML VIAL IV ONE (12:40)
[2017-11-25] MEDS ORDERED: LIDOCAINE 1% INJ 10MG/ML (20 ML MDV) SQ ONE ×3 (12:43→13:07)
[2017-11-25] MEDS ORDERED: SODIUM CHLORIDE 0.9% 500 ML IV ONE (12:44)
[2017-11-25] MEDS ORDERED: IV FLUID CONTINUATION 1,000 ML IV ONE (12:44)
[2017-11-25] MEDS ORDERED: IOPAMIDOL-250 50ML BTL IV ONE (12:52)
[2017-11-25 13:04] VITALS: BMI 38.0
--- NOTE | 2017-11-25 13:27 | P.PN ---
Subjective Progress Note Date: 11/25/17 Principal diagnosis: Acute rectal bleed, acute blood loss anemia, end-stage renal disease on hemodialysis, atherosclerotic heart disease, diabetes, significant fluid retention and weight gain. This is a 72-year-old female patient of Dr. Garcia with past medical history of paroxysmal atrial fibrillation, coronary artery disease status post myocardial infarction, has history of triple-vessel disease but was considered high risk for bypass, status post LAD stent in July 2017 and left circumflex in August 2017, chronic diastolic heart failure, diabetes mellitus type 2, hyperlipidemia, hypertension and hypertensive cardiovascular disease, end- stage renal disease on hemodialysis Monday and Monday, peripheral neuropathy. Patient was recently hospitalized at [facility] and discharged on November 15 and treated for sepsis secondary to colitis, possible ischemic colitis, GI bleed with anemia. She was discharged on Flagyl and continued on Plavix, eliquis and baby aspirin. Patient has had significant weakness for the past 2 days with dark stools. She came into [facility] emergency center found to have hemoglobin of 5.8. She is status post 2 units of packed RBCs with hemoglobin of 9.7. Occult stool was positive. Chest x-ray showed no acute cardio pulmonary disease. Patient has been admitted into intensive care unit. She has been seen by Dr. Manrique and underwent hemodialysis yesterday evening. Patient seen by Dr. Hernandez and currently aspirin, Plavix and eliquis are on hold. Plavix will need to be resumed as soon as possible once cleared by GI. Patient has been seen by gastroenterology with plan for conservative management. Dr. Lee is on consult for intensive care management and has cleared her for transfer to [facility]. 11/25: Patient ended up going for colonoscopy with Dr. Robins finding was consistent with transverse colitis with ulcerated area and acute bleeding. The plan at this point to continue conservative management if fail patient will require to go for a partial resection. And have discussion with Dr. Michelle and the family on separate occasion about the possibility and the need for surgical intervention if she keeps having bleeding. In the meanwhile no blood transfusion since yesterday. Objective - Vital Signs Vital signs: Vital Signs Temp 97.7 F 11/25/17 07:30 Pulse 81 11/25/17 07:30 Resp 22 11/25/17 07:30 BP 172/67 11/25/17 07:30 Pulse Ox 99 11/25/17 07:30 Intake & Output 11/24/17 11/25/17 11/25/17 18:59 06:59 18:59 Intake Total 600 200 Output Total 0 Balance 0 600 200 Intake: IV 200 Oral 600 Output: Urine 0 Other: Voiding Method Bedpan Bedpan # Voids 0 # Bowel Movements 3 1 - Exam ROS: CONSTITUTIONAL: Well-developed no acute respiratory distress. Laying in bed no distress or pain EYES: No icterus sclerae, no conjunctivitis. EARS, NOSE, MOUTH, THROAT, and FACE: No sore throat, lymphadenopathy, carotid bruits or deformity. RESPIRATORY: No SOB cough or wheezes. CARDIOVASCULAR: No CP, Palpitation, PND, Orthopnea, or angina. GASTROINTESTINAL: No further rectal bleed today still having mild abdominal discomfort. GENITOURINARY: Negative for Hematuria or UTI, no kidney stones. INTEGUMENT/BREAST: Negative for any muscular injury with mild osteoarthritis.. HEMATOLOGIC/LYMPHATIC: Negative for bleed or purpura. MUSCULOSKELTAL: Negative for Myalgia or arthralgia. NEURLOGICAL: Mild confusion no syncope no dizziness. BEHAVIORAL/PSYCH: Negative. ENDOCRINE: Negative. Physical Exam: General Appearance: Alert, cooperative, no distress, appears stated age. Neck HEENT: Supple, no lymphadenopathy, no thyroid enlargement, no carotid bruits. Lungs: Decreased breaths on bilaterally with fine rhonchi and mild expiratory wheezes. Chest Wall: Chest wall normal expansion with deep inspiration no tenderness and no deformity was found on exam, no costochondral pain or discomfort. Heart: Regular rate and rhythm, S1, S2 normal, no murmur, rub or gallop. Back: Symmetric, no curvature, ROM normal, no CVA tenderness. Abdomen: Soft, non-tender, bowel sounds active all four quadrants, no masses, no organomegaly. Slight discomfort in the right upper quadrant and mid abdominal region area. Extremities: Extremities normal, atraumatic, no cyanosis or edema. Pulses: 2+ and symmetric. Skin: Skin color, texture, tugor normal, no rashes or lesions. Neurologic: Alert oriented x3 cranial nerves II through XII intact, no motor deficit, no abnormal balance or gait. - Labs CBC & Chem 7: 11/25/17 07:49 07/28/18 07:49 Labs: Abnormal Lab Results - Last 24 Hours (Table) 11/23/17 11/24/17 11/24/17 Range/Units 22:00 15:55 17:10 RBC (3.80-5.40) m/uL Hgb (11.4-16.0) gm/dL Hct (34.0-46.0) % MCHC (31.0-37.0) g/dL RDW (11.5-15.5) % Plt Count (150-450) k/uL Lymphocytes # (1.0-4.8) k/uL Sodium (137-145) mmol/L Chloride (98-107) mmol/L BUN (7-17) mg/dL Creatinine (0.52-1.04) mg/dL Glucose (74-99) mg/dL POC Glucose (mg/dL) 104 H (75-99) mg/dL Hemoglobin A1c 6.3 H (4.0-6.0) % Calcium (8.4-10.2) mg/dL Phosphorus (2.5-4.5) mg/dL Urine Appearance Cloudy H (Clear) Urine Protein 1+ H (Negative) Urine Blood Trace H (Negative) Urine Bilirubin 1+ H (Negative) Ur Leukocyte Esterase Large H (Negative) Urine RBC 23 H (0-5) /hpf Urine WBC 164 H (0-5) /hpf Urine WBC Clumps Occasional H (None) /hpf Ur Squamous Epith Cells 13 H (0-4) /hpf Urine Bacteria Few H (None) /hpf Hyaline Casts 10 H (0-2) /lpf Urine Mucus Rare H (None) /hpf 11/24/17 11/24/17 11/25/17 Range/Units 18:25 21:48 01:54 RBC 3.47 L 3.27 L (3.80-5.40) m/uL Hgb 9.8 L 9.3 L (11.4-16.0) gm/dL Hct 31.8 L 29.9 L (34.0-46.0) % MCHC 30.9 L (31.0-37.0) g/dL RDW 19.3 H 19.0 H (11.5-15.5) % Plt Count 144 L (150-450) k/uL Lymphocytes # (1.0-4.8) k/uL Sodium (137-145) mmol/L Chloride (98-107) mmol/L BUN (7-17) mg/dL Creatinine (0.52-1.04) mg/dL Glucose (74-99) mg/dL POC Glucose (mg/dL) 112 H (75-99) mg/dL Hemoglobin A1c (4.0-6.0) % Calcium (8.4-10.2) mg/dL Phosphorus (2.5-4.5) mg/dL Urine Appearance (Clear) Urine Protein (Negative) Urine Blood (Negative) Urine Bilirubin (Negative) Ur Leukocyte Esterase (Negative) Urine RBC (0-5) /hpf Urine WBC (0-5) /hpf Urine WBC Clumps (None) /hpf Ur Squamous Epith Cells (0-4) /hpf Urine Bacteria (None) /hpf Hyaline Casts (0-2) /lpf Urine Mucus (None) /hpf 11/25/17 11/25/17 11/25/17 Range/Units 03:10 07:49 07:49 RBC 3.21 L (3.80-5.40) m/uL Hgb 9.3 L (11.4-16.0) gm/dL Hct 29.6 L (34.0-46.0) % MCHC (31.0-37.0) g/dL RDW 19.2 H (11.5-15.5) % Plt Count 126 L (150-450) k/uL Lymphocytes # 0.9 L (1.0-4.8) k/uL Sodium 130 L (137-145) mmol/L Chloride 90 L (98-107) mmol/L BUN 58 H (7-17) mg/dL Creatinine 3.74 H (0.52-1.04) mg/dL Glucose 69 L (74-99) mg/dL POC Glucose (mg/dL) 71 L (75-99) mg/dL Hemoglobin A1c (4.0-6.0) % Calcium 7.9 L (8.4-10.2) mg/dL Phosphorus 6.0 H (2.5-4.5) mg/dL Urine Appearance (Clear) Urine Protein (Negative) Urine Blood (Negative) Urine Bilirubin (Negative) Ur Leukocyte Esterase (Negative) Urine RBC (0-5) /hpf Urine WBC (0-5) /hpf Urine WBC Clumps (None) /hpf Ur Squamous Epith Cells (0-4) /hpf Urine Bacteria (None) /hpf Hyaline Casts (0-2) /lpf Urine Mucus (None) /hpf Microbiology - Last 24 Hours (Table) 11/24/17 15:55 Urine Culture - Preliminary Urine,Voided 11/23/17 12:25 Blood Culture - Preliminary Blood No Growth after 24 hours Assessment and Plan Plan: 1. Acute GI bleed with acute blood loss anemia on top of anemia of chronic disease. Patient had more bleeding yesterday no further blood transfusion require, her hemoglobin corrected nicely after 2 units of blood transfusion and after the decreased dilution from dialysis. Patient ended up going for colonoscopy with Dr. Gross today finding was consistent with a transverse colitis whether this is ulcerative colitis or ischemic colitis to be determined with pathology over the next few days. If bleeding continue to be a problem patient might require surgical intervention for partial resection. 2. Recent admission for sepsis secondary to colitis of the cecum and ascending colon, possible ischemic colitis. No further sign and symptom of sepsis. 3. Chronic diastolic heart failure. Continue hemodialysis per nephrology. Continue home dose of Lasix at 80 mg twice daily. 4. History of moderate aortic stenosis. Continue Imdur 30 mg, Toprol 50 mg. 5. End-stage renal disease on hemodialysis Monday and Monday. Continue sevelamer 800 mg 3 times a day with meals 6. Hypertension cardiovascular disease. Continue amiodarone, Cardizem, Imdur, Toprol-XL. 5. Paroxysmal atrial fibrillation. Continue amiodarone 100 mg once daily, Cardizem 60 mg 3 times a day. Eliquis is on hold. 6. History of myocardial infarction and coronary artery disease status post LAD stent in July 2017 and left circumflex in August 2017. Continue Toprol-XL 50 mg once daily, hold aspirin and Plavix for concern of GI bleed. Cardiology consult appreciated. 7. Diabetes mellitus type 2, insulin requiring. Continue insulin sliding scale. 8. GERD continue Protonix. 9. History of hyperlipidemia intolerant of statins. 10. Diabetic peripheral neuropathy continue gabapentin 300 mg twice daily. 11. Recurrent depression. Continue Cymbalta 60 mg orally once daily 12. Anemia of chronic kidney disease.
[2017-11-25] MEDS ORDERED: CLOPIDOGREL 75 MG TAB PO SCH (13:30)
--- NOTE | 2017-11-25 13:55 | P.PN ---
Subjective Progress Note Date: 11/25/17 Principal diagnosis: Patient is a 72-year-old female seen in renal consultation for end-stage renal disease. She is maintained on hemodialysis on a Monday schedule. Patient presented due to having dark stools for the last 2 days. She was maintained on aspirin Plavix as well as Eliquis. Her hemoglobin was 5.8 on admission and did improve to 11.4 after 2 units of blood transfusion. She had colonoscopy done and revealed isolated ulcerations measuring between 2- 4 cm in size in the cecum, ascending colon and in the transverse colon all consistent with focal ischemic colitis with normal-appearing intervening mucosa. No evidence of colorectal neoplasia She was seen in [facility] after P cath inserted as her fisatula was clotted. She denies any fevr chills, abd pain is resolved, o GI bleed. No CP, has min sob at times. Objective - Vital Signs Vital signs: Vital Signs Temp 97.7 F 11/25/17 07:30 Pulse 81 11/25/17 07:30 Resp 22 11/25/17 07:30 BP 172/67 11/25/17 07:30 Pulse Ox 99 11/25/17 07:30 Intake & Output 11/24/17 11/25/17 11/25/17 18:59 06:59 18:59 Intake Total 600 200 Output Total 0 Balance 0 600 200 Intake: IV 200 Oral 600 Output: Urine 0 Other: Voiding Method Bedpan Bedpan # Voids 0 # Bowel Movements 3 1 Vital signs are stable. General: The patient appeared well nourished and normally developed. HEENT: Head exam is unremarkable. Neck is without jugular venous distension. LUNGS: Lungs are clear to auscultation and percussion. Breath sounds decreased. HEART: Rate and Rhythm are regular. First and second heart sounds normal. No murmurs, rubs or gallops. ABDOMEN: Abdominal exam reveals Non-tender and non-distended. Obese EXTREMITITES: No clubbing, cyanosis, or edema. GEOMETRY TUTOR: awake alert - Labs CBC & Chem 7: 11/25/17 07:49 11/25/17 07:49 Labs: Abnormal Lab Results - Last 24 Hours (Table) 11/23/17 11/24/17 11/24/17 Range/Units 22:00 15:55 17:10 RBC (3.80-5.40) m/uL Hgb (11.4-16.0) gm/dL Hct (34.0-46.0) % MCHC (31.0-37.0) g/dL RDW (11.5-15.5) % Plt Count (150-450) k/uL Lymphocytes # (1.0-4.8) k/uL Sodium (137-145) mmol/L Chloride (98-107) mmol/L BUN (7-17) mg/dL Creatinine (0.52-1.04) mg/dL Glucose (74-99) mg/dL POC Glucose (mg/dL) 104 H (75-99) mg/dL Hemoglobin A1c 6.3 H (4.0-6.0) % Calcium (8.4-10.2) mg/dL Phosphorus (2.5-4.5) mg/dL Urine Appearance Cloudy H (Clear) Urine Protein 1+ H (Negative) Urine Blood Trace H (Negative) Urine Bilirubin 1+ H (Negative) Ur Leukocyte Esterase Large H (Negative) Urine RBC 23 H (0-5) /hpf Urine WBC 164 H (0-5) /hpf Urine WBC Clumps Occasional H (None) /hpf Ur Squamous Epith Cells 13 H (0-4) /hpf Urine Bacteria Few H (None) /hpf Hyaline Casts 10 H (0-2) /lpf Urine Mucus Rare H (None) /hpf 11/24/17 11/24/17 11/25/17 Range/Units 18:25 21:48 01:54 RBC 3.47 L 3.27 L (3.80-5.40) m/uL Hgb 9.8 L 9.3 L (11.4-16.0) gm/dL Hct 31.8 L 29.9 L (34.0-46.0) % MCHC 30.9 L (31.0-37.0) g/dL RDW 19.3 H 19.0 H (11.5-15.5) % Plt Count 144 L (150-450) k/uL Lymphocytes # (1.0-4.8) k/uL Sodium (137-145) mmol/L Chloride (98-107) mmol/L BUN (7-17) mg/dL Creatinine (0.52-1.04) mg/dL Glucose (74-99) mg/dL POC Glucose (mg/dL) 112 H (75-99) mg/dL Hemoglobin A1c (4.0-6.0) % Calcium (8.4-10.2) mg/dL Phosphorus (2.5-4.5) mg/dL Urine Appearance (Clear) Urine Protein (Negative) Urine Blood (Negative) Urine Bilirubin (Negative) Ur Leukocyte Esterase (Negative) Urine RBC (0-5) /hpf Urine WBC (0-5) /hpf Urine WBC Clumps (None) /hpf Ur Squamous Epith Cells (0-4) /hpf Urine Bacteria (None) /hpf Hyaline Casts (0-2) /lpf Urine Mucus (None) /hpf 11/25/17 11/25/17 11/25/17 Range/Units 03:10 07:49 07:49 RBC 3.21 L (3.80-5.40) m/uL Hgb 9.3 L (11.4-16.0) gm/dL Hct 29.6 L (34.0-46.0) % MCHC (31.0-37.0) g/dL RDW 19.2 H (11.5-15.5) % Plt Count 126 L (150-450) k/uL Lymphocytes # 0.9 L (1.0-4.8) k/uL Sodium 130 L (137-145) mmol/L Chloride 90 L (98-107) mmol/L BUN 58 H (7-17) mg/dL Creatinine 3.74 H (0.52-1.04) mg/dL Glucose 69 L (74-99) mg/dL POC Glucose (mg/dL) 71 L (75-99) mg/dL Hemoglobin A1c (4.0-6.0) % Calcium 7.9 L (8.4-10.2) mg/dL Phosphorus 6.0 H (2.5-4.5) mg/dL Urine Appearance (Clear) Urine Protein (Negative) Urine Blood (Negative) Urine Bilirubin (Negative) Ur Leukocyte Esterase (Negative) Urine RBC (0-5) /hpf Urine WBC (0-5) /hpf Urine WBC Clumps (None) /hpf Ur Squamous Epith Cells (0-4) /hpf Urine Bacteria (None) /hpf Hyaline Casts (0-2) /lpf Urine Mucus (None) /hpf 11/25/17 Range/Units 11:53 RBC (3.80-5.40) m/uL Hgb (11.4-16.0) gm/dL Hct (34.0-46.0) % MCHC (31.0-37.0) g/dL RDW (11.5-15.5) % Plt Count (150-450) k/uL Lymphocytes # (1.0-4.8) k/uL Sodium (137-145) mmol/L Chloride (98-107) mmol/L BUN (7-17) mg/dL Creatinine (0.52-1.04) mg/dL Glucose (74-99) mg/dL POC Glucose (mg/dL) 111 H (75-99) mg/dL Hemoglobin A1c (4.0-6.0) % Calcium (8.4-10.2) mg/dL Phosphorus (2.5-4.5) mg/dL Urine Appearance (Clear) Urine Protein (Negative) Urine Blood (Negative) Urine Bilirubin (Negative) Ur Leukocyte Esterase (Negative) Urine RBC (0-5) /hpf Urine WBC (0-5) /hpf Urine WBC Clumps (None) /hpf Ur Squamous Epith Cells (0-4) /hpf Urine Bacteria (None) /hpf Hyaline Casts (0-2) /lpf Urine Mucus (None) /hpf Microbiology - Last 24 Hours (Table) 11/24/17 15:55 Urine Culture - Preliminary Urine,Voided 11/23/17 12:25 Blood Culture - Preliminary Blood No Growth after 24 hours Assessment and Plan Assessment: 1. ESRD on dialysis Monday. Patient could not have her dialysis today because her fistula has clotted. Dr. Wright was called and has seen the patient and has inserted a permacath. This is because the Marian fistula is deep and clotted and he thinks and will need to be operated upon. 2. GI bleed secondary to ischemic colitis status post colonoscopy. Hemoglobin is 9.3 and stable. 3. Diabetes mellitus. 4. Atrial fibrillation. Plan: If possible do her HD today as was scheduled Can be dischaged per primary when Hg stable and no abd pain, HD as scheduled TTS Monitor Hg
--- NOTE | 2017-11-25 15:21 | XR ---
EXAMINATION TYPE: XR chest 1V portable DATE OF EXAM: 11/25/2017 COMPARISON: 11/24/2017 HISTORY: Dialysis catheter placement. TECHNIQUE: Single frontal view of the chest is obtained. FINDINGS: The patient's chin obscures the lung apices limiting evaluation at this region. There is a newly placed left-sided hemodialysis catheter terminating in the right atrium. There is mild pulmonar y vascular congestion, newly developed from the prior. Cardiac silhouette is again upper limits of no rmal size. No pneumothorax. Trace pleural effusions blunt the costophrenic angles. IMPRESSION: Newly placed left-sided dual lead large bore hemodialysis catheter terminating in the ri ght atrium with new mild pulmonary vascular congestion and trace pleural effusions. No postprocedural pneumothorax identified.
--- NOTE | 2017-11-25 17:14 | CONS ---
DATE OF CONSULTATION: 11/25/2017 Patient is known to me from the past, we created a left arm AV cephalobrachial fistula and the patient was having dialysis. The patient developed difficulty in accessing the fistula. The patient has history of sleep apnea, history of diabetes mellitus, history of hyperlipidemia, history of hypertension, history of myocardial infarction, history of renal disease. The patient also has been diagnosed with possible ischemic colitis. The patient had bloody stools, for that patient went for upper endoscopy and colonoscopy. She has been on Eliquis and Plavix at home. SURGICAL HISTORY: Patient had a cholecystectomy, heart catheterization with stent placement, hysterectomy, orthopedic surgery. PHYSICAL EXAMINATION: Patient was seen in her room. NECK: Supple. CHEST: Clear to auscultation. ABDOMEN: Soft. Femorals are 1+, fistula is patent proximally with thrill, but the patient has been attempted for dialysis vein, superficial vein is deep in the upper arm. PLAN: We will place a dialysis catheter. Then we will arrange for the fistulogram, possible revision of the fistula graft. Discussed with the nephrology. We will arrange. Thank you very much for the consultation. MMLULAL / IJN: [id number] / VEGA
[2017-11-25 17:15] LABS: Glucose,Whole Blood 89 mg/dL (75-99)
--- NOTE | 2017-11-25 17:26 | OP ---
OPERATIVE REPORT ADDENDUM: Conscious sedation time is 57 minutes. MMODL / IJN: [id number] /
--- NOTE | 2017-11-25 17:35 | PCN ---
PROCEDURE NOTE PREOP DIAGNOSIS: Acute on chronic renal failure. PROCEDURE: 1. Attempted to place a dialysis catheter right internal jugular vein approach. 2. Found to have a small jugular vein and we will place, then we selected the right internal jugular area. DESCRIPTION OF PROCEDURE: Ultrasound-guided, under 1% lidocaine IV sedation and micropuncture introduced into the right internal jugular vein. Micropuncture guidewire was passed and 4-[place] dilator advanced on the top of the guidewire. After that, small suture made on the chest wall and a 28 cm straight dialysis catheter brought into the neck area. After that, we passed a guidewire which was parked in the inferior vena cava. The dilator was advanced. The sheath was advanced. Through the sheath, we introduced the dialysis catheter. Tip of catheter in superior vena cava and atrium. Flushed with heparin saline and hep-locked. Dressing applied. Secured with Vicryl and nylon. Patient tolerated the procedure well. MMODL / IJN: [id number] /
[2017-11-25] MEDS: CLOPIDOGREL 75 MG TAB PO SCH (18:44)
[2017-11-25] MEDS: ACETAMINOPHEN TAB 325 MG TAB PO PRN (19:36)
[2017-11-25 21:00] LABS: Glucose,Whole Blood 124 mg/dL (75-99)
[2017-11-26 02:00] LABS: Glucose,Whole Blood 96 mg/dL (75-99)
[2017-11-26] MEDS: INSULIN ASPART 100 UNIT/ML 1 ML 10 ML VIAL SQ SCH ×5 (02:02→20:38)
[2017-11-26 07:31] LABS: Glucose,Whole Blood 98 mg/dL (75-99)
[2017-11-26] MEDS: PANTOPRAZOLE 40 MG/10 ML VIAL IV SCH ×2 (08:25→20:38)
[2017-11-26] MEDS: FUROSEMIDE 80 MG TAB PO SCH ×2 (08:25→15:23)
[2017-11-26] MEDS: DILTIAZEM ORAL 60 MG TAB PO SCH ×3 (08:25→20:38)
[2017-11-26] MEDS: CLOPIDOGREL 75 MG TAB PO SCH (08:25)
[2017-11-26] MEDS: DULoxetine HCL 60 MG CAPSULE.DR PO SCH (08:25)
[2017-11-26] MEDS: CHOLECALCIFEROL 1,000 UNIT TAB PO SCH (08:25)
[2017-11-26] MEDS: METOPROLOL SUCCINATE (ER) 50 MG TAB.ER.24H PO SCH (08:25)
[2017-11-26] MEDS: MAGNESIUM OXIDE 400 MG TAB PO SCH (08:26)
[2017-11-26] MEDS: ISOSORBIDE MONONITRATE ER 30 MG TAB.ER.24H PO SCH (08:26)
[2017-11-26] MEDS: AMIODARONE 100 MG TAB PO SCH (08:26)
[2017-11-26] MEDS: GABAPENTIN 300 MG CAP PO SCH ×2 (08:26→20:38)
[2017-11-26] MEDS: DOCUSATE 100 MG CAP PO SCH ×2 (08:26→20:38)
[2017-11-26] MEDS: FERROUS SULFATE 325 MG TAB PO SCH (08:26)
[2017-11-26] MEDS: SEVELAMER 800 MG TAB PO SCH ×3 (08:26→17:37)
[2017-11-26] MEDS: EZETIMIBE 10 MG TAB PO SCH (08:26)
[2017-11-26] MEDS: LORATADINE 10 MG TAB PO SCH (08:26)
[2017-11-26] MEDS: CRANBERRY W/ VIT C PO SCH ×2 (09:13→20:37)
[2017-11-26] MEDS: ACETAMINOPHEN TAB 325 MG TAB PO PRN ×3 (09:14→23:03)
--- NOTE | 2017-11-26 10:21 | P.PN ---
Subjective Progress Note Date: 11/26/17 Principal diagnosis: Acute rectal bleed, acute blood loss anemia, end-stage renal disease on hemodialysis, atherosclerotic heart disease, diabetes, significant fluid retention and weight gain. Hemodialysis access problem. This is a 72-year-old female patient of Dr. Garcia with past medical history of paroxysmal atrial fibrillation, coronary artery disease status post myocardial infarction, has history of triple-vessel disease but was considered high risk for bypass, status post LAD stent in July 2017 and left circumflex in August 2017, chronic diastolic heart failure, diabetes mellitus type 2, hyperlipidemia, hypertension and hypertensive cardiovascular disease, end- stage renal disease on hemodialysis Monday and Monday, peripheral neuropathy. Patient was recently hospitalized at [facility] and discharged on November 15 and treated for sepsis secondary to colitis, possible ischemic colitis, GI bleed with anemia. She was discharged on Flagyl and continued on Plavix, eliquis and baby aspirin. Patient has had significant weakness for the past 2 days with dark stools. She came into [facility] emergency center found to have hemoglobin of 5.8. She is status post 2 units of packed RBCs with hemoglobin of 9.7. Occult stool was positive. Chest x-ray showed no acute cardio pulmonary disease. Patient has been admitted into intensive care unit. She has been seen by Dr. Manrique and underwent hemodialysis yesterday evening. Patient seen by Dr. Hernandez and currently aspirin, Plavix and eliquis are on hold. Plavix will need to be resumed as soon as possible once cleared by GI. Patient has been seen by gastroenterology with plan for conservative management. Dr. Lee is on consult for intensive care management and has cleared her for transfer to [facility]. 11/25: Patient ended up going for colonoscopy with Dr. Robins finding was consistent with transverse colitis with ulcerated area and acute bleeding. The plan at this point to continue conservative management if fail patient will require to go for a partial resection. And have discussion with Dr. Dunn and the family on separate occasion about the possibility and the need for surgical intervention if she keeps having bleeding. In the meanwhile no blood transfusion since yesterday. 11/26: Patient bleeding has been much stable, surgical consultation was obtained yesterday with Dr. dunn. Patient does not require to go for any surgical intervention currently less she continued to bleed surgery might be a better option as a next step. Patient fluid status and weight slightly red more stable she will continue hemodialysis and continue to move more fluid to hemodialysis and before. No need for blood transfusion at this point. Patient also had hemodialysis new Line Put in the left IJ by vascular and she's continue hemodialysis through it. Objective - Vital Signs Vital signs: Vital Signs Temp 97.5 F L 11/26/17 07:16 Pulse 86 11/26/17 07:16 Resp 16 11/26/17 07:16 BP 154/63 11/26/17 07:16 Pulse Ox 99 11/26/17 07:16 Intake & Output 11/25/17 11/26/17 11/26/17 18:59 06:59 18:59 Intake Total 300 Output Total 0 Balance 300 Weight 94.2 kg 110 kg Intake: IV 300 Output: Urine 0 Other: Voiding Method Bedpan Bedpan # Voids 1 1 # Bowel Movements 1 - Exam ROS: CONSTITUTIONAL: Well-developed no acute respiratory distress. Laying in bed no distress or pain EYES: No icterus sclerae, no conjunctivitis. EARS, NOSE, MOUTH, THROAT, and FACE: No sore throat, lymphadenopathy, carotid bruits or deformity. RESPIRATORY: No SOB cough or wheezes. CARDIOVASCULAR: No CP, Palpitation, PND, Orthopnea, or angina. GASTROINTESTINAL: No further rectal bleed today still having mild abdominal discomfort. GENITOURINARY: Still on hemodialysis doesn't make much urine. INTEGUMENT/BREAST: Negative for any muscular injury with mild osteoarthritis.. HEMATOLOGIC/LYMPHATIC: Negative for bleed or purpura. MUSCULOSKELTAL: Negative for Myalgia or arthralgia. NEURLOGICAL: Mild confusion no syncope no dizziness. BEHAVIORAL/PSYCH: Negative. ENDOCRINE: Negative. Physical Exam: General Appearance: Alert, cooperative, no distress, appears stated age. Neck HEENT: Supple, no lymphadenopathy, no thyroid enlargement, no carotid bruits. Lungs: Decreased breaths on bilaterally with fine rhonchi and mild expiratory wheezes. Chest Wall: Decrease expansion with inspiration no tenderness and no deformity was found on exam, no costochondral pain or discomfort. New hemodialysis line is in the left IJ. Heart: Regular rate and rhythm, S1, S2 normal, no murmur, rub or gallop. Back: Symmetric, no curvature, ROM normal, no CVA tenderness. Abdomen: Soft, non-tender, bowel sounds active all four quadrants, no masses, no organomegaly. Slight discomfort in the right upper quadrant and mid abdominal region area. Extremities: Extremities normal, atraumatic, no cyanosis or edema. Pulses: 2+ and symmetric. Skin: Skin color, texture, tugor normal, no rashes or lesions. Neurologic: Alert oriented x3 cranial nerves II through XII intact, no motor deficit, no abnormal balance or gait. - Labs CBC & Chem 7: 11/25/17 07:49 11/25/17 07:49 Labs: Abnormal Lab Results - Last 24 Hours (Table) 11/25/17 11/25/17 11/25/17 Range/Units 07:49 11:53 20:58 Sodium 130 L (137-145) mmol/L Chloride 90 L (98-107) mmol/L BUN 58 H (7-17) mg/dL Creatinine 3.74 H (0.52-1.04) mg/dL Glucose 69 L (74-99) mg/dL POC Glucose (mg/dL) 111 H 124 H (75-99) mg/dL Calcium 7.9 L (8.4-10.2) mg/dL Phosphorus 6.0 H (2.5-4.5) mg/dL Microbiology - Last 24 Hours (Table) 11/24/17 15:55 Urine Culture - Preliminary Urine,Voided Gram Neg Bacilli 11/23/17 12:25 Blood Culture - Preliminary Blood No Growth after 48 hours Assessment and Plan Plan: 1. Acute GI bleed with acute blood loss anemia on top of anemia of chronic disease. No further bleeding since yesterday, patient was seen Dr. norman as a backup for surgery and if continued to bleed might require to have hemicolectomy. 2. Recent admission for sepsis secondary to colitis of the cecum and ascending colon, possible ischemic colitis. No further sign and symptom of sepsis. 3. Chronic diastolic heart failure. Continue hemodialysis per nephrology. Continue home dose of Lasix at 80 mg twice daily. 4. History of moderate aortic stenosis. Continue Imdur 30 mg, Toprol 50 mg. 5. End-stage renal disease on hemodialysis Monday and Monday. Continue sevelamer 800 mg 3 times a day with meals 6. Hypertension cardiovascular disease. Continue amiodarone, Cardizem, Imdur, Toprol-XL. 5. Paroxysmal atrial fibrillation. Continue amiodarone 100 mg once daily, Cardizem 60 mg 3 times a day. Eliquis is on hold. 6. History of myocardial infarction and coronary artery disease status post LAD stent in July 2017 and left circumflex in August 2017. Continue Toprol-XL 50 mg once daily, hold aspirin and Plavix for concern of GI bleed. Cardiology consult appreciated. 7. Diabetes mellitus type 2, insulin requiring. Continue insulin sliding scale. 8. GERD continue Protonix. 9. History of hyperlipidemia intolerant of statins. 10. Diabetic peripheral neuropathy continue gabapentin 300 mg twice daily. 11. Recurrent depression. Continue Cymbalta 60 mg orally once daily 12. Chronic anemia secondary to acute blood loss along with chronic kidney disease. No need for blood transfusion today. Discharge planning: In 48 hours the patient is more stable might to be discharged home or to care home rehab family are agreeable and need to continue watching her CBC on weekly basis for the next few weeks. CODE STATUS full code.
[2017-11-26 10:36] LABS: Anisocytosis Slight; Basophils % (A) 0 %; Eosinophils % (A) 1 %; HCT 26.7 % (34.0-46.0); HGB 8.2 gm/dL (11.4-16.0); Hypochromasia Slight; Lymphocytes # (A) 0.6 k/uL (1.0-4.8); Lymphocytes % (A) 10 %; MCH 28.5 pg (25.0-35.0); MCHC 30.7 g/dL (31.0-37.0); MCV 92.9 fL (80.0-100.0); Mean Platelet Volume 7.9; Monocytes # (A) 0.5 k/uL (0-1.0); Monocytes % (A) 8 %; Neutrophils # (A) 4.6 k/uL (1.3-7.7); Neutrophils % (A) 77 %; Platelet Count 136 k/uL (150-450); RBC 2.88 m/uL (3.80-5.40); RDW 18.5 % (11.5-15.5); WBC 5.9 k/uL (3.8-10.6)
[2017-11-26 10:49] LABS: Albumin 2.8 g/dL (3.5-5.0); Calcium 8.2 mg/dL (8.4-10.2); Phosphorus 5.9 mg/dL (2.5-4.5); Potassium 3.8 mmol/L (3.5-5.1); Total Bilirubin 0.7 mg/dL (0.2-1.3); Total Protein 5.1 g/dL (6.3-8.2)
--- NOTE | 2017-11-26 10:54 | P.PN ---
Subjective Progress Note Date: 11/26/17 Principal diagnosis: GI bleeding Patient very sleepy today. She states that because of the dialysis catheter placement yesterday. Hemoglobin today 8.2 from 9.3. Denies rectal bleeding. Objective - Vital Signs Vital signs: Vital Signs Temp 97.5 F L 11/26/17 07:16 Pulse 86 11/26/17 07:16 Resp 16 11/26/17 08:00 BP 154/63 11/26/17 07:16 Pulse Ox 99 11/26/17 07:16 Intake & Output 11/25/17 11/26/17 11/26/17 18:59 06:59 18:59 Intake Total 300 Output Total 0 Balance 300 Weight 94.2 kg 110 kg Intake: IV 300 Output: Urine 0 Other: Voiding Method Bedpan Bedpan Bedpan # Voids 1 1 # Bowel Movements 1 - Exam Abdomen: Soft, nontender, nondistended - Labs CBC & Chem 7: 11/26/17 10:05 11/26/17 10:05 Labs: Abnormal Lab Results - Last 24 Hours (Table) 11/25/17 11/25/17 11/26/17 Range/Units 11:53 20:58 10:05 RBC (3.80-5.40) m/uL Hgb (11.4-16.0) gm/dL Hct (34.0-46.0) % MCHC (31.0-37.0) g/dL RDW (11.5-15.5) % Plt Count (150-450) k/uL Lymphocytes # (1.0-4.8) k/uL BUN 29 H (7-17) mg/dL Creatinine 3.25 H (0.52-1.04) mg/dL Glucose 106 H (74-99) mg/dL POC Glucose (mg/dL) 111 H 124 H (75-99) mg/dL Calcium 8.2 L (8.4-10.2) mg/dL Phosphorus 5.9 H (2.5-4.5) mg/dL Total Protein 5.1 L (6.3-8.2) g/dL Albumin 2.8 L (3.5-5.0) g/dL 11/26/17 Range/Units 10:05 RBC 2.88 L (3.80-5.40) m/uL Hgb 8.2 L (11.4-16.0) gm/dL Hct 26.7 L (34.0-46.0) % MCHC 30.7 L (31.0-37.0) g/dL RDW 18.5 H (11.5-15.5) % Plt Count 136 L (150-450) k/uL Lymphocytes # 0.6 L (1.0-4.8) k/uL BUN (7-17) mg/dL Creatinine (0.52-1.04) mg/dL Glucose (74-99) mg/dL POC Glucose (mg/dL) (75-99) mg/dL Calcium (8.4-10.2) mg/dL Phosphorus (2.5-4.5) mg/dL Total Protein (6.3-8.2) g/dL Albumin (3.5-5.0) g/dL Microbiology - Last 24 Hours (Table) 11/24/17 15:55 Urine Culture - Preliminary Urine,Voided Gram Neg Bacilli 11/23/17 12:25 Blood Culture - Preliminary Blood No Growth after 48 hours Assessment and Plan (1) Lower GI hemorrhage Narrative/Plan: Continue to follow hemoglobin. Advance diet as tolerated. Await biopsies results from colonoscopy. Current Visit: Yes Status: Acute Code(s): K92.2 - GASTROINTESTINAL HEMORRHAGE, UNSPECIFIED SNOMED Code(s): 95177728
--- NOTE | 2017-11-26 11:04 | P.PN ---
Subjective Progress Note Date: 11/26/17 Principal diagnosis: Patient is a 72-year-old female seen in renal consultation for end-stage renal disease. She is maintained on hemodialysis on a Monday schedule. Patient presented due to having dark stools for the last 2 days. She was maintained on aspirin Plavix as well as Eliquis. Her hemoglobin was 5.8 on admission and did improve to 11.4 after 2 units of blood transfusion. She had colonoscopy done and revealed isolated ulcerations measuring between 2- 4 cm in size in the cecum, ascending colon and in the transverse colon all consistent with focal ischemic colitis with normal-appearing intervening mucosa. No evidence of colorectal neoplasia Her fistula clotted therefore She had a P cath on her left side, as attempt on the right side was unsuccessful and had her dialysis yesterday with 3 L taken off. She denies any fevr chills, abd pain is resolved, no GI bleed. No CP,says her blood pressure does complain of poor appetite though. Objective - Vital Signs Vital signs: Vital Signs Temp 97.5 F L 11/26/17 07:16 Pulse 86 11/26/17 07:16 Resp 16 11/26/17 08:00 BP 154/63 11/26/17 07:16 Pulse Ox 99 11/26/17 07:16 Intake & Output 11/25/17 11/26/17 11/26/17 18:59 06:59 18:59 Intake Total 300 Output Total 0 Balance 300 Weight 94.2 kg 110 kg Intake: IV 300 Output: Urine 0 Other: Voiding Method Bedpan Bedpan Bedpan # Voids 1 1 # Bowel Movements 1 She is very sleepy wakes up answer questions but goes right back to sleep. Denies any complaints other than poor appetite HEENT exam no JVP neck is supple no facial asymmetry Lungs are clear to auscultation although her air entry is less than optimal Heart sounds are unremarkable for any murmur rub gallop Abdomen soft nontender nondistended Extremity exam was no edema edema, her muscle follow and size is very small compared to her central obesity. Neurologically sleepy but arousable and appropriate moves all her extremities no asterixis noted - Labs CBC & Chem 7: 11/26/17 10:05 11/26/17 10:05 Labs: Abnormal Lab Results - Last 24 Hours (Table) 11/25/17 11/25/17 11/26/17 Range/Units 11:53 20:58 10:05 RBC (3.80-5.40) m/uL Hgb (11.4-16.0) gm/dL Hct (34.0-46.0) % MCHC (31.0-37.0) g/dL RDW (11.5-15.5) % Plt Count (150-450) k/uL Lymphocytes # (1.0-4.8) k/uL BUN 29 H (7-17) mg/dL Creatinine 3.25 H (0.52-1.04) mg/dL Glucose 106 H (74-99) mg/dL POC Glucose (mg/dL) 111 H 124 H (75-99) mg/dL Calcium 8.2 L (8.4-10.2) mg/dL Phosphorus 5.9 H (2.5-4.5) mg/dL Total Protein 5.1 L (6.3-8.2) g/dL Albumin 2.8 L (3.5-5.0) g/dL 11/26/17 Range/Units 10:05 RBC 2.88 L (3.80-5.40) m/uL Hgb 8.2 L (11.4-16.0) gm/dL Hct 26.7 L (34.0-46.0) % MCHC 30.7 L (31.0-37.0) g/dL RDW 18.5 H (11.5-15.5) % Plt Count 136 L (150-450) k/uL Lymphocytes # 0.6 L (1.0-4.8) k/uL BUN (7-17) mg/dL Creatinine (0.52-1.04) mg/dL Glucose (74-99) mg/dL POC Glucose (mg/dL) (75-99) mg/dL Calcium (8.4-10.2) mg/dL Phosphorus (2.5-4.5) mg/dL Total Protein (6.3-8.2) g/dL Albumin (3.5-5.0) g/dL Microbiology - Last 24 Hours (Table) 11/24/17 15:55 Urine Culture - Preliminary Urine,Voided Gram Neg Bacilli 11/23/17 12:25 Blood Culture - Preliminary Blood No Growth after 48 hours Assessment and Plan Assessment: 1. ESRD on dialysis Monday. 2. Clotted AV fistula 3. Permacath placed 11/25/2017 on the left side. 4. Admitted with GI bleed secondary to ischemic colitis status post colonoscopy. Hemoglobin is 9.3 and stable. 5. Diabetes mellitus. 6. Atrial fibrillation. 7. Anemia of chronic illness and chronic kidney disease, and including GI bleed. Rule out iron deficiency. Hemoglobin is 8.2. On darbepoetin 8. Gram-negative bacilli urinary tract infection Plan: 1. Monitor for GI bleed, if stable she can be discharged per primary physician. 2. Dr. Levy has indicated that she will need repair for her clotted fistula and this needs to be done sooner than later. 3.For her urinary tract infection we will start her on Cipro 500 daily for 5 days
[2017-11-26] MEDS ORDERED: CIPROFLOXACIN HCL 500 MG TAB PO SCH (11:15)
[2017-11-26 12:32] LABS: Glucose,Whole Blood 116 mg/dL (75-99)
[2017-11-26 14:27] VITALS: RESP 18
--- NOTE | 2017-11-26 15:51 | PN ---
PROGRESS NOTE Mrs. Corrigan is a 72-year-old female known history of coronary artery disease, history of paroxysmal atrial fibrillation, end-stage renal disease on hemodialysis, who presented with GI bleeding. She had placement of dialysis catheter yesterday. She is feeling better today. She is denying chest pain. Her breathing is stable. She denies any dizziness palpitation. She denies any nausea. She has been started back on the Plavix and has tolerated. She underwent dialysis yesterday. She continues to be at this time on amiodarone 100 mg daily, Plavix 75 mg daily, diltiazem 60 mg 3 times a day, Zetia 10 mg daily, isosorbide mononitrate 30 mg daily, metoprolol succinate 50 mg daily, midodrine as needed, Protonix. PHYSICAL EXAMINATION: Blood pressure running in the 130s with a heart in the 80s. LUNGS: Clear. HEART: Regular rate and rhythm. S1, S2. No S3 with systolic ejection murmur heard at the base. No diastolic murmur. ABDOMEN: Soft, obese, nontender. EXTREMITIES: No significant edema. LAB DATA: Lab data revealed a hemoglobin of 8.2. BUN and creatinine is 29 and 3.25. IMPRESSION: 1. Recent episode of GI bleeding. Patient was on the triple anticoagulation. 2. History of coronary artery disease, status post multivessel stenting. 3. Moderate aortic stenosis. 4. End-stage renal disease. 5. Paroxysmal atrial fibrillation. RECOMMENDATION: We will continue to hold the Eliquis. If it is agreeable with the surgical and GI service, then I would recommend to re-initiate treatment with aspirin 81 mg daily. We will follow her blood pressure and further adjustment will be made depending on her progress. MMODL / IJN: [id number] /
[2017-11-26 17:06] LABS: Glucose,Whole Blood 211 mg/dL (75-99)
[2017-11-26] MEDS: cefTRIAXone IN SWFI 1,000 MG/10 ML SYRINGE IVP SCH (17:37)
--- NOTE | 2017-11-26 19:12 | PN ---
PROGRESS NOTE Patient is a 72-year-old white female admitted to the hospital with GI bleed. She had colonoscopy and colonoscopy revealed ulcerations in the cecum, ascending colon, and transverse colon consistent with focal ischemic colitis. Biopsies are done which are still pending. The patient any further bleeding. She just still has some vague right lower quadrant abdominal pain. No fever, chills, or night sweats. PHYSICAL EXAMINATION: She appears comfortable. No apparent distress. VITAL SIGNS: Stable. Blood pressure 133/59, pulse rate 80, temperature 98.5. HEENT examination unremarkable. Conjunctivae pink. Sclerae anicteric. Oral cavity, no lesions. NECK: No JVD or lymph node enlargement. Chest was clear to auscultation. positive. No organomegaly. EXTREMITIES: No pedal edema. SKIN: No rashes. NEUROLOGIC: Alert and oriented x3. No focal deficits. LABS: Labs from today: WBC 5.9, hemoglobin 8.2, platelets are normal. Basic metabolic panel is within normal limits. BUN 29, creatinine 3.25. IMPRESSION: Acute lower GI bleed, status post colonoscopy yesterday that revealed ulceration of the cecum, ascending colon, as well as in transverse colon consistent with focal ischemic colitis. Currently the bleeding has resolved. Hemoglobin remains stable. RECOMMENDATIONS: 1. Biopsy results. 2. Advance to renal diet. 3. We will follow her closely during the hospital stay. Thank you for this consultation. MMODL / IJN: [id number] /
[2017-11-26 20:27] LABS: Glucose,Whole Blood 231 mg/dL (75-99)
[2017-11-27 02:16] LABS: Glucose,Whole Blood 143 mg/dL (75-99)
[2017-11-27] MEDS: INSULIN ASPART 100 UNIT/ML 1 ML 10 ML VIAL SQ SCH ×3 (02:42→13:01)
[2017-11-27 06:27] VITALS: BP 133/60; PULSE 86; TEMP 97
[2017-11-27 07:18] LABS: Glucose,Whole Blood 143 mg/dL (75-99)
[2017-11-27] MEDS: PANTOPRAZOLE 40 MG/10 ML VIAL IV SCH (08:16)
[2017-11-27] MEDS: cefTRIAXone IN SWFI 1,000 MG/10 ML SYRINGE IVP SCH (08:16)
[2017-11-27] MEDS: ISOSORBIDE MONONITRATE ER 30 MG TAB.ER.24H PO SCH (08:16)
[2017-11-27] MEDS: FUROSEMIDE 80 MG TAB PO SCH ×2 (08:16→15:41)
[2017-11-27] MEDS: SEVELAMER 800 MG TAB PO SCH ×2 (08:16→13:01)
[2017-11-27] MEDS: CHOLECALCIFEROL 1,000 UNIT TAB PO SCH (08:17)
[2017-11-27] MEDS: GABAPENTIN 300 MG CAP PO SCH (08:17)
[2017-11-27] MEDS: EZETIMIBE 10 MG TAB PO SCH (08:17)
[2017-11-27] MEDS: MAGNESIUM OXIDE 400 MG TAB PO SCH (08:17)
[2017-11-27] MEDS: CLOPIDOGREL 75 MG TAB PO SCH (08:17)
[2017-11-27] MEDS: METOPROLOL SUCCINATE (ER) 50 MG TAB.ER.24H PO SCH (08:18)
[2017-11-27] MEDS: DOCUSATE 100 MG CAP PO SCH (08:18)
[2017-11-27] MEDS: DILTIAZEM ORAL 60 MG TAB PO SCH ×2 (08:18→15:41)
[2017-11-27] MEDS: CRANBERRY W/ VIT C PO SCH (08:18)
[2017-11-27] MEDS: DULoxetine HCL 60 MG CAPSULE.DR PO SCH (08:18)
[2017-11-27] MEDS: LORATADINE 10 MG TAB PO SCH (08:19)
[2017-11-27] MEDS: FERROUS SULFATE 325 MG TAB PO SCH (08:19)
[2017-11-27] MEDS: AMIODARONE 100 MG TAB PO SCH (08:32)
--- NOTE | 2017-11-27 08:36 | IR ---
EXAMINATION TYPE: IR cvc insert central tunneled DATE OF EXAM: 11/25/2017 COMPARISON: NONE HISTORY: Peripheral vascular occlusive disease. Fluoroscopy was provided to the referring clinician. 1.2 minutes of fluoroscopy time provided.
[2017-11-27 09:45] LABS: Anisocytosis Slight; Basophils % (A) 1 %; Eosinophils # (A) 0.1 k/uL (0-0.7); Eosinophils % (A) 2 %; HGB 8.5 gm/dL (11.4-16.0); Hypochromasia Moderate; Lymphocytes # (A) 0.8 k/uL (1.0-4.8); Lymphocytes % (A) 13 %; MCH 29.7 pg (25.0-35.0); MCHC 31.6 g/dL (31.0-37.0); Macrocytosis Slight; Mean Platelet Volume 7.6; Monocytes # (A) 0.6 k/uL (0-1.0); Monocytes % (A) 9 %; Neutrophils # (A) 4.4 k/uL (1.3-7.7); Neutrophils % (A) 71 %; Platelet Count 130 k/uL (150-450); RBC 2.87 m/uL (3.80-5.40); RDW 18.2 % (11.5-15.5); WBC 6.2 k/uL (3.8-10.6)
[2017-11-27 09:59] LABS: Calcium 8.2 mg/dL (8.4-10.2); Magnesium 2.1 mg/dL (1.6-2.3); Phosphorus 6.6 mg/dL (2.5-4.5); Potassium 4.2 mmol/L (3.5-5.1); Total Bilirubin 0.5 mg/dL (0.2-1.3); Total Protein 5.4 g/dL (6.3-8.2)
--- NOTE | 2017-11-27 10:13 | P.PN ---
Subjective Patient is seen in follow-up for end-stage renal disease. She is maintained on hemodialysis on a Monday schedule via permacath. Her AV graft clotted this admission. Currently resting in bed. Hemoglobin 8.5 today. No active bleeding. Denies chest pain or shortness of breath. Vital signs are stable. General: The patient appeared well nourished and normally developed. HEENT: Head exam is unremarkable. Neck is without jugular venous distension. LUNGS: Lungs are clear to auscultation and percussion. Breath sounds decreased. HEART: Rate and Rhythm are regular. First and second heart sounds normal. No murmurs, rubs or gallops. ABDOMEN: Abdominal exam reveals normal bowel sounds. Non-tender and non- distended. No evidence of peritonitis. EXTREMITITES: No clubbing, cyanosis, or edema. Objective - Vital Signs Vital signs: Vital Signs Temp 97.0 F L 11/27/17 06:26 Pulse 86 11/27/17 06:26 Resp 18 11/26/17 23:00 BP 133/60 11/27/17 06:26 Pulse Ox 97 11/27/17 07:48 Intake & Output 11/26/17 11/27/17 11/27/17 18:59 06:59 18:59 Intake Total 650 Balance 650 Weight 120 kg Intake: Oral 650 Other: Voiding Method Bedpan Bedpan # Voids 0 0 # Bowel Movements 0 - Labs CBC & Chem 7: 11/27/17 08:43 11/27/17 08:43 Labs: Abnormal Lab Results - Last 24 Hours (Table) 11/26/17 11/26/17 11/26/17 Range/Units 10:05 10:05 12:26 RBC 2.88 L (3.80-5.40) m/uL Hgb 8.2 L (11.4-16.0) gm/dL Hct 26.7 L (34.0-46.0) % MCHC 30.7 L (31.0-37.0) g/dL RDW 18.5 H (11.5-15.5) % Plt Count 136 L (150-450) k/uL Lymphocytes # 0.6 L (1.0-4.8) k/uL Sodium (137-145) mmol/L Chloride (98-107) mmol/L BUN 29 H (7-17) mg/dL Creatinine 3.25 H (0.52-1.04) mg/dL Glucose 106 H (74-99) mg/dL POC Glucose (mg/dL) 116 H (75-99) mg/dL Calcium 8.2 L (8.4-10.2) mg/dL Phosphorus 5.9 H (2.5-4.5) mg/dL Total Protein 5.1 L (6.3-8.2) g/dL Albumin 2.8 L (3.5-5.0) g/dL 11/26/17 11/26/17 11/27/17 Range/Units 17:03 20:14 01:51 RBC (3.80-5.40) m/uL Hgb (11.4-16.0) gm/dL Hct (34.0-46.0) % MCHC (31.0-37.0) g/dL RDW (11.5-15.5) % Plt Count (150-450) k/uL Lymphocytes # (1.0-4.8) k/uL Sodium (137-145) mmol/L Chloride (98-107) mmol/L BUN (7-17) mg/dL Creatinine (0.52-1.04) mg/dL Glucose (74-99) mg/dL POC Glucose (mg/dL) 211 H 231 H 143 H (75-99) mg/dL Calcium (8.4-10.2) mg/dL Phosphorus (2.5-4.5) mg/dL Total Protein (6.3-8.2) g/dL Albumin (3.5-5.0) g/dL 11/27/17 11/27/17 11/27/17 Range/Units 07:10 08:43 08:43 RBC 2.87 L (3.80-5.40) m/uL Hgb 8.5 L (11.4-16.0) gm/dL Hct 27.0 L (34.0-46.0) % MCHC (31.0-37.0) g/dL RDW 18.2 H (11.5-15.5) % Plt Count 130 L (150-450) k/uL Lymphocytes # 0.8 L (1.0-4.8) k/uL Sodium 135 L (137-145) mmol/L Chloride 95 L (98-107) mmol/L BUN 38 H (7-17) mg/dL Creatinine 4.35 H (0.52-1.04) mg/dL Glucose 157 H (74-99) mg/dL POC Glucose (mg/dL) 143 H (75-99) mg/dL Calcium 8.2 L (8.4-10.2) mg/dL Phosphorus 6.6 H (2.5-4.5) mg/dL Total Protein 5.4 L (6.3-8.2) g/dL Albumin 3.0 L (3.5-5.0) g/dL Microbiology - Last 24 Hours (Table) 11/24/17 15:55 Urine Culture - Final Urine,Voided Escherichia coli 11/23/17 12:25 Blood Culture - Preliminary Blood No Growth after 72 hours Assessment and Plan Plan: Assessment: 1. End-stage renal disease maintained on hemodialysis on a Monday schedule via permacath. AV graft clotted this admission. 2. Acute blood loss anemia with concern for GI bleed status post blood transfusion and DDAVP this admission. Hemoglobin 8.7 this morning. Anticoagulation held. Status post EGD and colonoscopy this admission which revealed ulcerations in the cecum, ascending colon and transverse colon suggestive of ischemic colitis. 3. 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 Phosphorus at goal. 4. Hypertension with chronic kidney disease. Controlled. 5. History of atrial fibrillation. Currently rate controlled. 6. Diabetes mellitus. 7. E. coli UTI. Plan: Hemodialysis tomorrow. Maintain Aranesp. Monitor hemoglobin closely and transfuse as needed.
[2017-11-27 11:57] LABS: Glucose,Whole Blood 283 mg/dL (75-99)
--- NOTE | 2017-11-27 12:37 | P.PN ---
Subjective Progress Note Date: 11/27/17 Principal diagnosis: GI bleeding Patient doing well today. Less drowsy. Tolerating diet. No stools today or yesterday. Hemoglobin stable. Objective - Vital Signs Vital signs: Vital Signs Temp 97.0 F L 11/27/17 06:26 Pulse 86 11/27/17 06:26 Resp 18 11/26/17 23:00 BP 133/60 11/27/17 06:26 Pulse Ox 97 11/27/17 07:48 Intake & Output 11/26/17 11/27/17 11/27/17 18:59 06:59 18:59 Intake Total 650 200 Balance 650 200 Weight 120 kg Intake: Oral 650 200 Other: Voiding Method Bedpan Bedpan # Voids 0 0 # Bowel Movements 0 - Exam Abdomen: Soft, nondistended, nontender - Labs CBC & Chem 7: 11/27/17 08:43 11/27/17 08:43 Labs: Abnormal Lab Results - Last 24 Hours (Table) 11/26/17 11/26/17 11/27/17 Range/Units 17:03 20:14 01:51 RBC (3.80-5.40) m/uL Hgb (11.4-16.0) gm/dL Hct (34.0-46.0) % RDW (11.5-15.5) % Plt Count (150-450) k/uL Lymphocytes # (1.0-4.8) k/uL Sodium (137-145) mmol/L Chloride (98-107) mmol/L BUN (7-17) mg/dL Creatinine (0.52-1.04) mg/dL Glucose (74-99) mg/dL POC Glucose (mg/dL) 211 H 231 H 143 H (75-99) mg/dL Calcium (8.4-10.2) mg/dL Phosphorus (2.5-4.5) mg/dL Total Protein (6.3-8.2) g/dL Albumin (3.5-5.0) g/dL 11/27/17 11/27/17 11/27/17 Range/Units 07:10 08:43 08:43 RBC 2.87 L (3.80-5.40) m/uL Hgb 8.5 L (11.4-16.0) gm/dL Hct 27.0 L (34.0-46.0) % RDW 18.2 H (11.5-15.5) % Plt Count 130 L (150-450) k/uL Lymphocytes # 0.8 L (1.0-4.8) k/uL Sodium 135 L (137-145) mmol/L Chloride 95 L (98-107) mmol/L BUN 38 H (7-17) mg/dL Creatinine 4.35 H (0.52-1.04) mg/dL Glucose 157 H (74-99) mg/dL POC Glucose (mg/dL) 143 H (75-99) mg/dL Calcium 8.2 L (8.4-10.2) mg/dL Phosphorus 6.6 H (2.5-4.5) mg/dL Total Protein 5.4 L (6.3-8.2) g/dL Albumin 3.0 L (3.5-5.0) g/dL 11/27/17 Range/Units 11:41 RBC (3.80-5.40) m/uL Hgb (11.4-16.0) gm/dL Hct (34.0-46.0) % RDW (11.5-15.5) % Plt Count (150-450) k/uL Lymphocytes # (1.0-4.8) k/uL Sodium (137-145) mmol/L Chloride (98-107) mmol/L BUN (7-17) mg/dL Creatinine (0.52-1.04) mg/dL Glucose (74-99) mg/dL POC Glucose (mg/dL) 283 H (75-99) mg/dL Calcium (8.4-10.2) mg/dL Phosphorus (2.5-4.5) mg/dL Total Protein (6.3-8.2) g/dL Albumin (3.5-5.0) g/dL Microbiology - Last 24 Hours (Table) 11/24/17 15:55 Urine Culture - Final Urine,Voided Escherichia coli 11/23/17 12:25 Blood Culture - Preliminary Blood No Growth after 72 hours Assessment and Plan (1) Lower GI hemorrhage Narrative/Plan: Continue supportive care. Monitor hemoglobin. No surgical intervention planned. We'll sign off. Please call if needed. Current Visit: Yes Status: Acute Code(s): K92.2 - GASTROINTESTINAL HEMORRHAGE, UNSPECIFIED SNOMED Code(s): 39064109
[2017-11-27 13:44] LABS: Anisocytosis Slight; Hypochromasia Slight; MCH 30.2 pg (25.0-35.0); MCHC 32.2 g/dL (31.0-37.0); MCV 93.7 fL (80.0-100.0); Mean Platelet Volume 7.2; Platelet Count 119 k/uL (150-450); RBC 2.66 m/uL (3.80-5.40)
--- NOTE | 2017-11-27 13:53 | P.PN ---
Subjective Mrs. Corrigan is seen and examined resting comfortably in bed. Past medical history significant for paroxysmal atrial fibrillation, recent angioplasty of mid-LAD and circumflex in August 2017, end stage renal disease on hemodialysis and recent GI bleeding. She underwent upper and lower endoscopy with Dr. Robins 11/25 which revealed isolated ulcerations noted in cecum, ascending colon and transverse colon consistent with ischemic collitis. She denies chest pain, shortness of breath, palpitations or dizziness. Blood pressure 133/60 heart rate 86 afebrile maintaining oxygen saturation on nasal cannula. Laboratory data reviewed, hemoglobin 8.5, platelets 130, sodium 135, potassium 4.2, magnesium 2.1, creatinine 4.35. Dialysis is Monday. Per nursing staff, bright red blood noted on dressing surround dialysis catheter this morning. Dressing changed on maintenance technician 2nd shift as well for saturation. Objective - Vital Signs Vital signs: Vital Signs Temp 97.0 F L 11/27/17 06:26 Pulse 86 11/27/17 06:26 Resp 18 11/26/17 23:00 BP 133/60 11/27/17 06:26 Pulse Ox 97 11/27/17 07:48 Intake & Output 11/26/17 11/27/17 11/27/17 18:59 06:59 18:59 Intake Total 650 200 Balance 650 200 Weight 120 kg Intake: Oral 650 200 Other: Voiding Method Bedpan Bedpan # Voids 0 0 # Bowel Movements 0 - Exam GENERAL: Well-appearing, well-nourished and in no acute distress. NECK: Supple without JVD or thyromegaly. LUNGS: Breath sounds clear to auscultation bilaterally. Respiration equal and unlabored. No wheezes, rales or rhonchi. HEART: Regular rate and rhythm with systolic ejection murmur at the base, no rubs or gallops. S1 and S2 heard. EXTREMITIES: Normal range of motion, no edema. No clubbing or cyanosis. Peripheral pulses intact. - Labs CBC & Chem 7: 11/27/17 08:43 11/27/17 08:43 Labs: Abnormal Lab Results - Last 24 Hours (Table) 11/26/17 11/26/17 11/27/17 Range/Units 17:03 20:14 01:51 RBC (3.80-5.40) m/uL Hgb (11.4-16.0) gm/dL Hct (34.0-46.0) % RDW (11.5-15.5) % Plt Count (150-450) k/uL Lymphocytes # (1.0-4.8) k/uL Sodium (137-145) mmol/L Chloride (98-107) mmol/L BUN (7-17) mg/dL Creatinine (0.52-1.04) mg/dL Glucose (74-99) mg/dL POC Glucose (mg/dL) 211 H 231 H 143 H (75-99) mg/dL Calcium (8.4-10.2) mg/dL Phosphorus (2.5-4.5) mg/dL Total Protein (6.3-8.2) g/dL Albumin (3.5-5.0) g/dL 11/27/17 11/27/17 11/27/17 Range/Units 07:10 08:43 08:43 RBC 2.87 L (3.80-5.40) m/uL Hgb 8.5 L (11.4-16.0) gm/dL Hct 27.0 L (34.0-46.0) % RDW 18.2 H (11.5-15.5) % Plt Count 130 L (150-450) k/uL Lymphocytes # 0.8 L (1.0-4.8) k/uL Sodium 135 L (137-145) mmol/L Chloride 95 L (98-107) mmol/L BUN 38 H (7-17) mg/dL Creatinine 4.35 H (0.52-1.04) mg/dL Glucose 157 H (74-99) mg/dL POC Glucose (mg/dL) 143 H (75-99) mg/dL Calcium 8.2 L (8.4-10.2) mg/dL Phosphorus 6.6 H (2.5-4.5) mg/dL Total Protein 5.4 L (6.3-8.2) g/dL Albumin 3.0 L (3.5-5.0) g/dL 11/27/17 Range/Units 11:41 RBC (3.80-5.40) m/uL Hgb (11.4-16.0) gm/dL Hct (34.0-46.0) % RDW (11.5-15.5) % Plt Count (150-450) k/uL Lymphocytes # (1.0-4.8) k/uL Sodium (137-145) mmol/L Chloride (98-107) mmol/L BUN (7-17) mg/dL Creatinine (0.52-1.04) mg/dL Glucose (74-99) mg/dL POC Glucose (mg/dL) 283 H (75-99) mg/dL Calcium (8.4-10.2) mg/dL Phosphorus (2.5-4.5) mg/dL Total Protein (6.3-8.2) g/dL Albumin (3.5-5.0) g/dL Microbiology - Last 24 Hours (Table) 11/24/17 15:55 Urine Culture - Final Urine,Voided Escherichia coli 11/23/17 12:25 Blood Culture - Preliminary Blood No Growth after 72 hours Assessment and Plan Assessment: ASSESSMENT GI bleed, patient was on triple antiplatelet therapy Recent history of angioplasty August 2017 Moderate aortic stenosis Paroxysmal atrial fibrillation, currently maintaining sinus mechanism End stage renal disease on hemodialysis PLAN Continue to hold Eliquis. Plavix has been resumed and awaiting GI recommendation for resuming aspirin. Stable otherwise from a cardiac perspective. Follow up with Dr. Combs in 2 weeks. Nurse Practitioner note has been reviewed, I agree with a documented findings and plan of care. Patient was seen and examined.
--- NOTE | 2017-11-27 20:01 | PN ---
PROGRESS NOTE DATE OF SERVICE: 11/27/2017 The patient is a 72-year-old pleasant white female admitted to hospital with acute lower GI bleed. She underwent a colonoscopy 2 days ago and was noted to have isolated ulcerations of the cecum, ascending colon, and transverse colon. Biopsies of the chest were pending at the time of this dictation. Since the colonoscopy, she has been doing well. She denies any further bleeding. She still has mild tenderness in the right lower quadrant area. She is tolerating a regular diet. No nausea or vomiting. PHYSICAL EXAMINATION: Appears comfortable in no apparent distress. VITAL SIGNS: Stable. Blood pressure is 133/70, pulse rate 82, temperature 97. HEENT examination unremarkable. Conjunctivae pink. Sclerae anicteric. Oral cavity no lesions. Neck no jugular venous distention or lymph node enlargement. Chest was clear to auscultation. HEART: Regular rate and rhythm. ABDOMEN: Obese. Mild tenderness in the right lower quadrant area. Extremities: No pedal edema. Skin no rashes. NEUROLOGIC: Alert and oriented x3. No focal deficits. LABORATORY DATA: WBC 6, hemoglobin 8, platelets 119. Basic metabolic panel is within normal limits. BUN is 38, creatinine 4.35. IMPRESSION: 1. Acute lower gastrointestinal bleed, resolved. EGD and colonoscopy 2 days ago revealed some gastritis and isolated ulcerations in the cecum, ascending colon, transverse colon, possibly ischemic colitis. Biopsies are still pending and has no recurrent bleeding. Hemoglobin remained stable. 2. End-stage renal disease on hemodialysis. RECOMMENDATIONS: 1. Continue with regular diet. 2. Await biopsy results. 3. The patient can be discharged home today. 4. Aspirin and Plavix can be resumed at the present time. 5. Follow up in office in 2 weeks. MMODL / IJN: [id number] /
--- NOTE | 2017-11-29 12:00 | P.DS ---
Providers Date of admission: 11/23/17 15:04 Expected date of discharge: 11/27/17 Attending physician: Neville Robertson Consults: 11/23/17 15:04 Consult Physician Stat Consulting Provider: Slim Lee Consult Reason/Comments: critical care Do you want consulting provider notified?: Yes Consult Physician Stat Consulting Provider: Tc Manrique Consult Reason/Comments: renal failure Do you want consulting provider notified?: Yes Consult Physician Stat Consulting Provider: Jimmy Vieyra Consult Reason/Comments: lower gi hemorrhage Do you want consulting provider notified?: Yes 11/23/17 17:50 Consult Physician Routine Consulting Provider: Monique Hernandez Consult Reason/Comments: recent admission with recent elevated troponins Do you want consulting provider notified?: Yes, Notify in am 11/25/17 10:12 Consult Physician Routine Consulting Provider: Gagan Michelle Consult Reason/Comments: Colitis with recurrent GI Bleed Do you want consulting provider notified?: Yes 11/25/17 10:58 Consult Physician Stat Consulting Provider: Montez Singer Consult Reason/Comments: fistula clotted, needs hemodialysis access Do you want consulting provider notified?: Yes [facility]: This is a 72-year-old female patient of Dr. Garcia with past medical history of paroxysmal atrial fibrillation, coronary artery disease status post myocardial infarction, has history of triple-vessel disease but was considered high risk for bypass, status post LAD stent in July 2017 and left circumflex in August 2017, chronic diastolic heart failure, diabetes mellitus type 2, hyperlipidemia, hypertension and hypertensive cardiovascular disease, end- stage renal disease on hemodialysis Monday and Monday, peripheral neuropathy. Patient was recently hospitalized at [facility] and discharged on November 15 and treated for sepsis secondary to colitis, possible ischemic colitis, GI bleed with anemia. She was discharged on Flagyl and continued on Plavix, eliquis and baby aspirin. Patient has had significant weakness for the past 2 days with dark stools. She came into [facility] found to have hemoglobin of 5.8. She is status post 2 units of packed RBCs with hemoglobin of 9.7. Occult stool was positive. Chest x-ray showed no acute cardio pulmonary disease. Patient has been admitted into intensive care unit. She has been seen by Dr. Manrique and underwent hemodialysis yesterday evening. Patient seen by Dr. Hernandez and currently aspirin, Plavix and eliquis are on hold. Plavix will need to be resumed as soon as possible once cleared by GI. Patient has been seen by gastroenterology with plan for conservative management. Dr. Lee is on consult for intensive care management and has cleared her for transfer to [facility]. 11/25: Patient ended up going for colonoscopy with Dr. Robins finding was consistent with transverse colitis with ulcerated area and acute bleeding. The plan at this point to continue conservative management if fail patient will require to go for a partial resection. And have discussion with Dr. Michelle and the family on separate occasion about the possibility and the need for surgical intervention if she keeps having bleeding. In the meanwhile no blood transfusion since yesterday. 11/26: Patient bleeding has been much stable, surgical consultation was obtained yesterday with Dr. michelle. Patient does not require to go for any surgical intervention currently less she continued to bleed surgery might be a better option as a next step. Patient fluid status and weight slightly red more stable she will continue hemodialysis and continue to move more fluid to hemodialysis and before. No need for blood transfusion at this point. Patient also had hemodialysis new Line Put in the left IJ by vascular and she's continue hemodialysis through it. 11/29: She has been cleared for discharge by consultants. Patient will be discharged home in stable condition. Daughter is at bedside and is agreeable. Patient to follow her normal schedule of hemodialysis which will be resumed tomorrow. Discharge diagnosis: 1. Acute GI bleed with acute blood loss anemia on top of anemia of chronic disease. 2. Recent admission for sepsis secondary to colitis of the cecum and ascending colon, possible ischemic colitis. No further sign and symptom of sepsis. 3. Chronic diastolic heart failure. 4. History of moderate aortic stenosis. 5. End-stage renal disease on hemodialysis Monday and Monday. 6. Hypertension cardiovascular disease. 5. Paroxysmal atrial fibrillation. 6. History of myocardial infarction and coronary artery disease status post LAD stent in July 2017 and left circumflex in August 2017. 7. Diabetes mellitus type 2, insulin requiring. 8. GERD 9. History of hyperlipidemia intolerant of statins. 10. Diabetic peripheral neuropathy 11. Recurrent depression. 12. Chronic anemia secondary to chronic kidney disease. Discharge plan: Return home Impression and plan of care have been directed as dictated by the signing physician. Jessenia Gonzalez nurse practitioner acting as scribe for signing physician. Patient Condition at Discharge: Good Plan - Discharge Summary Discharge Rx Participant: No New Discharge Prescriptions: New Ampicillin Trihydrate 500 mg PO DAILY #6 cap Continue DULoxetine HCL [Cymbalta] 60 mg PO DAILY Fish Oil/Dha/Epa [Fish Oil 1,200 mg Fish Oil] 1 cap PO MOWEFR Amiodarone HCl [Pacerone] 100 mg PO DAILY Docusate [Colace] 100 mg PO BID Ezetimibe [Zetia] 10 mg PO DAILY Isosorbide Mononitrate ER [Imdur] 30 mg PO DAILY Gabapentin [Neurontin] 300 mg PO BID #60 capsule Omeprazole 20 mg PO DAILY Cranberry 4200mg-Vitamin C 1 tab PO BID Cholecalciferol (Vitamin D3) [Vitamin D3] 2,000 unit PO DAILY Furosemide [Lasix] 80 mg PO BID@0900,1600 tab Magnesium Oxide [Mag-Ox] 250 mg PO DAILY Ferrous Sulfate [Iron (65 MG Elemental)] 325 mg PO DAILY Insulin Aspart [NovoLOG (formulary)] See Protocol SQ AC-TID Sevelamer [Renvela] 800 mg PO TID-W/MEALS #90 tab Insulin Aspart [NovoLOG (formulary)] 12 unit SQ AC-BRKFST Clopidogrel [Plavix] 75 mg PO DAILY #30 tab Fexofenadine HCl [Amanda Allergy] 180 mg PO DAILY Insulin Aspart [NovoLOG] 14 unit SQ AC-SUPPER Insulin Aspart [NovoLOG] 14 unit SQ AC-LUNCH Diltiazem HCl 60 mg PO TID Midodrine HCl [ProAmatine] 5 mg PO DAILY PRN PRN Reason: DIALYSIS Acetaminophen Tab [Tylenol] 325 mg PO Q6H PRN PRN Reason: Pain Darbepoetin Aron [Aranesp] 40 mcg SQ Q7D syringe Insulin Glargine [Lantus] 35 unit SQ BID #0 Metoprolol Succinate (ER) [Toprol XL] 50 mg PO DAILY #30 tab Discontinued Apixaban [Eliquis] 2.5 mg PO BID Aspirin 81 mg PO DAILY #90 chewable metroNIDAZOLE [Flagyl] 500 mg PO TID #21 tab predniSONE See Taper PO DAILY Discharge Medication List DULoxetine HCL [Cymbalta] 60 mg PO DAILY 08/04/14 [History] Fish Oil/Dha/Epa [Fish Oil 1,200 mg Fish Oil] 1 cap PO MOWEFR 08/04/14 [History] Amiodarone HCl [Pacerone] 100 mg PO DAILY 11/22/15 [History] Docusate [Colace] 100 mg PO BID 11/22/15 [History] Ezetimibe [Zetia] 10 mg PO DAILY 11/22/15 [History] Isosorbide Mononitrate ER [Imdur] 30 mg PO DAILY 11/22/15 [History] Gabapentin [Neurontin] 300 mg PO BID #60 capsule 11/27/15 [Rx] Cranberry 4200mg-Vitamin C 1 tab PO BID 12/25/16 [History] Omeprazole 20 mg PO DAILY 12/25/16 [History] Cholecalciferol (Vitamin D3) [Vitamin D3] 2,000 unit PO DAILY 12/31/16 [History] Furosemide [Lasix] 80 mg PO BID@0900,1600 tab 01/13/17 [Rx] Ferrous Sulfate [Iron (65 MG Elemental)] 325 mg PO DAILY 05/05/17 [History] Insulin Aspart [NovoLOG (formulary)] See Protocol SQ AC-TID 05/05/17 [History] Magnesium Oxide [Mag-Ox] 250 mg PO DAILY 05/05/17 [History] Sevelamer [Renvela] 800 mg PO TID-W/MEALS #90 tab 05/15/17 [Rx] Insulin Aspart [NovoLOG (formulary)] 12 unit SQ AC-BRKFST 08/16/17 [History] Clopidogrel [Plavix] 75 mg PO DAILY #30 tab 08/21/17 [Rx] Fexofenadine HCl [Amanda Allergy] 180 mg PO DAILY 09/27/17 [History] Insulin Aspart [NovoLOG] 14 unit SQ AC-LUNCH 09/27/17 [History] Insulin Aspart [NovoLOG] 14 unit SQ AC-SUPPER 09/27/17 [History] Diltiazem HCl 60 mg PO TID 10/23/17 [History] Midodrine HCl [ProAmatine] 5 mg PO DAILY PRN 10/23/17 [History] Acetaminophen Tab [Tylenol] 325 mg PO Q6H PRN 11/09/17 [History] Darbepoetin Aron [Aranesp] 40 mcg SQ Q7D syringe 11/15/17 [Rx] Insulin Glargine [Lantus] 35 unit SQ BID #0 11/15/17 [Rx] Metoprolol Succinate (ER) [Toprol XL] 50 mg PO DAILY #30 tab 11/15/17 [Rx] Ampicillin Trihydrate 500 mg PO DAILY #6 cap 11/27/17 [Rx] Follow up Appointment(s)/Referral(s): Meghan Garcia MD [Primary Care Provider] - 12/07/17 Mariam Botello MD [STAFF PHYSICIAN] - 1 Week (as scheduled for HD) Jimmy Vieyra MD [STAFF PHYSICIAN] - 12/11/17 Chava Combs MD [STAFF PHYSICIAN] - 12/08/17 3:15 pm Montez Singer MD [STAFF PHYSICIAN] - 12/01/17 10:30 am (make f/u for 12/01 have ultrasound scheduled in office) Activity/Diet/Wound Care/Special Instructions: Follow with nephrology at clinic. Hold Eliquis until follow up with Dr. Combs. ULTRASOUND OF LEFT ARM TO BE DONE AT APPOINTMENT WITH DR. SINGER THIS 12/01/17. Discharge Disposition: HOME SELF-CARE
== END 2017-11-27 15:58 | disposition home or self-care (01) | DRG 393 ==
LOC: EC 11:59 → 6ICU 15:04 → 4MS4W 11-24 14:45
PROVIDERS: ADMIT Internal Medicine Geriatric Medicine; ATTEND Internal Medicine Geriatric Medicine
PROC: 02HV33Z Insertion of Infusion Device into Superior Vena Cava, Percutaneous Approach (ICD-10-PCS; 2017-11-23)
PROC: 30233N1 Transfusion of Nonautologous Red Blood Cells into Peripheral Vein, Percutaneous Approach (ICD-10-PCS; 2017-11-23)
PROC: 5A1D70Z Performance of Urinary Filtration, Intermittent, Less than 6 Hours Per Day (ICD-10-PCS; 2017-11-24)
PROC: 0DBH8ZX Excision of Cecum, Via Natural or Artificial Opening Endoscopic, Diagnostic (ICD-10-PCS; 2017-11-25)
PROC: 0DJ08ZZ Inspection of Upper Intestinal Tract, Via Natural or Artificial Opening Endoscopic (ICD-10-PCS; principal; 2017-11-25 07:30)
PROC: 0DBK8ZX Excision of Ascending Colon, Via Natural or Artificial Opening Endoscopic, Diagnostic (ICD-10-PCS; 2017-11-25 07:30)
PROC: 0DBL8ZX Excision of Transverse Colon, Via Natural or Artificial Opening Endoscopic, Diagnostic (ICD-10-PCS; 2017-11-25 12:33)
DX: K55.9 Vascular disorder of intestine, unspecified (principal); N18.6 End stage renal disease; D62 Acute posthemorrhagic anemia; Z68.42 Body mass index [BMI] 45.0-49.9, adult; F33.9 Major depressive disorder, recurrent, unspecified; I13.2 Hypertensive heart and chronic kidney disease with heart failure and with stage 5 chronic kidney disease, or end stage renal disease; I50.32 Chronic diastolic (congestive) heart failure; K63.3 Ulcer of intestine; N17.9 Acute kidney failure, unspecified; N39.0 Urinary tract infection, site not specified; T82.818A Embolism due to vascular prosthetic devices, implants and grafts, initial encounter; B96.20 Unspecified Escherichia coli [E. coli] as the cause of diseases classified elsewhere; D63.1 Anemia in chronic kidney disease; E11.21 Type 2 diabetes mellitus with diabetic nephropathy; E11.22 Type 2 diabetes mellitus with diabetic chronic kidney disease; E11.42 Type 2 diabetes mellitus with diabetic polyneuropathy; E66.01 Morbid (severe) obesity due to excess calories; E78.5 Hyperlipidemia, unspecified; G47.33 Obstructive sleep apnea (adult) (pediatric); I25.10 Atherosclerotic heart disease of native coronary artery without angina pectoris; I25.2 Old myocardial infarction; I08.0 Rheumatic disorders of both mitral and aortic valves; I48.0 Paroxysmal atrial fibrillation; I48.2 Chronic atrial fibrillation; K21.9 Gastro-esophageal reflux disease without esophagitis; K76.0 Fatty (change of) liver, not elsewhere classified; Y83.2 Surgical operation with anastomosis, bypass or graft as the cause of abnormal reaction of the patient, or of later complication, without mention of misadventure at the time of the procedure; Z77.22 Contact with and (suspected) exposure to environmental tobacco smoke (acute) (chronic); Z79.01 Long term (current) use of anticoagulants; Z79.02 Long term (current) use of antithrombotics/antiplatelets; Z79.4 Long term (current) use of insulin; Z79.82 Long term (current) use of aspirin; Z79.899 Other long term (current) drug therapy; Z82.49 Family history of ischemic heart disease and other diseases of the circulatory system; Z82.5 Family history of asthma and other chronic lower respiratory diseases; Z90.710 Acquired absence of both cervix and uterus; Z95.5 Presence of coronary angioplasty implant and graft; Z99.2 Dependence on renal dialysis; Z99.3 Dependence on wheelchair; Z82.3 Family history of stroke; Z88.1 Allergy status to other antibiotic agents; Z88.5 Allergy status to narcotic agent; Z88.8 Allergy status to other drugs, medicaments and biological substances; E11.51 Type 2 diabetes mellitus with diabetic peripheral angiopathy without gangrene; Z87.01 Personal history of pneumonia (recurrent); G89.29 Other chronic pain; M54.9 Dorsalgia, unspecified; Z87.440 Personal history of urinary (tract) infections; Z86.14 Personal history of Methicillin resistant Staphylococcus aureus infection; Z98.42 Cataract extraction status, left eye; Z98.41 Cataract extraction status, right eye; E83.89 Other disorders of mineral metabolism
CPT/HCPCS: 36415; 36556; 36569; 43235; 45380; 71045; 71046; 76937; 77001; 80048; 80053; 81001; 82272; 83036; 83605; 83735; 84100; 85025; 85027; 85610; 85730; 86850; 86900; 86901; 86920; 87040; 87077; 87086; 87186; 90935; 93005; 94760; 96374; 99291

== ENCOUNTER → 2018-01-19 | Outpatient (CLI) | payer MEDICARE ==
--- NOTE | 2018-01-19 12:01 | MM ---
Reason for exam: screening (asymptomatic). Last mammogram was performed 4 years and 11 months ago. History: Patient is postmenopausal. Benign stereotactic core biopsy of the left breast, February 10, 1999. Took estrogen for 8 months beginning at age 43. Physical Findings: A clinical breast exam by your physician is recommended on an annual basis and results should be correlated with mammographic findings. MG Screening Mammo w CAD Bilateral CC, MLO, and XCCL view(s) were taken. Prior study comparison: February 08, 2013, bilateral digital screening mammo w/CAD. October 15, 2010, bilateral digital screening mammo w/CAD. The breast tissue is heterogeneously dense. This may lower the sensitivity of mammography. Extensive vascular calcifications. There is no discrete abnormality. No significant changes when compared with prior studies. ASSESSMENT: Benign, BI-RAD 2 RECOMMENDATION: Routine screening mammogram of both breasts in 1 year.
== END | disposition home or self-care (01) ==
LOC: RADMAMWWP 10:56
PROVIDERS: ATTEND Internal Medicine
DX: Z12.31 Encounter for screening mammogram for malignant neoplasm of breast (principal)
CPT/HCPCS: 77067

== ENCOUNTER → 2018-02-16 | Outpatient (CLI) | payer MEDICARE ==
[2018-02-16 15:05] LABS: Potassium 5.3 mmol/L (3.5-5.1)
== END | disposition home or self-care (01) ==
LOC: LABPAT 13:40
PROVIDERS: ATTEND Internal Medicine Interventional Cardiology
DX: Z01.812 Encounter for preprocedural laboratory examination (principal); I10 Essential (primary) hypertension; E78.00 Pure hypercholesterolemia, unspecified; I25.10 Atherosclerotic heart disease of native coronary artery without angina pectoris
CPT/HCPCS: 80051; 82565; 84520

== ENCOUNTER 2018-02-19 11:12 | Day surgery (SDC) | payer MEDICARE ==
[2018-02-16 10:57] VITALS: BMI 37.5
[~2018-02-19 11:12] MED LIST changes: -ALPRAZolam 0.25 MG TAB PO PRN; -ALPRAZolam 0.5 MG TAB PO PRN; -ASPIRIN 325 MG TAB PO STA; -ATORVASTATIN 80 MG TAB PO STA; -NITROGLYCERIN SL TABS 0.4 MG TAB SUBLINGUAL PRN
[2018-02-19 12:30] LABS: Glucose,Whole Blood 178 mg/dL (75-99)
[2018-02-19] MEDS ORDERED: ASPIRIN 325 MG TAB PO ONE (12:32)
[2018-02-19 12:45] LABS: Anisocytosis Slight; Basophils # (A) 0.1 k/uL (0-0.2); Basophils % (A) 1 %; Eosinophils # (A) 0.3 k/uL (0-0.7); Eosinophils % (A) 2 %; HCT 39.7 % (34.0-46.0); HGB 12.2 gm/dL (11.4-16.0); Hypochromasia Moderate; Lymphocytes # (A) 2.3 k/uL (1.0-4.8); Lymphocytes % (A) 15 %; MCH 29.6 pg (25.0-35.0); MCHC 30.7 g/dL (31.0-37.0); MCV 96.4 fL (80.0-100.0); Macrocytosis Slight; Mean Platelet Volume 7.8; Monocytes # (A) 0.7 k/uL (0-1.0); Monocytes % (A) 5 %; Neutrophils # (A) 11.2 k/uL (1.3-7.7); Neutrophils % (A) 76 %; Platelet Count 322 k/uL (150-450); RBC 4.12 m/uL (3.80-5.40); RDW 17.1 % (11.5-15.5); WBC 14.8 k/uL (3.8-10.6)
[2018-02-19 12:58] LABS: Calcium 9.5 mg/dL (8.4-10.2); Potassium 4.8 mmol/L (3.5-5.1)
[2018-02-19] MEDS ORDERED: MIDAZOLAM 2 MG/2 ML VIAL IVP ONE (13:00)
[2018-02-19] MEDS ORDERED: LIDOCAINE 1% (PF) 10MG/ML VIAL SQ ONE (13:03)
[2018-02-19] MEDS ORDERED: IOPAMIDOL-250 100ML BTL INTRAARTER ONE (13:15)
[2018-02-19] MEDS ORDERED: IOPAMIDOL-250 50ML BTL INTRAARTER ONE (13:15)
--- NOTE | 2018-02-19 13:43 | LTR ---
February 19, 2018 Re: Hayley Corrigan Dear Dr. Garcia: Ms. Hayley Corrigan underwent an abdominal aortogram and bilateral lower extremities runoff. After she was diagnosed recently with critical limb ischemia. The aortogram and runoff revealed severe bilateral femoral artery disease and severe bilateral anterior tibial artery disease. She will be scheduled to undergo an atherectomy and balloon angioplasty of bilateral legs in the next few weeks. Thank you for allowing me to participate in her care and please do not hesitate to call if you have any question or concern. Sincerely, Nikos Macedo MD MMLULAL / SUBHAN: [id number] /
--- NOTE | 2018-02-19 13:52 | AN ---
ANGIOGRAPHY REPORT DATE OF SERVICE: 02/19/2018 PERFORMING PHYSICIAN: Nikos Macedo MD, Director Of Content Marketing. PROCEDURE PERFORMED: 1. Abdominal aortogram. 2. Bilateral lower extremity runoff. INDICATION: This is a pleasant 72-year-old female patient who was diagnosed recently with critical limb ischemia. She was seen and evaluated by Dr. Levy who recommended proceeding with an abdominal aortogram and bilateral lower extremities runoff. The patient also does see Dr. Combs. APPROACH: Right common femoral artery. COMPLICATION: None. LEVEL OF SEDATION: Moderate with sedation length of 15 minutes. PROCEDURE DESCRIPTION: After obtaining an informed consent, the patient was brought to the cardiac industrial laborer. The right common femoral artery was cannulated using micropuncture technique and a micropuncture wire passed easily then I placed a 4-Georgian sheath in the right common femoral artery. After that, I did an abdominal aortogram and bilateral lower extremity runoff using 4-Georgian pigtail catheter which was initially placed at the level of the renal arteries and it was pulled into above the bifurcation of the aorta to right and left common iliac arteries. SELECTIVE PERIPHERAL ANGIOGRAM: 1. The aorta is angiographically normal. 2. COMMON ILIAC ARTERIES: The right and left common iliac arteries are patent. 3. INTERNAL ILIAC ARTERIES: The right and left internal iliac arteries are patent. 4. EXTERNAL ILIAC ARTERIES: The right and left external iliac arteries are patent. 5. PROFUNDA: The right and left profunda are patent. 6. SFA: The right SFA has a tight lesion in the midportion and the left SFA is subtotally occluded in the midportion as well. 7. POPLITEAL: The right and left popliteal appeared to have mild disease only. 8. BELOW THE KNEE: There is only one vessel runoff below the knee bilaterally with anterior tibial which has a tight lesion bilaterally. CONCLUSION: 1. Severe bilateral superficial femoral artery disease. 2. Severe [id number] disease with only one vessel runoff with anterior tibial which is diseased severely bilaterally. POSTPROCEDURE MANAGEMENT: GLORY HOLE TENDER of the right and left SFA as well as right and left anterior tibial. MMODL / IJN: [id number] /
--- NOTE | 2018-02-19 14:19 | IR ---
EXAMINATION TYPE: IR angio abdominal w runoff DATE OF EXAM: 02/19/2018 COMPARISON: NONE HISTORY: Peripheral vascular occlusive disease. Fluoroscopy was provided to the referring clinician. See dictated report from cardiology.
[2018-02-19 15:25] VITALS: RESP 20
--- NOTE | 2018-02-19 16:22 | P.CONS ---
History of Present Illness - Reason for Consult Consult date: 02/19/18 - Chief Complaint ulcers of left foot - History of Present Illness 72 year old woman with superobesity and ESRD on HD with a many week history of lesions to the left foot with worsening ulceration. The patient relates that she is and recent evaluation including recent hospitalization. She relates that she was seen at the wound healing Center at the [facility]. Patient relates that she was given some local wound care but cannot relate that she was giving prescriptions for wound care products an ongoing basis for the care of the foot. The patient relates that she does not have home care that her daughter who is a nurse provides her care. She's been seen by Dr. Rock as well as by Dr. Garcia which are her podiatry in the outpatient setting. She believes that she's been treated with Santyl but currently is putting dry dressings on the toes. The patient has diabetes mellitus with significant complications and cleared severe peripheral vascular disease and peripheral neuropathy and does not have significant pain in the foot. It appears that with her worsening status she was referred to Dr. Macedo for angiography and this has not been performed with evidence of the severe peripheral vascular disease and the need for angioplasty which is being planned for the next few weeks. Consult was for wound care. Review of Systems Patient has had her angiography performed today. Relates that she is not feeling poorly this time is very fatigued HEENT:Denies headache or acute visual change. Denies sinus or mouth discomforts. Denies neck stiffness or pain. Denies significant oral cavity pain. Denies difficulty on swallowing. Lungs: Denies significant shortness of breath, cough, sputum production, or hemoptysis. Cardiovascular: Denies significant shortness of breath, chest pain, chest wall pain, orthopnea, dyspnea on exertion, syncope Gastrointestinal:Denies nausea, vomiting, diarrhea, constipation, hematemesis, melena, hematochezia. No no significant change of bowel habit noticed. Musculoskeletal: denies significant myalgias or arthralgias. No new joint swelling. Denies new back pain. Skin: Significant lesions of the left foot Neuro: Is without headache does have poor vision has significant neuropathy of both hands and feet. Psychiatric:Denies anxiety or depression. Endocrine: Complains of ongoing fatigue relates weight is dependent on her dialysis. Past Medical History Past Medical History: Atrial Fibrillation, Coronary Artery Disease (CAD), Heart Failure, COPD, Diabetes Mellitus, GERD/Reflux, Hyperlipidemia, Hypertension, Myocardial Infarction (SC), Pneumonia, Renal Disease, Sleep Apnea/CPAP/BIPAP Additional Past Medical History / Comment(s): HEMODIALYSIS- MONDAY,MONDAY, AND MONDAY . SEE HISTORY AND PHYSICAL. USES WHEELCHAIR-TRANSFERS ONLY -CAN TAKE A COUPLE OF STEPS Last Myocardial Infarction Date:: 2015 History of Any Multi-Drug Resistant Organisms: MRSA Year Discovered:: 02/09/18 MDRO Source:: TOE Past Surgical History: Back Surgery, Cholecystectomy, Heart Catheterization, Heart Catheterization With Stent, Hysterectomy, Orthopedic Surgery Additional Past Surgical History / Comment(s): PCI with stents, several back surgeries-lumbar, bilateral carpal tunnel releases, bilateral cataract removals , port then fistula for hemodialysis. Past Anesthesia/Blood Transfusion Reactions: No Reported Reaction Additional Past Anesthesia/Blood Transfusion Reaction / Comm: Confusion that resolved. Date of Last Stent Placement:: 10/06/17 Additional Psychological History / Comment(s): Single but lives with her daughter who is her caregiver. No experience. No recent travel. No animals in the home. lifelong nonsmoker Smoking Status: Never smoker - Past Family History Father Additional Family Medical History / Comment(s): Brain aneurysm ; age 72 Sister(s) Family Medical History: Hypertension Additional Family Medical History / Comment(s): Aortic stenosis; mitral valve disease Mother Family Medical History: No Reported History, AFIB, CVA/TIA, Hypertension Additional Family Medical History / Comment(s): mother age 83 Daughter(s) Family Medical History: Asthma Son(s) Family Medical History: Asthma Medications and Allergies Home Medications and Allergies Comment(s): Current Medications Sodium Chloride 1,000 ml/ IV (Solution) 1,000 mls @ 92.98 mls/hr IV .[id number] ONE Stop: 02/19/18 16:55 Last Admin: 02/19/18 11:57 Dose: 100 mls Home Medications Medication Instructions Recorded Confirmed Type DULoxetine HCL [Cymbalta] 60 mg PO DAILY 08/04/14 02/16/18 History Fish Oil/Dha/Epa [Fish Oil 1,200 1 cap PO MOWEFR 08/04/14 02/16/18 History mg Fish Oil] Amiodarone HCl [Pacerone] 100 mg PO DAILY 11/22/15 02/16/18 History Docusate [Colace] 100 mg PO BID 11/22/15 02/16/18 History Ezetimibe [Zetia] 10 mg PO DAILY 11/22/15 02/16/18 History Isosorbide Mononitrate ER [Imdur] 30 mg PO DAILY 11/22/15 02/16/18 History Gabapentin [Neurontin] 300 mg PO BID #60 capsule 11/27/15 02/16/18 Rx Cranberry 4200mg-Vitamin C 1 tab PO BID 12/25/16 02/16/18 History Omeprazole 20 mg PO DAILY 12/25/16 02/16/18 History Cholecalciferol (Vitamin D3) 2,000 unit PO DAILY 12/31/16 02/16/18 History [Vitamin D3] Furosemide [Lasix] 80 mg PO BID@0900,1600 tab 01/13/17 02/16/18 Rx Ferrous Sulfate [Iron (65 MG 325 mg PO DAILY 05/05/17 02/16/18 History Elemental)] Insulin Aspart [NovoLOG See Protocol SQ AC-TID 05/05/17 02/16/18 History (formulary)] Magnesium Oxide [Mag-Ox] 250 mg PO DAILY 05/05/17 02/16/18 History Sevelamer [Renvela] 800 mg PO TID-W/MEALS #90 tab 05/15/17 02/16/18 Rx Insulin Aspart [NovoLOG 12 unit SQ AC-BRKFST 08/16/17 02/16/18 History (formulary)] Clopidogrel [Plavix] 75 mg PO DAILY #30 tab 08/21/17 02/16/18 Rx Fexofenadine HCl [Amanda Allergy] 180 mg PO DAILY 09/27/17 02/16/18 History Insulin Aspart [NovoLOG] 14 unit SQ AC-LUNCH 09/27/17 02/16/18 History Insulin Aspart [NovoLOG] 14 unit SQ AC-SUPPER 09/27/17 02/16/18 History Midodrine HCl [ProAmatine] 10 mg PO TUTHSA PRN 10/23/17 02/16/18 History Acetaminophen Tab [Tylenol] 650 mg PO Q6H PRN 11/09/17 02/16/18 History Insulin Glargine [Lantus] 35 unit SQ BID #0 11/15/17 02/16/18 Rx Darbepoetin Aron [Aranesp] 40 mcg SQ Q7D 02/16/18 02/16/18 History Metoprolol Succinate (ER) [Toprol 50 mg PO SUMOWEFR 02/16/18 02/16/18 History XL] Tetracycline HCl 250 mg PO TID 02/16/18 02/16/18 History Sulfamethox-Tmp 400-80Mg [Bactrim 1 tab PO Q12HR #28 tablet 02/19/18 Rx SS 400-80 mg] Allergies Allergy/AdvReac Type Severity Reaction Status Date / Time KUSHAL Inhibitors Allergy Swelling Verified 02/16/18 09:50 ARB-Angiotensin Receptor Allergy Swelling Verified 02/16/18 09:50 Antagonist cephalexin monohydrate Allergy Rash/Hives, Verified 02/16/18 09:50 [From Keflex] MOUTH SWELLING propoxyphene HCl AdvReac Hallucinati Verified 02/16/18 09:50 [From Darvon] ons Hzhspmj-Rwm-Eqp Reductase AdvReac Myalgia Verified 02/16/18 09:50 Inhibitor Physical Exam Vitals: Vital Signs Resp BP 02/19/18 15:40 20 146/65 02/19/18 14:45 20 166/71 02/19/18 14:30 18 167/80 02/19/18 14:15 18 168/81 02/19/18 14:00 20 183/79 Intake and Output 02/19/18 02/19/18 02/19/18 06:59 14:59 22:59 Intake Total 200 Output Total 275 Balance -75 Intake: IV 100 Oral 100 Output: Urine 275 72-year-old woman who is comfortable status post angiography HEENT: Anicteric conjunctiva are pink and moist nasal mucosa grossly intact without significant lesions, there is no thrush. Neck: The neck is supple without significant lymphadenopathy or thyromegaly. Lungs: Good bilateral air entry without significant crackles or wheezing. There is no significant bronchial sounds. There is no egophony or dullness. Heart: Regular with an audible S1 and S2 soft S4 no severe murmur click or rub PMI was nondisplaced no heave or thrill: Abdomen: Obese, Positive bowel sounds soft and nontender without palpable masses or organomegaly. There was no guarding or rebound. Extremities: Upper extremities reveals no lesions IV site is without difficulty. The fistula to the left arm is functioning well with a bruit and thrill. Left arm without swelling. The lower extremities are both cool left more so than right. The foot is evidence of the significant ischemic changes including ischemic fifth toe and ulceration to the great toe and fourth toe. Also eschars on the dorsum of the foot. There is some surrounding erythema but no expressible purulence. No palpable pulse in the foot. Neuro: Awake alert oriented to person place and time. There are no acute new gross focal sensory motor deficits. Results CBC & Chem 7: 02/19/18 12:00 02/19/18 12:00 Labs: Abnormal Lab Results - Last 24 Hours (Table) 02/19/18 02/19/18 02/19/18 Range/Units 12:00 12:00 12:12 WBC 14.8 H (3.8-10.6) k/uL MCHC 30.7 L (31.0-37.0) g/dL RDW 17.1 H (11.5-15.5) % Neutrophils # 11.2 H (1.3-7.7) k/uL Chloride 92 L (98-107) mmol/L BUN 64 H (7-17) mg/dL Creatinine 5.77 H (0.52-1.04) mg/dL Glucose 174 H (74-99) mg/dL POC Glucose (mg/dL) 178 H (75-99) mg/dL Laboratory Results WBC 14.8 k/uL (3.8-10.6) H 02/19/18 12:00 RBC 4.12 m/uL (3.80-5.40) 02/19/18 12:00 Hgb 12.2 gm/dL (11.4-16.0) 02/19/18 12:00 Hct 39.7 % (34.0-46.0) 02/19/18 12:00 MCV 96.4 fL (80.0-100.0) 02/19/18 12:00 MCH 29.6 pg (25.0-35.0) 02/19/18 12:00 MCHC 30.7 g/dL (31.0-37.0) L 02/19/18 12:00 RDW 17.1 % (11.5-15.5) H 02/19/18 12:00 Plt Count 322 k/uL (150-450) 02/19/18 12:00 Neutrophils % 76 % 02/19/18 12:00 Lymphocytes % 15 % 02/19/18 12:00 Monocytes % 5 % 02/19/18 12:00 Eosinophils % 2 % 02/19/18 12:00 Basophils % 1 % 02/19/18 12:00 Neutrophils # 11.2 k/uL (1.3-7.7) H 02/19/18 12:00 Lymphocytes # 2.3 k/uL (1.0-4.8) 02/19/18 12:00 Monocytes # 0.7 k/uL (0-1.0) 02/19/18 12:00 Eosinophils # 0.3 k/uL (0-0.7) 02/19/18 12:00 Basophils # 0.1 k/uL (0-0.2) 02/19/18 12:00 Hypochromasia Moderate 02/19/18 12:00 Anisocytosis Slight 02/19/18 12:00 Macrocytosis Slight 02/19/18 12:00 Sodium 138 mmol/L (137-145) 02/19/18 12:00 Potassium 4.8 mmol/L (3.5-5.1) 02/19/18 12:00 Chloride 92 mmol/L (98-107) L 02/19/18 12:00 Carbon Dioxide 26 mmol/L (22-30) 02/19/18 12:00 Anion Gap 20 mmol/L 02/19/18 12:00 BUN 64 mg/dL (7-17) H 02/19/18 12:00 Creatinine 5.77 mg/dL (0.52-1.04) H 02/19/18 12:00 Est GFR (CKD-EPI)AfAm 8 (>60 ml/min/1.73 sqM) 02/19/18 12:00 Est GFR (CKD-EPI)NonAf 7 (>60 ml/min/1.73 sqM) 02/19/18 12:00 Glucose 174 mg/dL (74-99) H 02/19/18 12:00 POC Glucose (mg/dL) 178 mg/dL (75-99) H 02/19/18 12:12 POC Glu Supply Chain Generalist Tiarra Chang 02/19/18 12:12 Calcium 9.5 mg/dL (8.4-10.2) 02/19/18 12:00 Outpatient culture positive for MRSA. Assessment and Plan (1) Peripheral vascular disease of lower extremity with ulceration Narrative/Plan: 72-year-old woman with a long-standing history of diabetes mellitus with complications that include end-stage renal disease and now progressive peripheral vascular disease. She was seen in Hospital today by cardiology and angiography was performed revealing evidence of severe peripheral vascular disease to bilateral lower extremities. There are plans for balloon angioplasty and possibly stents in the next short period of time. Exam the patient is evidence of ischemic change with early necrosis occurring of the left foot. There is some eschar that seen in the great toe and fifth toe on the dorsum of the foot, and the fifth toe has a purplish discoloration likely an early dry gangrenous process occurring. The patient has no pain but is with significant neuropathy. Is evidence of an outpatient recent culture with MRSA. The plan will be to utilize oral trimethoprim sulfamethoxazole at half-strength given her end-stage renal disease. Local wound care will be started with medical Honey. A significant discussion occurs with the patient regarding how she is caring for the foot ulcerations at home. She relates that she was seen at the [facility] wound clinic. She relates that she does not plan on following up there. Her daughter is a nurse and can provide the care that she needs. I inquire as to how she obtains her wound care products, specifically who is writing for them. She relates that her daughter is able to get them from [facility]. It is not clear to me if podiatry or others have been providing her wound care. I offered for her to be seen at the [facility] wound healing center to continue evaluation and to offer ongoing wound care. She relates that she does not want to come to the wound center. Her daughter is a nurse can provider her care. We discussed that it would be ideal if a wound physician could evaluate her on an ongoing basis to provide advice and treatment to the ulceration to her left foot and to provide orders to receive wound care products. She relates that her daughter is a nurse and can provide all the care that she needs. I then suggest possibility of home care so that home care nurse to be able to come to the home and help provide products. She can relates that her daughter is a nurses and they do not help at home. I offered my services at the [facility] wound healing center if she would like further evaluation input and care to her left foot. She is certainly at risk for toe loss, loss of foot, or even limb loss if this is not well taking care of. The daughter was not at the bedside during this evaluation. Current Visit: Yes Status: Acute Code(s): I73.9 - PERIPHERAL VASCULAR DISEASE, UNSPECIFIED; L97.909 - NON-PRS CHRONIC ULC UNSP PRT OF UNSP LOW LEG W UNSP SEVERITY SNOMED Code(s): 524358287 (2) MRSA (methicillin resistant Staphylococcus aureus) infection Current Visit: Yes Status: Acute Code(s): A49.02 - METHICILLIN RESIS STAPH INFECTION, UNSP SITE SNOMED Code(s): 904606684
[2018-02-19 18:19] VITALS: BP 141/72
== END 2018-02-19 18:12 | disposition home or self-care (01) ==
LOC: CATHCVL 11:12
PROVIDERS: ATTEND Internal Medicine Interventional Cardiology
DX: I70.262 Atherosclerosis of native arteries of extremities with gangrene, left leg (principal); L97.529 Non-pressure chronic ulcer of other part of left foot with unspecified severity; B95.62 Methicillin resistant Staphylococcus aureus infection as the cause of diseases classified elsewhere; I70.201 Unspecified atherosclerosis of native arteries of extremities, right leg; E11.621 Type 2 diabetes mellitus with foot ulcer; E11.42 Type 2 diabetes mellitus with diabetic polyneuropathy; E11.51 Type 2 diabetes mellitus with diabetic peripheral angiopathy without gangrene; I13.2 Hypertensive heart and chronic kidney disease with heart failure and with stage 5 chronic kidney disease, or end stage renal disease; I50.9 Heart failure, unspecified; E11.22 Type 2 diabetes mellitus with diabetic chronic kidney disease; N18.6 End stage renal disease; Z99.2 Dependence on renal dialysis; E66.01 Morbid (severe) obesity due to excess calories; Z68.37 Body mass index [BMI] 37.0-37.9, adult; I48.91 Unspecified atrial fibrillation; I25.10 Atherosclerotic heart disease of native coronary artery without angina pectoris; J44.9 Chronic obstructive pulmonary disease, unspecified; K21.9 Gastro-esophageal reflux disease without esophagitis; G47.30 Sleep apnea, unspecified; E78.00 Pure hypercholesterolemia, unspecified; I25.2 Old myocardial infarction; Z95.5 Presence of coronary angioplasty implant and graft; Z99.89 Dependence on other enabling machines and devices; Z99.3 Dependence on wheelchair; Z79.02 Long term (current) use of antithrombotics/antiplatelets; Z79.4 Long term (current) use of insulin; Z79.899 Other long term (current) drug therapy; Z88.1 Allergy status to other antibiotic agents; Z88.8 Allergy status to other drugs, medicaments and biological substances; Z86.14 Personal history of Methicillin resistant Staphylococcus aureus infection; Z90.49 Acquired absence of other specified parts of digestive tract; Z90.710 Acquired absence of both cervix and uterus; Z82.49 Family history of ischemic heart disease and other diseases of the circulatory system
CPT/HCPCS: 36200; 75625; 75716; 80048; 85025; C1769 ×4; C1894; J2250; J2001; Q9966 ×2

== ENCOUNTER 2018-03-02 06:33 | Day surgery (SDC) | payer MEDICARE ==
[2018-02-27 09:50] VITALS: BMI 37.5
[~2018-03-02 06:33] MED LIST changes: +ALPRAZolam 0.25 MG TAB PO PRN; +ASPIRIN 325 MG TAB PO STA
[2018-03-02] MEDS ORDERED: ASPIRIN 81 MG PO ONE (06:58)
[2018-03-02 07:22] LABS: Glucose,Whole Blood 149 mg/dL (75-99)
[2018-03-02 07:26] LABS: Anisocytosis Slight; Basophils # (A) 0.1 k/uL (0-0.2); Basophils % (A) 1 %; Eosinophils # (A) 0.3 k/uL (0-0.7); Eosinophils % (A) 2 %; HCT 40.9 % (34.0-46.0); HGB 12.6 gm/dL (11.4-16.0); Hypochromasia Slight; Lymphocytes # (A) 3.1 k/uL (1.0-4.8); Lymphocytes % (A) 20 %; MCH 29.6 pg (25.0-35.0); MCHC 30.8 g/dL (31.0-37.0); MCV 96.4 fL (80.0-100.0); Macrocytosis Slight; Mean Platelet Volume 7.9; Monocytes % (A) 6 %; Neutrophils # (A) 10.9 k/uL (1.3-7.7); Neutrophils % (A) 70 %; Platelet Count 302 k/uL (150-450); RBC 4.24 m/uL (3.80-5.40); RDW 17.9 % (11.5-15.5); WBC 15.7 k/uL (3.8-10.6)
[2018-03-02 07:39] LABS: Calcium 9.5 mg/dL (8.4-10.2)
[2018-03-02] MEDS: MIDAZOLAM 2 MG/2 ML VIAL IVP ONE ×2 (07:49→08:01)
[2018-03-02] MEDS ORDERED: LIDOCAINE 1% INJ 10MG/ML (20 ML MDV) SQ ONE (07:51)
[2018-03-02] MEDS ORDERED: HEPARIN SODIUM 1,000 UN/ML (10ML VL) IV ONE (08:01)
[2018-03-02] MEDS: NITROGLYCERIN 1000MCG/10ML SYRINGE INTRAARTER ONE ×2 (08:44→09:14)
[2018-03-02] MEDS ORDERED: niCARdipine Syringe (1,000 mcg/10 mL) INTRAARTER ONE (09:14)
[2018-03-02] MEDS ORDERED: IOPAMIDOL-250 100ML BTL INTRAARTER ONE (09:34)
[2018-03-02] MEDS ORDERED: CLOPIDOGREL 75 MG TAB PO ONE (09:34)
[2018-03-02] MEDS ORDERED: ISOSORBIDE MONONITRATE ER 30 MG TAB.ER.24H PO PRN (09:35)
[2018-03-02] MEDS ORDERED: NON-FORMULARY DRUG (Fish Oil/Dha/Epa [Fish Oil 1,200 Mg Fish Oil] 1 CAP) PO SCH (09:45)
[2018-03-02] MEDS ORDERED: SODIUM CHLORIDE 0.9% 1,000 ML IV SCH (10:15)
--- NOTE | 2018-03-02 10:28 | LTR ---
DATE OF SERVICE: 03/02/2017 RE: Hayley Corrigan Dear Dr. Garcia; Ms. Hayley Corrigan underwent successful balloon angioplasty of the left femoral artery and left anterior tibial artery with good angiographic results and reduction of stenosis from 99% to 0%. The procedure was completed without any complication. Thank you for allowing us to participate in her care and please do not hesitate to call if you have any question or concern. Sincerely, Nikos Macedo MD MMJUHI / SUBHAN: [id number] /
--- NOTE | 2018-03-02 10:34 | AN ---
ANGIOGRAPHY REPORT DATE OF SERVICE: 03/02/2018 PERFORMING PHYSICIAN: Nikos Macedo MD, Data Steward. PROCEDURE PERFORMED: 1. Selective left anterior tibial angiogram. 2. Selective left popliteal/SFA angiogram. 3. Selective right common femoral artery angiogram. 4. Successful balloon angioplasty and stenting of the proximal left anterior tibial using 3.25 x 28 mm Xience drug-eluting stent with an excellent angiographic results. 5. An atherectomy of the left SFA using the TurboHawk atherectomy device. 6. Successful balloon angioplasty of the left SFA using 5.0 x 120 mm drug-coated balloon with an excellent angiographic results. INDICATION: This is a pleasant 72-year-old female patient who was diagnosed recently with critical limb ischemia involving the left foot with a nonhealing ulcer on the left big toe as well as the dorsal aspect of the left foot. She was seen at the [facility] by Dr. Levy. He requested the patient to have an angiogram. I did perform an abdominal aortogram and bilateral lower extremity runoff and that revealed critical left SFA and severe disease involving the left anterior tibial artery. Because of that, she was brought today to undergo an intervention of the left anterior tibial and left SFA. APPROACH: Right common femoral artery. COMPLICATION: None. LEVEL OF SEDATION: Moderate sedation length of 98 minutes. PROCEDURE DESCRIPTION: After obtaining an informed consent, the patient was brought to the cardiac supervisor cytogenetic laboratory. The right common femoral artery was cannulated using micropuncture technique, the micropuncture wire passed easily, then I placed a 6-Bruneian sheath 11 cm in the right common femoral artery. After that, anticoagulation was initiated using heparin when the patient was given 10,000 units of heparin IV. After that. I did select the left SFA using 035 Rhodes Advantage with the backup support of 5-Bruneian rim catheter. After that, I did exchange my 11 cm 6-Bruneian sheath into 55 cm 6-Bruneian sheath using the 035 Rhodes Advantage and the tip of the long sheath was positioned in the proximal left SFA. Subsequently, I did selective left anterior tibial, left popliteal/SFA angiogram. I did after that wire the left anterior tibial artery using an 014 whisper wire with the backup support of 014 CXI catheter. After that, I did balloon angioplasty of the left anterior tibial using 3 mm balloon. The following angiogram showed what seems to be possible dissection and recoiling of the proximal left anterior tibial which I decided to cover that with a stent, so I did deploy 3.25 x 28 mm Xience drug-eluting stent where the stent was positioned under fluoroscopy guidance and deployed under its nominal pressure with the following angiogram showing excellent angiographic results. For the left SFA I did atherectomy using the TurboHawk device with extraction of significant amount of plaque. After that, I did balloon angioplasty using 5 mm regular balloon. Subsequently, 5 mm x 120 mm drug coated balloon. The balloon was inflated under its nominal pressure for 3 minutes with the following angiogram showing excellent angiographic results with collection of stenosis from 99% to 0%. The procedure was completed without any complication. After that, I did exchange my 55 cm 6-Bruneian sheath into 11 cm 6-Bruneian sheath using a 035 advantage wire. Following that, I did selective right common femoral artery angiogram. The procedure was completed without any complication. POSTPROCEDURE MANAGEMENT: 1. Dual anti-platelet therapy. 2. Risk factors modifications. 3. Follow up with the patient. MMODL / IJN: [id number] /
--- NOTE | 2018-03-02 12:01 | IR ---
EXAMINATION TYPE: IR stent intravas non coronary DATE OF EXAM: 03/02/2018 COMPARISON: NONE HISTORY: Peripheral vascular occlusive disease. Fluoroscopy was provided to the referring clinician. See dictated report from cardiology.
[2018-03-02] MEDS: ACETAMINOPHEN TAB 325 MG TAB PO PRN ×2 (16:18→23:28)
[2018-03-02] MEDS: FUROSEMIDE 80 MG TAB PO SCH (16:26)
[2018-03-02] MEDS: SEVELAMER 800 MG TAB PO SCH (16:26)
[2018-03-02 16:52] LABS: Glucose,Whole Blood 92 mg/dL (75-99)
[2018-03-02] MEDS: INSULIN ASPART 100 UNIT/ML 1 ML 10 ML VIAL SQ SCH (16:57)
[2018-03-02] MEDS ORDERED: INSULIN ASPART 14 UNIT SQ SCH (17:30)
[2018-03-02] MEDS ORDERED: DARBEPOETIN ALFA 40 MCG/0.4 ML SYRINGE SQ SCH (18:00)
--- NOTE | 2018-03-02 18:37 | CONS ---
CONSULTATION REASON FOR CONSULT: End-stage renal disease. HISTORY OF PRESENT ILLNESS: Patient is a 72-year-old white female with history of end-stage renal disease, on hemodialysis on a Monday, , Monday schedule. Patient was admitted to the hospital for angioplasty of left femoral artery, which was done by Dr. Macedo. The patient had successful balloon angioplasty of the left femoral artery. Left anterior tibial artery and she is scheduled for hemodialysis tomorrow. She will be staying overnight. The patient denies any significant complaints. She has had some abdominal pain on and off. No history of fever or chills. No urinary symptoms. Regular bowel movements per patient and family. PAST MEDICAL HISTORY: End-stage renal disease, coronary artery disease, CKD mineral bone disorder, diastolic heart failure, atrial fibrillation, gastroesophageal reflux disease. PAST SURGICAL HISTORY: Cholecystectomy, cardiac catheterization, stent and hysterectomy, coronary stents, cataract surgery, AV fistula, carpal tunnel release. SOCIAL HISTORY: Negative for smoking, drug abuse or alcohol abuse. MEDICATIONS: Medications at home included aspirin, Colace, amiodarone, insulin, Lasix Neurontin, iron, Amanda, Zetia, Midodrine, metoprolol, magnesium, Bactrim, Renvela, omeprazole, insulin. EXAMINATION: Patient is currently comfortable, awake. She is not in any acute distress. Blood pressure was 125/46, heart rate 74 per minute. She is afebrile. Examination of the heart S1, S2. Examination of lungs bilateral breath sounds are heard. Abdomen is soft, obese with minimal tenderness noted in the right lower quadrant. VAMPER exam is grossly intact. No edema is noted in the peripheral extremities. LABS: Shows showed sodium 136, potassium 5.0, hemoglobin 12.6 g/dL. ASSESSMENT: 1. End-stage renal disease, on hemodialysis on a Monday, , Monday schedule. The patient will be dialyzed tomorrow. 2. History of fluid overload. The patient's weight is at its dry weight. We will plan for about 2-3 L as tolerated with hemodialysis in a.m. 3. Left foot wound currently maintained on Bactrim. There have been ischemic changes and ulceration to the greater toe and 4th toe. 4. Chronic kidney disease mineral bone disorder. 5. Peripheral vascular disease, status post angioplasty of left femoral artery done today. PLAN: Hemodialysis in a.m. Hold off on IV fluids. Maintain home medications. We will give midodrine prior to hemodialysis tomorrow. MMODL / IJN: [id number] /
[2018-03-02 20:51] LABS: Glucose,Whole Blood 120 mg/dL (75-99)
[2018-03-02] MEDS ORDERED: CRANBERRY 4200 MG PO SCH (21:00)
[2018-03-02] MEDS ORDERED: [UNRECOGNIZED DRUG - OTHER] PO SCH (21:00)
[2018-03-02] MEDS ORDERED: CHOLECALCIFEROL 1,000 UNIT TAB PO SCH (21:00)
[2018-03-02] MEDS: GABAPENTIN 300 MG CAP PO SCH (21:24)
[2018-03-02] MEDS: MAGNESIUM OXIDE 400 MG TAB PO SCH ×2 (21:24→21:42)
[2018-03-02] MEDS: DOCUSATE 100 MG CAP PO SCH (21:25)
[2018-03-02] MEDS: SULFAMETHOX-TMP 400-80MG 1 EACH TAB PO SCH (21:32)
[2018-03-02] MEDS: INSULIN DETEMIR 100 UNIT/ML 10 ML VIAL SQ SCH (21:42)
[2018-03-03 05:46] LABS: Glucose,Whole Blood 152 mg/dL (75-99)
[2018-03-03] MEDS: SEVELAMER 800 MG TAB PO SCH ×2 (06:55→12:12)
[2018-03-03] MEDS ORDERED: PANTOPRAZOLE 40 MG TABLET PO SCH (07:30)
[2018-03-03] MEDS: MIDODRINE 5 MG TAB PO PRN ×2 (08:16→09:40)
[2018-03-03] MEDS ORDERED: ASPIRIN 81 MG PO SCH (09:00)
[2018-03-03] MEDS ORDERED: CLOPIDOGREL 75 MG TAB PO SCH (09:00)
[2018-03-03] MEDS ORDERED: AMIODARONE 100 MG TAB PO SCH (09:00)
[2018-03-03] MEDS ORDERED: EZETIMIBE 10 MG TAB PO SCH (09:00)
[2018-03-03] MEDS ORDERED: LORATADINE 10 MG TAB PO SCH (09:00)
[2018-03-03] MEDS ORDERED: DULoxetine HCL 60 MG CAPSULE.DR PO SCH (09:00)
[2018-03-03] MEDS ORDERED: FERROUS SULFATE 325 MG TAB PO SCH (09:00)
[2018-03-03 09:59] VITALS: RESP 16
[2018-03-03 10:55] LABS: Glucose,Whole Blood 237 mg/dL (75-99)
[2018-03-03 11:03] LABS: Anisocytosis Slight; Basophils # (A) 0.1 k/uL (0-0.2); Basophils % (A) 1 %; Eosinophils # (A) 0.3 k/uL (0-0.7); Eosinophils % (A) 2 %; HGB 12.6 gm/dL (11.4-16.0); Hypochromasia Slight; Lymphocytes # (A) 2.6 k/uL (1.0-4.8); Lymphocytes % (A) 19 %; MCH 30.5 pg (25.0-35.0); MCHC 31.5 g/dL (31.0-37.0); MCV 96.6 fL (80.0-100.0); Macrocytosis Slight; Monocytes # (A) 0.6 k/uL (0-1.0); Monocytes % (A) 5 %; Neutrophils # (A) 10.1 k/uL (1.3-7.7); Neutrophils % (A) 73 %; Platelet Count 290 k/uL (150-450); RBC 4.14 m/uL (3.80-5.40); RDW 17.7 % (11.5-15.5); WBC 13.9 k/uL (3.8-10.6)
--- NOTE | 2018-03-03 11:23 | DS ---
DISCHARGE SUMMARY ADMISSION DATE: March 02, 2018. DISCHARGE DATE: March 03, 2018 BRIEF HISTORY: This is a very pleasant 72-year-old female patient who sees Dr. Combs in the office as an outpatient who was struggling with critical limb ischemia involving the left foot. She did have a nonhealing wound on the the dorsalis surface of the left foot. She underwent a peripheral angiogram and that revealed critical left SFA and severe right SFA. She was brought yesterday to the hospital and underwent successful balloon angioplasty of the left superficial femoral artery as well as successful stenting of the left anterior tibial artery with good angiographic results and without any complication. On follow up with her today, she did have a good night. The right groin which was the access site is soft with mild tenderness without any discrete hematomas. She does have a pounding pulse over the left dorsalis pedis artery. The patient currently is having dialysis. There is no CBC from this morning which I am going to order. If the CBC is within normal limits, the patient can be discharged home and she is already scheduled to have a DOUBLING MACHINE OPERATOR of the right SFA in the next 2 weeks. MMODL / IJN: [id number] /
[2018-03-03] MEDS: FUROSEMIDE 80 MG TAB PO SCH (12:06)
[2018-03-03] MEDS: DOCUSATE 100 MG CAP PO SCH (12:06)
[2018-03-03] MEDS: GABAPENTIN 300 MG CAP PO SCH (12:06)
[2018-03-03] MEDS: SULFAMETHOX-TMP 400-80MG 1 EACH TAB PO SCH (12:09)
[2018-03-03] MEDS: INSULIN DETEMIR 100 UNIT/ML 10 ML VIAL SQ SCH (12:10)
[2018-03-03] MEDS: INSULIN ASPART 100 UNIT/ML 1 ML 10 ML VIAL SQ SCH (12:10)
[2018-03-03 14:44] VITALS: BP 172/78; PULSE 88; TEMP 97.1
--- NOTE | 2018-03-04 07:20 | PN ---
PROGRESS NOTE The patient was seen this morning on dialysis. She was having some abdominal cramps. The UF was decreased and it seems to have eased off. The patient's blood pressure had also dropped. She is maintained on midodrine. EXAMINATION: The patient is awake, comfortable. She is not in any acute distress. Serum potassium was 5.0 yesterday. ASSESSMENT: 1. End-stage renal disease, on hemodialysis on a Monday, , Monday schedule. 2. Status post lower extremity angioplasty. 3. Right foot wound maintained on Bactrim. 4. Chronic kidney disease mineral bone disorder. 5. Abdominal pain/cramps, most likely related to hypotension and increase UF with dialysis. PLAN: We will observe and if the patient's symptoms completely subsided, she can be discharged from nephrology standpoint. RAINE / LUCIANA: [id number] / MTDMauro
[2018-03-04] MEDS ORDERED: METOPROLOL SUCCINATE (ER) 50 MG TAB.ER.24H PO SCH (09:00)
== END 2018-03-03 16:30 | disposition home or self-care (01) ==
LOC: CATHCVL 06:33 → 3SCARD 09:24 → CATHCVL 03-03 16:30
PROVIDERS: ATTEND Internal Medicine Interventional Cardiology
DX: I73.89 Other specified peripheral vascular diseases (principal); I83.025 Varicose veins of left lower extremity with ulcer other part of foot; L97.529 Non-pressure chronic ulcer of other part of left foot with unspecified severity; I50.30 Unspecified diastolic (congestive) heart failure; I25.10 Atherosclerotic heart disease of native coronary artery without angina pectoris; E11.22 Type 2 diabetes mellitus with diabetic chronic kidney disease; I13.2 Hypertensive heart and chronic kidney disease with heart failure and with stage 5 chronic kidney disease, or end stage renal disease; I48.0 Paroxysmal atrial fibrillation; N18.6 End stage renal disease; Z99.2 Dependence on renal dialysis; E78.00 Pure hypercholesterolemia, unspecified; E78.5 Hyperlipidemia, unspecified; Z87.898 Personal history of other specified conditions; K21.9 Gastro-esophageal reflux disease without esophagitis; Z95.5 Presence of coronary angioplasty implant and graft; Z79.82 Long term (current) use of aspirin; Z79.4 Long term (current) use of insulin; Z79.899 Other long term (current) drug therapy; M89.8X9 Other specified disorders of bone, unspecified site; Z88.1 Allergy status to other antibiotic agents; Z88.8 Allergy status to other drugs, medicaments and biological substances
CPT/HCPCS: 37227; 37230; 85347; 80048; 82565; 85025 ×2; C1894 ×3; C1769 ×5; C1725 ×2; C1714; C2623; C1874; J2250; J2001; J1644; J0881; Q9966; 75716; 90935

== ENCOUNTER 2018-03-28 08:03 | Day surgery (SDC) | payer MEDICARE ==
[~2018-03-28 08:03] MED LIST changes: -ALPRAZolam 0.25 MG TAB PO PRN; -ASPIRIN 325 MG TAB PO STA
[2018-03-28 09:02] LABS: Glucose,Whole Blood 179 mg/dL (75-99)
[2018-03-28] MEDS: MIDAZOLAM 2 MG/2 ML VIAL IV ONE ×2 (13:13→13:22)
[2018-03-28] MEDS ORDERED: LIDOCAINE 1% INJ 10MG/ML (20 ML MDV) SQ ONE (13:18)
[2018-03-28] MEDS ORDERED: HEPARIN SODIUM 1,000 UN/ML (10ML VL) IV ONE (13:20)
[2018-03-28] MEDS ORDERED: IOPAMIDOL-250 100ML BTL INTRAARTER ONE (14:17)
[2018-03-28] MEDS ORDERED: CLOPIDOGREL 75 MG TAB PO ONE (14:17)
[2018-03-28] MEDS ORDERED: ACETAMINOPHEN TAB 325 MG TAB PO PRN (14:28)
[2018-03-28] MEDS ORDERED: NON-FORMULARY DRUG (Fish Oil/Dha/Epa [Fish Oil 1,200 Mg Fish Oil] 1 CAP) PO SCH (14:30)
[2018-03-28 18:38] VITALS: BMI 42.4
--- NOTE | 2018-03-28 19:08 | LTR ---
March 28, [address] Garcia Ms. Hayley Corrigan underwent successful balloon angioplasty of the right femoral artery with good angiographic results and without any complication. Thank you for allowing us to participate in her care and please do not hesitate to call if you have any question or concern. MMODL / IJN: [id number] /
[2018-03-28 19:20] LABS: Glucose,Whole Blood 126 mg/dL (75-99)
--- NOTE | 2018-03-28 19:54 | AN ---
ANGIOGRAPHY REPORT DATE OF SERVICE: March 28, 2018 PERFORMING PHYSICIAN: Nikos Macedo MD, supervisor education. PROCEDURE PERFORMED: 1. Selective right etekl-jeb-mkcl angiogram. 2. Selective right popliteal/SFA angiogram. 3. Selective left common femoral artery angiogram. 4. An atherectomy of the right distal SFA/proximal popliteal using the TurboHawk atherectomy device with extraction of significant amount of plaque. 5. Successful balloon angioplasty of the distal right SFA/proximal right popliteal using 6 x 150 mm drug-coated balloon with good angiographic results and reduction of stenosis from 80% to 0%. 6. Intravascular ultrasound IVUS of the right SFA/popliteal. INDICATION: This is a pleasant 72-year-old female patient who sees Dr. [facility], who was diagnosed recently with critical limb ischemia of the left foot. She underwent a peripheral angiogram and that revealed critical left and right SFA. She underwent a SOCIAL WORK NURSE of the left SFA and she was brought today to undergo a SOCIAL WORK NURSE of the right SFA. APPROACH: Left common femoral artery. COMPLICATION: None. LEVEL OF SEDATION: Moderate with sedation length of 56 minutes. PROCEDURE DESCRIPTION: After obtaining an informed consent, the patient was brought to the cardiac concrete plant laborer. The left common femoral artery was cannulated using micropuncture technique, the micropuncture wire passed easily then I placed an 11 cm 6-St Helenian sheath in the left common femoral artery. At that point, anticoagulation was initiated using heparin and the patient was given a weight-based heparin with continuous ACT monitoring throughout the procedure. After that, I did select the right SFA using a 035 [place] Advantage wire with a 5-St Helenian rim catheter. After that, I did advanced the 0.[address] the way to the right SFA. Subsequently I did exchange my 11 cm 6-St Helenian sheath into 70 cm 6-St Helenian right Rabee sheath over the 0.035 [place] Advantage wire. The tip of the sheath was positioned in the proximal right SFA. I did wire the right SFA and right popliteal using a 0.[address] [place] [address] wire. After that, I did deploy a filter in the right popliteal. I did deploy the filter after I did selective right ocpjo-dyh-etha angiogram and found out that the patient has only one vessel runoff with AT. After that I did atherectomy on the distal right SFA and proximal right popliteal using the TurboHawk device with extraction of significant amount of plaque. After that, I did balloon angioplasty using 6 x 150 mm drug-coated balloon and the balloon was inflated under 8 atmospheres for 3 minutes. The following angiogram showed excellent angiographic results. The procedure was completed without any complication. POSTPROCEDURE MANAGEMENT: 1. Dual anti-platelet therapy. 2. Risk factors modifications. 3. Follow up with the patient. MMJUHI / LUCIANA: [id number] /
[2018-03-28] MEDS: GABAPENTIN 300 MG CAP PO SCH (20:32)
[2018-03-28] MEDS: FUROSEMIDE 80 MG TAB PO SCH (20:33)
[2018-03-28] MEDS: SEVELAMER 800 MG TAB PO SCH (20:33)
[2018-03-28] MEDS: DOCUSATE 100 MG CAP PO SCH (20:33)
[2018-03-28] MEDS: INSULIN ASPART 100 UNIT/ML 1 ML 10 ML VIAL SQ SCH (20:33)
[2018-03-28] MEDS ORDERED: CHOLECALCIFEROL 1,000 UNIT TAB PO SCH (21:00)
[2018-03-28] MEDS ORDERED: FERROUS SULFATE 325 MG TAB PO SCH (21:00)
[2018-03-28] MEDS ORDERED: CRANBERRY 4200 MG PO SCH (21:00)
[2018-03-28] MEDS ORDERED: [UNRECOGNIZED DRUG - OTHER] PO SCH (21:00)
[2018-03-28] MEDS ORDERED: MAGNESIUM OXIDE 400 MG TAB PO SCH (21:00)
[2018-03-28] MEDS: INSULIN DETEMIR 100 UNIT/ML 10 ML VIAL SQ SCH (22:08)
[2018-03-28] MEDS: SULFAMETHOX-TMP 400-80MG 1 EACH TAB PO SCH (22:08)
[2018-03-28] MEDS: BALSALAZIDE DISODIUM 750 MG CAPSULE PO SCH (22:08)
[2018-03-29] MEDS: BALSALAZIDE DISODIUM 750 MG CAPSULE PO SCH ×3 (03:30→19:06)
[2018-03-29 05:45] VITALS: TEMP 98.5
[2018-03-29 06:02] LABS: Glucose,Whole Blood 90 mg/dL (75-99)
[2018-03-29] MEDS: SEVELAMER 800 MG TAB PO SCH ×3 (06:42→19:07)
[2018-03-29 07:05] LABS: Anisocytosis Slight; Basophils # (A) 0.1 k/uL (0-0.2); Basophils % (A) 1 %; Eosinophils # (A) 0.3 k/uL (0-0.7); Eosinophils % (A) 4 %; HGB 10.4 gm/dL (11.4-16.0); Hypochromasia Slight; Lymphocytes # (A) 1.5 k/uL (1.0-4.8); Lymphocytes % (A) 21 %; MCH 31.4 pg (25.0-35.0); MCHC 31.5 g/dL (31.0-37.0); MCV 99.8 fL (80.0-100.0); Macrocytosis Moderate; Mean Platelet Volume 7.5; Monocytes # (A) 0.5 k/uL (0-1.0); Monocytes % (A) 6 %; Neutrophils # (A) 4.8 k/uL (1.3-7.7); Neutrophils % (A) 65 %; Platelet Count 248 k/uL (150-450); RBC 3.31 m/uL (3.80-5.40); RDW 19.8 % (11.5-15.5); WBC 7.3 k/uL (3.8-10.6)
[2018-03-29 07:26] LABS: Magnesium 2.7 mg/dL (1.6-2.3); Potassium 4.7 mmol/L (3.5-5.1)
[2018-03-29] MEDS ORDERED: PANTOPRAZOLE 40 MG TABLET PO SCH (07:30)
[2018-03-29] MEDS ORDERED: INSULIN ASPART 100 UNIT/ML 1 ML 10 ML VIAL SQ SCH ×2 (07:30→12:30)
--- NOTE | 2018-03-29 07:32 | IR ---
EXAMINATION TYPE: IR correctional captain femoral popliteal DATE OF EXAM: 03/28/2018 CLINICAL HISTORY: Peripheral vascular disease. Claudication. TECHNIQUE: Fluoroscopy. COMPARISON: None. FINDINGS: Fluoroscopic guidance was provided during lower extremity angiogram and angioplasty proced ure performed by Dr. Macedo. A total of 10.7 minutes of fluoroscopic time was utilized during the proc edure and and 0 spot images are saved to PACS. IMPRESSION: As Above.
[2018-03-29] MEDS: INSULIN ASPART 100 UNIT/ML 1 ML 10 ML VIAL SQ SCH ×4 (08:44→19:07)
[2018-03-29 08:58] VITALS: RESP 16
[2018-03-29] MEDS ORDERED: CLOPIDOGREL 75 MG TAB PO SCH (09:00)
[2018-03-29] MEDS ORDERED: LORATADINE 10 MG TAB PO SCH (09:00)
[2018-03-29] MEDS ORDERED: ASPIRIN 81 MG PO SCH (09:00)
[2018-03-29] MEDS ORDERED: ISOSORBIDE MONONITRATE ER 30 MG TAB.ER.24H PO PRN (09:00)
[2018-03-29] MEDS ORDERED: AMIODARONE 100 MG TAB PO SCH (09:00)
[2018-03-29] MEDS ORDERED: COLLAGENASE 250 UNIT/GM OINTMENT 30 GM TUBE TOPICAL SCH (09:00)
[2018-03-29] MEDS ORDERED: ISOSORBIDE MONONITRATE ER 30 MG TAB.ER.24H PO SCH (09:00)
[2018-03-29] MEDS ORDERED: MIDODRINE 5 MG TAB PO PRN (09:00)
[2018-03-29] MEDS ORDERED: DULoxetine HCL 60 MG CAPSULE.DR PO SCH (09:00)
[2018-03-29] MEDS ORDERED: EZETIMIBE 10 MG TAB PO SCH (09:00)
[2018-03-29] MEDS ORDERED: MUPIROCIN 2% OINT 22 GM TUBE TOPICAL SCH (09:00)
--- NOTE | 2018-03-29 09:25 | DS ---
DISCHARGE SUMMARY ADMISSION DATE: March 28, 2018 DISCHARGE DATE: March 29, 2018 BRIEF HISTORY: This is a pleasant 72-year-old female patient who sees Dr. Combs in the office as an outpatient and was seen recently by Dr. Levy for critical limb ischemia of the left foot, underwent a peripheral angiogram and that revealed severe bilateral SFA disease. She underwent a CORN PICKER of the left SFA a few weeks ago and she is going to have a toe amputation in next few days, and yesterday she was brought in and underwent a CORN PICKER of the right SFA from the left groin approach. On follow up with her today, she did have a good night. She does have a very small amount of oozing from the left groin. No discrete hematoma noted. The patient is going to have dialysis today and she will be discharged on dual antiplatelet therapy including aspirin and Plavix. She will be on Zetia because she is intolerant to statin. MMLULAL / SUBHAN: [id number] /
[2018-03-29] MEDS: INSULIN DETEMIR 100 UNIT/ML 10 ML VIAL SQ SCH (10:16)
[2018-03-29] MEDS: SULFAMETHOX-TMP 400-80MG 1 EACH TAB PO SCH (10:18)
[2018-03-29] MEDS: GABAPENTIN 300 MG CAP PO SCH (10:18)
[2018-03-29] MEDS: DOCUSATE 100 MG CAP PO SCH (10:18)
[2018-03-29] MEDS: FUROSEMIDE 80 MG TAB PO SCH ×2 (10:18→19:06)
[2018-03-29 10:23] LABS: Glucose,Whole Blood 198 mg/dL (75-99)
--- NOTE | 2018-03-29 10:24 | P.NPCON ---
History of Present Illness - Reason for Consult end stage renal disease - History of Present Illness Reason for consultation: End-stage renal disease History of present illness: Patient is a 75-year-old female seen in renal consultation for end-stage renal disease. She is maintained on hemodialysis on a Monday schedule via left upper extremity AV fistula. Patient underwent peripheral injury grandmas and outpatient that revealed critical left and right SFA lesion. She underwent BANDER AND CELLOPHANER MACHINE HELPER of the left SFA and underwent BANDER AND CELLOPHANER MACHINE HELPER of the right SFA yesterday. Currently resting in bed. Denies chest pain or shortness of breath. No fever or chills. Last hemodialysis was on Monday. No vomiting or diarrhea. Hemodynamically stable. Vital signs are stable. General: The patient appeared well nourished and normally developed. HEENT: Head exam is unremarkable. Neck is without jugular venous distension. LUNGS: Lungs are clear to auscultation and percussion. Breath sounds decreased. HEART: Rate and Rhythm are regular. First and second heart sounds normal. No murmurs, rubs or gallops. ABDOMEN: Abdominal exam reveals normal bowel sounds. Non-tender and non- distended. No evidence of peritonitis. EXTREMITITES: No clubbing, cyanosis, or edema. Past Medical History Past Medical History: Atrial Fibrillation, Coronary Artery Disease (CAD), Heart Failure, COPD, Diabetes Mellitus, GERD/Reflux, Hyperlipidemia, Hypertension, Myocardial Infarction ([place]), Pneumonia, Renal Disease, Sleep Apnea/CPAP/BIPAP Additional Past Medical History / Comment(s): HEMODIALYSIS- MONDAY,MONDAY, AND MONDAY . SEE HISTORY AND PHYSICAL. USES WHEELCHAIR-TRANSFERS ONLY -CAN TAKE A COUPLE OF STEPS Last Myocardial Infarction Date:: 2015 History of Any Multi-Drug Resistant Organisms: MRSA Date of last positivie culture/infection: 02/09/18 MDRO Source:: LT THIRD TOE Past Surgical History: Back Surgery, Cholecystectomy, Heart Catheterization, Heart Catheterization With Stent, Hysterectomy, Orthopedic Surgery Additional Past Surgical History / Comment(s): PCI with stents, several back surgeries-lumbar, bilateral carpal tunnel releases, bilateral cataract removals , port then fistula for hemodialysis. PTBA to left leg 03-02-18 Past Anesthesia/Blood Transfusion Reactions: Previous Problems w/ Anesthesia Additional Past Anesthesia/Blood Transfusion Reaction / Comment(s): Confusion that resolved. Date of Last Stent Placement:: 10/06/17 Past Psychological History: No Psychological Hx Reported Additional Psychological History / Comment(s): Single but lives with her daughter who is her caregiver. No experience. No recent travel. No animals in the home. lifelong nonsmoker Smoking Status: Never smoker Past Alcohol Use History: None Reported Additional Past Alcohol Use History / Comment(s): Patient had exposure to secondhand smoke with her . Past Drug Use History: None Reported - Past Family History Father Additional Family Medical History / Comment(s): Brain aneurysm ; age 72 Sister(s) Family Medical History: Hypertension Additional Family Medical History / Comment(s): Aortic stenosis; mitral valve disease Mother Family Medical History: No Reported History, AFIB, CVA/TIA, Hypertension Additional Family Medical History / Comment(s): mother age 83 Daughter(s) Family Medical History: Asthma Son(s) Family Medical History: Asthma Medications and Allergies Home Medications Medication Instructions Recorded Confirmed Type DULoxetine HCL [Cymbalta] 60 mg PO DAILY 08/04/14 03/28/18 History Fish Oil/Dha/Epa [Fish Oil 1,200 1 cap PO MOWEFR 08/04/14 03/28/18 History mg Fish Oil] Amiodarone HCl [Pacerone] 100 mg PO DAILY 11/22/15 03/28/18 History Docusate [Colace] 100 mg PO BID 11/22/15 03/28/18 History Ezetimibe [Zetia] 10 mg PO DAILY 11/22/15 03/28/18 History Isosorbide Mononitrate ER [Imdur] 30 mg PO DAILY PRN 11/22/15 03/28/18 History Gabapentin [Neurontin] 300 mg PO BID #60 capsule 11/27/15 03/28/18 Rx Cranberry 4200mg-Vitamin C 1 tab PO BID 12/25/16 03/28/18 History Omeprazole 20 mg PO DAILY 12/25/16 03/28/18 History Cholecalciferol (Vitamin D3) 2,000 unit PO HS 12/31/16 03/28/18 History [Vitamin D3] Furosemide [Lasix] 80 mg PO BID@0900,1600 tab 01/13/17 03/28/18 Rx Ferrous Sulfate [Iron (65 MG 325 mg PO HS 05/05/17 03/28/18 History Elemental)] Insulin Aspart [NovoLOG See Protocol SQ AC-TID 05/05/17 03/20/18 History (formulary)] Magnesium Oxide [Mag-Ox] 250 mg PO HS 05/05/17 03/28/18 History Sevelamer [Renvela] 800 mg PO TID-W/MEALS #90 tab 05/15/17 03/28/18 Rx Insulin Aspart [NovoLOG 12 unit SQ AC-BRKFST 08/16/17 03/28/18 History (formulary)] Clopidogrel [Plavix] 75 mg PO DAILY #30 tab 08/21/17 03/28/18 Rx Fexofenadine HCl [Amanda Allergy] 180 mg PO DAILY 09/27/17 03/28/18 History Insulin Aspart [NovoLOG] 14 unit SQ AC-LUNCH 09/27/17 03/28/18 History Insulin Aspart [NovoLOG] 14 unit SQ AC-SUPPER 09/27/17 03/28/18 History Midodrine HCl [ProAmatine] 10 mg PO TUTHSA PRN 10/23/17 03/28/18 History Acetaminophen Tab [Tylenol] 650 mg PO Q6H PRN 11/09/17 03/28/18 History Darbepoetin Aron [Aranesp] 40 mcg SQ Q7D 02/16/18 03/28/18 History Metoprolol Succinate (ER) [Toprol 25 mg PO SUMOWEFR 02/16/18 03/28/18 History XL] Sulfamethox-Tmp 400-80Mg [Bactrim 1 tab PO Q12HR #28 tablet 02/19/18 03/28/18 Rx SS 400-80 mg] Insulin Glargine [Lantus] 25 unit SQ BID 02/27/18 03/28/18 History Aspirin [Adult Low Dose Aspirin EC] 81 mg PO DAILY 03/02/18 03/28/18 History Balsalazide Disodium [Colazal] 750 mg PO TID 03/05/18 03/28/18 History Mupirocin [Mupirocin 2%] 1 applic TOPICAL DAILY #30 gm 03/05/18 03/20/18 Rx Collagenase [Santyl] 1 applic TOPICAL DAILY 03/20/18 03/20/18 History Allergies Allergy/AdvReac Type Severity Reaction Status Date / Time KUSHAL Inhibitors Allergy Swelling Verified 03/20/18 08:29 ARB-Angiotensin Receptor Allergy Swelling Verified 03/20/18 08:29 Antagonist cephalexin monohydrate Allergy Rash/Hives, Verified 03/20/18 08:29 [From Keflex] MOUTH SWELLING propoxyphene HCl AdvReac Hallucinati Verified 03/20/18 08:29 [From Darvon] ons Bftxixi-Psb-Pvz Reductase AdvReac Myalgia Verified 03/20/18 08:29 Inhibitor Physical Exam Vitals: Vital Signs Temp Pulse Pulse Resp BP Pulse Ox 03/29/18 08:50 98.5 F 90 16 146/65 97 03/29/18 04:00 98.5 F 85 18 150/66 96 03/29/18 00:00 98.7 F 93 18 138/82 93 L 03/28/18 21:53 93 18 100 03/28/18 20:00 18 03/28/18 19:53 95 18 99 03/28/18 19:38 88 18 134/59 100 03/28/18 19:00 98.1 F 84 18 134/62 100 03/28/18 18:40 87 16 135/62 97 03/28/18 18:30 88 135/67 03/28/18 17:39 87 16 149/65 96 03/28/18 17:10 140/65 03/28/18 16:20 86 16 168/74 98 03/28/18 15:51 84 16 148/68 98 03/28/18 15:20 85 16 168/74 97 03/28/18 15:05 86 18 171/73 97 03/28/18 14:50 85 16 174/74 98 03/28/18 14:35 85 16 160/71 97 Intake and Output 03/28/18 03/29/18 03/29/18 22:59 06:59 14:59 Intake Total 80 360 Balance 80 360 Intake: IV 80 Sodium Chloride 0.9% 1, 80 000 ml In Empty Bag 1 bag @ 1 ML/KG/HR 93.89 mls/ hr IV .[id number] ONE Rx#: [id number] Oral 360 Other: Voiding Method Incontinent Incontinent # Voids 0 Weight 105.2 kg 101 kg Results - Lab Results Most recent lab results Calcium 9.0 mg/dL (8.4-10.2) 03/29/18 06:38 Magnesium 2.7 mg/dL (1.6-2.3) H 03/29/18 06:38 03/29/18 06:38 03/29/18 06:38 Assessment and Plan Plan: Assessment: 1. End-stage renal disease maintained on hemodialysis on a Monday schedule via left upper extremity AV fistula. 2. Peripheral arterial disease status post BANDER AND CELLOPHANER MACHINE HELPER of the right SFA on March 28. 3. Insulin-dependent diabetes mellitus. 4. Anemia of chronic kidney disease maintained on Aranesp. 5. 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 6. Hypertension with chronic kidney disease. Controlled. Plan: Hemodialysis today. I will decrease Bactrim to once daily. Stable to be discharged home from nephrology standpoint after dialysis today. Thank you for the consultation. I will continue to follow patient with you during her hospital stay.
[2018-03-29 11:27] LABS: Glucose,Whole Blood 184 mg/dL (75-99)
[2018-03-29 14:37] LABS: Hemoglobin A1C 7.1 % (4.0-6.0)
[2018-03-29 16:47] VITALS: BP 147/59; PULSE 93
[2018-03-29 16:50] LABS: Glucose,Whole Blood 129 mg/dL (75-99)
[2018-03-30] MEDS ORDERED: METOPROLOL SUCCINATE (ER) 25 MG TAB.ER.24H PO SCH (09:00)
[2018-03-30] MEDS ORDERED: SULFAMETHOX-TMP 400-80MG 1 EACH TAB PO SCH (09:00)
[2018-04-03] MEDS ORDERED: DARBEPOETIN ALFA 40 MCG/0.4 ML SYRINGE SQ SCH (12:00)
== END 2018-03-29 19:11 | disposition home or self-care (01) ==
LOC: CATHCVL 08:03 → 3SCARD 17:59 → CATHCVL 03-29 19:11
PROVIDERS: ATTEND Internal Medicine Interventional Cardiology
DX: E11.51 Type 2 diabetes mellitus with diabetic peripheral angiopathy without gangrene (principal); I48.0 Paroxysmal atrial fibrillation; I13.2 Hypertensive heart and chronic kidney disease with heart failure and with stage 5 chronic kidney disease, or end stage renal disease; E10.22 Type 1 diabetes mellitus with diabetic chronic kidney disease; N18.6 End stage renal disease; I50.32 Chronic diastolic (congestive) heart failure; Z99.2 Dependence on renal dialysis; Z79.4 Long term (current) use of insulin; E78.5 Hyperlipidemia, unspecified; D63.1 Anemia in chronic kidney disease; I25.10 Atherosclerotic heart disease of native coronary artery without angina pectoris; Z95.5 Presence of coronary angioplasty implant and graft; I08.0 Rheumatic disorders of both mitral and aortic valves; J44.9 Chronic obstructive pulmonary disease, unspecified; K21.9 Gastro-esophageal reflux disease without esophagitis; I25.2 Old myocardial infarction; G47.30 Sleep apnea, unspecified; Z99.89 Dependence on other enabling machines and devices; Z79.02 Long term (current) use of antithrombotics/antiplatelets; Z88.1 Allergy status to other antibiotic agents; Z88.8 Allergy status to other drugs, medicaments and biological substances
CPT/HCPCS: 37225; 37252; 80048; 83735; 85025; 83036; C1894 ×3; C1769 ×4; C1725; C1714; C1753; C1884; C2623; J2250; J2001; J1644; Q9966; 90935

== ENCOUNTER → 2018-10-23 | Outpatient (CLI) | payer MEDICARE ==
[2018-10-23 17:54] LABS: African American GFR (CKD) 7.3 (60.0-200.0); Albumin/Globulin Ratio 1.67 (1.60-3.17); Anion Gap 15.3 mmol/L (4.00-12.00); BUN/Creat Ratio 12.79 Ratio (12.00-20.00); Calcium 9.1 mg/dL (8.7-10.3); Carbon Dioxide 24.7 mmol/L (21.6-31.8); Globulin 2.4 g/dL (1.6-3.3); LDL Cholesterol,Calculated 86.8 mg/dL (0.0-131.0); Potassium 4.7 mmol/L (3.5-5.5); Total Bilirubin 0.3 mg/dL (0.2-1.2); Total Protein 6.4 g/dL (6.2-8.2); VLDL Calculation 67.2 mg/dL (5.00-40.00)
[2018-10-23 19:34] LABS: Hemoglobin A1C 7.2 % (4.0-6.0)
== END | disposition home or self-care (01) ==
LOC: LABWHC1 09:25
PROVIDERS: ATTEND Internal Medicine Endocrinology, Diabetes & Metabolism
DX: E11.65 Type 2 diabetes mellitus with hyperglycemia (principal)
CPT/HCPCS: 36415; 80053; 80061; 82043; 82570; 83036; 84443

== ENCOUNTER → 2019-02-11 | Outpatient (CLI) | payer MEDICARE ==
[2019-02-11 13:38] LABS: Potassium 4.4 mmol/L (3.5-5.1)
[2019-02-11 13:40] LABS: HCT 34.3 % (34.0-46.0); HGB 11.2 gm/dL (11.4-16.0); MCH 32.6 pg (25.0-35.0); MCHC 32.6 g/dL (31.0-37.0); Macrocytosis Slight; Platelet Count 207 k/uL (150-450); RBC 3.43 m/uL (3.80-5.40); RDW 15.2 % (11.5-15.5); WBC 9.9 k/uL (3.8-10.6)
== END | disposition home or self-care (01) ==
LOC: LABPAT 12:16
PROVIDERS: ATTEND Internal Medicine Cardiovascular Disease
DX: Z01.812 Encounter for preprocedural laboratory examination (principal); I25.10 Atherosclerotic heart disease of native coronary artery without angina pectoris
CPT/HCPCS: 80051; 82565; 84520; 85027

== ENCOUNTER 2019-02-12 08:07 | Day surgery (SDC) | payer MEDICARE ==
[~2019-02-12 08:07] MED LIST changes: +ALPRAZolam 0.25 MG TAB PO PRN; +ALPRAZolam 0.5 MG TAB PO PRN; +ASPIRIN 325 MG TAB PO ONE; +ASPIRIN 325 MG TAB PO STA; +NITROGLYCERIN SL TABS 0.4 MG TAB SUBLINGUAL PRN
[2019-02-12 08:35] LABS: Glucose,Whole Blood 185 mg/dL (75-99)
[2019-02-12] MEDS ORDERED: fentaNYL (PF) 50 MCG/ML 2 ML AMP ONE (08:39)
[2019-02-12] MEDS ORDERED: LIDOCAINE 1% INJ 10MG/ML (20 ML MDV) ONE ×2 (08:39→09:01)
[2019-02-12] MEDS ORDERED: fentaNYL (PF) 50 MCG/ML 2 ML AMP IVP ONE (08:55)
[2019-02-12] MEDS ORDERED: MIDAZOLAM 2 MG/2 ML VIAL IM ONE (08:55)
[2019-02-12] MEDS ORDERED: LIDOCAINE 1% INJ 10MG/ML (20 ML MDV) SQ ONE ×2 (08:57→09:02)
[2019-02-12 09:29] LABS: O2 Sat Blood Gas 57.9 %
[2019-02-12 09:32] LABS: O2 Sat Blood Gas 88.5 %
[2019-02-12 09:35] LABS: O2 Sat Blood Gas 61.8 %
[2019-02-12] MEDS ORDERED: RX INFO: IV CONTRAST WAS GIVEN 1 EACH MISC MISCELLANE PRN (09:53)
[2019-02-12] MEDS ORDERED: IOPAMIDOL-370 125ML BTL INJ ONE (09:54)
[2019-02-12] MEDS ORDERED: MIDODRINE 5 MG TAB PO PRN (09:54)
[2019-02-12] MEDS: SODIUM CHLORIDE 0.9% 1,000 ML IV SCH ×2 (10:00→20:57)
[2019-02-12] MEDS ORDERED: DARBEPOETIN ALFA 40 MCG/0.4 ML SYRINGE SQ SCH (10:30)
--- NOTE | 2019-02-12 10:56 | US ---
EXAMINATION TYPE: US carotid duplex BILAT DATE OF EXAM: 02/12/2019 COMPARISON: NONE CLINICAL HISTORY: Pre-Op Cardiac Surgery. HTN today, heart cath today EXAM MEASUREMENTS: RIGHT: Peak Systolic Velocity (PSV) cm/sec ----- Right CCA: 52.3 ----- Right ICA: 71.3 ----- Right ECA: 71.3 ICA/CCA ratio: 1.4 RIGHT: End Diastole cm/sec ----- Right CCA: 7.8 ----- Right ICA: 15.3 ----- Right ECA: 0.0 LEFT: Peak Systolic Velocity (PSV) cm/sec ----- Left CCA: 65.8 ----- Left ICA: 81.2 ----- Left ECA: 65.8 ICA/CCA ratio: 1.2 LEFT: End Diastole cm/sec ----- Left CCA: 9.8 ----- Left ICA: 18.6 ----- Left ECA: 0.0 VERTEBRALS (direction of flow): Right Vertebral: Antegrade Left Vertebral: Antegrade Rhythm: Normal Bilateral wall thickening. No elevated velocities or significant stenosis. Plaque seen in left bulb a nd distal anterior right CCA. IMPRESSION: 1. Bilateral atherosclerotic plaque with no significant hemodynamic stenosis. Criteria for Assigning % of Stenosis / Diameter reduction (Estimation based on the indirect measurements of the internal carotid artery velocities (ICA PSV). 1. Normal (no stenosis)=ICA PSV < 125 cm/s: ratio < 2.0: ICA EDV<40 cm/s. 2. Less than 50% stenosis=ICA PSV < 125 cm/s: ratio < 2.0: ICA EDV<40 cm/s. 3. 50 to 69% stenosis=ICA PSV of 125 to 230 cm/s: ration 2.0 ? 4.0: ICA EDV 40-100 cm/s. 4. Greater than 70% stenosis to near occlusion= ICA PSV > 230 cm/s: ratio > 4.0: ICA EDV > 100 cm/s. 5. Near occlusion= ICA PSV velocities may be low or undetectable: variable ratio and ICA EDV. 6. Total occlusion=unable to detect flow.
[2019-02-12 11:24] VITALS: BMI 37.1
[2019-02-12 11:31] LABS: Calcium 8.8 mg/dL (8.4-10.2); Potassium 4.1 mmol/L (3.5-5.1)
[2019-02-12 11:36] LABS: Basophils # (A) 0.1 k/uL (0-0.2); Basophils % (A) 1 %; Eosinophils # (A) 0.4 k/uL (0-0.7); Eosinophils % (A) 5 %; HCT 29.7 % (34.0-46.0); HGB 9.8 gm/dL (11.4-16.0); Lymphocytes # (A) 1.1 k/uL (1.0-4.8); Lymphocytes % (A) 13 %; MCH 32.6 pg (25.0-35.0); MCHC 32.8 g/dL (31.0-37.0); MCV 99.3 fL (80.0-100.0); Macrocytosis Slight; Mean Platelet Volume 6.9; Monocytes # (A) 0.4 k/uL (0-1.0); Monocytes % (A) 5 %; Neutrophils # (A) 6.3 k/uL (1.3-7.7); Neutrophils % (A) 74 %; Platelet Count 195 k/uL (150-450); RBC 2.99 m/uL (3.80-5.40); RDW 15.3 % (11.5-15.5); WBC 8.4 k/uL (3.8-10.6)
[2019-02-12 11:45] LABS: Glucose,Whole Blood 157 mg/dL (75-99)
[2019-02-12] MEDS: INSULIN ASPART (NovoLOG) 100 UNIT/ML VIAL SQ SCH (12:19)
[2019-02-12] MEDS: SEVELAMER 800 MG TAB PO SCH ×2 (13:26→17:35)
--- NOTE | 2019-02-12 15:17 | XR ---
EXAMINATION TYPE: XR chest 1V DATE OF EXAM: 02/12/2019 COMPARISON: 12/26/2018 HISTORY: Preop TECHNIQUE: Single frontal view of the chest is obtained. FINDINGS: There is no focal air space opacity, pleural effusion, or pneumothorax seen. The cardiac silhouette size is within normal limits. The osseous structures are intact. Postsurgical changes ar e noted. Heart size is mildly prominent. Limited inspiration limits assessment for venous congestion. Mild central interstitial prominence noted. IMPRESSION: Stable cardiomegaly. Mild central interstitial prominence could been the basis of mild c hronic interstitial lung disease or venous congestion. Prominence of the upper left mediastinum is st able dating back to 2018.
[2019-02-12 16:33] LABS: Glucose,Whole Blood 142 mg/dL (75-99)
--- NOTE | 2019-02-12 16:49 | P.CONS ---
History of Present Illness - Reason for Consult Type 2 diabetes mellitus, end-stage renal disease recommendations regarding - History of Present Illness Patient is a ghtweftr-vpug-usf female incisional disease cerebrovascular disease and coronary artery disease previous cardiac catheterization and stents in the past is admitted for elective cardiac catheterization for preoperative clearance for mitral valvular disease. Patient is clinically doing well at this time patient blood sugars are well controlled on home regimen which is being continued along with supplemental sliding scale insulin patient receiving hemodialysis today patient denied any fever chills nausea vomiting abdominal pain. Review of Systems REVIEW OF SYSTEMS: CONSTITUTIONAL: No fever, no malaise, no fatigue. HEENT: No recent visual problems or hearing problems. Denied any sore throat. CARDIOVASCULAR: No chest pain, orthopnea, PND, no palpitations, no syncope. PULMONARY: No shortness of breath, no cough, no hemoptysis. GASTROINTESTINAL: No diarrhea, no nausea, no vomiting, no abdominal pain. NEUROLOGICAL: No headaches, no weakness, no numbness. HEMATOLOGICAL: Denies any bleeding or petechiae. GENITOURINARY: Denies any burning micturition, frequency, or urgency. MUSCULOSKELETAL/RHEUMATOLOGICAL: Denies any joint pain, swelling, or any muscle pain. ENDOCRINE: Denies any polyuria or polydipsia. The rest of the 14-point review of systems is negative. Past Medical History Past Medical History: Atrial Fibrillation, Coronary Artery Disease (CAD), Heart Failure, Diabetes Mellitus, Dialysis, GERD/Reflux, GI Bleed, Hyperlipidemia, Hypertension, Myocardial Infarction ([place]), Pneumonia, Renal Disease, Sleep Apnea/CPAP/BIPAP, Vascular Disorder Additional Past Medical History / Comment(s): HEMODIALYSIS- MONDAY,MONDAY,AND MONDAY . USES WHEELCHAIR-TRANSFERS ONLY -CAN TAKE A COUPLE OF STEPS, hx. GI bleed >year ago, SOB w/exertion, uses oxygen prn @2l, see Dr Combs H & P Last Myocardial Infarction Date:: 2015 History of Any Multi-Drug Resistant Organisms: MRSA Year Discovered:: 02/09/18 MDRO Source:: LT THIRD TOE Past Surgical History: Back Surgery, Cholecystectomy, Heart Catheterization, Heart Catheterization With Stent, Hysterectomy, Orthopedic Surgery Additional Past Surgical History / Comment(s): PCI with stents, several back surgeries-lumbar, bilateral carpal tunnel releases, bilateral cataract removals, port then fistula for hemodialysis. PTBA to left leg 03-02-18 Past Anesthesia/Blood Transfusion Reactions: Previous Problems w/ Anesthesia Additional Past Anesthesia/Blood Transfusion Reaction / Comm: Confusion that resolved. Date of Last Stent Placement:: 10/06/17 Smoking Status: Never smoker - Past Family History Father Additional Family Medical History / Comment(s): Brain aneurysm ; age 72 Sister(s) Family Medical History: Hypertension Additional Family Medical History / Comment(s): Aortic stenosis; mitral valve disease Mother Family Medical History: No Reported History, AFIB, CVA/TIA, Hypertension Additional Family Medical History / Comment(s): mother age 83 Daughter(s) Family Medical History: Asthma Son(s) Family Medical History: Asthma Medications and Allergies Home Medications Medication Instructions Recorded Confirmed Type DULoxetine HCL [Cymbalta] 60 mg PO DAILY 08/04/14 02/12/19 History Fish Oil/Dha/Epa [Fish Oil 1,200 1 cap PO MOWEFR 08/04/14 02/12/19 History mg Fish Oil] Amiodarone HCl [Pacerone] 100 mg PO DAILY 11/22/15 02/12/19 History Docusate [Colace] 100 mg PO BID 11/22/15 02/12/19 History Ezetimibe [Zetia] 10 mg PO DAILY 11/22/15 02/12/19 History Gabapentin [Neurontin] 300 mg PO BID #60 capsule 11/27/15 02/12/19 Rx Cranberry 4200mg-Vitamin C 1 tab PO BID 12/25/16 02/12/19 History Omeprazole 20 mg PO DAILY 12/25/16 02/12/19 History Cholecalciferol (Vitamin D3) 2,000 unit PO HS 12/31/16 02/12/19 History [Vitamin D3] Furosemide [Lasix] 80 mg PO BID@0900,1600 tab 01/13/17 02/12/19 Rx Ferrous Sulfate [Iron (65 MG 325 mg PO HS 05/05/17 02/12/19 History Elemental)] INSULIN ASPART (NovoLOG) [NovoLOG See Protocol SQ AC-TID 05/05/17 02/11/19 History (formulary)] Magnesium Oxide [Mag-Ox] 250 mg PO HS 05/05/17 02/12/19 History Sevelamer [Renvela] 800 mg PO TID-W/MEALS #90 tab 05/15/17 02/12/19 Rx INSULIN ASPART (NovoLOG) [NovoLOG 12 unit SQ AC-BRKFST 08/16/17 02/12/19 History (formulary)] Clopidogrel [Plavix] 75 mg PO DAILY #30 tab 08/21/17 02/12/19 Rx Insulin Aspart [NovoLOG] 14 unit SQ AC-LUNCH 09/27/17 02/12/19 History Insulin Aspart [NovoLOG] 14 unit SQ AC-SUPPER 09/27/17 02/12/19 History Midodrine HCl [ProAmatine] 10 mg PO TUTHSA PRN 10/23/17 02/12/19 History Acetaminophen Tab [Tylenol] 650 mg PO Q6H PRN 11/09/17 02/12/19 History Darbepoetin Aron [Aranesp] 40 mcg SQ TU 02/16/18 02/12/19 History Metoprolol Succinate (ER) [Toprol 25 mg PO SUMOWEFR 02/16/18 02/12/19 History XL] Insulin Glargine [Lantus] 25 unit SQ BID 02/27/18 02/12/19 History Aspirin [Adult Low Dose Aspirin EC] 81 mg PO DAILY 03/02/18 02/12/19 History Metolazone [Zaroxolyn] 5 mg PO BID 02/11/19 02/12/19 History Allergies Allergy/AdvReac Type Severity Reaction Status Date / Time KUSHAL Inhibitors Allergy Swelling Verified 02/11/19 09:45 ARB-Angiotensin Receptor Allergy Swelling Verified 02/11/19 09:45 Antagonist cephalexin monohydrate Allergy Rash/Hives, Verified 02/11/19 09:45 [From Keflex] MOUTH SWELLING propoxyphene HCl AdvReac Hallucinati Verified 02/11/19 09:45 [From Darvon] ons Jupivny-Spr-Ovg Reductase AdvReac Myalgia Verified 02/11/19 09:45 Inhibitor Physical Exam Vitals: Vital Signs Temp Pulse Pulse Resp BP Pulse Ox 02/12/19 16:00 87 86 18 02/12/19 15:51 97.3 F L 86 160/80 100 02/12/19 13:03 92 163/68 97 02/12/19 12:05 88 179/90 98 02/12/19 12:00 87 18 02/12/19 11:35 87 188/75 97 02/12/19 11:05 86 184/77 93 L 02/12/19 10:50 88 171/74 92 L 02/12/19 10:35 86 167/74 90 L 02/12/19 10:20 97.3 F L 87 18 176/68 91 L 02/12/19 08:25 97.6 F 87 18 165/98 95 Intake and Output 02/12/19 02/12/19 02/12/19 06:59 14:59 22:59 Intake Total 125 Balance 125 Intake: IV 125 Other: Voiding Method Diaper Diaper Incontinent Incontinent PHYSICAL EXAMINATION: GENERAL: The patient is alert and oriented x3, not in any acute distress. Well developed, well nourished. HEENT: Pupils are round and equally reacting to light. EOMI. No scleral icterus. No conjunctival pallor. Normocephalic, atraumatic. No pharyngeal erythema. No thyromegaly. CARDIOVASCULAR: S1 and S2 present. No murmurs, rubs, or gallops. PULMONARY: Chest is clear to auscultation, no wheezing or crackles. ABDOMEN: Soft, nontender, nondistended, normoactive bowel sounds. No palpable organomegaly. MUSCULOSKELETAL: No joint swelling or deformity. EXTREMITIES: No cyanosis, clubbing, or pedal edema. NEUROLOGICAL: Gross neurological examination did not reveal any focal deficits. SKIN: No rashes. Results CBC & Chem 7: 02/12/19 10:39 02/12/19 10:39 Labs: Abnormal Lab Results - Last 24 Hours (Table) 02/12/19 02/12/19 02/12/19 Range/Units 08:32 10:39 10:39 RBC 2.99 L (3.80-5.40) m/uL Hgb 9.8 L (11.4-16.0) gm/dL Hct 29.7 L (34.0-46.0) % Sodium 129 L (137-145) mmol/L Chloride 89 L (98-107) mmol/L BUN 63 H (7-17) mg/dL Creatinine 5.95 H (0.52-1.04) mg/dL Glucose 157 H (74-99) mg/dL POC Glucose (mg/dL) 185 H (75-99) mg/dL 02/12/19 02/12/19 Range/Units 11:42 16:32 RBC (3.80-5.40) m/uL Hgb (11.4-16.0) gm/dL Hct (34.0-46.0) % Sodium (137-145) mmol/L Chloride (98-107) mmol/L BUN (7-17) mg/dL Creatinine (0.52-1.04) mg/dL Glucose (74-99) mg/dL POC Glucose (mg/dL) 157 H 142 H (75-99) mg/dL Assessment and Plan Plan: -Type 2 diabetes mellitus patient uses 14 units of Lantus and blood sugars are well controlled with 40 units of Lantus will continue pre-meal insulin. -End-stage indices modalities dependent patient is undergoing hemodialysis today. -Anemia of chronic kidney disease -Hyponatremia expected to improve with hemodialysis -Coronary artery disease patient underwent cardiac catheterization as a part of preoperative clearance for mitral valvular surgery -Atrial fibrillation: Presently rate controlled anticoagulation as per primary service -Type 2 diabetes mellitus -Hyperlipidemia -Hypertension -Peripheral vascular disease patient has some mild bilateral coronary atherosclerotic vascular disease.
--- NOTE | 2019-02-12 17:23 | CONS ---
CONSULTATION REASON FOR CONSULT: End-stage renal disease. HISTORY OF PRESENT ILLNESS: The patient is a 73-year-old female with end-stage renal disease, on hemodialysis on a Monday, , Monday schedule. The patient was admitted to the hospital for cardiac catheterization, which was done this morning which did not show any need for intervention. The patient does have a history of coronary artery disease status post coronary stents previously. No complaints of chest pain. No fever, chills, nausea, vomiting. PAST MEDICAL HISTORY: End-stage renal disease, CKD mineral bone disorder, hypertension, coronary artery disease, history of atrial fibrillation, MS, obstructive sleep apnea, type 2 diabetes, COPD. PAST SURGICAL HISTORY: Back surgery, cholecystectomy, cardiac catheterization, coronary stent placement, hysterectomy, cataract surgeries, AV fistula, left leg balloon angioplasty. SOCIAL HISTORY: Negative for smoking, drug abuse or alcohol abuse. MEDICATIONS: Medications prior to admission included Plavix, vitamin D3, amiodarone, Tylenol, Neurontin, Lasix, Zetia, Colace, Aranesp, Cymbalta, Zaroxolyn, insulin, Mag-Ox, omeprazole, Renvela, midodrine and insulin. EXAMINATION: Patient is currently comfortable, awake, not in any acute distress. Blood pressure is 179/90, heart rate 88 per minute. She is afebrile. Examination of the heart S1, S2. Examination of the lungs, bilateral breath sounds are heard. ABDOMEN: Soft, nontender. Examination of lower extremities shows no evidence of edema. 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 LAB: Show sodium 129, potassium 4.1, BUN 63, creatinine 5.95, hemoglobin 9.8 g/dL. ASSESSMENT: 1. End-stage renal disease, on hemodialysis on a Monday, , Monday schedule. 2. Mild volume overload with hypertension and volume sensitive hypertension. Patient's blood pressure usually drops during treatment and she needs to take midodrine. Therefore, I will hold off on any antihypertensive treatment for now and we will have her start dialysis ROBERTO. 3. Anemia of chronic disease. 4. Coronary artery disease status post cardiac catheterization today with no need for further intervention. 5. Chronic kidney disease mineral bone disorder. 6. Hypertension, partly volume sensitive. PLAN: Hemodialysis today. We will try for 3-4 L as tolerated. Use midodrine if blood pressure drops. Normally patient carries fluid mostly in her lungs and abdomen and her legs are usually not edematous. Thank you for this consultation. MMLULAL / IJN: [id number] /
[2019-02-12] MEDS ORDERED: INSULIN ASPART (NovoLOG) 100 UNIT/ML VIAL SQ SCH (17:30)
[2019-02-12] MEDS: FUROSEMIDE 80 MG TAB PO SCH (17:36)
[2019-02-12] MEDS: ACETAMINOPHEN TAB 325 MG TAB PO PRN (17:42)
[2019-02-12 20:05] LABS: Glucose,Whole Blood 193 mg/dL (75-99)
[2019-02-12 20:21] VITALS: RESP 18
[2019-02-12] MEDS: DOCUSATE 100 MG CAP PO SCH (20:59)
[2019-02-12] MEDS ORDERED: CHOLECALCIFEROL 1,000 UNIT TAB PO SCH (21:00)
[2019-02-12] MEDS ORDERED: CRANBERRY 4200 MG PO SCH (21:00)
[2019-02-12] MEDS ORDERED: MAGNESIUM OXIDE 400 MG TAB PO SCH (21:00)
[2019-02-12] MEDS ORDERED: FERROUS SULFATE 325 MG TAB PO SCH (21:00)
[2019-02-12] MEDS ORDERED: [UNRECOGNIZED DRUG - OTHER] PO SCH (21:00)
[2019-02-12] MEDS: INSULIN DETEMIR (LEVEMIR) 100 UNIT/ML SYR SQ SCH (21:02)
[2019-02-12] MEDS: METOLAZONE 5 MG TAB PO SCH (21:03)
[2019-02-12] MEDS: GABAPENTIN 300 MG CAP PO SCH (21:03)
[2019-02-13 07:19] LABS: Glucose,Whole Blood 183 mg/dL (75-99)
[2019-02-13] MEDS ORDERED: INSULIN ASPART (NovoLOG) 100 UNIT/ML VIAL SQ SCH (07:30)
[2019-02-13] MEDS ORDERED: PANTOPRAZOLE 40 MG TABLET PO SCH (07:30)
[2019-02-13] MEDS: FUROSEMIDE 80 MG TAB PO SCH (08:16)
[2019-02-13] MEDS: METOLAZONE 5 MG TAB PO SCH (08:16)
[2019-02-13] MEDS: SEVELAMER 800 MG TAB PO SCH ×2 (08:16→12:16)
[2019-02-13] MEDS: DOCUSATE 100 MG CAP PO SCH (08:16)
[2019-02-13] MEDS: INSULIN DETEMIR (LEVEMIR) 100 UNIT/ML SYR SQ SCH (08:17)
[2019-02-13] MEDS: ACETAMINOPHEN TAB 325 MG TAB PO PRN (08:26)
[2019-02-13] MEDS: GABAPENTIN 300 MG CAP PO SCH (08:26)
[2019-02-13] MEDS ORDERED: METOPROLOL SUCCINATE (ER) 25 MG TAB.ER.24H PO STA (08:32)
[2019-02-13] MEDS ORDERED: AMIODARONE 100 MG TAB PO SCH (09:00)
[2019-02-13] MEDS ORDERED: ASPIRIN 81 MG PO SCH (09:00)
[2019-02-13] MEDS ORDERED: DULoxetine HCL 60 MG CAPSULE.DR PO SCH (09:00)
[2019-02-13] MEDS ORDERED: METOPROLOL SUCCINATE (ER) 25 MG TAB.ER.24H PO SCH (09:00)
[2019-02-13] MEDS ORDERED: CLOPIDOGREL 75 MG TAB PO SCH (09:00)
[2019-02-13] MEDS ORDERED: EZETIMIBE 10 MG TAB PO SCH (09:00)
[2019-02-13] MEDS ORDERED: NON FORMULARY DRUG (Fish Oil/Dha/Epa [Fish Oil 1,200 Mg Fish Oil] 1 CAP) PO SCH (09:54)
--- NOTE | 2019-02-13 10:17 | P.PN ---
Subjective Patient is seen in follow-up for end-stage renal disease. She is maintained on hemodialysis on Monday schedule. Tolerated hemodialysis was yesterday. No active chest pain or shortness of breath at this time. Vital signs are stable. General: The patient appeared well nourished and normally developed. HEENT: Head exam is unremarkable. Neck is without jugular venous distension. LUNGS: Lungs are clear to auscultation and percussion. Breath sounds decreased. HEART: Rate and Rhythm are regular. First and second heart sounds normal. No murmurs, rubs or gallops. ABDOMEN: Abdominal exam reveals normal bowel sounds. Non-tender and non- distended. No evidence of peritonitis. EXTREMITITES: No clubbing, cyanosis, or edema. Objective - Vital Signs Vital signs: Vital Signs Temp 98.4 F 02/13/19 07:44 Pulse 98 02/13/19 07:44 Resp 18 02/13/19 07:44 BP 165/68 02/13/19 07:44 Pulse Ox 99 02/13/19 07:44 Intake & Output 02/12/19 02/13/19 02/13/19 18:59 06:59 18:59 Intake Total 125 200 Output Total 3000 Balance -2875 200 Intake: IV 125 Oral 200 Output: Hemodialysis 3000 Other: Voiding Method Diaper Diaper Diaper Incontinent Incontinent Incontinent # Voids 1 1 - Labs CBC & Chem 7: 02/12/19 10:39 02/12/19 10:39 Labs: Abnormal Lab Results - Last 24 Hours (Table) 02/12/19 02/12/19 02/12/19 Range/Units 10:39 10:39 11:42 RBC 2.99 L (3.80-5.40) m/uL Hgb 9.8 L (11.4-16.0) gm/dL Hct 29.7 L (34.0-46.0) % Sodium 129 L (137-145) mmol/L Chloride 89 L (98-107) mmol/L BUN 63 H (7-17) mg/dL Creatinine 5.95 H (0.52-1.04) mg/dL Glucose 157 H (74-99) mg/dL POC Glucose (mg/dL) 157 H (75-99) mg/dL 02/12/19 02/12/19 02/13/19 Range/Units 16:32 20:03 06:48 RBC (3.80-5.40) m/uL Hgb (11.4-16.0) gm/dL Hct (34.0-46.0) % Sodium (137-145) mmol/L Chloride (98-107) mmol/L BUN (7-17) mg/dL Creatinine (0.52-1.04) mg/dL Glucose (74-99) mg/dL POC Glucose (mg/dL) 142 H 193 H 183 H (75-99) mg/dL Assessment and Plan Plan: Assessment: 1. End-stage renal disease maintained on hemodialysis on Monday schedule. 2. Chronic hypotension maintained on midodrine with dialysis. 3. Coronary artery disease status post cardiac catheterization on February 12. No interventions done. 4. Insulin-dependent diabetes mellitus. 5. Anemia of chronic kidney disease maintained on Aranesp. 6. 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 Plan: Hemodialysis tomorrow. Stable to be discharged home from nephrology standpoint.
[2019-02-13 11:24] VITALS: BP 157/74; PULSE 92; TEMP 98.1
--- NOTE | 2019-02-13 11:47 | P.CARDCATH ---
Date of Procedure: 02/13/19 Preoperative Diagnosis: AORTIC STENOSIS AND CORONARY ARTERY DISEASE Postoperative Diagnosis: SEVERE AORTIC STENOSIS. Critical lesion in the diagonal Description of Procedure: HISTORY: This is a 73-year-old female with history of ischemic heart disease wit h a previous stent placement of the mid LAD, angioplasty of the diagonal branch and also stent placement of the OM branch of the circumflex done in 2018. She is also known to have aortic stenosis and recent echocardiogram was suggestive of severe aortic stenosis. Patient has chronic renal failure on dialysis and history of hypertension, diabetes, and felt to be a high risk candidate for open surgical aortic valve replacement. Patient was seen by Dr. Rock and was felt that patient could be candidate for TAVR. Patient is advised to have a right and left heart catheterization CONSENT:I have discussed the risks, benefits and alternative therapies for the above-mentioned procedure and for both sedation/analgesia as well as necessary blood product administration, if indicated, as they pertain to this patient. The patient has indicated understanding and acceptance of the risks and procedures discussed. PROCEDURE: Patient was brought to the lab in a fasting state. Patient was given some IV sedation. Right heart catheterization: This is performed from the right groin to the right femoral vein using a Marcus-Tavo catheter. Patient tolerated the procedure well. Manual compression was applied for hemostasis. Left heart catheterization: The right groin is infiltrated with lidocaine and right femoral artery was entered using Seldinger technique. A 6-Portuguese catheter was left in place and selective coronary arteriography was performed. Patient tolerated the procedure well. Femoral angiogram was performed and Angio-Seal was applied for hemostasis. No immediate complications were noted and patient was transferred to [facility] in a stable condition Conscious Sedation: Versed 0.5mg Fentanyl 12.5 g Duration 35 minutes HEMODYNAMICS: . The right heart catheterization: The right atrial pressure was 15. The right ventricular blood pressure is 73/15. The pulmonary artery pressure was 79/36/52. The pulmonary wedge pressure was 32/40/32.. Left heart catheterization: The aortic pressure is 170/85 with mean of 113. The left ventricle end-diastolic pressure was 26. The peak gradient across the aortic valve was 48 with a mean of 42. The aortic valve area was 0.467/0.65 with thermodilution cardiac output/Paola cardiac output. The average probably is about 0.55 SELECTIVE CORONARY ARTERIOGRAPHY: LEFT MAIN: Normal length and patent. THE LEFT ANTERIOR DESCENDING CORONARY ARTERY: This is patent at the site of previous stent placement. There is a 99% stenosis of the first diagonal involving the ostium. There is 30-40% lesion in the LAD prior to the diagonal branch. THE LEFT CIRCUMFLEX AND IS CORONARY ARTERY: This is a good caliber vessel giving rise good-sized OM branch. The stent in the OM branch is patent. There is about 30-40% lesion of the circumflex in the midportion THE RIGHT CORONARY ARTERY: . This fair caliber vessel and free of occlusive disease of significance LEFT VENTRICULOGRAPHY: Not performed FINAL IMPRESSION: . Diffuse coronary artery disease with patent stent in the mid LAD and also in the OM branch. Critical lesion involving the ostium of the diagonal. There is a mild to moderate disease in the proximal LAD and also mid circumflex. PLAN: The films were reviewed with Dr. Hinkle. It is felt the diagonal lesion is technically difficult to intervene. Maximum medical therapy is sized to for coronary artery disease. Patient is being seen by Dr. Rock for possible aortic valve replacement PROGNOSIS: Guarded
[2019-02-13 11:50] LABS: Glucose,Whole Blood 264 mg/dL (75-99)
[2019-02-13] MEDS: INSULIN ASPART (NovoLOG) 100 UNIT/ML VIAL SQ SCH (12:16)
--- NOTE | 2019-02-13 14:32 | P.PN ---
Progress Note - Text Progress Note Date: 02/12/19 This is a 73 year old female patient who follows with Nurse Practitioner Giovany Sauer on an outpatient basis. She has a significant cardiac and vascular history, including severe aortic stenosis. She is currently undergoing work up for transcatheter aortic valve replacement with Dr. Rock in the near future. She had heart catheterization 02-12-[address] Combs to evaluate coronary artery disease. Her heart cath films were reviewed with Dr. Rock. Please see Dr. Rock's full consultation from 01/24/19 for full history. The patient was seen in the observation unit post heart catheterization as she was receiving dialysis. She was sleeping at the time and in no distress. P reoperative PFT, carotid dopplers were completed. Full update was provided to her daughter Nisa. The patient may be discharged to home from our standpoint. Stevenson Menendez, the TAVR coordinator, will be in contact with the patient to schedule final preoperative workup before scheduling patient for TAVR. The patient and daughter have our contact information. Thank you Dr. Combs for this consult. Please call us with any further questions.
--- NOTE | 2019-02-13 15:27 | P.DS ---
Providers Attending physician: Chava Combs Consults: 02/12/19 09:58 Consult Physician Routine Consulting Provider: Mariam Botello Consult Reason/Comments: dialysis Do you want consulting provider notified?: Yes 02/12/19 09:59 Consult Physician Routine Consulting Provider: Jessica Holloway Consult Reason/Comments: diabetic management Do you want consulting provider notified?: Yes 02/13/19 08:31 Consult Physician Routine Consulting Provider: Praful Rock Consult Reason/Comments: aortic stenosis Do you want consulting provider notified?: Yes Primary care physician: Giovany Sauer, [facility] Hospital Course: This is a pleasant 73-year-old female who underwent cardiac catheterization yesterday with Dr. Combs. Past medical history significant for ischemic heart disease with prior stent placement of the mid LAD, angioplasty of the diagonal branch and stent placement to the OM branch of the circumflex in 2018, known aortic stenosis, chronic renal failure on hemodialysis, peripheral vascular disease s/p atherectomy and balloon angioplasty right SFA/popiteal, paroxysmal atrial fibrillation not on watermelon inspector anti-coagulation secondary to GI bleeding, chronic diastolic heart failure, hypertension and diabetes mellitus. Right and left heart cath ORIF is per Dr. Rock for possible TAVR. Right heart catheterization revealed a right atrial pressure of 15, right ventricular pressure 73/15, pulmonary artery pressure 76/36/52 with a wedge pressure 32/40/32. Left heart cath revealed left main normal length with no significant disease, LAD patent at the previous site of stent placement, 90% stenosis of the first diagonal involving the ostium, 30-40% lesion in the LAD prior to the diagonal branch, patent stent in the OM, 30-40% lesion of the mid circumflex and RCA free of occlusive disease. Films were reviewed by Dr. Macedo and felt the diagonal lesion was technically difficult to intervene. Maximum medical therapy recommended. She underwent dialysis yesterday. She is seen and examined resting comfortably in bed laying flat no acute distress. Right groin soft, no hematoma, mild ecchymosis and mildly tender. Distal pulses intact. Blood pressure 157/74 heart rate 92 afebrile maintaining oxygen saturation on nasal cannula. Laboratory data reviewed, WBC 8.4, hemoglobin 9.8, platelets 195, sodium 129, potassium 4.1, creatinine 5.95. Currently maintained on Toprol 25 mg every other day, Cymbalta, amiodarone, Colace, Zetia, Neurontin, omeprazole, Lasix, insulin, Renvela, Plavix, Minitran when necessary regarding dialysis. GENERAL: Well-appearing, well-nourished and in no acute distress. NECK: Supple without JVD or thyromegaly. LUNGS: Breath sounds clear to auscultation bilaterally. Respiration equal and unlabored. No wheezes, rales or rhonchi. HEART: Regular rate and rhythm with systolic ejection murmur at the base, no rubs or gallops. S1 and S2 heard. EXTREMITIES: Normal range of motion, no edema. No clubbing or cyanosis. Peripheral pulses intact. Right groin access site, soft, mildly tender, mild ecchymosis, no hematoma and no bleeding. ASSESSMENT Severe aortic stenosis Diffuse coronary artery disease Ischemic heart disease End-stage renal failure on hemodialysis Hypertension Diabetes mellitus PLAN Stable for discharge. The patient has been seen by Dr. Rock and cath films reviewed. Follow-up as an outpatient regarding TAVR procedure pre-operative testing and further scheduling. Follow up in the office with Dr. Combs in 1-week for groin check. Nurse Practitioner note has been reviewed, I agree with a documented findings and plan of care. Patient was seen and examined. Plan - Discharge Summary Discharge Rx Participant: No New Discharge Prescriptions: New Metoprolol Succinate (ER) [Toprol XL] 25 mg PO DAILY tab.er.24h Continue DULoxetine HCL [Cymbalta] 60 mg PO DAILY Fish Oil/Dha/Epa [Fish Oil 1,200 mg Fish Oil] 1 cap PO MOWEFR Amiodarone HCl [Pacerone] 100 mg PO DAILY Docusate [Colace] 100 mg PO BID Ezetimibe [Zetia] 10 mg PO DAILY Gabapentin [Neurontin] 300 mg PO BID #60 capsule Omeprazole 20 mg PO DAILY Cranberry 4200mg-Vitamin C 1 tab PO BID Cholecalciferol (Vitamin D3) [Vitamin D3] 2,000 unit PO HS Furosemide [Lasix] 80 mg PO BID@0900,1600 tab Magnesium Oxide [Mag-Ox] 250 mg PO HS Ferrous Sulfate [Iron (65 MG Elemental)] 325 mg PO HS INSULIN ASPART (NovoLOG) [NovoLOG (formulary)] See Protocol SQ AC-TID Sevelamer [Renvela] 800 mg PO TID-W/MEALS #90 tab INSULIN ASPART (NovoLOG) [NovoLOG (formulary)] 12 unit SQ AC-BRKFST Clopidogrel [Plavix] 75 mg PO DAILY #30 tab Insulin Aspart [NovoLOG] 14 unit SQ AC-SUPPER Insulin Aspart [NovoLOG] 14 unit SQ AC-LUNCH Midodrine HCl [ProAmatine] 10 mg PO TUTHSA PRN PRN Reason: DIALYSIS,LOW BLOOD PRESSURE Acetaminophen Tab [Tylenol] 650 mg PO Q6H PRN PRN Reason: Pain Darbepoetin Aron [Aranesp] 40 mcg SQ TU Insulin Glargine [Lantus] 25 unit SQ BID Aspirin [Adult Low Dose Aspirin EC] 81 mg PO DAILY Metolazone [Zaroxolyn] 5 mg PO BID Discontinued Metoprolol Succinate (ER) [Toprol XL] 25 mg PO SUMOWEFR Discharge Medication List DULoxetine HCL [Cymbalta] 60 mg PO DAILY 08/04/14 [History] Fish Oil/Dha/Epa [Fish Oil 1,200 mg Fish Oil] 1 cap PO MOWEFR 08/04/14 [History] Amiodarone HCl [Pacerone] 100 mg PO DAILY 11/22/15 [History] Docusate [Colace] 100 mg PO BID 11/22/15 [History] Ezetimibe [Zetia] 10 mg PO DAILY 11/22/15 [History] Gabapentin [Neurontin] 300 mg PO BID #60 capsule 11/27/15 [Rx] Cranberry 4200mg-Vitamin C 1 tab PO BID 12/25/16 [History] Omeprazole 20 mg PO DAILY 12/25/16 [History] Cholecalciferol (Vitamin D3) [Vitamin D3] 2,000 unit PO HS 12/31/16 [History] Furosemide [Lasix] 80 mg PO BID@0900,1600 tab 01/13/17 [Rx] Ferrous Sulfate [Iron (65 MG Elemental)] 325 mg PO HS 05/05/17 [History] INSULIN ASPART (NovoLOG) [NovoLOG (formulary)] See Protocol SQ AC-TID 05/05/17 [History] Magnesium Oxide [Mag-Ox] 250 mg PO HS 05/05/17 [History] Sevelamer [Renvela] 800 mg PO TID-W/MEALS #90 tab 05/15/17 [Rx] INSULIN ASPART (NovoLOG) [NovoLOG (formulary)] 12 unit SQ AC-BRKFST 08/16/17 [History] Clopidogrel [Plavix] 75 mg PO DAILY #30 tab 08/21/17 [Rx] Insulin Aspart [NovoLOG] 14 unit SQ AC-LUNCH 09/27/17 [History] Insulin Aspart [NovoLOG] 14 unit SQ AC-SUPPER 09/27/17 [History] Midodrine HCl [ProAmatine] 10 mg PO TUTHSA PRN 10/23/17 [History] Acetaminophen Tab [Tylenol] 650 mg PO Q6H PRN 11/09/17 [History] Darbepoetin Aron [Aranesp] 40 mcg SQ TU 02/16/18 [History] Insulin Glargine [Lantus] 25 unit SQ BID 02/27/18 [History] Aspirin [Adult Low Dose Aspirin EC] 81 mg PO DAILY 03/02/18 [History] Metolazone [Zaroxolyn] 5 mg PO BID 02/11/19 [History] Metoprolol Succinate (ER) [Toprol XL] 25 mg PO DAILY tab.er.24h 02/13/19 [Rx] Follow up Appointment(s)/Referral(s): Chava Combs MD [STAFF PHYSICIAN] - 02/21/19 3:30 pm Patient Instructions/Handouts: Chest Pain (DC) Discharge Disposition: HOME SELF-CARE
[2019-02-14] MEDS ORDERED: METOPROLOL SUCCINATE (ER) 25 MG TAB.ER.24H PO SCH (09:00)
== END 2019-02-13 12:54 | disposition home or self-care (01) ==
LOC: CATHCVL 08:07 → 1SOBS 10:02 → CATHCVL 02-13 12:54
PROVIDERS: ATTEND Internal Medicine Cardiovascular Disease
DX: I35.0 Nonrheumatic aortic (valve) stenosis (principal); I12.0 Hypertensive chronic kidney disease with stage 5 chronic kidney disease or end stage renal disease; E11.22 Type 2 diabetes mellitus with diabetic chronic kidney disease; N18.6 End stage renal disease; D63.1 Anemia in chronic kidney disease; Z99.2 Dependence on renal dialysis; Z79.4 Long term (current) use of insulin; E11.51 Type 2 diabetes mellitus with diabetic peripheral angiopathy without gangrene; E83.9 Disorder of mineral metabolism, unspecified; I25.10 Atherosclerotic heart disease of native coronary artery without angina pectoris; E78.5 Hyperlipidemia, unspecified; E78.00 Pure hypercholesterolemia, unspecified; Z95.5 Presence of coronary angioplasty implant and graft; I48.0 Paroxysmal atrial fibrillation; I95.89 Other hypotension; I25.2 Old myocardial infarction; G47.33 Obstructive sleep apnea (adult) (pediatric); J44.9 Chronic obstructive pulmonary disease, unspecified; Z90.49 Acquired absence of other specified parts of digestive tract; Z90.710 Acquired absence of both cervix and uterus; Z98.49 Cataract extraction status, unspecified eye; Z79.02 Long term (current) use of antithrombotics/antiplatelets; Z79.82 Long term (current) use of aspirin; Z79.899 Other long term (current) drug therapy; Z88.1 Allergy status to other antibiotic agents; Z88.8 Allergy status to other drugs, medicaments and biological substances
CPT/HCPCS: 93460; 94150; 80048; 85018; 82810; 85025; 71045; 93880; C1760; C1769 ×4; C1894 ×2; J2250; J2001; J3010; J0881; Q9967; 90935

== ENCOUNTER 2019-05-09 11:58 | Emergency (ER) | payer MEDICARE ==
[2019-05-09 12:14] VITALS: TEMP 97.5
--- NOTE | 2019-05-09 12:51 | ED ---
General Adult HPI - General Chief complaint: Arrhythmia/Palpitations Stated complaint: High heart rate Time Seen by Provider: 05/09/19 12:15 Source: patient, RN notes reviewed, old records reviewed Mode of arrival: ambulatory Limitations: no limitations - History of Present Illness Initial comments: This is a 73-year-old female who presents emergency Department with a past medical history significant for renal failure and atrial fibrillation. Patient states she's to be on blood thinners but she had GI bleeds they took her off the blood thinners and she has not been in A. fib for a long time. Patient states today while she was getting dialyzed she went into a heart rate of 140 beats a minute. Patient was asymptomatic but they stopped dialysis and sent over the emergency department. Patient was hooked up to monitor and shortly after being hooked up she converted to a normal sinus rhythm at about 105 beats a minute patient was asymptomatic while she was being dialyzed and she is asymptomatic currently. Patient denies any chest pain difficulty breathing shortest breath. Patient denies any fever chills. - Related Data Home Medications Medication Instructions Recorded Confirmed DULoxetine HCL [Cymbalta] 60 mg PO DAILY 08/04/14 02/12/19 Fish Oil/Dha/Epa [Fish Oil 1,200 1 cap PO MOWEFR 08/04/14 02/12/19 mg Fish Oil] Amiodarone HCl [Pacerone] 100 mg PO DAILY 11/22/15 02/12/19 Docusate [Colace] 100 mg PO BID 11/22/15 02/12/19 Ezetimibe [Zetia] 10 mg PO DAILY 11/22/15 02/12/19 Cranberry 4200mg-Vitamin C 1 tab PO BID 12/25/16 02/12/19 Omeprazole 20 mg PO DAILY 12/25/16 02/12/19 Cholecalciferol (Vitamin D3) 2,000 unit PO HS 12/31/16 02/12/19 [Vitamin D3] Ferrous Sulfate [Iron (65 MG 325 mg PO HS 05/05/17 02/12/19 Elemental)] INSULIN ASPART (NovoLOG) [NovoLOG See Protocol SQ AC-TID 05/05/17 02/11/19 (formulary)] Magnesium Oxide [Mag-Ox] 250 mg PO HS 05/05/17 02/12/19 INSULIN ASPART (NovoLOG) [NovoLOG 12 unit SQ AC-BRKFST 08/16/17 02/12/19 (formulary)] Insulin Aspart [NovoLOG] 14 unit SQ AC-LUNCH 09/27/17 02/12/19 Insulin Aspart [NovoLOG] 14 unit SQ AC-SUPPER 09/27/17 02/12/19 Midodrine HCl [ProAmatine] 10 mg PO TUTHSA PRN 10/23/17 02/12/19 Acetaminophen Tab [Tylenol] 650 mg PO Q6H PRN 11/09/17 02/12/19 Darbepoetin Aron [Aranesp] 40 mcg SQ TU 02/16/18 02/12/19 Insulin Glargine [Lantus] 25 unit SQ BID 02/27/18 02/12/19 Aspirin [Adult Low Dose Aspirin EC] 81 mg PO DAILY 03/02/18 02/12/19 Metolazone [Zaroxolyn] 5 mg PO BID 02/11/19 02/12/19 Previous Rx's Medication Instructions Recorded Gabapentin [Neurontin] 300 mg PO BID #60 capsule 11/27/15 Furosemide [Lasix] 80 mg PO BID@0900,1600 tab 01/13/17 Sevelamer [Renvela] 800 mg PO TID-W/MEALS #90 tab 05/15/17 Clopidogrel [Plavix] 75 mg PO DAILY #30 tab 08/21/17 Metoprolol Succinate (ER) [Toprol 25 mg PO DAILY tab.er.24h 02/13/19 XL] Apixaban [Eliquis] 2.5 mg PO BID 10 Days tab 05/09/19 Allergies Allergy/AdvReac Type Severity Reaction Status Date / Time KUSHAL Inhibitors Allergy Swelling Verified 05/09/19 12:14 ARB-Angiotensin Receptor Allergy Swelling Verified 05/09/19 12:14 Antagonist cephalexin monohydrate Allergy Rash/Hives, Verified 05/09/19 12:14 [From Keflex] MOUTH SWELLING propoxyphene HCl AdvReac Hallucinati Verified 05/09/19 12:14 [From Darvon] ons Nweqmdr-Anu-Bun Reductase AdvReac Myalgia Verified 05/09/19 12:14 Inhibitor Review of Systems ROS Statement: Those systems with pertinent positive or pertinent negative responses have been documented in the HPI. ROS Other: All systems not noted in ROS Statement are negative. Past Medical History Past Medical History: Atrial Fibrillation, Coronary Artery Disease (CAD), Heart Failure, Diabetes Mellitus, Dialysis, GERD/Reflux, GI Bleed, Hyperlipidemia, Hypertension, Myocardial Infarction ([place]), Pneumonia, Renal Disease, Sleep Apnea/CPAP/BIPAP, Vascular Disorder Additional Past Medical History / Comment(s): HEMODIALYSIS- MONDAY,MONDAY,AND MONDAY . USES WHEELCHAIR-TRANSFERS ONLY -CAN TAKE A COUPLE OF STEPS, hx. GI bleed >year ago, SOB w/exertion, uses oxygen prn @2l, see Dr Combs H & P Last Myocardial Infarction Date:: 2015 History of Any Multi-Drug Resistant Organisms: MRSA Date of last positivie culture/infection: 02/09/18 MDRO Source:: LT THIRD TOE Past Surgical History: Back Surgery, Cholecystectomy, Heart Catheterization, Heart Catheterization With Stent, Hysterectomy, Orthopedic Surgery Additional Past Surgical History / Comment(s): PCI with stents, several back surgeries-lumbar, bilateral carpal tunnel releases, bilateral cataract removals, port then fistula for hemodialysis. PTBA to left leg 03-02-18 Past Anesthesia/Blood Transfusion Reactions: Previous Problems w/ Anesthesia Additional Past Anesthesia/Blood Transfusion Reaction / Comment(s): Confusion that resolved. Date of Last Stent Placement:: 10/06/17 Past Psychological History: No Psychological Hx Reported Smoking Status: Never smoker - Past Family History Father Additional Family Medical History / Comment(s): Brain aneurysm ; age 72 Sister(s) Family Medical History: Hypertension Additional Family Medical History / Comment(s): Aortic stenosis; mitral valve disease Mother Family Medical History: No Reported History, AFIB, CVA/TIA, Hypertension Additional Family Medical History / Comment(s): mother age 83 Daughter(s) Family Medical History: Asthma Son(s) Family Medical History: Asthma General Exam - General Exam Comments Initial Comments: GENERAL: Patient is well-developed and well-nourished. Patient is nontoxic and well- hydrated and is in no acute distress. ENT: Neck is soft and supple. No significant lymphadenopathy is noted. Oropharynx is clear. Moist mucous membranes. Neck has full range of motion without eliciting any pain. EYES: The sclera were anicteric and conjunctiva were pink and moist. Extraocular movements were intact and pupils were equal round and reactive to light. Eyelids were unremarkable. PULMONARY: Unlabored respirations. Good breath sounds bilaterally. No audible rales rhonchi or wheezing was noted. CARDIOVASCULAR: Patient is a regular rate and rhythm at about 105 beats a minute ABDOMEN: Soft and nontender with normal bowel sounds. No palpable organomegaly was noted. There is no palpable pulsatile mass. SKIN: Skin is clear with no lesions or rashes and otherwise unremarkable. NEUROLOGIC: Patient is alert and oriented x3. Cranial nerves II through XII are grossly intact. Motor and sensory are also intact. Normal speech, volume and content. Symmetrical smile. MUSCULOSKELETAL: Normal extremities with adequate strength and full range of motion. No lower extremity swelling or edema. No calf tenderness. LYMPHATICS: No significant lymphadenopathy is noted PSYCHIATRIC: Normal psychiatric evaluation. Limitations: no limitations Course Vital Signs 05/09/19 05/09/19 05/09/19 12:12 12:37 12:40 Temperature 97.5 F L Pulse Rate 145 H 138 H 141 H Respiratory 20 26 H 20 Rate Blood Pressure 134/81 O2 Sat by Pulse Oximetry 05/09/19 05/09/19 05/09/19 12:50 13:00 13:10 Temperature Pulse Rate 105 H 103 H 104 H Respiratory 21 18 18 Rate Blood Pressure O2 Sat by Pulse Oximetry 05/09/19 05/09/19 05/09/19 13:22 13:30 13:40 Temperature Pulse Rate 105 H 105 H 103 H Respiratory 15 18 20 Rate Blood Pressure O2 Sat by Pulse Oximetry 05/09/19 05/09/19 05/09/19 13:50 14:10 14:20 Temperature Pulse Rate 104 H 105 H 137 H Respiratory 18 28 H 20 Rate Blood Pressure O2 Sat by Pulse Oximetry 05/09/19 05/09/19 14:30 14:38 Temperature Pulse Rate 128 H 124 H Respiratory 18 18 Rate Blood Pressure 165/89 O2 Sat by Pulse 98 Oximetry Medical Decision Making - Medical Decision Making EKG shows a sinus tachycardia at 10 3 bpm NC interval 160 QRS 138 QT interval 412 QTC is 539. Patient's EKG shows a right bundle branch block. Patient's EKG shows no ST segment elevation or depression. Patient's chest x-ray shows no acute abnormality. I spoke with Dr. Dewey he wanted the patient to go home on eliis and follow-up with his nozzle cement sprayer helper. Patient neglected to tell me earlier that she did not take her metoprolol today. I did give the patient 25 metoprolol prior to arrival because her heart rate was elevated to 120 beats a minute and was sinus. - Lab Data Result diagrams: 05/09/19 13:00 05/09/19 13:00 Lab Results 05/09/19 05/09/19 05/09/19 Range/Units 13:00 13:00 13:00 WBC 7.9 (3.8-10.6) k/uL RBC 4.24 (3.80-5.40) m/uL Hgb 13.5 (11.4-16.0) gm/dL Hct 43.1 (34.0-46.0) % MCV 101.6 H (80.0-100.0) fL MCH 31.9 (25.0-35.0) pg MCHC 31.4 (31.0-37.0) g/dL RDW 15.9 H (11.5-15.5) % Plt Count 196 (150-450) k/uL Neutrophils % 77 % Lymphocytes % 12 % Monocytes % 5 % Eosinophils % 3 % Basophils % 1 % Neutrophils # 6.1 (1.3-7.7) k/uL Lymphocytes # 1.0 (1.0-4.8) k/uL Monocytes # 0.4 (0-1.0) k/uL Eosinophils # 0.2 (0-0.7) k/uL Basophils # 0.1 (0-0.2) k/uL Hypochromasia Slight Macrocytosis Slight PT 9.7 (9.0-12.0) sec INR 0.9 (<1.2) APTT 28.5 (22.0-30.0) sec Sodium 134 L (137-145) mmol/L Potassium 3.7 (3.5-5.1) mmol/L Chloride 91 L (98-107) mmol/L Carbon Dioxide 27 (22-30) mmol/L Anion Gap 16 mmol/L BUN 46 H (7-17) mg/dL Creatinine 4.56 H (0.52-1.04) mg/dL Est GFR (CKD-EPI)AfAm 10 (>60 ml/min/1.73 sqM) Est GFR (CKD-EPI)NonAf 9 (>60 ml/min/1.73 sqM) Glucose 186 H (74-99) mg/dL Calcium 8.8 (8.4-10.2) mg/dL Magnesium 2.3 (1.6-2.3) mg/dL Total Bilirubin 0.7 (0.2-1.3) mg/dL AST 32 (14-36) U/L ALT 18 (4-34) U/L Alkaline Phosphatase 186 H (38-126) U/L Troponin I (0.000-0.034) ng/mL Total Protein 7.7 (6.3-8.2) g/dL Albumin 4.0 (3.5-5.0) g/dL 05/09/19 Range/Units 13:00 WBC (3.8-10.6) k/uL RBC (3.80-5.40) m/uL Hgb (11.4-16.0) gm/dL Hct (34.0-46.0) % MCV (80.0-100.0) fL MCH (25.0-35.0) pg MCHC (31.0-37.0) g/dL RDW (11.5-15.5) % Plt Count (150-450) k/uL Neutrophils % % Lymphocytes % % Monocytes % % Eosinophils % % Basophils % % Neutrophils # (1.3-7.7) k/uL Lymphocytes # (1.0-4.8) k/uL Monocytes # (0-1.0) k/uL Eosinophils # (0-0.7) k/uL Basophils # (0-0.2) k/uL Hypochromasia Macrocytosis PT (9.0-12.0) sec INR (<1.2) APTT (22.0-30.0) sec Sodium (137-145) mmol/L Potassium (3.5-5.1) mmol/L Chloride (98-107) mmol/L Carbon Dioxide (22-30) mmol/L Anion Gap mmol/L BUN (7-17) mg/dL Creatinine (0.52-1.04) mg/dL Est GFR (CKD-EPI)AfAm (>60 ml/min/1.73 sqM) Est GFR (CKD-EPI)NonAf (>60 ml/min/1.73 sqM) Glucose (74-99) mg/dL Calcium (8.4-10.2) mg/dL Magnesium (1.6-2.3) mg/dL Total Bilirubin (0.2-1.3) mg/dL AST (14-36) U/L ALT (4-34) U/L Alkaline Phosphatase (38-126) U/L Troponin I 0.018 (0.000-0.034) ng/mL Total Protein (6.3-8.2) g/dL Albumin (3.5-5.0) g/dL Disposition Clinical Impression: Atrial fibrillation Disposition: HOME SELF-CARE Instructions (If sedation given, give patient instructions): A-fib (Atrial Fi brillation) (ED) Prescriptions: Apixaban [Eliquis] 2.5 mg PO BID 10 Days tab Is patient prescribed a controlled substance at d/c from ED?: No Referrals: Meghan Garcia MD [Primary Care Provider] - 1-2 days Time of Disposition: 14:45
[2019-05-09 13:14] VITALS: RESP 18
[2019-05-09 13:25] LABS: Basophils # (A) 0.1 k/uL (0-0.2); Basophils % (A) 1 %; Eosinophils # (A) 0.2 k/uL (0-0.7); Eosinophils % (A) 3 %; HCT 43.1 % (34.0-46.0); HGB 13.5 gm/dL (11.4-16.0); Hypochromasia Slight; Lymphocytes % (A) 12 %; MCH 31.9 pg (25.0-35.0); MCHC 31.4 g/dL (31.0-37.0); MCV 101.6 fL (80.0-100.0); Macrocytosis Slight; Mean Platelet Volume 8.6; Monocytes # (A) 0.4 k/uL (0-1.0); Monocytes % (A) 5 %; Neutrophils # (A) 6.1 k/uL (1.3-7.7); Neutrophils % (A) 77 %; Platelet Count 196 k/uL (150-450); RBC 4.24 m/uL (3.80-5.40); RDW 15.9 % (11.5-15.5); WBC 7.9 k/uL (3.8-10.6)
--- NOTE | 2019-05-09 13:29 | XR ---
EXAMINATION TYPE: XR chest 2V DATE OF EXAM: 05/09/2019 COMPARISON: Chest x-ray February 12, 2019 and older studies. HISTORY: Tachycardia and palpitations. TECHNIQUE: Frontal and lateral views of the chest are obtained. FINDINGS: Exam suboptimal due to patient's large body habitus. Cardiomegaly with metallic stent fartun t aortic root seen on current study less well seen on prior diminish inspiration on current study wit h central vascular congestion. No definitive new focal airspace opacity, pleural effusion, or pneumot horax seen. Overlying EKG leads currently. Partial visualization of surgical change lower thoracic sp ine. Curvilinear density left hilar region redemonstrated unchanged from prior studies. Etiology unce rtain. IMPRESSION: Diminished inspiration on current study. Suboptimal study due to body habitus. Cardiomeg marlon with suggestion of central vascular congestion raising concern for CHF exacerbation. Correlate cl inically.
[2019-05-09 13:32] LABS: Calcium 8.8 mg/dL (8.4-10.2); Magnesium 2.3 mg/dL (1.6-2.3); Potassium 3.7 mmol/L (3.5-5.1); Total Bilirubin 0.7 mg/dL (0.2-1.3); Total Protein 7.7 g/dL (6.3-8.2)
[2019-05-09 13:39] LABS: INR 0.9 (<1.2); Partial Thromboplastin Time 28.5 sec (22.0-30.0); Prothrombin Time 9.7 sec (9.0-12.0)
[2019-05-09 14:38] VITALS: BP 165/89; PULSE 124
[2019-05-09] MEDS ORDERED: METOPROLOL TARTRATE 25 MG TAB PO STA (14:48)
== END 2019-05-09 15:05 | disposition home or self-care (01) ==
LOC: EC 11:58
DX: I48.91 Unspecified atrial fibrillation (principal); I45.10 Unspecified right bundle-branch block; I25.10 Atherosclerotic heart disease of native coronary artery without angina pectoris; I11.0 Hypertensive heart disease with heart failure; I50.9 Heart failure, unspecified; E11.9 Type 2 diabetes mellitus without complications; K21.9 Gastro-esophageal reflux disease without esophagitis; E78.5 Hyperlipidemia, unspecified; I25.2 Old myocardial infarction; G47.30 Sleep apnea, unspecified; Z88.1 Allergy status to other antibiotic agents; Z88.5 Allergy status to narcotic agent; Z88.8 Allergy status to other drugs, medicaments and biological substances; Z79.4 Long term (current) use of insulin; Z79.82 Long term (current) use of aspirin; Z79.899 Other long term (current) drug therapy; Z99.2 Dependence on renal dialysis; Z86.14 Personal history of Methicillin resistant Staphylococcus aureus infection; Z95.5 Presence of coronary angioplasty implant and graft; Z87.448 Personal history of other diseases of urinary system; Z99.89 Dependence on other enabling machines and devices; Z82.49 Family history of ischemic heart disease and other diseases of the circulatory system
CPT/HCPCS: 36415; 71046; 80053; 83735; 84484; 85025; 85610; 85730; 93005; 99285

== ENCOUNTER → 2019-05-27 | Outpatient (CLI) | payer MEDICARE ==
--- NOTE | 2019-05-27 14:34 | US ---
EXAMINATION TYPE: US kidneys/renal and bladder DATE OF EXAM: 05/27/2019 COMPARISON: Renal ultrasound dated 11/23/2015 CLINICAL HISTORY: Recurring UTI. EXAM MEASUREMENTS: Right Kidney: 10.7 x 3.6 x 4.1 cm Left Kidney: 11.3 x 4.1 x 4.5 cm Right Kidney: lobular contour Left Kidney: Hypoechoic lesion measures 1.1cm seen of the medial left renal cortex. Bladder: wnl Bilateral cortical renal thinning. There is no evidence for hydronephrosis at this point in time. No nephrolithiasis is seen. The urinary bladder is anechoic. IMPRESSION: 1. Lobular contour of the right kidney may represent multifocal renal scarring in this patient with r ecurring urinary tract infections. 2. Bilateral mild cortical renal thinning suggesting medical renal disease. 3. Too small to accurately characterize left renal lesion is not seen on the prior ultrasound. CT abd omen with contrast could further assess this lesion. 4. No hydronephrosis of either kidney.
== END | disposition home or self-care (01) ==
LOC: RADUSWWP 13:48
PROVIDERS: ATTEND Internal Medicine Nephrology
DX: N28.89 Other specified disorders of kidney and ureter (principal)
CPT/HCPCS: 76770

== ENCOUNTER 2019-09-24 14:19 | Emergency (ER) | payer MEDICARE ==
[2019-09-24 15:08] VITALS: BP 144/64; PULSE 95; RESP 16; TEMP 98.3
--- NOTE | 2019-09-24 16:25 | ED ---
General Adult HPI - General Chief complaint: Abdominal Pain Stated complaint: poss UTI/kidney infection Time Seen by Provider: 09/24/19 15:35 Source: patient, RN notes reviewed, old records reviewed Mode of arrival: ambulatory Limitations: no limitations - History of Present Illness Initial comments: 73-year-old female patient on hemodialysis presents to ED for chief complaint of dysuria, burning with urination and reportedly blood in her urine. Patient states that she urinates once a day in the morning. Reports that she is having lots of suprapubic discomfort while she was getting hemodialysis today and requested to be taken off hemodialysis. She had a urine sample at hemodialysis which was reportedly sent to [facility] results are pending on that. Patient denies any other complaints at this time. Systemic: Pt denies fatigue, fever/chills, rash. Pt denies weakness, night sweats, weight loss. Neuro: Pt denies headache, visual disturbances, syncope or pre-syncope. HEENT: Pt denies ocular discharge or irritation, otalgia, rhinorrhea, pharyngitis or notable lymphadenopathy. Cardiopulmonary: Pt denies chest pain, SOB, heart palpitations, dyspnea on exertion. Abdominal/GI: Pt denies n/v/d. : Pt denies Denies new onset urinary or bowel incontinence. MSK: Pt denies myalgia, loss of strength or function in extremities. Neuro: Pt denies new onset weakness, paresthesias. - Related Data Home Medications Medication Instructions Recorded Confirmed DULoxetine HCL [Cymbalta] 60 mg PO DAILY 08/04/14 02/12/19 Fish Oil/Dha/Epa [Fish Oil 1,200 1 cap PO MOWEFR 08/04/14 02/12/19 mg Fish Oil] Amiodarone HCl [Pacerone] 100 mg PO DAILY 11/22/15 02/12/19 Docusate [Colace] 100 mg PO BID 11/22/15 02/12/19 Ezetimibe [Zetia] 10 mg PO DAILY 11/22/15 02/12/19 Cranberry 4200mg-Vitamin C 1 tab PO BID 12/25/16 02/12/19 Omeprazole 20 mg PO DAILY 12/25/16 02/12/19 Cholecalciferol (Vitamin D3) 2,000 unit PO HS 12/31/16 02/12/19 [Vitamin D3] Ferrous Sulfate [Iron (65 MG 325 mg PO HS 05/05/17 02/12/19 Elemental)] INSULIN ASPART (NovoLOG) [NovoLOG See Protocol SQ AC-TID 05/05/17 02/11/19 (formulary)] Magnesium Oxide [Mag-Ox] 250 mg PO HS 05/05/17 02/12/19 INSULIN ASPART (NovoLOG) [NovoLOG 12 unit SQ AC-BRKFST 08/16/17 02/12/19 (formulary)] Insulin Aspart [NovoLOG] 14 unit SQ AC-LUNCH 09/27/17 02/12/19 Insulin Aspart [NovoLOG] 14 unit SQ AC-SUPPER 09/27/17 02/12/19 Midodrine HCl [ProAmatine] 10 mg PO TUTHSA PRN 10/23/17 02/12/19 Acetaminophen Tab [Tylenol] 650 mg PO Q6H PRN 11/09/17 02/12/19 Darbepoetin Aron [Aranesp] 40 mcg SQ TU 02/16/18 02/12/19 Insulin Glargine [Lantus] 25 unit SQ BID 02/27/18 02/12/19 Aspirin [Adult Low Dose Aspirin EC] 81 mg PO DAILY 03/02/18 02/12/19 Metolazone [Zaroxolyn] 5 mg PO BID 02/11/19 02/12/19 Previous Rx's Medication Instructions Recorded Gabapentin [Neurontin] 300 mg PO BID #60 capsule 11/27/15 Furosemide [Lasix] 80 mg PO BID@0900,1600 tab 01/13/17 Sevelamer [Renvela] 800 mg PO TID-W/MEALS #90 tab 05/15/17 Clopidogrel [Plavix] 75 mg PO DAILY #30 tab 08/21/17 Metoprolol Succinate (ER) [Toprol 25 mg PO DAILY tab.er.24h 02/13/19 XL] Apixaban [Eliquis] 2.5 mg PO BID 10 Days tab 05/09/19 Amoxicillin/Potassium Clav 1 tab PO Q24HR 9 Days #9 tab 09/24/19 [Augmentin 500-125 Tablet] Allergies Allergy/AdvReac Type Severity Reaction Status Date / Time KUSHAL Inhibitors Allergy Swelling Verified 09/24/19 15:08 ARB-Angiotensin Receptor Allergy Swelling Verified 09/24/19 15:08 Antagonist cephalexin monohydrate Allergy Rash/Hives, Verified 09/24/19 15:08 [From Keflex] MOUTH SWELLING propoxyphene HCl AdvReac Hallucinati Verified 09/24/19 15:08 [From Darvon] ons Yuhxiqy-[id number]-Tcs Reductase AdvReac Myalgia Verified 09/24/19 15:08 Inhibitor Review of Systems ROS Statement: Those systems with pertinent positive or pertinent negative responses have been documented in the HPI. ROS Other: All systems not noted in ROS Statement are negative. Past Medical History Past Medical History: Atrial Fibrillation, Coronary Artery Disease (CAD), Heart Failure, Diabetes Mellitus, Dialysis, GERD/Reflux, GI Bleed, Hyperlipidemia, Hypertension, Myocardial Infarction ([place]), Pneumonia, Renal Disease, Sleep Apnea/CPAP/BIPAP, Vascular Disorder Additional Past Medical History / Comment(s): HEMODIALYSIS- MONDAY,MONDAY,AND MONDAY . USES WHEELCHAIR-TRANSFERS ONLY -CAN TAKE A COUPLE OF STEPS, hx. GI bleed >year ago, SOB w/exertion, uses oxygen prn @2l, see Dr Combs H & P Last Myocardial Infarction Date:: 2015 History of Any Multi-Drug Resistant Organisms: MRSA Date of last positivie culture/infection: 02/09/18 MDRO Source:: LT THIRD TOE Past Surgical History: Back Surgery, Cholecystectomy, Heart Catheterization, Heart Catheterization With Stent, Hysterectomy, Orthopedic Surgery Additional Past Surgical History / Comment(s): PCI with stents, several back surgeries-lumbar, bilateral carpal tunnel releases, bilateral cataract removals, port then fistula for hemodialysis. PTBA to left leg 03-02-18 Past Anesthesia/Blood Transfusion Reactions: Previous Problems w/ Anesthesia Additional Past Anesthesia/Blood Transfusion Reaction / Comment(s): Confusion that resolved. Date of Last Stent Placement:: 10/06/17 Past Psychological History: No Psychological Hx Reported Smoking Status: Never smoker - Past Family History Father Additional Family Medical History / Comment(s): Brain aneurysm ; age 72 Sister(s) Family Medical History: Hypertension Additional Family Medical History / Comment(s): Aortic stenosis; mitral valve di sease Mother Family Medical History: No Reported History, AFIB, CVA/TIA, Hypertension Additional Family Medical History / Comment(s): mother age 83 Daughter(s) Family Medical History: Asthma Son(s) Family Medical History: Asthma General Exam - General Exam Comments Initial Comments: Constitutional: NAD, AOX3, Pt has pleasant affect. HEENT: NC/AT, trachea midline, neck supple, no lymphadenopathy. Posterior pharynx non erythematous, without exudates. External ears appear normal, without discharge. Mucous membranes moist. Eyes PERRLA, EOM intact. There is no scleral icterus. No pallor noted. Cardiopulmonary: RRR, no murmurs, rubs or gallops, no JVD noted. Lungs CTAB in anterior and posterior goldstein. No peripheral edema. Abdominal exam: Abdomen soft and non-distended. Abdomen mildly tender to pa lpation in suprapubic region.. Bowel sounds active in LLQ. No hepatosplenomegaly. No ecchymosis Neuro: CN II-XII grossly intact. No nuchal rigidity. No raccon eyes, no choi sign, no hemotympanum. No cervical spinal tenderness. MSK: Sensation intact in upper and lower extremities. Full active ROM in upper and lower extremities, 5/5 stregnth. Limitations: no limitations Course Vital Signs 09/24/19 15:04 Temperature 98.3 F Pulse Rate 95 Respiratory 16 Rate Blood Pressure 144/64 O2 Sat by Pulse 97 Oximetry Medical Decision Making - Medical Decision Making 73-year-old female patient on hemodialysis presents to ED for chief complaint of dysuria, burning with urination and reportedly blood in her urine. Patient states that she urinates once a day in the morning. Reports that she is having lots of suprapubic discomfort while she was getting hemodialysis today and requested to be taken off hemodialysis. She had a urine sample at hemodialysis which was reportedly sent to [facility] results are pending on that. Patient denies any other complaints at this time. Patient will signs are stable, afebrile. Physical exam displayed very mild suprapubic discomfort. Laboratory investigations were obtained significant for chronic kidney disease for which patient has history as well as UA displaying blood and signs of urinary tract infection. Patient will be initiated on Augmentin for which prior culture showed sensitivity. Patient has been able take Augmentin without difficulty in the past. Patient declines any further investigations including advanced imaging. We'll follow up with primary care provider and return to ER if condition worsens. Case discussed with Dr. Virgen. - Lab Data Result diagrams: 09/24/19 16:49 05/26/20 16:49 Lab Results 09/24/19 09/24/19 09/24/19 Range/Units 16:49 16:49 16:49 WBC 10.5 (3.8-10.6) k/uL RBC 3.87 (3.80-5.40) m/uL Hgb 11.7 (11.4-16.0) gm/dL Hct 37.9 (34.0-46.0) % MCV 97.9 (80.0-100.0) fL MCH 30.2 (25.0-35.0) pg MCHC 30.8 L (31.0-37.0) g/dL RDW 15.6 H (11.5-15.5) % Plt Count 239 (150-450) k/uL Neutrophils % 77 % Lymphocytes % 12 % Monocytes % 6 % Eosinophils % 3 % Basophils % 1 % Neutrophils # 8.1 H (1.3-7.7) k/uL Lymphocytes # 1.3 (1.0-4.8) k/uL Monocytes # 0.6 (0-1.0) k/uL Eosinophils # 0.3 (0-0.7) k/uL Basophils # 0.1 (0-0.2) k/uL Sodium 135 L (137-145) mmol/L Potassium 4.0 (3.5-5.1) mmol/L Chloride 90 L (98-107) mmol/L Carbon Dioxide 31 H (22-30) mmol/L Anion Gap 14 mmol/L BUN 32 H (7-17) mg/dL Creatinine 3.99 H (0.52-1.04) mg/dL Est GFR (CKD-EPI)AfAm 12 (>60 ml/min/1.73 sqM) Est GFR (CKD-EPI)NonAf 11 (>60 ml/min/1.73 sqM) Glucose 85 (74-99) mg/dL Plasma Lactic Acid Satinder 2.0 (0.7-2.0) mmol/L Calcium 9.4 (8.4-10.2) mg/dL Total Bilirubin 0.5 (0.2-1.3) mg/dL AST 23 (14-36) U/L ALT 18 (4-34) U/L Alkaline Phosphatase 194 H (38-126) U/L Total Protein 8.0 (6.3-8.2) g/dL Albumin 4.4 (3.5-5.0) g/dL Lipase 102 (23-300) U/L Urine Color Urine Appearance (Clear) Urine pH (5.0-8.0) Ur Specific [place] (1.001-1.035) Urine Protein (Negative) Urine Glucose (UA) (Negative) Urine Ketones (Negative) Urine Blood (Negative) Urine Nitrite (Negative) Urine Bilirubin (Negative) Urine Urobilinogen (<2.0) mg/dL Ur Leukocyte Esterase (Negative) Urine RBC (0-5) /hpf Urine WBC (0-5) /hpf Urine WBC Clumps (None) /hpf Ur Squamous Epith Cells (0-4) /hpf Amorphous Sediment (None) /hpf Urine Bacteria (None) /hpf Hyaline Casts (0-2) /lpf Urine Mucus (None) /hpf 09/24/19 Range/Units 16:49 WBC (3.8-10.6) k/uL RBC (3.80-5.40) m/uL Hgb (11.4-16.0) gm/dL Hct (34.0-46.0) % MCV (80.0-100.0) fL MCH (25.0-35.0) pg MCHC (31.0-37.0) g/dL RDW (11.5-15.5) % Plt Count (150-450) k/uL Neutrophils % % Lymphocytes % % Monocytes % % Eosinophils % % Basophils % % Neutrophils # (1.3-7.7) k/uL Lymphocytes # (1.0-4.8) k/uL Monocytes # (0-1.0) k/uL Eosinophils # (0-0.7) k/uL Basophils # (0-0.2) k/uL Sodium (137-145) mmol/L Potassium (3.5-5.1) mmol/L Chloride (98-107) mmol/L Carbon Dioxide (22-30) mmol/L Anion Gap mmol/L BUN (7-17) mg/dL Creatinine (0.52-1.04) mg/dL Est GFR (CKD-EPI)AfAm (>60 ml/min/1.73 sqM) Est GFR (CKD-EPI)NonAf (>60 ml/min/1.73 sqM) Glucose (74-99) mg/dL Plasma Lactic Acid Satinder (0.7-2.0) mmol/L Calcium (8.4-10.2) mg/dL Total Bilirubin (0.2-1.3) mg/dL AST (14-36) U/L ALT (4-34) U/L Alkaline Phosphatase (38-126) U/L Total Protein (6.3-8.2) g/dL Albumin (3.5-5.0) g/dL Lipase (23-300) U/L Urine Color Yellow Urine Appearance Cloudy H (Clear) Urine pH 5.5 (5.0-8.0) Ur Specific [place] 1.018 (1.001-1.035) Urine Protein 2+ H (Negative) Urine Glucose (UA) Negative (Negative) Urine Ketones Negative (Negative) Urine Blood Moderate H (Negative) Urine Nitrite Negative (Negative) Urine Bilirubin Negative (Negative) Urine Urobilinogen <2.0 (<2.0) mg/dL Ur Leukocyte Esterase Large H (Negative) Urine RBC >182 H (0-5) /hpf Urine WBC 81 H (0-5) /hpf Urine WBC Clumps Moderate H (None) /hpf Ur Squamous Epith Cells <1 (0-4) /hpf Amorphous Sediment Rare H (None) /hpf Urine Bacteria Many H (None) /hpf Hyaline Casts 5 H (0-2) /lpf Urine Mucus Rare H (None) /hpf Disposition Clinical Impression: UTI (urinary tract infection) Disposition: HOME SELF-CARE Condition: Stable Instructions (If sedation given, give patient instructions): Urinary Tract Infection in Women (ED) Additional Instructions: Take antibiotics as directed. On days of dialysis take antibiotic after treatment. Follow-up with primary care provider tomorrow and return to ER if condition worsens. Prescriptions: Amoxicillin/Potassium Clav [Augmentin 500-125 Tablet] 1 tab PO Q24HR 9 Days #9 tab Is patient prescribed a controlled substance at d/c from ED?: No Referrals: Stevenson Farias MD [Primary Care Provider] - 1-2 days
--- NOTE | 2019-09-24 16:42 | XR ---
EXAMINATION TYPE: XR KUB DATE OF EXAM: 09/24/2019 4:34 PM CLINICAL HISTORY: Lower abdominal pain. TECHNIQUE: Two Upright KUB images of the abdomen are obtained. COMPARISON: CT abdomen and pelvis November 09, 2017 FINDINGS: Scattered gas is seen in non-distended small bowel loops. Gas and fecal material is seen in non-distended colon. Cholecystectomy clips are redemonstrated. Long segment fusion surgery lower tho racic spine and to upper sacrum redemonstrated. Some areas of vertebroplasty again seen. No pneumoper itoneum. New tiny left pleural effusion. Stable left-sided pelvic phlebolith. IMPRESSION: Overall nonobstructive bowel gas pattern. New tiny left pleural effusion.
[2019-09-24 17:07] LABS: Basophils # (A) 0.1 k/uL (0-0.2); Basophils % (A) 1 %; Eosinophils # (A) 0.3 k/uL (0-0.7); Eosinophils % (A) 3 %; HCT 37.9 % (34.0-46.0); HGB 11.7 gm/dL (11.4-16.0); Lymphocytes # (A) 1.3 k/uL (1.0-4.8); Lymphocytes % (A) 12 %; MCH 30.2 pg (25.0-35.0); MCHC 30.8 g/dL (31.0-37.0); MCV 97.9 fL (80.0-100.0); Mean Platelet Volume 8.3; Monocytes # (A) 0.6 k/uL (0-1.0); Monocytes % (A) 6 %; Neutrophils # (A) 8.1 k/uL (1.3-7.7); Neutrophils % (A) 77 %; Platelet Count 239 k/uL (150-450); RBC 3.87 m/uL (3.80-5.40); RDW 15.6 % (11.5-15.5); WBC 10.5 k/uL (3.8-10.6)
[2019-09-24 17:27] LABS: Albumin 4.4 g/dL (3.5-5.0); Calcium 9.4 mg/dL (8.4-10.2); Total Bilirubin 0.5 mg/dL (0.2-1.3)
[2019-09-24 17:31] LABS: Amorphous Sediment,Urine Rare /hpf; Appearance,Urine Cloudy (Clear); Bacteria,Urine Many /hpf; Bilirubin,Urine Negative (Negative); Blood,Urine Moderate (Negative); Color,Urine Yellow; Glucose,Urine (UA) Negative (Negative); Hyaline Casts,Urine 5 /lpf (0-2); Ketones,Urine Negative (Negative); Leukocyte Esterase,Urine Large (Negative); Mucus,Urine Rare /hpf; Nitrite,Urine Negative (Negative); PH, Urine 5.5 (5.0-8.0); Protein,Urine 2+ (Negative); RBC,Urine >182 /hpf (0-5); Specific Gravity,Urine 1.018 (1.001-1.035); Squamous Epithelial Cell,Urine <1 /hpf (0-4); Urobilinogen,Urine <2.0 mg/dL (<2.0); WBC,Urine 81 /hpf (0-5)
[2019-09-24] MEDS ORDERED: ACETAMINOPHEN TAB 500 MG TAB PO STA (18:17)
[2019-09-24] MEDS ORDERED: AMOXIC-POT CLAV 500-125 MG 1 EACH TAB PO STA (18:17)
== END 2019-09-24 19:38 | disposition home or self-care (01) ==
LOC: EC 14:19
DX: N39.0 Urinary tract infection, site not specified (principal); I13.0 Hypertensive heart and chronic kidney disease with heart failure and stage 1 through stage 4 chronic kidney disease, or unspecified chronic kidney disease; I50.9 Heart failure, unspecified; N18.9 Chronic kidney disease, unspecified; I25.2 Old myocardial infarction; E11.9 Type 2 diabetes mellitus without complications; E78.5 Hyperlipidemia, unspecified; I25.10 Atherosclerotic heart disease of native coronary artery without angina pectoris; I48.91 Unspecified atrial fibrillation; K21.9 Gastro-esophageal reflux disease without esophagitis; G47.30 Sleep apnea, unspecified; Z79.4 Long term (current) use of insulin; Z79.82 Long term (current) use of aspirin; Z79.899 Other long term (current) drug therapy; Z88.1 Allergy status to other antibiotic agents; Z88.8 Allergy status to other drugs, medicaments and biological substances; Z95.5 Presence of coronary angioplasty implant and graft; Z99.89 Dependence on other enabling machines and devices; Z99.2 Dependence on renal dialysis
CPT/HCPCS: 36415; 74018; 80053; 81001; 83605; 83690; 85025; 87086; 99284

== ENCOUNTER 2019-10-01 14:11 | Emergency (ER) | payer MEDICARE ==
[2019-10-01 14:16] VITALS: TEMP 98.3
[2019-10-01] MEDS ORDERED: HYDROmorphone 1 MG/ML 1 ML SYRINGE IVP STA (14:30)
--- NOTE | 2019-10-01 14:34 | ED ---
General Adult HPI - General Chief complaint: Weakness Stated complaint: Weakness Time Seen by Provider: 10/01/19 14:19 Source: patient, RN notes reviewed Mode of arrival: ambulatory Limitations: no limitations - History of Present Illness Initial comments: Patient is a pleasant 73-year-old female presenting to the emergency department for general weakness. Patient was seen a week ago diagnosed with urinary tract infection. Patient was placed on Augmentin. Symptoms are not any better. Patient does have some discomfort of the epigastrium. Patient also has some left shoulder discomfort that increases with touch and movement. Patient has had decreased appetite. Patient has been doing dialysis. No isolated area of weakness. - Related Data Home Medications Medication Instructions Recorded Confirmed DULoxetine HCL [Cymbalta] 60 mg PO DAILY 08/04/14 02/12/19 Fish Oil/Dha/Epa [Fish Oil 1,200 1 cap PO MOWEFR 08/04/14 02/12/19 mg Fish Oil] Amiodarone HCl [Pacerone] 100 mg PO DAILY 11/22/15 02/12/19 Docusate [Colace] 100 mg PO BID 11/22/15 02/12/19 Ezetimibe [Zetia] 10 mg PO DAILY 11/22/15 02/12/19 Cranberry 4200mg-Vitamin C 1 tab PO BID 12/25/16 02/12/19 Omeprazole 20 mg PO DAILY 12/25/16 02/12/19 Cholecalciferol (Vitamin D3) 2,000 unit PO HS 12/31/16 02/12/19 [Vitamin D3] Ferrous Sulfate [Iron (65 MG 325 mg PO HS 05/05/17 02/12/19 Elemental)] INSULIN ASPART (NovoLOG) [NovoLOG See Protocol SQ AC-TID 05/05/17 02/11/19 (formulary)] Magnesium Oxide [Mag-Ox] 250 mg PO HS 05/05/17 02/12/19 INSULIN ASPART (NovoLOG) [NovoLOG 12 unit SQ AC-BRKFST 08/16/17 02/12/19 (formulary)] Insulin Aspart [NovoLOG] 14 unit SQ AC-LUNCH 09/27/17 02/12/19 Insulin Aspart [NovoLOG] 14 unit SQ AC-SUPPER 09/27/17 02/12/19 Midodrine HCl [ProAmatine] 10 mg PO TUTHSA PRN 10/23/17 02/12/19 Acetaminophen Tab [Tylenol] 650 mg PO Q6H PRN 11/09/17 02/12/19 Darbepoetin Aron [Aranesp] 40 mcg SQ TU 02/16/18 02/12/19 Insulin Glargine [Lantus] 25 unit SQ BID 02/27/18 02/12/19 Aspirin [Adult Low Dose Aspirin EC] 81 mg PO DAILY 03/02/18 02/12/19 Metolazone [Zaroxolyn] 5 mg PO BID 02/11/19 02/12/19 Previous Rx's Medication Instructions Recorded Gabapentin [Neurontin] 300 mg PO BID #60 capsule 11/27/15 Furosemide [Lasix] 80 mg PO BID@0900,1600 tab 01/13/17 Sevelamer [Renvela] 800 mg PO TID-W/MEALS #90 tab 05/15/17 Clopidogrel [Plavix] 75 mg PO DAILY #30 tab 08/21/17 Metoprolol Succinate (ER) [Toprol 25 mg PO DAILY tab.er.24h 02/13/19 XL] Apixaban [Eliquis] 2.5 mg PO BID 10 Days tab 05/09/19 Amoxicillin/Potassium Clav 1 tab PO Q24HR 9 Days #9 tab 09/24/19 [Augmentin 500-125 Tablet] Allergies Allergy/AdvReac Type Severity Reaction Status Date / Time KUSHAL Inhibitors Allergy Swelling Verified 10/01/19 14:17 ARB-Angiotensin Receptor Allergy Swelling Verified 10/01/19 14:17 Antagonist cephalexin monohydrate Allergy Rash/Hives, Verified 10/01/19 14:17 [From Keflex] MOUTH SWELLING propoxyphene HCl AdvReac Hallucinati Verified 10/01/19 14:17 [From Darvon] ons Slutiwf-Lkl-Qmp Reductase AdvReac Myalgia Verified 10/01/19 14:17 Inhibitor Review of Systems ROS Statement: Those systems with pertinent positive or pertinent negative responses have been documented in the HPI. ROS Other: All systems not noted in ROS Statement are negative. Constitutional: Denies: fever Eyes: Denies: eye pain ENT: Denies: ear pain Respiratory: Denies: cough Cardiovascular: Denies: chest pain Endocrine: Denies: fatigue Gastrointestinal: Reports: as per HPI, abdominal pain. Denies: vomiting Genitourinary: Denies: dysuria Musculoskeletal: Denies: back pain Skin: Denies: rash Neurological: Denies: weakness Past Medical History Past Medical History: Atrial Fibrillation, Coronary Artery Disease (CAD), Heart Failure, Diabetes Mellitus, Dialysis, GERD/Reflux, GI Bleed, Hyperlipidemia, Hypertension, Myocardial Infarction (MT), Pneumonia, Renal Disease, Sleep Apnea/CPAP/BIPAP, Vascular Disorder Additional Past Medical History / Comment(s): HEMODIALYSIS- MONDAY,MONDAY,AND MONDAY . USES WHEELCHAIR-TRANSFERS ONLY -CAN TAKE A COUPLE OF STEPS, hx. GI bleed >year ago, SOB w/exertion, uses oxygen prn @2l, see Dr Combs H & P Last Myocardial Infarction Date:: 2015 History of Any Multi-Drug Resistant Organisms: MRSA Date of last positivie culture/infection: 02/09/18 MDRO Source:: LT THIRD TOE Past Surgical History: Back Surgery, Cholecystectomy, Heart Catheterization, Heart Catheterization With Stent, Hysterectomy, Orthopedic Surgery Additional Past Surgical History / Comment(s): PCI with stents, several back surgeries-lumbar, bilateral carpal tunnel releases, bilateral cataract removals, port then fistula for hemodialysis. PTBA to left leg 03-02-18 Past Anesthesia/Blood Transfusion Reactions: Previous Problems w/ Anesthesia Additional Past Anesthesia/Blood Transfusion Reaction / Comment(s): Confusion that resolved. Date of Last Stent Placement:: 10/06/17 Past Psychological History: No Psychological Hx Reported Smoking Status: Never smoker - Past Family History Father Additional Family Medical History / Comment(s): Brain aneurysm ; age 72 Sister(s) Family Medical History: Hypertension Additional Family Medical History / Comment(s): Aortic stenosis; mitral valve disease Mother Family Medical History: No Reported History, AFIB, CVA/TIA, Hypertension Additional Family Medical History / Comment(s): mother age 83 Daughter(s) Family Medical History: Asthma Son(s) Family Medical History: Asthma General Exam Limitations: no limitations General appearance: alert, in no apparent distress Head exam: Present: normocephalic Eye exam: Present: normal appearance, PERRL ENT exam: Present: normal oropharynx Neck exam: Present: normal inspection Respiratory exam: Present: normal lung sounds bilaterally Cardiovascular Exam: Present: regular rate, normal rhythm Expanded Peripheral pulses: 2+: Dorsalis Pedis (R), Dorsalis Pedis (L) GI/Abdominal exam: Present: soft, tenderness (Mild to moderate epigastric tenderness to palpate), normal bowel sounds. Absent: distended, guarding, rebound, rigid, pulsatile mass Extremities exam: Present: normal inspection Neurological exam: Present: alert. Absent: motor sensory deficit Psychiatric exam: Present: normal affect, normal mood Skin exam: Present: normal color Course Vital Signs 10/01/19 10/01/19 10/01/19 14:14 15:16 16:00 Temperature 98.3 F Pulse Rate 101 H 100 95 Respiratory 18 16 18 Rate Blood Pressure 121/48 170/67 136/63 O2 Sat by Pulse 92 L 99 99 Oximetry EKG Findings - EKG Comments: EKG Findings:: Normal sinus rhythm 100. WI 162. QRS 142. QT 418. QTC 539. Left axis. Right bundle branch block. Left anterior fascicular block. No acute ST change. Medical Decision Making - Medical Decision Making Patient reevaluated and resting comfortably in bed. Patient and family updated on results. Patient offered enema however patient and daughter refuses, they state they will do this at home. It was offered to touch base admitting physician regarding patient's general weakness however this was refused and they would like to be discharged. - Lab Data Result diagrams: 10/01/19 14:47 10/01/19 14:47 Lab Results 10/01/19 10/01/19 10/01/19 Range/Units 14:47 14:47 14:47 WBC 11.2 H (3.8-10.6) k/uL RBC 3.86 (3.80-5.40) m/uL Hgb 11.9 (11.4-16.0) gm/dL Hct 38.1 (34.0-46.0) % MCV 98.8 (80.0-100.0) fL MCH 30.9 (25.0-35.0) pg MCHC 31.3 (31.0-37.0) g/dL RDW 15.8 H (11.5-15.5) % Plt Count 231 (150-450) k/uL Neutrophils % 81 % Lymphocytes % 9 % Monocytes % 7 % Eosinophils % 2 % Basophils % 0 % Neutrophils # 9.0 H (1.3-7.7) k/uL Lymphocytes # 1.0 (1.0-4.8) k/uL Monocytes # 0.8 (0-1.0) k/uL Eosinophils # 0.2 (0-0.7) k/uL Basophils # 0.0 (0-0.2) k/uL Macrocytosis Slight PT 9.5 (9.0-12.0) sec INR 0.9 (<1.2) APTT 25.9 (22.0-30.0) sec Sodium 134 L (137-145) mmol/L Potassium 3.8 (3.5-5.1) mmol/L Chloride 90 L (98-107) mmol/L Carbon Dioxide 31 H (22-30) mmol/L Anion Gap 13 mmol/L BUN 33 H (7-17) mg/dL Creatinine 3.32 H (0.52-1.04) mg/dL Est GFR (CKD-EPI)AfAm 15 (>60 ml/min/1.73 sqM) Est GFR (CKD-EPI)NonAf 13 (>60 ml/min/1.73 sqM) Glucose 158 H (74-99) mg/dL Plasma Lactic Acid Satinder (0.7-2.0) mmol/L Calcium 9.0 (8.4-10.2) mg/dL Total Bilirubin 0.8 (0.2-1.3) mg/dL AST 29 (14-36) U/L ALT 23 (4-34) U/L Alkaline Phosphatase 208 H (38-126) U/L Troponin I (0.000-0.034) ng/mL Total Protein 7.5 (6.3-8.2) g/dL Albumin 4.0 (3.5-5.0) g/dL Amylase 50 (30-110) U/L Lipase 98 (23-300) U/L TSH 0.154 L (0.465-4.680) mIU/L Free T4 1.65 (0.78-2.19) ng/dL Free T3 pg/mL 2.6 L (2.8-5.3) pg/ml Urine Color Urine Appearance (Clear) Urine pH (5.0-8.0) Ur Specific [place] (1.001-1.035) Urine Protein (Negative) Urine Glucose (UA) (Negative) Urine Ketones (Negative) Urine Blood (Negative) Urine Nitrite (Negative) Urine Bilirubin (Negative) Urine Urobilinogen (<2.0) mg/dL Ur Leukocyte Esterase (Negative) Urine RBC (0-5) /hpf Urine WBC (0-5) /hpf Ur Squamous Epith Cells (0-4) /hpf Amorphous Sediment (None) /hpf Urine Bacteria (None) /hpf Hyaline Casts (0-2) /lpf Urine Mucus (None) /hpf 10/01/19 10/01/19 10/01/19 Range/Units 14:47 14:47 16:15 WBC (3.8-10.6) k/uL RBC (3.80-5.40) m/uL Hgb (11.4-16.0) gm/dL Hct (34.0-46.0) % MCV (80.0-100.0) fL MCH (25.0-35.0) pg MCHC (31.0-37.0) g/dL RDW (11.5-15.5) % Plt Count (150-450) k/uL Neutrophils % % Lymphocytes % % Monocytes % % Eosinophils % % Basophils % % Neutrophils # (1.3-7.7) k/uL Lymphocytes # (1.0-4.8) k/uL Monocytes # (0-1.0) k/uL Eosinophils # (0-0.7) k/uL Basophils # (0-0.2) k/uL Macrocytosis PT (9.0-12.0) sec INR (<1.2) APTT (22.0-30.0) sec Sodium (137-145) mmol/L Potassium (3.5-5.1) mmol/L Chloride (98-107) mmol/L Carbon Dioxide (22-30) mmol/L Anion Gap mmol/L BUN (7-17) mg/dL Creatinine (0.52-1.04) mg/dL Est GFR (CKD-EPI)AfAm (>60 ml/min/1.73 sqM) Est GFR (CKD-EPI)NonAf (>60 ml/min/1.73 sqM) Glucose (74-99) mg/dL Plasma Lactic Acid Satinder 1.4 (0.7-2.0) mmol/L Calcium (8.4-10.2) mg/dL Total Bilirubin (0.2-1.3) mg/dL AST (14-36) U/L ALT (4-34) U/L Alkaline Phosphatase (38-126) U/L Troponin I <0.012 (0.000-0.034) ng/mL Total Protein (6.3-8.2) g/dL Albumin (3.5-5.0) g/dL Amylase (30-110) U/L Lipase (23-300) U/L TSH (0.465-4.680) mIU/L Free T4 (0.78-2.19) ng/dL Free T3 pg/mL (2.8-5.3) pg/ml Urine Color Yellow Urine Appearance Cloudy H (Clear) Urine pH 5.5 (5.0-8.0) Ur Specific [place] 1.021 (1.001-1.035) Urine Protein 2+ H (Negative) Urine Glucose (UA) Negative (Negative) Urine Ketones Negative (Negative) Urine Blood Moderate H (Negative) Urine Nitrite Negative (Negative) Urine Bilirubin Negative (Negative) Urine Urobilinogen <2.0 (<2.0) mg/dL Ur Leukocyte Esterase Small H (Negative) Urine RBC 4 (0-5) /hpf Urine WBC 5 (0-5) /hpf Ur Squamous Epith Cells 6 H (0-4) /hpf Amorphous Sediment Rare H (None) /hpf Urine Bacteria Rare H (None) /hpf Hyaline Casts 22 H (0-2) /lpf Urine Mucus Rare H (None) /hpf - Radiology Data Radiology results: report reviewed (Abdominal x-ray shows fecal impaction), image reviewed (Chest x-ray shows cardiomegaly) Disposition Clinical Impression: Fatigue, Constipation, General weakness Disposition: HOME SELF-CARE Condition: Stable Instructions (If sedation given, give patient instructions): Weakness (ED), Fatigue (ED), Constipation (ED), High Fiber Diet (ED), Fleet Enema (ED) Additional Instructions: Please follow-up with primary care physician in the next day or 2 for recheck. Return for increased weakness, confusion, worsening symptoms or other concerns. Is patient prescribed a controlled substance at d/c from ED?: No Referrals: Stevenson Farias MD [Primary Care Provider] - 1-2 days Time of Disposition: 17:29
[2019-10-01 15:13] LABS: Basophils % (A) 0 %; Eosinophils # (A) 0.2 k/uL (0-0.7); Eosinophils % (A) 2 %; HCT 38.1 % (34.0-46.0); HGB 11.9 gm/dL (11.4-16.0); Lymphocytes % (A) 9 %; MCH 30.9 pg (25.0-35.0); MCHC 31.3 g/dL (31.0-37.0); MCV 98.8 fL (80.0-100.0); Macrocytosis Slight; Mean Platelet Volume 8.9; Monocytes # (A) 0.8 k/uL (0-1.0); Monocytes % (A) 7 %; Neutrophils % (A) 81 %; Platelet Count 231 k/uL (150-450); RBC 3.86 m/uL (3.80-5.40); RDW 15.8 % (11.5-15.5); WBC 11.2 k/uL (3.8-10.6)
[2019-10-01 15:19] LABS: Potassium 3.8 mmol/L (3.5-5.1); Total Bilirubin 0.8 mg/dL (0.2-1.3); Total Protein 7.5 g/dL (6.3-8.2)
[2019-10-01 15:26] LABS: INR 0.9 (<1.2); Partial Thromboplastin Time 25.9 sec (22.0-30.0); Prothrombin Time 9.5 sec (9.0-12.0)
--- NOTE | 2019-10-01 15:32 | XR ---
EXAMINATION TYPE: XR chest 2V DATE OF EXAM: 10/01/2019 COMPARISON: 05/09/2019 TECHNIQUE: PA and lateral views submitted. HISTORY: Dysrhythmia FINDINGS: Heart is enlarged there is postsurgical changes. Metallic density overlying the left upper heart bord er is stable in position. Postsurgical change involving the vertebral column. Biapical pleural thicke yemi. No overt failure. Limited inspiration limits the exam. Hypertrophic and degenerative change of the spine. IMPRESSION: 1. No definite acute process.
[2019-10-01 15:36] LABS: T4, Free (Free Thyroxine) 1.65 ng/dL (0.78-2.19)
--- NOTE | 2019-10-01 16:03 | CT ---
EXAMINATION TYPE: CT abdomen pelvis wo con DATE OF EXAM: 10/01/2019 COMPARISON: 11/09/2017 INDICATION: Abdominal pain. DLP: 1283.4 mGycm, Automated exposure control for dose reduction was used. CONTRAST: 0 mL of Isovue 300. Study performed without Oral Contrast TECHNIQUE: Axial images were obtained from above the diaphragm to the pubic rami in the axial plane a t 5 mm thick sections. Reconstructed images are reviewed on the computer in the coronal plane. FINDINGS: Limited CT sections are obtained the lung bases. There is a minimal right pleural effusion. Coronary artery calcification is present.. CT ABDOMEN: Beam hardening artifact from fixation rods within the lumbar lower thoracic region cause limitation during portions of this examination. Liver: Normal Spleen: Normal Pancreas: Normal Adrenal glands: The adrenal glands are normal. Gallbladder: Surgically absent Kidneys: No masses are evident. No hydronephrosis is present. No cysts are present. No renal stone s are identified. Aorta: Vascular calcification is within the aorta. Inferior vena cava: Normal. CT PELVIS: Loops of bowel within the abdomen and pelvis are normal. There is a large fecal bolus at the leve l the rectum. Appendix: Not visualized Urinary bladder: Decompressed with limited evaluation Genitourinary structures: Uterus and ovaries are not identified. Osseous structures: No suspicious lytic or sclerotic lesions. Fixation rods and pedicle screws are pr esent within the lumbar spine. There is some posterior endplate spurring at L4-5 is likely congenital be due to stenosis. Correlate for right foraminal narrowing as well. Compression deformities of T11 and T12 are evident. IMPRESSIONS: 1. Large fecal bolus at the rectum. Correlate for fecal impaction. 2. Chronic postsurgical changes.
[2019-10-01 16:33] LABS: Amorphous Sediment,Urine Rare /hpf; Appearance,Urine Cloudy (Clear); Bacteria,Urine Rare /hpf; Bilirubin,Urine Negative (Negative); Blood,Urine Moderate (Negative); Color,Urine Yellow; Glucose,Urine (UA) Negative (Negative); Hyaline Casts,Urine 22 /lpf (0-2); Ketones,Urine Negative (Negative); Leukocyte Esterase,Urine Small (Negative); Mucus,Urine Rare /hpf; Nitrite,Urine Negative (Negative); PH, Urine 5.5 (5.0-8.0); Protein,Urine 2+ (Negative); RBC,Urine 4 /hpf (0-5); Specific Gravity,Urine 1.021 (1.001-1.035); Squamous Epithelial Cell,Urine 6 /hpf (0-4); Urobilinogen,Urine <2.0 mg/dL (<2.0); WBC,Urine 5 /hpf (0-5)
[2019-10-01] MEDS ORDERED: NA PHOS,M-B/NA PHOS,DI-BA 133 ML ENEMA RECTAL STA (16:45)
[2019-10-01 16:46] VITALS: RESP 18
[2019-10-01 17:45] VITALS: BP 140/57; PULSE 94
== END 2019-10-01 17:46 | disposition home or self-care (01) ==
LOC: EC 14:11
DX: R53.1 Weakness (principal); K59.00 Constipation, unspecified; R53.83 Other fatigue; R63.0 Anorexia; I48.91 Unspecified atrial fibrillation; I25.10 Atherosclerotic heart disease of native coronary artery without angina pectoris; I13.2 Hypertensive heart and chronic kidney disease with heart failure and with stage 5 chronic kidney disease, or end stage renal disease; E11.22 Type 2 diabetes mellitus with diabetic chronic kidney disease; N18.6 End stage renal disease; I50.9 Heart failure, unspecified; K21.9 Gastro-esophageal reflux disease without esophagitis; E78.5 Hyperlipidemia, unspecified; I25.2 Old myocardial infarction; G47.30 Sleep apnea, unspecified; Z99.89 Dependence on other enabling machines and devices; Z99.2 Dependence on renal dialysis; Z86.14 Personal history of Methicillin resistant Staphylococcus aureus infection; Z95.818 Presence of other cardiac implants and grafts; Z95.5 Presence of coronary angioplasty implant and graft; Z53.29 Procedure and treatment not carried out because of patient's decision for other reasons; Z53.8 Procedure and treatment not carried out for other reasons; Z79.4 Long term (current) use of insulin; Z79.82 Long term (current) use of aspirin; Z79.899 Other long term (current) drug therapy; Z88.8 Allergy status to other drugs, medicaments and biological substances; Z88.1 Allergy status to other antibiotic agents; Z88.5 Allergy status to narcotic agent
CPT/HCPCS: 36415; 93005; 84439; 84481; 80053; 82150; 83605; 83690; 84443; 84484; 85025; 85610; 85730; 81001; 71046; 74176; 99285; 51702; 96374; J1170

== ENCOUNTER 2020-01-12 15:39 | Inpatient (IN) | payer MEDICARE ==
[2020-01-12] MEDS ORDERED: SODIUM CHLORIDE 0.9% 1,000 ML IV ONE (16:06)
[2020-01-12] MEDS ORDERED: SODIUM CHLORIDE 0.9% 500 ML 500 ML IV ONE (16:06)
[2020-01-12 16:39] LABS: INR 0.9 (<1.2); Partial Thromboplastin Time 24.8 sec (22.0-30.0); Prothrombin Time 9.8 sec (9.0-12.0)
[2020-01-12 16:41] LABS: Albumin 4.5 g/dL (3.5-5.0); Basophils # (A) 0.1 k/uL (0-0.2); Basophils % (A) 1 %; Calcium 9.4 mg/dL (8.4-10.2); Eosinophils # (A) 0.2 k/uL (0-0.7); Eosinophils % (A) 2 %; HCT 36.5 % (34.0-46.0); HGB 11.6 gm/dL (11.4-16.0); Lymphocytes # (A) 0.9 k/uL (1.0-4.8); Lymphocytes % (A) 12 %; MCH 33.4 pg (25.0-35.0); MCHC 31.9 g/dL (31.0-37.0); MCV 104.5 fL (80.0-100.0); Macrocytosis Slight; Mean Platelet Volume 8.7; Monocytes # (A) 0.4 k/uL (0-1.0); Monocytes % (A) 5 %; Neutrophils # (A) 5.8 k/uL (1.3-7.7); Neutrophils % (A) 78 %; Platelet Count 198 k/uL (150-450); Potassium 4.3 mmol/L (3.5-5.1); RBC 3.49 m/uL (3.80-5.40); RDW 14.3 % (11.5-15.5); Total Bilirubin 0.7 mg/dL (0.2-1.3); Total Protein 7.9 g/dL (6.3-8.2); WBC 7.5 k/uL (3.8-10.6)
[2020-01-12 16:43] LABS: Appearance,Urine Turbid (Clear); Bacteria,Urine Many /hpf; Bilirubin,Urine Negative (Negative); Blood,Urine Moderate (Negative); Color,Urine Yellow; Glucose,Urine (UA) Negative (Negative); Ketones,Urine Negative (Negative); Leukocyte Esterase,Urine Large (Negative); Mucus,Urine Occasional /hpf; Nitrite,Urine Negative (Negative); Protein,Urine 2+ (Negative); RBC,Urine 22 /hpf (0-5); Squamous Epithelial Cell,Urine 10 /hpf (0-4); Urobilinogen,Urine <2.0 mg/dL (<2.0); WBC,Urine >182 /hpf (0-5)
[2020-01-12 16:45] LABS: Specific Gravity,Urine 1.019 (1.001-1.035)
[2020-01-12] MEDS ORDERED: PIPERACILLIN-TAZOBACTAM 3.375 GM in SODIUM CHLORIDE 0.9% 100 ML IVPB STA (16:53)
--- NOTE | 2020-01-12 16:57 | ED ---
Female Urogenital HPI - General Chief complaint: Urogenital Stated complaint: UTI Time Seen by Provider: 01/12/20 15:55 Source: patient, RN notes reviewed, old records reviewed Mode of arrival: ambulatory Limitations: no limitations - History of Present Illness Initial comments: Patient is a 74-year-old female presents to the ER today for evaluation for concern for persistent urinary tract infections. Patient reports that she does do dialysis and she does dialysis on Tuesdays and Saturdays. Her last dialysis was a. Patient has been treated for UTI for the past month initially on Bactrim and then later switched to clindamycin. She was on day 9 out of 10 up the clindamycin. She completed the general fatigue but no fevers. She start ing to complain of some back pain and suprapubic pain. Patient reports that she only urinates once to twice a day. The daughter collected a urine at home. - Related Data Home Medications Medication Instructions Recorded Confirmed DULoxetine HCL [Cymbalta] 60 mg PO DAILY 08/04/14 01/12/20 Amiodarone HCl [Pacerone] 100 mg PO DAILY 11/22/15 01/12/20 Docusate [Colace] 100 mg PO BID 11/22/15 01/12/20 Ezetimibe [Zetia] 10 mg PO DAILY 11/22/15 01/12/20 Omeprazole 20 mg PO DAILY 12/25/16 01/12/20 Cholecalciferol (Vitamin D3) 2,000 unit PO DAILY 12/31/16 01/12/20 [Vitamin D3] Ferrous Sulfate [Iron (65 MG 325 mg PO DAILY 05/05/17 01/12/20 Elemental)] Magnesium Oxide [Mag-Ox] 250 mg PO DAILY 05/05/17 01/12/20 Midodrine HCl [ProAmatine] 10 mg PO DIRECTED PRN 10/23/17 01/12/20 Acetaminophen Tab [Tylenol] 650 mg PO Q4H 11/09/17 01/12/20 Aspirin [Adult Low Dose Aspirin EC] 81 mg PO DAILY 03/02/18 01/12/20 metOLazone [Zaroxolyn] 5 mg PO BID 02/11/19 01/12/20 Calcium Carbonate [Tums] 500 - 1,000 mg PO TID PRN 01/12/20 01/12/20 Cranberry 4200mg 4,200 mg PO BID 01/12/20 01/12/20 Furosemide [Lasix] 80 mg PO BID 01/12/20 01/12/20 Insulin Aspart [NovoLOG Flexpen] 12 units SQ AC-BRKFST 01/12/20 01/12/20 Insulin Aspart [NovoLOG Flexpen] 14 units SQ AC-BID@1200,1800 01/12/20 01/12/20 Insulin Glargine,Hum.rec.anlog 25 units SQ BID 01/12/20 01/12/20 [Lantus Solostar] L.acidoph,Paracasei, B.lactis 1 cap PO DAILY 01/12/20 01/12/20 [Probiotic] Lactulose [Constulose] 30 gm PO BID PRN 01/12/20 01/12/20 Metoprolol Succinate (ER) [Toprol 50 mg PO SUMOWEFR 01/12/20 01/12/20 Xl] [place]-3 Fatty Acids/Fish Oil [Fish 1 cap PO MOWEFR 01/12/20 01/12/20 Oil 1,000 mg Softgel] Sevelamer [Renvela] 800 mg PO AC-BRKFST 01/12/20 01/12/20 clindamycin HCL [Cleocin] 300 mg PO TID 01/12/20 01/12/20 Previous Rx's Medication Instructions Recorded Gabapentin [Neurontin] 300 mg PO BID #60 capsule 11/27/15 Clopidogrel [Plavix] 75 mg PO DAILY #30 tab 08/21/17 Allergies Allergy/AdvReac Type Severity Reaction Status Date / Time KUSHAL Inhibitors Allergy Swelling Verified 01/12/20 17:52 ARB-Angiotensin Receptor Allergy Swelling Verified 01/12/20 17:52 Antagonist cephalexin monohydrate Allergy Rash/Hives, Verified 01/12/20 17:52 [From Keflex] MOUTH SWELLING propoxyphene HCl AdvReac Hallucinati Verified 01/12/20 17:52 [From Darvon] ons Cphmrlb-Gye-Nsk Reductase AdvReac Myalgia Verified 01/12/20 17:52 Inhibitor Review of Systems ROS Statement: Those systems with pertinent positive or pertinent negative responses have been documented in the HPI. ROS Other: All systems not noted in ROS Statement are negative. Past Medical History Past Medical History: Atrial Fibrillation, Coronary Artery Disease (CAD), Heart Failure, Diabetes Mellitus, Dialysis, GERD/Reflux, GI Bleed, Hyperlipidemia, H ypertension, Myocardial Infarction ([place]), Pneumonia, Renal Disease, Sleep Apnea/CPAP/BIPAP, Vascular Disorder Additional Past Medical History / Comment(s): HEMODIALYSIS- MONDAY,MONDAY,AND MONDAY . USES WHEELCHAIR-TRANSFERS ONLY -CAN TAKE A COUPLE OF STEPS, hx. GI bleed >year ago, SOB w/exertion, uses oxygen prn @2l, see Dr Combs H & P Last Myocardial Infarction Date:: 2015 History of Any Multi-Drug Resistant Organisms: MRSA Date of last positivie culture/infection: 02/09/18 MDRO Source:: LT THIRD TOE Past Surgical History: Back Surgery, Cholecystectomy, Heart Catheterization, Heart Catheterization With Stent, Hysterectomy, Orthopedic Surgery Additional Past Surgical History / Comment(s): PCI with stents, several back surgeries-lumbar, bilateral carpal tunnel releases, bilateral cataract removals, port then fistula for hemodialysis. PTBA to left leg 03-02-18 Past Anesthesia/Blood Transfusion Reactions: Previous Problems w/ Anesthesia Additional Past Anesthesia/Blood Transfusion Reaction / Comment(s): Confusion that resolved. Date of Last Stent Placement:: 10/06/17 Past Psychological History: No Psychological Hx Reported Smoking Status: Never smoker Past Alcohol Use History: None Reported Past Drug Use History: None Reported - Past Family History Father Additional Family Medical History / Comment(s): Brain aneurysm ; age 72 Sister(s) Family Medical History: Hypertension Additional Family Medical History / Comment(s): Aortic stenosis; mitral valve disease Mother Family Medical History: No Reported History, AFIB, CVA/TIA, Hypertension Additional Family Medical History / Comment(s): mother age 83 Daughter(s) Family Medical History: Asthma Son(s) Family Medical History: Asthma General Exam - General Exam Comments Initial Comments: 74-year-old female. General debility and weakness. Alert and oriented 3. Limitations: no limitations General appearance: alert, in no apparent distress Head exam: Present: atraumatic, normocephalic, normal inspection Eye exam: Present: normal appearance, PERRL, EOMI. Absent: scleral icterus, conjunctival injection, periorbital swelling ENT exam: Present: normal exam, mucous membranes moist Neck exam: Present: normal inspection. Absent: tenderness, meningismus, lymphadenopathy Respiratory exam: Present: normal lung sounds bilaterally. Absent: respiratory distress, wheezes, rales, rhonchi, stridor Cardiovascular Exam: Present: regular rate, normal rhythm, normal heart sounds. Absent: systolic murmur, diastolic murmur, rubs, gallop, clicks GI/Abdominal exam: Present: soft, normal bowel sounds. Absent: distended, tenderness, guarding, rebound, rigid Extremities exam: Present: normal inspection, full ROM, normal capillary refill. Absent: tenderness, pedal edema, joint swelling, calf tenderness Back exam: Present: normal inspection Neurological exam: Present: alert, oriented X3, CN II-XII intact Psychiatric exam: Present: normal affect, normal mood Skin exam: Present: warm, dry, intact, normal color. Absent: rash Course Vital Signs 01/12/20 01/12/20 01/12/20 15:42 16:45 17:00 Temperature 98.3 F Pulse Rate 91 86 86 Respiratory 18 18 18 Rate Blood Pressure 147/71 141/60 143/59 O2 Sat by Pulse 93 L 95 95 Oximetry Medical Decision Making - Medical Decision Making 74-year-old female presents the ER today for resistant urinary tract infection. Last urine culture was done on December 31 had multiple in fact that she is resistant to and she has multiple ALLERGIES requiring IV antibiotic. She was on clindamycin for the past 9 days and persisting to have UTI. She only urinates once of twice a day she is on dialysis she states there is a [address] Botello. White blood cell count was within normal limits. Urinalysis was provided from home is significantly cloudy in evidence of infection. This will be cultured today as well. Patient will be started on IV Zosyn for resistant UTI. Consults to Dr. Botello and Dr. Ortega for infectious disease. - Lab Data Result diagrams: 01/12/20 16:21 01/12/20 16:21 Lab Results 01/12/20 01/12/20 01/12/20 Range/Units 16:21 16:21 16:21 WBC 7.5 (3.8-10.6) k/uL RBC 3.49 L (3.80-5.40) m/uL Hgb 11.6 (11.4-16.0) gm/dL Hct 36.5 (34.0-46.0) % MCV 104.5 H (80.0-100.0) fL MCH 33.4 (25.0-35.0) pg MCHC 31.9 (31.0-37.0) g/dL RDW 14.3 (11.5-15.5) % Plt Count 198 (150-450) k/uL Neutrophils % 78 % Lymphocytes % 12 % Monocytes % 5 % Eosinophils % 2 % Basophils % 1 % Neutrophils # 5.8 (1.3-7.7) k/uL Lymphocytes # 0.9 L (1.0-4.8) k/uL Monocytes # 0.4 (0-1.0) k/uL Eosinophils # 0.2 (0-0.7) k/uL Basophils # 0.1 (0-0.2) k/uL Manual Slide Review Performed Macrocytosis Slight PT 9.8 (9.0-12.0) sec INR 0.9 (<1.2) APTT 24.8 (22.0-30.0) sec Sodium (137-145) mmol/L Potassium (3.5-5.1) mmol/L Chloride (98-107) mmol/L Carbon Dioxide (22-30) mmol/L Anion Gap mmol/L BUN (7-17) mg/dL Creatinine (0.52-1.04) mg/dL Est GFR (CKD-EPI)AfAm (>60 ml/min/1.73 sqM) Est GFR (CKD-EPI)NonAf (>60 ml/min/1.73 sqM) Glucose (74-99) mg/dL Plasma Lactic Acid Satinder (0.7-2.0) mmol/L Calcium (8.4-10.2) mg/dL Total Bilirubin (0.2-1.3) mg/dL AST (14-36) U/L ALT (4-34) U/L Alkaline Phosphatase (38-126) U/L Total Protein (6.3-8.2) g/dL Albumin (3.5-5.0) g/dL Urine Color Yellow Urine Appearance Turbid H (Clear) Urine pH 6.0 (5.0-8.0) Ur Specific [place] 1.019 (1.001-1.035) Urine Protein 2+ H (Negative) Urine Glucose (UA) Negative (Negative) Urine Ketones Negative (Negative) Urine Blood Moderate H (Negative) Urine Nitrite Negative (Negative) Urine Bilirubin Negative (Negative) Urine Urobilinogen <2.0 (<2.0) mg/dL Ur Leukocyte Esterase Large H (Negative) Urine RBC 22 H (0-5) /hpf Urine WBC >182 H (0-5) /hpf Ur Squamous Epith Cells 10 H (0-4) /hpf Urine Bacteria Many H (None) /hpf Urine Mucus Occasional H (None) /hpf 01/12/20 01/12/20 Range/Units 16:21 16:21 WBC (3.8-10.6) k/uL RBC (3.80-5.40) m/uL Hgb (11.4-16.0) gm/dL Hct (34.0-46.0) % MCV (80.0-100.0) fL MCH (25.0-35.0) pg MCHC (31.0-37.0) g/dL RDW (11.5-15.5) % Plt Count (150-450) k/uL Neutrophils % % Lymphocytes % % Monocytes % % Eosinophils % % Basophils % % Neutrophils # (1.3-7.7) k/uL Lymphocytes # (1.0-4.8) k/uL Monocytes # (0-1.0) k/uL Eosinophils # (0-0.7) k/uL Basophils # (0-0.2) k/uL Manual Slide Review Macrocytosis PT (9.0-12.0) sec INR (<1.2) APTT (22.0-30.0) sec Sodium 136 L (137-145) mmol/L Potassium 4.3 (3.5-5.1) mmol/L Chloride 94 L (98-107) mmol/L Carbon Dioxide 25 (22-30) mmol/L Anion Gap 17 mmol/L BUN 43 H (7-17) mg/dL Creatinine 5.15 H (0.52-1.04) mg/dL Est GFR (CKD-EPI)AfAm 9 (>60 ml/min/1.73 sqM) Est GFR (CKD-EPI)NonAf 8 (>60 ml/min/1.73 sqM) Glucose 203 H (74-99) mg/dL Plasma Lactic Acid Satinder 2.0 (0.7-2.0) mmol/L Calcium 9.4 (8.4-10.2) mg/dL Total Bilirubin 0.7 (0.2-1.3) mg/dL AST 39 H (14-36) U/L ALT 23 (4-34) U/L Alkaline Phosphatase 169 H (38-126) U/L Total Protein 7.9 (6.3-8.2) g/dL Albumin 4.5 (3.5-5.0) g/dL Urine Color Urine Appearance (Clear) Urine pH (5.0-8.0) Ur Specific [place] (1.001-1.035) Urine Protein (Negative) Urine Glucose (UA) (Negative) Urine Ketones (Negative) Urine Blood (Negative) Urine Nitrite (Negative) Urine Bilirubin (Negative) Urine Urobilinogen (<2.0) mg/dL Ur Leukocyte Esterase (Negative) Urine RBC (0-5) /hpf Urine WBC (0-5) /hpf Ur Squamous Epith Cells (0-4) /hpf Urine Bacteria (None) /hpf Urine Mucus (None) /hpf - Radiology Data Radiology results: report reviewed EKG shows normal sinus rhythm right bundle branch block. Left anterior fascicular block. Biphasic a lack. Ventricular rate of 80 beats were minute period. Intervals 152 ms. QRS ration is 1:30 milliseconds. QT QTc is 446/539 ms. Disposition Clinical Impression: UTI (urinary tract infection), Dialysis patient, Failure of outpatient treatment Disposition: ADMITTED IP TO THIS HOSP Condition: Good Is patient prescribed a controlled substance at d/c from ED?: No Referrals: Stevenson Farias MD [Primary Care Provider] - 1-2 days Time of Disposition: 18:10
[2020-01-12] MEDS ORDERED: ACETAMINOPHEN TAB 500 MG TAB PO STA (18:03)
[2020-01-12] MEDS ORDERED: IBUPROFEN 400 MG TAB PO PRN (18:14)
[2020-01-12] MEDS ORDERED: NALOXONE 0.4 MG/ML 1 ML VIAL IV PRN (18:14)
[2020-01-12] MEDS ORDERED: ONDANSETRON 4 MG/2 ML VIAL IVP PRN (18:14)
[2020-01-12] MEDS: ACETAMINOPHEN TAB 325 MG TAB PO PRN (22:40)
[2020-01-12] MEDS: SODIUM CHLORIDE 0.9% 1,000 ML IV SCH (22:42)
[2020-01-12] MEDS ORDERED: CALCIUM CARBONATE 500 MG CHEWABLE PO PRN (22:58)
[2020-01-12] MEDS ORDERED: LACTULOSE 20 GM/30 ML CUP PO PRN (22:58)
[2020-01-13] MEDS: ACETAMINOPHEN TAB 325 MG TAB PO SCH ×7 (03:57→22:21)
[2020-01-13 06:54] LABS: Glucose,Whole Blood 117 mg/dL (75-99)
[2020-01-13] MEDS: INSULIN ASPART (NovoLOG) 100 UNIT/ML VIAL SQ SCH ×3 (07:27→17:37)
[2020-01-13] MEDS: INSULIN DETEMIR (LEVEMIR) 100 UNIT/ML SYR SQ SCH ×2 (07:27→22:18)
[2020-01-13] MEDS: SEVELAMER 800 MG TAB PO SCH (07:28)
[2020-01-13] MEDS: AMIODARONE 100 MG TAB PO SCH (07:28)
[2020-01-13] MEDS: ASPIRIN 81 MG PO SCH (07:28)
[2020-01-13] MEDS: CHOLECALCIFEROL 1,000 UNIT TAB PO SCH (07:28)
[2020-01-13] MEDS: CLOPIDOGREL 75 MG TAB PO SCH (07:29)
[2020-01-13] MEDS: DOCUSATE 100 MG CAP PO SCH ×2 (07:29→22:17)
[2020-01-13] MEDS: DULoxetine HCL 60 MG CAPSULE.DR PO SCH (07:29)
[2020-01-13] MEDS: EZETIMIBE 10 MG TAB PO SCH (07:29)
[2020-01-13] MEDS: FUROSEMIDE 80 MG TAB PO SCH ×2 (07:29→22:18)
[2020-01-13] MEDS: GABAPENTIN 300 MG CAP PO SCH ×2 (07:29→22:18)
[2020-01-13] MEDS: metOLazone 5 MG TAB PO SCH ×2 (07:30→22:54)
[2020-01-13] MEDS: METOPROLOL SUCCINATE (ER) 50 MG TAB.ER.24H PO SCH (07:30)
[2020-01-13] MEDS: PANTOPRAZOLE 40 MG/10 ML VIAL IV SCH (07:30)
[2020-01-13] MEDS: PIPERACILLIN-TAZOBACTAM 3.375 GM in SODIUM CHLORIDE 0.9% 100 ML IVPB SCH ×2 (07:31→22:45)
[2020-01-13] MEDS ORDERED: NON FORMULARY DRUG (Omeprazole [Omeprazole] 20 MG Capsule.Dr) PO SCH (09:00)
[2020-01-13] MEDS ORDERED: NON FORMULARY DRUG (Magnesium Oxide 250 MG Tab) PO SCH (09:00)
[2020-01-13] MEDS ORDERED: NON FORMULARY DRUG (Cranberry 4200mg 4,200 MG) PO SCH (09:00)
[2020-01-13] MEDS ORDERED: NON FORMULARY DRUG (L.Acidoph,Paracasei, B.Lactis [Probiotic] 1 EACH Capsule) PO SCH (09:00)
[2020-01-13] MEDS ORDERED: FERROUS SULFATE 325 MG TAB PO SCH (09:00)
[2020-01-13] MEDS: ACETAMINOPHEN TAB 325 MG TAB PO PRN (09:02)
--- NOTE | 2020-01-13 10:30 | P.HPIM ---
History of Present Illness H&P Date: 01/13/20 Chief Complaint: UTI This is a 74-year-old female patient of Dr. Farias with past medical history of proximal atrial fibrillation, coronary artery disease status post AR, chronic diastolic heart failure, diabetes, hyperlipidemia, hypertension, hypertensive cardiovascular disease, end-stage renal disease on hemodialysis, aortic stenosis status post TAVR in 2018. Patient reports she was being treated for urinary tract infection by the nurse practitioner at Dr. Botello's office for the last month. Patient reports she failed on Bactrim, Cipro, then clindamycin. The last urine culture was done on 12/31 showed E. coli with multiple susceptibilities, unfortunately resistant to Bactrim and Cipro. Patient was brought to the emergency department where she is noted to have mild confusion. She was started on IV Zosyn. Urine culture is pending, laboratory values reveal WBC 7.5, hemoglobin 11.6, hematocrit 36.5, sodium 136, potassium 4.3, BUN 43, creatinine 5.1, UA was positive for infection. Patient reports she still does make urine, only urinates once per day and maybe 100-200 mL's. Patient will be due for dialysis tomorrow, nephrology is on consult as well as infectious disease. Review of Systems CONSTITUTIONAL: Well-developed no acute respiratory distress. Laying in bed no distress or pain EYES: No icterus sclerae, no conjunctivitis. EARS, NOSE, MOUTH, THROAT, and FACE: No sore throat, lymphadenopathy, carotid bruits or deformity. RESPIRATORY: No SOB cough or wheezes. CARDIOVASCULAR: No CP, Palpitation, PND, Orthopnea, or angina. GASTROINTESTINAL: No further rectal bleed today still having mild abdominal discomfort. GENITOURINARY: Still on hemodialysis doesn't make much urine. INTEGUMENT/BREAST: Negative for any muscular injury with mild osteoarthritis.. HEMATOLOGIC/LYMPHATIC: Negative for bleed or purpura. MUSCULOSKELTAL: Negative for Myalgia or arthralgia. NEURLOGICAL: Mild confusion no syncope no dizziness. BEHAVIORAL/PSYCH: Negative. ENDOCRINE: Negative. Past Medical History Past Medical History: Atrial Fibrillation, Coronary Artery Disease (CAD), Heart Failure, Diabetes Mellitus, Dialysis, GERD/Reflux, GI Bleed, Hyperlipidemia, Hypertension, Myocardial Infarction ([place]), Pneumonia, Renal Disease, Sleep Apnea/CPAP/BIPAP, Vascular Disorder Additional Past Medical History / Comment(s): HEMODIALYSIS- MONDAY,MONDAY,AND MONDAY . USES WHEELCHAIR-TRANSFERS ONLY -CAN TAKE A COUPLE OF STEPS, hx. GI bleed >year ago, SOB w/exertion, uses oxygen prn @2l, see Dr Combs H & P. TAVR Last Myocardial Infarction Date:: 2015 History of Any Multi-Drug Resistant Organisms: MRSA Date of last positivie culture/infection: 02/09/18 MDRO Source:: LT THIRD TOE Past Surgical History: Back Surgery, Cholecystectomy, Heart Catheterization, Heart Catheterization With Stent, Hysterectomy, Orthopedic Surgery Additional Past Surgical History / Comment(s): PCI with stents, several back surgeries-lumbar, bilateral carpal tunnel releases, bilateral cataract removals, port then fistula for hemodialysis. PTBA to left leg 03-02-18. TAVR [facility] [address] Rock at [facility] Past Anesthesia/Blood Transfusion Reactions: Previous Problems w/ Anesthesia Additional Past Anesthesia/Blood Transfusion Reaction / Comment(s): Confusion that resolved. Date of Last Stent Placement:: 10/06/17 Past Psychological History: No Psychological Hx Reported Additional Psychological History / Comment(s): Single but lives with her daughter who is her caregiver Smoking Status: Never smoker Past Alcohol Use History: None Reported Additional Past Alcohol Use History / Comment(s): Patient had exposure to secondhand smoke with her . Past Drug Use History: None Reported - Past Family History Father Additional Family Medical History / Comment(s): Brain aneurysm ; age 72 Sister(s) Family Medical History: Hypertension Additional Family Medical History / Comment(s): Aortic stenosis; mitral valve disease Mother Family Medical History: No Reported History, AFIB, CVA/TIA, Hypertension Additional Family Medical History / Comment(s): mother age 83 Daughter(s) Family Medical History: Asthma Son(s) Family Medical History: Asthma Medications and Allergies Home Medications Medication Instructions Recorded Confirmed Type DULoxetine HCL [Cymbalta] 60 mg PO DAILY 08/04/14 01/12/20 History Amiodarone HCl [Pacerone] 100 mg PO DAILY 11/22/15 01/12/20 History Docusate [Colace] 100 mg PO BID 11/22/15 01/12/20 History Ezetimibe [Zetia] 10 mg PO DAILY 11/22/15 01/12/20 History Gabapentin [Neurontin] 300 mg PO BID #60 capsule 11/27/15 01/12/20 Rx Omeprazole 20 mg PO DAILY 12/25/16 01/12/20 History Cholecalciferol (Vitamin D3) 2,000 unit PO DAILY 12/31/16 01/12/20 History [Vitamin D3] Ferrous Sulfate [Iron (65 MG 325 mg PO DAILY 05/05/17 01/12/20 History Elemental)] Magnesium Oxide [Mag-Ox] 250 mg PO DAILY 05/05/17 01/12/20 History Clopidogrel [Plavix] 75 mg PO DAILY #30 tab 08/21/17 01/12/20 Rx Midodrine HCl [ProAmatine] 10 mg PO DIRECTED PRN 10/23/17 01/12/20 History Acetaminophen Tab [Tylenol] 650 mg PO Q4H 11/09/17 01/12/20 History Aspirin [Adult Low Dose Aspirin EC] 81 mg PO DAILY 03/02/18 01/12/20 History metOLazone [Zaroxolyn] 5 mg PO BID 02/11/19 01/12/20 History Calcium Carbonate [Tums] 500 - 1,000 mg PO TID PRN 01/12/20 01/12/20 History Cranberry 4200mg 4,200 mg PO BID 01/12/20 01/12/20 History Furosemide [Lasix] 80 mg PO BID 01/12/20 01/12/20 History Insulin Aspart [NovoLOG Flexpen] 12 units SQ AC-BRKFST 01/12/20 01/12/20 History Insulin Aspart [NovoLOG Flexpen] 14 units SQ AC-BID@1200,1800 01/12/20 01/12/20 History Insulin Glargine,Hum.rec.anlog 25 units SQ BID 01/12/20 01/12/20 History [Lantus Solostar] L.acidoph,Paracasei, B.lactis 1 cap PO DAILY 01/12/20 01/12/20 History [Probiotic] Lactulose [Constulose] 30 gm PO BID PRN 01/12/20 01/12/20 History Metoprolol Succinate (ER) [Toprol 50 mg PO SUMOWEFR 01/12/20 01/12/20 History Xl] [place]-3 Fatty Acids/Fish Oil [Fish 1 cap PO MOWEFR 01/12/20 01/12/20 History Oil 1,000 mg Softgel] Sevelamer [Renvela] 800 mg PO AC-BRKFST 01/12/20 01/12/20 History clindamycin HCL [Cleocin] 300 mg PO TID 01/12/20 01/12/20 History Allergies Allergy/AdvReac Type Severity Reaction Status Date / Time KUSHAL Inhibitors Allergy Swelling Verified 01/12/20 17:52 ARB-Angiotensin Receptor Allergy Swelling Verified 01/12/20 17:52 Antagonist cephalexin monohydrate Allergy Rash/Hives, Verified 01/12/20 17:52 [From Keflex] MOUTH SWELLING propoxyphene HCl AdvReac Hallucinati Verified 01/12/20 17:52 [From Darvon] ons Dcuejjk-Hfr-Fnn Reductase AdvReac Myalgia Verified 01/12/20 17:52 Inhibitor Physical Exam Vitals: Vital Signs Temp Pulse Pulse Resp BP BP Pulse Ox 01/13/20 07:00 97.8 F 84 17 160/71 90 L 01/13/20 01:25 97.5 F L 77 18 131/51 94 L 01/12/20 20:19 98.4 F 84 16 165/62 96 01/12/20 19:10 98.3 F 86 18 147/61 95 01/12/20 19:00 86 18 147/61 95 01/12/20 18:00 18 95 01/12/20 17:00 86 18 143/59 95 01/12/20 16:45 86 18 141/60 95 01/12/20 15:42 98.3 F 91 18 147/71 93 L Intake and Output 01/12/20 01/13/20 01/13/20 22:59 06:59 14:59 Intake Total 380 460 Balance 380 460 Intake: Intake, IV Titration 80 160 Amount Sodium Chloride 0.9% 1, 80 160 000 ml @ 20 mls/hr IV . Q24H [facility] Rx#:[id number] Oral 300 300 Other: Voiding Method Incontinent Bedside Commode # Voids 1 Weight 88 kg - Constitutional General appearance: mild distress, obese - EENT Eyes: anicteric sclerae, EOMI, PERRLA, no ptosis, no scleral icterus, normal appearance ENT: hearing grossly normal, normal oropharynx Ears: bilateral: normal - Neck Neck: no lymphadenopathy, normal ROM, no rigidity Carotids: bilateral: upstroke normal - Respiratory Respiratory: bilateral: diminished, prolonged expiration, negative: dullness, rales, rhonchi, wheezing - Cardiovascular Rhythm: regular Heart sounds: normal: S1, S2 Abnormal Heart Sounds: systolic murmur - Gastrointestinal General gastrointestinal: normal bowel sounds, soft, no splenomegaly, no tenderness, no umbilical hernia, no ventral hernia - Integumentary Integumentary: normal, normal turgor - Neurologic Neurologic: CNII-XII intact - Musculoskeletal Musculoskeletal: generalized weakness, bilateral lower extremities atrophied - Psychiatric Psychiatric: A&O x's 3, appropriate affect, intact judgment & insight Results CBC & Chem 7: 01/12/20 16:21 01/12/20 16:21 Labs: Abnormal Lab Results - Last 24 Hours (Table) 01/12/20 01/12/20 01/12/20 Range/Units 16:21 16:21 16:21 RBC 3.49 L (3.80-5.40) m/uL MCV 104.5 H (80.0-100.0) fL Lymphocytes # 0.9 L (1.0-4.8) k/uL Sodium 136 L (137-145) mmol/L Chloride 94 L (98-107) mmol/L BUN 43 H (7-17) mg/dL Creatinine 5.15 H (0.52-1.04) mg/dL Glucose 203 H (74-99) mg/dL POC Glucose (mg/dL) (75-99) mg/dL AST 39 H (14-36) U/L Alkaline Phosphatase 169 H (38-126) U/L Urine Appearance Turbid H (Clear) Urine Protein 2+ H (Negative) Urine Blood Moderate H (Negative) Ur Leukocyte Esterase Large H (Negative) Urine RBC 22 H (0-5) /hpf Urine WBC >182 H (0-5) /hpf Ur Squamous Epith Cells 10 H (0-4) /hpf Urine Bacteria Many H (None) /hpf Urine Mucus Occasional H (None) /hpf 01/13/20 Range/Units 06:53 RBC (3.80-5.40) m/uL MCV (80.0-100.0) fL Lymphocytes # (1.0-4.8) k/uL Sodium (137-145) mmol/L Chloride (98-107) mmol/L BUN (7-17) mg/dL Creatinine (0.52-1.04) mg/dL Glucose (74-99) mg/dL POC Glucose (mg/dL) 117 H (75-99) mg/dL AST (14-36) U/L Alkaline Phosphatase (38-126) U/L Urine Appearance (Clear) Urine Protein (Negative) Urine Blood (Negative) Ur Leukocyte Esterase (Negative) Urine RBC (0-5) /hpf Urine WBC (0-5) /hpf Ur Squamous Epith Cells (0-4) /hpf Urine Bacteria (None) /hpf Urine Mucus (None) /hpf Microbiology - Last 24 Hours (Table) 01/12/20 16:21 Urine Culture - Preliminary Urine,Voided Thrombosis Risk Factor Assmnt - Choose All That Apply Any of the Below Risk Factors Present?: Yes Each Factor Represents 1 point: Obesity (BMI >25) Each Risk Factor Represents 2 Points: Age 61-74 years, Patient confined to bed Thrombosis Risk Factor Assessment Total Risk Factor Score: 5 Thrombosis Risk Factor Assessment Level: High Risk Assessment and Plan Plan: 1. Urinary tract infection. Urine culture from 12/31 showed E. coli, repeat urine culture pending, will resume on IV Zosyn, infectious disease on consult. 2. Metabolic encephalopathy secondary to urinary tract infection, will treat UTI, confusion is better today 3. End-stage renal disease on hemodialysis Monday and Monday, she is due for dialysis tomorrow nephrology on consult. 4. Chronic diastolic heart failure. Continue hemodialysis. Continue home dose of Lasix at 80 mg twice daily as well as metoprolol 50 mg Monday, and metolazone 5 mg twice a day 5. History of aortic stenosis status post TAVR. 6. Hypertension cardiovascular disease. Continue amiodarone 100 mg daily and metoprolol. 7. Paroxysmal atrial fibrillation. Continue amiodarone 100 mg once daily and metoprolol 8. History of myocardial infarction and coronary artery disease status post LAD stent in July 2017 and left circumflex in August 2017. Continue Toprol-XL 50 mg once daily, and Plavix 9. Diabetes mellitus type 2, insulin requiring. Continue insulin sliding scale. 10. GERD continue Protonix. 9. History of hyperlipidemia continue Zetia 10mg daily 10. Diabetic peripheral neuropathy continue gabapentin 300 mg twice daily. 11. Recurrent depression. Continue Cymbalta 60 mg orally once daily 13. DVT prophylaxis. Continue bilateral knee-high TERRIE hose and SCDs 14. GI prophylaxis continue Protonix. The above impression and plan of care have been discussed and directed by signing physician. Jossie Negron nurse practitioner acting as scribe for signing physician.
[2020-01-13 12:10] LABS: Glucose,Whole Blood 85 mg/dL (75-99)
[2020-01-13 17:35] LABS: Glucose,Whole Blood 142 mg/dL (75-99)
--- NOTE | 2020-01-13 18:37 | CONS ---
CONSULTATION REASON FOR CONSULT: End-stage renal disease. HISTORY OF PRESENT ILLNESS: Patient is a 74-year-old female with end-stage renal disease, on hemodialysis on a Monday, , Monday schedule. Patient was admitted to the hospital with complaints of weakness and some abdominal discomfort and urinary symptoms. Patient has had urinary tract infections previously. Her current UA shows WBCs more than 182. Patient denies any chest pains or shortness of breath. She did not have any fever on admission. Blood pressure was not low. PAST MEDICAL HISTORY: End-stage renal disease, peripheral vascular disease, coronary artery disease, history of atrial fibrillation and MT, history of diastolic dysfunction, aortic stenosis status post TAVR in 2018. The patient was treated for urinary tract infections as outpatient, but her culture showed resistance to Bactrim and Cipro. PAST SURGICAL HISTORY: Back surgery, cholecystectomy, cardiac catheterization, coronary stent placement, hysterectomy, AV fistula, cataract surgery, bilateral carpal tunnel release, TAVR 2018, PTBA left leg. SOCIAL HISTORY: Negative for smoking, drug abuse or alcohol abuse. MEDICATIONS: Medications prior to admission included Cymbalta, Pacerone, Colace, Zetia, Neurontin, omeprazole, vitamin D3, iron, magnesium, Plavix, midodrine, Tylenol, Zaroxolyn, Tums, Lasix, insulin, Toprol, fish oil, Renvela, Cleocin. ALLERGIES: Include KUSHAL INHIBITORS AND ANGIOTENSIN RECEPTOR BLOCKERS WHICH CAUSE SWELLING. KEFLEX CAUSES RASH AND HIVES AND STATINS CAUSE SEVERE MUSCLE ACHES; DARVON CAUSES HALLUCINATIONS. REVIEW OF SYSTEMS: As per HPI. Other systems negative. EXAMINATION: Patient is comfortable, awake, not in any acute distress. Alert and oriented x3. Blood pressure is 160/71, heart rate 84 per minute. She is afebrile. Examination of the heart S1, S2. Examination of the lungs, bilateral breath sounds are heard. Abdomen is soft, obese, nontender. Examination of lower extremities shows no evidence of edema. FURNITURE UPHOLSTERER exam grossly intact. LABS: Show sodium 136, potassium 4.3, chloride 94, BUN 43, creatinine 5.1, hemoglobin 11.6 g/dL. UA shows 2+ protein, WBCs more than 182. Urine culture is pending. ASSESSMENT: 1. End-stage renal disease, on hemodialysis on a Monday, , Monday schedule. We will arrange for hemodialysis in a.m. 2. Hypertension with chronic kidney disease. 3. Urinary tract infection with failed outpatient oral treatment, maintained on Zosyn, currently. 4. Chronic kidney disease mineral bone disorder maintained on Renvela. PLAN: DC oral iron. The patient receives IV iron if needed at the dialysis unit. We will plan for hemodialysis in a.m. Continue with IV antibiotics and await Infectious Disease input. Thank you for this consultation. We will continue to follow the patient with you during her hospitalization. MMODL / IJN: [id number] /
[2020-01-13] MEDS: SODIUM CHLORIDE 0.9% 1,000 ML IV SCH (19:09)
[2020-01-13] MEDS: KETOROLAC 15 MG/ML 1 ML VIAL IVP PRN (19:48)
[2020-01-13 20:17] LABS: Glucose,Whole Blood 153 mg/dL (75-99)
--- NOTE | 2020-01-13 22:21 | P.CONS ---
History of Present Illness - Reason for Consult Consult date: 01/13/20 Resistant Urinary tract infection Requesting physician: Neville Robertson - Chief Complaint Confusion and lower abdominal pain x few days - History of Present Illness Patient is 74-year-old female with a past medical history significant for end-stage disease on hemodialysis and history of coronary disease apparently the patient has been treated in outpatient setting for UTI with multiple antibiotic therapy including Bactrim Cipro and clindamycin and apparently the patient did have a urine culture done on December 31 with additional E. coli that was resistant to Bactrim and Cipro patient has brought into the ER at [facility] yesterday for evaluation of mild confusion. Patient symptom has been going on for a day or 2 patient is also complaining of some lower abdominal pain, mostly lower abdominal suprapubic area more of a dull aching 3-4 out of 10 and no radiation patient did have some nausea but no vomiting did have dark cloudy urine no hematuria or flank pain patient did not have any fever on presentation to the hospital she did have a positive UA patient was started on Zosyn admitted to the hospital infectious disease was consulted for further management of antibiotic therapy Review of Systems Positive point has been mentioned in the HPI rest of the systems are negative Past Medical History Past Medical History: Atrial Fibrillation, Coronary Artery Disease (CAD), Heart Failure, Diabetes Mellitus, Dialysis, GERD/Reflux, GI Bleed, Hyperlipidemia, Hypertension, Myocardial Infarction ([place]), Pneumonia, Renal Disease, Sleep Apnea/CPAP/BIPAP, Vascular Disorder Additional Past Medical History / Comment(s): HEMODIALYSIS- MONDAY,MONDAY,AND MONDAY . USES WHEELCHAIR-TRANSFERS ONLY -CAN TAKE A COUPLE OF STEPS, hx. GI bleed >year ago, SOB w/exertion, uses oxygen prn @2l, see Dr Combs [facility] & [facility]. TAVR Last Myocardial Infarction Date:: 2015 History of Any Multi-Drug Resistant Organisms: MRSA Year Discovered:: 02/09/18 MDRO Source:: LT THIRD TOE Past Surgical History: Back Surgery, Cholecystectomy, Heart Catheterization, Heart Catheterization With Stent, Hysterectomy, Orthopedic Surgery Additional Past Surgical History / Comment(s): PCI with stents, several back surgeries-lumbar, bilateral carpal tunnel releases, bilateral cataract removals, port then fistula for hemodialysis. PTBA to left leg 03-02-18. TAVR in [address] Rock at [facility] Past Anesthesia/Blood Transfusion Reactions: Previous Problems w/ Anesthesia Additional Past Anesthesia/Blood Transfusion Reaction / Comm: Confusion that resolved. Date of Last Stent Placement:: 10/06/17 Past Psychological History: No Psychological Hx Reported Additional Psychological History / Comment(s): Single but lives with her daughter who is her caregiver Smoking Status: Never smoker Past Alcohol Use History: None Reported Additional Past Alcohol Use History / Comment(s): Patient had exposure to secondhand smoke with her . Past Drug Use History: None Reported - Past Family History Father Additional Family Medical History / Comment(s): Brain aneurysm ; age 72 Sister(s) Family Medical History: Hypertension Additional Family Medical History / Comment(s): Aortic stenosis; mitral valve disease Mother Family Medical History: No Reported History, AFIB, CVA/TIA, Hypertension Additional Family Medical History / Comment(s): mother age 83 Daughter(s) Family Medical History: Asthma Son(s) Family Medical History: Asthma Medications and Allergies Home Medications Medication Instructions Recorded Confirmed Type DULoxetine HCL [Cymbalta] 60 mg PO DAILY 08/04/14 01/12/20 History Amiodarone HCl [Pacerone] 100 mg PO DAILY 11/22/15 01/12/20 History Docusate [Colace] 100 mg PO BID 11/22/15 01/12/20 History Ezetimibe [Zetia] 10 mg PO DAILY 11/22/15 01/12/20 History Gabapentin [Neurontin] 300 mg PO BID #60 capsule 11/27/15 01/12/20 Rx Omeprazole 20 mg PO DAILY 12/25/16 01/12/20 History Cholecalciferol (Vitamin D3) 2,000 unit PO DAILY 12/31/16 01/12/20 History [Vitamin D3] Ferrous Sulfate [Iron (65 MG 325 mg PO DAILY 05/05/17 01/12/20 History Elemental)] Magnesium Oxide [Mag-Ox] 250 mg PO DAILY 05/05/17 01/12/20 History Clopidogrel [Plavix] 75 mg PO DAILY #30 tab 08/21/17 01/12/20 Rx Midodrine HCl [ProAmatine] 10 mg PO DIRECTED PRN 10/23/17 01/12/20 History Acetaminophen Tab [Tylenol] 650 mg PO Q4H 11/09/17 01/12/20 History Aspirin [Adult Low Dose Aspirin EC] 81 mg PO DAILY 03/02/18 01/12/20 History metOLazone [Zaroxolyn] 5 mg PO BID 02/11/19 01/12/20 History Calcium Carbonate [Tums] 500 - 1,000 mg PO TID PRN 01/12/20 01/12/20 History Cranberry 4200mg 4,200 mg PO BID 01/12/20 01/12/20 History Furosemide [Lasix] 80 mg PO BID 01/12/20 01/12/20 History Insulin Aspart [NovoLOG Flexpen] 12 units SQ AC-BRKFST 01/12/20 01/12/20 History Insulin Aspart [NovoLOG Flexpen] 14 units SQ AC-BID@1200,1800 01/12/20 01/12/20 History Insulin Glargine,Hum.rec.anlog 25 units SQ BID 01/12/20 01/12/20 History [Lantus Solostar] L.acidoph,Paracasei, B.lactis 1 cap PO DAILY 01/12/20 01/12/20 History [Probiotic] Lactulose [Constulose] 30 gm PO BID PRN 01/12/20 01/12/20 History Metoprolol Succinate (ER) [Toprol 50 mg PO SUMOWEFR 01/12/20 01/12/20 History Xl] [place]-3 Fatty Acids/Fish Oil [Fish 1 cap PO MOWEFR 01/12/20 01/12/20 History Oil 1,000 mg Softgel] Sevelamer [Renvela] 800 mg PO AC-BRKFST 01/12/20 01/12/20 History clindamycin HCL [Cleocin] 300 mg PO TID 01/12/20 01/12/20 History Allergies Allergy/AdvReac Type Severity Reaction Status Date / Time KUSHAL Inhibitors Allergy Swelling Verified 01/12/20 17:52 ARB-Angiotensin Receptor Allergy Swelling Verified 01/12/20 17:52 Antagonist cephalexin monohydrate Allergy Rash/Hives, Verified 01/12/20 17:52 [From Keflex] MOUTH SWELLING propoxyphene HCl AdvReac Hallucinati Verified 01/12/20 17:52 [From Darvon] ons Nirgbjc-Uzv-Zgb Reductase AdvReac Myalgia Verified 01/12/20 17:52 Inhibitor Physical Exam Vitals: Vital Signs Temp Pulse Pulse Resp BP BP Pulse Ox 01/13/20 07:00 97.8 F 84 17 160/71 90 L 01/13/20 01:25 97.5 F L 77 18 131/51 94 L 01/12/20 20:19 98.4 F 84 16 165/62 96 01/12/20 19:10 98.3 F 86 18 147/61 95 01/12/20 19:00 86 18 147/61 95 01/12/20 18:00 18 95 01/12/20 17:00 86 18 143/59 95 01/12/20 16:45 86 18 141/60 95 01/12/20 15:42 98.3 F 91 18 147/71 93 L Intake and Output 01/12/20 01/13/20 01/13/20 22:59 06:59 14:59 Intake Total 380 460 Balance 380 460 Intake: Intake, IV Titration 80 160 Amount Sodium Chloride 0.9% 1, 80 160 000 ml @ 20 mls/hr IV . Q24H [facility] Rx#:[id number] Oral 300 300 Other: Voiding Method Incontinent Bedside Commode # Voids 1 Weight 88 kg GENERAL DESCRIPTION: Elderly female lying in bed, no distress. No tachypnea or accessory muscle of respiration use. HEENT: Shows Pallor , no scleral icterus. Oral mucous membrane is dry. No pharyngeal erythema or thrush NECK: Trachea central, no thyromegaly. LUNGS: Unlabored breathing. Clear to auscultation anteriorly. No wheeze or crackle. HEART: S1, S2, regular rate and rhythm. No loud murmur ABDOMEN: Soft, no tenderness , guarding or rigidity, no organomegaly EXTREMITIES: No edema of feet. SKIN: No rash, no masses palpable. NEUROLOGICAL: The patient is awake, alert, oriented x2, mood and affect normal. Results CBC & Chem 7: 01/12/20 16:21 01/12/20 16:21 Labs: Abnormal Lab Results - Last 24 Hours (Table) 01/12/20 01/12/20 01/12/20 Range/Units 16:21 16:21 16:21 RBC 3.49 L (3.80-5.40) m/uL MCV 104.5 H (80.0-100.0) fL Lymphocytes # 0.9 L (1.0-4.8) k/uL Sodium 136 L (137-145) mmol/L Chloride 94 L (98-107) mmol/L BUN 43 H (7-17) mg/dL Creatinine 5.15 H (0.52-1.04) mg/dL Glucose 203 H (74-99) mg/dL POC Glucose (mg/dL) (75-99) mg/dL AST 39 H (14-36) U/L Alkaline Phosphatase 169 H (38-126) U/L Urine Appearance Turbid H (Clear) Urine Protein 2+ H (Negative) Urine Blood Moderate H (Negative) Ur Leukocyte Esterase Large H (Negative) Urine RBC 22 H (0-5) /hpf Urine WBC >182 H (0-5) /hpf Ur Squamous Epith Cells 10 H (0-4) /hpf Urine Bacteria Many H (None) /hpf Urine Mucus Occasional H (None) /hpf 01/13/20 Range/Units 06:53 RBC (3.80-5.40) m/uL MCV (80.0-100.0) fL Lymphocytes # (1.0-4.8) k/uL Sodium (137-145) mmol/L Chloride (98-107) mmol/L BUN (7-17) mg/dL Creatinine (0.52-1.04) mg/dL Glucose (74-99) mg/dL POC Glucose (mg/dL) 117 H (75-99) mg/dL AST (14-36) U/L Alkaline Phosphatase (38-126) U/L Urine Appearance (Clear) Urine Protein (Negative) Urine Blood (Negative) Ur Leukocyte Esterase (Negative) Urine RBC (0-5) /hpf Urine WBC (0-5) /hpf Ur Squamous Epith Cells (0-4) /hpf Urine Bacteria (None) /hpf Urine Mucus (None) /hpf Microbiology - Last 24 Hours (Table) 01/12/20 16:21 Urine Culture - Preliminary Urine,Voided Assessment and Plan Assessment: 1- patient is a 74-year-old female presented to hospital with confusion in this patient who did have a history of renal failure on hemodialysis however still makes urine did have some lower abdominal/suprapubic pain significantly positive UA with concern for symptomatic treatment infection recently has failed outpatient oral antibiotic therapy (1) Failure of outpatient treatment Current Visit: Yes Status: Acute Code(s): Z78.9 - OTHER SPECIFIED HEALTH STATUS SNOMED Code(s): 846270239 (2) UTI (urinary tract infection) Current Visit: Yes Status: Acute Code(s): N39.0 - URINARY TRACT INFECTION, SITE NOT SPECIFIED SNOMED Code(s): 48654392 Plan: 1- Zosyn 3.375 grams every 12 hours 2- we will try to get outpatient cultures has apparently not done at [facility] We will follow on clinical condition and cultures to further adjust medication if needed Thank you for this consultation will follow this patient with you Time with Patient: Greater than 30
[2020-01-13] MEDS ORDERED: NON FORMULARY DRUG (Omega-3 Fatty Acids/Fish Oil [Fish Oil 1,000 Mg Softgel] 1 EACH Capsul PO SCH (22:58)
[2020-01-14] MEDS: ACETAMINOPHEN TAB 325 MG TAB PO SCH ×6 (03:43→23:48)
[2020-01-14 04:43] LABS: HCT 30.2 % (34.0-46.0); Hypochromasia Moderate; MCH 33.5 pg (25.0-35.0); MCHC 31.1 g/dL (31.0-37.0); MCV 107.5 fL (80.0-100.0); Macrocytosis Moderate; Mean Platelet Volume 8.5; Platelet Count 166 k/uL (150-450); RBC 2.81 m/uL (3.80-5.40); RDW 14.4 % (11.5-15.5); WBC 8.9 k/uL (3.8-10.6)
[2020-01-14] MEDS: KETOROLAC 15 MG/ML 1 ML VIAL IVP PRN ×2 (04:47→23:42)
[2020-01-14 04:57] LABS: HGB 9.4 gm/dL (11.4-16.0)
[2020-01-14] MEDS ORDERED: MIDODRINE 5 MG TAB PO PRN (06:00)
[2020-01-14 06:53] LABS: Glucose,Whole Blood 114 mg/dL (75-99)
[2020-01-14] MEDS: GABAPENTIN 300 MG CAP PO SCH ×2 (08:09→21:24)
[2020-01-14] MEDS: SEVELAMER 800 MG TAB PO SCH (08:09)
[2020-01-14] MEDS: FUROSEMIDE 80 MG TAB PO SCH ×2 (08:09→21:25)
[2020-01-14] MEDS: metOLazone 5 MG TAB PO SCH ×2 (08:09→21:27)
[2020-01-14] MEDS: INSULIN ASPART (NovoLOG) 100 UNIT/ML VIAL SQ SCH ×3 (08:10→17:42)
[2020-01-14] MEDS: PIPERACILLIN-TAZOBACTAM 3.375 GM in SODIUM CHLORIDE 0.9% 100 ML IVPB SCH ×2 (08:10→21:33)
[2020-01-14] MEDS: PANTOPRAZOLE 40 MG/10 ML VIAL IV SCH (08:10)
[2020-01-14] MEDS: INSULIN DETEMIR (LEVEMIR) 100 UNIT/ML SYR SQ SCH ×2 (08:10→21:27)
[2020-01-14] MEDS: DOCUSATE 100 MG CAP PO SCH ×2 (08:11→21:24)
[2020-01-14 10:13] LABS: African American GFR (CKD) 6.5 (60.0-200.0); Albumin 3.6 g/dL (3.80-4.90); Albumin/Globulin Ratio 1.71 (1.60-3.17); Anion Gap 19.2 mmol/L (4.00-12.00); BUN/Creat Ratio 10.3 Ratio (12.00-20.00); Calcium 8.4 mg/dL (8.7-10.3); Carbon Dioxide 19.8 mmol/L (21.6-31.8); Globulin 2.1 g/dL (1.6-3.3); Non-African American GFR(CKD) 5.6 (60.0-200.0); Potassium 4.9 mmol/L (3.5-5.5); Total Bilirubin 0.2 mg/dL (0.2-1.2); Total Protein 5.7 g/dL (6.2-8.2)
[2020-01-14 11:30] LABS: Glucose,Whole Blood 101 mg/dL (75-99)
--- NOTE | 2020-01-14 15:06 | P.PN ---
Subjective Progress Note Date: 01/14/20 This is a 74-year-old female patient of Dr. Farias with past medical history of proximal atrial fibrillation, coronary artery disease status post [place], chronic diastolic heart failure, diabetes, hyperlipidemia, hypertension, hypertensive cardiovascular disease, end-stage renal disease on hemodialysis, aortic stenosis status post TAVR in 2018. Patient reports she was being treated for urinary tract infection by the nurse practitioner at Dr. Botello's office for the last month. Patient reports she failed on Bactrim, Cipro, then clindamycin. The last urine culture was done on 12/31 showed E. coli with multiple susceptibilities, unfortunately resistant to Bactrim and Cipro. Patient was brought to the emergency department where she is noted to have mild confusion. She was started on IV Zosyn. Urine culture is pending, laboratory values reveal WBC 7.5, hemoglobin 11.6, hematocrit 36.5, sodium 136, potassium 4.3, BUN 43, creatinine 5.1, UA was positive for infection. Patient reports she still does make urine, only urinates once per day and maybe 100-200 mL's. Patient will be due for dialysis tomorrow, nephrology is on consult as well as infectious disease. 01/13: Patient states that she is feeling a little bit better but not a whole lot from yesterday. She states she has urinated a couple times since yesterday. Blood culture showing no growth at 24 hours and urine culture is gram-negative bacilli. Patient has been afebrile, heart rate 82, blood pressure 146/65, pulse ox 92% on CPAP. Repeat lab work reveals W BC 0.9, hemoglobin 9.4. CO2 is 19.8, anion gap 19.2, BUN 69 and creatinine 6.7. Blood sugars running between 92 and 153. Alkaline phosphatase 144. Patient has been seen by nephrology and iron oral discontinued. Patient receives IV iron at the dialysis unit. She is sched uled for hemodialysis today. Patient has been seen by Dr. Obrien with recommendations for Zosyn. Review of Systems CONSTITUTIONAL: Well-developed no acute respiratory distress. Laying in bed no distress or pain. Denies fever EYES: No icterus sclerae, no conjunctivitis. EARS, NOSE, MOUTH, THROAT, and FACE: No sore throat, lymphadenopathy, carotid bruits or deformity. RESPIRATORY: No SOB cough or wheezes. CARDIOVASCULAR: No CP, Palpitation, PND, Orthopnea, or angina. GASTROINTESTINAL: No further rectal bleed today still having mild abdominal discomfort. GENITOURINARY: Still on hemodialysis doesn't make much urine. INTEGUMENT/BREAST: Negative for any muscular injury with mild osteoarthritis.. HEMATOLOGIC/LYMPHATIC: Negative for bleed or purpura. MUSCULOSKELTAL: Negative for Myalgia or arthralgia. NEURLOGICAL: Mild confusion no syncope no dizziness. BEHAVIORAL/PSYCH: Negative. ENDOCRINE: Negative. Physical Examination Gen: This is a 74-year-old female. She is resting in bed and appears to be comfortable and in no acute distress. HEENT: Head is atraumatic, normocephalic. Pupils equal, round. Sclerae is anicte gonzalo. NECK: Supple. No JVD. No lymphadenopathy. No thyromegaly. LUNGS: Clear to auscultation. No wheezes or rhonchi. No intercostal retractions. HEART: Regular rate and rhythm. Systolic murmur. ABDOMEN: Soft. Bowel sounds are present. No masses. No tenderness. EXTREMITIES: No pedal edema. No calf tenderness. NEUROLOGICAL: Patient is awake, alert and oriented x3. Cranial nerves 2 through 12 are grossly intact. Assessment and Plan 1. Acute urinary tract infection, failed outpatient treatment. Urine culture from 12/31 showed E. coli, repeat urine culture pending, will resume on IV Zosyn, infectious disease on consult appreciated. 2. Metabolic encephalopathy secondary to urinary tract infection, will treat UTI, resolved. 3. End-stage renal disease on hemodialysis Monday and Monday, she is due for dialysis tomorrow nephrology on consult. 3. Chronic diastolic heart failure. Continue hemodialysis. Continue home dose of Lasix at 80 mg twice daily as well as metoprolol 50 mg Monday, and metolazone 5 mg twice a day 4. History of aortic stenosis status post TAVR. 5. Hypertension cardiovascular disease. Continue amiodarone 100 mg daily and metoprolol. 6. Paroxysmal atrial fibrillation. Continue amiodarone 100 mg once daily and metoprolol 7. History of myocardial infarction and coronary artery disease status post LAD stent in July 2017 and left circumflex in August 2017. Continue Toprol-XL 50 mg once daily, and Plavix 8. Diabetes mellitus type 2, insulin requiring. Continue insulin sliding scale. 9. GERD continue Protonix. 10. History of hyperlipidemia continue Zetia 10mg daily 11. Diabetic peripheral neuropathy continue gabapentin 300 mg twice daily. 12. Recurrent depression. Continue Cymbalta 60 mg orally once daily 13. DVT prophylaxis. Continue bilateral knee-high TERRIE hose and SCDs 14. GI prophylaxis continue Protonix. Acute 15. Obstructive sleep apnea on CPAP. 16. End-stage renal failure on hemodialysis. Patient scheduled for dialysis today. Patient is normally on Monday schedule. Discharge plan: Return home Impression and plan of care have been directed as dictated by the signing physician. Jessenia Gonzalez nurse practitioner acting as scribe for signing physician. Objective - Vital Signs Vital signs: Vital Signs Temp 98.4 F 01/14/20 04:44 Pulse 72 01/14/20 04:44 Resp 20 01/14/20 04:44 BP 171/69 01/14/20 04:44 Pulse Ox 95 01/14/20 04:44 Intake & Output 01/13/20 01/14/20 01/14/20 18:59 06:59 18:59 Intake Total 1620 Balance 1620 Intake: Intake, IV Titration 440 Amount Piperacillin-Tazobactam 3 200 .375 gm In Sodium Chloride 0.9% 100 ml @ 25 mls/hr IVPB Q12HR [facility] Rx #:[id number] Sodium Chloride 0.9% 1, 240 000 ml @ 20 mls/hr IV . Q24H [facility] Rx#:[id number] Oral 1180 Other: Voiding Method Bedside Commode Bedside Commode # Voids 1 - Labs CBC & Chem 7: 01/14/20 03:53 01/14/20 03:53 Labs: Abnormal Lab Results - Last 24 Hours (Table) 01/13/20 01/13/20 01/14/20 Range/Units 17:27 20:16 03:53 RBC 2.81 L (3.80-5.40) m/uL Hgb 9.4 L D (11.4-16.0) gm/dL Hct 30.2 L (34.0-46.0) % MCV 107.5 H (80.0-100.0) fL POC Glucose (mg/dL) 142 H 153 H (75-99) mg/dL 01/14/20 Range/Units 06:52 RBC (3.80-5.40) m/uL Hgb (11.4-16.0) gm/dL Hct (34.0-46.0) % MCV (80.0-100.0) fL POC Glucose (mg/dL) 114 H (75-99) mg/dL Microbiology - Last 24 Hours (Table) 01/12/20 16:21 Urine Culture - Preliminary Urine,Voided Gram Neg Bacilli 01/12/20 16:21 Blood Culture - Preliminary Blood No Growth after 24 hours
--- NOTE | 2020-01-14 16:07 | PN ---
PROGRESS NOTE DATE OF SERVICE: 01/14/2020 REASON FOR FOLLOWUP: Urinary tract infection. INTERVAL HISTORY: The patient is currently afebrile. The patient is feeling better, breathing comfortably. Abdominal pain has slightly decreased. No nausea, no vomiting or any diarrhea. PHYSICAL EXAMINATION: Blood pressure 171/69 with a pulse of 72, temperature 98.4. She is 95% on CPAP. General description is an elderly female lying in bed in no distress. RESPIRATORY SYSTEM: Unlabored breathing. Clear to auscultation anteriorly. HEART: S1, S2. Regular rate and rhythm. ABDOMEN: Soft. No tenderness. LABS: Hemoglobin 9.5, white count 8.9, creatinine 6.7. Urine showing Gram-negative bacilli. Blood culture negative. DIAGNOSTIC IMPRESSION AND PLAN: Patient with Gram-negative urinary tract infection, apparently failing outpatient oral antibiotic therapy. Patient is currently covered with Zosyn; to continue while waiting for the culture to finalize. Continue with supportive care. MMODL / IJN: [id number] /
[2020-01-14 17:27] LABS: Glucose,Whole Blood 113 mg/dL (75-99)
[2020-01-14] MEDS: SODIUM CHLORIDE 0.9% 1,000 ML IV SCH (17:45)
--- NOTE | 2020-01-14 18:16 | PN ---
PROGRESS NOTE Patient is seen for followup for end-stage renal disease. She was admitted to the hospital with abdominal discomfort and urinary tract infection. Urine culture has grown E coli. Patient is scheduled for hemodialysis today. On examination, blood pressure was 171/69, heart rate 72 per minute. She is afebrile. EXAMINATION OF THE HEART: S1 and S2. EXAMINATION OF LUNGS: Bilateral breath sounds are heard. ABDOMEN: Soft, obese, non-tender. Examination of lower extremities shows no significant edema. [employer]GRAM[employer] exam is grossly intact. Labs show sodium of 135, potassium 4.9, BUN of 69, and hemoglobin 9.4 g/dL. White cell count 8.9. ASSESSMENT: 1. End-stage renal disease, on hemodialysis on a Monday, , Monday schedule. Patient will be dialyzed today. 2. Urinary tract infection. Urine culture grew E coli. Patient is maintained on antibiotics in the form of Zosyn. 3. Chronic kidney disease mineral bone disorder. 4. Coronary artery disease. 5. Valvular heart disease, status post transcatheter aortic valve replacement procedure at [facility]. PLAN: Hemodialysis today; goal UF of about 3 to 3.5 L. MMODL / IJN: [id number] /
[2020-01-14 20:41] LABS: Glucose,Whole Blood 106 mg/dL (75-99)
[2020-01-14] MEDS: CHOLECALCIFEROL 1,000 UNIT TAB PO SCH (21:23)
[2020-01-14] MEDS: ASPIRIN 81 MG PO SCH (21:23)
[2020-01-14] MEDS: DULoxetine HCL 60 MG CAPSULE.DR PO SCH (21:24)
[2020-01-14] MEDS: CLOPIDOGREL 75 MG TAB PO SCH (21:24)
[2020-01-14] MEDS: EZETIMIBE 10 MG TAB PO SCH (21:26)
[2020-01-14] MEDS: AMIODARONE 100 MG TAB PO SCH (21:26)
[2020-01-15] MEDS: ACETAMINOPHEN TAB 325 MG TAB PO SCH ×3 (03:46→12:27)
[2020-01-15 05:01] VITALS: RESP 18
[2020-01-15 07:12] LABS: Glucose,Whole Blood 157 mg/dL (75-99)
[2020-01-15] MEDS: INSULIN ASPART (NovoLOG) 100 UNIT/ML VIAL SQ SCH ×2 (08:03→12:29)
[2020-01-15] MEDS: INSULIN DETEMIR (LEVEMIR) 100 UNIT/ML SYR SQ SCH (08:04)
[2020-01-15] MEDS: METOPROLOL SUCCINATE (ER) 50 MG TAB.ER.24H PO SCH (08:05)
[2020-01-15] MEDS: CLOPIDOGREL 75 MG TAB PO SCH (08:05)
[2020-01-15] MEDS: DULoxetine HCL 60 MG CAPSULE.DR PO SCH (08:05)
[2020-01-15] MEDS: AMIODARONE 100 MG TAB PO SCH (08:05)
[2020-01-15] MEDS: DOCUSATE 100 MG CAP PO SCH (08:05)
[2020-01-15] MEDS: ASPIRIN 81 MG PO SCH (08:05)
[2020-01-15] MEDS: FUROSEMIDE 80 MG TAB PO SCH (08:05)
[2020-01-15] MEDS: GABAPENTIN 300 MG CAP PO SCH (08:05)
[2020-01-15] MEDS: CHOLECALCIFEROL 1,000 UNIT TAB PO SCH (08:05)
[2020-01-15] MEDS: SEVELAMER 800 MG TAB PO SCH (08:05)
[2020-01-15] MEDS: EZETIMIBE 10 MG TAB PO SCH (08:06)
[2020-01-15] MEDS: metOLazone 5 MG TAB PO SCH (08:06)
[2020-01-15] MEDS: PANTOPRAZOLE 40 MG/10 ML VIAL IV SCH (08:06)
[2020-01-15] MEDS: PIPERACILLIN-TAZOBACTAM 3.375 GM in SODIUM CHLORIDE 0.9% 100 ML IVPB SCH (08:08)
--- NOTE | 2020-01-15 08:21 | P.DS ---
Providers Date of admission: 01/12/20 18:14 Expected date of discharge: 01/15/20 Attending physician: Neville Robertson Consults: 01/12/20 18:14 Consult Physician Stat Consulting Provider: Margarette Obrien Consult Reason/Comments: Resistent uti, failure op tx Do you want consulting provider notified?: Yes Consult Physician Stat Consulting Provider: Mariam Botello Consult Reason/Comments: uti, dialysis Do you want consulting provider notified?: Yes Primary care physician: Stevenson Farias [facility] Course: This is a 74-year-old female patient of Dr. Farias with past medical history of pro ximal atrial fibrillation, coronary artery disease status post DC, chronic diastolic heart failure, diabetes, hyperlipidemia, hypertension, hypertensive cardiovascular disease, end-stage renal disease on hemodialysis, aortic stenosis status post TAVR in 2018. Patient reports she was being treated for urinary tract infection by the nurse practitioner at Dr. Botello's office for the last month. Patient reports she failed on Bactrim, Cipro, then clindamycin. The last urine culture was done on 12/31 showed E. coli with multiple susceptibilities, unfortunately resistant to Bactrim and Cipro. Patient was brought to the emergency department where she is noted to have mild confusion. She was started on IV Zosyn. Urine culture is pending, laboratory values reveal WBC 7.5, hemoglobin 11.6, hematocrit 36.5, sodium 136, potassium 4.3, BUN 43, creatinine 5.1, UA was positive for infection. Patient reports she still does make urine, only urinates once per day and maybe 100-200 mL's. Patient will be due for dialysis tomorrow, nephrology is on consult as well as infectious disease. 01/13: Patient states that she is feeling a little bit better but not a whole lot from yesterday. She states she has urinated a couple times since yesterday. Blood culture showing no growth at 24 hours and urine culture is gram-negative bacilli. Patient has been afebrile, heart rate 82, blood pressure 146/65, pulse ox 92% on CPAP. Repeat lab work reveals W BC 0.9, hemoglobin 9.4. CO2 is 19.8, anion gap 19.2, BUN 69 and creatinine 6.7. Blood sugars running between 92 and 153. Alkaline phosphatase 144. Patient has been seen by nephrology and iron oral discontinued. Patient receives IV iron at the dialysis unit. She is scheduled for hemodialysis today. Patient has been seen by Dr. Obrien with frankie mmendations for [place]. 01/14: Patient underwent hemodialysis yesterday and no planned for dialysis today. She is normally Monday. Dr. Botello has cleared the patient for discharge. She does complain of a little shortness of breath. Urine culture is E. coli pansensitive. Discussed case with Dr. Obrien and he is agreeable to Augmentin which has been sent to her pharmacy. Patient will be discharged home today in stable condition. Assessment and Plan 1. Acute urinary tract infection, failed outpatient treatment. 2. Metabolic encephalopathy secondary to urinary tract infection, will treat UTI, resolved. 3. End-stage renal disease on hemodialysis Monday and Monday. 4. Chronic diastolic heart failure. 5. History of aortic stenosis status post TAVR. 6. Hypertension cardiovascular disease. 7. Paroxysmal atrial fibrillation. 8. History of myocardial infarction and coronary artery disease status post LAD stent in July 2017 and left circumflex in August 2017. 9. Diabetes mellitus type 2, insulin requiring. 10. GERD. 11. History of hyperlipidemia. 12. Diabetic peripheral neuropathy. 13. Recurrent depression. 14. Obstructive sleep apnea on CPAP. 16. End-stage renal failure on hemodialysis. Discharge plan: Return home Impression and plan of care have been directed as dictated by the signing physician. Jessenia Gonzalez nurse practitioner acting as scribe for signing physician. Patient Condition at Discharge: Good Plan - Discharge Summary Discharge Rx Participant: No New Discharge Prescriptions: New Amoxic-Pot Clav 500-125 mg [Augmentin 500-125 mg] 1 tab PO DAILY #7 tab Continue DULoxetine HCL [Cymbalta] 60 mg PO DAILY Amiodarone HCl [Pacerone] 100 mg PO DAILY Docusate [Colace] 100 mg PO BID Ezetimibe [Zetia] 10 mg PO DAILY Gabapentin [Neurontin] 300 mg PO BID #60 capsule Omeprazole 20 mg PO DAILY Cholecalciferol (Vitamin D3) [Vitamin D3] 2,000 unit PO DAILY Magnesium Oxide [Mag-Ox] 250 mg PO DAILY Clopidogrel [Plavix] 75 mg PO DAILY #30 tab Midodrine HCl [ProAmatine] 10 mg PO DIRECTED PRN PRN Reason: DIALYSIS,LOW BLOOD PRESSURE Acetaminophen Tab [Tylenol] 650 mg PO Q4H Aspirin [Adult Low Dose Aspirin EC] 81 mg PO DAILY metOLazone [Zaroxolyn] 5 mg PO BID Calcium Carbonate [Tums] 500 - 1,000 mg PO TID PRN PRN Reason: Indigestion [place]-3 Fatty Acids/Fish Oil [Fish Oil 1,000 mg Softgel] 1 cap PO MOWEFR Cranberry 4200mg 4,200 mg PO BID L.acidoph,Paracasei, B.lactis [Probiotic] 1 cap PO DAILY Metoprolol Succinate (ER) [Toprol XL] 50 mg PO SUMOWEFR Insulin Aspart [NovoLOG Flexpen] 14 units SQ AC-BID@1200,1800 Insulin Aspart [NovoLOG Flexpen] 12 units SQ AC-BRKFST Insulin Glargine,Hum.rec.anlog [Lantus Solostar] 25 units SQ BID Sevelamer [Renvela] 800 mg PO AC-BRKFST Lactulose [Constulose] 30 gm PO BID PRN PRN Reason: Constipation Furosemide [Lasix] 80 mg PO BID Discontinued Ferrous Sulfate [Iron (65 MG Elemental)] 325 mg PO DAILY clindamycin HCL [Cleocin] 300 mg PO TID Discharge Medication List DULoxetine HCL [Cymbalta] 60 mg PO DAILY 08/04/14 [History] Amiodarone HCl [Pacerone] 100 mg PO DAILY 11/22/15 [History] Docusate [Colace] 100 mg PO BID 11/22/15 [History] Ezetimibe [Zetia] 10 mg PO DAILY 11/22/15 [History] Gabapentin [Neurontin] 300 mg PO BID #60 capsule 11/27/15 [Rx] Omeprazole 20 mg PO DAILY 12/25/16 [History] Cholecalciferol (Vitamin D3) [Vitamin D3] 2,000 unit PO DAILY 12/31/16 [History] Magnesium Oxide [Mag-Ox] 250 mg PO DAILY 05/05/17 [History] Clopidogrel [Plavix] 75 mg PO DAILY #30 tab 08/21/17 [Rx] Midodrine HCl [ProAmatine] 10 mg PO DIRECTED PRN 10/23/17 [History] Acetaminophen Tab [Tylenol] 650 mg PO Q4H 11/09/17 [History] Aspirin [Adult Low Dose Aspirin EC] 81 mg PO DAILY 03/02/18 [History] metOLazone [Zaroxolyn] 5 mg PO BID 02/11/19 [History] Calcium Carbonate [Tums] 500 - 1,000 mg PO TID PRN 01/12/20 [History] Cranberry 4200mg 4,200 mg PO BID 01/12/20 [History] Furosemide [Lasix] 80 mg PO BID 01/12/20 [History] Insulin Aspart [NovoLOG Flexpen] 12 units SQ AC-BRKFST 01/12/20 [History] Insulin Aspart [NovoLOG Flexpen] 14 units SQ AC-BID@1200,1800 01/12/20 [History] Insulin Glargine,Hum.rec.anlog [Lantus Solostar] 25 units SQ BID 01/12/20 [History] L.acidoph,Paracasei, B.lactis [Probiotic] 1 cap PO DAILY 01/12/20 [History] Lactulose [Constulose] 30 gm PO BID PRN 01/12/20 [History] Metoprolol Succinate (ER) [Toprol XL] 50 mg PO SUMOWEFR 01/12/20 [History] [place]-3 Fatty Acids/Fish Oil [Fish Oil 1,000 mg Softgel] 1 cap PO MOWEFR 01/12/20 [History] Sevelamer [Renvela] 800 mg PO AC-BRKFST 01/12/20 [History] Amoxic-Pot Clav 500-125 mg [Augmentin 500-125 mg] 1 tab PO DAILY #7 tab 01/15/20 [Rx] Follow up Appointment(s)/Referral(s): Stevenson Farias MD [Primary Care Provider] - 1 Week Patient Instructions/Handouts: Urinary Tract Infection in Women (DC)
[2020-01-15 11:35] LABS: Glucose,Whole Blood 311 mg/dL (75-99)
[2020-01-15 11:59] VITALS: BP 153/68; PULSE 83; TEMP 98.2
--- NOTE | 2020-01-15 12:44 | PN ---
PROGRESS NOTE DATE OF SERVICE: 01/15/2020 REASON FOR FOLLOWUP: Urinary tract infection. INTERVAL HISTORY: The patient is currently afebrile. The patient is feeling better. Breathing comfortably. Patient denies having any chest pain. No shortness of breath, no cough. No nausea, no vomiting. Abdominal pain has improved. Did mention the urine was cloudy having been checked by the RN this morning. PHYSICAL EXAMINATION: Blood pressure 150/72 with a pulse of 84, temperature 97.8. She is 93% on room air. General description is an elderly female, lying in bed in no distress. RESPIRATORY SYSTEM: Unlabored breathing, clear to auscultation anteriorly. HEART: S1, S2. Regular rate and rhythm. ABDOMEN: Soft, no tenderness. LABS: Urine has been finalized with E coli sensitive pathogen. DIAGNOSTIC IMPRESSION AND PLAN: Patient with a history of recurrent UTI, failing outpatient oral antibiotic therapy. The patient did grow E. coli on This admission which is sensitive to all antibiotic and will be finished therapy with oral Augmentin as per discussion with the admitting team. Continue supportive care. MMODL / IJN: [id number] /
--- NOTE | 2020-01-15 17:32 | PN ---
PROGRESS NOTE Patient is seen for followup for end-stage renal disease. She was admitted to the hospital with urinary tract infection, currently being followed by Infectious Disease, maintained on antibiotics. Plans are for discharge today. Urine culture grew E coli. Patient received Zosyn in the hospital. She will be discharged on oral Augmentin. Patient tolerated her dialysis very well yesterday. PHYSICAL EXAMINATION: On examination today, blood pressure 153/68, heart rate 83 per minute, she is afebrile. Examination shows patient is euvolemic with no evidence of edema bilateral lower extremities. Abdomen is soft, obese, nontender. PATENT [employer]SECUTION ATTORNEY exam grossly intact. ASSESSMENT: 1. End-stage renal disease, on hemodialysis on a Monday, , Monday schedule. 2. Urinary tract infection. Urine culture grew E coli. Patient will be discharged on Augmentin. 3. CKD mineral bone disorder. 4. Valvular heart disease, status post aortic valve replacement at [facility]. It was a TAVR procedure. PLAN: Followup as outpatient for hemodialysis tomorrow. MMODL / IJN: [id number] /
== END 2020-01-15 16:19 | disposition home or self-care (01) | DRG 689 ==
LOC: EC 15:39 → 4SSUR 18:14 → 6NMEDSUR 01-13 17:02
PROVIDERS: ADMIT Internal Medicine Geriatric Medicine; ATTEND Internal Medicine Geriatric Medicine
PROC: 5A1D70Z Performance of Urinary Filtration, Intermittent, Less than 6 Hours Per Day (ICD-10-PCS; principal; 2020-01-13)
DX: N39.0 Urinary tract infection, site not specified (principal); G93.41 Metabolic encephalopathy; N18.6 End stage renal disease; F33.9 Major depressive disorder, recurrent, unspecified; I50.32 Chronic diastolic (congestive) heart failure; I13.2 Hypertensive heart and chronic kidney disease with heart failure and with stage 5 chronic kidney disease, or end stage renal disease; Z16.29 Resistance to other single specified antibiotic; Z16.23 Resistance to quinolones and fluoroquinolones; I25.10 Atherosclerotic heart disease of native coronary artery without angina pectoris; G47.33 Obstructive sleep apnea (adult) (pediatric); E78.5 Hyperlipidemia, unspecified; E66.9 Obesity, unspecified; K21.9 Gastro-esophageal reflux disease without esophagitis; I48.0 Paroxysmal atrial fibrillation; Z77.22 Contact with and (suspected) exposure to environmental tobacco smoke (acute) (chronic); E11.22 Type 2 diabetes mellitus with diabetic chronic kidney disease; E11.51 Type 2 diabetes mellitus with diabetic peripheral angiopathy without gangrene; E83.89 Other disorders of mineral metabolism; B96.20 Unspecified Escherichia coli [E. coli] as the cause of diseases classified elsewhere; E11.42 Type 2 diabetes mellitus with diabetic polyneuropathy; Z79.82 Long term (current) use of aspirin; Z79.4 Long term (current) use of insulin; Z79.899 Other long term (current) drug therapy; Z79.02 Long term (current) use of antithrombotics/antiplatelets; Z88.1 Allergy status to other antibiotic agents; Z88.8 Allergy status to other drugs, medicaments and biological substances; Z68.35 Body mass index [BMI] 35.0-35.9, adult; Z87.440 Personal history of urinary (tract) infections; Z87.01 Personal history of pneumonia (recurrent); I25.2 Old myocardial infarction; Z86.14 Personal history of Methicillin resistant Staphylococcus aureus infection; Z90.49 Acquired absence of other specified parts of digestive tract; Z95.5 Presence of coronary angioplasty implant and graft; Z90.710 Acquired absence of both cervix and uterus; Z99.2 Dependence on renal dialysis; Z95.2 Presence of prosthetic heart valve; Z98.42 Cataract extraction status, left eye; Z98.41 Cataract extraction status, right eye; Z82.49 Family history of ischemic heart disease and other diseases of the circulatory system; Z82.5 Family history of asthma and other chronic lower respiratory diseases; Z82.3 Family history of stroke
CPT/HCPCS: 36415; 80053; 81001; 83605; 85025; 85027; 85610; 85730; 87040; 87077; 87086; 87186; 90935; 93005; 96361; 96365; 99285

== ENCOUNTER 2020-06-09 09:00 | Inpatient (IN) | payer MEDICARE ==
[2020-06-09] MEDS ORDERED: IPRATROPIUM-ALBUTEROL 3 ML NEB INHALATION STA (09:22)
--- NOTE | 2020-06-09 09:26 | ED ---
General Adult HPI - General Chief complaint: Shortness of Breath Stated complaint: increased SOB Time Seen by Provider: 06/09/20 09:12 Source: patient, family, RN notes reviewed, old records reviewed Mode of arrival: wheelchair Limitations: no limitations - History of Present Illness Initial comments: Patient is a pleasant 74-year-old female presenting to the emergency Department with complaints of difficulty in breathing. Symptoms have progressed with the past few days. Patient has had multiple severe recent problems with urinary tract infection. Patient had culture returned yesterday with Klebsiella and E. coli. Questionable history of COPD. Patient has been using CPAP at home frequently and has been fatigued. Occasional cough.Patient is due today for dialysis. - Related Data Home Medications Medication Instructions Recorded Confirmed DULoxetine HCL [Cymbalta] 60 mg PO DAILY 08/04/14 06/09/20 Amiodarone HCl [Pacerone] 100 mg PO DAILY 11/22/15 06/09/20 Ezetimibe [Zetia] 10 mg PO DAILY 11/22/15 06/09/20 Omeprazole 20 mg PO DAILY 12/25/16 06/09/20 Cholecalciferol (Vitamin D3) 2,000 unit PO DAILY 12/31/16 06/09/20 [Vitamin D3] Magnesium Oxide [Mag-Ox] 250 mg PO DAILY 05/05/17 06/09/20 Midodrine HCl [ProAmatine] 10 mg PO DIRECTED PRN 10/23/17 06/09/20 Aspirin [Adult Low Dose Aspirin EC] 81 mg PO DAILY 03/02/18 06/09/20 metOLazone [Zaroxolyn] 5 mg PO BID 02/11/19 06/09/20 Cranberry 4200mg 4,200 mg PO BID 01/12/20 06/09/20 Furosemide [Lasix] 80 mg PO BID 01/12/20 06/09/20 Insulin Aspart [NovoLOG Flexpen] 10 - 14 units SQ AC-TID 01/12/20 06/09/20 Insulin Glargine,Hum.rec.anlog 25 units SQ BID 01/12/20 06/09/20 [Lantus Solostar] Metoprolol Succinate (ER) [Toprol 50 mg PO DAILY 01/12/20 06/09/20 XL] Sevelamer [Renvela] 800 mg PO AC-BRKFST 01/12/20 06/09/20 Ferrous Sulfate [Feosol] 325 mg PO DAILY 06/09/20 06/09/20 Sulfamethox-Tmp 800-160Mg [Bactrim 1 tab PO Q12HR 06/09/20 06/09/20 DS 800-160 mg] Vitamin C/Biotin [Hair, Skin and 1 tab PO BID 06/09/20 06/09/20 Nails] Previous Rx's Medication Instructions Recorded Gabapentin [Neurontin] 300 mg PO BID #60 capsule 11/27/15 Clopidogrel [Plavix] 75 mg PO DAILY #30 tab 08/21/17 Allergies Allergy/AdvReac Type Severity Reaction Status Date / Time KUSHAL Inhibitors Allergy Swelling Verified 06/09/20 10:29 ARB-Angiotensin Receptor Allergy Swelling Verified 06/09/20 10:29 Antagonist cephalexin monohydrate Allergy Rash/Hives, Verified 06/09/20 10:29 [From Keflex] MOUTH SWELLING propoxyphene HCl AdvReac Hallucinati Verified 06/09/20 10:29 [From Darvon] ons Qvnadqj-Ooi-Tzt Reductase AdvReac Myalgia Verified 06/09/20 10:29 Inhibitor Review of Systems ROS Statement: Those systems with pertinent positive or pertinent negative responses have been documented in the HPI. ROS Other: All systems not noted in ROS Statement are negative. Constitutional: Denies: fever Eyes: Denies: eye pain ENT: Denies: ear pain Respiratory: Reports: cough, dyspnea Cardiovascular: Denies: chest pain Endocrine: Reports: fatigue Gastrointestinal: Reports: other (Decreased appetite). Denies: abdominal pain Genitourinary: Denies: dysuria Musculoskeletal: Denies: back pain Skin: Denies: rash Neurological: Denies: weakness Past Medical History Past Medical History: Atrial Fibrillation, Coronary Artery Disease (CAD), Heart Failure, COPD, Diabetes Mellitus, Dialysis, GERD/Reflux, GI Bleed, Hyperlipidemia, Hypertension, Myocardial Infarction (ND), Pneumonia, Renal Disease, Sleep Apnea/CPAP/BIPAP, Vascular Disorder Additional Past Medical History / Comment(s): HEMODIALYSIS- MONDAY,MONDAY,AND MONDAY . USES WHEELCHAIR-TRANSFERS ONLY -CAN TAKE A COUPLE OF STEPS, hx. GI bleed >year ago, SOB w/exertion, uses oxygen prn @2l, see Dr Combs H & P. TAVR Last Myocardial Infarction Date:: 2015 History of Any Multi-Drug Resistant Organisms: MRSA Date of last positivie culture/infection: 02/09/18 MDRO Source:: LT THIRD TOE Past Surgical History: Back Surgery, Cholecystectomy, Heart Catheterization, Heart Catheterization With Stent, Hysterectomy, Orthopedic Surgery Additional Past Surgical History / Comment(s): PCI with stents, several back surgeries-lumbar, bilateral carpal tunnel releases, bilateral cataract removals, port then fistula for hemodialysis. PTBA to left leg 03-02-18. TAVR [facility] [address] Rock at [facility] Past Anesthesia/Blood Transfusion Reactions: Previous Problems w/ Anesthesia Additional Past Anesthesia/Blood Transfusion Reaction / Comment(s): Confusion that resolved. Date of Last Stent Placement:: 10/06/17 Past Psychological History: No Psychological Hx Reported Smoking Status: Never smoker Past Alcohol Use History: None Reported Past Drug Use History: None Reported - Past Family History Father Additional Family Medical History / Comment(s): Brain aneurysm ; age 72 Sister(s) Family Medical History: Hypertension Additional Family Medical History / Comment(s): Aortic stenosis; mitral valve disease Mother Family Medical History: No Reported History, AFIB, CVA/TIA, Hypertension Additional Family Medical History / Comment(s): mother age 83 Daughter(s) Family Medical History: Asthma Son(s) Family Medical History: Asthma General Exam Limitations: no limitations General appearance: alert Head exam: Present: normocephalic Eye exam: Present: normal appearance ENT exam: Present: normal oropharynx Neck exam: Present: normal inspection Respiratory exam: Present: respiratory distress (Mild respiratory distress), wheezes (Mild left-sided) Cardiovascular Exam: Present: regular rate, normal rhythm GI/Abdominal exam: Present: soft. Absent: tenderness Extremities exam: Present: normal inspection. Absent: pedal edema, calf tenderness Neurological exam: Present: alert Psychiatric exam: Present: flat affect Skin exam: Present: normal color Course Vital Signs 06/09/20 06/09/20 06/09/20 09:04 10:06 10:15 Temperature 98.8 F Pulse Rate 76 76 75 Respiratory 20 20 22 Rate Blood Pressure 166/80 148/53 O2 Sat by Pulse 91 L 96 Oximetry 06/09/20 06/09/20 10:25 11:00 Temperature Pulse Rate 75 75 Respiratory 18 18 Rate Blood Pressure 166/74 O2 Sat by Pulse 96 Oximetry - Reevaluation(s) Reevaluation #1: 06/09/20 11:48 Patient is felt not to meet sepsis criteria at this time. Dyspnea and elevated respiratory rate secondary toPulmonary edema. EKG Findings - EKG Comments: EKG Findings:: Normal sinus rhythm at 75. MI 178. QRS 154. QT 478. QTC 533. Left axis. Right bundle branch block. Left anterior fascicular block. No acute ST change. Medical Decision Making - Medical Decision Making Patient reevaluated and reexamined by myself, Dr. Virgen. Patient still mildly short of breath. BiPAP will be started. Patient and family updated on results and plan. Case was discussed in detail with Dr. Colvin, who will admit covering for Dr. Farias. She did evaluate patient emergency department. - Lab Data Result diagrams: 06/09/20 09:43 06/09/20 09:43 Lab Results 06/09/20 06/09/20 06/09/20 Range/Units 09:43 09:43 09:43 WBC 14.5 H (3.8-10.6) k/uL RBC 3.34 L (3.80-5.40) m/uL Hgb 11.2 L (11.4-16.0) gm/dL Hct 34.8 (34.0-46.0) % MCV 104.2 H (80.0-100.0) fL MCH 33.6 (25.0-35.0) pg MCHC 32.3 (31.0-37.0) g/dL RDW 15.4 (11.5-15.5) % Plt Count 277 (150-450) k/uL MPV 8.1 Neutrophils % 82 % Lymphocytes % 10 % Monocytes % 4 % Eosinophils % 2 % Basophils % 1 % Neutrophils # 11.9 H (1.3-7.7) k/uL Lymphocytes # 1.4 (1.0-4.8) k/uL Monocytes # 0.6 (0-1.0) k/uL Eosinophils # 0.3 (0-0.7) k/uL Basophils # 0.1 (0-0.2) k/uL Hypochromasia Slight Macrocytosis Moderate PT 10.6 (9.0-12.0) sec INR 1.0 (<1.2) APTT 26.2 (22.0-30.0) sec Sodium 131 L (137-145) mmol/L Potassium 5.7 H (3.5-5.1) mmol/L Chloride 87 L (98-107) mmol/L Carbon Dioxide 20 L (22-30) mmol/L Anion Gap 24 mmol/L BUN 70 H (7-17) mg/dL Creatinine 6.86 H (0.52-1.04) mg/dL Est GFR (CKD-EPI)AfAm 6 (>60 ml/min/1.73 sqM) Est GFR (CKD-EPI)NonAf 5 (>60 ml/min/1.73 sqM) Glucose 188 H (74-99) mg/dL Plasma Lactic Acid Satinder (0.7-2.0) mmol/L Calcium 8.9 (8.4-10.2) mg/dL Total Bilirubin 0.7 (0.2-1.3) mg/dL AST 19 (14-36) U/L ALT 11 (4-34) U/L Alkaline Phosphatase 197 H (38-126) U/L Troponin I (0.000-0.034) ng/mL C-Reactive Protein 22.4 H (<10.0) mg/L NT-Pro-B Natriuret Pep pg/mL Total Protein 8.4 H (6.3-8.2) g/dL Albumin 4.7 (3.5-5.0) g/dL Urine Color Urine Appearance (Clear) Urine pH (5.0-8.0) Ur Specific [place] (1.001-1.035) Urine Protein (Negative) Urine Glucose (UA) (Negative) Urine Ketones (Negative) Urine Blood (Negative) Urine Nitrite (Negative) Urine Bilirubin (Negative) Urine Urobilinogen (<2.0) mg/dL Ur Leukocyte Esterase (Negative) Urine RBC (0-5) /hpf Urine WBC (0-5) /hpf Urine WBC Clumps (None) /hpf Urine Bacteria (None) /hpf Urine Mucus (None) /hpf Coronavirus (PCR) (Not Detectd) 06/09/20 06/09/20 06/09/20 Range/Units 09:43 09:43 09:43 WBC (3.8-10.6) k/uL RBC (3.80-5.40) m/uL Hgb (11.4-16.0) gm/dL Hct (34.0-46.0) % MCV (80.0-100.0) fL MCH (25.0-35.0) pg MCHC (31.0-37.0) g/dL RDW (11.5-15.5) % Plt Count (150-450) k/uL MPV Neutrophils % % Lymphocytes % % Monocytes % % Eosinophils % % Basophils % % Neutrophils # (1.3-7.7) k/uL Lymphocytes # (1.0-4.8) k/uL Monocytes # (0-1.0) k/uL Eosinophils # (0-0.7) k/uL Basophils # (0-0.2) k/uL Hypochromasia Macrocytosis PT (9.0-12.0) sec INR (<1.2) APTT (22.0-30.0) sec Sodium (137-145) mmol/L Potassium (3.5-5.1) mmol/L Chloride (98-107) mmol/L Carbon Dioxide (22-30) mmol/L Anion Gap mmol/L BUN (7-17) mg/dL Creatinine (0.52-1.04) mg/dL Est GFR (CKD-EPI)AfAm (>60 ml/min/1.73 sqM) Est GFR (CKD-EPI)NonAf (>60 ml/min/1.73 sqM) Glucose (74-99) mg/dL Plasma Lactic Acid Satinder 1.6 (0.7-2.0) mmol/L Calcium (8.4-10.2) mg/dL Total Bilirubin (0.2-1.3) mg/dL AST (14-36) U/L ALT (4-34) U/L Alkaline Phosphatase (38-126) U/L Troponin I <0.012 (0.000-0.034) ng/mL C-Reactive Protein (<10.0) mg/L NT-Pro-B Natriuret Pep 2100 pg/mL Total Protein (6.3-8.2) g/dL Albumin (3.5-5.0) g/dL Urine Color Urine Appearance (Clear) Urine pH (5.0-8.0) Ur Specific [place] (1.001-1.035) Urine Protein (Negative) Urine Glucose (UA) (Negative) Urine Ketones (Negative) Urine Blood (Negative) Urine Nitrite (Negative) Urine Bilirubin (Negative) Urine Urobilinogen (<2.0) mg/dL Ur Leukocyte Esterase (Negative) Urine RBC (0-5) /hpf Urine WBC (0-5) /hpf Urine WBC Clumps (None) /hpf Urine Bacteria (None) /hpf Urine Mucus (None) /hpf Coronavirus (PCR) (Not Detectd) 06/09/20 06/09/20 Range/Units 09:43 10:05 WBC (3.8-10.6) k/uL RBC (3.80-5.40) m/uL Hgb (11.4-16.0) gm/dL Hct (34.0-46.0) % MCV (80.0-100.0) fL MCH (25.0-35.0) pg MCHC (31.0-37.0) g/dL RDW (11.5-15.5) % Plt Count (150-450) k/uL MPV Neutrophils % % Lymphocytes % % Monocytes % % Eosinophils % % Basophils % % Neutrophils # (1.3-7.7) k/uL Lymphocytes # (1.0-4.8) k/uL Monocytes # (0-1.0) k/uL Eosinophils # (0-0.7) k/uL Basophils # (0-0.2) k/uL Hypochromasia Macrocytosis PT (9.0-12.0) sec INR (<1.2) APTT (22.0-30.0) sec Sodium (137-145) mmol/L Potassium (3.5-5.1) mmol/L Chloride (98-107) mmol/L Carbon Dioxide (22-30) mmol/L Anion Gap mmol/L BUN (7-17) mg/dL Creatinine (0.52-1.04) mg/dL Est GFR (CKD-EPI)AfAm (>60 ml/min/1.73 sqM) Est GFR (CKD-EPI)NonAf (>60 ml/min/1.73 sqM) Glucose (74-99) mg/dL Plasma Lactic Acid Satinder (0.7-2.0) mmol/L Calcium (8.4-10.2) mg/dL Total Bilirubin (0.2-1.3) mg/dL AST (14-36) U/L ALT (4-34) U/L Alkaline Phosphatase (38-126) U/L Troponin I (0.000-0.034) ng/mL C-Reactive Protein (<10.0) mg/L NT-Pro-B Natriuret Pep pg/mL Total Protein (6.3-8.2) g/dL Albumin (3.5-5.0) g/dL Urine Color Light Red Urine Appearance Turbid H (Clear) Urine pH 5.5 (5.0-8.0) Ur Specific [place] 1.021 (1.001-1.035) Urine Protein 2+ H (Negative) Urine Glucose (UA) Negative (Negative) Urine Ketones Negative (Negative) Urine Blood Large H (Negative) Urine Nitrite Negative (Negative) Urine Bilirubin Negative (Negative) Urine Urobilinogen <2.0 (<2.0) mg/dL Ur Leukocyte Esterase Large H (Negative) Urine RBC >182 H (0-5) /hpf Urine WBC >182 H (0-5) /hpf Urine WBC Clumps Many H (None) /hpf Urine Bacteria Moderate H (None) /hpf Urine Mucus Rare H (None) /hpf Coronavirus (PCR) Not Detected (Not Detectd) - Radiology Data Radiology results: image reviewed (Chest x-ray concerning for CHF) Critical Care Time Critical Care Time: Yes Total Critical Care Time: 32 Disposition Clinical Impression: Acute respiratory failure, Pulmonary edema, Urinary tract infection Disposition: ADMITTED IP TO THIS [facility] Condition: Serious Is patient prescribed a controlled substance at d/c from ED?: No Referrals: Stevenson Farias MD [Primary Care Provider] - 1-2 days Decision Time: 11:49
[2020-06-09 09:52] LABS: Basophils # (A) 0.1 k/uL (0-0.2); Basophils % (A) 1 %; Eosinophils # (A) 0.3 k/uL (0-0.7); Eosinophils % (A) 2 %; HCT 34.8 % (34.0-46.0); HGB 11.2 gm/dL (11.4-16.0); Hypochromasia Slight; Lymphocytes # (A) 1.4 k/uL (1.0-4.8); Lymphocytes % (A) 10 %; MCH 33.6 pg (25.0-35.0); MCHC 32.3 g/dL (31.0-37.0); MCV 104.2 fL (80.0-100.0); Macrocytosis Moderate; Mean Platelet Volume 8.1; Monocytes # (A) 0.6 k/uL (0-1.0); Monocytes % (A) 4 %; Neutrophils # (A) 11.9 k/uL (1.3-7.7); Neutrophils % (A) 82 %; Platelet Count 277 k/uL (150-450); RBC 3.34 m/uL (3.80-5.40); RDW 15.4 % (11.5-15.5); WBC 14.5 k/uL (3.8-10.6)
[2020-06-09 10:01] LABS: Partial Thromboplastin Time 26.2 sec (22.0-30.0); Prothrombin Time 10.6 sec (9.0-12.0)
[2020-06-09] MEDS ORDERED: LEVOFLOXACIN 250MG-D5W PMX 250 MG in DEXTROSE/WATER 1 50ML.BAG IVPB STA (10:10)
[2020-06-09 10:13] LABS: Albumin 4.7 g/dL (3.5-5.0); C Reactive Protein 22.4 mg/L (<10.0); Calcium 8.9 mg/dL (8.4-10.2); Potassium 5.7 mmol/L (3.5-5.1); Total Bilirubin 0.7 mg/dL (0.2-1.3); Total Protein 8.4 g/dL (6.3-8.2)
[2020-06-09 10:28] LABS: Appearance,Urine Turbid (Clear); Bacteria,Urine Moderate /hpf; Bilirubin,Urine Negative (Negative); Blood,Urine Large (Negative); Color,Urine Light Red; Glucose,Urine (UA) Negative (Negative); Ketones,Urine Negative (Negative); Leukocyte Esterase,Urine Large (Negative); Mucus,Urine Rare /hpf; Nitrite,Urine Negative (Negative); PH, Urine 5.5 (5.0-8.0); Protein,Urine 2+ (Negative); RBC,Urine >182 /hpf (0-5); Specific Gravity,Urine 1.021 (1.001-1.035); Urobilinogen,Urine <2.0 mg/dL (<2.0); WBC,Urine >182 /hpf (0-5)
--- NOTE | 2020-06-09 11:30 | XR ---
EXAMINATION TYPE: XR chest 2V DATE OF EXAM: 06/09/2020 COMPARISON: Chest x-ray October 01, 2019 HISTORY: Weakness and shortness of breath. TECHNIQUE: Frontal and lateral views of the chest are obtained. FINDINGS: There is persistent low lung volumes and cardiomegaly with stent graft in the aortic root along with ectatic thoracic aorta. Dense material possible calcification left hilar region redemonst rated. There is new mild to moderate central vascular congestion and small bilateral pleural effusion s. Long segment fusion device in the thoracolumbar spine is partially imaged. IMPRESSION: Findings consistent with CHF exacerbation as there is low lung volumes and cardiomegaly with new mild to moderate central vascular congestion and small bilateral pleural effusions. Correlat e clinically.
[2020-06-09] MEDS ORDERED: NALOXONE 0.4 MG/ML 1 ML VIAL IV PRN (11:49)
--- NOTE | 2020-06-09 12:23 | CT ---
EXAMINATION TYPE: CT angio chest DATE OF EXAM: 06/09/2020 COMPARISON: Chest x-ray 06/09/2020, chest CT 08/04/2014 HISTORY: Hypoxia CT DLP: 671.3 mGycm Automated exposure control for dose reduction was used. CONTRAST: CTA scan of the thorax is performed with IV Contrast, patient injected with 72 mL of Isovue 300, pulm onary embolism protocol. MIP images are created and reviewed. 3D reconstructed images are created o n an independent workstation and reviewed. FINDINGS: LUNGS: Findings suggestive heart failure with bilateral pleural effusions and dependent atelectatic c hanges are noted as described on plain film, is bilateral groundglass opacity. Coronary artery calcif ications are present, some metallic densities seen at the mitral valve level. Indeterminate pulmonary nodule seen on axial image #60 the right lower lobe measures 7 to 8 mm AORTA: TAVR procedure changes are present. MEDIASTINUM: There is satisfactory enhancement of the pulmonary artery and its branches, there is no CT evidence for pulmonary embolism, difficult to exclude small subsegmental pulmonary emboli. There is dense metallic density present within the left pulmonary artery distally. There are nodes in the p revascular mediastinum which are enlarged, retrocaval pretracheal node is enlarged, probable enlarged subcarinal nodes. No pericardial effusion is seen. The heart is enlarged. The esophagus shows ques tionable thickened wall. OTHER: Postop changes are noted at the thoracic lumbar spine, multilevel compression deformities are noted in the thoracic spine of indeterminate age. IMPRESSION: CARDIOMEGALY, CONGESTIVE HEART FAILURE NOTED ON PLAIN FILM, CORRELATE TO EXCLUDE PNEUMONIA. INDETE RMINATE PULMONARY NODULE. MEDIASTINAL ADENOPATHY. FOLLOW UP SUGGESTED. INDETERMINATE DENSITY WITHIN T HE LEFT PULMONARY ARTERY COULD BE RELATED TO POOLING OF CONTRAST MATERIAL BUT IS INDETERMINATE, PULMO NARY EMBOLISM IS NOT EVIDENT DESCRIBED.
[2020-06-09] MEDS: AMPICILLIN-SULBACTAM 1.5 GM in SODIUM CHLORIDE 0.9% 50 ML IVPB SCH ×2 (13:40→20:27)
[2020-06-09 15:35] LABS: Glucose,Whole Blood 174 mg/dL (75-99)
--- NOTE | 2020-06-09 16:21 | P.CNPUL ---
History of Present Illness Consult date: 06/09/20 Requesting physician: Onur Virgen Reason for consult: dyspnea, hypoxemia, pneumonia, abnormal CXR/CT Chief complaint: Acute on chronic hypoxic respiratory failure, urinary tract infection, CHF History of present illness: 74-year-old white female patient with extensive medical history including p aroxysmal atrial fibrillation, coronary artery disease with previous stenting, aortic stenosis status post LAXMI, hypertension, hyperlipidemia, diabetes mellitus type 2, end-stage renal disease on hemodialysis 3 times a week through the AV fistula in the left upper extremity, peripheral neuropathy, chronic anemia, obstructive sleep apnea on CPAP therapy with a pressure of 12 cm of water, morbid obesity, chronic back pain, previous episode of MRSA infection. Patient had a recurrent urinary tract infections since December 2019 and was on multiple rounds of antibiotics. She was just started on Bactrim yesterday on an outpatient basis. Her urine cultures from December, March, and March were all positive for E. coli, however the urine culture from 06/04/2020 was positive for E. coli and Klebsiella oxytoca, but both were sensitive to Bactrim. Patient presents to the emergency department on 06/09/2020 for evaluation of worsening shortness of breath that has progressed over a period of last few days. Patient has been using her CPAP unit at home, she reports occasional cough, but no chest pain. She reports being very fatigued. Chest x-ray showed low lung volumes and cardiomegaly with stent graft in the aortic root along with ectatic thoracic aorta, there was a new mild to moderate central vascular congestion and small bilateral pleural effusions. CT angios of the chest showed findings suggestive of heart failure with bilateral pleural effusions and atelectatic changes at the dependent portions of the lung, bilateral groundglass opacity, indeterminate pulmonary nodule measuring 7-8 mm, no CT evidence for pulmonary embolism, physical to exclude small subsegmental pulmonary emboli. Lab data reveals white blood cell count of 14.5, hemoglobin of 11.2, sodium is 131, potassium is 5.7, chloride is 87, CO2 is 20, BUN is 70, creatinine is 6.86, proBNP was 2100, troponin was less than 0.012, alkaline phosphatase was elevated at 197, AST and ALT were within normal limits, urinalysis showed large amount of blood, 2+ protein, large amount of leuks, white blood cells in moderate bacteria, urine culture was sent, patient was started on Unasyn, she also received a dose of Levaquin, coronavirus PCR was negative. Patient is seen in the emergency department currently on BiPAP support with pressures of 10/5 and FiO2 of 35% and a pulse ox is 97%, patient is laying flat on the gurney, she has moderate shortness of breath, no acute distress, echocardiogram has been order ed, nephrology consultation has been ordered for possibility of hemodialysis treatment today. Blood and urine cultures have been ordered and are pending at this time. Echocardiogram is ordered, in view of patient's complex medical history patient will be per to the intensive care unit for closer monitoring. Review of Systems All systems: negative Constitutional: Reports fatigue, Reports malaise, Reports weakness, Denies chills, Denies fever Eyes: denies blurred vision, denies pain Ears, nose, mouth and throat: Denies headache, Denies sore throat Cardiovascular: Denies chest pain, Denies shortness of breath Respiratory: Reports dyspnea, Reports home oxygen, Reports respiratory infections, Denies cough Gastrointestinal: Denies abdominal pain, Denies diarrhea, Denies nausea, Denies vomiting Genitourinary: Denies dysuria, Denies hematuria Musculoskeletal: Denies myalgias Integumentary: Denies pruritus, Denies rash Neurological: Denies numbness, Denies weakness Psychiatric: Denies anxiety, Denies depression Endocrine: Denies fatigue, Denies weight change Past Medical History Past Medical History: Atrial Fibrillation, Coronary Artery Disease (CAD), Heart Failure, COPD, Diabetes Mellitus, Dialysis, GERD/Reflux, GI Bleed, Hyperlipidemia, Hypertension, Myocardial Infarction (SD), Pneumonia, Renal Disease, Sleep Apnea/CPAP/BIPAP, Vascular Disorder Additional Past Medical History / Comment(s): HEMODIALYSIS- MONDAY,MONDAY,AND MONDAY . USES WHEELCHAIR-TRANSFERS ONLY -CAN TAKE A COUPLE OF STEPS, hx. GI bleed >year ago, SOB w/exertion, uses oxygen prn @2l, see Dr Com[facility] Last Myocardial Infarction Date:: 2015 History of Any Multi-Drug Resistant Organisms: MRSA Date of last positivie culture/infection: 02/09/18 MDRO Source:: LT THIRD TOE Past Surgical History: Back Surgery, Cholecystectomy, Heart Catheterization, Heart Catheterization With Stent, Hysterectomy, Orthopedic Surgery Additional Past Surgical History / Comment(s): PCI with stents, several back surgeries-lumbar, bilateral carpal tunnel releases, bilateral cataract removals, port then fistula for hemodialysis. PTBA to left leg 03-02-18. TAVR in [address] at [facility] Past Anesthesia/Blood Transfusion Reactions: Previous Problems w/ Anesthesia Additional Past Anesthesia/Blood Transfusion Reaction / Comment(s): Confusion that resolved. Date of Last Stent Placement:: 10/06/17 Past Psychological History: No Psychological Hx Reported Smoking Status: Never smoker Past Alcohol Use History: None Reported Past Drug Use History: None Reported - Past Family History Father Additional Family Medical History / Comment(s): Brain aneurysm ; age 72 Sister(s) Family Medical History: Hypertension Additional Family Medical History / Comment(s): Aortic stenosis; mitral valve disease Mother Family Medical History: No Reported History, AFIB, CVA/TIA, Hypertension Additional Family Medical History / Comment(s): mother age 83 Daughter(s) Family Medical History: Asthma Son(s) Family Medical History: Asthma Medications and Allergies Home Medications Medication Instructions Recorded Confirmed Type DULoxetine HCL [Cymbalta] 60 mg PO DAILY 08/04/14 06/09/20 History Amiodarone HCl [Pacerone] 100 mg PO DAILY 11/22/15 06/09/20 History Ezetimibe [Zetia] 10 mg PO DAILY 11/22/15 06/09/20 History Gabapentin [Neurontin] 300 mg PO BID #60 capsule 11/27/15 06/09/20 Rx Omeprazole 20 mg PO DAILY 12/25/16 06/09/20 History Cholecalciferol (Vitamin D3) 2,000 unit PO DAILY 12/31/16 06/09/20 History [Vitamin D3] Magnesium Oxide [Mag-Ox] 250 mg PO DAILY 05/05/17 06/09/20 History Clopidogrel [Plavix] 75 mg PO DAILY #30 tab 08/21/17 06/09/20 Rx Midodrine HCl [ProAmatine] 10 mg PO DIRECTED PRN 10/23/17 06/09/20 History Aspirin [Adult Low Dose Aspirin EC] 81 mg PO DAILY 03/02/18 06/09/20 History metOLazone [Zaroxolyn] 5 mg PO BID 02/11/19 06/09/20 History Cranberry 4200mg 4,200 mg PO BID 01/12/20 06/09/20 History Furosemide [Lasix] 80 mg PO BID 01/12/20 06/09/20 History Insulin Aspart [NovoLOG Flexpen] 10 - 14 units SQ AC-TID 01/12/20 06/09/20 History Insulin Glargine,Hum.rec.anlog 25 units SQ BID 01/12/20 06/09/20 History [Lantus Solostar] Metoprolol Succinate (ER) [Toprol 50 mg PO DAILY 01/12/20 06/09/20 History XL] Sevelamer [Renvela] 800 mg PO AC-BRKFST 01/12/20 06/09/20 History Ferrous Sulfate [Feosol] 325 mg PO DAILY 06/09/20 06/09/20 History Sulfamethox-Tmp 800-160Mg [Bactrim 1 tab PO Q12HR 06/09/20 06/09/20 History DS 800-160 mg] Vitamin C/Biotin [Hair, Skin and 1 tab PO BID 06/09/20 06/09/20 History Nails] Allergies Allergy/AdvReac Type Severity Reaction Status Date / Time KUSHAL Inhibitors Allergy Swelling Verified 06/09/20 10:29 ARB-Angiotensin Receptor Allergy Swelling Verified 06/09/20 10:29 Antagonist cephalexin monohydrate Allergy Rash/Hives, Verified 06/09/20 10:29 [From Keflex] MOUTH SWELLING propoxyphene HCl AdvReac Hallucinati Verified 06/09/20 10:29 [From Darvon] ons [id number] Reductase AdvReac Myalgia Verified 06/09/20 10:29 Inhibitor Physical Exam Vitals: Vital Signs Temp Pulse Resp BP Pulse Ox 06/09/20 15:09 98.8 F 69 18 152/67 96 06/09/20 15:00 69 18 152/67 96 06/09/20 14:00 69 18 96 06/09/20 13:00 69 18 145/56 96 06/09/20 12:00 68 18 96 06/09/20 11:00 75 18 166/74 96 06/09/20 10:25 75 18 06/09/20 10:15 75 22 06/09/20 10:06 76 20 148/53 96 06/09/20 09:04 98.8 F 76 20 166/80 91 L Intake and Output 06/09/20 06/09/20 06/09/20 06:59 14:59 22:59 Other: Weight 88.451 kg GENERAL EXAM: Alert, very pleasant, 74-year-old white female, laying flat on the gurney, currently on BiPAP support with pressures of 10/5 and FiO2 of 35% with a pulse ox of 97% in the emergency department, with [id number] short ness of breath but no acute distress awaiting hemodialysis comfortable in no apparent distress. Patient's daughter is at the bedside providing history HEAD: Normocephalic/atraumatic. EYES: Normal reaction of pupils, equal size. Conjunctiva pink, sclera white. NOSE: Clear with pink turbinates. THROAT: No erythema or exudates. NECK: No masses, no JVD, no thyroid enlargement, no adenopathy. CHEST: No chest wall deformity. Symmetrical expansion. LUNGS: Equal air entry with diminished breath sounds and bibasilar crackles CVS: Regular rate and rhythm, normal S1 and S2, no gallops, no murmurs, no rubs ABDOMEN: Soft, nontender. No hepatosplenomegaly, normal bowel sounds, no guarding or rigidity. EXTREMITIES: No clubbing, no edema, no cyanosis, 2+ pulses and upper and lower extremities. MUSCULOSKELETAL: Muscle strength and tone normal. Left upper arm AV fistula SPINE: No scoliosis or deformity SKIN: No rashes CENTRAL NERVOUS SYSTEM: Alert and oriented -3. No focal deficits, tone is norm al in all 4 extremities. PSYCHIATRIC: Alert and oriented -3. Appropriate affect. Intact judgment and insight. Results - Laboratory Findings CBC and BMP: 06/09/20 09:43 06/09/20 09:43 PT/INR, D-dimer PT 10.6 sec (9.0-12.0) 06/09/20 09:43 INR 1.0 (<1.2) 06/09/20 09:43 Abnormal lab findings: Abnormal Labs 06/09/20 06/09/20 06/09/20 09:43 09:43 10:05 WBC 14.5 H RBC 3.34 L Hgb 11.2 L MCV 104.2 H Neutrophils # 11.9 H Sodium 131 L Potassium 5.7 H Chloride 87 L Carbon Dioxide 20 L BUN 70 H Creatinine 6.86 H Glucose 188 H POC Glucose (mg/dL) Alkaline Phosphatase 197 H C-Reactive Protein 22.4 H Total Protein 8.4 H Urine Appearance Turbid H Urine Protein 2+ H Urine Blood Large H Ur Leukocyte Esterase Large H Urine RBC >182 H Urine WBC >182 H Urine WBC Clumps Many H Urine Bacteria Moderate H Urine Mucus Rare H 06/09/20 15:33 WBC RBC Hgb MCV Neutrophils # Sodium Potassium Chloride Carbon Dioxide BUN Creatinine Glucose POC Glucose (mg/dL) 174 H Alkaline Phosphatase C-Reactive Protein Total Protein Urine Appearance Urine Protein Urine Blood Ur Leukocyte Esterase Urine RBC Urine WBC Urine WBC Clumps Urine Bacteria Urine Mucus - Diagnostic Findings Chest x-ray: report reviewed, image reviewed CT scan - chest: report reviewed, image reviewed Additional studies: EKG reviewed Assessment and Plan Plan: Assessment: #1. Acute on chronic hypoxic respiratory failure related to acute exacerbation of CHF with diastolic dysfunction, COVID 19 was ruled out, chest x-ray findings showed central vascular congestion and small bilateral pleural effusions, CTA chest showed no evidence of pulmonary embolism, although it was difficult to exclude small subsegmental pulmonary emboli. Lung windows showed findings suggestive of heart failure with bilateral pleural effusions and dependent with that changes and bilateral groundglass opacity. #2. Recurrent urinary tract infection, since December 2019. Most recently urine culture from 06/04/2020 positive for E. coli and Klebsiella oxytoca, was started on Bactrim on an outpatient basis, currently on Unasyn #3. End-stage renal disease on hemodialysis #4. Paroxysmal atrial fibrillation, not on any chronic anticoagulation, currently in sinus mechanism #5. History of aortic valve stenosis status post LAXMI in 2018 #6. History of coronary artery disease with previous stenting #7. History of diastolic CHF #8. History of COPD on home oxygen at 2 L #9. History obstructive sleep apnea on CPAP at 12 cm of water #10. Previous history of pneumonia #11. History of GI bleeding #12. Previous history of myocardial infarction #13. Diabetes mellitus type 2 #14. GERD/reflux #15. Please history of MRSA infection #16. Chronic back pain with history of several back surgeries #17. History of peripheral vascular occlusive disease with previous intervention Plan: Continue BiPAP therapy, nephrology has been consulted, patient may undergo hemodialysis today, we will reorder home meds including diuretics, chest x-ray and CTA chest findings consistent with fluid overload and acute exacerbation of CHF. We will obtain echocardiogram. Continue current antibiotics, cultures have been sent and are pending at this time, GI and DVT prophylaxis, patient will be upgraded to intensive care unit in view of complex medical history. We'll continue close monitoring in the intensive care unit. COVID 19 has been ruled out, continue bronchodilators. Obtain chest x-ray in the morning. We will continue to follow I performed a history & physical examination of the patient and discussed their management with my nurse practitioner, Pinky Salas. I reviewed the nurse practitioner's note and agree with the documented findings and plan of care. Lung sounds are positive for diminished breath sounds. The findings and the impression was discussed with the patient. I attest to the documentation by the nurse practitioner. Time with Patient: Greater than 30
[2020-06-09] MEDS: FUROSEMIDE 80 MG TAB PO SCH (17:07)
--- NOTE | 2020-06-09 18:21 | P.HPIM ---
History of Present Illness H&P Date: 06/09/20 This is a 74-year-old female patient of Dr. Farias with past medical history of proximal atrial fibrillation, coronary artery disease status post [place], chronic diastolic heart failure, diabetes, hyperlipidemia, hypertension, hypertensive cardiovascular disease, end-stage renal disease on hemodialysis, aortic stenosis status post TAVR in 2018. Patient reports she was being treated for urinary tract infection by the nurse practitioner at [facility] 05/22 had cysstostcopy done for recurrent UIT, 2 days later had hematuria and was given bactrim for klebsiella and ecoli uti on 06/07/2020. she is on prophylactic macrobid and manderlamin,e. 1.5 wkeeks ago she now requiring daytime o2 for which she normlally dpoes not require. she has increasing shortenss of breath and idfficultuy in breathing, no edmea, no aspiration, she is dialyzed tths and is at at her current dry weight. she requires cpap at night with o2 being provided every bedtime. ER felt that Patient is a pleasant 74-year-old female presenting to the emergency Department with complaints of difficulty in breathing. Symptoms have progressed with the past few days. Patient has had multiple severe recent problems with urinary tract infection. Patient had culture returned yesterday with Klebsiella and E. coli. Questionable history of COPD. Patient has been using CPAP at home frequently and has been fatigued. Occasional cough.Patient is due today for dialysis. she was evaluated by myself in the ER hshe has abdominal breathing and accessory and breathing muscle use, and tachypnea, cta pe protocol imaging studies, with consult to see dr zhang, echo cardiogram, kaci mesa wer sent, urine is scant in roy cath, IV antibotic for now empiric till cultures, . last urine cultures reviewed, klebsiella and E. coli pansensitive except for klebsiella resistant to ampicillin, and cefazolin patient is is on IV Levaquin, transferred to ICU secondary distress, required BiPAP support pressures of 10/5, FiO2 35%, IV Zosyn pending cultures. Review of Systems Constitutional: Reports as per HPI, Denies anorexia, Denies chills, Denies chronic headaches, Denies chronic pain, Denies daytime sleepiness, Denies fatigue, Denies fever, Denies lethargy, Denies malaise, Denies night sweats, Denies poor appetite, Denies sweats, Denies weakness, Denies weight gain, Denies weight loss Ears, nose, mouth and throat: Reports as per HPI Cardiovascular: Reports as per HPI, Reports decreased exercise tolerance, Reports dyspnea on exertion Respiratory: Reports cough, Reports dyspnea, Reports home oxygen Gastrointestinal: Reports as per HPI Genitourinary: Reports as per HPI, Denies abnormal vaginal bleeding, Denies decreased libido, Denies difficulty conceiving, Denies difficulty voiding, Denies dysmenorrhea, Denies dyspareunia, Denies dysuria, Denies flank pain, Denies genital sores, Denies hematuria, Denies hot flashes, Denies incomplete emptying, Denies kidney stones, Denies menorrhagia, Denies mixed incontinence, Denies nocturia, Denies pelvic pain, Denies post void dribbling, Denies , Denies prolapse symptoms, Denies stress incontinence, Denies urge incontinence, Denies urgency, Denies urinary frequency, Denies vaginal discharge, Denies vaginal dryness, Denies vaginal itching, Denies vaginal odor Menstruation: Reports as per HPI Musculoskeletal: Reports as per HPI Integumentary: Reports as per HPI Neurological: Reports as per HPI, Reports gait dysfunction Psychiatric: Reports as per HPI, Denies anhedonia, Denies anxiety, Denies anxiety attacks, Denies change in appetite, Denies change in libido, Denies change in sleep habits, Denies confusion, Denies depression, Denies difficulty concentrating, Denies disorientation, Denies hallucinations, Denies hopelessness, Denies hypersomnia, Denies insomnia, Denies irritability, Denies memory loss, Denies mood swings, Denies paranoia, Denies sadness/tearfulness, Denies sleep disturbances, Denies suicidal ideation Endocrine: Reports as per HPI Hematologic/Lymphatic: Reports as per HPI Allergic/Immunologic: Reports as per HPI, Denies allergic rhinitis, Denies anaphylaxis, Denies angioedema, Denies gluten intolerance, Denies persistent infections, Denies seasonal allergies, Denies urticaria, Denies wheezing Past Medical History Past Medical History: Atrial Fibrillation, Coronary Artery Disease (CAD), Heart Failure, COPD, Diabetes Mellitus, Dialysis, GERD/Reflux, GI Bleed, Hyperlipidemia, Hypertension, Myocardial Infarction ([place]), Pneumonia, Renal Disease, Sleep Apnea/CPAP/BIPAP, Vascular Disorder Additional Past Medical History / Comment(s): HEMODIALYSIS- MONDAY,MONDAY,AND MONDAY . USES WHEELCHAIR-TRANSFERS ONLY -CAN TAKE A COUPLE OF STEPS, hx. GI bleed >year ago, SOB w/exertion, uses oxygen prn @2l, see Dr Combs H & P. TAVR Last Myocardial Infarction Date:: 2015 History of Any Multi-Drug Resistant Organisms: MRSA Date of last positivie culture/infection: 02/09/18 MDRO Source:: LT THIRD TOE Past Surgical History: Back Surgery, Cholecystectomy, Heart Catheterization, Hea rt Catheterization With Stent, Hysterectomy, Orthopedic Surgery Additional Past Surgical History / Comment(s): PCI with stents, several back surgeries-lumbar, bilateral carpal tunnel releases, bilateral cataract removals, port then fistula for hemodialysis. PTBA to left leg 03-02-18. TAVR in [address] Rock at [facility] Past Anesthesia/Blood Transfusion Reactions: Previous Problems w/ Anesthesia Additional Past Anesthesia/Blood Transfusion Reaction / Comment(s): Confusion that resolved. Date of Last Stent Placement:: 10/06/17 Past Psychological History: No Psychological Hx Reported Smoking Status: Never smoker Past Alcohol Use History: None Reported Past Drug Use History: None Reported - Past Family History Father Additional Family Medical History / Comment(s): Brain aneurysm ; age 72 Sister(s) Family Medical History: Hypertension Additional Family Medical History / Comment(s): Aortic stenosis; mitral valve disease Mother Family Medical History: No Reported History, AFIB, CVA/TIA, Hypertension Additional Family Medical History / Comment(s): mother age 83 Daughter(s) Family Medical History: Asthma Son(s) Family Medical History: Asthma Medications and Allergies Home Medications Medication Instructions Recorded Confirmed Type DULoxetine HCL [Cymbalta] 60 mg PO DAILY 08/04/14 06/09/20 History Amiodarone HCl [Pacerone] 100 mg PO DAILY 11/22/15 06/09/20 History Ezetimibe [Zetia] 10 mg PO DAILY 11/22/15 06/09/20 History Gabapentin [Neurontin] 300 mg PO BID #60 capsule 11/27/15 06/09/20 Rx Omeprazole 20 mg PO DAILY 12/25/16 06/09/20 History Cholecalciferol (Vitamin D3) 2,000 unit PO DAILY 12/31/16 06/09/20 History [Vitamin D3] Magnesium Oxide [Mag-Ox] 250 mg PO DAILY 05/05/17 06/09/20 History Clopidogrel [Plavix] 75 mg PO DAILY #30 tab 08/21/17 06/09/20 Rx Midodrine HCl [ProAmatine] 10 mg PO DIRECTED PRN 10/23/17 06/09/20 History Aspirin [Adult Low Dose Aspirin EC] 81 mg PO DAILY 03/02/18 06/09/20 History metOLazone [Zaroxolyn] 5 mg PO BID 02/11/19 06/09/20 History Cranberry 4200mg 4,200 mg PO BID 01/12/20 06/09/20 History Furosemide [Lasix] 80 mg PO BID 01/12/20 06/09/20 History Insulin Aspart [NovoLOG Flexpen] 10 - 14 units SQ AC-TID 01/12/20 06/09/20 History Insulin Glargine,Hum.rec.anlog 25 units SQ BID 01/12/20 06/09/20 History [Lantus Solostar] Metoprolol Succinate (ER) [Toprol 50 mg PO DAILY 01/12/20 06/09/20 History XL] Sevelamer [Renvela] 800 mg PO AC-BRKFST 01/12/20 06/09/20 History Ferrous Sulfate [Feosol] 325 mg PO DAILY 06/09/20 06/09/20 History Sulfamethox-Tmp 800-160Mg [Bactrim 1 tab PO Q12HR 06/09/20 06/09/20 History DS 800-160 mg] Vitamin C/Biotin [Hair, Skin and 1 tab PO BID 06/09/20 06/09/20 History Nails] Allergies Allergy/AdvReac Type Severity Reaction Status Date / Time KUSHAL Inhibitors Allergy Swelling Verified 06/09/20 10:29 ARB-Angiotensin Receptor Allergy Swelling Verified 06/09/20 10:29 Antagonist cephalexin monohydrate Allergy Rash/Hives, Verified 06/09/20 10:29 [From Keflex] MOUTH SWELLING propoxyphene HCl AdvReac Hallucinati Verified 06/09/20 10:29 [From Darvon] ons [id number] Reductase AdvReac Myalgia Verified 06/09/20 10:29 Inhibitor Physical Exam Vitals: Vital Signs Temp Pulse Resp BP Pulse Ox 06/09/20 13:00 69 18 145/56 96 06/09/20 12:00 68 18 96 06/09/20 11:00 75 18 166/74 96 06/09/20 10:25 75 18 06/09/20 10:15 75 22 06/09/20 10:06 76 20 148/53 96 06/09/20 09:04 98.8 F 76 20 166/80 91 L Intake and Output 06/08/20 06/09/20 06/09/20 22:59 06:59 14:59 Other: Weight 88.451 kg - Constitutional General appearance: cooperative, no acute distress - EENT Eyes: EOMI, PERRLA - Neck Neck: normal ROM - Respiratory Respiratory: bilateral: CTA, negative: diminished, dullness, rales, rhonchi - Cardiovascular Rhythm: regular Heart sounds: normal: S1, S2 Abnormal Heart Sounds: no systolic murmur, no diastolic murmur, no rub, no S3 Gallop, no S4 Gallop, no click, no other - Gastrointestinal General gastrointestinal: normal bowel sounds, soft - Neurologic Neurologic: CNII-XII intact - Musculoskeletal Musculoskeletal: gait normal - Psychiatric Psychiatric: A&O x's 3, appropriate affect, intact judgment & insight Results CBC & Chem 7: 06/09/20 09:43 06/09/20 09:43 Labs: Abnormal Lab Results - Last 24 Hours (Table) 06/09/20 06/09/20 06/09/20 Range/Units 09:43 09:43 10:05 WBC 14.5 H (3.8-10.6) k/uL RBC 3.34 L (3.80-5.40) m/uL Hgb 11.2 L (11.4-16.0) gm/dL MCV 104.2 H (80.0-100.0) fL Neutrophils # 11.9 H (1.3-7.7) k/uL Sodium 131 L (137-145) mmol/L Potassium 5.7 H (3.5-5.1) mmol/L Chloride 87 L (98-107) mmol/L Carbon Dioxide 20 L (22-30) mmol/L BUN 70 H (7-17) mg/dL Creatinine 6.86 H (0.52-1.04) mg/dL Glucose 188 H (74-99) mg/dL Alkaline Phosphatase 197 H (38-126) U/L C-Reactive Protein 22.4 H (<10.0) mg/L Total Protein 8.4 H (6.3-8.2) g/dL Urine Appearance Turbid H (Clear) Urine Protein 2+ H (Negative) Urine Blood Large H (Negative) Ur Leukocyte Esterase Large H (Negative) Urine RBC >182 H (0-5) /hpf Urine WBC >182 H (0-5) /hpf Urine WBC Clumps Many H (None) /hpf Urine Bacteria Moderate H (None) /hpf Urine Mucus Rare H (None) /hpf Laboratory Results WBC 14.5 k/uL (3.8-10.6) H 06/09/20 09:43 RBC 3.34 m/uL (3.80-5.40) L 06/09/20 09:43 Hgb 11.2 gm/dL (11.4-16.0) L 06/09/20 09:43 Hct 34.8 % (34.0-46.0) 06/09/20 09:43 MCV 104.2 fL (80.0-100.0) H 06/09/20 09:43 MCH 33.6 pg (25.0-35.0) 06/09/20 09:43 MCHC 32.3 g/dL (31.0-37.0) 06/09/20 09:43 RDW 15.4 % (11.5-15.5) 06/09/20 09:43 Plt Count 277 k/uL (150-450) 06/09/20 09:43 MPV 8.1 06/09/20 09:43 Neutrophils % 82 % 06/09/20 09:43 Lymphocytes % 10 % 06/09/20 09:43 Monocytes % 4 % 06/09/20 09:43 Eosinophils % 2 % 06/09/20 09:43 Basophils % 1 % 06/09/20 09:43 Neutrophils # 11.9 k/uL (1.3-7.7) H 06/09/20 09:43 Lymphocytes # 1.4 k/uL (1.0-4.8) 06/09/20 09:43 Monocytes # 0.6 k/uL (0-1.0) 06/09/20 09:43 Eosinophils # 0.3 k/uL (0-0.7) 06/09/20 09:43 Basophils # 0.1 k/uL (0-0.2) 06/09/20 09:43 Hypochromasia Slight 06/09/20 09:43 Macrocytosis Moderate 06/09/20 09:43 PT 10.6 sec (9.0-12.0) 06/09/20 09:43 INR 1.0 (<1.2) 06/09/20 09:43 APTT 26.2 sec (22.0-30.0) 06/09/20 09:43 Sodium 131 mmol/L (137-145) L 06/09/20 09:43 Potassium 5.7 mmol/L (3.5-5.1) H 06/09/20 09:43 Chloride 87 mmol/L (98-107) L 06/09/20 09:43 Carbon Dioxide 20 mmol/L (22-30) L 06/09/20 09:43 Anion Gap 24 mmol/L 06/09/20 09:43 BUN 70 mg/dL (7-17) H 06/09/20 09:43 Creatinine 6.86 mg/dL (0.52-1.04) H 06/09/20 09:43 Est GFR (CKD-EPI)AfAm 6 (>60 ml/min/1.73 sqM) 06/09/20 09:43 Est GFR (CKD-EPI)NonAf 5 (>60 ml/min/1.73 sqM) 06/09/20 09:43 Glucose 188 mg/dL (74-99) H 06/09/20 09:43 POC Glucose (mg/dL) 174 mg/dL (75-99) H 06/09/20 15:33 POC Glu Stock And Station Agent ID 06/09/20 15:33 Plasma Lactic Acid Satinder 1.6 mmol/L (0.7-2.0) 06/09/20 09:43 Calcium 8.9 mg/dL (8.4-10.2) 06/09/20 09:43 Total Bilirubin 0.7 mg/dL (0.2-1.3) 06/09/20 09:43 AST 19 U/L (14-36) 06/09/20 09:43 ALT 11 U/L (4-34) 06/09/20 09:43 Alkaline Phosphatase 197 U/L (38-126) H 06/09/20 09:43 Troponin I <0.012 ng/mL (0.000-0.034) 06/09/20 09:43 C-Reactive Protein 22.4 mg/L (<10.0) H 06/09/20 09:43 NT-Pro-B Natriuret Pep 2100 pg/mL 06/09/20 09:43 Total Protein 8.4 g/dL (6.3-8.2) H 06/09/20 09:43 Albumin 4.7 g/dL (3.5-5.0) 06/09/20 09:43 Urine Color Light Red 06/09/20 10:05 Urine Appearance Turbid (Clear) H 06/09/20 10:05 Urine pH 5.5 (5.0-8.0) 06/09/20 10:05 Ur Specific [place] 1.021 (1.001-1.035) 06/09/20 10:05 Urine Protein 2+ (Negative) H 06/09/20 10:05 Urine Glucose (UA) Negative (Negative) 06/09/20 10:05 Urine Ketones Negative (Negative) 06/09/20 10:05 Urine Blood Large (Negative) H 06/09/20 10:05 Urine Nitrite Negative (Negative) 06/09/20 10:05 Urine Bilirubin Negative (Negative) 06/09/20 10:05 Urine Urobilinogen <2.0 mg/dL (<2.0) 06/09/20 10:05 Ur Leukocyte Esterase Large (Negative) H 06/09/20 10:05 Urine RBC >182 /hpf (0-5) H 06/09/20 10:05 Urine WBC >182 /hpf (0-5) H 06/09/20 10:05 Urine WBC Clumps Many /hpf (None) H 06/09/20 10:05 Urine Bacteria Moderate /hpf (None) H 06/09/20 10:05 Urine Mucus Rare /hpf (None) H 06/09/20 10:05 Coronavirus (PCR) Not Detected (Not Detectd) 06/09/20 09:43 Thrombosis Risk Factor Assmnt - DVT/VTE Prophylaxis DVT/VTE Prophylaxis: Pharmacologic Prophylaxis ordered - Choose All That Apply Each Factor Represents 1 point: Obesity (BMI >25) Each Risk Factor Represents 3 Points: Age 75 years or older Thrombosis Risk Factor Assessment Total Risk Factor Score: 4 Thrombosis Risk Factor Assessment Level: Moderate Risk Assessment and Plan Plan: 1. Acute respiratory failure with acute hypoxemic respiratory failure now on BiPAP 02/02, most likely secondary to acute diastolic CHF, CTA showed no pulmonary emboli, however cannot rule out subsegmental pulmonary embolism, has bilateral pleural effusion, and CHF., Ruled out covid Infection 2. Bilateral pleural effusion, patient might need thoracenteses shoed dialysis and diuretics be effective in clearing her shortness of breath. 3 Recurrent UTI, status post cystoscopy, by Dr. Borrego, cultures are obtained, growing E. coli and klebsiella during last cultures, IV Zosyn, pending new urine cultures and blood cultures on chronic prophylactic antibiotics including nitrofurantoin and Mandelamine 4 Oliguria secondary to end-stage kidney disease, still making 400 mL per day, consult with nephrology, on hemodialysis 5 End-stage renal disease on hemodialysis Monday and Monday, 6 Chronic diastolic heart failure. Continue hemodialysis. Continue home dose of Lasix at 80 mg twice daily as well as metoprolol 50 mg Monday, and metolazone 5 mg twice a day 7 History of aortic stenosis status post TAVR. 8 Hypertension cardiovascular disease. Continue amiodarone 100 mg daily and metoprolol. 10 Paroxysmal atrial fibrillation. Continue amiodarone 100 mg once daily and metoprolol a history of GI bleed no past several years ago, not on any anticoagulation secondary to that. 11 History of myocardial infarction and coronary artery disease status post LAD stent in July 2017 and left circumflex in August 2017. Continue Toprol-XL 50 mg once daily, and Plavix 12 Diabetes mellitus type 2, insulin requiring. Continue insulin sliding scale. 13 GERD continue Protonix. 14 History of hyperlipidemia continue Zetia 10mg daily 15 Obstructive sleep apnea, on CPAP machine at night, along with O2 supplementation 16. Diabetic peripheral neuropathy continue gabapentin 300 mg twice daily. 17. Recurrent depression. Continue Cymbalta 60 mg orally once daily DVT prophylaxis. Continue bilateral knee-high TERRIE hose and SCDs GI prophylaxis continue Protonix.
[2020-06-09] MEDS: PANTOPRAZOLE 40 MG/10 ML VIAL IVP SCH (18:45)
[2020-06-09 20:21] LABS: Glucose,Whole Blood 147 mg/dL (75-99)
[2020-06-09] MEDS: HEPARIN SODIUM,PORCINE 5,000 UNIT/ML 1 ML VIAL SQ SCH (20:22)
[2020-06-09] MEDS: metOLazone 5 MG TAB PO SCH (20:28)
[2020-06-09] MEDS: GABAPENTIN 300 MG CAP PO SCH (20:28)
[2020-06-10] MEDS: AMPICILLIN-SULBACTAM 1.5 GM in SODIUM CHLORIDE 0.9% 50 ML IVPB SCH ×2 (00:27→06:26)
[2020-06-10] MEDS: ACETAMINOPHEN TAB 325 MG TAB PO PRN ×2 (00:27→13:35)
[2020-06-10 04:02] LABS: Basophils # (A) 0.1 k/uL (0-0.2); Basophils % (A) 1 %; Eosinophils # (A) 0.1 k/uL (0-0.7); Eosinophils % (A) 1 %; HCT 30.3 % (34.0-46.0); Hypochromasia Slight; Lymphocytes # (A) 0.7 k/uL (1.0-4.8); Lymphocytes % (A) 7 %; MCH 33.3 pg (25.0-35.0); MCHC 32.1 g/dL (31.0-37.0); MCV 103.7 fL (80.0-100.0); Macrocytosis Moderate; Mean Platelet Volume 8.2; Monocytes # (A) 0.6 k/uL (0-1.0); Monocytes % (A) 6 %; Neutrophils % (A) 84 %; Platelet Count 201 k/uL (150-450); RBC 2.92 m/uL (3.80-5.40); RDW 15.5 % (11.5-15.5); WBC 9.5 k/uL (3.8-10.6)
[2020-06-10 04:13] LABS: HGB 9.7 gm/dL (11.4-16.0)
[2020-06-10 04:21] LABS: Albumin 3.8 g/dL (3.5-5.0); Calcium 8.5 mg/dL (8.4-10.2); Potassium 4.8 mmol/L (3.5-5.1); Total Bilirubin 0.6 mg/dL (0.2-1.3); Total Protein 7.1 g/dL (6.3-8.2)
[2020-06-10 04:27] LABS: Hepatitis B Surface AB- Quant 3.5 mIU/mL; Hepatitis B Surface Antibody Non-Reactive (Non-Reactive); Hepatitis B Surface Antigen Non-Reactive (Non-Reactive)
[2020-06-10 05:27] LABS: T4, Free (Free Thyroxine) 1.09 ng/dL (0.78-2.19)
[2020-06-10] MEDS: SEVELAMER 800 MG TAB PO SCH (06:43)
[2020-06-10 06:48] LABS: Glucose,Whole Blood 144 mg/dL (75-99)
--- NOTE | 2020-06-10 08:30 | XR ---
EXAMINATION TYPE: XR chest 1V portable DATE OF EXAM: 06/10/2020 COMPARISON: 06/09/2020 HISTORY: Difficulty breathing TECHNIQUE: Single frontal view of the chest is obtained. FINDINGS: Heart is enlarged. There is vascular stent. Heart remains enlarged and there is bilateral interstitial pattern with consolidation and pleural effusion most typical of CHF. Metallic density al carmina the left descending thoracic aorta of indeterminate etiology but stable from 02/12/2019. IMPRESSION: 1. Correlate for CHF. Underlying pneumonia not excluded
[2020-06-10] MEDS: AMIODARONE 100 MG TAB PO SCH (08:34)
[2020-06-10] MEDS: GABAPENTIN 300 MG CAP PO SCH ×2 (08:34→20:41)
[2020-06-10] MEDS: CHOLECALCIFEROL 25 MCG (1000 IU) TABLET PO SCH (08:34)
[2020-06-10] MEDS: ASPIRIN 81 MG PO SCH (08:34)
[2020-06-10] MEDS: CLOPIDOGREL 75 MG TAB PO SCH (08:34)
[2020-06-10] MEDS: FUROSEMIDE 80 MG TAB PO SCH ×2 (08:34→15:56)
[2020-06-10] MEDS: EZETIMIBE 10 MG TAB PO SCH (08:34)
[2020-06-10] MEDS: FERROUS SULFATE 325 MG TAB PO SCH (08:34)
[2020-06-10] MEDS: DULoxetine HCL 60 MG CAPSULE.DR PO SCH (08:34)
[2020-06-10] MEDS: metOLazone 5 MG TAB PO SCH ×2 (08:35→20:42)
[2020-06-10] MEDS: HEPARIN SODIUM,PORCINE 5,000 UNIT/ML 1 ML VIAL SQ SCH ×2 (08:35→20:41)
[2020-06-10] MEDS: PANTOPRAZOLE 40 MG/10 ML VIAL IVP SCH (08:35)
[2020-06-10] MEDS: METOPROLOL SUCCINATE (ER) 50 MG TAB.ER.24H PO SCH (08:35)
--- NOTE | 2020-06-10 08:58 | P.PN ---
Subjective Progress Note Date: 06/10/20 74-year-old white female patient with extensive medical history including paroxysmal atrial fibrillation, coronary artery disease with previous stenting, aortic stenosis status post LAXMI, hypertension, hyperlipidemia, diabetes mellitus type 2, end-stage renal disease on hemodialysis 3 times a week through the AV fistula in the left upper extremity, peripheral neuropathy, chronic anemia, obstructive sleep apnea on CPAP therapy with a pressure of 12 cm of water, morbid obesity, chronic back pain, previous episode of MRSA infection. Patient had a recurrent urinary tract infections since December 2019 and was on multiple rounds of antibiotics. She was just started on Bactrim yesterday on an outpatient basis. Her urine cultures from December, March, and March were all positive for E. coli, however the urine culture from 06/04/2020 was positive for E. coli and Klebsiella oxytoca, but both were sensitive to Bactrim. Patient presents to the emergency department on 06/09/2020 for evaluation of worsening shortness of breath that has progressed over a period of last few days. Patient has been using her CPAP unit at home, she reports occasional cough, but no chest pain. She reports being very fatigued. Chest x-ray showed low lung volumes and cardiomegaly with stent graft in the aortic root along with ectatic thoracic aorta, there was a new mild to moderate central vascular congestion and small bilateral pleural effusions. CT angios of the chest showed findings suggestive of heart failure with bilateral pleural effusions and atelectatic changes at the dependent portions of the lung, bilateral groundglass opacity, indeterminate pulmonary nodule measuring 7-8 mm, no CT evidence for pulmonary embolism, physical to exclude small subsegmental pulmonary emboli. Lab data reveals white blood cell count of 14.5, hemoglobin of 11.2, sodium is 131, potassium is 5.7, chloride is 87, CO2 is 20, BUN is 70, creatinine is 6.86, proBNP was 2100, troponin was less than 0.012, alkaline phosphatase was elevated at 197, AST and ALT were within normal limits, urinalysis showed large amount of blood, 2+ protein, large amount of leuks, white blood cells in moderate bacteria, urine culture was sent, patient was started on Unasyn, she also received a dose of Levaquin, coronavirus PCR was negative. Patient is seen in the emergency department currently on BiPAP support with pressures of 10/5 and FiO2 of 35% and a pulse ox is 97%, patient is laying flat on the gurney, she has moderate shortness of breath, no acute distress, echocardiogram has been ordered, nephrology consultation has been ordered for possibility of hemodialysis treatment today. Blood and urine cultures have been ordered and are pending at this time. Echocardiogram is ordered, in view of patient's complex medical history patient will be per to the intensive care unit for closer monitoring. On 06/10/2020 patient seen in follow-up in intensive care unit, yesterday she was dialyzed with removal of 2.2 L fluid, she is breathing easier, she is off BiPAP support, currently on 4-5 L of oxygen, and her pulse ox is 96%, hemodynamically she stable, not on any vasopressor support, she is in sinus mechanism with a rate of 91 BPM, she is on 0.9 normal saline at a rate of 10 ML per hour, she is on Unasyn for antibiotic coverage, cultures are pending, urine culture pending, patient has been afebrile overnight. Altered mentation, she is sitting up in bed this morning, she is tolerating oral intake, no nausea vo miting or diarrhea, no altered mentation, sounds reveal diminished breath sounds at the bases, chest x-ray bibasilar consolidation pleural effusions, and the pattern typical of CHF. 7 reviewed, showing white blood cell count of 9.5, hemoglobin is 9.7, serum sodium is 1:30, potassium is 4.8, is 90, BUN is 50 and creatinine is 5.89. Specific complaints this morning, she is calm and comfortable, breathing comfortably, no cough congestion or phlegm production. Objective - Vital Signs Vital signs: Vital Signs Temp 98.1 F 06/10/20 04:00 Pulse 86 06/10/20 07:00 Resp 22 06/10/20 07:00 BP 149/53 06/10/20 07:00 Pulse Ox 94 L 06/10/20 07:36 Intake & Output 06/09/20 06/10/20 06/10/20 18:59 06:59 18:59 Intake Total 222 150 Output Total 145 2560 5 Balance 77 -2410 -5 Weight 88.451 kg 88.3 kg Intake: IV 150 Ampicillin-Sulbactam 1.5 150 gm In Sodium Chloride 0.9 % 50 ml @ 100 mls/hr IVPB Q6HR [facility] Rx#:[id number] Oral 222 Output: Urine 145 60 5 Uretheral (Levy) 35 Hemodialysis 2500 Other: Voiding Method Indwelling Catheter Indwelling Catheter - Exam GENERAL EXAM: Alert, very pleasant, 74-year-old white female, currently off BiPAP support with pressures of 10/5 and FiO2 of 35%, and a nasal cannula at 4 L/m with a pulse ox of 96%, resting comfortably in the bed in the intensive care unit breathing comfortably HEAD: Normocephalic/atraumatic. EYES: Normal reaction of pupils, equal size. Conjunctiva pink, sclera white. NOSE: Clear with pink turbinates. THROAT: No erythema or exudates. NECK: No masses, no JVD, no thyroid enlargement, no adenopathy. CHEST: No chest wall deformity. Symmetrical expansion. LUNGS: Equal air entry with diminished breath sounds and bibasilar crackles CVS: Regular rate and rhythm, normal S1 and S2, no gallops, no murmurs, no rubs ABDOMEN: Soft, nontender. No hepatosplenomegaly, normal bowel sounds, no guarding or rigidity. EXTREMITIES: No clubbing, no edema, no cyanosis, 2+ pulses and upper and lower extremities. MUSCULOSKELETAL: Muscle strength and tone normal. Left upper arm AV fistula SPINE: No scoliosis or deformity SKIN: No rashes CENTRAL NERVOUS SYSTEM: Alert and oriented -3. No focal deficits, tone is normal in all 4 extremities. PSYCHIATRIC: Alert and oriented -3. Appropriate affect. Intact judgment and insight. - Labs CBC & Chem 7: 06/10/20 03:12 06/10/20 03:12 Labs: Abnormal Lab Results - Last 24 Hours (Table) 06/09/20 06/09/20 06/09/20 Range/Units 09:43 09:43 09:43 WBC 14.5 H (3.8-10.6) k/uL RBC 3.34 L (3.80-5.40) m/uL Hgb 11.2 L (11.4-16.0) gm/dL Hct (34.0-46.0) % MCV 104.2 H (80.0-100.0) fL Neutrophils # 11.9 H (1.3-7.7) k/uL Lymphocytes # (1.0-4.8) k/uL Sodium 131 L (137-145) mmol/L Potassium 5.7 H (3.5-5.1) mmol/L Chloride 87 L (98-107) mmol/L Carbon Dioxide 20 L (22-30) mmol/L BUN 70 H (7-17) mg/dL Creatinine 6.86 H (0.52-1.04) mg/dL Glucose 188 H (74-99) mg/dL POC Glucose (mg/dL) (75-99) mg/dL Phosphorus (2.5-4.5) mg/dL Magnesium 3.0 H (1.6-2.3) mg/dL Alkaline Phosphatase 197 H (38-126) U/L C-Reactive Protein 22.4 H (<10.0) mg/L Total Protein 8.4 H (6.3-8.2) g/dL TSH (0.465-4.680) mIU/L Urine Appearance (Clear) Urine Protein (Negative) Urine Blood (Negative) Ur Leukocyte Esterase (Negative) Urine RBC (0-5) /hpf Urine WBC (0-5) /hpf Urine WBC Clumps (None) /hpf Urine Bacteria (None) /hpf Urine Mucus (None) /hpf 06/09/20 06/09/20 06/09/20 Range/Units 10:05 15:33 20:20 WBC (3.8-10.6) k/uL RBC (3.80-5.40) m/uL Hgb (11.4-16.0) gm/dL Hct (34.0-46.0) % MCV (80.0-100.0) fL Neutrophils # (1.3-7.7) k/uL Lymphocytes # (1.0-4.8) k/uL Sodium (137-145) mmol/L Potassium (3.5-5.1) mmol/L Chloride (98-107) mmol/L Carbon Dioxide (22-30) mmol/L BUN (7-17) mg/dL Creatinine (0.52-1.04) mg/dL Glucose (74-99) mg/dL POC Glucose (mg/dL) 174 H 147 H (75-99) mg/dL Phosphorus (2.5-4.5) mg/dL Magnesium (1.6-2.3) mg/dL Alkaline Phosphatase (38-126) U/L C-Reactive Protein (<10.0) mg/L Total Protein (6.3-8.2) g/dL TSH (0.465-4.680) mIU/L Urine Appearance Turbid H (Clear) Urine Protein 2+ H (Negative) Urine Blood Large H (Negative) Ur Leukocyte Esterase Large H (Negative) Urine RBC >182 H (0-5) /hpf Urine WBC >182 H (0-5) /hpf Urine WBC Clumps Many H (None) /hpf Urine Bacteria Moderate H (None) /hpf Urine Mucus Rare H (None) /hpf 06/10/20 06/10/20 06/10/20 Range/Units 03:12 03:12 06:47 WBC (3.8-10.6) k/uL RBC 2.92 L (3.80-5.40) m/uL Hgb 9.7 L D (11.4-16.0) gm/dL Hct 30.3 L (34.0-46.0) % MCV 103.7 H (80.0-100.0) fL Neutrophils # 8.0 H (1.3-7.7) k/uL Lymphocytes # 0.7 L (1.0-4.8) k/uL Sodium 130 L (137-145) mmol/L Potassium (3.5-5.1) mmol/L Chloride 90 L (98-107) mmol/L Carbon Dioxide (22-30) mmol/L BUN 50 H (7-17) mg/dL Creatinine 5.89 H (0.52-1.04) mg/dL Glucose 135 H (74-99) mg/dL POC Glucose (mg/dL) 144 H (75-99) mg/dL Phosphorus 6.0 H (2.5-4.5) mg/dL Magnesium (1.6-2.3) mg/dL Alkaline Phosphatase 167 H (38-126) U/L C-Reactive Protein (<10.0) mg/L Total Protein (6.3-8.2) g/dL TSH 0.186 L (0.465-4.680) mIU/L Urine Appearance (Clear) Urine Protein (Negative) Urine Blood (Negative) Ur Leukocyte Esterase (Negative) Urine RBC (0-5) /hpf Urine WBC (0-5) /hpf Urine WBC Clumps (None) /hpf Urine Bacteria (None) /hpf Urine Mucus (None) /hpf Microbiology - Last 24 Hours (Table) 06/09/20 10:05 Urine Culture - Preliminary Urine,Voided Assessment and Plan Plan: Assessment: #1. Acute on chronic hypoxic respiratory failure related to acute exacerbation of CHF with diastolic dysfunction, COVID 19 was ruled out, chest x-ray findings showed central vascular congestion and small bilateral pleural effusions, CTA chest showed no evidence of pulmonary embolism, although it was difficult to exclude small subsegmental pulmonary emboli. Lung windows showed findings sugge stive of heart failure with bilateral pleural effusions and bilateral groundglass opacity. #2. Recurrent urinary tract infection, since December 2019. Most recently urine culture from 06/04/2020 positive for E. coli and Klebsiella oxytoca, was started on Bactrim on an outpatient basis, currently on Unasyn #3. End-stage renal disease on hemodialysis #4. Paroxysmal atrial fibrillation, not on any chronic anticoagulation, currently in sinus mechanism #5. History of aortic valve stenosis status post LAXMI in 2018 #6. History of coronary artery disease with previous stenting #7. History of diastolic CHF #8. History of COPD on home oxygen at 2 L #9. History obstructive sleep apnea on CPAP at 12 cm of water #10. Previous history of pneumonia #11. History of GI bleeding #12. Previous history of myocardial infarction #13. Diabetes mellitus type 2 #14. GERD/reflux #15. Please history of MRSA infection #16. Chronic back pain with history of several back surgeries #17. History of peripheral vascular occlusive disease with previous intervention Plan: We will, off BiPAP support, she may continue using BiPAP support at bedtime and as needed, wean down FiO2 set at 92% or better. She is breathing comfortably, she is able to lay flat, no compressive chest pain, afebrile, still awaiting results of blood and urine cultures, hemodynamically stable, awaiting results of the echocardiogram, patient is stable to transfer out of intensive care unit today to selective care unit. Continue current antibiotics. I performed a history & physical examination of the patient and discussed their management with my nurse practitioner, Pinky Salas. I reviewed the nurse practitioner's note and agree with the documented findings and plan of care. Lung sounds are positive for diminished breath sounds. The findings and the impression was discussed with the patient. I attest to the documentation by the nurse practitioner. Time with Patient: Less than 30
[2020-06-10 10:05] VITALS: BMI 35.6
--- NOTE | 2020-06-10 10:55 | ECHOF ---
Referral Reason:shortness of breath, Hx of TAVR MEASUREMENTS -------- HEIGHT: 157.5 cm WEIGHT: 88.5 kg BP: 154/55 RVIDd: 3.2 cm (< 3.3) IVSd: 1.6 cm (0.6 - 1.1) LVIDd: 3.9 cm (3.9 - 5.3) LVPWd: 1.5 cm (0.6 - 1.1) IVSs: 2.1 cm LVIDs: 2.6 cm LVPWs: 1.7 cm LA Diam: 4.5 cm (2.7 - 3.8) Ao Diam: 2.8 cm (2.0 - 3.7) MV EXCURSION: 7.983 mm (> 18.000) MV EF SLOPE: 51 mm/s (70 - 150) EPSS: 0.7 cm MV E Yared: 1.90 m/s MV DecT: 267 ms MV A Yared: 1.17 m/s MV E/A Ratio: 1.63 AV maxP.79 mmHg AV meanP.63 mmHg RAP: 15.00 mmHg RVSP: 72.48 mmHg FINDINGS -------- Sinus rhythm. This was a technically difficult study with suboptimal views. The left ventricular size is normal. There is moderate concentric left ventricular hypertrophy. O verall left ventricular systolic function is normal with, an EF between 55 - 60 %. The right ventricle is normal in size. The left atrium is moderately dilated. The right atrial size is normal. Lumason used Interatrial and interventricular septum intact. Peak/mean gradient across the Aortic Valve is 26.79mmHg / 14.63mmHg. TAVR procedure done 2019 Moderate mitral annular calcification present. Yedb-[id number] mitral regurgitation is present. The peak and mean MV gradients are 23.62mmHg 8.20mmHg as measured by doppler. Moderate mitral sten osis. Moderate to severe tricuspid regurgitation present. There is severe pulmonary hypertension. The r ight ventricular systolic pressure, as measured by Doppler, is 72.48mmHg. Trace/mild (physiologic) pulmonic regurgitation. The aortic root size is normal. The inferior vena cava is dilated with no significant inspiratory collapse which is consistent estima carlos right atrial pressure of >15 mmHg. There is no pericardial effusion. CONCLUSIONS -------- 1. This was a technically difficult study with suboptimal views. 2. There is moderate concentric left ventricular hypertrophy. 3. Overall left ventricular systolic function is normal with, an EF between 55 - 60 %. 4. The left atrium is moderately dilated. 5. Lumason used 6. Peak/mean gradient across the Aortic Valve is 26.79mmHg / 14.63mmHg. 7. TAVR procedure done 2019 8. Moderate mitral annular calcification present. 9. Hfng-sb-nqqjyqzg mitral regurgitation is present. 10. The peak and mean MV gradients are 23.62mmHg 8.20mmHg as measured by doppler. 11. Moderate mitral stenosis. 12. Moderate to severe tricuspid regurgitation present. 13. There is severe pulmonary hypertension. 14. Trace/mild (physiologic) pulmonic regurgitation. 15. The inferior vena cava is dilated with no significant inspiratory collapse which is consistent es timated right atrial pressure of >15 mmHg. 16. There is no pericardial effusion. HOOP [employer]ENDER TANK: Elisa Villaseñor RDCS
[2020-06-10 12:13] LABS: Glucose,Whole Blood 177 mg/dL (75-99)
[2020-06-10] MEDS: INSULIN ASPART (NovoLOG) 100 UNIT/ML VIAL SQ SCH ×2 (12:13→18:00)
--- NOTE | 2020-06-10 13:02 | P.PN ---
Subjective Progress Note Date: 06/10/20 HISTORY OF PRESENT ILLNESS This is a 74-year-old female patient of Dr. Farias with past medical history of proximal atrial fibrillation, coronary artery disease status post ND, chronic diastolic heart failure, diabetes, hyperlipidemia, hypertension, hypertensive cardiovascular disease, end-stage renal disease on hemodialysis, aortic stenosis status post TAVR in 2018. Patient reports she was being treated for urinary tract infection by the nurse practitioner at [facility] 05/22 had cysstostcopy done for recurrent UIT, 2 days later had hematuria and was given bactrim for klebsiella and ecoli uti on 06/07/2020. she is on prophylactic macrobid and manderlamin,e. 1.5 wkeeks ago she now requiring daytime o2 for which she normlally dpoes not require. she has increasing shortenss of breath and idfficultuy in breathing, no edmea, no aspiration, she is dialyzed tths and is at at her current dry weight. she requires cpap at night with o2 being provided every bedtime. ER felt that Patient is a pleasant 74-year-old female presenting to the emergency Department with complaints of difficulty in breathing. Symptoms have progressed with the past few days. Patient has had multiple severe recent problems with urinary tract infection. Patient had culture returned yesterday with Klebsiella and E. coli. Questionable history of COPD. Patient has been using CPAP at home frequently and has been fatigued. Occasional cough.Patient is due today for dialysis. she was evaluated by myself in the ER hshe has abdominal breathing and accessory and breathing muscle use, and tachypnea, cta pe protocol imaging studies, with consult to see dr zhang, echo cardiogram, kaci mesa wer sent, urine is scant in roy cath, IV antibotic for now empiric till cultures, . last urine cultures reviewed, klebsiella and E. coli pansensitive except for klebsiella resistant to ampicillin, and cefazolin patient is is on IV Levaquin, transferred to ICU secondary distress, required BiPAP support pressures of 10/5, FiO2 35%, IV Zosyn pending cultures. 06/10: Patient remains in the intensive care unit. She underwent hemodialysis yesterday with removal of 2.2 L of fluid. She is on her normal Monday, , Monday schedule. She is scheduled to leave the intensive care unit to the [facility] floor with telemetry. Repeat blood work reveals W BC 9.5, hemoglobin 9.7, platelet count 201. Sodium 130, potassium 4.8, chloride 90, CO2 25, BUN 15 creatinine 5.89. Blood sugar 135. Capillary blood glucose running between 144 and 177. TSH 0.186. Patient is afebrile, heart rate 89, blood pressure 145/59, pulse ox 96% on 4 L nasal cannula. Urine culture is gram- negative bacilli. Chest x-ray this morning reveals correlate for heart failure. Underlying pneumonia not excluded. Echocardiogram reveals moderate mitral stenosis, moderate to severe tricuspid regurgitation, severe pulmonary hypertension. Inferior vena cava is dilated. REVIEW OF SYSTEMS Constitutional: No fever, no chills, no night sweats. No weight change. No weakness, fatigue or lethargy. No daytime sleepiness. EENT: No headache. No blurred vision or double vision, no loss of vision. No loss of Hearing, no ringing in the ears, no dizziness. No nasal drainage or congestion. No epistaxis. No sore throat. Lungs: No shortness of breath, cough, no sputum production. No wheezing. Cardiovascular: No chest pain, no lower extremity edema. No palpitations. No paroxysmal nocturnal dyspnea. No orthopnea. No lightheadedness or dizziness. No syncopal episodes. Abdominal: No abdominal pain. No nausea, vomiting. No diarrhea. No constipation. No bloody or tarry stools.. No loss of appetite. Genitourinary: No dysuria, increased frequency, urgency. No urinary retention. Musculoskeletal: No myalgias. No muscle weakness, no gait dysfunction, no frequent falls. No back pain. No neck pain. Integumentary: No wounds, no lesions. No rash or pruritus. No unusual bruisi ng. No change in hair or nails. Neurologic: No aphasia. No facial droop. No change in mentation. No head injury. No headache. No paralysis. No paresthesia. Psychiatric: No depression. No anxiety. No mood swings. Endocrine: No abnormal blood sugars. No weight change. No excessive sweating or thirst. No cold intolerance. PHYSICAL EXAMINATION Gen: This is an obese 74-year-old female. She is resting in the ICU bed and appears to be comfortable. No acute respiratory distress noted. HEENT: Head is atraumatic, normocephalic. Pupils equal, round. Sclerae is anicteric. NECK: Supple. No JVD. No lymphadenopathy. No thyromegaly. LUNGS: Diminished bilaterally. No intercostal retractions. HEART: Regular rate and rhythm. No murmur. ABDOMEN: Soft. Bowel sounds are present. No masses. No tenderness. EXTREMITIES: No pedal edema. No calf tenderness. NEUROLOGICAL: Patient is awake, alert and oriented x3. Cranial nerves 2 through 12 are grossly intact. ASSESSMENT AND PLAN 1. Acute hypoxic respiratory failure requiring BiPAP initially, currently on 4 L nasal cannula, secondary to acute diastolic heart failure, CTA showed no pulmonary emboli, however cannot rule out subsegmental pulmonary embolism, has bilateral pleural effusion, and CHF., Ruled out covid Infection 2. Bilateral pleural effusion, small. Pulmonary medicine planning for thoracentesis. 3 Recurrent UTI, status post cystoscopy, by Dr. Borrego, cultures are obtained, growing E. coli and klebsiella during last cultures, IV Zosyn, pending new urine cultures and blood cultures on chronic prophylactic antibiotics including nitrofurantoin and Mandelamine 4 Oliguria secondary to end-stage kidney disease, still making 400 mL per day, consult with nephrology, on hemodialysis 5 End-stage renal disease on hemodialysis Monday and Monday, 6 Chronic diastolic heart failure. Continue hemodialysis. Continue home dose of Lasix at 80 mg twice daily as well as metoprolol 50 mg Monday, and metolazone 5 mg twice a day 7 History of aortic stenosis status post TAVR. 8 Hypertension cardiovascular disease. Continue amiodarone 100 mg daily and metoprolol. 10 Paroxysmal atrial fibrillation. Continue amiodarone 100 mg once daily and metoprolol a history of GI bleed no past several years ago, not on any anticoagulation secondary to that. 11 History of myocardial infarction and coronary artery disease status post LAD stent in July 2017 and left circumflex in August 2017. Continue Toprol-XL 50 mg once daily, and Plavix 12 Diabetes mellitus type 2, insulin requiring. Continue insulin sliding scale. 13 GERD continue Protonix. 14 History of hyperlipidemia continue Zetia 10mg daily 15 Obstructive sleep apnea, on CPAP machine at night, along with O2 supplementation 16. Diabetic peripheral neuropathy continue gabapentin 300 mg twice daily. 17. Recurrent depression. Continue Cymbalta 60 mg orally once daily DVT prophylaxis. Continue bilateral knee-high TERRIE hose and SCDs GI prophylaxis continue Protonix. DISCHARGE PLAN To be determined. Impression and plan of care have been directed as dictated by the signing physician. Jessenia Gonzalez nurse practitioner acting as scribe for signing physician. Objective - Vital Signs Vital signs: Vital Signs Temp 97.5 F L 06/10/20 08:00 Pulse 90 06/10/20 09:00 Resp 23 06/10/20 09:00 BP 154/65 06/10/20 09:00 Pulse Ox 97 06/10/20 09:00 Intake & Output 06/09/20 06/10/20 06/10/20 18:59 06:59 18:59 Intake Total 222 150 258 Output Total 145 2560 15 Balance 77 -2410 243 Weight 88.451 kg 88.3 kg Intake: IV 150 20 .9 KVO 20 Ampicillin-Sulbactam 1.5 150 gm In Sodium Chloride 0.9 % 50 ml @ 100 mls/hr IVPB Q6HR [facility] Rx#:[id number] Oral 222 238 Output: Urine 145 60 15 Uretheral (Roy) 35 Hemodialysis 2500 Other: Voiding Method Indwelling Catheter Indwelling Catheter Indwelling Catheter - Labs CBC & Chem 7: 06/10/20 03:12 06/10/20 03:12 Labs: Abnormal Lab Results - Last 24 Hours (Table) 06/09/20 06/09/20 06/09/20 Range/Units 09:43 15:33 20:20 RBC (3.80-5.40) m/uL Hgb (11.4-16.0) gm/dL Hct (34.0-46.0) % MCV (80.0-100.0) fL Neutrophils # (1.3-7.7) k/uL Lymphocytes # (1.0-4.8) k/uL Sodium (137-145) mmol/L Chloride (98-107) mmol/L BUN (7-17) mg/dL Creatinine (0.52-1.04) mg/dL Glucose (74-99) mg/dL POC Glucose (mg/dL) 174 H 147 H (75-99) mg/dL Phosphorus (2.5-4.5) mg/dL Magnesium 3.0 H (1.6-2.3) mg/dL Alkaline Phosphatase (38-126) U/L TSH (0.465-4.680) mIU/L 06/10/20 06/10/20 06/10/20 Range/Units 03:12 03:12 06:47 RBC 2.92 L (3.80-5.40) m/uL Hgb 9.7 L D (11.4-16.0) gm/dL Hct 30.3 L (34.0-46.0) % MCV 103.7 H (80.0-100.0) fL Neutrophils # 8.0 H (1.3-7.7) k/uL Lymphocytes # 0.7 L (1.0-4.8) k/uL Sodium 130 L (137-145) mmol/L Chloride 90 L (98-107) mmol/L BUN 50 H (7-17) mg/dL Creatinine 5.89 H (0.52-1.04) mg/dL Glucose 135 H (74-99) mg/dL POC Glucose (mg/dL) 144 H (75-99) mg/dL Phosphorus 6.0 H (2.5-4.5) mg/dL Magnesium (1.6-2.3) mg/dL Alkaline Phosphatase 167 H (38-126) U/L TSH 0.186 L (0.465-4.680) mIU/L Microbiology - Last 24 Hours (Table) 06/09/20 10:05 Urine Culture - Preliminary Urine,Voided
[2020-06-10] MEDS ORDERED: DARBEPOETIN ALFA 40 MCG/0.4 ML SYRINGE SQ SCH (14:00)
--- NOTE | 2020-06-10 15:55 | CONS ---
CONSULTATION REASON FOR CONSULTATION: End-stage renal disease. HISTORY OF PRESENT ILLNESS: The patient is a 74-year-old female with end-stage renal disease, on hemodialysis on a Monday, , Monday schedule. Patient was admitted to the hospital with complaints of increasing shortness of breath. She did not miss her dialysis treatments. She did not have any fever. She had some cough. The patient had a chest CTA done yesterday on admission which showed evidence of CHF and possible pneumonia. The patient was dialyzed yesterday. She had about 2.5 L of fluid removed. She is feeling better. Patient is also maintained on antibiotics. Her UA showed evidence of significant pyuria and urine culture is growing Gram-negative bacilli. PAST MEDICAL HISTORY: End-stage renal disease, anemia of chronic disease, coronary artery disease, COPD, CKD mineral bone disorder, atrial fibrillation, CHF, mostly diastolic dysfunction, hyperlipidemia, history of PA, history of pneumonia, peripheral vascular disease, obstructive sleep apnea, history of TAVR. PAST SURGICAL HISTORY: Back surgery, cholecystectomy, cardiac catheterization, coronary stent placement, hysterectomy, PCI, TAVR in [address] Rock at [facility], AV fistula for dialysis with previous interventions. SOCIAL HISTORY: Negative for smoking, drug abuse or alcohol abuse. MEDICATIONS: Medications include Cymbalta, Pacerone, Zetia, Neurontin, vitamin D, omeprazole, magnesium, Plavix, midodrine, aspirin, Zaroxolyn, Lasix, insulin, Toprol, Renvela, iron, Bactrim. ALLERGIES: ALLERGIES include KUSHAL INHIBITORS AND ARBS, which cause swelling. KEFLEX causes rash and hives. STATINS cause myalgias. DARVON causes hallucinations. REVIEW OF SYSTEMS: As per HPI. Other systems negative. PHYSICAL EXAMINATION: Patient is comfortable, awake, alert, oriented x3, not in any acute distress. Blood pressure was 145/59, heart rate 89 per minute. She is afebrile. EXAMINATION OF THE HEART: S1 and S2. EXAMINATION OF LUNGS: Bilateral breath sounds are heard. Decreased breath sounds at bases. ABDOMEN: Soft, non-tender. Examination of lower extremities shows no evidence of edema. [employer] SUPERVISOR exam is grossly intact. LABS: Labs show hemoglobin 9.7, sodium 130, potassium 4.8, BUN 50, creatinine 5.89. ASSESSMENT: 1. End-stage renal disease, on hemodialysis on a Monday, , Monday schedule. 2. Fluid overload, status post dialysis yesterday. We will dialyze her again today for increased UF. 3. Acute hypoxic respiratory failure secondary to fluid overload. 4. Possible pneumonia, although I doubt it. 5. Urinary tract infection with urine culture growing Gram-negative bacilli. Patient does not have any significant urine output. I will discontinue the Levy catheter. 6. Anemia of chronic disease. PLAN: Maintain patient on Aranesp. Repeat hemodialysis today and then patient will be dialyzed again tomorrow. Continue phosphate binders. Discontinue Levy catheter. MMODL / IJN: [id number] /
[2020-06-10 17:09] LABS: Glucose,Whole Blood 119 mg/dL (75-99)
[2020-06-10 20:45] LABS: Glucose,Whole Blood 165 mg/dL (75-99)
[2020-06-10] MEDS: INSULIN DETEMIR (LEVEMIR) 100 UNIT/ML SYR SQ SCH (20:48)
[2020-06-11] MEDS: AMPICILLIN-SULBACTAM 1.5 GM in SODIUM CHLORIDE 0.9% 50 ML IVPB SCH ×2 (01:39→16:30)
[2020-06-11] MEDS: SEVELAMER 800 MG TAB PO SCH (07:00)
[2020-06-11 07:12] LABS: Glucose,Whole Blood 111 mg/dL (75-99)
[2020-06-11] MEDS: INSULIN ASPART (NovoLOG) 100 UNIT/ML VIAL SQ SCH ×3 (07:17→17:44)
[2020-06-11] MEDS: INSULIN DETEMIR (LEVEMIR) 100 UNIT/ML SYR SQ SCH ×2 (07:18→20:58)
[2020-06-11] MEDS: HEPARIN SODIUM,PORCINE 5,000 UNIT/ML 1 ML VIAL SQ SCH ×2 (09:00→20:58)
[2020-06-11] MEDS: ACETAMINOPHEN TAB 325 MG TAB PO PRN (12:10)
[2020-06-11 12:11] LABS: Glucose,Whole Blood 92 mg/dL (75-99)
--- NOTE | 2020-06-11 12:15 | P.PN ---
Subjective Progress Note Date: 06/11/20 HISTORY OF PRESENT ILLNESS This is a 74-year-old female patient of Dr. Farias with past medical history of proximal atrial fibrillation, coronary artery disease status post IA, chronic diastolic heart failure, diabetes, hyperlipidemia, hypertension, hypertensive cardiovascular disease, end-stage renal disease on hemodialysis, aortic stenosis status post TAVR in 2018. Patient reports she was being treated for urinary tract infection by the nurse practitioner at [facility] 05/22 had cysstostcopy done for recurrent UIT, 2 days later had hematuria and was given bactrim for klebsiella and ecoli uti on 06/07/2020. she is on prophylactic macrobid and manderlamin,e. 1.5 wkeeks ago she now requiring daytime o2 for which she normlally dpoes not require. she has increasing shortenss of breath and idfficultuy in breathing, no edmea, no aspiration, she is dialyzed tths and is at at her current dry weight. she requires cpap at night with o2 being provided every bedtime. ER felt that Patient is a pleasant 74-year-old female presenting to the emergency Department with complaints of difficulty in breathing. Symptoms have progressed with the past few days. Patient has had multiple severe recent problems with urinary tract infection. Patient had culture returned yesterday with Klebsiella and E. coli. Questionable history of COPD. Patient has been using CPAP at home frequently and has been fatigued. Occasional cough.Patient is due today for dialysis. she was evaluated by myself in the ER hshe has abdominal breathing and accessory and breathing muscle use, and tachypnea, cta pe protocol imaging studies, with consult to see dr zhang, echo cardiogram, kaci mesa wer sent, urine is scant in roy cath, IV antibotic for now empiric till cultures, . last urine cultures reviewed, klebsiella and E. coli pansensitive except for klebsiella resistant to ampicillin, and cefazolin patient is is on IV Levaquin, transferred to ICU secondary distress, required BiPAP support pressures of 10/5, FiO2 35%, IV Zosyn pending cultures. 06/10: Patient remains in the intensive care unit. She underwent hemodialysis yesterday with removal of 2.2 L of fluid. She is on her normal Monday, , Monday schedule. She is scheduled to leave the intensive care unit to the [facility] floor with telemetry. Repeat blood work reveals W BC 9.5, hemoglobin 9.7, platelet count 201. Sodium 130, potassium 4.8, chloride 90, CO2 25, BUN 15 creatinine 5.89. Blood sugar 135. Capillary blood glucose running between 144 and 177. TSH 0.186. Patient is afebrile, heart rate 89, blood pressure 145/59, pulse ox 96% on 4 L nasal cannula. Urine culture is gram- negative bacilli. Chest x-ray this morning reveals correlate for heart failure. Underlying pneumonia not excluded. Echocardiogram reveals moderate mitral stenosis, moderate to severe tricuspid regurgitation, severe pulmonary hypertension. Inferior vena cava is dilated. 06/11: Patient is seen today on the cardiac stepdown unit. She states that she was feeling better when she woke up today. She is scheduled for hemodialysis today. Patient is currently on a BiPAP but has been on nasal cannula during the day. She states she has decreased appetite. No nausea. Urine culture is gram- negative bacilli. Blood cultures showing no growth after 24 hours. Patient is afebrile, heart rate 80, blood pressure 165/67, pulse ox 99% on BiPAP. Blood sugars running between 111 and 165. REVIEW OF SYSTEMS Constitutional: No fever, no chills, no night sweats. No weight change. No weakness, fatigue or lethargy. No daytime sleepiness. EENT: No headache. No blurred vision or double vision, no loss of vision. No loss of Hearing, no ringing in the ears, no dizziness. No epistaxis. No sore throat. Lungs: Reports mild shortness of breath, cough, improving, no sputum production. No wheezing. Cardiovascular: No chest pain, no lower extremity edema. No palpitations. No paroxysmal nocturnal dyspnea. No orthopnea. No lightheadedness or dizziness. No syncopal episodes. Abdominal: No abdominal pain. No nausea, vomiting. No diarrhea. No constipation. No bloody or tarry stools.. No loss of appetite. Genitourinary: No dysuria, increased frequency, urgency. No urinary retention. Musculoskeletal: No myalgias. No muscle weakness, no gait dysfunction, no frequent falls. No back pain. No neck pain. Integumentary: No wounds, no lesions. No rash or pruritus. No unusual bruisi ng. No change in hair or nails. Neurologic: No aphasia. No facial droop. No change in mentation. No head injury. No headache. No paralysis. No paresthesia. Psychiatric: No depression. No anxiety. No mood swings. Endocrine: No abnormal blood sugars. No weight change. No excessive sweating or thirst. No cold intolerance. PHYSICAL EXAMINATION Gen: This is an obese 74-year-old female. She is resting in bed and appears to be comfortable. No acute respiratory distress noted. HEENT: Head is atraumatic, normocephalic. Pupils equal, round. Sclerae is anicte gonzalo. NECK: Supple. No JVD. No lymphadenopathy. No thyromegaly. LUNGS: Diminished bilaterally. No intercostal retractions. HEART: Regular rate and rhythm. No murmur. ABDOMEN: Soft. Bowel sounds are present. No masses. No tenderness. EXTREMITIES: No pedal edema. No calf tenderness. NEUROLOGICAL: Patient is awake, alert and oriented x3. Cranial nerves 2 through 12 are grossly intact. ASSESSMENT AND PLAN 1. Acute hypoxic respiratory failure requiring BiPAP initially, secondary to acute diastolic heart failure, CTA showed no pulmonary emboli, however cannot rule out subsegmental pulmonary embolism, has bilateral pleural effusion, and CHF., Ruled out covid Infection. Patient is currently on Unasyn, Lasix 80 mg oral twice daily, Zaroxolyn 5 mg twice daily. 2. Bilateral pleural effusion, small. Pulmonary medicine not planning for thoracentesis. 3 Recurrent UTI, status post cystoscopy, by Dr. Borrego, cultures are obtained, growing E. coli and klebsiella during last cultures, IV Unasyn, pending new urine cultures and blood cultures on chronic prophylactic antibiotics including nitrofurantoin and Mandelamine 4 Oliguria secondary to end-stage kidney disease, still making 400 mL per day, consult with nephrology, on hemodialysis 5 End-stage renal disease on hemodialysis Monday and Monday, 6 Chronic diastolic heart failure. Continue hemodialysis. Continue home dose of Lasix at 80 mg twice daily as well as metoprolol 50 mg Monday, and metolazone 5 mg twice a day 7 History of aortic stenosis status post TAVR. 8 Hypertension cardiovascular disease. Continue amiodarone 100 mg daily and metoprolol. 10 Paroxysmal atrial fibrillation. Continue amiodarone 100 mg once daily and metoprolol a history of GI bleed no past several years ago, not on any anticoagulation secondary to that. 11 History of myocardial infarction and coronary artery disease status post LAD stent in July 2017 and left circumflex in August 2017. Continue Toprol-XL 50 mg once daily, and Plavix 12 Diabetes mellitus type 2, insulin requiring. Continue insulin sliding scale. 13 GERD continue Protonix. 14 History of hyperlipidemia continue Zetia 10mg daily 15 Obstructive sleep apnea, on CPAP machine at night, along with O2 supplementation 16. Diabetic peripheral neuropathy continue gabapentin 300 mg twice daily. 17. Recurrent depression. Continue Cymbalta 60 mg orally once daily DVT prophylaxis. Continue bilateral knee-high TERRIE hose and SCDs GI prophylaxis continue Protonix. DISCHARGE PLAN To be determined. Impression and plan of care have been directed as dictated by the signing physician. Jessenia Gonzalez nurse practitioner acting as scribe for signing physician. Objective - Vital Signs Vital signs: Vital Signs Temp 98.5 F 06/11/20 04:05 Pulse 80 06/11/20 04:05 Resp 13 06/11/20 04:05 BP 165/67 06/11/20 04:05 Pulse Ox 99 06/11/20 04:05 Intake & Output 06/10/20 06/11/20 06/11/20 18:59 06:59 18:59 Intake Total 1052 100 Output Total 2335 180 Balance -1283 -80 Weight 88.3 kg 91 kg Intake: IV 70 100 .9 KVO 70 100 Oral 682 Hemodialysis 300 Output: Urine 35 180 Uretheral (Roy) 150 Hemodialysis 2300 Other: Voiding Method Indwelling Catheter Indwelling Catheter - Labs CBC & Chem 7: 06/10/20 03:12 06/10/20 03:12 Labs: Abnormal Lab Results - Last 24 Hours (Table) 06/10/20 06/10/20 06/10/20 Range/Units 12:13 17:08 20:43 POC Glucose (mg/dL) 177 H 119 H 165 H (75-99) mg/dL 06/11/20 Range/Units 07:11 POC Glucose (mg/dL) 111 H (75-99) mg/dL Microbiology - Last 24 Hours (Table) 06/09/20 09:50 Blood Culture - Preliminary Blood No Growth after 24 hours 06/09/20 09:35 Blood Culture - Preliminary Blood No Growth after 24 hours 06/09/20 10:05 Urine Culture - Preliminary Urine,Voided Gram Neg Bacilli
[2020-06-11 12:25] LABS: Basophils % (A) 1 %; Eosinophils # (A) 0.2 k/uL (0-0.7); Eosinophils % (A) 3 %; HCT 30.8 % (34.0-46.0); HGB 9.5 gm/dL (11.4-16.0); Hypochromasia Moderate; Lymphocytes # (A) 0.9 k/uL (1.0-4.8); Lymphocytes % (A) 12 %; MCH 32.3 pg (25.0-35.0); MCHC 30.9 g/dL (31.0-37.0); MCV 104.6 fL (80.0-100.0); Macrocytosis Moderate; Monocytes # (A) 0.6 k/uL (0-1.0); Monocytes % (A) 8 %; Neutrophils # (A) 5.7 k/uL (1.3-7.7); Neutrophils % (A) 75 %; Platelet Count 196 k/uL (150-450); RBC 2.94 m/uL (3.80-5.40); RDW 15.5 % (11.5-15.5); WBC 7.6 k/uL (3.8-10.6)
[2020-06-11 12:31] LABS: Albumin 3.9 g/dL (3.5-5.0); Calcium 8.6 mg/dL (8.4-10.2); Potassium 5.2 mmol/L (3.5-5.1); Total Bilirubin 0.7 mg/dL (0.2-1.3)
--- NOTE | 2020-06-11 13:32 | P.PN ---
Subjective Progress Note Date: 06/11/20 74-year-old white female patient with extensive medical history including paroxysmal atrial fibrillation, coronary artery disease with previous stenting, aortic stenosis status post LAXMI, hypertension, hyperlipidemia, diabetes mellitus type 2, end-stage renal disease on hemodialysis 3 times a week through the AV fistula in the left upper extremity, peripheral neuropathy, chronic anemia, obstructive sleep apnea on CPAP therapy with a pressure of 12 cm of water, morbid obesity, chronic back pain, previous episode of MRSA infection. Patient had a recurrent urinary tract infections since December 2019 and was on multiple rounds of antibiotics. She was just started on Bactrim yesterday on an outpatient basis. Her urine cultures from December, March, and March were all positive for E. coli, however the urine culture from 06/04/2020 was positive for E. coli and Klebsiella oxytoca, but both were sensitive to Bactrim. Patient presents to the emergency department on 06/09/2020 for evaluation of worsening shortness of breath that has progressed over a period of last few days. Patient has been using her CPAP unit at home, she reports occasional cough, but no chest pain. She reports being very fatigued. Chest x-ray showed low lung volumes and cardiomegaly with stent graft in the aortic root along with ectatic thoracic aorta, there was a new mild to moderate central vascular conges tion and small bilateral pleural effusions. CT angios of the chest showed findings suggestive of heart failure with bilateral pleural effusions and atelectatic changes at the dependent portions of the lung, bilateral groundglass opacity, indeterminate pulmonary nodule measuring 7-8 mm, no CT evidence for pulmonary embolism, physical to exclude small subsegmental pulmonary emboli. Lab data reveals white blood cell count of 14.5, hemoglobin of 11.2, sodium is 131, potassium is 5.7, chloride is 87, CO2 is 20, BUN is 70, creatinine is 6.86, proBNP was 2100, troponin was less than 0.012, alkaline phosphatase was elevated at 197, AST and ALT were within normal limits, urinalysis showed large amount of blood, 2+ protein, large amount of leuks, white blood cells in moderate bacteria, urine culture was sent, patient was started on Unasyn, she also received a dose of Levaquin, coronavirus PCR was negative. Patient is seen in the emergency department currently on BiPAP support with pressures of 10/5 and FiO2 of 35% and a pulse ox is 97%, patient is laying flat on the gurney, she has moderate shortness of breath, no acute distress, echocardiogram has been ordered, nephrology consultation has been ordered for possibility of hemodialysis treatment today. Blood and urine cultures have been ordered and are pending at this time. Echocardiogram is ordered, in view of patient's complex medical history patient will be per to the intensive care unit for closer monitoring. On 06/10/2020 patient seen in follow-up in intensive care unit, yesterday she was dialyzed with removal of 2.2 L fluid, she is breathing easier, she is off BiPAP support, currently on 4-5 L of oxygen, and her pulse ox is 96%, hemodynamically she stable, not on any vasopressor support, she is in sinus mechanism with a rate of 91 BPM, she is on 0.9 normal saline at a rate of 10 ML per hour, she is on Unasyn for antibiotic coverage, cultures are pending, urine culture pending, patient has been afebrile overnight. Altered mentation, she is sitting up in bed this morning, she is tolerating oral intake, no nausea v omiting or diarrhea, no altered mentation, sounds reveal diminished breath sounds at the bases, chest x-ray bibasilar consolidation pleural effusions, and the pattern typical of CHF. 7 reviewed, showing white blood cell count of 9.5, hemoglobin is 9.7, serum sodium is 1:30, potassium is 4.8, is 90, BUN is 50 and creatinine is 5.89. Specific complaints this morning, she is calm and comfortable, breathing comfortably, no cough congestion or phlegm production. The patient is seen today 06/11/2020 in follow-up on the selective care unit. She is currently lying flat in bed. Currently receiving hemodialysis. Awake and alert in no acute distress. Denies any worsening shortness of breath, cough or congestion. Wearing BiPAP at night. Currently on 3 L/m per nasal cannula. O2 saturations in the 90s. Urine culture positive for Klebsiella oxytoca, E. coli. White count 7.6. Hemoglobin 9.5. Sodium 134. Potassium 5.2. Creatinine 5.65. She is currently on Unasyn. Objective - Vital Signs Vital signs: Vital Signs Temp 98.5 F 06/11/20 04:05 Pulse 80 06/11/20 04:05 Resp 13 06/11/20 04:05 BP 165/67 06/11/20 04:05 Pulse Ox 99 06/11/20 04:05 Intake & Output 06/10/20 06/11/20 06/11/20 18:59 06:59 18:59 Intake Total 1052 100 Output Total 2335 180 0 Balance -1283 -80 0 Weight 88.3 kg 91 kg Intake: IV 70 100 .9 KVO 70 100 Oral 682 Hemodialysis 300 Output: Urine 35 180 0 Uretheral (Levy) 150 Stool 0 Hemodialysis 2300 Other: Voiding Method Indwelling Catheter Indwelling Catheter # Voids 0 # Bowel Movements 0 - Exam GENERAL EXAM: Alert, very pleasant, 74-year-old female patient, currently on a nasal cannula at 4 L/m, resting comfortably in the bed, breathing comfortably HEAD: Normocephalic/atraumatic. EYES: Normal reaction of pupils, equal size. Conjunctiva pink, sclera white. NOSE: Clear with pink turbinates. THROAT: No erythema or exudates. NECK: No masses, no JVD, no thyroid enlargement, no adenopathy. CHEST: No chest wall deformity. Symmetrical expansion. LUNGS: Equal air entry with diminished breath sounds and bibasilar crackles CVS: Regular rate and rhythm, normal S1 and S2, no gallops, no murmurs, no rubs ABDOMEN: Soft, nontender. No hepatosplenomegaly, normal bowel sounds, no guarding or rigidity. EXTREMITIES: No clubbing, no edema, no cyanosis, 2+ pulses and upper and lower extremities. MUSCULOSKELETAL: Muscle strength and tone normal. Left upper arm AV fistula SPINE: No scoliosis or deformity SKIN: No rashes CENTRAL NERVOUS SYSTEM: Alert and oriented -3. No focal deficits, tone is normal in all 4 extremities. PSYCHIATRIC: Alert and oriented -3. Appropriate affect. Intact judgment and insight. - Labs CBC & Chem 7: 06/11/20 09:53 06/11/20 09:53 Labs: Abnormal Lab Results - Last 24 Hours (Table) 06/10/20 06/10/20 06/11/20 Range/Units 17:08 20:43 07:11 RBC (3.80-5.40) m/uL Hgb (11.4-16.0) gm/dL Hct (34.0-46.0) % MCV (80.0-100.0) fL MCHC (31.0-37.0) g/dL Lymphocytes # (1.0-4.8) k/uL Sodium (137-145) mmol/L Potassium (3.5-5.1) mmol/L Chloride (98-107) mmol/L BUN (7-17) mg/dL Creatinine (0.52-1.04) mg/dL POC Glucose (mg/dL) 119 H 165 H 111 H (75-99) mg/dL Alkaline Phosphatase (38-126) U/L 06/11/20 06/11/20 Range/Units 09:53 09:53 RBC 2.94 L (3.80-5.40) m/uL Hgb 9.5 L (11.4-16.0) gm/dL Hct 30.8 L (34.0-46.0) % MCV 104.6 H (80.0-100.0) fL MCHC 30.9 L (31.0-37.0) g/dL Lymphocytes # 0.9 L (1.0-4.8) k/uL Sodium 134 L (137-145) mmol/L Potassium 5.2 H (3.5-5.1) mmol/L Chloride 92 L (98-107) mmol/L BUN 46 H (7-17) mg/dL Creatinine 5.65 H (0.52-1.04) mg/dL POC Glucose (mg/dL) (75-99) mg/dL Alkaline Phosphatase 155 H (38-126) U/L Microbiology - Last 24 Hours (Table) 06/09/20 10:05 Urine Culture - Final Urine,Voided Klebsiella oxytoca Escherichia coli 06/09/20 09:50 Blood Culture - Preliminary Blood No Growth after 24 hours 06/09/20 09:35 Blood Culture - Preliminary Blood No Growth after 24 hours Assessment and Plan Assessment: #1. Acute on chronic hypoxic respiratory failure related to acute exacerbation of CHF with diastolic dysfunction, COVID 19 was ruled out, chest x-ray findings showed central vascular congestion and small bilateral pleural effusions, CTA chest showed no evidence of pulmonary embolism, although it was difficult to exclude small subsegmental pulmonary emboli. Lung windows showed findings suggestive of heart failure with bilateral pleural effusions and bilateral groundglass opacity. #2. Recurrent urinary tract infection, since December 2019. Most recently urine culture from 06/04/2020 positive for E. coli and Klebsiella oxytoca, was started on Bactrim on an outpatient basis, currently on Unasyn #3. End-stage renal disease on hemodialysis #4. Paroxysmal atrial fibrillation, not on any chronic anticoagulation, currently in sinus mechanism #5. History of aortic valve stenosis status post LAXMI in 2018 #6. History of coronary artery disease with previous stenting #7. History of diastolic CHF #8. History of COPD on home oxygen at 2 L #9. History obstructive sleep apnea on CPAP at 12 cm of water #10. Previous history of pneumonia #11. History of GI bleeding #12. Previous history of myocardial infarction #13. Diabetes mellitus type 2 #14. GERD/reflux #15. Please history of MRSA infection #16. Chronic back pain with history of several back surgeries #17. History of peripheral vascular occlusive disease with previous intervention Plan: The patient was seen and evaluated by Dr. Hanson She is currently back to her baseline from the pulmonary standpoint Continue the current treatment plan We'll see as needed I, the cosigning physician, performed a history & physical examination of the patient. Lungs sounds with faint basilar crackles. Maintaining good O2 saturations in the 90s on 4 L nasal cannula. I discussed the assessment and plan of care with my nurse practitioner, Aruna Aquino. I attest to the above note as dictated by her.
--- NOTE | 2020-06-11 14:29 | PN ---
PROGRESS NOTE Patient is seen for followup for end-stage renal disease. She was admitted to the hospital with hypoxic respiratory failure, volume overload. The patient was dialyzed 2 days in a row. She is scheduled for dialysis again today as today is her regular day. PHYSICAL EXAMINATION: On examination, she is comfortable. Blood pressure is 165/67, heart rate 80 per minute. She is afebrile. EXAMINATION OF THE HEART: S1, S2. EXAMINATION OF THE LUNGS: Bilateral breath sounds are heard. Abdomen is soft, nontender. Examination of lower extremities shows no evidence of edema. [employer]ESS[employer] exam is grossly intact. LABS: Labs show sodium of 134, potassium 5.2 today, BUN 46, creatinine 5.65, hemoglobin 9.5. ASSESSMENT: 1. End-stage renal disease, on hemodialysis on a Monday, , Monday schedule. 2. Anemia of chronic disease, maintained on Aranesp. 3. Volume overload, now improved. 4. Acute hypoxic respiratory failure secondary to volume overload. 5. Urinary tract infection with urine culture growing gram-negative bacilli, maintained on Unasyn. PLAN: Repeat dialysis today. Continue antibiotics. Possible discharge next 24 hours. MMODL / IJN: [id number] /
[2020-06-11] MEDS: ASPIRIN 81 MG PO SCH (16:29)
[2020-06-11] MEDS: CLOPIDOGREL 75 MG TAB PO SCH (16:29)
[2020-06-11] MEDS: DULoxetine HCL 60 MG CAPSULE.DR PO SCH (16:29)
[2020-06-11] MEDS: metOLazone 5 MG TAB PO SCH ×2 (16:29→20:58)
[2020-06-11] MEDS: FUROSEMIDE 80 MG TAB PO SCH ×2 (16:30→17:33)
[2020-06-11] MEDS: AMIODARONE 100 MG TAB PO SCH (16:30)
[2020-06-11] MEDS: METOPROLOL SUCCINATE (ER) 50 MG TAB.ER.24H PO SCH (16:30)
[2020-06-11] MEDS: EZETIMIBE 10 MG TAB PO SCH (16:30)
[2020-06-11] MEDS: PANTOPRAZOLE 40 MG/10 ML VIAL IVP SCH (16:31)
[2020-06-11 17:24] LABS: Glucose,Whole Blood 174 mg/dL (75-99)
[2020-06-11] MEDS: GABAPENTIN 300 MG CAP PO SCH ×2 (17:43→21:00)
[2020-06-11] MEDS: FERROUS SULFATE 325 MG TAB PO SCH (17:43)
[2020-06-11] MEDS: CHOLECALCIFEROL 25 MCG (1000 IU) TABLET PO SCH (17:44)
[2020-06-11] MEDS ORDERED: polyethylene glycoL 3350 17 GM POWD.PACK PO STA (20:26)
[2020-06-11] MEDS ORDERED: DOCUSATE 100 MG CAP PO PRN (20:27)
[2020-06-11 20:30] LABS: Glucose,Whole Blood 117 mg/dL (75-99)
[2020-06-12 07:02] LABS: Glucose,Whole Blood 124 mg/dL (75-99)
[2020-06-12] MEDS: INSULIN ASPART (NovoLOG) 100 UNIT/ML VIAL SQ SCH ×2 (07:08→12:52)
[2020-06-12] MEDS: INSULIN DETEMIR (LEVEMIR) 100 UNIT/ML SYR SQ SCH (07:11)
[2020-06-12 08:00] LABS: Basophils # (A) 0.1 k/uL (0-0.2); Basophils % (A) 1 %; Eosinophils # (A) 0.2 k/uL (0-0.7); Eosinophils % (A) 2 %; HGB 9.6 gm/dL (11.4-16.0); Hypochromasia Moderate; Lymphocytes # (A) 0.7 k/uL (1.0-4.8); Lymphocytes % (A) 11 %; MCH 32.3 pg (25.0-35.0); MCHC 31.2 g/dL (31.0-37.0); MCV 103.8 fL (80.0-100.0); Macrocytosis Slight; Mean Platelet Volume 8.2; Monocytes # (A) 0.5 k/uL (0-1.0); Monocytes % (A) 8 %; Neutrophils # (A) 4.9 k/uL (1.3-7.7); Neutrophils % (A) 75 %; Platelet Count 187 k/uL (150-450); RBC 2.98 m/uL (3.80-5.40); RDW 14.9 % (11.5-15.5); WBC 6.6 k/uL (3.8-10.6)
[2020-06-12] MEDS: metOLazone 5 MG TAB PO SCH (10:06)
[2020-06-12] MEDS: AMPICILLIN-SULBACTAM 1.5 GM in SODIUM CHLORIDE 0.9% 50 ML IVPB SCH (10:06)
[2020-06-12] MEDS: ASPIRIN 81 MG PO SCH (10:06)
[2020-06-12] MEDS: EZETIMIBE 10 MG TAB PO SCH (10:07)
[2020-06-12] MEDS: CLOPIDOGREL 75 MG TAB PO SCH (10:07)
[2020-06-12] MEDS: DULoxetine HCL 60 MG CAPSULE.DR PO SCH (10:07)
[2020-06-12] MEDS: CHOLECALCIFEROL 25 MCG (1000 IU) TABLET PO SCH (10:07)
[2020-06-12] MEDS: METOPROLOL SUCCINATE (ER) 50 MG TAB.ER.24H PO SCH (10:07)
[2020-06-12] MEDS: AMIODARONE 100 MG TAB PO SCH (10:07)
[2020-06-12] MEDS: PANTOPRAZOLE 40 MG/10 ML VIAL IVP SCH (10:08)
[2020-06-12] MEDS: FUROSEMIDE 80 MG TAB PO SCH (10:24)
[2020-06-12] MEDS: GABAPENTIN 300 MG CAP PO SCH (10:24)
[2020-06-12] MEDS: HEPARIN SODIUM,PORCINE 5,000 UNIT/ML 1 ML VIAL SQ SCH (10:25)
[2020-06-12] MEDS: FERROUS SULFATE 325 MG TAB PO SCH (10:25)
[2020-06-12] MEDS: ACETAMINOPHEN TAB 325 MG TAB PO PRN (10:27)
--- NOTE | 2020-06-12 10:27 | P.DS ---
Providers Date of admission: 06/09/20 11:49 Expected date of discharge: 06/12/20 Attending physician: Mary Colvin Consults: 06/09/20 10:09 Consult Physician Routine Consulting Provider: Carolina Zhang Consult Reason/Comments: hypoxia Do you want consulting provider notified?: Yes 06/09/20 11:41 Consult Physician Urgent Consulting Provider: Mariam Botello Consult Reason/Comments: esrf, pulm edema Do you want consulting provider notified?: Yes Primary care physician: Stevenson Farias [facility] Course: HISTORY OF PRESENT ILLNESS This is a 74-year-old female patient of Dr. Farias with past medical history of proximal atrial fibrillation, coronary artery disease status post OH, chronic diastolic heart failure, diabetes, hyperlipidemia, hypertension, hypertensive cardiovascular disease, end-stage renal disease on hemodialysis, aortic stenosis status post TAVR in 2018. Patient reports she was being treated for urinary tract infection by the nurse practitioner at [facility] 05/22 had cysstostcopy done for recurrent UIT, 2 days later had hematuria and was given bactrim for klebsiella and ecoli uti on 06/07/2020. she is on prophylactic macrobid and mande rlamin,e. 1.5 wkeeks ago she now requiring daytime o2 for which she normlally dpoes not require. she has increasing shortenss of breath and idfficultuy in breathing, no edmea, no aspiration, she is dialyzed tths and is at at her current dry weight. she requires cpap at night with o2 being provided every bedtime. ER felt that Patient is a pleasant 74-year-old female presenting to the emergency Department with complaints of difficulty in breathing. Symptoms have progressed with the past few days. Patient has had multiple severe recent problems with urinary tract infection. Patient had culture returned yesterday with Klebsiella and E. coli. Questionable history of COPD. Patient has been using CPAP at home frequently and has been fatigued. Occasional cough.Patient is due today for dialysis. she was evaluated by myself in the ER hshe has abdominal breathing and accessory and breathing muscle use, and tachypnea, cta pe protocol imaging studies, with consult to see dr zhang, echo cardiogram, kaci mesa wer sent, urine is scant in roy cath, IV antibotic for now empiric till cultures, . last urine cultures reviewed, klebsiella and E. coli pansensitive except for klebsiella resistant to ampicillin, and cefazolin patient is is on IV Levaquin, transferred to ICU secondary distress, required BiPAP support pressures of 10/5, FiO2 35%, IV Zosyn pending cultures. 06/10: Patient remains in the intensive care unit. She underwent hemodialysis yesterday with removal of 2.2 L of fluid. She is on her normal Monday, , Monday schedule. She is scheduled to leave the intensive care unit to the [facility] floor with telemetry. Repeat blood work reveals W BC 9.5, hemoglobin 9.7, platelet count 201. Sodium 130, potassium 4.8, chloride 90, CO2 25, BUN 15 creatinine 5.89. Blood sugar 135. Capillary blood glucose running between 144 and 177. TSH 0.186. Patient is afebrile, heart rate 89, blood pressure 145/59, pulse ox 96% on 4 L nasal cannula. Urine culture is gram- negative bacilli. Chest x-ray this morning reveals correlate for heart failure. Underlying pneumonia not excluded. Echocardiogram reveals moderate mitral stenosis, moderate to severe tricuspid regurgitation, severe pulmonary hypertension. Inferior vena cava is dilated. 06/11: Patient is seen today on the cardiac stepdown unit. She states that she was feeling better when she woke up today. She is scheduled for hemodialysis today. Patient is currently on a BiPAP but has been on nasal cannula during the day. She states she has decreased appetite. No nausea. Urine culture is gram- negative bacilli. Blood cultures showing no growth after 24 hours. Patient is afebrile, heart rate 80, blood pressure 165/67, pulse ox 99% on BiPAP. Blood sugars running between 111 and 165. 06/12: She is now down to 3 L nasal cannula and tolerating well. This is her baseline. Patient was cleared for discharge by pulmonary medicine yesterday. WBC 6.6, hemoglobin 9.6, platelet count 187. Blood sugars running between 124- 182. Urine culture is positive for klebsiella and E. coli susceptible to doxycycline. Prescription sent to pharmacy. Patient will be discharged home today in stable condition. ASSESSMENT AND PLAN 1. Acute hypoxic respiratory failure requiring BiPAP initially, secondary to acute diastolic heart failure 2. Bilateral pleural effusion, small. 3. Recurrent UTI, status post cystoscopy, by Dr. Borrego 4. Oliguria secondary to end-stage kidney disease 5. End-stage renal disease on hemodialysis Monday and Monday, 6. Chronic diastolic heart failure. 7. History of aortic stenosis status post TAVR. 8. Hypertension cardiovascular disease. 9. Paroxysmal atrial fibrillation. 10. History of myocardial infarction and coronary artery disease status post LAD stent in July 2017 and left circumflex in August 2017. 11. Diabetes mellitus type 2, insulin requiring. 12. GERD 13. History of hyperlipidemia 14. Obstructive sleep apnea, on CPAP machine at night 15. Diabetic peripheral neuropathy 16. Recurrent depression. Continue Cymbalta 60 mg orally once daily DISCHARGE PLAN Home. Impression and plan of care have been directed as dictated by the signing physician. Jessenia Gonzalez nurse practitioner acting as scribe for signing physician. Patient Condition at Discharge: Good Plan - Discharge Summary Discharge Rx Participant: No New Discharge Prescriptions: New Doxycycline Hyclate 100 mg PO BID #14 tab Methenamine Hippurate 1 gm PO BID #60 tablet Continue DULoxetine HCL [Cymbalta] 60 mg PO DAILY Amiodarone HCl [Pacerone] 100 mg PO DAILY Ezetimibe [Zetia] 10 mg PO DAILY Gabapentin [Neurontin] 300 mg PO BID #60 capsule Omeprazole 20 mg PO DAILY Cholecalciferol (Vitamin D3) [Vitamin D3] 2,000 unit PO DAILY Magnesium Oxide [Mag-Ox] 250 mg PO DAILY Clopidogrel [Plavix] 75 mg PO DAILY #30 tab Midodrine HCl [ProAmatine] 10 mg PO DIRECTED PRN PRN Reason: DIALYSIS,LOW BLOOD PRESSURE Aspirin [Adult Low Dose Aspirin EC] 81 mg PO DAILY metOLazone [Zaroxolyn] 5 mg PO BID Cranberry 4200mg 4,200 mg PO BID Metoprolol Succinate (ER) [Toprol XL] 50 mg PO DAILY Insulin Aspart [NovoLOG Flexpen] 10 - 14 units SQ AC-TID Insulin Glargine,Hum.rec.anlog [Lantus Solostar] 25 units SQ BID Sevelamer [Renvela] 800 mg PO AC-BRKFST Furosemide [Lasix] 80 mg PO BID Ferrous Sulfate [Iron (65 MG Elemental)] 325 mg PO DAILY Vitamin C/Biotin [Hair, Skin and Nails] 1 tab PO BID Discontinued Sulfamethox-Tmp 800-160Mg [Bactrim DS 800-160 mg] 1 tab PO Q12HR Discharge Medication List DULoxetine HCL [Cymbalta] 60 mg PO DAILY 08/04/14 [History] Amiodarone HCl [Pacerone] 100 mg PO DAILY 11/22/15 [History] Ezetimibe [Zetia] 10 mg PO DAILY 11/22/15 [History] Gabapentin [Neurontin] 300 mg PO BID #60 capsule 11/27/15 [Rx] Omeprazole 20 mg PO DAILY 12/25/16 [History] Cholecalciferol (Vitamin D3) [Vitamin D3] 2,000 unit PO DAILY 12/31/16 [History] Magnesium Oxide [Mag-Ox] 250 mg PO DAILY 05/05/17 [History] Clopidogrel [Plavix] 75 mg PO DAILY #30 tab 08/21/17 [Rx] Midodrine HCl [ProAmatine] 10 mg PO DIRECTED PRN 10/23/17 [History] Aspirin [Adult Low Dose Aspirin EC] 81 mg PO DAILY 03/02/18 [History] metOLazone [Zaroxolyn] 5 mg PO BID 02/11/19 [History] Cranberry 4200mg 4,200 mg PO BID 01/12/20 [History] Furosemide [Lasix] 80 mg PO BID 01/12/20 [History] Insulin Aspart [NovoLOG Flexpen] 10 - 14 units SQ AC-TID 01/12/20 [History] Insulin Glargine,Hum.rec.anlog [Lantus Solostar] 25 units SQ BID 01/12/20 [History] Metoprolol Succinate (ER) [Toprol XL] 50 mg PO DAILY 01/12/20 [History] Sevelamer [Renvela] 800 mg PO AC-BRKFST 01/12/20 [History] Ferrous Sulfate [Iron (65 MG Elemental)] 325 mg PO DAILY 06/09/20 [History] Vitamin C/Biotin [Hair, Skin and Nails] 1 tab PO BID 06/09/20 [History] Doxycycline Hyclate 100 mg PO BID #14 tab 06/12/20 [Rx] Methenamine Hippurate 1 gm PO BID #60 tablet 06/12/20 [Rx] Follow up Appointment(s)/Referral(s): Stevenson Farias MD [Primary Care Provider] - 1 Week (please call office when open to make follow up appointment) [facility] [NON-STAFF] - As Needed Patient Instructions/Handouts: Pulmonary Edema (DC), COPD (Chronic Obstructive Pulmonary Disease) (DC)
--- NOTE | 2020-06-12 11:35 | P.PN ---
Subjective Progress Note Date: 06/12/20 74-year-old white female patient with extensive medical history including paroxysmal atrial fibrillation, coronary artery disease with previous stenting, aortic stenosis status post LAXMI, hypertension, hyperlipidemia, diabetes mellitus type 2, end-stage renal disease on hemodialysis 3 times a week through the AV fistula in the left upper extremity, peripheral neuropathy, chronic anemia, obstructive sleep apnea on CPAP therapy with a pressure of 12 cm of water, morbid obesity, chronic back pain, previous episode of MRSA infection. Patient had a recurrent urinary tract infections since December 2019 and was on multiple rounds of antibiotics. She was just started on Bactrim yesterday on an outpatient basis. Her urine cultures from December, March, and March were all positive for E. coli, however the urine culture from 06/04/2020 was positive for E. coli and Klebsiella oxytoca, but both were sensitive to Bactrim. Patient presents to the emergency department on 06/09/2020 for evaluation of worsening shortness of breath that has progressed over a period of last few days. Patient has been using her CPAP unit at home, she reports occasional cough, but no chest pain. She reports being very fatigued. Chest x-ray showed low lung volumes and cardiomegaly with stent graft in the aortic root along with ectatic thoracic aorta, there was a new mild to moderate central vascular conge stion and small bilateral pleural effusions. CT angios of the chest showed findings suggestive of heart failure with bilateral pleural effusions and atelectatic changes at the dependent portions of the lung, bilateral groundglass opacity, indeterminate pulmonary nodule measuring 7-8 mm, no CT evidence for pulmonary embolism, physical to exclude small subsegmental pulmonary emboli. Lab data reveals white blood cell count of 14.5, hemoglobin of 11.2, sodium is 131, potassium is 5.7, chloride is 87, CO2 is 20, BUN is 70, creatinine is 6.86, proBNP was 2100, troponin was less than 0.012, alkaline phosphatase was elevated at 197, AST and ALT were within normal limits, urinalysis showed large amount of blood, 2+ protein, large amount of leuks, white blood cells in moderate bacteria, urine culture was sent, patient was started on Unasyn, she also received a dose of Levaquin, coronavirus PCR was negative. Patient is seen in the emergency department currently on BiPAP support with pressures of 10/5 and FiO2 of 35% and a pulse ox is 97%, patient is laying flat on the gurney, she has moderate shortness of breath, no acute distress, echocardiogram has been ordered, nephrology consultation has been ordered for possibility of hemodialysis treatment today. Blood and urine cultures have been ordered and are pending at this time. Echocardiogram is ordered, in view of patient's complex medical history patient will be per to the intensive care unit for closer monitoring. On 06/10/2020 patient seen in follow-up in intensive care unit, yesterday she was dialyzed with removal of 2.2 L fluid, she is breathing easier, she is off BiPAP support, currently on 4-5 L of oxygen, and her pulse ox is 96%, hemodynamically she stable, not on any vasopressor support, she is in sinus mechanism with a rate of 91 BPM, she is on 0.9 normal saline at a rate of 10 ML per hour, she is on Unasyn for antibiotic coverage, cultures are pending, urine culture pending, patient has been afebrile overnight. Altered mentation, she is sitting up in bed this morning, she is tolerating oral intake, no nausea vomiting or diarrhea, no altered mentation, sounds reveal diminished breath sounds at the bases, chest x-ray bibasilar consolidation pleural effusions, and the pattern typical of CHF. 7 reviewed, showing white blood cell count of 9.5, hemoglobin is 9.7, serum sodium is 1:30, potassium is 4.8, is 90, BUN is 50 and creatinine is 5.89. Specific complaints this morning, she is calm and comfortable, breathing comfortably, no cough congestion or phlegm production. The patient is seen today 06/11/2020 in follow-up on the selective care unit. She is currently lying flat in bed. Currently receiving hemodialysis. Awake and alert in no acute distress. Denies any worsening shortness of breath, cough or congestion. Wearing BiPAP at night. Currently on 3 L/m per nasal cannula. O2 saturations in the 90s. Urine culture positive for Klebsiella oxytoca, E. coli. White count 7.6. Hemoglobin 9.5. Sodium 134. Potassium 5.2. Creatinine 5.65. She is currently on Unasyn. 06/12/2020 on seeing the patient for a follow-up. She is working with physical therapy. She is quite comfortable. She is on IV Unasyn. No respiratory difficulties. She is able to walk with help of a walker. Her last dialysis was yesterday. No fever. No chills. No other complaints otherwise for now. The echocardiogram was repeated and the patient was found to have a preserved LV function with an ejection fraction of 55-60%. The peak gradient across the aortic valve was 26 and the patient has a T aVR in place. She has moderate mitral stenosis, moderate to severe tricuspid stenosis and severe pulmonary h ypertension. Her IVC was dilated consistent with fluid overload. Objective - Vital Signs Vital signs: Vital Signs Temp 98.5 F 06/11/20 19:30 Pulse 77 06/12/20 04:45 Resp 13 06/12/20 04:45 BP 156/67 06/12/20 04:45 Pulse Ox 98 06/12/20 04:45 Intake & Output 06/11/20 06/12/20 06/12/20 18:59 06:59 18:59 Intake Total 480 240 240 Output Total 2500 0 Balance -2019 240 240 Weight 91.5 kg Intake: Oral 480 240 240 Output: Urine 0 0 Stool 0 Hemodialysis 2500 Other: Voiding Method Bedside Commode Bedside Commode # Voids 0 0 0 # Bowel Movements 0 0 - Exam GENERAL EXAM: Alert, very pleasant, 74-year-old female patient, currently on a nasal cannula at 4 L/m, resting comfortably in the bed, breathing comfortably HEAD: Normocephalic/atraumatic. EYES: Normal reaction of pupils, equal size. Conjunctiva pink, sclera white. NOSE: Clear with pink turbinates. THROAT: No erythema or exudates. NECK: No masses, no JVD, no thyroid enlargement, no adenopathy. CHEST: No chest wall deformity. Symmetrical expansion. LUNGS: Equal air entry with diminished breath sounds and bibasilar crackles CVS: Regular rate and rhythm, normal S1 and S2, no gallops, no murmurs, no rubs ABDOMEN: Soft, nontender. No hepatosplenomegaly, normal bowel sounds, no guarding or rigidity. EXTREMITIES: No clubbing, no edema, no cyanosis, 2+ pulses and upper and lower extremities. MUSCULOSKELETAL: Muscle strength and tone normal. Left upper arm AV fistula SPINE: No scoliosis or deformity SKIN: No rashes CENTRAL NERVOUS SYSTEM: Alert and oriented -3. No focal deficits, tone is normal in all 4 extremities. PSYCHIATRIC: Alert and oriented -3. Appropriate affect. Intact judgment and insight. - Labs CBC & Chem 7: 06/12/20 07:30 06/11/20 09:53 Labs: Abnormal Lab Results - Last 24 Hours (Table) 06/11/20 06/11/20 06/11/20 Range/Units 09:53 09:53 17:19 RBC 2.94 L (3.80-5.40) m/uL Hgb 9.5 L (11.4-16.0) gm/dL Hct 30.8 L (34.0-46.0) % MCV 104.6 H (80.0-100.0) fL MCHC 30.9 L (31.0-37.0) g/dL Lymphocytes # 0.9 L (1.0-4.8) k/uL Sodium 134 L (137-145) mmol/L Potassium 5.2 H (3.5-5.1) mmol/L Chloride 92 L (98-107) mmol/L BUN 46 H (7-17) mg/dL Creatinine 5.65 H (0.52-1.04) mg/dL POC Glucose (mg/dL) 174 H (75-99) mg/dL Alkaline Phosphatase 155 H (38-126) U/L 06/11/20 06/12/20 06/12/20 Range/Units 20:29 07:01 07:30 RBC 2.98 L (3.80-5.40) m/uL Hgb 9.6 L (11.4-16.0) gm/dL Hct 31.0 L (34.0-46.0) % MCV 103.8 H (80.0-100.0) fL MCHC (31.0-37.0) g/dL Lymphocytes # 0.7 L (1.0-4.8) k/uL Sodium (137-145) mmol/L Potassium (3.5-5.1) mmol/L Chloride (98-107) mmol/L BUN (7-17) mg/dL Creatinine (0.52-1.04) mg/dL POC Glucose (mg/dL) 117 H 124 H (75-99) mg/dL Alkaline Phosphatase (38-126) U/L Microbiology - Last 24 Hours (Table) 06/09/20 09:50 Blood Culture - Preliminary Blood No Growth after 48 hours 06/09/20 09:35 Blood Culture - Preliminary Blood No Growth after 48 hours 06/09/20 10:05 Urine Culture - Final Urine,Voided Klebsiella oxytoca Escherichia coli Assessment and Plan Plan: #1. Acute on chronic hypoxic respiratory failure related to acute exacerbation of CHF with diastolic dysfunction, COVID 19 was ruled out, chest x-ray findings showed central vascular congestion and small bilateral pleural effusions, CTA chest showed no evidence of pulmonary embolism, although it was difficult to exclude small subsegmental pulmonary emboli. Lung windows showed findings suggestive of heart failure with bilateral pleural effusions and bilateral groundglass opacity. Overall picture is consistent with fluid overload in addition to diastolic heart failure with valvular heart disease and mitral stenosis and severe pulmonary hypertension. The IVC was none collapsibility was dilated consistent with volume overload. The patient got dialyzed and her last dialysis was yesterday. She does have some residual effusions bilaterally and the patient is currently on 2 L about 2 by nasal cannula. #2. Recurrent urinary tract infection, since December 2019. Most recently urine culture from 06/04/2020 positive for E. coli and Klebsiella oxytoca, was started on Bactrim on an outpatient basis, currently on Unasyn #3. End-stage renal disease on hemodialysis #4. Paroxysmal atrial fibrillation, not on any chronic anticoagulation, currently in sinus mechanism #5. History of aortic valve stenosis status post TAVR in 2018 #6. History of coronary artery disease with previous stenting #7. History of diastolic CHF #8. History of COPD on home oxygen at 2 L #9. History obstructive sleep apnea on CPAP at 12 cm of water #10. Previous history of pneumonia #11. History of GI bleeding #12. Previous history of myocardial infarction #13. Diabetes mellitus type 2 #14. GERD/reflux #15. Please history of MRSA infection #16. Chronic back pain with history of several back surgeries #17. History of peripheral vascular occlusive disease with previous intervention Plan switch the antibiotics to oral Fluid restriction Continue hemodialysis No need for thoracentesis Oxygen 2 L per minute nasal cannula Possible discharge today.
[2020-06-12 11:59] LABS: Glucose,Whole Blood 182 mg/dL (75-99)
[2020-06-12] MEDS: SEVELAMER 800 MG TAB PO SCH (12:52)
[2020-06-12 15:06] VITALS: RESP 18; TEMP 98.9
[2020-06-12 15:09] VITALS: BP 123/54; PULSE 86
--- NOTE | 2020-06-12 15:38 | XR ---
EXAMINATION TYPE: XR chest 1V DATE OF EXAM: 06/12/2020 HISTORY: Shortness of breath. COMPARISON: June 10, 2020 TECHNIQUE: Single view of the chest is submitted. FINDINGS: Demonstrated are scattered senescent parenchymal change. There is no evidence for focal infiltrate. The heart is stable. Hilar and mediastinal structures are within normal limits. Degenerative changes are seen of the dorsal spine. IMPRESSION: 1. Chronic changes without evidence for acute pulmonary disease.
--- NOTE | 2020-06-12 16:07 | PN ---
PROGRESS NOTE Patient is seen for followup for end-stage renal disease. She is currently comfortable, lying in bed, not in any acute distress. PHYSICAL EXAMINATION: Blood pressure is 123/54, heart rate 86 per minute. She is afebrile. Examination shows no evidence of edema, lower extremities. Abdomen is soft, nontender. [employer] exam is grossly intact. LABS: Hemoglobin 9.6 g/dL today. ASSESSMENT: 1. End-stage renal disease, on hemodialysis on a Monday, , Monday schedule. 2. Volume overload, currently improved. 3. Urinary tract infection with urine culture growing Klebsiella oxytoca and Escherichia coli. 4. Anemia of chronic disease, maintained on Aranesp. 5. 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 PLAN: Hemodialysis in a.m. Patient can be dialyzed as outpatient tomorrow, as she will be most likely discharged today. MMODL / IJN: [id number] /
== END 2020-06-12 16:30 | disposition home or self-care (01) | DRG 291 ==
LOC: EC 09:00 → 4SSUR 11:49 → 2SICU 14:30 → 3SCARD 06-11 00:53
PROVIDERS: ADMIT Family Medicine; ATTEND Family Medicine
PROC: 5A09457 Assistance with Respiratory Ventilation, 24-96 Consecutive Hours, Continuous Positive Airway Pressure (ICD-10-PCS; principal; 2020-06-09)
PROC: 5A1D70Z Performance of Urinary Filtration, Intermittent, Less than 6 Hours Per Day (ICD-10-PCS; 2020-06-09)
DX: I13.2 Hypertensive heart and chronic kidney disease with heart failure and with stage 5 chronic kidney disease, or end stage renal disease (principal); I50.33 Acute on chronic diastolic (congestive) heart failure; J96.21 Acute and chronic respiratory failure with hypoxia; N18.6 End stage renal disease; F33.9 Major depressive disorder, recurrent, unspecified; N39.0 Urinary tract infection, site not specified; Z16.11 Resistance to penicillins; I45.2 Bifascicular block; I27.20 Pulmonary hypertension, unspecified; D63.1 Anemia in chronic kidney disease; E83.9 Disorder of mineral metabolism, unspecified; E11.22 Type 2 diabetes mellitus with diabetic chronic kidney disease; E11.51 Type 2 diabetes mellitus with diabetic peripheral angiopathy without gangrene; E11.42 Type 2 diabetes mellitus with diabetic polyneuropathy; I48.0 Paroxysmal atrial fibrillation; Z99.2 Dependence on renal dialysis; Z79.4 Long term (current) use of insulin; E66.01 Morbid (severe) obesity due to excess calories; J44.9 Chronic obstructive pulmonary disease, unspecified; Z20.822 Contact with and (suspected) exposure to COVID-19; I08.1 Rheumatic disorders of both mitral and tricuspid valves; E78.5 Hyperlipidemia, unspecified; R31.9 Hematuria, unspecified; B96.1 Klebsiella pneumoniae [K. pneumoniae] as the cause of diseases classified elsewhere; B96.20 Unspecified Escherichia coli [E. coli] as the cause of diseases classified elsewhere; G47.33 Obstructive sleep apnea (adult) (pediatric); K21.9 Gastro-esophageal reflux disease without esophagitis; I25.10 Atherosclerotic heart disease of native coronary artery without angina pectoris; M54.9 Dorsalgia, unspecified; G89.29 Other chronic pain; I25.2 Old myocardial infarction; Z68.36 Body mass index [BMI] 36.0-36.9, adult; Z99.81 Dependence on supplemental oxygen; Z79.82 Long term (current) use of aspirin; Z79.02 Long term (current) use of antithrombotics/antiplatelets; Z79.899 Other long term (current) drug therapy; Z71.3 Dietary counseling and surveillance; Z87.19 Personal history of other diseases of the digestive system; Z87.01 Personal history of pneumonia (recurrent); Z87.440 Personal history of urinary (tract) infections; Z86.14 Personal history of Methicillin resistant Staphylococcus aureus infection; Z90.49 Acquired absence of other specified parts of digestive tract; Z95.5 Presence of coronary angioplasty implant and graft; Z90.710 Acquired absence of both cervix and uterus; Z87.42 Personal history of other diseases of the female genital tract; Z98.42 Cataract extraction status, left eye; Z98.41 Cataract extraction status, right eye; Z95.2 Presence of prosthetic heart valve; Z87.39 Personal history of other diseases of the musculoskeletal system and connective tissue; Z98.890 Other specified postprocedural states; Z88.1 Allergy status to other antibiotic agents; Z88.5 Allergy status to narcotic agent; Z88.8 Allergy status to other drugs, medicaments and biological substances; Z82.49 Family history of ischemic heart disease and other diseases of the circulatory system; Z82.3 Family history of stroke; Z82.5 Family history of asthma and other chronic lower respiratory diseases
CPT/HCPCS: 36415; 71045; 71046; 71275; 80053; 81001; 83605; 83735; 83880; 84100; 84439; 84443; 84484; 85025; 85610; 85730; 86140; 86706; 87040; 87077; 87086; 87186; 87340; 87635; 90935; 93005; 93306; 94660; 94760; 96365; 96367; 99291

== ENCOUNTER 2020-09-05 10:03 | Inpatient (IN) | payer BC, MEDICARE ==
[2020-09-05] MEDS ORDERED: ACETAMINOPHEN TAB 500 MG TAB PO STA (10:07)
[2020-09-05] MEDS ORDERED: IBUPROFEN 600 MG TAB PO STA (10:07)
--- NOTE | 2020-09-05 10:20 | ED ---
General Adult HPI - General Chief complaint: Weakness Stated complaint: Weakness Time Seen by Provider: 09/05/20 10:05 Source: patient, EMS, RN notes reviewed, old records reviewed Mode of arrival: EMS Limitations: no limitations - History of Present Illness Initial comments: This is a 74-year-old female who presents emergency Department complaining of generalized weakness. Patient states she is a dialysis patient and was due for dialysis again today. Patient states she's had a fever recently and was fighting a urinary tract infection is been intermittent since March. Patient denies any chest pain palpitations or difficulty breathing. Patient has any cough per patient states she had the COVID vaccine back in June. Patient denies any abdominal pain. Patient denies dysuria hematuria urinary frequency. Patient denies any rashes lesions or areas of redness on her skin. - Related Data Home Medications Medication Instructions Recorded Confirmed DULoxetine HCL [Cymbalta] 60 mg PO DAILY 08/04/14 06/09/20 Amiodarone HCl [Pacerone] 100 mg PO DAILY 11/22/15 06/09/20 Ezetimibe [Zetia] 10 mg PO DAILY 11/22/15 06/09/20 Omeprazole 20 mg PO DAILY 12/25/16 06/09/20 Cholecalciferol (Vitamin D3) 2,000 unit PO DAILY 12/31/16 06/09/20 [Vitamin D3] Magnesium Oxide [Mag-Ox] 250 mg PO DAILY 05/05/17 06/09/20 Midodrine HCl [ProAmatine] 10 mg PO DIRECTED PRN 10/23/17 06/09/20 Aspirin [Adult Low Dose Aspirin EC] 81 mg PO DAILY 03/02/18 06/09/20 metOLazone [Zaroxolyn] 5 mg PO BID 02/11/19 06/09/20 Cranberry 4200mg 4,200 mg PO BID 01/12/20 06/09/20 Furosemide [Lasix] 80 mg PO BID 01/12/20 06/09/20 Insulin Aspart [NovoLOG Flexpen] 10 - 14 units SQ AC-TID 01/12/20 06/09/20 Insulin Glargine,Hum.rec.anlog 25 units SQ BID 01/12/20 06/09/20 [Lantus Solostar] Metoprolol Succinate (ER) [Toprol 50 mg PO DAILY 01/12/20 06/09/20 XL] Sevelamer [Renvela] 800 mg PO AC-BRKFST 01/12/20 06/09/20 Ferrous Sulfate [Iron (65 MG 325 mg PO DAILY 06/09/20 06/09/20 Elemental)] Vitamin C/Biotin [Hair, Skin and 1 tab PO BID 06/09/20 06/09/20 Nails] Previous Rx's Medication Instructions Recorded Gabapentin [Neurontin] 300 mg PO BID #60 capsule 11/27/15 Clopidogrel [Plavix] 75 mg PO DAILY #30 tab 08/21/17 Doxycycline Hyclate 100 mg PO BID #14 tab 06/12/20 Methenamine Hippurate 1 gm PO BID #60 tablet 06/12/20 Allergies Allergy/AdvReac Type Severity Reaction Status Date / Time KUSHAL Inhibitors Allergy Swelling Verified 09/05/20 10:15 ARB-Angiotensin Receptor Allergy Swelling Verified 09/05/20 10:15 Antagonist cephalexin monohydrate Allergy Rash/Hives, Verified 09/05/20 10:15 [From Keflex] MOUTH SWELLING propoxyphene HCl AdvReac Hallucinati Verified 09/05/20 10:15 [From Darvon] ons Gpgmiik-Njt-Qil Reductase AdvReac Myalgia Verified 09/05/20 10:15 Inhibitor Review of Systems ROS Statement: Those systems with pertinent positive or pertinent negative responses have been documented in the HPI. ROS Other: All systems not noted in ROS Statement are negative. Past Medical History Past Medical History: Atrial Fibrillation, Coronary Artery Disease (CAD), Heart Failure, COPD, Diabetes Mellitus, Dialysis, GERD/Reflux, GI Bleed, Hyperlipide madi, Hypertension, Myocardial Infarction ([place]), Pneumonia, Renal Disease, Sleep Apnea/CPAP/BIPAP, Vascular Disorder Additional Past Medical History / Comment(s): HEMODIALYSIS- MONDAY,MONDAY,AND MONDAY . USES WHEELCHAIR-TRANSFERS ONLY -CAN TAKE A COUPLE OF STEPS, hx. GI bleed >year ago, SOB w/exertion, uses oxygen prn @2l, see Dr Combs H & P. TAVR Last Myocardial Infarction Date:: 2015 History of Any Multi-Drug Resistant Organisms: MRSA Date of last positivie culture/infection: 02/09/18 MDRO Source:: LT THIRD TOE Past Surgical History: Back Surgery, Cholecystectomy, Heart Catheterization, Heart Catheterization With Stent, Hysterectomy, Orthopedic Surgery Additional Past Surgical History / Comment(s): PCI with stents, several back surgeries-lumbar, bilateral carpal tunnel releases, bilateral cataract removals, port then fistula for hemodialysis. PTBA to left leg 03-02-18. TAVR in [address] Rock at [facility] Past Anesthesia/Blood Transfusion Reactions: Previous Problems w/ Anesthesia Additional Past Anesthesia/Blood Transfusion Reaction / Comment(s): Confusion that resolved. Date of Last Stent Placement:: 10/06/17 Past Psychological History: No Psychological Hx Reported Smoking Status: Never smoker Past Alcohol Use History: None Reported Past Drug Use History: None Reported - Past Family History Father Additional Family Medical History / Comment(s): Brain aneurysm ; age 72 Sister(s) Family Medical History: Hypertension Additional Family Medical History / Comment(s): Aortic stenosis; mitral valve disease Mother Family Medical History: No Reported History, AFIB, CVA/TIA, Hypertension Additional Family Medical History / Comment(s): mother age 83 Daughter(s) Family Medical History: Asthma Son(s) Family Medical History: Asthma General Exam - General Exam Comments Initial Comments: GENERAL: Patient is well-developed and well-nourished. Patient is nontoxic and well- hydrated and is in mild distress. Patient's oral temperature is 101.5 ENT: Neck is soft and supple. No significant lymphadenopathy is noted. Oropharynx is clear. Moist mucous membranes. Neck has full range of motion without eliciting any pain. EYES: The sclera were anicteric and conjunctiva were pink and moist. Extraocular movements were intact and pupils were equal round and reactive to light. Eyelids were unremarkable. PULMONARY: Unlabored respirations. Good breath sounds bilaterally. No audible rales rhonchi or wheezing was noted. CARDIOVASCULAR: There is a regular rate and rhythm without any murmurs gallops or rubs. ABDOMEN: Soft and nontender with normal bowel sounds. SKIN: Skin is clear with no lesions or rashes and otherwise unremarkable. NEUROLOGIC: Patient is alert and oriented x3. Cranial nerves II through XII are grossly intact. Motor and sensory are also intact. Normal speech, volume and content. Symmetrical smile. MUSCULOSKELETAL: Normal extremities with adequate strength and full range of motion. No lower extremity swelling or edema. No calf tenderness. LYMPHATICS: No significant lymphadenopathy is noted PSYCHIATRIC: Normal psychiatric evaluation. Limitations: no limitations Course Vital Signs 09/05/20 09/05/20 10:06 10:25 Temperature 101.3 F H Pulse Rate 99 98 Respiratory 20 20 Rate Blood Pressure 172/65 O2 Sat by Pulse 100 98 Oximetry Medical Decision Making - Medical Decision Making Chest x-ray shows a posterior infiltrate consistent with pneumonia. Patient has urinary tract infection. I started the patient on Levaquin. I spoke with Dr. Venegas and she agreed to admit the patient admitted the patient continued antibiotics on the floor. - Lab Data Result diagrams: 09/05/20 10:23 09/05/20 10:23 Lab Results 09/05/20 09/05/20 09/05/20 Range/Units 10:23 10:23 10:23 WBC 18.8 H (3.8-10.6) k/uL RBC 3.27 L (3.80-5.40) m/uL Hgb 10.5 L (11.4-16.0) gm/dL Hct 33.4 L (34.0-46.0) % MCV 102.1 H (80.0-100.0) fL MCH 32.0 (25.0-35.0) pg MCHC 31.3 (31.0-37.0) g/dL RDW 16.4 H (11.5-15.5) % Plt Count 217 (150-450) k/uL MPV 8.4 Neutrophils % 90 % Lymphocytes % 5 % Monocytes % 4 % Eosinophils % 1 % Basophils % 0 % Neutrophils # 16.8 H (1.3-7.7) k/uL Lymphocytes # 0.9 L (1.0-4.8) k/uL Monocytes # 0.8 (0-1.0) k/uL Eosinophils # 0.1 (0-0.7) k/uL Basophils # 0.0 (0-0.2) k/uL Anisocytosis Slight Macrocytosis Slight PT 10.5 (9.0-12.0) sec INR 1.0 (<1.2) APTT 26.3 (22.0-30.0) sec Sodium (137-145) mmol/L Potassium (3.5-5.1) mmol/L Chloride (98-107) mmol/L Carbon Dioxide (22-30) mmol/L Anion Gap mmol/L BUN (7-17) mg/dL Creatinine (0.52-1.04) mg/dL Est GFR (CKD-EPI)AfAm (>60 ml/min/1.73 sqM) Est GFR (CKD-EPI)NonAf (>60 ml/min/1.73 sqM) Glucose (74-99) mg/dL Plasma Lactic Acid Satinder (0.7-2.0) mmol/L Calcium (8.4-10.2) mg/dL Total Bilirubin (0.2-1.3) mg/dL AST (14-36) U/L ALT (4-34) U/L Alkaline Phosphatase (38-126) U/L Total Protein (6.3-8.2) g/dL Albumin (3.5-5.0) g/dL Urine Color Yellow Urine Appearance Turbid H (Clear) Urine pH 6.0 (5.0-8.0) Ur Specific Wilmore 1.020 (1.001-1.035) Urine Protein 3+ H (Negative) Urine Glucose (UA) Negative (Negative) Urine Ketones Negative (Negative) Urine Blood Moderate H (Negative) Urine Nitrite Negative (Negative) Urine Bilirubin Negative (Negative) Urine Urobilinogen <2.0 (<2.0) mg/dL Ur Leukocyte Esterase Large H (Negative) Urine RBC 175 H (0-5) /hpf Urine WBC >182 H (0-5) /hpf Urine WBC Clumps Many H (None) /hpf Urine Bacteria Many H (None) /hpf Coronavirus (PCR) (Not Detectd) 09/05/20 09/05/20 09/05/20 Range/Units 10:23 10:23 10:23 WBC (3.8-10.6) k/uL RBC (3.80-5.40) m/uL Hgb (11.4-16.0) gm/dL Hct (34.0-46.0) % MCV (80.0-100.0) fL MCH (25.0-35.0) pg MCHC (31.0-37.0) g/dL RDW (11.5-15.5) % Plt Count (150-450) k/uL MPV Neutrophils % % Lymphocytes % % Monocytes % % Eosinophils % % Basophils % % Neutrophils # (1.3-7.7) k/uL Lymphocytes # (1.0-4.8) k/uL Monocytes # (0-1.0) k/uL Eosinophils # (0-0.7) k/uL Basophils # (0-0.2) k/uL Anisocytosis Macrocytosis PT (9.0-12.0) sec INR (<1.2) APTT (22.0-30.0) sec Sodium 130 L (137-145) mmol/L Potassium 5.0 (3.5-5.1) mmol/L Chloride 86 L (98-107) mmol/L Carbon Dioxide 24 (22-30) mmol/L Anion Gap 20 mmol/L BUN 59 H (7-17) mg/dL Creatinine 6.70 H (0.52-1.04) mg/dL Est GFR (CKD-EPI)AfAm 6 (>60 ml/min/1.73 sqM) Est GFR (CKD-EPI)NonAf 6 (>60 ml/min/1.73 sqM) Glucose 219 H (74-99) mg/dL Plasma Lactic Acid Satinder 2.1 H* (0.7-2.0) mmol/L Calcium 9.0 (8.4-10.2) mg/dL Total Bilirubin 0.9 (0.2-1.3) mg/dL AST 29 (14-36) U/L ALT 15 (4-34) U/L Alkaline Phosphatase 134 H (38-126) U/L Total Protein 7.0 (6.3-8.2) g/dL Albumin 3.7 (3.5-5.0) g/dL Urine Color Urine Appearance (Clear) Urine pH (5.0-8.0) Ur Specific Wilmore (1.001-1.035) Urine Protein (Negative) Urine Glucose (UA) (Negative) Urine Ketones (Negative) Urine Blood (Negative) Urine Nitrite (Negative) Urine Bilirubin (Negative) Urine Urobilinogen (<2.0) mg/dL Ur Leukocyte Esterase (Negative) Urine RBC (0-5) /hpf Urine WBC (0-5) /hpf Urine WBC Clumps (None) /hpf Urine Bacteria (None) /hpf Coronavirus (PCR) Not Detected (Not Detectd) Disposition Clinical Impression: Pneumonia, Urinary tract infection Disposition: ADMITTED IP TO THIS HOSP Referrals: Kut,Stevenson A, MD [Primary Care Provider] - 1-2 days Time of Disposition: 11:18
[2020-09-05 10:47] LABS: Anisocytosis Slight; Basophils % (A) 0 %; Eosinophils # (A) 0.1 k/uL (0-0.7); Eosinophils % (A) 1 %; HCT 33.4 % (34.0-46.0); HGB 10.5 gm/dL (11.4-16.0); Lymphocytes # (A) 0.9 k/uL (1.0-4.8); Lymphocytes % (A) 5 %; MCHC 31.3 g/dL (31.0-37.0); MCV 102.1 fL (80.0-100.0); Macrocytosis Slight; Mean Platelet Volume 8.4; Monocytes # (A) 0.8 k/uL (0-1.0); Monocytes % (A) 4 %; Neutrophils # (A) 16.8 k/uL (1.3-7.7); Neutrophils % (A) 90 %; Platelet Count 217 k/uL (150-450); RBC 3.27 m/uL (3.80-5.40); RDW 16.4 % (11.5-15.5); WBC 18.8 k/uL (3.8-10.6)
[2020-09-05 10:54] LABS: Appearance,Urine Turbid (Clear); Bacteria,Urine Many /hpf; Bilirubin,Urine Negative (Negative); Blood,Urine Moderate (Negative); Color,Urine Yellow; Glucose,Urine (UA) Negative (Negative); Ketones,Urine Negative (Negative); Leukocyte Esterase,Urine Large (Negative); Nitrite,Urine Negative (Negative); Protein,Urine 3+ (Negative); RBC,Urine 175 /hpf (0-5); Urobilinogen,Urine <2.0 mg/dL (<2.0); WBC,Urine >182 /hpf (0-5)
[2020-09-05 10:58] LABS: Partial Thromboplastin Time 26.3 sec (22.0-30.0); Prothrombin Time 10.5 sec (9.0-12.0)
[2020-09-05 11:02] LABS: Albumin 3.7 g/dL (3.5-5.0); Total Bilirubin 0.9 mg/dL (0.2-1.3)
--- NOTE | 2020-09-05 11:09 | XR ---
EXAMINATION TYPE: XR chest 2V DATE OF EXAM: 09/05/2020 COMPARISON: 06/12/2020 INDICATION: Fever, weakness TECHNIQUE: Frontal and lateral views of the chest are obtained. FINDINGS: The heart size is prominent. The pulmonary vasculature is upper limits for normal. Posterior infiltrate is present. Correlate for pneumonia or atelectasis. Atypical pulmonary edema cou ld be considered. IMPRESSION: 1. Posterior infiltrate. Correlate for atelectasis pneumonia or atypical pulmonary edema. 2. Cardiomegaly with prominent pulmonary vascular markings.
[2020-09-05] MEDS ORDERED: LEVOFLOXACIN 500MG-D5W PMX 500 MG in DEXTROSE/WATER 1 100ML.BAG IVPB STA (11:13)
[2020-09-05] MEDS ORDERED: PNEUMONIA PROTOCOL UTILIZED 1 EACH MISC PO PRN (11:19)
[2020-09-05] MEDS ORDERED: valACYclovir HCL 1,000 MG TABLET PO SCH (13:45)
--- NOTE | 2020-09-05 16:54 | P.HPIM ---
History of Present Illness H&P Date: 09/05/20 This is a 74-year-old female patient of Dr. Farias with past medical history of proximal atrial fibrillation, coronary artery disease status post RI, denies any history of COPD or asthma. Uses CPAP at home frequently. chronic diastolic heart failure, diabetes, hyperlipidemia, hypertension, hypertensive cardiovascular disease, end-stage renal disease on hemodialysis Monday and Monday, aortic stenosis status post TAVR in 2017, with h/o multiple urinary tract infection treated by Dr Borrego who also did cystoscopy on 05/22 done for recurrent UIT followed by bactrim for klebsiella and ecoli uti on 06/07/2020. Patient's urinalysis multidrug-resistant tenderness difficult to treat as outpatient. Dr. Borrego was planning to send the patient can't afford if no improvement seen. She started feeling unwell on Monday and had a full prescription of doxycycline and home which she started taking. Patient took doxycycline for 2 days with no improvement in sensation and decided to come to ER. Patient does document fever and chills at home. She denies any abdominal pain, diarrhea or constipation. Vitals evaluated in the assisted temp of 101 pulse 84 respiratory rate 18 blood pressure 138/88. Labs refuses this today WBC of 18.8 hemoglobin 10.5 MCV 102 platelet 217, INR 1, sodium 1:30, potassium 5, chloride 86, BUN 59 creatinine 6.7 glucose 219 lactic acid 2.1 and liver enzymes are normal and alkaline phosphatase 134. Urinalysis positive for UTI with positive RBC 175 WBC 182 positive leukocyte esterase and negative nitrites. Chest x-ray suggestive of the stated infiltrate concern for atelectasis versus pneumonia. Repeat chest x-ray will be obtained tomorrow. Continue patient on cefepime 2 g every 8 hours. Patient has sepsis secondary to UTI. IV fluids can cannot be continued as patient is on dialysis and is due for her dialysis. Review of Systems Constitutional: Positive for chills positive for fever, , positive for lethargy, poor were repeated and weakness Denies weight loss Eyes: denies decreased vision, denies diplopia, denies discharge, denies pain Ears: deny: decreased hearing Ears, nose, mouth and throat: Denies dental pain, Denies headache, Denies nasal discharge, Denies nose pain Cardiovascular: Denies chest pain, Denies decreased exercise tolerance, Denies edema, Denies high blood pressure, Denies irregular heart beat, Denies palpitations, Denies paroxysmal nocturnal dyspnea, Denies rapid heart beat, Denies shortness of breath Respiratory: Denies congestion, Denies cough, Denies cough with sputum, Denies dyspnea, Denies home oxygen, Denies wheezing Gastrointestinal: Denies abdominal pain Genitourinary: Denies dysuria, Denies flank pain, Denies kidney stones, Denies menorrhagia, Denies urgency, Denies urinary frequency Musculoskeletal: Denies gait dysfunction, Denies limitation of motion, Denies morning stiffness, Denies muscle cramps Integumentary: Denies rash, Denies wounds, Denies brittle nails, Denies change in hair/nails, Denies darkening of skin Neurological: Denies balance difficulties, Denies change in speech, Denies double vision, Denies gait dysfunction, Denies loss of vision, Denies motor disturbance, Denies numbness, Denies paralysis, Denies paresthesias, Denies seizures Psychiatric: Denies anxiety, Denies depression Endocrine: Denies excessive sweating, Denies excessive thirst, Denies high blood sugars, Denies palpitations Hematologic/Lymphatic: Denies easy bruising, Denies lymphadenopathy Past Medical History Past Medical History: Atrial Fibrillation, Coronary Artery Disease (CAD), Heart Failure, Diabetes Mellitus, Dialysis, GERD/Reflux, GI Bleed, Hyperlipidemia, Hypertension, Myocardial Infarction (RI), Pneumonia, Renal Disease, Sleep Apnea/CPAP/BIPAP, Vascular Disorder Additional Past Medical History / Comment(s): HEMODIALYSIS- MONDAY,MONDAY,AND MONDAY . USES WHEELCHAIR-TRANSFERS ONLY -CAN TAKE A COUPLE OF STEPS, hx. GI bleed >year ago, SOB w/exertion, uses oxygen prn @2l, see Dr Combs H & P. TAVR Last Myocardial Infarction Date:: 2015 History of Any Multi-Drug Resistant Organisms: MRSA Date of last positivie culture/infection: 02/09/18 MDRO Source:: LT THIRD TOE Past Surgical History: Back Surgery, Cholecystectomy, Heart Catheterization, Heart Catheterization With Stent, Hysterectomy, Orthopedic Surgery Additional Past Surgical History / Comment(s): PCI with stents, several back surgeries-lumbar, bilateral carpal tunnel releases, bilateral cataract removals, port then fistula for hemodialysis. PTBA to left leg 03-02-18. TAVR in [address] Rock at [facility] Past Anesthesia/Blood Transfusion Reactions: Previous Problems w/ Anesthesia Additional Past Anesthesia/Blood Transfusion Reaction / Comment(s): Confusion that resolved. Date of Last Stent Placement:: 10/06/17 Past Psychological History: No Psychological Hx Reported Smoking Status: Never smoker Past Alcohol Use History: None Reported Past Drug Use History: None Reported - Past Family History Father Additional Family Medical History / Comment(s): Brain aneurysm ; age 72 Sister(s) Family Medical History: Hypertension Additional Family Medical History / Comment(s): Aortic stenosis; mitral valve disease Mother Family Medical History: No Reported History, AFIB, CVA/TIA, Hypertension Additional Family Medical History / Comment(s): mother age 83 Daughter(s) Family Medical History: Asthma Son(s) Family Medical History: Asthma Medications and Allergies Home Medications Medication Instructions Recorded Confirmed Type DULoxetine HCL [Cymbalta] 60 mg PO DAILY 08/04/14 09/05/20 History Amiodarone HCl [Pacerone] 100 mg PO DAILY 11/22/15 09/05/20 History Ezetimibe [Zetia] 10 mg PO DAILY 11/22/15 09/05/20 History Gabapentin [Neurontin] 300 mg PO BID #60 capsule 11/27/15 09/05/20 Rx Omeprazole 20 mg PO DAILY 12/25/16 09/05/20 History Magnesium Oxide [Mag-Ox] 250 mg PO DAILY 05/05/17 09/05/20 History Clopidogrel [Plavix] 75 mg PO DAILY #30 tab 08/21/17 09/05/20 Rx Aspirin [Adult Low Dose Aspirin EC] 81 mg PO DAILY 03/02/18 09/05/20 History metOLazone [Zaroxolyn] 5 mg PO BID 02/11/19 09/05/20 History Cranberry 4200mg 4,200 mg PO BID 01/12/20 09/05/20 History Furosemide [Lasix] 80 mg PO BID 01/12/20 09/05/20 History Insulin Aspart [NovoLOG Flexpen] 10 - 12 units SQ AC-TID 01/12/20 09/05/20 History Insulin Glargine,Hum.rec.anlog 20 units SQ BID 01/12/20 09/05/20 History [Lantus Solostar] Metoprolol Succinate (ER) [Toprol 50 mg PO DAILY 01/12/20 09/05/20 History XL] Sevelamer [Renvela] 800 mg PO AC-BRKFST 01/12/20 09/05/20 History Ferrous Sulfate [Iron (65 MG 325 mg PO DAILY 06/09/20 09/05/20 History Elemental)] Vitamin C/Biotin [Hair, Skin and 1 tab PO BID 06/09/20 09/05/20 History Nails] Methenamine Hippurate 1 gm PO BID #60 tablet 06/12/20 09/05/20 Rx Cholecalciferol [Vitamin D3 (25 50 mcg PO DAILY 09/05/20 09/05/20 History Mcg = 1000 Iu)] Midodrine HCl [ProAmatine] 10 mg PO DIRECTED PRN 09/05/20 09/05/20 History Allergies Allergy/AdvReac Type Severity Reaction Status Date / Time KUSHAL Inhibitors Allergy Swelling Verified 09/05/20 12:05 ARB-Angiotensin Receptor Allergy Swelling Verified 09/05/20 12:05 Antagonist cephalexin monohydrate Allergy Rash/Hives, Verified 09/05/20 12:05 [From Keflex] MOUTH SWELLING propoxyphene HCl AdvReac Hallucinati Verified 09/05/20 12:05 [From Darvon] ons Qtzmaib-Kun-Mfq Reductase AdvReac Myalgia Verified 09/05/20 12:05 Inhibitor Physical Exam Vitals: Vital Signs Temp Pulse Resp BP Pulse Ox 09/05/20 11:31 98.7 F 95 18 171/62 100 09/05/20 10:25 98 20 172/65 98 09/05/20 10:06 101.3 F H 99 20 100 Intake and Output 09/04/20 09/05/20 09/05/20 22:59 06:59 14:59 Other: Weight 83.915 kg - Constitutional General appearance: cooperative, no acute distress, obese - EENT Eyes: anicteric sclerae, PERRLA, normal appearance ENT: hearing grossly normal - Neck Neck: no lymphadenopathy, normal ROM, no other, no rigidity, no stridor, no thyromegaly - Respiratory Respiratory: bilateral: CTA, negative: diminished, dullness, rales, rhonchi - Cardiovascular Rhythm: regular Heart sounds: normal: S1, S2 Abnormal Heart Sounds: 3/6 systolic murmur, no diastolic murmur, no rub, no S3 Gallop, no S4 Gallop, no click, no other - Gastrointestinal General gastrointestinal: normal bowel sounds, soft nontender - Integumentary Integumentary: no rash - Neurologic Neurologic: CNII-XII intact - Musculoskeletal Musculoskeletal: gait not assessed, strength equal bilaterally - Psychiatric Psychiatric: A&O x's 3, appropriate affect Results CBC & Chem 7: 09/05/20 10:23 09/05/20 10:23 Labs: Abnormal Lab Results - Last 24 Hours (Table) 09/05/20 09/05/20 09/05/20 Range/Units 10:23 10:23 10:23 WBC 18.8 H (3.8-10.6) k/uL RBC 3.27 L (3.80-5.40) m/uL Hgb 10.5 L (11.4-16.0) gm/dL Hct 33.4 L (34.0-46.0) % MCV 102.1 H (80.0-100.0) fL RDW 16.4 H (11.5-15.5) % Neutrophils # 16.8 H (1.3-7.7) k/uL Lymphocytes # 0.9 L (1.0-4.8) k/uL Sodium 130 L (137-145) mmol/L Chloride 86 L (98-107) mmol/L BUN 59 H (7-17) mg/dL Creatinine 6.70 H (0.52-1.04) mg/dL Glucose 219 H (74-99) mg/dL Plasma Lactic Acid Satinder (0.7-2.0) mmol/L Alkaline Phosphatase 134 H (38-126) U/L Urine Appearance Turbid H (Clear) Urine Protein 3+ H (Negative) Urine Blood Moderate H (Negative) Ur Leukocyte Esterase Large H (Negative) Urine RBC 175 H (0-5) /hpf Urine WBC >182 H (0-5) /hpf Urine WBC Clumps Many H (None) /hpf Urine Bacteria Many H (None) /hpf 09/05/20 Range/Units 10:23 WBC (3.8-10.6) k/uL RBC (3.80-5.40) m/uL Hgb (11.4-16.0) gm/dL Hct (34.0-46.0) % MCV (80.0-100.0) fL RDW (11.5-15.5) % Neutrophils # (1.3-7.7) k/uL Lymphocytes # (1.0-4.8) k/uL Sodium (137-145) mmol/L Chloride (98-107) mmol/L BUN (7-17) mg/dL Creatinine (0.52-1.04) mg/dL Glucose (74-99) mg/dL Plasma Lactic Acid Satinder 2.1 H* (0.7-2.0) mmol/L Alkaline Phosphatase (38-126) U/L Urine Appearance (Clear) Urine Protein (Negative) Urine Blood (Negative) Ur Leukocyte Esterase (Negative) Urine RBC (0-5) /hpf Urine WBC (0-5) /hpf Urine WBC Clumps (None) /hpf Urine Bacteria (None) /hpf Thrombosis Risk Factor Assmnt - DVT/VTE Prophylaxis DVT/VTE Prophylaxis: Pharmacologic Prophylaxis ordered Assessment and Plan Plan: 1. Sepsis secondary to UTI. Continue levofloxacin 500 every 48 hours. Infectious disease consulted. IV fluids Initiated due to being on dialysis. Patient is due for her dialysis today. Urine culture is pending 2. Bilateral pleural effusion, small posterior infiltrate consistent with atelectasis.. Unlikely to have pneumonia repeat chest x-ray tomorrow morning. 3 Recurrent UTI, status post cystoscopy, by Dr. Borrego, previous culture positive for E. coli and klebsiella during last cultureson chronic prophylactic antibiotics including nitrofurantoin and Mandelamine 4 Oliguria secondary to end-stage kidney disease, still making 400 mL per day, consult with nephrology, on hemodialysis Monday and Monday 5 End-stage renal disease on hemodialysis Monday and Monday, 6 Chronic diastolic heart failure. Continue hemodialysis. Continue home dose of Lasix at 80 mg twice daily as well as metoprolol 50 mg Monday, and metolazone 5 mg twice a day 7 History of aortic stenosis status post TAVR. 8 Hypertension cardiovascular disease. Continue amiodarone 100 mg daily and metoprolol. 10 Paroxysmal atrial fibrillation. Continue amiodarone 100 mg once daily and metoprolol a history of GI bleed no past several years ago, not on any anticoagulation due to increased risk of fall and GI bleeding 11 History of myocardial infarction and coronary artery disease status post LAD stent in July 2017 and left circumflex in August 2017. Continue Toprol-XL 50 mg once daily, and Plavix 12 Diabetes mellitus type 2, insulin requiring. Continue insulin sliding sc eboni. 13 GERD continue Protonix. 14 History of hyperlipidemia continue Zetia 10mg daily 15 Obstructive sleep apnea, on CPAP machine at night, along with O2 supplementation 16. Diabetic peripheral neuropathy continue gabapentin 300 mg twice daily. 17. Recurrent depression. Continue Cymbalta 60 mg orally once daily DVT prophylaxis. Heparin subcu every 12 GI prophylaxis continue Protonix.
[2020-09-05 17:31] LABS: Glucose,Whole Blood 198 mg/dL (75-99)
[2020-09-05] MEDS: FUROSEMIDE 80 MG TAB PO SCH (17:40)
[2020-09-05] MEDS: INSULIN ASPART (NovoLOG) 100 UNIT/ML VIAL SQ SCH (17:40)
[2020-09-05 20:09] LABS: Glucose,Whole Blood 202 mg/dL (75-99)
[2020-09-05] MEDS: metOLazone 5 MG TAB PO SCH (20:16)
[2020-09-05] MEDS: GABAPENTIN 300 MG CAP PO SCH (20:16)
[2020-09-05] MEDS: INSULIN DETEMIR (LEVEMIR) 100 UNIT/ML SYR SQ SCH (20:16)
[2020-09-06 07:19] LABS: Glucose,Whole Blood 164 mg/dL (75-99)
--- NOTE | 2020-09-06 07:52 | XR ---
EXAMINATION TYPE: XR chest 2V DATE OF EXAM: 09/06/2020 COMPARISON: 09/05/2020 INDICATION: Pneumonia TECHNIQUE: Frontal and lateral views of the chest are obtained. FINDINGS: The heart size is mild to prominent. The pulmonary vasculature is somewhat prominent. The lungs are clear. Fixation rods are within the lower thoracic spine. IMPRESSION: 1. Clinical correlation recommended for mild volume overload
[2020-09-06] MEDS: INSULIN DETEMIR (LEVEMIR) 100 UNIT/ML SYR SQ SCH ×2 (07:54→21:15)
[2020-09-06] MEDS: INSULIN ASPART (NovoLOG) 100 UNIT/ML VIAL SQ SCH ×3 (07:55→17:35)
[2020-09-06] MEDS: FUROSEMIDE 80 MG TAB PO SCH ×2 (08:02→15:50)
[2020-09-06] MEDS: DULoxetine HCL 60 MG CAPSULE.DR PO SCH (08:02)
[2020-09-06] MEDS: CHOLECALCIFEROL 25 MCG (1000 IU) TABLET PO SCH (08:02)
[2020-09-06] MEDS: ASPIRIN 81 MG PO SCH (08:02)
[2020-09-06] MEDS: AMIODARONE 100 MG TAB PO SCH (08:02)
[2020-09-06] MEDS: METOPROLOL SUCCINATE (ER) 50 MG TAB.ER.24H PO SCH (08:02)
[2020-09-06] MEDS: MAGNESIUM OXIDE 400 MG TAB PO SCH (08:02)
[2020-09-06] MEDS: EZETIMIBE 10 MG TAB PO SCH (08:02)
[2020-09-06] MEDS: metOLazone 5 MG TAB PO SCH ×2 (08:02→21:15)
[2020-09-06] MEDS: PANTOPRAZOLE 40 MG TABLET PO SCH (08:02)
[2020-09-06] MEDS: CLOPIDOGREL 75 MG TAB PO SCH (08:02)
[2020-09-06] MEDS: SEVELAMER 800 MG TAB PO SCH (08:02)
[2020-09-06] MEDS: GABAPENTIN 300 MG CAP PO SCH ×2 (08:02→20:19)
--- NOTE | 2020-09-06 09:45 | P.NPCON ---
History of Present Illness - Reason for Consult end stage renal disease - History of Present Illness Reason for consultation: End-stage renal disease History of present illness: The patient is a 74-year-old female seen in renal consultation for end-stage renal disease. Patient is maintained on hemodialysis on Monday schedule. Patient presented to the hospital generalized weakness. She was also complaining of a UTI which has been ongoing for the last couple of months. She feels quite weak. Feels tired. She did have a temperature of 1.5F this admission. Blood pressure not low. On 2 L nasal cannula. Not responding much to questions. Chest x-ray showed possible pneumonia. She is on antibiotics. She scheduled to undergo hemodialysis today as she did not get a treatment yesterday. Patient's blood culture did come back as gram-negative bacilli. Vital signs are stable. General: The patient appeared well nourished and normally developed. HEENT: Head exam is unremarkable. On nasal cannula. LUNGS: Breath sounds decreased. HEART: Rate and Rhythm are regular. ABDOMEN: Soft, obese. EXTREMITITES: No edema. Past Medical History Past Medical History: Atrial Fibrillation, Coronary Artery Disease (CAD), Heart Failure, Diabetes Mellitus, Dialysis, GERD/Reflux, GI Bleed, Hyperlipidemia, Hypertension, Myocardial Infarction ([place]), Pneumonia, Renal Disease, Sleep Apnea/CPAP/BIPAP, Vascular Disorder Additional Past Medical History / Comment(s): HEMODIALYSIS- MONDAY,MONDAY,AND MONDAY . USES WHEELCHAIR-TRANSFERS ONLY -CAN TAKE A COUPLE OF STEPS, hx. GI bleed >year ago, SOB w/exertion, uses oxygen prn @2l, see Dr Combs [facility] & P. TAVR Last Myocardial Infarction Date:: 2015 History of Any Multi-Drug Resistant Organisms: MRSA Date of last positivie culture/infection: 02/09/18 MDRO Source:: LT THIRD TOE Past Surgical History: Back Surgery, Cholecystectomy, Heart Catheterization, Heart Catheterization With Stent, Hysterectomy, Orthopedic Surgery Additional Past Surgical History / Comment(s): PCI with stents, several back surgeries-lumbar, bilateral carpal tunnel releases, bilateral cataract removals, port then fistula for hemodialysis. PTBA to left leg 03-02-18. TAVR in [address] Rock at [facility] Past Anesthesia/Blood Transfusion Reactions: Previous Problems w/ Anesthesia Additional Past Anesthesia/Blood Transfusion Reaction / Comment(s): Confusion that resolved. Date of Last Stent Placement:: 10/06/17 Past Psychological History: No Psychological Hx Reported Smoking Status: Never smoker Past Alcohol Use History: None Reported Past Drug Use History: None Reported - Past Family History Father Additional Family Medical History / Comment(s): Brain aneurysm ; age 72 Sister(s) Family Medical History: Hypertension Additional Family Medical History / Comment(s): Aortic stenosis; mitral valve disease Mother Family Medical History: No Reported History, AFIB, CVA/TIA, Hypertension Additional Family Medical History / Comment(s): mother age 83 Daughter(s) Family Medical History: Asthma Son(s) Family Medical History: Asthma Medications and Allergies Home Medications Medication Instructions Recorded Confirmed Type DULoxetine HCL [Cymbalta] 60 mg PO DAILY 08/04/14 09/05/20 History Amiodarone HCl [Pacerone] 100 mg PO DAILY 11/22/15 09/05/20 History Ezetimibe [Zetia] 10 mg PO DAILY 11/22/15 09/05/20 History Gabapentin [Neurontin] 300 mg PO BID #60 capsule 11/27/15 09/05/20 Rx Omeprazole 20 mg PO DAILY 12/25/16 09/05/20 History Magnesium Oxide [Mag-Ox] 250 mg PO DAILY 05/05/17 09/05/20 History Clopidogrel [Plavix] 75 mg PO DAILY #30 tab 08/21/17 09/05/20 Rx Aspirin [Adult Low Dose Aspirin EC] 81 mg PO DAILY 03/02/18 09/05/20 History metOLazone [Zaroxolyn] 5 mg PO BID 02/11/19 09/05/20 History Cranberry 4200mg 4,200 mg PO BID 01/12/20 09/05/20 History Furosemide [Lasix] 80 mg PO BID 01/12/20 09/05/20 History Insulin Aspart [NovoLOG Flexpen] 10 - 12 units SQ AC-TID 01/12/20 09/05/20 History Insulin Glargine,Hum.rec.anlog 20 units SQ BID 01/12/20 09/05/20 History [Lantus Solostar] Metoprolol Succinate (ER) [Toprol 50 mg PO DAILY 01/12/20 09/05/20 History XL] Sevelamer [Renvela] 800 mg PO AC-BRKFST 01/12/20 09/05/20 History Ferrous Sulfate [Iron (65 MG 325 mg PO DAILY 06/09/20 09/05/20 History Elemental)] Vitamin C/Biotin [Hair, Skin and 1 tab PO BID 06/09/20 09/05/20 History Nails] Methenamine Hippurate 1 gm PO BID #60 tablet 06/12/20 09/05/20 Rx Cholecalciferol [Vitamin D3 (25 50 mcg PO DAILY 09/05/20 09/05/20 History Mcg = 1000 Iu)] Midodrine HCl [ProAmatine] 10 mg PO DIRECTED PRN 09/05/20 09/05/20 History Allergies Allergy/AdvReac Type Severity Reaction Status Date / Time KUSHAL Inhibitors Allergy Swelling Verified 09/05/20 12:05 ARB-Angiotensin Receptor Allergy Swelling Verified 09/05/20 12:05 Antagonist cephalexin monohydrate Allergy Rash/Hives, Verified 09/05/20 12:05 [From Keflex] MOUTH SWELLING propoxyphene HCl AdvReac Hallucinati Verified 09/05/20 12:05 [From Darvon] ons [id number]-Vgf Reductase AdvReac Myalgia Verified 09/05/20 12:05 Inhibitor Physical Exam Vitals: Vital Signs Temp Pulse Pulse Resp BP BP Pulse Ox 09/06/20 07:53 100.5 F H 112 H 20 174/74 94 L 09/06/20 02:01 99.3 F 106 H 17 145/53 91 L 09/05/20 20:07 98.8 F 100 18 152/70 96 09/05/20 17:33 98.5 F 90 18 146/72 100 09/05/20 16:56 98.7 F 88 18 130/58 100 09/05/20 16:00 88 18 130/58 100 09/05/20 15:00 87 18 140/61 100 09/05/20 14:42 86 18 124/52 100 09/05/20 11:31 98.7 F 95 18 171/62 100 09/05/20 10:25 98 20 172/65 98 09/05/20 10:06 101.3 F H 99 20 100 Intake and Output 09/05/20 09/06/20 09/06/20 22:59 06:59 14:59 Other: Voiding Method Bedside Commode Bedpan Diaper Incontinent # Voids 0 Results - Lab Results Most recent lab results Calcium 9.0 mg/dL (8.4-10.2) 09/05/20 10:23 09/05/20 10:23 09/05/20 10:23 Assessment and Plan Plan: Assessment: 1. End-stage renal disease maintained on hemodialysis on Monday schedule. 2. Gram-negative bacteremia. Possible source pneumonia versus UTI. On antibiotics. 3. Hyponatremia secondary to chronic kidney disease. 4. Diabetes mellitus. 5. 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 Plan: Hemodialysis today. Follow-up cultures. Antibiotics per infectious disease. Thank you for the consultation. I will continue to follow the patient with you during her hospital stay.
[2020-09-06 11:23] LABS: Basophils # (A) 0.1 k/uL (0-0.2); Basophils % (A) 0 %; Eosinophils % (A) 0 %; HCT 30.1 % (34.0-46.0); HGB 9.9 gm/dL (11.4-16.0); Lymphocytes # (A) 0.7 k/uL (1.0-4.8); Lymphocytes % (A) 6 %; MCH 32.9 pg (25.0-35.0); MCV 99.9 fL (80.0-100.0); Macrocytosis Slight; Mean Platelet Volume 8.6; Monocytes # (A) 0.7 k/uL (0-1.0); Monocytes % (A) 6 %; Neutrophils % (A) 86 %; Platelet Count 190 k/uL (150-450); RBC 3.01 m/uL (3.80-5.40); RDW 15.9 % (11.5-15.5); WBC 12.8 k/uL (3.8-10.6)
[2020-09-06 11:30] LABS: Glucose,Whole Blood 173 mg/dL (75-99)
[2020-09-06 11:31] LABS: ALT 13 U/L (4-34); AST 24 U/L (14-36); African American GFR (CKD) 5 (>60 ml/min/1.73 sqM); Albumin 3.6 g/dL (3.5-5.0); Albumin/Globulin Ratio 1.2; Alkaline Phosphatase 133 U/L (38-126); Anion Gap 20 mmol/L; Blood Urea Nitrogen 74 mg/dL (7-17); Calcium 8.9 mg/dL (8.4-10.2); Carbon Dioxide 23 mmol/L (22-30); Chloride 84 mmol/L (98-107); Globulin 3.1 g/dL; Glucose 158 mg/dL (74-99); Non-African American GFR(CKD) 4 (>60 ml/min/1.73 sqM); Potassium 5.3 mmol/L (3.5-5.1); Sodium 127 mmol/L (137-145); Total Bilirubin 0.7 mg/dL (0.2-1.3); Total Protein 6.7 g/dL (6.3-8.2)
[2020-09-06] MEDS: MIDODRINE 5 MG TAB PO PRN (14:04)
[2020-09-06] MEDS ORDERED: LEVOFLOXACIN 500MG-D5W PMX 500 MG in DEXTROSE/WATER 1 100ML.BAG IVPB SCH (14:30)
--- NOTE | 2020-09-06 14:33 | P.PN ---
Subjective Progress Note Date: 09/06/20 This is a 74-year-old female patient of Dr. Farias with past medical history of proximal atrial fibrillation, coronary artery disease status post LA, denies any history of COPD or asthma. Uses CPAP at home frequently. chronic diastolic heart failure, diabetes, hyperlipidemia, hypertension, hypertensive car diovascular disease, end-stage renal disease on hemodialysis Monday and Monday, aortic stenosis status post TAVR in 2017, with h/o multiple urinary tract infection treated by Dr Borrego who also did cystoscopy on 05/22 done for recurrent UIT followed by bactrim for klebsiella and ecoli uti on 06/07/2020. Patient's urinalysis multidrug-resistant tenderness difficult to treat as outpatient. Dr. Borrego was planning to send the patient can't afford if no improvement seen. She started feeling unwell on Monday and had a full prescription of doxycycline and home which she started taking. Patient took doxycycline for 2 days with no improvement in sensation and decided to come to ER. Patient does document fever and chills at home. She denies any abdominal pain, diarrhea or constipation. Vitals evaluated in the assisted temp of 101 pulse 84 respiratory rate 18 blood pressure 138/88. Labs refuses this today WBC of 18.8 hemoglobin 10.5 MCV 102 platelet 217, INR 1, sodium 1:30, potassium 5, chloride 86, BUN 59 creatinine 6.7 glucose 219 lactic acid 2.1 and liver enzymes are normal and alkaline phosphatase 134. Urinalysis positive for UTI with positive RBC 175 WBC 182 positive leukocyte esterase and negative nitrites. Chest x-ray suggestive of the stated infiltrate concern for atelectasis versus pneumonia. Repeat chest x-ray will be obtained tomorrow. Continue patient on cefepime 2 g every 8 hours. Patient has sepsis secondary to UTI. IV fluids can cannot be continued as patient is on dialysis and is due for her dialysis. 09/06 patient evaluated at bedside appears much confused than yesterday. His short of breath on evaluation. Patient did not get her dialysis yesterday. She is not answering to questions and repeating the phrase" everything is going oppo site"patient gets confused easily and is not able to answer suspension appropriate he is oriented 2. Nephrology is evaluated the patient and recommend dialysis today. Vitals checked this morning patient had a temp of 100.5 pulse rate 112 blood pressure 170/74 requiring 1-2 L of oxygen saturating at 94% on assessment patient's blood work today WBC has improved from 18-12.8 hemoglobin is 9.9, platelets 05/06/1989 sodium has worsened from yesterday dropped to 127, potassium 5.3, chloride 84 bun is 74 creatinine 8.8, glucose 158 alkaline phosphatase is 133. Blood cultures are positive for gram-negative bacilli. Infectious disease consulted. Levofloxacin every 48 hours 500 mg IV Review of systems could not be obtained due to mental status Objective - Vital Signs Vital signs: Vital Signs Temp 99.1 F 09/06/20 08:30 Pulse 93 09/06/20 08:30 Resp 20 09/06/20 08:30 BP 147/69 09/06/20 08:30 Pulse Ox 93 L 09/06/20 08:30 Intake & Output 09/05/20 09/06/20 09/06/20 18:59 06:59 18:59 Weight 83.915 kg Other: Voiding Method Bedside Commode Bedside Commode Bedpan Diaper Diaper Incontinent Incontinent # Voids 0 - Exam - Constitutional General appearance: Confused - EENT Eyes: anicteric sclerae, PERRLA, normal appearance ENT: hearing grossly normal - Neck Neck: no lymphadenopathy, normal ROM, no other, no rigidity, no stridor, no thyromegaly - Respiratory Respiratory: bilateral: CTA, negative: diminished, dullness, rales, rhonchi - Cardiovascular Rhythm: regular Heart sounds: normal: S1, S2 Abnormal Heart Sounds: 3/6 systolic murmur, no diastolic murmur, no rub, no S3 Gallop, no S4 Gallop, no click, no other - Gastrointestinal General gastrointestinal: normal bowel sounds, soft nontender - Integumentary Integumentary: no rash - Neurologic Neurologic: Confused moves all extremities equally - Musculoskeletal Musculoskeletal: gait not assessed, strength equal bilaterally - Psychiatric Psychiatric: Drowsy &O x's 2 - Labs CBC & Chem 7: 09/06/20 11:12 09/06/20 11:12 Labs: Abnormal Lab Results - Last 24 Hours (Table) 09/05/20 09/05/20 09/05/20 Range/Units 10:23 17:30 20:06 WBC (3.8-10.6) k/uL RBC (3.80-5.40) m/uL Hgb (11.4-16.0) gm/dL Hct (34.0-46.0) % RDW (11.5-15.5) % Neutrophils # (1.3-7.7) k/uL Lymphocytes # (1.0-4.8) k/uL Sodium (137-145) mmol/L Potassium (3.5-5.1) mmol/L Chloride (98-107) mmol/L BUN (7-17) mg/dL Creatinine (0.52-1.04) mg/dL Glucose (74-99) mg/dL POC Glucose (mg/dL) 198 H 202 H (75-99) mg/dL Alkaline Phosphatase (38-126) U/L Procalcitonin 1.19 H (0.02-0.09) ng/mL 09/06/20 09/06/20 09/06/20 Range/Units 07:18 11:12 11:12 WBC 12.8 H (3.8-10.6) k/uL RBC 3.01 L (3.80-5.40) m/uL Hgb 9.9 L (11.4-16.0) gm/dL Hct 30.1 L (34.0-46.0) % RDW 15.9 H (11.5-15.5) % Neutrophils # 11.0 H (1.3-7.7) k/uL Lymphocytes # 0.7 L (1.0-4.8) k/uL Sodium 127 L (137-145) mmol/L Potassium 5.3 H (3.5-5.1) mmol/L Chloride 84 L (98-107) mmol/L BUN 74 H (7-17) mg/dL Creatinine 8.08 H* (0.52-1.04) mg/dL Glucose 158 H (74-99) mg/dL POC Glucose (mg/dL) 164 H (75-99) mg/dL Alkaline Phosphatase 133 H (38-126) U/L Procalcitonin (0.02-0.09) ng/mL 09/06/20 Range/Units 11:28 WBC (3.8-10.6) k/uL RBC (3.80-5.40) m/uL Hgb (11.4-16.0) gm/dL Hct (34.0-46.0) % RDW (11.5-15.5) % Neutrophils # (1.3-7.7) k/uL Lymphocytes # (1.0-4.8) k/uL Sodium (137-145) mmol/L Potassium (3.5-5.1) mmol/L Chloride (98-107) mmol/L BUN (7-17) mg/dL Creatinine (0.52-1.04) mg/dL Glucose (74-99) mg/dL POC Glucose (mg/dL) 173 H (75-99) mg/dL Alkaline Phosphatase (38-126) U/L Procalcitonin (0.02-0.09) ng/mL Microbiology - Last 24 Hours (Table) 09/05/20 10:23 Blood Culture Gram Stain - Preliminary Blood Blood Culture - Preliminary Escherichia coli 09/05/20 10:24 Blood Culture Gram Stain - Preliminary Blood 09/05/20 10:23 Blood Culture - Final Blood 09/05/20 10:23 Blood Culture - Final Blood 09/05/20 10:23 Urine Culture - Preliminary Urine,Catheterized Assessment and Plan Plan: 1. Sepsis secondary to UTI. Gram-negative bacteremia Continue levofloxacin 500 every 48 hours. Infectious disease consulted. IV fluids not Initiated due to being on dialysis. Did not receive dialysis yesterday Patient is due for her dialysis today. Urine culture is pending. Blood culture obtained 2. Bilateral pleural effusion, small posterior infiltrate consistent with atelectasis.. Unlikely to have pneumonia repeat chest x-ray suggests mild volume overload 3 Recurrent UTI, status post cystoscopy, by Dr. Borrego, previous culture positive for E. coli and klebsiella during last cultureson chronic prophylactic antibiotics including nitrofurantoin and Mandelamine 4 Oliguria secondary to end-stage kidney disease, still making 400 mL per day, consult with nephrology, on hemodialysis Monday and Monday 5 End-stage renal disease on hemodialysis Monday and Monday, 6 Chronic diastolic heart failure. Continue hemodialysis. Continue home dose of Lasix at 80 mg twice daily as well as metoprolol 50 mg Monday, and metolazone 5 mg twice a day 7 History of aortic stenosis status post TAVR. 8 Hypertension cardiovascular disease. Continue amiodarone 100 mg daily and metoprolol. 10 Paroxysmal atrial fibrillation. Continue amiodarone 100 mg once daily and metoprolol a history of GI bleed no past several years ago, not on any anticoagulation due to increased risk of fall and GI bleeding 11 History of myocardial infarction and coronary artery disease status post LAD stent in July 2017 and left circumflex in August 2017. Continue Toprol-XL 50 mg once daily, and Plavix 12 Diabetes mellitus type 2, insulin requiring. Continue insulin sliding scale. 13 GERD continue Protonix. 14 History of hyperlipidemia continue Zetia 10mg daily 15 Obstructive sleep apnea, on CPAP machine at night, along with O2 supplementation 16. Diabetic peripheral neuropathy continue gabapentin 300 mg twice daily. 17. Recurrent depression. Continue Cymbalta 60 mg orally once daily 18. Metabolic encephalopathy likely secondary to uremia and sepsis. Dialysis today 19 hyponatremia secondary to volume overload. Dialysis today Nephrology following the patient DVT prophylaxis. Heparin subcu every 12 GI prophylaxis continue Protonix.
[2020-09-06] MEDS: ERTAPENEM 0.5 GM in SODIUM CHLORIDE 0.9% 50 ML IVPB SCH (15:50)
[2020-09-06 16:42] LABS: Glucose,Whole Blood 122 mg/dL (75-99)
--- NOTE | 2020-09-06 18:34 | CONS ---
CONSULTATION DATE OF SERVICE: 09/06/2020 REASON FOR FOLLOWUP: Gram-negative bacteremia and UTI. HISTORY OF PRESENT ILLNESS: The patient is a 74-year-old female with a past medical history significant for end-stage renal disease, on hemodialysis thru a left arm AV fistula. The patient still makes some urine and apparently seemed to be dealing with urinary tract infection in the outpatient setting. The patient presented to [facility] yesterday morning for evaluation of generalized weakness that has been getting worse for the last few days. The patient denied any headache. No URI symptoms. No chest pain, shortness of breath or cough. No abdominal pain or any diarrhea. The patient was sleepy at the time of my evaluation. However, she did wake up finally and did answer some simple questions. No nausea, vomiting or no diarrhea. Still makes urine about once a day. When asked specifically, no significant dysuria or hematuria. On presentation to the hospital, the patient did have fever of 101.3 degrees Fahrenheit. The patient was tachycardic, slightly with supplemental oxygen. The patient did have white count of 18.8. Repeat is down to 12.8. The patient did have a positive UA and continued on Levaquin. Subsequent blood culture came back positive with Gram-negative bacilli with E. coli. Infectious disease was consulted for further management of antibiotic therapy. The patient did have a chest x-ray that was showing Pneumonia, atypical pulmonary edema. REVIEW OF SYSTEMS: Positive points have been mentioned in HPI. Complete review could not be obtained because of her mental status. PAST MEDICAL HISTORY: Significant for atrial fibrillation, coronary artery disease, heart failure, COPD, diabetes mellitus, end stage renal disease, hyperlipidemia, hypertension, history of recurrent UTI. PAST SURGICAL HISTORY: Back surgery, cholecystectomy, heart catheterization and hysterectomy. SOCIAL HISTORY: No history of smoking, drinking or drug use. FAMILY HISTORY: Father with history of brain aneurysm. Mother history of . Sister history of aortic stenosis, mitral valve disease. ALLERGIES: MULTIPLE MEDICATIONS, including CEPHALEXIN, , AND PROPOXYPHENE. MEDICATIONS: Currently include the patient is on Tylenol, Amiodarone, aspirin, vitamin D3, Plavix, Cymbalta, Zetia, Lasix, Neurontin, NovoLog, Levemir, Zaroxolyn, Toprol-XL, Midodrine, Protonix and Levaquin. PHYSICAL EXAMINATION: Her blood pressure is 120/59, pulse of 85, temperature is 97.5. She is 97% on 2 L nasal cannula. General description: The patient is an elderly female lying in bed in no distress. No tachypnea or axillary muscles of respiration use. HEENT examination is slight pallor. No scleral icterus. Oral mucosal membranes are dry. NECK: Trachea central. LUNGS: Unlabored breathing. Clear to auscultation anteriorly. HEART S1, S2. Regular rate and rhythm. ABDOMEN: Soft, no tenderness. No guarding. No rigidity. EXTREMITIES: No edema of the feet. Left arm AV fistula looks clean with no swelling and no redness. NEUROLOGIC: The patient remains to be lethargic though does respond to her name, answers simple questions, , mood and affect normal. LABS: Hemoglobin 9.1, white count 12.8, 18.8 with a BUN of 24, and creatinine 8.08. Liver enzymes are normal. Urine was positive. Procalcitonin 1.19. DIAGNOSTIC IMPRESSION/PLAN: 1. Patient admitted to the hospital with generalized weakness which is likely multifactorial and possible component of urinary tract infection with urine showing E coli and blood culture showing E coli. 2. Patient noted to have a problem with Cephalexin allergy that will limit the number of antibiotics safe to use. 3. The patient is on amiodarone and Cymbalta and . PLAN: 1. Discontinue Levaquin. 2. Start the patient on Invanz 5 mg IV piggyback daily. 3. We will follow on clinical condition and further adjust medication if needed. Thank you for this consultation, we will follow the patient along with you. MMODL / IJN: [id number] /
[2020-09-06 20:55] LABS: Glucose,Whole Blood 226 mg/dL (75-99)
[2020-09-07 07:16] LABS: Glucose,Whole Blood 149 mg/dL (75-99)
[2020-09-07] MEDS: MAGNESIUM OXIDE 400 MG TAB PO SCH (08:14)
[2020-09-07] MEDS: CHOLECALCIFEROL 25 MCG (1000 IU) TABLET PO SCH (08:14)
[2020-09-07] MEDS: CLOPIDOGREL 75 MG TAB PO SCH (08:14)
[2020-09-07] MEDS: PANTOPRAZOLE 40 MG TABLET PO SCH (08:14)
[2020-09-07] MEDS: DULoxetine HCL 60 MG CAPSULE.DR PO SCH (08:14)
[2020-09-07] MEDS: ASPIRIN 81 MG PO SCH (08:14)
[2020-09-07] MEDS: GABAPENTIN 300 MG CAP PO SCH (08:14)
[2020-09-07] MEDS: METOPROLOL SUCCINATE (ER) 50 MG TAB.ER.24H PO SCH (08:14)
[2020-09-07] MEDS: metOLazone 5 MG TAB PO SCH ×2 (08:14→20:17)
[2020-09-07] MEDS: FUROSEMIDE 80 MG TAB PO SCH (08:15)
[2020-09-07] MEDS: EZETIMIBE 10 MG TAB PO SCH (08:15)
[2020-09-07] MEDS: INSULIN ASPART (NovoLOG) 100 UNIT/ML VIAL SQ SCH ×4 (08:15→23:57)
[2020-09-07] MEDS: SEVELAMER 800 MG TAB PO SCH (08:15)
[2020-09-07] MEDS: AMIODARONE 100 MG TAB PO SCH (08:15)
[2020-09-07] MEDS: INSULIN DETEMIR (LEVEMIR) 100 UNIT/ML SYR SQ SCH ×2 (08:16→20:32)
[2020-09-07] MEDS ORDERED: LEVOFLOXACIN 500MG-D5W PMX 500 MG in DEXTROSE/WATER 1 100ML.BAG IVPB SCH (09:00)
[2020-09-07 11:32] LABS: Glucose,Whole Blood 240 mg/dL (75-99)
[2020-09-07 12:18] LABS: Basophils % (A) 0 %; Eosinophils % (A) 0 %; HCT 29.6 % (34.0-46.0); HGB 9.5 gm/dL (11.4-16.0); Hypochromasia Slight; Lymphocytes # (A) 0.6 k/uL (1.0-4.8); Lymphocytes % (A) 6 %; MCH 33.1 pg (25.0-35.0); MCHC 32.1 g/dL (31.0-37.0); MCV 103.1 fL (80.0-100.0); Macrocytosis Moderate; Mean Platelet Volume 8.7; Monocytes # (A) 0.9 k/uL (0-1.0); Monocytes % (A) 9 %; Neutrophils # (A) 8.5 k/uL (1.3-7.7); Neutrophils % (A) 82 %; Platelet Count 182 k/uL (150-450); RBC 2.87 m/uL (3.80-5.40); RDW 15.9 % (11.5-15.5); WBC 10.3 k/uL (3.8-10.6)
--- NOTE | 2020-09-07 12:23 | P.PN ---
Subjective Patient is seen in follow-up for end-stage renal disease. Resting in bed. Appetite is just fair. No chest pain or shortness of breath. Hemodynamically stable. Vital signs are stable. General: The patient appeared well nourished and normally developed. HEENT: Head exam is unremarkable. Neck is without jugular venous distension. LUNGS: Breath sounds decreased. HEART: Rate and Rhythm are regular. ABDOMEN: Soft, obese. EXTREMITITES: No edema. Objective - Vital Signs Vital signs: Vital Signs Temp 98.3 F 09/07/20 08:00 Pulse 92 09/07/20 08:00 Resp 18 09/07/20 08:00 BP 116/84 09/07/20 08:00 Pulse Ox 100 09/07/20 08:00 Intake & Output 09/06/20 09/07/20 09/07/20 18:59 06:59 18:59 Intake Total 2300 400 Output Total 0 Balance 2300 400 Intake: Oral 300 400 Hemodialysis 2000 Output: Urine 0 Other: Voiding Method Bedside Commode Bedside Commode Bedside Commode Diaper Diaper Diaper Incontinent Incontinent Incontinent # Voids 1 - Labs CBC & Chem 7: 09/07/20 11:53 09/06/20 11:12 Labs: Abnormal Lab Results - Last 24 Hours (Table) 09/06/20 09/06/20 09/07/20 Range/Units 16:41 20:53 07:15 RBC (3.80-5.40) m/uL Hgb (11.4-16.0) gm/dL Hct (34.0-46.0) % MCV (80.0-100.0) fL RDW (11.5-15.5) % Neutrophils # (1.3-7.7) k/uL Lymphocytes # (1.0-4.8) k/uL POC Glucose (mg/dL) 122 H 226 H 149 H (75-99) mg/dL 09/07/20 09/07/20 Range/Units 11:31 11:53 RBC 2.87 L (3.80-5.40) m/uL Hgb 9.5 L (11.4-16.0) gm/dL Hct 29.6 L (34.0-46.0) % MCV 103.1 H (80.0-100.0) fL RDW 15.9 H (11.5-15.5) % Neutrophils # 8.5 H (1.3-7.7) k/uL Lymphocytes # 0.6 L (1.0-4.8) k/uL POC Glucose (mg/dL) 240 H (75-99) mg/dL Microbiology - Last 24 Hours (Table) 09/05/20 10:23 Blood Culture Gram Stain - Preliminary Blood Blood Culture - Preliminary Escherichia coli 09/05/20 10:24 Blood Culture Gram Stain - Preliminary Blood Blood Culture - Preliminary Gram Neg Bacilli 09/05/20 10:23 Urine Culture - Preliminary Urine,Catheterized Gram Neg Bacilli Assessment and Plan Plan: Assessment: 1. End-stage renal disease maintained on hemodialysis on Monday schedule. 2. Gram-negative bacteremia. Urine culture positive for E. coli. On antibiotics per infectious disease. 3. Hyponatremia secondary to chronic kidney disease. Expect improvement postdialysis. 4. Diabetes mellitus. 5. 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 6. Anemia of chronic kidney disease. Plan: Hemodialysis tomorrow. Follow-up cultures. Antibiotics per infectious disease. Add Aranesp. Avoid IV setting in the setting of bacteremia.
[2020-09-07 12:29] LABS: ALT 14 U/L (4-34); AST 27 U/L (14-36); African American GFR (CKD) 6 (>60 ml/min/1.73 sqM); Albumin 3.4 g/dL (3.5-5.0); Alkaline Phosphatase 144 U/L (38-126); Anion Gap 14 mmol/L; Blood Urea Nitrogen 61 mg/dL (7-17); Calcium 8.9 mg/dL (8.4-10.2); Carbon Dioxide 27 mmol/L (22-30); Chloride 93 mmol/L (98-107); Globulin 3.3 g/dL; Glucose 222 mg/dL (74-99); Non-African American GFR(CKD) 5 (>60 ml/min/1.73 sqM); Potassium 5.3 mmol/L (3.5-5.1); Sodium 134 mmol/L (137-145); Total Bilirubin 0.7 mg/dL (0.2-1.3); Total Protein 6.7 g/dL (6.3-8.2)
[2020-09-07] MEDS ORDERED: EPINEPHrine 10 ML SYRINGE (0.1 MG/ML) ONE (12:38)
[2020-09-07] MEDS ORDERED: AMIODARONE 50 MG/ML 3 ML VIAL IV ONE (12:38)
[2020-09-07] MEDS ORDERED: SODIUM BICARB 8.4% 50 ML SYR (1 MEQ/ML) ONE (12:38)
[2020-09-07] MEDS ORDERED: DEXTROSE 5% IN WATER 50 ML BAG ONE (12:38)
[2020-09-07 12:44] LABS: Glucose,Whole Blood 201 mg/dL (75-99)
[2020-09-07] MEDS ORDERED: propofoL 100 ML IV ONE (13:04)
[2020-09-07 13:05] LABS: Glucose,Whole Blood 254 mg/dL (75-99)
--- NOTE | 2020-09-07 13:22 | P.EN ---
I responded to a CODE BLUE called on patient by nursing staff. Upon my arrival to the room, high-quality chest compression was ongoing. Nursing staff did not recognize the initial rhythm. Apparently patient was sitting up eating a hamburger when she started choking and her visitor who is a nurse practitioner at our hospital as her if she was feeling okay and subsequently patient went unresponsive and lost the pulse. CPR was started immediately and patient had return of spontaneous circulation after 1 round of CPR. She was mostly obtunded after ROSC and was having episodes of apnea. I asked the MEDICAL IMAGING TECHNOLOGIST to intubate the patient for airway protection. 12-lead EKG showed sinus tachycardia with no acute ischemic changes. A stat chest x-ray and ABG will be ordered. I did review her electronic chart and patient has a complex past medical history significant for end-stage renal disease on hemodialysis, chronic atrial fibrillation, coronary artery disease. Her electrolytes from this morning were within acceptable range. A new set of electrolytes and magnesium was ordered. Patient will be transferred to the intensive care unit for further management. I discussed the patient's condition with the attending physician at the bedside. I also updated her daughter that was standing outside the room in the hallway. Patient will be transferred to the ICU in critical condition.
[2020-09-07] MEDS ORDERED: MAGNESIUM SULFATE-D5W PMX 1 GM in DEXTROSE/WATER 1 100ML.BAG IVPB ONE (13:30)
[2020-09-07] MEDS ORDERED: CALCIUM GLUCONATE 1 GM in SODIUM CHLORIDE 0.9% 100 ML IVPB ONE (13:30)
[2020-09-07] MEDS ORDERED: CHLORHEXIDINE GLUCONATE 15 ML CUP MUCOUS MEM ONE (13:46)
--- NOTE | 2020-09-07 13:53 | XR ---
EXAMINATION TYPE: XR chest 1V DATE OF EXAM: 09/07/2020 COMPARISON: 09/06/2020 HISTORY: ET tube placement TECHNIQUE: Single frontal view of the chest is obtained. FINDINGS: ET tube is approximately 1.4 cm above the nicolás. NG tube extends to the left upper quadra nt likely within the stomach. Postsurgical changes are noted involving mediastinal. Metallic density along the left upper heart border near the aorta is stable. Diffuse interstitial pattern with bilater al infiltrate and small effusion. Postoperative change involving the vertebral column. No pneumothora x. IMPRESSION: 1. ET and NG tube appear in good position. 2. Diffuse interstitial and alveolar infiltrates correlate for CHF versus interstitial pneumonitis.
[2020-09-07 13:56] LABS: ABG Base Excess 1.3 mmol/L; ABG HCO3 29 mmol/L (21-25); ABG Oxygen Saturation 98.8 % (94-97); ABG PH 7.22 (7.35-7.45); ABG PO2 209 mmHg (83-108); ABG TCO2 31 mmol/L (19-24); Allen Test Performed? Yes
[2020-09-07 13:58] LABS: ABG PCO2 72 mmHg (35-45)
--- NOTE | 2020-09-07 14:46 | P.PN ---
Subjective Progress Note Date: 09/07/20 This is a 74-year-old female patient of Dr. Farias with past medical history of proximal atrial fibrillation, coronary artery disease status post VT, denies any history of COPD or asthma. Uses CPAP at home frequently. chronic diastolic heart failure, diabetes, hyperlipidemia, hypertension, hypertensive car diovascular disease, end-stage renal disease on hemodialysis Monday and Monday, aortic stenosis status post TAVR in 2017, with h/o multiple urinary tract infection treated by Dr Borrego who also did cystoscopy on 05/22 done for recurrent UIT followed by bactrim for klebsiella and ecoli uti on 06/07/2020. Patient's urinalysis multidrug-resistant tenderness difficult to treat as outpatient. Dr. Borrego was planning to send the patient can't afford if no improvement seen. She started feeling unwell on Monday and had a full prescription of doxycycline and home which she started taking. Patient took doxycycline for 2 days with no improvement in sensation and decided to come to ER. Patient does document fever and chills at home. She denies any abdominal pain, diarrhea or constipation. Vitals evaluated in the assisted temp of 101 pulse 84 respiratory rate 18 blood pressure 138/88. Labs refuses this today WBC of 18.8 hemoglobin 10.5 MCV 102 platelet 217, INR 1, sodium 1:30, potassium 5, chloride 86, BUN 59 creatinine 6.7 glucose 219 lactic acid 2.1 and liver enzymes are normal and alkaline phosphatase 134. Urinalysis positive for UTI with positive RBC 175 WBC 182 positive leukocyte esterase and negative nitrites. Chest x-ray suggestive of the stated infiltrate concern for atelectasis versus pneumonia. Repeat chest x-ray will be obtained tomorrow. Continue patient on cefepime 2 g every 8 hours. Patient has sepsis secondary to UTI. IV fluids can cannot be continued as patient is on dialysis and is due for her dialysis. 09/06 patient evaluated at bedside appears much confused than yesterday. His short of breath on evaluation. Patient did not get her dialysis yesterday. She is not answering to questions and repeating the phrase" everything is going oppo site"patient gets confused easily and is not able to answer suspension appropriate he is oriented 2. Nephrology is evaluated the patient and recommend dialysis today. Vitals checked this morning patient had a temp of 100.5 pulse rate 112 blood pressure 170/74 requiring 1-2 L of oxygen saturating at 94% on assessment patient's blood work today WBC has improved from 18-12.8 hemoglobin is 9.9, platelets [birth year]/1989 sodium has worsened from yesterday dropped to 127, potassium 5.3, chloride 84 bun is 74 creatinine 8.8, glucose 158 alkaline phosphatase is 133. Blood cultures are positive for gram-negative bacilli. Infectious disease consulted. Levofloxacin every 48 hours 500 mg IV Patient evaluated at bedside around 11 in the morning patient was doing well was lying in bed appears a little confused but was able to communicate without any difficulty. Discussed with patient the need for possible rehab which patient was reluctant about. At around 12:38 PM, CODE BLUE was called and the patient. He apparently patient was sleeping Herberger and found to choke on food. Patient lost her pulse and became unresponsive. The nurse bedside initiated the CODE BLUE. Patient received 1 dose of epinephrine and bicarb. Pulse was obtained at 12:40 PM. Patient got intubated at 1243. EKG was obtained that suggested wide-complex tachycardia. Vitals reviewed had a temp of 98, pulse 88 respiratory rate 18 was saturating at 98% on 3 L and currently on 100% FiO2. Blood gas was obtained. PH of 7.2 CO2 was 72 pO2 to 209. CMP this morning was pending, stat labs were ordered in the morning which resulted close to the CODE BLUE suggested sodium of 134 potassium 5.3 chloride 93 BUN 61 creatinine 7.44. Patient received dialysis yesterday. Patient to be moved to the ICU for further management. Pulmonary consulted. 1 g of calcium gluconate given. 1 g of mag sulfate given. Labs ordered currently pending. Review of systems could not be obtained due to mental status Objective - Vital Signs Vital signs: Vital Signs Temp 98.3 F 09/07/20 08:00 Pulse 92 09/07/20 08:00 Resp 18 09/07/20 08:00 BP 116/84 09/07/20 08:00 Pulse Ox 100 09/07/20 08:00 Intake & Output 09/06/20 09/07/20 09/07/20 18:59 06:59 18:59 Intake Total 2300 400 Output Total 0 Balance 2300 400 Intake: Oral 300 400 Hemodialysis 2000 Output: Urine 0 Other: Voiding Method Bedside Commode Bedside Commode Bedside Commode Diaper Diaper Diaper Incontinent Incontinent Incontinent # Voids 1 - Exam - Constitutional General appearance: Intubated - EENT Eyes: anicteric sclerae, PERRLA, normal appearance ENT: hearing grossly normal - Neck Neck: no lymphadenopathy, normal ROM, no other, no rigidity, no stridor, no thyromegaly - Respiratory Respiratory: bilateral: Decreased air entry, back also reveals - Cardiovascular Rhythm: regular Heart sounds: normal: S1, S2 Abnormal Heart Sounds: 3/6 systolic murmur, no diastolic murmur, no rub, no S3 Gallop, no S4 Gallop, no click, no other - Gastrointestinal General gastrointestinal: normal bowel sounds, soft nontender - Integumentary Integumentary: no rash - Neurologic Neurologic: Confused moves all extremities equally - Musculoskeletal Musculoskeletal: gait not assessed, strength equal bilaterally - Psychiatric Psychiatric: Drowsy, currently sedated - Labs CBC & Chem 7: 09/07/20 11:53 09/07/20 11:53 Labs: Abnormal Lab Results - Last 24 Hours (Table) 09/06/20 09/06/20 09/07/20 Range/Units 16:41 20:53 07:15 RBC (3.80-5.40) m/uL Hgb (11.4-16.0) gm/dL Hct (34.0-46.0) % MCV (80.0-100.0) fL RDW (11.5-15.5) % Neutrophils # (1.3-7.7) k/uL Lymphocytes # (1.0-4.8) k/uL Sodium (137-145) mmol/L Potassium (3.5-5.1) mmol/L Chloride (98-107) mmol/L BUN (7-17) mg/dL Creatinine (0.52-1.04) mg/dL Glucose (74-99) mg/dL POC Glucose (mg/dL) 122 H 226 H 149 H (75-99) mg/dL Alkaline Phosphatase (38-126) U/L Albumin (3.5-5.0) g/dL 09/07/20 09/07/20 09/07/20 Range/Units 11:31 11:53 11:53 RBC 2.87 L (3.80-5.40) m/uL Hgb 9.5 L (11.4-16.0) gm/dL Hct 29.6 L (34.0-46.0) % MCV 103.1 H (80.0-100.0) fL RDW 15.9 H (11.5-15.5) % Neutrophils # 8.5 H (1.3-7.7) k/uL Lymphocytes # 0.6 L (1.0-4.8) k/uL Sodium 134 L (137-145) mmol/L Potassium 5.3 H (3.5-5.1) mmol/L Chloride 93 L (98-107) mmol/L BUN 61 H (7-17) mg/dL Creatinine 7.44 H* (0.52-1.04) mg/dL Glucose 222 H (74-99) mg/dL POC Glucose (mg/dL) 240 H (75-99) mg/dL Alkaline Phosphatase 144 H (38-126) U/L Albumin 3.4 L (3.5-5.0) g/dL 09/07/20 09/07/20 Range/Units 12:43 13:04 RBC (3.80-5.40) m/uL Hgb (11.4-16.0) gm/dL Hct (34.0-46.0) % MCV (80.0-100.0) fL RDW (11.5-15.5) % Neutrophils # (1.3-7.7) k/uL Lymphocytes # (1.0-4.8) k/uL Sodium (137-145) mmol/L Potassium (3.5-5.1) mmol/L Chloride (98-107) mmol/L BUN (7-17) mg/dL Creatinine (0.52-1.04) mg/dL Glucose (74-99) mg/dL POC Glucose (mg/dL) 201 H 254 H (75-99) mg/dL Alkaline Phosphatase (38-126) U/L Albumin (3.5-5.0) g/dL Microbiology - Last 24 Hours (Table) 09/06/20 11:12 Blood Culture - Preliminary Blood No Growth after 24 hours 09/06/20 11:12 Blood Culture - Preliminary Blood No Growth after 24 hours 09/05/20 10:23 Blood Culture Gram Stain - Preliminary Blood Blood Culture - Preliminary Escherichia coli 09/05/20 10:24 Blood Culture Gram Stain - Preliminary Blood Blood Culture - Preliminary Gram Neg Bacilli 09/05/20 10:23 Urine Culture - Preliminary Urine,Catheterized Gram Neg Bacilli Assessment and Plan Plan: 1. Sepsis secondary to UTI. Gram-negative bacteremia Continue levofloxacin 500 every 48 hours. Infectious disease consulted. IV fluids not Initiated due to being on dialysis. Did not receive dialysis yesterday Patient is due for her dialysis today. Urine culture is pending. Blood culture obtained 2. Bilateral pleural effusion, small posterior infiltrate consistent with atelectasis.. Unlikely to have pneumonia repeat chest x-ray suggests mild volume overload 3 unresponsive with loss of pulse CODE BLUE called on 09/07. Secondary to choking on her food. Status was epinephrine and bicarb Initial rhythm on record placed. EKG with wide complex tachycardia. Status post calcium gluconate and 1 g of magnesium sulfate. 4. Acute hypoxic hypercapnic respiratory failure intubated during the CODE BLUE. Likely aspiration Ordering Box Operator consulted. ABG concerning for hypercapnic respiratory failure. Ventilatory setting per pulmonary. Chest x-ray stat ordered suggestive of CHF exacerbation. Lasix is switched to IV 80 twice a day. COVID 19 test ordered 5. White complex tachycardia baseline EKG with sinus rhythm with bifascicular lock. Avoid QT prolonging medication. Cardiology consulted. Hyperkalemia noted magnesium level not available. Status post one dose of calcium gluconate. 1 g magnesium. Repeat labs ordered. 6. Status post Recurrent UTI, status post cystoscopy, by Dr. Borrego, previous culture positive for E. coli and klebsiella during last cultureson chronic prophylactic antibiotics including nitrofurantoin and Mandelamine 4 Oliguria secondary to end-stage kidney disease, still making 400 mL per day, consult with nephrology, on hemodialysis Monday and Monday . roy catheter placed 5 End-stage renal disease on hemodialysis Monday and Monday, 6 acute on Chronic diastolic heart failure. Continue hemodialysis. Continue home dose of Lasix at 80 mg twice daily as well as metoprolol 50 mg Monday, and metolazone 5 mg twice a day. Lasix switched to IV twice a day 7 History of aortic stenosis status post TAVR. 8 Hypertension cardiovascular disease. Continue amiodarone 100 mg daily and metoprolol. 10 Paroxysmal atrial fibrillation. Continue amiodarone 100 mg once daily and metoprolol a history of GI bleed no past several years ago, not on any anticoagulation due to increased risk of fall and GI bleeding 11 History of myocardial infarction and coronary artery disease status post LAD stent in July 2017 and left circumflex in August 2017. Continue Toprol-XL 50 mg once daily, and Plavix 12 Diabetes mellitus type 2, insulin requiring. Continue insulin sliding scale. 13 GERD continue Protonix. 14 History of hyperlipidemia continue Zetia 10mg daily 15 Obstructive sleep apnea, on CPAP machine at night, along with O2 supplementation 16. Diabetic peripheral neuropathy continue gabapentin 300 mg twice daily. 17. Recurrent depression. Continue Cymbalta 60 mg orally once daily 18. Metabolic encephalopathy likely secondary to uremia and sepsis. Dialysis today 19 hyponatremia secondary to volume overload. Dialysis on 09/06 Nephrology following the patient DVT prophylaxis. Heparin subcu every 12 GI prophylaxis continue Protonix. Prognosis poor
[2020-09-07 15:46] LABS: Anisocytosis Slight; Basophils % (A) 0 %; Eosinophils % (A) 0 %; HCT 24.3 % (34.0-46.0); Hypochromasia Moderate; Lymphocytes # (A) 0.4 k/uL (1.0-4.8); Lymphocytes % (A) 5 %; MCH 32.7 pg (25.0-35.0); MCV 105.3 fL (80.0-100.0); Macrocytosis Moderate; Mean Platelet Volume 8.8; Monocytes # (A) 0.7 k/uL (0-1.0); Monocytes % (A) 7 %; Neutrophils # (A) 8.5 k/uL (1.3-7.7); Neutrophils % (A) 86 %; Platelet Count 157 k/uL (150-450); RDW 16.3 % (11.5-15.5); WBC 9.9 k/uL (3.8-10.6)
--- NOTE | 2020-09-07 15:47 | XR ---
EXAMINATION TYPE: XR chest 1V portable DATE OF EXAM: 09/07/2020 COMPARISON: Chest x-ray 09/07/2020 at earlier time HISTORY: Endotracheal tube placement TECHNIQUE: Single frontal view of the chest is obtained. FINDINGS: There is been interval repositioning of endotracheal tube which is approximately 4.8 cm fr om the level of the nicolás. Patient is rotated. Orogastric tube is present coursing towards the left upper quadrant. Postprocedural changes are again seen. No evident pneumothorax or sizable effusion. T here may be some improvement in aeration within the lungs. Cardiac mediastinal silhouette likely stab le accounting for differences in technique. IMPRESSION: Interval endotracheal tube reposition
[2020-09-07 15:52] LABS: Albumin 2.4 g/dL (3.5-5.0); Calcium 8.2 mg/dL (8.4-10.2); Potassium 4.6 mmol/L (3.5-5.1); Total Bilirubin 0.5 mg/dL (0.2-1.3); Total Protein 4.8 g/dL (6.3-8.2)
[2020-09-07] MEDS: FUROSEMIDE 10 MG/ML 10 ML VIAL IV SCH ×2 (15:54→20:17)
[2020-09-07 16:03] LABS: HGB 7.5 gm/dL (11.4-16.0)
[2020-09-07] MEDS: ERTAPENEM 0.5 GM in SODIUM CHLORIDE 0.9% 50 ML IVPB SCH (16:49)
[2020-09-07] MEDS: NOREPINEPHRINE 4 MG in SODIUM CHLORIDE 0.9% 250 ML IV SCH (16:51)
--- NOTE | 2020-09-07 17:04 | P.CNPUL ---
History of Present Illness Consult date: 09/07/20 Requesting physician: Nandini Venegas Chief complaint: Cardiac arrest History of present illness: This is a 74-year-old female primarily a patient of Dr. Farias, known history of multiple medical problems including chronic atrial fibrillation, mostly paroxysmal in nature, coronary artery disease, previous PA, history of obs tructive sleep apnea on CPAP at home, history of end-stage renal disease on hemodialysis history of aortic stenosis and previous T aVR in 2018. History of multiple urinary tract infections. Patient was admitted on 09/05/2020, her admitting diagnosis was sepsis secondary to urinary tract infection and patient was seen by infectious disease on consultation. Has been on proper antibiotics. Patient has been on Invanz, and she was being followed by many consultants on the case. Initially, the patient was on cefepime but this was later changed to Invanz. And she had multiple positive blood cultures for E. coli. At any rate patient was on the medical floor today, and around 1: 19, patient had a CODE BLUE. CPR was started, apparently patient was feeding at the time she had CODE BLUE. Questionable choking on her hamburger. Patient had no pulse, and went unresponsive. Spontaneous circulation was noted after 1 round of CPR and she was having episodes of apnea. Patient was intubated by CARGO TRIMMER, 12-lead EKG at the time showed sinus tachycardia without any ischemic changes. Patient was adria ntually placed on mechanical ventilation, and she was transferred to the ICU. I saw the patient shortly after she arrived to the ICU, and reviewed her ABG also reviewed her chest x-ray. Her chest x-ray showed endotracheal tube about 4.8 cm from the level of the nicolás. There was no evidence of infiltrate, minimal atelectasis is noted. ABG showed a pO2 of 219 pCO2 of 72 pH of 7.22, hence her ventilator settings were adjusted by increasing her assist control rate of mechanical ventilation, and drop down her FiO2 to 50%. Repeat ABG is pending. Labs were basically unremarkable except for BUN of 51 creatinine of 5.58, remind you patient is known to have history of chronic renal failure and on hemodialysis. Lactic acid was noted to be at 2.2 and her watson virus PCR was negative. Patient initial complaint on admission was mostly symptoms of weakness with symptoms of urinary tract infection and her initial blood cultures and urine cultures were positive for E. coli. Looking at the chart, patient received 1 dose of epinephrine and 1 amp of bicarb patient was actually intubated at 1243, EKG showed wide complex tachycardia after return of spontaneous circulation. Last dialysis on this patient was yesterday. Review of Systems ROS unobtainable: due to endotracheal tube Past Medical History Past Medical History: Atrial Fibrillation, Coronary Artery Disease (CAD), Heart Failure, Diabetes Mellitus, Dialysis, GERD/Reflux, GI Bleed, Hyperlipidemia, Hypertension, Myocardial Infarction (PA), Pneumonia, Renal Disease, Sleep Apnea/CPAP/BIPAP, Vascular Disorder Additional Past Medical History / Comment(s): HEMODIALYSIS- MONDAY,MONDAY,AND MONDAY . USES WHEELCHAIR-TRANSFERS ONLY -CAN TAKE A COUPLE OF STEPS, hx. GI bleed >year ago, SOB w/exertion, uses oxygen prn @2l, see Dr Combs [facility]. TAVR Last Myocardial Infarction Date:: 2015 History of Any Multi-Drug Resistant Organisms: MRSA Date of last positivie culture/infection: 02/09/18 MDRO Source:: LT THIRD TOE Past Surgical History: Back Surgery, Cholecystectomy, Heart Catheterization, He art Catheterization With Stent, Hysterectomy, Orthopedic Surgery Additional Past Surgical History / Comment(s): PCI with stents, several back surgeries-lumbar, bilateral carpal tunnel releases, bilateral cataract removals, port then fistula for hemodialysis. PTBA to left leg 03-02-18. TAVR in [address] Rock at [facility] Past Anesthesia/Blood Transfusion Reactions: Previous Problems w/ Anesthesia Additional Past Anesthesia/Blood Transfusion Reaction / Comment(s): Confusion that resolved. Date of Last Stent Placement:: 10/06/17 Past Psychological History: No Psychological Hx Reported Smoking Status: Never smoker Past Alcohol Use History: None Reported Past Drug Use History: None Reported - Past Family History Father Additional Family Medical History / Comment(s): Brain aneurysm ; age 72 Sister(s) Family Medical History: Hypertension Additional Family Medical History / Comment(s): Aortic stenosis; mitral valve disease Mother Family Medical History: No Reported History, AFIB, CVA/TIA, Hypertension Additional Family Medical History / Comment(s): mother age 83 Daughter(s) Family Medical History: Asthma Son(s) Family Medical History: Asthma Medications and Allergies Home Medications Medication Instructions Recorded Confirmed Type DULoxetine HCL [Cymbalta] 60 mg PO DAILY 08/04/14 09/05/20 History Amiodarone HCl [Pacerone] 100 mg PO DAILY 11/22/15 09/05/20 History Ezetimibe [Zetia] 10 mg PO DAILY 11/22/15 09/05/20 History Gabapentin [Neurontin] 300 mg PO BID #60 capsule 11/27/15 09/05/20 Rx Omeprazole 20 mg PO DAILY 12/25/16 09/05/20 History Magnesium Oxide [Mag-Ox] 250 mg PO DAILY 05/05/17 09/05/20 History Clopidogrel [Plavix] 75 mg PO DAILY #30 tab 08/21/17 09/05/20 Rx Aspirin [Adult Low Dose Aspirin EC] 81 mg PO DAILY 03/02/18 09/05/20 History metOLazone [Zaroxolyn] 5 mg PO BID 02/11/19 09/05/20 History Cranberry 4200mg 4,200 mg PO BID 01/12/20 09/05/20 History Furosemide [Lasix] 80 mg PO BID 01/12/20 09/05/20 History Insulin Aspart [NovoLOG Flexpen] 10 - 12 units SQ AC-TID 01/12/20 09/05/20 History Insulin Glargine,Hum.rec.anlog 20 units SQ BID 01/12/20 09/05/20 History [Lantus Solostar] Metoprolol Succinate (ER) [Toprol 50 mg PO DAILY 01/12/20 09/05/20 History XL] Sevelamer [Renvela] 800 mg PO AC-BRKFST 01/12/20 09/05/20 History Ferrous Sulfate [Iron (65 MG 325 mg PO DAILY 06/09/20 09/05/20 History Elemental)] Vitamin C/Biotin [Hair, Skin and 1 tab PO BID 06/09/20 09/05/20 History Nails] Methenamine Hippurate 1 gm PO BID #60 tablet 06/12/20 09/05/20 Rx Cholecalciferol [Vitamin D3 (25 50 mcg PO DAILY 09/05/20 09/05/20 History Mcg = 1000 Iu)] Midodrine HCl [ProAmatine] 10 mg PO DIRECTED PRN 09/05/20 09/05/20 History Allergies Allergy/AdvReac Type Severity Reaction Status Date / Time KUSHAL Inhibitors Allergy Swelling Verified 09/05/20 12:05 ARB-Angiotensin Receptor Allergy Swelling Verified 09/05/20 12:05 Antagonist cephalexin monohydrate Allergy Rash/Hives, Verified 09/05/20 12:05 [From Keflex] MOUTH SWELLING propoxyphene HCl AdvReac Hallucinati Verified 09/05/20 12:05 [From Darvon] ons Ofggwqi-Xsq-Cei Reductase AdvReac Myalgia Verified 09/05/20 12:05 Inhibitor Physical Exam Vitals: Vital Signs Temp Pulse Pulse Resp BP BP Pulse Ox 09/07/20 15:00 83 18 09/07/20 14:45 87 18 66/44 09/07/20 14:30 90 12 70/39 09/07/20 14:15 87 12 76/43 09/07/20 14:00 98.2 F 98 12 126/60 97 09/07/20 13:45 105 H 12 128/66 09/07/20 13:30 105 H 12 127/65 100 09/07/20 13:15 101/60 99 09/07/20 13:05 110 H 10 L 09/07/20 08:00 98.3 F 92 18 116/84 100 09/07/20 02:47 99.3 F 90 15 161/65 96 09/06/20 20:00 99 16 09/06/20 19:22 99.0 F 99 16 148/55 98 Intake and Output 09/07/20 09/07/20 09/07/20 06:59 14:59 22:59 Intake Total 400 100 Output Total 0 Balance 400 100 Intake: Intake, IV Titration 100 Amount Calcium Gluconate 1 gm In 100 Sodium Chloride 0.9% 100 ml @ 100 mls/hr IVPB ONCE ONE Rx#:[id number] Oral 400 Output: Urine 0 Other: Voiding Method Bedside Commode Diaper Incontinent # Voids 1 Physical Exam: Revealed 74-year-old female intubated and mechanically ventilated, sedated, on propofol. Head: Atraumatic, normocephalic. HEENT:[Neck is supple.] [No neck masses.] [No thyromegaly.] [No JVD.] PERRLA, EOMI, nonicteric. No neck masses, no JVD, no stridor. Chest: [Her metrical chest expansion, minimal crackles at the bases. Cardiac Exam: [Normal S1 and S2, no S3 gallop, 3/6 systolic murmur thought the precordium. Abdomen: [Soft, nontender, no megaly, no rebound, no guarding, normal bowel sounds.] Extremities: [No clubbing, no edema, no cyanosis.] AV fistula noted in the left arm. Midline is noted in the right arm. Neurological Exam: Cannot be assessed, patient is sedated, and mechanically vent ilated Psychiatric: Could not assess. .] Results - Laboratory Findings CBC and BMP: 09/07/20 14:53 09/07/20 14:53 ABG ABG pH 7.22 (7.35-7.45) L 09/07/20 13:54 ABG pCO2 72 mmHg (35-45) H* 09/07/20 13:54 ABG pO2 209 mmHg (83-108) H 09/07/20 13:54 ABG O2 Saturation 98.8 % (94-97) H 09/07/20 13:54 PT/INR, D-dimer PT 10.5 sec (9.0-12.0) 09/05/20 10:23 INR 1.0 (<1.2) 09/05/20 10:23 Abnormal lab findings: Abnormal Labs 09/05/20 09/05/20 09/05/20 10:23 10:23 10:23 WBC 18.8 H RBC 3.27 L Hgb 10.5 L Hct 33.4 L MCV 102.1 H RDW 16.4 H Neutrophils # 16.8 H Lymphocytes # 0.9 L ABG pH ABG pCO2 ABG pO2 ABG HCO3 ABG Total CO2 ABG O2 Saturation Sodium 130 L Potassium Chloride 86 L Carbon Dioxide BUN 59 H Creatinine 6.70 H Glucose 219 H POC Glucose (mg/dL) Plasma Lactic Acid Satinder Calcium Alkaline Phosphatase 134 H Total Protein Albumin Procalcitonin Urine Appearance Turbid H Urine Protein 3+ H Urine Blood Moderate H Ur Leukocyte Esterase Large H Urine RBC 175 H Urine WBC >182 H Urine WBC Clumps Many H Urine Bacteria Many H 09/05/20 09/05/20 09/05/20 10:23 10:23 17:30 WBC RBC Hgb Hct MCV RDW Neutrophils # Lymphocytes # ABG pH ABG pCO2 ABG pO2 ABG HCO3 ABG Total CO2 ABG O2 Saturation Sodium Potassium Chloride Carbon Dioxide BUN Creatinine Glucose POC Glucose (mg/dL) 198 H Plasma Lactic Acid Satinder 2.1 H* Calcium Alkaline Phosphatase Total Protein Albumin Procalcitonin 1.19 H Urine Appearance Urine Protein Urine Blood Ur Leukocyte Esterase Urine RBC Urine WBC Urine WBC Clumps Urine Bacteria 09/05/20 09/06/20 09/06/20 20:06 07:18 11:12 WBC 12.8 H RBC 3.01 L Hgb 9.9 L Hct 30.1 L MCV RDW 15.9 H Neutrophils # 11.0 H Lymphocytes # 0.7 L ABG pH ABG pCO2 ABG pO2 ABG HCO3 ABG Total CO2 ABG O2 Saturation Sodium Potassium Chloride Carbon Dioxide BUN Creatinine Glucose POC Glucose (mg/dL) 202 H 164 H Plasma Lactic Acid Satinder Calcium Alkaline Phosphatase Total Protein Albumin Procalcitonin Urine Appearance Urine Protein Urine Blood Ur Leukocyte Esterase Urine RBC Urine WBC Urine WBC Clumps Urine Bacteria 09/06/20 09/06/20 09/06/20 11:12 11:28 16:41 WBC RBC Hgb Hct MCV RDW Neutrophils # Lymphocytes # ABG pH ABG pCO2 ABG pO2 ABG HCO3 ABG Total CO2 ABG O2 Saturation Sodium 127 L Potassium 5.3 H Chloride 84 L Carbon Dioxide BUN 74 H Creatinine 8.08 H* Glucose 158 H POC Glucose (mg/dL) 173 H 122 H Plasma Lactic Acid Satinder Calcium Alkaline Phosphatase 133 H Total Protein Albumin Procalcitonin Urine Appearance Urine Protein Urine Blood Ur Leukocyte Esterase Urine RBC Urine WBC Urine WBC Clumps Urine Bacteria 09/06/20 09/07/20 09/07/20 20:53 07:15 11:31 WBC RBC Hgb Hct MCV RDW Neutrophils # Lymphocytes # ABG pH ABG pCO2 ABG pO2 ABG HCO3 ABG Total CO2 ABG O2 Saturation Sodium Potassium Chloride Carbon Dioxide BUN Creatinine Glucose POC Glucose (mg/dL) 226 H 149 H 240 H Plasma Lactic Acid Satinder Calcium Alkaline Phosphatase Total Protein Albumin Procalcitonin Urine Appearance Urine Protein Urine Blood Ur Leukocyte Esterase Urine RBC Urine WBC Urine WBC Clumps Urine Bacteria 09/07/20 09/07/20 09/07/20 11:53 11:53 12:43 WBC RBC 2.87 L Hgb 9.5 L Hct 29.6 L MCV 103.1 H RDW 15.9 H Neutrophils # 8.5 H Lymphocytes # 0.6 L ABG pH ABG pCO2 ABG pO2 ABG HCO3 ABG Total CO2 ABG O2 Saturation Sodium 134 L Potassium 5.3 H Chloride 93 L Carbon Dioxide BUN 61 H Creatinine 7.44 H* Glucose 222 H POC Glucose (mg/dL) 201 H Plasma Lactic Acid Satinder Calcium Alkaline Phosphatase 144 H Total Protein Albumin 3.4 L Procalcitonin Urine Appearance Urine Protein Urine Blood Ur Leukocyte Esterase Urine RBC Urine WBC Urine WBC Clumps Urine Bacteria 09/07/20 09/07/20 09/07/20 13:04 13:54 14:53 WBC RBC 2.30 L Hgb 7.5 L D Hct 24.3 L MCV 105.3 H RDW 16.3 H Neutrophils # 8.5 H Lymphocytes # 0.4 L ABG pH 7.22 L ABG pCO2 72 H* ABG pO2 209 H ABG HCO3 29 H ABG Total CO2 31 H ABG O2 Saturation 98.8 H Sodium Potassium Chloride Carbon Dioxide BUN Creatinine Glucose POC Glucose (mg/dL) 254 H Plasma Lactic Acid Satinder Calcium Alkaline Phosphatase Total Protein Albumin Procalcitonin Urine Appearance Urine Protein Urine Blood Ur Leukocyte Esterase Urine RBC Urine WBC Urine WBC Clumps Urine Bacteria 09/07/20 09/07/20 14:53 14:53 WBC RBC Hgb Hct MCV RDW Neutrophils # Lymphocytes # ABG pH ABG pCO2 ABG pO2 ABG HCO3 ABG Total CO2 ABG O2 Saturation Sodium 135 L Potassium Chloride Carbon Dioxide 21 L BUN 51 H Creatinine 5.58 H Glucose 187 H POC Glucose (mg/dL) Plasma Lactic Acid Satinder 2.2 H* Calcium 8.2 L Alkaline Phosphatase Total Protein 4.8 L Albumin 2.4 L Procalcitonin Urine Appearance Urine Protein Urine Blood Ur Leukocyte Esterase Urine RBC Urine WBC Urine WBC Clumps Urine Bacteria - Diagnostic Findings Chest x-ray: image reviewed Assessment and Plan Assessment: Acute hypoxic, and acute hypercapnic respiratory failure secondary to cardiac arrest secondary to sepsis and possible septic shock. Secondary to E. coli urinary tract infection and positive bacteremia. Bibasilar atelectasis, no clear-cut evidence of pneumonia. Chronic kidney disease, on hemodialysis. Patient has end-stage renal disease. Acute on chronic diastolic congestive heart failure History of aortic stenosis and previous TAPVR. History of hypertension History of paroxysmal atrial fibrillation History of coronary artery disease and previous stent placement in LAD. As well as left circumflex Type 2 diabetes. History of GERD Dyslipidemia Obstructive sleep apnea syndrome on CPAP at night History of diabetes and diabetic neuropathy History of depression Hypovolemic hyponatremia Recommendation: Continue ventilatory support. Her ventilator settings will be adjusted accord ing to the next ABG her initial adjustment was made after the initial ABG. Cardiology infectious disease nephrology to see the patient on consultation. Continue antibiotics as ordered by infectious disease. Repeat blood cultures Continue GI and DVT prophylaxis. Continue hemodynamic support as needed. Continue sedation for now Neutrophils support/enteral feeding to be started. Resume home meds. Including her cardiac meds. We'll continue to follow. Prognosis extremely poor and guarded. Time with Patient: Greater than 30
[2020-09-07] MEDS: DARBEPOETIN ALFA 40 MCG/0.4 ML SYRINGE SQ SCH (17:08)
[2020-09-07] MEDS ORDERED: INSULIN ASPART (NovoLOG) 100 UNIT/ML VIAL SQ SCH (17:30)
[2020-09-07 18:25] LABS: Glucose,Whole Blood 170 mg/dL (75-99)
[2020-09-07] MEDS: CHLORHEXIDINE GLUCONATE 15 ML CUP MUCOUS MEM SCH (20:17)
[2020-09-07 20:32] LABS: Glucose,Whole Blood 177 mg/dL (75-99)
--- NOTE | 2020-09-07 21:52 | OP ---
OPERATIVE REPORT OPERATIVE REPORT: Placement of a right radial arterial line. PREOPERATIVE DIAGNOSIS: Acute hypoxic respiratory failure. POSTOPERATIVE DIAGNOSIS: Acute hypoxic respiratory failure. ANESTHESIA USED: None deployed. PROCEDURE DESCRIPTION: The right wrist was prepared in a sterile fashion and drapes were applied. The right renal artery was palpated, cannulated, and a guidewire was placed. A Cook's catheter was inserted over the guidewire, and the guidewire was removed. Good blood flow, good waveform noted. No evidence of any immediate complications. The line was secured using 3.0 silk sutures. MMODL / IJN: [id number] /
[2020-09-07 23:56] LABS: Glucose,Whole Blood 147 mg/dL (75-99)
[2020-09-08 05:11] LABS: Glucose,Whole Blood 128 mg/dL (75-99)
[2020-09-08 05:20] LABS: ABG HCO3 26 mmol/L (21-25); ABG Oxygen Saturation 97.4 % (94-97); ABG PCO2 35 mmHg (35-45); ABG PH 7.47 (7.35-7.45); ABG PO2 109 mmHg (83-108); ABG TCO2 27 mmol/L (19-24); Allen Test Performed? Yes
[2020-09-08] MEDS: INSULIN ASPART (NovoLOG) 100 UNIT/ML VIAL SQ SCH ×3 (05:21→17:27)
[2020-09-08 06:02] LABS: Anisocytosis Slight; HCT 28.8 % (34.0-46.0); MCH 33.4 pg (25.0-35.0); MCHC 33.3 g/dL (31.0-37.0); MCV 100.5 fL (80.0-100.0); Macrocytosis Slight; Mean Platelet Volume 8.3; Platelet Count 210 k/uL (150-450); RBC 2.87 m/uL (3.80-5.40); RDW 16.2 % (11.5-15.5); WBC 12.3 k/uL (3.8-10.6)
[2020-09-08 06:14] LABS: HGB 9.6 gm/dL (11.4-16.0)
[2020-09-08] MEDS: INSULIN DETEMIR (LEVEMIR) 100 UNIT/ML SYR SQ SCH ×2 (06:28→20:06)
[2020-09-08 06:30] LABS: Calcium 8.7 mg/dL (8.4-10.2); Magnesium 2.8 mg/dL (1.6-2.3)
[2020-09-08] MEDS: SEVELAMER 800 MG TAB PO SCH (06:37)
--- NOTE | 2020-09-08 06:47 | XR ---
EXAMINATION TYPE: XR chest 1V portable DATE OF EXAM: 09/08/2020 COMPARISON: Prior chest x-ray 5 02/17/2021 HISTORY: Intubated TECHNIQUE: Single frontal view of the chest is obtained. FINDINGS: Endotracheal tube, NG tube, postop changes are again noted. Metallic density is noted over lying the left pulmonary artery, descending aorta region, the aorta is dense. Cardiac mediastinal steffi houette not significantly changed. There's been some interval increase in density right lung base, th ere is obscured right hemidiaphragm. No evident pneumothorax. Lung volumes are low. There are overlyi ng leads, artifacts. Interstitium remains somewhat increased. IMPRESSION: Possible lower lobe atelectasis versus pneumonia, difficult to exclude effusion, interst itial edema.
[2020-09-08] MEDS: NOREPINEPHRINE 4 MG in SODIUM CHLORIDE 0.9% 250 ML IV SCH (09:28)
[2020-09-08] MEDS: CHOLECALCIFEROL 25 MCG (1000 IU) TABLET PO SCH (09:35)
[2020-09-08] MEDS: AMIODARONE 100 MG TAB PO SCH (09:35)
[2020-09-08] MEDS: ASPIRIN 81 MG PO SCH (09:35)
[2020-09-08] MEDS: CHLORHEXIDINE GLUCONATE 15 ML CUP MUCOUS MEM SCH ×2 (09:35→20:00)
[2020-09-08] MEDS: CLOPIDOGREL 75 MG TAB PO SCH (09:35)
[2020-09-08] MEDS: FUROSEMIDE 10 MG/ML 10 ML VIAL IV SCH ×2 (09:36→20:00)
[2020-09-08] MEDS: EZETIMIBE 10 MG TAB PO SCH (09:36)
[2020-09-08] MEDS: MAGNESIUM OXIDE 400 MG TAB PO SCH (09:36)
[2020-09-08] MEDS: DULoxetine HCL 60 MG CAPSULE.DR PO SCH (09:36)
[2020-09-08] MEDS: metOLazone 5 MG TAB PO SCH ×2 (09:37→20:00)
[2020-09-08] MEDS: PANTOPRAZOLE 40 MG TABLET PO SCH (09:37)
[2020-09-08] MEDS: METOPROLOL SUCCINATE (ER) 50 MG TAB.ER.24H PO SCH (09:37)
--- NOTE | 2020-09-08 10:18 | P.PN ---
Subjective Patient is seen in follow-up for end-stage renal disease. Patient had cardiac arrest and required short duration of CPR. She is currently intubated. Vital signs are stable. General: The patient appeared well nourished and normally developed. HEENT: Intubated. LUNGS: Breath sounds decreased. HEART: Rate and Rhythm are regular. ABDOMEN: Soft, obese. EXTREMITITES: Trace edema. Objective - Vital Signs Vital signs: Vital Signs Temp 98.7 F 09/08/20 08:00 Pulse 76 09/08/20 10:00 Resp 18 09/08/20 10:00 BP 90/47 09/07/20 18:00 Pulse Ox 96 09/08/20 10:00 Intake & Output 09/07/20 09/08/20 09/08/20 18:59 06:59 18:59 Intake Total 1710 741.999 169.999 Output Total 6 50 25 Balance 1704 691.999 144.999 Weight 89.6 kg Intake: IV 1060 220 80 0.9 NS 1060 220 80 Intake, IV Titration 250 521.999 89.999 Amount Calcium Gluconate 1 gm In 100 Sodium Chloride 0.9% 100 ml @ 100 mls/hr IVPB ONCE ONE Rx#:[id number] Ertapenem 0.5 gm In 50 Sodium Chloride 0.9% 50 ml @ 100 mls/hr IVPB DAILY@1500 [facility] Rx#: [id number] Magnesium Sulfate-D5w Pmx 100 1 gm In Dextrose/Water 1 100ml.bag @ 100 mls/hr IVPB ONCE ONE Rx#: [id number] Norepinephrine 4 mg In 214.000 12.362 Sodium Chloride 0.9% 250 ml @ 0.05 MCG/KG/MIN 15. 986 mls/hr IV .[id number] [facility] Rx#:[id number] propofoL 1,000 mg In 307.999 77.637 Empty Bag 1 bag @ Titrate IV .Q0M [facility] Rx#: [id number] Oral 400 Output: Urine 6 50 25 Other: Voiding Method Indwelling Catheter Indwelling Catheter Indwelling Catheter ABP, PAP, CO, CI - Last Documented Arterial Blood Pressure 148/40 - Labs CBC & Chem 7: 09/08/20 05:05 09/08/20 05:05 Labs: Abnormal Lab Results - Last 24 Hours (Table) 09/07/20 09/07/2021 Range/Units 11:31 11:53 11:53 WBC (3.8-10.6) k/uL RBC 2.87 L (3.80-5.40) m/uL Hgb 9.5 L (11.4-16.0) gm/dL Hct 29.6 L (34.0-46.0) % MCV 103.1 H (80.0-100.0) fL RDW 15.9 H (11.5-15.5) % Neutrophils # 8.5 H (1.3-7.7) k/uL Lymphocytes # 0.6 L (1.0-4.8) k/uL ABG pH (7.35-7.45) ABG pCO2 (35-45) mmHg ABG pO2 (83-108) mmHg ABG HCO3 (21-25) mmol/L ABG Total CO2 (19-24) mmol/L ABG O2 Saturation (94-97) % Sodium 134 L (137-145) mmol/L Potassium 5.3 H (3.5-5.1) mmol/L Chloride 93 L (98-107) mmol/L Carbon Dioxide (22-30) mmol/L BUN 61 H (7-17) mg/dL Creatinine 7.44 H* (0.52-1.04) mg/dL Glucose 222 H (74-99) mg/dL POC Glucose (mg/dL) 240 H (75-99) mg/dL Plasma Lactic Acid Satinder (0.7-2.0) mmol/L Calcium (8.4-10.2) mg/dL Magnesium (1.6-2.3) mg/dL Alkaline Phosphatase 144 H (38-126) U/L Total Protein (6.3-8.2) g/dL Albumin 3.4 L (3.5-5.0) g/dL 09/07/20 09/07/20 09/07/20 Range/Units 12:43 13:04 13:54 WBC (3.8-10.6) k/uL RBC (3.80-5.40) m/uL Hgb (11.4-16.0) gm/dL Hct (34.0-46.0) % MCV (80.0-100.0) fL RDW (11.5-15.5) % Neutrophils # (1.3-7.7) k/uL Lymphocytes # (1.0-4.8) k/uL ABG pH 7.22 L (7.35-7.45) ABG pCO2 72 H* (35-45) mmHg ABG pO2 209 H (83-108) mmHg ABG HCO3 29 H (21-25) mmol/L ABG Total CO2 31 H (19-24) mmol/L ABG O2 Saturation 98.8 H (94-97) % Sodium (137-145) mmol/L Potassium (3.5-5.1) mmol/L Chloride (98-107) mmol/L Carbon Dioxide (22-30) mmol/L BUN (7-17) mg/dL Creatinine (0.52-1.04) mg/dL Glucose (74-99) mg/dL POC Glucose (mg/dL) 201 H 254 H (75-99) mg/dL Plasma Lactic Acid Satinder (0.7-2.0) mmol/L Calcium (8.4-10.2) mg/dL Magnesium (1.6-2.3) mg/dL Alkaline Phosphatase (38-126) U/L Total Protein (6.3-8.2) g/dL Albumin (3.5-5.0) g/dL 09/07/20 09/07/20 09/07/20 Range/Units 14:53 14:53 14:53 WBC (3.8-10.6) k/uL RBC 2.30 L (3.80-5.40) m/uL Hgb 7.5 L D (11.4-16.0) gm/dL Hct 24.3 L (34.0-46.0) % MCV 105.3 H (80.0-100.0) fL RDW 16.3 H (11.5-15.5) % Neutrophils # 8.5 H (1.3-7.7) k/uL Lymphocytes # 0.4 L (1.0-4.8) k/uL ABG pH (7.35-7.45) ABG pCO2 (35-45) mmHg ABG pO2 (83-108) mmHg ABG HCO3 (21-25) mmol/L ABG Total CO2 (19-24) mmol/L ABG O2 Saturation (94-97) % Sodium 135 L (137-145) mmol/L Potassium (3.5-5.1) mmol/L Chloride (98-107) mmol/L Carbon Dioxide 21 L (22-30) mmol/L BUN 51 H (7-17) mg/dL Creatinine 5.58 H (0.52-1.04) mg/dL Glucose 187 H (74-99) mg/dL POC Glucose (mg/dL) (75-99) mg/dL Plasma Lactic Acid Satinder 2.2 H* (0.7-2.0) mmol/L Calcium 8.2 L (8.4-10.2) mg/dL Magnesium (1.6-2.3) mg/dL Alkaline Phosphatase (38-126) U/L Total Protein 4.8 L (6.3-8.2) g/dL Albumin 2.4 L (3.5-5.0) g/dL 09/07/20 09/07/20 09/07/20 Range/Units 18:24 20:31 23:54 WBC (3.8-10.6) k/uL RBC (3.80-5.40) m/uL Hgb (11.4-16.0) gm/dL Hct (34.0-46.0) % MCV (80.0-100.0) fL RDW (11.5-15.5) % Neutrophils # (1.3-7.7) k/uL Lymphocytes # (1.0-4.8) k/uL ABG pH (7.35-7.45) ABG pCO2 (35-45) mmHg ABG pO2 (83-108) mmHg ABG HCO3 (21-25) mmol/L ABG Total CO2 (19-24) mmol/L ABG O2 Saturation (94-97) % Sodium (137-145) mmol/L Potassium (3.5-5.1) mmol/L Chloride (98-107) mmol/L Carbon Dioxide (22-30) mmol/L BUN (7-17) mg/dL Creatinine (0.52-1.04) mg/dL Glucose (74-99) mg/dL POC Glucose (mg/dL) 170 H 177 H 147 H (75-99) mg/dL Plasma Lactic Acid Satinder (0.7-2.0) mmol/L Calcium (8.4-10.2) mg/dL Magnesium (1.6-2.3) mg/dL Alkaline Phosphatase (38-126) U/L Total Protein (6.3-8.2) g/dL Albumin (3.5-5.0) g/dL 09/08/20 09/08/20 09/08/20 Range/Units 05:05 05:05 05:08 WBC 12.3 H (3.8-10.6) k/uL RBC 2.87 L (3.80-5.40) m/uL Hgb 9.6 L D (11.4-16.0) gm/dL Hct 28.8 L (34.0-46.0) % MCV 100.5 H (80.0-100.0) fL RDW 16.2 H (11.5-15.5) % Neutrophils # (1.3-7.7) k/uL Lymphocytes # (1.0-4.8) k/uL ABG pH 7.47 H (7.35-7.45) ABG pCO2 (35-45) mmHg ABG pO2 109 H (83-108) mmHg ABG HCO3 26 H (21-25) mmol/L ABG Total CO2 27 H (19-24) mmol/L ABG O2 Saturation 97.4 H (94-97) % Sodium 135 L (137-145) mmol/L Potassium (3.5-5.1) mmol/L Chloride 97 L (98-107) mmol/L Carbon Dioxide (22-30) mmol/L BUN 67 H (7-17) mg/dL Creatinine 7.69 H* (0.52-1.04) mg/dL Glucose 118 H (74-99) mg/dL POC Glucose (mg/dL) (75-99) mg/dL Plasma Lactic Acid Satinder (0.7-2.0) mmol/L Calcium (8.4-10.2) mg/dL Magnesium 2.8 H (1.6-2.3) mg/dL Alkaline Phosphatase (38-126) U/L Total Protein (6.3-8.2) g/dL Albumin (3.5-5.0) g/dL 09/08/20 Range/Units 05:10 WBC (3.8-10.6) k/uL RBC (3.80-5.40) m/uL Hgb (11.4-16.0) gm/dL Hct (34.0-46.0) % MCV (80.0-100.0) fL RDW (11.5-15.5) % Neutrophils # (1.3-7.7) k/uL Lymphocytes # (1.0-4.8) k/uL ABG pH (7.35-7.45) ABG pCO2 (35-45) mmHg ABG pO2 (83-108) mmHg ABG HCO3 (21-25) mmol/L ABG Total CO2 (19-24) mmol/L ABG O2 Saturation (94-97) % Sodium (137-145) mmol/L Potassium (3.5-5.1) mmol/L Chloride (98-107) mmol/L Carbon Dioxide (22-30) mmol/L BUN (7-17) mg/dL Creatinine (0.52-1.04) mg/dL Glucose (74-99) mg/dL POC Glucose (mg/dL) 128 H (75-99) mg/dL Plasma Lactic Acid Satinder (0.7-2.0) mmol/L Calcium (8.4-10.2) mg/dL Magnesium (1.6-2.3) mg/dL Alkaline Phosphatase (38-126) U/L Total Protein (6.3-8.2) g/dL Albumin (3.5-5.0) g/dL Microbiology - Last 24 Hours (Table) 09/05/20 10:24 Blood Culture Gram Stain - Final Blood Blood Culture - Final Escherichia coli 09/05/20 10:23 Blood Culture Gram Stain - Final Blood Blood Culture - Final Escherichia coli 09/05/20 10:23 Urine Culture - Final Urine,Catheterized Escherichia coli 09/06/20 11:12 Blood Culture - Preliminary Blood No Growth after 24 hours 09/06/20 11:12 Blood Culture - Preliminary Blood No Growth after 24 hours Assessment and Plan Plan: Assessment: 1. End-stage renal disease maintained on hemodialysis on Monday schedule. 2. E. coli bacteremia. Urine culture positive for E. coli. On antibiotics per infectious disease. 3. Hyponatremia secondary to chronic kidney disease. Improved. 4. Diabetes mellitus. 5. 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 6. Anemia of chronic kidney disease. Maintained on Aranesp. Avoid IV iron in the setting of bacteremia. 7. Status post cardiac arrest on September 07. ? Aspiration. Plan: Hemodialysis today. Antibiotics per infectious disease. Wean FiO2.
--- NOTE | 2020-09-08 10:49 | P.CRDCN ---
History of Present Illness History of present illness: HISTORY OF PRESENTING ILLNESS This is a pleasant 74-year-old female past medical history significant for hypertension, dyslipidemia, diabetes mellitus, coronary artery disease s/p PCI mid LAD angioplasty D1 and PCI OM, valvular heart disease status post TAVR 2018, paroxysmal atrial fibrillation not on anti-coagulation due to GI bleeding and increased falls, end stage renal disease on HD and peripheral vascular disease. She follows in the office with Dr. Combs. We have been asked to see in consultation for cardiac arrest. Yesterday while she was eating lunch she went unresponsive. According to the documentation CPR was initiated and ROSC was achieved. She was intubated and transferred to the ICU. She is seen and examined today resting comfortably in bed on sedation and mechanically ventilated. EKG on arrival revealed sinus mechanism, right bundle branch block and left anterior fasicular block. Repeat EKG after arrest revealed ongoing right bundle with ST changes in lead V3 only that appear to be evident of 2:1 atrial tachycardia. Laboratory data reviewed, WBC 12.3, hemoglobin 9.6, pH 7.4, pCO2 immediately after cardiac arrest was 72 down to 35, sodium 135, potassium 5.0, creatinine 7.69, magnesium 2.8. Current daily cardiac medications include amiodarone 100 mg daily, Zetia 10 mg daily, Lasix 80 mg twice a day, Plavix 75 mg daily, Zaroxolyn 5 mg twice a day and Toprol 50 mg daily. Most recent catheterization performed 01/2019 revealed diffuse coronary artery disease with a patent stent in the mid LAD and OM, critical lesion involving the ostium of the diagonal, mild to moderate disease in the proximal LAD and mid circumflex. At that time it was recommended to maximize her medical therapy. Most recent echocardiogram obtained revealed preserved LV systolic function with EF 55-60%, mild s/p TAVR with mean gradient of 14 mmHg, mild-moderate MR with mean gradient across the MV of 8 mmHG, moderate-severe TR and severe PH with mean gradient of 72 mmHg . REVIEW OF SYSTEMS At the time of my exam: Unable to obtain review of systems due to sedation and mechanical ventilation. PHYSICAL EXAMINATION Blood pressure 147/37 heart rate 37 afebrile and maintaining oxygen saturation on mechanical ventilation. CONSTITUTIONAL: Sedated. HEENT: Head is normocephalic. Pupils are equal, round. Sclerae anicteric. Mucous membranes of the mouth are moist. Unable to evaluate JVD due to body habitus. No carotid bruit. CHEST EXAMINATION: Lungs are clear to auscultation. No chest wall tenderness is noted on palpation or with deep breathing. HEART EXAMINATION: Regular rate and rhythm. S1, S2 heard. Systolic ejection murmur at the base, no gallops or rub. ABDOMEN: Soft, nontender. Positive bowel sounds. EXTREMITIES: 2+ peripheral pulses, no lower extremity edema and no calf tenderness. NEUROLOGIC EXAMINATION: Patient is sedated. ASSESSMENT Sepsis secondary to UTI Cardiac arrest Coronary artery disease Paroxysmal atrial fibrillation not on anti-coagulation due to GI bleed and high fall risk Valvular heart disease s/p TAVR Mitral stenosis Pulmonary hypertension Peripheral vascular disease End stage renal disease on dialysis PLAN Repeat EKG. Obtain limited echo to assess LV function. Continue with dialysis per nephrology. Thank you kindly for this consultation. Nurse Practitioner note has been reviewed, I agree with a documented findings an d plan of care. Patient was seen and examined. Past Medical History Past Medical History: Atrial Fibrillation, Coronary Artery Disease (CAD), Heart Failure, Diabetes Mellitus, Dialysis, GERD/Reflux, GI Bleed, Hyperlipidemia, Hypertension, Myocardial Infarction ([place]), Pneumonia, Renal Disease, Sleep Apnea/CPAP/BIPAP, Vascular Disorder Additional Past Medical History / Comment(s): HEMODIALYSIS- MONDAY,MONDAY,AND MONDAY . USES WHEELCHAIR-TRANSFERS ONLY -CAN TAKE A COUPLE OF STEPS, hx. GI bleed >year ago, SOB w/exertion, uses oxygen prn @2l, see Dr Combs H & P. TAVR Last Myocardial Infarction Date:: 2015 History of Any Multi-Drug Resistant Organisms: MRSA Date of last positivie culture/infection: 02/09/18 MDRO Source:: LT THIRD TOE Past Surgical History: Back Surgery, Cholecystectomy, Heart Catheterization, Heart Catheterization With Stent, Hysterectomy, Orthopedic Surgery Additional Past Surgical History / Comment(s): PCI with stents, several back surgeries-lumbar, bilateral carpal tunnel releases, bilateral cataract removals, port then fistula for hemodialysis. PTBA to left leg 03-02-18. TAVR [facility] [address] Rock at [facility] Past Anesthesia/Blood Transfusion Reactions: Previous Problems w/ Anesthesia Additional Past Anesthesia/Blood Transfusion Reaction / Comment(s): Confusion that resolved. Date of Last Stent Placement:: 10/06/17 Past Psychological History: No Psychological Hx Reported Smoking Status: Never smoker Past Alcohol Use History: None Reported Past Drug Use History: None Reported - Past Family History Father Additional Family Medical History / Comment(s): Brain aneurysm ; age 72 Sister(s) Family Medical History: Hypertension Additional Family Medical History / Comment(s): Aortic stenosis; mitral valve disease Mother Family Medical History: No Reported History, AFIB, CVA/TIA, Hypertension Additional Family Medical History / Comment(s): mother age 83 Daughter(s) Family Medical History: Asthma Son(s) Family Medical History: Asthma Medications and Allergies Home Medications Medication Instructions Recorded Confirmed Type DULoxetine HCL [Cymbalta] 60 mg PO DAILY 08/04/14 09/05/20 History Amiodarone HCl [Pacerone] 100 mg PO DAILY 11/22/15 09/05/20 History Ezetimibe [Zetia] 10 mg PO DAILY 11/22/15 09/05/20 History Gabapentin [Neurontin] 300 mg PO BID #60 capsule 11/27/15 09/05/20 Rx Omeprazole 20 mg PO DAILY 12/25/16 09/05/20 History Magnesium Oxide [Mag-Ox] 250 mg PO DAILY 05/05/17 09/05/20 History Clopidogrel [Plavix] 75 mg PO DAILY #30 tab 08/21/17 09/05/20 Rx Aspirin [Adult Low Dose Aspirin EC] 81 mg PO DAILY 03/02/18 09/05/20 History metOLazone [Zaroxolyn] 5 mg PO BID 02/11/19 09/05/20 History Cranberry 4200mg 4,200 mg PO BID 01/12/20 09/05/20 History Furosemide [Lasix] 80 mg PO BID 01/12/20 09/05/20 History Insulin Aspart [NovoLOG Flexpen] 10 - 12 units SQ AC-TID 01/12/20 09/05/20 History Insulin Glargine,Hum.rec.anlog 20 units SQ BID 01/12/20 09/05/20 History [Lantus Solostar] Metoprolol Succinate (ER) [Toprol 50 mg PO DAILY 01/12/20 09/05/20 History XL] Sevelamer [Renvela] 800 mg PO AC-BRKFST 01/12/20 09/05/20 History Ferrous Sulfate [Iron (65 MG 325 mg PO DAILY 06/09/20 09/05/20 History Elemental)] Vitamin C/Biotin [Hair, Skin and 1 tab PO BID 06/09/20 09/05/20 History Nails] Methenamine Hippurate 1 gm PO BID #60 tablet 06/12/20 09/05/20 Rx Cholecalciferol [Vitamin D3 (25 50 mcg PO DAILY 09/05/20 09/05/20 History Mcg = 1000 Iu)] Midodrine HCl [ProAmatine] 10 mg PO DIRECTED PRN 09/05/20 09/05/20 History Allergies Allergy/AdvReac Type Severity Reaction Status Date / Time KUSHAL Inhibitors Allergy Swelling Verified 09/05/20 12:05 ARB-Angiotensin Receptor Allergy Swelling Verified 09/05/20 12:05 Antagonist cephalexin monohydrate Allergy Rash/Hives, Verified 09/05/20 12:05 [From Keflex] MOUTH SWELLING propoxyphene HCl AdvReac Hallucinati Verified 09/05/20 12:05 [From Darvon] ons Unusrvm-Ute-Zpr Reductase AdvReac Myalgia Verified 09/05/20 12:05 Inhibitor Physical Exam Vitals: Vital Signs Temp Pulse Resp BP Pulse Ox 09/08/20 08:00 98.7 F 68 18 95 09/08/20 07:00 68 18 94 L 09/08/20 06:00 70 18 98 09/08/20 05:45 68 18 95 09/08/20 05:30 69 18 96 09/08/20 05:15 72 18 99 09/08/20 05:00 72 18 99 09/08/20 04:45 72 18 99 09/08/20 04:30 71 18 99 09/08/20 04:15 69 18 99 09/08/20 04:00 98.6 F 67 18 99 09/08/20 03:45 66 18 99 09/08/20 03:30 67 18 99 09/08/20 03:15 67 18 98 09/08/20 03:00 67 18 99 09/08/20 02:45 67 18 99 09/08/20 02:30 68 18 99 09/08/20 02:15 66 18 99 09/08/20 02:00 66 18 100 09/08/20 01:45 65 18 100 09/08/20 01:30 66 18 100 09/08/20 01:15 67 18 100 09/08/20 01:00 67 18 100 09/08/20 00:45 67 18 100 09/08/20 00:30 67 18 99 09/08/20 00:15 66 18 99 09/08/20 00:00 98.3 F 67 18 99 09/07/20 23:45 67 18 99 09/07/20 23:30 67 18 99 09/07/20 23:15 66 18 99 09/07/20 23:06 66 18 98 09/07/20 23:00 66 18 99 09/07/20 22:45 67 18 99 09/07/20 22:30 68 18 100 09/07/20 22:15 67 18 100 09/07/20 22:00 67 18 100 09/07/20 21:45 67 18 100 09/07/20 21:30 70 18 100 09/07/20 21:15 70 18 94 L 09/07/20 21:00 70 18 100 09/07/20 20:45 71 18 99 09/07/20 20:30 71 18 97 09/07/20 20:15 73 95 09/07/20 20:00 99 F 18 100 09/07/20 19:45 85 33 H 09/07/20 19:30 79 27 H 09/07/20 19:15 76 18 09/07/20 19:00 76 18 09/07/20 18:45 77 18 09/07/20 18:30 79 18 09/07/20 18:15 78 18 09/07/20 18:00 77 18 90/47 09/07/20 17:45 77 18 90/47 09/07/20 17:30 76 7 L 90/47 09/07/20 17:15 72 18 90/47 09/07/20 17:00 68 18 90/47 09/07/20 16:45 66 18 90/47 09/07/20 16:30 66 18 90/47 09/07/20 16:15 70 14 90/47 09/07/20 16:00 98.5 F 74 12 09/07/20 15:45 61 0 L 90/47 81 L 09/07/20 15:30 85 18 90/47 93 L 09/07/20 15:15 71 14 90/47 88 L 05/10/21 15:00 83 18 09/07/20 14:45 87 18 66/44 09/07/20 14:30 90 12 70/39 09/07/20 14:15 87 12 76/43 09/07/20 14:00 98.2 F 98 12 126/60 97 09/07/20 13:45 105 H 12 128/66 09/07/20 13:30 105 H 12 127/65 100 09/07/20 13:15 101/60 99 09/07/20 13:05 110 H 10 L Intake and Output 09/07/20 09/08/20 09/08/20 22:59 06:59 14:59 Intake Total 1512.967 539.032 116.874 Output Total 21 35 10 Balance 1491.967 504.032 106.874 Intake: IV 1120 160 40 0.9 NS 1120 160 40 Intake, IV Titration 392.967 379.032 76.874 Amount Calcium Gluconate 1 gm In 100 Sodium Chloride 0.9% 100 ml @ 100 mls/hr IVPB ONCE ONE Rx#:[id number] Ertapenem 0.5 gm In 50 Sodium Chloride 0.9% 50 ml @ 100 mls/hr IVPB DAILY@1500 [facility] Rx#: [id number] Magnesium Sulfate-D5w Pmx 100 1 gm In Dextrose/Water 1 100ml.bag @ 100 mls/hr IVPB ONCE ONE Rx#: [id number] Norepinephrine 4 mg In 142.967 71.033 12.362 Sodium Chloride 0.9% 250 ml @ 0.05 MCG/KG/MIN 15. 986 mls/hr IV .[id number] [facility] Rx#:[id number] propofoL 1,000 mg In 307.999 64.512 Empty Bag 1 bag @ Titrate IV .Q0M [facility] Rx#: [id number] Output: Urine 21 35 10 Other: Voiding Method Indwelling Catheter Indwelling Catheter Indwelling Catheter Weight 89.6 kg ABP, PAP, CO, CI - Last 8 Hours Arterial Blood Pressure 146/42 Arterial Blood Pressure 143/38 Arterial Blood Pressure 150/42 Arterial Blood Pressure 142/38 Arterial Blood Pressure 153/41 Arterial Blood Pressure 143/43 Arterial Blood Pressure 147/42 Arterial Blood Pressure 146/41 Arterial Blood Pressure 142/41 Arterial Blood Pressure 141/41 Arterial Blood Pressure 141/41 Arterial Blood Pressure 139/41 Arterial Blood Pressure 132/40 Arterial Blood Pressure 138/41 Arterial Blood Pressure 144/43 Arterial Blood Pressure 145/43 Arterial Blood Pressure 141/42 Arterial Blood Pressure 139/42 Arterial Blood Pressure 138/42 Arterial Blood Pressure 141/43 Arterial Blood Pressure 136/43 Arterial Blood Pressure 133/42 Arterial Blood Pressure 131/41 Results 09/08/20 05:05 09/08/20 05:05 Cardiac Enzymes 09/07/20 09/07/20 Range/Units 11:53 14:53 AST 27 26 (14-36) U/L CBC 09/07/20 09/07/20 09/08/20 Range/Units 11:53 14:53 05:05 WBC 10.3 9.9 12.3 H (3.8-10.6) k/uL RBC 2.87 L 2.30 L 2.87 L (3.80-5.40) m/uL Hgb 9.5 L 7.5 L D 9.6 L D (11.4-16.0) gm/dL Hct 29.6 L 24.3 L 28.8 L (34.0-46.0) % Plt Count 182 157 210 (150-450) k/uL Comprehensive Metabolic Panel 09/07/20 09/07/20 09/08/20 Range/Units 11:53 14:53 05:05 Sodium 134 L 135 L 135 L (137-145) mmol/L Potassium 5.3 H 4.6 5.0 (3.5-5.1) mmol/L Chloride 93 L 103 97 L (98-107) mmol/L Carbon Dioxide 27 21 L 24 (22-30) mmol/L BUN 61 H 51 H 67 H (7-17) mg/dL Creatinine 7.44 H* 5.58 H 7.69 H* (0.52-1.04) mg/dL Glucose 222 H 187 H 118 H (74-99) mg/dL Calcium 8.9 8.2 L 8.7 (8.4-10.2) mg/dL AST 27 26 (14-36) U/L ALT 14 12 (4-34) U/L Alkaline Phosphatase 144 H 103 (38-126) U/L Total Protein 6.7 4.8 L (6.3-8.2) g/dL Albumin 3.4 L 2.4 L (3.5-5.0) g/dL Current Medications Generic Name Dose Route Start Last Admin Trade Name Freq PRN Reason Stop Dose Admin Acetaminophen 325 mg 09/06/20 09:58 Acetaminophen Tab 325 Mg Tab PO Q6HR PRN Fever and/ or Pain Amiodarone HCl 100 mg 09/06/20 09:00 09/07/20 08:15 Amiodarone 100 Mg Tab PO 100 mg DAILY JONEL Administration Aspirin 81 mg 09/06/20 09:00 09/07/20 08:14 Aspirin 81 Mg PO 81 mg DAILY JONEL Administration Chlorhexidine Gluconate 15 ml 09/07/20 21:00 09/07/20 20:17 Chlorhexidine Gluconate 15 Ml Cup MUCOUS MEM 15 ml BID JONEL Administration Cholecalciferol 50 mcg 09/06/20 09:00 09/07/20 08:14 Cholecalciferol 25 Mcg (1000 Iu) Tablet PO 50 mcg DAILY JONEL Administration Clopidogrel Bisulfate 75 mg 09/06/20 09:00 09/07/20 08:14 Clopidogrel 75 Mg Tab PO 75 mg DAILY JONEL Administration Darbepoetin Aron 40 mcg 09/07/20 13:00 09/07/20 17:08 Darbepoetin Aron 40 Mcg/0.4 Ml Syringe SQ 40 mcg Q7D JONEL Administration Duloxetine HCl 60 mg 09/06/20 09:00 09/07/20 08:14 Duloxetine Hcl 60 Mg Capsule.Dr PO 60 mg DAILY JONEL Administration Ezetimibe 10 mg 09/06/20 09:00 09/07/20 08:15 Ezetimibe 10 Mg Tab PO 10 mg DAILY JONEL Administration Furosemide 80 mg 09/07/20 14:45 09/07/20 20:17 Furosemide 10 Mg/Ml 10 Ml Vial IV 80 mg Q12HR JONEL Administration Ertapenem 0.5 gm/ Sodium 50 mls @ 100 mls/hr 09/06/20 15:00 09/07/20 16:49 Chloride IVPB 100 mls/hr DAILY@1500 JONEL Administration Protocol Propofol 1,000 mg/ IV Solution 100 mls @ 0 mls/hr 09/07/20 14:45 09/08/20 08:22 IV 30 mcg/kg/min .Q0M JONEL 16.128 mls/hr Titration Protocol Titrate Norepinephrine Bitartrate 4 mg 254 mls @ 15.986 mls/hr 09/07/20 16:00 0505/21 08:23 / Sodium Chloride IV 0 mcg/kg/min .[id number] JONEL 0 mls/hr Titration Protocol 0.05 MCG/KG/MIN Insulin Aspart 0 unit 09/07/20 18:00 09/08/20 05:21 Insulin Aspart (Novolog) 100 Unit/Ml Vial SQ Not Given Q6HR JONEL Protocol Insulin Detemir 20 unit 09/05/20 21:00 09/08/20 06:28 Insulin Detemir (Levemir) 100 Unit/Ml Syr SQ 20 unit BID@0700,2100 JONEL Administration Magnesium Oxide 400 mg 09/06/20 09:00 09/07/20 08:14 Magnesium Oxide 400 Mg Tab PO 400 mg DAILY JONEL Administration Metolazone 5 mg 09/05/20 21:00 09/07/20 20:17 Metolazone 5 Mg Tab PO 5 mg BID JONEL Administration Metoprolol Succinate 50 mg 09/06/20 09:00 09/07/20 08:14 Metoprolol Succinate (Er) 50 Mg Tab.Er.24h PO 50 mg DAILY JONEL Administration Midodrine 10 mg 09/05/20 16:54 09/06/20 14:04 Midodrine 5 Mg Tab PO 10 mg DIRECTED PRN Administration DIALYSIS, LOW BLOOD PRESSURE Miscellaneous Information 1 each 09/05/20 11:19 Pneumonia Protocol Utilized 1 Each Misc PO ONCE PRN Per Protocol Pantoprazole Sodium 40 mg 09/06/20 09:00 09/07/20 08:14 Pantoprazole 40 Mg Tablet PO 40 mg DAILY JONEL Administration Sevelamer Carbonate 800 mg 09/06/20 07:30 09/08/20 06:37 Sevelamer 800 Mg Tab PO Not Given AC-BRKFST JONEL Intake and Output 09/07/20 09/08/20 09/08/20 22:59 06:59 14:59 Intake Total 1512.967 539.032 116.874 Output Total 21 35 10 Balance 1491.967 504.032 106.874 Intake: IV 1120 160 40 0.9 NS 1120 160 40 Intake, IV Titration 392.967 379.032 76.874 Amount Calcium Gluconate 1 gm In 100 Sodium Chloride 0.9% 100 ml @ 100 mls/hr IVPB ONCE ONE Rx#:[id number] Ertapenem 0.5 gm In 50 Sodium Chloride 0.9% 50 ml @ 100 mls/hr IVPB DAILY@1500 [facility] Rx#: [id number] Magnesium Sulfate-D5w Pmx 100 1 gm In Dextrose/Water 1 100ml.bag @ 100 mls/hr IVPB ONCE ONE Rx#: [id number] Norepinephrine 4 mg In 142.967 71.033 12.362 Sodium Chloride 0.9% 250 ml @ 0.05 MCG/KG/MIN 15. 986 mls/hr IV .[id number] [facility] Rx#:[id number] propofoL 1,000 mg In 307.999 64.512 Empty Bag 1 bag @ Titrate IV .Q0M [facility] Rx#: [id number] Output: Urine 21 35 10 Other: Voiding Method Indwelling Catheter Indwelling Catheter Indwelling Catheter Weight 89.6 kg 09/08/20 05:05 09/08/20 05:05
[2020-09-08 11:42] LABS: Glucose,Whole Blood 103 mg/dL (75-99)
--- NOTE | 2020-09-08 11:54 | P.PN ---
Subjective Progress Note Date: 09/08/20 Principal diagnosis: Cardiac arrest This is a 74-year-old female primarily a patient of Dr. Farias, known history of multiple medical problems including chronic atrial fibrillation, mostly paroxysmal in nature, coronary artery disease, previous AL, history of obstructive sleep apnea on CPAP at home, history of end-stage renal disease on hemodialysis history of aortic stenosis and previous T aVR in 2018. History of multiple urinary tract infections. Patient was admitted on 09/05/2020, her admitting diagnosis was sepsis secondary to urinary tract infection and patient was seen by infectious disease on consultation. Has been on proper antibiotics. Patient has been on Invanz, and she was being followed by many consultants on the case. Initially, the patient was on cefepime but this was later changed to Invanz. And she had multiple positive blood cultures for E. coli. At any rate patient was on the medical floor today, and around 1: 19, patient had a CODE BLUE. CPR was started, apparently patient was feeding at the time she had CODE BLUE. Questionable choking on her hamburger. Patient had no pulse, and went unresponsive. Spontaneous circulation was noted after 1 round of CPR and she was having episodes of apnea. Patient was intubated by [employer], 12-lead EKG at the time showed sinus tachycardia without any ischemic changes. Patient was eventually placed on mechanical ventilation, and she was transferred to the ICU. I saw the patient shortly after she arrived to the ICU, and reviewed her ABG also reviewed her chest x-ray. Her chest x-ray showed endotracheal tube about 4.8 cm from the level of the nicolás. There was no evidence of infiltrate, minimal atelectasis is noted. ABG showed a pO2 of 219 pCO2 of 72 pH of 7.22, hence her ventilator settings were adjusted by increasing her assist control rate of mechanical ventilation, and drop down her FiO2 to 50%. Repeat ABG is pending. Labs were basically unremarkable except for BUN of 51 creatinine of 5.58, remind you patient is known to have history of chronic renal failure and on hemodialysis. Lactic acid was noted to be at 2.2 and her watson virus PCR was negative. Patient initial complaint on admission was mostly symptoms of weakness with symptoms of urinary tract infection and her initial blood cultures and urine cultures were positive for E. coli. Looking at the chart, patient received 1 dose of epinephrine and 1 amp of bicarb patient was actually intubated at 1243, EKG showed wide complex tachycardia after return of spontaneous circulation. Last dialysis on this patient was yesterday. Patient was reevaluated today on 09/08/2020, remains in the ICU, intubated and mechanically ventilated. Her assist control rate is 18 tidal volume 450 FiO2 45% PEEP of 5 ABG showed a pO2 of 109 pCO2 of 35 pH of 7.47. Patient is on propofol at 30 mcg/kg/m she is off norepinephrine and her IV fluid at KVO. Patient remains on Invanz for her E. coli urinary tract infection and bacteremia. Chest x-ray showed basilar atelectasis, difficult to rule out pneumonia, and she does have some interstitial edema. WBC count today is 12.3 hemoglobin is 9.6. Electrolytes are normal however her BUN is 67 creatinine 7.69 Objective - Vital Signs Vital signs: Vital Signs Temp 98.7 F 09/08/20 08:00 Pulse 68 09/08/20 11:00 Resp 19 09/08/20 11:00 BP 90/47 09/07/20 18:00 Pulse Ox 96 09/08/20 11:00 Intake & Output 09/07/20 09/08/20 09/08/20 18:59 06:59 18:59 Intake Total 1710 741.999 189.999 Output Total 6 50 35 Balance 1704 691.999 154.999 Weight 89.6 kg 89.6 kg Intake: IV 1060 220 100 0.9 NS 1060 220 100 Intake, IV Titration 250 521.999 89.999 Amount Calcium Gluconate 1 gm In 100 Sodium Chloride 0.9% 100 ml @ 100 mls/hr IVPB ONCE ONE Rx#:[id number] Ertapenem 0.5 gm In 50 Sodium Chloride 0.9% 50 ml @ 100 mls/hr IVPB DAILY@1500 [facility] Rx#: [id number] Magnesium Sulfate-D5w Pmx 100 1 gm In Dextrose/Water 1 100ml.bag @ 100 mls/hr IVPB ONCE ONE Rx#: [id number] Norepinephrine 4 mg In 214.000 12.362 Sodium Chloride 0.9% 250 ml @ 0.05 MCG/KG/MIN 15. 986 mls/hr IV .[id number] [facility] Rx#:[id number] propofoL 1,000 mg In 307.999 77.637 Empty Bag 1 bag @ Titrate IV .Q0M [facility] Rx#: [id number] Oral 400 Output: Urine 6 50 35 Other: Voiding Method Indwelling Catheter Indwelling Catheter Indwelling Catheter ABP, PAP, CO, CI - Last Documented Arterial Blood Pressure 133/33 - Exam Physical Exam: Revealed 74-year-old female intubated and mechanically ventil ated, sedated, on propofol. Head: Atraumatic, normocephalic. HEENT:[Neck is supple.] [No neck masses.] [No thyromegaly.] [No JVD.] PERRLA, EOMI, nonicteric. No neck masses, no JVD, no stridor. Chest: [Her metrical chest expansion, minimal crackles at the bases. Cardiac Exam: [Normal S1 and S2, no S3 gallop, 3/6 systolic murmur thought the precordium. Abdomen: [Soft, nontender, no megaly, no rebound, no guarding, normal bowel sounds.] Extremities: [No clubbing, no edema, no cyanosis.] AV fistula noted in the left arm. Midline is noted in the right arm. Neurological Exam: Cannot be assessed, patient is sedated, and mechanically ventilated Psychiatric: Could not assess. - Labs CBC & Chem 7: 09/08/20 05:05 09/08/20 05:05 Labs: Abnormal Lab Results - Last 24 Hours (Table) 09/07/20 09/07/20 09/07/20 Range/Units 11:53 11:53 12:43 WBC (3.8-10.6) k/uL RBC 2.87 L (3.80-5.40) m/uL Hgb 9.5 L (11.4-16.0) gm/dL Hct 29.6 L (34.0-46.0) % MCV 103.1 H (80.0-100.0) fL RDW 15.9 H (11.5-15.5) % Neutrophils # 8.5 H (1.3-7.7) k/uL Lymphocytes # 0.6 L (1.0-4.8) k/uL ABG pH (7.35-7.45) ABG pCO2 (35-45) mmHg ABG pO2 (83-108) mmHg ABG HCO3 (21-25) mmol/L ABG Total CO2 (19-24) mmol/L ABG O2 Saturation (94-97) % Sodium 134 L (137-145) mmol/L Potassium 5.3 H (3.5-5.1) mmol/L Chloride 93 L (98-107) mmol/L Carbon Dioxide (22-30) mmol/L BUN 61 H (7-17) mg/dL Creatinine 7.44 H* (0.52-1.04) mg/dL Glucose 222 H (74-99) mg/dL POC Glucose (mg/dL) 201 H (75-99) mg/dL Plasma Lactic Acid Satinder (0.7-2.0) mmol/L Calcium (8.4-10.2) mg/dL Magnesium (1.6-2.3) mg/dL Alkaline Phosphatase 144 H (38-126) U/L Total Protein (6.3-8.2) g/dL Albumin 3.4 L (3.5-5.0) g/dL 09/07/20 09/07/20 09/07/20 Range/Units 13:04 13:54 14:53 WBC (3.8-10.6) k/uL RBC 2.30 L (3.80-5.40) m/uL Hgb 7.5 L D (11.4-16.0) gm/dL Hct 24.3 L (34.0-46.0) % MCV 105.3 H (80.0-100.0) fL RDW 16.3 H (11.5-15.5) % Neutrophils # 8.5 H (1.3-7.7) k/uL Lymphocytes # 0.4 L (1.0-4.8) k/uL ABG pH 7.22 L (7.35-7.45) ABG pCO2 72 H* (35-45) mmHg ABG pO2 209 H (83-108) mmHg ABG HCO3 29 H (21-25) mmol/L ABG Total CO2 31 H (19-24) mmol/L ABG O2 Saturation 98.8 H (94-97) % Sodium (137-145) mmol/L Potassium (3.5-5.1) mmol/L Chloride (98-107) mmol/L Carbon Dioxide (22-30) mmol/L BUN (7-17) mg/dL Creatinine (0.52-1.04) mg/dL Glucose (74-99) mg/dL POC Glucose (mg/dL) 254 H (75-99) mg/dL Plasma Lactic Acid Satinder (0.7-2.0) mmol/L Calcium (8.4-10.2) mg/dL Magnesium (1.6-2.3) mg/dL Alkaline Phosphatase (38-126) U/L Total Protein (6.3-8.2) g/dL Albumin (3.5-5.0) g/dL 09/07/20 09/07/20 09/07/20 Range/Units 14:53 14:53 18:24 WBC (3.8-10.6) k/uL RBC (3.80-5.40) m/uL Hgb (11.4-16.0) gm/dL Hct (34.0-46.0) % MCV (80.0-100.0) fL RDW (11.5-15.5) % Neutrophils # (1.3-7.7) k/uL Lymphocytes # (1.0-4.8) k/uL ABG pH (7.35-7.45) ABG pCO2 (35-45) mmHg ABG pO2 (83-108) mmHg ABG HCO3 (21-25) mmol/L ABG Total CO2 (19-24) mmol/L ABG O2 Saturation (94-97) % Sodium 135 L (137-145) mmol/L Potassium (3.5-5.1) mmol/L Chloride (98-107) mmol/L Carbon Dioxide 21 L (22-30) mmol/L BUN 51 H (7-17) mg/dL Creatinine 5.58 H (0.52-1.04) mg/dL Glucose 187 H (74-99) mg/dL POC Glucose (mg/dL) 170 H (75-99) mg/dL Plasma Lactic Acid Satinder 2.2 H* (0.7-2.0) mmol/L Calcium 8.2 L (8.4-10.2) mg/dL Magnesium (1.6-2.3) mg/dL Alkaline Phosphatase (38-126) U/L Total Protein 4.8 L (6.3-8.2) g/dL Albumin 2.4 L (3.5-5.0) g/dL 09/07/20 09/07/20 09/08/20 Range/Units 20:31 23:54 05:05 WBC (3.8-10.6) k/uL RBC (3.80-5.40) m/uL Hgb (11.4-16.0) gm/dL Hct (34.0-46.0) % MCV (80.0-100.0) fL RDW (11.5-15.5) % Neutrophils # (1.3-7.7) k/uL Lymphocytes # (1.0-4.8) k/uL ABG pH (7.35-7.45) ABG pCO2 (35-45) mmHg ABG pO2 (83-108) mmHg ABG HCO3 (21-25) mmol/L ABG Total CO2 (19-24) mmol/L ABG O2 Saturation (94-97) % Sodium 135 L (137-145) mmol/L Potassium (3.5-5.1) mmol/L Chloride 97 L (98-107) mmol/L Carbon Dioxide (22-30) mmol/L BUN 67 H (7-17) mg/dL Creatinine 7.69 H* (0.52-1.04) mg/dL Glucose 118 H (74-99) mg/dL POC Glucose (mg/dL) 177 H 147 H (75-99) mg/dL Plasma Lactic Acid Satinder (0.7-2.0) mmol/L Calcium (8.4-10.2) mg/dL Magnesium 2.8 H (1.6-2.3) mg/dL Alkaline Phosphatase (38-126) U/L Total Protein (6.3-8.2) g/dL Albumin (3.5-5.0) g/dL 09/08/20 09/08/20 09/08/20 Range/Units 05:05 05:08 05:10 WBC 12.3 H (3.8-10.6) k/uL RBC 2.87 L (3.80-5.40) m/uL Hgb 9.6 L D (11.4-16.0) gm/dL Hct 28.8 L (34.0-46.0) % MCV 100.5 H (80.0-100.0) fL RDW 16.2 H (11.5-15.5) % Neutrophils # (1.3-7.7) k/uL Lymphocytes # (1.0-4.8) k/uL ABG pH 7.47 H (7.35-7.45) ABG pCO2 (35-45) mmHg ABG pO2 109 H (83-108) mmHg ABG HCO3 26 H (21-25) mmol/L ABG Total CO2 27 H (19-24) mmol/L ABG O2 Saturation 97.4 H (94-97) % Sodium (137-145) mmol/L Potassium (3.5-5.1) mmol/L Chloride (98-107) mmol/L Carbon Dioxide (22-30) mmol/L BUN (7-17) mg/dL Creatinine (0.52-1.04) mg/dL Glucose (74-99) mg/dL POC Glucose (mg/dL) 128 H (75-99) mg/dL Plasma Lactic Acid Satinder (0.7-2.0) mmol/L Calcium (8.4-10.2) mg/dL Magnesium (1.6-2.3) mg/dL Alkaline Phosphatase (38-126) U/L Total Protein (6.3-8.2) g/dL Albumin (3.5-5.0) g/dL 09/08/20 Range/Units 11:41 WBC (3.8-10.6) k/uL RBC (3.80-5.40) m/uL Hgb (11.4-16.0) gm/dL Hct (34.0-46.0) % MCV (80.0-100.0) fL RDW (11.5-15.5) % Neutrophils # (1.3-7.7) k/uL Lymphocytes # (1.0-4.8) k/uL ABG pH (7.35-7.45) ABG pCO2 (35-45) mmHg ABG pO2 (83-108) mmHg ABG HCO3 (21-25) mmol/L ABG Total CO2 (19-24) mmol/L ABG O2 Saturation (94-97) % Sodium (137-145) mmol/L Potassium (3.5-5.1) mmol/L Chloride (98-107) mmol/L Carbon Dioxide (22-30) mmol/L BUN (7-17) mg/dL Creatinine (0.52-1.04) mg/dL Glucose (74-99) mg/dL POC Glucose (mg/dL) 103 H (75-99) mg/dL Plasma Lactic Acid Satinder (0.7-2.0) mmol/L Calcium (8.4-10.2) mg/dL Magnesium (1.6-2.3) mg/dL Alkaline Phosphatase (38-126) U/L Total Protein (6.3-8.2) g/dL Albumin (3.5-5.0) g/dL Microbiology - Last 24 Hours (Table) 09/05/20 10:24 Blood Culture Gram Stain - Final Blood Blood Culture - Final Escherichia coli 09/05/20 10:23 Blood Culture Gram Stain - Final Blood Blood Culture - Final Escherichia coli 09/05/20 10:23 Urine Culture - Final Urine,Catheterized Escherichia coli 09/06/20 11:12 Blood Culture - Preliminary Blood No Growth after 24 hours 09/06/20 11:12 Blood Culture - Preliminary Blood No Growth after 24 hours Assessment and Plan Assessment: Acute hypoxic, and acute hypercapnic respiratory failure secondary to cardiac arrest secondary to sepsis and possible septic shock. Secondary to E. coli urinary tract infection and positive bacteremia. Bibasilar atelectasis, no clear-cut evidence of pneumonia. Chronic kidney disease, on hemodialysis. Patient has end-stage renal disease. Acute on chronic diastolic congestive heart failure History of aortic stenosis and previous TAVR. History of hypertension History of paroxysmal atrial fibrillation History of coronary artery disease and previous stent placement in LAD. As well as left circumflex Type 2 diabetes. History of GERD Dyslipidemia Obstructive sleep apnea syndrome on CPAP at night History of diabetes and diabetic neuropathy History of depression Hypovolemic hyponatremia Recommendation: Continue ventilatory support. However the patient will be given a trial today off sedation, and if she does well may even give her a weaning trial. Continue antibiotics as ordered by infectious disease. Repeat blood cultures Continue GI and DVT prophylaxis. Hemodynamic support with pressors if necessary. Presently off norepinephrine Continue sedation for now Continue enteral feeding/nutritional support. We'll continue to follow. Prognosis extremely poor and guarded. Critical care time is over 30 minutes. Time with Patient: Greater than 30
[2020-09-08 12:33] LABS: Glucose,Whole Blood 122 mg/dL (75-99)
[2020-09-08] MEDS: MIDODRINE 5 MG TAB PO PRN (13:12)
[2020-09-08] MEDS: ERTAPENEM 0.5 GM in SODIUM CHLORIDE 0.9% 50 ML IVPB SCH (15:32)
--- NOTE | 2020-09-08 16:14 | P.PN ---
Subjective Progress Note Date: 09/08/20 This is a 74-year-old female patient of Dr. Farias with past medical history of proximal atrial fibrillation, coronary artery disease status post AL, denies any history of COPD or asthma. Uses CPAP at home frequently. chronic diastolic heart failure, diabetes, hyperlipidemia, hypertension, hypertensive car diovascular disease, end-stage renal disease on hemodialysis Monday and Monday, aortic stenosis status post TAVR in 2017, with h/o multiple urinary tract infection treated by Dr Borrego who also did cystoscopy on 05/22 done for recurrent UIT followed by bactrim for klebsiella and ecoli uti on 06/07/2020. Patient's urinalysis multidrug-resistant tenderness difficult to treat as outpatient. Dr. Borrego was planning to send the patient can't afford if no improvement seen. She started feeling unwell on Monday and had a full prescription of doxycycline and home which she started taking. Patient took doxycycline for 2 days with no improvement in sensation and decided to come to ER. Patient does document fever and chills at home. She denies any abdominal pain, diarrhea or constipation. Vitals evaluated in the assisted temp of 101 pulse 84 respiratory rate 18 blood pressure 138/88. Labs refuses this today WBC of 18.8 hemoglobin 10.5 MCV 102 platelet 217, INR 1, sodium 1:30, potassium 5, chloride 86, BUN 59 creatinine 6.7 glucose 219 lactic acid 2.1 and liver enzymes are normal and alkaline phosphatase 134. Urinalysis positive for UTI with positive RBC 175 WBC 182 positive leukocyte esterase and negative nitrites. Chest x-ray suggestive of the stated infiltrate concern for atelectasis versus pneumonia. Repeat chest x-ray will be obtained tomorrow. Continue patient on cefepime 2 g every 8 hours. Patient has sepsis secondary to UTI. IV fluids can cannot be continued as patient is on dialysis and is due for her dialysis. 09/06 patient evaluated at bedside appears much confused than yesterday. His short of breath on evaluation. Patient did not get her dialysis yesterday. She is not answering to questions and repeating the phrase" everything is going oppo site"patient gets confused easily and is not able to answer suspension appropriate he is oriented 2. Nephrology is evaluated the patient and recommend dialysis today. Vitals checked this morning patient had a temp of 100.5 pulse rate 112 blood pressure 170/74 requiring 1-2 L of oxygen saturating at 94% on assessment patient's blood work today WBC has improved from 18-12.8 hemoglobin is 9.9, platelets 05[birth year]/1989 sodium has worsened from yesterday dropped to 127, potassium 5.3, chloride 84 bun is 74 creatinine 8.8, glucose 158 alkaline phosphatase is 133. Blood cultures are positive for gram-negative bacilli. Infectious disease consulted. Levofloxacin every 48 hours 500 mg IV Patient evaluated at bedside around 11 in the morning patient was doing well was lying in bed appears a little confused but was able to communicate without any difficulty. Discussed with patient the need for possible rehab which patient was reluctant about. At around 12:38 PM, CODE VIANNEY was called and the patient. He apparently patient was sleeping Herberger and found to choke on food. Patient lost her pulse and became unresponsive. The nurse bedside initiated the CODE BLUE. Patient received 1 dose of epinephrine and bicarb. Pulse was obtained at 12:40 PM. Patient got intubated at 1243 as was noted to be apneic. EKG was obtained that suggested wide-complex tachycardia. Vitals reviewed had a temp of 98, pulse 88 respiratory rate 18 was saturating at 98% on 3 L and currently on 100% FiO2 Blood gas was obtained. PH of 7.2 CO2 was 72 pO2 to 209. CMP this morning was pending, stat labs were ordered in the morning which resulted close to the CODE BLUE suggested sodium of 134 potassium 5.3 chloride 93 BUN 61 creatinine 7.44. Patient received dialysis yesterday. Patient to be moved to the ICU for further management. Pulmonary consulted. 1 g of calcium gluconate given. 1 g of mag sulfate given. Labs ordered currently pending. 09/08 patient currently intubated. On assist control respiratory rate 18 and tidal volume 450 FiO2 45% PEEP of 5. ABG this morning patient had a pH of 7.47 pCO2 improved to 35 from 70 to pO2 109 bicarb 3026. CBC suggestive hemoglobin of 9.6 and C-reactive 0.5. BNP Surgicel and 35 potassium 5 chloride 97, magnesium 2.8 BUN 67 creatinine 7.69. Chest x-ray reviewed suggest basilar atelectasis. Blood culture for 24 hours and negative for E. coli. Continue with Invanz per infectious disease. Family at bedside and updated the patient's condition Review of systems could not be obtained due to mental status Objective - Vital Signs Vital signs: Vital Signs Temp 99.9 F H 09/08/20 12:00 Pulse 67 09/08/20 15:00 Resp 18 09/08/20 15:00 BP 90/47 09/07/20 18:00 Pulse Ox 97 09/08/20 15:00 Intake & Output 09/07/20 09/08/20 09/08/20 18:59 06:59 18:59 Intake Total 1710 741.999 482.898 Output Total 6 50 45 Balance 1704 691.999 437.898 Weight 89.6 kg 89.6 kg Intake: IV 1060 220 180 0.9 NS 1060 220 180 Intake, IV Titration 250 521.999 302.898 Amount Calcium Gluconate 1 gm In 100 Sodium Chloride 0.9% 100 ml @ 100 mls/hr IVPB ONCE ONE Rx#:[id number] Ertapenem 0.5 gm In 50 50 Sodium Chloride 0.9% 50 ml @ 100 mls/hr IVPB DAILY@1500 [facility] Rx#: [id number] Magnesium Sulfate-D5w Pmx 100 1 gm In Dextrose/Water 1 100ml.bag @ 100 mls/hr IVPB ONCE ONE Rx#: [id number] Norepinephrine 4 mg In 214.000 12.362 Sodium Chloride 0.9% 250 ml @ 0.05 MCG/KG/MIN 15. 986 mls/hr IV .[id number] [facility] Rx#:[id number] propofoL 1,000 mg In 307.999 240.536 Empty Bag 1 bag @ Titrate IV .Q0M [facility] Rx#: [id number] Oral 400 Output: Urine 6 50 45 Other: Voiding Method Indwelling Catheter Indwelling Catheter Indwelling Catheter ABP, PAP, CO, CI - Last Documented Arterial Blood Pressure 141/33 - Exam - Constitutional General appearance: Intubated - EENT Eyes: anicteric sclerae, PERRLA, normal appearance ENT: hearing grossly normal - Neck Neck: no lymphadenopathy, normal ROM, no other, no rigidity, no stridor, no thyromegaly - Respiratory Respiratory: bilateral: Decreased air entry, wheezing noted on examination OG a nd ET tube in place - Cardiovascular Rhythm: regular Heart sounds: normal: S1, S2 Abnormal Heart Sounds: 3/6 systolic murmur, no diastolic murmur, no rub, no S3 Gallop, no S4 Gallop, no click, no other - Gastrointestinal General gastrointestinal: normal bowel sounds, soft nontender - Integumentary Integumentary: no rash - Neurologic Neurologic: Sedated - Musculoskeletal Musculoskeletal: gait not assessed, strength equal bilaterally - Psychiatric Psychiatric: currently sedated - Labs CBC & Chem 7: 09/08/20 05:05 09/08/20 05:05 Labs: Abnormal Lab Results - Last 24 Hours (Table) 09/07/20 09/07/20 09/07/20 Range/Units 18:24 20:31 23:54 WBC (3.8-10.6) k/uL RBC (3.80-5.40) m/uL Hgb (11.4-16.0) gm/dL Hct (34.0-46.0) % MCV (80.0-100.0) fL RDW (11.5-15.5) % ABG pH (7.35-7.45) ABG pO2 (83-108) mmHg ABG HCO3 (21-25) mmol/L ABG Total CO2 (19-24) mmol/L ABG O2 Saturation (94-97) % Sodium (137-145) mmol/L Chloride (98-107) mmol/L BUN (7-17) mg/dL Creatinine (0.52-1.04) mg/dL Glucose (74-99) mg/dL POC Glucose (mg/dL) 170 H 177 H 147 H (75-99) mg/dL Magnesium (1.6-2.3) mg/dL 09/08/20 09/08/20 09/08/20 Range/Units 05:05 05:05 05:08 WBC 12.3 H (3.8-10.6) k/uL RBC 2.87 L (3.80-5.40) m/uL Hgb 9.6 L D (11.4-16.0) gm/dL Hct 28.8 L (34.0-46.0) % MCV 100.5 H (80.0-100.0) fL RDW 16.2 H (11.5-15.5) % ABG pH 7.47 H (7.35-7.45) ABG pO2 109 H (83-108) mmHg ABG HCO3 26 H (21-25) mmol/L ABG Total CO2 27 H (19-24) mmol/L ABG O2 Saturation 97.4 H (94-97) % Sodium 135 L (137-145) mmol/L Chloride 97 L (98-107) mmol/L BUN 67 H (7-17) mg/dL Creatinine 7.69 H* (0.52-1.04) mg/dL Glucose 118 H (74-99) mg/dL POC Glucose (mg/dL) (75-99) mg/dL Magnesium 2.8 H (1.6-2.3) mg/dL 09/08/20 09/08/20 09/08/20 Range/Units 05:10 11:41 12:31 WBC (3.8-10.6) k/uL RBC (3.80-5.40) m/uL Hgb (11.4-16.0) gm/dL Hct (34.0-46.0) % MCV (80.0-100.0) fL RDW (11.5-15.5) % ABG pH (7.35-7.45) ABG pO2 (83-108) mmHg ABG HCO3 (21-25) mmol/L ABG Total CO2 (19-24) mmol/L ABG O2 Saturation (94-97) % Sodium (137-145) mmol/L Chloride (98-107) mmol/L BUN (7-17) mg/dL Creatinine (0.52-1.04) mg/dL Glucose (74-99) mg/dL POC Glucose (mg/dL) 128 H 103 H 122 H (75-99) mg/dL Magnesium (1.6-2.3) mg/dL Microbiology - Last 24 Hours (Table) 09/07/20 11:53 Blood Culture - Preliminary Blood No Growth after 24 hours 09/06/20 11:12 Blood Culture - Preliminary Blood No Growth after 48 hours 09/06/20 11:12 Blood Culture - Preliminary Blood No Growth after 48 hours 09/05/20 10:24 Blood Culture Gram Stain - Final Blood Blood Culture - Final Escherichia coli 09/05/20 10:23 Blood Culture Gram Stain - Final Blood Blood Culture - Final Escherichia coli 09/05/20 10:23 Urine Culture - Final Urine,Catheterized Escherichia coli Assessment and Plan Plan: 1. Sepsis secondary to UTI. Gram-negative bacteremia Continue levofloxacin 500 every 48 hours. Infectious disease consulted. dialysis today Urine culture is pending. Blood culture negative for 24 hours previous blood culture positive for E. coli 2. Bilateral pleural effusion, small posterior infiltrate consistent with atelectasis.. Pneumonia cannot be excluded repeat chest x-ray suggests mild volume overload 3 Cardiac arrest unresponsive with loss of pulse CODE BLUE called on 09/07. Secondary to choking on her food. Status was epinephrine and bicarb Initial rhythm on record placed. EKG with wide complex tachycardia. Status post calcium gluconate and 1 g of magnesium sulfate. 4. Acute hypoxic hypercapnic respiratory failure intubated during the CODE BLUE. Likely aspiration [employer] Referral Clerk consulted. ABG concerning for hypercapnic respiratory failure. Ventilatory setting per pulmonary. Chest x-ray stat ordered suggestive of CHF exacerbation. Lasix is switched to IV 80 twice a day. COVID 19 test ordered 5. White complex tachycardia baseline EKG with sinus rhythm with bifascicular lock. Avoid QT prolonging medication. Cardiology consulted. Hyperkalemia noted magnesium level not available. Status post one dose of calcium gluconate. 1 g magnesium. Repeat labs ordered. 6. Status post Recurrent UTI, status post cystoscopy, by Dr. Borrego, previous culture positive for E. coli and klebsiella during last cultureson chronic prophylactic antibiotics including nitrofurantoin and Mandelamine 4 Oliguria secondary to end-stage kidney disease, still making 400 mL per day, consult with nephrology, on hemodialysis Monday and Monday . roy catheter placed 5 End-stage renal disease on hemodialysis Monday and Monday, 6 acute on Chronic diastolic heart failure. Continue hemodialysis. Continue home dose of Lasix at 80 mg twice daily as well as metoprolol 50 mg Monday, and metolazone 5 mg twice a day. Lasix switched to IV twice a day 7 History of aortic stenosis status post TAVR. 8 Hypertension cardiovascular disease. Continue amiodarone 100 mg daily and metoprolol. 10 Paroxysmal atrial fibrillation. Continue amiodarone 100 mg once daily and metoprolol a history of GI bleed no past several years ago, not on any anticoagulation due to increased risk of fall and GI bleeding 11 History of myocardial infarction and coronary artery disease status post LAD stent in July 2017 and left circumflex in August 2017. Continue Toprol-XL 50 mg once daily, and Plavix 12 Diabetes mellitus type 2, insulin requiring. Continue insulin sliding scale. 13 GERD continue Protonix. 14 History of hyperlipidemia continue Zetia 10mg daily 15 Obstructive sleep apnea, on CPAP machine at night, along with O2 supplementation 16. Diabetic peripheral neuropathy continue gabapentin 300 mg twice daily. 17. Recurrent depression. Continue Cymbalta 60 mg orally once daily 18. Metabolic encephalopathy likely secondary to uremia and sepsis. Dialysis today 19 hyponatremia secondary to volume overload. Dialysis on Nephrology following the patient DVT prophylaxis. Heparin subcu every 12 GI prophylaxis continue Protonix. Prognosis poor
[2020-09-08 17:27] LABS: Glucose,Whole Blood 120 mg/dL (75-99)
--- NOTE | 2020-09-08 19:51 | XR ---
EXAMINATION TYPE: XR chest 1V portable DATE OF EXAM: 09/08/2020 COMPARISON: Today HISTORY: Tube placement TECHNIQUE: Single view FINDINGS: There is endotracheal tube 4 cm from the nicolás. Tube in good position. There is nasogastri c tube in the stomach. There is infiltrate at both lung bases with blunting of the costophrenic angle s. There is no obvious heart failure. IMPRESSION: Pleural effusions with basilar pulmonary infiltrates not significantly different than exa m this morning.
[2020-09-08 20:04] LABS: Glucose,Whole Blood 132 mg/dL (75-99)
[2020-09-09 00:23] LABS: Glucose,Whole Blood 110 mg/dL (75-99)
[2020-09-09] MEDS: INSULIN ASPART (NovoLOG) 100 UNIT/ML VIAL SQ SCH ×5 (00:28→23:57)
[2020-09-09 04:52] LABS: Glucose,Whole Blood 107 mg/dL (75-99)
[2020-09-09 04:54] LABS: ABG Base Excess -2.5 mmol/L; ABG HCO3 22 mmol/L (21-25); ABG Oxygen Saturation 98.4 % (94-97); ABG PCO2 37 mmHg (35-45); ABG PH 7.39 (7.35-7.45); ABG PO2 131 mmHg (83-108); ABG TCO2 24 mmol/L (19-24); Allen Test Performed? Yes
[2020-09-09 05:08] LABS: Anisocytosis Slight; HCT 26.8 % (34.0-46.0); HGB 8.7 gm/dL (11.4-16.0); Hypochromasia Slight; MCH 33.4 pg (25.0-35.0); MCHC 32.5 g/dL (31.0-37.0); MCV 102.9 fL (80.0-100.0); Macrocytosis Moderate; Mean Platelet Volume 9.2; Platelet Count 179 k/uL (150-450); RBC 2.61 m/uL (3.80-5.40); RDW 16.2 % (11.5-15.5); WBC 14.5 k/uL (3.8-10.6)
[2020-09-09 05:26] LABS: Calcium 8.9 mg/dL (8.4-10.2)
[2020-09-09] MEDS: SEVELAMER 800 MG TAB PO SCH (05:54)
[2020-09-09] MEDS: INSULIN DETEMIR (LEVEMIR) 100 UNIT/ML SYR SQ SCH ×2 (06:10→20:27)
[2020-09-09 06:20] LABS: Potassium 4.7 mmol/L (3.5-5.1)
--- NOTE | 2020-09-09 07:53 | XR ---
EXAMINATION TYPE: XR chest 1V portable DATE OF EXAM: 09/09/2020 COMPARISON: 09/08/2020 HISTORY: Tube placement TECHNIQUE: Single frontal view of the chest is obtained. FINDINGS: ET and NG tube stable. Postsurgical changes are seen vertebral, right upper quadrant. Post surgical changes overlying the cardiac silhouette. Interstitial pattern with bilateral infiltrate and small effusion. IMPRESSION: 1. Stable x-ray correlate for bilateral infiltrate with pleural effusion. Superimposed venous congest ion 4 interstitial pneumonitis. Correlate clinically.
[2020-09-09] MEDS: NOREPINEPHRINE 4 MG in SODIUM CHLORIDE 0.9% 250 ML IV SCH ×2 (08:13→16:35)
[2020-09-09] MEDS: CHLORHEXIDINE GLUCONATE 15 ML CUP MUCOUS MEM SCH ×2 (08:14→20:15)
[2020-09-09] MEDS: FUROSEMIDE 10 MG/ML 10 ML VIAL IV SCH ×2 (08:14→20:15)
[2020-09-09] MEDS: AMIODARONE 100 MG TAB PO SCH (08:14)
[2020-09-09] MEDS: DULoxetine HCL 60 MG CAPSULE.DR PO SCH (08:15)
[2020-09-09] MEDS: ASPIRIN 81 MG PO SCH (08:15)
[2020-09-09] MEDS: CLOPIDOGREL 75 MG TAB PO SCH (08:15)
[2020-09-09] MEDS: EZETIMIBE 10 MG TAB PO SCH (08:15)
[2020-09-09] MEDS: CHOLECALCIFEROL 25 MCG (1000 IU) TABLET PO SCH (08:15)
[2020-09-09] MEDS: MAGNESIUM OXIDE 400 MG TAB PO SCH (08:15)
[2020-09-09] MEDS: metOLazone 5 MG TAB PO SCH ×2 (08:16→20:30)
[2020-09-09] MEDS: METOPROLOL SUCCINATE (ER) 50 MG TAB.ER.24H PO SCH (08:16)
[2020-09-09] MEDS: PANTOPRAZOLE 40 MG TABLET PO SCH (08:16)
--- NOTE | 2020-09-09 10:31 | P.PN ---
Subjective Patient is seen in follow-up for end-stage renal disease. Patient had cardiac arrest and required short duration of CPR. She is currently intubated. Possible extubation today. Vital signs are stable. General: The patient appeared well nourished and normally developed. HEENT: Intubated. LUNGS: Breath sounds decreased. HEART: Rate and Rhythm are regular. ABDOMEN: Soft, obese. EXTREMITITES: Trace edema. Objective - Vital Signs Vital signs: Vital Signs Temp 99.6 F 09/09/20 08:00 Pulse 73 09/09/20 10:00 Resp 19 09/09/20 10:00 BP 155/38 09/08/20 16:08 Pulse Ox 98 09/09/20 10:00 Intake & Output 09/08/20 09/09/20 09/09/20 18:59 06:59 18:59 Intake Total 545.452 744.573 232.32 Output Total 1555 33 10 Balance -1009.548 711.573 222.32 Weight 89.6 kg 88 kg Intake: IV 240 240 80 0.9 NS 240 240 80 Intake, IV Titration 305.452 304.573 112.32 Amount Ertapenem 0.5 gm In 50 Sodium Chloride 0.9% 50 ml @ 100 mls/hr IVPB DAILY@1500 [facility] Rx#: [id number] Norepinephrine 4 mg In 12.362 25.232 Sodium Chloride 0.9% 250 ml @ 0.05 MCG/KG/MIN 15. 986 mls/hr IV .[id number] [facility] Rx#:[id number] propofoL 1,000 mg In 243.090 279.341 112.32 Empty Bag 1 bag @ Titrate IV .Q0M [facility] Rx#: [id number] Tube Feeding 110 10 Other 90 30 Output: Urine 55 33 10 Hemodialysis 1500 Other: Voiding Method Indwelling Catheter Indwelling Catheter Indwelling Catheter ABP, PAP, CO, CI - Last Documented Arterial Blood Pressure 142/40 - Labs CBC & Chem 7: 09/09/20 04:45 09/09/20 04:45 Labs: Abnormal Lab Results - Last 24 Hours (Table) 09/08/20 09/08/20 09/08/20 Range/Units 11:41 12:31 17:25 WBC (3.8-10.6) k/uL RBC (3.80-5.40) m/uL Hgb (11.4-16.0) gm/dL Hct (34.0-46.0) % MCV (80.0-100.0) fL RDW (11.5-15.5) % ABG pO2 (83-108) mmHg ABG O2 Saturation (94-97) % Chloride (98-107) mmol/L Carbon Dioxide (22-30) mmol/L BUN (7-17) mg/dL Creatinine (0.52-1.04) mg/dL Glucose (74-99) mg/dL POC Glucose (mg/dL) 103 H 122 H 120 H (75-99) mg/dL 09/08/20 09/09/20 09/09/20 Range/Units 20:03 00:21 04:45 WBC 14.5 H (3.8-10.6) k/uL RBC 2.61 L (3.80-5.40) m/uL Hgb 8.7 L (11.4-16.0) gm/dL Hct 26.8 L (34.0-46.0) % MCV 102.9 H (80.0-100.0) fL RDW 16.2 H (11.5-15.5) % ABG pO2 (83-108) mmHg ABG O2 Saturation (94-97) % Chloride (98-107) mmol/L Carbon Dioxide (22-30) mmol/L BUN (7-17) mg/dL Creatinine (0.52-1.04) mg/dL Glucose (74-99) mg/dL POC Glucose (mg/dL) 132 H 110 H (75-99) mg/dL 09/09/20 09/09/20 09/09/20 Range/Units 04:45 04:50 04:50 WBC (3.8-10.6) k/uL RBC (3.80-5.40) m/uL Hgb (11.4-16.0) gm/dL Hct (34.0-46.0) % MCV (80.0-100.0) fL RDW (11.5-15.5) % ABG pO2 131 H (83-108) mmHg ABG O2 Saturation 98.4 H (94-97) % Chloride 112 H (98-107) mmol/L Carbon Dioxide 20 L (22-30) mmol/L BUN 34 H (7-17) mg/dL Creatinine 5.01 H (0.52-1.04) mg/dL Glucose 107 H (74-99) mg/dL POC Glucose (mg/dL) 107 H (75-99) mg/dL Microbiology - Last 24 Hours (Table) 09/05/20 10:23 Blood Culture Gram Stain - Final Blood Blood Culture - Final Escherichia coli 09/08/20 19:16 Gram Stain - Preliminary Sputum Sputum Culture - Preliminary 09/07/20 11:53 Blood Culture - Preliminary Blood No Growth after 24 hours 09/06/20 11:12 Blood Culture - Preliminary Blood No Growth after 48 hours 09/06/20 11:12 Blood Culture - Preliminary Blood No Growth after 48 hours Assessment and Plan Plan: Assessment: 1. End-stage renal disease maintained on hemodialysis on Monday schedule. 2. E. coli bacteremia. Urine culture positive for E. coli. On antibiotics per infectious disease. 3. Hyponatremia secondary to chronic kidney disease. Improved. 4. Diabetes mellitus. 5. 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 6. Anemia of chronic kidney disease. Maintained on Aranesp. Avoid IV iron in the setting of bacteremia. 7. Status post cardiac arrest on September 07. ? Aspiration. Plan: Hemodialysis tomorrow. Antibiotics per infectious disease. Wean FiO2. Possible extubation today.
[2020-09-09 11:46] LABS: Glucose,Whole Blood 136 mg/dL (75-99)
--- NOTE | 2020-09-09 12:00 | ECHOF ---
Referral Reason:lv function s/p arrest MEASUREMENTS -------- HEIGHT: 157.5 cm WEIGHT: 89.4 kg BP: 149/40 AV maxP.29 mmHg AV meanP.50 mmHg RAP: 5.00 mmHg RVSP: 57.99 mmHg FINDINGS -------- Sinus rhythm. Limited Study Overall left ventricular systolic function is normal with, an EF between 60 - 65 %. 5 ml of Lumason was utilized for enhancement of images. The peak and mean MV gradients are 15.45mmHg 6.41mmHg as measured by doppler. Moderate mitral steno sis. Moderate tricuspid regurgitation present. There is severe pulmonary hypertension. The right ventr icular systolic pressure, as measured by Doppler, is 57.99mmHg. There is no pericardial effusion. CONCLUSIONS -------- 1. Limited Study 2. Overall left ventricular systolic function is normal with, an EF between 60 - 65 %. 3. 5 ml of Lumason was utilized for enhancement of images. 4. The peak and mean MV gradients are 15.45mmHg 6.41mmHg as measured by doppler. 5. Moderate mitral stenosis. 6. Moderate tricuspid regurgitation present. 7. There is severe pulmonary hypertension. 8. The right ventricular systolic pressure, as measured by Doppler, is 57.99mmHg. 9. There is no pericardial effusion. [employer]AD [employer] J2EE DEVELOPER: Elisa Villaseñor RDCS
--- NOTE | 2020-09-09 12:23 | PN ---
PROGRESS NOTE DATE OF SERVICE: 09/09/2020 REASON FOR FOLLOWUP: Urinary tract infection with bacteremia. INTERVAL HISTORY: Patient remains to be afebrile. The patient remains to be intubated on the vent. FiO2 is currently 45%. Hemodynamically stable. Not on pressor support. No significant change reported. PHYSICAL EXAMINATION: Blood pressure 142/40 with a pulse of 73, temperature 99.6. She is 98% on 45% FiO2. General description is an elderly female lying in bed in no distress. Respiratory system: Unlabored breathing, Clear to auscultation anteriorly. Heart S1, S2. Regular rate. ABDOMEN: Soft. No tenderness. LABS: Hemoglobin is 8.1, white count 14.5. BUN of 34, creatinine 5.01. Blood culture repeat so far negative. DIAGNOSTIC IMPRESSION AND PLAN: Patient with E coli bacteremia, more likely urine sources, both origins not the same. The patient is covered with Invanz because of her MULTIPLE ALLERGIES to continue while monitoring clinical course closely. Continue supportive care. MMODL / IJN: [id number] /
--- NOTE | 2020-09-09 13:20 | P.PN ---
Subjective This is a 74-year-old female patient of Dr. Farias with past medical history of proximal atrial fibrillation, coronary artery disease status post SC, denies any history of COPD or asthma. Uses CPAP at home frequently. chronic diastolic heart failure, diabetes, hyperlipidemia, hypertension, hypertensive cardiovascular disease, end-stage renal disease on hemodialysis Monday and Monday, aortic stenosis status post TAVR in 2018, with h/o multiple urinary tract infection treated by Dr Borrego who also did cystoscopy on 05/22 done for recurrent UIT followed by bactrim for klebsiella and ecoli uti on 06/07/2020. Patient's urinalysis multidrug-resistant tenderness difficult to treat as outpatient. Dr. Borrego was planning to send the patient can't afford if no improvement seen. She started feeling unwell on Monday and had a full pre scription of doxycycline and home which she started taking. Patient took doxycycline for 2 days with no improvement in sensation and decided to come to ER. Patient does document fever and chills at home. She denies any abdominal pain, diarrhea or constipation. Vitals evaluated in the assisted temp of 101 pulse 84 respiratory rate 18 blood pressure 138/88. Labs refuses this today WBC of 18.8 hemoglobin 10.5 MCV 102 platelet 217, INR 1, sodium 1:30, potassium 5, chloride 86, BUN 59 creatinine 6.7 glucose 219 lactic acid 2.1 and liver enzymes are normal and alkaline phosphatase 134. Urinalysis positive for UTI with positive RBC 175 WBC 182 positive leukocyte esterase and negative nitrites. Chest x-ray suggestive of the stated infiltrate concern for atelectasis versus pneumonia. Repeat chest x-ray will be obtained tomorrow. Continue patient on cefepime 2 g every 8 hours. Patient has sepsis secondary to UTI. IV fluids can cannot be continued as patient is on dialysis and is due for her dialysis. 09/06 patient evaluated at bedside appears much confused than yesterday. His shor t of breath on evaluation. Patient did not get her dialysis yesterday. She is not answering to questions and repeating the phrase" everything is going opposite"patient gets confused easily and is not able to answer suspension appropriate he is oriented 2. Nephrology is evaluated the patient and recommend dialysis today. Vitals checked this morning patient had a temp of 100.5 pulse rate 112 blood pressure 170/74 requiring 1-2 L of oxygen saturating at 94% on assessment patient's blood work today WBC has improved from 18-12.8 hemoglobin is 9.9, platelets 05/[birth year]/1989 sodium has worsened from yesterday dropped to 127, potassium 5.3, chloride 84 bun is 74 creatinine 8.8, glucose 158 alkaline phosphatase is 133. Blood cultures are positive for gram-negative bacilli. Infectious disease consulted. Levofloxacin every 48 hours 500 mg IV Patient evaluated at bedside around 11 in the morning patient was doing well was lying in bed appears a little confused but was able to communicate without any difficulty. Discussed with patient the need for possible rehab which patient was reluctant about. At around 12:38 PM, CODE VIANNEY was called and the patient. He apparently patient was sleeping Herberger and found to choke on food. Patient lost her pulse and became unresponsive. The nurse bedside initiated the CODE BLUE. Patient received 1 dose of epinephrine and bicarb. Pulse was obtained at 12:40 PM. Patient got intubated at 1243 as was noted to be apneic. EKG was obtained that suggested wide-complex tachycardia. Vitals reviewed had a temp of 98, pulse 88 respiratory rate 18 was saturating at 98% on 3 L and currently on 100% FiO2 Blood gas was obtained. PH of 7.2 CO2 was 72 pO2 to 209. CMP this morning was pending, stat labs were ordered in the morning which resulted close to the CODE BLUE suggested sodium of 134 potassium 5.3 chloride 93 BUN 61 creatinine 7.44. Patient received dialysis yesterday. Patient to be moved to the ICU for further management. Pulmonary consulted. 1 g of calcium gluconate given. 1 g of mag sulfate given. Labs ordered currently pending. 09/08 patient currently intubated. On assist control respiratory rate 18 and tidal volume 450 FiO2 45% PEEP of 5. ABG this morning patient had a pH of 7.47 pCO2 improved to 35 from 70 to pO2 109 bicarb 3026. CBC suggestive hemoglobin of 9.6 and C-reactive 0.5. BNP Surgicel and 35 potassium 5 chloride 97, magnesium 2.8 BUN 67 creatinine 7.69. Chest x-ray reviewed suggest basilar at electasis. Blood culture for 24 hours and negative for E. coli. Continue with Invanz per infectious disease. Family at bedside and updated the patient's condition 09/09: Patient evaluated today in the ICU. Still currently intubated. Continues on assist control respiratory rate 18, tidal volume 450, FiO2 45% with a PEEP of 5. ABG today with a pH of 7.39, pCO2 37, pO2 131. Hemoglobin noted to drop slightly to 8.7 today, WBC 14.5, creatinine 5.0, BUN 34, potassium 4.7. Repeat chest x-ray shows stable x-ray, bilateral infiltrate with pleural effusion superimposed venous congestion. Patient noted to have no urine output, she continues on hemodialysis three times a week. Continues on Invanz per infectious diseases recommendations. The cultures show no growth to date. Patient is off propofol, plan to extubate possibly tomorrow. Objective - Vital Signs Vital signs: Vital Signs Temp 100.3 F H 09/09/20 12:00 Pulse 71 09/09/20 12:00 Resp 18 09/09/20 12:00 BP 155/38 09/08/20 16:08 Pulse Ox 98 09/09/20 12:00 Intake & Output 09/08/20 09/09/20 09/09/20 18:59 06:59 18:59 Intake Total 545.452 744.573 272.32 Output Total 1555 33 15 Balance -1009.548 711.573 257.32 Weight 89.6 kg 88 kg Intake: IV 240 240 120 0.9 NS 240 240 120 Intake, IV Titration 305.452 304.573 112.32 Amount Ertapenem 0.5 gm In 50 Sodium Chloride 0.9% 50 ml @ 100 mls/hr IVPB DAILY@1500 JONEL Rx#: [id number] Norepinephrine 4 mg In 12.362 25.232 Sodium Chloride 0.9% 250 ml @ 0.05 MCG/KG/MIN 15. 986 mls/hr IV .[id number] JONEL Rx#:[id number] propofoL 1,000 mg In 243.090 279.341 112.32 Empty Bag 1 bag @ Titrate IV .Q0M JONEL Rx#: [id number] Tube Feeding 110 10 Other 90 30 Output: Urine 55 33 15 Hemodialysis 1500 Other: Voiding Method Indwelling Catheter Indwelling Catheter Indwelling Catheter ABP, PAP, CO, CI - Last Documented Arterial Blood Pressure 143/38 - Exam - Constitutional General appearance: Intubated, sedated - EENT Eyes: anicteric sclerae, PERRLA, normal appearance ENT: hearing grossly normal - Neck Neck: no lymphadenopathy, normal ROM, no other, no rigidity, no stridor, no thyromegaly - Respiratory Respiratory: bilateral: Decreased air entry, wheezing noted on examination OG and ET tube in place - Cardiovascular Rhythm: regular Heart sounds: normal: S1, S2 Abnormal Heart Sounds: 3/6 systolic murmur, no diastolic murmur, no rub, no S3 Gallop, no S4 Gallop, no click - Gastrointestinal General gastrointestinal: normal bowel sounds, soft nontender - Integumentary Integumentary: no rash - Neurologic Neurologic: Sedated - Musculoskeletal Musculoskeletal: gait not assessed, strength equal bilaterally - Psychiatric Psychiatric: currently sedated - Labs CBC & Chem 7: 09/09/20 04:45 09/09/20 04:45 Labs: Abnormal Lab Results - Last 24 Hours (Table) 09/08/20 09/08/20 09/09/20 Range/Units 17:25 20:03 00:21 WBC (3.8-10.6) k/uL RBC (3.80-5.40) m/uL Hgb (11.4-16.0) gm/dL Hct (34.0-46.0) % MCV (80.0-100.0) fL RDW (11.5-15.5) % ABG pO2 (83-108) mmHg ABG O2 Saturation (94-97) % Chloride (98-107) mmol/L Carbon Dioxide (22-30) mmol/L BUN (7-17) mg/dL Creatinine (0.52-1.04) mg/dL Glucose (74-99) mg/dL POC Glucose (mg/dL) 120 H 132 H 110 H (75-99) mg/dL 09/09/20 09/09/20 09/09/20 Range/Units 04:45 04:45 04:50 WBC 14.5 H (3.8-10.6) k/uL RBC 2.61 L (3.80-5.40) m/uL Hgb 8.7 L (11.4-16.0) gm/dL Hct 26.8 L (34.0-46.0) % MCV 102.9 H (80.0-100.0) fL RDW 16.2 H (11.5-15.5) % ABG pO2 131 H (83-108) mmHg ABG O2 Saturation 98.4 H (94-97) % Chloride 112 H (98-107) mmol/L Carbon Dioxide 20 L (22-30) mmol/L BUN 34 H (7-17) mg/dL Creatinine 5.01 H (0.52-1.04) mg/dL Glucose 107 H (74-99) mg/dL POC Glucose (mg/dL) (75-99) mg/dL 09/09/20 09/09/20 Range/Units 04:50 11:44 WBC (3.8-10.6) k/uL RBC (3.80-5.40) m/uL Hgb (11.4-16.0) gm/dL Hct (34.0-46.0) % MCV (80.0-100.0) fL RDW (11.5-15.5) % ABG pO2 (83-108) mmHg ABG O2 Saturation (94-97) % Chloride (98-107) mmol/L Carbon Dioxide (22-30) mmol/L BUN (7-17) mg/dL Creatinine (0.52-1.04) mg/dL Glucose (74-99) mg/dL POC Glucose (mg/dL) 107 H 136 H (75-99) mg/dL Microbiology - Last 24 Hours (Table) 09/05/20 10:23 Blood Culture Gram Stain - Final Blood Blood Culture - Final Escherichia coli 09/08/20 19:16 Gram Stain - Preliminary Sputum Sputum Culture - Preliminary 09/07/20 11:53 Blood Culture - Preliminary Blood No Growth after 24 hours 09/06/20 11:12 Blood Culture - Preliminary Blood No Growth after 48 hours 09/06/20 11:12 Blood Culture - Preliminary Blood No Growth after 48 hours Assessment and Plan Plan: 1. Sepsis secondary to UTI. Gram-negative bacteremia Continue Ertapenem per infectious disease's recommendatins. Blood culture negative for 24 hours previo us blood culture positive for E. coli, continue with dialysis 2. Bilateral pleural effusion, small posterior infiltrate consistent with atelectasis.. Pneumonia cannot be excluded repeat chest x-ray suggests mild volume overload. 3 Cardiac arrest unresponsive with loss of pulse CODE BLUE called on 09/07. Secondary to choking on her food. Status was epinephrine and bicarb Initial rhythm on record placed. EKG with wide complex tachycardia. Status post calcium gluconate and 1 g of magnesium sulfate. 4. Acute hypoxic hypercapnic respiratory failure intubated during the CODE BLUE. Likely aspiration Gig Tender consulted. ABG concerning for hypercapnic respiratory failure. Ventilatory setting per pulmonary. Chest x-ray stat ordered suggestive of CHF exacerbation. Lasix is switched to IV 80 twice a day. COVID 19 test ordered 5. White complex tachycardia baseline EKG with sinus rhythm with bifascicular lock. Avoid QT prolonging medication. Cardiology consulted. Hyperkalemia noted magnesium level not available. Status post one dose of calcium gluconate. 1 g magnesium. Repeat labs ordered. 6. Status post Recurrent UTI, status post cystoscopy, by Dr. Borrego, previous culture positive for E. coli and klebsiella during last cultures chronic prophylactic antibiotics including nitrofurantoin and Mandelamine 4 Oliguria secondary to end-stage kidney disease, making less then 20 mL per day, consult with nephrology, on hemodialysis Monday and Monday . roy catheter in place 5 End-stage renal disease on hemodialysis Monday and Monday. 6 acute on Chronic diastolic heart failure. Continue hemodialysis. Continue home dose of Lasix at 80 mg twice daily as well as metoprolol 50 mg Monday, and metolazone 5 mg twice a day. Lasix switched to IV twice a day 7 History of aortic stenosis status post TAVR. 8 Hypertension cardiovascular disease. Continue amiodarone 100 mg daily and metoprolol. 10 Paroxysmal atrial fibrillation. Continue amiodarone 100 mg once daily and metoprolol a history of GI bleed no past several years ago, not on any anticoagulation due to increased risk of fall and GI bleeding 11 History of myocardial infarction and coronary artery disease status post LAD stent in July 2017 and left circumflex in August 2017. Continue Toprol-XL 50 mg once daily, and Plavix 12 Diabetes mellitus type 2, insulin requiring. Continue insulin sliding scale. 13 GERD continue Protonix. 14 History of hyperlipidemia continue Zetia 10mg daily 15 Obstructive sleep apnea, on CPAP machine at night, along with O2 supplementation 16. Diabetic peripheral neuropathy continue gabapentin 300 mg twice daily. 17. Recurrent depression. Continue Cymbalta 60 mg orally once daily 18. Metabolic encephalopathy likely secondary to uremia and sepsis. on Dialysis 19 hyponatremia secondary to volume overload. Dialysis on Nephrology following the patient DVT prophylaxis. Heparin subcu every 12 hours GI prophylaxis continue Protonix. The above impression and plan of care have been discussed and directed by signing physician. Jossie Negron nurse practitioner acting as scribe for signing physician.
--- NOTE | 2020-09-09 13:29 | P.PN ---
Subjective Progress Note Date: 09/09/20 Principal diagnosis: Cardiac arrest This is a 74-year-old female primarily a patient of Dr. Farias, known history of multiple medical problems including chronic atrial fibrillation, mostly paroxysmal in nature, coronary artery disease, previous [place], history of obstructive sleep apnea on CPAP at home, history of end-stage renal disease on hemodialysis history of aortic stenosis and previous T aVR in 2018. History of multiple urinary tract infections. Patient was admitted on 09/05/2020, her admitting diagnosis was sepsis secondary to urinary tract infection and patient was seen by infectious disease on consultation. Has been on proper antibiotics. Patient has been on Invanz, and she was being followed by many consultants on the case. Initially, the patient was on cefepime but this was later changed to Invanz. And she had multiple positive blood cultures for E. coli. At any rate patient was on the medical floor today, and around 1: 19, patient had a CODE BLUE. CPR was started, apparently patient was feeding at the time she had CODE BLUE. Questionable choking on her hamburger. Patient had no pulse, and went unresponsive. Spontaneous circulation was noted after 1 round of CPR and she was having episodes of apnea. Patient was intubated by ELECTRON BEAM WELDER, 12-lead EKG at the time showed sinus tachycardia without any ischemic changes. Patient was eventually placed on mechanical ventilation, and she was transferred to the ICU. I saw the patient shortly after she arrived to the ICU, and reviewed her ABG also reviewed her chest x-ray. Her chest x-ray showed endotracheal tube about 4.8 cm from the level of the nicolás. There was no evidence of infiltrate, minimal atelectasis is noted. ABG showed a pO2 of 219 pCO2 of 72 pH of 7.22, hence her ventilator settings were adjusted by increasing her assist control rate of mechanical ventilation, and drop down her FiO2 to 50%. Repeat ABG is pending. Labs were basically unremarkable except for BUN of 51 creatinine of 5.58, remind you patient is known to have history of chronic renal failure and on hemodialysis. Lactic acid was noted to be at 2.2 and her watson virus PCR was negative. Patient initial complaint on admission was mostly symptoms of weakness with symptoms of urinary tract infection and her initial blood cultures and urine cultures were positive for E. coli. Looking at the chart, patient received 1 dose of epinephrine and 1 amp of bicarb patient was actually intubated at 1243, EKG showed wide complex tachycardia after return of spontaneous circulation. Last dialysis on this patient was yesterday. Patient was reevaluated today on 09/08/2020, remains in the ICU, intubated and mechanically ventilated. Her assist control rate is 18 tidal volume 450 FiO2 45% PEEP of 5 ABG showed a pO2 of 109 pCO2 of 35 pH of 7.47. Patient is on propofol at 30 mcg/kg/m she is off norepinephrine and her IV fluid at KVO. Patient remains on Invanz for her E. coli urinary tract infection and bacteremia. Chest x-ray showed basilar atelectasis, difficult to rule out pneumonia, and she does have some interstitial edema. WBC count today is 12.3 hemoglobin is 9.6. Electrolytes are normal however her BUN is 67 creatinine 7.69 Patient was reevaluated today on 09/09/2020, remains intubated and mechanically ventilated, remains in the ICU. She is on assist control rate of 18 tidal volume 450 FiO2 45% PEEP of 5 ABG showed a pO2 of 131 pCO2 of 37 pH of 7.39. Remains on propofol at 55 mcg/kg/m, not requiring any pressors, not requiring any paralytics. Patient had slow weaning yesterday, however she was getting a bit agitated while on mechanical ventilation, did not get a chance to give her a weaning trial, hence we'll try to do that today. My plan is to hold propofol, assess weaning parameters, possibly placed the patient on pressure support of 8 and CPAP, and if tolerated will proceed with extubating the patient. Chest x- ray shows minimal infiltrates especially at the right base. Patient is empirically on antibiotics. WBC count is 14.5 hemoglobin is 8.7 and lites are normal BUN is 34 creatinine 5.01 Objective - Vital Signs Vital signs: Vital Signs Temp 100.3 F H 09/09/20 12:00 Pulse 71 09/09/20 12:00 Resp 18 09/09/20 12:00 BP 155/38 09/08/20 16:08 Pulse Ox 98 09/09/20 12:00 Intake & Output 09/08/20 09/09/20 09/09/20 18:59 06:59 18:59 Intake Total 545.452 744.573 272.32 Output Total 1555 33 15 Balance -1009.548 711.573 257.32 Weight 89.6 kg 88 kg Intake: IV 240 240 120 0.9 NS 240 240 120 Intake, IV Titration 305.452 304.573 112.32 Amount Ertapenem 0.5 gm In 50 Sodium Chloride 0.9% 50 ml @ 100 mls/hr IVPB DAILY@1500 JONEL Rx#: [id number] Norepinephrine 4 mg In 12.362 25.232 Sodium Chloride 0.9% 250 ml @ 0.05 MCG/KG/MIN 15. 986 mls/hr IV .[id number] JONEL Rx#:[id number] propofoL 1,000 mg In 243.090 279.341 112.32 Empty Bag 1 bag @ Titrate IV .Q0M JONEL Rx#: [id number] Tube Feeding 110 10 Other 90 30 Output: Urine 55 33 15 Hemodialysis 1500 Other: Voiding Method Indwelling Catheter Indwelling Catheter Indwelling Catheter ABP, PAP, CO, CI - Last Documented Arterial Blood Pressure 143/38 - Exam Physical Exam: Revealed 74-year-old female intubated and mechanically ventilated, sedated, on propofol. Head: Atraumatic, normocephalic. HEENT:[Neck is supple.] [No neck masses.] [No thyromegaly.] [No JVD.] PERRLA, EOMI, nonicteric. No neck masses, no JVD, no stridor. Chest: [Her metrical chest expansion, minimal crackles at the bases. Cardiac Exam: [Normal S1 and S2, no S3 gallop, 3/6 systolic murmur thought the precordium. Abdomen: [Soft, nontender, no megaly, no rebound, no guarding, normal bowel sounds.] Extremities: [No clubbing, no edema, no cyanosis.] AV fistula noted in the left arm. Midline is noted in the right arm. Neurological Exam: Cannot be assessed, patient is sedated, and mechanically ventilated Psychiatric: Could not assess. - Labs CBC & Chem 7: 09/09/20 04:45 09/09/20 04:45 Labs: Abnormal Lab Results - Last 24 Hours (Table) 09/08/20 09/08/20 09/09/20 Range/Units 17:25 20:03 00:21 WBC (3.8-10.6) k/uL RBC (3.80-5.40) m/uL Hgb (11.4-16.0) gm/dL Hct (34.0-46.0) % MCV (80.0-100.0) fL RDW (11.5-15.5) % ABG pO2 (83-108) mmHg ABG O2 Saturation (94-97) % Chloride (98-107) mmol/L Carbon Dioxide (22-30) mmol/L BUN (7-17) mg/dL Creatinine (0.52-1.04) mg/dL Glucose (74-99) mg/dL POC Glucose (mg/dL) 120 H 132 H 110 H (75-99) mg/dL 09/09/20 09/09/20 09/09/20 Range/Units 04:45 04:45 04:50 WBC 14.5 H (3.8-10.6) k/uL RBC 2.61 L (3.80-5.40) m/uL Hgb 8.7 L (11.4-16.0) gm/dL Hct 26.8 L (34.0-46.0) % MCV 102.9 H (80.0-100.0) fL RDW 16.2 H (11.5-15.5) % ABG pO2 131 H (83-108) mmHg ABG O2 Saturation 98.4 H (94-97) % Chloride 112 H (98-107) mmol/L Carbon Dioxide 20 L (22-30) mmol/L BUN 34 H (7-17) mg/dL Creatinine 5.01 H (0.52-1.04) mg/dL Glucose 107 H (74-99) mg/dL POC Glucose (mg/dL) (75-99) mg/dL 09/09/20 09/09/20 Range/Units 04:50 11:44 WBC (3.8-10.6) k/uL RBC (3.80-5.40) m/uL Hgb (11.4-16.0) gm/dL Hct (34.0-46.0) % MCV (80.0-100.0) fL RDW (11.5-15.5) % ABG pO2 (83-108) mmHg ABG O2 Saturation (94-97) % Chloride (98-107) mmol/L Carbon Dioxide (22-30) mmol/L BUN (7-17) mg/dL Creatinine (0.52-1.04) mg/dL Glucose (74-99) mg/dL POC Glucose (mg/dL) 107 H 136 H (75-99) mg/dL Microbiology - Last 24 Hours (Table) 09/06/20 11:12 Blood Culture - Preliminary Blood No Growth after 72 hours 09/06/20 11:12 Blood Culture - Preliminary Blood No Growth after 72 hours 09/05/20 10:23 Blood Culture Gram Stain - Final Blood Blood Culture - Final Escherichia coli 09/08/20 19:16 Gram Stain - Preliminary Sputum Sputum Culture - Preliminary 09/07/20 11:53 Blood Culture - Preliminary Blood No Growth after 24 hours Assessment and Plan Assessment: Acute hypoxic, and acute hypercapnic respiratory failure secondary to cardiac arrest secondary to sepsis and possible septic shock. Secondary to E. coli urinary tract infection and positive bacteremia. Bibasilar atelectasis, possible aspiration pneumonia. Chronic kidney disease, on hemodialysis. Patient has end-stage renal disease. Acute on chronic diastolic congestive heart failure History of aortic stenosis and previous TAVR. History of hypertension History of paroxysmal atrial fibrillation History of coronary artery disease and previous stent placement in LAD. As well as left circumflex Type 2 diabetes. History of GERD Dyslipidemia Obstructive sleep apnea syndrome on CPAP at night History of diabetes and diabetic neuropathy History of depression Hypovolemic hyponatremia Recommendation: Will give the patient today another trial of weaning with pressure support and CPAP, and the meantime we will hold propofol. Continue antibiotics for her bacteremia and urinary tract infection secondary to E. coli. Repeat blood cultures Continue GI and DVT prophylaxis. Hemodynamic support with pressors if necessary. Presently off norepinephrine Hold sedation and assessment of status assess weaning parameters. Continue enteral feeding/nutritional support. We'll hope to wean and extubate today if possible. Prognosis extremely poor and guarded. Critical care time is over 30 minutes. Time with Patient: Greater than 30
[2020-09-09] MEDS: ERTAPENEM 0.5 GM in SODIUM CHLORIDE 0.9% 50 ML IVPB SCH (15:04)
[2020-09-09 17:44] LABS: Glucose,Whole Blood 98 mg/dL (75-99)
[2020-09-09 20:21] LABS: Glucose,Whole Blood 94 mg/dL (75-99)
[2020-09-09 23:37] LABS: Glucose,Whole Blood 78 mg/dL (75-99)
[2020-09-10 02:14] LABS: Glucose,Whole Blood 77 mg/dL (75-99)
[2020-09-10 05:05] LABS: Glucose,Whole Blood 75 mg/dL (75-99)
[2020-09-10 05:16] LABS: Anisocytosis Slight; HCT 26.2 % (34.0-46.0); HGB 8.2 gm/dL (11.4-16.0); Hypochromasia Moderate; MCH 32.4 pg (25.0-35.0); MCHC 31.2 g/dL (31.0-37.0); MCV 103.7 fL (80.0-100.0); Macrocytosis Moderate; Mean Platelet Volume 9.6; Platelet Count 208 k/uL (150-450); RBC 2.52 m/uL (3.80-5.40); RDW 16.7 % (11.5-15.5); WBC 14.5 k/uL (3.8-10.6)
[2020-09-10] MEDS: INSULIN ASPART (NovoLOG) 100 UNIT/ML VIAL SQ SCH ×4 (05:17→23:47)
[2020-09-10] MEDS: SEVELAMER 800 MG TAB PO SCH (05:17)
[2020-09-10] MEDS: INSULIN DETEMIR (LEVEMIR) 100 UNIT/ML SYR SQ SCH ×2 (05:17→19:46)
[2020-09-10 05:38] LABS: ABG Base Excess -4.6 mmol/L; ABG HCO3 21 mmol/L (21-25); ABG Oxygen Saturation 98.5 % (94-97); ABG PCO2 36 mmHg (35-45); ABG PH 7.37 (7.35-7.45); ABG PO2 145 mmHg (83-108); ABG TCO2 22 mmol/L (19-24)
[2020-09-10 06:37] LABS: Calcium 8.9 mg/dL (8.4-10.2); Potassium 4.9 mmol/L (3.5-5.1)
--- NOTE | 2020-09-10 06:55 | XR ---
EXAMINATION TYPE: XR chest 1V portable DATE OF EXAM: 09/10/2020 COMPARISON: 09/09/2020 HISTORY: Shortness of breath TECHNIQUE: Single frontal view of the chest is obtained. FINDINGS: Scintigraphic overlying the heart, endotracheal tube, and nasogastric tube are in stable p osition. There is slightly increased interstitial markings. Lung volumes diminished. There may be bibasilar at electasis and small pleural effusions. Lung volumes are slightly diminished compared to prior examina tion.. No pneumothorax. Heart and mediastinum appear prominent as seen before. Posterior spinal fusion is ag ain noted. IMPRESSION: Slightly decreased lung volume. Bibasilar atelectasis/consolidation/small pleural effusi ons.
[2020-09-10] MEDS: NOREPINEPHRINE 4 MG in SODIUM CHLORIDE 0.9% 250 ML IV SCH ×2 (07:44→22:38)
[2020-09-10] MEDS: ASPIRIN 81 MG PO SCH ×2 (07:51→12:34)
[2020-09-10] MEDS: CHLORHEXIDINE GLUCONATE 15 ML CUP MUCOUS MEM SCH ×2 (07:51→19:47)
[2020-09-10] MEDS: CLOPIDOGREL 75 MG TAB PO SCH ×2 (07:54→12:34)
[2020-09-10] MEDS: CHOLECALCIFEROL 25 MCG (1000 IU) TABLET PO SCH (07:54)
[2020-09-10] MEDS: FUROSEMIDE 10 MG/ML 10 ML VIAL IV SCH ×2 (07:55→12:35)
[2020-09-10] MEDS: DULoxetine HCL 60 MG CAPSULE.DR PO SCH (07:55)
[2020-09-10] MEDS: MAGNESIUM OXIDE 400 MG TAB PO SCH (07:55)
[2020-09-10] MEDS: PANTOPRAZOLE 40 MG/10 ML VIAL IVP SCH ×2 (07:56→12:35)
[2020-09-10] MEDS: metOLazone 5 MG TAB PO SCH (07:56)
[2020-09-10] MEDS: EZETIMIBE 10 MG TAB PO SCH (07:56)
[2020-09-10] MEDS: METOPROLOL SUCCINATE (ER) 50 MG TAB.ER.24H PO SCH ×2 (07:56→12:34)
[2020-09-10] MEDS: AMIODARONE 100 MG TAB PO SCH (07:57)
--- NOTE | 2020-09-10 10:34 | P.PN ---
Subjective Patient is seen in follow-up for end-stage renal disease. Patient had cardiac arrest and required short duration of CPR. She is currently intubated. Off sedation. Tolerating dialysis well. Vital signs are stable. General: The patient appeared well nourished and normally developed. HEENT: Intubated. LUNGS: Breath sounds decreased. HEART: Rate and Rhythm are regular. ABDOMEN: Soft, obese. EXTREMITITES: Trace edema. Objective - Vital Signs Vital signs: Vital Signs Temp 98.8 F 09/10/20 08:00 Pulse 73 09/10/20 10:00 Resp 21 09/10/20 10:00 BP 155/38 09/08/20 16:08 Pulse Ox 100 09/10/20 10:00 Intake & Output 09/09/20 09/10/20 09/10/20 18:59 06:59 18:59 Intake Total 442.32 240 80 Output Total 45 15 20 Balance 397.32 225 60 Weight 89.4 kg Intake: IV 240 240 80 0.9 NS 240 240 80 Intake, IV Titration 162.32 Amount Ertapenem 0.5 gm In 50 Sodium Chloride 0.9% 50 ml @ 100 mls/hr IVPB DAILY@1500 [facility] Rx#: [id number] propofoL 1,000 mg In 112.32 Empty Bag 1 bag @ Titrate IV .Q0M [facility] Rx#: [id number] Tube Feeding 10 0 Other 30 Output: Urine 45 15 20 Other: Voiding Method Indwelling Catheter Indwelling Catheter ABP, PAP, CO, CI - Last Documented Arterial Blood Pressure 142/43 - Labs CBC & Chem 7: 09/10/20 05:00 09/10/20 05:00 Labs: Abnormal Lab Results - Last 24 Hours (Table) 09/09/20 09/10/20 09/10/20 Range/Units 11:44 05:00 05:00 WBC 14.5 H (3.8-10.6) k/uL RBC 2.52 L (3.80-5.40) m/uL Hgb 8.2 L (11.4-16.0) gm/dL Hct 26.2 L (34.0-46.0) % MCV 103.7 H (80.0-100.0) fL RDW 16.7 H (11.5-15.5) % ABG pO2 (83-108) mmHg ABG O2 Saturation (94-97) % Chloride 113 H (98-107) mmol/L Carbon Dioxide 19 L (22-30) mmol/L BUN 47 H (7-17) mg/dL Creatinine 6.81 H (0.52-1.04) mg/dL POC Glucose (mg/dL) 136 H (75-99) mg/dL 09/10/20 Range/Units 05:33 WBC (3.8-10.6) k/uL RBC (3.80-5.40) m/uL Hgb (11.4-16.0) gm/dL Hct (34.0-46.0) % MCV (80.0-100.0) fL RDW (11.5-15.5) % ABG pO2 145 H (83-108) mmHg ABG O2 Saturation 98.5 H (94-97) % Chloride (98-107) mmol/L Carbon Dioxide (22-30) mmol/L BUN (7-17) mg/dL Creatinine (0.52-1.04) mg/dL POC Glucose (mg/dL) (75-99) mg/dL Microbiology - Last 24 Hours (Table) 09/07/20 11:53 Blood Culture - Preliminary Blood No Growth after 48 hours 09/06/20 11:12 Blood Culture - Preliminary Blood No Growth after 72 hours 09/06/20 11:12 Blood Culture - Preliminary Blood No Growth after 72 hours 09/05/20 10:23 Blood Culture Gram Stain - Final Blood Blood Culture - Final Escherichia coli 09/08/20 19:16 Gram Stain - Preliminary Sputum Sputum Culture - Preliminary Assessment and Plan Plan: Assessment: 1. End-stage renal disease maintained on hemodialysis on Monday schedule. 2. E. coli bacteremia. Urine culture positive for E. coli. On antibiotics per infectious disease. 3. Hyponatremia secondary to chronic kidney disease. Improved. 4. Diabetes mellitus. 5. 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 6. Anemia of chronic kidney disease. Maintained on Aranesp. Avoid IV iron in the setting of bacteremia. 7. Status post cardiac arrest on September 07. ? Aspiration. Plan: Currently seen was undergoing hemodialysis. Try for 2-3 L ultrafiltration as able to tolerate. Antibiotics per infectious disease. Wean FiO2. Possible extubation today. Change Lasix to oral. Stop metolazone.
[2020-09-10 12:01] LABS: Glucose,Whole Blood 70 mg/dL (75-99)
--- NOTE | 2020-09-10 12:37 | P.PN ---
Subjective Progress Note Date: 09/10/20 Principal diagnosis: Cardiac arrest This is a 74-year-old female primarily a patient of Dr. Farias, known history of multiple medical problems including chronic atrial fibrillation, mostly paroxysmal in nature, coronary artery disease, previous [place], history of obstructive sleep apnea on CPAP at home, history of end-stage renal disease on hemodialysis history of aortic stenosis and previous T aVR in 2018. History of multiple urinary tract infections. Patient was admitted on 09/05/2020, her admitting diagnosis was sepsis secondary to urinary tract infection and patient was seen by infectious disease on consultation. Has been on proper antibiotics. Patient has been on Invanz, and she was being followed by many consultants on the case. Initially, the patient was on cefepime but this was later changed to Invanz. And she had multiple positive blood cultures for E. coli. At any rate patient was on the medical floor today, and around 1: 19, patient had a CODE BLUE. CPR was started, apparently patient was feeding at the time she had CODE BLUE. Questionable choking on her hamburger. Patient had no pulse, and went unresponsive. Spontaneous circulation was noted after 1 round of CPR and she was having episodes of apnea. Patient was intubated by [employer], 12-lead EKG at the time showed sinus tachycardia without any ischemic changes. Patient was eventually placed on mechanical ventilation, and she was transferred to the ICU. I saw the patient shortly after she arrived to the ICU, and reviewed her ABG also reviewed her chest x-ray. Her chest x-ray showed endotracheal tube about 4.8 cm from the level of the nicolás. There was no evidence of infiltrate, minimal atelectasis is noted. ABG showed a pO2 of 219 pCO2 of 72 pH of 7.22, hence her ventilator settings were adjusted by increasing her assist control rate of mechanical ventilation, and drop down her FiO2 to 50%. Repeat ABG is pending. Labs were basically unremarkable except for BUN of 51 creatinine of 5.58, remind you patient is known to have history of chronic renal failure and on hemodialysis. Lactic acid was noted to be at 2.2 and her watson virus PCR was negative. Patient initial complaint on admission was mostly symptoms of weakness with symptoms of urinary tract infection and her initial blood cultures and urine cultures were positive for E. coli. Looking at the chart, patient received 1 dose of epinephrine and 1 amp of bicarb patient was actually intubated at 1243, EKG showed wide complex tachycardia after return of spontaneous circulation. Last dialysis on this patient was yesterday. Patient was reevaluated today on 09/08/2020, remains in the ICU, intubated and mechanically ventilated. Her assist control rate is 18 tidal volume 450 FiO2 45% PEEP of 5 ABG showed a pO2 of 109 pCO2 of 35 pH of 7.47. Patient is on propofol at 30 mcg/kg/m she is off norepinephrine and her IV fluid at KVO. Patient remains on Invanz for her E. coli urinary tract infection and bacteremia. Chest x-ray showed basilar atelectasis, difficult to rule out pneumonia, and she does have some interstitial edema. WBC count today is 12.3 hemoglobin is 9.6. Electrolytes are normal however her BUN is 67 creatinine 7.69 Patient was reevaluated today on 09/09/2020, remains intubated and mechanically ventilated, remains in the ICU. She is on assist control rate of 18 tidal volume 450 FiO2 45% PEEP of 5 ABG showed a pO2 of 131 pCO2 of 37 pH of 7.39. Remains on propofol at 55 mcg/kg/m, not requiring any pressors, not requiring any paralytics. Patient had slow weaning yesterday, however she was getting a bit agitated while on mechanical ventilation, did not get a chance to give her a weaning trial, hence we'll try to do that today. My plan is to hold propofol, assess weaning parameters, possibly placed the patient on pressure support of 8 and CPAP, and if tolerated will proceed with extubating the patient. Chest x- ray shows minimal infiltrates especially at the right base. Patient is empirically on antibiotics. WBC count is 14.5 hemoglobin is 8.7 and lites are normal BUN is 34 creatinine 5.01 Reevaluated today on 09/10/2020, patient remains in the ICU, intubated and mechanically ventilated. Patient is extremely slow to wake up, remains lethargic, although she seems to be doing well with a pressure support of 14 and CPAP. I'm a bit reluctant to extubate the patient at this point since she is not fully awake, and I have a feeling that she will not be able to clear her se cretions if extubated early. She was on assist control rate of 18 tidal volume is 450 FiO2 45% PEEP of 5 ABG showed a pO2 of 145 pCO2 of 36 pH of 7.37 I cut down her FiO2 to 45% and transition the patient to a pressure support with CPAP mode of mechanical ventilation planning to hopefully extubated the patient down the line. Patient remains off sedation. Propofol has been off for the last 24 hours. Relative fluids at KVO, tube feeds are on hold at present. Chest x-ray is showing some mild fluid overload, patient will be dialyzed, and the plan is to remove 2 L of fluid today. Left lites are normal renal profile is abnormal with BUN of 47 creatinine 6.81. Her CBC count is 14.5 lobe is 8.2. Blood sugar is in the 70s Objective - Vital Signs Vital signs: Vital Signs Temp 98.8 F 09/10/20 08:00 Pulse 73 09/10/20 10:00 Resp 21 09/10/20 12:00 BP 155/38 09/08/20 16:08 Pulse Ox 100 09/10/20 10:00 Intake & Output 09/09/20 09/10/20 09/10/20 18:59 06:59 18:59 Intake Total 442.32 240 80 Output Total 45 15 20 Balance 397.32 225 60 Weight 89.4 kg Intake: IV 240 240 80 0.9 NS 240 240 80 Intake, IV Titration 162.32 Amount Ertapenem 0.5 gm In 50 Sodium Chloride 0.9% 50 ml @ 100 mls/hr IVPB DAILY@1500 [facility] Rx#: [id number] propofoL 1,000 mg In 112.32 Empty Bag 1 bag @ Titrate IV .Q0M [facility] Rx#: [id number] Tube Feeding 10 0 Other 30 Output: Urine 45 15 20 Other: Voiding Method Indwelling Catheter Indwelling Catheter Indwelling Catheter ABP, PAP, CO, CI - Last Documented Arterial Blood Pressure 142/43 - Exam Physical Exam: Revealed 74-year-old female on mechanical ventilation, off sedation, lethargic, arousable but very slow. HEENT : PERRLA, EOMI, nonicteric. No neck masses, no JVD, no stridor. Chest: fine crackles at the bases, symmetrical chest expansion noted. . Cardiac Exam: [Normal S1 and S2, no S3 gallop, 3/6 systolic murmur thought the precordium. Abdomen: [Soft, nontender, no megaly, no rebound, no guarding, normal bowel sounds.] Extremities: [No clubbing, no edema, no cyanosis.] AV fistula noted in the left arm. Midline is noted in the right arm. Neurological Exam: lethargic, arousable, follows simple instructions. But a bit difficult to arouse fully. Psychiatric:depressed mood blunt affect lethargic. - Labs CBC & Chem 7: 09/10/20 05:00 09/10/20 05:00 Labs: Abnormal Lab Results - Last 24 Hours (Table) 09/10/20 09/10/20 09/10/20 Range/Units 05:00 05:00 05:33 WBC 14.5 H (3.8-10.6) k/uL RBC 2.52 L (3.80-5.40) m/uL Hgb 8.2 L (11.4-16.0) gm/dL Hct 26.2 L (34.0-46.0) % MCV 103.7 H (80.0-100.0) fL RDW 16.7 H (11.5-15.5) % ABG pO2 145 H (83-108) mmHg ABG O2 Saturation 98.5 H (94-97) % Chloride 113 H (98-107) mmol/L Carbon Dioxide 19 L (22-30) mmol/L BUN 47 H (7-17) mg/dL Creatinine 6.81 H (0.52-1.04) mg/dL POC Glucose (mg/dL) (75-99) mg/dL 09/10/20 Range/Units 12:00 WBC (3.8-10.6) k/uL RBC (3.80-5.40) m/uL Hgb (11.4-16.0) gm/dL Hct (34.0-46.0) % MCV (80.0-100.0) fL RDW (11.5-15.5) % ABG pO2 (83-108) mmHg ABG O2 Saturation (94-97) % Chloride (98-107) mmol/L Carbon Dioxide (22-30) mmol/L BUN (7-17) mg/dL Creatinine (0.52-1.04) mg/dL POC Glucose (mg/dL) 70 L (75-99) mg/dL Microbiology - Last 24 Hours (Table) 09/08/20 19:16 Gram Stain - Final Sputum Sputum Culture - Final Rosario albicans 09/07/20 11:53 Blood Culture - Preliminary Blood No Growth after 48 hours 09/06/20 11:12 Blood Culture - Preliminary Blood No Growth after 72 hours 09/06/20 11:12 Blood Culture - Preliminary Blood No Growth after 72 hours 09/05/20 10:23 Blood Culture Gram Stain - Final Blood Blood Culture - Final Escherichia coli Assessment and Plan Assessment: Acute hypoxic, and acute hypercapnic respiratory failure secondary to cardiac arrest secondary to sepsis and possible septic shock. Secondary to E. coli urinary tract infection and positive bacteremia. Bibasilar atelectasis, possible aspiration pneumonia. Chronic kidney disease, on hemodialysis. Patient has end-stage renal disease. Acute on chronic diastolic congestive heart failure History of aortic stenosis and previous TAVR. History of hypertension History of paroxysmal atrial fibrillation History of coronary artery disease and previous stent placement in LAD. As well as left circumflex Type 2 diabetes. History of GERD Dyslipidemia Obstructive sleep apnea syndrome on CPAP at night History of diabetes and diabetic neuropathy History of depression Hypovolemic hyponatremia Recommendation: Transitioned patient to pressure support of 14 and CPAP, plan to wean and extubate the patient hopefully later today. But she needs to be more awake. Continue to hold sedation until the patient is more awake. Continue antibiotics for her bacteremia and urinary tract infection secondary to E. coli. Continue GI and DVT prophylaxis. Hemodynamic support, if needed. Continue hemodialysis. Daily assessment of weaning parameters. Continue enteral feeding/nutritional support. Possible extubation today if the patient is more awake. Prognosis extremely poor and guarded. Critical care time is over 30 minutes. Time with Patient: Greater than 30
--- NOTE | 2020-09-10 14:40 | P.PN ---
Subjective This is a 74-year-old female patient of Dr. Farias with past medical history of proximal atrial fibrillation, coronary artery disease status post GA, denies any history of COPD or asthma. Uses CPAP at home frequently. chronic diastolic heart failure, diabetes, hyperlipidemia, hypertension, hypertensive cardiovascular disease, end-stage renal disease on hemodialysis Monday and Monday, aortic stenosis status post TAVR in 2018, with h/o multiple urinary tract infection treated by Dr Borrego who also did cystoscopy on 05/22 done for recurrent UIT followed by bactrim for klebsiella and ecoli uti on 06/07/2020. Patient's urinalysis multidrug-resistant tenderness difficult to treat as outpatient. Dr. Borrego was planning to send the patient can't afford if no improvement seen. She started feeling unwell on Monday and had a full pre scription of doxycycline and home which she started taking. Patient took doxycycline for 2 days with no improvement in sensation and decided to come to ER. Patient does document fever and chills at home. She denies any abdominal pain, diarrhea or constipation. Vitals evaluated in the assisted temp of 101 pulse 84 respiratory rate 18 blood pressure 138/88. Labs refuses this today WBC of 18.8 hemoglobin 10.5 MCV 102 platelet 217, INR 1, sodium 1:30, potassium 5, chloride 86, BUN 59 creatinine 6.7 glucose 219 lactic acid 2.1 and liver enzymes are normal and alkaline phosphatase 134. Urinalysis positive for UTI with positive RBC 175 WBC 182 positive leukocyte esterase and negative nitrites. Chest x-ray suggestive of the stated infiltrate concern for atelectasis versus pneumonia. Repeat chest x-ray will be obtained tomorrow. Continue patient on cefepime 2 g every 8 hours. Patient has sepsis secondary to UTI. IV fluids can cannot be continued as patient is on dialysis and is due for her dialysis. 09/06 patient evaluated at bedside appears much confused than yesterday. His shor t of breath on evaluation. Patient did not get her dialysis yesterday. She is not answering to questions and repeating the phrase" everything is going opposite"patient gets confused easily and is not able to answer suspension appropriate he is oriented 2. Nephrology is evaluated the patient and recommend dialysis today. Vitals checked this morning patient had a temp of 100.5 pulse rate 112 blood pressure 170/74 requiring 1-2 L of oxygen saturating at 94% on assessment patient's blood work today WBC has improved from 18-12.8 hemoglobin is 9.9, platelets 05[birth year]/1989 sodium has worsened from yesterday dropped to 127, potassium 5.3, chloride 84 bun is 74 creatinine 8.8, glucose 158 alkaline phosphatase is 133. Blood cultures are positive for gram-negative bacilli. Infectious disease consulted. Levofloxacin every 48 hours 500 mg IV Patient evaluated at bedside around 11 in the morning patient was doing well was lying in bed appears a little confused but was able to communicate without any difficulty. Discussed with patient the need for possible rehab which patient was reluctant about. At around 12:38 PM, CODE VIANNEY was called and the patient. He apparently patient was sleeping Herberger and found to choke on food. Patient lost her pulse and became unresponsive. The nurse bedside initiated the CODE BLUE. Patient received 1 dose of epinephrine and bicarb. Pulse was obtained at 12:40 PM. Patient got intubated at 1243 as was noted to be apneic. EKG was obtained that suggested wide-complex tachycardia. Vitals reviewed had a temp of 98, pulse 88 respiratory rate 18 was saturating at 98% on 3 L and currently on 100% FiO2 Blood gas was obtained. PH of 7.2 CO2 was 72 pO2 to 209. CMP this morning was pending, stat labs were ordered in the morning which resulted close to the CODE BLUE suggested sodium of 134 potassium 5.3 chloride 93 BUN 61 creatinine 7.44. Patient received dialysis yesterday. Patient to be moved to the ICU for further management. Pulmonary consulted. 1 g of calcium gluconate given. 1 g of mag sulfate given. Labs ordered currently pending. 09/08 patient currently intubated. On assist control respiratory rate 18 and tidal volume 450 FiO2 45% PEEP of 5. ABG this morning patient had a pH of 7.47 pCO2 improved to 35 from 70 to pO2 109 bicarb 3026. CBC suggestive hemoglobin of 9.6 and C-reactive 0.5. BNP Surgicel and 35 potassium 5 chloride 97, magnesium 2.8 BUN 67 creatinine 7.69. Chest x-ray reviewed suggest basilar at electasis. Blood culture for 24 hours and negative for E. coli. Continue with Invanz per infectious disease. Family at bedside and updated the patient's condition 09/09: Patient evaluated today in the ICU. Still currently intubated. Continues on assist control respiratory rate 18, tidal volume 450, FiO2 45% with a PEEP of 5. ABG today with a pH of 7.39, pCO2 37, pO2 131. Hemoglobin noted to drop slightly to 8.7 today, WBC 14.5, creatinine 5.0, BUN 34, potassium 4.7. Repeat chest x-ray shows stable x-ray, bilateral infiltrate with pleural effusion superimposed venous congestion. Patient noted to have no urine output, she continues on hemodialysis three times a week. Continues on Invanz per infectious diseases recommendations. The cultures show no growth to date. Patient is off propofol, plan to extubate possibly tomorrow. 09/10: Patient evaluated in the ICU still currently intubated and mechanically ventilated. She is on pressure support of 14 and CPAP, still remains lethargic and slow to wake up. Plan to extubate once patient is more awake. Repeat chest x-ray shows slightly decreased lung volume, bibasilar atelectasis consolidation small pleural effusions. Patient will be going for hemodialysis today and laboratory evaluation the WBC 14.5, hemoglobin 8.2, BUN 47, creatinine 6.8 Objective - Vital Signs Vital signs: Vital Signs Temp 98.2 F 09/10/20 12:00 Pulse 90 09/10/20 12:00 Resp 25 H 09/10/20 12:00 BP 155/38 09/08/20 16:08 Pulse Ox 98 09/10/20 12:00 Intake & Output 09/09/20 09/10/20 09/10/20 18:59 06:59 18:59 Intake Total 442.32 240 80 Output Total 45 15 3020 Balance 397.32 225 -2940 Weight 89.4 kg Intake: IV 240 240 80 0.9 NS 240 240 80 Intake, IV Titration 162.32 Amount Ertapenem 0.5 gm In 50 Sodium Chloride 0.9% 50 ml @ 100 mls/hr IVPB DAILY@1500 JONEL Rx#: [id number] propofoL 1,000 mg In 112.32 Empty Bag 1 bag @ Titrate IV .Q0M [facility] Rx#: [id number] Tube Feeding 10 0 Other 30 Output: Urine 45 15 20 Hemodialysis 3000 Other: Voiding Method Indwelling Catheter Indwelling Catheter Indwelling Catheter ABP, PAP, CO, CI - Last Documented Arterial Blood Pressure 160/48 - Exam - Constitutional General appearance: Intubated, lethargic - EENT Eyes: anicteric sclerae, PERRLA, normal appearance ENT: hearing grossly normal - Neck Neck: no lymphadenopathy, normal ROM, no other, no rigidity, no stridor, no thyromegaly - Respiratory Respiratory: bilateral: Decreased air entry, wheezing noted on examination OG and ET tube in place - Cardiovascular Rhythm: regular Heart sounds: normal: S1, S2 Abnormal Heart Sounds: 3/6 systolic murmur, no diastolic murmur, no rub, no S3 Gallop, no S4 Gallop, no click - Gastrointestinal General gastrointestinal: normal bowel sounds, soft nontender - Integumentary Integumentary: no rash - Neurologic Neurologic: Sedated - Musculoskeletal Musculoskeletal: gait not assessed, strength equal bilaterally - Psychiatric Psychiatric: lethargic - Labs CBC & Chem 7: 09/10/20 05:00 09/10/20 05:00 Labs: Abnormal Lab Results - Last 24 Hours (Table) 09/10/20 09/10/20 09/10/20 Range/Units 05:00 05:00 05:33 WBC 14.5 H (3.8-10.6) k/uL RBC 2.52 L (3.80-5.40) m/uL Hgb 8.2 L (11.4-16.0) gm/dL Hct 26.2 L (34.0-46.0) % MCV 103.7 H (80.0-100.0) fL RDW 16.7 H (11.5-15.5) % ABG pO2 145 H (83-108) mmHg ABG O2 Saturation 98.5 H (94-97) % Chloride 113 H (98-107) mmol/L Carbon Dioxide 19 L (22-30) mmol/L BUN 47 H (7-17) mg/dL Creatinine 6.81 H (0.52-1.04) mg/dL POC Glucose (mg/dL) (75-99) mg/dL 09/10/20 Range/Units 12:00 WBC (3.8-10.6) k/uL RBC (3.80-5.40) m/uL Hgb (11.4-16.0) gm/dL Hct (34.0-46.0) % MCV (80.0-100.0) fL RDW (11.5-15.5) % ABG pO2 (83-108) mmHg ABG O2 Saturation (94-97) % Chloride (98-107) mmol/L Carbon Dioxide (22-30) mmol/L BUN (7-17) mg/dL Creatinine (0.52-1.04) mg/dL POC Glucose (mg/dL) 70 L (75-99) mg/dL Microbiology - Last 24 Hours (Table) 09/07/20 11:53 Blood Culture - Preliminary Blood No Growth after 72 hours 09/06/20 11:12 Blood Culture - Preliminary Blood No Growth after 96 hours 09/06/20 11:12 Blood Culture - Preliminary Blood No Growth after 96 hours 09/08/20 19:16 Gram Stain - Final Sputum Sputum Culture - Final Rosario albicans Assessment and Plan Plan: 1. Sepsis secondary to UTI. Gram-negative bacteremia Continue Ertapenem per infectious disease's recommendations. Blood culture negative for 24 hours previous blood culture positive for E. coli, continue with dialysis 2. Bilateral pleural effusion, small posterior infiltrate consistent with atelectasis.. Pneumonia cannot be excluded repeat chest x-ray suggests mild volume overload. On dialysis 3 Cardiac arrest unresponsive with loss of pulse CODE BLUE called on 09/07. Secondary to choking on her food. Status was epinephrine and bicarb Initial rhythm on record placed. EKG with wide complex tachycardia. Status post calcium gluconate and 1 g of magnesium sulfate. 4. Acute hypoxic hypercapnic respiratory failure intubated during the CODE BLUE. Likely aspiration [employer] consulted. ABG concerning for hypercapnic respiratory failure. Ventilatory setting per pulmonary. Chest x-ray stat order ed suggestive of CHF exacerbation. Lasix is switched to IV 80 twice a day. COVID 19 test ordered 5. White complex tachycardia baseline EKG with sinus rhythm with bifascicular lock. Avoid QT prolonging medication. Cardiology consulted. Hyperkalemia noted magnesium level not available. Status post one dose of calcium gluconate. 1 g magnesium. Repeat labs ordered. 6. Status post Recurrent UTI, status post cystoscopy, by Dr. Borrego, previous culture positive for E. coli and klebsiella during last cultures chronic prophylactic antibiotics including nitrofurantoin and Mandelamine 4 Oliguria secondary to end-stage kidney disease, making less then 20 mL per day, consult with nephrology, on hemodialysis Monday and Monday . roy catheter in place 5 End-stage renal disease on hemodialysis Monday and Monday. 6 acute on Chronic diastolic heart failure. Continue hemodialysis. Continue home dose of Lasix at 80 mg twice daily as well as metoprolol 50 mg Monday, and metolazone 5 mg twice a day. Lasix switched to IV twice a day 7 History of aortic stenosis status post TAVR. 8 Hypertension cardiovascular disease. Continue amiodarone 100 mg daily and metoprolol. 10 Paroxysmal atrial fibrillation. Continue amiodarone 100 mg once daily and metoprolol a history of GI bleed no past several years ago, not on any anticoagulation due to increased risk of fall and GI bleeding 11 History of myocardial infarction and coronary artery disease status post LAD stent in July 2017 and left circumflex in August 2017. Continue Toprol-XL 50 mg once daily, and Plavix 12 Diabetes mellitus type 2, insulin requiring. Continue insulin sliding scale. 13 GERD continue Protonix. 14 History of hyperlipidemia continue Zetia 10mg daily 15 Obstructive sleep apnea, on CPAP machine at night, along with O2 supplementation 16. Diabetic peripheral neuropathy continue gabapentin 300 mg twice daily. 17. Recurrent depression. Continue Cymbalta 60 mg orally once daily 18. Metabolic encephalopathy likely secondary to uremia and sepsis. on Dialysis 19 hyponatremia secondary to volume overload. Dialysis on Nephrology following the patient DVT prophylaxis. Heparin subcu every 12 hours GI prophylaxis continue Protonix. The above impression and plan of care have been discussed and directed by signing physician. Jossie Negron nurse practitioner acting as scribe for signing physician.
[2020-09-10] MEDS: FUROSEMIDE 80 MG TAB PO SCH (16:26)
[2020-09-10] MEDS: ERTAPENEM 0.5 GM in SODIUM CHLORIDE 0.9% 50 ML IVPB SCH (16:26)
[2020-09-10 18:08] LABS: Glucose,Whole Blood 94 mg/dL (75-99)
[2020-09-10 19:47] LABS: Glucose,Whole Blood 88 mg/dL (75-99)
--- NOTE | 2020-09-10 22:48 | PN ---
PROGRESS NOTE DATE OF SERVICE: 09/10/2020 REASON FOR FOLLOWUP: E coli UTI and bacteremia. INTERVAL HISTORY: The patient is afebrile. The patient is a hemodynamically stable. The patient remains intubated on the vent. FiO2 is currently at 45. No significant purulent secretions through the ET or diarrhea reported. PHYSICAL EXAMINATION: Her blood pressure is 131/37, pulse of 79, temperature 98.1. She is 100% on 45% FiO2. General description is an elderly female intubated on the vent. RESPIRATORY SYSTEM: Unlabored breathing. Clear to auscultation anteriorly. HEART: S1, S2. Regular rate and rhythm. ABDOMEN: Soft. No tenderness. LABS: Hemoglobin 8.9, white count 14.5, BUN of 47, creatinine 6.81. Blood culture repeat has been negative so far. DIAGNOSTIC IMPRESSION AND PLAN: Patient with an Escherichia coli urinary tract infection and bacteremia in this patient who did have acute respiratory failure with concern for possible aspiration etiology. Sputum is showing Rosario albicans. Patient is covered with Invanz; to continue along with respiratory support. Monitor clinical course closely. MMODL / IJN: [id number] /
[2020-09-10 23:45] LABS: Glucose,Whole Blood 110 mg/dL (75-99)
[2020-09-11 04:07] LABS: Anisocytosis Slight; Basophils # (A) 0.1 k/uL (0-0.2); Basophils % (A) 1 %; Eosinophils # (A) 0.2 k/uL (0-0.7); Eosinophils % (A) 2 %; HCT 28.2 % (34.0-46.0); HGB 8.7 gm/dL (11.4-16.0); Hypochromasia Moderate; Lymphocytes # (A) 0.9 k/uL (1.0-4.8); Lymphocytes % (A) 6 %; MCH 32.1 pg (25.0-35.0); MCHC 30.7 g/dL (31.0-37.0); MCV 104.7 fL (80.0-100.0); Macrocytosis Moderate; Mean Platelet Volume 9.1; Monocytes # (A) 0.7 k/uL (0-1.0); Monocytes % (A) 5 %; Neutrophils # (A) 11.8 k/uL (1.3-7.7); Neutrophils % (A) 84 %; Platelet Count 263 k/uL (150-450); RDW 16.5 % (11.5-15.5); WBC 14.1 k/uL (3.8-10.6)
[2020-09-11 04:26] LABS: Albumin 3.1 g/dL (3.5-5.0); Calcium 8.7 mg/dL (8.4-10.2); Potassium 4.4 mmol/L (3.5-5.1); Total Bilirubin 1.3 mg/dL (0.2-1.3); Total Protein 6.2 g/dL (6.3-8.2)
[2020-09-11 05:14] LABS: ABG Base Excess -1.8 mmol/L; ABG HCO3 23 mmol/L (21-25); ABG Oxygen Saturation 98.1 % (94-97); ABG PCO2 38 mmHg (35-45); ABG PH 7.39 (7.35-7.45); ABG PO2 136 mmHg (83-108); ABG TCO2 24 mmol/L (19-24); Allen Test Performed? Yes
[2020-09-11 05:53] LABS: Glucose,Whole Blood 161 mg/dL (75-99)
[2020-09-11] MEDS: INSULIN ASPART (NovoLOG) 100 UNIT/ML VIAL SQ SCH ×3 (06:15→18:48)
[2020-09-11] MEDS: SEVELAMER 800 MG TAB PO SCH (06:16)
[2020-09-11] MEDS: INSULIN DETEMIR (LEVEMIR) 100 UNIT/ML SYR SQ SCH ×2 (06:16→21:26)
--- NOTE | 2020-09-11 08:13 | XR ---
EXAMINATION TYPE: XR chest 1V portable DATE OF EXAM: 09/11/2020 COMPARISON: 09/10/2020. HISTORY: Shortness of breath. TECHNIQUE: Single frontal view of the chest is obtained. FINDINGS: Endotracheal tube lies 6.3 cm above the nicolás. Nasogastric tube is in the stomach. There is minor atelectasis or consolidation at the left lung base. Small left-sided pleural effusion is suspected. Right lung is clear. IMPRESSION: Slight improvement compared to yesterday.
[2020-09-11] MEDS: AMIODARONE 100 MG TAB PO SCH (08:27)
[2020-09-11] MEDS: ASPIRIN 81 MG PO SCH (08:27)
[2020-09-11] MEDS: CHOLECALCIFEROL 25 MCG (1000 IU) TABLET PO SCH (08:27)
[2020-09-11] MEDS: CHLORHEXIDINE GLUCONATE 15 ML CUP MUCOUS MEM SCH (08:27)
[2020-09-11] MEDS: PANTOPRAZOLE 40 MG/10 ML VIAL IVP SCH (08:28)
[2020-09-11] MEDS: FUROSEMIDE 80 MG TAB PO SCH ×2 (08:28→16:18)
[2020-09-11] MEDS: MAGNESIUM OXIDE 400 MG TAB PO SCH (08:28)
[2020-09-11] MEDS: DULoxetine HCL 60 MG CAPSULE.DR PO SCH (08:28)
[2020-09-11] MEDS: CLOPIDOGREL 75 MG TAB PO SCH (08:28)
[2020-09-11] MEDS: EZETIMIBE 10 MG TAB PO SCH (08:28)
[2020-09-11 10:31] LABS: ABG HCO3 23 mmol/L (21-25); ABG Oxygen Saturation 98.7 % (94-97); ABG PCO2 41 mmHg (35-45); ABG PH 7.36 (7.35-7.45); ABG PO2 162 mmHg (83-108); ABG TCO2 25 mmol/L (19-24)
[2020-09-11 10:32] LABS: Allen Test Performed? no
--- NOTE | 2020-09-11 10:46 | P.PN ---
Subjective Patient is seen in follow-up for end-stage renal disease. Patient had cardiac arrest and required short duration of CPR. She is currently intubated. Off sedation. He tolerated 3 L ultrafiltration yesterday. Awake on vent. Vital signs are stable. General: The patient appeared well nourished and normally developed. HEENT: Intubated. LUNGS: Breath sounds decreased. HEART: Rate and Rhythm are regular. ABDOMEN: Soft, obese. EXTREMITITES: Trace edema. Objective - Vital Signs Vital signs: Vital Signs Temp 97.4 F L 09/11/20 04:00 Pulse 80 09/11/20 07:00 Resp 10 L 09/11/20 07:00 BP 90/47 09/10/20 22:00 Pulse Ox 99 09/11/20 07:00 Intake & Output 09/10/20 09/11/20 09/11/20 18:59 06:59 18:59 Intake Total 260 396 Output Total 3055 10 Balance -2795 386 Weight 86 kg 86 kg Intake: IV 240 166 0.9 NS 240 130 pressure bag 36 Tube Feeding 20 140 Other 90 Output: Urine 55 10 Hemodialysis 3000 Other: Voiding Method Indwelling Catheter Indwelling Catheter ABP, PAP, CO, CI - Last Documented Arterial Blood Pressure 150/38 - Labs CBC & Chem 7: 09/11/20 03:50 09/11/20 03:50 Labs: Abnormal Lab Results - Last 24 Hours (Table) 09/10/20 09/10/20 09/11/20 Range/Units 12:00 23:43 03:50 WBC 14.1 H (3.8-10.6) k/uL RBC 2.70 L (3.80-5.40) m/uL Hgb 8.7 L (11.4-16.0) gm/dL Hct 28.2 L (34.0-46.0) % MCV 104.7 H (80.0-100.0) fL MCHC 30.7 L (31.0-37.0) g/dL RDW 16.5 H (11.5-15.5) % Neutrophils # 11.8 H (1.3-7.7) k/uL Lymphocytes # 0.9 L (1.0-4.8) k/uL ABG pO2 (83-108) mmHg ABG Total CO2 (19-24) mmol/L ABG O2 Saturation (94-97) % BUN (7-17) mg/dL Creatinine (0.52-1.04) mg/dL Glucose (74-99) mg/dL POC Glucose (mg/dL) 70 L 110 H (75-99) mg/dL AST (14-36) U/L Alkaline Phosphatase (38-126) U/L Total Protein (6.3-8.2) g/dL Albumin (3.5-5.0) g/dL 09/11/20 09/11/20 09/11/20 Range/Units 03:50 04:59 05:52 WBC (3.8-10.6) k/uL RBC (3.80-5.40) m/uL Hgb (11.4-16.0) gm/dL Hct (34.0-46.0) % MCV (80.0-100.0) fL MCHC (31.0-37.0) g/dL RDW (11.5-15.5) % Neutrophils # (1.3-7.7) k/uL Lymphocytes # (1.0-4.8) k/uL ABG pO2 136 H (83-108) mmHg ABG Total CO2 (19-24) mmol/L ABG O2 Saturation 98.1 H (94-97) % BUN 32 H (7-17) mg/dL Creatinine 4.68 H (0.52-1.04) mg/dL Glucose 137 H (74-99) mg/dL POC Glucose (mg/dL) 161 H (75-99) mg/dL AST 57 H (14-36) U/L Alkaline Phosphatase 203 H (38-126) U/L Total Protein 6.2 L (6.3-8.2) g/dL Albumin 3.1 L (3.5-5.0) g/dL 09/11/20 Range/Units 10:27 WBC (3.8-10.6) k/uL RBC (3.80-5.40) m/uL Hgb (11.4-16.0) gm/dL Hct (34.0-46.0) % MCV (80.0-100.0) fL MCHC (31.0-37.0) g/dL RDW (11.5-15.5) % Neutrophils # (1.3-7.7) k/uL Lymphocytes # (1.0-4.8) k/uL ABG pO2 162 H (83-108) mmHg ABG Total CO2 25 H (19-24) mmol/L ABG O2 Saturation 98.7 H (94-97) % BUN (7-17) mg/dL Creatinine (0.52-1.04) mg/dL Glucose (74-99) mg/dL POC Glucose (mg/dL) (75-99) mg/dL AST (14-36) U/L Alkaline Phosphatase (38-126) U/L Total Protein (6.3-8.2) g/dL Albumin (3.5-5.0) g/dL Microbiology - Last 24 Hours (Table) 09/07/20 11:53 Blood Culture - Preliminary Blood No Growth after 72 hours 09/06/20 11:12 Blood Culture - Preliminary Blood No Growth after 96 hours 09/06/20 11:12 Blood Culture - Preliminary Blood No Growth after 96 hours 09/08/20 19:16 Gram Stain - Final Sputum Sputum Culture - Final Rosario albicans Assessment and Plan Plan: Assessment: 1. End-stage renal disease maintained on hemodialysis on Monday schedule. 2. E. coli bacteremia. Urine culture positive for E. coli. On antibiotics per infectious disease. 3. Hyponatremia secondary to chronic kidney disease. Improved. 4. Diabetes mellitus. 5. 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 6. Anemia of chronic kidney disease. Maintained on Aranesp. Avoid IV iron in the setting of bacteremia. 7. Status post cardiac arrest on September 07. ? Aspiration. Plan: Hemodialysis tomorrow. Antibiotics per infectious disease. Wean FiO2. Maintain oral Lasix.
[2020-09-11 12:52] LABS: Glucose,Whole Blood 165 mg/dL (75-99)
[2020-09-11] MEDS: METOPROLOL SUCCINATE (ER) 50 MG TAB.ER.24H PO SCH (12:54)
[2020-09-11] MEDS: NOREPINEPHRINE 4 MG in SODIUM CHLORIDE 0.9% 250 ML IV SCH (12:55)
[2020-09-11 13:24] LABS: Hepatitis B Surface AB- Quant 3.5 mIU/mL; Hepatitis B Surface Antibody Non-Reactive (Non-Reactive); Hepatitis B Surface Antigen Non-Reactive (Non-Reactive)
--- NOTE | 2020-09-11 13:30 | P.PN ---
Subjective Progress Note Date: 09/11/20 Principal diagnosis: Cardiac arrest This is a 74-year-old female primarily a patient of Dr. Farias, known history of multiple medical problems including chronic atrial fibrillation, mostly paroxysmal in nature, coronary artery disease, previous [place], history of obstructive sleep apnea on CPAP at home, history of end-stage renal disease on hemodialysis history of aortic stenosis and previous T aVR in 2018. History of multiple urinary tract infections. Patient was admitted on 09/05/2020, her admitting diagnosis was sepsis secondary to urinary tract infection and patient was seen by infectious disease on consultation. Has been on proper antibiotics. Patient has been on Invanz, and she was being followed by many consultants on the case. Initially, the patient was on cefepime but this was later changed to Invanz. And she had multiple positive blood cultures for E. coli. At any rate patient was on the medical floor today, and around 1: 19, patient had a CODE BLUE. CPR was started, apparently patient was feeding at the time she had CODE BLUE. Questionable choking on her hamburger. Patient had no pulse, and went unresponsive. Spontaneous circulation was noted after 1 round of CPR and she was having episodes of apnea. Patient was intubated by [employer], 12-lead EKG at the time showed sinus tachycardia without any ischemic changes. Patient was eventually placed on mechanical ventilation, and she was transferred to the ICU. I saw the patient shortly after she arrived to the ICU, and reviewed her ABG also reviewed her chest x-ray. Her chest x-ray showed endotracheal tube about 4.8 cm from the level of the nicolás. There was no evidence of infiltrate, minimal atelectasis is noted. ABG showed a pO2 of 219 pCO2 of 72 pH of 7.22, hence her ventilator settings were adjusted by increasing her assist control rate of mechanical ventilation, and drop down her FiO2 to 50%. Repeat ABG is pending. Labs were basically unremarkable except for BUN of 51 creatinine of 5.58, remind you patient is known to have history of chronic renal failure and on hemodialysis. Lactic acid was noted to be at 2.2 and her watson virus PCR was negative. Patient initial complaint on admission was mostly symptoms of weakness with symptoms of urinary tract infection and her initial blood cultures and urine cultures were positive for E. coli. Looking at the chart, patient received 1 dose of epinephrine and 1 amp of bicarb patient was actually intubated at 1243, EKG showed wide complex tachycardia after return of spontaneous circulation. Last dialysis on this patient was yesterday. Patient was reevaluated today on 09/08/2020, remains in the ICU, intubated and mechanically ventilated. Her assist control rate is 18 tidal volume 450 FiO2 45% PEEP of 5 ABG showed a pO2 of 109 pCO2 of 35 pH of 7.47. Patient is on propofol at 30 mcg/kg/m she is off norepinephrine and her IV fluid at KVO. Patient remains on Invanz for her E. coli urinary tract infection and bacteremia. Chest x-ray showed basilar atelectasis, difficult to rule out pneumonia, and she does have some interstitial edema. WBC count today is 12.3 hemoglobin is 9.6. Electrolytes are normal however her BUN is 67 creatinine 7.69 Patient was reevaluated today on 09/09/2020, remains intubated and mechanically ventilated, remains in the ICU. She is on assist control rate of 18 tidal volume 450 FiO2 45% PEEP of 5 ABG showed a pO2 of 131 pCO2 of 37 pH of 7.39. Remains on propofol at 55 mcg/kg/m, not requiring any pressors, not requiring any paralytics. Patient had slow weaning yesterday, however she was getting a bit agitated while on mechanical ventilation, did not get a chance to give her a weaning trial, hence we'll try to do that today. My plan is to hold propofol, assess weaning parameters, possibly placed the patient on pressure support of 8 and CPAP, and if tolerated will proceed with extubating the patient. Chest x- ray shows minimal infiltrates especially at the right base. Patient is empirically on antibiotics. WBC count is 14.5 hemoglobin is 8.7 and lites are normal BUN is 34 creatinine 5.01 Reevaluated today on 09/10/2020, patient remains in the ICU, intubated and mechanically ventilated. Patient is extremely slow to wake up, remains lethargic, although she seems to be doing well with a pressure support of 14 and CPAP. I'm a bit reluctant to extubate the patient at this point since she is not fully awake, and I have a feeling that she will not be able to clear her se cretions if extubated early. She was on assist control rate of 18 tidal volume is 450 FiO2 45% PEEP of 5 ABG showed a pO2 of 145 pCO2 of 36 pH of 7.37 I cut down her FiO2 to 45% and transition the patient to a pressure support with CPAP mode of mechanical ventilation planning to hopefully extubated the patient down the line. Patient remains off sedation. Propofol has been off for the last 24 hours. Relative fluids at KVO, tube feeds are on hold at present. Chest x-ray is showing some mild fluid overload, patient will be dialyzed, and the plan is to remove 2 L of fluid today. Left lites are normal renal profile is abnormal with BUN of 47 creatinine 6.81. Her CBC count is 14.5 lobe is 8.2. Blood sugar is in the 70s Reevaluated today on 09/11/2020, patient remains intubated and mechanically ventilated. Her assist control rate is 18 tidal volume is 450 FiO2 45% and PEEP of 5. Patient is hemodynamically stable, not requiring any pressors. Patient is being treated for cardiac arrest and possible aspiration pneumonia. Her ABG today looks great with a pO2 of 136 pCO2 of 38 pH of 7.39. Patient is definitely more awake and arousable this morning, follows simple instructions, and while I'm at bedside, I transition the patient to a pressure support mode of mechanical ventilation with a pressure support of 8 and CPAP. And I'm planning to give the patient a trial of weaning and possibly extubation today. In the meantime her tube feeding was placed on hold and her stomach was suctioned. Patient was noted to move could tidal volume on pressure support of 8, and her respiratory rate was in the teens. After 1 hour of pressure support and CPAP, repeat ABG showed a pO2 of 162 and CO2 of 41 pH of 7.36, hence proceeded to extubating the patient to a nasal cannula. Chest x-ray shows improvement in her bibasilar atelectasis/infiltrates. Small tiny left pleural effusion is suspected CBC showed WBC count of 14.1 hemoglobin of 8.7. leukocytosis noted. Electrolytes are normal bicarb is 20 to and BUN is 32 creatinine 4.68 Objective - Vital Signs Vital signs: Vital Signs Temp 98.8 F 09/11/20 12:00 Pulse 97 09/11/20 13:00 Resp 23 09/11/20 13:00 BP 90/47 09/10/20 22:00 Pulse Ox 95 09/11/20 13:00 Intake & Output 09/10/20 09/11/20 09/11/20 18:59 06:59 18:59 Intake Total 260 396 10 Output Total 3055 10 Balance -2795 386 10 Weight 86 kg 86 kg Intake: IV 240 166 0.9 NS 240 130 pressure bag 36 Tube Feeding 20 140 10 Other 90 Output: Urine 55 10 Hemodialysis 3000 Other: Voiding Method Indwelling Catheter Indwelling Catheter ABP, PAP, CO, CI - Last Documented Arterial Blood Pressure 159/44 - Exam Physical Exam: Revealed 74-year-old female on mechanical ventilation, awake, follows simple instructions, off sedation for the last 24 hours. HEENT : PERRLA, EOMI, nonicteric. No neck masses, no JVD, no stridor. Chest: fine crackles at the bases, symmetrical chest expansion noted. . Cardiac Exam: [Normal S1 and S2, no S3 gallop, 3/6 systolic murmur thought the precordium. Abdomen: [Soft, nontender, no megaly, no rebound, no guarding, normal bowel sounds.] Extremities: [No clubbing, no edema, no cyanosis.] AV fistula noted in the left arm. Midline is noted in the right arm. Neurological Exam: Awake, follows simple instructions. Psychiatric: Blunted affect, normal mental status examination, comprehending all instructions. - Labs CBC & Chem 7: 09/11/20 03:50 09/11/20 03:50 Labs: Abnormal Lab Results - Last 24 Hours (Table) 09/10/20 09/11/20 09/11/20 Range/Units 23:43 03:50 03:50 WBC 14.1 H (3.8-10.6) k/uL RBC 2.70 L (3.80-5.40) m/uL Hgb 8.7 L (11.4-16.0) gm/dL Hct 28.2 L (34.0-46.0) % MCV 104.7 H (80.0-100.0) fL MCHC 30.7 L (31.0-37.0) g/dL RDW 16.5 H (11.5-15.5) % Neutrophils # 11.8 H (1.3-7.7) k/uL Lymphocytes # 0.9 L (1.0-4.8) k/uL ABG pO2 (83-108) mmHg ABG Total CO2 (19-24) mmol/L ABG O2 Saturation (94-97) % BUN 32 H (7-17) mg/dL Creatinine 4.68 H (0.52-1.04) mg/dL Glucose 137 H (74-99) mg/dL POC Glucose (mg/dL) 110 H (75-99) mg/dL AST 57 H (14-36) U/L Alkaline Phosphatase 203 H (38-126) U/L Total Protein 6.2 L (6.3-8.2) g/dL Albumin 3.1 L (3.5-5.0) g/dL 09/11/20 09/11/20 09/11/20 Range/Units 04:59 05:52 10:27 WBC (3.8-10.6) k/uL RBC (3.80-5.40) m/uL Hgb (11.4-16.0) gm/dL Hct (34.0-46.0) % MCV (80.0-100.0) fL MCHC (31.0-37.0) g/dL RDW (11.5-15.5) % Neutrophils # (1.3-7.7) k/uL Lymphocytes # (1.0-4.8) k/uL ABG pO2 136 H 162 H (83-108) mmHg ABG Total CO2 25 H (19-24) mmol/L ABG O2 Saturation 98.1 H 98.7 H (94-97) % BUN (7-17) mg/dL Creatinine (0.52-1.04) mg/dL Glucose (74-99) mg/dL POC Glucose (mg/dL) 161 H (75-99) mg/dL AST (14-36) U/L Alkaline Phosphatase (38-126) U/L Total Protein (6.3-8.2) g/dL Albumin (3.5-5.0) g/dL 09/11/20 Range/Units 12:50 WBC (3.8-10.6) k/uL RBC (3.80-5.40) m/uL Hgb (11.4-16.0) gm/dL Hct (34.0-46.0) % MCV (80.0-100.0) fL MCHC (31.0-37.0) g/dL RDW (11.5-15.5) % Neutrophils # (1.3-7.7) k/uL Lymphocytes # (1.0-4.8) k/uL ABG pO2 (83-108) mmHg ABG Total CO2 (19-24) mmol/L ABG O2 Saturation (94-97) % BUN (7-17) mg/dL Creatinine (0.52-1.04) mg/dL Glucose (74-99) mg/dL POC Glucose (mg/dL) 165 H (75-99) mg/dL AST (14-36) U/L Alkaline Phosphatase (38-126) U/L Total Protein (6.3-8.2) g/dL Albumin (3.5-5.0) g/dL Microbiology - Last 24 Hours (Table) 09/06/20 11:12 Blood Culture - Preliminary Blood No Growth after 120 hours 09/06/20 11:12 Blood Culture - Preliminary Blood No Growth after 120 hours 09/07/20 11:53 Blood Culture - Preliminary Blood No Growth after 72 hours 09/08/20 19:16 Gram Stain - Final Sputum Sputum Culture - Final Rosario albicans Assessment and Plan Assessment: Acute hypoxic, and acute hypercapnic respiratory failure secondary to cardiac arrest secondary to sepsis and possible septic shock. Secondary to E. coli urinary tract infection and positive bacteremia. Bibasilar atelectasis, possible aspiration pneumonia. Chronic kidney disease, on hemodialysis. Patient has end-stage renal disease. Acute on chronic diastolic congestive heart failure History of aortic stenosis and previous TAVR. History of hypertension History of paroxysmal atrial fibrillation History of coronary artery disease and previous stent placement in LAD. As well as left circumflex Type 2 diabetes. History of GERD Dyslipidemia Obstructive sleep apnea syndrome on CPAP at night History of diabetes and diabetic neuropathy History of depression Hypovolemic hyponatremia Recommendation: We'll continue to hold sedation Patient was transitioned to pressure support and CPAP mode of mechanical ventilation Repeat ABG on CPAP was done and the patient was extubated after almost 1 hour of CPAP and pressure support. Continue antibiotics for her bacteremia and urinary tract infection secondary to E. coli. Continue GI and DVT prophylaxis. Continue hemodialysis. Not scheduled to have hemodialysis today. Consider renal diet sometime later today after extubation. We'll continue to monitor closely in the ICU post extubation at least for the next 24 hours. Overall prognosis remains relatively guarded considering her history and her multiple comorbidities as noted above. Critical care time is over 30 minutes. Time with Patient: Greater than 30
--- NOTE | 2020-09-11 15:02 | P.PN ---
Subjective This is a 74-year-old female patient of Dr. Farias with past medical history of proximal atrial fibrillation, coronary artery disease status post TX, denies any history of COPD or asthma. Uses CPAP at home frequently. chronic diastolic heart failure, diabetes, hyperlipidemia, hypertension, hypertensive cardiovascular disease, end-stage renal disease on hemodialysis Monday and Monday, aortic stenosis status post TAVR in 2018, with h/o multiple urinary tract infection treated by Dr Borrego who also did cystoscopy on 05/22 done for recurrent UIT followed by bactrim for klebsiella and ecoli uti on 06/07/2020. Patient's urinalysis multidrug-resistant tenderness difficult to treat as outpatient. Dr. Borrego was planning to send the patient can't afford if no improvement seen. She started feeling unwell on Monday and had a full pre scription of doxycycline and home which she started taking. Patient took doxycycline for 2 days with no improvement in sensation and decided to come to ER. Patient does document fever and chills at home. She denies any abdominal pain, diarrhea or constipation. Vitals evaluated in the assisted temp of 101 pulse 84 respiratory rate 18 blood pressure 138/88. Labs refuses this today WBC of 18.8 hemoglobin 10.5 MCV 102 platelet 217, INR 1, sodium 1:30, potassium 5, chloride 86, BUN 59 creatinine 6.7 glucose 219 lactic acid 2.1 and liver enzymes are normal and alkaline phosphatase 134. Urinalysis positive for UTI with positive RBC 175 WBC 182 positive leukocyte esterase and negative nitrites. Chest x-ray suggestive of the stated infiltrate concern for atelectasis versus pneumonia. Repeat chest x-ray will be obtained tomorrow. Continue patient on cefepime 2 g every 8 hours. Patient has sepsis secondary to UTI. IV fluids can cannot be continued as patient is on dialysis and is due for her dialysis. 09/06 patient evaluated at bedside appears much confused than yesterday. His shor t of breath on evaluation. Patient did not get her dialysis yesterday. She is not answering to questions and repeating the phrase" everything is going opposite"patient gets confused easily and is not able to answer suspension appropriate he is oriented 2. Nephrology is evaluated the patient and recommend dialysis today. Vitals checked this morning patient had a temp of 100.5 pulse rate 112 blood pressure 170/74 requiring 1-2 L of oxygen saturating at 94% on assessment patient's blood work today WBC has improved from 18-12.8 hemoglobin is 9.9, platelets 05[birth year]/1989 sodium has worsened from yesterday dropped to 127, potassium 5.3, chloride 84 bun is 74 creatinine 8.8, glucose 158 alkaline phosphatase is 133. Blood cultures are positive for gram-negative bacilli. Infectious disease consulted. Levofloxacin every 48 hours 500 mg IV Patient evaluated at bedside around 11 in the morning patient was doing well was lying in bed appears a little confused but was able to communicate without any difficulty. Discussed with patient the need for possible rehab which patient was reluctant about. At around 12:38 PM, CODE VIANNEY was called and the patient. He apparently patient was sleeping Herberger and found to choke on food. Patient lost her pulse and became unresponsive. The nurse bedside initiated the CODE BLUE. Patient received 1 dose of epinephrine and bicarb. Pulse was obtained at 12:40 PM. Patient got intubated at 1243 as was noted to be apneic. EKG was obtained that suggested wide-complex tachycardia. Vitals reviewed had a temp of 98, pulse 88 respiratory rate 18 was saturating at 98% on 3 L and currently on 100% FiO2 Blood gas was obtained. PH of 7.2 CO2 was 72 pO2 to 209. CMP this morning was pending, stat labs were ordered in the morning which resulted close to the CODE BLUE suggested sodium of 134 potassium 5.3 chloride 93 BUN 61 creatinine 7.44. Patient received dialysis yesterday. Patient to be moved to the ICU for further management. Pulmonary consulted. 1 g of calcium gluconate given. 1 g of mag sulfate given. Labs ordered currently pending. 09/08 patient currently intubated. On assist control respiratory rate 18 and tidal volume 450 FiO2 45% PEEP of 5. ABG this morning patient had a pH of 7.47 pCO2 improved to 35 from 70 to pO2 109 bicarb 3026. CBC suggestive hemoglobin of 9.6 and C-reactive 0.5. BNP Surgicel and 35 potassium 5 chloride 97, magnesium 2.8 BUN 67 creatinine 7.69. Chest x-ray reviewed suggest basilar at electasis. Blood culture for 24 hours and negative for E. coli. Continue with Invanz per infectious disease. Family at bedside and updated the patient's condition 09/09: Patient evaluated today in the ICU. Still currently intubated. Continues on assist control respiratory rate 18, tidal volume 450, FiO2 45% with a PEEP of 5. ABG today with a pH of 7.39, pCO2 37, pO2 131. Hemoglobin noted to drop slightly to 8.7 today, WBC 14.5, creatinine 5.0, BUN 34, potassium 4.7. Repeat chest x-ray shows stable x-ray, bilateral infiltrate with pleural effusion superimposed venous congestion. Patient noted to have no urine output, she continues on hemodialysis three times a week. Continues on Invanz per infectious diseases recommendations. The cultures show no growth to date. Patient is off propofol, plan to extubate possibly tomorrow. 09/10: Patient evaluated in the ICU still currently intubated and mechanically ventilated. She is on pressure support of 14 and CPAP, still remains lethargic and slow to wake up. Plan to extubate once patient is more awake. Repeat chest x-ray shows slightly decreased lung volume, bibasilar atelectasis consolidation small pleural effusions. Patient will be going for hemodialysis today and laboratory evaluation the WBC 14.5, hemoglobin 8.2, BUN 47, creatinine 6.8 09/11: Patient evaluated this afternoon in the ICU. Patient has a repeat chest x- ray that showed slight improvement from yesterday. Patient was successfully extubated patient is maintained on 5 L nasal cannula saturating 95%. Sputum cultures are growing Rosario albicans she is maintained on Invanz per infectious diseases recommendations. Repeat ABG shows pH 7.36, pCO2 41, pO2 162. Laboratory values showed WBC 14.1, hemoglobin 8.7, creatinine 4.6, BUN 32. Plans for dialysis tomorrow. Objective - Vital Signs Vital signs: Vital Signs Temp 97.4 F L 09/11/20 04:00 Pulse 80 09/11/20 07:00 Resp 10 L 09/11/20 07:00 BP 90/47 09/10/20 22:00 Pulse Ox 99 09/11/20 07:00 Intake & Output 09/10/20 09/11/20 09/11/20 18:59 06:59 18:59 Intake Total 260 396 10 Output Total 3055 10 Balance -2795 386 10 Weight 86 kg 86 kg Intake: IV 240 166 0.9 NS 240 130 pressure bag 36 Tube Feeding 20 140 10 Other 90 Output: Urine 55 10 Hemodialysis 3000 Other: Voiding Method Indwelling Catheter Indwelling Catheter ABP, PAP, CO, CI - Last Documented Arterial Blood Pressure 150/38 - Exam - Constitutional General appearance: alert - EENT Eyes: anicteric sclerae, PERRLA, normal appearance ENT: hearing grossly normal - Neck Neck: no lymphadenopathy, normal ROM, no other, no rigidity, no stridor, no thyromegaly - Respiratory Respiratory: bilateral: Decreased air entry, wheezing noted on examination - Cardiovascular Rhythm: regular Heart sounds: normal: S1, S2 Abnormal Heart Sounds: 3/6 systolic murmur, no diastolic murmur, no rub, no S3 Gallop, no S4 Gallop, no click - Gastrointestinal General gastrointestinal: normal bowel sounds, soft nontender - Integumentary Integumentary: no rash - Neurologic Neurologic: drowsy but easily arousable - Musculoskeletal Musculoskeletal: gait not assessed, strength equal bilaterally - Psychiatric Psychiatric: Alert - Labs CBC & Chem 7: 09/11/20 03:50 09/11/20 03:50 Labs: Abnormal Lab Results - Last 24 Hours (Table) 09/10/20 09/11/20 09/11/20 Range/Units 23:43 03:50 03:50 WBC 14.1 H (3.8-10.6) k/uL RBC 2.70 L (3.80-5.40) m/uL Hgb 8.7 L (11.4-16.0) gm/dL Hct 28.2 L (34.0-46.0) % MCV 104.7 H (80.0-100.0) fL MCHC 30.7 L (31.0-37.0) g/dL RDW 16.5 H (11.5-15.5) % Neutrophils # 11.8 H (1.3-7.7) k/uL Lymphocytes # 0.9 L (1.0-4.8) k/uL ABG pO2 (83-108) mmHg ABG Total CO2 (19-24) mmol/L ABG O2 Saturation (94-97) % BUN 32 H (7-17) mg/dL Creatinine 4.68 H (0.52-1.04) mg/dL Glucose 137 H (74-99) mg/dL POC Glucose (mg/dL) 110 H (75-99) mg/dL AST 57 H (14-36) U/L Alkaline Phosphatase 203 H (38-126) U/L Total Protein 6.2 L (6.3-8.2) g/dL Albumin 3.1 L (3.5-5.0) g/dL 09/11/20 09/11/20 09/11/20 Range/Units 04:59 05:52 10:27 WBC (3.8-10.6) k/uL RBC (3.80-5.40) m/uL Hgb (11.4-16.0) gm/dL Hct (34.0-46.0) % MCV (80.0-100.0) fL MCHC (31.0-37.0) g/dL RDW (11.5-15.5) % Neutrophils # (1.3-7.7) k/uL Lymphocytes # (1.0-4.8) k/uL ABG pO2 136 H 162 H (83-108) mmHg ABG Total CO2 25 H (19-24) mmol/L ABG O2 Saturation 98.1 H 98.7 H (94-97) % BUN (7-17) mg/dL Creatinine (0.52-1.04) mg/dL Glucose (74-99) mg/dL POC Glucose (mg/dL) 161 H (75-99) mg/dL AST (14-36) U/L Alkaline Phosphatase (38-126) U/L Total Protein (6.3-8.2) g/dL Albumin (3.5-5.0) g/dL 09/11/20 Range/Units 12:50 WBC (3.8-10.6) k/uL RBC (3.80-5.40) m/uL Hgb (11.4-16.0) gm/dL Hct (34.0-46.0) % MCV (80.0-100.0) fL MCHC (31.0-37.0) g/dL RDW (11.5-15.5) % Neutrophils # (1.3-7.7) k/uL Lymphocytes # (1.0-4.8) k/uL ABG pO2 (83-108) mmHg ABG Total CO2 (19-24) mmol/L ABG O2 Saturation (94-97) % BUN (7-17) mg/dL Creatinine (0.52-1.04) mg/dL Glucose (74-99) mg/dL POC Glucose (mg/dL) 165 H (75-99) mg/dL AST (14-36) U/L Alkaline Phosphatase (38-126) U/L Total Protein (6.3-8.2) g/dL Albumin (3.5-5.0) g/dL Microbiology - Last 24 Hours (Table) 09/07/20 11:53 Blood Culture - Preliminary Blood No Growth after 72 hours 09/06/20 11:12 Blood Culture - Preliminary Blood No Growth after 96 hours 09/06/20 11:12 Blood Culture - Preliminary Blood No Growth after 96 hours 09/08/20 19:16 Gram Stain - Final Sputum Sputum Culture - Final Rosario albicans Assessment and Plan Plan: 1. Sepsis secondary to UTI. Gram-negative bacteremia Continue Ertapenem per infectious disease's recommendations. Blood culture negative for 24 hours previous blood culture positive for E. coli 2. Bilateral pleural effusion, small posterior infiltrate consistent with atelectasis.. Pneumonia cannot be excluded repeat chest x-ray suggests mild volume overload. On dialysis 3 Cardiac arrest unresponsive with loss of pulse CODE BLUE called on 09/07. Secondary to choking on her food. Status was epinephrine and bicarb Initial rhythm on record placed. EKG with wide complex tachycardia. Status post calcium gluconate and 1 g of magnesium sulfate. 4. Acute hypoxic hypercapnic respiratory failure intubated during the CODE BLUE. Likely aspiration Monitor Car Operator consulted. ABG concerning for hypercapnic respiratory failure. Patient successfully extubated, on 5 L via nasal cannula 5. White complex tachycardia baseline EKG with sinus rhythm with bifascicular lock. Avoid QT prolonging medication. Cardiology consulted. Status post one dose of calcium gluconate. 1 g magnesium. Repeat labs ordered. 6. Status post Recurrent UTI, status post cystoscopy, by Dr. Borrego, previous culture positive for E. coli and klebsiella during last cultures chronic prophylactic antibiotics including nitrofurantoin and Mandelamine 4 Oliguria secondary to end-stage kidney disease, making less then 20 mL per day, consult with nephrology, on hemodialysis Monday and Monday . roy catheter in place 5 End-stage renal disease on hemodialysis Monday and Monday. 6 acute on Chronic diastolic heart failure. Continue hemodialysis. Continue home dose of Lasix at 80 mg twice daily as well as metoprolol 50 mg Monday, and metolazone 5 mg twice a day. Lasix switched to IV twice a day 7 History of aortic stenosis status post TAVR. 8 Hypertension cardiovascular disease. Continue amiodarone 100 mg daily and metoprolol. 10 Paroxysmal atrial fibrillation. Continue amiodarone 100 mg once daily and metoprolol a history of GI bleed no past several years ago, not on any anticoagulation due to increased risk of fall and GI bleeding 11 History of myocardial infarction and coronary artery disease status post LAD stent in July 2017 and left circumflex in August 2017. Continue Toprol-XL 50 mg once daily, and Plavix 12 Diabetes mellitus type 2, insulin requiring. Continue insulin sliding scale. 13 GERD continue Protonix. 14 History of hyperlipidemia continue Zetia 10mg daily 15 Obstructive sleep apnea, on CPAP machine at night, along with O2 supplementation 16. Diabetic peripheral neuropathy continue gabapentin 300 mg twice daily. 17. Recurrent depression. Continue Cymbalta 60 mg orally once daily 18. Metabolic encephalopathy likely secondary to uremia and sepsis. on Dialysis 19 hyponatremia secondary to volume overload. Dialysis on Nephrology following the patient DVT prophylaxis. Heparin subcu every 12 hours GI prophylaxis continue Protonix. The above impression and plan of care have been discussed and directed by signing physician. Jossie Negron nurse practitioner acting as scribe for signing physician.
[2020-09-11] MEDS: ERTAPENEM 0.5 GM in SODIUM CHLORIDE 0.9% 50 ML IVPB SCH (15:29)
--- NOTE | 2020-09-11 17:05 | PN ---
PROGRESS NOTE DATE OF SERVICE: 09/11/2020 REASON FOR FOLLOWUP: E coli UTI and bacteremia. INTERVAL HISTORY: The patient is afebrile. The patient has been extubated. She is currently breathing comfortably, hemodynamically stable, not on any pressor support. She was slightly lethargic, unable to provide any history. No vomiting or any diarrhea has been reported. PHYSICAL EXAMINATION: Blood pressure is 150/44 with a pulse of 97, temperature 98.8. She is 95% on 5 L nasal cannula. General description is an elderly female lying in bed in no distress. RESPIRATORY SYSTEM: Unlabored breathing. HEART: S1, S2. Regular rate and rhythm. ABDOMEN: Soft. No tenderness. LABS: Hemoglobin is 8.7, white count 14.1, BUN of 32, creatinine is 4.68, decreased. Blood culture has been negative so far. DIAGNOSTIC IMPRESSION AND PLAN: Patient with Escherichia coli bacteremia secondary to the urinary source, as urine grew the same pathogen. Patient is covered with Invanz because of her multiple allergies; to continue while monitoring her clinical course closely. Family at the bedside. Their questions were answered. MMODL / IJN: [id number] /
[2020-09-11 17:45] LABS: Glucose,Whole Blood 144 mg/dL (75-99)
[2020-09-11 21:01] LABS: Glucose,Whole Blood 143 mg/dL (75-99)
[2020-09-12 00:47] LABS: Glucose,Whole Blood 146 mg/dL (75-99)
[2020-09-12] MEDS: INSULIN ASPART (NovoLOG) 100 UNIT/ML VIAL SQ SCH ×4 (01:00→18:33)
[2020-09-12] MEDS: IPRATROPIUM-ALBUTEROL 3 ML NEB INHALATION PRN ×4 (01:43→20:59)
[2020-09-12] MEDS ORDERED: RACEPINEPHRINE 2.25% NEB 0.5 ML NEBU INHALATION ONE (01:48)
[2020-09-12] MEDS ORDERED: DEXAMETHASONE SOD PHOSPHATE 10 MG/ML 1 ML VIAL IV STA (02:13)
[2020-09-12 03:55] LABS: Anisocytosis Slight; Basophils # (A) 0.1 k/uL (0-0.2); Basophils % (A) 0 %; Eosinophils # (A) 0.2 k/uL (0-0.7); Eosinophils % (A) 1 %; HCT 28.9 % (34.0-46.0); HGB 8.6 gm/dL (11.4-16.0); Hypochromasia Moderate; Lymphocytes # (A) 0.8 k/uL (1.0-4.8); Lymphocytes % (A) 6 %; MCH 30.9 pg (25.0-35.0); MCHC 29.8 g/dL (31.0-37.0); MCV 103.8 fL (80.0-100.0); Macrocytosis Moderate; Mean Platelet Volume 9.4; Monocytes # (A) 0.5 k/uL (0-1.0); Monocytes % (A) 4 %; Neutrophils # (A) 10.7 k/uL (1.3-7.7); Neutrophils % (A) 87 %; Platelet Count 313 k/uL (150-450); RBC 2.79 m/uL (3.80-5.40); WBC 12.4 k/uL (3.8-10.6)
[2020-09-12 04:12] LABS: Potassium 4.7 mmol/L (3.5-5.1)
[2020-09-12 04:14] LABS: Calcium 8.5 mg/dL (8.4-10.2)
[2020-09-12] MEDS ORDERED: DEXAMETHASONE SOD PHOSPHATE 10 MG/ML 1 ML VIAL IV ONE (06:00)
--- NOTE | 2020-09-12 07:10 | XR ---
EXAMINATION TYPE: XR chest 1V portable DATE OF EXAM: 09/12/2020 COMPARISON: 09/12/2019 HISTORY: Shortness of breath TECHNIQUE: Single frontal view of the chest is obtained. FINDINGS: ET and NG tube have been removed. There is bilateral infiltrate and small effusion with in terstitial pattern. Pneumothorax. Heart size stable. Radiopaque density along the lateral margin of t he left heart border stable. Postsurgical change of vertebral column. IMPRESSION: Correlate for pneumonia otherwise consider CHF. No interval change.
[2020-09-12 07:15] LABS: Glucose,Whole Blood 204 mg/dL (75-99)
[2020-09-12] MEDS: INSULIN DETEMIR (LEVEMIR) 100 UNIT/ML SYR SQ SCH ×2 (07:17→21:43)
[2020-09-12] MEDS: DULoxetine HCL 60 MG CAPSULE.DR PO SCH (09:20)
[2020-09-12] MEDS: CHOLECALCIFEROL 25 MCG (1000 IU) TABLET PO SCH (09:20)
[2020-09-12] MEDS: PANTOPRAZOLE 40 MG/10 ML VIAL IVP SCH (09:21)
[2020-09-12] MEDS: MAGNESIUM OXIDE 400 MG TAB PO SCH (09:21)
[2020-09-12] MEDS: ASPIRIN 81 MG PO SCH (09:21)
[2020-09-12] MEDS: CLOPIDOGREL 75 MG TAB PO SCH (09:21)
[2020-09-12] MEDS: SEVELAMER 800 MG TAB PO SCH (09:21)
[2020-09-12] MEDS: NOREPINEPHRINE 4 MG in SODIUM CHLORIDE 0.9% 250 ML IV SCH (09:36)
[2020-09-12] MEDS: METOPROLOL SUCCINATE (ER) 50 MG TAB.ER.24H PO SCH ×2 (09:36→15:50)
[2020-09-12] MEDS: FUROSEMIDE 80 MG TAB PO SCH ×2 (09:36→15:47)
[2020-09-12] MEDS: AMIODARONE 100 MG TAB PO SCH (09:36)
[2020-09-12] MEDS: EZETIMIBE 10 MG TAB PO SCH (09:37)
--- NOTE | 2020-09-12 10:15 | P.PN ---
Subjective This is a 74-year-old female patient of Dr. Farias with past medical history of proximal atrial fibrillation, coronary artery disease status post NC, denies any history of COPD or asthma. Uses CPAP at home frequently. chronic diastolic heart failure, diabetes, hyperlipidemia, hypertension, hypertensive cardiovascular disease, end-stage renal disease on hemodialysis Monday and Monday, aortic stenosis status post TAVR in 2018, with h/o multiple urinary tract infection treated by Dr Borrego who also did cystoscopy on 05/22 done for recurrent UIT followed by bactrim for klebsiella and ecoli uti on 06/07/2020. Patient's urinalysis multidrug-resistant tenderness difficult to treat as outpatient. Dr. Borrego was planning to send the patient can't afford if no improvement seen. She started feeling unwell on Monday and had a full pre scription of doxycycline and home which she started taking. Patient took doxycycline for 2 days with no improvement in sensation and decided to come to ER. Patient does document fever and chills at home. She denies any abdominal pain, diarrhea or constipation. Vitals evaluated in the assisted temp of 101 pulse 84 respiratory rate 18 blood pressure 138/88. Labs refuses this today WBC of 18.8 hemoglobin 10.5 MCV 102 platelet 217, INR 1, sodium 1:30, potassium 5, chloride 86, BUN 59 creatinine 6.7 glucose 219 lactic acid 2.1 and liver enzymes are normal and alkaline phosphatase 134. Urinalysis positive for UTI with positive RBC 175 WBC 182 positive leukocyte esterase and negative nitrites. Chest x-ray suggestive of the stated infiltrate concern for atelectasis versus pneumonia. Repeat chest x-ray will be obtained tomorrow. Continue patient on cefepime 2 g every 8 hours. Patient has sepsis secondary to UTI. IV fluids can cannot be continued as patient is on dialysis and is due for her dialysis. 09/06 patient evaluated at bedside appears much confused than yesterday. His shor t of breath on evaluation. Patient did not get her dialysis yesterday. She is not answering to questions and repeating the phrase" everything is going opposite"patient gets confused easily and is not able to answer suspension appropriate he is oriented 2. Nephrology is evaluated the patient and recommend dialysis today. Vitals checked this morning patient had a temp of 100.5 pulse rate 112 blood pressure 170/74 requiring 1-2 L of oxygen saturating at 94% on assessment patient's blood work today WBC has improved from 18-12.8 hemoglobin is 9.9, platelets [birth year]/1989 sodium has worsened from yesterday dropped to 127, potassium 5.3, chloride 84 bun is 74 creatinine 8.8, glucose 158 alkaline phosphatase is 133. Blood cultures are positive for gram-negative bacilli. Infectious disease consulted. Levofloxacin every 48 hours 500 mg IV Patient evaluated at bedside around 11 in the morning patient was doing well was lying in bed appears a little confused but was able to communicate without any difficulty. Discussed with patient the need for possible rehab which patient was reluctant about. At around 12:38 PM, CODE [facility] was called and the patient. He apparently patient was sleeping Herberger and found to choke on food. Patient lost her pulse and became unresponsive. The nurse bedside initiated the CODE BL[facility]. Patient received 1 dose of epinephrine and bicarb. Pulse was obtained at 12:40 PM. Patient got intubated at 1243 as was noted to be apneic. EKG was obtained that suggested wide-complex tachycardia. Vitals reviewed had a temp of 98, pulse 88 respiratory rate 18 was saturating at 98% on 3 L and currently on 100% FiO2 Blood gas was obtained. PH of 7.2 CO2 was 72 pO2 to 209. CMP this morning was pending, stat labs were ordered in the morning which resulted close to the CODE BLUE suggested sodium of 134 potassium 5.3 chloride 93 BUN 61 creatinine 7.44. Patient received dialysis yesterday. Patient to be moved to the ICU for further management. Pulmonary consulted. 1 g of calcium gluconate given. 1 g of mag sulfate given. Labs ordered currently pending. 09/08 patient currently intubated. On assist control respiratory rate 18 and tidal volume 450 FiO2 45% PEEP of 5. ABG this morning patient had a pH of 7.47 pCO2 improved to 35 from 70 to pO2 109 bicarb 3026. CBC suggestive hemoglobin of 9.6 and C-reactive 0.5. BNP Surgicel and 35 potassium 5 chloride 97, magnesium 2.8 BUN 67 creatinine 7.69. Chest x-ray reviewed suggest basilar at electasis. Blood culture for 24 hours and negative for E. coli. Continue with Invanz per infectious disease. Family at bedside and updated the patient's condition 09/09: Patient evaluated today in the ICU. Still currently intubated. Continues on assist control respiratory rate 18, tidal volume 450, FiO2 45% with a PEEP of 5. ABG today with a pH of 7.39, pCO2 37, pO2 131. Hemoglobin noted to drop slightly to 8.7 today, WBC 14.5, creatinine 5.0, BUN 34, potassium 4.7. Repeat chest x-ray shows stable x-ray, bilateral infiltrate with pleural effusion superimposed venous congestion. Patient noted to have no urine output, she continues on hemodialysis three times a week. Continues on Invanz per infectious diseases recommendations. The cultures show no growth to date. Patient is off propofol, plan to extubate possibly tomorrow. 09/10: Patient evaluated in the ICU still currently intubated and mechanically ventilated. She is on pressure support of 14 and CPAP, still remains lethargic and slow to wake up. Plan to extubate once patient is more awake. Repeat chest x-ray shows slightly decreased lung volume, bibasilar atelectasis consolidation small pleural effusions. Patient will be going for hemodialysis today and laboratory evaluation the WBC 14.5, hemoglobin 8.2, BUN 47, creatinine 6.8 09/11: Patient evaluated this afternoon in the ICU. Patient has a repeat chest x- ray that showed slight improvement from yesterday. Patient was successfully extubated patient is maintained on 5 L nasal cannula saturating 95%. Sputum cultures are growing Rosario albicans she is maintained on Invanz per infectious diseases recommendations. Repeat ABG shows pH 7.36, pCO2 41, pO2 162. Laboratory values showed WBC 14.1, hemoglobin 8.7, creatinine 4.6, BUN 32. Plans for dialysis tomorrow. 09/12: Patient evaluated the bedside, remains in the ICU. Patient was given a trial of weaning yesterday and was successfully extubated. She does not require pressors at this point and she is hemodynamically stable. Blood pressure 129/59, heart rate 89. Laboratory values reveal WBC 12.4, hemoglobin 8.6, BUN 51, creatinine 6.92. Patient did undergo bedside swallow evaluation yesterday upon assessment is recommended the patient remain on ice chips only until patient is a bit stronger and able to clear secretions better. Pertinent medications were changed to IV until swallow is more developed. Repeat chest x-ray showed no interval change and is stable. Patient continues to be covered with Invanz for E. coli bacteremia secondary to urinary source per recommendations from infectio us disease Objective - Vital Signs Vital signs: Vital Signs Temp 98.6 F 09/12/20 00:00 Pulse 89 09/12/20 07:00 Resp 20 09/12/20 07:00 BP 90/47 09/10/20 22:00 Pulse Ox 96 09/12/20 07:00 Intake & Output 09/11/20 09/12/20 09/12/20 18:59 06:59 18:59 Intake Total 303 156 13 Output Total 30 5 0 Balance 273 151 13 Weight 86 kg 86 kg Intake: IV 193 156 13 0.9 NS 110 120 10 Ertapenem 0.5 gm In 50 Sodium Chloride 0.9% 50 ml @ 100 mls/hr IVPB DAILY@1500 [facility] Rx#: [id number] pressure bag 33 36 3 Oral 100 Tube Feeding 10 Output: Urine 30 5 0 Other: Voiding Method Indwelling Catheter Indwelling Catheter ABP, PAP, CO, CI - Last Documented Arterial Blood Pressure 129/59 - Exam - Constitutional General appearance: alert and awake, drowsy - EENT Eyes: anicteric sclerae, PERRLA, normal appearance ENT: hearing grossly normal - Neck Neck: no lymphadenopathy, normal ROM, no other, no rigidity, no stridor, no thyromegaly - Respiratory Respiratory: bilateral: Rhonchi at the bases - Cardiovascular Rhythm: regular Heart sounds: normal: S1, S2 Abnormal Heart Sounds: 3/6 systolic murmur, no diastolic murmur, no rub, no S3 Gallop, no S4 Gallop, no click - Gastrointestinal General gastrointestinal: normal bowel sounds, soft nontender - Integumentary Integumentary: no rash - Neurologic Neurologic: Awake and alert - Musculoskeletal Musculoskeletal: gait not assessed, strength equal bilaterally - Psychiatric Psychiatric: Alert - Labs CBC & Chem 7: 09/12/20 03:50 09/12/20 03:50 Labs: Abnormal Lab Results - Last 24 Hours (Table) 09/11/20 09/11/20 09/11/20 Range/Units 10:27 12:50 17:43 WBC (3.8-10.6) k/uL RBC (3.80-5.40) m/uL Hgb (11.4-16.0) gm/dL Hct (34.0-46.0) % MCV (80.0-100.0) fL MCHC (31.0-37.0) g/dL RDW (11.5-15.5) % Neutrophils # (1.3-7.7) k/uL Lymphocytes # (1.0-4.8) k/uL ABG pO2 162 H (83-108) mmHg ABG Total CO2 25 H (19-24) mmol/L ABG O2 Saturation 98.7 H (94-97) % BUN (7-17) mg/dL Creatinine (0.52-1.04) mg/dL Glucose (74-99) mg/dL POC Glucose (mg/dL) 165 H 144 H (75-99) mg/dL 09/11/20 09/12/20 09/12/20 Range/Units 20:59 00:46 03:50 WBC 12.4 H (3.8-10.6) k/uL RBC 2.79 L (3.80-5.40) m/uL Hgb 8.6 L (11.4-16.0) gm/dL Hct 28.9 L (34.0-46.0) % MCV 103.8 H (80.0-100.0) fL MCHC 29.8 L (31.0-37.0) g/dL RDW 16.0 H (11.5-15.5) % Neutrophils # 10.7 H (1.3-7.7) k/uL Lymphocytes # 0.8 L (1.0-4.8) k/uL ABG pO2 (83-108) mmHg ABG Total CO2 (19-24) mmol/L ABG O2 Saturation (94-97) % BUN (7-17) mg/dL Creatinine (0.52-1.04) mg/dL Glucose (74-99) mg/dL POC Glucose (mg/dL) 143 H 146 H (75-99) mg/dL 09/12/20 09/12/20 Range/Units 03:50 07:14 WBC (3.8-10.6) k/uL RBC (3.80-5.40) m/uL Hgb (11.4-16.0) gm/dL Hct (34.0-46.0) % MCV (80.0-100.0) fL MCHC (31.0-37.0) g/dL RDW (11.5-15.5) % Neutrophils # (1.3-7.7) k/uL Lymphocytes # (1.0-4.8) k/uL ABG pO2 (83-108) mmHg ABG Total CO2 (19-24) mmol/L ABG O2 Saturation (94-97) % BUN 51 H (7-17) mg/dL Creatinine 6.92 H (0.52-1.04) mg/dL Glucose 140 H (74-99) mg/dL POC Glucose (mg/dL) 204 H (75-99) mg/dL Microbiology - Last 24 Hours (Table) 09/07/20 11:53 Blood Culture - Preliminary Blood No Growth after 96 hours 09/06/20 11:12 Blood Culture - Preliminary Blood No Growth after 120 hours 09/06/20 11:12 Blood Culture - Preliminary Blood No Growth after 120 hours Assessment and Plan Plan: 1. Sepsis secondary to UTI. Gram-negative bacteremia Continue Ertapenem per infectious disease's recommendations. Blood culture negative, previous blood culture positive for E. coli 2. Bilateral pleural effusion, small posterior infiltrate consistent with atelectasis. Repeat x-rays show improvement 3 Cardiac arrest unresponsive with loss of pulse CODE [facility] called on 09/07. Secondary to choking on her food. Status was epinephrine and bicarb Initial rhythm on record placed. EKG with wide complex tachycardia. Status post calcium gluconate and 1 g of magnesium sulfate. 4. Acute hypoxic hypercapnic respiratory failure intubated during the CODE BLUE. Likely aspiration. Vp Product consulted. Patient successfully extubated, aspiration precautions in place 5. White complex tachycardia baseline EKG with sinus rhythm with bifascicular lock. Avoid QT prolonging medication. Cardiology consulted. Status post one dose of calcium gluconate. 1 g magnesium. 6. Status post Recurrent UTI, status post cystoscopy, by Dr. Borrego, previous culture positive for E. coli and klebsiella during last cultures chronic prophylactic antibiotics including nitrofurantoin and Mandelamine 4 Oliguria secondary to end-stage kidney disease, making less then 20 mL per day, consult with nephrology, on hemodialysis Monday and Monday. Levy catheter in place 5 End-stage renal disease on hemodialysis Monday and Monday. 6 acute on Chronic diastolic heart failure. Continue hemodialysis. Continue home dose of Lasix at 80 mg twice daily as well as metoprolol 50 mg Monday, and metolazone 5 mg twice a day. Lasix switched to IV twice a day 7 History of aortic stenosis status post TAVR. 8 Hypertension cardiovascular disease. Continue amiodarone 100 mg daily and met oprolol. 10 Paroxysmal atrial fibrillation. Continue amiodarone 100 mg once daily and metoprolol a history of GI bleed no past several years ago, not on any anticoagulation due to increased risk of fall and GI bleeding 11 History of myocardial infarction and coronary artery disease status post LAD stent in July 2017 and left circumflex in August 2017. Continue Toprol-XL 50 mg once daily, and Plavix 12 Diabetes mellitus type 2, insulin requiring. Continue insulin sliding scale. 13 GERD continue Protonix. 14 History of hyperlipidemia continue Zetia 10mg daily 15 Obstructive sleep apnea, on CPAP machine at night, along with O2 supplementation 16. Diabetic peripheral neuropathy continue gabapentin 300 mg twice daily. 17. Recurrent depression. Continue Cymbalta 60 mg orally once daily 18. Metabolic encephalopathy likely secondary to uremia and sepsis. on Dialysis 19 hyponatremia secondary to volume overload. Dialysis on Nephrology following the patient DVT prophylaxis. Heparin subcu every 12 hours GI prophylaxis continue Protonix. The above impression and plan of care have been discussed and directed by signing physician. Jossie Negron nurse practitioner acting as scribe for signing physician.
--- NOTE | 2020-09-12 10:57 | P.PN ---
Subjective Progress Note Date: 09/12/20 Principal diagnosis: Cardiac arrest This is a 74-year-old female primarily a patient of Dr. Farias, known history of multiple medical problems including chronic atrial fibrillation, mostly paroxysmal in nature, coronary artery disease, previous CA, history of obstructive sleep apnea on CPAP at home, history of end-stage renal disease on hemodialysis history of aortic stenosis and previous T aVR in 2018. History of multiple urinary tract infections. Patient was admitted on 09/05/2020, her admitting diagnosis was sepsis secondary to urinary tract infection and patient was seen by infectious disease on consultation. Has been on proper antibiotics. Patient has been on Invanz, and she was being followed by many consultants on the case. Initially, the patient was on cefepime but this was later changed to Invanz. And she had multiple positive blood cultures for E. coli. At any rate patient was on the medical floor today, and around 1: 19, patient had a CODE BLUE. CPR was started, apparently patient was feeding at the time she had CODE BLUE. Questionable choking on her hamburger. Patient had no pulse, and went unresponsive. Spontaneous circulation was noted after 1 round of CPR and she was having episodes of apnea. Patient was intubated by AUTOMATION DEVELOPER, 12-lead EKG at the time showed sinus tachycardia without any ischemic changes. Patient was eventually placed on mechanical ventilation, and she was transferred to the ICU. I saw the patient shortly after she arrived to the ICU, and reviewed her ABG also reviewed her chest x-ray. Her chest x-ray showed endotracheal tube about 4.8 cm from the level of the nicolás. There was no evidence of infiltrate, minimal atelectasis is noted. ABG showed a pO2 of 219 pCO2 of 72 pH of 7.22, hence her ventilator settings were adjusted by increasing her assist control rate of mechanical ventilation, and drop down her FiO2 to 50%. Repeat ABG is pending. Labs were basically unremarkable except for BUN of 51 creatinine of 5.58, remind you patient is known to have history of chronic renal failure and on hemodialysis. Lactic acid was noted to be at 2.2 and her watson virus PCR was negative. Patient initial complaint on admission was mostly symptoms of weakness with symptoms of urinary tract infection and her initial blood cultures and urine cultures were positive for E. coli. Looking at the chart, patient received 1 dose of epinephrine and 1 amp of bicarb patient was actually intubated at 1243, EKG showed wide complex tachycardia after return of spontaneous circulation. Last dialysis on this patient was yesterday. Patient was reevaluated today on 09/08/2020, remains in the ICU, intubated and mechanically ventilated. Her assist control rate is 18 tidal volume 450 FiO2 45% PEEP of 5 ABG showed a pO2 of 109 pCO2 of 35 pH of 7.47. Patient is on propofol at 30 mcg/kg/m she is off norepinephrine and her IV fluid at KVO. Patient remains on Invanz for her E. coli urinary tract infection and bacteremia. Chest x-ray showed basilar atelectasis, difficult to rule out pneumonia, and she does have some interstitial edema. WBC count today is 12.3 hemoglobin is 9.6. Electrolytes are normal however her BUN is 67 creatinine 7.69 Patient was reevaluated today on 09/09/2020, remains intubated and mechanically ventilated, remains in the ICU. She is on assist control rate of 18 tidal volume 450 FiO2 45% PEEP of 5 ABG showed a pO2 of 131 pCO2 of 37 pH of 7.39. Remains on propofol at 55 mcg/kg/m, not requiring any pressors, not requiring any paralytics. Patient had slow weaning yesterday, however she was getting a bit agitated while on mechanical ventilation, did not get a chance to give her a weaning trial, hence we'll try to do that today. My plan is to hold propofol, assess weaning parameters, possibly placed the patient on pressure support of 8 and CPAP, and if tolerated will proceed with extubating the patient. Chest x- ray shows minimal infiltrates especially at the right base. Patient is empirically on antibiotics. WBC count is 14.5 hemoglobin is 8.7 and lites are normal BUN is 34 creatinine 5.01 Reevaluated today on 09/10/2020, patient remains in the ICU, intubated and mechanically ventilated. Patient is extremely slow to wake up, remains lethargic, although she seems to be doing well with a pressure support of 14 and CPAP. I'm a bit reluctant to extubate the patient at this point since she is not fully awake, and I have a feeling that she will not be able to clear her se cretions if extubated early. She was on assist control rate of 18 tidal volume is 450 FiO2 45% PEEP of 5 ABG showed a pO2 of 145 pCO2 of 36 pH of 7.37 I cut down her FiO2 to 45% and transition the patient to a pressure support with CPAP mode of mechanical ventilation planning to hopefully extubated the patient down the line. Patient remains off sedation. Propofol has been off for the last 24 hours. Relative fluids at KVO, tube feeds are on hold at present. Chest x-ray is showing some mild fluid overload, patient will be dialyzed, and the plan is to remove 2 L of fluid today. Left lites are normal renal profile is abnormal with BUN of 47 creatinine 6.81. Her CBC count is 14.5 lobe is 8.2. Blood sugar is in the 70s Reevaluated today on 09/11/2020, patient remains intubated and mechanically ventilated. Her assist control rate is 18 tidal volume is 450 FiO2 45% and PEEP of 5. Patient is hemodynamically stable, not requiring any pressors. Patient is being treated for cardiac arrest and possible aspiration pneumonia. Her ABG today looks great with a pO2 of 136 pCO2 of 38 pH of 7.39. Patient is definitely more awake and arousable this morning, follows simple instructions, and while I'm at bedside, I transition the patient to a pressure support mode of mechanical ventilation with a pressure support of 8 and CPAP. And I'm planning to give the patient a trial of weaning and possibly extubation today. In the meantime her tube feeding was placed on hold and her stomach was suctioned. Patient was noted to move could tidal volume on pressure support of 8, and her respiratory rate was in the teens. After 1 hour of pressure support and CPAP, repeat ABG showed a pO2 of 162 and CO2 of 41 pH of 7.36, hence proceeded to extubating the patient to a nasal cannula. Chest x-ray shows improvement in her bibasilar atelectasis/infiltrates. Small tiny left pleural effusion is suspected CBC showed WBC count of 14.1 hemoglobin of 8.7. leukocytosis noted. Electrolytes are normal bicarb is 20 to and BUN is 32 creatinine 4.68 Patient was reevaluated today on 09/12/2020, patient was extubated yesterday, tolerated the extubation well, scheduled to undergo dialysis again today. Last night I was called about this patient having some stridor. Recommended Decadron, 2 doses were given since last night, and her stridor has completely resolved. Patient is resting in bed, she is on 4 L nasal cannula, O2 sats was 96%. Remains on Lasix remains on hemodialysis. Remains on ice chips, and I would advance her diet to clear diet today. IV fluids remains at KVO. Remains on antibiotics for presumptive aspiration pneumonia. Chest x-ray today showed mostly atelectasis at the bases. Doubt underlying pneumonia. Patient is awake, follows instructions, not requiring any BiPAP anymore. And I will continue to monitor the patient in the ICU for the next 24 hours, and likely transfer to a cardiac floor in the next 24 hours if she continues to do well. Objective - Vital Signs Vital signs: Vital Signs Temp 97.6 F 09/12/20 08:00 Pulse 85 09/12/20 10:00 Resp 18 09/12/20 10:00 BP 90/47 09/12/20 10:00 Pulse Ox 96 09/12/20 10:00 Intake & Output 09/11/20 09/12/20 09/12/20 18:59 06:59 18:59 Intake Total 303 156 65 Output Total 30 5 0 Balance 273 151 65 Weight 86 kg 86 kg Intake: IV 193 156 65 0.9 NS 110 120 50 Ertapenem 0.5 gm In 50 Sodium Chloride 0.9% 50 ml @ 100 mls/hr IVPB DAILY@1500 [facility] Rx#: [id number] pressure bag 33 36 15 Oral 100 Tube Feeding 10 Output: Urine 30 5 0 Other: Voiding Method Indwelling Catheter Indwelling Catheter Indwelling Catheter ABP, PAP, CO, CI - Last Documented Arterial Blood Pressure 115/56 - Exam Physical Exam: Revealed 74-year-old female on 4 L nasal cannula, in no distress. Head: Atraumatic, normocephalic HEENT : PERRLA, EOMI, nonicteric. No neck masses, no JVD, no stridor. Chest:Symmetrical chest expansion, diminished breath sounds at the bases no rhonchi and no wheezes. Cardiac Exam: [Normal S1 and S2, no S3 gallop, 3/6 systolic murmur thought the precordium. Abdomen: [Soft, nontender, no megaly, no rebound, no guarding, normal bowel sounds.] Extremities: [No clubbing trace of bipedal edema, no cyanosis.] AV fistula noted in the left arm. Midline is noted in the right arm. Neurological Exam: Awake, follows simple instructions. Psychiatric: Blunted affect, normal mental status examination, comprehending all instructions. Skin: No rashes. Musculoskeletal: No deformities noted limitation range of motion. - Labs CBC & Chem 7: 09/12/20 03:50 09/12/20 03:50 Labs: Abnormal Lab Results - Last 24 Hours (Table) 09/11/20 09/11/20 09/11/20 Range/Units 12:50 17:43 20:59 WBC (3.8-10.6) k/uL RBC (3.80-5.40) m/uL Hgb (11.4-16.0) gm/dL Hct (34.0-46.0) % MCV (80.0-100.0) fL MCHC (31.0-37.0) g/dL RDW (11.5-15.5) % Neutrophils # (1.3-7.7) k/uL Lymphocytes # (1.0-4.8) k/uL BUN (7-17) mg/dL Creatinine (0.52-1.04) mg/dL Glucose (74-99) mg/dL POC Glucose (mg/dL) 165 H 144 H 143 H (75-99) mg/dL 09/12/20 09/12/20 09/12/20 Range/Units 00:46 03:50 03:50 WBC 12.4 H (3.8-10.6) k/uL RBC 2.79 L (3.80-5.40) m/uL Hgb 8.6 L (11.4-16.0) gm/dL Hct 28.9 L (34.0-46.0) % MCV 103.8 H (80.0-100.0) fL MCHC 29.8 L (31.0-37.0) g/dL RDW 16.0 H (11.5-15.5) % Neutrophils # 10.7 H (1.3-7.7) k/uL Lymphocytes # 0.8 L (1.0-4.8) k/uL BUN 51 H (7-17) mg/dL Creatinine 6.92 H (0.52-1.04) mg/dL Glucose 140 H (74-99) mg/dL POC Glucose (mg/dL) 146 H (75-99) mg/dL 05/15/21 Range/Units 07:14 WBC (3.8-10.6) k/uL RBC (3.80-5.40) m/uL Hgb (11.4-16.0) gm/dL Hct (34.0-46.0) % MCV (80.0-100.0) fL MCHC (31.0-37.0) g/dL RDW (11.5-15.5) % Neutrophils # (1.3-7.7) k/uL Lymphocytes # (1.0-4.8) k/uL BUN (7-17) mg/dL Creatinine (0.52-1.04) mg/dL Glucose (74-99) mg/dL POC Glucose (mg/dL) 204 H (75-99) mg/dL Microbiology - Last 24 Hours (Table) 09/07/20 11:53 Blood Culture - Preliminary Blood No Growth after 96 hours 09/06/20 11:12 Blood Culture - Preliminary Blood No Growth after 120 hours 09/06/20 11:12 Blood Culture - Preliminary Blood No Growth after 120 hours Assessment and Plan Assessment: Acute hypoxic, and acute hypercapnic respiratory failure secondary to cardiac arrest secondary to sepsis and possible septic shock. Secondary to E. coli urinary tract infection and positive bacteremia. Patient was extubated on 09/11/2020. Bibasilar atelectasis, possible aspiration pneumonia. Chronic kidney disease, on hemodialysis. Patient has end-stage renal disease. Acute on chronic diastolic congestive heart failure History of aortic stenosis and previous TAVR. History of hypertension History of paroxysmal atrial fibrillation History of coronary artery disease and previous stent placement in LAD. As well as left circumflex Type 2 diabetes. History of GERD Dyslipidemia Obstructive sleep apnea syndrome on CPAP at night History of diabetes and diabetic neuropathy History of depression Hypovolemic hyponatremia, resolved fully. Stridor secondary to recent intubation and mechanical ventilation, resolved post Decadron treatment. Expected. Recommendation: Titrate oxygen patient is now 4 L nasal cannula. Advanced diet as tolerated. Incentive spirometry. Continue antibiotics for her bacteremia and urinary tract infection secondary to E. coli. Continue GI and DVT prophylaxis. Continue hemodialysis. Patient is scheduled to undergo dialysis again today. Renal diet. 24 hours of close observation in the ICU Overall prognosis remains relatively guarded considering her history and her multiple comorbidities as noted above. We'll continue to follow Time with Patient: Less than 30
[2020-09-12 13:06] LABS: Glucose,Whole Blood 227 mg/dL (75-99)
--- NOTE | 2020-09-12 14:16 | PN ---
PROGRESS NOTE The patient is seen for followup for end-stage renal disease. She was extubated yesterday. Overall she is doing fairly okay. PHYSICAL EXAMINATION: On examination today, blood pressure is 119/60, heart rate 86 per minute, she is afebrile. Examination of the heart S1, S2. Examination of the lungs, bilateral breath sounds are heard. Decreased breath sounds at bases. Abdomen is soft, nontender. Examination of lower extremities shows no evidence of edema. CURRICULUM SUPERVISOR exam shows patient is moving all four extremities. She does follow commands. She recognizes me. LAB: Show sodium 141, potassium 4.7, BUN 51, creatinine 6.9, hemoglobin 8.6 g/dL. ASSESSMENT: 1. End-stage renal disease, on hemodialysis on a Monday, , Monday schedule. The patient will be dialyzed today. 2. Status post cardiac arrest. 3. Escherichia coli bacteremia from urinary tract infection. 4. 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 5. Anemia of chronic disease. 6. Status post cardiac arrest, possibly aspiration as it occurred while patient was eating. PLAN: Hemodialysis today. Continue with the Lasix. Once she is stronger she can start increasing her oral intake. MMODL / IJN: [id number] /
[2020-09-12] MEDS ORDERED: ACETAMINOPHEN IV (For NPO) 1,000 MG in EMPTY BAG 1 BAG IVPB ONE (14:21)
[2020-09-12] MEDS: ERTAPENEM 0.5 GM in SODIUM CHLORIDE 0.9% 50 ML IVPB SCH (15:45)
--- NOTE | 2020-09-12 17:08 | PN ---
PROGRESS NOTE DATE OF SERVICE: 09/12/2020 REASON FOR FOLLOWUP: E coli UTI and bacteremia. INTERVAL HISTORY: Patient is afebrile. The patient is currently breathing comfortably on nasal cannula oxygen. No chest pain, shortness of breath or cough. No abdominal pain and no diarrhea reported. PHYSICAL EXAMINATION: Blood pressure 153/58 with a pulse of 85. Temperature 98. She is 96% on 5 L nasal cannula. General description: The patient is an elderly female lying in bed in no distress. Respiratory system: Unlabored breathing, clear to auscultation anteriorly. Heart S1, S2. Regular rate and rhythm. Abdomen soft, no tenderness. LABS: Hemoglobin 8.1, white count 12.4. DIAGNOSTIC IMPRESSION AND PLAN: 1. Patient with E coli urinary tract infection and bacteremia. Repeat blood cultures have been negative. Patient is covered . 2. White count is showing a downward trending. Did have positive Rosario in sputum. Possible oropharyngeal candidiasis. Diflucan could not be used because of Amiodarone. We will try nystatin swish and swallow and monitor clinical course closely. MMODL / IJN: [id number] /
[2020-09-12 17:52] LABS: Glucose,Whole Blood 161 mg/dL (75-99)
[2020-09-12] MEDS: NYSTATIN 100,000 UNIT/ML SUSP 500,000 UNIT/5 ML CUP PO SCH ×2 (18:33→21:52)
[2020-09-12 21:43] LABS: Glucose,Whole Blood 176 mg/dL (75-99)
[2020-09-13 00:01] LABS: Glucose,Whole Blood 168 mg/dL (75-99)
[2020-09-13] MEDS: INSULIN ASPART (NovoLOG) 100 UNIT/ML VIAL SQ SCH ×4 (00:02→17:46)
[2020-09-13 04:01] LABS: Basophils % (A) 0 %; Eosinophils % (A) 0 %; HCT 30.1 % (34.0-46.0); HGB 9.1 gm/dL (11.4-16.0); Hypochromasia Moderate; Lymphocytes # (A) 0.6 k/uL (1.0-4.8); Lymphocytes % (A) 4 %; MCH 30.8 pg (25.0-35.0); MCHC 30.2 g/dL (31.0-37.0); MCV 102.1 fL (80.0-100.0); Macrocytosis Slight; Monocytes # (A) 0.5 k/uL (0-1.0); Monocytes % (A) 4 %; Neutrophils # (A) 13.5 k/uL (1.3-7.7); Neutrophils % (A) 91 %; Platelet Count 343 k/uL (150-450); RBC 2.94 m/uL (3.80-5.40); RDW 15.9 % (11.5-15.5); WBC 14.9 k/uL (3.8-10.6)
[2020-09-13 04:16] LABS: Calcium 8.9 mg/dL (8.4-10.2); Potassium 4.3 mmol/L (3.5-5.1)
[2020-09-13] MEDS: NOREPINEPHRINE 4 MG in SODIUM CHLORIDE 0.9% 250 ML IV SCH ×2 (06:12→19:36)
[2020-09-13 06:13] LABS: Glucose,Whole Blood 171 mg/dL (75-99)
[2020-09-13] MEDS: INSULIN DETEMIR (LEVEMIR) 100 UNIT/ML SYR SQ SCH ×2 (06:22→20:33)
--- NOTE | 2020-09-13 07:07 | XR ---
EXAMINATION TYPE: XR chest 1V portable DATE OF EXAM: 09/13/2020 COMPARISON: 09/12/2020 HISTORY: Shortness of breath TECHNIQUE: Single frontal view of the chest is obtained. FINDINGS: There is bilateral infiltrate and small effusion with interstitial pattern. Pneumothorax. Heart size stable. Radiopaque density along the lateral margin of the left heart border stable. Posts urgical change of vertebral column. IMPRESSION: 1. Stable left lower lobe infiltrate, small effusion and interstitial pattern correlate for pneumonia otherwise consider CHF.
[2020-09-13] MEDS: IPRATROPIUM-ALBUTEROL 3 ML NEB INHALATION PRN ×3 (07:20→21:33)
[2020-09-13] MEDS: ASPIRIN 81 MG PO SCH (08:49)
[2020-09-13] MEDS: CHOLECALCIFEROL 25 MCG (1000 IU) TABLET PO SCH (08:49)
[2020-09-13] MEDS: CLOPIDOGREL 75 MG TAB PO SCH (08:49)
[2020-09-13] MEDS: FUROSEMIDE 80 MG TAB PO SCH (08:49)
[2020-09-13] MEDS: MAGNESIUM OXIDE 400 MG TAB PO SCH (08:49)
[2020-09-13] MEDS: SEVELAMER 800 MG TAB PO SCH (08:49)
[2020-09-13] MEDS: ACETAMINOPHEN TAB 325 MG TAB PO PRN ×2 (08:49→17:46)
[2020-09-13] MEDS: METOPROLOL SUCCINATE (ER) 50 MG TAB.ER.24H PO SCH (08:50)
[2020-09-13] MEDS: PANTOPRAZOLE 40 MG/10 ML VIAL IVP SCH (08:50)
[2020-09-13] MEDS: DULoxetine HCL 60 MG CAPSULE.DR PO SCH (08:50)
[2020-09-13] MEDS: EZETIMIBE 10 MG TAB PO SCH (08:50)
[2020-09-13] MEDS: AMIODARONE 100 MG TAB PO SCH (08:50)
[2020-09-13] MEDS: NYSTATIN 100,000 UNIT/ML SUSP 500,000 UNIT/5 ML CUP PO SCH ×4 (08:50→20:34)
[2020-09-13] MEDS ORDERED: SUCRALFATE 1 GM TAB PO PRN (09:35)
--- NOTE | 2020-09-13 09:54 | P.PN ---
Subjective This is a 74-year-old female patient of Dr. Farias with past medical history of proximal atrial fibrillation, coronary artery disease status post PA, denies any history of COPD or asthma. Uses CPAP at home frequently. chronic diastolic heart failure, diabetes, hyperlipidemia, hypertension, hypertensive cardiovascular disease, end-stage renal disease on hemodialysis Monday and Monday, aortic stenosis status post TAVR in 2018, with h/o multiple urinary tract infection treated by Dr Borrego who also did cystoscopy on 05/22 done for recurrent UIT followed by bactrim for klebsiella and ecoli uti on 06/07/2020. Patient's urinalysis multidrug-resistant tenderness difficult to treat as outpatient. Dr. Borrego was planning to send the patient can't afford if no improvement seen. She started feeling unwell on Monday and had a full pre scription of doxycycline and home which she started taking. Patient took doxycycline for 2 days with no improvement in sensation and decided to come to ER. Patient does document fever and chills at home. She denies any abdominal pain, diarrhea or constipation. Vitals evaluated in the assisted temp of 101 pulse 84 respiratory rate 18 blood pressure 138/88. Labs refuses this today WBC of 18.8 hemoglobin 10.5 MCV 102 platelet 217, INR 1, sodium 1:30, potassium 5, chloride 86, BUN 59 creatinine 6.7 glucose 219 lactic acid 2.1 and liver enzymes are normal and alkaline phosphatase 134. Urinalysis positive for UTI with positive RBC 175 WBC 182 positive leukocyte esterase and negative nitrites. Chest x-ray suggestive of the stated infiltrate concern for atelectasis versus pneumonia. Repeat chest x-ray will be obtained tomorrow. Continue patient on cefepime 2 g every 8 hours. Patient has sepsis secondary to UTI. IV fluids can cannot be continued as patient is on dialysis and is due for her dialysis. 09/06 patient evaluated at bedside appears much confused than yesterday. His shor t of breath on evaluation. Patient did not get her dialysis yesterday. She is not answering to questions and repeating the phrase" everything is going opposite"patient gets confused easily and is not able to answer suspension appropriate he is oriented 2. Nephrology is evaluated the patient and recommend dialysis today. Vitals checked this morning patient had a temp of 100.5 pulse rate 112 blood pressure 170/74 requiring 1-2 L of oxygen saturating at 94% on assessment patient's blood work today WBC has improved from 18-12.8 hemoglobin is 9.9, platelets [birth year]/1989 sodium has worsened from yesterday dropped to 127, potassium 5.3, chloride 84 bun is 74 creatinine 8.8, glucose 158 alkaline phosphatase is 133. Blood cultures are positive for gram-negative bacilli. Infectious disease consulted. Levofloxacin every 48 hours 500 mg IV Patient evaluated at bedside around 11 in the morning patient was doing well was lying in bed appears a little confused but was able to communicate without any difficulty. Discussed with patient the need for possible rehab which patient was reluctant about. At around 12:38 PM, CODE VIANNEY was called and the patient. He apparently patient was sleeping Herberger and found to choke on food. Patient lost her pulse and became unresponsive. The nurse bedside initiated the CODE BLUE. Patient received 1 dose of epinephrine and bicarb. Pulse was obtained at 12:40 PM. Patient got intubated at 1243 as was noted to be apneic. EKG was obtained that suggested wide-complex tachycardia. Vitals reviewed had a temp of 98, pulse 88 respiratory rate 18 was saturating at 98% on 3 L and currently on 100% FiO2 Blood gas was obtained. PH of 7.2 CO2 was 72 pO2 to 209. CMP this morning was pending, stat labs were ordered in the morning which resulted close to the CODE BLUE suggested sodium of 134 potassium 5.3 chloride 93 BUN 61 creatinine 7.44. Patient received dialysis yesterday. Patient to be moved to the ICU for further management. Pulmonary consulted. 1 g of calcium gluconate given. 1 g of mag sulfate given. Labs ordered currently pending. 09/08 patient currently intubated. On assist control respiratory rate 18 and tidal volume 450 FiO2 45% PEEP of 5. ABG this morning patient had a pH of 7.47 pCO2 improved to 35 from 70 to pO2 109 bicarb 3026. CBC suggestive hemoglobin of 9.6 and C-reactive 0.5. BNP Surgicel and 35 potassium 5 chloride 97, magnesium 2.8 BUN 67 creatinine 7.69. Chest x-ray reviewed suggest basilar at electasis. Blood culture for 24 hours and negative for E. coli. Continue with Invanz per infectious disease. Family at bedside and updated the patient's condition 09/09: Patient evaluated today in the ICU. Still currently intubated. Continues on assist control respiratory rate 18, tidal volume 450, FiO2 45% with a PEEP of 5. ABG today with a pH of 7.39, pCO2 37, pO2 131. Hemoglobin noted to drop slightly to 8.7 today, WBC 14.5, creatinine 5.0, BUN 34, potassium 4.7. Repeat chest x-ray shows stable x-ray, bilateral infiltrate with pleural effusion superimposed venous congestion. Patient noted to have no urine output, she continues on hemodialysis three times a week. Continues on Invanz per infectious diseases recommendations. The cultures show no growth to date. Patient is off propofol, plan to extubate possibly tomorrow. 09/10: Patient evaluated in the ICU still currently intubated and mechanically ventilated. She is on pressure support of 14 and CPAP, still remains lethargic and slow to wake up. Plan to extubate once patient is more awake. Repeat chest x-ray shows slightly decreased lung volume, bibasilar atelectasis consolidation small pleural effusions. Patient will be going for hemodialysis today and laboratory evaluation the WBC 14.5, hemoglobin 8.2, BUN 47, creatinine 6.8 09/11: Patient evaluated this afternoon in the ICU. Patient has a repeat chest x- ray that showed slight improvement from yesterday. Patient was successfully extubated patient is maintained on 5 L nasal cannula saturating 95%. Sputum cultures are growing Rosario albicans she is maintained on Invanz per infectious diseases recommendations. Repeat ABG shows pH 7.36, pCO2 41, pO2 162. Laboratory values showed WBC 14.1, hemoglobin 8.7, creatinine 4.6, BUN 32. Plans for dialysis tomorrow. 09/12: Patient evaluated the bedside, remains in the ICU. Patient was given a trial of weaning yesterday and was successfully extubated. She does not require pressors at this point and she is hemodynamically stable. Blood pressure 129/59, heart rate 89. Laboratory values reveal WBC 12.4, hemoglobin 8.6, BUN 51, creatinine 6.92. Patient did undergo bedside swallow evaluation yesterday upon assessment is recommended the patient remain on ice chips only until patient is a bit stronger and able to clear secretions better. Pertinent medications were changed to IV until swallow is more developed. Repeat chest x-ray showed no interval change and is stable. Patient continues to be covered with Invanz for E. coli bacteremia secondary to urinary source per recommendations from infectio us disease 09/13: Patient evaluated at the bedside in the ICU. Patient is doing well on nasal cannula, she was extubated on 09/11 and is tolerating well. Patient underwent dialysis yesterday without complication. Patient had some mild stridor yesterday, Decadron was given and since stridor has completely resolved. Patient was advanced to clear liquid diet yesterday and is tolerating well. She is more awake and able to clear secretions better. Patient has a positive for Rosario in the sputum, more likely oropharyngeal candidiasis, infectious disease his ordered nystatin swish and swallow. Patient had repeat chest x-ray showed stable left lower lobe infiltrate, small pleural effusion and interstitial pattern. Her vital signs have been stable heart rate of 84, blood pressure 133/44, she's 98% on 4 L via nasal cannula. Will be moved out of the ICU to the cardiac stepdown unit later on today. Objective - Vital Signs Vital signs: Vital Signs Temp 97.7 F 09/13/20 04:00 Pulse 77 09/13/20 07:00 Resp 14 09/13/20 07:00 BP 133/44 09/13/20 07:00 Pulse Ox 98 09/13/20 07:00 Intake & Output 09/12/20 09/13/20 09/13/20 18:59 06:59 18:59 Intake Total 588 120 10 Output Total 2500 5 0 Balance -1912 115 10 Weight 86.4 kg Intake: IV 138 120 10 0.9 NS 120 120 10 pressure bag 18 Oral 450 Output: Urine 0 5 0 Hemodialysis 2500 Other: Voiding Method Indwelling Catheter Indwelling Catheter ABP, PAP, CO, CI - Last Documented Arterial Blood Pressure 132/48 - Exam - Constitutional General appearance: More alert and awake today, sitting up in bed. - EENT Eyes: anicteric sclerae, PERRLA, normal appearance ENT: hearing grossly normal - Neck Neck: no lymphadenopathy, normal ROM, no other, no rigidity, no stridor, no thyromegaly - Respiratory Respiratory: bilateral: Decreased breath sounds, no rhonchi or wheezes - Cardiovascular Rhythm: regular Heart sounds: normal: S1, S2 Abnormal Heart Sounds: 3/6 systolic murmur, no diastolic murmur, no rub, no S3 Gallop, no S4 Gallop, no click - Gastrointestinal General gastrointestinal: normal bowel sounds, soft nontender - Integumentary Integumentary: no rash - Neurologic Neurologic: Awake and alert, answering questions appropriately - Musculoskeletal Musculoskeletal: strength equal bilaterally, generalized weakness - Psychiatric Psychiatric: Alert, awake, answering questions appropriately - Labs CBC & Chem 7: 09/13/20 03:11 09/13/20 03:11 Labs: Abnormal Lab Results - Last 24 Hours (Table) 09/12/20 09/12/20 09/12/20 Range/Units 13:04 17:50 21:41 WBC (3.8-10.6) k/uL RBC (3.80-5.40) m/uL Hgb (11.4-16.0) gm/dL Hct (34.0-46.0) % MCV (80.0-100.0) fL MCHC (31.0-37.0) g/dL RDW (11.5-15.5) % Neutrophils # (1.3-7.7) k/uL Lymphocytes # (1.0-4.8) k/uL BUN (7-17) mg/dL Creatinine (0.52-1.04) mg/dL Glucose (74-99) mg/dL POC Glucose (mg/dL) 227 H 161 H 176 H (75-99) mg/dL 09/13/20 09/13/20 09/13/20 Range/Units 00:00 03:11 03:11 WBC 14.9 H (3.8-10.6) k/uL RBC 2.94 L (3.80-5.40) m/uL Hgb 9.1 L (11.4-16.0) gm/dL Hct 30.1 L (34.0-46.0) % MCV 102.1 H (80.0-100.0) fL MCHC 30.2 L (31.0-37.0) g/dL RDW 15.9 H (11.5-15.5) % Neutrophils # 13.5 H (1.3-7.7) k/uL Lymphocytes # 0.6 L (1.0-4.8) k/uL BUN 44 H (7-17) mg/dL Creatinine 4.62 H (0.52-1.04) mg/dL Glucose 168 H (74-99) mg/dL POC Glucose (mg/dL) 168 H (75-99) mg/dL 09/13/20 Range/Units 06:11 WBC (3.8-10.6) k/uL RBC (3.80-5.40) m/uL Hgb (11.4-16.0) gm/dL Hct (34.0-46.0) % MCV (80.0-100.0) fL MCHC (31.0-37.0) g/dL RDW (11.5-15.5) % Neutrophils # (1.3-7.7) k/uL Lymphocytes # (1.0-4.8) k/uL BUN (7-17) mg/dL Creatinine (0.52-1.04) mg/dL Glucose (74-99) mg/dL POC Glucose (mg/dL) 171 H (75-99) mg/dL Microbiology - Last 24 Hours (Table) 09/07/20 11:53 Blood Culture - Preliminary Blood No Growth after 120 hours 09/06/20 11:12 Blood Culture - Final Blood No Growth after 144 hours 09/06/20 11:12 Blood Culture - Final Blood No Growth after 144 hours Assessment and Plan Plan: 1. Sepsis secondary to UTI. Gram-negative bacteremia Continue Ertapenem per infectious disease's recommendations. Blood culture negative, previous blood culture positive for E. coli 2. Bilateral pleural effusion, small posterior infiltrate consistent with atelectasis. Repeat x-rays show improvement 3 Cardiac arrest unresponsive with loss of pulse CODE BLUE called on 09/07. Secondary to choking on her food. Status was epinephrine and bicarb Initial rhythm on record placed. EKG with wide complex tachycardia. Status post calcium gluconate and 1 g of magnesium sulfate. 4. Acute hypoxic hypercapnic respiratory failure intubated during the CODE BLUE. Likely aspiration. Grinder Chipper consulted. Patient successfully extubated, aspiration precautions in place 5. White complex tachycardia baseline EKG with sinus rhythm with bifascicular lock. Avoid QT prolonging medication. Cardiology consulted. Status post one dose of calcium gluconate. 1 g magnesium. 6. Status post Recurrent UTI, status post cystoscopy, by Dr. Borrego, previous culture positive for E. coli and klebsiella during last cultures chronic prophylactic antibiotics including nitrofurantoin and Mandelamine 4 Oliguria secondary to end-stage kidney disease, making less then 20 mL per day, consult with nephrology, on hemodialysis Monday and Monday. Levy catheter in place 5 End-stage renal disease on hemodialysis Monday and Monday. 6 acute on Chronic diastolic heart failure. Continue hemodialysis. Continue home dose of Lasix at 80 mg twice daily as well as metoprolol 50 mg daily 7 History of aortic stenosis status post TAVR. 8 Hypertension cardiovascular disease. Continue amiodarone 100 mg daily and metoprolol. 10 Paroxysmal atrial fibrillation. Continue amiodarone 100 mg once daily and metoprolol a history of GI bleed no past several years ago, not on any anticoagulation due to increased risk of fall and GI bleeding 11 History of myocardial infarction and coronary artery disease status post LAD stent in July 2017 and left circumflex in August 2017. Continue Toprol-XL 50 mg once daily, and Plavix 12 Diabetes mellitus type 2, insulin requiring. Continue insulin sliding scale. 13 GERD continue Protonix. 14 History of hyperlipidemia continue Zetia 10mg daily 15 Obstructive sleep apnea, on CPAP machine at night, along with O2 supplementation 16. Diabetic peripheral neuropathy continue gabapentin 300 mg twice daily. 17. Recurrent depression. Continue Cymbalta 60 mg orally once daily 18. Metabolic encephalopathy likely secondary to uremia and sepsis. on Dialysis 19 hyponatremia secondary to volume overload. Continue dialysis, Monday, , Monday schedule. Nephrology following the patient 20 oral pharyngeal candidiasis. Continue nystatin swish and swallow DVT prophylaxis. Heparin subcu every 12 hours GI prophylaxis continue Protonix. The above impression and plan of care have been discussed and directed by signing physician. Jossie Negron nurse practitioner acting as scribe for signing physician.
--- NOTE | 2020-09-13 10:34 | PN ---
PROGRESS NOTE Patient is seen for followup for end-stage renal disease. She is currently awake, comfortable, still quite lethargic, not able to eat much, but able to take p.o. medications that are crushed. Patient is complaining of nausea. She has not had a bowel movement for about two days now. She did tolerate dialysis yesterday. We were able to get about 2.5 L off. PHYSICAL EXAMINATION: On examination today, blood pressure was 118/45, heart rate of 90 per minute, patient is afebrile. Examination of the heart S1, S2. Examination of the lungs, decreased breath sounds at bases. Abdomen is soft, nontender, slightly distended. Examination of lower extremities shows no evidence of edema. 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 She is able to move all four extremities. Confused on and off. LAB: Show sodium 138, potassium 4.3, BUN 44, creatinine 4.6, hemoglobin 9.1 g/dL. ASSESSMENT: 1. End-stage renal disease, on hemodialysis on a Monday, , Monday schedule. 2. Status post cardiac arrest, status post extubation two days ago. 3. Escherichia coli bacteremia from urinary tract infection. 4. Chronic kidney disease mineral bone disorder, maintained on Renvela. 5. Anemia of chronic disease maintained on Aranesp. PLAN: Next dialysis on Monday. Patient does not have much urine output. I will discontinue the Lasix. Continue with Aranesp. Continue with antibiotics and add lactulose for constipation. MMODL / IJN: [id number] /
[2020-09-13 11:46] LABS: Glucose,Whole Blood 177 mg/dL (75-99)
[2020-09-13] MEDS: LACTULOSE 20 GM/30 ML CUP PO SCH ×3 (11:53→20:33)
--- NOTE | 2020-09-13 13:16 | P.PN ---
Subjective Progress Note Date: 09/13/20 Principal diagnosis: Cardiac arrest This is a 74-year-old female primarily a patient of Dr. Farias, known history of multiple medical problems including chronic atrial fibrillation, mostly paroxysmal in nature, coronary artery disease, previous OK, history of obstructive sleep apnea on CPAP at home, history of end-stage renal disease on hemodialysis history of aortic stenosis and previous T aVR in 2018. History of multiple urinary tract infections. Patient was admitted on 09/05/2020, her admitting diagnosis was sepsis secondary to urinary tract infection and patient was seen by infectious disease on consultation. Has been on proper antibiotics. Patient has been on Invanz, and she was being followed by many consultants on the case. Initially, the patient was on cefepime but this was later changed to Invanz. And she had multiple positive blood cultures for E. coli. At any rate patient was on the medical floor today, and around 1: 19, patient had a CODE BLUE. CPR was started, apparently patient was feeding at the time she had CODE BLUE. Questionable choking on her hamburger. Patient had no pulse, and went unresponsive. Spontaneous circulation was noted after 1 round of CPR and she was having episodes of apnea. Patient was intubated by SENIOR ACCOUNTANT ANALYST, 12-lead EKG at the time showed sinus tachycardia without any ischemic changes. Patient was eventually placed on mechanical ventilation, and she was transferred to the ICU. I saw the patient shortly after she arrived to the ICU, and reviewed her ABG also reviewed her chest x-ray. Her chest x-ray showed endotracheal tube about 4.8 cm from the level of the nicolás. There was no evidence of infiltrate, minimal atelectasis is noted. ABG showed a pO2 of 219 pCO2 of 72 pH of 7.22, hence her ventilator settings were adjusted by increasing her assist control rate of mechanical ventilation, and drop down her FiO2 to 50%. Repeat ABG is pending. Labs were basically unremarkable except for BUN of 51 creatinine of 5.58, remind you patient is known to have history of chronic renal failure and on hemodialysis. Lactic acid was noted to be at 2.2 and her watson virus PCR was negative. Patient initial complaint on admission was mostly symptoms of weakness with symptoms of urinary tract infection and her initial blood cultures and urine cultures were positive for E. coli. Looking at the chart, patient received 1 dose of epinephrine and 1 amp of bicarb patient was actually intubated at 1243, EKG showed wide complex tachycardia after return of spontaneous circulation. Last dialysis on this patient was yesterday. Patient was reevaluated today on 09/08/2020, remains in the ICU, intubated and mechanically ventilated. Her assist control rate is 18 tidal volume 450 FiO2 45% PEEP of 5 ABG showed a pO2 of 109 pCO2 of 35 pH of 7.47. Patient is on propofol at 30 mcg/kg/m she is off norepinephrine and her IV fluid at KVO. Patient remains on Invanz for her E. coli urinary tract infection and bacteremia. Chest x-ray showed basilar atelectasis, difficult to rule out pneumonia, and she does have some interstitial edema. WBC count today is 12.3 hemoglobin is 9.6. Electrolytes are normal however her BUN is 67 creatinine 7.69 Patient was reevaluated today on 09/09/2020, remains intubated and mechanically ventilated, remains in the ICU. She is on assist control rate of 18 tidal volume 450 FiO2 45% PEEP of 5 ABG showed a pO2 of 131 pCO2 of 37 pH of 7.39. Remains on propofol at 55 mcg/kg/m, not requiring any pressors, not requiring any paralytics. Patient had slow weaning yesterday, however she was getting a bit agitated while on mechanical ventilation, did not get a chance to give her a weaning trial, hence we'll try to do that today. My plan is to hold propofol, assess weaning parameters, possibly placed the patient on pressure support of 8 and CPAP, and if tolerated will proceed with extubating the patient. Chest x- ray shows minimal infiltrates especially at the right base. Patient is empirically on antibiotics. WBC count is 14.5 hemoglobin is 8.7 and lites are normal BUN is 34 creatinine 5.01 Reevaluated today on 09/10/2020, patient remains in the ICU, intubated and mechanically ventilated. Patient is extremely slow to wake up, remains lethargic, although she seems to be doing well with a pressure support of 14 and CPAP. I'm a bit reluctant to extubate the patient at this point since she is not fully awake, and I have a feeling that she will not be able to clear her se cretions if extubated early. She was on assist control rate of 18 tidal volume is 450 FiO2 45% PEEP of 5 ABG showed a pO2 of 145 pCO2 of 36 pH of 7.37 I cut down her FiO2 to 45% and transition the patient to a pressure support with CPAP mode of mechanical ventilation planning to hopefully extubated the patient down the line. Patient remains off sedation. Propofol has been off for the last 24 hours. Relative fluids at KVO, tube feeds are on hold at present. Chest x-ray is showing some mild fluid overload, patient will be dialyzed, and the plan is to remove 2 L of fluid today. Left lites are normal renal profile is abnormal with BUN of 47 creatinine 6.81. Her CBC count is 14.5 lobe is 8.2. Blood sugar is in the 70s Reevaluated today on 09/11/2020, patient remains intubated and mechanically ventilated. Her assist control rate is 18 tidal volume is 450 FiO2 45% and PEEP of 5. Patient is hemodynamically stable, not requiring any pressors. Patient is being treated for cardiac arrest and possible aspiration pneumonia. Her ABG today looks great with a pO2 of 136 pCO2 of 38 pH of 7.39. Patient is definitely more awake and arousable this morning, follows simple instructions, and while I'm at bedside, I transition the patient to a pressure support mode of mechanical ventilation with a pressure support of 8 and CPAP. And I'm planning to give the patient a trial of weaning and possibly extubation today. In the meantime her tube feeding was placed on hold and her stomach was suctioned. Patient was noted to move could tidal volume on pressure support of 8, and her respiratory rate was in the teens. After 1 hour of pressure support and CPAP, repeat ABG showed a pO2 of 162 and CO2 of 41 pH of 7.36, hence proceeded to extubating the patient to a nasal cannula. Chest x-ray shows improvement in her bibasilar atelectasis/infiltrates. Small tiny left pleural effusion is suspected CBC showed WBC count of 14.1 hemoglobin of 8.7. leukocytosis noted. Electrolytes are normal bicarb is 20 to and BUN is 32 creatinine 4.68 Patient was reevaluated today on 09/12/2020, patient was extubated yesterday, tolerated the extubation well, scheduled to undergo dialysis again today. Last night I was called about this patient having some stridor. Recommended Decadron, 2 doses were given since last night, and her stridor has completely resolved. Patient is resting in bed, she is on 4 L nasal cannula, O2 sats was 96%. Remains on Lasix remains on hemodialysis. Remains on ice chips, and I would advance her diet to clear diet today. IV fluids remains at KVO. Remains on antibiotics for presumptive aspiration pneumonia. Chest x-ray today showed mostly atelectasis at the bases. Doubt underlying pneumonia. Patient is awake, follows instructions, not requiring any BiPAP anymore. And I will continue to monitor the patient in the ICU for the next 24 hours, and likely transfer to a cardiac floor in the next 24 hours if she continues to do well. Reevaluated today on 09/13/2020, patient remains in the ICU, her extubation has been successful so far. She is now on 4 L nasal cannula with O2 saturation of 98%. Patient was placed on BiPAP last night mostly because she has a CPAP machine and she did not bring her own. Patient had hemodialysis yesterday, and 2-1/2 L were removed yesterday. Chest x-ray minimal left basilar atelectasis. Overall the patient is doing quite well, and no major cardiac events over the last few days. Patient denies any cough wheezing or shortness of breath denies any nausea vomiting abdominal pain. Hence I would recommend that to transfer the patient out of the ICU to a monitor bed on the cardiac floor he had no plans for dialysis today. The results of his 14.9 hemoglobin is 9.1 electrodes are normal BUN is 44 creatinine 4.62. Objective - Vital Signs Vital signs: Vital Signs Temp 98.5 F 09/13/20 12:00 Pulse 86 09/13/20 12:00 Resp 18 09/13/20 12:00 BP 114/49 09/13/20 12:00 Pulse Ox 95 09/13/20 12:00 Intake & Output 09/12/20 09/13/20 09/13/20 18:59 06:59 18:59 Intake Total 588 120 40 Output Total 2500 5 0 Balance -1911 115 40 Weight 86.4 kg Intake: IV 138 120 40 0.9 NS 120 120 40 pressure bag 18 Oral 450 Output: Urine 0 5 0 Hemodialysis 2500 Other: Voiding Method Indwelling Catheter Indwelling Catheter Indwelling Catheter ABP, PAP, CO, CI - Last Documented Arterial Blood Pressure 132/48 - Exam Physical Exam: Revealed 74-year-old female , in no distress. Head: Atraumatic, normocephalic HEENT : PERRLA, EOMI, nonicteric. No neck masses, no JVD, no stridor. Chest:Symmetrical chest expansion, diminished breath sounds at the bases no rh onchi and no wheezes. Cardiac Exam: [Normal S1 and S2, no S3 gallop, 3/6 systolic murmur thought the precordium. Abdomen: [Soft, nontender, no megaly, no rebound, no guarding, normal bowel sounds.] Extremities: [No clubbing trace of bipedal edema, no cyanosis.] AV fistula noted in the left arm. Midline is noted in the right arm. Neurological Exam: Awake, follows simple instructions. Psychiatric: Blunted affect, normal mental status examination, comprehending all instructions. Skin: No rashes. Musculoskeletal: No deformities , no limitation in range of motion - Labs CBC & Chem 7: 09/13/20 03:11 09/13/20 03:11 Labs: Abnormal Lab Results - Last 24 Hours (Table) 09/12/20 09/12/20 09/13/20 Range/Units 17:50 21:41 00:00 WBC (3.8-10.6) k/uL RBC (3.80-5.40) m/uL Hgb (11.4-16.0) gm/dL Hct (34.0-46.0) % MCV (80.0-100.0) fL MCHC (31.0-37.0) g/dL RDW (11.5-15.5) % Neutrophils # (1.3-7.7) k/uL Lymphocytes # (1.0-4.8) k/uL BUN (7-17) mg/dL Creatinine (0.52-1.04) mg/dL Glucose (74-99) mg/dL POC Glucose (mg/dL) 161 H 176 H 168 H (75-99) mg/dL 09/13/20 09/13/20 09/13/20 Range/Units 03:11 03:11 06:11 WBC 14.9 H (3.8-10.6) k/uL RBC 2.94 L (3.80-5.40) m/uL Hgb 9.1 L (11.4-16.0) gm/dL Hct 30.1 L (34.0-46.0) % MCV 102.1 H (80.0-100.0) fL MCHC 30.2 L (31.0-37.0) g/dL RDW 15.9 H (11.5-15.5) % Neutrophils # 13.5 H (1.3-7.7) k/uL Lymphocytes # 0.6 L (1.0-4.8) k/uL BUN 44 H (7-17) mg/dL Creatinine 4.62 H (0.52-1.04) mg/dL Glucose 168 H (74-99) mg/dL POC Glucose (mg/dL) 171 H (75-99) mg/dL 09/13/20 Range/Units 11:44 WBC (3.8-10.6) k/uL RBC (3.80-5.40) m/uL Hgb (11.4-16.0) gm/dL Hct (34.0-46.0) % MCV (80.0-100.0) fL MCHC (31.0-37.0) g/dL RDW (11.5-15.5) % Neutrophils # (1.3-7.7) k/uL Lymphocytes # (1.0-4.8) k/uL BUN (7-17) mg/dL Creatinine (0.52-1.04) mg/dL Glucose (74-99) mg/dL POC Glucose (mg/dL) 177 H (75-99) mg/dL Microbiology - Last 24 Hours (Table) 09/07/20 11:53 Blood Culture - Preliminary Blood No Growth after 120 hours 09/06/20 11:12 Blood Culture - Final Blood No Growth after 144 hours 09/06/20 11:12 Blood Culture - Final Blood No Growth after 144 hours Assessment and Plan Assessment: Acute hypoxic, and acute hypercapnic respiratory failure secondary to cardiac arrest secondary to sepsis and possible septic shock. Secondary to E. coli urinary tract infection and positive bacteremia. Patient was extubated on 09/11/2020. Bibasilar atelectasis, possible aspiration pneumonia. Chronic kidney disease, on hemodialysis. Patient has end-stage renal disease. Acute on chronic diastolic congestive heart failure History of aortic stenosis and previous TAVR. History of hypertension History of paroxysmal atrial fibrillation History of coronary artery disease and previous stent placement in LAD. As well as left circumflex Type 2 diabetes. History of GERD Dyslipidemia Obstructive sleep apnea syndrome on CPAP at night History of diabetes and diabetic neuropathy History of depression Hypovolemic hyponatremia, resolved fully. Stridor secondary to recent intubation and mechanical ventilation, resolved post Decadron treatment. Expected. Recommendation: Transferred to a monitor bed on the cardiac floor today. Continue to titrate oxygen down. Use BiPAP at night during sleep time only. Continue to advance diet.. Incentive spirometry. Continue antibiotics for her bacteremia and urinary tract infection secondary to E. coli. Continue GI and DVT prophylaxis. Continue hemodialysis. We'll continue to follow Time with Patient: Less than 30
[2020-09-13] MEDS: ERTAPENEM 0.5 GM in SODIUM CHLORIDE 0.9% 50 ML IVPB SCH (16:03)
[2020-09-13 17:16] LABS: Glucose,Whole Blood 174 mg/dL (75-99)
[2020-09-13 18:42] LABS: Glucose,Whole Blood 231 mg/dL (75-99)
--- NOTE | 2020-09-13 19:48 | PN ---
PROGRESS NOTE DATE OF SERVICE: 09/13/2020 REASON FOR FOLLOWUP: E coli UTI and bacteremia. INTERVAL HISTORY: Patient is currently afebrile. Patient is breathing comfortably. The patient denies having any chest pain. No shortness of breath or cough. No abdominal pain or diarrhea. PHYSICAL EXAMINATION: VITAL SIGNS: Blood pressure 155/80, pulse 85, temperature 98.5, she is 95% on room air. GENERAL DESCRIPTION: An elderly female lying in bed in no distress. RESPIRATORY SYSTEM: Unlabored breathing, clear to auscultation anteriorly. HEART: S1, S2. Regular rate and rhythm. ABDOMEN: Soft, no tenderness. LABS: Blood culture repeat has been negative. Hemoglobin 9.8, white count 14.8, BUN of 44, creatinine 4.62. DIAGNOSTIC IMPRESSION AND PLAN: Patient with E coli UTI secondary with secondary bacteremia. The patient did have a CEPHALOSPORIN allergy. Patient is on Invanz which will be continued. White count slight worsening, to be monitored closely. Continue supportive care. MMODL / IJN: [id number] /
[2020-09-14 00:11] LABS: Glucose,Whole Blood 169 mg/dL (75-99)
[2020-09-14] MEDS: INSULIN ASPART (NovoLOG) 100 UNIT/ML VIAL SQ SCH ×4 (00:11→17:47)
[2020-09-14 05:51] LABS: Glucose,Whole Blood 151 mg/dL (75-99)
[2020-09-14] MEDS: SEVELAMER 800 MG TAB PO SCH (06:10)
[2020-09-14] MEDS: INSULIN DETEMIR (LEVEMIR) 100 UNIT/ML SYR SQ SCH ×2 (06:12→21:26)
[2020-09-14] MEDS: IPRATROPIUM-ALBUTEROL 3 ML NEB INHALATION PRN (08:24)
[2020-09-14] MEDS: NOREPINEPHRINE 4 MG in SODIUM CHLORIDE 0.9% 250 ML IV SCH (09:10)
[2020-09-14] MEDS: CLOPIDOGREL 75 MG TAB PO SCH (09:22)
[2020-09-14] MEDS: PANTOPRAZOLE 40 MG/10 ML VIAL IVP SCH (09:22)
[2020-09-14] MEDS: MAGNESIUM OXIDE 400 MG TAB PO SCH (09:22)
[2020-09-14] MEDS: DULoxetine HCL 60 MG CAPSULE.DR PO SCH (09:22)
[2020-09-14] MEDS: METOPROLOL SUCCINATE (ER) 50 MG TAB.ER.24H PO SCH (09:23)
[2020-09-14] MEDS: NYSTATIN 100,000 UNIT/ML SUSP 500,000 UNIT/5 ML CUP PO SCH ×4 (09:23→21:26)
[2020-09-14] MEDS: CHOLECALCIFEROL 25 MCG (1000 IU) TABLET PO SCH (09:23)
[2020-09-14] MEDS: AMIODARONE 100 MG TAB PO SCH (09:23)
[2020-09-14] MEDS: EZETIMIBE 10 MG TAB PO SCH (09:23)
[2020-09-14] MEDS: ASPIRIN 81 MG PO SCH (09:23)
--- NOTE | 2020-09-14 11:25 | PN ---
PROGRESS NOTE Patient is seen for followup for end-stage renal disease. She did have a cardiac arrest and was intubated. She is transferred out of the ICU, extubated and doing fairly well. She continues to be weak and has not been eating much. The patient is maintained on a Monday, , Monday schedule for dialysis. PHYSICAL EXAMINATION: On examination today, blood pressure 138/63, heart rate 78 per minute. She is afebrile. EXAMINATION OF THE HEART: S1, S2. EXAMINATION OF THE LUNGS: Decreased breath sounds at bases. Abdomen is soft, obese, nontender. Examination of lower extremities shows no evidence of edema. CHIPPER exam grossly intact. LABS: Labs are not available from today. Yesterday potassium was 4.3, hemoglobin 9.1. ASSESSMENT: 1. End-stage renal disease, on hemodialysis on a Monday, , Monday schedule. 2. Status post acute hypoxic respiratory failure, status post extubation. 3. Escherichia coli bacteremia from urinary tract infection. 4. Chronic kidney disease mineral bone disorder. 5. Generalized debility. 6. Anemia of chronic disease, maintained on Aranesp. PLAN: Hemodialysis in a.m. Encourage increased oral intake. Continue antibiotics. Continue phosphate binders. MMODL / IJN: [id number] /
[2020-09-14 11:54] LABS: Glucose,Whole Blood 255 mg/dL (75-99)
[2020-09-14] MEDS: DARBEPOETIN ALFA 40 MCG/0.4 ML SYRINGE SQ SCH (12:43)
--- NOTE | 2020-09-14 13:01 | PN ---
PROGRESS NOTE DATE OF SERVICE: 09/14/2020 REASON FOR FOLLOWUP: E coli urinary tract infection and bacteremia. INTERVAL HISTORY: The patient is currently afebrile. The patient is breathing comfortably. Denies any chest pain, no shortness of breath or cough. No abdominal pain or diarrhea. PHYSICAL EXAMINATION: Her blood pressure is 138/63 with a pulse of 78, temperature 98.4. She is 99% on 3 L nasal cannula. General description is an elderly female lying in bed in no distress. RESPIRATORY SYSTEM: Unlabored breathing, clear to auscultation anteriorly. HEART: S1, S2. Regular rate and rhythm. ABDOMEN: Soft, no tenderness. LABS: No new labs have been obtained today. DIAGNOSTIC IMPRESSION AND PLAN: 1. Patient with Escherichia coli urinary tract infection and bacteremia. Repeat blood cultures have been negative on ertapenem. 2. Elevated white count, possibly oropharyngeal candidiasis. Continue nystatin swish and swallow and continue supportive care. MMODL / IJN: [id number] /
[2020-09-14] MEDS: ACETAMINOPHEN TAB 325 MG TAB PO PRN (15:22)
[2020-09-14] MEDS: ERTAPENEM 0.5 GM in SODIUM CHLORIDE 0.9% 50 ML IVPB SCH (15:24)
--- NOTE | 2020-09-14 15:31 | P.PN ---
Subjective Progress Note Date: 09/14/20 HISTORY OF PRESENT ILLNESS This is a 74-year-old female patient of Dr. Farias with past medical history of proximal atrial fibrillation, coronary artery disease status post [place], denies any history of COPD or asthma. Uses CPAP at home frequently. chronic diastolic heart failure, diabetes, hyperlipidemia, hypertension, hypertensive cardiovascular disease, end-stage renal disease on hemodialysis Monday and Monday, aortic stenosis status post TAVR in 2017, with h/o multiple urinary tract infection treated by Dr Borrego who also did cystoscopy on 05/22 done for recurrent UIT followed by bactrim for klebsiella and ecoli uti on 06/07/2020. Patient's urinalysis multidrug-resistant tenderness difficult to treat as outpatient. Dr. Borergo was planning to send the patient can't afford if no improvement seen. She started feeling unwell on Monday and had a full prescription of doxycycline and home which she started taking. Patient took doxycycline for 2 days with no improvement in sensation and decided to come to ER. Patient does document fever and chills at home. She denies any abdominal pain, diarrhea or constipation. Vitals evaluated in the assisted temp of 101 pulse 84 respiratory rate 18 blood pressure 138/88. Labs refuses this today WBC of 18.8 hemoglobin 10.5 MCV 102 platelet 217, INR 1, sodium 1:30, potassium 5, chloride 86, BUN 59 creatinine 6.7 glucose 219 lactic acid 2.1 and liver enzymes are normal and alkaline phosphatase 134. Urinalysis positive for UTI with positive RBC 175 WBC 182 positive leukocyte esterase and negative nitrites. Ch est x-ray suggestive of the stated infiltrate concern for atelectasis versus pneumonia. Repeat chest x-ray will be obtained tomorrow. Continue patient on cefepime 2 g every 8 hours. Patient has sepsis secondary to UTI. IV fluids can cannot be continued as patient is on dialysis and is due for her dialysis. 09/06 patient evaluated at bedside appears much confused than yesterday. His short of breath on evaluation. Patient did not get her dialysis yesterday. She is not answering to questions and repeating the phrase" everything is going opposite"patient gets confused easily and is not able to answer suspension appropriate he is oriented 2. Nephrology is evaluated the patient and recom mend dialysis today. Vitals checked this morning patient had a temp of 100.5 pulse rate 112 blood pressure 170/74 requiring 1-2 L of oxygen saturating at 94% on assessment patient's blood work today WBC has improved from 18-12.8 hemoglobin is 9.9, platelets [birth year]/1989 sodium has worsened from yesterday dropped to 127, potassium 5.3, chloride 84 bun is 74 creatinine 8.8, glucose 158 alkaline phosphatase is 133. Blood cultures are positive for gram-negative bacilli. Infectious disease consulted. Levofloxacin every 48 hours 500 mg IV Patient evaluated at bedside around 11 in the morning patient was doing well was lying in bed appears a little confused but was able to communicate with out any difficulty. Discussed with patient the need for possible rehab which patient was reluctant about. At around 12:38 PM, [facility]OR[facility] FAITH was called and the patient. He apparently patient was sleeping Herberger and found to choke on food. Patient lost her pulse and became unresponsive. The nurse bedside initiated the CODE BLUE. Patient received 1 dose of epinephrine and bicarb. Pulse was o btained at 12:40 PM. Patient got intubated at 1243 as was noted to be apneic. EKG was obtained that suggested wide-complex tachycardia. Vitals reviewed had a temp of 98, pulse 88 respiratory rate 18 was saturating at 98% on 3 L and currently on 100% FiO2 Blood gas was obtained. PH of 7.2 CO2 was 72 pO2 to 209. CMP this morning was pending, stat labs were ordered in the morning which resulted close to the CODE BLUE suggested sodium of 134 potassium 5.3 chloride 93 BUN 61 creatinine 7.44. Patient received dialysis yesterday. Patient to be moved to the ICU for further management. Pulmonary consulted. 1 g of calcium gluconate given. 1 g of mag sulfate given. Labs ordered currently pending. 09/08 patient currently intubated. On assist control respiratory rate 18 and tidal volume 450 FiO2 45% PEEP of 5. ABG this morning patient had a pH of 7.47 pCO2 improved to 35 from 70 to pO2 109 bicarb 3026. CBC suggestive hemoglobin of 9.6 and C-reactive 0.5. BNP Surgicel and 35 potassium 5 chloride 97, magnesium 2.8 BUN 67 creatinine 7.69. Chest x-ray reviewed suggest basilar atelectasis. Blood culture for 24 hours and negative for E. coli. Continue with Invanz per infectious disease. Family at bedside and updated the patient's condition 09/09: Patient evaluated today in the ICU. Still currently intubated. Continues on assist control respiratory rate 18, tidal volume 450, FiO2 45% with a PEEP of 5. ABG today with a pH of 7.39, pCO2 37, pO2 131. Hemoglobin noted to drop slightly to 8.7 today, WBC 14.5, creatinine 5.0, BUN 34, potassium 4.7. Repeat chest x-ray shows stable x-ray, bilateral infiltrate with pleural effusion superimposed venous congestion. Patient noted to have no urine output, she continues on hemodialysis three times a week. Continues on Invanz per infectious diseases recommendations. The cultures show no growth to date. Patient is off propofol, plan to extubate possibly tomorrow. 09/10: Patient evaluated in the ICU still currently intubated and mechanically ventilated. She is on pressure support of 14 and CPAP, still remains lethargic and slow to wake up. Plan to extubate once patient is more awake. Repeat chest x-ray shows slightly decreased lung volume, bibasilar atelectasis consolidation small pleural effusions. Patient will be going for hemodialysis today and laboratory evaluation the WBC 14.5, hemoglobin 8.2, BUN 47, creatinine 6.8 09/11: Patient evaluated this afternoon in the ICU. Patient has a repeat chest x- ray that showed slight improvement from yesterday. Patient was successfully extubated patient is maintained on 5 L nasal cannula saturating 95%. Sputum cultures are growing Rosario albicans she is maintained on Invanz per infectious diseases recommendations. Repeat ABG shows pH 7.36, pCO2 41, pO2 162. Lab oratory values showed WBC 14.1, hemoglobin 8.7, creatinine 4.6, BUN 32. Plans for dialysis tomorrow. 09/12: Patient evaluated the bedside, remains in the ICU. Patient was given a trial of weaning yesterday and was successfully extubated. She does not require pressors at this point and she is hemodynamically stable. Blood pressure 129/59, heart rate 89. Laboratory values reveal WBC 12.4, hemoglobin 8.6, BUN 51, creatinine 6.92. Patient did undergo bedside swallow evaluation yesterday upon assessment is recommended the patient remain on ice chips only until patient is a bit stronger and able to clear secretions better. Pertinent medications were changed to IV until swallow is more developed. Repeat chest x-ray showed no interval change and is stable. Patient continues to be covered with Invanz for E. coli bacteremia secondary to urinary source per recommendations from infectious disease 09/13: Patient evaluated at the bedside in the ICU. Patient is doing well on nasal cannula, she was extubated on 09/11 and is tolerating well. Patient underwent dialysis yesterday without complication. Patient had some mild stridor yesterday, Decadron was given and since stridor has completely resolved. Patient was advanced to clear liquid diet yesterday and is tolerating well. She is more awake and able to clear secretions better. Patient has a positive for Rosario in the sputum, more likely oropharyngeal candidiasis, infectious disease his ordered nystatin swish and swallow. Patient had repeat chest x-ray showed stable left lower lobe infiltrate, small pleural effusion and inte rstitial pattern. Her vital signs have been stable heart rate of 84, blood pressure 133/44, she's 98% on 4 L via nasal cannula. Will be moved out of the ICU to the cardiac stepdown unit later on today. 09/14: Patient continues to have significant weakness but more awake and alert. She states she occasionally has coughing with food. She is complaining of abdominal pain when she coughs only. She states she has not been sleeping area and patient underwent hemodialysis 2 yesterday. No lower extremity edema. PT and OT consults added. Melatonin added. Patient is to go for modified barium s wallow today. Patient has been afebrile, heart rate 72, blood pressure 138/60, pulse ox 96% on 3 L nasal cannula. Blood sugars have been running between 151 and 231. Repeat lab work ordered for tomorrow. REVIEW OF SYSTEMS Constitutional: No fever, no chills, no night sweats. No weight change. Reports weakness, reports fatigue report lethargy. Reports daytime sleepiness. EENT: No headache. No blurred vision or double vision, no loss of vision. No loss of Hearing, no ringing in the ears, no dizziness. No nasal drainage or congestion. No epistaxis. No sore throat. Lungs: Reports shortness of breath, cough, no sputum production. No wheezing. Cardiovascular: No chest pain, no lower extremity edema. No palpitations. No paroxysmal nocturnal dyspnea. No orthopnea. No lightheadedness or dizziness. No syncopal episodes. Abdominal: No abdominal pain. No nausea, vomiting. No diarrhea. No constipation. No bloody or tarry stools.. No loss of appetite. Genitourinary: No dysuria, increased frequency, urgency. No urinary retention. Musculoskeletal: No myalgias. No muscle weakness, no gait dysfunction, no frequent falls. No back pain. No neck pain. Integumentary: No wounds, no lesions. No rash or pruritus. No unusual bruising. No change in hair or nails. Neurologic: No aphasia. No facial droop. Improved change in mentation. No head injury. No headache. No paralysis. No paresthesia. Psychiatric: No depression. No anxiety. No mood swings. Reports insomnia Endocrine: No abnormal blood sugars. No weight change. No excessive sweating o r thirst. No cold intolerance. PHYSICAL EXAMINATION Gen: This is an obese 74-year-old female. Patient is sitting up in bed and appears to be comfortable at rest. HEENT: Head is atraumatic, normocephalic. Pupils equal, round. Sclerae is anicteric. NECK: Supple. No JVD. No lymphadenopathy. No thyromegaly. LUNGS: Clear to auscultation. No wheezes or rhonchi. No intercostal retractions. HEART: Regular rate and rhythm. 3/6 systolic murmur. ABDOMEN: Soft. Bowel sounds are present. No masses. No tenderness. EXTREMITIES: No pedal edema. No calf tenderness. NEUROLOGICAL: Patient is awake, alert and oriented x3. Cranial nerves 2 through 12 are grossly intact. ASSESSMENT AND PLAN 1. Sepsis secondary to E. coli UTI and E. coli bacteremia Continue Ertapenem per infectious disease's recommendations. Blood culture negative, previous blood culture positive for E. coli 2. Bilateral pleural effusion, small posterior infiltrate consistent with atelectasis. Repeat x-rays show improvement 3. Cardiac arrest unresponsive with loss of pulse CODE BLUE called on 09/07. Secondary to choking on her food. Status was epinephrine and bicarb Initial rhythm on record placed. EKG with wide complex tachycardia. Status post calciu m gluconate and 1 g of magnesium sulfate. 4. Acute hypoxic hypercapnic respiratory failure intubated during the CODE BLUE. Likely aspiration. [employer] consulted. Patient successfully extubated, aspiration precautions in place 5. Wide complex tachycardia baseline EKG with sinus rhythm with bifascicular lock. Avoid QT prolonging medication. Cardiology consulted. Status post one dose of calcium gluconate. 1 g magnesium. 6. Status post Recurrent UTI, status post cystoscopy, by Dr. Borrego, previous culture positive for E. coli and klebsiella during last cultures chronic prophylactic antibiotics including nitrofurantoin and Mandelamine 7. Oliguria secondary to end-stage kidney disease, making less then 20 mL per day, consult with nephrology, on hemodialysis Monday and Monday. Levy catheter in place 8. End-stage renal disease on hemodialysis Monday and Monday. 9. Acute on chronic diastolic heart failure. Continue hemodialysis. Continue home dose of Lasix at 80 mg twice daily as well as metoprolol 50 mg daily 10. History of aortic stenosis status post TAVR. 11. Hypertension cardiovascular disease. Continue amiodarone 100 mg daily and metoprolol. 12. Paroxysmal atrial fibrillation. Continue amiodarone 100 mg once daily and metoprolol a history of GI bleed no past several years ago, not on any anticoagulation due to increased risk of fall and GI bleeding 13. History of myocardial infarction and coronary artery disease status post LAD stent in July 2017 and left circumflex in August 2017. Continue Toprol-XL 50 mg once daily, and Plavix 14. Diabetes mellitus type 2, insulin requiring. Continue insulin sliding scale. 15. GERD continue Protonix. 16. History of hyperlipidemia continue Zetia 10mg daily 17. Obstructive sleep apnea, on CPAP machine at night, along with O2 supplementation 18. Diabetic peripheral neuropathy continue gabapentin 300 mg twice daily. 19. Recurrent depression. Continue Cymbalta 60 mg orally once daily 20. Metabolic encephalopathy likely secondary to uremia and sepsis. on Dialys is 21. Hyponatremia secondary to volume overload. Continue dialysis, Monday, , Monday schedule. Nephrology following the patient 22. Oral pharyngeal candidiasis. Continue nystatin swish and swallow 23. DVT prophylaxis. Heparin subcu every 12 hours 24. GI prophylaxis continue Protonix. 25. COVID-19 testing negative. Patient has been hospitalized during a pandemic. DISCHARGE PLAN [facility] or [facility] of . Impression and plan of care have been directed as dictated by the signing physician. Jessenia Gonzalez nurse practitioner acting as scribe for signing physician. Objective - Vital Signs Vital signs: Vital Signs Temp 98.4 F 09/14/20 08:00 Pulse 86 09/14/20 08:32 Resp 18 09/14/20 08:00 BP 138/63 09/14/20 08:00 Pulse Ox 99 09/14/20 08:00 Intake & Output 09/13/20 09/14/20 09/14/20 18:59 06:59 18:59 Intake Total 756 Output Total 0 0 Balance 756 0 Weight 94.347 kg Intake: IV 40 0.9 NS 40 Oral 716 Output: Urine 0 0 Other: Voiding Method Indwelling Catheter Diaper Diaper # Voids 0 # Bowel Movements 0 ABP, PAP, CO, CI - Last Documented Arterial Blood Pressure 132/48 - Labs CBC & Chem 7: 09/13/20 03:11 09/13/20 03:11 Labs: Abnormal Lab Results - Last 24 Hours (Table) 09/13/20 09/13/20 09/13/20 Range/Units 11:44 17:15 18:40 POC Glucose (mg/dL) 177 H 174 H 231 H (75-99) mg/dL 09/14/20 09/14/20 Range/Units 00:10 05:50 POC Glucose (mg/dL) 169 H 151 H (75-99) mg/dL Microbiology - Last 24 Hours (Table) 09/07/20 11:53 Blood Culture - Final Blood No Growth after 144 hours
--- NOTE | 2020-09-14 15:34 | P.PN ---
Subjective Progress Note Date: 09/14/20 Principal diagnosis: Cardiac arrest This is a 74-year-old female primarily a patient of Dr. Farias, known history of multiple medical problems including chronic atrial fibrillation, mostly paroxysmal in nature, coronary artery disease, previous [place], history of obstructive sleep apnea on CPAP at home, history of end-stage renal disease on hemodialysis history of aortic stenosis and previous T aVR in 2018. History of multiple urinary tract infections. Patient was admitted on 09/05/2020, her admitting diagnosis was sepsis secondary to urinary tract infection and patient was seen by infectious disease on consultation. Has been on proper antibiotics. Patient has been on Invanz, and she was being followed by many consultants on the case. Initially, the patient was on cefepime but this was later changed to Invanz. And she had multiple positive blood cultures for E. coli. At any rate patient was on the medical floor today, and around 1: 19, patient had a CODE BLUE. CPR was started, apparently patient was feeding at the time she had CODE BLUE. Questionable choking on her hamburger. Patient had no pulse, and went unresponsive. Spontaneous circulation was noted after 1 round of CPR and she was having episodes of apnea. Patient was intubated by [employer], 12-lead EKG at the time showed sinus tachycardia without any ischemic changes. Patient was eventually placed on mechanical ventilation, and she was transferred to the ICU. I saw the patient shortly after she arrived to the ICU, and reviewed her ABG also reviewed her chest x-ray. Her chest x-ray showed endotracheal tube about 4.8 cm from the level of the nicolás. There was no evidence of infiltrate, minimal atelectasis is noted. ABG showed a pO2 of 219 pCO2 of 72 pH of 7.22, hence her ventilator settings were adjusted by increasing her assist control rate of mechanical ventilation, and drop down her FiO2 to 50%. Repeat ABG is pending. Labs were basically unremarkable except for BUN of 51 creatinine of 5.58, remind you patient is known to have history of chronic renal failure and on hemodialysis. Lactic acid was noted to be at 2.2 and her watson virus PCR was negative. Patient initial complaint on admission was mostly symptoms of weakness with symptoms of urinary tract infection and her initial blood cultures and urine cultures were positive for E. coli. Looking at the chart, patient received 1 dose of epinephrine and 1 amp of bicarb patient was actually intubated at 1243, EKG showed wide complex tachycardia after return of spontaneous circulation. Last dialysis on this patient was yesterday. Patient was reevaluated today on 09/08/2020, remains in the ICU, intubated and mechanically ventilated. Her assist control rate is 18 tidal volume 450 FiO2 45% PEEP of 5 ABG showed a pO2 of 109 pCO2 of 35 pH of 7.47. Patient is on propofol at 30 mcg/kg/m she is off norepinephrine and her IV fluid at KVO. Patient remains on Invanz for her E. coli urinary tract infection and bacteremia. Chest x-ray showed basilar atelectasis, difficult to rule out pneumonia, and she does have some interstitial edema. WBC count today is 12.3 hemoglobin is 9.6. Electrolytes are normal however her BUN is 67 creatinine 7.69 Patient was reevaluated today on 09/09/2020, remains intubated and mechanically ventilated, remains in the ICU. She is on assist control rate of 18 tidal volume 450 FiO2 45% PEEP of 5 ABG showed a pO2 of 131 pCO2 of 37 pH of 7.39. Remains on propofol at 55 mcg/kg/m, not requiring any pressors, not requiring any paralytics. Patient had slow weaning yesterday, however she was getting a bit agitated while on mechanical ventilation, did not get a chance to give her a weaning trial, hence we'll try to do that today. My plan is to hold propofol, assess weaning parameters, possibly placed the patient on pressure support of 8 and CPAP, and if tolerated will proceed with extubating the patient. Chest x- ray shows minimal infiltrates especially at the right base. Patient is empirically on antibiotics. WBC count is 14.5 hemoglobin is 8.7 and lites are normal BUN is 34 creatinine 5.01 Reevaluated today on 09/10/2020, patient remains in the ICU, intubated and mechanically ventilated. Patient is extremely slow to wake up, remains lethargic, although she seems to be doing well with a pressure support of 14 and CPAP. I'm a bit reluctant to extubate the patient at this point since she is not fully awake, and I have a feeling that she will not be able to clear her s ecretions if extubated early. She was on assist control rate of 18 tidal volume is 450 FiO2 45% PEEP of 5 ABG showed a pO2 of 145 pCO2 of 36 pH of 7.37 I cut down her FiO2 to 45% and transition the patient to a pressure support with CPAP mode of mechanical ventilation planning to hopefully extubated the patient down the line. Patient remains off sedation. Propofol has been off for the last 24 hours. Relative fluids at KVO, tube feeds are on hold at present. Chest x-ray is showing some mild fluid overload, patient will be dialyzed, and the plan is to remove 2 L of fluid today. Left lites are normal renal profile is abnormal with BUN of 47 creatinine 6.81. Her CBC count is 14.5 lobe is 8.2. Blood sugar is in the 70s Reevaluated today on 09/11/2020, patient remains intubated and mechanically ventilated. Her assist control rate is 18 tidal volume is 450 FiO2 45% and PEEP of 5. Patient is hemodynamically stable, not requiring any pressors. Patient is being treated for cardiac arrest and possible aspiration pneumonia. Her ABG today looks great with a pO2 of 136 pCO2 of 38 pH of 7.39. Patient is definitely more awake and arousable this morning, follows simple instructions, and while I'm at bedside, I transition the patient to a pressure support mode of mechanical ventilation with a pressure support of 8 and CPAP. And I'm planning to give the patient a trial of weaning and possibly extubation today. In the meantime her tube feeding was placed on hold and her stomach was suctioned. Patient was noted to move could tidal volume on pressure support of 8, and her respiratory rate was in the teens. After 1 hour of pressure support and CPAP, repeat ABG showed a pO2 of 162 and CO2 of 41 pH of 7.36, hence proceeded to extubating the patient to a nasal cannula. Chest x-ray shows improvement in her bibasilar atelectasis/infiltrates. Small tiny left pleural effusion is suspected CBC showed WBC count of 14.1 hemoglobin of 8.7. leukocytosis noted. Electrolytes are normal bicarb is 20 to and BUN is 32 creatinine 4.68 Patient was reevaluated today on 09/12/2020, patient was extubated yesterday, tolerated the extubation well, scheduled to undergo dialysis again today. Last night I was called about this patient having some stridor. Recommended Decadron, 2 doses were given since last night, and her stridor has completely resolved. Patient is resting in bed, she is on 4 L nasal cannula, O2 sats was 96%. Remains on Lasix remains on hemodialysis. Remains on ice chips, and I would advance her diet to clear diet today. IV fluids remains at KVO. Remains on antibiotics for presumptive aspiration pneumonia. Chest x-ray today showed mostly atelectasis at the bases. Doubt underlying pneumonia. Patient is awake, follows instructions, not requiring any BiPAP anymore. And I will continue to monitor the patient in the ICU for the next 24 hours, and likely transfer to a cardiac floor in the next 24 hours if she continues to do well. Reevaluated today on 09/13/2020, patient remains in the ICU, her extubation has been successful so far. She is now on 4 L nasal cannula with O2 saturation of 98%. Patient was placed on BiPAP last night mostly because she has a CPAP machine and she did not bring her own. Patient had hemodialysis yesterday, and 2-1/2 L were removed yesterday. Chest x-ray minimal left basilar atelectasis. Overall the patient is doing quite well, and no major cardiac events over the last few days. Patient denies any cough wheezing or shortness of breath denies any nausea vomiting abdominal pain. Hence I would recommend that to transfer the patient out of the ICU to a monitor bed on the cardiac floor he had no plans for dialysis today. The results of his 14.9 hemoglobin is 9.1 electrodes are normal BUN is 44 creatinine 4.62. On 09/14/2020 patient seen in follow-up on medical surgical floor. She is awake and alert, she is resting comfortably in bed, currently on 3 L of oxygen her pulse ox of 96%, she's been wearing a BiPAP support at bedtime with pressures of 12 and 6 and FiO2 of 35%, she has been afebrile, she's had no complaints of chest discomfort, no significant cough or phlegm production. Patient had a hemodialysis treatment on 09/12/2020 would removal of 2.5 L of fluid. Today's labs have been reviewed, white blood cell count is 14.9, hemoglobin is 9.1, electrolytes were within normal limits, her BUN was 44, creatinine is 4.62. Patient remains on Invanz, and her urine and blood cultures showed E. coli. ID service is following and managing the antibiotics. Objective - Vital Signs Vital signs: Vital Signs Temp 98.1 F 09/14/20 12:00 Pulse 72 09/14/20 14:00 Resp 18 09/14/20 14:00 BP 138/60 09/14/20 12:00 Pulse Ox 96 09/14/20 12:00 Intake & Output 09/13/20 09/14/20 09/14/20 18:59 06:59 18:59 Intake Total 756 120 Output Total 0 0 Balance 756 0 120 Weight 94.347 kg 94.347 kg Intake: IV 40 0.9 NS 40 Oral 716 120 Output: Urine 0 0 Other: Voiding Method Indwelling Catheter Diaper Diaper # Voids 0 # Bowel Movements 0 ABP, PAP, CO, CI - Last Documented Arterial Blood Pressure 132/48 - Exam GENERAL EXAM: Alert, very pleasant, 74-year-old white female, on 3 L of oxygen and the pulse ox of 99%, resting in bed comfortable in no apparent distress. HEAD: Normocephalic/atraumatic. EYES: Normal reaction of pupils, equal size. Conjunctiva pink, sclera white. NOSE: Clear with pink turbinates. THROAT: No erythema or exudates. NECK: No masses, no JVD, no thyroid enlargement, no adenopathy. CHEST: No chest wall deformity. Symmetrical expansion. LUNGS: Equal air entry with diminished breath sounds and mild crackles at the bases CVS: Regular rate and rhythm, normal S1 and S2, no gallops, no murmurs, no rubs ABDOMEN: Soft, nontender. No hepatosplenomegaly, normal bowel sounds, no guarding or rigidity. EXTREMITIES: No clubbing, no edema, no cyanosis, 2+ pulses and upper and lower extremities. MUSCULOSKELETAL: Muscle strength and tone normal. SPINE: No scoliosis or deformity SKIN: No rashes CENTRAL NERVOUS SYSTEM: Alert and oriented -3. No focal deficits, tone is normal in all 4 extremities. PSYCHIATRIC: Alert and oriented -3. Appropriate affect. Intact judgment and insight. - Labs CBC & Chem 7: 09/13/20 03:11 09/13/20 03:11 Labs: Abnormal Lab Results - Last 24 Hours (Table) 09/13/20 09/13/20 09/14/20 Range/Units 17:15 18:40 00:10 POC Glucose (mg/dL) 174 H 231 H 169 H (75-99) mg/dL 09/14/20 09/14/20 Range/Units 05:50 11:53 POC Glucose (mg/dL) 151 H 255 H (75-99) mg/dL Microbiology - Last 24 Hours (Table) 09/07/20 11:53 Blood Culture - Final Blood No Growth after 144 hours Assessment and Plan Plan: Assessment: #1. Acute hypoxic and acute hypercapnic respiratory failure secondary to cardiac arrest due to sepsis and possible septic shock. Patient was placed on mechanical ventilator, and successfully weaned and extubated on 09/11/2020 #2. Sepsis related to E. coli urinary tract infection and positive bacteremia #3. Chronic kidney disease on hemodialysis #4. Acute on chronic diastolic CHF #5. History of aortic stenosis and previous [place] #6. History of hypertension #7. History of paroxysmal A. fib #8. History of coronary artery disease and previous stent placement in the LAD and the left circumflex #9. Type 2 diabetes mellitus #10. History of GERD/reflux #11. Dyslipidemia #12. Obstructive sleep apnea on CPAP #13. History of diabetes and diabetic neuropathy #14. History of depression #15. Stridor secondary to recent intubation and mechanical ventilation, resolved Plan: Antibiotics per ID service recommendations Breathing comfortably No fever or chills Nephrology is following and patient is due to be dialyzed No acute events overnight No worsening dyspnea Continue weaning FiO2, BiPAP support at bedtime and as needed We'll continue to follow I performed a history & physical examination of the patient and discussed their management with my nurse practitioner, Pinky Salas. I reviewed the nurse practitioner's note and agree with the documented findings and plan of care. Lung sounds are positive for bibasilar crackles. The findings and the impression was discussed with the patient. I attest to the documentation by the nurse practitioner. Time with Patient: Less than 30
[2020-09-14 17:45] LABS: Glucose,Whole Blood 225 mg/dL (75-99)
[2020-09-14] MEDS: MELATONIN 3 MG TABLET PO SCH (21:26)
[2020-09-14 23:57] LABS: Glucose,Whole Blood 267 mg/dL (75-99)
[2020-09-15] MEDS: INSULIN ASPART (NovoLOG) 100 UNIT/ML VIAL SQ SCH ×4 (00:15→17:37)
[2020-09-15 06:18] LABS: Glucose,Whole Blood 193 mg/dL (75-99)
[2020-09-15] MEDS: INSULIN DETEMIR (LEVEMIR) 100 UNIT/ML SYR SQ SCH ×2 (06:28→20:51)
[2020-09-15] MEDS: SEVELAMER 800 MG TAB PO SCH (06:29)
[2020-09-15 07:58] LABS: HCT 27.4 % (34.0-46.0); Hypochromasia Slight; MCH 33.2 pg (25.0-35.0); MCV 100.5 fL (80.0-100.0); Macrocytosis Slight; Mean Platelet Volume 8.7; Platelet Count 319 k/uL (150-450); RBC 2.73 m/uL (3.80-5.40); RDW 15.7 % (11.5-15.5); WBC 12.4 k/uL (3.8-10.6)
[2020-09-15 08:07] LABS: Calcium 8.3 mg/dL (8.4-10.2); Potassium 4.9 mmol/L (3.5-5.1)
[2020-09-15] MEDS: MAGNESIUM OXIDE 400 MG TAB PO SCH (08:54)
[2020-09-15] MEDS: CLOPIDOGREL 75 MG TAB PO SCH (08:54)
[2020-09-15] MEDS: METOPROLOL SUCCINATE (ER) 50 MG TAB.ER.24H PO SCH (08:54)
[2020-09-15] MEDS: DULoxetine HCL 60 MG CAPSULE.DR PO SCH (08:54)
[2020-09-15] MEDS: ASPIRIN 81 MG PO SCH (08:54)
[2020-09-15] MEDS: PANTOPRAZOLE 40 MG TABLET PO SCH (08:54)
[2020-09-15] MEDS: AMIODARONE 100 MG TAB PO SCH (08:55)
[2020-09-15] MEDS: CHOLECALCIFEROL 25 MCG (1000 IU) TABLET PO SCH (08:55)
[2020-09-15] MEDS: EZETIMIBE 10 MG TAB PO SCH (08:55)
[2020-09-15] MEDS: NYSTATIN 100,000 UNIT/ML SUSP 500,000 UNIT/5 ML CUP PO SCH ×4 (08:55→20:51)
--- NOTE | 2020-09-15 10:29 | P.PN ---
Subjective Progress Note Date: 09/15/20 HISTORY OF PRESENT ILLNESS This is a 74-year-old female patient of Dr. Farias with past medical history of proximal atrial fibrillation, coronary artery disease status post WI, denies any history of COPD or asthma. Uses CPAP at home frequently. chronic diastolic heart failure, diabetes, hyperlipidemia, hypertension, hypertensive cardiovascular disease, end-stage renal disease on hemodialysis Monday and Monday, aortic stenosis status post TAVR in 2017, with h/o multiple urinary tract infection treated by Dr Borrego who also did cystoscopy on 05/22 done for recurrent UIT followed by bactrim for klebsiella and ecoli uti on 06/07/2020. Patient's urinalysis multidrug-resistant tenderness difficult to treat as outpatient. Dr. Borrego was planning to send the patient can't afford if no improvement seen. She started feeling unwell on Monday and had a full prescription of doxycycline and home which she started taking. Patient took doxycycline for 2 days with no improvement in sensation and decided to come to ER. Patient does document fever and chills at home. She denies any abdominal pain, diarrhea or constipation. Vitals evaluated in the assisted temp of 101 pulse 84 respiratory rate 18 blood pressure 138/88. Labs refuses this today WBC of 18.8 hemoglobin 10.5 MCV 102 platelet 217, INR 1, sodium 1:30, potassium 5, chloride 86, BUN 59 creatinine 6.7 glucose 219 lactic acid 2.1 and liver enzymes are normal and alkaline phosphatase 134. Urinalysis positive for UTI with positive RBC 175 WBC 182 positive leukocyte esterase and negative nitrites. Ch est x-ray suggestive of the stated infiltrate concern for atelectasis versus pneumonia. Repeat chest x-ray will be obtained tomorrow. Continue patient on cefepime 2 g every 8 hours. Patient has sepsis secondary to UTI. IV fluids can cannot be continued as patient is on dialysis and is due for her dialysis. 09/06 patient evaluated at bedside appears much confused than yesterday. His short of breath on evaluation. Patient did not get her dialysis yesterday. She is not answering to questions and repeating the phrase" everything is going opposite"patient gets confused easily and is not able to answer suspension appropriate he is oriented 2. Nephrology is evaluated the patient and recom mend dialysis today. Vitals checked this morning patient had a temp of 100.5 pulse rate 112 blood pressure 170/74 requiring 1-2 L of oxygen saturating at 94% on assessment patient's blood work today WBC has improved from 18-12.8 hemoglobin is 9.9, platelets 05[birth year]/1989 sodium has worsened from yesterday dropped to 127, potassium 5.3, chloride 84 bun is 74 creatinine 8.8, glucose 158 alkaline phosphatase is 133. Blood cultures are positive for gram-negative bacilli. Infectious disease consulted. Levofloxacin every 48 hours 500 mg IV Patient evaluated at bedside around 11 in the morning patient was doing well was lying in bed appears a little confused but was able to communicate with out any difficulty. Discussed with patient the need for possible rehab which patient was reluctant about. At around 12:38 PM, FLORENTINO FAITH was called and the patient. He apparently patient was sleeping Herberger and found to choke on food. Patient lost her pulse and became unresponsive. The nurse bedside initiated the CODE BLUE. Patient received 1 dose of epinephrine and bicarb. Pulse was o btained at 12:40 PM. Patient got intubated at 1243 as was noted to be apneic. EKG was obtained that suggested wide-complex tachycardia. Vitals reviewed had a temp of 98, pulse 88 respiratory rate 18 was saturating at 98% on 3 L and currently on 100% FiO2 Blood gas was obtained. PH of 7.2 CO2 was 72 pO2 to 209. CMP this morning was pending, stat labs were ordered in the morning which resulted close to the CODE BLUE suggested sodium of 134 potassium 5.3 chloride 93 BUN 61 creatinine 7.44. Patient received dialysis yesterday. Patient to be moved to the ICU for further management. Pulmonary consulted. 1 g of calcium gluconate given. 1 g of mag sulfate given. Labs ordered currently pending. 09/08 patient currently intubated. On assist control respiratory rate 18 and tidal volume 450 FiO2 45% PEEP of 5. ABG this morning patient had a pH of 7.47 pCO2 improved to 35 from 70 to pO2 109 bicarb 3026. CBC suggestive hemoglobin of 9.6 and C-reactive 0.5. BNP Surgicel and 35 potassium 5 chloride 97, magnesium 2.8 BUN 67 creatinine 7.69. Chest x-ray reviewed suggest basilar atelectasis. Blood culture for 24 hours and negative for E. coli. Continue with Invanz per infectious disease. Family at bedside and updated the patient's condition 09/09: Patient evaluated today in the ICU. Still currently intubated. Continues on assist control respiratory rate 18, tidal volume 450, FiO2 45% with a PEEP of 5. ABG today with a pH of 7.39, pCO2 37, pO2 131. Hemoglobin noted to drop slightly to 8.7 today, WBC 14.5, creatinine 5.0, BUN 34, potassium 4.7. Repeat chest x-ray shows stable x-ray, bilateral infiltrate with pleural effusion superimposed venous congestion. Patient noted to have no urine output, she continues on hemodialysis three times a week. Continues on Invanz per infectious diseases recommendations. The cultures show no growth to date. Patient is off propofol, plan to extubate possibly tomorrow. 09/10: Patient evaluated in the ICU still currently intubated and mechanically ventilated. She is on pressure support of 14 and CPAP, still remains lethargic and slow to wake up. Plan to extubate once patient is more awake. Repeat chest x-ray shows slightly decreased lung volume, bibasilar atelectasis consolidation small pleural effusions. Patient will be going for hemodialysis today and laboratory evaluation the WBC 14.5, hemoglobin 8.2, BUN 47, creatinine 6.8 09/11: Patient evaluated this afternoon in the ICU. Patient has a repeat chest x- ray that showed slight improvement from yesterday. Patient was successfully extubated patient is maintained on 5 L nasal cannula saturating 95%. Sputum cultures are growing Rosario albicans she is maintained on Invanz per infectious diseases recommendations. Repeat ABG shows pH 7.36, pCO2 41, pO2 162. Lab oratory values showed WBC 14.1, hemoglobin 8.7, creatinine 4.6, BUN 32. Plans for dialysis tomorrow. 09/12: Patient evaluated the bedside, remains in the ICU. Patient was given a trial of weaning yesterday and was successfully extubated. She does not require pressors at this point and she is hemodynamically stable. Blood pressure 129/59, heart rate 89. Laboratory values reveal WBC 12.4, hemoglobin 8.6, BUN 51, creatinine 6.92. Patient did undergo bedside swallow evaluation yesterday upon assessment is recommended the patient remain on ice chips only until patient is a bit stronger and able to clear secretions better. Pertinent medications were changed to IV until swallow is more developed. Repeat chest x-ray showed no interval change and is stable. Patient continues to be covered with Invanz for E. coli bacteremia secondary to urinary source per recommendations from infectious disease 09/13: Patient evaluated at the bedside in the ICU. Patient is doing well on nasal cannula, she was extubated on 09/11 and is tolerating well. Patient underwent dialysis yesterday without complication. Patient had some mild stridor yesterday, Decadron was given and since stridor has completely resolved. Patient was advanced to clear liquid diet yesterday and is tolerating well. She is more awake and able to clear secretions better. Patient has a positive for Rosario in the sputum, more likely oropharyngeal candidiasis, infectious disease his ordered nystatin swish and swallow. Patient had repeat chest x-ray showed stable left lower lobe infiltrate, small pleural effusion and inte rstitial pattern. Her vital signs have been stable heart rate of 84, blood pressure 133/44, she's 98% on 4 L via nasal cannula. Will be moved out of the ICU to the cardiac stepdown unit later on today. 09/14: Patient continues to have significant weakness but more awake and alert. She states she occasionally has coughing with food. She is complaining of abdominal pain when she coughs only. She states she has not been sleeping area and patient underwent hemodialysis 2 yesterday. No lower extremity edema. PT and OT consults added. Melatonin added. Patient is to go for modified barium s wallow today. Patient has been afebrile, heart rate 72, blood pressure 138/60, pulse ox 96% on 3 L nasal cannula. Blood sugars have been running between 151 and 231. Repeat lab work ordered for tomorrow. 09/15: She continues to have very poor appetite and dietitian has recommended enteral feedings the patient underwent modified barium swallow yesterday and speech therapy recommended upgrading diet to regular diet with thin liquids as tolerated. At this point, no enteral feedings will be initiated. Patient states that she is feeling better from yesterday. She has been afebrile, heart rate 77, blood pressure 143/63, pulse ox 97% on 3 L nasal cannula. WBC 12.4, hemoglobin 9.0, platelet count 319. Sodium 130, potassium 4.9, chloride 93, CO2 20, BUN 86 and creatinine 7.13. Blood sugars are running between 181 and 267. Anticipate discharge to subacute rehab tomorrow. REVIEW OF SYSTEMS Constitutional: No fever, no chills, no night sweats. No weight change. Reports weakness, reports fatigue report lethargy. Reports daytime sleepiness. EENT: No headache. No blurred vision or double vision, no loss of vision. No loss of Hearing, no ringing in the ears, no dizziness. No nasal drainage or congestion. No epistaxis. No sore throat. Lungs: Reports shortness of breath, cough, no sputum production. No wheezing. Cardiovascular: No chest pain, no lower extremity edema. No palpitations. No paroxysmal nocturnal dyspnea. No orthopnea. No lightheadedness or dizziness. No syncopal episodes. Abdominal: No abdominal pain. No nausea, vomiting. No diarrhea. No constipation. No bloody or tarry stools.. No loss of appetite. Genitourinary: No dysuria, increased frequency, urgency. No urinary retention. Musculoskeletal: No myalgias. No muscle weakness, no gait dysfunction, no frequent falls. No back pain. No neck pain. Integumentary: No wounds, no lesions. No rash or pruritus. No unusual bruising. Neurologic: No aphasia. No facial droop. Improved change in mentation. No head injury. No headache. No paralysis. No paresthesia. Psychiatric: No depression. No anxiety. No mood swings. Reports insomnia Endocrine: No abnormal blood sugars. No weight change. PHYSICAL EXAMINATION Gen: This is an obese 74-year-old female. Patient is sitting up in bed and appears to be comfortable at rest. HEENT: Head is atraumatic, normocephalic. Pupils equal, round. Sclerae is anicteric. NECK: Supple. No JVD. No lymphadenopathy. No thyromegaly. LUNGS: Clear to auscultation. No wheezes or rhonchi. No intercostal retractions. HEART: Regular rate and rhythm. 3/6 systolic murmur. ABDOMEN: Soft. Bowel sounds are present. No masses. No tenderness. EXTREMITIES: No pedal edema. No calf tenderness. NEUROLOGICAL: Patient is awake, alert and oriented x3. Cranial nerves 2 through 12 are grossly intact. ASSESSMENT AND PLAN 1. Sepsis secondary to E. coli UTI and E. coli bacteremia Continue Ertapenem per infectious disease's recommendations. Blood culture negative, previous blood culture positive for E. coli 2. Bilateral pleural effusion, small posterior infiltrate consistent with atelectasis. Repeat x-rays show improvement 3. Cardiac arrest unresponsive with loss of pulse CODE BLUE called on 09/07. Secondary to choking on her food. Status was epinephrine and bicarb Initial rhythm on record placed. EKG with wide complex tachycardia. Status post calcium gluconate and 1 g of magnesium sulfate. 4. Acute hypoxic hypercapnic respiratory failure intubated during the CODE BLUE. Likely aspiration. Lead Cargoman consulted. Patient successfully extubated, aspiration precautions in place 5. Wide complex tachycardia baseline EKG with sinus rhythm with bifascicular lock. Avoid QT prolonging medication. Cardiology consulted. Status post one dose of calcium gluconate. 1 g magnesium. 6. Status post Recurrent UTI, status post cystoscopy, by Dr. Borrego, previous culture positive for E. coli and klebsiella during last cultures chronic prophylactic antibiotics including nitrofurantoin and Mandelamine 7. Oliguria secondary to end-stage kidney disease, making less then 20 mL per day, consult with nephrology, on hemodialysis Monday and Monday. Levy catheter in place 8. End-stage renal disease on hemodialysis Monday and Monday. 9. Acute on chronic diastolic heart failure. Continue hemodialysis. Continue home dose of Lasix at 80 mg twice daily as well as metoprolol 50 mg daily 10. History of aortic stenosis status post TAVR. 11. Hypertension cardiovascular disease. Continue amiodarone 100 mg daily and metoprolol. 12. Paroxysmal atrial fibrillation. Continue amiodarone 100 mg once daily and metoprolol a history of GI bleed no past several years ago, not on any anticoagulation due to increased risk of fall and GI bleeding 13. History of myocardial infarction and coronary artery disease status post LAD stent in July 2017 and left circumflex in August 2017. Continue Toprol-XL 50 mg once daily, and Plavix 14. Diabetes mellitus type 2, insulin requiring. Continue insulin sliding scale. 15. GERD continue Protonix. 16. History of hyperlipidemia continue Zetia 10mg daily 17. Obstructive sleep apnea, on CPAP machine at night, along with O2 supplementation 18. Diabetic peripheral neuropathy continue gabapentin 300 mg twice daily. 19. Recurrent depression. Continue Cymbalta 60 mg orally once daily 20. Metabolic encephalopathy likely secondary to uremia and sepsis. on Dialysis 21. Hyponatremia secondary to volume overload. Continue dialysis, Monday, , Monday schedule. Nephrology following the patient 22. Oral pharyngeal candidiasis. Continue nystatin swish and swallow 23. Severe protein calorie malnutrition due to lack of oral intake for extended period of time. Speech therapy advance patient's diet to regular with thin liquids and patient is eating well yesterday especially when family found her. 24. DVT prophylaxis. Heparin subcu every 12 hours 25. GI prophylaxis continue Protonix. 26. COVID-19 testing negative. Patient has been hospitalized during a pandemic. DISCHARGE PLAN [facility] of on Monday. Impression and plan of care have been directed as dictated by the signing physician. Jessenia Gonzalez nurse practitioner acting as scribe for signing physician. Objective - Vital Signs Vital signs: Vital Signs Temp 98.1 F 09/15/20 08:00 Pulse 77 09/15/20 08:00 Resp 20 09/15/20 08:00 BP 143/63 09/15/20 08:00 Pulse Ox 97 09/15/20 08:00 Intake & Output 09/14/20 09/15/20 09/15/20 18:59 06:59 18:59 Intake Total 840 120 Output Total 0 Balance 840 120 Weight 94.347 kg 114 kg Intake: Oral 840 120 Output: Urine 0 Stool 0 Other: Voiding Method Diaper Diaper Diaper # Voids 0 ABP, PAP, CO, CI - Last Documented Arterial Blood Pressure 132/48 - Labs CBC & Chem 7: 09/15/20 07:34 09/15/20 07:34 Labs: Abnormal Lab Results - Last 24 Hours (Table) 09/14/20 09/14/20 09/14/20 Range/Units 11:53 17:42 23:55 WBC (3.8-10.6) k/uL RBC (3.80-5.40) m/uL Hgb (11.4-16.0) gm/dL Hct (34.0-46.0) % MCV (80.0-100.0) fL RDW (11.5-15.5) % Sodium (137-145) mmol/L Chloride (98-107) mmol/L Carbon Dioxide (22-30) mmol/L BUN (7-17) mg/dL Creatinine (0.52-1.04) mg/dL Glucose (74-99) mg/dL POC Glucose (mg/dL) 255 H 225 H 267 H (75-99) mg/dL Calcium (8.4-10.2) mg/dL 09/15/20 09/15/20 09/15/20 Range/Units 06:17 07:34 07:34 WBC 12.4 H (3.8-10.6) k/uL RBC 2.73 L (3.80-5.40) m/uL Hgb 9.0 L (11.4-16.0) gm/dL Hct 27.4 L (34.0-46.0) % MCV 100.5 H (80.0-100.0) fL RDW 15.7 H (11.5-15.5) % Sodium 130 L (137-145) mmol/L Chloride 93 L (98-107) mmol/L Carbon Dioxide 20 L (22-30) mmol/L BUN 86 H (7-17) mg/dL Creatinine 7.13 H* (0.52-1.04) mg/dL Glucose 181 H (74-99) mg/dL POC Glucose (mg/dL) 193 H (75-99) mg/dL Calcium 8.3 L (8.4-10.2) mg/dL
[2020-09-15 11:25] LABS: Glucose,Whole Blood 221 mg/dL (75-99)
--- NOTE | 2020-09-15 12:05 | PN ---
PROGRESS NOTE The patient is seen for followup for end-stage renal disease. She is currently lying in bed. She appears to be weak, not in any acute distress. The patient is scheduled for hemodialysis today. PHYSICAL EXAMINATION: Blood pressure was 143/63, heart rate 77 per minute. She is afebrile. Examination of lower extremities shows no evidence of edema. Abdomen is soft, nontender. COMPUTER SOFTWARE ENGINEER exam grossly intact. LABS: Labs show sodium 130, potassium 4.9, hemoglobin 9.0. ASSESSMENT: 1. End-stage renal disease, on hemodialysis on a Monday, , Monday schedule. 2. Status post cardiac arrest. 3. Status post acute hypoxic respiratory failure, status post extubation. 4. Escherichia coli bacteremia from urinary tract infection. 5. Anemia of chronic disease, maintained on Aranesp. PLAN: Hemodialysis today. Will decrease the UF since patient has not been eating much. MMODL / IJN: [id number] /
--- NOTE | 2020-09-15 12:24 | FL ---
EXAMINATION TYPE: FL barium swallow w video DATE OF EXAM: 09/14/2020 MODIFIED SWALLOW / DEGLUTITION STUDY CLINICAL HISTORY: Dysphagia. TECHNIQUE: Deglutition study is performed utilizing thin liquid barium, honey and nectar thick liqui d barium, barium thick applesauce, and barium coated cracker. COMPARISON: None. FINDINGS: The oral and pharyngeal phases show satisfactory initiation and propagation with all modali ties tested. Normal mastication is seen with solid modalities tested. There is no significant evide nce of aspiration with any modality tested. Mild transient penetration is seen with thickened liquid. This cleared. No significant pharyngeal residue was appreciated. IMPRESSION: No evidence of aspiration. Mild transient penetration with thickened liquid. This cleared . Please refer to speech therapist notes for further details if necessary.
--- NOTE | 2020-09-15 13:44 | P.PN ---
Subjective Progress Note Date: 09/15/20 Principal diagnosis: Cardiac arrest This is a 74-year-old female primarily a patient of Dr. Farias, known history of multiple medical problems including chronic atrial fibrillation, mostly paroxysmal in nature, coronary artery disease, previous [place], history of obstructive sleep apnea on CPAP at home, history of end-stage renal disease on hemodialysis history of aortic stenosis and previous T aVR in 2018. History of multiple urinary tract infections. Patient was admitted on 09/05/2020, her admitting diagnosis was sepsis secondary to urinary tract infection and patient was seen by infectious disease on consultation. Has been on proper antibiotics. Patient has been on Invanz, and she was being followed by many consultants on the case. Initially, the patient was on cefepime but this was later changed to Invanz. And she had multiple positive blood cultures for E. coli. At any rate patient was on the medical floor today, and around 1: 19, patient had a CODE BLUE. CPR was started, apparently patient was feeding at the time she had CODE BLUE. Questionable choking on her hamburger. Patient had no pulse, and went unresponsive. Spontaneous circulation was noted after 1 round of CPR and she was having episodes of apnea. Patient was intubated by [employer], 12-lead EKG at the time showed sinus tachycardia without any ischemic changes. Patient was eventually placed on mechanical ventilation, and she was transferred to the ICU. I saw the patient shortly after she arrived to the ICU, and reviewed her ABG also reviewed her chest x-ray. Her chest x-ray showed endotracheal tube about 4.8 cm from the level of the nicolás. There was no evidence of infiltrate, minimal atelectasis is noted. ABG showed a pO2 of 219 pCO2 of 72 pH of 7.22, hence her ventilator settings were adjusted by increasing her assist control rate of mechanical ventilation, and drop down her FiO2 to 50%. Repeat ABG is pending. Labs were basically unremarkable except for BUN of 51 creatinine of 5.58, remind you patient is known to have history of chronic renal failure and on hemodialysis. Lactic acid was noted to be at 2.2 and her watson virus PCR was negative. Patient initial complaint on admission was mostly symptoms of weakness with symptoms of urinary tract infection and her initial blood cultures and urine cultures were positive for E. coli. Looking at the chart, patient received 1 dose of epinephrine and 1 amp of bicarb patient was actually intubated at 1243, EKG showed wide complex tachycardia after return of spontaneous circulation. Last dialysis on this patient was yesterday. Patient was reevaluated today on 09/08/2020, remains in the ICU, intubated and mechanically ventilated. Her assist control rate is 18 tidal volume 450 FiO2 45% PEEP of 5 ABG showed a pO2 of 109 pCO2 of 35 pH of 7.47. Patient is on propofol at 30 mcg/kg/m she is off norepinephrine and her IV fluid at KVO. Patient remains on Invanz for her E. coli urinary tract infection and bacteremia. Chest x-ray showed basilar atelectasis, difficult to rule out pneumonia, and she does have some interstitial edema. WBC count today is 12.3 hemoglobin is 9.6. Electrolytes are normal however her BUN is 67 creatinine 7.69 Patient was reevaluated today on 09/09/2020, remains intubated and mechanically ventilated, remains in the ICU. She is on assist control rate of 18 tidal volume 450 FiO2 45% PEEP of 5 ABG showed a pO2 of 131 pCO2 of 37 pH of 7.39. Remains on propofol at 55 mcg/kg/m, not requiring any pressors, not requiring any paralytics. Patient had slow weaning yesterday, however she was getting a bit agitated while on mechanical ventilation, did not get a chance to give her a weaning trial, hence we'll try to do that today. My plan is to hold propofol, assess weaning parameters, possibly placed the patient on pressure support of 8 and CPAP, and if tolerated will proceed with extubating the patient. Chest x- ray shows minimal infiltrates especially at the right base. Patient is empirically on antibiotics. WBC count is 14.5 hemoglobin is 8.7 and lites are normal BUN is 34 creatinine 5.01 Reevaluated today on 09/10/2020, patient remains in the ICU, intubated and mechanically ventilated. Patient is extremely slow to wake up, remains lethargic, although she seems to be doing well with a pressure support of 14 and CPAP. I'm a bit reluctant to extubate the patient at this point since she is not fully awake, and I have a feeling that she will not be able to clear her s ecretions if extubated early. She was on assist control rate of 18 tidal volume is 450 FiO2 45% PEEP of 5 ABG showed a pO2 of 145 pCO2 of 36 pH of 7.37 I cut down her FiO2 to 45% and transition the patient to a pressure support with CPAP mode of mechanical ventilation planning to hopefully extubated the patient down the line. Patient remains off sedation. Propofol has been off for the last 24 hours. Relative fluids at KVO, tube feeds are on hold at present. Chest x-ray is showing some mild fluid overload, patient will be dialyzed, and the plan is to remove 2 L of fluid today. Left lites are normal renal profile is abnormal with BUN of 47 creatinine 6.81. Her CBC count is 14.5 lobe is 8.2. Blood sugar is in the 70s Reevaluated today on 09/11/2020, patient remains intubated and mechanically ventilated. Her assist control rate is 18 tidal volume is 450 FiO2 45% and PEEP of 5. Patient is hemodynamically stable, not requiring any pressors. Patient is being treated for cardiac arrest and possible aspiration pneumonia. Her ABG today looks great with a pO2 of 136 pCO2 of 38 pH of 7.39. Patient is definitely more awake and arousable this morning, follows simple instructions, and while I'm at bedside, I transition the patient to a pressure support mode of mechanical ventilation with a pressure support of 8 and CPAP. And I'm planning to give the patient a trial of weaning and possibly extubation today. In the meantime her tube feeding was placed on hold and her stomach was suctioned. Patient was noted to move could tidal volume on pressure support of 8, and her respiratory rate was in the teens. After 1 hour of pressure support and CPAP, repeat ABG showed a pO2 of 162 and CO2 of 41 pH of 7.36, hence proceeded to extubating the patient to a nasal cannula. Chest x-ray shows improvement in her bibasilar atelectasis/infiltrates. Small tiny left pleural effusion is suspected CBC showed WBC count of 14.1 hemoglobin of 8.7. leukocytosis noted. Electrolytes are normal bicarb is 20 to and BUN is 32 creatinine 4.68 Patient was reevaluated today on 09/12/2020, patient was extubated yesterday, tolerated the extubation well, scheduled to undergo dialysis again today. Last night I was called about this patient having some stridor. Recommended Decadron, 2 doses were given since last night, and her stridor has completely resolved. Patient is resting in bed, she is on 4 L nasal cannula, O2 sats was 96%. Remains on Lasix remains on hemodialysis. Remains on ice chips, and I would advance her diet to clear diet today. IV fluids remains at KVO. Remains on antibiotics for presumptive aspiration pneumonia. Chest x-ray today showed mostly atelectasis at the bases. Doubt underlying pneumonia. Patient is awake, follows instructions, not requiring any BiPAP anymore. And I will continue to monitor the patient in the ICU for the next 24 hours, and likely transfer to a cardiac floor in the next 24 hours if she continues to do well. Reevaluated today on 09/13/2020, patient remains in the ICU, her extubation has been successful so far. She is now on 4 L nasal cannula with O2 saturation of 98%. Patient was placed on BiPAP last night mostly because she has a CPAP machine and she did not bring her own. Patient had hemodialysis yesterday, and 2-1/2 L were removed yesterday. Chest x-ray minimal left basilar atelectasis. Overall the patient is doing quite well, and no major cardiac events over the last few days. Patient denies any cough wheezing or shortness of breath denies any nausea vomiting abdominal pain. Hence I would recommend that to transfer the patient out of the ICU to a monitor bed on the cardiac floor he had no plans for dialysis today. The results of his 14.9 hemoglobin is 9.1 electrodes are normal BUN is 44 creatinine 4.62. On 09/14/2020 patient seen in follow-up on medical surgical floor. She is awake and alert, she is resting comfortably in bed, currently on 3 L of oxygen her pulse ox of 96%, she's been wearing a BiPAP support at bedtime with pressures of 12 and 6 and FiO2 of 35%, she has been afebrile, she's had no complaints of chest discomfort, no significant cough or phlegm production. Patient had a hemodialysis treatment on 09/12/2020 would removal of 2.5 L of fluid. Today's labs have been reviewed, white blood cell count is 14.9, hemoglobin is 9.1, electrolytes were within normal limits, her BUN was 44, creatinine is 4.62. Patient remains on Invanz, and her urine and blood cultures showed E. coli. ID service is following and managing the antibiotics. On 09/15/2020 patient seen in follow-up on selective care unit, she is awake and alert, she is resting comfortably in bed, currently on 3 L of oxygen her pulse ox is 95-97%, she's been afebrile, hemodynamically she's been stable, breathing seems to be nonlabored, she did wear BiPAP last night with pressures of 12/60 FiO2 of 35%, she has been utilizing and at bedtime and as needed during the day, no cough or congestion, no complaints of chest discomfort, no altered mentation, she is answering questions appropriately. He remains on Invanz for possibility of sepsis, her urine culture showed E. coli, and her blood culture showed E. coli as well, no evidence of ESBL, sputum culture was only positive for Rosario albicans, follow blood cultures have been negative. ID service is following and managing the antibiotics, patient's last hemodialysis treatment was on 09/12/2020 would removal of 2.5 L of fluid. Objective - Vital Signs Vital signs: Vital Signs Temp 98.0 F 09/15/20 11:47 Pulse 78 09/15/20 11:47 Resp 20 09/15/20 11:47 BP 125/58 09/15/20 11:47 Pulse Ox 95 09/15/20 11:47 Intake & Output 09/14/20 09/15/20 09/15/20 18:59 06:59 18:59 Intake Total 840 120 Output Total 0 Balance 840 120 Weight 94.347 kg 114 kg Intake: Oral 840 120 Output: Urine 0 Stool 0 Other: Voiding Method Diaper Diaper Diaper # Voids 0 ABP, PAP, CO, CI - Last Documented Arterial Blood Pressure 132/48 - Exam GENERAL EXAM: Alert, very pleasant, 74-year-old white female, on 3 L of oxygen and the pulse ox of 95%, resting in bed comfortable in no apparent distress. HEAD: Normocephalic/atraumatic. EYES: Normal reaction of pupils, equal size. Conjunctiva pink, sclera white. NOSE: Clear with pink turbinates. THROAT: No erythema or exudates. NECK: No masses, no JVD, no thyroid enlargement, no adenopathy. CHEST: No chest wall deformity. Symmetrical expansion. LUNGS: Equal air entry with diminished breath sounds and mild crackles at the bases CVS: Regular rate and rhythm, normal S1 and S2, no gallops, no murmurs, no rubs ABDOMEN: Soft, nontender. No hepatosplenomegaly, normal bowel sounds, no guarding or rigidity. EXTREMITIES: No clubbing, no edema, no cyanosis, 2+ pulses and upper and lower extremities. MUSCULOSKELETAL: Muscle strength and tone normal. SPINE: No scoliosis or deformity SKIN: No rashes CENTRAL NERVOUS SYSTEM: Alert and oriented -3. No focal deficits, tone is normal in all 4 extremities. PSYCHIATRIC: Alert and oriented -3. Appropriate affect. Intact judgment and insight. - Labs CBC & Chem 7: 09/15/20 07:34 09/15/20 07:34 Labs: Abnormal Lab Results - Last 24 Hours (Table) 09/14/20 09/14/20 09/15/20 Range/Units 17:42 23:55 06:17 WBC (3.8-10.6) k/uL RBC (3.80-5.40) m/uL Hgb (11.4-16.0) gm/dL Hct (34.0-46.0) % MCV (80.0-100.0) fL RDW (11.5-15.5) % Sodium (137-145) mmol/L Chloride (98-107) mmol/L Carbon Dioxide (22-30) mmol/L BUN (7-17) mg/dL Creatinine (0.52-1.04) mg/dL Glucose (74-99) mg/dL POC Glucose (mg/dL) 225 H 267 H 193 H (75-99) mg/dL Calcium (8.4-10.2) mg/dL 09/15/20 09/15/20 09/15/20 Range/Units 07:34 07:34 11:24 WBC 12.4 H (3.8-10.6) k/uL RBC 2.73 L (3.80-5.40) m/uL Hgb 9.0 L (11.4-16.0) gm/dL Hct 27.4 L (34.0-46.0) % MCV 100.5 H (80.0-100.0) fL RDW 15.7 H (11.5-15.5) % Sodium 130 L (137-145) mmol/L Chloride 93 L (98-107) mmol/L Carbon Dioxide 20 L (22-30) mmol/L BUN 86 H (7-17) mg/dL Creatinine 7.13 H* (0.52-1.04) mg/dL Glucose 181 H (74-99) mg/dL POC Glucose (mg/dL) 221 H (75-99) mg/dL Calcium 8.3 L (8.4-10.2) mg/dL Assessment and Plan Plan: Assessment: #1. Acute hypoxic and acute hypercapnic respiratory failure secondary to cardiac arrest due to sepsis and possible septic shock. Patient was placed on mechanical ventilator, and successfully weaned and extubated on 09/11/2020 #2. Sepsis related to E. coli urinary tract infection and positive bacteremia #3. Chronic kidney disease on hemodialysis #4. Acute on chronic diastolic CHF #5. History of aortic stenosis and previous tavern #6. History of hypertension #7. History of paroxysmal A. fib #8. History of coronary artery disease and previous stent placement in the LAD and the left circumflex #9. Type 2 diabetes mellitus #10. History of GERD/reflux #11. Dyslipidemia #12. Obstructive sleep apnea on CPAP #13. History of diabetes and diabetic neuropathy #14. History of depression #15. Stridor secondary to recent intubation and mechanical ventilation, resolved Plan: No worsening dyspnea or hypoxia Continue antibiotics per ID service recommendations Follow blood cultures show no growth Vital signs have been stable Continue weaning FiO2 BiPAP support at bedtime and as needed No acute events overnight No alteration of mentation From pulmonary perspective patient can be considered for discharge out of the hospital possibly to ECF May need physical therapy evaluation I performed a history & physical examination of the patient and discussed their management with my nurse practitioner, Pinky Salas. I reviewed the nurse practitioner's note and agree with the documented findings and plan of care. Lung sounds are positive for bibasilar crackles. The findings and the impression was discussed with the patient. I attest to the documentation by the nurse practitioner. Time with Patient: Less than 30
--- NOTE | 2020-09-15 14:10 | PN ---
PROGRESS NOTE DATE OF SERVICE: 09/15/2020 REASON FOR FOLLOWUP: E coli bacteremia and UTI. INTERVAL HISTORY: The patient is currently afebrile. Patient is breathing comfortably. Denies having any chest pain, shortness of breath or cough. No abdominal pain or discomfort. No vomiting or diarrhea has been reported. PHYSICAL EXAMINATION: Blood pressure is 125/58 with a pulse of 78, temperature 98. She is 95% on 3 L nasal cannula. General description is elderly female lying in bed in no distress. RESPIRATORY SYSTEM: Unlabored breathing, clear to auscultation anteriorly. HEART: S1, S2 with regular rate and rhythm. ABDOMEN: Soft, no tenderness. LABS: White count of 12.4. DIAGNOSTIC IMPRESSION AND PLAN: Patient with Escherichia coli bacteremia secondary to urinary source received about 10 days of IV Invanz along with nystatin swish and swallow and close outpatient followup. MMODL / IJN: [id number] /
[2020-09-15] MEDS: ERTAPENEM 0.5 GM in SODIUM CHLORIDE 0.9% 50 ML IVPB SCH (15:45)
[2020-09-15] MEDS: ACETAMINOPHEN TAB 325 MG TAB PO PRN (15:45)
[2020-09-15 17:34] LABS: Glucose,Whole Blood 253 mg/dL (75-99)
[2020-09-15] MEDS: MELATONIN 3 MG TABLET PO SCH (20:51)
[2020-09-16 00:35] LABS: Glucose,Whole Blood 162 mg/dL (75-99)
[2020-09-16] MEDS: INSULIN ASPART (NovoLOG) 100 UNIT/ML VIAL SQ SCH ×4 (00:45→17:43)
[2020-09-16 05:59] LABS: Glucose,Whole Blood 167 mg/dL (75-99)
[2020-09-16] MEDS: SEVELAMER 800 MG TAB PO SCH (06:04)
[2020-09-16] MEDS: INSULIN DETEMIR (LEVEMIR) 100 UNIT/ML SYR SQ SCH ×2 (06:04→20:42)
[2020-09-16] MEDS: ASPIRIN 81 MG PO SCH (09:51)
[2020-09-16] MEDS: METOPROLOL SUCCINATE (ER) 50 MG TAB.ER.24H PO SCH (09:51)
[2020-09-16] MEDS: EZETIMIBE 10 MG TAB PO SCH (09:51)
[2020-09-16] MEDS: PANTOPRAZOLE 40 MG TABLET PO SCH (09:51)
[2020-09-16] MEDS: CHOLECALCIFEROL 25 MCG (1000 IU) TABLET PO SCH (09:51)
[2020-09-16] MEDS: CLOPIDOGREL 75 MG TAB PO SCH (09:51)
[2020-09-16] MEDS: DULoxetine HCL 60 MG CAPSULE.DR PO SCH (09:51)
[2020-09-16] MEDS: NYSTATIN 100,000 UNIT/ML SUSP 500,000 UNIT/5 ML CUP PO SCH ×4 (09:52→20:41)
[2020-09-16] MEDS: MAGNESIUM OXIDE 400 MG TAB PO SCH (09:52)
[2020-09-16] MEDS: AMIODARONE 100 MG TAB PO SCH (09:52)
--- NOTE | 2020-09-16 10:14 | P.DS ---
Providers Date of admission: 09/05/20 11:19 Expected date of discharge: 09/16/20 Attending physician: Nandini Venegas MD Consults: 09/05/20 11:19 Consult Physician Routine Consulting Provider: Tc Manrique Consult Reason/Comments: Kidney failure, urinary tract infection Do you want consulting provider notified?: Yes 09/05/20 16:27 Consult Physician Routine Consulting Provider: Margarette Obrien Consult Reason/Comments: UTI, MDR, pneumonia Do you want consulting provider notified?: Yes 09/07/20 13:01 Consult Physician Routine Consulting Provider: Wilbur Delacruz Consult Reason/Comments: CODE BLUE, ECG WIDE COMPLEX TACHCARDIA Do you want consulting provider notified?: Yes 09/07/20 13:02 Consult Physician Routine Consulting Provider: Alton Fishman Consult Reason/Comments: icU MANAGEMENT Do you want consulting provider notified?: Yes 09/07/20 13:24 Consult Physician Routine Consulting Provider: Alton Fishman Consult Reason/Comments: s/p code, intubation Do you want consulting provider notified?: Yes Primary care physician: Stevenson Farias [facility] Course: HISTORY OF PRESENT ILLNESS This is a 74-year-old female patient of Dr. Farias with past medical history of proximal atrial fibrillation, coronary artery disease status post VA, denies any history of COPD or asthma. Uses CPAP at home frequently. chronic diastolic heart failure, diabetes, hyperlipidemia, hypertension, hypertensive cardiovascular disease, end-stage renal disease on hemodialysis Monday and Monday, aortic stenosis status post TAVR in 2018, with h/o multiple urinary tract infection treated by Dr Borrego who also did cystoscopy on 05/22 done for recurrent UIT followed by bactrim for klebsiella and ecoli uti on 06/07/2020. Patient's urinalysis multidrug-resistant tenderness difficult to treat as outpatient. Dr. Borrego was planning to send the patient can't afford if no improvement seen. She started feeling unwell on Monday and had a full prescription of doxycycline and home which she started taking. Patient took doxycycline for 2 days with no improvement in sensation and decided to come to ER. Patient does document fever and chills at home. She denies any abdominal pain, diarrhea or constipation. Vitals evaluated in the assisted temp of 101 pulse 84 respiratory rate 18 blood pressure 138/88. Labs refuses this today WBC of 18.8 hemoglobin 10.5 MCV 102 platelet 217, INR 1, sodium 1:30, potassium 5, chloride 86, BUN 59 creatinine 6.7 glucose 219 lactic acid 2.1 and liver enzymes are normal and alkaline phosphatase 134. Urinalysis positive for UTI with positive RBC 175 WBC 182 positive leukocyte esterase and negative nitrites. Chest x-ray suggestive of the stated infiltrate concern for atelectasis versus pneumonia. Repeat chest x-ray will be obtained tomorrow. Continue patient on cefepime 2 g every 8 hours. Patient has sepsis secondary to UTI. IV fluids can cannot be continued as patient is on dialysis and is due for her dialysis. 09/06 patient evaluated at bedside appears much confused than yesterday. His short of breath on evaluation. Patient did not get her dialysis yesterday. She is not answering to questions and repeating the phrase" everything is going opposite"patient gets confused easily and is not able to answer suspension appropriate he is oriented 2. Nephrology is evaluated the patient and rec ommend dialysis today. Vitals checked this morning patient had a temp of 100.5 pulse rate 112 blood pressure 170/74 requiring 1-2 L of oxygen saturating at 94% on assessment patient's blood work today WBC has improved from 18-12.8 hemoglobin is 9.9, platelets 05[birth year]/1989 sodium has worsened from yesterday dropped to 127, potassium 5.3, chloride 84 bun is 74 creatinine 8.8, glucose 158 alkaline phosphatase is 133. Blood cultures are positive for gram-negative bacilli. Infectious disease consulted. Levofloxacin every 48 hours 500 mg IV Patient evaluated at bedside around 11 in the morning patient was doing well was lying in bed appears a little confused but was able to communicate without any difficulty. Discussed with patient the need for possible rehab which patient was reluctant about. At around 12:38 PM, FLORENTINO FAITH was called and the patient. He apparently patient was sleeping [place] and found to choke on food. Patient lost her pulse and became unresponsive. The nurse bedside initiated the CODE BLUE. Patient received 1 dose of epinephrine and bicarb. Pulse was obtained at 12:40 PM. Patient got intubated at 1243 as was noted to be apneic. EKG was obtained that suggested wide-complex tachycardia. Vitals reviewed had a temp of 98, pulse 88 respiratory rate 18 was saturating at 98% on 3 L and currently on 100% FiO2 Blood gas was obtained. PH of 7.2 CO2 was 72 pO2 to 209. CMP this morning was pending, stat labs were ordered in the morning which resulted close to the CODE BLUE suggested sodium of 134 potassium 5.3 chloride 93 BUN 61 creatinine 7.44. Patient received dialysis yesterday. Patient to be moved to the ICU for further management. Pulmonary consulted. 1 g of calcium gluconate given. 1 g of mag sulfate given. Labs ordered currently pending. 09/08 patient currently intubated. On assist control respiratory rate 18 and tidal volume 450 FiO2 45% PEEP of 5. ABG this morning patient had a pH of 7.47 pCO2 improved to 35 from 70 to pO2 109 bicarb 3026. CBC suggestive hemoglobin of 9.6 and C-reactive 0.5. BNP Surgicel and 35 potassium 5 chloride 97, magnesium 2.8 BUN 67 creatinine 7.69. Chest x-ray reviewed suggest basilar atelectasis. Blood culture for 24 hours and negative for E. coli. Continue with Invanz per infectious disease. Family at bedside and updated the patient's condition 09/09: Patient evaluated today in the ICU. Still currently intubated. Continues on assist control respiratory rate 18, tidal volume 450, FiO2 45% with a PEEP of 5. ABG today with a pH of 7.39, pCO2 37, pO2 131. Hemoglobin noted to drop slightly to 8.7 today, WBC 14.5, creatinine 5.0, BUN 34, potassium 4.7. Repeat chest x-ray shows stable x-ray, bilateral infiltrate with pleural effusion superimposed venous congestion. Patient noted to have no urine output, she continues on hemodialysis three times a week. Continues on Invanz per infectious diseases recommendations. The cultures show no growth to date. Patient is off propofol, plan to extubate possibly tomorrow. 09/10: Patient evaluated in the ICU still currently intubated and mechanically ventilated. She is on pressure support of 14 and CPAP, still remains lethargic and slow to wake up. Plan to extubate once patient is more awake. Repeat chest x-ray shows slightly decreased lung volume, bibasilar atelectasis consolidation small pleural effusions. Patient will be going for hemodialysis today and laboratory evaluation the WBC 14.5, hemoglobin 8.2, BUN 47, creatinine 6.8 09/11: Patient evaluated this afternoon in the ICU. Patient has a repeat chest x- ray that showed slight improvement from yesterday. Patient was successfully extubated patient is maintained on 5 L nasal cannula saturating 95%. Sputum cultures are growing Rosario albicans she is maintained on Invanz per infectious diseases recommendations. Repeat ABG shows pH 7.36, pCO2 41, pO2 162. Laboratory values showed WBC 14.1, hemoglobin 8.7, creatinine 4.6, BUN 32. Plans for dialysis tomorrow. 09/12: Patient evaluated the bedside, remains in the ICU. Patient was given a trial of weaning yesterday and was successfully extubated. She does not require pressors at this point and she is hemodynamically stable. Blood pressure 129/59, heart rate 89. Laboratory values reveal WBC 12.4, hemoglobin 8.6, BUN 51, creatinine 6.92. Patient did undergo bedside swallow evaluation yesterday upon assessment is recommended the patient remain on ice chips only until patient is a bit stronger and able to clear secretions better. Pertinent medications were changed to IV until swallow is more developed. Repeat chest x-ray showed no interval change and is stable. Patient continues to be covered with Invanz for E. coli bacteremia secondary to urinary source per recommendations from infectious disease 09/13: Patient evaluated at the bedside in the ICU. Patient is doing well on nasal cannula, she was extubated on 09/11 and is tolerating well. Patient underwent dialysis yesterday without complication. Patient had some mild stridor yesterday, Decadron was given and since stridor has completely resolved. Patient was advanced to clear liquid diet yesterday and is tolerating well. She is more awake and able to clear secretions better. Patient has a positive for Rosario in the sputum, more likely oropharyngeal candidiasis, infectious disease his ordered nystatin swish and swallow. Patient had repeat chest x-ray showed stable left lower lobe infiltrate, small pleural effusion and interstitial pattern. Her vital signs have been stable heart rate of 84, blood pressure 133/44, she's 98% on 4 L via nasal cannula. Will be moved out of the ICU to the cardiac stepdown unit later on today. 09/14: Patient continues to have significant weakness but more awake and alert. She states she occasionally has coughing with food. She is complaining of abdominal pain when she coughs only. She states she has not been sleeping area and patient underwent hemodialysis 2 yesterday. No lower extremity edema. PT and OT consults added. Melatonin added. Patient is to go for modified barium swallow today. Patient has been afebrile, heart rate 72, blood pressure 138/60, pulse ox 96% on 3 L nasal cannula. Blood sugars have been running between 151 and 231. Repeat lab work ordered for tomorrow. 09/15: She continues to have very poor appetite and dietitian has recommended enteral feedings the patient underwent modified barium swallow yesterday and speech therapy recommended upgrading diet to regular diet with thin liquids as tolerated. At this point, no enteral feedings will be initiated. Patient states that she is feeling better from yesterday. She has been afebrile, heart rate 77, blood pressure 143/63, pulse ox 97% on 3 L nasal cannula. WBC 12.4, hemoglobin 9.0, platelet count 319. Sodium 130, potassium 4.9, chloride 93, CO2 20, BUN 86 and creatinine 7.13. Blood sugars are running between 181 and 267. Anticipate discharge to subacute rehab tomorrow. 09/16: Patient ate 100% of her breakfast this morning. She states she is feeling well. No new complaints. She has been afebrile, heart rate 71, blood pressure 163/65 and pulse ox 99% on BiPAP. Blood sugars are running between [address] Obrien is planning for 4 more days of ertapenem. [place] has agreed to peripheral line for these 4 days. Discharge plan is for [place] and patient will be discharged in stable condition. ASSESSMENT AND PLAN 1. Sepsis secondary to E. coli UTI and E. coli bacteremia 2. Bilateral pleural effusion, small posterior infiltrate consistent with atelectasis. 3. Cardiac arrest unresponsive with loss of pulse CODE BLUE called on 09/07. Secondary to choking on her food. Status was epinephrine and bicarb Initial rhythm on record placed. EKG with wide complex tachycardia. 4. Acute hypoxic hypercapnic respiratory failure intubated during the CODE BLUE. 5. Wide complex tachycardia baseline EKG with sinus rhythm with bifascicular lo ck. Avoid QT prolonging medication. 6. Status post Recurrent UTI, status post cystoscopy, by Dr. Borrego. 7. Oliguria secondary to end-stage kidney disease. 8. End-stage renal disease on hemodialysis Monday and Monday. 9. Acute on chronic diastolic heart failure. 10. History of aortic stenosis status post TAVR. 11. Hypertension cardiovascular disease. 12. Paroxysmal atrial fibrillation. 13. History of myocardial infarction and coronary artery disease status post LAD stent in July 2017 and left circumflex in August 2017. 14. Diabetes mellitus type 2, insulin requiring. 15. GERD. 16. History of hyperlipidemia 17. Obstructive sleep apnea, on CPAP machine at night, along with O2 supplementation 18. Diabetic peripheral neuropathy 19. Recurrent depression. 20. Metabolic encephalopathy likely secondary to uremia and sepsis. 21. Hyponatremia secondary to volume overload. 22. Oral pharyngeal candidiasis. 23. Severe protein calorie malnutrition due to lack of oral intake for extended period of time. 24. COVID-19 testing negative. Patient has been hospitalized during a pandemic. DISCHARGE PLAN [place] under the care of Dr. Robertson Impression and plan of care have been directed as dictated by the signing physician. Jessenia Gonzalez nurse practitioner acting as scribe for signing physician. Patient Condition at Discharge: Good Plan - Discharge Summary Discharge Rx Participant: Yes New Discharge Prescriptions: New Insulin Detemir (Levemir) [Levemir] 5 unit SQ BID@0700,2100 syr Darbepoetin Aron [Aranesp] 40 mcg SQ Q7D syringe Ipratropium-Albuterol Nebulize [Duoneb 0.5 mg-3 mg/3 ml Soln] 3 ml INHALATION RT-Q4H PRN ml PRN Reason: Shortness Of Breath Or Wheezing Ertapenem [INVanz] 0.5 gm IVPB DAILY@1500 #4 vial Melatonin 6 mg PO HS tablet Nystatin 100,000 Unit/ml Susp [Mycostatin Oral Susp] 500,000 unit PO QID 7 Days ml INSULIN ASPART (NovoLOG) [NovoLOG (formulary)] 0 unit SQ Q6HR vial Continue DULoxetine HCL [Cymbalta] 60 mg PO DAILY Amiodarone HCl [Pacerone] 100 mg PO DAILY Ezetimibe [Zetia] 10 mg PO DAILY Omeprazole 20 mg PO DAILY Magnesium Oxide [Mag-Ox] 250 mg PO DAILY Clopidogrel [Plavix] 75 mg PO DAILY #30 tab Aspirin [Adult Low Dose Aspirin EC] 81 mg PO DAILY Cranberry 4200mg 4,200 mg PO BID Metoprolol Succinate (ER) [Toprol XL] 50 mg PO DAILY Sevelamer [Renvela] 800 mg PO AC-BRKFST Ferrous Sulfate [Iron (65 MG Elemental)] 325 mg PO DAILY Vitamin C/Biotin [Hair, Skin and Nails] 1 tab PO BID Methenamine Hippurate 1 gm PO BID #60 tablet Cholecalciferol [Vitamin D3 (25 Mcg = 1000 Iu)] 50 mcg PO DAILY Midodrine HCl [ProAmatine] 10 mg PO DIRECTED PRN PRN Reason: DIALYSIS, LOW BLOOD PRESSURE Changed Furosemide [Lasix] 40 mg PO DAILY #0 Discontinued Gabapentin [Neurontin] 300 mg PO BID #60 capsule metOLazone [Zaroxolyn] 5 mg PO BID Insulin Aspart [NovoLOG Flexpen] 10 - 12 units SQ AC-TID Insulin Glargine,Hum.rec.anlog [Lantus Solostar] 20 units SQ BID Discharge Medication List DULoxetine HCL [Cymbalta] 60 mg PO DAILY 08/04/14 [History] Amiodarone HCl [Pacerone] 100 mg PO DAILY 11/22/15 [History] Ezetimibe [Zetia] 10 mg PO DAILY 11/22/15 [History] Omeprazole 20 mg PO DAILY 12/25/16 [History] Magnesium Oxide [Mag-Ox] 250 mg PO DAILY 05/05/17 [History] Clopidogrel [Plavix] 75 mg PO DAILY #30 tab 08/21/17 [Rx] Aspirin [Adult Low Dose Aspirin EC] 81 mg PO DAILY 03/02/18 [History] Cranberry 4200mg 4,200 mg PO BID 01/12/20 [History] Metoprolol Succinate (ER) [Toprol XL] 50 mg PO DAILY 01/12/20 [History] Sevelamer [Renvela] 800 mg PO AC-BRKFST 01/12/20 [History] Ferrous Sulfate [Iron (65 MG Elemental)] 325 mg PO DAILY 06/09/20 [History] Vitamin C/Biotin [Hair, Skin and Nails] 1 tab PO BID 06/09/20 [History] Methenamine Hippurate 1 gm PO BID #60 tablet 06/12/20 [Rx] Cholecalciferol [Vitamin D3 (25 Mcg = 1000 Iu)] 50 mcg PO DAILY 09/05/20 [History] Midodrine HCl [ProAmatine] 10 mg PO DIRECTED PRN 09/05/20 [History] Darbepoetin Aron [Aranesp] 40 mcg SQ Q7D syringe 09/16/20 [Rx] Ertapenem [INVanz] 0.5 gm IVPB DAILY@1500 #4 vial 09/16/20 [Rx] Furosemide [Lasix] 40 mg PO DAILY #0 09/16/20 [Rx] INSULIN ASPART (NovoLOG) [NovoLOG (formulary)] 0 unit SQ Q6HR vial 09/16/20 [Rx] Insulin Detemir (Levemir) [Levemir] 5 unit SQ BID@0700,2100 syr 09/16/20 [Rx] Ipratropium-Albuterol Nebulize [Duoneb 0.5 mg-3 mg/3 ml Soln] 3 ml INHALATION RT-Q4H PRN ml 09/16/20 [Rx] Melatonin 6 mg PO HS tablet 09/16/20 [Rx] Nystatin 100,000 Unit/ml Susp [Mycostatin Oral Susp] 500,000 unit PO QID 7 Days ml 09/16/20 [Rx] Follow up Appointment(s)/Referral(s): Stevenson Farias MD [Primary Care Provider] - 1-2 days
--- NOTE | 2020-09-16 10:50 | XR ---
EXAMINATION TYPE: XR chest 1V portable DATE OF EXAM: 09/16/2020 COMPARISON: Chest x-ray 09/13/2020 HISTORY: Dyspnea TECHNIQUE: Single frontal view of the chest is obtained. FINDINGS: Postop changes are again noted. Cardiac mediastinal silhouette is thought to be stable. Ao rta is dense. There is no evident pneumothorax or sizable pleural effusion. Lung volumes are low, momo e minimal patchy basilar density again noted. Interstitium is increased in aeration thought to be imp roved. There are overlying leads. IMPRESSION: Findings are similar to prior exam. May be some basilar atelectasis, improved aeration
--- NOTE | 2020-09-16 11:20 | PN ---
PROGRESS NOTE The patient is seen for followup for end-stage renal disease. This morning patient is comfortable. She is maintained on BiPAP. She denies any significant complaints. She appears to be weak. PHYSICAL EXAMINATION: Blood pressure is 163/65, heart rate 71 per minute. She is afebrile. EXAMINATION OF THE HEART: S1, S2. EXAMINATION OF THE LUNGS: Bilateral breath sounds are heard. Abdomen is soft, obese. Examination of lower extremities shows no evidence of edema. LACE INSPECTOR exam grossly intact. LABS: Labs are not available from today. ASSESSMENT: 1. End-stage renal disease, on hemodialysis on a Monday, , Monday schedule. 2. Escherichia coli bacteremia and urinary tract infection, maintained on antibiotics. 3. Generalized debility. 4. Chronic kidney disease mineral bone disorder. 5. History of aortic stenosis, status post TAVR. 6. History of paroxysmal atrial fibrillation. PLAN: Hemodialysis in a.m. MMODL / IJN: [id number] /
[2020-09-16 12:05] LABS: Glucose,Whole Blood 226 mg/dL (75-99)
--- NOTE | 2020-09-16 14:09 | P.PN ---
Subjective Progress Note Date: 09/16/20 Principal diagnosis: Cardiac arrest This is a 74-year-old female primarily a patient of Dr. Farias, known history of multiple medical problems including chronic atrial fibrillation, mostly paroxysmal in nature, coronary artery disease, previous OR, history of obstructive sleep apnea on CPAP at home, history of end-stage renal disease on hemodialysis history of aortic stenosis and previous T aVR in 2018. History of multiple urinary tract infections. Patient was admitted on 09/05/2020, her admitting diagnosis was sepsis secondary to urinary tract infection and patient was seen by infectious disease on consultation. Has been on proper antibiotics. Patient has been on Invanz, and she was being followed by many consultants on the case. Initially, the patient was on cefepime but this was later changed to Invanz. And she had multiple positive blood cultures for E. coli. At any rate patient was on the medical floor today, and around 1: 19, patient had a CODE BLUE. CPR was started, apparently patient was feeding at the time she had CODE BLUE. Questionable choking on her hamburger. Patient had no pulse, and went unresponsive. Spontaneous circulation was noted after 1 round of CPR and she was having episodes of apnea. Patient was intubated by [employer], 12-lead EKG at the time showed sinus tachycardia without any ischemic changes. Patient was eventually placed on mechanical ventilation, and she was transferred to the ICU. I saw the patient shortly after she arrived to the ICU, and reviewed her ABG also reviewed her chest x-ray. Her chest x-ray showed endotracheal tube about 4.8 cm from the level of the nicolás. There was no evidence of infiltrate, minimal atelectasis is noted. ABG showed a pO2 of 219 pCO2 of 72 pH of 7.22, hence her ventilator settings were adjusted by increasing her assist control rate of mechanical ventilation, and drop down her FiO2 to 50%. Repeat ABG is pending. Labs were basically unremarkable except for BUN of 51 creatinine of 5.58, remind you patient is known to have history of chronic renal failure and on hemodialysis. Lactic acid was noted to be at 2.2 and her watson virus PCR was negative. Patient initial complaint on admission was mostly symptoms of weakness with symptoms of urinary tract infection and her initial blood cultures and urine cultures were positive for E. coli. Looking at the chart, patient received 1 dose of epinephrine and 1 amp of bicarb patient was actually intubated at 1243, EKG showed wide complex tachycardia after return of spontaneous circulation. Last dialysis on this patient was yesterday. Patient was reevaluated today on 09/08/2020, remains in the ICU, intubated and mechanically ventilated. Her assist control rate is 18 tidal volume 450 FiO2 45% PEEP of 5 ABG showed a pO2 of 109 pCO2 of 35 pH of 7.47. Patient is on propofol at 30 mcg/kg/m she is off norepinephrine and her IV fluid at KVO. Patient remains on Invanz for her E. coli urinary tract infection and bacteremia. Chest x-ray showed basilar atelectasis, difficult to rule out pneumonia, and she does have some interstitial edema. WBC count today is 12.3 hemoglobin is 9.6. Electrolytes are normal however her BUN is 67 creatinine 7.69 Patient was reevaluated today on 09/09/2020, remains intubated and mechanically ventilated, remains in the ICU. She is on assist control rate of 18 tidal volume 450 FiO2 45% PEEP of 5 ABG showed a pO2 of 131 pCO2 of 37 pH of 7.39. Remains on propofol at 55 mcg/kg/m, not requiring any pressors, not requiring any paralytics. Patient had slow weaning yesterday, however she was getting a bit agitated while on mechanical ventilation, did not get a chance to give her a weaning trial, hence we'll try to do that today. My plan is to hold propofol, assess weaning parameters, possibly placed the patient on pressure support of 8 and CPAP, and if tolerated will proceed with extubating the patient. Chest x- ray shows minimal infiltrates especially at the right base. Patient is empirically on antibiotics. WBC count is 14.5 hemoglobin is 8.7 and lites are normal BUN is 34 creatinine 5.01 Reevaluated today on 09/10/2020, patient remains in the ICU, intubated and mechanically ventilated. Patient is extremely slow to wake up, remains lethargic, although she seems to be doing well with a pressure support of 14 and CPAP. I'm a bit reluctant to extubate the patient at this point since she is not fully awake, and I have a feeling that she will not be able to clear her s ecretions if extubated early. She was on assist control rate of 18 tidal volume is 450 FiO2 45% PEEP of 5 ABG showed a pO2 of 145 pCO2 of 36 pH of 7.37 I cut down her FiO2 to 45% and transition the patient to a pressure support with CPAP mode of mechanical ventilation planning to hopefully extubated the patient down the line. Patient remains off sedation. Propofol has been off for the last 24 hours. Relative fluids at KVO, tube feeds are on hold at present. Chest x-ray is showing some mild fluid overload, patient will be dialyzed, and the plan is to remove 2 L of fluid today. Left lites are normal renal profile is abnormal with BUN of 47 creatinine 6.81. Her CBC count is 14.5 lobe is 8.2. Blood sugar is in the 70s Reevaluated today on 09/11/2020, patient remains intubated and mechanically ventilated. Her assist control rate is 18 tidal volume is 450 FiO2 45% and PEEP of 5. Patient is hemodynamically stable, not requiring any pressors. Patient is being treated for cardiac arrest and possible aspiration pneumonia. Her ABG today looks great with a pO2 of 136 pCO2 of 38 pH of 7.39. Patient is definitely more awake and arousable this morning, follows simple instructions, and while I'm at bedside, I transition the patient to a pressure support mode of mechanical ventilation with a pressure support of 8 and CPAP. And I'm planning to give the patient a trial of weaning and possibly extubation today. In the meantime her tube feeding was placed on hold and her stomach was suctioned. Patient was noted to move could tidal volume on pressure support of 8, and her respiratory rate was in the teens. After 1 hour of pressure support and CPAP, repeat ABG showed a pO2 of 162 and CO2 of 41 pH of 7.36, hence proceeded to extubating the patient to a nasal cannula. Chest x-ray shows improvement in her bibasilar atelectasis/infiltrates. Small tiny left pleural effusion is suspected CBC showed WBC count of 14.1 hemoglobin of 8.7. leukocytosis noted. Electrolytes are normal bicarb is 20 to and BUN is 32 creatinine 4.68 Patient was reevaluated today on 09/12/2020, patient was extubated yesterday, tolerated the extubation well, scheduled to undergo dialysis again today. Last night I was called about this patient having some stridor. Recommended Decadron, 2 doses were given since last night, and her stridor has completely resolved. Patient is resting in bed, she is on 4 L nasal cannula, O2 sats was 96%. Remains on Lasix remains on hemodialysis. Remains on ice chips, and I would advance her diet to clear diet today. IV fluids remains at KVO. Remains on antibiotics for presumptive aspiration pneumonia. Chest x-ray today showed mostly atelectasis at the bases. Doubt underlying pneumonia. Patient is awake, follows instructions, not requiring any BiPAP anymore. And I will continue to monitor the patient in the ICU for the next 24 hours, and likely transfer to a cardiac floor in the next 24 hours if she continues to do well. Reevaluated today on 09/13/2020, patient remains in the ICU, her extubation has been successful so far. She is now on 4 L nasal cannula with O2 saturation of 98%. Patient was placed on BiPAP last night mostly because she has a CPAP machine and she did not bring her own. Patient had hemodialysis yesterday, and 2-1/2 L were removed yesterday. Chest x-ray minimal left basilar atelectasis. Overall the patient is doing quite well, and no major cardiac events over the last few days. Patient denies any cough wheezing or shortness of breath denies any nausea vomiting abdominal pain. Hence I would recommend that to transfer the patient out of the ICU to a monitor bed on the cardiac floor he had no plans for dialysis today. The results of his 14.9 hemoglobin is 9.1 electrodes are normal BUN is 44 creatinine 4.62. On 09/14/2020 patient seen in follow-up on medical surgical floor. She is awake and alert, she is resting comfortably in bed, currently on 3 L of oxygen her pulse ox of 96%, she's been wearing a BiPAP support at bedtime with pressures of 12 and 6 and FiO2 of 35%, she has been afebrile, she's had no complaints of chest discomfort, no significant cough or phlegm production. Patient had a hemodialysis treatment on 09/12/2020 would removal of 2.5 L of fluid. Today's labs have been reviewed, white blood cell count is 14.9, hemoglobin is 9.1, electrolytes were within normal limits, her BUN was 44, creatinine is 4.62. Patient remains on Invanz, and her urine and blood cultures showed E. coli. ID service is following and managing the antibiotics. On 09/15/2020 patient seen in follow-up on selective care unit, she is awake and alert, she is resting comfortably in bed, currently on 3 L of oxygen her pulse ox is 95-97%, she's been afebrile, hemodynamically she's been stable, breathing seems to be nonlabored, she did wear BiPAP last night with pressures of 12/60 FiO2 of 35%, she has been utilizing and at bedtime and as needed during the day, no cough or congestion, no complaints of chest discomfort, no altered mentation, she is answering questions appropriately. He remains on Invanz for possibility of sepsis, her urine culture showed E. coli, and her blood culture showed E. coli as well, no evidence of ESBL, sputum culture was only positive for Rosario albicans, follow blood cultures have been negative. ID service is following and managing the antibiotics, patient's last hemodialysis treatment was on 09/12/2020 would removal of 2.5 L of fluid. The patient is seen today 09/16/2020 in follow-up on the selective care unit. She is currently resting comfortably in bed. Awake and alert in no acute distress. She is maintaining O2 saturations in the 90s on 3 L/m per nasal ca nnula. Alternating with BiPAP. She's afebrile. Chest x-ray continues to show some basilar atelectasis with improved aeration. Glucose 226. She remains on DuoNeb inhalations, antibiotics in the form of ertapenem. Follow-up blood cultures revealed no growth. Objective - Vital Signs Vital signs: Vital Signs Temp 98.0 F 09/16/20 11:58 Pulse 79 09/16/20 11:58 Resp 16 09/16/20 11:58 BP 157/62 09/16/20 11:58 Pulse Ox 98 09/16/20 11:58 Intake & Output 09/15/20 09/16/20 09/16/20 18:59 06:59 18:59 Intake Total 960 240 Output Total 1500 0 Balance -540 240 Weight 114 kg Intake: Oral 960 240 Output: Stool 0 Hemodialysis 1500 Other: Voiding Method Diaper Diaper Diaper # Voids 0 ABP, PAP, CO, CI - Last Documented Arterial Blood Pressure 132/48 - Exam GENERAL EXAM: Alert, very pleasant, 74-year-old female patient, on 3 L of oxygen and the pulse ox of 98%, resting in bed comfortable in no apparent distress. HEAD: Normocephalic/atraumatic. EYES: Normal reaction of pupils, equal size. Conjunctiva pink, sclera white. NOSE: Clear with pink turbinates. THROAT: No erythema or exudates. NECK: No masses, no JVD, no thyroid enlargement, no adenopathy. CHEST: No chest wall deformity. Symmetrical expansion. LUNGS: Equal air entry with diminished breath sounds and mild crackles at the bases CVS: Regular rate and rhythm, normal S1 and S2, no gallops, no murmurs, no rubs ABDOMEN: Soft, nontender. No hepatosplenomegaly, normal bowel sounds, no guarding or rigidity. EXTREMITIES: No clubbing, no edema, no cyanosis, 2+ pulses and upper and lower extremities. MUSCULOSKELETAL: Muscle strength and tone normal. SPINE: No scoliosis or deformity SKIN: No rashes CENTRAL NERVOUS SYSTEM: No focal deficits, tone is normal in all 4 extremities. PSYCHIATRIC: Alert and oriented -3. Appropriate affect. Intact judgment and insight. - Labs CBC & Chem 7: 09/15/20 07:34 09/15/20 07:34 Labs: Abnormal Lab Results - Last 24 Hours (Table) 09/15/20 09/16/20 09/16/20 Range/Units 17:32 00:34 05:57 POC Glucose (mg/dL) 253 H 162 H 167 H (75-99) mg/dL 09/16/20 Range/Units 11:46 POC Glucose (mg/dL) 226 H (75-99) mg/dL Assessment and Plan Assessment: 1 Acute hypoxic and acute hypercapnic respiratory failure secondary to cardiac arrest due to sepsis and possible septic shock. Patient was placed on mechanical ventilator, and successfully weaned and extubated on 09/11/2020 2 Sepsis related to E. coli urinary tract infection and positive bacteremia 3 Chronic kidney disease on hemodialysis 4 Acute on chronic diastolic CHF 5 History of aortic stenosis and previous tavern 6 History of hypertension 7 History of paroxysmal A. fib 8 History of coronary artery disease and previous stent placement in the LAD and the left circumflex 9 Type 2 diabetes mellitus 10 History of GERD/reflux 11 Dyslipidemia 12 Obstructive sleep apnea on CPAP 13 History of diabetes and diabetic neuropathy 14 History of depression 15 Stridor secondary to recent intubation and mechanical ventilation, resolved Plan: The patient was seen and evaluated by Dr. Lee Chest x-ray reviewed Stable from the pulmonary standpoint Titrate the FiO2 as tolerated Antibiotics per ID services Discharge planning in place I, the cosigning physician, performed a history & physical examination of the patient. Lungs sounds with few crackles at the bases. Maintaining good O2 saturations in the 90s on 3 L/m per nasal cannula I discussed the assessment and plan of care with my nurse practitioner, Aruna Aquino. I attest to the above note as dictated by her.
[2020-09-16] MEDS: ERTAPENEM 0.5 GM in SODIUM CHLORIDE 0.9% 50 ML IVPB SCH (16:04)
[2020-09-16 17:22] LABS: Glucose,Whole Blood 157 mg/dL (75-99)
--- NOTE | 2020-09-16 17:27 | PN ---
PROGRESS NOTE DATE OF SERVICE: 09/16/2020 REASON FOR FOLLOWUP: E coli UTI and bacteremia. INTERVAL HISTORY: The patient is currently afebrile. The patient is breathing comfortably. She was on BiPAP this morning. The patient denies having any chest pain. Occasional cough. No abdominal pain or diarrhea. PHYSICAL EXAMINATION: Blood pressure 157/62 with a pulse of 69, temperature 98. She is 98% on 3 L nasal cannula. General description is an elderly female lying in bed in no distress. RESPIRATORY SYSTEM: Unlabored breathing. Clear to auscultation anteriorly. HEART: S1, S2. Regular rate and rhythm. ABDOMEN: Soft. No tenderness. LABS: No new labs have been obtained today. Blood culture has been negative so far. DIAGNOSTIC IMPRESSION AND PLAN: Patient with Escherichia coli bacteremia with MULTIPLE ANTIBIOTIC ALLERGIES. Repeat blood culture has been negative. Urine grew the same pathogen. Patient to continue with Invanz 500 mg daily for another 3 or 4 days to finish her 2-week course of therapy and close outpatient followup. MMODL / IJN: [id number] / VEGA
[2020-09-16 20:08] LABS: Glucose,Whole Blood 187 mg/dL (75-99)
[2020-09-16] MEDS: MELATONIN 3 MG TABLET PO SCH (20:41)
[2020-09-17 00:20] LABS: Glucose,Whole Blood 151 mg/dL (75-99)
[2020-09-17] MEDS: INSULIN ASPART (NovoLOG) 100 UNIT/ML VIAL SQ SCH ×3 (01:53→12:41)
[2020-09-17 06:10] LABS: Glucose,Whole Blood 224 mg/dL (75-99)
[2020-09-17] MEDS: SEVELAMER 800 MG TAB PO SCH (06:18)
[2020-09-17] MEDS: INSULIN DETEMIR (LEVEMIR) 100 UNIT/ML SYR SQ SCH (06:18)
[2020-09-17] MEDS: EZETIMIBE 10 MG TAB PO SCH (09:02)
[2020-09-17] MEDS: CHOLECALCIFEROL 25 MCG (1000 IU) TABLET PO SCH (09:02)
[2020-09-17] MEDS: CLOPIDOGREL 75 MG TAB PO SCH (09:02)
[2020-09-17] MEDS: DULoxetine HCL 60 MG CAPSULE.DR PO SCH (09:02)
[2020-09-17] MEDS: MAGNESIUM OXIDE 400 MG TAB PO SCH (09:02)
[2020-09-17] MEDS: ASPIRIN 81 MG PO SCH (09:02)
[2020-09-17] MEDS: NYSTATIN 100,000 UNIT/ML SUSP 500,000 UNIT/5 ML CUP PO SCH ×2 (09:03→12:49)
[2020-09-17] MEDS: PANTOPRAZOLE 40 MG TABLET PO SCH (09:04)
[2020-09-17] MEDS: ACETAMINOPHEN TAB 325 MG TAB PO PRN (09:12)
[2020-09-17 11:55] LABS: Glucose,Whole Blood 126 mg/dL (75-99)
--- NOTE | 2020-09-17 12:03 | P.PN ---
Subjective Progress Note Date: 09/16/20 HISTORY OF PRESENT ILLNESS This is a 74-year-old female patient of Dr. Farias with past medical history of proximal atrial fibrillation, coronary artery disease status post HI, denies any history of COPD or asthma. Uses CPAP at home frequently. chronic diastolic heart failure, diabetes, hyperlipidemia, hypertension, hypertensive cardiovascular disease, end-stage renal disease on hemodialysis Monday and Monday, aortic stenosis status post TAVR in 2017, with h/o multiple urinary tract infection treated by Dr Borrego who also did cystoscopy on 05/22 done for recurrent UIT followed by bactrim for klebsiella and ecoli uti on 06/07/2020. Patient's urinalysis multidrug-resistant tenderness difficult to treat as outpatient. Dr. Borrego was planning to send the patient can't afford if no improvement seen. She started feeling unwell on Monday and had a full prescription of doxycycline and home which she started taking. Patient took doxycycline for 2 days with no improvement in sensation and decided to come to ER. Patient does document fever and chills at home. She denies any abdominal pain, diarrhea or constipation. Vitals evaluated in the assisted temp of 101 pulse 84 respiratory rate 18 blood pressure 138/88. Labs refuses this today WBC of 18.8 hemoglobin 10.5 MCV 102 platelet 217, INR 1, sodium 1:30, potassium 5, chloride 86, BUN 59 creatinine 6.7 glucose 219 lactic acid 2.1 and liver enzymes are normal and alkaline phosphatase 134. Urinalysis positive for UTI with positive RBC 175 WBC 182 positive leukocyte esterase and negative nitrites. Ch est x-ray suggestive of the stated infiltrate concern for atelectasis versus pneumonia. Repeat chest x-ray will be obtained tomorrow. Continue patient on cefepime 2 g every 8 hours. Patient has sepsis secondary to UTI. IV fluids can cannot be continued as patient is on dialysis and is due for her dialysis. 09/06 patient evaluated at bedside appears much confused than yesterday. His short of breath on evaluation. Patient did not get her dialysis yesterday. She is not answering to questions and repeating the phrase" everything is going opposite"patient gets confused easily and is not able to answer suspension appropriate he is oriented 2. Nephrology is evaluated the patient and recom mend dialysis today. Vitals checked this morning patient had a temp of 100.5 pulse rate 112 blood pressure 170/74 requiring 1-2 L of oxygen saturating at 94% on assessment patient's blood work today WBC has improved from 18-12.8 hemoglobin is 9.9, platelets 05[birth year]/1989 sodium has worsened from yesterday dropped to 127, potassium 5.3, chloride 84 bun is 74 creatinine 8.8, glucose 158 alkaline phosphatase is 133. Blood cultures are positive for gram-negative bacilli. Infectious disease consulted. Levofloxacin every 48 hours 500 mg IV Patient evaluated at bedside around 11 in the morning patient was doing well was lying in bed appears a little confused but was able to communicate with out any difficulty. Discussed with patient the need for possible rehab which patient was reluctant about. At around 12:38 PM, FLOR[facility] FAITH was called and the patient. He apparently patient was sleeping [place] and found to choke on food. Patient lost her pulse and became unresponsive. The nurse bedside initiated the CODE BLUE. Patient received 1 dose of epinephrine and bicarb. Pulse was o btained at 12:40 PM. Patient got intubated at 1243 as was noted to be apneic. EKG was obtained that suggested wide-complex tachycardia. Vitals reviewed had a temp of 98, pulse 88 respiratory rate 18 was saturating at 98% on 3 L and currently on 100% FiO2 Blood gas was obtained. PH of 7.2 CO2 was 72 pO2 to 209. CMP this morning was pending, stat labs were ordered in the morning which resulted close to the CODE BLUE suggested sodium of 134 potassium 5.3 chloride 93 BUN 61 creatinine 7.44. Patient received dialysis yesterday. Patient to be moved to the ICU for further management. Pulmonary consulted. 1 g of calcium gluconate given. 1 g of mag sulfate given. Labs ordered currently pending. 09/08 patient currently intubated. On assist control respiratory rate 18 and tidal volume 450 FiO2 45% PEEP of 5. ABG this morning patient had a pH of 7.47 pCO2 improved to 35 from 70 to pO2 109 bicarb 3026. CBC suggestive hemoglobin of 9.6 and C-reactive 0.5. BNP Surgicel and 35 potassium 5 chloride 97, magnesium 2.8 BUN 67 creatinine 7.69. Chest x-ray reviewed suggest basilar atelectasis. Blood culture for 24 hours and negative for E. coli. Continue with Invanz per infectious disease. Family at bedside and updated the patient's condition 09/09: Patient evaluated today in the ICU. Still currently intubated. Continues on assist control respiratory rate 18, tidal volume 450, FiO2 45% with a PEEP of 5. ABG today with a pH of 7.39, pCO2 37, pO2 131. Hemoglobin noted to drop slightly to 8.7 today, WBC 14.5, creatinine 5.0, BUN 34, potassium 4.7. Repeat chest x-ray shows stable x-ray, bilateral infiltrate with pleural effusion superimposed venous congestion. Patient noted to have no urine output, she continues on hemodialysis three times a week. Continues on Invanz per infectious diseases recommendations. The cultures show no growth to date. Patient is off propofol, plan to extubate possibly tomorrow. 09/10: Patient evaluated in the ICU still currently intubated and mechanically ventilated. She is on pressure support of 14 and CPAP, still remains lethargic and slow to wake up. Plan to extubate once patient is more awake. Repeat chest x-ray shows slightly decreased lung volume, bibasilar atelectasis consolidation small pleural effusions. Patient will be going for hemodialysis today and laboratory evaluation the WBC 14.5, hemoglobin 8.2, BUN 47, creatinine 6.8 09/11: Patient evaluated this afternoon in the ICU. Patient has a repeat chest x- ray that showed slight improvement from yesterday. Patient was successfully extubated patient is maintained on 5 L nasal cannula saturating 95%. Sputum cultures are growing Rosario albicans she is maintained on Invanz per infectious diseases recommendations. Repeat ABG shows pH 7.36, pCO2 41, pO2 162. Lab oratory values showed WBC 14.1, hemoglobin 8.7, creatinine 4.6, BUN 32. Plans for dialysis tomorrow. 09/12: Patient evaluated the bedside, remains in the ICU. Patient was given a trial of weaning yesterday and was successfully extubated. She does not require pressors at this point and she is hemodynamically stable. Blood pressure 129/59, heart rate 89. Laboratory values reveal WBC 12.4, hemoglobin 8.6, BUN 51, creatinine 6.92. Patient did undergo bedside swallow evaluation yesterday upon assessment is recommended the patient remain on ice chips only until patient is a bit stronger and able to clear secretions better. Pertinent medications were changed to IV until swallow is more developed. Repeat chest x-ray showed no interval change and is stable. Patient continues to be covered with Invanz for E. coli bacteremia secondary to urinary source per recommendations from infectious disease 09/13: Patient evaluated at the bedside in the ICU. Patient is doing well on nasal cannula, she was extubated on 09/11 and is tolerating well. Patient underwent dialysis yesterday without complication. Patient had some mild stridor yesterday, Decadron was given and since stridor has completely resolved. Patient was advanced to clear liquid diet yesterday and is tolerating well. She is more awake and able to clear secretions better. Patient has a positive for Rosario in the sputum, more likely oropharyngeal candidiasis, infectious disease his ordered nystatin swish and swallow. Patient had repeat chest x-ray showed stable left lower lobe infiltrate, small pleural effusion and inte rstitial pattern. Her vital signs have been stable heart rate of 84, blood pressure 133/44, she's 98% on 4 L via nasal cannula. Will be moved out of the ICU to the cardiac stepdown unit later on today. 09/14: Patient continues to have significant weakness but more awake and alert. She states she occasionally has coughing with food. She is complaining of abdominal pain when she coughs only. She states she has not been sleeping area and patient underwent hemodialysis 2 yesterday. No lower extremity edema. PT and OT consults added. Melatonin added. Patient is to go for modified barium s wallow today. Patient has been afebrile, heart rate 72, blood pressure 138/60, pulse ox 96% on 3 L nasal cannula. Blood sugars have been running between 151 and 231. Repeat lab work ordered for tomorrow. 09/15: She continues to have very poor appetite and dietitian has recommended enteral feedings the patient underwent modified barium swallow yesterday and speech therapy recommended upgrading diet to regular diet with thin liquids as tolerated. At this point, no enteral feedings will be initiated. Patient states that she is feeling better from yesterday. She has been afebrile, heart rate 77, blood pressure 143/63, pulse ox 97% on 3 L nasal cannula. WBC 12.4, hemoglobin 9.0, platelet count 319. Sodium 130, potassium 4.9, chloride 93, CO2 20, BUN 86 and creatinine 7.13. Blood sugars are running between 181 and 267. Anticipate discharge to subacute rehab tomorrow. 09/16: Patient ate 100% of her breakfast this morning. She states she is feeling well. No new complaints. She has been afebrile, heart rate 71, blood pressure 163/65 and pulse ox 99% on BiPAP. Blood sugars are running between [address] Obrien is planning for 4 more days of ertapenem. [place] has agreed to peripheral line for these 4 days. Discharge plan is for [facility] but once tolerating Trent[place] are completed, patient's daughter does not want the patient to go to [facility] and wants take the patient home. Discharge was held until all arrangements completed. REVIEW OF SYSTEMS Constitutional: No fever, no chills, no night sweats. No weight change. Reports weakness, reports fatigue report lethargy. Reports daytime sleepiness. EENT: No headache. No blurred vision or double vision, no loss of vision. No loss of Hearing, no ringing in the ears, no dizziness. No nasal drainage or congestion. No epistaxis. No sore throat. Lungs: Reports shortness of breath, cough, no sputum production. No wheezing. Cardiovascular: No chest pain, no lower extremity edema. No palpitations. No paroxysmal nocturnal dyspnea. No orthopnea. No lightheadedness or dizziness. No syncopal episodes. Abdominal: No abdominal pain. No nausea, vomiting. No diarrhea. No constipation. No bloody or tarry stools.. No loss of appetite. Genitourinary: No dysuria, increased frequency, urgency. No urinary retention. Musculoskeletal: No myalgias. No muscle weakness, no gait dysfunction, no frequent falls. No back pain. No neck pain. Integumentary: No wounds, no lesions. No rash or pruritus. No unusual bruising. Neurologic: No aphasia. No facial droop. Improved change in mentation. No head injury. No headache. No paralysis. No paresthesia. Psychiatric: No depression. No anxiety. No mood swings. Reports insomnia Endocrine: No abnormal blood sugars. No weight change. PHYSICAL EXAMINATION Gen: This is an obese 74-year-old female. Patient is sitting up in bed and appears to be comfortable at rest. HEENT: Head is atraumatic, normocephalic. Pupils equal, round. Sclerae is anicteric. NECK: Supple. No JVD. No lymphadenopathy. No thyromegaly. LUNGS: Clear to auscultation. No wheezes or rhonchi. No intercostal retractions. HEART: Regular rate and rhythm. 3/6 systolic murmur. ABDOMEN: Soft. Bowel sounds are present. No masses. No tenderness. EXTREMITIES: No pedal edema. No calf tenderness. NEUROLOGICAL: Patient is awake, alert and oriented x3. Cranial nerves 2 through 12 are grossly intact. ASSESSMENT AND PLAN 1. Sepsis secondary to E. coli UTI and E. coli bacteremia Continue Ertapenem per infectious disease's recommendations. Blood culture negative, previous blood culture positive for E. coli 2. Bilateral pleural effusion, small posterior infiltrate consistent with atelectasis. Repeat x-rays show improvement 3. Cardiac arrest unresponsive with loss of pulse CODE BLUE called on 09/07. Secondary to choking on her food. Status was epinephrine and bicarb Initial rhythm on record placed. EKG with wide complex tachycardia. Status post calcium gluconate and 1 g of magnesium sulfate. 4. Acute hypoxic hypercapnic respiratory failure intubated during the CODE BLUE. Likely aspiration. Vascular Specialists consulted. Patient successfully extubated, aspiration precautions in place 5. Wide complex tachycardia baseline EKG with sinus rhythm with bifascicular lock. Avoid QT prolonging medication. Cardiology consulted. Status post one dose of calcium gluconate. 1 g magnesium. 6. Status post Recurrent UTI, status post cystoscopy, by Dr. Borrego, previous culture positive for E. coli and klebsiella during last cultures chronic prophylactic antibiotics including nitrofurantoin and Mandelamine 7. Oliguria secondary to end-stage kidney disease, making less then 20 mL per day, consult with nephrology, on hemodialysis Monday and Monday. Levy catheter in place 8. End-stage renal disease on hemodialysis Monday and Monday. 9. Acute on chronic diastolic heart failure. Continue hemodialysis. Continue home dose of Lasix at 80 mg twice daily as well as metoprolol 50 mg daily 10. History of aortic stenosis status post TAVR. 11. Hypertension cardiovascular disease. Continue amiodarone 100 mg daily and metoprolol. 12. Paroxysmal atrial fibrillation. Continue amiodarone 100 mg once daily and metoprolol a history of GI bleed no past several years ago, not on any anticoagulation due to increased risk of fall and GI bleeding 13. History of myocardial infarction and coronary artery disease status post LAD stent in July 2017 and left circumflex in August 2017. Continue Toprol-XL 50 mg once daily, and Plavix 14. Diabetes mellitus type 2, insulin requiring. Continue insulin sliding scale. 15. GERD continue Protonix. 16. History of hyperlipidemia continue Zetia 10mg daily 17. Obstructive sleep apnea, on CPAP machine at night, along with O2 supplementation 18. Diabetic peripheral neuropathy continue gabapentin 300 mg twice daily. 19. Recurrent depression. Continue Cymbalta 60 mg orally once daily 20. Metabolic encephalopathy likely secondary to uremia and sepsis. on Dialysis 21. Hyponatremia secondary to volume overload. Continue dialysis, Monday, , Monday schedule. Nephrology following the patient 22. Oral pharyngeal candidiasis. Continue nystatin swish and swallow 23. Severe protein calorie malnutrition due to lack of oral intake for extended period of time. Speech therapy advance patient's diet to regular with thin liquids and patient is eating well yesterday especially when family found her. 24. DVT prophylaxis. Heparin subcu every 12 hours 25. GI prophylaxis continue Protonix. 26. COVID-19 testing negative. Patient has been hospitalized during a pandemic. DISCHARGE PLAN Home with family and IV abx. Impression and plan of care have been directed as dictated by the signing physician. Jessenia Gonzalez nurse practitioner acting as scribe for signing physician. Objective - Vital Signs Vital signs: Vital Signs Temp 97.7 F 09/17/20 09:00 Pulse 69 09/17/20 09:00 Resp 18 09/17/20 09:00 BP 146/57 09/17/20 09:00 Pulse Ox 99 09/17/20 09:00 Intake & Output 09/16/20 09/17/20 09/17/20 18:59 06:59 18:59 Intake Total 420 Output Total 0 0 Balance 420 0 0 Weight 96.1 kg Intake: Oral 420 Output: Stool 0 0 Other: Voiding Method Diaper Diaper Diaper ABP, PAP, CO, CI - Last Documented Arterial Blood Pressure 132/48 - Labs CBC & Chem 7: 09/15/20 07:34 09/15/20 07:34 Labs: Abnormal Lab Results - Last 24 Hours (Table) 09/16/20 09/16/20 09/16/20 Range/Units 11:46 16:54 20:03 POC Glucose (mg/dL) 226 H 157 H 187 H (75-99) mg/dL 09/17/20 09/17/20 09/17/20 Range/Units 00:08 06:06 11:53 POC Glucose (mg/dL) 151 H 224 H 126 H (75-99) mg/dL
--- NOTE | 2020-09-17 12:27 | P.PN ---
Subjective Progress Note Date: 09/17/20 Principal diagnosis: Cardiac arrest This is a 74-year-old female primarily a patient of Dr. Farias, known history of multiple medical problems including chronic atrial fibrillation, mostly paroxysmal in nature, coronary artery disease, previous [place], history of obstructive sleep apnea on CPAP at home, history of end-stage renal disease on hemodialysis history of aortic stenosis and previous T aVR in 2018. History of multiple urinary tract infections. Patient was admitted on 09/05/2020, her admitting diagnosis was sepsis secondary to urinary tract infection and patient was seen by infectious disease on consultation. Has been on proper antibiotics. Patient has been on Invanz, and she was being followed by many consultants on the case. Initially, the patient was on cefepime but this was later changed to Invanz. And she had multiple positive blood cultures for E. coli. At any rate patient was on the medical floor today, and around 1: 19, patient had a CODE BLUE. CPR was started, apparently patient was feeding at the time she had CODE BLUE. Questionable choking on her hamburger. Patient had no pulse, and went unresponsive. Spontaneous circulation was noted after 1 round of CPR and she was having episodes of apnea. Patient was intubated by EQUIPMENT MAINTENANCE TECHNICIAN, 12-lead EKG at the time showed sinus tachycardia without any ischemic changes. Patient was eventually placed on mechanical ventilation, and she was transferred to the ICU. I saw the patient shortly after she arrived to the ICU, and reviewed her ABG also reviewed her chest x-ray. Her chest x-ray showed endotracheal tube about 4.8 cm from the level of the incolás. There was no evidence of infiltrate, minimal atelectasis is noted. ABG showed a pO2 of 219 pCO2 of 72 pH of 7.22, hence her ventilator settings were adjusted by increasing her assist control rate of mechanical ventilation, and drop down her FiO2 to 50%. Repeat ABG is pending. Labs were basically unremarkable except for BUN of 51 creatinine of 5.58, remind you patient is known to have history of chronic renal failure and on hemodialysis. Lactic acid was noted to be at 2.2 and her watson virus PCR was negative. Patient initial complaint on admission was mostly symptoms of weakness with symptoms of urinary tract infection and her initial blood cultures and urine cultures were positive for E. coli. Looking at the chart, patient received 1 dose of epinephrine and 1 amp of bicarb patient was actually intubated at 1243, EKG showed wide complex tachycardia after return of spontaneous circulation. Last dialysis on this patient was yesterday. Patient was reevaluated today on 09/08/2020, remains in the ICU, intubated and mechanically ventilated. Her assist control rate is 18 tidal volume 450 FiO2 45% PEEP of 5 ABG showed a pO2 of 109 pCO2 of 35 pH of 7.47. Patient is on propofol at 30 mcg/kg/m she is off norepinephrine and her IV fluid at KVO. Patient remains on Invanz for her E. coli urinary tract infection and bacteremia. Chest x-ray showed basilar atelectasis, difficult to rule out pneumonia, and she does have some interstitial edema. WBC count today is 12.3 hemoglobin is 9.6. Electrolytes are normal however her BUN is 67 creatinine 7.69 Patient was reevaluated today on 09/09/2020, remains intubated and mechanically ventilated, remains in the ICU. She is on assist control rate of 18 tidal volume 450 FiO2 45% PEEP of 5 ABG showed a pO2 of 131 pCO2 of 37 pH of 7.39. Remains on propofol at 55 mcg/kg/m, not requiring any pressors, not requiring any paralytics. Patient had slow weaning yesterday, however she was getting a bit agitated while on mechanical ventilation, did not get a chance to give her a weaning trial, hence we'll try to do that today. My plan is to hold propofol, assess weaning parameters, possibly placed the patient on pressure support of 8 and CPAP, and if tolerated will proceed with extubating the patient. Chest x- ray shows minimal infiltrates especially at the right base. Patient is empirically on antibiotics. WBC count is 14.5 hemoglobin is 8.7 and lites are normal BUN is 34 creatinine 5.01 Reevaluated today on 09/10/2020, patient remains in the ICU, intubated and mechanically ventilated. Patient is extremely slow to wake up, remains lethargic, although she seems to be doing well with a pressure support of 14 and CPAP. I'm a bit reluctant to extubate the patient at this point since she is not fully awake, and I have a feeling that she will not be able to clear her s ecretions if extubated early. She was on assist control rate of 18 tidal volume is 450 FiO2 45% PEEP of 5 ABG showed a pO2 of 145 pCO2 of 36 pH of 7.37 I cut down her FiO2 to 45% and transition the patient to a pressure support with CPAP mode of mechanical ventilation planning to hopefully extubated the patient down the line. Patient remains off sedation. Propofol has been off for the last 24 hours. Relative fluids at KVO, tube feeds are on hold at present. Chest x-ray is showing some mild fluid overload, patient will be dialyzed, and the plan is to remove 2 L of fluid today. Left lites are normal renal profile is abnormal with BUN of 47 creatinine 6.81. Her CBC count is 14.5 lobe is 8.2. Blood sugar is in the 70s Reevaluated today on 09/11/2020, patient remains intubated and mechanically ventilated. Her assist control rate is 18 tidal volume is 450 FiO2 45% and PEEP of 5. Patient is hemodynamically stable, not requiring any pressors. Patient is being treated for cardiac arrest and possible aspiration pneumonia. Her ABG today looks great with a pO2 of 136 pCO2 of 38 pH of 7.39. Patient is definitely more awake and arousable this morning, follows simple instructions, and while I'm at bedside, I transition the patient to a pressure support mode of mechanical ventilation with a pressure support of 8 and CPAP. And I'm planning to give the patient a trial of weaning and possibly extubation today. In the meantime her tube feeding was placed on hold and her stomach was suctioned. Patient was noted to move could tidal volume on pressure support of 8, and her respiratory rate was in the teens. After 1 hour of pressure support and CPAP, repeat ABG showed a pO2 of 162 and CO2 of 41 pH of 7.36, hence proceeded to extubating the patient to a nasal cannula. Chest x-ray shows improvement in her bibasilar atelectasis/infiltrates. Small tiny left pleural effusion is suspected CBC showed WBC count of 14.1 hemoglobin of 8.7. leukocytosis noted. Electrolytes are normal bicarb is 20 to and BUN is 32 creatinine 4.68 Patient was reevaluated today on 09/12/2020, patient was extubated yesterday, tolerated the extubation well, scheduled to undergo dialysis again today. Last night I was called about this patient having some stridor. Recommended Decadron, 2 doses were given since last night, and her stridor has completely resolved. Patient is resting in bed, she is on 4 L nasal cannula, O2 sats was 96%. Remains on Lasix remains on hemodialysis. Remains on ice chips, and I would advance her diet to clear diet today. IV fluids remains at KVO. Remains on antibiotics for presumptive aspiration pneumonia. Chest x-ray today showed mostly atelectasis at the bases. Doubt underlying pneumonia. Patient is awake, follows instructions, not requiring any BiPAP anymore. And I will continue to monitor the patient in the ICU for the next 24 hours, and likely transfer to a cardiac floor in the next 24 hours if she continues to do well. Reevaluated today on 09/13/2020, patient remains in the ICU, her extubation has been successful so far. She is now on 4 L nasal cannula with O2 saturation of 98%. Patient was placed on BiPAP last night mostly because she has a CPAP machine and she did not bring her own. Patient had hemodialysis yesterday, and 2-1/2 L were removed yesterday. Chest x-ray minimal left basilar atelectasis. Overall the patient is doing quite well, and no major cardiac events over the last few days. Patient denies any cough wheezing or shortness of breath denies any nausea vomiting abdominal pain. Hence I would recommend that to transfer the patient out of the ICU to a monitor bed on the cardiac floor he had no plans for dialysis today. The results of his 14.9 hemoglobin is 9.1 electrodes are normal BUN is 44 creatinine 4.62. On 09/14/2020 patient seen in follow-up on medical surgical floor. She is awake and alert, she is resting comfortably in bed, currently on 3 L of oxygen her pulse ox of 96%, she's been wearing a BiPAP support at bedtime with pressures of 12 and 6 and FiO2 of 35%, she has been afebrile, she's had no complaints of chest discomfort, no significant cough or phlegm production. Patient had a hemodialysis treatment on 09/12/2020 would removal of 2.5 L of fluid. Today's labs have been reviewed, white blood cell count is 14.9, hemoglobin is 9.1, electrolytes were within normal limits, her BUN was 44, creatinine is 4.62. Patient remains on Invanz, and her urine and blood cultures showed E. coli. ID service is following and managing the antibiotics. On 09/15/2020 patient seen in follow-up on selective care unit, she is awake and alert, she is resting comfortably in bed, currently on 3 L of oxygen her pulse ox is 95-97%, she's been afebrile, hemodynamically she's been stable, breathing seems to be nonlabored, she did wear BiPAP last night with pressures of 12/60 FiO2 of 35%, she has been utilizing and at bedtime and as needed during the day, no cough or congestion, no complaints of chest discomfort, no altered mentation, she is answering questions appropriately. He remains on Invanz for possibility of sepsis, her urine culture showed E. coli, and her blood culture showed E. coli as well, no evidence of ESBL, sputum culture was only positive for Rosario albicans, follow blood cultures have been negative. ID service is following and managing the antibiotics, patient's last hemodialysis treatment was on 09/12/2020 would removal of 2.5 L of fluid. The patient is seen today 09/16/2020 in follow-up on the selective care unit. She is currently resting comfortably in bed. Awake and alert in no acute distress. She is maintaining O2 saturations in the 90s on 3 L/m per nasal ca nnula. Alternating with BiPAP. She's afebrile. Chest x-ray continues to show some basilar atelectasis with improved aeration. Glucose 226. She remains on DuoNeb inhalations, antibiotics in the form of ertapenem. Follow-up blood cultures revealed no growth. The patient is seen today 09/17/2020 in follow-up on the selective care unit. She is currently resting comfortably in bed. Awake and alert in no acute distress. Currently receiving hemodialysis. Blood glucose 126. Continued on bronchodilators, Invanz Objective - Vital Signs Vital signs: Vital Signs Temp 97.7 F 09/17/20 09:00 Pulse 69 09/17/20 09:00 Resp 18 09/17/20 09:00 BP 146/57 09/17/20 09:00 Pulse Ox 99 09/17/20 09:00 Intake & Output 09/16/20 09/17/20 09/17/20 18:59 06:59 18:59 Intake Total 420 Output Total 0 0 Balance 420 0 0 Weight 96.1 kg Intake: Oral 420 Output: Stool 0 0 Other: Voiding Method Diaper Diaper Diaper ABP, PAP, CO, CI - Last Documented Arterial Blood Pressure 132/48 - Exam GENERAL EXAM: Alert, very pleasant, 74-year-old female patient, on 3 L of oxygen and the pulse ox of 99%, resting in bed comfortable in no apparent distress. HEAD: Normocephalic/atraumatic. EYES: Normal reaction of pupils, equal size. Conjunctiva pink, sclera white. NOSE: Clear with pink turbinates. THROAT: No erythema or exudates. NECK: No masses, no JVD, no thyroid enlargement, no adenopathy. CHEST: No chest wall deformity. Symmetrical expansion. LUNGS: Equal air entry with diminished breath sounds and mild crackles at the bases CVS: Regular rate and rhythm, normal S1 and S2, no gallops, no murmurs, no rubs ABDOMEN: Soft, nontender. No hepatosplenomegaly, normal bowel sounds, no guarding or rigidity. EXTREMITIES: No clubbing, no edema, no cyanosis, 2+ pulses and upper and lower extremities. MUSCULOSKELETAL: Muscle strength and tone normal. SPINE: No scoliosis or deformity SKIN: No rashes CENTRAL NERVOUS SYSTEM: No focal deficits, tone is normal in all 4 extremities. PSYCHIATRIC: Alert and oriented -3. Appropriate affect. Intact judgment and insight. - Labs CBC & Chem 7: 09/15/20 07:34 09/15/20 07:34 Labs: Abnormal Lab Results - Last 24 Hours (Table) 09/16/20 09/16/20 09/17/20 Range/Units 16:54 20:03 00:08 POC Glucose (mg/dL) 157 H 187 H 151 H (75-99) mg/dL 09/17/20 09/17/20 Range/Units 06:06 11:53 POC Glucose (mg/dL) 224 H 126 H (75-99) mg/dL Assessment and Plan Assessment: 1 Acute hypoxic and acute hypercapnic respiratory failure secondary to cardiac arrest due to sepsis and possible septic shock. Patient was placed on mechanical ventilator, and successfully weaned and extubated on 09/11/2020 2 Sepsis related to E. coli urinary tract infection and positive bacteremia, currently on ertapenem 3 Chronic kidney disease on hemodialysis 4 Acute on chronic diastolic CHF 5 History of aortic stenosis and previous [place] 6 History of hypertension 7 History of paroxysmal A. fib 8 History of coronary artery disease and previous stent placement in the LAD and the left circumflex 9 Type 2 diabetes mellitus 10 History of GERD/reflux 11 Dyslipidemia 12 Obstructive sleep apnea on CPAP 13 History of diabetes and diabetic neuropathy 14 History of depression 15 Stridor secondary to recent intubation and mechanical ventilation, resolved Plan: The patient was seen and evaluated by Dr. Jesus Tillman from the pulmonary standpoint Antibiotics per ID services Discharge planning in place I, the cosigning physician, performed a history & physical examination of the patient. Lungs sounds with few crackles at the bases. Maintaining good O2 satu rations in the 90s on 3 L/m per nasal cannula I discussed the assessment and plan of care with my nurse practitioner, Aruna Aquino. I attest to the above note as dictated by her.
[2020-09-17] MEDS: METOPROLOL SUCCINATE (ER) 50 MG TAB.ER.24H PO SCH (12:49)
[2020-09-17] MEDS: AMIODARONE 100 MG TAB PO SCH (12:49)
[2020-09-17 13:20] VITALS: BP 132/62; PULSE 75; RESP 19; TEMP 97.1
--- NOTE | 2020-09-17 14:05 | PN ---
PROGRESS NOTE Patient is seen for followup for end-stage renal disease. She is currently seen on dialysis tolerating her treatment fairly well. PHYSICAL EXAMINATION: On examination today, blood pressure is 146/57, heart rate 69 per minute. She is afebrile. EXAMINATION OF THE HEART: S1, S2. EXAMINATION OF THE LUNGS: Decreased breath sounds at bases. Abdomen is soft, nontender. Examination of lower extremities shows no significant edema. LABS: I do not see any labs from today. Potassium was 4.9 on 09/15/2020. ASSESSMENT: 1. End-stage renal disease, on hemodialysis on a Monday, , Monday schedule. 2. Status post cardiac arrest. 3. Urinary tract infection with Escherichia coli bacteremia and urinary tract infection. 4. Chronic kidney disease mineral bone disorder. 5. Anemia of chronic disease, maintained on Aranesp. 6. Chronic atrial fibrillation, maintained on amiodarone. PLAN: Continue with the phosphate binders. Encourage increased oral intake. Decrease UF to about 1 L today. MMODL / IJN: [id number] /
[2020-09-17] MEDS: ERTAPENEM 0.5 GM in SODIUM CHLORIDE 0.9% 50 ML IVPB SCH (14:07)
[2020-09-17 15:24] VITALS: BMI 38.7
--- NOTE | 2020-09-17 15:39 | P.PN ---
Progress Note - Text Progress Note Date: 09/17/20 REASON FOR FOLLOWUP: E coli UTI and bacteremia. INTERVAL HISTORY: The patient remains to be afebrile. The patient is breathing comfortably on nasal cannula this morning. The patient denies having any chest pain. Occasional cough. No abdominal pain or diarrhea. PHYSICAL EXAMINATION: Blood pressure 150/60 with a pulse of 60, temperature 98. She is 98% on 3 L nasal cannula. General description is an elderly female lying in bed in no distress. RESPIRATORY SYSTEM: Unlabored breathing. Clear to auscultation anteriorly. HEART: S1, S2. Regular rate and rhythm. ABDOMEN: Soft. No tenderness. LABS: repeat Blood culture has been negative so far. DIAGNOSTIC IMPRESSION AND PLAN: Patient with Escherichia coli bacteremia with MULTIPLE ANTIBIOTIC ALLERGIES. Repeat blood culture has been negative. Urine grew the same pathogen. Patient to continue with Invanz 500 mg daily for another 3 days to finish her 2-week course of therapy and close outpatient followup.
== END 2020-09-17 15:18 | disposition home or self-care (01) | DRG 871 ==
LOC: EC 10:03 → 4SSUR 11:19 → 2SICU 09-07 12:56 → 3SCARD 09-13 13:24
PROVIDERS: ADMIT Internal Medicine; ATTEND Internal Medicine
PROC: 03HY32Z Insertion of Monitoring Device into Upper Artery, Percutaneous Approach (ICD-10-PCS; 2020-09-07)
PROC: 4A133B1 Monitoring of Arterial Pressure, Peripheral, Percutaneous Approach (ICD-10-PCS; 2020-09-07)
PROC: 4A133J1 Monitoring of Arterial Pulse, Peripheral, Percutaneous Approach (ICD-10-PCS; 2020-09-07)
PROC: 3E033XZ Introduction of Vasopressor into Peripheral Vein, Percutaneous Approach (ICD-10-PCS; 2020-09-07)
PROC: 5A1945Z Respiratory Ventilation, 24-96 Consecutive Hours (ICD-10-PCS; 2020-09-07)
PROC: 5A12012 Performance of Cardiac Output, Single, Manual (ICD-10-PCS; principal; 2020-09-07 16:20)
PROC: 0BH17EZ Insertion of Endotracheal Airway into Trachea, Via Natural or Artificial Opening (ICD-10-PCS; 2020-09-07 16:20)
PROC: 5A09457 Assistance with Respiratory Ventilation, 24-96 Consecutive Hours, Continuous Positive Airway Pressure (ICD-10-PCS; 2020-09-16)
DX: A41.51 Sepsis due to Escherichia coli [E. coli] (principal); N18.6 End stage renal disease; G93.41 Metabolic encephalopathy; I46.8 Cardiac arrest due to other underlying condition; J96.02 Acute respiratory failure with hypercapnia; J96.01 Acute respiratory failure with hypoxia; I50.33 Acute on chronic diastolic (congestive) heart failure; R65.21 Severe sepsis with septic shock; E43 Unspecified severe protein-calorie malnutrition; N39.0 Urinary tract infection, site not specified; I13.2 Hypertensive heart and chronic kidney disease with heart failure and with stage 5 chronic kidney disease, or end stage renal disease; F33.9 Major depressive disorder, recurrent, unspecified; I48.20 Chronic atrial fibrillation, unspecified; E87.1 Hypo-osmolality and hyponatremia; J98.11 Atelectasis; Z16.24 Resistance to multiple antibiotics; B37.0 Candidal stomatitis; B37.89 Other sites of candidiasis; I47.1 Supraventricular tachycardia; E11.42 Type 2 diabetes mellitus with diabetic polyneuropathy; I48.0 Paroxysmal atrial fibrillation; Z99.2 Dependence on renal dialysis; E11.22 Type 2 diabetes mellitus with diabetic chronic kidney disease; Z79.4 Long term (current) use of insulin; E11.51 Type 2 diabetes mellitus with diabetic peripheral angiopathy without gangrene; Z20.822 Contact with and (suspected) exposure to COVID-19; I25.10 Atherosclerotic heart disease of native coronary artery without angina pectoris; I25.2 Old myocardial infarction; Z82.5 Family history of asthma and other chronic lower respiratory diseases; B96.20 Unspecified Escherichia coli [E. coli] as the cause of diseases classified elsewhere; E78.5 Hyperlipidemia, unspecified; Z95.2 Presence of prosthetic heart valve; Z95.5 Presence of coronary angioplasty implant and graft; K21.9 Gastro-esophageal reflux disease without esophagitis; G47.33 Obstructive sleep apnea (adult) (pediatric); E66.9 Obesity, unspecified; M89.8X9 Other specified disorders of bone, unspecified site; D63.1 Anemia in chronic kidney disease; Z90.710 Acquired absence of both cervix and uterus; Z79.899 Other long term (current) drug therapy; Z79.02 Long term (current) use of antithrombotics/antiplatelets; Z79.82 Long term (current) use of aspirin; Z87.440 Personal history of urinary (tract) infections; Z91.81 History of falling; I08.3 Combined rheumatic disorders of mitral, aortic and tricuspid valves; G56.03 Carpal tunnel syndrome, bilateral upper limbs; H26.9 Unspecified cataract; E86.1 Hypovolemia; T17.928A Food in respiratory tract, part unspecified causing other injury, initial encounter; I45.10 Unspecified right bundle-branch block; I27.20 Pulmonary hypertension, unspecified; Z88.1 Allergy status to other antibiotic agents; Z68.38 Body mass index [BMI] 38.0-38.9, adult; J44.9 Chronic obstructive pulmonary disease, unspecified; M89.9 Disorder of bone, unspecified; Z82.49 Family history of ischemic heart disease and other diseases of the circulatory system
CPT/HCPCS: 36410; 36415; 36600; 71045; 71046; 74230; 76937; 80048; 80053; 81001; 82805; 83605; 83690; 83735; 84145; 85025; 85027; 85610; 85730; 86706; 87040; 87070; 87077; 87086; 87186; 87205; 87340; 87635; 90935; 92950; 93005; 93308; 94002; 94003; 94640; 94660; 94760; 99285

== ENCOUNTER 2020-10-22 10:06 | Emergency (ER) | payer MEDICARE ==
[2020-10-22 10:12] VITALS: RESP 18; TEMP 98.7
--- NOTE | 2020-10-22 10:27 | ED ---
General Adult HPI - General Chief complaint: Fall Stated complaint: Fall Time Seen by Provider: 10/22/20 10:10 Source: patient, EMS, RN notes reviewed, old records reviewed Mode of arrival: EMS Limitations: no limitations - History of Present Illness Initial comments: This is a 75-year-old female presents emergency Department patient complains of left knee pain. Patient states she slid out of her wheelchair 2 days ago and landed on top of her leg and her knee. Patient states since then he needed to come a little bit swollen and very difficult to move. Patient was supposed to go to dialysis today at 10:00 but she made arrangements to go tomorrow. Patient has no hip pain patient denies ankle pain. Patient denies any head or neck. Patient denies any other complaints at this time - Related Data Home Medications Medication Instructions Recorded Confirmed DULoxetine HCL [Cymbalta] 60 mg PO DAILY 08/04/14 10/22/20 Amiodarone HCl [Pacerone] 100 mg PO DAILY 11/22/15 10/22/20 Ezetimibe [Zetia] 10 mg PO DAILY 11/22/15 10/22/20 Omeprazole 20 mg PO DAILY 12/25/16 10/22/20 Magnesium Oxide [Mag-Ox] 250 mg PO DAILY 05/05/17 10/22/20 Aspirin [Adult Low Dose Aspirin EC] 81 mg PO DAILY 03/02/18 10/22/20 Cranberry 4200mg 4,200 mg PO BID 01/12/20 10/22/20 Metoprolol Succinate (ER) [Toprol 50 mg PO DAILY 01/12/20 10/22/20 XL] Sevelamer [Renvela] 800 mg PO [id number]-[id number] 01/12/20 10/22/20 Ferrous Sulfate [Iron (65 MG 325 mg PO DAILY 06/09/20 10/22/20 Elemental)] Vitamin C/Biotin [Hair, Skin and 1 tab PO BID 06/09/20 10/22/20 Nails] Cholecalciferol [Vitamin D3 (25 50 mcg PO DAILY 09/05/20 10/22/20 Mcg = 1000 Iu)] Midodrine HCl [ProAmatine] 10 mg PO DIRECTED PRN 09/05/20 10/22/20 Gabapentin 300 mg PO BID 10/22/20 10/22/20 INSULIN ASPART (NovoLOG) [NovoLOG See Protocol SQ ACHS 10/22/20 10/22/20 (formulary)] Insulin Glargine,Hum.rec.anlog 20 unit SQ BID 10/22/20 10/22/20 [Lantus Solostar] Previous Rx's Medication Instructions Recorded Clopidogrel [Plavix] 75 mg PO DAILY #30 tab 08/21/17 Methenamine Hippurate 1 gm PO BID #60 tablet 06/12/20 Darbepoetin Aron [Aranesp] 40 mcg SQ Q7D syringe 09/16/20 Furosemide [Lasix] 40 mg PO DAILY #0 09/16/20 Ipratropium-Albuterol Nebulize 3 ml INHALATION RT-Q4H PRN ml 09/16/20 [Duoneb 0.5 mg-3 mg/3 ml Soln] Melatonin 6 mg PO HS tablet 09/16/20 Allergies Allergy/AdvReac Type Severity Reaction Status Date / Time KUSHAL Inhibitors Allergy Swelling Verified 10/22/20 12:30 ARB-Angiotensin Receptor Allergy Swelling Verified 10/22/20 12:30 Antagonist cephalexin monohydrate Allergy Rash/Hives, Verified 10/22/20 12:30 [From Keflex] MOUTH SWELLING propoxyphene HCl AdvReac Hallucinati Verified 10/22/20 12:30 [From Darvon] ons [id number]-[id number] Reductase AdvReac Myalgia Verified 10/22/20 12:30 Inhibitor Review of Systems ROS Statement: Those systems with pertinent positive or pertinent negative responses have been documented in the HPI. ROS Other: All systems not noted in ROS Statement are negative. Past Medical History Past Medical History: Atrial Fibrillation, Coronary Artery Disease (CAD), Heart Failure, Diabetes Mellitus, Dialysis, GERD/Reflux, GI Bleed, Hyperlipidemia, Hyp ertension, Myocardial Infarction (MA), Pneumonia, Renal Disease, Sleep Apnea/CPAP/BIPAP, Vascular Disorder Additional Past Medical History / Comment(s): HEMODIALYSIS- MONDAY,MONDAY,AND MONDAY . USES WHEELCHAIR-TRANSFERS ONLY -CAN TAKE A COUPLE OF STEPS, hx. GI bleed >year ago, SOB w/exertion, uses oxygen prn @2l, see Dr Combs [facility] & [facility]. TAVR Last Myocardial Infarction Date:: 2015 History of Any Multi-Drug Resistant Organisms: MRSA Date of last positivie culture/infection: 02/09/18 MDRO Source:: LT THIRD TOE Past Surgical History: Back Surgery, Cholecystectomy, Heart Catheterization, Heart Catheterization With Stent, Hysterectomy, Orthopedic Surgery Additional Past Surgical History / Comment(s): PCI with stents, several back surgeries-lumbar, bilateral carpal tunnel releases, bilateral cataract removals, port then fistula for hemodialysis. PTBA to left leg 03-02-18. TAVR in [address] Rock at [facility] Past Anesthesia/Blood Transfusion Reactions: Previous Problems w/ Anesthesia Additional Past Anesthesia/Blood Transfusion Reaction / Comment(s): Confusion that resolved. Date of Last Stent Placement:: 10/06/17 Past Psychological History: No Psychological Hx Reported Smoking Status: Never smoker Past Alcohol Use History: None Reported Past Drug Use History: None Reported - Past Family History Father Additional Family Medical History / Comment(s): Brain aneurysm ; age 72 Sister(s) Family Medical History: Hypertension Additional Family Medical History / Comment(s): Aortic stenosis; mitral valve disease Mother Family Medical History: No Reported History, AFIB, CVA/TIA, Hypertension Additional Family Medical History / Comment(s): mother age 83 Daughter(s) Family Medical History: Asthma Son(s) Family Medical History: Asthma General Exam - General Exam Comments Initial Comments: GENERAL Patient is well-developed and well-nourished. Patient is in mild distress. EYES Patient's pupils are equal and round. Extraocular motion is intact SKIN Unremarkable NEURO The patient is alert and oriented 3 PYSCH Patient has normal interpersonal interactions. MUSCULOSKELETAL Left knee has an effusion and is tender to the suprapatellar area. Patient has no hip pain or ankle pain Limitations: no limitations Course Vital Signs 10/22/20 10:07 Temperature 98.7 F Pulse Rate 86 Respiratory 18 Rate Blood Pressure 131/56 O2 Sat by Pulse 98 Oximetry Medical Decision Making - Medical Decision Making EKG shows normal sinus rhythm at 80 bpm NV interval 282 QRS 150 QT interval 438 QTC is 529. Patient's EKG shows a right bundle branch block. Patient has a distal femur fracture is angulated. I spoke with the PA for Dr. Crenshaw and he eventually called me back and wanted the patient transferred down to [facility]. I spoke with Dr. Cronin he agreed to accept the patient I spoke with the transfer line and they agreed to accept the patient. Patient will be transferred down to [facility] - Lab Data Result diagrams: 10/22/20 12:30 10/22/20 12:30 Lab Results 10/22/20 10/22/20 Range/Units 12:30 12:30 WBC 11.2 H (3.8-10.6) k/uL RBC 3.29 L (3.80-5.40) m/uL Hgb 9.9 L (11.4-16.0) gm/dL Hct 31.1 L (34.0-46.0) % MCV 94.6 D (80.0-100.0) fL MCH 30.0 (25.0-35.0) pg MCHC 31.7 (31.0-37.0) g/dL RDW 17.0 H (11.5-15.5) % Plt Count 282 (150-450) k/uL MPV 8.2 Neutrophils % 79 % Lymphocytes % 10 % Monocytes % 5 % Eosinophils % 5 % Basophils % 1 % Neutrophils # 8.9 H (1.3-7.7) k/uL Lymphocytes # 1.1 (1.0-4.8) k/uL Monocytes # 0.5 (0-1.0) k/uL Eosinophils # 0.6 (0-0.7) k/uL Basophils # 0.1 (0-0.2) k/uL Hypochromasia Slight Poikilocytosis Slight Anisocytosis Slight Sodium 130 L (137-145) mmol/L Potassium 3.9 (3.5-5.1) mmol/L Chloride 87 L (98-107) mmol/L Carbon Dioxide 24 (22-30) mmol/L Anion Gap 19 mmol/L BUN 67 H (7-17) mg/dL Creatinine 5.01 H (0.52-1.04) mg/dL Est GFR (CKD-EPI)AfAm 9 (>60 ml/min/1.73 sqM) Est GFR (CKD-EPI)NonAf 8 (>60 ml/min/1.73 sqM) Glucose 188 H (74-99) mg/dL Calcium 9.4 (8.4-10.2) mg/dL Total Bilirubin 0.8 (0.2-1.3) mg/dL AST 25 (14-36) U/L ALT 18 (4-34) U/L Alkaline Phosphatase 227 H (38-126) U/L Total Protein 7.8 (6.3-8.2) g/dL Albumin 4.3 (3.5-5.0) g/dL Disposition Clinical Impression: Femoral distal fracture Disposition: OTHER INSTITUTION NOT DEFINED Referrals: Stevenson Farias MD [Primary Care Provider] - 1-2 days - Out of Hospital Transfer - Req. Specs Out of Hospital Transfer - Requested Specifics: Other Emergency Center ([facility])
--- NOTE | 2020-10-22 11:42 | XR ---
Left knee and left femur HISTORY: Trauma and pain 2 views the left knee, frontal and lateral views of the left femur on 3 images Views are nonstandard. There is a distal metaphyseal left femoral fracture with posterior displacemen t and angulation. Bone mineralization is reduced. There is associated soft tissue swelling. Dense vas cular calcifications are noted. Vascular stent is noted incidentally in the distribution of the anter ior tibial artery. IMPRESSION: Distal left femoral fracture
--- NOTE | 2020-10-22 11:43 | XR ---
EXAMINATION TYPE: XR chest 1V portable DATE OF EXAM: 10/22/2020 Comparison: 09/16/2020 Clinical History: 75-year-old female Short of breath Findings: Heart is enlarged. Stable nonspecific left hilar density, possible embolic methylmethacrylate, unchan ged. Endovascular aortic valve replacement. Interstitial/vascular prominence. Hazy diffuse densities relating to overlying soft tissue and portable technique. Impression: Cardiomegaly. Correlate for underlying mild CHF with pulmonary vascular congestion.
[2020-10-22 12:52] LABS: Albumin 4.3 g/dL (3.5-5.0); Calcium 9.4 mg/dL (8.4-10.2); Potassium 3.9 mmol/L (3.5-5.1); Total Bilirubin 0.8 mg/dL (0.2-1.3); Total Protein 7.8 g/dL (6.3-8.2)
[2020-10-22 12:57] LABS: Anisocytosis Slight; Basophils # (A) 0.1 k/uL (0-0.2); Basophils % (A) 1 %; Eosinophils # (A) 0.6 k/uL (0-0.7); Eosinophils % (A) 5 %; HCT 31.1 % (34.0-46.0); HGB 9.9 gm/dL (11.4-16.0); Hypochromasia Slight; Lymphocytes # (A) 1.1 k/uL (1.0-4.8); Lymphocytes % (A) 10 %; MCHC 31.7 g/dL (31.0-37.0); Mean Platelet Volume 8.2; Monocytes # (A) 0.5 k/uL (0-1.0); Monocytes % (A) 5 %; Neutrophils # (A) 8.9 k/uL (1.3-7.7); Neutrophils % (A) 79 %; Platelet Count 282 k/uL (150-450); Poikilocytosis Slight; RBC 3.29 m/uL (3.80-5.40); WBC 11.2 k/uL (3.8-10.6)
[2020-10-22 12:59] LABS: INR 0.9 (<1.2); Prothrombin Time 9.8 sec (9.0-12.0)
[2020-10-22 13:05] LABS: MCV 94.6 fL (80.0-100.0)
[2020-10-22 13:09] LABS: Amorphous Sediment,Urine Occasional /hpf; Appearance,Urine Cloudy (Clear); Bacteria,Urine Rare /hpf; Bilirubin,Urine Negative (Negative); Blood,Urine Negative (Negative); Color,Urine Yellow; Glucose,Urine (UA) Negative (Negative); Hyaline Casts,Urine 1 /lpf (0-2); Ketones,Urine Negative (Negative); Leukocyte Esterase,Urine Small (Negative); Nitrite,Urine Negative (Negative); PH, Urine 5.5 (5.0-8.0); Protein,Urine 2+ (Negative); RBC,Urine 2 /hpf (0-5); Specific Gravity,Urine 1.019 (1.001-1.035); Squamous Epithelial Cell,Urine <1 /hpf (0-4); Urobilinogen,Urine <2.0 mg/dL (<2.0); WBC,Urine 5 /hpf (0-5)
[2020-10-22] MEDS ORDERED: ONDANSETRON 4 MG/2 ML VIAL IVP STA (13:10)
[2020-10-22] MEDS ORDERED: HYDROmorphone 0.5 MG/0.5 ML SYRINGE IVP STA (13:10)
[2020-10-22 13:15] VITALS: BP 148/68; PULSE 91
[2020-10-22 13:15] LABS: Partial Thromboplastin Time 19.2 sec (22.0-30.0)
== END 2020-10-22 13:41 | disposition other institution (70) ==
LOC: EC 10:06
DX: S72.402A Unspecified fracture of lower end of left femur, initial encounter for closed fracture (principal); E11.36 Type 2 diabetes mellitus with diabetic cataract; I11.0 Hypertensive heart disease with heart failure; I25.10 Atherosclerotic heart disease of native coronary artery without angina pectoris; I50.9 Heart failure, unspecified; I25.2 Old myocardial infarction; I48.91 Unspecified atrial fibrillation; K21.9 Gastro-esophageal reflux disease without esophagitis; Z79.02 Long term (current) use of antithrombotics/antiplatelets; Z79.4 Long term (current) use of insulin; Z79.899 Other long term (current) drug therapy; Z79.82 Long term (current) use of aspirin; Z88.1 Allergy status to other antibiotic agents; Z88.8 Allergy status to other drugs, medicaments and biological substances; Z95.2 Presence of prosthetic heart valve; Z95.5 Presence of coronary angioplasty implant and graft; W05.0XXA Fall from non-moving wheelchair, initial encounter
CPT/HCPCS: 36415; 93005; 80053; 85025; 85610; 85730; 81001; 73552; 73560; 71045; 99285; 96374; 96375; J2405; J1170

== ENCOUNTER 2020-10-31 14:57 | Observation (INO) | payer MEDICARE ==
[2020-10-31] MEDS ORDERED: MORPHINE SULFATE 4 MG/ML SYRINGE IVP STA (15:55)
--- NOTE | 2020-10-31 15:57 | ED ---
General Adult HPI - General Chief complaint: Skin/Abscess/Foreign Body Stated complaint: sores on buttock Time Seen by Provider: 10/31/20 15:35 Source: patient, RN notes reviewed Mode of arrival: wheelchair Limitations: no limitations - History of Present Illness Initial comments: Patient is a pleasant 75-year-old female presenting to the emergency Department with concern regarding sacral wound. Patient is wheelchair-bound. Patient is diabetic on hemodialysis. Patient states this is been present over the past one month. Patient is having discomfort in this area. No fever. No drainage. Patient denies history of similar symptoms previously. - Related Data Home Medications Medication Instructions Recorded Confirmed DULoxetine HCL [Cymbalta] 60 mg PO DAILY 08/04/14 10/22/20 Amiodarone HCl [Pacerone] 100 mg PO DAILY 11/22/15 10/22/20 Ezetimibe [Zetia] 10 mg PO DAILY 11/22/15 10/22/20 Omeprazole 20 mg PO DAILY 12/25/16 10/22/20 Magnesium Oxide [Mag-Ox] 250 mg PO DAILY 05/05/17 10/22/20 Aspirin [Adult Low Dose Aspirin EC] 81 mg PO DAILY 03/02/18 10/22/20 Cranberry 4200mg 4,200 mg PO BID 01/12/20 10/22/20 Metoprolol Succinate (ER) [Toprol 50 mg PO DAILY 01/12/20 10/22/20 XL] Sevelamer [Renvela] 800 mg PO AC-BRKFST 01/12/20 10/22/20 Ferrous Sulfate [Iron (65 MG 325 mg PO DAILY 06/09/20 10/22/20 Elemental)] Vitamin C/Biotin [Hair, Skin and 1 tab PO BID 06/09/20 10/22/20 Nails] Cholecalciferol [Vitamin D3 (25 50 mcg PO DAILY 09/05/20 10/22/20 Mcg = 1000 Iu)] Midodrine HCl [ProAmatine] 10 mg PO DIRECTED PRN 09/05/20 10/22/20 Gabapentin 300 mg PO BID 10/22/20 10/22/20 INSULIN ASPART (NovoLOG) [NovoLOG See Protocol SQ ACHS 10/22/20 10/22/20 (formulary)] Insulin Glargine,Hum.rec.anlog 20 unit SQ BID 10/22/20 10/22/20 [Lantus Solostar] Previous Rx's Medication Instructions Recorded Clopidogrel [Plavix] 75 mg PO DAILY #30 tab 08/21/17 Methenamine Hippurate 1 gm PO BID #60 tablet 06/12/20 Darbepoetin Aron [Aranesp] 40 mcg SQ Q7D syringe 09/16/20 Furosemide [Lasix] 40 mg PO DAILY #0 09/16/20 Ipratropium-Albuterol Nebulize 3 ml INHALATION RT-Q4H PRN ml 09/16/20 [Duoneb 0.5 mg-3 mg/3 ml Soln] Melatonin 6 mg PO HS tablet 09/16/20 Allergies Allergy/AdvReac Type Severity Reaction Status Date / Time KUSHAL Inhibitors Allergy Swelling Verified 10/31/20 15:31 ARB-Angiotensin Receptor Allergy Swelling Verified 10/31/20 15:31 Antagonist cephalexin monohydrate Allergy Rash/Hives, Verified 10/31/20 15:31 [From Keflex] MOUTH SWELLING propoxyphene HCl AdvReac Hallucinati Verified 10/31/20 15:31 [From Darvon] ons Kpnmafj-Tbh-Ojv Reductase AdvReac Myalgia Verified 10/31/20 15:31 Inhibitor Review of Systems ROS Statement: Those systems with pertinent positive or pertinent negative responses have been documented in the HPI. ROS Other: All systems not noted in ROS Statement are negative. Constitutional: Denies: fever Eyes: Denies: eye pain ENT: Denies: ear pain Respiratory: Denies: cough Cardiovascular: Denies: chest pain Endocrine: Denies: fatigue Gastrointestinal: Denies: abdominal pain Genitourinary: Denies: dysuria Musculoskeletal: Denies: back pain Skin: Reports: as per HPI Past Medical History Past Medical History: Atrial Fibrillation, Coronary Artery Disease (CAD), Heart Failure, Diabetes Mellitus, Dialysis, GERD/Reflux, GI Bleed, Hyperlipidemia, Hypertension, Myocardial Infarction (SC), Pneumonia, Renal Disease, Sleep Apnea/CPAP/BIPAP, Vascular Disorder Additional Past Medical History / Comment(s): HEMODIALYSIS- MONDAY,MONDAY,AND MONDAY . USES WHEELCHAIR-TRANSFERS ONLY -CAN TAKE A COUPLE OF STEPS, hx. GI bleed >year ago, SOB w/exertion, uses oxygen prn @2l, see Dr Combs [facility] & [facility]. TAVR Last Myocardial Infarction Date:: 2016 History of Any Multi-Drug Resistant Organisms: MRSA Date of last positivie culture/infection: 02/09/18 MDRO Source:: LT THIRD TOE Past Surgical History: Back Surgery, Cholecystectomy, Heart Catheterization, Heart Catheterization With Stent, Hysterectomy, Orthopedic Surgery Additional Past Surgical History / Comment(s): PCI with stents, several back surgeries-lumbar, bilateral carpal tunnel releases, bilateral cataract removals, port then fistula for hemodialysis. PTBA to left leg 03-02-18. TAVR in [address] Rock at [facility] Past Anesthesia/Blood Transfusion Reactions: Previous Problems w/ Anesthesia Additional Past Anesthesia/Blood Transfusion Reaction / Comment(s): Confusion that resolved. Date of Last Stent Placement:: 10/06/17 Past Psychological History: No Psychological Hx Reported Smoking Status: Never smoker Past Alcohol Use History: None Reported Past Drug Use History: None Reported - Past Family History Father Additional Family Medical History / Comment(s): Brain aneurysm ; age 72 Sister(s) Family Medical History: Hypertension Additional Family Medical History / Comment(s): Aortic stenosis; mitral valve disease Mother Family Medical History: No Reported History, AFIB, CVA/TIA, Hypertension Additional Family Medical History / Comment(s): mother age 83 Daughter(s) Family Medical History: Asthma Son(s) Family Medical History: Asthma General Exam Limitations: no limitations General appearance: alert, in no apparent distress Eye exam: Present: normal appearance Neck exam: Present: normal inspection Respiratory exam: Present: normal lung sounds bilaterally Cardiovascular Exam: Present: regular rate, normal rhythm GI/Abdominal exam: Present: soft. Absent: tenderness Extremities exam: Present: normal inspection Neurological exam: Present: alert Psychiatric exam: Present: normal affect, normal mood Skin exam: Present: other (Approximate 5 x 8 area sacral decubitus stage II. Central area does have some dark/black discoloration.) Course Vital Signs 10/31/20 15:31 Temperature 97.7 F Pulse Rate 83 Respiratory 16 Rate Blood Pressure 100/51 O2 Sat by Pulse 99 Oximetry Medical Decision Making - Medical Decision Making Patient reevaluated and updated. Case was discussed in detail with Dr. Colvin, cover Dr. Farias, who will admit. She does request ID consult and cefepime. - Lab Data Result diagrams: 10/31/20 16:01 10/31/20 16:01 Lab Results 10/31/20 10/31/20 10/31/20 Range/Units 16:01 16:01 16:01 WBC 15.3 H (3.8-10.6) k/uL RBC 3.16 L (3.80-5.40) m/uL Hgb 9.0 L (11.4-16.0) gm/dL Hct 29.3 L (34.0-46.0) % MCV 92.8 (80.0-100.0) fL MCH 28.6 (25.0-35.0) pg MCHC 30.8 L (31.0-37.0) g/dL RDW 17.9 H (11.5-15.5) % Plt Count 404 (150-450) k/uL MPV 8.9 Neutrophils % 81 % Lymphocytes % 9 % Monocytes % 6 % Eosinophils % 1 % Basophils % 1 % Neutrophils # 12.4 H (1.3-7.7) k/uL Lymphocytes # 1.3 (1.0-4.8) k/uL Monocytes # 1.0 (0-1.0) k/uL Eosinophils # 0.2 (0-0.7) k/uL Basophils # 0.1 (0-0.2) k/uL Hypochromasia Moderate Poikilocytosis Slight Anisocytosis Slight PT 10.9 (9.0-12.0) sec INR 1.0 (<1.2) APTT 23.0 (22.0-30.0) sec Sodium 136 L (137-145) mmol/L Potassium 3.7 (3.5-5.1) mmol/L Chloride 94 L (98-107) mmol/L Carbon Dioxide 29 (22-30) mmol/L Anion Gap 13 mmol/L BUN 19 H (7-17) mg/dL Creatinine 1.58 H (0.52-1.04) mg/dL Est GFR (CKD-EPI)AfAm 37 (>60 ml/min/1.73 sqM) Est GFR (CKD-EPI)NonAf 32 (>60 ml/min/1.73 sqM) Glucose 161 H (74-99) mg/dL Plasma Lactic Acid Satinder (0.7-2.0) mmol/L Calcium 8.8 (8.4-10.2) mg/dL Total Bilirubin 0.9 (0.2-1.3) mg/dL AST 52 H (14-36) U/L ALT 29 (4-34) U/L Alkaline Phosphatase 303 H (38-126) U/L Total Protein 6.9 (6.3-8.2) g/dL Albumin 3.4 L (3.5-5.0) g/dL 10/31/20 Range/Units 16:01 WBC (3.8-10.6) k/uL RBC (3.80-5.40) m/uL Hgb (11.4-16.0) gm/dL Hct (34.0-46.0) % MCV (80.0-100.0) fL MCH (25.0-35.0) pg MCHC (31.0-37.0) g/dL RDW (11.5-15.5) % Plt Count (150-450) k/uL MPV Neutrophils % % Lymphocytes % % Monocytes % % Eosinophils % % Basophils % % Neutrophils # (1.3-7.7) k/uL Lymphocytes # (1.0-4.8) k/uL Monocytes # (0-1.0) k/uL Eosinophils # (0-0.7) k/uL Basophils # (0-0.2) k/uL Hypochromasia Poikilocytosis Anisocytosis PT (9.0-12.0) sec INR (<1.2) APTT (22.0-30.0) sec Sodium (137-145) mmol/L Potassium (3.5-5.1) mmol/L Chloride (98-107) mmol/L Carbon Dioxide (22-30) mmol/L Anion Gap mmol/L BUN (7-17) mg/dL Creatinine (0.52-1.04) mg/dL Est GFR (CKD-EPI)AfAm (>60 ml/min/1.73 sqM) Est GFR (CKD-EPI)NonAf (>60 ml/min/1.73 sqM) Glucose (74-99) mg/dL Plasma Lactic Acid Satinder 2.7 H* (0.7-2.0) mmol/L Calcium (8.4-10.2) mg/dL Total Bilirubin (0.2-1.3) mg/dL AST (14-36) U/L ALT (4-34) U/L Alkaline Phosphatase (38-126) U/L Total Protein (6.3-8.2) g/dL Albumin (3.5-5.0) g/dL - Radiology Data Radiology results: report reviewed (Sacral CT shows increased subcutaneous e tanmay. No osteomyelitis) Disposition Clinical Impression: Cellulitis of sacral region Disposition: ADMITTED IP TO THIS HOSP Is patient prescribed a controlled substance at d/c from ED?: No Referrals: Stevenson Farias MD [Primary Care Provider] - 1-2 days Decision Time: 17:14
[2020-10-31 16:21] LABS: Prothrombin Time 10.9 sec (9.0-12.0)
[2020-10-31 16:22] LABS: Albumin 3.4 g/dL (3.5-5.0); Calcium 8.8 mg/dL (8.4-10.2); Potassium 3.7 mmol/L (3.5-5.1); Total Bilirubin 0.9 mg/dL (0.2-1.3); Total Protein 6.9 g/dL (6.3-8.2)
[2020-10-31 16:25] LABS: Anisocytosis Slight; Basophils # (A) 0.1 k/uL (0-0.2); Basophils % (A) 1 %; Eosinophils # (A) 0.2 k/uL (0-0.7); Eosinophils % (A) 1 %; HCT 29.3 % (34.0-46.0); Hypochromasia Moderate; Lymphocytes # (A) 1.3 k/uL (1.0-4.8); Lymphocytes % (A) 9 %; MCH 28.6 pg (25.0-35.0); MCHC 30.8 g/dL (31.0-37.0); MCV 92.8 fL (80.0-100.0); Mean Platelet Volume 8.9; Monocytes % (A) 6 %; Neutrophils # (A) 12.4 k/uL (1.3-7.7); Neutrophils % (A) 81 %; Platelet Count 404 k/uL (150-450); Poikilocytosis Slight; RBC 3.16 m/uL (3.80-5.40); RDW 17.9 % (11.5-15.5); WBC 15.3 k/uL (3.8-10.6)
--- NOTE | 2020-10-31 16:52 | CT ---
EXAMINATION TYPE: CT pelvis wo con DATE OF EXAM: 10/31/2020 COMPARISON: October 01, 2019 HISTORY: Sacral wound. CT DLP: 790.9 mGycm Automated exposure control for dose reduction was used. Images obtained from the iliac crests to the subtrochanteric femurs without contrast. There is mild subcutaneous edema over the left and right posterior buttocks. There is minimal subcuta neous edema over the posterior lower sacrum. I see no focal bone destruction. Sacral segments have no rmal alignment. There is multilevel fusion surgery in the mid and lower lumbar spine. There is no free fluid in the pelvis. There is retained fecal material in the rectum. Bladder distend s smoothly. There is no sign of pelvic lymphadenopathy. IMPRESSION: Subcutaneous edema over the posterior lower pelvis and the sacrum is slightly increased compared to o ld exam. No evidence of osteomyelitis. Mild constipation.
[2020-10-31] MEDS ORDERED: MORPHINE SULFATE 4 MG/ML SYRINGE IV PRN (17:13)
[2020-10-31] MEDS ORDERED: NALOXONE 0.4 MG/ML 1 ML VIAL IV PRN (17:13)
[2020-10-31] MEDS ORDERED: CEFEPIME 1 GM in SODIUM CHLORIDE 0.9% 50 ML IVPB ONE (17:30)
[2020-10-31] MEDS: SODIUM CHLORIDE 0.9% 1,000 ML IV SCH (17:46)
[2020-10-31 20:05] LABS: Glucose,Whole Blood 199 mg/dL (75-99)
[2020-11-01] MEDS: CEFEPIME 1 GM in SODIUM CHLORIDE 0.9% 50 ML IVPB SCH ×2 (05:48→18:25)
[2020-11-01] MEDS: SODIUM CHLORIDE 0.9% 1,000 ML IV SCH (05:48)
[2020-11-01 07:30] LABS: Glucose,Whole Blood 190 mg/dL (75-99)
[2020-11-01 10:55] LABS: Glucose,Whole Blood 229 mg/dL (75-99)
[2020-11-01] MEDS: INSULIN ASPART (NovoLOG) 100 UNIT/ML VIAL SQ SCH ×3 (12:54→22:32)
[2020-11-01] MEDS: COLLAGENASE 250 UNIT/GM OINTMENT 30 GM TUBE TOPICAL SCH (14:39)
--- NOTE | 2020-11-01 15:26 | P.HPIM ---
History of Present Illness H&P Date: 11/01/20 is is a 74-year-old female patient of Dr. Farias with past medical history of proximal atrial fibrillation, coronary artery disease status post [place], denies any history of COPD or asthma. Uses CPAP at home frequently. chronic diastolic heart failure, diabetes, hyperlipidemia, hypertension, hypertensive cardiovascular disease, end-stage renal disease on hemodialysis Monday and Monday, aortic stenosis status post TAVR in 2018, with h/o multiple urinary tract infection treated by Dr Borrego who also did cystoscopy on 05/22 done for recurrent UIT followed by bactrim for klebsiella and ecoli uti on 06/07/2020 Patient presents to emergency room secondary to sacral pain, was being transport ed from dialysis back to [facility] on the [place] by [employer] wheelchair van, when patient complained of worsening sacral pain, she had recently fractured distal left femur 10/23/2020 at [facility] and was trasnsfered to [facility] yesterday 11/01 she ws there only less than 12 hrs , which is worse, there is some concern regarding worsening of the sacral wound, and patient is wheelchair bound it was present prior to her admission at [facility]. This wound has been present over the past one month, there is no fever no purulent drainage, however pain is uncontrolled. Patient was subsequently admitted, has been seen by Dr. Obrien in the past for E. coli UTI and bacteremia, 09/17/2020, patient has CT pelvis without contrast, showing subcutaneous edema over the posterior lower pelvis, and sacrum is slightly increased compared to old examination, no evidence of osteomyelitis, patient was admitted for sacral cellulitis, with sacral decubitus ulcer, with consultation to Dr. bOrien, IV cefepime blood cultures and sacral wound ulcers to be sent for culture , she does not void as much nearly anuric, not using any depends, appetite low, spoke with daughter wants bipap for use while here, cpap is at [facility]. wants marinol for appetite, and protein supplementation, Review of Systems Constitutional: Reports as per HPI, Reports chills, Denies anorexia, Denies chronic headaches, Denies chronic pain, Denies daytime sleepiness, Denies fatigue, Denies fever, Denies lethargy, Denies malaise, Denies night sweats, Denies poor appetite, Denies sweats, Denies weakness, Denies weight gain, Denies weight loss Ears, nose, mouth and throat: Reports as per HPI Cardiovascular: Reports as per HPI, Reports dyspnea on exertion, Reports edema Respiratory: Reports as per HPI, Denies cough Gastrointestinal: Reports as per HPI, Reports constipation, Denies excessive ga s, Denies heartburn, Denies indigestion, Denies vomiting Genitourinary: Reports as per HPI, Reports pelvic pain, Reports stress incontinence, Denies genital sores Menstruation: Reports as per HPI Musculoskeletal: Reports as per HPI Integumentary: Reports as per HPI, Reports wounds Neurological: Reports as per HPI Psychiatric: Reports as per HPI, Reports anxiety attacks, Denies anhedonia, Denies anxiety, Denies change in appetite, Denies change in sleep habits, Denies confusion, Denies depression, Denies difficulty concentrating, Denies disorien tation, Denies hallucinations, Denies hopelessness, Denies hypersomnia, Denies insomnia, Denies irritability, Denies memory loss, Denies mood swings, Denies paranoia, Denies sadness/tearfulness, Denies sleep disturbances, Denies suicidal ideation Endocrine: Reports fatigue Hematologic/Lymphatic: Reports as per HPI Allergic/Immunologic: Reports as per HPI Past Medical History Past Medical History: Atrial Fibrillation, Coronary Artery Disease (CAD), Heart Failure, Diabetes Mellitus, Dialysis, GERD/Reflux, GI Bleed, Hyperlipidemia, Hypertension, Myocardial Infarction ([place]), Pneumonia, Renal Disease, Sleep Apnea/CPAP/BIPAP, Vascular Disorder Additional Past Medical History / Comment(s): HEMODIALYSIS- MONDAY,MONDAY,AND MONDAY . USES WHEELCHAIR-TRANSFERS ONLY -CAN TAKE A COUPLE OF STEPS, hx. GI bleed >year ago, SOB w/exertion, uses oxygen prn @2l, see Dr Combs H & P. TAVR Last Myocardial Infarction Date:: 2015 History of Any Multi-Drug Resistant Organisms: MRSA Date of last positivie culture/infection: 02/09/18 MDRO Source:: LT THIRD TOE Past Surgical History: Back Surgery, Cholecystectomy, Heart Catheterization, Heart Catheterization With Stent, Hysterectomy, Orthopedic Surgery Additional Past Surgical History / Comment(s): PCI with stents, several back surgeries-lumbar, bilateral carpal tunnel releases, bilateral cataract removals, port then fistula for hemodialysis. PTBA to left leg 03-02-18. TAVR in [address] Rock at [facility] Past Anesthesia/Blood Transfusion Reactions: Previous Problems w/ Anesthesia Additional Past Anesthesia/Blood Transfusion Reaction / Comment(s): Confusion that resolved. Date of Last Stent Placement:: 10/06/17 Past Psychological History: No Psychological Hx Reported Additional Psychological History / Comment(s): Single but lives with her daughter who is her caregiver Smoking Status: Never smoker Past Alcohol Use History: None Reported Additional Past Alcohol Use History / Comment(s): Patient had exposure to secondhand smoke with her . Past Drug Use History: None Reported - Past Family History Father Additional Family Medical History / Comment(s): Brain aneurysm ; age 72 Sister(s) Family Medical History: Hypertension Additional Family Medical History / Comment(s): Aortic stenosis; mitral valve disease Mother Family Medical History: No Reported History, AFIB, CVA/TIA, Hypertension Additional Family Medical History / Comment(s): mother age 83 Daughter(s) Family Medical History: Asthma Son(s) Family Medical History: Asthma Medications and Allergies Home Medications Medication Instructions Recorded Confirmed Type DULoxetine HCL [Cymbalta] 60 mg PO DAILY@0900 08/04/14 10/31/20 History Amiodarone HCl [Pacerone] 100 mg PO DAILY@89911/22/15 10/31/20 History Ezetimibe [Zetia] 10 mg PO DAILY@89911/22/15 10/31/20 History Omeprazole 20 mg PO DAILY@0912/25/16 10/31/20 History Aspirin [Adult Low Dose Aspirin EC] 81 mg PO DAILY@0903/02/18 10/31/20 History Metoprolol Succinate (ER) [Toprol 50 mg PO DAILY@89901/12/20 10/31/20 History XL] Sevelamer [Renvela] 800 mg PO DAILY@89901/12/20 10/31/20 History Gabapentin 300 mg PO BID@0900,209910/22/20 10/31/20 History INSULIN ASPART (NovoLOG) [NovoLOG See Protocol SQ ACHS 10/22/20 10/31/20 History (formulary)] Insulin Glargine,Hum.rec.anlog 20 units SQ BID@0800,209910/31/2021 History [Semglee Pen] Levofloxacin [Levaquin] 500 mg PO DAILY@0900 10/31/20 10/31/20 History traMADol HCL 50 mg PO Q6H PRN 10/31/20 10/31/20 History Allergies Allergy/AdvReac Type Severity Reaction Status Date / Time KUSHAL Inhibitors Allergy Swelling Verified 10/31/20 17:58 ARB-Angiotensin Receptor Allergy Swelling Verified 10/31/20 17:58 Antagonist cephalexin monohydrate Allergy Rash/Hives, Verified 10/31/20 17:58 [From Keflex] MOUTH SWELLING propoxyphene HCl AdvReac Hallucinati Verified 10/31/20 17:58 [From Darvon] ons Kaiorvg-Coy-Mhs Reductase AdvReac Myalgia Verified 10/31/20 17:58 Inhibitor Physical Exam Vitals: Vital Signs Temp Pulse Pulse Resp BP BP Pulse Ox 11/01/20 12:05 97.8 F 87 18 127/48 95 11/01/20 02:00 97.6 F 80 16 145/73 99 10/31/20 20:00 97.8 F 77 16 151/73 95 10/31/20 17:46 82 16 156/55 100 10/31/20 15:31 97.7 F 83 16 100/51 99 Intake and Output 10/31/20 11/01/20 11/01/20 22:59 06:59 14:59 Intake Total 590 Balance 590 Intake: Oral 590 Other: Voiding Method Diaper Diaper # Voids 1 Weight 77.111 kg - Constitutional General appearance: cooperative, morbidly obese - EENT Eyes: anicteric sclerae, EOMI, PERRLA, dentition normal, normal appearance ENT: NA/AT, normal oropharynx - Neck Neck: normal ROM - Respiratory Respiratory: negative: CTA, diminished - Cardiovascular Rhythm: regular Heart sounds: normal: S1, S2 Abnormal Heart Sounds: no systolic murmur, no diastolic murmur, no rub, no S3 Gallop, no S4 Gallop, no click, no other - Gastrointestinal General gastrointestinal: normal bowel sounds, soft - Integumentary Sacral wound, stage II, 5 x 8 cm, some central discoloration, with necrosis superficial Integumentary: decreased turgor, normal - Neurologic Neurologic: CNII-XII intact - Musculoskeletal Musculoskeletal: generalized weakness, strength equal bilaterally - Psychiatric Psychiatric: A&O x's 3 Results CBC & Chem 7: 10/31/20 16:01 10/31/20 16:01 Labs: Abnormal Lab Results - Last 24 Hours (Table) 10/31/20 10/31/20 10/31/20 Range/Units 16:01 16:01 16:01 WBC 15.3 H (3.8-10.6) k/uL RBC 3.16 L (3.80-5.40) m/uL Hgb 9.0 L (11.4-16.0) gm/dL Hct 29.3 L (34.0-46.0) % MCHC 30.8 L (31.0-37.0) g/dL RDW 17.9 H (11.5-15.5) % Neutrophils # 12.4 H (1.3-7.7) k/uL Sodium 136 L (137-145) mmol/L Chloride 94 L (98-107) mmol/L BUN 19 H (7-17) mg/dL Creatinine 1.58 H (0.52-1.04) mg/dL Glucose 161 H (74-99) mg/dL POC Glucose (mg/dL) (75-99) mg/dL Plasma Lactic Acid Satinder 2.7 H* (0.7-2.0) mmol/L AST 52 H (14-36) U/L Alkaline Phosphatase 303 H (38-126) U/L Albumin 3.4 L (3.5-5.0) g/dL 10/31/20 11/01/20 11/01/20 Range/Units 20:04 07:29 10:54 WBC (3.8-10.6) k/uL RBC (3.80-5.40) m/uL Hgb (11.4-16.0) gm/dL Hct (34.0-46.0) % MCHC (31.0-37.0) g/dL RDW (11.5-15.5) % Neutrophils # (1.3-7.7) k/uL Sodium (137-145) mmol/L Chloride (98-107) mmol/L BUN (7-17) mg/dL Creatinine (0.52-1.04) mg/dL Glucose (74-99) mg/dL POC Glucose (mg/dL) 199 H 190 H 229 H (75-99) mg/dL Plasma Lactic Acid Satinder (0.7-2.0) mmol/L AST (14-36) U/L Alkaline Phosphatase (38-126) U/L Albumin (3.5-5.0) g/dL Laboratory Results WBC 15.3 k/uL (3.8-10.6) H 10/31/20 16:01 RBC 3.16 m/uL (3.80-5.40) L 10/31/20 16:01 Hgb 9.0 gm/dL (11.4-16.0) L 10/31/20 16:01 Hct 29.3 % (34.0-46.0) L 10/31/20 16:01 MCV 92.8 fL (80.0-100.0) 10/31/20 16:01 MCH 28.6 pg (25.0-35.0) 10/31/20 16:01 MCHC 30.8 g/dL (31.0-37.0) L 10/31/20 16:01 RDW 17.9 % (11.5-15.5) H 10/31/20 16:01 Plt Count 404 k/uL (150-450) 10/31/20 16:01 MPV 8.9 10/31/20 16:01 Neutrophils % 81 % 10/31/20 16:01 Lymphocytes % 9 % 10/31/20 16:01 Monocytes % 6 % 10/31/20 16:01 Eosinophils % 1 % 10/31/20 16:01 Basophils % 1 % 10/31/20 16:01 Neutrophils # 12.4 k/uL (1.3-7.7) H 10/31/20 16:01 Lymphocytes # 1.3 k/uL (1.0-4.8) 10/31/20 16:01 Monocytes # 1.0 k/uL (0-1.0) 10/31/20 16:01 Eosinophils # 0.2 k/uL (0-0.7) 10/31/20 16:01 Basophils # 0.1 k/uL (0-0.2) 10/31/20 16:01 Hypochromasia Moderate 10/31/20 16:01 Poikilocytosis Slight 10/31/20 16:01 Anisocytosis Slight 10/31/20 16:01 PT 10.9 sec (9.0-12.0) 10/31/20 16:01 INR 1.0 (<1.2) 10/31/20 16:01 APTT 23.0 sec (22.0-30.0) 10/31/20 16:01 Sodium 136 mmol/L (137-145) L 10/31/20 16:01 Potassium 3.7 mmol/L (3.5-5.1) 10/31/20 16:01 Chloride 94 mmol/L (98-107) L 10/31/20 16:01 Carbon Dioxide 29 mmol/L (22-30) 10/31/20 16:01 Anion Gap 13 mmol/L 10/31/20 16:01 BUN 19 mg/dL (7-17) H 10/31/20 16:01 Creatinine 1.58 mg/dL (0.52-1.04) H 10/31/20 16:01 Est GFR (CKD-EPI)AfAm 37 (>60 ml/min/1.73 sqM) 10/31/20 16:01 Est GFR (CKD-EPI)NonAf 32 (>60 ml/min/1.73 sqM) 10/31/20 16:01 Glucose 161 mg/dL (74-99) H 10/31/20 16:01 POC Glucose (mg/dL) 229 mg/dL (75-99) H 11/01/20 10:54 POC Glu Watch Repair Technician ID Oksana Adam 11/01/20 10:54 Lactic Ac Sepsis Rflx Y 10/31/20 16:21 Plasma Lactic Acid Satinder 1.1 mmol/L (0.7-2.0) 10/31/20 20:18 Calcium 8.8 mg/dL (8.4-10.2) 10/31/20 16:01 Total Bilirubin 0.9 mg/dL (0.2-1.3) 10/31/20 16:01 AST 52 U/L (14-36) H 10/31/20 16:01 ALT 29 U/L (4-34) 10/31/20 16:01 Alkaline Phosphatase 303 U/L (38-126) H 10/31/20 16:01 Total Protein 6.9 g/dL (6.3-8.2) 10/31/20 16:01 Albumin 3.4 g/dL (3.5-5.0) L 10/31/20 16:01 Thrombosis Risk Factor Assmnt - Choose All That Apply Each Factor Represents 1 point: Medical pt on bed rest, Obesity (BMI >25) Other Risk Factors: Yes Each Risk Factor Represents 2 Points: Age 61-74 years, Patient confined to bed Other congenital or acquired thrombophilia - If yes, enter type in comment: No Thrombosis Risk Factor Assessment Total Risk Factor Score: 6 Thrombosis Risk Factor Assessment Level: High Risk Assessment and Plan Plan: 1. Sacral decubiti with cellulitis, stage II, patient's wheelchair bound, most likely pressure ulcer, consult with Dr. Obrien, IV cefepime, cultures 2 history of Recurrent UTI, none currently, status post cystoscopy, by Dr. Borrego, previous culture positive for E. coli and klebsiella during last cultureson chronic prophylactic antibiotics including nitrofurantoin and Mandelamine 3recent fracture left distal femur, orif on 10/23/2020, [facility] 3 Oliguria secondary to end-stage kidney disease, still making 400 mL per day, consult with nephrology, on hemodialysis Monday and Monday 12 Diabetes mellitus type 2, insulin requiring. Continue insulin sliding sca le. Continue Lantus 20 units twice a day 5 End-stage renal disease on hemodialysis Monday and Monday, consult Dr. Manrique 6 Chronic diastolic heart failure. Continue hemodialysis. Continue home dose of Lasix at 80 mg twice daily as well as metoprolol 50 mg Monday, and metolazone 5 mg twice a day 7 History of aortic stenosis status post TAVR. 8 Hypertension cardiovascular disease. Continue amiodarone 100 mg daily and metoprolol. 10 Paroxysmal atrial fibrillation. Continue amiodarone 100 mg once daily and metoprolol a history of GI bleed no past several years ago, not on any anticoagulation due to increased risk of fall and GI bleeding 11 History of myocardial infarction and coronary artery disease status post LAD stent in July 2017 and left circumflex in August 2017. Continue Toprol-XL 50 mg once daily, and Plavix 13 GERD continue Protonix. 14 History of hyperlipidemia continue Zetia 10mg daily 15 Obstructive sleep apnea, on CPAP machine at night, along with O2 supplementation will do bipap while here 16. Diabetic peripheral neuropathy continue gabapentin 300 mg twice daily. 17. Recurrent depression. Continue Cymbalta 60 mg orally once daily DVT prophylaxis. Heparin subcu every 12 GI prophylaxis continue Protonix.
[2020-11-01 17:02] LABS: Glucose,Whole Blood 223 mg/dL (75-99)
[2020-11-01] MEDS: traMADol 50 MG TAB PO PRN (18:24)
[2020-11-01 22:29] LABS: Glucose,Whole Blood 287 mg/dL (75-99)
[2020-11-01] MEDS: GABAPENTIN 300 MG CAP PO SCH (22:32)
[2020-11-01] MEDS: INSULIN DETEMIR (LEVEMIR) 100 UNIT/ML SYR SQ SCH (22:32)
--- NOTE | 2020-11-02 00:29 | P.CONS ---
History of Present Illness - Reason for Consult Consult date: 11/01/20 Sacral pressure ulcer Requesting physician: Mary Colvin - Chief Complaint Pain to the lower back x few days - History of Present Illness Patient is a 75-year-old female who was recently admitted at this facility for E. coli bacteremia secondary urinary source patient did have prolonged hospital stay patient was subsequently stabilized [facility] patient has been sent to the ER at [facility] yesterday for evaluation of a wound to the sacral area apparently the patient has developed this wound during her last prolonged stay to the hospital for bacteremia and sepsis patient was clear about local treatment that is being provided to her for this sacral wound patient denies having any fever or any chills patient be complaining of pain to the sacral area to more frequently continue tramadol intensity is 5-6 30 no lesion patient denies having any foul-smelling drainage from the wound and denies high-grade fever on presentation to the hospital patient was afebrile patient did have white count 15.3 patient did have a CT of the pelvis supported this edema on the posterior lower pelvis and sacrum slightly increased compared to old exam no evidence of osteomyelitis mild constipation patient has been admitted to hospital patient was started on cefepime infectious was consulted for further management of local wound care and need for antibiotic therapy. Review of Systems Positive point has been mentioned in the HPI rest of the systems are negative Past Medical History Past Medical History: Atrial Fibrillation, Coronary Artery Disease (CAD), Heart Failure, Diabetes Mellitus, Dialysis, GERD/Reflux, GI Bleed, Hyperlipidemia, Hypertension, Myocardial Infarction ([place]), Pneumonia, Renal Disease, Sleep Apnea/CPAP/BIPAP, Vascular Disorder Additional Past Medical History / Comment(s): HEMODIALYSIS- MONDAY,MONDAY,AND MONDAY . USES WHEELCHAIR-TRANSFERS ONLY -CAN TAKE A COUPLE OF STEPS, hx. GI bleed >year ago, SOB w/exertion, uses oxygen prn @2l, see Dr Combs H & P. TAVR Last Myocardial Infarction Date:: 2015 History of Any Multi-Drug Resistant Organisms: MRSA Year Discovered:: 02/09/18 MDRO Source:: LT THIRD TOE Past Surgical History: Back Surgery, Cholecystectomy, Heart Catheterization, Heart Catheterization With Stent, Hysterectomy, Orthopedic Surgery Additional Past Surgical History / Comment(s): PCI with stents, several back surgeries-lumbar, bilateral carpal tunnel releases, bilateral cataract removals, port then fistula for hemodialysis. PTBA to left leg 03-02-18. TAVR in [address] Rock at [facility] Past Anesthesia/Blood Transfusion Reactions: Previous Problems w/ Anesthesia Additional Past Anesthesia/Blood Transfusion Reaction / Comm: Confusion that resolved. Date of Last Stent Placement:: 10/06/17 Past Psychological History: No Psychological Hx Reported Additional Psychological History / Comment(s): Single but lives with her daughter who is her caregiver Smoking Status: Never smoker Past Alcohol Use History: None Reported Additional Past Alcohol Use History / Comment(s): Patient had exposure to secondhand smoke with her . Past Drug Use History: None Reported - Past Family History Father Additional Family Medical History / Comment(s): Brain aneurysm ; age 72 Sister(s) Family Medical History: Hypertension Additional Family Medical History / Comment(s): Aortic stenosis; mitral valve disease Mother Family Medical History: No Reported History, AFIB, CVA/TIA, Hypertension Additional Family Medical History / Comment(s): mother age 83 Daughter(s) Family Medical History: Asthma Son(s) Family Medical History: Asthma Medications and Allergies Home Medications Medication Instructions Recorded Confirmed Type DULoxetine HCL [Cymbalta] 60 mg PO DAILY@89908/04/14 10/31/20 History Amiodarone HCl [Pacerone] 100 mg PO DAILY@89911/22/15 10/31/20 History Ezetimibe [Zetia] 10 mg PO DAILY@89911/22/15 10/31/20 History Omeprazole 20 mg PO DAILY@89912/25/16 10/31/20 History Aspirin [Adult Low Dose Aspirin EC] 81 mg PO DAILY@0903/02/18 10/31/20 History Metoprolol Succinate (ER) [Toprol 50 mg PO DAILY@89901/12/20 10/31/20 History XL] Sevelamer [Renvela] 800 mg PO DAILY@89901/12/20 10/31/20 History Gabapentin 300 mg PO BID@0900,2100 10/22/20 10/31/20 History INSULIN ASPART (NovoLOG) [NovoLOG See Protocol SQ ACHS 10/22/20 10/31/20 History (formulary)] Insulin Glargine,Hum.rec.anlog 20 units SQ BID@0800,2100 10/31/20 10/31/20 History [Semglee Pen] Levofloxacin [Levaquin] 500 mg PO DAILY@0900 10/31/20 10/31/20 History traMADol HCL 50 mg PO Q6H PRN 10/31/20 10/31/20 History Allergies Allergy/AdvReac Type Severity Reaction Status Date / Time KUSHAL Inhibitors Allergy Swelling Verified 10/31/20 17:58 ARB-Angiotensin Receptor Allergy Swelling Verified 10/31/20 17:58 Antagonist cephalexin monohydrate Allergy Rash/Hives, Verified 10/31/20 17:58 [From Keflex] MOUTH SWELLING propoxyphene HCl AdvReac Hallucinati Verified 10/31/20 17:58 [From Darvon] ons Iqssqmo-Yqf-Vpf Reductase AdvReac Myalgia Verified 10/31/20 17:58 Inhibitor Physical Exam Vitals: Vital Signs Temp Pulse Pulse Resp BP BP Pulse Ox 11/01/20 12:05 97.8 F 87 18 127/48 95 11/01/20 02:00 97.6 F 80 16 145/73 99 10/31/20 20:00 97.8 F 77 16 151/73 95 10/31/20 17:46 82 16 156/55 100 10/31/20 15:31 97.7 F 83 16 100/51 99 Intake and Output 10/31/20 11/01/20 11/01/20 22:59 06:59 14:59 Intake Total 590 Balance 590 Intake: Oral 590 Other: Voiding Method Diaper Diaper # Voids 1 Weight 77.111 kg GENERAL DESCRIPTION: Elderly female lying in bed, no distress. No tachypnea or accessory muscle of respiration use. HEENT: Shows Pallor , no scleral icterus. Oral mucous membrane is dry. No pharyngeal erythema or thrush NECK: Trachea central, no thyromegaly. LUNGS: Unlabored breathing. Clear to auscultation anteriorly. No wheeze or crackle. HEART: S1, S2, regular rate and rhythm. No loud murmur ABDOMEN: Soft, no tenderness , guarding or rigidity, no organomegaly EXTREMITIES: No edema of feet. SKIN: No rash, no masses palpable. Stage III sacral pressure ulcer with slough tissue no surrounding redness or any foul-smelling drainage NEUROLOGICAL: The patient is awake, alert, oriented x3, mood and affect normal. Results CBC & Chem 7: 10/31/20 16:01 10/31/20 16:01 Labs: Abnormal Lab Results - Last 24 Hours (Table) 10/31/20 10/31/20 10/31/20 Range/Units 16:01 16:01 16:01 WBC 15.3 H (3.8-10.6) k/uL RBC 3.16 L (3.80-5.40) m/uL Hgb 9.0 L (11.4-16.0) gm/dL Hct 29.3 L (34.0-46.0) % MCHC 30.8 L (31.0-37.0) g/dL RDW 17.9 H (11.5-15.5) % Neutrophils # 12.4 H (1.3-7.7) k/uL Sodium 136 L (137-145) mmol/L Chloride 94 L (98-107) mmol/L BUN 19 H (7-17) mg/dL Creatinine 1.58 H (0.52-1.04) mg/dL Glucose 161 H (74-99) mg/dL POC Glucose (mg/dL) (75-99) mg/dL Plasma Lactic Acid Satinder 2.7 H* (0.7-2.0) mmol/L AST 52 H (14-36) U/L Alkaline Phosphatase 303 H (38-126) U/L Albumin 3.4 L (3.5-5.0) g/dL 10/31/20 11/01/20 11/01/20 Range/Units 20:04 07:29 10:54 WBC (3.8-10.6) k/uL RBC (3.80-5.40) m/uL Hgb (11.4-16.0) gm/dL Hct (34.0-46.0) % MCHC (31.0-37.0) g/dL RDW (11.5-15.5) % Neutrophils # (1.3-7.7) k/uL Sodium (137-145) mmol/L Chloride (98-107) mmol/L BUN (7-17) mg/dL Creatinine (0.52-1.04) mg/dL Glucose (74-99) mg/dL POC Glucose (mg/dL) 199 H 190 H 229 H (75-99) mg/dL Plasma Lactic Acid Satinder (0.7-2.0) mmol/L AST (14-36) U/L Alkaline Phosphatase (38-126) U/L Albumin (3.5-5.0) g/dL Assessment and Plan Assessment: -patient with stage III sacral pressure ulcer with evidence of black pressure on the upper portion of the wound however there is no significant surrounding swel ling redness or any foul-smelling drainage this patient with no fever clinical suspicion of for infected sacral pressure ulcer (1) Decubitus ulcer of sacral region, stage 3 Current Visit: Yes Status: Acute Code(s): L89.153 - PRESSURE ULCER OF SACRAL REGION, STAGE 3 SNOMED Code(s): 586328894 Plan: 1-local wound care to the sacral wound with Santyl followed by moist dressing keep the area of the pressure and to change the dressing daily 2-no need for systemic antibiotic therapy We will follow on clinical condition and cultures to further adjust medication if needed Thank you for this consultation we will follow the patient along with you Time with Patient: Greater than 30
[2020-11-02] MEDS: CEFEPIME 1 GM in SODIUM CHLORIDE 0.9% 50 ML IVPB SCH (05:34)
[2020-11-02 06:06] LABS: Anisocytosis Slight; Basophils # (A) 0.1 k/uL (0-0.2); Basophils % (A) 1 %; Eosinophils # (A) 0.3 k/uL (0-0.7); Eosinophils % (A) 3 %; HCT 23.1 % (34.0-46.0); Hypochromasia Marked; Lymphocytes % (A) 8 %; MCH 30.4 pg (25.0-35.0); MCHC 32.3 g/dL (31.0-37.0); MCV 94.1 fL (80.0-100.0); Mean Platelet Volume 8.9; Monocytes # (A) 0.9 k/uL (0-1.0); Monocytes % (A) 7 %; Neutrophils # (A) 9.8 k/uL (1.3-7.7); Neutrophils % (A) 81 %; Platelet Count 306 k/uL (150-450); Poikilocytosis Slight; RBC 2.46 m/uL (3.80-5.40); RDW 17.5 % (11.5-15.5); WBC 12.1 k/uL (3.8-10.6)
[2020-11-02 06:10] LABS: HGB 7.5 gm/dL (11.4-16.0)
[2020-11-02 07:05] LABS: Glucose,Whole Blood 244 mg/dL (75-99)
[2020-11-02] MEDS: METOPROLOL SUCCINATE (ER) 50 MG TAB.ER.24H PO SCH (08:27)
[2020-11-02] MEDS: GABAPENTIN 300 MG CAP PO SCH ×2 (08:27→20:44)
[2020-11-02] MEDS: PANTOPRAZOLE 40 MG TABLET PO SCH (08:27)
[2020-11-02] MEDS: EZETIMIBE 10 MG TAB PO SCH (08:27)
[2020-11-02] MEDS: DULoxetine HCL 60 MG CAPSULE.DR PO SCH (08:28)
[2020-11-02] MEDS: ASPIRIN 81 MG PO SCH (08:28)
[2020-11-02] MEDS: SEVELAMER 800 MG TAB PO SCH (08:28)
[2020-11-02] MEDS: AMIODARONE 100 MG TAB PO SCH (08:28)
[2020-11-02] MEDS: INSULIN DETEMIR (LEVEMIR) 100 UNIT/ML SYR SQ SCH ×2 (08:28→20:44)
[2020-11-02] MEDS: INSULIN ASPART (NovoLOG) 100 UNIT/ML VIAL SQ SCH ×4 (08:29→20:44)
[2020-11-02] MEDS: COLLAGENASE 250 UNIT/GM OINTMENT 30 GM TUBE TOPICAL SCH (08:29)
--- NOTE | 2020-11-02 09:52 | P.NPCON ---
History of Present Illness - Reason for Consult end stage renal disease - History of Present Illness Reason for consultation: End-stage renal disease History of present illness: Patient is a 75-year-old female seen in renal consultation for end-stage renal disease. She is maintained on hemodialysis on Monday schedule. Patient was recently admitted at [facility] with UTI and bacteremia. She was subsequently discharged to rehab facility and was sent back to the hospital after 1 day due to sacral bone. She is currently being followed by infectious disease and is maintained on antibiotics. She is on BiPAP. Pelvic CT revealed no evidence of osteomyelitis. Subcutaneous edema in the posterior lower pelvis and sacrum was noted. Patient is afebrile. White count is slightly elevated. She denies chest pain or shortness of breath. Feels tired. No vomiting or diarrhea. She is also any history of diabetes mellitus. Blood pressure stable. Vital signs are stable. General: The patient appeared well nourished and normally developed. HEENT: On BiPAP. LUNGS: Breath sounds decreased. HEART: Rate and Rhythm are regular. ABDOMEN: Soft, obese. EXTREMITITES: No edema. Past Medical History Past Medical History: Atrial Fibrillation, Coronary Artery Disease (CAD), Heart Failure, Diabetes Mellitus, Dialysis, GERD/Reflux, GI Bleed, Hyperlipidemia, Hypertension, Myocardial Infarction (AR), Pneumonia, Renal Disease, Sleep Ap shay/CPAP/BIPAP, Vascular Disorder Additional Past Medical History / Comment(s): HEMODIALYSIS- MONDAY,MONDAY,AND MONDAY . USES WHEELCHAIR-TRANSFERS ONLY -CAN TAKE A COUPLE OF STEPS, hx. GI bleed >year ago, SOB w/exertion, uses oxygen prn @2l, see Dr Combs H & P. TAVR Last Myocardial Infarction Date:: 2015 History of Any Multi-Drug Resistant Organisms: MRSA Date of last positivie culture/infection: 02/09/18 MDRO Source:: LT THIRD TOE Past Surgical History: Back Surgery, Cholecystectomy, Heart Catheterization, Heart Catheterization With Stent, Hysterectomy, Orthopedic Surgery Additional Past Surgical History / Comment(s): PCI with stents, several back surgeries-lumbar, bilateral carpal tunnel releases, bilateral cataract removals, port then fistula for hemodialysis. PTBA to left leg 03-02-18. TAVR in [address] Rock at [facility] Past Anesthesia/Blood Transfusion Reactions: Previous Problems w/ Anesthesia Additional Past Anesthesia/Blood Transfusion Reaction / Comment(s): Confusion that resolved. Date of Last Stent Placement:: 10/06/17 Past Psychological History: No Psychological Hx Reported Additional Psychological History / Comment(s): Single but lives with her sebas hastings who is her caregiver Smoking Status: Never smoker Past Alcohol Use History: None Reported Additional Past Alcohol Use History / Comment(s): Patient had exposure to secondhand smoke with her . Past Drug Use History: None Reported - Past Family History Father Additional Family Medical History / Comment(s): Brain aneurysm ; age 72 Sister(s) Family Medical History: Hypertension Additional Family Medical History / Comment(s): Aortic stenosis; mitral valve disease Mother Family Medical History: No Reported History, AFIB, CVA/TIA, Hypertension Additional Family Medical History / Comment(s): mother age 83 Daughter(s) Family Medical History: Asthma Son(s) Family Medical History: Asthma Medications and Allergies Home Medications Medication Instructions Recorded Confirmed Type DULoxetine HCL [Cymbalta] 60 mg PO DAILY@0908/04/14 10/31/20 History Amiodarone HCl [Pacerone] 100 mg PO DAILY@89911/22/15 10/31/20 History Ezetimibe [Zetia] 10 mg PO DAILY@89911/22/15 10/31/20 History Omeprazole 20 mg PO DAILY@89912/25/16 10/31/20 History Aspirin [Adult Low Dose Aspirin EC] 81 mg PO DAILY@89903/02/18 10/31/20 History Metoprolol Succinate (ER) [Toprol 50 mg PO DAILY@89901/12/20 10/31/20 History XL] Sevelamer [Renvela] 800 mg PO DAILY@89901/12/20 10/31/20 History Gabapentin 300 mg PO BID@0900,209910/22/20 10/31/20 History INSULIN ASPART (NovoLOG) [NovoLOG See Protocol SQ ACHS 10/22/20 10/31/20 History (formulary)] Insulin Glargine,Hum.rec.anlog 20 units SQ BID@0800,209910/31/20 10/31/20 History [Semglee Pen] Levofloxacin [Levaquin] 500 mg PO DAILY@0900 10/31/20 10/31/20 History traMADol HCL 50 mg PO Q6H PRN 10/31/20 10/31/20 History Allergies Allergy/AdvReac Type Severity Reaction Status Date / Time KUSHAL Inhibitors Allergy Swelling Verified 10/31/20 17:58 ARB-Angiotensin Receptor Allergy Swelling Verified 10/31/20 17:58 Antagonist cephalexin monohydrate Allergy Rash/Hives, Verified 10/31/20 17:58 [From Keflex] MOUTH SWELLING propoxyphene HCl AdvReac Hallucinati Verified 10/31/20 17:58 [From Darvon] ons Aphyeyi-Ddb-Tuh Reductase AdvReac Myalgia Verified 10/31/20 17:58 Inhibitor Physical Exam Vitals: Vital Signs Temp Pulse Resp BP Pulse Ox 11/02/20 05:00 98.4 F 90 18 150/69 100 11/01/20 20:41 99.3 F 92 16 153/83 99 11/01/20 20:05 92 16 11/01/20 12:05 97.8 F 87 18 127/48 95 Intake and Output 11/01/20 11/02/20 11/02/20 22:59 06:59 14:59 Intake Total 210 250 Balance 210 250 Intake: Intake, IV Titration 210 250 Amount Cefepime 1 gm In Sodium 50 50 Chloride 0.9% 50 ml @ 12. 5 mls/hr IVPB Q12H [facility] Rx #:[id number] Sodium Chloride 0.9% 1, 160 200 000 ml @ 20 mls/hr IV . Q24H [facility] Rx#:[id number] Other: Voiding Method Diaper # Bowel Movements 2 Results - Lab Results Most recent lab results Calcium 8.8 mg/dL (8.4-10.2) 10/31/20 16:01 11/02/20 05:04 10/31/20 16:01 Assessment and Plan Plan: Assessment: 1. End-stage renal disease maintained on hemodialysis on Monday schedule. 2. Sacral wound maintained on antibiotics. Infectious disease following. 3. Recent UTI and E. coli bacteremia. 4. Anemia of chronic kidney disease. 5. Diabetes mellitus. 6. 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 Plan: Hemodialysis tomorrow. Add Tahirap. Thank you for the consultation. I will continue to follow the patient with you during her hospital stay.
[2020-11-02 09:58] LABS: African American GFR (CKD) 12.8 (60.0-200.0); Albumin 3.2 g/dL (3.80-4.90); Albumin/Globulin Ratio 1.07 (1.60-3.17); Anion Gap 14.8 mmol/L (4.00-12.00); BUN/Creat Ratio 12.89 Ratio (12.00-20.00); Calcium 8.4 mg/dL (8.7-10.3); Carbon Dioxide 22.2 mmol/L (21.6-31.8); Potassium 4.4 mmol/L (3.5-5.5); Total Bilirubin 0.4 mg/dL (0.3-1.2); Total Protein 6.2 g/dL (6.2-8.2)
[2020-11-02 11:33] LABS: Glucose,Whole Blood 266 mg/dL (75-99)
[2020-11-02 17:04] LABS: Glucose,Whole Blood 185 mg/dL (75-99)
[2020-11-02] MEDS: DARBEPOETIN ALFA 40 MCG/0.4 ML SYRINGE SQ SCH (17:41)
[2020-11-02] MEDS: SODIUM CHLORIDE 0.9% 1,000 ML IV SCH (17:42)
--- NOTE | 2020-11-02 17:48 | P.PN ---
Subjective Progress Note Date: 11/02/20 is is a 74-year-old female patient of Dr. Farias with past medical history of proximal atrial fibrillation, coronary artery disease status post IN, denies any history of COPD or asthma. Uses CPAP at home frequently. chronic diastolic heart failure, diabetes, hyperlipidemia, hypertension, hypertensive cardi ovascular disease, end-stage renal disease on hemodialysis Monday and Monday, aortic stenosis status post TAVR in 2018, with h/o multiple urinary tract infection treated by Dr Borrego who also did cystoscopy on 05/22 done for recurrent UIT followed by bactrim for klebsiella and ecoli uti on 06/07/2020 Patient presents to emergency room secondary to sacral pain, was being transported from dialysis back to [facility] on the [place] [facility] [employer] wheelchair van, when patient complained of worsening sacral pain, she had recently fractured distal left femur 10/23/2020 at [facility] and was trasnsfered to [facility] yesterday 11/01 she ws there only less than 12 hrs , which is worse, there is some concern regarding worsening of the sacral wound, and patient is wheelchair bound it was present prior to her admission at [place]. This wound has been present over the past one month, there is no fever no purulent drainage, however pain is uncontrolled. Patient was subsequently admitted, has been seen by Dr. Obrien in the past for E. coli UTI and bacteremia, 09/17/2020, patient has CT pelvis without contrast, showing subcutaneous edema over the posterior lower pelvis, and sacrum is slightly increased compared to old examination, no evidence of osteomyelitis, patient was admitted for sacral cellulitis, with sacral decubitus ulcer, with consultation to Dr. Obrien, IV cefepime blood cultures and sacral wound ulcers to be sent for culture , she does not void as much nearly anuric, not using any depends, appetite low, spoke with daughter wants bipap for use while here, cpap is at [facility]. wants marinol for appetite, and protein supplementation, 11/02: Patient's at that site, pain is slightly better, however she is much more comfortable, overlay mattress was provided hydrocodone when necessary for pain, appetite is much better, no fever no chills, blood sugars are between 185-287, hemoglobin A1c 5.7 creatinine at 3.8 BUN of 49, TSH normal at 0.9 Dr. Easley thinks that no systemic antibiotic therapy is needed for now, on no cold [place] for wound care, no wound VAC recommendation at this time, awaiting cultures. Dialysis, Monday schedule, we will discontinue Seprafilm per recommendations from ID unable to provide urinalysis at this time patient is anuric Review of Systems Constitutional: Reports as per HPI, Reports chills, Denies anorexia, Denies chronic headaches, Denies chronic pain, Denies daytime sleepiness, Denies fatigue, Denies fever, Denies lethargy, Denies malaise, Denies night sweats, Denies poor appetite, Denies sweats, Denies weakness, Denies weight gain, Denies weight loss Ears, nose, mouth and throat: Reports as per HPI Cardiovascular: Reports as per HPI, Reports dyspnea on exertion, Reports edema Respiratory: Reports as per HPI, Denies cough Gastrointestinal: Reports as per HPI, Reports constipation, Denies excessive gas, Denies heartburn, Denies indigestion, Denies vomiting Genitourinary: Reports as per HPI, Reports pelvic pain, Reports stress incontinence, Denies genital sores Menstruation: Reports as per HPI Musculoskeletal: Reports as per HPI Integumentary: Reports as per HPI, Reports wounds Neurological: Reports as per HPI Psychiatric: Reports as per HPI, Reports anxiety attacks, Denies anhedonia, Denies anxiety, Denies change in appetite, Denies change in sleep habits, Denies confusion, Denies depression, Denies difficulty concentrating, Denies disorientation, Denies hallucinations, Denies hopelessness, Denies hypersomnia, Denies insomnia, Denies irritability, Denies memory loss, Denies mood swings, Denies paranoia, Denies sadness/tearfulness, Denies sleep disturbances, Denies suicidal ideation Endocrine: Reports fatigue Hematologic/Lymphatic: Reports as per HPI Allergic/Immunologic: Reports as per HPI Objective - Vital Signs Vital signs: Vital Signs Temp 97.5 F L 11/02/20 13:00 Pulse 72 11/02/20 13:00 Resp 18 11/02/20 13:00 BP 123/66 11/02/20 13:00 Pulse Ox 98 11/02/20 13:00 Intake & Output 11/01/20 11/02/20 11/02/20 18:59 06:59 18:59 Intake Total 210 250 160 Balance 210 250 160 Weight 77.111 kg Intake: Intake, IV Titration 210 250 Amount Cefepime 1 gm In Sodium 50 50 Chloride 0.9% 50 ml @ 12. 5 mls/hr IVPB Q12H [facility] Rx #:[id number] Sodium Chloride 0.9% 1, 160 200 000 ml @ 20 mls/hr IV . Q24H [facility] Rx#:[id number] Oral 160 Other: Voiding Method Diaper Diaper Diaper # Voids 1 # Bowel Movements 2 - Constitutional General appearance: Present: cooperative, no acute distress - EENT Eyes: Present: EOMI, PERRLA, dentition normal ENT: Present: NA/AT, normal oropharynx - Respiratory Respiratory: bilateral: CTA, negative: diminished, dullness, rales - Cardiovascular Rhythm: regular Heart sounds: normal: S1, S2 Abnormal Heart Sounds: Absent: systolic murmur, diastolic murmur, rub, S3 Dwyer p, S4 Gallop, click, other - Gastrointestinal General gastrointestinal: Present: normal bowel sounds, soft - Labs CBC & Chem 7: 11/02/20 05:04 11/02/20 05:04 Labs: Abnormal Lab Results - Last 24 Hours (Table) 11/01/20 11/02/20 11/02/20 Range/Units 22:27 05:04 05:04 WBC 12.1 H (3.8-10.6) k/uL RBC 2.46 L (3.80-5.40) m/uL Hgb 7.5 L D (11.4-16.0) gm/dL Hct 23.1 L (34.0-46.0) % RDW 17.5 H (11.5-15.5) % Neutrophils # 9.8 H (1.3-7.7) k/uL Sodium 130 L (135-145) mmol/L Chloride 93 L (96-109) mmol/L Anion Gap 14.80 H (4.00-12.00) mmol/L BUN 49.0 H (9.0-27.0) mg/dL Creatinine 3.8 H (0.6-1.5) mg/dL Est GFR (CKD-EPI)AfAm 12.8 L (60.0-200.0) Est GFR (CKD-EPI)NonAf 11.0 L (60.0-200.0) Glucose 247 H (70-110) mg/dL POC Glucose (mg/dL) 287 H (75-99) mg/dL Calcium 8.4 L (8.7-10.3) mg/dL Alkaline Phosphatase 215 H (41-126) U/L Albumin 3.20 L (3.80-4.90) g/dL Albumin/Globulin Ratio 1.07 L (1.60-3.17) g/dL 11/02/20 11/02/20 11/02/20 Range/Units 07:03 11:31 17:02 WBC (3.8-10.6) k/uL RBC (3.80-5.40) m/uL Hgb (11.4-16.0) gm/dL Hct (34.0-46.0) % RDW (11.5-15.5) % Neutrophils # (1.3-7.7) k/uL Sodium (135-145) mmol/L Chloride (96-109) mmol/L Anion Gap (4.00-12.00) mmol/L BUN (9.0-27.0) mg/dL Creatinine (0.6-1.5) mg/dL Est GFR (CKD-EPI)AfAm (60.0-200.0) Est GFR (CKD-EPI)NonAf (60.0-200.0) Glucose (70-110) mg/dL POC Glucose (mg/dL) 244 H 266 H 185 H (75-99) mg/dL Calcium (8.7-10.3) mg/dL Alkaline Phosphatase (41-126) U/L Albumin (3.80-4.90) g/dL Albumin/Globulin Ratio (1.60-3.17) g/dL Microbiology - Last 24 Hours (Table) 11/02/20 05:55 Gram Stain - Preliminary Buttock Wound Culture - Preliminary 11/02/20 05:55 Anaerobic Culture - Preliminary Coccyx 10/31/20 16:01 Blood Culture - Preliminary Blood No Growth after 24 hours 10/31/20 16:01 Blood Culture - Preliminary Blood No Growth after 24 hours Assessment and Plan Plan: 1. Sacral decubiti with cellulitis, stage II, patient's wheelchair bound, most likely pressure ulcer, consult with Dr. Obrien, IV cefepime, cultures 2 history of Recurrent UTI, none currently, status post cystoscopy, by Dr. Borrego, previous culture positive for E. coli and klebsiella during last cultureson chronic prophylactic antibiotics including nitrofurantoin and Mande adrien 3recent fracture left distal femur, orif on 10/23/2020, [facility] 3 Oliguria secondary to end-stage kidney disease, still making 400 mL per day, consult with nephrology, on hemodialysis Monday and Monday 12 Diabetes mellitus type 2, insulin requiring. Continue insulin sliding scale. Continue Lantus 20 units twice a day 5 End-stage renal disease on hemodialysis Monday and Monday, consult Dr. Manrique 6 Chronic diastolic heart failure. Continue hemodialysis. Continue home dose of Lasix at 80 mg twice daily as well as metoprolol 50 mg Monday, and metolazone 5 mg twice a day 7 History of aortic stenosis status post TAVR. 8 Hypertension cardiovascular disease. Continue amiodarone 100 mg daily and metoprolol. 10 Paroxysmal atrial fibrillation. Continue amiodarone 100 mg once daily and metoprolol a history of GI bleed no past several years ago, not on any anticoagulation due to increased risk of fall and GI bleeding 11 History of myocardial infarction and coronary artery disease status post LAD stent in July 2017 and left circumflex in August 2017. Continue Toprol-XL 50 mg once daily, and Plavix 13 GERD continue Protonix. 14 History of hyperlipidemia continue Zetia 10mg daily 15 Obstructive sleep apnea, on CPAP machine at night, along with O2 supplementation will do bipap while here 16. Diabetic peripheral neuropathy continue gabapentin 300 mg twice daily. 17. Recurrent depression. Continue Cymbalta 60 mg orally once daily DVT prophylaxis. Heparin subcu every 12 GI prophylaxis continue Protonix.
[2020-11-02 20:35] LABS: Glucose,Whole Blood 187 mg/dL (75-99)
[2020-11-03] MEDS ORDERED: CEFEPIME 1 GM in SODIUM CHLORIDE 0.9% 50 ML IVPB SCH (06:00)
--- NOTE | 2020-11-03 07:01 | PN ---
PROGRESS NOTE DATE OF SERVICE: 11/02/2020 REASON FOR FOLLOWUP: Stage 3 sacral pressure ulcer. INTERVAL HISTORY: Patient is afebrile. She has been complaining of pain to the lower back area. The patient denies having any chest pain, shortness of breath or cough. No nausea, vomiting or diarrhea. PHYSICAL EXAMINATION: Blood pressure 106/56, pulse of 79, temperature 98.3, she is 99% on 4 L nasal cannula. General description is an elderly female lying in bed in no distress. Respiratory system: Unlabored breathing, clear to auscultation anteriorly. Heart S1, S2. Regular rate and rhythm. Abdomen is soft, no tenderness. LABS: White count is 12,000, creatinine 3.8. Blood culture so far negative. DIAGNOSTIC IMPRESSION AND PLAN: Patient with stage 3 sacral pressure ulcer with slough tissue. Local care to continue with Santyl and moist dressing. May benefit from a surgery evaluation and possible debridement and deep cultures. Continue supportive care. MMODL / IJN: [id number] /
[2020-11-03 07:26] LABS: Glucose,Whole Blood 97 mg/dL (75-99)
[2020-11-03] MEDS: INSULIN ASPART (NovoLOG) 100 UNIT/ML VIAL SQ SCH ×4 (08:48→21:00)
[2020-11-03] MEDS: DULoxetine HCL 60 MG CAPSULE.DR PO SCH (08:56)
[2020-11-03] MEDS: PANTOPRAZOLE 40 MG TABLET PO SCH (08:56)
[2020-11-03] MEDS: AMIODARONE 100 MG TAB PO SCH (08:56)
[2020-11-03] MEDS: EZETIMIBE 10 MG TAB PO SCH (08:56)
[2020-11-03] MEDS: ASPIRIN 81 MG PO SCH (08:56)
[2020-11-03] MEDS: SEVELAMER 800 MG TAB PO SCH (08:56)
[2020-11-03] MEDS: INSULIN DETEMIR (LEVEMIR) 100 UNIT/ML SYR SQ SCH ×2 (08:56→21:00)
[2020-11-03] MEDS: GABAPENTIN 300 MG CAP PO SCH ×2 (08:56→21:00)
[2020-11-03] MEDS: METOPROLOL SUCCINATE (ER) 50 MG TAB.ER.24H PO SCH (08:56)
[2020-11-03] MEDS: COLLAGENASE 250 UNIT/GM OINTMENT 30 GM TUBE TOPICAL SCH (08:57)
--- NOTE | 2020-11-03 10:19 | P.PN ---
Subjective Patient is seen in follow-up for end-stage renal disease. She is maintained on hemodialysis on Monday schedule. Blood pressure stable. Currently on BiPAP. Being treated for stage III pressure ulcer. No active complaints. Vital signs are stable. General: The patient appeared well nourished and normally developed. HEENT: On BiPAP. LUNGS: Breath sounds decreased. HEART: Rate and Rhythm are regular. ABDOMEN: Soft, obese. EXTREMITITES: No edema. Objective - Vital Signs Vital signs: Vital Signs Temp 98.3 F 11/02/20 20:25 Pulse 78 11/03/20 08:00 Resp 18 11/03/20 08:00 BP 132/62 11/03/20 04:56 Pulse Ox 98 11/03/20 04:56 Intake & Output 11/02/20 11/03/20 11/03/20 18:59 06:59 18:59 Intake Total 160 200 Balance 160 200 Weight 77.111 kg Intake: Oral 160 200 Other: Voiding Method Diaper Diaper Diaper # Voids 1 0 - Labs CBC & Chem 7: 11/02/20 05:04 11/02/20 05:04 Labs: Abnormal Lab Results - Last 24 Hours (Table) 11/02/20 11/02/20 11/02/20 Range/Units 11:31 17:02 20:34 POC Glucose (mg/dL) 266 H 185 H 187 H (75-99) mg/dL Microbiology - Last 24 Hours (Table) 11/02/20 05:55 Gram Stain - Preliminary Buttock Wound Culture - Preliminary Rosario albicans 10/31/20 16:01 Blood Culture - Preliminary Blood No Growth after 48 hours 10/31/20 16:01 Blood Culture - Preliminary Blood No Growth after 48 hours 11/02/20 05:55 Anaerobic Culture - Preliminary Coccyx Assessment and Plan Plan: Assessment: 1. End-stage renal disease maintained on hemodialysis on Monday schedule. 2. Sacral wound s/p antibiotics. Infectious disease following. 3. Recent UTI and E. coli bacteremia. 4. Anemia of chronic kidney disease maintained on Aranesp. 5. Diabetes mellitus. 6. 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 Plan: Hemodialysis today.
--- NOTE | 2020-11-03 11:28 | PN ---
PROGRESS NOTE DATE OF SERVICE: 11/03/2020. REASON FOR FOLLOWUP: Stage III sacral pressure ulcer. INTERVAL HISTORY: Patient is afebrile. The patient is breathing comfortably. The patient denies having any chest pain, no shortness of breath or cough. No abdominal pain, no diarrhea. PHYSICAL EXAMINATION: Blood pressure 130/62 with a pulse of 78, temperature of 98, she is 98% on 2 L currently. Patient is an elderly female lying in bed in no distress. RESPIRATORY SYSTEM: Unlabored breathing, clear to auscultation anteriorly. HEART S1, S2. Regular rate and rhythm. ABDOMEN: No mass palpable. LABS: No new labs been obtained today. Wound culture showing a Rosario albicans. DIAGNOSTIC IMPRESSION AND PLAN: Patient with a stage III sacral pressure ulcer. Patient will benefit from surgical debridement and deep cultures. For now we will keep the patient on Santyl and cefepime. Local culture positive for Rosario, likely representing a colonization and not true infection. No need for Diflucan. MMODL / IJN: [id number] /
[2020-11-03 11:56] LABS: Glucose,Whole Blood 129 mg/dL (75-99)
--- NOTE | 2020-11-03 12:41 | P.CONS ---
History of Present Illness - Reason for Consult Consult date: 11/03/20 wound care - History of Present Illness this 75-year-old patient being seen by the wound care center on [address] for nonhealing pressure ulceration to the coccyx. Patient recently had a surgical debridement and Santyl to the site previously for a stage II pressure ulcer. At this time the ulceration measures approximately 10 x 8 x 0.2 with significant amount of slough and nonviable tissue noted to the wound bed and minimal granulation. The wound edges does show some redness.. Wound edges are attached to the wound base is no tone undermining noted.patient's past medical history significant for atrial fibrillation, coronary artery disease, heart failure, diabetes, dialysis, GERD, GI bleed, hyperterlipidemia, sleep apnea. Patient is wheelchair bound. Review Of Systems: Constitutional: No fever, no chills, no night sweats. No weight change. No weakness, fatigue or lethargy. No daytime sleepiness. Integumentary:reports wounds, no lesions. No rash or pruritus. No unusual bruising. No change in hair or nails. Physical exam: General Appearance: Alert, cooperative, no distress, appears stated age. Skin: See HPI all other Skin color, texture, tugor normal, no rashes or lesions. Neurologic: Alert oriented x3 Assessment: 1. Stage III pressure ulcer sacrum 2. Diabetes with skin ulceration 3. Wheelchair bound Plan: 1. Apply Santyl, saline moistened gauze, dry gauze, ABDs and secured paper tape. Change daily. Patient would benefit from a surgical debridement and continue with Santyl. Continue with wound dressings upon return to [facility]. Patient would benefit from weekly wound debridements. We will be happy to see her in the wound care center upon discharge. Utilize a [employer] cg in a wheelchair. Utilize a air-filled overlay mattress. Turn patient every 2 hours. Thank you for the consultation any questions please contact the wound care center DNP note has been reviewed and discussed with Dr. Nelson and the impression and plan of care has been directed as dictated. Past Medical History Past Medical History: Atrial Fibrillation, Coronary Artery Disease (CAD), Heart Failure, Diabetes Mellitus, Dialysis, GERD/Reflux, GI Bleed, Hyperlipidemia, Hypertension, Myocardial Infarction ([place]), Pneumonia, Renal Disease, Sleep Apnea/CPAP/BIPAP, Vascular Disorder Additional Past Medical History / Comment(s): HEMODIALYSIS- MONDAY,MONDAY,AND MONDAY . USES WHEELCHAIR-TRANSFERS ONLY -CAN TAKE A COUPLE OF STEPS, hx. GI bleed >year ago, SOB w/exertion, uses oxygen prn @2l, see Dr Combs H & P. TAVR Last Myocardial Infarction Date:: 2015 History of Any Multi-Drug Resistant Organisms: MRSA Year Discovered:: 02/09/18 MDRO Source:: LT THIRD TOE Past Surgical History: Back Surgery, Cholecystectomy, Heart Catheterization, Heart Catheterization With Stent, Hysterectomy, Orthopedic Surgery Additional Past Surgical History / Comment(s): PCI with stents, several back s urgeries-lumbar, bilateral carpal tunnel releases, bilateral cataract removals, port then fistula for hemodialysis. PTBA to left leg 03-02-18. TAVR in [address] Rock at [facility] Past Anesthesia/Blood Transfusion Reactions: Previous Problems w/ Anesthesia Additional Past Anesthesia/Blood Transfusion Reaction / Comm: Confusion that resolved. Date of Last Stent Placement:: 10/06/17 Past Psychological History: No Psychological Hx Reported Additional Psychological History / Comment(s): Single but lives with her daughter who is her caregiver Smoking Status: Never smoker Past Alcohol Use History: None Reported Additional Past Alcohol Use History / Comment(s): Patient had exposure to secondhand smoke with her . Past Drug Use History: None Reported - Past Family History Father Additional Family Medical History / Comment(s): Brain aneurysm ; age 72 Sister(s) Family Medical History: Hypertension Additional Family Medical History / Comment(s): Aortic stenosis; mitral valve disease Mother Family Medical History: No Reported History, AFIB, CVA/TIA, Hypertension Additional Family Medical History / Comment(s): mother age 83 Daughter(s) Family Medical History: Asthma Son(s) Family Medical History: Asthma Medications and Allergies Home Medications Medication Instructions Recorded Confirmed Type DULoxetine HCL [Cymbalta] 60 mg PO DAILY@89908/04/14 10/31/20 History Amiodarone HCl [Pacerone] 100 mg PO DAILY@89911/22/15 10/31/20 History Ezetimibe [Zetia] 10 mg PO DAILY@89911/22/15 10/31/20 History Omeprazole 20 mg PO DAILY@89912/25/16 10/31/20 History Aspirin [Adult Low Dose Aspirin EC] 81 mg PO DAILY@89903/02/18 10/31/20 History Metoprolol Succinate (ER) [Toprol 50 mg PO DAILY@89901/12/20 10/31/20 History XL] Sevelamer [Renvela] 800 mg PO DAILY@89901/12/20 10/31/20 History Gabapentin 300 mg PO BID@0900,209910/22/20 10/31/20 History INSULIN ASPART (NovoLOG) [NovoLOG See Protocol SQ ACHS 10/22/20 10/31/20 History (formulary)] Insulin Glargine,Hum.rec.anlog 20 units SQ BID@0800,209910/31/20 10/31/20 History [Semglee Pen] Levofloxacin [Levaquin] 500 mg PO DAILY@89910/31/20 10/31/20 History traMADol HCL 50 mg PO Q6H PRN 10/31/20 10/31/20 History Allergies Allergy/AdvReac Type Severity Reaction Status Date / Time KUSHAL Inhibitors Allergy Swelling Verified 10/31/20 17:58 ARB-Angiotensin Receptor Allergy Swelling Verified 10/31/20 17:58 Antagonist cephalexin monohydrate Allergy Rash/Hives, Verified 10/31/20 17:58 [From Keflex] MOUTH SWELLING propoxyphene HCl AdvReac Hallucinati Verified 10/31/20 17:58 [From Darvon] ons Lgtrtwi-Zgz-Oln Reductase AdvReac Myalgia Verified 10/31/20 17:58 Inhibitor Physical Exam Vitals: Vital Signs Temp Pulse Resp BP Pulse Ox 11/03/20 12:26 98 F 74 16 112/62 99 11/03/20 08:00 78 18 11/03/20 04:56 78 18 132/62 98 11/03/20 01:07 98 11/02/20 20:25 98.3 F 79 16 106/56 99 11/02/20 19:55 79 16 11/02/20 13:00 97.5 F L 72 18 123/66 98 Intake and Output 11/02/20 11/03/20 11/03/20 22:59 06:59 14:59 Intake Total 160 200 Balance 160 200 Intake: Oral 160 200 Other: Voiding Method Diaper Diaper # Voids 1 0 Results CBC & Chem 7: 11/02/20 05:04 11/02/20 05:04 Labs: Abnormal Lab Results - Last 24 Hours (Table) 11/02/20 11/02/20 11/03/20 Range/Units 17:02 20:34 11:49 POC Glucose (mg/dL) 185 H 187 H 129 H (75-99) mg/dL Microbiology - Last 24 Hours (Table) 11/02/20 05:55 Gram Stain - Preliminary Buttock Wound Culture - Preliminary Rosario albicans 10/31/20 16:01 Blood Culture - Preliminary Blood No Growth after 48 hours 10/31/20 16:01 Blood Culture - Preliminary Blood No Growth after 48 hours 11/02/20 05:55 Anaerobic Culture - Preliminary Coccyx Assessment and Plan (1) Decubitus ulcer of sacral region, stage 3 Current Visit: Yes Status: Acute Code(s): L89.153 - PRESSURE ULCER OF SACRAL REGION, STAGE 3 SNOMED Code(s): 698179923 (2) Diabetes with skin ulcer Current Visit: Yes Status: Acute Code(s): E11.622 - TYPE 2 DIABETES MELLITUS WITH OTHER SKIN ULCER; L98.499 - NON-PRESSURE CHRONIC ULCER OF SKIN OF SITES W UNSP SEVERITY SNOMED Code(s): 66348813
[2020-11-03] MEDS ORDERED: COLLAGENASE 250 UNIT/GM OINTMENT 30 GM TUBE TOPICAL SCH (12:45)
--- NOTE | 2020-11-03 13:06 | P.PN ---
Subjective Progress Note Date: 11/03/20 HISTORY OF PRESENT ILLNESS This is a 74-year-old female patient of Dr. Farias with past medical history of proximal atrial fibrillation, coronary artery disease status post CT, denies any history of COPD or asthma. Uses CPAP at home frequently. chronic diastolic heart failure, diabetes, hyperlipidemia, hypertension, hypertensive cardiovascular disease, end-stage renal disease on hemodialysis Monday and Monday, aortic stenosis status post TAVR in 2018, with h/o multiple urinary tract infection treated by Dr Borrego who also did cystoscopy on 05/22 done for recurrent UIT followed by bactrim for klebsiella and ecoli uti on 06/07/2020 Patient presents to emergency room secondary to sacral pain, was being transported from dialysis back to [facility] on the [place] [facility] [employer] wheelchair van, when patient complained of worsening sacral pain, she had recently fracture d distal left femur 10/23/2020 at [facility] and was trasnsfered to [facility] yesterday 11/01 she ws there only less than 12 hrs , which is worse, there is some concern regarding worsening of the sacral wound, and patient is wheelchair bound it was present prior to her admission at [facility]. This wound has been present over the past one month, there is no fever no purulent drainage, however pain is uncontrolled. Patient was subsequently admitted, has been seen by Dr. Obrien in the past for E. coli UTI and bacteremia, 09/17/2020, patient has CT pelvis without contrast, showing subcutaneous edema over the posterior lower pelvis, and sacrum is slightly increased compared to old examination, no evidence of osteomyelitis, patient was admitted for sacral cellulitis, with sacral decubitus ulcer, with consultation to Dr. Obrien, IV cefepime blood cultures and sacral wound ulcers to be sent for culture , she does not void as much nearly anuric, not using any depends, appetite low, spoke with daughter wants bipap for use while here, cpap is at [facility]. wants marinol for appetite, and protein s upplementation, 11/02: Patient's at that site, pain is slightly better, however she is much more comfortable, overlay mattress was provided hydrocodone when necessary for pain, appetite is much better, no fever no chills, blood sugars are between 185-287, hemoglobin A1c 5.7 creatinine at 3.8 BUN of 49, TSH normal at 0.9 Dr. Easley thinks that no systemic antibiotic therapy is needed for now, on no cold [place] for wound care, no wound VAC recommendation at this time, awaiting cultures. Dialysis, Monday schedule, we will discontinue Seprafilm per recommendations from ID unable to provide urinalysis at this time patient is anuric 11/03: Patient has been seen by Dr. Obrien with recommendations for general surgery consult for possible debridement of the stage III pressure ulcer. Consult with Dr. Pierson has been added. Patient has been seen by wound team with recommendations for Santyl to be changed daily and recommended weekly wound debridements at the care home or follow up in the wound healing Center as an outpatient. Nephrology is following and continued on hemodialysis on Monday schedule and is scheduled for hemodialysis today. Patient has been afebrile, heart rate 74, blood pressure 112/62, pulse ox 99% on 2 L nasal cannula. Blood sugars are running between 97 and 187. Wound culture is positive for Rosario to the buttocks. Anaerobic culture is in progress. REVIEW OF SYSTEMS Constitutional: Reports as per HPI, Reports chills, Denies anorexia, Denies chronic headaches, Denies chronic pain, Denies daytime sleepiness, Denies fatigue, Denies fever, Denies lethargy, Denies malaise, Denies night sweats, Den ies poor appetite, Denies sweats, Denies weakness, Denies weight gain, Denies weight loss Ears, nose, mouth and throat: Reports as per HPI Cardiovascular: Reports as per HPI, Reports dyspnea on exertion, Reports edema Respiratory: Reports as per HPI, Denies cough Gastrointestinal: Reports as per HPI, Reports constipation, Denies excessive gas, Denies heartburn, Denies indigestion, Denies vomiting Genitourinary: Reports as per HPI, Reports pelvic pain, Reports stress inco ntinence, Denies genital sores Menstruation: Reports as per HPI Musculoskeletal: Reports as per HPI Integumentary: Reports as per HPI, Reports wounds Neurological: Reports as per HPI Psychiatric: Reports as per HPI, Reports anxiety attacks, Denies anhedonia, Denies anxiety, Denies change in appetite, Denies change in sleep habits, Denies confusion, Denies depression, Denies difficulty concentrating, Denies disorientation, Denies hallucinations, Denies hopelessness, Denies hypersomnia, Denies insomnia, Denies irritability, Denies memory loss, Denies mood swings, Denies paranoia, Denies sadness/tearfulness, Denies sleep disturbances, Denies suicidal ideation Endocrine: Reports fatigue Hematologic/Lymphatic: Reports as per HPI Allergic/Immunologic: Reports as per HPI PHYSICAL EXAMINATION Gen: This is a 75 year old obese female. Patient is resting in bed and appears to be comfortable at rest. HEENT: Head is atraumatic, normocephalic. Pupils equal, round. Sclerae is anicteric. NECK: Supple. No JVD. No lymphadenopathy. No thyromegaly. LUNGS: Clear to auscultation. No wheezes or rhonchi. No intercostal retractions. HEART: Regular rate and rhythm. Systolic ejection murmur at the base. ABDOMEN: Soft. Bowel sounds are present. No masses. No tenderness. SKIN: Stage III decubitus ulcer to coccyx. EXTREMITIES: No pedal edema. No calf tenderness. NEUROLOGICAL: Patient is awake, alert and oriented x3. Cranial nerves 2 through 12 are grossly intact. ASSESSMENT AND PLAN 1. Sacral decubitus ulcer with cellulitis, stage III, patient's wheelchair bound, most likely pressure ulcer, consult with Dr. Obrien, off antibiotics, antibiotics and progress, consult with Gen. surgery added for possible debridement. Wound care team consult appreciated. Continue Santyl daily. 2. History of Recurrent UTI, none currently, status post cystoscopy, by Dr. Borrego, previous culture positive for E. coli and klebsiella during last cu ltureson chronic prophylactic antibiotics including nitrofurantoin and Mandelamine 3. Recent fracture left distal femur, [facility] on 10/23/2020, [facility] 4. Oliguria secondary to end-stage kidney disease, still making 400 mL per day, consult with nephrology, on hemodialysis Monday and Monday 5. Diabetes mellitus type 2, insulin requiring. Continue insulin sliding scale. Continue Lantus 20 units twice a day 6. End-stage renal disease on hemodialysis Monday and Monday, consult Dr. Manrique 7. Chronic diastolic heart failure. Continue hemodialysis. Lasix, metolazone on hold. Continue Toprol-XL. 8. History of aortic stenosis status post TAVR. 9. Hypertension cardiovascular disease. Continue amiodarone 100 mg daily and metoprolol. 10. Paroxysmal atrial fibrillation. Continue amiodarone 100 mg once daily and metoprolol a history of GI bleed no past several years ago, not on any anticoagulation due to increased risk of fall and GI bleeding 11. History of myocardial infarction and coronary artery disease status post LAD stent in July 2017 and left circumflex in August 2017. Continue Toprol-XL 50 mg once daily. 12. GERD continue Protonix. 13. History of hyperlipidemia continue Zetia 10mg daily 14. Obstructive sleep apnea, on CPAP machine at night, along with O2 supplementation. 15. Diabetic peripheral neuropathy continue gabapentin 300 mg twice daily. 17. Recurrent depression. Continue Cymbalta 60 mg orally once daily DVT prophylaxis. Heparin subcu every 12 GI prophylaxis continue Protonix. DISCHARGE PLAN Return to [facility] Impression and plan of care have been directed as dictated by the signing physician. Jessenia Gonzalez nurse practitioner acting as scribe for signing physician. Objective - Vital Signs Vital signs: Vital Signs Temp 98.3 F 11/02/20 20:25 Pulse 78 11/03/20 04:56 Resp 18 11/03/20 04:56 BP 132/62 11/03/20 04:56 Pulse Ox 98 11/03/20 04:56 Intake & Output 11/02/20 11/03/20 11/03/20 18:59 06:59 18:59 Intake Total 160 200 Balance 160 200 Weight 77.111 kg Intake: Oral 160 200 Other: Voiding Method Diaper Diaper # Voids 1 0 - Labs CBC & Chem 7: 11/02/20 05:04 11/02/20 05:04 Labs: Abnormal Lab Results - Last 24 Hours (Table) 11/02/20 11/02/20 11/02/20 Range/Units 05:04 11:31 17:02 Sodium 130 L (135-145) mmol/L Chloride 93 L (96-109) mmol/L Anion Gap 14.80 H (4.00-12.00) mmol/L BUN 49.0 H (9.0-27.0) mg/dL Creatinine 3.8 H (0.6-1.5) mg/dL Est GFR (CKD-EPI)AfAm 12.8 L (60.0-200.0) Est GFR (CKD-EPI)NonAf 11.0 L (60.0-200.0) Glucose 247 H (70-110) mg/dL POC Glucose (mg/dL) 266 H 185 H (75-99) mg/dL Calcium 8.4 L (8.7-10.3) mg/dL Alkaline Phosphatase 215 H (41-126) U/L Albumin 3.20 L (3.80-4.90) g/dL Albumin/Globulin Ratio 1.07 L (1.60-3.17) g/dL 11/02/20 Range/Units 20:34 Sodium (135-145) mmol/L Chloride (96-109) mmol/L Anion Gap (4.00-12.00) mmol/L BUN (9.0-27.0) mg/dL Creatinine (0.6-1.5) mg/dL Est GFR (CKD-EPI)AfAm (60.0-200.0) Est GFR (CKD-EPI)NonAf (60.0-200.0) Glucose (70-110) mg/dL POC Glucose (mg/dL) 187 H (75-99) mg/dL Calcium (8.7-10.3) mg/dL Alkaline Phosphatase (41-126) U/L Albumin (3.80-4.90) g/dL Albumin/Globulin Ratio (1.60-3.17) g/dL Microbiology - Last 24 Hours (Table) 11/02/20 05:55 Gram Stain - Preliminary Buttock Wound Culture - Preliminary Rosario albicans 10/31/20 16:01 Blood Culture - Preliminary Blood No Growth after 48 hours 10/31/20 16:01 Blood Culture - Preliminary Blood No Growth after 48 hours 11/02/20 05:55 Anaerobic Culture - Preliminary Coccyx
--- NOTE | 2020-11-03 16:09 | P.GSCN ---
History of Present Illness Consult date: 11/03/20 Reason for Consult: Sacral decubitus ulcer History of present illness: The patient was admitted with a sacral decubitus cellulitis. This a developed during her prior hospitalization, the daughter also thought that being transported by wheelchair to her dialysis was contributing to this. She is admitted and on IV antibiotics. The patient was evaluated by Dr. Obrien who felt the wound needed debridement and deep cultures. According to the patient's daughter she's not had any issues with decubitus ulcers in the past. Review of Systems All systems: negative Past Medical History Past Medical History: Atrial Fibrillation, Coronary Artery Disease (CAD), Heart Failure, Diabetes Mellitus, Dialysis, GERD/Reflux, GI Bleed, Hyperlipidemia, Hypertension, Myocardial Infarction ([place]), Pneumonia, Renal Disease, Sleep Apnea/CPAP/BIPAP, Vascular Disorder Additional Past Medical History / Comment(s): HEMODIALYSIS- MONDAY,MONDAY,AND MONDAY . USES WHEELCHAIR-TRANSFERS ONLY -CAN TAKE A COUPLE OF STEPS, hx. GI bleed >year ago, SOB w/exertion, uses oxygen prn @2l, see Dr Combs H & P. TAVR Last Myocardial Infarction Date:: 2015 History of Any Multi-Drug Resistant Organisms: MRSA Year Discovered:: 02/09/18 MDRO Source:: LT THIRD TOE Past Surgical History: Back Surgery, Cholecystectomy, Heart Catheterization, Heart Catheterization With Stent, Hysterectomy, Orthopedic Surgery Additional Past Surgical History / Comment(s): PCI with stents, several back surgeries-lumbar, bilateral carpal tunnel releases, bilateral cataract removals, port then fistula for hemodialysis. PTBA to left leg 03-02-18. TAVR in [address] Rock at [facility] Past Anesthesia/Blood Transfusion Reactions: Previous Problems w/ Anesthesia Additional Past Anesthesia/Blood Transfusion Reaction / Comm: Confusion that resolved. Date of Last Stent Placement:: 10/06/17 Past Psychological History: No Psychological Hx Reported Additional Psychological History / Comment(s): Single but lives with her daughter who is her caregiver Smoking Status: Never smoker Past Alcohol Use History: None Reported Additional Past Alcohol Use History / Comment(s): Patient had exposure to secondhand smoke with her . Past Drug Use History: None Reported - Past Family History Father Additional Family Medical History / Comment(s): Brain aneurysm ; age 72 Sister(s) Family Medical History: Hypertension Additional Family Medical History / Comment(s): Aortic stenosis; mitral valve disease Mother Family Medical History: No Reported History, AFIB, CVA/TIA, Hypertension Additional Family Medical History / Comment(s): mother age 83 Daughter(s) Family Medical History: Asthma Son(s) Family Medical History: Asthma Medications and Allergies Home Medications Medication Instructions Recorded Confirmed Type DULoxetine HCL [Cymbalta] 60 mg PO DAILY@89908/04/14 10/31/20 History Amiodarone HCl [Pacerone] 100 mg PO DAILY@89911/22/15 10/31/20 History Ezetimibe [Zetia] 10 mg PO DAILY@89911/22/15 10/31/20 History Omeprazole 20 mg PO DAILY@89912/25/16 10/31/20 History Aspirin [Adult Low Dose Aspirin EC] 81 mg PO DAILY@89903/02/18 10/31/20 History Metoprolol Succinate (ER) [Toprol 50 mg PO DAILY@89901/12/20 10/31/20 History XL] Sevelamer [Renvela] 800 mg PO DAILY@0901/12/20 10/31/20 History Gabapentin 300 mg PO BID@0900,209910/22/20 10/31/20 History INSULIN ASPART (NovoLOG) [NovoLOG See Protocol SQ ACHS 10/22/20 10/31/20 History (formulary)] Insulin Glargine,Hum.rec.anlog 20 units SQ BID@0800,2100 10/31/20 10/31/20 History [Semglee Pen] Levofloxacin [Levaquin] 500 mg PO DAILY@0910/31/20 10/31/20 History traMADol HCL 50 mg PO Q6H PRN 10/31/20 10/31/20 History Allergies Allergy/AdvReac Type Severity Reaction Status Date / Time KUSHAL Inhibitors Allergy Swelling Verified 10/31/20 17:58 ARB-Angiotensin Receptor Allergy Swelling Verified 10/31/20 17:58 Antagonist cephalexin monohydrate Allergy Rash/Hives, Verified 10/31/20 17:58 [From Keflex] MOUTH SWELLING propoxyphene HCl AdvReac Hallucinati Verified 10/31/20 17:58 [From Darvon] ons Hlydzdr-Eax-Pdx Reductase AdvReac Myalgia Verified 10/31/20 17:58 Inhibitor Surgical - Exam Osteopathic Statement: *. No significant issues noted on an osteopathic structural exam other than those noted in the History and Physical/Consult. Vital Signs Temp Pulse Resp BP Pulse Ox 97.7 F 83 16 100/51 99 10/31/20 15:31 10/31/20 15:31 10/31/20 15:31 10/31/20 15:31 10/31/20 15:31 - General Patient supine in the bed, currently receiving dialysis no distress - Integumentary The patient is supine in bed receiving her dialysis therefore the wound is not evaluated today. Dr. Obrien's note showing a stage III decubitus ulcer was reviewed Results - Labs 11/02/20 05:04 11/02/20 05:04 Abnormal Lab Results - Last 24 Hours (Table) 11/02/20 11/02/20 11/03/20 Range/Units 17:02 20:34 11:49 POC Glucose (mg/dL) 185 H 187 H 129 H (75-99) mg/dL Microbiology - Last 24 Hours (Table) 11/02/20 05:55 Gram Stain - Preliminary Buttock Wound Culture - Preliminary Rosario albicans 10/31/20 16:01 Blood Culture - Preliminary Blood No Growth after 48 hours 10/31/20 16:01 Blood Culture - Preliminary Blood No Growth after 48 hours Diabetes panel 11/02/20 Range/Units 05:04 Hemoglobin A1c 5.7 (4.0-6.0) % Assessment and Plan (1) Cellulitis of sacral region Current Visit: Yes Status: Acute Code(s): L03.319 - CELLULITIS OF TRUNK, UNSPECIFIED SNOMED Code(s): 626111276 (2) Decubitus ulcer of sacral region, stage 3 Current Visit: Yes Status: Acute Code(s): L89.153 - PRESSURE ULCER OF SACRAL REGION, STAGE 3 SNOMED Code(s): 773748356 (3) Diabetes with skin ulcer Current Visit: Yes Status: Acute Code(s): E11.622 - TYPE 2 DIABETES MELLITUS WITH OTHER SKIN ULCER; L98.499 - NON-PRESSURE CHRONIC ULCER OF SKIN OF SITES W UNSP SEVERITY SNOMED Code(s): 83994712 (4) Acute on chronic renal failure Current Visit: No Status: Acute Code(s): N17.9 - ACUTE KIDNEY FAILURE, UNSPECIFIED; N18.9 - CHRONIC KIDNEY DISEASE, UNSPECIFIED SNOMED Code(s): 006637437 Plan: A discussion was held with the patient's daughter at bedside along with the patient. Recommendation is for excisional debridement of any necrotic tissue in the OR. Deep cultures to be obtained. The procedure, risk and complication was discussed. Questions were encouraged and answered. I'll do this for her tomorrow. Further recommendations to follow
[2020-11-03] MEDS: SODIUM CHLORIDE 0.9% 1,000 ML IV SCH (17:19)
[2020-11-03 17:39] LABS: Glucose,Whole Blood 210 mg/dL (75-99)
[2020-11-03 19:55] LABS: Glucose,Whole Blood 239 mg/dL (75-99)
[2020-11-03] MEDS: traMADol 50 MG TAB PO PRN (21:00)
[2020-11-03] MEDS: HEPARIN SODIUM,PORCINE/PF 5,000 UNIT/0.5 ML SYRINGE SQ SCH (21:00)
[2020-11-04] MEDS ORDERED: ONDANSETRON 4 MG/2 ML VIAL IVP ONE (07:00)
[2020-11-04 07:43] LABS: Glucose,Whole Blood 192 mg/dL (75-99)
[2020-11-04] MEDS: HEPARIN SODIUM,PORCINE/PF 5,000 UNIT/0.5 ML SYRINGE SQ SCH ×2 (09:44→20:30)
[2020-11-04] MEDS: SEVELAMER 800 MG TAB PO SCH (09:44)
[2020-11-04] MEDS: DULoxetine HCL 60 MG CAPSULE.DR PO SCH (09:44)
[2020-11-04] MEDS: METOPROLOL SUCCINATE (ER) 50 MG TAB.ER.24H PO SCH (09:44)
[2020-11-04] MEDS: PANTOPRAZOLE 40 MG TABLET PO SCH (09:44)
[2020-11-04] MEDS: GABAPENTIN 300 MG CAP PO SCH ×2 (09:44→20:36)
[2020-11-04] MEDS: INSULIN ASPART (NovoLOG) 100 UNIT/ML VIAL SQ SCH ×4 (09:45→20:30)
[2020-11-04] MEDS: INSULIN DETEMIR (LEVEMIR) 100 UNIT/ML SYR SQ SCH ×2 (09:45→20:30)
[2020-11-04] MEDS: EZETIMIBE 10 MG TAB PO SCH (09:46)
[2020-11-04] MEDS: AMIODARONE 100 MG TAB PO SCH (09:46)
[2020-11-04] MEDS: COLLAGENASE 250 UNIT/GM OINTMENT 30 GM TUBE TOPICAL SCH (09:47)
[2020-11-04] MEDS: ASPIRIN 81 MG PO SCH (09:47)
--- NOTE | 2020-11-04 09:54 | P.PN ---
Subjective Patient is seen in follow-up for end-stage renal disease. She is maintained on hemodialysis on Monday schedule. No problems with dialysis yesterday. Blood pressure stable. Currently on nasal cannula. Being treated for stage III pressure ulcer. No active complaints. Patient is not a reliable historian. Vital signs are stable. General: The patient appeared well nourished and normally developed. HEENT: On BiPAP. LUNGS: Breath sounds decreased. HEART: Rate and Rhythm are regular. ABDOMEN: Soft, obese. EXTREMITITES: No edema. Objective - Vital Signs Vital signs: Vital Signs Temp 98.2 F 11/04/20 05:15 Pulse 83 11/04/20 05:15 Resp 18 11/04/20 05:15 BP 151/69 11/04/20 05:15 Pulse Ox 100 11/04/20 05:15 Intake & Output 11/03/20 11/04/20 11/04/20 18:59 06:59 18:59 Intake Total 120 240 Output Total 2000 0 Balance -1880 240 Intake: Intake, IV Titration 240 Amount Sodium Chloride 0.9% 1, 240 000 ml @ 20 mls/hr IV . Q24H [facility] Rx#:[id number] Oral 120 Output: Urine 0 0 Hemodialysis 2000 Other: Voiding Method Diaper Diaper # Voids 0 - Labs CBC & Chem 7: 11/02/20 05:04 11/02/20 05:04 Labs: Abnormal Lab Results - Last 24 Hours (Table) 11/03/20 11/03/20 11/03/20 Range/Units 11:49 17:37 19:51 POC Glucose (mg/dL) 129 H 210 H 239 H (75-99) mg/dL 11/04/20 Range/Units 07:41 POC Glucose (mg/dL) 192 H (75-99) mg/dL Microbiology - Last 24 Hours (Table) 11/02/20 05:55 Gram Stain - Final Buttock Wound Culture - Final Rosario albicans 10/31/20 16:01 Blood Culture - Preliminary Blood No Growth after 72 hours 10/31/20 16:01 Blood Culture - Preliminary Blood No Growth after 72 hours Assessment and Plan Plan: Assessment: 1. End-stage renal disease maintained on hemodialysis on Monday schedule. 2. Sacral wound s/p antibiotics. Infectious disease following. 3. Recent UTI and E. coli bacteremia. 4. Anemia of chronic kidney disease maintained on Aranesp. 5. Diabetes mellitus. 6. 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 Plan: Hemodialysis tomorrow.
[2020-11-04 12:31] LABS: Glucose,Whole Blood 155 mg/dL (75-99)
[2020-11-04] MEDS: SODIUM CHLORIDE 0.9% 1,000 ML IV SCH ×2 (14:19→15:25)
[2020-11-04] MEDS: DEXAMETHASONE SOD PHOSPHATE 4 MG/ML 1 ML VIAL IV ONE ×2 (14:30→15:37)
[2020-11-04 14:35] LABS: Glucose,Whole Blood 139 mg/dL (75-99)
[2020-11-04] MEDS ORDERED: LIDOCAINE 1% INJ 10MG/ML (20 ML MDV) ONE (15:18)
[2020-11-04] MEDS ORDERED: PROPOFOL 10 MG/ML 20 ML VIAL IV ONE (15:18)
[2020-11-04] MEDS ORDERED: ePHEDrine SULFATE/0.9% NACL/PF 50 MG/5 ML SYRINGE IV ONE (15:18)
[2020-11-04] MEDS ORDERED: fentaNYL (PF) 50 MCG/ML 2 ML AMP ONE (15:18)
--- NOTE | 2020-11-04 15:36 | P.PN ---
Subjective Progress Note Date: 11/04/20 HISTORY OF PRESENT ILLNESS This is a 74-year-old female patient of Dr. Farias with past medical history of proximal atrial fibrillation, coronary artery disease status post OK, denies any history of COPD or asthma. Uses CPAP at home frequently. chronic diastolic heart failure, diabetes, hyperlipidemia, hypertension, hypertensive cardiovascular disease, end-stage renal disease on hemodialysis Monday and Monday, aortic stenosis status post TAVR in 2018, with h/o multiple urinary tract infection treated by Dr Borrego who also did cystoscopy on 05/22 done for recurrent UIT followed by bactrim for klebsiella and ecoli uti on 06/07/2020 Patient presents to emergency room secondary to sacral pain, was being transported from dialysis back to [facility] on the [place] [facility] [employer] wheelchair van, when patient complained of worsening sacral pain, she had recently fracture d distal left femur 10/23/2020 at [facility] and was trasnsfered to [facility] yesterday 11/01 she ws there only less than 12 hrs , which is worse, there is some concern regarding worsening of the sacral wound, and patient is wheelchair bound it was present prior to her admission at [facility]. This wound has been present over the past one month, there is no fever no purulent drainage, however pain is uncontrolled. Patient was subsequently admitted, has been seen by Dr. Obrien in the past for E. coli UTI and bacteremia, 09/17/2020, patient has CT pelvis without contrast, showing subcutaneous edema over the posterior lower pelvis, and sacrum is slightly increased compared to old examination, no evidence of osteomyelitis, patient was admitted for sacral cellulitis, with sacral decubitus ulcer, with consultation to Dr. Obrien, IV cefepime blood cultures and sacral wound ulcers to be sent for culture , she does not void as much nearly anuric, not using any depends, appetite low, spoke with daughter wants bipap for use while here, cpap is at [facility]. wants marinol for appetite, and protein s upplementation, 11/02: Patient's at that site, pain is slightly better, however she is much more comfortable, overlay mattress was provided hydrocodone when necessary for pain, appetite is much better, no fever no chills, blood sugars are between 185-287, hemoglobin A1c 5.7 creatinine at 3.8 BUN of 49, TSH normal at 0.9 Dr. Easley thinks that no systemic antibiotic therapy is needed for now, on no cold [place] for wound care, no wound VAC recommendation at this time, awaiting cultures. Dialysis, Monday schedule, we will discontinue Seprafilm per recommendations from ID unable to provide urinalysis at this time patient is anuric 11/03: Patient has been seen by Dr. Obrien with recommendations for general surgery consult for possible debridement of the stage III pressure ulcer. Consult with Dr. Pierson has been added. Patient has been seen by wound team with recommendations for Santyl to be changed daily and recommended weekly wound debridements at the skilled nursing or follow up in the wound healing Center as an outpatient. Nephrology is following and continued on hemodialysis on Monday schedule and is scheduled for hemodialysis today. Patient has been afebrile, heart rate 74, blood pressure 112/62, pulse ox 99% on 2 L nasal cannula. Blood sugars are running between 97 and 187. Wound culture is positive for Rosario to the buttocks. Anaerobic culture is in progress. 11/04: She is scheduled for wound debridement today with Dr. Pierson. She has been afebrile, heart rate 83, blood pressure 151/69. Patient is on 2 L nasal cannula she was on BiPAP during the night. Patient is quite sleepy this morning her morphine will be decreased to 2 mg IV. Capillary blood glucose running between 192 and 239. Repeat blood work ordered for tomorrow. Patient is followed by Dr. Joslyn Rodriguez, not currently on IV antibiotics. REVIEW OF SYSTEMS Constitutional: Reports as per HPI, Reports chills, Denies anorexia, Denies chronic headaches, Denies chronic pain, Denies daytime sleepiness, Denies fatigue, Denies fever, Denies lethargy, Denies malaise, Denies night sweats, Denies poor appetite, Denies sweats, Denies weakness, Denies weight gain, Denies weight loss Ears, nose, mouth and throat: Reports as per HPI Cardiovascular: Reports as per HPI, Reports dyspnea on exertion, Reports edema Respiratory: Reports as per HPI, Denies cough Gastrointestinal: Reports as per HPI, Reports constipation, Denies excessive gas, Denies heartburn, Denies indigestion, Denies vomiting Genitourinary: Reports as per HPI, Reports pelvic pain, Reports stress incontinence, Denies genital sores Menstruation: Reports as per HPI Musculoskeletal: Reports as per HPI Integumentary: Reports as per HPI, Reports wounds Neurological: Reports as per HPI Psychiatric: Reports as per HPI, Reports anxiety attacks, Denies anhedonia, Denies anxiety, Denies change in appetite, Denies change in sleep habits, Denies confusion, Denies depression, Denies difficulty concentrating, Denies disorientation, Denies hallucinations, Denies hopelessness, Denies hypersomnia, Denies insomnia, Denies irritability, Denies memory loss, Denies mood swings, Denies paranoia, Denies sadness/tearfulness, Denies sleep disturbances, Denies suicidal ideation Endocrine: Reports fatigue, blood sugar slightly high PHYSICAL EXAMINATION Gen: This is a 75 year old obese female. Patient is resting in bed and appears to be comfortable at rest. HEENT: Head is atraumatic, normocephalic. Pupils equal, round. Sclerae is anicteric. NECK: Supple. No JVD. No lymphadenopathy. No thyromegaly. LUNGS: Clear to auscultation. No wheezes or rhonchi. No intercostal retraction s. HEART: Regular rate and rhythm. Systolic ejection murmur at the base. ABDOMEN: Soft. Bowel sounds are present. No masses. No tenderness. SKIN: Stage III decubitus ulcer to coccyx. EXTREMITIES: No pedal edema. No calf tenderness. NEUROLOGICAL: Patient is awake, alert and oriented x3. Cranial nerves 2 through 12 are grossly intact. ASSESSMENT AND PLAN 1. Sacral decubitus ulcer with cellulitis, stage III, patient's wheelchair bound, most likely pressure ulcer, consult with Dr. Obrien, off antibiotics, consult with Gen. surgery added for debridement, scheduled for today. Wound care team consult appreciated. Continue Santyl daily. 2. History of Recurrent UTI, none currently, status post cystoscopy, by Dr. Borrego, previous culture positive for E. coli and klebsiella during last cultureson chronic prophylactic antibiotics including nitrofurantoin and Lexx amine 3. Recent fracture left distal femur, orif on 10/23/2020, [facility] 4. Oliguria secondary to end-stage kidney disease, still making 400 mL per day, consult with nephrology, on hemodialysis Monday and Monday 5. Diabetes mellitus type 2, insulin requiring. Continue insulin sliding scale. Continue Lantus 20 units twice a day 6. End-stage renal disease on hemodialysis Monday and Monday, consult Dr. Manrique 7. Chronic diastolic heart failure. Continue hemodialysis. Lasix, metolazone on hold. Continue Toprol-XL. 8. History of aortic stenosis status post TAVR. 9. Hypertension cardiovascular disease. Continue amiodarone 100 mg daily and metoprolol. 10. Paroxysmal atrial fibrillation. Continue amiodarone 100 mg once daily and metoprolol a history of GI bleed no past several years ago, not on any anticoagulation due to increased risk of fall and GI bleeding 11. History of myocardial infarction and coronary artery disease status post LAD stent in July 2017 and left circumflex in August 2017. Continue Toprol-XL 50 mg once daily. 12. GERD continue Protonix. 13. History of hyperlipidemia continue Zetia 10mg daily 14. Obstructive sleep apnea, on CPAP machine at night, along with O2 supplementation. 15. Diabetic peripheral neuropathy continue gabapentin 300 mg twice daily. 17. Recurrent depression. Continue Cymbalta 60 mg orally once daily DVT prophylaxis. Heparin subcu every 12 GI prophylaxis continue Protonix. DISCHARGE PLAN Return to [facility] Impression and plan of care have been directed as dictated by the signing physician. Jessenia Gonzalez nurse practitioner acting as scribe for signing chris caldwell. Objective - Vital Signs Vital signs: Vital Signs Temp 98.2 F 11/04/20 05:15 Pulse 83 11/04/20 05:15 Resp 18 11/04/20 05:15 BP 151/69 11/04/20 05:15 Pulse Ox 100 11/04/20 05:15 Intake & Output 11/03/20 11/04/20 11/04/20 18:59 06:59 18:59 Intake Total 120 240 Output Total 1999 0 Balance -1880 240 Intake: Intake, IV Titration 240 Amount Sodium Chloride 0.9% 1, 240 000 ml @ 20 mls/hr IV . Q24H [facility] Rx#:[id number] Oral 120 Output: Urine 0 0 Hemodialysis 1999 Other: Voiding Method Diaper Diaper # Voids 0 - Labs CBC & Chem 7: 11/02/20 05:04 11/02/20 05:04 Labs: Abnormal Lab Results - Last 24 Hours (Table) 11/03/20 11/03/20 11/03/20 Range/Units 11:49 17:37 19:51 POC Glucose (mg/dL) 129 H 210 H 239 H (75-99) mg/dL 11/04/20 Range/Units 07:41 POC Glucose (mg/dL) 192 H (75-99) mg/dL Microbiology - Last 24 Hours (Table) 11/02/20 05:55 Gram Stain - Final Buttock Wound Culture - Final Rosario albicans 10/31/20 16:01 Blood Culture - Preliminary Blood No Growth after 72 hours 10/31/20 16:01 Blood Culture - Preliminary Blood No Growth after 72 hours
[2020-11-04] MEDS: LACTATED RINGERS 1,000 ML IV SCH (15:37)
--- NOTE | 2020-11-04 16:24 | P.OP ---
Date of Procedure: 11/04/20 Preoperative Diagnosis: Sacral decubitus ulcer Postoperative Diagnosis: Sacral decubitus ulcer Procedure(s) Performed: Excisional debridement sacral decubitus ulcer Anesthesia: CAMELIA Surgeon: Perla Pierson Pathology: other Condition: stable Disposition: PACU Operative Findings: Total area of first, second and third degree ulcerations are 12 x 13 cm. Third degree decubitus is 5.5 x 8 cm. It's about 2 cm deep. It undermines superiorly and to the right a centimeter. Description of Procedure: The patient's taken the operative suite where he is prepped and draped in the usual sterile manner under general anesthetic. She has areas of first, second and third degree decub and subcutaneous tissues are tissue. There is a small amount of muscle on the right gluteus which is sharply debrided. Other areas of secondary area thoroughly examined and the underlying skin appears viable. There was good blanching. The wound was cleansed. A Aquacel Ag type dressing was placed along with a ABD pad. She's taken to the recovery room in satisfactory condition. According to or personnel, all counts were correct.
[2020-11-04] MEDS ORDERED: MORPHINE SULFATE 4 MG/ML SYRINGE IVP ONE (16:37)
[2020-11-04 16:50] LABS: Glucose,Whole Blood 145 mg/dL (75-99)
--- NOTE | 2020-11-04 17:42 | PN ---
PROGRESS NOTE DATE OF SERVICE: 11/04/2020 REASON FOR FOLLOWUP: Sacral pressure ulcer. INTERVAL HISTORY: The patient is afebrile. The patient is breathing comfortably. The patient remains to be sleepy, lethargic. She is unable to provide any history. No vomiting or diarrhea has been reported by nursing staff. The patient is scheduled for debridement of the wound this afternoon. PHYSICAL EXAMINATION: Her blood pressure is 153/68 with a pulse of 83, temperature 96.3. She is 100% on 2 L nasal cannula. General description is an elderly female lying in bed in no distress. Respiratory system: Unlabored breathing, clear to auscultation anteriorly. Heart S1, S2. Regular rate and rhythm. Abdomen soft, no tenderness. LABS: No new labs have been obtained today. DIAGNOSTIC IMPRESSION AND PLAN: Patient with stage III sacral pressure ulcer. Waiting for surgical debridement and possible deep culture if there is any evidence of infection and antibiotic will be adjusted further if needed. Continue local wound care as ordered. Continue supportive care. MMODL / IJN: [id number] /
[2020-11-04 20:18] LABS: Glucose,Whole Blood 213 mg/dL (75-99)
[2020-11-05 06:59] LABS: Glucose,Whole Blood 160 mg/dL (75-99)
[2020-11-05] MEDS: HEPARIN SODIUM,PORCINE/PF 5,000 UNIT/0.5 ML SYRINGE SQ SCH ×2 (08:07→20:21)
[2020-11-05] MEDS: INSULIN DETEMIR (LEVEMIR) 100 UNIT/ML SYR SQ SCH ×2 (08:07→20:22)
[2020-11-05] MEDS: AMIODARONE 100 MG TAB PO SCH (08:07)
[2020-11-05] MEDS: ASPIRIN 81 MG PO SCH (08:07)
[2020-11-05] MEDS: INSULIN ASPART (NovoLOG) 100 UNIT/ML VIAL SQ SCH ×4 (08:07→20:21)
[2020-11-05] MEDS: SEVELAMER 800 MG TAB PO SCH (08:07)
[2020-11-05] MEDS: DULoxetine HCL 60 MG CAPSULE.DR PO SCH (08:07)
[2020-11-05] MEDS: EZETIMIBE 10 MG TAB PO SCH (08:07)
[2020-11-05] MEDS: METOPROLOL SUCCINATE (ER) 50 MG TAB.ER.24H PO SCH (08:07)
[2020-11-05] MEDS: COLLAGENASE 250 UNIT/GM OINTMENT 30 GM TUBE TOPICAL SCH (08:08)
[2020-11-05] MEDS: GABAPENTIN 300 MG CAP PO SCH ×2 (08:08→20:20)
[2020-11-05] MEDS: PANTOPRAZOLE 40 MG TABLET PO SCH (08:08)
[2020-11-05] MEDS: traMADol 50 MG TAB PO PRN ×2 (08:27→15:48)
[2020-11-05] MEDS: LACTATED RINGERS 1,000 ML IV SCH (08:32)
--- NOTE | 2020-11-05 09:36 | P.PN ---
Subjective Patient is seen in follow-up for end-stage renal disease. She is maintained on hemodialysis on Monday schedule. Blood pressure stable. Currently on nasal cannula. Being treated for stage III pressure ulcer. No active complaints. Patient is not a reliable historian but is more awake and alert today. Has been working with physical therapy. Vital signs are stable. General: The patient appeared well nourished and normally developed. HEENT: On BiPAP. LUNGS: Breath sounds decreased. HEART: Rate and Rhythm are regular. ABDOMEN: Soft, obese. EXTREMITITES: No edema. Objective - Vital Signs Vital signs: Vital Signs Temp 98.6 F 11/05/20 05:00 Pulse 80 11/05/20 05:00 Resp 17 11/05/20 05:00 BP 107/55 11/05/20 05:00 Pulse Ox 98 11/05/20 05:00 Intake & Output 11/04/20 11/05/20 11/05/20 18:59 06:59 18:59 Intake Total 835 0 360 Output Total 10 Balance 825 0 360 Weight 77.111 kg Intake: IV 675 Intake, IV Titration 160 Amount Sodium Chloride 0.9% 1, 160 000 ml @ 20 mls/hr IV . Q24H [facility] Rx#:[id number] Oral 0 360 Output: Estimated Blood Loss 10 Other: Voiding Method Diaper Diaper # Voids 0 0 - Labs CBC & Chem 7: 11/02/20 05:04 11/02/20 05:04 Labs: Abnormal Lab Results - Last 24 Hours (Table) 11/04/20 11/04/20 11/04/20 Range/Units 12:26 14:33 16:48 POC Glucose (mg/dL) 155 H 139 H 145 H (75-99) mg/dL 11/04/20 11/05/20 Range/Units 20:02 06:57 POC Glucose (mg/dL) 213 H 160 H (75-99) mg/dL Microbiology - Last 24 Hours (Table) 11/04/20 16:00 Gram Stain - Preliminary Buttock Tissue Culture - Preliminary 11/04/20 16:00 Gram Stain - Preliminary Buttock Wound Culture - Preliminary 11/04/20 16:00 Gram Stain - Preliminary Buttock Wound Culture - Preliminary 11/04/20 16:00 Fungal Culture - Preliminary Buttock 11/04/20 16:00 Anaerobic Culture - Preliminary Buttock 11/04/20 16:00 Anaerobic Culture - Preliminary Buttock 11/04/20 16:00 Fungal Culture - Preliminary Buttock 11/04/20 16:00 Fungal Culture - Preliminary Buttock 10/31/20 16:01 Blood Culture - Preliminary Blood No Growth after 96 hours 10/31/20 16:01 Blood Culture - Preliminary Blood No Growth after 96 hours 11/02/20 05:55 Gram Stain - Final Buttock Wound Culture - Final Rosario albicans Assessment and Plan Plan: Assessment: 1. End-stage renal disease maintained on hemodialysis on Monday schedule. 2. Sacral wound s/p antibiotics. Infectious disease following. 3. Recent UTI and E. coli bacteremia. 4. Anemia of chronic kidney disease maintained on Aranesp. 5. Diabetes mellitus. 6. 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 Plan: Hemodialysis today.
--- NOTE | 2020-11-05 10:05 | P.PN ---
Subjective Progress Note Date: 11/05/20 this 75-year-old patient being seen by the wound care center on [address] for nonhealing pressure ulceration to the coccyx. Patient recently had a surgical debridement and Santyl to the site previously for a stage II pressure ulcer. At this time the ulceration measures approximately 10 x 8 x 0.2 with significant amount of slough and nonviable tissue noted to the wound bed and minimal granulation. The wound edges does show some redness.. Wound edges are attached to the wound base is no tone undermining noted.patient's past medical history significant for atrial fibrillation, coronary artery disease, heart failure, diabetes, dialysis, GERD, GI bleed, hyperterlipidemia, sleep apnea. Patient is wheelchair bound. 11/05/2020: underwent a surgical debridement with Dr. Pierson. The ulceration is a cluster of 3 ulcerations with deep his ulceration being 2 cm. Granulation throughout the wound bed with Slough and nonviable tissue. he total size of the ulceration measures approximately 12 x 13 x 2 cm. Review Of Systems: Constitutional: No fever, no chills, no night sweats. No weight change. No weakness, fatigue or lethargy. No daytime sleepiness. Integumentary:reports wounds, no lesions. No rash or pruritus. No unusual bruising. No change in hair or nails. Physical exam: General Appearance: Alert, cooperative, no distress, appears stated age. Skin: See HPI all other Skin color, texture, tugor normal, no rashes or lesions. Neurologic: Alert oriented x3 Assessment: 1. Stage III pressure ulcer sacrum 2. Diabetes with skin ulceration 3. Wheelchair bound Plan: 1. apply negative pressure wound VAC with black foam and 125 mmHg continuous suction. Change Monday. Continue with wound dressings upon return to [facility]. Patient would benefit from weekly wound debridements. We will be happy to see her in the wound care center upon discharge. Utilize a Roho cg in a wheelchair. Utilize a air-filled overlay mattress. Turn patient every 2 hours. Thank you for the consultation any questions please contact the wound care center DNP note has been reviewed and discussed with Dr. Nelson and the impression and plan of care has been directed as dictated. Objective - Vital Signs Vital signs: Vital Signs Temp 98.6 F 11/05/20 05:00 Pulse 80 07/08/21 05:00 Resp 17 11/05/20 05:00 BP 107/55 11/05/20 05:00 Pulse Ox 98 11/05/20 05:00 Intake & Output 11/04/20 11/05/20 11/05/20 18:59 06:59 18:59 Intake Total 835 0 360 Output Total 10 Balance 825 0 360 Weight 77.111 kg Intake: IV 675 Intake, IV Titration 160 Amount Sodium Chloride 0.9% 1, 160 000 ml @ 20 mls/hr IV . Q24H [facility] Rx#:[id number] Oral 0 360 Output: Estimated Blood Loss 10 Other: Voiding Method Diaper Diaper # Voids 0 0 - Labs CBC & Chem 7: 11/02/20 05:04 11/02/20 05:04 Labs: Abnormal Lab Results - Last 24 Hours (Table) 11/04/20 11/04/20 11/04/20 Range/Units 12:26 14:33 16:48 POC Glucose (mg/dL) 155 H 139 H 145 H (75-99) mg/dL 11/04/20 11/05/20 Range/Units 20:02 06:57 POC Glucose (mg/dL) 213 H 160 H (75-99) mg/dL Microbiology - Last 24 Hours (Table) 11/04/20 16:00 Gram Stain - Preliminary Buttock Tissue Culture - Preliminary 11/04/20 16:00 Gram Stain - Preliminary Buttock Wound Culture - Preliminary 11/04/20 16:00 Gram Stain - Preliminary Buttock Wound Culture - Preliminary 11/04/20 16:00 Fungal Culture - Preliminary Buttock 11/04/20 16:00 Anaerobic Culture - Preliminary Buttock 11/04/20 16:00 Anaerobic Culture - Preliminary Buttock 11/04/20 16:00 Fungal Culture - Preliminary Buttock 11/04/20 16:00 Fungal Culture - Preliminary Buttock 10/31/20 16:01 Blood Culture - Preliminary Blood No Growth after 96 hours 10/31/20 16:01 Blood Culture - Preliminary Blood No Growth after 96 hours 11/02/20 05:55 Gram Stain - Final Buttock Wound Culture - Final Rosario albicans Assessment and Plan (1) Decubitus ulcer of sacral region, stage 3 Current Visit: Yes Status: Acute Code(s): L89.153 - PRESSURE ULCER OF SACRAL REGION, STAGE 3 SNOMED Code(s): 594573837 (2) Diabetes with skin ulcer Current Visit: Yes Status: Acute Code(s): E11.622 - TYPE 2 DIABETES MELLITUS WITH OTHER SKIN ULCER; L98.499 - NON-PRESSURE CHRONIC ULCER OF SKIN OF SITES W UNSP SEVERITY SNOMED Code(s): 71120573
[2020-11-05 11:28] LABS: Glucose,Whole Blood 155 mg/dL (75-99)
--- NOTE | 2020-11-05 11:55 | P.PN ---
Subjective HISTORY OF PRESENT ILLNESS This is a 74-year-old female patient of Dr. Farias with past medical history of proximal atrial fibrillation, coronary artery disease status post [place], denies any history of COPD or asthma. Uses CPAP at home frequently. chronic diastolic heart failure, diabetes, hyperlipidemia, hypertension, hypertensive cardiovascular disease, end-stage renal disease on hemodialysis Monday and Monday, aortic stenosis status post TAVR in 2018, with h/o multiple urinary tract infection treated by Dr Borrego who also did cystoscopy on 05/22 done for recurrent UIT followed by bactrim for klebsiella and ecoli uti on 06/07/2020 Patient presents to emergency room secondary to sacral pain, was being tra nsported from dialysis back to [facility] [place] by [employer] wheelchair van, when patient complained of worsening sacral pain, she had recently fractured distal left femur 10/23/[facility] at [facility] and was trasnsfered to [facility] yesterday 11/01 she ws there only less than 12 hrs , which is worse, there is some concern regarding worsening of the sacral wound, and patient is wheelchair bound it was present prior to her admission at [facility]. This wound has been present over the past one month, there is no fever no purulent drainage, however pain is uncontrolled. Patient was subsequently admitted, has been seen by Dr. Obrien in the past for E. coli UTI and bacteremia, 09/17/2020, patient has CT pelvis without contrast, showing subcutaneous edema over the posterior lower pelvis, and sacrum is slightly increased compared to old examination, no evidence of osteomyelitis, patient was admitted for sacral cellulitis, with sacral decubitus ulcer, with consultation to Dr. Obrien, IV cefepime blood cultures and sacral wound ulcers to be sent for culture , she does not void as much nearly anuric, not using any depends, appetite low, spoke with daughter wants bipap for use while here, cpap is at [facility]. wants marinol for appetite, and protein supplementation, 11/02: Patient's at that site, pain is slightly better, however she is much more comfortable, overlay mattress was provided hydrocodone when necessary for pain, appetite is much better, no fever no chills, blood sugars are between 185-287, hemoglobin A1c 5.7 creatinine at 3.8 BUN of 49, TSH normal at 0.9 Dr. Easley thinks that no systemic antibiotic therapy is needed for now, on no cold [place] for wound care, no wound VAC recommendation at this time, awaiting cultures. Dialysis, Monday schedule, we will discontinue Seprafilm per recommendations from ID unable to provide urinalysis at this time patient is anuric 11/03: Patient has been seen by Dr. Obrien with recommendations for general surgery consult for possible debridement of the stage III pressure ulcer. Consult with Dr. Pierson has been added. Patient has been seen by wound team with recommendations for Santyl to be changed daily and [facility] or follow [facility] in the wound healing Center as an outpatient. Nephrology is following and continued on hemodialysis on Monday schedule and is scheduled for hemodialysis today. Patient has been afebrile, heart rate 74, blood pressure 112/62, pulse ox 99% on 2 L nasal cannula. Blood sugars are running between 97 and 187. Wound culture is positive for Rosario to the buttocks. Anaerobic culture is in progress. 11/04: She is scheduled for wound debridement today with Dr. Pierson. She has been afebrile, heart rate 83, blood pressure 151/69. Patient is on 2 L nasal cannula she was on BiPAP during the night. Patient is quite sleepy this morning her morphine will be decreased to 2 mg IV. Capillary blood glucose running between 192 and 239. Repeat blood work ordered for tomorrow. Patient is followed by Dr. Obrien, not currently on IV antibiotics. 11/05: Patient is undergoing hemodialysis today. Yesterday, patient underwent excisional debridement of the sacral decubitus ulcer by Dr. Pierson. Patient is followed by Dr. Obrien and currently off antibiotics. Patient is seen and followed by the wound care center with plan for wound VAC. Patient has been afebrile, heart rate 80, blood pressure 107/55, pulse ox 90% on 2 L nasal cannula. Anticipate discharge back to [facility] tomorrow. REVIEW OF SYSTEMS Constitutional: Reports as per HPI, Reports chills, Denies anorexia, Denies chronic headaches, Denies chronic pain, Denies daytime sleepiness, Denies fatigue, Denies fever, Denies lethargy, Denies malaise, Denies night sweats, Denies poor appetite, Denies sweats, Denies weakness, Denies weight gain, Denies weight loss Ears, nose, mouth and throat: Reports as per HPI Cardiovascular: Reports as per HPI, Reports dyspnea on exertion, Reports edema Respiratory: Reports as per HPI, Denies cough Gastrointestinal: Reports as per HPI, Reports constipation, Denies excessive gas, Denies heartburn, Denies indigestion, Denies vomiting Genitourinary: Reports as per HPI, Reports pelvic pain, Reports stress incontinence, Denies genital sores Musculoskeletal: Reports as per HPI Integumentary: Reports as per HPI, Reports wounds Neurological: Reports as per HPI Psychiatric: Reports as per HPI, Reports anxiety attacks, Denies anhedonia, Denies anxiety, Denies change in appetite, Denies change in sleep habits, Denies confusion, Denies depression, Denies difficulty concentrating, Denies disorientation, Denies hallucinations, Denies hopelessness, Denies hypersomnia, Denies insomnia, Denies irritability, Denies memory loss, Denies mood swings, Denies paranoia, Denies sadness/tearfulness, Denies sleep disturbances, Denies suicidal ideation Endocrine: Reports fatigue, blood sugar slightly high PHYSICAL EXAMINATION Gen: This is a 75 year old obese female. Patient is resting in bed and appears to be comfortable at rest. Patient is undergoing hemodialysis. HEENT: Head is atraumatic, normocephalic. Pupils equal, round. Sclerae is anicteric. NECK: Supple. No JVD. No lymphadenopathy. No thyromegaly. LUNGS: Clear to auscultation. No wheezes or rhonchi. No intercostal retractions. HEART: Regular rate and rhythm. Systolic ejection murmur at the base. ABDOMEN: Soft. Bowel sounds are present. No masses. No tenderness. SKIN: Stage III decubitus ulcer to coccyx. EXTREMITIES: No pedal edema. No calf tenderness. NEUROLOGICAL: Patient is awake, alert and oriented x3. Cranial nerves 2 through 12 are grossly intact. ASSESSMENT AND PLAN 1. Sacral decubitus ulcer with cellulitis, stage III, patient's wheelchair bound, consult with Dr. Obrien, off antibiotics, consult with Gen. surgery status post excisional debridement. Wound care team consult appreciated and wound VAC ordered. 2. History of Recurrent UTI, none currently, status post cystoscopy, by Dr. Borrego, previous culture positive for E. coli and klebsiella during last cultureson chronic prophylactic antibiotics including nitrofurantoin and Mandelamine 3. Recent fracture left distal femur, orif on 10/23/2020, [facility] 4. Oliguria secondary to end-stage kidney disease, still making 400 mL per day, consult with nephrology, on hemodialysis Monday and Monday 5. Diabetes mellitus type 2, insulin requiring. Continue insulin sliding scale. Continue Lantus 20 units twice a day 6. End-stage renal disease on hemodialysis Monday and Monday, consult Dr. Manrique 7. Chronic diastolic heart failure. Continue hemodialysis. Lasix, metolazone on hold. Continue Toprol-XL. 8. History of aortic stenosis status post TAVR. 9. Hypertension cardiovascular disease. Continue amiodarone 100 mg daily and metoprolol. 10. Paroxysmal atrial fibrillation. Continue amiodarone 100 mg once daily and metoprolol a history of GI bleed no past several years ago, not on any anticoag ulation due to increased risk of fall and GI bleeding 11. History of myocardial infarction and coronary artery disease status post LAD stent in July 2017 and left circumflex in August 2017. Continue Toprol-XL 50 mg once daily. 12. GERD continue Protonix. 13. History of hyperlipidemia continue Zetia 10mg daily 14. Obstructive sleep apnea, on CPAP machine at night, along with O2 supplementation. 15. Diabetic peripheral neuropathy continue gabapentin 300 mg twice daily. 17. Recurrent depression. Continue Cymbalta 60 mg orally once daily DVT prophylaxis. Heparin subcu every 12 GI prophylaxis continue Protonix. DISCHARGE PLAN Return to [facility] on Monday Impression and plan of care have been directed as dictated by the signing physician. Jessenia Gonzalez nurse practitioner acting as scribe for signing physician. Objective - Vital Signs Vital signs: Vital Signs Temp 98.6 F 11/05/20 05:00 Pulse 80 11/05/20 05:00 Resp 17 11/05/20 05:00 BP 107/55 11/05/20 05:00 Pulse Ox 98 11/05/20 05:00 Intake & Output 11/04/20 11/05/20 11/05/20 18:59 06:59 18:59 Intake Total 835 0 360 Output Total 10 Balance 825 0 360 Weight 77.111 kg Intake: IV 675 Intake, IV Titration 160 Amount Sodium Chloride 0.9% 1, 160 000 ml @ 20 mls/hr IV . Q24H [facility] Rx#:[id number] Oral 0 360 Output: Estimated Blood Loss 10 Other: Voiding Method Diaper Diaper # Voids 0 0 - Labs CBC & Chem 7: 11/02/20 05:04 11/02/20 05:04 Labs: Abnormal Lab Results - Last 24 Hours (Table) 11/04/20 11/04/20 11/04/20 Range/Units 12:26 14:33 16:48 POC Glucose (mg/dL) 155 H 139 H 145 H (75-99) mg/dL 11/04/20 11/05/20 11/05/20 Range/Units 20:02 06:57 11:26 POC Glucose (mg/dL) 213 H 160 H 155 H (75-99) mg/dL Microbiology - Last 24 Hours (Table) 11/04/20 16:00 Gram Stain - Preliminary Buttock Tissue Culture - Preliminary 11/04/20 16:00 Gram Stain - Preliminary Buttock Wound Culture - Preliminary 11/04/20 16:00 Gram Stain - Preliminary Buttock Wound Culture - Preliminary 11/04/20 16:00 Fungal Culture - Preliminary Buttock 11/04/20 16:00 Anaerobic Culture - Preliminary Buttock 11/04/20 16:00 Anaerobic Culture - Preliminary Buttock 11/04/20 16:00 Fungal Culture - Preliminary Buttock 11/04/20 16:00 Fungal Culture - Preliminary Buttock 10/31/20 16:01 Blood Culture - Preliminary Blood No Growth after 96 hours 10/31/20 16:01 Blood Culture - Preliminary Blood No Growth after 96 hours 11/02/20 05:55 Gram Stain - Final Buttock Wound Culture - Final Rosario albicans
[2020-11-05] MEDS: SODIUM CHLORIDE 0.9% 1,000 ML IV SCH (13:49)
[2020-11-05] MEDS: MORPHINE SULFATE 2 MG/ML SYRINGE IVP PRN (14:40)
--- NOTE | 2020-11-05 16:58 | PN ---
PROGRESS NOTE DATE OF SERVICE: 11/05/2020 REASON FOR FOLLOWUP: Sacral pressure ulcer. INTERVAL HISTORY: Patient is afebrile. The patient is status post extensive debridement of the sacral pressure ulcer yesterday. Patient tolerated the procedure. No mention of any purulent drainage at the time of dressing. Culture has been obtained which is currently pending. The patient is slightly lethargic, sleepy. Unable to provide any history. No vomiting or diarrhea reported by the nursing staff. PHYSICAL EXAMINATION: On examination, blood pressure 138/62 with a pulse of 81, temperature 98.4. General description is an elderly female lying in no distress. Respiratory system: Unlabored breathing. Clear to auscultation anteriorly. Heart S1, S2. Regular rate and rhythm. Abdomen: Soft, no tenderness. LABS: No new labs have been obtained today. DIAGNOSTIC IMPRESSION AND PLAN: Patient with stage III sacral pressure ulcer status post surgical debridement. No mention of any purulence. Cultures are pending. Local care to continue as ordered and monitor clinical course closely. Continue supportive care. MMODL / IJN: [id number] /
[2020-11-05 17:06] LABS: Glucose,Whole Blood 243 mg/dL (75-99)
[2020-11-05 18:41] LABS: Albumin/Globulin Ratio 1.07 (1.60-3.17); Anion Gap 11.4 mmol/L (4.00-12.00); BUN/Creat Ratio 9.77 Ratio (12.00-20.00); Carbon Dioxide 22.6 mmol/L (21.6-31.8); Globulin 2.8 g/dL (1.6-3.3); Non-African American GFR(CKD) 9.5 (60.0-200.0); Potassium 4.8 mmol/L (3.5-5.5); Total Bilirubin 0.5 mg/dL (0.2-1.2); Total Protein 5.8 g/dL (6.2-8.2)
[2020-11-05 19:59] LABS: Glucose,Whole Blood 198 mg/dL (75-99)
[2020-11-06 07:28] LABS: Glucose,Whole Blood 99 mg/dL (75-99)
[2020-11-06] MEDS: EZETIMIBE 10 MG TAB PO SCH (09:14)
[2020-11-06] MEDS: HEPARIN SODIUM,PORCINE/PF 5,000 UNIT/0.5 ML SYRINGE SQ SCH ×2 (09:14→20:36)
[2020-11-06] MEDS: INSULIN ASPART (NovoLOG) 100 UNIT/ML VIAL SQ SCH ×4 (09:15→20:37)
[2020-11-06] MEDS: ASPIRIN 81 MG PO SCH (09:15)
[2020-11-06] MEDS: METOPROLOL SUCCINATE (ER) 50 MG TAB.ER.24H PO SCH (09:15)
[2020-11-06] MEDS: AMIODARONE 100 MG TAB PO SCH (09:15)
[2020-11-06] MEDS: DULoxetine HCL 60 MG CAPSULE.DR PO SCH (09:15)
[2020-11-06] MEDS: SEVELAMER 800 MG TAB PO SCH (09:15)
[2020-11-06] MEDS: GABAPENTIN 300 MG CAP PO SCH ×2 (09:15→20:37)
[2020-11-06] MEDS: PANTOPRAZOLE 40 MG TABLET PO SCH (09:15)
[2020-11-06] MEDS: LACTATED RINGERS 1,000 ML IV SCH (09:16)
[2020-11-06] MEDS: COLLAGENASE 250 UNIT/GM OINTMENT 30 GM TUBE TOPICAL SCH (09:16)
--- NOTE | 2020-11-06 10:27 | P.DS ---
Providers Date of admission: 10/31/20 17:13 Expected date of discharge: 11/06/20 Attending physician: Mary Colvin Consults: 10/31/20 17:13 Consult Physician Routine Consulting Provider: Margarette Obrien Consult Reason/Comments: sacral wound Do you want consulting provider notified?: Yes 11/01/20 15:24 Consult Physician Routine Consulting Provider: Tc Manrique Consult Reason/Comments: hemodialyis esrd Do you want consulting provider notified?: Yes 11/03/20 09:16 Consult Physician Routine Consulting Provider: Perla Pierson Consult Reason/Comments: debridement sacral wound Do you want consulting provider notified?: Yes Primary care physician: Stevenson Farias [facility] Course: HISTORY OF PRESENT ILLNESS This is a 74-year-old female patient of Dr. Farias with past medical history of proximal atrial fibrillation, coronary artery disease status post [place], denies any history of COPD or asthma. Uses CPAP at home frequently. chronic diastolic heart failure, diabetes, hyperlipidemia, hypertension, hypertensive cardiovascular disease, end-stage renal disease on hemodialysis Monday and Monday, aortic stenosis status post TAVR in 2017, with h/o multiple urinary tract infection treated by Dr Borrego who also did cystoscopy on 05/22 done for recurrent UIT followed by bactrim for klebsiella and ecoli uti on 06/07/2020 Patient presents to emergency room secondary to sacral pain, was being [place] dialysis [place] [facility] [place] [employer] wheelchair van, when patient complained of worsening sacral pain, she had recently fractured distal left femur 10/23/2020 at [facility] and was trasnsfered to [facility] yesterday 11/01 she ws there only less than 12 hrs , which is worse, there is some concern regarding worsening of the sacral wound, and patient is wheelchair bound it was present prior to her admission at [facility]. This wound has been present over the past one month, there is no fever no purulent drainage, however pain is uncontrolled. Patient was subsequently admitted, has been seen by Dr. Obrien in the past for E. coli UTI and bacteremia, 09/17/2020, patient has CT pelvis without contrast, showing subcutaneous edema over the posterior lower pelvis, and sacrum is slightly increased compared to old examination, no evidence of osteomyelitis, patient was admitted for sacral cellulitis, with sacral decubitus ulcer, with consultation to Dr. Obrien, IV cefepime blood cultures and sacral wound ulcers to be sent for culture , she does not void as much nearly anuric, not using any depends, appetite low, spoke with daughter wants bipap for use while here, cpap is at [facility]. wants marinol for appetite, and protein supplementation, 11/02: Patient's at that site, pain is slightly better, however she is much more comfortable, overlay mattress was provided hydrocodone when necessary for pain, appetite is much better, no fever no chills, blood sugars are between 185-287, hemoglobin A1c 5.7 creatinine at 3.8 BUN of 49, TSH normal at 0.9 Dr. Easley thinks that no systemic antibiotic therapy is needed for now, on no cold [place] for wound care, no wound VAC recommendation at this time, awaiting cultures. Dialysis, Monday schedule, we will discontinue Seprafilm per recommendations from ID unable to provide urinalysis at this time patient is anuric 11/03: Patient has been seen by Dr. Obrien with recommendations for general surgery consult for possible debridement of the stage III pressure ulcer. Consult with Dr. Pierson has been added. Patient has been seen by wound team with recommendations for Santyl to be changed daily and recommended weekly wound debridements at the [facility] care or follow up in the wound healing Center as an outpatient. Nephrology is following and continued on hemodialysis on Monday schedule and is scheduled for hemodialysis today. Patient has been afebrile, heart rate 74, blood pressure 112/62, pulse ox 99% on 2 L nasal cannula. Blood sugars are running between 97 and 187. Wound culture is positive for Rosario to the buttocks. Anaerobic culture is in progress. 11/04: She is scheduled for wound debridement today with Dr. Pierson. She has been afebrile, heart rate 83, blood pressure 151/69. Patient is on 2 L nasal cannula she was on BiPAP during the night. Patient is quite sleepy this morning her morphine will be decreased to 2 mg IV. Capillary blood glucose running between 192 and 239. Repeat blood work ordered for tomorrow. Patient is followed by Dr. Obrien, not currently on IV antibiotics. 11/05: Patient is undergoing hemodialysis today. Yesterday, patient underwent excisional debridement of the sacral decubitus ulcer by Dr. Pierson. Patient is followed by Dr. Obrien and currently off antibiotics. Patient is seen and followed by the wound care center with plan for wound VAC. Patient has been afebrile, heart rate 80, blood pressure 107/55, pulse ox 90% on 2 L nasal cannula. Anticipate discharge back to [facility] tomorrow. REVIEW OF SYSTEMS Constitutional: Reports as per HPI, Reports chills, Denies anorexia, Denies chronic headaches, Denies chronic pain, Denies daytime sleepiness, Denies fatigue, Denies fever, Denies lethargy, Denies malaise, Denies night sweats, Denies poor appetite, Denies sweats, Denies weakness, Denies weight gain, Denies weight loss Ears, nose, mouth and throat: Reports as per HPI Cardiovascular: Reports as per HPI, Reports dyspnea on exertion, Reports edema Respiratory: Reports as per HPI, Denies cough Gastrointestinal: Reports as per HPI, Reports constipation, Denies excessive gas, Denies heartburn, Denies indigestion, Denies vomiting Genitourinary: Reports as per HPI, Reports pelvic pain, Reports stress incontinence, Denies genital sores Musculoskeletal: Reports as per HPI Integumentary: Reports as per HPI, Reports wounds Neurological: Reports as per HPI Psychiatric: Reports as per HPI, Reports anxiety attacks, Denies anhedonia, Denies anxiety, Denies change in appetite, Denies change in sleep habits, Denies confusion, Denies depression, Denies difficulty concentrating, Denies disorientation, Denies hallucinations, Denies hopelessness, Denies hypersomnia, Denies insomnia, Denies irritability, Denies memory loss, Denies mood swings, Denies paranoia, Denies sadness/tearfulness, Denies sleep disturbances, Denies suicidal ideation Endocrine: Reports fatigue, blood sugar slightly high PHYSICAL EXAMINATION Gen: This is a 75 year old obese female. Patient is resting in bed and appears to be comfortable at rest. Patient is undergoing hemodialysis. HEENT: Head is atraumatic, normocephalic. Pupils equal, round. Sclerae is anicteric. NECK: Supple. No JVD. No lymphadenopathy. No thyromegaly. LUNGS: Clear to auscultation. No wheezes or rhonchi. No intercostal retractions. HEART: Regular rate and rhythm. Systolic ejection murmur at the base. ABDOMEN: Soft. Bowel sounds are present. No masses. No tenderness. SKIN: Stage III decubitus ulcer to coccyx. EXTREMITIES: No pedal edema. No calf tenderness. NEUROLOGICAL: Patient is awake, alert and oriented x3. Cranial nerves 2 through 12 are grossly intact. ASSESSMENT AND PLAN 1. Sacral decubitus ulcer with cellulitis, stage III, patient's wheelchair bound, consult with Dr. Obrien, off antibiotics, consult with Gen. surgery status post excisional debridement. Wound care team consult appreciated and wound VAC ordered. 2. History of Recurrent UTI, none currently, status post cystoscopy, by Dr. Borrego, previous culture positive for E. coli and klebsiella during last cultureson chronic prophylactic antibiotics including nitrofurantoin and Mandelamine 3. Recent fracture left distal femur, orif on 10/23/2020, [facility] 4. Oliguria secondary to end-stage kidney disease, still making 400 mL per day, consult with nephrology, on hemodialysis Monday and Monday 5. Diabetes mellitus type 2, insulin requiring. Continue insulin sliding scale. Continue Lantus 20 units twice a day 6. End-stage renal disease on hemodialysis Monday and Monday, consult Dr. Manrique 7. Chronic diastolic heart failure. Continue hemodialysis. Lasix, metolazone on hold. Continue Toprol-XL. 8. History of aortic stenosis status post TAVR. 9. Hypertension cardiovascular disease. Continue amiodarone 100 mg daily and metoprolol. 10. Paroxysmal atrial fibrillation. Continue amiodarone 100 mg once daily and metoprolol a history of GI bleed no past several years ago, not on any anticoagulation due to increased risk of fall and GI bleeding 11. History of myocardial infarction and coronary artery disease status post LAD stent in July 2017 and left circumflex in August 2017. Continue Toprol-XL 50 mg once daily. 12. GERD continue Protonix. 13. History of hyperlipidemia continue Zetia 10mg daily 14. Obstructive sleep apnea, on CPAP machine at night, along with O2 supplementation. 15. Diabetic peripheral neuropathy continue gabapentin 300 mg twice daily. 17. Recurrent depression. Continue Cymbalta 60 mg orally once daily DVT prophylaxis. Heparin subcu every 12 GI prophylaxis continue Protonix. DISCHARGE PLAN Return to [facility] on Monday Impression and plan of care have been directed as dictated by the signing physician. Jessenia Gonzalez nurse practitioner acting as scribe for signing physician. Patient Condition at Discharge: Stable Plan - Discharge Summary Discharge Rx Participant: No New Discharge Prescriptions: New Collagenase [Santyl] 1 applic TOPICAL DAILY applic Darbepoetin Aron [Aranesp] 40 mcg SQ Q7D syringe dronabinoL [Marinol] 2.5 mg PO AC-BID #14 cap INSULIN ASPART (NovoLOG) [NovoLOG (formulary)] 0 unit SQ ACHS vial Vancomycin 1,000 mg IVPB MOWEFR #9 bag Continue DULoxetine HCL [Cymbalta] 60 mg PO DAILY@0900 Amiodarone HCl [Pacerone] 100 mg PO DAILY@0900 Ezetimibe [Zetia] 10 mg PO DAILY@0900 Omeprazole 20 mg PO DAILY@0900 Aspirin [Adult Low Dose Aspirin EC] 81 mg PO DAILY@0900 Metoprolol Succinate (ER) [Toprol XL] 50 mg PO DAILY@0900 Sevelamer [Renvela] 800 mg PO DAILY@0900 INSULIN ASPART (NovoLOG) [NovoLOG (formulary)] See Protocol SQ ACHS Insulin Glargine,Hum.rec.anlog [Semglee Pen] 20 units SQ BID@0800,2100 Gabapentin 300 mg PO BID@0900,2099 #14 cap traMADol HCL 50 mg PO Q6H PRN #28 tab PRN Reason: Pain Discontinued Levofloxacin [Levaquin] 500 mg PO DAILY@0900 Discharge Medication List DULoxetine HCL [Cymbalta] 60 mg PO DAILY@0908/04/14 [History] Amiodarone HCl [Pacerone] 100 mg PO DAILY@89911/22/15 [History] Ezetimibe [Zetia] 10 mg PO DAILY@89911/22/15 [History] Omeprazole 20 mg PO DAILY@89912/25/16 [History] Aspirin [Adult Low Dose Aspirin EC] 81 mg PO DAILY@89903/02/18 [History] Metoprolol Succinate (ER) [Toprol XL] 50 mg PO DAILY@89901/12/20 [History] Sevelamer [Renvela] 800 mg PO DAILY@89901/12/20 [History] INSULIN ASPART (NovoLOG) [NovoLOG (formulary)] See Protocol SQ ACHS 10/22/20 [History] Insulin Glargine,Hum.rec.anlog [Semglee Pen] 20 units SQ BID@0800,2100 10/31/20 [History] Collagenase [Santyl] 1 applic TOPICAL DAILY applic 11/06/20 [Rx] Darbepoetin Aron [Aranesp] 40 mcg SQ Q7D syringe 11/06/20 [Rx] Gabapentin 300 mg PO BID@0900,2100 #14 cap 11/06/20 [Rx] INSULIN ASPART (NovoLOG) [NovoLOG (formulary)] 0 unit SQ ACHS vial 11/06/20 [Rx] Vancomycin 1,000 mg IVPB MOWEFR #9 bag 11/06/20 [Rx] dronabinoL [Marinol] 2.5 mg PO AC-BID #14 cap 11/06/20 [Rx] traMADol HCL 50 mg PO Q6H PRN #28 tab 11/06/20 [Rx] Follow up Appointment(s)/Referral(s): Stevenson Farias MD [Primary Care Provider] - 1 Week (AFTER DISCHARGE FROM [facility] The office did not answer please call and make follow up appointment.) Margarette Obrien MD [STAFF PHYSICIAN] - 3 Weeks Activity/Diet/Wound Care/Special Instructions: nurse please call and notify pt daughter when d/c Discharge Disposition: TRANSFER TO SNF/ECF
[2020-11-06] MEDS: INSULIN DETEMIR (LEVEMIR) 100 UNIT/ML SYR SQ SCH ×2 (11:27→20:37)
[2020-11-06] MEDS: MORPHINE SULFATE 2 MG/ML SYRINGE IVP PRN ×2 (11:32→18:30)
--- NOTE | 2020-11-06 12:15 | P.PN ---
Subjective Patient is seen in follow-up for end-stage renal disease. She is maintained on hemodialysis on Monday schedule. Blood pressure stable. Currently BiPAP. Sleeping. Being treated for stage III pressure ulcer. Underwent debridement on November 04. No active complaints. Vital signs are stable. General: The patient appeared well nourished and normally developed. HEENT: On BiPAP. LUNGS: Breath sounds decreased. HEART: Rate and Rhythm are regular. ABDOMEN: Soft, obese. EXTREMITITES: No edema. Objective - Vital Signs Vital signs: Vital Signs Temp 97.7 F 11/06/20 05:00 Pulse 83 11/06/20 05:00 Resp 14 11/06/20 05:00 BP 116/69 11/06/20 05:00 Pulse Ox 94 L 11/06/20 05:00 Intake & Output 11/05/20 11/06/20 11/06/20 18:59 06:59 18:59 Intake Total 600 340 Output Total 2000 Balance -1400 340 Weight 77.111 kg Intake: Intake, IV Titration 240 240 Amount Sodium Chloride 0.9% 1, 240 240 000 ml @ 20 mls/hr IV . Q24H [facility] Rx#:[id number] Oral 360 100 Output: Hemodialysis 2000 Other: Voiding Method Diaper # Voids 0 - Labs CBC & Chem 7: 11/02/20 05:04 11/05/20 05:17 Labs: Abnormal Lab Results - Last 24 Hours (Table) 11/05/20 11/05/20 11/05/20 Range/Units 05:17 17:05 19:56 Sodium 132 L (135-145) mmol/L BUN 42.0 H (9.0-27.0) mg/dL Creatinine 4.3 H (0.6-1.5) mg/dL Est GFR (CKD-EPI)AfAm 11.0 L (60.0-200.0) Est GFR (CKD-EPI)NonAf 9.5 L (60.0-200.0) BUN/Creatinine Ratio 9.77 L (12.00-20.00) Ratio Glucose 138 H (70-110) mg/dL POC Glucose (mg/dL) 243 H 198 H (75-99) mg/dL Calcium 8.0 L (8.7-10.3) mg/dL Alkaline Phosphatase 208 H (41-126) U/L Total Protein 5.8 L (6.2-8.2) g/dL Albumin 3.00 L (3.80-4.90) g/dL Albumin/Globulin Ratio 1.07 L (1.60-3.17) g/dL Microbiology - Last 24 Hours (Table) 11/04/20 16:00 Gram Stain - Preliminary Buttock Tissue Culture - Preliminary Group D Enterococcus 10/31/20 16:01 Blood Culture - Preliminary Blood No Growth after 120 hours 10/31/20 16:01 Blood Culture - Preliminary Blood No Growth after 120 hours 11/02/20 05:55 Anaerobic Culture - Final Coccyx Anaerobic Gm Negative Bacilli Assessment and Plan Plan: Assessment: 1. End-stage renal disease maintained on hemodialysis on Monday schedule. 2. Sacral wound s/p antibiotics and debridement. Infectious disease and surgery following. 3. Recent UTI and E. coli bacteremia. 4. Anemia of chronic kidney disease maintained on Aranesp. 5. Diabetes mellitus. 6. 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 Plan: Hemodialysis tomorrow.
[2020-11-06 12:17] LABS: Glucose,Whole Blood 122 mg/dL (75-99)
[2020-11-06] MEDS ORDERED: VANCOMYCIN IV PER PHARMACY 1 EACH MISC MISCELLANE PRN (16:08)
--- NOTE | 2020-11-06 16:08 | P.PN ---
Subjective Progress Note Date: 11/06/20 HISTORY OF PRESENT ILLNESS This is a 74-year-old female patient of Dr. Farias with past medical history of proximal atrial fibrillation, coronary artery disease status post VA, denies any history of COPD or asthma. Uses CPAP at home frequently. chronic diastolic heart failure, diabetes, hyperlipidemia, hypertension, hypertensive cardiovascular disease, end-stage renal disease on hemodialysis Monday and Monday, aortic stenosis status post TAVR in 2018, with h/o multiple urinary tract infection treated by Dr Borrego who also did cystoscopy on 05/22 done for recurrent UIT followed by bactrim for klebsiella and ecoli uti on 06/07/2020 Patient presents to emergency room secondary to sacral pain, was being transported from dialysis back to [facility] on the [place] [facility] [employer] wheelchair van, when patient complained of worsening sacral pain, she had recently fracture d distal left femur 10/23/2020 at [facility] and was trasnsfered to [facility] yesterday 11/01 she ws there only less than 12 hrs , which is worse, there is some concern regarding worsening of the sacral wound, and patient is wheelchair bound it was present prior to her admission at [facility]. This wound has been present over the past one month, there is no fever no purulent drainage, however pain is uncontrolled. Patient was subsequently admitted, has been seen by Dr. Obrien in the past for E. coli UTI and bacteremia, 09/17/2020, patient has CT pelvis without contrast, showing subcutaneous edema over the posterior lower pelvis, and sacrum is slightly increased compared to old examination, no evidence of osteomyelitis, patient was admitted for sacral cellulitis, with sacral decubitus ulcer, with consultation to Dr. Obrien, IV cefepime blood cultures and sacral wound ulcers to be sent for culture , she does not void as much nearly anuric, not using any depends, appetite low, spoke with daughter wants bipap for use while here, cpap is at [facility]. wants marinol for appetite, and protein s upplementation, 11/02: Patient's at that site, pain is slightly better, however she is much more comfortable, overlay mattress was provided hydrocodone when necessary for pain, appetite is much better, no fever no chills, blood sugars are between 185-287, hemoglobin A1c 5.7 creatinine at 3.8 BUN of 49, TSH normal at 0.9 Dr. Easley thinks that no systemic antibiotic therapy is needed for now, on no cold [place] for wound care, no wound VAC recommendation at this time, awaiting cultures. Dialysis, Monday schedule, we will discontinue Seprafilm per recommendations from ID unable to provide urinalysis at this time patient is anuric 11/03: Patient has been seen by Dr. Obrien with recommendations for general surgery consult for possible debridement of the stage III pressure ulcer. Consult with Dr. Pierson has been added. Patient has been seen by wound team with recommendations for Santyl to be changed daily and recommended weekly wound debridements at the intermediate or follow up in the wound healing Center as an outpatient. Nephrology is following and continued on hemodialysis on Monday schedule and is scheduled for hemodialysis today. Patient has been afebrile, heart rate 74, blood pressure 112/62, pulse ox 99% on 2 L nasal cannula. Blood sugars are running between 97 and 187. Wound culture is positive for Rosario to the buttocks. Anaerobic culture is in progress. 11/04: She is scheduled for wound debridement today with Dr. Pierson. She has been afebrile, heart rate 83, blood pressure 151/69. Patient is on 2 L nasal cannula she was on BiPAP during the night. Patient is quite sleepy this morning her morphine will be decreased to 2 mg IV. Capillary blood glucose running between 192 and 239. Repeat blood work ordered for tomorrow. Patient is followed by Dr. Obrien, not currently on IV antibiotics. 11/05: Patient is undergoing hemodialysis today. Yesterday, patient underwent excisional debridement of the sacral decubitus ulcer by Dr. Pierson. Patient is followed by Dr. Obrien and currently off antibiotics. Patient is seen and fo llowed by the wound care center with plan for wound VAC. Patient has been afebrile, heart rate 80, blood pressure 107/55, pulse ox 90% on 2 L nasal cannula. Anticipate discharge back to [facility] tomorrow. 11/06: Dr. Dye is recommended vancomycin for 3 week course of antibiotics to be given with dialysis. Patient has wound VAC in place and she is placing CPAP. We have made plans for discharge back to [facility] today however insurance authorization is pending following a peer to peer evaluation. Patient has been afebrile, heart rate 79, blood pressure 100/60, pulse ox 100% on 2 L nasal cannula. Blood sugars are running between 99 and 243. Anticipate probable discharge held until Monday once discharge plan has been clarified. REVIEW OF SYSTEMS Constitutional: Reports as per HPI, Reports chills, Denies anorexia, Denies chronic headaches, Denies chronic pain, Denies daytime sleepiness, Denies fatigue, Denies fever, Denies lethargy, Denies malaise, Denies night sweats, Denies poor appetite, Denies sweats, Denies weakness, Denies weight gain, Denies weight loss Ears, nose, mouth and throat: Reports as per HPI Cardiovascular: Reports as per HPI, Reports dyspnea on exertion, Reports edema Respiratory: Reports as per HPI, Denies cough Gastrointestinal: Reports as per HPI, Reports constipation, Denies excessive gas, Denies heartburn, Denies indigestion, Denies vomiting Genitourinary: Reports as per HPI, Reports pelvic pain, Reports stress incontinence, Denies genital sores Musculoskeletal: Reports generalized weakness Integumentary: Reports as per HPI, Reports wounds Neurological: Reports as per HPI Psychiatric: Reports as per HPI, Reports anxiety attacks, Denies anhedonia, Denies anxiety, Denies change in appetite, Denies change in sleep habits, Denies confusion, Denies depression, Denies difficulty concentrating, Denies d isorientation, Denies hallucinations, Denies hopelessness, Denies hypersomnia, Denies insomnia, Denies irritability, Denies memory loss, Denies mood swings, Denies paranoia, Denies sadness/tearfulness, Denies sleep disturbances, Denies suicidal ideation Endocrine: Reports fatigue, blood sugar slightly high PHYSICAL EXAMINATION Gen: This is a 75 year old obese female. Patient is resting in bed and appears to be comfortable at rest. HEENT: Head is atraumatic, normocephalic. Pupils equal, round. Sclerae is anicteric. NECK: Supple. No JVD. No lymphadenopathy. No thyromegaly. LUNGS: Clear to auscultation. No wheezes or rhonchi. No intercostal retractions. HEART: Regular rate and rhythm. Systolic ejection murmur at the base. ABDOMEN: Soft. Bowel sounds are present. No masses. No tenderness. SKIN: Stage III decubitus ulcer to coccyx. EXTREMITIES: No pedal edema. No calf tenderness. NEUROLOGICAL: Patient is awake, alert and oriented x3. Cranial nerves 2 through 12 are grossly intact. ASSESSMENT AND PLAN 1. Sacral decubitus ulcer with cellulitis, stage III, patient's wheelchair bound, consult with Dr. Obrien, plan to start vancomycin, consult with Gen. surgery status post excisional debridement. Wound care team consult appreciated and wound VAC ordered. 2. History of Recurrent UTI, none currently, status post cystoscopy, by Dr. Borrego, previous culture positive for E. coli and klebsiella during last cultureson chronic prophylactic antibiotics including nitrofurantoin and Mandelamine 3. Recent fracture left distal femur, orif on 10/23/2020, [facility] 4. Oliguria secondary to end-stage kidney disease, still making 400 mL per day, consult with nephrology, on hemodialysis Monday and Monday 5. Diabetes mellitus type 2, insulin requiring. Continue insulin sliding scale. Continue Lantus 20 units twice a day 6. End-stage renal disease on hemodialysis Monday and Monday, consult Dr. Manrique 7. Chronic diastolic heart failure. Continue hemodialysis. Lasix, metolazone on hold. Continue Toprol-XL. 8. History of aortic stenosis status post TAVR. 9. Hypertension cardiovascular disease. Continue amiodarone 100 mg daily and metoprolol. 10. Paroxysmal atrial fibrillation. Continue amiodarone 100 mg once daily and metoprolol a history of GI bleed no past several years ago, not on any anticoagulation due to increased risk of fall and GI bleeding 11. History of myocardial infarction and coronary artery disease status post LAD stent in July 2017 and left circumflex in August 2017. Continue Toprol-XL 50 mg once daily. 12. GERD continue Protonix. 13. History of hyperlipidemia continue Zetia 10mg daily 14. Obstructive sleep apnea, on CPAP machine at night, along with O2 supplementation. 15. Diabetic peripheral neuropathy continue gabapentin 300 mg twice daily. 17. Recurrent depression. Continue Cymbalta 60 mg orally once daily DVT prophylaxis. Heparin subcu every 12 GI prophylaxis continue Protonix. DISCHARGE PLAN Return to [facility] on Monday or other discharge plan to be determined Impression and plan of care have been directed as dictated by the signing physician. Jessenia Gonzalez nurse practitioner acting as scribe for signing physician. Objective - Vital Signs Vital signs: Vital Signs Temp 98.2 F 11/06/20 12:10 Pulse 79 11/06/20 12:10 Resp 16 11/06/20 12:10 BP 100/60 11/06/20 12:10 Pulse Ox 100 11/06/20 12:10 Intake & Output 11/05/20 11/06/20 11/06/20 18:59 06:59 18:59 Intake Total 600 340 Output Total 2000 Balance -1400 340 Weight 77.111 kg 57.5 kg Intake: Intake, IV Titration 240 240 Amount Sodium Chloride 0.9% 1, 240 240 000 ml @ 20 mls/hr IV . Q24H [facility] Rx#:[id number] Oral 360 100 Output: Hemodialysis 2000 Other: Voiding Method Diaper # Voids 0 - Labs CBC & Chem 7: 11/02/20 05:04 11/05/20 05:17 Labs: Abnormal Lab Results - Last 24 Hours (Table) 11/05/20 11/05/20 11/05/20 Range/Units 05:17 17:05 19:56 Sodium 132 L (135-145) mmol/L BUN 42.0 H (9.0-27.0) mg/dL Creatinine 4.3 H (0.6-1.5) mg/dL Est GFR (CKD-EPI)AfAm 11.0 L (60.0-200.0) Est GFR (CKD-EPI)NonAf 9.5 L (60.0-200.0) BUN/Creatinine Ratio 9.77 L (12.00-20.00) Ratio Glucose 138 H (70-110) mg/dL POC Glucose (mg/dL) 243 H 198 H (75-99) mg/dL Calcium 8.0 L (8.7-10.3) mg/dL Alkaline Phosphatase 208 H (41-126) U/L Total Protein 5.8 L (6.2-8.2) g/dL Albumin 3.00 L (3.80-4.90) g/dL Albumin/Globulin Ratio 1.07 L (1.60-3.17) g/dL 11/06/20 Range/Units 12:13 Sodium (135-145) mmol/L BUN (9.0-27.0) mg/dL Creatinine (0.6-1.5) mg/dL Est GFR (CKD-EPI)AfAm (60.0-200.0) Est GFR (CKD-EPI)NonAf (60.0-200.0) BUN/Creatinine Ratio (12.00-20.00) Ratio Glucose (70-110) mg/dL POC Glucose (mg/dL) 122 H (75-99) mg/dL Calcium (8.7-10.3) mg/dL Alkaline Phosphatase (41-126) U/L Total Protein (6.2-8.2) g/dL Albumin (3.80-4.90) g/dL Albumin/Globulin Ratio (1.60-3.17) g/dL Microbiology - Last 24 Hours (Table) 11/04/20 16:00 Gram Stain - Preliminary Buttock Tissue Culture - Preliminary Group D Enterococcus 10/31/20 16:01 Blood Culture - Preliminary Blood No Growth after 120 hours 10/31/20 16:01 Blood Culture - Preliminary Blood No Growth after 120 hours 11/02/20 05:55 Anaerobic Culture - Final Coccyx Anaerobic Gm Negative Bacilli
[2020-11-06] MEDS ORDERED: VANCOMYCIN 1,000 MG in SODIUM CHLORIDE 0.9% 250 ML IVPB ONE (17:00)
[2020-11-06 17:42] LABS: Glucose,Whole Blood 192 mg/dL (75-99)
[2020-11-06] MEDS: SODIUM CHLORIDE 0.9% 1,000 ML IV SCH (18:23)
[2020-11-06 20:31] LABS: Glucose,Whole Blood 211 mg/dL (75-99)
[2020-11-07 07:15] LABS: Glucose,Whole Blood 194 mg/dL (75-99)
[2020-11-07] MEDS: HEPARIN SODIUM,PORCINE/PF 5,000 UNIT/0.5 ML SYRINGE SQ SCH ×2 (07:40→21:20)
[2020-11-07] MEDS: EZETIMIBE 10 MG TAB PO SCH (07:41)
[2020-11-07] MEDS: INSULIN DETEMIR (LEVEMIR) 100 UNIT/ML SYR SQ SCH ×2 (07:41→21:20)
[2020-11-07] MEDS: GABAPENTIN 300 MG CAP PO SCH ×2 (07:42→21:20)
[2020-11-07] MEDS: DULoxetine HCL 60 MG CAPSULE.DR PO SCH (07:42)
[2020-11-07] MEDS: PANTOPRAZOLE 40 MG TABLET PO SCH (07:43)
[2020-11-07] MEDS: LACTATED RINGERS 1,000 ML IV SCH (07:43)
[2020-11-07] MEDS: SEVELAMER 800 MG TAB PO SCH (07:43)
[2020-11-07] MEDS: ASPIRIN 81 MG PO SCH (07:43)
[2020-11-07 07:45] LABS: African American GFR (CKD) 12 (>60 ml/min/1.73 sqM); Anion Gap 8 mmol/L; Blood Urea Nitrogen 37 mg/dL (7-17); Calcium 8.5 mg/dL (8.4-10.2); Carbon Dioxide 28 mmol/L (22-30); Chloride 92 mmol/L (98-107); Glucose 176 mg/dL (74-99); Non-African American GFR(CKD) 11 (>60 ml/min/1.73 sqM); Potassium 5.3 mmol/L (3.5-5.1); Sodium 128 mmol/L (137-145)
[2020-11-07] MEDS: INSULIN ASPART (NovoLOG) 100 UNIT/ML VIAL SQ SCH ×4 (08:20→21:20)
[2020-11-07] MEDS: METOPROLOL SUCCINATE (ER) 50 MG TAB.ER.24H PO SCH (10:05)
[2020-11-07] MEDS: AMIODARONE 100 MG TAB PO SCH (10:05)
--- NOTE | 2020-11-07 10:31 | P.PN ---
Subjective Patient is seen in follow-up for end-stage renal disease. She is maintained on hemodialysis on Monday schedule. Blood pressure stable. Being treated for stage III pressure ulcer. Underwent debridement on November 04. No active complaints. Currently having breakfast. Vital signs are stable. General: The patient appeared well nourished and normally developed. HEENT: On BiPAP. LUNGS: Breath sounds decreased. HEART: Rate and Rhythm are regular. ABDOMEN: Soft, obese. EXTREMITITES: No edema. Objective - Vital Signs Vital signs: Vital Signs Temp 98.5 F 11/07/20 04:05 Pulse 82 11/07/20 04:05 Resp 16 11/07/20 04:05 BP 120/55 11/07/20 04:05 Pulse Ox 95 11/07/20 04:05 Intake & Output 11/06/20 11/07/20 11/07/20 18:59 06:59 18:59 Intake Total 160 Output Total 0 Balance 160 0 Weight 66 kg Intake: Intake, IV Titration 160 Amount Lactated Ringers 1,000 ml 160 @ 20 mls/hr IV .Q24H [facility] Rx#:[id number] Output: Urine 0 Other: Voiding Method Diaper Diaper - Labs CBC & Chem 7: 11/02/20 05:04 11/07/20 06:47 Labs: Abnormal Lab Results - Last 24 Hours (Table) 11/06/20 11/06/20 11/06/20 Range/Units 12:13 17:40 20:30 Sodium (137-145) mmol/L Potassium (3.5-5.1) mmol/L Chloride (98-107) mmol/L BUN (7-17) mg/dL Creatinine (0.52-1.04) mg/dL Glucose (74-99) mg/dL POC Glucose (mg/dL) 122 H 192 H 211 H (75-99) mg/dL 11/07/20 11/07/20 Range/Units 06:47 07:13 Sodium 128 L (137-145) mmol/L Potassium 5.3 H (3.5-5.1) mmol/L Chloride 92 L (98-107) mmol/L BUN 37 H (7-17) mg/dL Creatinine 3.95 H (0.52-1.04) mg/dL Glucose 176 H (74-99) mg/dL POC Glucose (mg/dL) 194 H (75-99) mg/dL Microbiology - Last 24 Hours (Table) 11/04/20 16:00 Gram Stain - Preliminary Buttock Tissue Culture - Preliminary Enterococcus faecalis Rosario albicans Coagulase Negative Staph 11/04/20 16:00 Anaerobic Culture - Preliminary Buttock 11/04/20 16:00 Anaerobic Culture - Preliminary Buttock 11/04/20 16:00 Gram Stain - Final Buttock Wound Culture - Final Rosario albicans 11/04/20 16:00 Gram Stain - Final Buttock Wound Culture - Final Rosario albicans 10/31/20 16:01 Blood Culture - Final Blood No Growth after 144 hours 10/31/20 16:01 Blood Culture - Final Blood No Growth after 144 hours Assessment and Plan Plan: Assessment: 1. End-stage renal disease maintained on hemodialysis on Monday schedule. 2. Sacral wound s/p antibiotics and debridement. Infectious disease and surgery following. 3. Recent UTI and E. coli bacteremia. 4. Anemia of chronic kidney disease maintained on Aranesp. 5. Diabetes mellitus. 6. 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 Plan: Hemodialysis today.
[2020-11-07 11:17] LABS: Glucose,Whole Blood 132 mg/dL (75-99)
--- NOTE | 2020-11-07 11:38 | PN ---
PROGRESS NOTE DATE OF SERVICE: 11/06/2020 REASON FOR FOLLOWUP: Infected sacral pressure ulcer. INTERVAL HISTORY: Noted the patient is currently afebrile. The patient is breathing comfortably. The patient remains to be lethargic and is unable to provide any history. No vomiting or diarrhea has been reported. PHYSICAL EXAMINATION: Blood pressure 100/60 with a pulse of 79, temperature 98.2, she is 100% on 2 L nasal cannula. GENERAL DESCRIPTION: Is an elderly female lying bed, in no distress. RESPIRATORY SYSTEM: Unlabored breathing, clear to auscultation anteriorly. HEART: S1, S2. Regular rate and rhythm. ABDOMEN: Soft, no tenderness. Sacral wound is currently dressed. LAB: Sacral cultures are showing group D Enterococcus sensitivities pending, along with gram- negative, patient with infected sacral pressure ulcer status post debridement. Culture did grow Enterococcus sensitivities pending as well as anaerobes. Antibiotics in the form of Flagyl. Ideally, should have waited for the cultures. However, the patient to be discharged vancomycin with the option through the dialysis. Local wound care with wound VAC and advised to follow up in the Wound Care Center. MMODL / IJN: [id number] / VEGA
[2020-11-07] MEDS ORDERED: VANCOMYCIN 1,000 MG in SODIUM CHLORIDE 0.9% 250 ML IVPB ONE (12:00)
[2020-11-07] MEDS: traMADol 50 MG TAB PO PRN ×2 (12:29→21:20)
--- NOTE | 2020-11-07 13:08 | P.PN ---
Subjective Progress Note Date: 11/07/20 HISTORY OF PRESENT ILLNESS This is a 74-year-old female patient of Dr. Farias with past medical history of proximal atrial fibrillation, coronary artery disease status post PA, denies any history of COPD or asthma. Uses CPAP at home frequently. chronic diastolic heart failure, diabetes, hyperlipidemia, hypertension, hypertensive cardiovascular disease, end-stage renal disease on hemodialysis Monday and Monday, aortic stenosis status post TAVR in 2018, with h/o multiple urinary tract infection treated by Dr Borrego who also did cystoscopy on 05/22 done for recurrent UIT followed by bactrim for klebsiella and ecoli uti on 06/07/2020 Patient presents to emergency room secondary to sacral pain, was being transported from dialysis back to [facility] on the [place] [facility] [employer] wheelchair van, when patient complained of worsening sacral pain, she had recently fractured distal left femur 10/23/[address] [facility] and was trasnsfered to [facility] yesterday 11/01 she ws there only less than 12 hrs , which is worse, there is some concern regarding worsening of the sacral wound, and patient is wheelchair bound it was present prior to her admission at [facility]. This wound has been present over the past one month, there is no fever no purulent drainage, however pain is uncontrolled. Patient was subsequently admitted, has been seen by Dr. Obrien in the past for E. coli UTI and bacteremia, 09/17/2020, patient has CT pelvis without contrast, showing subcutaneous edema over the posterior lower pelvis, and sacrum is slightly increased compared to old examination, no evidence of osteomyelitis, patient was admitted for sacral cellulitis, with sacral decubitus ulcer, with consultation to Dr. Obrien, IV cefepime blood cultures and sacral wound ulcers to be sent for culture , she does not void as much nearly anuric, not using any depends, appetite low, spoke with daughter wants bipap for use while here, cpap is at [facility]. wants marinol for appetite, and protein supplementation, 11/02: Patient's at that site, pain is slightly better, however she is much more comfortable, overlay mattress was provided hydrocodone when necessary for pain, appetite is much better, no fever no chills, blood sugars are between 185-287, hemoglobin A1c 5.7 creatinine at 3.8 BUN of 49, TSH normal at 0.9 Dr. Easley thinks that no systemic antibiotic therapy is needed for now, on no cold [place] for wound care, no wound VAC recommendation at this time, awaiting cultures. Dialysis, Monday schedule, we will discontinue Seprafilm per recommendations from ID unable to provide urinalysis at this time patient is anuric 11/03: Patient has been seen by Dr. Obrien with recommendations for general surgery consult for possible debridement of the stage III pressure ulcer. Consult with Dr. Pierson has been added. Patient has been seen by wound team with recommendations for Santyl to be changed daily and recommended weekly wound debridements at the half-way or follow up in the wound healing Center as an outpatient. Nephrology is following and continued on hemodialysis on Monday schedule and is scheduled for hemodialysis today. Patient has been afebrile, heart rate 74, blood pressure 112/62, pulse ox 99% on 2 L nasal cannula. Blood sugars are running between 97 and 187. Wound culture is positive for Rosario to the buttocks. Anaerobic culture is in progress. 11/04: She is scheduled for wound debridement today with Dr. Pierson. She has been afebrile, heart rate 83, blood pressure 151/69. Patient is on 2 L nasal cannula she was on BiPAP during the night. Patient is quite sleepy this morning her morphine will be decreased to 2 mg IV. Capillary blood glucose running between 192 and 239. Repeat blood work ordered for tomorrow. Patient is followed by Dr. Obrien, not currently on IV antibiotics. 11/05: Patient is undergoing hemodialysis today. Yesterday, patient underwent excisional debridement of the sacral decubitus ulcer by Dr. Pierson. Patient is followed by Dr. Obrien and currently off antibiotics. Patient is seen and fol lowed by the wound care center with plan for wound VAC. Patient has been afebrile, heart rate 80, blood pressure 107/55, pulse ox 90% on 2 L nasal cannula. Anticipate discharge back to [facility] tomorrow. 11/06: Dr. Dye is recommended vancomycin for 3 week course of antibiotics to be given with dialysis. Patient has wound VAC in place and she is placing CPAP. We have made plans for discharge back to [facility] today however insurance authorization is pending following a peer to peer evaluation. Patient has been afebrile, heart rate 79, blood pressure 100/60, pulse ox 100% on 2 L nasal cannula. Blood sugars are running between 99 and 243. Anticipate probable discharge held until Monday once discharge plan has been clarified. 11/07: Patient is found resting comfortably in bed in no distress. Patient has wound VAC in place and she is utilizing her CPAP machine in the evening. Patient states that she would like to stay in the hospital for her treatment rather than going back to [facility] however we will continue with working on insurance authorization for subacute rehab. Patient remains Afebrile, heart rate 92, respirations 18, blood pressure 105/62, pulse ox a 99% on 3 L. REVIEW OF SYSTEMS Constitutional: Reports as per HPI, Reports chills, Denies anorexia, Denies chronic headaches, Denies chronic pain, Denies daytime sleepiness, Denies fatigue, Denies fever, Denies lethargy, Denies malaise, Denies night sweats, Denies poor appetite, Denies sweats, Denies weakness, Denies weight gain, Denies weight loss Ears, nose, mouth and throat: Reports as per HPI Cardiovascular: Reports as per HPI, Reports dyspnea on exertion, Reports edema Respiratory: Reports as per HPI, Denies cough Gastrointestinal: Reports as per HPI, Reports constipation, Denies excessive gas, Denies heartburn, Denies indigestion, Denies vomiting Genitourinary: Reports as per HPI, Reports pelvic pain, Reports stress incontinence, Denies genital sores Musculoskeletal: Reports generalized weakness Integumentary: Reports as per HPI, Reports wounds Neurological: Reports as per HPI Psychiatric: Reports as per HPI, Reports anxiety attacks, Denies anhedonia, Denies anxiety, Denies change in appetite, Denies change in sleep habits, Denies confusion, Denies depression, Denies difficulty concentrating, Denies disorientation, Denies hallucinations, Denies hopelessness, Denies hypersomnia, Denies insomnia, Denies irritability, Denies memory loss, Denies mood swings, Denies paranoia, Denies sadness/tearfulness, Denies sleep disturbances, Denies suicidal ideation Endocrine: Reports fatigue, blood sugar slightly high PHYSICAL EXAMINATION Gen: This is a 75 year old obese female. Patient is resting in bed and appears to be comfortable at rest. HEENT: Head is atraumatic, normocephalic. Pupils equal, round. Sclerae is anicteric. NECK: Supple. No JVD. No lymphadenopathy. No thyromegaly. LUNGS: Clear to auscultation. No wheezes or rhonchi. No intercostal retractions. HEART: Regular rate and rhythm. Systolic ejection murmur at the base. ABDOMEN: Soft. Bowel sounds are present. No masses. No tenderness. SKIN: Stage III decubitus ulcer to coccyx. EXTREMITIES: No pedal edema. No calf tenderness. NEUROLOGICAL: Patient is awake, alert and oriented x3. Cranial nerves 2 through 12 are grossly intact. ASSESSMENT AND PLAN 1. Sacral decubitus ulcer with cellulitis, stage III, patient's wheelchair bound, consult with Dr. Obrien, plan to start vancomycin, consult with Gen. surgery status post excisional debridement. Wound care team consult appreciated and wound VAC ordered. 2. History of Recurrent UTI, none currently, status post cystoscopy, by Dr. Ginger burgos, previous culture positive for E. coli and klebsiella during last cultureson chronic prophylactic antibiotics including nitrofurantoin and Mandelamine 3. Recent fracture left distal femur, orif on 10/23/2020, [facility] 4. Oliguria secondary to end-stage kidney disease, still making 400 mL per day, consult with nephrology, on hemodialysis Monday and Monday 5. Diabetes mellitus type 2, insulin requiring. Continue insulin sliding scale. Continue Lantus 20 units twice a day 6. End-stage renal disease on hemodialysis Monday and Monday, consult Dr. Manrique 7. Chronic diastolic heart failure. Continue hemodialysis. Lasix, metolazone on hold. Continue Toprol-XL. 8. History of aortic stenosis status post TAVR. 9. Hypertension cardiovascular disease. Continue amiodarone 100 mg daily and metoprolol. 10. Paroxysmal atrial fibrillation. Continue amiodarone 100 mg once daily and metoprolol a history of GI bleed no past several years ago, not on any anticoagulation due to increased risk of fall and GI bleeding 11. History of myocardial infarction and coronary artery disease status post LAD stent in July 2017 and left circumflex in August 2017. Continue Toprol-XL 50 mg once daily. 12. GERD continue Protonix. 13. History of hyperlipidemia continue Zetia 10mg daily 14. Obstructive sleep apnea, on CPAP machine at night, along with O2 supplementation. 15. Diabetic peripheral neuropathy continue gabapentin 300 mg twice daily. 17. Recurrent depression. Continue Cymbalta 60 mg orally once daily DVT prophylaxis. Heparin subcu every 12 GI prophylaxis continue Protonix. DISCHARGE PLAN Return to [facility] on Monday or other discharge plan to be determined Impression and plan of care have been directed as dictated by the signing physician. Stella Botello nurse practitioner acting as scribe for signing physician. Objective - Vital Signs Vital signs: Vital Signs Temp 98.1 F 11/07/20 12:28 Pulse 92 11/07/20 12:28 Resp 18 11/07/20 12:28 BP 105/62 11/07/20 12:28 Pulse Ox 99 11/07/20 12:28 Intake & Output 11/06/20 11/07/20 11/07/20 18:59 06:59 18:59 Intake Total 160 Output Total 0 Balance 160 0 Weight 66 kg Intake: Intake, IV Titration 160 Amount Lactated Ringers 1,000 ml 160 @ 20 mls/hr IV .Q24H [facility] Rx#:[id number] Output: Urine 0 Other: Voiding Method Diaper Diaper - Labs CBC & Chem 7: 11/02/20 05:04 11/07/20 06:47 Labs: Abnormal Lab Results - Last 24 Hours (Table) 11/06/20 11/06/20 11/07/20 Range/Units 17:40 20:30 06:47 Sodium 128 L (137-145) mmol/L Potassium 5.3 H (3.5-5.1) mmol/L Chloride 92 L (98-107) mmol/L BUN 37 H (7-17) mg/dL Creatinine 3.95 H (0.52-1.04) mg/dL Glucose 176 H (74-99) mg/dL POC Glucose (mg/dL) 192 H 211 H (75-99) mg/dL 11/07/20 11/07/20 Range/Units 07:13 11:14 Sodium (137-145) mmol/L Potassium (3.5-5.1) mmol/L Chloride (98-107) mmol/L BUN (7-17) mg/dL Creatinine (0.52-1.04) mg/dL Glucose (74-99) mg/dL POC Glucose (mg/dL) 194 H 132 H (75-99) mg/dL Microbiology - Last 24 Hours (Table) 11/04/20 16:00 Gram Stain - Preliminary Buttock Tissue Culture - Preliminary Enterococcus faecalis Rosario albicans Coagulase Negative Staph 11/04/20 16:00 Anaerobic Culture - Preliminary Buttock 11/04/20 16:00 Anaerobic Culture - Preliminary Buttock 11/04/20 16:00 Gram Stain - Final Buttock Wound Culture - Final Rosario albicans 11/04/20 16:00 Gram Stain - Final Buttock Wound Culture - Final Rosario albicans 10/31/20 16:01 Blood Culture - Final Blood No Growth after 144 hours 10/31/20 16:01 Blood Culture - Final Blood No Growth after 144 hours Assessment and Plan (1) Decubitus ulcer of sacral region, stage 3 Current Visit: Yes Status: Acute Code(s): L89.153 - PRESSURE ULCER OF SACRAL REGION, STAGE 3 SNOMED Code(s): 249417095 (2) Diabetes with skin ulcer Current Visit: Yes Status: Acute Code(s): E11.622 - TYPE 2 DIABETES MELLITUS WITH OTHER SKIN ULCER; L98.499 - NON-PRESSURE CHRONIC ULCER OF SKIN OF SITES W UNSP SEVERITY SNOMED Code(s): 00689686
[2020-11-07] MEDS: COLLAGENASE 250 UNIT/GM OINTMENT 30 GM TUBE TOPICAL SCH (13:17)
--- NOTE | 2020-11-07 14:17 | PN ---
PROGRESS NOTE DATE OF SERVICE: 11/07/2020 REASON FOR FOLLOWUP: Infected sacral pressure ulcer. INTERVAL HISTORY: Patient is afebrile. The patient is breathing comfortably. Complaining of some pain to the lower back wound area, but no worsening. No chest pain, shortness of breath, abdominal pain or diarrhea. PHYSICAL EXAMINATION: Blood pressure 152/74, pulse of 90, temperature 98.3 she is 99% on 2 L nasal cannula. GENERAL DESCRIPTION: Is an elderly female lying in bed, in no distress. RESPIRATORY SYSTEM: Unlabored breathing, clear to auscultation anteriorly. HEART: S1, S2. Regular rate and rhythm. ABDOMEN: No tenderness. Wound VAC was just changed by the RN mentioned. Wound base looks clean. Beefy red with no slough or necrotic tissue. LABS: Wound culture with enterococcus, staph, anaerobes. DIAGNOSTIC IMPRESSION AND PLAN: Patient with infected sacral pressure ulcer status post debridement culture with Enterococcus faecalis, staph and anaerobes. Plan is for vancomycin, along with oral Flagyl for 3 weeks and close outpatient followup. MMODL / IJN: [id number] / MTDD
[2020-11-07] MEDS: SODIUM CHLORIDE 0.9% 1,000 ML IV SCH (15:09)
[2020-11-07 17:04] LABS: Glucose,Whole Blood 233 mg/dL (75-99)
[2020-11-07 20:42] LABS: Glucose,Whole Blood 199 mg/dL (75-99)
[2020-11-08 07:28] LABS: Glucose,Whole Blood 102 mg/dL (75-99)
[2020-11-08] MEDS ORDERED: VANCOMYCIN 1,000 MG in SODIUM CHLORIDE 0.9% 250 ML IVPB ONE (08:00)
[2020-11-08] MEDS: AMIODARONE 100 MG TAB PO SCH (09:34)
[2020-11-08] MEDS: GABAPENTIN 300 MG CAP PO SCH ×2 (09:34→21:50)
[2020-11-08] MEDS: ASPIRIN 81 MG PO SCH (09:34)
[2020-11-08] MEDS: HEPARIN SODIUM,PORCINE/PF 5,000 UNIT/0.5 ML SYRINGE SQ SCH ×2 (09:35→21:49)
[2020-11-08] MEDS: DULoxetine HCL 60 MG CAPSULE.DR PO SCH (09:35)
[2020-11-08] MEDS: SEVELAMER 800 MG TAB PO SCH (09:35)
[2020-11-08] MEDS: PANTOPRAZOLE 40 MG TABLET PO SCH (09:35)
[2020-11-08] MEDS: INSULIN ASPART (NovoLOG) 100 UNIT/ML VIAL SQ SCH ×4 (09:35→21:50)
[2020-11-08] MEDS: LACTATED RINGERS 1,000 ML IV SCH (09:35)
[2020-11-08] MEDS: INSULIN DETEMIR (LEVEMIR) 100 UNIT/ML SYR SQ SCH ×2 (09:35→21:49)
[2020-11-08] MEDS: METOPROLOL SUCCINATE (ER) 50 MG TAB.ER.24H PO SCH (09:35)
[2020-11-08] MEDS: COLLAGENASE 250 UNIT/GM OINTMENT 30 GM TUBE TOPICAL SCH (09:36)
[2020-11-08] MEDS: EZETIMIBE 10 MG TAB PO SCH (09:36)
--- NOTE | 2020-11-08 10:17 | P.PN ---
Subjective Patient is seen in follow-up for end-stage renal disease. She is maintained on hemodialysis on Monday schedule. Blood pressure stable. Being treated for stage III pressure ulcer. Underwent debridement on November 04. No active complaints. Tolerated dialysis well yesterday. Vital signs are stable. General: The patient appeared well nourished and normally developed. HEENT: On BiPAP. LUNGS: Breath sounds decreased. HEART: Rate and Rhythm are regular. ABDOMEN: Soft, obese. EXTREMITITES: No edema. Objective - Vital Signs Vital signs: Vital Signs Temp 98.1 F 11/08/20 05:00 Pulse 90 11/08/20 05:00 Resp 18 11/08/20 05:00 BP 128/63 11/08/20 05:00 Pulse Ox 94 L 11/08/20 05:00 Intake & Output 11/07/20 11/08/20 11/08/20 18:59 06:59 18:59 Intake Total 1590 490 Output Total 1999 Balance -410 490 Intake: Intake, IV Titration 490 490 Amount Lactated Ringers 1,000 ml 240 @ 20 mls/hr IV .Q24H [facility] Rx#:[id number] Sodium Chloride 0.9% 1, 240 000 ml @ 20 mls/hr IV . Q24H [facility] Rx#:[id number] Vancomycin 1,000 mg In 250 250 Sodium Chloride 0.9% 250 ml @ 125 mls/hr IVPB ONCE ONE Rx#:[id number] Oral 1100 Output: Hemodialysis 2000 Other: Voiding Method Diaper Diaper # Voids 0 - Labs CBC & Chem 7: 11/02/20 05:04 11/07/20 06:47 Labs: Abnormal Lab Results - Last 24 Hours (Table) 11/07/20 11/07/20 11/07/20 Range/Units 11:14 17:03 20:40 POC Glucose (mg/dL) 132 H 233 H 199 H (75-99) mg/dL 11/08/20 Range/Units 07:26 POC Glucose (mg/dL) 102 H (75-99) mg/dL Microbiology - Last 24 Hours (Table) 11/04/20 16:00 Gram Stain - Final Buttock Tissue Culture - Final Enterococcus faecalis Rosario albicans Staphylococcus xylosus Assessment and Plan Plan: Assessment: 1. End-stage renal disease maintained on hemodialysis on Monday schedule. 2. Sacral wound s/p antibiotics and debridement. Infectious disease and surgery following. 3. Recent UTI and E. coli bacteremia. 4. Anemia of chronic kidney disease maintained on Aranesp. 5. Diabetes mellitus. 6. 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 Plan: Hemodialysis Monday. Monitor vancomycin levels. Target level near 15.
[2020-11-08 11:16] LABS: Glucose,Whole Blood 79 mg/dL (75-99)
--- NOTE | 2020-11-08 12:33 | P.PN ---
Subjective Progress Note Date: 11/08/20 HISTORY OF PRESENT ILLNESS This is a 74-year-old female patient of Dr. Farias with past medical history of proximal atrial fibrillation, coronary artery disease status post MA, denies any history of COPD or asthma. Uses CPAP at home frequently. chronic diastolic heart failure, diabetes, hyperlipidemia, hypertension, hypertensive cardiovascular disease, end-stage renal disease on hemodialysis Monday and Monday, aortic stenosis status post TAVR in 2018, with h/o multiple urinary tract infection treated by Dr Borrego who also did cystoscopy on 05/22 done for recurrent UIT followed by bactrim for klebsiella and ecoli uti on 06/07/2020 Patient presents to emergency room secondary to sacral pain, was being transported from dialysis back to [facility] on the [place] [facility] [employer] wheelchair van, when patient complained of worsening sacral pain, she had recently fractured distal left femur 10/23/[address] [facility] and was trasnsfered to [facility] yesterday 11/01 she ws there only less than 12 hrs , which is worse, there is some concern regarding worsening of the sacral wound, and patient is wheelchair bound it was present prior to her admission at [place]. This wound has been present over the past one month, there is no fever no purulent drainage, however pain is uncontrolled. Patient was subsequently admitted, has been seen by Dr. Obrien in the past for E. coli UTI and bacteremia, 09/17/2020, patient has CT pelvis without contrast, showing subcutaneous edema over the posterior lower pelvis, and sacrum is slightly increased compared to old examination, no evidence of osteomyelitis, patient was admitted for sacral cellulitis, with sacral decubitus ulcer, with consultation to Dr. Obrien, IV cefepime blood cultures and sacral wound ulcers to be sent for culture , she does not void as much nearly anuric, not using any depends, appetite low, spoke with daughter wants bipap for use while here, cpap is at [facility]. wants marinol for appetite, and protein supplementation, 11/02: Patient's at that site, pain is slightly better, however she is much more comfortable, overlay mattress was provided hydrocodone when necessary for pain, appetite is much better, no fever no chills, blood sugars are between 185-287, hemoglobin A1c 5.7 creatinine at 3.8 BUN of 49, TSH normal at 0.9 Dr. Easley thinks that no systemic antibiotic therapy is needed for now, on no cold [facility] for wound care, no wound VAC recommendation at this time, awaiting cultures. Dialysis, Monday schedule, we will discontinue Seprafilm per recommendations from ID unable to provide urinalysis at this time patient is anuric 11/03: Patient has been seen by Dr. Obrien with recommendations for general surgery consult for possible debridement of the stage III pressure ulcer. Consult with Dr. Pierson has been added. Patient has been seen by wound team with recommendations for Santyl to be changed daily and recommended weekly wound debridements at the intermediate or follow up in the wound healing Center as an outpatient. Nephrology is following and continued on hemodialysis on Monday schedule and is scheduled for hemodialysis today. Patient has been afebrile, heart rate 74, blood pressure 112/62, pulse ox 99% on 2 L nasal cannula. Blood sugars are running between 97 and 187. Wound culture is positive for Rosario to the buttocks. Anaerobic culture is in progress. 11/04: She is scheduled for wound debridement today with Dr. Pierson. She has been afebrile, heart rate 83, blood pressure 151/69. Patient is on 2 L nasal cannula she was on BiPAP during the night. Patient is quite sleepy this morning her morphine will be decreased to 2 mg IV. Capillary blood glucose running between 192 and 239. Repeat blood work ordered for tomorrow. Patient is followed by Dr. Obrien, not currently on IV antibiotics. 11/05: Patient is undergoing hemodialysis today. Yesterday, patient underwent excisional debridement of the sacral decubitus ulcer by Dr. Pierson. Patient is followed by Dr. Obrien and currently off antibiotics. Patient is seen and fol lowed by the wound care center with plan for wound VAC. Patient has been afebrile, heart rate 80, blood pressure 107/55, pulse ox 90% on 2 L nasal cannula. Anticipate discharge back to [facility] tomorrow. 11/06: Dr. Dye is recommended vancomycin for 3 week course of antibiotics to be given with dialysis. Patient has wound VAC in place and she is placing CPAP. We have made plans for discharge back to [facility] today however insurance authorization is pending following a peer to peer evaluation. Patient has been afebrile, heart rate 79, blood pressure 100/60, pulse ox 100% on 2 L nasal cannula. Blood sugars are running between 99 and 243. Anticipate probable discharge held until Monday once discharge plan has been clarified. 11/07: Patient is found resting comfortably in bed in no distress. Patient has wound VAC in place and she is utilizing her CPAP machine in the evening. Patient states that she would like to stay in the hospital for her treatment rather than going back to [facility] however we will continue with working on insurance authorization for subacute rehab. Patient remains Afebrile, heart rate 92, respirations 18, blood pressure 105/62, pulse ox a 99% on 3 L. 11/08: She was found resting in bed with BiPAP machine in place. Patient continues have wound VAC in place. She will continue with the wound VAC upon discharge. Reluctant to return to [facility]. However she is unable to go home. Discussed with patient in length that she may decide to go to a different ex [facility] care facility however she is unable to stand the hospital to complete her course of treatment. REVIEW OF SYSTEMS Constitutional: Reports as per HPI, Reports chills, Denies anorexia, Denies chronic headaches, Denies chronic pain, Denies daytime sleepiness, Denies fati ariella, Denies fever, Denies lethargy, Denies malaise, Denies night sweats, Denies poor appetite, Denies sweats, Denies weakness, Denies weight gain, Denies weight loss Ears, nose, mouth and throat: Reports as per HPI Cardiovascular: Reports as per HPI, Reports dyspnea on exertion, Reports edema Respiratory: Reports as per HPI, Denies cough Gastrointestinal: Reports as per HPI, Reports constipation, Denies excessive gas, Denies heartburn, Denies indigestion, Denies vomiting Genitourinary: Reports as per HPI, Reports pelvic pain, Reports stress incontinence, Denies genital sores Musculoskeletal: Reports generalized weakness Integumentary: Reports as per HPI, Reports wounds Neurological: Reports as per HPI Psychiatric: Reports as per HPI, Reports anxiety attacks, Denies anhedonia, Denies anxiety, Denies change in appetite, Denies change in sleep habits, Denies confusion, Denies depression, Denies difficulty concentrating, Denies disorientation, Denies hallucinations, Denies hopelessness, Denies hypersomnia, Denies insomnia, Denies irritability, Denies memory loss, Denies mood swings, Denies paranoia, Denies sadness/tearfulness, Denies sleep disturbances, Denies suicidal ideation Endocrine: Reports fatigue, blood sugar slightly high PHYSICAL EXAMINATION Gen: This is a 75 year old obese female. Patient is resting in bed and appears to be comfortable at rest. HEENT: Head is atraumatic, normocephalic. Pupils equal, round. Sclerae is anicteric. NECK: Supple. No JVD. No lymphadenopathy. No thyromegaly. LUNGS: Clear to auscultation. No wheezes or rhonchi. No intercostal retractions. HEART: Regular rate and rhythm. Systolic ejection murmur at the base. ABDOMEN: Soft. Bowel sounds are present. No masses. No tenderness. SKIN: Stage III decubitus ulcer to coccyx. EXTREMITIES: No pedal edema. No calf tenderness. NEUROLOGICAL: Patient is awake, alert and oriented x3. Cranial nerves 2 through 12 are grossly intact. ASSESSMENT AND PLAN 1. Sacral decubitus ulcer with cellulitis, stage III, patient's wheelchair bound, consult with Dr. Obrien, plan to start vancomycin, consult with Gen. surgery status post excisional debridement. Wound care team consult appreciated and wound VAC ordered. 2. History of Recurrent UTI, none currently, status post cystoscopy, by Dr. Borrego, previous culture positive for E. coli and klebsiella during last cultureson chronic prophylactic antibiotics including nitrofurantoin and Mandelamine 3. Recent fracture left distal femur, orif on 10/23/2020, [facility] 4. Oliguria secondary to end-stage kidney disease, still making 400 mL per day, consult with nephrology, on hemodialysis Monday and Monday 5. Diabetes mellitus type 2, insulin requiring. Continue insulin sliding scale. Continue Lantus 20 units twice a day 6. End-stage renal disease on hemodialysis Monday and Monday, consult Dr. Manrique 7. Chronic diastolic heart failure. Continue hemodialysis. Lasix, metolazone on hold. Continue Toprol-XL. 8. History of aortic stenosis status post TAVR. 9. Hypertension cardiovascular disease. Continue amiodarone 100 mg daily and metoprolol. 10. Paroxysmal atrial fibrillation. Continue amiodarone 100 mg once daily and metoprolol a history of GI bleed no past several years ago, not on any anticoagulation due to increased risk of fall and GI bleeding 11. History of myocardial infarction and coronary artery disease status post LAD stent in July 2017 and left circumflex in August 2017. Continue Toprol-XL 50 mg once daily. 12. GERD continue Protonix. 13. History of hyperlipidemia continue Zetia 10mg daily 14. Obstructive sleep apnea, on CPAP machine at night, along with O2 supplementation. 15. Diabetic peripheral neuropathy continue gabapentin 300 mg twice daily. 17. Recurrent depression. Continue Cymbalta 60 mg orally once daily DVT prophylaxis. Heparin subcu every 12 GI prophylaxis continue Protonix. DISCHARGE PLAN Return to [facility] on Monday or other discharge plan to be determined Impression and plan of care have been directed as dictated by the signing physician. Stella Botello nurse practitioner acting as scribe for signing physician. Objective - Vital Signs Vital signs: Vital Signs Temp 97.7 F 11/08/20 11:30 Pulse 96 11/08/20 11:30 Resp 20 11/08/20 11:30 BP 157/66 11/08/20 11:30 Pulse Ox 94 L 11/08/20 11:30 Intake & Output 11/07/20 11/08/20 11/08/20 18:59 06:59 18:59 Intake Total 1590 490 Output Total 1999 Balance -410 490 Intake: Intake, IV Titration 490 490 Amount Lactated Ringers 1,000 ml 240 @ 20 mls/hr IV .Q24H [facility] Rx#:[id number] Sodium Chloride 0.9% 1, 240 000 ml @ 20 mls/hr IV . 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
[2020-11-08] MEDS: traMADol 50 MG TAB PO PRN ×2 (13:35→21:50)
[2020-11-08 17:16] LABS: Glucose,Whole Blood 169 mg/dL (75-99)
[2020-11-08] MEDS: SODIUM CHLORIDE 0.9% 1,000 ML IV SCH (17:54)
[2020-11-08 20:33] LABS: Glucose,Whole Blood 190 mg/dL (75-99)
--- NOTE | 2020-11-09 07:01 | PN ---
PROGRESS NOTE DATE OF SERVICE: 11/08/2020 REASON FOR FOLLOWUP: Infected sacral pressure ulcer. INTERVAL HISTORY: The patient is afebrile. The patient is breathing comfortably. Denies any chest pain, cough. No abdominal pain. No worsening pain in the sacral wound area. PHYSICAL EXAMINATION: Blood pressure 128/62 with a pulse of 91, temperature of 99.1. She is 98% on 3 L nasal cannula. General description is an elderly female lying in bed in no distress. Respiratory system: Unlabored breathing, clear to auscultation anteriorly. Heart S1, S2. Regular rate and rhythm. Abdomen soft, no tenderness. LABS: Culture positive for Enterococcus Streptococcus and continue along with anaerobes. DIAGNOSTIC IMPRESSION AND PLAN: Patient with infected sacral pressure ulcer status post debridement. Plan is for vancomycin and Flagyl p.o. continue local wound care with wound VAC and follow up in Wound Center with me next week. MMODL / IJN: [id number] / MTDD
[2020-11-09 07:02] LABS: Glucose,Whole Blood 88 mg/dL (75-99)
[2020-11-09] MEDS: LACTATED RINGERS 1,000 ML IV SCH (07:45)
[2020-11-09] MEDS: INSULIN ASPART (NovoLOG) 100 UNIT/ML VIAL SQ SCH ×4 (07:45→20:18)
--- NOTE | 2020-11-09 09:15 | P.DS ---
Providers Date of admission: 10/31/20 17:13 Expected date of discharge: 11/11/20 Attending physician: Mary Colvin Consults: 10/31/20 17:13 Consult Physician Routine Consulting Provider: Margarette Hoffman Consult Reason/Comments: sacral wound Do you want consulting provider notified?: Yes 11/01/20 15:24 Consult Physician Routine Consulting Provider: Tc Manrique Consult Reason/Comments: hemodialyis esrd Do you want consulting provider notified?: Yes 11/03/20 09:16 Consult Physician Routine Consulting Provider: Perla Pierson Consult Reason/Comments: debridement sacral wound Do you want consulting provider notified?: Yes Primary care physician: Stevenson Farias [facility] Course: HISTORY OF PRESENT ILLNESS This is a 74-year-old female patient of Dr. Farias with past medical history of proximal atrial fibrillation, coronary artery disease status post [place], denies any history of COPD or asthma. Uses CPAP at home frequently. chronic diastolic heart failure, diabetes, hyperlipidemia, hypertension, hypertensive cardiovascular disease, end-stage renal disease on hemodialysis Monday and Monday, aortic stenosis status post TAVR in 2017, with h/o multiple urinary tract infection treated by Dr Borrego who also did cystoscopy on 05/22 done for recurrent UIT followed by bactrim for klebsiella and ecoli uti on 06/07/2020 Patient presents to emergency room secondary to sacral pain, was being transported from dialysis back to [facility] on the [place] by [employer] wheelchair van, when patient complained of worsening sacral pain, she had recently fractured distal left femur 10/23/2020 at [facility] and was trasnsfered to [facility] yesterday 11/01 she ws there only less than 12 hrs , which is worse, there is some concern regarding worsening of the sacral wound, and patient is wheelchair bound it was present prior to her admission at [facility]. This wound has been present over the past one month, there is no fever no purulent drainage, however pain is uncontrolled. Patient was subsequently admitted, has been seen by Dr. Hoffman in the past for E. coli UTI and bacteremia, 09/17/2020, patient has CT pelvis without contrast, showing subcutaneous edema over the posterior lower pelvis, and sacrum is slightly increased compared to old examination, no evidence of osteomyelitis, patient was admitted for sacral cellulitis, with sacral decubitus ulcer, with consultation to Dr. Hoffman, IV cefepime blood cultures and sacral wound ulcers to be sent for culture , she does not void as much nearly anuric, not using any depends, appetite low, spoke with daughter wants bipap for use while here, cpap is at [facility]. wants marinol for appetite, and protein supplementation, 11/02: Patient's at that site, pain is slightly better, however she is much more comfortable, overlay mattress was provided hydrocodone when necessary for pain, appetite is much better, no fever no chills, blood sugars are between 185-287, hemoglobin A1c 5.7 creatinine at 3.8 BUN of 49, TSH normal at 0.9 Dr. Easley thinks that no systemic antibiotic therapy is needed for now, on no cold [place] for wound care, no wound VAC recommendation at this time, awaiting cultures. Dialysis, Monday schedule, we will discontinue Seprafilm per recommendations from ID unable to provide urinalysis at this time patient is anuric 11/03: Patient has been seen by Dr. Hoffman with recommendations for general surgery consult for possible debridement of the stage III pressure ulcer. Consult with Dr. Pierson has been added. Patient has been seen by wound team with recommendations for Santyl to be changed daily and recommended weekly wound debridements at the group home or follow up in the wound healing Center as an outpatient. Nephrology is following and continued on hemodialysis on Monday schedule and is scheduled for hemodialysis today. Patient has been afebrile, heart rate 74, blood pressure 112/62, pulse ox 99% on 2 L nasal cannula. Blood sugars are running between 97 and 187. Wound culture is positive for Rosario to the buttocks. Anaerobic culture is in progress. 11/04: She is scheduled for wound debridement today with Dr. Pierson. She has been afebrile, heart rate 83, blood pressure 151/69. Patient is on 2 L nasal cannula she was on BiPAP during the night. Patient is quite sleepy this morning her morphine will be decreased to 2 mg IV. Capillary blood glucose running between 192 and 239. Repeat blood work ordered for tomorrow. Patient is followed by Dr. Hoffman, not currently on IV antibiotics. 11/05: Patient is undergoing hemodialysis today. Yesterday, patient underwent excisional debridement of the sacral decubitus ulcer by Dr. Pierson. Patient is followed by Dr. Hoffman and currently off antibiotics. Patient is seen and followed by the wound care center with plan for wound VAC. Patient has been afebrile, heart rate 80, blood pressure 107/55, pulse ox 90% on 2 L nasal cannula. Anticipate discharge back to [facility] tomorrow. 11/06: Dr. Dye is recommended vancomycin for 3 week course of antibiotics to be given with dialysis. Patient has wound VAC in place and she is placing CPAP. We have made plans for discharge back to [facility] today however insurance authorization is pending following a peer to peer evaluation. Patient has been afebrile, heart rate 79, blood pressure 100/60, pulse ox 100% on 2 L nasal cannula. Blood sugars are running between 99 and 243. Anticipate probable discharge held until Monday once discharge plan has been clarified. 11/07: Patient is found resting comfortably in bed in no distress. Patient has wound VAC in place and she is utilizing her CPAP machine in the evening. Patient states that she would like to stay in the hospital for her treatment rather than going back to [facility] however we will continue with working on insurance authorization for subacute rehab. Patient remains Afebrile, heart rate 92, respirations 18, blood pressure 105/62, pulse ox a 99% on 3 L. 11/08: She was found resting in bed with BiPAP machine in place. Patient continues have wound VAC in place. She will continue with the wound VAC upon discharge. Reluctant to return to [facility]. However she is unable to go home. Discussed with patient in length that she may decide to go to a different extended care facility however she is unable to stand the hospital to complete her course of treatment. 11/09: Patient continues to have wound VAC in place and will continue this at the group home. She is utilizing BiPAP at night and when she sleeps during the day. Patient has been afebrile, heart rate 89, blood pressure 135/65, pulse ox 94% on 2 L nasal cannula. Repeat blood work reveals creatinine 4.02. Vancomycin level XXII. Blood sugars are running between [address] Dye has recommended vancomycin and Flagyl to complete a three-week course. At this time, we're waiting for insurance authorization for discharge to [facility]. 11/10: Patient is seen today on oxygen at 3 L nasal cannula. She denies any shortness of breath. Patient does have significant weakness of the lower extremities. At this time, the family is doing in a pill process for subacute rehab as the insurance company has denied authorization. This will take an additional 72 hours. Patient is utilizing CPAP when sleeping. Regarding her recent femur fracture and ORIF, sutures will be removed and patient will follow- up with her surgeon after discharge. She has been afebrile, heart rate 86, blood pressure 119/52, pulse ox 96% on 2 L nasal cannula. Blood sugars are running between 138 and 207. Vancomycin level XX.3. Patient is on scheduled hemodialysis on Monday. We're currently awaiting appeal process. The insurance company in order to discharge this patient. It does not appear at this time that going home as a safe discharge as patient is extremely weak and has had recent ORIF of the left hip. 11/11: Insurance authorization has been obtained. Discussed with patient's daughter and she is requesting that an x-ray be done on the left hip to determine if patient can have more weight bearing. She is currently nonweightbearing on the left leg. Discussed case with orthopedics in-house and Dr. Howard states that patient should be nonweightbearing for 6 weeks. The patient is found to have a stage III pressure ulcer and a cushion will plan to be ordered by [facility] for her wheelchair. She has been afebrile, heart rate 92, blood pressure 127/57, pulse ox 96% on BiPAP. Patient has been utilizing BiPAP when sleeping and otherwise on nasal cannula. Discussed with Dr. Hoffman and he recommends to continue plan for vancomycin and Flagyl. Blood sugars are running between 101 and 177. Patient will be discharged to [facility] once arrangements are completed. ASSESSMENT AND PLAN 1. Sacral decubitus ulcer with cellulitis, stage III, patient's wheelchair bound status post excisional debridement. 2. Recurrent UTI, status post cystoscopy in past 3. Recent fracture left distal femur, orif on 10/23/2020, [facility] with Dr. Cronin, non-weight bearing on left leg 4. Oliguria secondary to end-stage kidney disease on hemodialysis Monday and Monday 5. Diabetes mellitus type 2, insulin requiring. 6. End-stage renal disease on hemodialysis Monday and Monday 7. Chronic diastolic heart failure. 8. History of aortic stenosis status post TAVR. 9. Hypertension cardiovascular disease. 10. Paroxysmal atrial fibrillation. Not on anticoagulation due to increased risk of fall and GI bleeding 11. History of myocardial infarction and coronary artery disease status post LAD stent in July 2017 and left circumflex in August 2017. 12. GERD 13. History of hyperlipidemia 14. Obstructive sleep apnea, on CPAP machine at night, along with O2 supplementation. 15. Diabetic peripheral neuropathy 17. Recurrent depression. DISCHARGE PLAN Return to [facility] Impression and plan of care have been directed as dictated by the signing physician. Jessenia Gonzalez nurse practitioner acting as scribe for signing physician. Patient Condition at Discharge: Stable Plan - Discharge Summary Discharge Rx Participant: No New Discharge Prescriptions: New Collagenase [Santyl] 1 applic TOPICAL DAILY applic Darbepoetin Aron [Aranesp] 40 mcg SQ Q7D syringe dronabinoL [Marinol] 2.5 mg PO AC-BID #14 cap INSULIN ASPART (NovoLOG) [NovoLOG (formulary)] 0 unit SQ ACHS vial Vancomycin 1,000 mg IVPB MOWEFR #9 bag metroNIDAZOLE [Flagyl] 500 mg PO TID #42 tab Continue DULoxetine HCL [Cymbalta] 60 mg PO DAILY@0900 Amiodarone HCl [Pacerone] 100 mg PO DAILY@0900 Ezetimibe [Zetia] 10 mg PO DAILY@0900 Omeprazole 20 mg PO DAILY@0900 Aspirin [Adult Low Dose Aspirin EC] 81 mg PO DAILY@0900 Metoprolol Succinate (ER) [Toprol XL] 50 mg PO DAILY@0900 Sevelamer [Renvela] 800 mg PO DAILY@0900 INSULIN ASPART (NovoLOG) [NovoLOG (formulary)] See Protocol SQ ACHS Insulin Glargine,Hum.rec.anlog [Semglee Pen] 20 units SQ BID@0800,2100 Gabapentin 300 mg PO BID@0900,2100 #14 cap traMADol HCL 50 mg PO Q6H PRN #28 tab PRN Reason: Pain Discontinued Levofloxacin [Levaquin] 500 mg PO DAILY@0900 Discharge Medication List DULoxetine HCL [Cymbalta] 60 mg PO DAILY@0900 08/04/14 [History] Amiodarone HCl [Pacerone] 100 mg PO DAILY@89911/22/15 [History] Ezetimibe [Zetia] 10 mg PO DAILY@89911/22/15 [History] Omeprazole 20 mg PO DAILY@89912/25/16 [History] Aspirin [Adult Low Dose Aspirin EC] 81 mg PO DAILY@0900 03/02/18 [History] Metoprolol Succinate (ER) [Toprol XL] 50 mg PO DAILY@89901/12/20 [History] Sevelamer [Renvela] 800 mg PO DAILY@89901/12/20 [History] INSULIN ASPART (NovoLOG) [NovoLOG (formulary)] See Protocol SQ ACHS 10/22/20 [History] Insulin Glargine,Hum.rec.anlog [Semglee Pen] 20 units SQ BID@0800,2100 10/31/20 [History] Collagenase [Santyl] 1 applic TOPICAL DAILY applic 11/06/20 [Rx] Darbepoetin Aron [Aranesp] 40 mcg SQ Q7D syringe 11/06/20 [Rx] Gabapentin 300 mg PO BID@0900,2100 #14 cap 11/06/20 [Rx] INSULIN ASPART (NovoLOG) [NovoLOG (formulary)] 0 unit SQ ACHS vial 11/06/20 [Rx] Vancomycin 1,000 mg IVPB MOWEFR #9 bag 11/06/20 [Rx] dronabinoL [Marinol] 2.5 mg PO AC-BID #14 cap 11/06/20 [Rx] metroNIDAZOLE [Flagyl] 500 mg PO TID #42 tab 11/06/20 [Rx] traMADol HCL 50 mg PO Q6H PRN #28 tab 11/06/20 [Rx] Follow up Appointment(s)/Referral(s): Jon Cronin DO [REFERRING] - 1 Week (Follow-up he had trauma clinic at [phone]) Margarette Hoffman MD [STAFF PHYSICIAN] - 3 Weeks Stevenson Farias MD [Primary Care Provider] - 1 Week (AFTER DISCHARGE FROM [facility] The office did not answer please call and make follow up appointment.) Activity/Diet/Wound Care/Special Instructions: Non weight bearing for 6 weeks from date of surgery Patient will require a special wheelchair cushion, Roho cushion, when in her wheelchair. nurse please call and notify pt daughter when d/c follow up with Dr hoffman in the wound care next week call [phone] to make an appointment Discharge Disposition: TRANSFER TO SNF/ECF
[2020-11-09] MEDS: traMADol 50 MG TAB PO PRN (09:34)
[2020-11-09] MEDS: METOPROLOL SUCCINATE (ER) 50 MG TAB.ER.24H PO SCH (09:35)
[2020-11-09] MEDS: GABAPENTIN 300 MG CAP PO SCH ×2 (09:35→20:18)
[2020-11-09] MEDS: SEVELAMER 800 MG TAB PO SCH (09:36)
[2020-11-09] MEDS: DULoxetine HCL 60 MG CAPSULE.DR PO SCH (09:36)
[2020-11-09] MEDS: ASPIRIN 81 MG PO SCH (09:36)
[2020-11-09] MEDS: COLLAGENASE 250 UNIT/GM OINTMENT 30 GM TUBE TOPICAL SCH (09:37)
[2020-11-09] MEDS: HEPARIN SODIUM,PORCINE/PF 5,000 UNIT/0.5 ML SYRINGE SQ SCH ×2 (09:37→20:18)
[2020-11-09] MEDS: PANTOPRAZOLE 40 MG TABLET PO SCH (09:37)
[2020-11-09] MEDS: EZETIMIBE 10 MG TAB PO SCH (09:40)
[2020-11-09] MEDS: AMIODARONE 100 MG TAB PO SCH (09:40)
[2020-11-09] MEDS: INSULIN DETEMIR (LEVEMIR) 100 UNIT/ML SYR SQ SCH ×2 (09:40→20:47)
[2020-11-09] MEDS: MORPHINE SULFATE 2 MG/ML SYRINGE IVP PRN (10:47)
[2020-11-09] MEDS: DARBEPOETIN ALFA 40 MCG/0.4 ML SYRINGE SQ SCH (11:16)
[2020-11-09 11:49] LABS: Glucose,Whole Blood 97 mg/dL (75-99)
[2020-11-09 14:24] VITALS: BMI 26.6
--- NOTE | 2020-11-09 15:41 | P.PN ---
Subjective Progress Note Date: 11/09/20 HISTORY OF PRESENT ILLNESS This is a 74-year-old female patient of Dr. Farias with past medical history of proximal atrial fibrillation, coronary artery disease status post GA, denies any history of COPD or asthma. Uses CPAP at home frequently. chronic diastolic heart failure, diabetes, hyperlipidemia, hypertension, hypertensive cardiovascular disease, end-stage renal disease on hemodialysis Monday and Monday, aortic stenosis status post TAVR in 2018, with h/o multiple urinary tract infection treated by Dr Borrego who also did cystoscopy on 05/22 done for recurrent UIT followed by bactrim for klebsiella and ecoli uti on 06/07/2020 Patient presents to emergency room secondary to sacral pain, was being transported from dialysis back to [facility] on the [place] [facility] [employer] wheelchair van, when patient complained of worsening sacral pain, she had recently fracture d distal left femur 10/23/2020 at [facility] and was trasnsfered to [facility] yesterday 11/01 she ws there only less than 12 hrs , which is worse, there is some concern regarding worsening of the sacral wound, and patient is wheelchair bound it was present prior to her admission at [facility]. This wound has been present over the past one month, there is no fever no purulent drainage, however pain is uncontrolled. Patient was subsequently admitted, has been seen by Dr. Obrien in the past for E. coli UTI and bacteremia, 09/17/2020, patient has CT pelvis without contrast, showing subcutaneous edema over the posterior lower pelvis, and sacrum is slightly increased compared to old examination, no evidence of osteomyelitis, patient was admitted for sacral cellulitis, with sacral decubitus ulcer, with consultation to Dr. Obrien, IV cefepime blood cultures and sacral wound ulcers to be sent for culture , she does not void as much nearly anuric, not using any depends, appetite low, spoke with daughter wants bipap for use while here, cpap is at [facility]. wants marinol for appetite, and protein s upplementation, 11/02: Patient's at that site, pain is slightly better, however she is much more comfortable, overlay mattress was provided hydrocodone when necessary for pain, appetite is much better, no fever no chills, blood sugars are between 185-287, hemoglobin A1c 5.7 creatinine at 3.8 BUN of 49, TSH normal at 0.9 Dr. Easley thinks that no systemic antibiotic therapy is needed for now, on no cold [place] for wound care, no wound VAC recommendation at this time, awaiting cultures. Dialysis, Monday schedule, we will discontinue Seprafilm per recommendations from ID unable to provide urinalysis at this time patient is anuric 11/03: Patient has been seen by Dr. Obrien with recommendations for general surgery consult for possible debridement of the stage III pressure ulcer. Consult with Dr. Pierson has been added. Patient has been seen by wound team with recommendations for Santyl to be changed daily and recommended [facility] or follow up in the [facility] healing Center as an outpatient. Nephrology is following and continued on hemodialysis on Monday schedule and is scheduled for hemodialysis today. Patient has been afebrile, heart rate 74, blood pressure 112/62, pulse ox 99% on 2 L nasal cannula. Blood sugars are running between 97 and 187. Wound culture is positive for Rosario to the buttocks. Anaerobic culture is in progress. 11/04: She is scheduled for wound debridement today with Dr. Pierson. She has been afebrile, heart rate 83, blood pressure 151/69. Patient is on 2 L nasal cannula she was on BiPAP during the night. Patient is quite sleepy this morning her morphine will be decreased to 2 mg IV. Capillary blood glucose running between 192 and 239. Repeat blood work ordered for tomorrow. Patient is followed by Dr. Obrien, not currently on IV antibiotics. 11/05: Patient is undergoing hemodialysis today. Yesterday, patient underwent excisional debridement of the sacral decubitus ulcer by Dr. Pierson. Patient is followed by Dr. Obrien and currently off antibiotics. Patient is seen and fo llowed by the wound care center with plan for wound VAC. Patient has been afebrile, heart rate 80, blood pressure 107/55, pulse ox 90% on 2 L nasal cannula. Anticipate discharge back to [facility] tomorrow. 11/06: Dr. Dye is recommended vancomycin for 3 week course of antibiotics to be given with dialysis. Patient has wound VAC in place and she is placing CPAP. We have made plans for discharge back to [facility] today however insurance authorization is pending following a peer to peer evaluation. Patient has been afebrile, heart rate 79, blood pressure 100/60, pulse ox 100% on 2 L nasal cannula. Blood sugars are running between 99 and 243. Anticipate probable discharge held until Monday once discharge plan has been clarified. 11/07: Patient is found resting comfortably in bed in no distress. Patient has wound VAC in place and she is utilizing her CPAP machine in the evening. Patient states that she would like to stay in the hospital for her treatment rather than going back to [facility] however we will continue with working on insurance authorization for subacute rehab. Patient remains Afebrile, heart rate 92, respirations 18, blood pressure 105/62, pulse ox a 99% on 3 L. 11/08: She was found resting in bed with BiPAP machine in place. Patient continues have wound VAC in place. She will continue with the wound VAC upon discharge. Reluctant to return to [facility]. However she is unable to go home. Discussed with patient in length that she may decide to go to a different [facility] care facility however she is unable to stand the hospital to complete her course of treatment. 11/09: Patient continues to have wound VAC in place and will [facility]. She is utilizing BiPAP at night and when she sleeps during the day. Patient has been afebrile, heart rate 89, blood pressure 135/65, pulse ox 94% on 2 L nasal cannula. Repeat blood work reveals creatinine 4.02. Vancomycin level XXII. Blood sugars are running between [address] Dye has recommended vancomycin and Flagyl to complete a three-week course. At this time, we're waiting for insurance authorization for discharge to [facility]. REVIEW OF SYSTEMS Constitutional: Reports as per HPI, Reports chills, Denies anorexia, Denies chronic headaches, Denies chronic pain, Denies daytime sleepiness, Denies fatigue, Denies fever, Denies lethargy, Denies malaise, Denies night sweats, Denies poor appetite, Denies sweats, Denies weakness, Denies weight gain, Denies weight loss Ears, nose, mouth and throat: Reports as per HPI Cardiovascular: Reports as per HPI, Reports dyspnea on exertion, Reports edema Respiratory: Reports as per HPI, Denies cough Gastrointestinal: Reports as per HPI, Reports constipation, Denies excessive gas, Denies heartburn, Denies indigestion, Denies vomiting Genitourinary: Reports as per HPI, Reports pelvic pain, Reports stress incontinence, Denies genital sores Musculoskeletal: Reports as per HPI Integumentary: Reports as per HPI, Reports wounds Neurological: Reports as per HPI Psychiatric: Reports as per HPI, Reports anxiety attacks, Denies anhedonia, Denies anxiety, Denies change in appetite, Denies change in sleep habits, Denies confusion, Denies depression, Denies difficulty concentrating, Denies disor ientation, Denies hallucinations, Denies hopelessness, Denies hypersomnia, Denies insomnia, Denies irritability, Denies memory loss, Denies mood swings, Denies paranoia, Denies sadness/tearfulness, Denies sleep disturbances, Denies suicidal ideation Endocrine: Reports fatigue, blood sugar slightly high PHYSICAL EXAMINATION Gen: This is a 75 year old obese female. Patient is resting in bed and appears to be comfortable at rest. HEENT: Head is atraumatic, normocephalic. Pupils equal, round. Sclerae is anicteric. NECK: Supple. No JVD. No lymphadenopathy. No thyromegaly. LUNGS: Clear to auscultation. No wheezes or rhonchi. No intercostal retractions. HEART: Regular rate and rhythm. Systolic ejection murmur at the base. ABDOMEN: Soft. Bowel sounds are present. No masses. No tenderness. SKIN: Stage III decubitus ulcer to coccyx. EXTREMITIES: No pedal edema. No calf tenderness. NEUROLOGICAL: Patient is awake, alert and oriented x3. Cranial nerves 2 through 12 are grossly intact. ASSESSMENT AND PLAN 1. Sacral decubitus ulcer with cellulitis, stage III, patient's wheelchair bound, consult with Dr. Obrien, off antibiotics, consult with Gen. surgery status post excisional debridement. Wound care team consult appreciated and wound VAC ordered. 2. History of Recurrent UTI, none currently, status post cystoscopy, by Dr. Borrego, previous culture positive for E. coli and klebsiella during last cultureson chronic prophylactic antibiotics including nitrofurantoin and Mandelamine 3. Recent fracture left distal femur, orif on 10/23/2020, [facility] 4. Oliguria secondary to end-stage kidney disease, still making 400 mL per day, consult with nephrology, on hemodialysis Monday and Monday 5. Diabetes mellitus type 2, insulin requiring. Continue insulin sliding scale. Continue Lantus 20 units twice a day 6. End-stage renal disease on hemodialysis Monday and Monday, consult Dr. Manrique 7. Chronic diastolic heart failure. Continue hemodialysis. Lasix, metolazone on hold. Continue Toprol-XL. 8. History of aortic stenosis status post TAVR. 9. Hypertension cardiovascular disease. Continue amiodarone 100 mg daily and metoprolol. 10. Paroxysmal atrial fibrillation. Continue amiodarone 100 mg once daily and metoprolol a history of GI bleed no past several years ago, not on any anticoagulation due to increased risk of fall and GI bleeding 11. History of myocardial infarction and coronary artery disease status post LAD stent in July 2017 and left circumflex in August 2017. Continue Toprol-XL 50 mg once daily. 12. GERD continue Protonix. 13. History of hyperlipidemia continue Zetia 10mg daily 14. Obstructive sleep apnea, on CPAP machine at night, along with O2 supplementation. 15. Diabetic peripheral neuropathy continue gabapentin 300 mg twice daily. 17. Recurrent depression. Continue Cymbalta 60 mg orally once daily DVT prophylaxis. Heparin subcu every 12 GI prophylaxis continue Protonix. DISCHARGE PLAN [facility] to [facility] once insurance authorization has been obtained Impression and plan of care have been directed as dictated by the signing physician. Jessenia Gonzalez nurse practitioner acting as scribe for signing physician. Objective - Vital Signs Vital signs: Vital Signs Temp 98.7 F 11/09/20 11:14 Pulse 89 11/09/20 11:14 Resp 18 11/09/20 11:14 BP 135/65 11/09/20 11:14 Pulse Ox 94 L 11/09/20 11:14 Intake & Output 11/08/20 11/09/20 11/09/20 18:59 06:59 18:59 Intake Total 250 490 Balance 250 490 Weight 66 kg Intake: Intake, IV Titration 250 490 Amount Sodium Chloride 0.9% 1, 240 000 ml @ 20 mls/hr IV . Q24H [facility] Rx#:[id number] Vancomycin 1,000 mg In 250 250 Sodium Chloride 0.9% 250 ml @ 125 mls/hr IVPB ONCE ONE Rx#:[id number] Other: Voiding Method Diaper Diaper Diaper - Labs CBC & Chem 7: 11/02/20 05:04 11/09/20 06:39 Labs: Abnormal Lab Results - Last 24 Hours (Table) 11/08/20 11/08/20 11/09/20 Range/Units 17:14 20:32 06:39 Creatinine 4.02 H (0.52-1.04) mg/dL POC Glucose (mg/dL) 169 H 190 H (75-99) mg/dL Microbiology - Last 24 Hours (Table) 11/04/20 16:00 Anaerobic Culture - Final Buttock 11/04/20 16:00 Anaerobic Culture - Final Buttock
[2020-11-09] MEDS: SODIUM CHLORIDE 0.9% 1,000 ML IV SCH (16:27)
[2020-11-09 16:57] LABS: Glucose,Whole Blood 156 mg/dL (75-99)
--- NOTE | 2020-11-09 18:17 | PN ---
PROGRESS NOTE Patient is seen for followup for end-stage renal disease. She is maintained on a Monday, , Monday schedule for dialysis. This morning she is complaining of significant pain. She is awake, alert, not in any acute distress. PHYSICAL EXAMINATION: Blood pressure is 135/65, heart rate 89 per minute. Patient is afebrile. Examination of the heart S1, S2. Examination of lungs, decreased breath sounds at bases. Abdomen is soft, nontender. Examination of lower extremities shows no evidence of edema. VENETIAN BLIND MECHANIC exam grossly intact. ASSESSMENT: 1. End-stage renal disease, on hemodialysis on a Monday, , Monday schedule. 2. Sacral wound status post antibiotics and I and D, being followed by infectious disease and surgery. 3. History of recent UTI and Escherichia coli bacteremia. 4. Chronic kidney disease, mineral bone disorder. 5. Anemia of chronic disease, maintained on Aranesp. 6. Generalized debility. PLAN: Hemodialysis in a.m. MMODL / IJN: [id number] /
[2020-11-09 19:49] LABS: Glucose,Whole Blood 207 mg/dL (75-99)
--- NOTE | 2020-11-09 23:24 | PN ---
PROGRESS NOTE DATE OF SERVICE: 11/09/2020 REASON FOR FOLLOWUP: Infected sacral pressure ulcer. INTERVAL HISTORY: Patient is afebrile. The patient is breathing comfortably. Denies having any chest pain, shortness of breath or cough. No abdominal pain or worsening pain in the sacral wound area. PHYSICAL EXAMINATION: Blood pressure 132/73 with a pulse of 90, temperature 98.7. She is 90% on 2 L nasal cannula. GENERAL DESCRIPTION: Is an elderly female, lying in bed, in no distress. RESPIRATORY SYSTEM: Unlabored breathing, clear to auscultation anteriorly. HEART: S1, S2. Regular rate and rhythm. ABDOMEN: Soft. No tenderness. LABS: Creatinine 4.0, Vanco was 22. IMPRESSION/PLAN: Patient with infected sacral pressure ulcer status post surgical debridement, culture predominate Staph Enterococcus and anaerobes. She is on vancomycin, Pharmacy to dose through dialysis along with oral Flagyl to continue for another 2-3 weeks. Local wound care with wound VAC and close outpatient followup. Prescription provided to the renal case manager. MMLULAL / IJN: [id number] /
[2020-11-10 07:29] LABS: Glucose,Whole Blood 169 mg/dL (75-99)
[2020-11-10] MEDS: INSULIN DETEMIR (LEVEMIR) 100 UNIT/ML SYR SQ SCH ×2 (08:07→21:50)
[2020-11-10] MEDS: INSULIN ASPART (NovoLOG) 100 UNIT/ML VIAL SQ SCH ×4 (08:08→21:51)
[2020-11-10] MEDS: ASPIRIN 81 MG PO SCH (08:08)
[2020-11-10] MEDS: AMIODARONE 100 MG TAB PO SCH ×2 (08:08→15:02)
[2020-11-10] MEDS: SEVELAMER 800 MG TAB PO SCH (08:09)
[2020-11-10] MEDS: HEPARIN SODIUM,PORCINE/PF 5,000 UNIT/0.5 ML SYRINGE SQ SCH ×2 (08:09→21:51)
[2020-11-10] MEDS: DULoxetine HCL 60 MG CAPSULE.DR PO SCH (08:09)
[2020-11-10] MEDS: EZETIMIBE 10 MG TAB PO SCH (08:09)
[2020-11-10] MEDS: PANTOPRAZOLE 40 MG TABLET PO SCH (08:09)
[2020-11-10] MEDS: METOPROLOL SUCCINATE (ER) 50 MG TAB.ER.24H PO SCH ×2 (08:09→15:02)
[2020-11-10] MEDS: GABAPENTIN 300 MG CAP PO SCH ×2 (08:10→21:51)
[2020-11-10] MEDS: LACTATED RINGERS 1,000 ML IV SCH (08:12)
[2020-11-10 11:23] LABS: Glucose,Whole Blood 138 mg/dL (75-99)
--- NOTE | 2020-11-10 13:57 | PN ---
PROGRESS NOTE Patient is seen for followup for end-stage renal disease. She is currently lying in bed, comfortable. PHYSICAL EXAMINATION: Patient is awake, alert, oriented x3, not in any acute distress. Blood pressure was 119/52, heart rate 86 per minute, she is afebrile. Examination of the heart S1, S2. Examination of the lungs, bilateral breath sounds are heard. Abdomen is soft, nontender. Examination of lower extremities shows no evidence of edema. SOAKER SODA WORKER exam grossly intact. ASSESSMENT: 1. End-stage renal disease, on hemodialysis on a Monday, , Monday schedule. 2. Sacral decubitus ulcer, maintained on antibiotics status post I and D. 3. Generalized debility. 4. Hyperkalemia, expect status post hemodialysis. 5. Chronic kidney disease mineral bone disorder. PLAN: Hemodialysis today. Goal UF 1-2 L. Encourage increased oral intake. MMODL / IJN: [id number] /
--- NOTE | 2020-11-10 14:01 | PN ---
PROGRESS NOTE DATE OF SERVICE: 11/10/2020 REASON FOR FOLLOWUP: Infected sacral pressure ulcer. INTERVAL HISTORY: Patient is afebrile. The patient is breathing comfortably, currently undergoing hemodialysis. No chest pain, shortness of breath or cough. No abdominal pain or any worsening pain to the sacral wound area. PHYSICAL EXAMINATION: Blood pressure 119/52 with a pulse of 86, temperature 98.6. She is 96% on 2 L nasal cannula. General description is an elderly female lying in bed in no distress. Respiratory system: Unlabored breathing. Clear to auscultation anteriorly. Heart S1, S2. Regular rate and rhythm. Abdomen soft, no tenderness. LABS: No new labs have been obtained today. DIAGNOSTIC IMPRESSION AND PLAN: Patient with infected sacral pressure ulcer status post debridement. Culture did show enterococcus Staph and anaerobes. Plan is for vancomycin, Pharmacy to dose, along with oral Flagyl. Local wound care with wound VAC and follow up in the [facility] within 1 week post discharge. MMODL / IJN: [id number] / MTDD
[2020-11-10] MEDS: COLLAGENASE 250 UNIT/GM OINTMENT 30 GM TUBE TOPICAL SCH (15:02)
--- NOTE | 2020-11-10 15:12 | P.PN ---
Subjective Progress Note Date: 11/10/20 HISTORY OF PRESENT ILLNESS This is a 74-year-old female patient of Dr. Farias with past medical history of proximal atrial fibrillation, coronary artery disease status post FL, denies any history of COPD or asthma. Uses CPAP at home frequently. chronic diastolic heart failure, diabetes, hyperlipidemia, hypertension, hypertensive cardiovascular disease, end-stage renal disease on hemodialysis Monday and Monday, aortic stenosis status post TAVR in 2018, with h/o multiple urinary tract infection treated by Dr Borrego who also did cystoscopy on 05/22 done for recurrent UIT followed by bactrim for klebsiella and ecoli uti on 06/07/2020 Patient presents to emergency room secondary to sacral pain, was being transported from dialysis back to [facility] on the [place] [facility] [employer] wheelchair van, when patient complained of worsening sacral pain, she had recently fracture d distal left femur 10/23/2020 at [facility] and was trasnsfered to [facility] yesterday 11/01 she ws there only less than 12 hrs , which is worse, there is some concern regarding worsening of the sacral wound, and patient is wheelchair bound it was present prior to her admission at [facility]. This wound has been present over the past one month, there is no fever no purulent drainage, however pain is uncontrolled. Patient was subsequently admitted, has been seen by Dr. Obrien in the past for E. coli UTI and bacteremia, 09/17/2020, patient has CT pelvis without contrast, showing subcutaneous edema over the posterior lower pelvis, and sacrum is slightly increased compared to old examination, no evidence of osteomyelitis, patient was admitted for sacral cellulitis, with sacral decubitus ulcer, with consultation to Dr. Obrien, IV cefepime blood cultures and sacral wound ulcers to be sent for culture , she does not void as much nearly anuric, not using any depends, appetite low, spoke with daughter wants bipap for use while here, cpap is at [facility]. wants marinol for appetite, and protein s upplementation, 11/02: Patient's at that site, pain is slightly better, however she is much more comfortable, overlay mattress was provided hydrocodone when necessary for pain, appetite is much better, no fever no chills, blood sugars are between 185-287, hemoglobin A1c 5.7 creatinine at 3.8 BUN of 49, TSH normal at 0.9 Dr. Easley thinks that no systemic antibiotic therapy is needed for now, on no cold [place] for wound care, no wound VAC recommendation at this time, awaiting cultures. Dialysis, Monday schedule, we will discontinue Seprafilm per recommendations from ID unable to provide urinalysis at this time patient is anuric 11/03: Patient has been seen by Dr. Obrien with recommendations for general surgery consult for possible debridement of the stage III pressure ulcer. Consult with Dr. Pierson has been added. Patient has been seen by wound team with recommendations for Santyl to be changed daily and recommended weekly wound debridements at the long-term or follow up in the wound healing Center as an outpatient. Nephrology is following and continued on hemodialysis on Monday schedule and is scheduled for hemodialysis today. Patient has been afebrile, heart rate 74, blood pressure 112/62, pulse ox 99% on 2 L nasal cannula. Blood sugars are running between 97 and 187. Wound culture is positive for Rosario to the buttocks. Anaerobic culture is in progress. 11/04: She is scheduled for wound debridement today with Dr. Pierson. She has been afebrile, heart rate 83, blood pressure 151/69. Patient is on 2 L nasal cannula she was on BiPAP during the night. Patient is quite sleepy this morning her morphine will be decreased to 2 mg IV. Capillary blood glucose running between 192 and 239. Repeat blood work ordered for tomorrow. Patient is followed by Dr. Obrien, not currently on IV antibiotics. 11/05: Patient is undergoing hemodialysis today. Yesterday, patient underwent excisional debridement of the sacral decubitus ulcer by Dr. Pierson. Patient is followed by Dr. Obrien and currently off antibiotics. Patient is seen and fo llowed by the wound care center with plan for wound VAC. Patient has been afebrile, heart rate 80, blood pressure 107/55, pulse ox 90% on 2 L nasal cannula. Anticipate discharge back to [facility] tomorrow. 11/06: Dr. Dye is recommended vancomycin for 3 week course of antibiotics to be given with dialysis. Patient has wound VAC in place and she is placing CPAP. We have made plans for discharge back to [facility] today however insurance authorization is pending following a peer to peer evaluation. Patient has been afebrile, heart rate 79, blood pressure 100/60, pulse ox 100% on 2 L nasal cannula. Blood sugars are running between 99 and 243. Anticipate probable discharge held until Monday once discharge plan has been clarified. 11/07: Patient is found resting comfortably in bed in no distress. Patient has wound VAC in place and she is utilizing her CPAP machine in the evening. Patient states that she would like to stay in the hospital for her treatment rather than going back to [facility] however we will continue with working on insurance authorization for subacute rehab. Patient remains Afebrile, heart rate 92, respirations 18, blood pressure 105/62, pulse ox a 99% on 3 L. 11/08: She was found resting in bed with BiPAP machine in place. Patient continues have wound VAC in place. She will continue with the wound VAC upon discharge. Reluctant to return to [facility]. However she is unable to go home. Discussed with patient in length that she may decide to go to a different [facility] care facility however she is unable to stand the hospital to complete her course of treatment. 11/09: Patient continues to have wound VAC in place and will continue this at the long-term. She is utilizing BiPAP at night and when she sleeps during the day. Patient has been afebrile, heart rate 89, blood pressure 135/65, pulse ox 94% on 2 L nasal cannula. Repeat blood work reveals creatinine 4.02. Vancomycin level XXII. Blood sugars are running between [address] Dye has recommended vancomycin and Flagyl to complete a three-week course. At this time, we're waiting for insurance authorization for discharge to [facility]. 11/10: Patient is seen today on oxygen at 3 L nasal cannula. She denies any shortness of breath. Patient does have significant weakness of the lower extre mities. At this time, the family is doing in a pill process for subacute rehab as the insurance company has denied authorization. This will take an additional 72 hours. Patient is utilizing CPAP when sleeping. Regarding her recent femur fracture and ORIF, sutures will be removed and patient will follow-up with her surgeon after discharge. She has been afebrile, heart rate 86, blood pressure 1 19/52, pulse ox 96% on 2 L nasal cannula. Blood sugars are running between 138 and 207. Vancomycin level XX.3. Patient is on scheduled hemodialysis on Monday. We're currently awaiting appeal process. The insurance company in order to discharge this patient. It does not appear at this time that going home as a safe discharge as patient is extremely weak and has had recent ORIF of the left hip. REVIEW OF SYSTEMS Constitutional: Reports as per HPI, Reports chills, Denies anorexia, Denies chronic headaches, Denies chronic pain, Denies daytime sleepiness, Denies fatigue, Denies fever, Denies lethargy, Denies malaise, Denies night sweats, Denies poor appetite, Denies sweats, Denies weakness, Denies weight gain, Denies weight loss Ears, nose, mouth and throat: Reports as per HPI Cardiovascular: Reports as per HPI, Reports dyspnea on exertion, Reports edema Respiratory: Reports as per HPI, Denies cough Gastrointestinal: Reports as per HPI, Reports constipation, Denies excessive gas, Denies heartburn, Denies indigestion, Denies vomiting Genitourinary: Reports as per HPI, Reports pelvic pain, Reports stress incontine nce, Denies genital sores Musculoskeletal: Reports as per HPI Integumentary: Reports as per HPI, Reports wounds Neurological: Reports as per HPI Psychiatric: Reports as per HPI, Reports anxiety attacks, Denies anhedonia, Denies anxiety, Denies change in appetite, Denies change in sleep habits, Denies confusion, Denies depression, Denies difficulty concentrating, Denies disorientation, Denies hallucinations, Denies hopelessness, Denies hypersomnia, Denies insomnia, Denies irritability, Denies memory loss, Denies mood swings, Denies paranoia, Denies sadness/tearfulness, Denies sleep disturbances, Denies suicidal ideation Endocrine: Reports fatigue, blood sugar slightly high PHYSICAL EXAMINATION Gen: This is a 75 year old obese female. Patient is resting in bed and appears to be comfortable at rest. HEENT: Head is atraumatic, normocephalic. Pupils equal, round. Sclerae is anicteric. NECK: Supple. No JVD. No lymphadenopathy. No thyromegaly. LUNGS: Clear to auscultation. No wheezes or rhonchi. No intercostal retractions. HEART: Regular rate and rhythm. Systolic ejection murmur at the base. ABDOMEN: Soft. Bowel sounds are present. No masses. No tenderness. SKIN: Stage III decubitus ulcer to coccyx. EXTREMITIES: No pedal edema. No calf tenderness. NEUROLOGICAL: Patient is awake, alert and oriented x3. Cranial nerves 2 through 12 are grossly intact. ASSESSMENT AND PLAN 1. Sacral decubitus ulcer with cellulitis, stage III, patient's wheelchair bound, consult with Dr. Obrien, off antibiotics, consult with Gen. surgery status post excisional debridement. Wound care team consult appreciated and wound VAC ordered. 2. History of Recurrent UTI, none currently, status post cystoscopy, by Dr. Borrego, previous culture positive for E. coli and klebsiella during last cultureson chronic prophylactic antibiotics including nitrofurantoin and Mandelamine 3. Recent fracture left distal femur, orif on 10/23/2020, [facility]. Ava to be removed. 4. Oliguria secondary to end-stage kidney disease, still making 400 mL per day, consult with nephrology, on hemodialysis Monday and Monday 5. Diabetes mellitus type 2, insulin requiring. Continue insulin sliding scale. Continue Lantus 20 units twice a day 6. End-stage renal disease on hemodialysis Monday and Monday, consult Dr. Manrique 7. Chronic diastolic heart failure. Continue hemodialysis. Lasix, metolazone on hold. Continue Toprol-XL. 8. History of aortic stenosis status post TAVR. 9. Hypertension cardiovascular disease. Continue amiodarone 100 mg daily and metoprolol. 10. Paroxysmal atrial fibrillation. Continue amiodarone 100 mg once daily and metoprolol a history of GI bleed no past several years ago, not on any anticoagulation due to increased risk of fall and GI bleeding 11. History of myocardial infarction and coronary artery disease status post LAD stent in July 2017 and left circumflex in August 2017. Continue Toprol-XL 50 mg once daily. 12. GERD continue Protonix. 13. History of hyperlipidemia continue Zetia 10mg daily 14. Obstructive sleep apnea, on CPAP machine at night, along with O2 supplementation. 15. Diabetic peripheral neuropathy continue gabapentin 300 mg twice daily. 17. Recurrent depression. Continue Cymbalta 60 mg orally once daily. DVT prophylaxis. Heparin subcu every 12 GI prophylaxis continue Protonix. DISCHARGE PLAN To be determined once insurance authorization has been obtained Impression and plan of care have been directed as dictated by the signing physician. Jessenia Gonzalez nurse practitioner acting as scribe for signing physician. Objective - Vital Signs Vital signs: Vital Signs Temp 98.0 F 11/10/20 04:24 Pulse 84 11/10/20 08:27 Resp 24 11/10/20 08:27 BP 103/53 11/10/20 08:27 Pulse Ox 95 11/10/20 08:27 Intake & Output 11/09/20 11/10/20 11/10/20 18:59 06:59 18:59 Intake Total 160 400 Balance 160 400 Weight 66 kg 53.5 kg Intake: Intake, IV Titration 160 200 Amount Sodium Chloride 0.9% 1, 160 200 000 ml @ 20 mls/hr IV . Q24H [facility] Rx#:[id number] Oral 200 Other: Voiding Method Diaper Diaper # Bowel Movements 2 - Labs CBC & Chem 7: 11/02/20 05:04 11/09/20 06:39 Labs: Abnormal Lab Results - Last 24 Hours (Table) 11/09/20 11/09/20 11/10/20 Range/Units 16:55 19:48 07:27 POC Glucose (mg/dL) 156 H 207 H 169 H (75-99) mg/dL
[2020-11-10] MEDS: MORPHINE SULFATE 2 MG/ML SYRINGE IVP PRN ×2 (15:45→23:26)
[2020-11-10 17:07] LABS: Glucose,Whole Blood 146 mg/dL (75-99)
[2020-11-10] MEDS ORDERED: VANCOMYCIN 1,000 MG in SODIUM CHLORIDE 0.9% 250 ML IVPB ONE (18:00)
[2020-11-10] MEDS: SODIUM CHLORIDE 0.9% 1,000 ML IV SCH (18:18)
[2020-11-10 20:08] LABS: Glucose,Whole Blood 177 mg/dL (75-99)
[2020-11-10 22:01] LABS: Hepatitis B Surface AB- Quant <3.5 mIU/mL; Hepatitis B Surface Antibody Non-Reactive (Non-Reactive); Hepatitis B Surface Antigen Non-Reactive (Non-Reactive)
[2020-11-11 06:54] LABS: Glucose,Whole Blood 101 mg/dL (75-99)
[2020-11-11] MEDS: LACTATED RINGERS 1,000 ML IV SCH (08:50)
[2020-11-11] MEDS: INSULIN DETEMIR (LEVEMIR) 100 UNIT/ML SYR SQ SCH (08:55)
[2020-11-11] MEDS: INSULIN ASPART (NovoLOG) 100 UNIT/ML VIAL SQ SCH ×2 (08:55→13:37)
[2020-11-11] MEDS: HEPARIN SODIUM,PORCINE/PF 5,000 UNIT/0.5 ML SYRINGE SQ SCH (09:02)
[2020-11-11] MEDS: PANTOPRAZOLE 40 MG TABLET PO SCH (09:02)
[2020-11-11] MEDS: SEVELAMER 800 MG TAB PO SCH (09:02)
[2020-11-11] MEDS: ASPIRIN 81 MG PO SCH (09:02)
[2020-11-11] MEDS: GABAPENTIN 300 MG CAP PO SCH (09:02)
[2020-11-11] MEDS: DULoxetine HCL 60 MG CAPSULE.DR PO SCH (09:03)
[2020-11-11] MEDS: traMADol 50 MG TAB PO PRN (09:03)
[2020-11-11] MEDS: METOPROLOL SUCCINATE (ER) 50 MG TAB.ER.24H PO SCH (09:03)
[2020-11-11] MEDS: AMIODARONE 100 MG TAB PO SCH (09:06)
[2020-11-11] MEDS: EZETIMIBE 10 MG TAB PO SCH (09:06)
[2020-11-11 11:06] LABS: Glucose,Whole Blood 152 mg/dL (75-99)
[2020-11-11 11:09] VITALS: BP 118/61; PULSE 88; RESP 18; TEMP 98.6
--- NOTE | 2020-11-11 12:15 | PN ---
PROGRESS NOTE Patient is seen for followup for end-stage renal disease. She is currently lying in bed. She is comfortable but lethargic. Patient is scheduled for hemodialysis tomorrow. PHYSICAL EXAMINATION: On examination today, blood pressure 118/61, heart rate 88 per minute. She is afebrile. Examination of the lower extremities shows no evidence of edema. The patient appears euvolemic. [employer] exam grossly intact. LABS: Not available. ASSESSMENT: 1. End-stage renal disease, on hemodialysis on a Monday, , Monday schedule. 2. Sacral decubitus, maintained on antibiotics. 3. Chronic kidney disease, mineral bone disorder. 4. Hypertension. 5. Anemia of chronic disease. PLAN: Hemodialysis in a.m. if patient is still in the hospital. Otherwise she can receive her dialysis tomorrow as outpatient if she is discharged. MMLULAL / SUBHAN: [id number] /
--- NOTE | 2020-11-12 12:44 | P.PN ---
Progress Note - Text Progress Note Date: 11/11/20 REASON FOR FOLLOWUP: Infected sacral pressure ulcer. INTERVAL HISTORY: Patient remains to be afebrile. The patient is breathing comfortably, currently undergoing hemodialysis. No chest pain, shortness of breath or cough. No abdominal pain or any worsening pain to the sacral wound area. PHYSICAL EXAMINATION: Blood pressure 110/50 with a pulse of 80, temperature 98.6. She is 96% on 2 L nasal cannula. General description is an elderly female lying in bed in no distress. Respiratory system: Unlabored breathing. Clear to auscultation anteriorly. Heart S1, S2. Regular rate and rhythm. Abdomen soft, no tenderness. LABS: reviewed DIAGNOSTIC IMPRESSION AND PLAN: Patient with infected sacral pressure ulcer status post debridement. Culture did show enterococcus Staph and anaerobes. Plan is for vancomycin, Pharmacy to dose, along with oral Flagyl x 3 weeks . Local wound care with wound VAC and follow up in the [facility] post discharge.
== END 2020-11-11 14:14 ==
LOC: EC 14:57 → 5NMEDONC 17:13 → INTOOBSV 17:13 → 5NMEDONC 18:23 → UNDODISIN 11-11 14:14
PROVIDERS: ADMIT Family Medicine; ATTEND Family Medicine
DX: L89.153 Pressure ulcer of sacral region, stage 3 (principal); I13.2 Hypertensive heart and chronic kidney disease with heart failure and with stage 5 chronic kidney disease, or end stage renal disease; N18.6 End stage renal disease; I50.32 Chronic diastolic (congestive) heart failure; F33.9 Major depressive disorder, recurrent, unspecified; L03.317 Cellulitis of buttock; D63.1 Anemia in chronic kidney disease; E83.9 Disorder of mineral metabolism, unspecified; I48.0 Paroxysmal atrial fibrillation; B37.2 Candidiasis of skin and nail; E11.22 Type 2 diabetes mellitus with diabetic chronic kidney disease; E11.51 Type 2 diabetes mellitus with diabetic peripheral angiopathy without gangrene; E11.42 Type 2 diabetes mellitus with diabetic polyneuropathy; E11.622 Type 2 diabetes mellitus with other skin ulcer; Z99.2 Dependence on renal dialysis; L98.499 Non-pressure chronic ulcer of skin of other sites with unspecified severity; Z79.4 Long term (current) use of insulin; G47.33 Obstructive sleep apnea (adult) (pediatric); I35.0 Nonrheumatic aortic (valve) stenosis; E87.5 Hyperkalemia; E78.5 Hyperlipidemia, unspecified; K21.9 Gastro-esophageal reflux disease without esophagitis; I25.10 Atherosclerotic heart disease of native coronary artery without angina pectoris; I25.2 Old myocardial infarction; B95.2 Enterococcus as the cause of diseases classified elsewhere; S72.402D Unspecified fracture of lower end of left femur, subsequent encounter for closed fracture with routine healing; E66.9 Obesity, unspecified; Z68.31 Body mass index [BMI] 31.0-31.9, adult; Z79.82 Long term (current) use of aspirin; Z79.899 Other long term (current) drug therapy; Z77.22 Contact with and (suspected) exposure to environmental tobacco smoke (acute) (chronic); Z91.81 History of falling; Z53.29 Procedure and treatment not carried out because of patient's decision for other reasons; Z99.3 Dependence on wheelchair; Z87.440 Personal history of urinary (tract) infections; Z87.19 Personal history of other diseases of the digestive system; Z87.01 Personal history of pneumonia (recurrent); Z86.14 Personal history of Methicillin resistant Staphylococcus aureus infection; Z95.2 Presence of prosthetic heart valve; Z95.5 Presence of coronary angioplasty implant and graft; Z90.49 Acquired absence of other specified parts of digestive tract; Z90.710 Acquired absence of both cervix and uterus; Z87.42 Personal history of other diseases of the female genital tract; Z87.39 Personal history of other diseases of the musculoskeletal system and connective tissue; Z98.890 Other specified postprocedural states; Z88.1 Allergy status to other antibiotic agents; Z88.5 Allergy status to narcotic agent; Z88.8 Allergy status to other drugs, medicaments and biological substances; Z82.49 Family history of ischemic heart disease and other diseases of the circulatory system; Z82.5 Family history of asthma and other chronic lower respiratory diseases; Z82.3 Family history of stroke
CPT/HCPCS: 96366 ×2; 96365; 99284; 94660 ×10; 97162; 97535 ×2; 97166; 80053 ×3; 80048; 84443; 82565; 83605; 85025 ×2; 85610; 85730; 86706; 87340; 87040; 80202 ×3; 87070 ×2; 87205 ×2; 87075 ×2; 87102; 87077; 87186; 83036; 72192; 90970 ×4; 11043; 11046; G0378 ×12; J3370 ×4; J2270 ×5; Q0167 ×11; J2405; J0692 ×4; J2001; J3010; J2704; J0881 ×2; J1644 ×9; 90935

== ENCOUNTER 2020-11-12 10:26 | Inpatient (IN) | payer MEDICARE ==
[2020-11-12 10:53] LABS: Glucose,Whole Blood 164 mg/dL (75-99)
--- NOTE | 2020-11-12 10:54 | ED ---
General Adult HPI - General Chief complaint: Altered Mental Status Stated complaint: AMS Time Seen by Provider: 11/12/20 10:32 Source: patient, family, EMS, RN notes reviewed, old records reviewed Mode of arrival: EMS Limitations: altered mental status, physical limitation - History of Present Illness Initial comments: 75 female brought from the dialysis unit for evaluation of altered mental status, fever. Patient unable to give a detailed history. She has a sacral wound VAC, uncertain how long this has been in place. She was noted to be hypoxic during transport and did not receive hemodialysis today. Further history will be obtained from the patient's family when available. - Related Data Home Medications Medication Instructions Recorded Confirmed DULoxetine HCL [Cymbalta] 60 mg PO DAILY@0900 08/04/14 10/31/20 Amiodarone HCl [Pacerone] 100 mg PO DAILY@89911/22/15 10/31/20 Ezetimibe [Zetia] 10 mg PO DAILY@00 11/22/15 10/31/20 Omeprazole 20 mg PO DAILY@89912/25/16 10/31/20 Aspirin [Adult Low Dose Aspirin EC] 81 mg PO DAILY@0903/02/18 10/31/20 Metoprolol Succinate (ER) [Toprol 50 mg PO DAILY@89901/12/20 10/31/20 XL] Sevelamer [Renvela] 800 mg PO DAILY@89901/12/20 10/31/20 INSULIN ASPART (NovoLOG) [NovoLOG See Protocol SQ ACHS 10/22/20 10/31/20 (formulary)] Insulin Glargine,Hum.rec.anlog 20 units SQ BID@0800,209910/31/20 10/31/20 [Semglee Pen] Previous Rx's Medication Instructions Recorded Collagenase [Santyl] 1 applic TOPICAL DAILY applic 11/06/20 Darbepoetin Aron [Aranesp] 40 mcg SQ Q7D syringe 11/06/20 Gabapentin 300 mg PO BID@899,2099 #14 cap 11/06/20 INSULIN ASPART (NovoLOG) [NovoLOG 0 unit SQ ACHS vial 11/06/20 (formulary)] Vancomycin 1,000 mg IVPB MOWEFR #9 bag 11/06/20 dronabinoL [Marinol] 2.5 mg PO AC-BID #14 cap 11/06/20 metroNIDAZOLE [Flagyl] 500 mg PO TID #42 tab 11/06/20 traMADol HCL 50 mg PO Q6H PRN #28 tab 11/06/20 Allergies Allergy/AdvReac Type Severity Reaction Status Date / Time KUSHAL Inhibitors Allergy Swelling Verified 11/12/20 10:33 ARB-Angiotensin Receptor Allergy Swelling Verified 11/12/20 10:33 Antagonist cephalexin monohydrate Allergy Rash/Hives, Verified 11/12/20 10:33 [From Keflex] MOUTH SWELLING propoxyphene HCl AdvReac Hallucinati Verified 11/12/20 10:33 [From Darvon] ons Rauxori-Adr-Mny Reductase AdvReac Myalgia Verified 11/12/20 10:33 Inhibitor Review of Systems ROS Statement: Those systems with pertinent positive or pertinent negative responses have been documented in the HPI. ROS Other: All systems not noted in ROS Statement are negative. Past Medical History Past Medical History: Atrial Fibrillation, Coronary Artery Disease (CAD), Heart Failure, Diabetes Mellitus, Dialysis, GERD/Reflux, GI Bleed, Hyperlipidemia, Hypertension, Myocardial Infarction ([place]), Pneumonia, Renal Disease, Sleep Apnea/CPAP/BIPAP, Vascular Disorder Additional Past Medical History / Comment(s): HEMODIALYSIS- MONDAY,MONDAY,AND MONDAY . USES WHEELCHAIR-TRANSFERS ONLY -CAN TAKE A COUPLE OF STEPS, hx. GI bleed >year ago, SOB w/exertion, uses oxygen prn @2l, see Dr Combs [facility] & [facility]. TAVR Last Myocardial Infarction Date:: 2015 History of Any Multi-Drug Resistant Organisms: MRSA Date of last positivie culture/infection: 02/09/18 MDRO Source:: LT THIRD TOE Past Surgical History: Back Surgery, Cholecystectomy, Heart Catheterization, Heart Catheterization With Stent, Hysterectomy, Orthopedic Surgery Additional Past Surgical History / Comment(s): PCI with stents, several back surgeries-lumbar, bilateral carpal tunnel releases, bilateral cataract removals, port then fistula for hemodialysis. PTBA to left leg 03-02-18. TAVR in [address] Rock at [facility] Past Anesthesia/Blood Transfusion Reactions: Previous Problems w/ Anesthesia Additional Past Anesthesia/Blood Transfusion Reaction / Comment(s): Confusion that resolved. Date of Last Stent Placement:: 10/06/17 Past Psychological History: No Psychological Hx Reported Smoking Status: Never smoker Past Alcohol Use History: None Reported Past Drug Use History: None Reported - Past Family History Father Additional Family Medical History / Comment(s): Brain aneurysm ; age 72 Sister(s) Family Medical History: Hypertension Additional Family Medical History / Comment(s): Aortic stenosis; mitral valve disease Mother Family Medical History: No Reported History, AFIB, CVA/TIA, Hypertension Additional Family Medical History / Comment(s): mother age 83 Daughter(s) Family Medical History: Asthma Son(s) Family Medical History: Asthma General Exam Limitations: altered mental status, physical limitation General appearance: in no apparent distress, lethargic Head exam: Present: atraumatic, normocephalic Eye exam: Present: normal appearance, PERRL ENT exam: Present: mucous membranes dry Neck exam: Present: normal inspection, full ROM. Absent: tenderness, meningismus Respiratory exam: Present: respiratory distress, rales, rhonchi, decreased breath sounds Cardiovascular Exam: Present: regular rate, normal rhythm GI/Abdominal exam: Present: soft, distended, tenderness ( generalized tenderness). Absent: guarding, rebound Extremities exam: Present: pedal edema Neurological exam: Present: other (Patient is lethargic, she will answer some simple questions. She does move all extremities symmetrically) Skin exam: Present: warm, dry, other (Sacral wound VAC) Course Vital Signs 11/12/20 11/12/20 11/12/20 10:31 10:33 11:00 Temperature 100.5 F H Pulse Rate 96 92 Respiratory 16 19 Rate Blood Pressure 127/54 117/42 O2 Sat by Pulse 82 L 86 L 97 Oximetry 11/12/20 11/12/20 11/12/20 11:04 12:00 12:30 Temperature Pulse Rate 90 85 Respiratory 16 20 Rate Blood Pressure 96/53 119/55 O2 Sat by Pulse 97 95 99 Oximetry 11/12/20 13:01 Temperature 98.6 F Pulse Rate 85 Respiratory 16 Rate Blood Pressure 118/66 O2 Sat by Pulse 98 Oximetry EKG Findings - EKG Comments: EKG Findings:: EKG: Normal sinus rhythm, left axis deviation, right bundle branch block, rate 96, SC interval 194, QRS duration 144, QTC 525. No ST segment elevation. Medical Decision Making - Medical Decision Making 75-year-old female with multiple medical problems presents for evaluation of altered mental status. Patient has had a couple care medical history recent months. She was discharged to longterm care yesterday. I did obtain further history from the daughters who believes that she was placed on her CPAP machine but was not placed on supplemental oxygen throughout the night. Uncertain if this patient was hypoxic for a short period time or possibly even for a prolonged period of time. She had responded to supplemental oxygen. ABG was performed which did not show CO2 retention. Workup reveals leukocytosis of 12, hemoglobin 7.0. She has a mild lactic acid of 2.9. Urinalysis is significant for urinary tract infection. I did perform a CT of the abdomen pelvis both for abdominal pain and for sacral decubitus ulcer. This was negative for acute pathology. CT brain negative for intracranial hemorrhage or mass effect. Chest x-ray showing a right sided pneumonia. She started on Zosyn and vancomycin in the emergency department. Blood cultures and urine cultures are pending. Case discussed with Dr. Venegas who will admit. - Lab Data Result diagrams: 11/12/20 10:55 11/12/20 10:55 Lab Results 11/12/20 11/12/20 11/12/20 Range/Units 10:51 10:55 10:55 WBC 12.0 H (3.8-10.6) k/uL RBC 2.39 L (3.80-5.40) m/uL Hgb 7.0 L (11.4-16.0) gm/dL Hct 22.0 L (34.0-46.0) % MCV 92.0 (80.0-100.0) fL MCH 29.2 (25.0-35.0) pg MCHC 31.7 (31.0-37.0) g/dL RDW 17.7 H (11.5-15.5) % Plt Count 296 (150-450) k/uL MPV 8.4 Neutrophils % 83 % Lymphocytes % 9 % Monocytes % 6 % Eosinophils % 0 % Basophils % 1 % Neutrophils # 9.9 H (1.3-7.7) k/uL Lymphocytes # 1.1 (1.0-4.8) k/uL Monocytes # 0.7 (0-1.0) k/uL Eosinophils # 0.0 (0-0.7) k/uL Basophils # 0.1 (0-0.2) k/uL Hypochromasia Marked Poikilocytosis Slight Anisocytosis Slight PT 11.0 (9.0-12.0) sec INR 1.0 (<1.2) APTT 23.0 (22.0-30.0) sec Sample Site ABG pH (7.35-7.45) ABG pCO2 (35-45) mmHg ABG pO2 (83-108) mmHg ABG HCO3 (21-25) mmol/L ABG Total CO2 (19-24) mmol/L ABG O2 Saturation (94-97) % ABG Base Excess mmol/L Braydon Test FiO2 % Sodium (137-145) mmol/L Potassium (3.5-5.1) mmol/L Chloride (98-107) mmol/L Carbon Dioxide (22-30) mmol/L Anion Gap mmol/L BUN (7-17) mg/dL Creatinine (0.52-1.04) mg/dL Est GFR (CKD-EPI)AfAm (>60 ml/min/1.73 sqM) Est GFR (CKD-EPI)NonAf (>60 ml/min/1.73 sqM) Glucose (74-99) mg/dL POC Glucose (mg/dL) 164 H (75-99) mg/dL POC Glu Supply Chain Technician ID Erin Johnson Plasma Lactic Acid S[place] (0.7-2.0) mmol/L Calcium (8.4-10.2) mg/dL Magnesium (1.6-2.3) mg/dL Total Bilirubin (0.2-1.3) mg/dL AST (14-36) U/L ALT (4-34) U/L Alkaline Phosphatase (38-126) U/L Total Protein (6.3-8.2) g/dL Albumin (3.5-5.0) g/dL Urine Color Urine Appearance (Clear) Urine pH (5.0-8.0) Ur Specific [place] (1.001-1.035) Urine Protein (Negative) Urine Glucose (UA) (Negative) Urine Ketones (Negative) Urine Blood (Negative) Urine Nitrite (Negative) Urine Bilirubin (Negative) Urine Urobilinogen (<2.0) mg/dL Ur Leukocyte Esterase (Negative) Urine RBC (0-5) /hpf Urine WBC (0-5) /hpf Urine WBC Clumps (None) /hpf Amorphous Sediment (None) /hpf Urine Bacteria (None) /hpf Urine Mucus (None) /hpf Coronavirus (PCR) (Not Detectd) 11/12/20 11/12/20 11/12/20 Range/Units 10:55 10:55 10:55 WBC (3.8-10.6) k/uL RBC (3.80-5.40) m/uL Hgb (11.4-16.0) gm/dL Hct (34.0-46.0) % MCV (80.0-100.0) fL MCH (25.0-35.0) pg MCHC (31.0-37.0) g/dL RDW (11.5-15.5) % Plt Count (150-450) k/uL MPV Neutrophils % % Lymphocytes % % Monocytes % % Eosinophils % % Basophils % % Neutrophils # (1.3-7.7) k/uL Lymphocytes # (1.0-4.8) k/uL Monocytes # (0-1.0) k/uL Eosinophils # (0-0.7) k/uL Basophils # (0-0.2) k/uL Hypochromasia Poikilocytosis Anisocytosis PT (9.0-12.0) sec INR (<1.2) APTT (22.0-30.0) sec Sample Site ABG pH (7.35-7.45) ABG pCO2 (35-45) mmHg ABG pO2 (83-108) mmHg ABG HCO3 (21-25) mmol/L ABG Total CO2 (19-24) mmol/L ABG O2 Saturation (94-97) % ABG Base Excess mmol/L Braydon Test FiO2 % Sodium 133 L (137-145) mmol/L Potassium 5.3 H (3.5-5.1) mmol/L Chloride 92 L (98-107) mmol/L Carbon Dioxide 29 (22-30) mmol/L Anion Gap 12 mmol/L BUN 47 H (7-17) mg/dL Creatinine 4.18 H (0.52-1.04) mg/dL Est GFR (CKD-EPI)AfAm 11 (>60 ml/min/1.73 sqM) Est GFR (CKD-EPI)NonAf 10 (>60 ml/min/1.73 sqM) Glucose 161 H (74-99) mg/dL POC Glucose (mg/dL) (75-99) mg/dL POC Glu Supply Chain Technician ID Plasma Lactic Acid S[place] 2.9 H* (0.7-2.0) mmol/L Calcium 8.5 (8.4-10.2) mg/dL Magnesium 2.3 (1.6-2.3) mg/dL Total Bilirubin 0.8 (0.2-1.3) mg/dL AST 147 H (14-36) U/L ALT 40 H (4-34) U/L Alkaline Phosphatase 243 H (38-126) U/L Total Protein 6.6 (6.3-8.2) g/dL Albumin 3.2 L (3.5-5.0) g/dL Urine Color Dark Brown Urine Appearance Turbid H (Clear) Urine pH 6.5 (5.0-8.0) Ur Specific [place] 1.017 (1.001-1.035) Urine Protein 2+ H (Negative) Urine Glucose (UA) Negative (Negative) Urine Ketones Negative (Negative) Urine Blood Moderate H (Negative) Urine Nitrite Negative (Negative) Urine Bilirubin Negative (Negative) Urine Urobilinogen <2.0 (<2.0) mg/dL Ur Leukocyte Esterase Large H (Negative) Urine RBC 63 H (0-5) /hpf Urine WBC >182 H (0-5) /hpf Urine WBC Clumps Many H (None) /hpf Amorphous Sediment Rare H (None) /hpf Urine Bacteria Many H (None) /hpf Urine Mucus Rare H (None) /hpf Coronavirus (PCR) (Not Detectd) 11/12/20 11/12/20 Range/Units 10:58 11:32 WBC (3.8-10.6) k/uL RBC (3.80-5.40) m/uL Hgb (11.4-16.0) gm/dL Hct (34.0-46.0) % MCV (80.0-100.0) fL MCH (25.0-35.0) pg MCHC (31.0-37.0) g/dL RDW (11.5-15.5) % Plt Count (150-450) k/uL MPV Neutrophils % % Lymphocytes % % Monocytes % % Eosinophils % % Basophils % % Neutrophils # (1.3-7.7) k/uL Lymphocytes # (1.0-4.8) k/uL Monocytes # (0-1.0) k/uL Eosinophils # (0-0.7) k/uL Basophils # (0-0.2) k/uL Hypochromasia Poikilocytosis Anisocytosis PT (9.0-12.0) sec INR (<1.2) APTT (22.0-30.0) sec Sample Site rbrac ABG pH 7.45 (7.35-7.45) ABG pCO2 44 (35-45) mmHg ABG pO2 66 L (83-108) mmHg ABG HCO3 30 H (21-25) mmol/L ABG Total CO2 31 H (19-24) mmol/L ABG O2 Saturation 93.0 L (94-97) % ABG Base Excess 5.9 mmol/L Braydon Test Yes FiO2 32 % Sodium (137-145) mmol/L Potassium (3.5-5.1) mmol/L Chloride (98-107) mmol/L Carbon Dioxide (22-30) mmol/L Anion Gap mmol/L BUN (7-17) mg/dL Creatinine (0.52-1.04) mg/dL Est GFR (CKD-EPI)AfAm (>60 ml/min/1.73 sqM) Est GFR (CKD-EPI)NonAf (>60 ml/min/1.73 sqM) Glucose (74-99) mg/dL POC Glucose (mg/dL) (75-99) mg/dL POC Glu Supply Chain Technician ID Plasma Lactic Acid [place] (0.7-2.0) mmol/L Calcium (8.4-10.2) mg/dL Magnesium (1.6-2.3) mg/dL Total Bilirubin (0.2-1.3) mg/dL AST (14-36) U/L ALT (4-34) U/L Alkaline Phosphatase (38-126) U/L Total Protein (6.3-8.2) g/dL Albumin (3.5-5.0) g/dL Urine Color Urine Appearance (Clear) Urine pH (5.0-8.0) Ur Specific [place] (1.001-1.035) Urine Protein (Negative) Urine Glucose (UA) (Negative) Urine Ketones (Negative) Urine Blood (Negative) Urine Nitrite (Negative) Urine Bilirubin (Negative) Urine Urobilinogen (<2.0) mg/dL Ur Leukocyte Esterase (Negative) Urine RBC (0-5) /hpf Urine WBC (0-5) /hpf Urine WBC Clumps (None) /hpf Amorphous Sediment (None) /hpf Urine Bacteria (None) /hpf Urine Mucus (None) /hpf Coronavirus (PCR) Not Detected (Not Detectd) Disposition Clinical Impression: Uremic encephalopathy, Anemia, UTI (urinary tract infection), Pneumonia Disposition: ADMITTED IP TO THIS HOSP Condition: Stable Is patient prescribed a controlled substance at d/c from ED?: No Referrals: Stevenson Farias MD [Primary Care Provider] - 1-2 days Decision to Admit Reason: Admit from EC Decision Date: 11/12/20 Decision Time: 13:17
[2020-11-12 11:06] LABS: Anisocytosis Slight; Basophils # (A) 0.1 k/uL (0-0.2); Basophils % (A) 1 %; Eosinophils % (A) 0 %; Hypochromasia Marked; Lymphocytes # (A) 1.1 k/uL (1.0-4.8); Lymphocytes % (A) 9 %; MCH 29.2 pg (25.0-35.0); MCHC 31.7 g/dL (31.0-37.0); Mean Platelet Volume 8.4; Monocytes # (A) 0.7 k/uL (0-1.0); Monocytes % (A) 6 %; Neutrophils # (A) 9.9 k/uL (1.3-7.7); Neutrophils % (A) 83 %; Platelet Count 296 k/uL (150-450); Poikilocytosis Slight; RBC 2.39 m/uL (3.80-5.40); RDW 17.7 % (11.5-15.5)
[2020-11-12 11:16] LABS: Amorphous Sediment,Urine Rare /hpf; Appearance,Urine Turbid (Clear); Bacteria,Urine Many /hpf; Bilirubin,Urine Negative (Negative); Blood,Urine Moderate (Negative); Color,Urine Dark Brown; Glucose,Urine (UA) Negative (Negative); Ketones,Urine Negative (Negative); Leukocyte Esterase,Urine Large (Negative); Mucus,Urine Rare /hpf; Nitrite,Urine Negative (Negative); PH, Urine 6.5 (5.0-8.0); Protein,Urine 2+ (Negative); RBC,Urine 63 /hpf (0-5); Specific Gravity,Urine 1.017 (1.001-1.035); Urobilinogen,Urine <2.0 mg/dL (<2.0); WBC,Urine >182 /hpf (0-5)
[2020-11-12 11:19] LABS: Albumin 3.2 g/dL (3.5-5.0); Calcium 8.5 mg/dL (8.4-10.2); Magnesium 2.3 mg/dL (1.6-2.3); Potassium 5.3 mmol/L (3.5-5.1); Total Bilirubin 0.8 mg/dL (0.2-1.3); Total Protein 6.6 g/dL (6.3-8.2)
[2020-11-12 11:35] LABS: ABG Base Excess 5.9 mmol/L; ABG HCO3 30 mmol/L (21-25); ABG PCO2 44 mmHg (35-45); ABG PH 7.45 (7.35-7.45); ABG PO2 66 mmHg (83-108); ABG TCO2 31 mmol/L (19-24); Allen Test Performed? Yes
--- NOTE | 2020-11-12 11:44 | XR ---
EXAMINATION TYPE: XR chest 2V DATE OF EXAM: 11/12/2020 COMPARISON: 10/22/2020 HISTORY: Altered mental status and fever TECHNIQUE: Frontal and lateral views of the chest are obtained. FINDINGS: There is right-sided airspace disease which is new since the prior examination. Cardiac silhouette appears similar size with postoperative changes. Hardware is incompletely included. IMPRESSION: New right-sided airspace disease.
[2020-11-12] MEDS ORDERED: PIPERACILLIN-TAZOBACTAM 3.375 GM in SODIUM CHLORIDE 0.9% 100 ML IVPB STA (11:49)
[2020-11-12] MEDS ORDERED: VANCOMYCIN IV PER PHARMACY 1 EACH MISC MISCELLANE PRN (11:50)
--- NOTE | 2020-11-12 12:07 | CT ---
EXAMINATION TYPE: CT brain wo con DATE OF EXAM: 11/12/2020 HISTORY: Altered mental status. CT DLP: 1188.4 mGycm. Automated Exposure Control for Dose Reduction was Utilized. TECHNIQUE: CT scan of the head is performed without contrast. COMPARISON: 10/24/2017 FINDINGS: There is no acute intracranial hemorrhage, midline shift, or mass effect identified. Moderate to ana ed patchy white matter hypodensities likely sequela of chronic microvascular ischemic change. There i s cortical loss of the right temporal lobe with chronic appearing encephalomalacia. The ventricles, s ulci, and cisterns are prominent in size concordant with generalized volume loss. No acute extra-axia l fluid collection. No depressed calvarial fracture. There is an unchanged 7 mm ovoid pleural-based c alcification of the right posterior frontal region unchanged versus 2018 which may represent benign d ural calcification or benign meningioma. Visualized sinuses and mastoid air cells are clear. IMPRESSION: 1. No acute intracranial hemorrhage, midline shift, or mass effect. 2. Old encephalomalacia of the right temporal lobe. 3. Age-related changes including generalized volume loss and moderate to marked patchy white matter h ypodensities, likely sequela of chronic microvascular ischemic change. 4. If there is clinical concern for acute infarction consider MRI of the brain.
--- NOTE | 2020-11-12 12:16 | CT ---
EXAMINATION TYPE: CT abdomen pelvis wo con DATE OF EXAM: 11/12/2020 COMPARISON: CT pelvis 10/31/2020 INDICATION: Sacral decubitus ulcer, stage 3 DLP: 1278.4 mGycm, Automated exposure control for dose reduction was used. CONTRAST: No IV contrast. Study performed without Oral Contrast TECHNIQUE: Axial images were obtained from above the diaphragm to the pubic rami in the axial plane a t 5 mm thick sections. Reconstructed images are reviewed on the computer in the coronal plane. FINDINGS: Limited CT sections are obtained the lung bases. Mild infiltrate is present likely on the basis of a telectasis. Follow-up can be performed. Minimal pleural effusions may be present. CT ABDOMEN: Beam hardening artifact from lumbar thoracic fixation is present causing limitation. Liver: Normal Spleen: Normal Pancreas: Atrophic Adrenal glands: The adrenal glands are normal. Gallbladder: Normal Kidneys: Kidneys appear somewhat atrophic. No renal stones are evident.. No hydronephrosis is present . No cysts are present. Aorta: Vascular calcification is within the aorta. Inferior vena cava: Normal. CT PELVIS: Loops of bowel within the abdomen and pelvis are normal. The study is without oral contrast limit ing bowel evaluation. Appendix: Not identified. No dilated tubular structure with inflammatory changes are evident Urinary bladder: Decompressed with a Levy catheter Genitourinary structures: Minimal fluid is within the pelvis. Uterus and ovaries are not identified. Osseous structures: No suspicious lytic or sclerotic lesions. Fixation rods and pedicle screws are pr esent through the lower thoracic, through the lumbar spine, and within the sacral region. Soft tissue changes are within the sacral region. No cortical erosions are evident suggest acute osteomyelitis b y CT. IMPRESSIONS: 1. No suspicious changes suggest acute osteomyelitis or abscess formation. 2. Atelectasis with minimal effusions in the lung bases. 3. Mild free fluid within the abdomen
[2020-11-12] MEDS ORDERED: VANCOMYCIN 1,500 MG in SODIUM CHLORIDE 0.9% 250 ML IVPB ONE (13:00)
[2020-11-12] MEDS ORDERED: NALOXONE 0.4 MG/ML 1 ML VIAL IV PRN (13:11)
[2020-11-12] MEDS ORDERED: traMADol 50 MG TAB PO PRN (20:01)
[2020-11-12] MEDS: PIPERACILLIN-TAZOBACTAM 3.375 GM in SODIUM CHLORIDE 0.9% 100 ML IVPB SCH (20:13)
[2020-11-12 20:55] LABS: Glucose,Whole Blood 111 mg/dL (75-99)
[2020-11-12] MEDS: INSULIN ASPART (NovoLOG) 100 UNIT/ML VIAL SQ SCH (21:00)
[2020-11-12] MEDS: INSULIN DETEMIR (LEVEMIR) 100 UNIT/ML SYR SQ SCH (21:02)
[2020-11-12] MEDS: metroNIDAZOLE 500 MG TAB PO SCH (21:13)
[2020-11-12] MEDS: GABAPENTIN 300 MG CAP PO SCH (21:15)
[2020-11-12] MEDS: EZETIMIBE 10 MG TAB PO SCH (21:20)
[2020-11-13] MEDS: PIPERACILLIN-TAZOBACTAM 3.375 GM in SODIUM CHLORIDE 0.9% 100 ML IVPB SCH ×2 (04:12→13:09)
[2020-11-13 06:46] LABS: Glucose,Whole Blood 86 mg/dL (75-99)
[2020-11-13] MEDS: INSULIN ASPART (NovoLOG) 100 UNIT/ML VIAL SQ SCH ×4 (06:52→21:23)
[2020-11-13] MEDS: ASPIRIN 81 MG PO SCH (09:02)
[2020-11-13] MEDS: GABAPENTIN 300 MG CAP PO SCH ×2 (09:02→21:23)
[2020-11-13] MEDS: metroNIDAZOLE 500 MG TAB PO SCH ×3 (09:02→21:23)
[2020-11-13] MEDS: DULoxetine HCL 60 MG CAPSULE.DR PO SCH (09:02)
[2020-11-13] MEDS: PANTOPRAZOLE 40 MG TABLET PO SCH (09:02)
[2020-11-13] MEDS: AMIODARONE 100 MG TAB PO SCH (09:03)
[2020-11-13] MEDS: SEVELAMER 800 MG TAB PO SCH (09:03)
[2020-11-13] MEDS: METOPROLOL SUCCINATE (ER) 50 MG TAB.ER.24H PO SCH (09:04)
[2020-11-13] MEDS: INSULIN DETEMIR (LEVEMIR) 100 UNIT/ML SYR SQ SCH ×2 (10:33→21:23)
[2020-11-13 11:37] LABS: Glucose,Whole Blood 198 mg/dL (75-99)
--- NOTE | 2020-11-13 12:02 | P.CONS ---
History of Present Illness - Reason for Consult Consult date: 11/13/20 wound care - History of Present Illness this 75-year-old patient being seen by the wound care center on 4S. for nonhealing pressure ulceration to the coccyx. Patient recently had a surgical debridement and Santyl to the site previously for a stage II pressure ulcer aat [facility] multiple weeks ago. Patient was recently hospitalized last week and had additional surgical debridement. A negative pressure wound VAC was then applied to the site. At this time the ulceration measures approximately 10 x 8 x 0.4 cm with Slough and nonviable tissue noted and moderate granulation seen. Patient does have some serous drainage. The wound edges show some redness however there is no sloughing excoriation or induration noted. Wound edges are attached to the wound base is no tone undermining noted.patient's past medical history significant for atrial fibrillation, coronary artery disease, heart failure, diabetes, dialysis, GERD, GI bleed, hyperterlipidemia, sleep apnea. Patient is wheelchair bound. Review Of Systems: Constitutional: No fever, no chills, no night sweats. No weight change. No weakness, fatigue or lethargy. No daytime sleepiness. Integumentary:reports wounds, no lesions. No rash or pruritus. No unusual bruising. No change in hair or nails. Physical exam: General Appearance: Alert, cooperative, no distress, appears stated age. Skin: See HPI all other Skin color, texture, tugor normal, no rashes or lesions. Neurologic: Alert oriented x3 Assessment: 1. Stage III pressure ulcer sacrum 2. Diabetes with skin ulceration 3. Wheelchair bound Plan: 1. apply negative pressure wound VAC with black foam at 125 mmHg obstruction. Change Monday. If patient is to be discharged back to [facility] may apply absorptive silver to the site until she is able to have the wound VAC reapplied at [facility]. Patient would benefit from weekly wound debridements. We will be happy to see her in the wound care center upon discharge. Utilize a Roho cg in a wheelchair. Utilize a air-filled overlay mattress. Turn patient every 2 hours. Thank you for the consultation any questions please contact the wound care center DNP note has been reviewed and discussed with Dr. Nelson and the impression and plan of care has been directed as dictated. Past Medical History Past Medical History: Atrial Fibrillation, Coronary Artery Disease (CAD), Heart Failure, Diabetes Mellitus, Dialysis, GERD/Reflux, GI Bleed, Hyperlipidemia, Hypertension, Myocardial Infarction (ID), Pneumonia, Renal Disease, Sleep Apnea/CPAP/BIPAP, Vascular Disorder Additional Past Medical History / Comment(s): HEMODIALYSIS- MONDAY,MONDAY,AND MONDAY . USES WHEELCHAIR-TRANSFERS ONLY -CAN TAKE A COUPLE OF STEPS, hx. GI bleed >year ago, SOB w/exertion, uses oxygen prn @2l, see Dr Combs H & P. TAVR Last Myocardial Infarction Date:: 2015 History of Any Multi-Drug Resistant Organisms: MRSA Year Discovered:: 02/09/18 MDRO Source:: LT THIRD TOE Past Surgical History: Back Surgery, Cholecystectomy, Heart Catheterization, Heart Catheterization With Stent, Hysterectomy, Orthopedic Surgery Additional Past Surgical History / Comment(s): PCI with stents, several back surgeries-lumbar, bilateral carpal tunnel releases, bilateral cataract removals, port then fistula for hemodialysis. PTBA to left leg 03-02-18. TAVR in [address] Rock at [facility] Past Anesthesia/Blood Transfusion Reactions: Previous Problems w/ Anesthesia Additional Past Anesthesia/Blood Transfusion Reaction / Comm: Confusion that resolved. Date of Last Stent Placement:: 10/06/17 Past Psychological History: No Psychological Hx Reported Additional Psychological History / Comment(s): Single but lives with her daughter who is her caregiver Smoking Status: Never smoker Past Alcohol Use History: None Reported Additional Past Alcohol Use History / Comment(s): Patient had exposure to secondhand smoke with her . Past Drug Use History: None Reported - Past Family History Father Additional Family Medical History / Comment(s): Brain aneurysm ; age 72 Sister(s) Family Medical History: Hypertension Additional Family Medical History / Comment(s): Aortic stenosis; mitral valve disease Mother Family Medical History: No Reported History, AFIB, CVA/TIA, Hypertension Additional Family Medical History / Comment(s): mother age 83 Daughter(s) Family Medical History: Asthma Son(s) Family Medical History: Asthma Medications and Allergies Home Medications Medication Instructions Recorded Confirmed Type DULoxetine HCL [Cymbalta] 60 mg PO DAILY@0900 08/04/14 11/12/20 History Amiodarone HCl [Pacerone] 100 mg PO DAILY@0900 11/22/15 11/12/20 History Ezetimibe [Zetia] 10 mg PO HS@209911/22/15 11/12/20 History Omeprazole 20 mg PO DAILY@0900 12/25/16 11/12/20 History Aspirin [Adult Low Dose Aspirin EC] 81 mg PO DAILY@0900 03/02/18 11/12/20 History Metoprolol Succinate (ER) [Toprol 50 mg PO DAILY@0900 01/12/20 11/12/20 History XL] Sevelamer [Renvela] 800 mg PO DIRECTED 01/12/20 11/12/20 History Insulin Glargine,Hum.rec.anlog 20 units SQ BID@0800,209910/31/20 11/12/20 History [Semglee Pen] Darbepoetin Aron [Aranesp] 40 mcg SQ Q7D syringe 11/06/20 11/12/20 Rx Gabapentin 300 mg PO BID@0900,2100 #14 cap 11/06/20 11/12/20 Rx traMADol HCL 50 mg PO Q6H PRN #28 tab 11/06/20 11/12/20 Rx Insulin Lispro [humaLOG Kwikpen] See Protocol SQ ACHS 11/12/20 11/12/20 History Vancomycin 1,000 mg IVPB MOWEFR@209911/12/20 11/12/20 History dronabinoL [Marinol] 2.5 mg PO AC-BID@0900,1700 11/12/20 11/12/20 History metroNIDAZOLE [Flagyl] 500 mg PO TID@0900,1300,2100 11/12/20 11/12/20 History Allergies Allergy/AdvReac Type Severity Reaction Status Date / Time KUSHAL Inhibitors Allergy Swelling Verified 11/12/20 13:15 ARB-Angiotensin Receptor Allergy Swelling Verified 11/12/20 13:15 Antagonist cephalexin monohydrate Allergy Rash/Hives, Verified 11/12/20 13:15 [From Keflex] MOUTH SWELLING propoxyphene HCl AdvReac Hallucinati Verified 11/12/20 13:15 [From Darvon] ons Krszrrx-Cwb-Lud Reductase AdvReac Myalgia Verified 11/12/20 13:15 Inhibitor Physical Exam Vitals: Vital Signs Temp Pulse Pulse Resp BP BP Pulse Ox 11/13/20 09:00 86 103/50 11/13/20 08:58 93 L 11/13/20 08:14 100/62 11/13/20 07:06 97.5 F L 77 17 82/45 99 11/13/20 01:57 97.7 F 79 19 121/59 97 11/12/20 23:44 20 11/12/20 23:42 97.9 F 80 17 127/61 96 11/12/20 23:00 77 16 116/50 99 11/12/20 22:00 79 12 123/64 95 11/12/20 21:00 80 14 136/61 94 L 11/12/20 20:00 79 14 121/58 95 11/12/20 19:00 80 12 120/57 96 11/12/20 16:34 64 16 144/87 96 11/12/20 13:01 98.6 F 85 16 118/66 98 11/12/20 12:30 85 20 119/55 99 11/12/20 12:00 90 16 96/53 95 Intake and Output 11/12/20 11/13/20 11/13/20 22:59 06:59 14:59 Output Total 100 Balance -100 Output: Urine 100 Other: Voiding Method Indwelling Catheter # Bowel Movements 1 Results CBC & Chem 7: 11/12/20 10:55 11/12/20 10:55 Labs: Abnormal Lab Results - Last 24 Hours (Table) 11/12/20 11/13/20 Range/Units 20:52 11:35 POC Glucose (mg/dL) 111 H 198 H (75-99) mg/dL Microbiology - Last 24 Hours (Table) 11/12/20 10:55 Urine Culture - Preliminary Urine,Catheterized Assessment and Plan (1) Decubitus ulcer of sacral region, stage 3 Current Visit: No Status: Acute Code(s): L89.153 - PRESSURE ULCER OF SACRAL REGION, STAGE 3 SNOMED Code(s): 824123529 (2) Diabetes with skin ulcer Current Visit: No Status: Acute Code(s): E11.622 - TYPE 2 DIABETES MELLITUS WITH OTHER SKIN ULCER; L98.499 - NON-PRESSURE CHRONIC ULCER OF SKIN OF SITES W UNSP SEVERITY SNOMED Code(s): 59324972
[2020-11-13] MEDS ORDERED: Acetaminophen-Codeine 300-30mg TAB PO PRN (14:25)
[2020-11-13] MEDS ORDERED: SODIUM FERRIC GLUCONAT-SUCROSE 125 MG in SODIUM CHLORIDE 0.9% 100 ML IVPB ONE (14:26)
--- NOTE | 2020-11-13 14:42 | P.HPIM ---
History of Present Illness H&P Date: 11/13/20 HISTORY OF PRESENT ILLNESS This is a 75-year-old female with past medical history of hypertension hypertensive cardiovascular disease, hyperlipidemia, diabetes mellitus type 2, coronary artery disease s/p PCI mid LAD angioplasty D1 and PCI OM, valvular heart disease status post TAVR 2018, paroxysmal atrial fibrillation not on anti- coagulation due to GI bleeding and increased falls, end stage renal disease on HD, peripheral vascular disease recurrent urinary tract infections treated by Dr. Borrego status post cystoscopy in May., Left femur fracture status post ORIF at [facility] on 10/1809/17/2020, sacral decubitus ulcer stage III with wound VAC. Patient had recent hospitalization for sacral diffuse ulcer with cellulitis status post excisional debridement with Dr. Pierson and was discharged back to [facility] to complete course of subacute rehab. Patient was brought back to the emergency center due to hypoxia and she did not receive hemodialysis yesterday. All details are not known. Patient is unable to provide. Temperature is 100.5, heart rate 96, blood pressure 127/54, pulse ox 82% on room air. Patient is normally on 3 L nasal cannula. EKG is a sinus rhythm with left axis deviation, right bundle branch block, no acute ST changes. WBC is 12, hemoglobin 7, vital count 296. Sodium 133, potassium 5.3, chloride 92, CO2 29, BUN 47 creatinine 4.18. Blood sugar 161. Lactic acid 2.9 AST 147, ALT 40, alkaline phosphatase 243. Urinalysis was turbid, leukoesterase large, WBCs greater than 182, WBC clumps are many. Levy catheter was placed in the emergency center. Coronavirus not detected. CAT scan of the abdomen and pelvis revealed no suspicious changes to suggest acute osteomyelitis or abscess formation. Atelectasis with minimal effusions in the lung bases. Mild free fluid within the abdomen. Chest x-ray reveals new right-sided airspace disease. CAT scan of the brain revealed no acute intracranial hemorrhage, midline shift or mass effect. Old encephalomalacia of the right temporal lobe. Age-related changes. Patient has been admitted to the [facility] floor and consults requested with nephrology, Wound Center and infectious disease. REVIEW OF SYSTEMS Constitutional: No fever, no chills, no night sweats. No weight change. No weakness, fatigue or lethargy. No daytime sleepiness. EENT: No headache. No blurred vision or double vision, no loss of vision. No loss of Hearing, no ringing in the ears, no dizziness. No nasal drainage or congestion. No epistaxis. No sore throat. Lungs: No shortness of breath, cough, no sputum production. No wheezing. Cardiovascular: No chest pain, no lower extremity edema. No palpitations. No paroxysmal nocturnal dyspnea. No orthopnea. No lightheadedness or dizziness. No syncopal episodes. Abdominal: No abdominal pain. No nausea, vomiting. No diarrhea. No constipation. No bloody or tarry stools.. No loss of appetite. Genitourinary: No dysuria, increased frequency, urgency. No urinary retention. Musculoskeletal: No myalgias. No muscle weakness, no gait dysfunction, no frequent falls. No back pain. No neck pain. Integumentary: No wounds, no lesions. No rash or pruritus. No unusual bruising. No change in hair or nails. Neurologic: No aphasia. No facial droop. No change in mentation. No head injury. No headache. No paralysis. No paresthesia. Psychiatric: No depression. No anxiety. No mood swings. Endocrine: No abnormal blood sugars. No weight change. No excessive sweating or thirst. No cold intolerance. SOCIAL HISTORY Patient is single and lives with her daughter which is her primary caregiver. She has been a nonsmoker but exposed to second hand smoke with her . No alcohol use, illicit drug use. FAMILY HISTORY Father at age 72 from a brain aneurysm. Mother at age 83 with history of atrial fibrillation, stroke and hypertension. Patient has a sister with history of aortic stenosis and mitral valve disease. Patient has a daughter and son both with asthma.. PHYSICAL EXAMINATION Gen: This is a 75-year-old obese female. She is resting in bed and appears to be in no acute respiratory distress. HEENT: Head is atraumatic, normocephalic. Pupils equal, round. Sclerae is anicteric. NECK: Supple. No JVD. No lymphadenopathy. No thyromegaly. LUNGS: Clear to auscultation. No wheezes or rhonchi. No intercostal retractions. HEART: Regular rate and rhythm. Systolic ejection murmur at the base. ABDOMEN: Soft. Bowel sounds are present. No masses. No tenderness. EXTREMITIES: No pedal edema. No calf tenderness. NEUROLOGICAL: Patient is awake, alert and oriented x3. Cranial nerves 2 through 12 are grossly intact. ASSESSMENT AND PLAN 1. Acute hypoxic respiratory failure secondary to lack of oxygen use and patient with O2 dependence. Continue O2 therapy at 3 L nasal cannula and CPAP at night and while sleeping. 2. Metabolic encephalopathy secondary to CO2 narcosis, hypoxia. Mental status is back to baseline. Decrease gabapentin to 300 mg at bedtime. 3. Possible aspiration pneumonia on chest x-ray. Patient is on Zosyn and vancomycin. Consult with Dr. Obrien. 4. Lactic acidosis. 5. Possible acute urinary tract infection. Levy catheter has been placed on this admission. 6. Sacral decubitus ulcer stage III. Continue wound VAC, consult with Dr. Obrien. Continue Flagyl 500 mg 3 times daily. Patient is also on Zosyn and vancomycin 7. Recent left femur fracture status post ORIF on 10/23/[address] Cronin at [facility]. Patient is to be nonweightbearing on the left leg. Lindsay were removed on last admission. 8. Diabetes mellitus type 2, insulin requiring. Continue Levemir 20 units twice daily, NovoLog scale before meals and at bedtime. 9. End-stage renal disease on hemodialysis Monday. Consult with Dr. Ayan milligan. Patient is to have short dialysis today and then resume her normal schedule of Monday. 10. Chronic diastolic heart failure. Continue hemodialysis, Lasix, metolazone, Toprol-XL. 11. History of aortic stenosis status post TAVR. 12. Hypertension cardiovascular disease. Continue amiodarone 100 mg daily and metoprolol. 13. Paroxysmal atrial fibrillation. Continue amiodarone 100 mg once daily and Toprol-XL 50 mg daily. Patient is not on anticoagulation due to increased risk of fall and GI bleeding 14. History of myocardial infarction and coronary artery disease status post LAD stent in July 2017 and left circumflex in August 2017. Continue Toprol-XL 50 mg once daily. 15. GERD. Continue Protonix. 16. Hyperlipidemia. Continue Zetia 10mg daily 17. Obstructive sleep apnea, on CPAP machine at night, along with O2 supplementation. 18. Diabetic peripheral neuropathy. Continue gabapentin 300 mg decreased at bedtime. 19. Anemia of chronic kidney disease. Continue Aranesp 40 g every 7 days. One dose of Ferrlecit to be infused today. Recurrent depression. Continue Cymbalta 60 mg orally once daily. DVT prophylaxis. Heparin subcu every 12 GI prophylaxis continue Protonix. Patient will be admitted to the hospital for a minimum of 2 night stay. DISCHARGE PLAN Return to [facility]. Impression and plan of care have been directed as dictated by the signing physician. Jessenia Gonzalez nurse practitioner acting as scribe for signing physician. Past Medical History Past Medical History: Atrial Fibrillation, Coronary Artery Disease (CAD), Heart Failure, Diabetes Mellitus, Dialysis, GERD/Reflux, GI Bleed, Hyperlipidemia, Hypertension, Myocardial Infarction (DE), Pneumonia, Renal Disease, Sleep Apnea/CPAP/BIPAP, Vascular Disorder Additional Past Medical History / Comment(s): HEMODIALYSIS- MONDAY,MONDAY,AND MONDAY . USES WHEELCHAIR-TRANSFERS ONLY -CAN TAKE A COUPLE OF STEPS, hx. GI bleed >year ago, SOB w/exertion, uses oxygen prn @2l, see Dr Combs H & P. TAVR Last Myocardial Infarction Date:: 2015 History of Any Multi-Drug Resistant Organisms: MRSA Date of last positivie culture/infection: 02/09/18 MDRO Source:: LT THIRD TOE Past Surgical History: Back Surgery, Cholecystectomy, Heart Catheterization, Heart Catheterization With Stent, Hysterectomy, Orthopedic Surgery Additional Past Surgical History / Comment(s): PCI with stents, several back surgeries-lumbar, bilateral carpal tunnel releases, bilateral cataract removals, port then fistula for hemodialysis. PTBA to left leg 03-02-18. TAVR in [address] Rock at [facility] Past Anesthesia/Blood Transfusion Reactions: Previous Problems w/ Anesthesia Additional Past Anesthesia/Blood Transfusion Reaction / Comment(s): Confusion that resolved. Date of Last Stent Placement:: 10/06/17 Past Psychological History: No Psychological Hx Reported Additional Psychological History / Comment(s): Single but lives with her daughter who is her caregiver Smoking Status: Never smoker Past Alcohol Use History: None Reported Additional Past Alcohol Use History / Comment(s): Patient had exposure to secondhand smoke with her . Past Drug Use History: None Reported - Past Family History Father Additional Family Medical History / Comment(s): Brain aneurysm ; age 72 Sister(s) Family Medical History: Hypertension Additional Family Medical History / Comment(s): Aortic stenosis; mitral valve disease Mother Family Medical History: No Reported History, AFIB, CVA/TIA, Hypertension Additional Family Medical History / Comment(s): mother age 83 Daughter(s) Family Medical History: Asthma Son(s) Family Medical History: Asthma Medications and Allergies Home Medications Medication Instructions Recorded Confirmed Type DULoxetine HCL [Cymbalta] 60 mg PO DAILY@0900 08/04/14 11/12/20 History Amiodarone HCl [Pacerone] 100 mg PO DAILY@0911/22/15 11/12/20 History Ezetimibe [Zetia] 10 mg PO HS@209911/22/15 11/12/20 History Omeprazole 20 mg PO DAILY@0900 12/25/16 11/12/20 History Aspirin [Adult Low Dose Aspirin EC] 81 mg PO DAILY@0900 03/02/18 11/12/20 History Metoprolol Succinate (ER) [Toprol 50 mg PO DAILY@0900 01/12/20 11/12/20 History XL] Sevelamer [Renvela] 800 mg PO DIRECTED 01/12/20 11/12/20 History Insulin Glargine,Hum.rec.anlog 20 units SQ BID@0800,2100 10/31/20 11/12/20 History [Semglee Pen] Darbepoetin Aron [Aranesp] 40 mcg SQ Q7D syringe 11/06/20 11/12/20 Rx Gabapentin 300 mg PO BID@0900,2100 #14 cap 11/06/20 11/12/20 Rx traMADol HCL 50 mg PO Q6H PRN #28 tab 11/06/20 11/12/20 Rx Insulin Lispro [humaLOG Kwikpen] See Protocol SQ ACHS 11/12/20 11/12/20 History Vancomycin 1,000 mg IVPB MOWEFR@209911/12/20 11/12/20 History dronabinoL [Marinol] 2.5 mg PO AC-BID@0900,1700 11/12/20 11/12/20 History metroNIDAZOLE [Flagyl] 500 mg PO TID@0900,1300,2100 11/12/20 11/12/20 History Allergies Allergy/AdvReac Type Severity Reaction Status Date / Time KUSHAL Inhibitors Allergy Swelling Verified 11/12/20 13:15 ARB-Angiotensin Receptor Allergy Swelling Verified 11/12/20 13:15 Antagonist cephalexin monohydrate Allergy Rash/Hives, Verified 11/12/20 13:15 [From Keflex] MOUTH SWELLING propoxyphene HCl AdvReac Hallucinati Verified 11/12/20 13:15 [From Darvon] ons Vnrvatl-Oyw-Mer Reductase AdvReac Myalgia Verified 11/12/20 13:15 Inhibitor Physical Exam Vitals: Vital Signs Temp Pulse Pulse Resp BP BP Pulse Ox 11/13/20 09:00 86 103/50 11/13/20 08:58 93 L 11/13/20 08:14 100/62 11/13/20 07:06 97.5 F L 77 17 82/45 99 11/13/20 01:57 97.7 F 79 19 121/59 97 11/12/20 23:44 20 11/12/20 23:42 97.9 F 80 17 127/61 96 11/12/20 23:00 77 16 116/50 99 11/12/20 22:00 79 12 123/64 95 11/12/20 21:00 80 14 136/61 94 L 11/12/20 20:00 79 14 121/58 95 11/12/20 19:00 80 12 120/57 96 11/12/20 16:34 64 16 144/87 96 11/12/20 13:01 98.6 F 85 16 118/66 98 11/12/20 12:30 85 20 119/55 99 11/12/20 12:00 90 16 96/53 95 11/12/20 11:04 97 11/12/20 11:00 92 19 117/42 97 11/12/20 10:33 100.5 F H 96 16 127/54 86 L 11/12/20 10:31 82 L Intake and Output 11/12/20 11/13/20 11/13/20 22:59 06:59 14:59 Output Total 100 Balance -100 Output: Urine 100 Other: Voiding Method Indwelling Catheter # Bowel Movements 1 Results CBC & Chem 7: 11/12/20 10:55 11/12/20 10:55 Labs: Abnormal Lab Results - Last 24 Hours (Table) 11/12/20 11/12/20 11/12/20 Range/Units 10:51 10:55 10:55 WBC 12.0 H (3.8-10.6) k/uL RBC 2.39 L (3.80-5.40) m/uL Hgb 7.0 L (11.4-16.0) gm/dL Hct 22.0 L (34.0-46.0) % RDW 17.7 H (11.5-15.5) % Neutrophils # 9.9 H (1.3-7.7) k/uL ABG pO2 (83-108) mmHg ABG HCO3 (21-25) mmol/L ABG Total CO2 (19-24) mmol/L ABG O2 Saturation (94-97) % Sodium (137-145) mmol/L Potassium (3.5-5.1) mmol/L Chloride (98-107) mmol/L BUN (7-17) mg/dL Creatinine (0.52-1.04) mg/dL Glucose (74-99) mg/dL POC Glucose (mg/dL) 164 H (75-99) mg/dL Plasma Lactic Acid Satinder (0.7-2.0) mmol/L AST (14-36) U/L ALT (4-34) U/L Alkaline Phosphatase (38-126) U/L Albumin (3.5-5.0) g/dL Urine Appearance Turbid H (Clear) Urine Protein 2+ H (Negative) Urine Blood Moderate H (Negative) Ur Leukocyte Esterase Large H (Negative) Urine RBC 63 H (0-5) /hpf Urine WBC >182 H (0-5) /hpf Urine WBC Clumps Many H (None) /hpf Amorphous Sediment Rare H (None) /hpf Urine Bacteria Many H (None) /hpf Urine Mucus Rare H (None) /hpf 11/12/20 11/12/20 11/12/20 Range/Units 10:55 10:55 11:32 WBC (3.8-10.6) k/uL RBC (3.80-5.40) m/uL Hgb (11.4-16.0) gm/dL Hct (34.0-46.0) % RDW (11.5-15.5) % Neutrophils # (1.3-7.7) k/uL ABG pO2 66 L (83-108) mmHg ABG HCO3 30 H (21-25) mmol/L ABG Total CO2 31 H (19-24) mmol/L ABG O2 Saturation 93.0 L (94-97) % Sodium 133 L (137-145) mmol/L Potassium 5.3 H (3.5-5.1) mmol/L Chloride 92 L (98-107) mmol/L BUN 47 H (7-17) mg/dL Creatinine 4.18 H (0.52-1.04) mg/dL Glucose 161 H (74-99) mg/dL POC Glucose (mg/dL) (75-99) mg/dL Plasma Lactic Acid Satinder 2.9 H* (0.7-2.0) mmol/L AST 147 H (14-36) U/L ALT 40 H (4-34) U/L Alkaline Phosphatase 243 H (38-126) U/L Albumin 3.2 L (3.5-5.0) g/dL Urine Appearance (Clear) Urine Protein (Negative) Urine Blood (Negative) Ur Leukocyte Esterase (Negative) Urine RBC (0-5) /hpf Urine WBC (0-5) /hpf Urine WBC Clumps (None) /hpf Amorphous Sediment (None) /hpf Urine Bacteria (None) /hpf Urine Mucus (None) /hpf 11/12/20 Range/Units 20:52 WBC (3.8-10.6) k/uL RBC (3.80-5.40) m/uL Hgb (11.4-16.0) gm/dL Hct (34.0-46.0) % RDW (11.5-15.5) % Neutrophils # (1.3-7.7) k/uL ABG pO2 (83-108) mmHg ABG HCO3 (21-25) mmol/L ABG Total CO2 (19-24) mmol/L ABG O2 Saturation (94-97) % Sodium (137-145) mmol/L Potassium (3.5-5.1) mmol/L Chloride (98-107) mmol/L BUN (7-17) mg/dL Creatinine (0.52-1.04) mg/dL Glucose (74-99) mg/dL POC Glucose (mg/dL) 111 H (75-99) mg/dL Plasma Lactic Acid Satinder (0.7-2.0) mmol/L AST (14-36) U/L ALT (4-34) U/L Alkaline Phosphatase (38-126) U/L Albumin (3.5-5.0) g/dL Urine Appearance (Clear) Urine Protein (Negative) Urine Blood (Negative) Ur Leukocyte Esterase (Negative) Urine RBC (0-5) /hpf Urine WBC (0-5) /hpf Urine WBC Clumps (None) /hpf Amorphous Sediment (None) /hpf Urine Bacteria (None) /hpf Urine Mucus (None) /hpf Microbiology - Last 24 Hours (Table) 11/12/20 10:55 Urine Culture - Preliminary Urine,Catheterized Thrombosis Risk Factor Assmnt - Choose All That Apply Each Factor Represents 1 point: Medical pt on bed rest, Swollen legs (current) Each Risk Factor Represents 2 Points: Age 61-74 years, Patient confined to bed Each Risk Factor Represents 5 Points: Hip, pelvis, or leg fracture (< 1 month) Thrombosis Risk Factor Assessment Total Risk Factor Score: 11 Thrombosis Risk Factor Assessment Level: High Risk
--- NOTE | 2020-11-13 15:50 | CONS ---
CONSULTATION Patient is seen for followup for end-stage renal disease. She was admitted to the hospital with complaints of altered mentation. Patient was just discharged from the hospital on 11/11/2020. She had gone to rehab and was readmitted now with mental status changes. The patient is maintained on pain medications for sacral decub and is maintained on antibiotics for it as well. No complaints of chest pains or shortness of breath. Currently mentation is normal. The patient is normally maintained on a Monday, , Monday schedule for hemodialysis. PAST MEDICAL HISTORY: Chronic atrial fibrillation, coronary artery disease, history of CHF, type 2 diabetes, gastroesophageal reflux disease, hyperlipidemia, GI bleed, obstructive sleep apnea, repeated UTI, history of GI bleed, valvular heart disease, status post TAVR, peripheral vascular disease. PAST SURGICAL HISTORY: Back surgery, cholecystectomy, cardiac catheterization, hysterectomy, coronary stent, carpal tunnel release. SOCIAL HISTORY: Negative for smoking, drug abuse or alcohol abuse. MEDICATIONS: Include Cymbalta, Pacerone, Zetia, omeprazole, aspirin, Toprol, Renvela, Aranesp, gabapentin, tramadol, insulin, vancomycin, Flagyl. ALLERGIES: INCLUDE KUSHAL INHIBITORS, ANGIOTENSIN RECEPTOR BLOCKERS WHICH CAUSE SWELLING. KEFLEX CAUSES RASH AND HIVES. DARVON CAUSES HALLUCINATIONS. STATINS CAUSE MYALGIA. REVIEW OF SYSTEMS: As per HPI. Other systems negative. EXAMINATION: Comfortable, awake, alert, oriented x3, not in any acute distress. She is lethargic, lying in bed, arousable. Blood pressure is 103/50, heart rate 86 per minute. She is afebrile. Examination of the heart S1, S2. Examination of the lungs, bilateral breath sounds are heard. Decreased breath sounds at bases. Abdomen is soft, nontender. Examination of lower extremities shows no significant edema. Sacral decubitus is not examined. LAB: Show hemoglobin of 7.0, sodium 133, potassium 5.3, chloride 92, BUN 47, creatinine 4.18. ASSESSMENT: 1. End-stage renal disease, on hemodialysis on a Monday, , Monday schedule. Patient did not get dialysis yesterday. We will plan for a short treatment today and then again in a.m. tomorrow. 2. Anemia of chronic disease. 3. Sacral decubitus, maintained on antibiotics. Wound cultures had grown Enterococcus faecalis, Rosario Staphylococci . 4. CKD mineral bone disorder PLAN: Plan hemodialysis today and then again in a.m. The patient may need midodrine on a scheduled dose if her blood pressure stays low. Continue antibiotics as per previous admission. MMLULAL / IJN: [id number] / MTDD
[2020-11-13 16:35] LABS: Glucose,Whole Blood 235 mg/dL (75-99)
[2020-11-13] MEDS ORDERED: MIDODRINE 5 MG TAB PO PRN (16:38)
[2020-11-13] MEDS: ACETAMINOPHEN TAB 325 MG TAB PO PRN (16:50)
[2020-11-13 20:13] LABS: Glucose,Whole Blood 196 mg/dL (75-99)
[2020-11-13] MEDS ORDERED: VANCOMYCIN 1,000 MG VIAL IVPB SCH (21:00)
[2020-11-13] MEDS: EZETIMIBE 10 MG TAB PO SCH (21:23)
[2020-11-14] MEDS: PIPERACILLIN-TAZOBACTAM 3.375 GM in SODIUM CHLORIDE 0.9% 100 ML IVPB SCH ×2 (01:59→12:04)
[2020-11-14 07:14] LABS: Glucose,Whole Blood 77 mg/dL (75-99)
[2020-11-14] MEDS: LIDOCAINE 5% PATCH TOPICAL SCH ×2 (08:03→17:54)
[2020-11-14] MEDS: COLLAGENASE 250 UNIT/GM OINTMENT 30 GM TUBE TOPICAL SCH ×2 (08:03→08:06)
[2020-11-14] MEDS: INSULIN ASPART (NovoLOG) 100 UNIT/ML VIAL SQ SCH ×4 (08:04→20:35)
[2020-11-14] MEDS: DULoxetine HCL 60 MG CAPSULE.DR PO SCH (08:05)
[2020-11-14] MEDS: metroNIDAZOLE 500 MG TAB PO SCH ×3 (08:05→20:41)
[2020-11-14] MEDS: PANTOPRAZOLE 40 MG TABLET PO SCH (08:05)
[2020-11-14] MEDS: ASPIRIN 81 MG PO SCH (08:05)
[2020-11-14] MEDS: AMIODARONE 100 MG TAB PO SCH (08:05)
[2020-11-14] MEDS: SEVELAMER 800 MG TAB PO SCH (08:05)
[2020-11-14] MEDS: METOPROLOL SUCCINATE (ER) 50 MG TAB.ER.24H PO SCH (08:07)
[2020-11-14] MEDS: INSULIN DETEMIR (LEVEMIR) 100 UNIT/ML SYR SQ SCH ×2 (10:13→20:36)
--- NOTE | 2020-11-14 11:09 | P.CONS ---
History of Present Illness - Reason for Consult Consult date: 11/13/20 Pneumonia and pressure ulcer Requesting physician: Nandini Venegas - Chief Complaint Fever and mental status changes x 1 day - History of Present Illness Patient is 75-year-old female past medical history significant for end-stage renal disease on hemodialysis patient was recently admitted at this facility with the patient was treated for infectious sacral pressure ulcer stage III culture positive for Enterococcus and anaerobes she was advised vancomycin through dialysis along with oral Flagyl and the patient was discharged to the [facility] patient was brought back within 24-hour from the dialysis unit for evaluation of mental status changes and fever patient on presentation to the hospital did have fever 100.5 F patient did have white count of 12,000 she did have urine obtained however she hardly makes any urine which was positive vancomycin random thirty-five watson PCR was negative patient did have a chest x-ray new right sided airspace disease patient did have a CT of abdominal pelvis limited dissection through the lung bases mild infiltrate likely in the basis of atelectasis no sacral osteomyelitis or intra-abdominal pathology patient has been started on vancomycin and Zosyn infectious he was consulted for further management of antibiotic therapy at the time of evaluation this afternoon the patient is afebrile the patient is awake and alert patient denies having any chest pain minimal shortness of breath no significant cough or sputum production no nausea vomiting no abdominal pain and denies any worsening pain to the sacral wound area. Review of Systems Positive points has been mentioned in HPI complete review could not be obtained because of his underlying mental status Past Medical History Past Medical History: Atrial Fibrillation, Coronary Artery Disease (CAD), Heart Failure, Diabetes Mellitus, Dialysis, GERD/Reflux, GI Bleed, Hyperlipidemia, Hypertension, Myocardial Infarction ([place]), Pneumonia, Renal Disease, Sleep Apnea/CPAP/BIPAP, Vascular Disorder Additional Past Medical History / Comment(s): HEMODIALYSIS- MONDAY,MONDAY,AND MONDAY . USES WHEELCHAIR-TRANSFERS ONLY -CAN TAKE A COUPLE OF STEPS, hx. GI bleed >year ago, SOB w/exertion, uses oxygen prn @2l, see Dr Combs [facility]. TAVR Last Myocardial Infarction Date:: 2015 History of Any Multi-Drug Resistant Organisms: MRSA Year Discovered:: 02/09/18 MDRO Source:: LT THIRD TOE Past Surgical History: Back Surgery, Cholecystectomy, Heart Catheterization, Heart Catheterization With Stent, Hysterectomy, Orthopedic Surgery Additional Past Surgical History / Comment(s): PCI with stents, several back surgeries-lumbar, bilateral carpal tunnel releases, bilateral cataract removals, port then fistula for hemodialysis. PTBA to left leg 03-02-18. TAVR in [address] Rock at [facility] Past Anesthesia/Blood Transfusion Reactions: Previous Problems w/ Anesthesia Additional Past Anesthesia/Blood Transfusion Reaction / Comm: Confusion that resolved. Date of Last Stent Placement:: 10/06/17 Past Psychological History: No Psychological Hx Reported Additional Psychological History / Comment(s): Single but lives with her daughter who is her caregiver Smoking Status: Never smoker Past Alcohol Use History: None Reported Additional Past Alcohol Use History / Comment(s): Patient had exposure to secondhand smoke with her . Past Drug Use History: None Reported - Past Family History Father Additional Family Medical History / Comment(s): Brain aneurysm ; age 72 Sister(s) Family Medical History: Hypertension Additional Family Medical History / Comment(s): Aortic stenosis; mitral valve disease Mother Family Medical History: No Reported History, AFIB, CVA/TIA, Hypertension Additional Family Medical History / Comment(s): mother age 83 Daughter(s) Family Medical History: Asthma Son(s) Family Medical History: Asthma Medications and Allergies Home Medications Medication Instructions Recorded Confirmed Type DULoxetine HCL [Cymbalta] 60 mg PO DAILY@0900 08/04/14 11/12/20 History Amiodarone HCl [Pacerone] 100 mg PO DAILY@89911/22/15 11/12/20 History Ezetimibe [Zetia] 10 mg PO HS@209911/22/15 11/12/20 History Omeprazole 20 mg PO DAILY@89912/25/16 11/12/20 History Aspirin [Adult Low Dose Aspirin EC] 81 mg PO DAILY@89903/02/18 11/12/20 History Metoprolol Succinate (ER) [Toprol 50 mg PO DAILY@89901/12/20 11/12/20 History XL] Sevelamer [Renvela] 800 mg PO DIRECTED 01/12/20 11/12/20 History Insulin Glargine,Hum.rec.anlog 20 units SQ BID@0800,209910/31/20 11/12/20 History [Semglee Pen] Darbepoetin Aron [Aranesp] 40 mcg SQ Q7D syringe 11/06/20 11/12/20 Rx Gabapentin 300 mg PO BID@0900,2100 #14 cap 11/06/20 11/12/20 Rx traMADol HCL 50 mg PO Q6H PRN #28 tab 11/06/20 11/12/20 Rx Insulin Lispro [humaLOG Kwikpen] See Protocol SQ ACHS 11/12/20 11/12/20 History Vancomycin 1,000 mg IVPB MOWEFR@2100 11/12/20 11/12/20 History dronabinoL [Marinol] 2.5 mg PO AC-BID@0900,1700 11/12/20 11/12/20 History metroNIDAZOLE [Flagyl] 500 mg PO TID@0900,1300,2100 11/12/20 11/12/20 History Allergies Allergy/AdvReac Type Severity Reaction Status Date / Time KUSHAL Inhibitors Allergy Swelling Verified 11/12/20 13:15 ARB-Angiotensin Receptor Allergy Swelling Verified 11/12/20 13:15 Antagonist cephalexin monohydrate Allergy Rash/Hives, Verified 11/12/20 13:15 [From Keflex] MOUTH SWELLING propoxyphene HCl AdvReac Hallucinati Verified 11/12/20 13:15 [From Darvon] ons Mynyatc-Nvp-Wbp Reductase AdvReac Myalgia Verified 11/12/20 13:15 Inhibitor Physical Exam Vitals: Vital Signs Temp Pulse Pulse Resp BP BP Pulse Ox 11/13/20 13:11 99 F 90 17 123/67 93 L 11/13/20 09:00 86 103/50 11/13/20 08:58 93 L 11/13/20 08:14 100/62 11/13/20 07:06 97.5 F L 77 17 82/45 99 11/13/20 01:57 97.7 F 79 19 121/59 97 11/12/20 23:44 20 11/12/20 23:42 97.9 F 80 17 127/61 96 11/12/20 23:00 77 16 116/50 99 11/12/20 22:00 79 12 123/64 95 11/12/20 21:00 80 14 136/61 94 L 11/12/20 20:00 79 14 121/58 95 11/12/20 19:00 80 12 120/57 96 11/12/20 16:34 64 16 144/87 96 Intake and Output 11/13/20 11/13/20 11/13/20 06:59 14:59 22:59 Output Total 100 Balance -100 Output: Urine 100 Other: Voiding Method Indwelling Catheter Indwelling Catheter # Bowel Movements 1 GENERAL DESCRIPTION: Elderly female lying in bed, no distress. No tachypnea or accessory muscle of respiration use. HEENT: Shows Pallor , no scleral icterus. Oral mucous membrane is dry. No pharyngeal erythema or thrush NECK: Trachea central, no thyromegaly. LUNGS: Unlabored breathing. Decreased as of the base. No wheeze or crackle. HEART: S1, S2, regular rate and rhythm. No loud murmur ABDOMEN: Soft, no tenderness , guarding or rigidity, no organomegaly EXTREMITIES: No edema of feet. SKIN: No rash, no masses palpable. sacral wound with some slough tissue , no surrounding redness or foul smelling drainage NEUROLOGICAL: The patient is awake, alert, oriented x3, mood and affect normal. Results CBC & Chem 7: 11/12/20 10:55 11/12/20 10:55 Labs: Abnormal Lab Results - Last 24 Hours (Table) 11/12/20 11/13/20 Range/Units 20:52 11:35 POC Glucose (mg/dL) 111 H 198 H (75-99) mg/dL Microbiology - Last 24 Hours (Table) 11/12/20 10:55 Blood Culture - Preliminary Blood No Growth after 24 hours 11/12/20 10:55 Urine Culture - Preliminary Urine,Catheterized Assessment and Plan Assessment: patient presented to hospital with mental status changes in the fever in this patient currently being treated for infected sacral pressure ulcer culture positive for Enterococcus staff and anaerobes for the patient was getting vancomycin and Flagyl now with concern for possible right lower lobe pneumonia on the basis of chest x-ray patient did not have significant respiratory symptoms though underlying pneumonia less likely not well excluded there is no evidence of any intra-abdominal pathology on the CT no evidence of sacral osteomyelitis she did have a positive UA however hardly makes any urine doubt clinical significance of positive UA in dialysis patient (1) Pneumonia Current Visit: Yes Status: Acute Code(s): J18.9 - PNEUMONIA, UNSPECIFIED ORGANISM SNOMED Code(s): 906934134 (2) Decubitus ulcer of sacral region, stage 3 Current Visit: No Status: Acute Code(s): L89.153 - PRESSURE ULCER OF SACRAL REGION, STAGE 3 SNOMED Code(s): 447481387 Plan: 1-patient to continue with the vancomycin and Zosyn with the patient seem to have clinically supported 2-try to obtain sputum for Gram stain culture 3-check a CRP and procalcitonin level 4-local wound care to the sacral wound with Santyl to the slough tissue followed by application of wound VAC to be changed Monday We will follow on clinical condition and cultures to further adjust medication if needed Thank you for this consultation we will follow the patient along with you
[2020-11-14 11:48] LABS: Glucose,Whole Blood 86 mg/dL (75-99)
--- NOTE | 2020-11-14 12:53 | P.PN ---
Subjective Progress Note Date: 11/14/20 HISTORY OF PRESENT ILLNESS This is a 75-year-old female with past medical history of hypertension hypertensive cardiovascular disease, hyperlipidemia, diabetes mellitus type 2, coronary artery disease s/p PCI mid LAD angioplasty D1 and PCI OM, valvular heart disease status post TAVR 2018, paroxysmal atrial fibrillation not on anti- coagulation due to GI bleeding and increased falls, end stage renal disease on HD, peripheral vascular disease recurrent urinary tract infections treated by Dr. Borrego status post cystoscopy in May., Left femur fracture status post ORIF at [facility] on 10/1809/17/2020, sacral decubitus ulcer stage III with wound VAC. Patient had recent hospitalization for sacral diffuse ulcer with cellulitis status post excisional debridement with Dr. Pierson and was discharged back to [facility] to complete course of subacute rehab. Patient was brought back to the emergency center due to hypoxia and she did not receive hemodialysis yesterday. All details are not known. Patient is unable to provide. Temperature is 100.5, heart rate 96, blood pressure 127/54, pulse ox 82% on room air. Patient is normally on 3 L nasal cannula. EKG is a sinus rhythm with left axis deviation, right bundle branch block, no acute ST changes. WBC is 12, hemoglobin 7, vital count 296. Sodium 133, potassium 5.3, chloride 92, CO2 29, BUN 47 creatinine 4.18. Blood sugar 161. Lactic acid 2.9 AST 147, ALT 40, alkaline phosphatase 243. Urinalysis was turbid, leukoesterase large, WBCs greater than 182, WBC clumps are many. Levy catheter was placed in the ergency center. Coronavirus not detected. CAT scan of the abdomen and pelvis revealed no suspicious changes to suggest acute osteomyelitis or abscess formation. Atelectasis with minimal effusions in the lung bases. Mild free fluid within the abdomen. Chest x-ray reveals new right-sided airspace disease. CAT scan of the brain revealed no acute intracranial hemorrhage, midline shift or mass effect. Old encephalomalacia of the right temporal lobe. Age-related changes. [facility] and consults requested with nephrology, Wound Center and infectious disease. 11/14: A she was seen today on the [facility] floor. Dr. Botello is added midodrine for hypotension. Patient is status post 1 dose of Ferrlecit. She has been maintained on hemodialysis and is scheduled today. Consult for Dr. Obrien is in place and patient is currently on IV vancomycin dosing with dialysis, Zosyn, Flagyl. Urine culture finalized today with E. coli. Blood culture showing no growth at 24 hours 2 specimens. Pro-calcitonin level ordered. Patient denies having any abdominal pain, no diarrhea. Discharge plan is for [facility] most likely on Monday. REVIEW OF SYSTEMS Constitutional: No fever, no chills, no night sweats. No weight change. Reports weakness, reports fatigue reports lethargy. Reports daytime sleepiness. EENT: No headache. No blurred vision or double vision, no loss of vision. No loss of Hearing, no ringing in the ears, no dizziness. No nasal drainage or congestion. No epistaxis. No sore throat. Lungs: No shortness of breath, cough, no sputum production. No wheezing. Cardiovascular: No chest pain, no lower extremity edema. No palpitations. No paroxysmal nocturnal dyspnea. No orthopnea. No lightheadedness or dizziness. No syncopal episodes. Abdominal: No abdominal pain. No nausea, vomiting. No diarrhea. No constip ation. No bloody or tarry stools.. No loss of appetite. Genitourinary: No dysuria, increased frequency, urgency. No urinary retention. Musculoskeletal: No myalgias. Reports muscle weakness, reports gait dysfunction, no frequent falls. No back pain. No neck pain. Nonweightbearing on the left leg. Integumentary: No wounds, no lesions. No rash or pruritus. No unusual bruising. No change in hair or nails. Neurologic: No aphasia. No facial droop. No change in mentation. No head injury. No headache. No paralysis. No paresthesia. Psychiatric: No depression. No anxiety. No mood swings. Endocrine: No abnormal blood sugars. No weight change. No excessive sweating or thirst. No cold intolerance. PHYSICAL EXAMINATION Gen: This is a 75-year-old obese female. She is resting in bed and appears to be in no acute respiratory distress. HEENT: Head is atraumatic, normocephalic. Pupils equal, round. Sclerae is anicteric. NECK: Supple. No JVD. No lymphadenopathy. No thyromegaly. LUNGS: Clear to auscultation. No wheezes or rhonchi. No intercostal re tractions. HEART: Regular rate and rhythm. Systolic ejection murmur at the base. ABDOMEN: Soft. Bowel sounds are present. No masses. No tenderness. EXTREMITIES: No pedal edema. No calf tenderness. NEUROLOGICAL: Patient is awake, alert and oriented x3. Cranial nerves 2 through 12 are grossly intact. ASSESSMENT AND PLAN 1. Acute hypoxic respiratory failure secondary to lack of oxygen use and patient with O2 dependence. Continue O2 therapy at 3 L nasal cannula and CPAP at night and while sleeping. 2. Metabolic encephalopathy secondary to CO2 narcosis, hypoxia. Mental status is back to baseline. Decrease gabapentin to 300 mg at bedtime. 3. Possible aspiration pneumonia on chest x-ray. Patient is on Zosyn and vancomycin and Flagyl. Consult with Dr. Obrien. 4. Lactic acidosis. 5. Possible acute E. coli urinary tract infection. Levy catheter has been placed on this admission. Continue antibiotics 6. Sacral decubitus ulcer stage III. Continue wound VAC, consult with Dr. Obrien. Continue Flagyl 500 mg 3 times daily. Patient is also on Zosyn and vancomycin 7. Recent left femur fracture status post ORIF on 10/23/[address] Cronin at [facility]. Patient is to be nonweightbearing on the left leg. [place] were removed on last admission. 8. Diabetes mellitus type 2, insulin requiring. Continue Levemir 20 units twice daily, NovoLog scale before meals and at bedtime. 9. End-stage renal disease on hemodialysis Monday. Consult with Dr. Ayan milligan. Patient is to have short dialysis today and then resume her normal schedule of Monday. 10. Chronic diastolic heart failure. Continue hemodialysis, Lasix, metolazone, Toprol-XL. 11. History of aortic stenosis status post TAVR. 12. Hypertension cardiovascular disease. Continue amiodarone 100 mg daily and metoprolol. 13. Paroxysmal atrial fibrillation. Continue amiodarone 100 mg once daily and Toprol-XL 50 mg daily. Patient is not on anticoagulation due to increased risk of fall and GI bleeding 14. History of myocardial infarction and coronary artery disease status post LAD stent in July 2017 and left circumflex in August 2017. Continue Toprol-XL 50 mg once daily. 15. GERD. Continue Protonix. 16. Hyperlipidemia. Continue Zetia 10mg daily 17. Obstructive sleep apnea, on CPAP machine at night, along with O2 supplementation. 18. Diabetic peripheral neuropathy. Continue gabapentin 300 mg decreased at bed time. 19. Anemia of chronic kidney disease. Continue Aranesp 40 g every 7 days. One dose of Ferrlecit to be infused today. Recurrent depression. Continue Cymbalta 60 mg orally once daily. DVT prophylaxis. Heparin subcu every 12 GI prophylaxis continue Protonix. DISCHARGE PLAN Return to [facility] on Monday. Impression and plan of care have been directed as dictated by the signing physician. Jessenia Gonzalez nurse practitioner acting as scribe for signing physician. Objective - Vital Signs Vital signs: Vital Signs Temp 98.4 F 11/14/20 07:25 Pulse 89 11/14/20 07:25 Resp 16 11/14/20 07:25 BP 143/68 11/14/20 07:25 Pulse Ox 94 L 11/14/20 07:29 Intake & Output 11/13/20 11/14/20 11/14/20 18:59 06:59 18:59 Intake Total 820 Output Total 1000 0 Balance 820 -1000 0 Intake: Intake, IV Titration 300 Amount Piperacillin-Tazobactam 3 200 .375 gm In Sodium Chloride 0.9% 100 ml @ 25 mls/hr IVPB Q12H [facility] Rx# :[id number] Sodium Ferric Gluconat- 100 Sucrose 125 mg In Sodium Chloride 0.9% 100 ml @ 100 mls/hr IVPB ONCE ONE Rx#:[id number] Oral 520 Output: Urine 0 Uretheral (Levy) 0 Hemodialysis 1000 Other: Voiding Method Indwelling Catheter Indwelling Catheter # Voids 0 # Bowel Movements 1 - Labs CBC & Chem 7: 11/12/20 10:55 11/12/20 10:55 Labs: Abnormal Lab Results - Last 24 Hours (Table) 11/13/20 11/13/20 11/13/20 Range/Units 11:35 16:31 20:08 POC Glucose (mg/dL) 198 H 235 H 196 H (75-99) mg/dL Microbiology - Last 24 Hours (Table) 11/13/20 03:21 Blood Culture - Preliminary Blood No Growth after 24 hours 11/12/20 10:55 Urine Culture - Preliminary Urine,Catheterized Gram Neg Bacilli 11/12/20 10:55 Blood Culture - Preliminary Blood No Growth after 24 hours
[2020-11-14 16:38] LABS: Glucose,Whole Blood 98 mg/dL (75-99)
--- NOTE | 2020-11-14 17:37 | PN ---
PROGRESS NOTE DATE OF SERVICE: 11/14/2020 REASON FOR FOLLOWUP: Stage 3 infected sacral pressure ulcer, question of pneumonia. INTERVAL HISTORY: Patient is currently afebrile. Patient is breathing comfortably. Denies having any chest pain or any worsening cough. No abdominal pain or diarrhea. PHYSICAL EXAMINATION: Blood pressure 100/57, pulse of 83, temperature 98.5, he then 94% 2 L nasal cannula. General description is an elderly female lying in no distress. Respiratory system unlabored breathing, decreased breath sounds in the base, with no wheeze. Heart S1, S2, regular rate and rhythm. LABS: White count 28.5. DIAGNOSTIC IMPRESSION AND PLAN: Patient presenting to the hospital with mental status changes and fever with concern for possible pneumonia in this patient getting treatment for an infected sacral pressure ulcer. The patient is covered with vancomycin, Zosyn to continue. Local wound care with wound VAC. Monitor her clinical course closely. MMODL / IJN: [id number] /
[2020-11-14 20:23] LABS: Glucose,Whole Blood 93 mg/dL (75-99)
[2020-11-14] MEDS: GABAPENTIN 300 MG CAP PO SCH (20:41)
[2020-11-14] MEDS: EZETIMIBE 10 MG TAB PO SCH (20:41)
[2020-11-15] MEDS: PIPERACILLIN-TAZOBACTAM 3.375 GM in SODIUM CHLORIDE 0.9% 100 ML IVPB SCH ×2 (00:27→12:47)
[2020-11-15 07:33] LABS: Glucose,Whole Blood 77 mg/dL (75-99)
[2020-11-15] MEDS: INSULIN ASPART (NovoLOG) 100 UNIT/ML VIAL SQ SCH ×4 (07:36→19:40)
[2020-11-15] MEDS: DULoxetine HCL 60 MG CAPSULE.DR PO SCH (08:02)
[2020-11-15] MEDS: ASPIRIN 81 MG PO SCH (08:02)
[2020-11-15] MEDS: INSULIN DETEMIR (LEVEMIR) 100 UNIT/ML SYR SQ SCH ×2 (08:02→19:37)
[2020-11-15] MEDS: METOPROLOL SUCCINATE (ER) 50 MG TAB.ER.24H PO SCH (08:03)
[2020-11-15] MEDS: PANTOPRAZOLE 40 MG TABLET PO SCH (08:03)
[2020-11-15] MEDS: metroNIDAZOLE 500 MG TAB PO SCH ×3 (08:04→19:40)
[2020-11-15] MEDS: SEVELAMER 800 MG TAB PO SCH (08:04)
[2020-11-15] MEDS: COLLAGENASE 250 UNIT/GM OINTMENT 30 GM TUBE TOPICAL SCH (08:04)
[2020-11-15] MEDS: AMIODARONE 100 MG TAB PO SCH (08:04)
[2020-11-15 10:01] LABS: African American GFR (CKD) 18.5 (60.0-200.0); Albumin 2.9 g/dL (3.80-4.90); Anion Gap 12.7 mmol/L (4.00-12.00); BUN/Creat Ratio 7.14 Ratio (12.00-20.00); Carbon Dioxide 26.3 mmol/L (21.6-31.8); Globulin 2.9 g/dL (1.6-3.3); Total Bilirubin 0.5 mg/dL (0.3-1.2); Total Protein 5.8 g/dL (6.2-8.2)
[2020-11-15 10:58] LABS: HCT 21.8 % (37.2-46.3); HGB 6.1 g/dL (12.0-15.0); MCH 27.7 pg (27.0-32.0); MCV 99.1 fL (80.0-97.0); Mean Platelet Volume 10.7 fL (9.5-12.2); Platelet Count 250 X 10*3/uL (140-440); RDW 18.2 % (11.5-14.5); WBC 8.55 X 10*3/uL (4.50-10.00)
--- NOTE | 2020-11-15 11:17 | P.PN ---
Subjective Progress Note Date: 11/15/20 HISTORY OF PRESENT ILLNESS This is a 75-year-old female with past medical history of hypertension hypertensive cardiovascular disease, hyperlipidemia, diabetes mellitus type 2, coronary artery disease s/p PCI mid LAD angioplasty D1 and PCI OM, valvular heart disease status post TAVR 2018, paroxysmal atrial fibrillation not on anti- coagulation due to GI bleeding and increased falls, end stage renal disease on HD, peripheral vascular disease recurrent urinary tract infections treated by Dr. Borrego status post cystoscopy in May., Left femur fracture status post ORIF at [facility] on 10/1809/17/2020, sacral decubitus ulcer stage III with wound VAC. Patient had recent hospitalization for sacral diffuse ulcer with cellulitis status post excisional debridement with Dr. Pierson and was discharged back to [facility] to complete course of subacute rehab. Patient was brought back to the emergency center due to hypoxia and she did not receive hemodialysis yesterday. All details are not known. Patient is unable to provide. Temperature is 100.5, heart rate 96, blood pressure 127/54, pulse ox 82% on room air. Patient is normally on 3 L nasal cannula. EKG is a sinus rhythm with left axis deviation, right bundle branch block, no acute ST changes. WBC is 12, hemoglobin 7, vital count 296. Sodium 133, potassium 5.3, chloride 92, CO2 29, BUN 47 creatinine 4.18. Blood sugar 161. Lactic acid 2.9 AST 147, ALT 40, alkaline phosphatase 243. Urinalysis was turbid, leukoesterase large, WBCs greater than 182, WBC clumps are many. Levy catheter was placed in the ergency center. Coronavirus not detected. CAT scan of the abdomen and pelvis revealed no suspicious changes to suggest acute osteomyelitis or abscess formation. Atelectasis with minimal effusions in the lung bases. Mild free fluid within the abdomen. Chest x-ray reveals new right-sided airspace disease. CAT scan of the brain revealed no acute intracranial hemorrhage, midline shift or mass effect. Old encephalomalacia of the right temporal lobe. Age-related changes. [facility] and consults requested with nephrology, Wound Center and infectious disease. 11/14: A she was seen today [facility] floor. Dr. Botello is added midodrine for hypotension. Patient is status post 1 dose of Ferrlecit. She has been maintained on hemodialysis and is scheduled today. Consult for Dr. Obrien is in place and patient is currently on IV vancomycin dosing with jenise, Leslie Benjamin. Urine culture finalized today with E. coli. Blood culture showing no growth at 24 hours 2 specimens. Pro-calcitonin level ordered. Patient denies having any abdominal pain, no diarrhea. Discharge plan is for [facility] most likely on Monday. 11/15: The patient is denying any new complaints except that she doesn't have her CPAP but did utilize it through the night. Patient is not consistently using her CPAP during the day. Wound VAC to the sacral decubitus ulcer stage III was removed this morning as it was contaminated with stool. Patient did have her breakfast this morning but is eating very little only 25% or less. Patient refused her at bedtime snack and lunch and dinner yesterday. Patient has been afebrile, heart rate 91, blood pressure 149/55, pulse ox 97% on BiPAP. Repeat blood work reveals WBC 8.5, hemoglobin 6.1, platelet count 250. Electrolytes w ere normal. BUN 20 and creatinine 2.8. Blood sugars running between 77 and 98. Total bilirubin 0.5, AST 52, ALT 52, alkaline phosphatase 187. Vancomycin level 24.5. Patient will be transfused 1 unit of packed RBCs today and stool for occult blood to be checked. Do not suspect acute blood loss anemia from GI source. She is on her normal scheduled dialysis treatments on Monday and followed by nephrology. We are planning for discharge back to [facility] on Monday. REVIEW OF SYSTEMS Constitutional: No fever, no chills, no night sweats. No weight change. Reports weakness, reports fatigue reports lethargy. Reports daytime sleepiness. EENT: No headache. No blurred vision or double vision, no loss of vision. No loss of Hearing, no ringing in the ears, no dizziness. No nasal drainage or congestion. No epistaxis. No sore throat. Lungs: No shortness of breath, cough, no sputum production. No wheezing. Cardiovascular: No chest pain, no lower extremity edema. No palpitations. No paroxysmal nocturnal dyspnea. No orthopnea. No lightheadedness or dizziness. No syncopal episodes. Abdominal: No abdominal pain. No nausea, vomiting. No diarrhea. No constipation. No bloody or tarry stools.. No loss of appetite. Genitourinary: No dysuria, increased frequency, urgency. No urinary retention. Musculoskeletal: No myalgias. Reports muscle weakness, reports gait dysfunction, no frequent falls. No back pain. No neck pain. Nonweightbearing on the left leg. Integumentary: No wounds, no lesions. No rash or pruritus. No unusual bru ising. No change in hair or nails. Neurologic: No aphasia. No facial droop. No change in mentation. No head injury. No headache. No paralysis. No paresthesia. Psychiatric: No depression. No anxiety. No mood swings. Endocrine: No abnormal blood sugars. No weight change. No excessive sweating or thirst. No cold intolerance. PHYSICAL EXAMINATION Gen: This is a 75-year-old obese female. She is resting in bed and appears to be in no acute respiratory distress. HEENT: Head is atraumatic, normocephalic. Pupils equal, round. Sclerae is anicteric. NECK: Supple. No JVD. No lymphadenopathy. No thyromegaly. LUNGS: Clear to auscultation. No wheezes or rhonchi. No intercostal retractions. HEART: Regular rate and rhythm. Systolic ejection murmur at the base. ABDOMEN: Soft. Bowel sounds are present. No masses. No tenderness. EXTREMITIES: No pedal edema. No calf tenderness. NEUROLOGICAL: Patient is awake, alert and oriented x3. Cranial nerves 2 through 12 are grossly intact. ASSESSMENT AND PLAN 1. Acute hypoxic respiratory failure secondary to lack of oxygen use and patient with O2 dependence. Continue O2 therapy at 3 L nasal cannula and CPAP at night and while sleeping. 2. Metabolic encephalopathy secondary to CO2 narcosis, hypoxia. Mental status is back to baseline. Decrease gabapentin to 300 mg at bedtime. 3. Possible aspiration pneumonia on chest x-ray. Patient is on Zosyn and vancomycin and Flagyl. Consult with Dr. Obrien. 4. Lactic acidosis. 5. Possible acute E. coli urinary tract infection. Levy catheter has been placed on this admission. Continue antibiotics 6. Sacral decubitus ulcer stage III. Continue wound VAC, consult with Dr. Obrien. Continue Flagyl 500 mg 3 times daily. Patient is also on Zosyn and vancomycin 7. Recent left femur fracture status post ORIF on 10/23/[address] Cronin at [facility]. Patient is to be nonweightbearing on the left leg. [place] were removed on last admission. 8. Diabetes mellitus type 2, insulin requiring. Continue Levemir 20 units twice daily, NovoLog scale before meals and at bedtime. 9. End-stage renal disease on hemodialysis Monday. Consult with Dr. Ayan milligan. Patient is to have short dialysis today and then resume her normal schedule of Monday. 10. Chronic diastolic heart failure. Continue hemodialysis, Lasix, metolazone, Toprol-XL. 11. History of aortic stenosis status post TAVR. 12. Hypertension cardiovascular disease. Continue amiodarone 100 mg daily and metoprolol. 13. Paroxysmal atrial fibrillation. Continue amiodarone 100 mg once daily and Toprol-XL 50 mg daily. Patient is not on anticoagulation due to increased risk of fall and GI bleeding 14. History of myocardial infarction and coronary artery disease status post LAD stent in July 2017 and left circumflex in August 2017. Continue Toprol-XL 50 mg once daily. 15. GERD. Continue Protonix. 16. Hyperlipidemia. Continue Zetia 10mg daily 17. Obstructive sleep apnea, on CPAP machine at night, along with O2 supplementation. 18. Diabetic peripheral neuropathy. Continue gabapentin 300 mg decreased at bedtime. 19. Anemia of chronic kidney disease. Continue Aranesp 40 g every 7 days. One dose of Ferrlecit has been infused. Transfuse 1 unit of packed RBCs 11/15. Recurrent depression. Continue Cymbalta 60 mg orally once daily. DVT prophylaxis. Heparin subcu every 12 GI prophylaxis continue Protonix. DISCHARGE PLAN Return to [facility] on Monday. Impression and plan of care have been directed as dictated by the signing physician. Jessenia Gonzalez nurse practitioner acting as scribe for signing physician. Objective - Vital Signs Vital signs: Vital Signs Temp 98.4 F 11/15/20 08:00 Pulse 91 11/15/20 08:00 Resp 19 11/15/20 08:00 BP 149/55 11/15/20 08:00 Pulse Ox 97 11/15/20 08:00 Intake & Output 11/14/20 11/15/20 11/15/20 18:59 06:59 18:59 Intake Total 300 Output Total 0 1300 Balance 0 -1000 Weight 90.673 kg Intake: Hemodialysis 300 Output: Urine 0 Uretheral (Levy) 0 Hemodialysis 1300 Other: # Voids 0 0 - Labs CBC & Chem 7: 11/15/20 05:17 11/15/20 05:17 Labs: Abnormal Lab Results - Last 24 Hours (Table) 11/14/20 Range/Units 06:59 Procalcitonin 1.39 H (0.02-0.09) ng/mL Microbiology - Last 24 Hours (Table) 11/13/20 03:21 Blood Culture - Preliminary Blood No Growth after 48 hours 11/12/20 10:55 Blood Culture - Preliminary Blood No Growth after 48 hours 11/12/20 10:55 Urine Culture - Final Urine,Catheterized Escherichia coli
[2020-11-15 11:29] LABS: Glucose,Whole Blood 95 mg/dL (75-99)
--- NOTE | 2020-11-15 13:31 | PN ---
PROGRESS NOTE DATE OF SERVICE: 11/15/2020. Patient is seen for followup for end-stage renal disease. She tolerated her treatment well yesterday. We had about 1 L of fluid removed. She is comfortable, denies any significant complaints. PHYSICAL EXAMINATION: This morning blood pressure 149/55, heart rate 91 per minute. She is afebrile. Examination of the heart S1, S2. Examination of the lungs, bilateral breath sounds are heard. Abdomen is soft, nontender. Examination of lower extremity shows chronic skin changes. No significant edema noted. ACTIVITIES THERAPIST exam grossly intact. LABS: Show this morning hemoglobin 6.1 g/dL, sodium 140, potassium 4.0. ASSESSMENT: 1. End-stage renal disease, on hemodialysis on a Monday, , Monday schedule. 2. Anemia with no active bleeding noted, status post 1 unit packed RBCs. Maintained on Aranesp. 3. Large sacral decubitus, maintained on antibiotics as per ID. 4. Chronic kidney disease, mineral bone disorder, maintained on Renvela. PLAN: Next dialysis will be on 11/17/2020. MMODL / IJN: [id number] /
--- NOTE | 2020-11-15 13:31 | PN ---
PROGRESS NOTE DATE OF SERVICE: 11/14/2020. Patient is seen for followup for end-stage renal disease. She is lying in bed. Patient is lethargic. She is otherwise oriented x3. Pain is controlled. PHYSICAL EXAMINATION: Blood pressure 100/57, heart rate of about 100 per minute. She is afebrile. Examination of the heart S1, S2. Examination of the lungs, bilateral breath sounds are heard. Abdomen is soft, nontender. Examination of lower extremities shows no significant edema. RAIL TRANSPORTATION TABELER exam grossly intact. LABS: Last labs were done on November 12. Hemoglobin 7.0, sodium 133, potassium 5.3. ASSESSMENT: 1. End-stage renal disease, on hemodialysis on a Monday, , Monday schedule. 2. Large sacral decubitus, maintained on antibiotics. 3. Mental status changes, now improved. 4. Escherichia coli urinary tract infection. 5. Anemia of chronic disease. PLAN: Hemodialysis today which is 11/14/2020. Continue antibiotics as per ID. MMODL / IJN: [id number] /
[2020-11-15] MEDS: ACETAMINOPHEN TAB 325 MG TAB PO PRN (14:17)
[2020-11-15 16:39] LABS: Glucose,Whole Blood 107 mg/dL (75-99)
--- NOTE | 2020-11-15 16:53 | PN ---
PROGRESS NOTE DATE OF SERVICE: 11/15/2020 REASON FOR FOLLOWUP: 1. Infected sacral pressure ulcer. 2. Pneumonia. INTERVAL HISTORY: The patient is afebrile. The patient is breathing comfortably. She did require a BiPAP off and on. Hemodynamically stable. No vomiting, diarrhea or other change. The patient is currently not able to provide reliable history. PHYSICAL EXAMINATION: Blood pressure 149/55, pulse of 90, temperature 98.4. She is 97% on BiPAP. GENERAL DESCRIPTION: Is an elderly female lying in bed in no distress. RESPIRATORY SYSTEM: Unlabored breathing, decreased BS, no wheeze. HEART: S1, S2. Regular rate and rhythm. LABS: Hemoglobin 6.1, white count 8.5. BUN of 20, creatinine is 2.8. DIAGNOSTIC IMPRESSION AND PLAN: 1. Patient admitted to the hospital with weakness, shortness of breath and cough with concern for possible pneumonia. Patient clinically responding to Zosyn, to continue. Transition to short course of Avelox on discharge. 2. Patient with infected sacral pressure ulcer. Local care to continue with wound VAC. Antibiotic form of vancomycin and oral Flagyl on discharge. MMODL / IJN: [id number] /
[2020-11-15] MEDS: LIDOCAINE 5% PATCH TOPICAL SCH (17:18)
[2020-11-15 19:37] LABS: Glucose,Whole Blood 166 mg/dL (75-99)
[2020-11-15] MEDS: GABAPENTIN 300 MG CAP PO SCH (19:40)
[2020-11-15] MEDS: EZETIMIBE 10 MG TAB PO SCH (19:40)
[2020-11-15 23:29] LABS: Anisocytosis Slight; HCT 30.5 % (34.0-46.0); Hypochromasia Marked; MCH 28.5 pg (25.0-35.0); MCHC 29.8 g/dL (31.0-37.0); MCV 95.6 fL (80.0-100.0); Macrocytosis Slight; Mean Platelet Volume 8.2; Platelet Count 227 k/uL (150-450); Poikilocytosis Slight; RBC 3.19 m/uL (3.80-5.40); RDW 17.5 % (11.5-15.5); WBC 9.5 k/uL (3.8-10.6)
[2020-11-15 23:38] LABS: HGB 9.1 gm/dL (11.4-16.0)
[2020-11-16] MEDS: PIPERACILLIN-TAZOBACTAM 3.375 GM in SODIUM CHLORIDE 0.9% 100 ML IVPB SCH ×2 (00:28→12:25)
[2020-11-16 07:20] LABS: Glucose,Whole Blood 106 mg/dL (75-99)
[2020-11-16] MEDS: INSULIN ASPART (NovoLOG) 100 UNIT/ML VIAL SQ SCH ×4 (07:30→21:38)
[2020-11-16] MEDS: INSULIN DETEMIR (LEVEMIR) 100 UNIT/ML SYR SQ SCH ×2 (08:07→21:38)
[2020-11-16] MEDS: PANTOPRAZOLE 40 MG TABLET PO SCH (08:09)
[2020-11-16] MEDS: ASPIRIN 81 MG PO SCH (08:09)
[2020-11-16] MEDS: SEVELAMER 800 MG TAB PO SCH (08:09)
[2020-11-16] MEDS: METOPROLOL SUCCINATE (ER) 50 MG TAB.ER.24H PO SCH (08:09)
[2020-11-16] MEDS: DULoxetine HCL 60 MG CAPSULE.DR PO SCH (08:09)
[2020-11-16] MEDS: AMIODARONE 100 MG TAB PO SCH (08:09)
[2020-11-16] MEDS: metroNIDAZOLE 500 MG TAB PO SCH ×3 (08:09→21:39)
[2020-11-16] MEDS: COLLAGENASE 250 UNIT/GM OINTMENT 30 GM TUBE TOPICAL SCH (08:14)
--- NOTE | 2020-11-16 11:01 | P.PN ---
Subjective Patient is seen in follow-up for end-stage renal disease. She is maintained on hemodialysis on Monday schedule. Currently resting in bed. She is on 2 L is a cannula. Blood pressure stable. No active complaints. Vital signs are stable. General: The patient appeared well nourished and normally developed. HEENT: Head exam is unremarkable. Neck is without jugular venous distension. LUNGS: Breath sounds decreased. HEART: Rate and Rhythm are regular. ABDOMEN: Soft, obese. EXTREMITITES: No edema. Objective - Vital Signs Vital signs: Vital Signs Temp 98.1 F 11/16/20 08:00 Pulse 85 11/16/20 08:00 Resp 18 11/16/20 08:00 BP 138/62 11/16/20 08:00 Pulse Ox 98 11/16/20 08:00 Intake & Output 11/15/20 11/16/20 11/16/20 18:59 06:59 18:59 Intake Total 310 Balance 310 Weight 92 kg Intake: Blood Product 310 Rc As-1 Unit 310 [id number] Other: Voiding Method Indwelling Catheter # Voids 0 # Bowel Movements 1 1 - Labs CBC & Chem 7: 11/15/20 22:43 11/15/20 05:17 Labs: Abnormal Lab Results - Last 24 Hours (Table) 11/15/20 11/15/20 11/15/20 Range/Units 05:17 11:52 16:34 RBC 2.20 L (4.10-5.20) X 10*6/uL Hgb 6.1 L* (12.0-15.0) g/dL Hct 21.8 L (37.2-46.3) % MCV 99.1 H (80.0-97.0) fL MCHC 28.0 L (32.0-37.0) g/dL RDW 18.2 H (11.5-14.5) % POC Glucose (mg/dL) 107 H (75-99) mg/dL Crossmatch See Detail 11/15/20 11/15/20 11/16/20 Range/Units 19:36 22:43 06:58 RBC 3.19 L (4.10-5.20) X 10*6/uL Hgb 9.1 L D (12.0-15.0) g/dL Hct 30.5 L (37.2-46.3) % MCV (80.0-97.0) fL MCHC 29.8 L (32.0-37.0) g/dL RDW 17.5 H (11.5-14.5) % POC Glucose (mg/dL) 166 H 106 H (75-99) mg/dL Crossmatch Microbiology - Last 24 Hours (Table) 11/13/20 03:21 Blood Culture - Preliminary Blood No Growth after 72 hours 11/12/20 10:55 Blood Culture - Preliminary Blood No Growth after 72 hours Assessment and Plan Plan: Assessment: 1. End-stage renal disease maintained on hemodialysis on Monday schedule. 2. Acute blood loss anemia status post blood transfusion. No active bleeding. Maintained on Aranesp. 3. Sacral decubitus ulcer status post recent debridement. Has a wound VAC. On antibiotics per ID. 4. 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 5. Diabetes mellitus. Plan: Hemodialysis tomorrow.
[2020-11-16 11:54] LABS: Glucose,Whole Blood 123 mg/dL (75-99)
--- NOTE | 2020-11-16 12:26 | P.CNPUL ---
History of Present Illness Consult date: 11/16/20 Requesting physician: Nandini Venegas Reason for consult: pneumonia, abnormal CXR/CT Chief complaint: Abnormal chest x-ray/pneumonia. History of present illness: Pulmonary consult dated 11/16/2020. This is a 75-year-old female well-known to our service, who was brought in to the emergency room by EMS, for mental status changes, and fever. The patient was unable to give history at that time, and is currently very lethargic and sleepy, and not able to give any history at this time. She does have a sacral ulcer, nonhealing, and has a wound VAC in place. She apparently was hypoxemic during transport to the emergency department by EMS. She did not receive dialysis on the day of admission which was November 12. She is currently on 2 L. A BiPAP device is in the room. She is receiving saline at 10 mL an hour. She has a history of atrial fibrillation, CAD, CHF, diabetes, gastroesophageal reflux disease, GI bleed, hyperlipidemia, hypertension, myocardial infarction, pneumonia, sleep apnea, and chronic kidney disease with Monday and Monday hemodialysis. Her previous [facility] was in 2016, and she does have a history of methicillin-resistant staph aureus infection. Important surgical history includes PCI with stents, PT BAL the left leg, and transcatheter aortic valve replacement in 2018. Most recent lab data includes a white count 9.5, hemoglobin 9.1, hematocrit 30.5, and platelet count 227,000. Sodium 140, potassium 4, chlorides 101, CO2 26.3, anion gap 12.7, BUN 20, and creatinine 2.8. Pro-calcitonin level is 1.39. Microbiology is demonstrating E. coli in the urine. Blood cultures are negative thus far. She is currently on Flagyl, vancomycin, and Zosyn. Review of Systems REVIEW OF SYSTEMS: CONSTITUTIONAL: The patient is to lethargic and sleepy to give any additional history at this time. She was brought into the emergency room by EMS for mental status changes. NEUROLOGIC: [ Negative.] HEENT: [ Negative.] CARDIAC: [Negative.] PULMONARY: [Negative.] GI: [Negative.] : [Negative.] RHEUMATOLOGIC: [ Negative.] IMMUNOLOGIC: [ Negative.] ENDOCRINE: [Negative. ] DERMATOLOGIC: [Negative.] Past Medical History Past Medical History: Atrial Fibrillation, Coronary Artery Disease (CAD), Heart Failure, Diabetes Mellitus, Dialysis, GERD/Reflux, GI Bleed, Hyperlipidemia, Hypertension, Myocardial Infarction ([facility]), Pneumonia, Renal Disease, Sleep Apnea/CPAP/BIPAP, Vascular Disorder Additional Past Medical History / Comment(s): HEMODIALYSIS- MONDAY,MONDAY,AND MONDAY . USES WHEELCHAIR-TRANSFERS ONLY -CAN TAKE A COUPLE OF STEPS, hx. GI bleed >year ago, SOB w/exertion, uses oxygen prn @2l, see Dr Combs [facility]. TAVR Last Myocardial Infarction Date:: 2015 History of Any Multi-Drug Resistant Organisms: MRSA Date of last positivie culture/infection: 02/09/18 MDRO Source:: LT THIRD TOE Past Surgical History: Back Surgery, Cholecystectomy, Heart Catheterization, Heart Catheterization With Stent, Hysterectomy, Orthopedic Surgery Additional Past Surgical History / Comment(s): PCI with stents, several back surgeries-lumbar, bilateral carpal tunnel releases, bilateral cataract removals, port then fistula for hemodialysis. PTBA to left leg 03-02-18. TAVR in [address] Rock at [facility] Past Anesthesia/Blood Transfusion Reactions: Previous Problems w/ Anesthesia Additional Past Anesthesia/Blood Transfusion Reaction / Comment(s): Confusion that resolved. Date of Last Stent Placement:: 10/06/17 Past Psychological History: No Psychological Hx Reported Additional Psychological History / Comment(s): Single but lives with her daughter who is her caregiver Smoking Status: Never smoker Past Alcohol Use History: None Reported Additional Past Alcohol Use History / Comment(s): Patient had exposure to secondhand smoke with her . Past Drug Use History: None Reported - Past Family History Father Additional Family Medical History / Comment(s): Brain aneurysm ; age 72 Sister(s) Family Medical History: Hypertension Additional Family Medical History / Comment(s): Aortic stenosis; mitral valve disease Mother Family Medical History: No Reported History, AFIB, CVA/TIA, Hypertension Additional Family Medical History / Comment(s): mother age 83 Daughter(s) Family Medical History: Asthma Son(s) Family Medical History: Asthma Medications and Allergies Home Medications Medication Instructions Recorded Confirmed Type DULoxetine HCL [Cymbalta] 60 mg PO DAILY@0900 08/04/14 11/12/20 History Amiodarone HCl [Pacerone] 100 mg PO DAILY@0900 11/22/15 11/12/20 History Ezetimibe [Zetia] 10 mg PO HS@209911/22/15 11/12/20 History Omeprazole 20 mg PO DAILY@0900 12/25/16 11/12/20 History Aspirin [Adult Low Dose Aspirin EC] 81 mg PO DAILY@0900 03/02/18 11/12/20 Histo ry Metoprolol Succinate (ER) [Toprol 50 mg PO DAILY@0900 01/12/20 11/12/20 History XL] Sevelamer [Renvela] 800 mg PO DIRECTED 01/12/20 11/12/20 History Insulin Glargine,Hum.rec.anlog 20 units SQ BID@0800,209910/31/20 11/12/20 History [Semglee Pen] Darbepoetin Aron [Aranesp] 40 mcg SQ Q7D syringe 11/06/20 11/12/20 Rx Gabapentin 300 mg PO BID@0900,2100 #14 cap 11/06/20 11/12/20 Rx traMADol HCL 50 mg PO Q6H PRN #28 tab 11/06/20 11/12/20 Rx Insulin Lispro [humaLOG Kwikpen] See Protocol SQ ACHS 11/12/20 11/12/20 History Vancomycin 1,000 mg IVPB MOWEFR@209911/12/20 11/12/20 History dronabinoL [Marinol] 2.5 mg PO AC-BID@0900,1700 11/12/20 11/12/20 History metroNIDAZOLE [Flagyl] 500 mg PO TID@0900,1300,2100 11/12/20 11/12/20 History Allergies Allergy/AdvReac Type Severity Reaction Status Date / Time KUSHAL Inhibitors Allergy Swelling Verified 11/12/20 13:15 ARB-Angiotensin Receptor Allergy Swelling Verified 11/12/20 13:15 Antagonist cephalexin monohydrate Allergy Rash/Hives, Verified 11/12/20 13:15 [From Keflex] MOUTH SWELLING propoxyphene HCl AdvReac Hallucinati Verified 11/12/20 13:15 [From Darvon] ons Wnyjrii-Iew-Pwk Reductase AdvReac Myalgia Verified 11/12/20 13:15 Inhibitor Physical Exam Osteopathic Statement: *. No significant issues noted on an osteopathic structural exam other than those noted in the History and Physical/Consult. Vitals: Vital Signs Temp Pulse Pulse Resp BP BP Pulse Ox 11/16/20 08:00 98.1 F 85 18 138/62 98 11/16/20 06:58 95 11/16/20 02:31 98.0 F 80 18 156/66 97 11/15/20 19:55 98.7 F 81 16 149/68 96 11/15/20 18:18 97.1 F L 84 20 116/75 100 11/15/20 15:20 98.5 F 77 20 142/79 99 11/15/20 14:50 98.5 F 84 20 111/81 96 11/15/20 14:40 97.9 F 87 20 118/78 97 11/15/20 14:00 97.7 F 83 18 123/55 96 Intake and Output 11/15/20 11/16/20 11/16/20 22:59 06:59 14:59 Intake Total 310 Balance 310 Intake: Blood Product 310 Rc As-1 Unit 310 [id number] Other: Voiding Method Indwelling Catheter # Voids 0 # Bowel Movements 1 1 Weight 92 kg No acute distress, currently on 2 L nasal cannula, very lethargic and sleepy. Not able to give any additional history. HEENT examination is grossly unremarkable. Neck supple. Full range of motion. No adenopathy thyromegaly or neck vein distention. Cardiovascular examination reveals regular rhythm rate. S1-S2 normal. No S3 or S4. No discernible murmur noted. Heart sounds are very distant. Heart rate 85 bpm. Lungs reveal mostly clear breath sounds. Scattered crackles are noted. No wheezes. A few mild rhonchi are noted. Breath sounds are equal bilaterally. Abdomen soft bowel sounds are heard. No masses or tenderness. Extremities are intact. No cyanosis clubbing or edema. Skin is without rash or lesion. Wound VAC in place. Neurologic examination is difficult to assess given her mental status changes. Results - Laboratory Findings CBC and BMP: 11/15/20 22:43 11/15/20 05:17 ABG ABG pH 7.45 (7.35-7.45) 11/12/20 11:32 ABG pCO2 44 mmHg (35-45) 11/12/20 11:32 ABG pO2 66 mmHg (83-108) L 11/12/20 11:32 ABG O2 Saturation 93.0 % (94-97) L 11/12/20 11:32 PT/INR, D-dimer PT 11.0 sec (9.0-12.0) 11/12/20 10:55 INR 1.0 (<1.2) 11/12/20 10:55 Abnormal lab findings: Abnormal Labs 11/12/20 11/12/20 11/12/20 10:51 10:55 10:55 WBC 12.0 H RBC 2.39 L Hgb 7.0 L Hct 22.0 L MCV MCHC RDW 17.7 H Neutrophils # 9.9 H ABG pO2 ABG HCO3 ABG Total CO2 ABG O2 Saturation Sodium Potassium Chloride Anion Gap BUN Creatinine Est GFR (CKD-EPI)AfAm Est GFR (CKD-EPI)NonAf BUN/Creatinine Ratio Glucose POC Glucose (mg/dL) 164 H Plasma Lactic Acid Satinder Calcium AST ALT Alkaline Phosphatase Total Protein Albumin Albumin/Globulin Ratio Procalcitonin Urine Appearance Turbid H Urine Protein 2+ H Urine Blood Moderate H Ur Leukocyte Esterase Large H Urine RBC 63 H Urine WBC >182 H Urine WBC Clumps Many H Amorphous Sediment Rare H Urine Bacteria Many H Urine Mucus Rare H Crossmatch 11/12/20 11/12/20 11/12/20 10:55 10:55 11:32 WBC RBC Hgb Hct MCV MCHC RDW Neutrophils # ABG pO2 66 L ABG HCO3 30 H ABG Total CO2 31 H ABG O2 Saturation 93.0 L Sodium 133 L Potassium 5.3 H Chloride 92 L Anion Gap BUN 47 H Creatinine 4.18 H Est GFR (CKD-EPI)AfAm Est GFR (CKD-EPI)NonAf BUN/Creatinine Ratio Glucose 161 H POC Glucose (mg/dL) Plasma Lactic Acid Satinder 2.9 H* Calcium AST 147 H ALT 40 H Alkaline Phosphatase 243 H Total Protein Albumin 3.2 L Albumin/Globulin Ratio Procalcitonin Urine Appearance Urine Protein Urine Blood Ur Leukocyte Esterase Urine RBC Urine WBC Urine WBC Clumps Amorphous Sediment Urine Bacteria Urine Mucus Crossmatch 11/12/20 11/13/20 11/13/20 20:52 11:35 16:31 WBC RBC Hgb Hct MCV MCHC RDW Neutrophils # ABG pO2 ABG HCO3 ABG Total CO2 ABG O2 Saturation Sodium Potassium Chloride Anion Gap BUN Creatinine Est GFR (CKD-EPI)AfAm Est GFR (CKD-EPI)NonAf BUN/Creatinine Ratio Glucose POC Glucose (mg/dL) 111 H 198 H 235 H Plasma Lactic Acid Satinder Calcium AST ALT Alkaline Phosphatase Total Protein Albumin Albumin/Globulin Ratio Procalcitonin Urine Appearance Urine Protein Urine Blood Ur Leukocyte Esterase Urine RBC Urine WBC Urine WBC Clumps Amorphous Sediment Urine Bacteria Urine Mucus Crossmatch 11/13/20 11/14/20 11/15/20 20:08 06:59 05:17 WBC RBC 2.20 L Hgb 6.1 L* Hct 21.8 L MCV 99.1 H MCHC 28.0 L RDW 18.2 H Neutrophils # ABG pO2 ABG HCO3 ABG Total CO2 ABG O2 Saturation Sodium Potassium Chloride Anion Gap BUN Creatinine Est GFR (CKD-EPI)AfAm Est GFR (CKD-EPI)NonAf BUN/Creatinine Ratio Glucose POC Glucose (mg/dL) 196 H Plasma Lactic Acid Satinder Calcium AST ALT Alkaline Phosphatase Total Protein Albumin Albumin/Globulin Ratio Procalcitonin 1.39 H Urine Appearance Urine Protein Urine Blood Ur Leukocyte Esterase Urine RBC Urine WBC Urine WBC Clumps Amorphous Sediment Urine Bacteria Urine Mucus Crossmatch 11/15/20 11/15/20 11/15/20 05:17 11:52 16:34 WBC RBC Hgb Hct MCV MCHC RDW Neutrophils # ABG pO2 ABG HCO3 ABG Total CO2 ABG O2 Saturation Sodium Potassium Chloride Anion Gap 12.70 H BUN Creatinine 2.8 H Est GFR (CKD-EPI)AfAm 18.5 L Est GFR (CKD-EPI)NonAf 16.0 L BUN/Creatinine Ratio 7.14 L Glucose POC Glucose (mg/dL) 107 H Plasma Lactic Acid Satinder Calcium 8.0 L AST 52 H ALT 52 H Alkaline Phosphatase 187 H Total Protein 5.8 L Albumin 2.90 L Albumin/Globulin Ratio 1.00 L Procalcitonin Urine Appearance Urine Protein Urine Blood Ur Leukocyte Esterase Urine RBC Urine WBC Urine WBC Clumps Amorphous Sediment Urine Bacteria Urine Mucus Crossmatch See Detail 11/15/20 11/15/20 11/16/20 19:36 22:43 06:58 WBC RBC 3.19 L Hgb 9.1 L D Hct 30.5 L MCV MCHC 29.8 L RDW 17.5 H Neutrophils # ABG pO2 ABG HCO3 ABG Total CO2 ABG O2 Saturation Sodium Potassium Chloride Anion Gap BUN Creatinine Est GFR (CKD-EPI)AfAm Est GFR (CKD-EPI)NonAf BUN/Creatinine Ratio Glucose POC Glucose (mg/dL) 166 H 106 H Plasma Lactic Acid Satinder Calcium AST ALT Alkaline Phosphatase Total Protein Albumin Albumin/Globulin Ratio Procalcitonin Urine Appearance Urine Protein Urine Blood Ur Leukocyte Esterase Urine RBC Urine WBC Urine WBC Clumps Amorphous Sediment Urine Bacteria Urine Mucus Crossmatch 11/16/20 11:47 WBC RBC Hgb Hct MCV MCHC RDW Neutrophils # ABG pO2 ABG HCO3 ABG Total CO2 ABG O2 Saturation Sodium Potassium Chloride Anion Gap BUN Creatinine Est GFR (CKD-EPI)AfAm Est GFR (CKD-EPI)NonAf BUN/Creatinine Ratio Glucose POC Glucose (mg/dL) 123 H Plasma Lactic Acid Satinder Calcium AST ALT Alkaline Phosphatase Total Protein Albumin Albumin/Globulin Ratio Procalcitonin Urine Appearance Urine Protein Urine Blood Ur Leukocyte Esterase Urine RBC Urine WBC Urine WBC Clumps Amorphous Sediment Urine Bacteria Urine Mucus Crossmatch - Diagnostic Findings Chest x-ray: image reviewed Assessment and Plan Assessment: Possible aspiration pneumonia, right lung, in a patient with mental status changes/lethargy/somnolence. Escherichia coli urinary tract infection. History of atrial fibrillation. History of CAD, with stent placement. History of heart failure. History of diabetes mellitus. Status post transcatheter aortic valve replacement, 2018. PTBA, left leg, 2018. History of end-stage renal disease, on 3 time a week hemodialysis. Gastroesophageal reflux disease. History of GI bleed. History of hyperlipidemia. History of hypertension. History of myocardial infarction. Prior history of pneumonia. History of sleep apnea syndrome. Plan: Plan dated 11/16/2020. Currently, the patient is being seen by multiple specialists including infectious diseases, and is currently on vancomycin, Zosyn, and Flagyl. The only current culture data which is positive was the Escherichia coli in the urine. I believe the antibiotics can probably be consolidated. Chest x-ray shows an infiltrate in the right lung. This is back on the . A repeat chest x-ray will be ordered. The patient is not demonstrating any signs or s ymptoms of respiratory distress at this time and is currently on 2 L with adequate saturations. The patient is receiving BiPAP at nighttime. Additional recommendations and suggestions are forthcoming. Time with Patient: Greater than 30
--- NOTE | 2020-11-16 12:51 | XR ---
EXAMINATION TYPE: XR chest 1V portable DATE OF EXAM: 11/16/2020 COMPARISON: Chest x-ray 11/12/2020 HISTORY: Pneumonia TECHNIQUE: Single frontal view of the chest is obtained. FINDINGS: Lung volumes are low. There is thickening along the right lateral pleural margin, blunting the costophrenic angles. Some improvement in aeration may be present in the right lung. Patient is s tatus post TAVR procedure. Postop changes are noted to the thoracic lumbar spine. No evident pneumoth orax. Cardiac mediastinal silhouette not significantly changed accounting for differences in techniqu e. Metallic densities are present in left hilar region. Aorta is dense. IMPRESSION: Correlate for pneumonia, edema, there may be associated effusion. Heart may be enlarged.
--- NOTE | 2020-11-16 12:55 | P.PN ---
Subjective Progress Note Date: 11/16/20 HISTORY OF PRESENT ILLNESS This is a 75-year-old female with past medical history of hypertension hypertensive cardiovascular disease, hyperlipidemia, diabetes mellitus type 2, coronary artery disease s/p PCI mid LAD angioplasty D1 and PCI OM, valvular heart disease status post TAVR 2018, paroxysmal atrial fibrillation not on anti- coagulation due to GI bleeding and increased falls, end stage renal disease on HD, peripheral vascular disease recurrent urinary tract infections treated by Dr. Borrego status post cystoscopy in May., Left femur fracture status post ORIF at [facility] on 10/1809/17/2020, sacral decubitus ulcer stage III with wound VAC. Patient had recent hospitalization for sacral diffuse ulcer with cellulitis status post excisional debridement with Dr. Pierson and was discharged back to [facility] to complete course of subacute rehab. Patient was brought back to the emergency center due to hypoxia and she did not receive hemodialysis yesterday. All details are not known. Patient is unable to provide. Temperature is 100.5, heart rate 96, blood pressure 127/54, pulse ox 82% on room air. Patient is normally on 3 L nasal cannula. EKG is a sinus rhythm with left axis deviation, right bundle branch block, no acute ST changes. WBC is 12, hemoglobin 7, vital count 296. Sodium 133, potassium 5.3, chloride 92, CO2 29, BUN 47 creatinine 4.18. Blood sugar 161. Lactic acid 2.9 AST 147, ALT 40, alkaline phosphatase 243. Urinalysis was turbid, leukoesterase large, WBCs greater than 182, WBC clumps are many. Levy catheter was placed in the ergency center. Coronavirus not detected. CAT scan of the abdomen and pelvis revealed no suspicious changes to suggest acute osteomyelitis or abscess formation. Atelectasis with minimal effusions in the lung bases. Mild free fluid within the abdomen. Chest x-ray reveals new right-sided airspace disease. CAT scan of the brain revealed no acute intracranial hemorrhage, midline shift or mass effect. Old encephalomalacia of the right temporal lobe. Age-related changes. Patient has been admitted to the [facility] floor and consults requested with nephrology, Wound Center and infectious disease. 11/14: A she was seen today on the [facility] floor. Dr. Botello is added midodrine for hypotension. Patient is status post 1 dose of Ferrlecit. She has been maintained on hemodialysis and is scheduled today. Consult for Dr. Obrien is in place and patient is currently on IV vancomycin dosing with dialysis, Zosyn, Flagyl. Urine culture finalized today with E. coli. Blood culture showing no growth at 24 hours 2 specimens. Pro-calcitonin level ordered. Patient denies having any abdominal pain, no diarrhea. Discharge plan is for [facility] most likely on Monday. 11/15: The patient is denying any new complaints except that she doesn't have her CPAP but did utilize it through the night. Patient is not consistently using her CPAP during the day. Wound VAC to the sacral decubitus ulcer stage III was removed this morning as it was contaminated with stool. Patient did have her breakfast this morning but is eating very little only 25% or less. Patient refused her at bedtime snack and lunch and dinner yesterday. Patient has been afebrile, heart rate 91, blood pressure 149/55, pulse ox 97% on BiPAP. Repeat blood work reveals WBC 8.5, hemoglobin 6.1, platelet count 250. Electrolytes w ere normal. BUN 20 and creatinine 2.8. Blood sugars running between 77 and 98. Total bilirubin 0.5, AST 52, ALT 52, alkaline phosphatase 187. Vancomycin level 24.5. Patient will be transfused 1 unit of packed RBCs today and stool for occult blood to be checked. Do not suspect acute blood loss anemia from GI source. She is on her normal scheduled dialysis treatments on Monday and followed by nephrology. We are planning for discharge back to [facility] on Monday. 11/16: Patient is seen today in follow-up. She is on oxygen today during our eval. She is awake. Consult for pulmonary medicine has been added regarding pneumonia, obstructive sleep apnea. Repeat chest x-ray has been ordered. Nephrology is following with plan to continue hemodialysis on her normal schedu le of Monday. Dr. Obrien has recommended continuing oral Flagyl and vancomycin IV regarding the sacral pressure ulcer. He is recommending to transition Zosyn to Avelox time of discharge. Patient has been afebrile, heart rate 85, blood pressure 138/62, pulse ox 90% on 2 L nasal c annula. 9.5, hemoglobin 9.1, platelet count 227. Blood sugars are running between 106 and 166. Vancomycin 23.1. Anticipate discharge to [facility] tomorrow. REVIEW OF SYSTEMS Constitutional: No fever, no chills, no night sweats. No weight change. Reports weakness, reports fatigue reports lethargy. Reports daytime sleepiness. EENT: No headache. No blurred vision or double vision, no loss of vision. No loss of Hearing, no ringing in the ears, no dizziness. No nasal drainage or congestion. No epistaxis. No sore throat. Lungs: No shortness of breath, cough, no sputum production. No wheezing. Cardiovascular: No chest pain, no lower extremity edema. No palpitations. No paroxysmal nocturnal dyspnea. No orthopnea. No lightheadedness or dizziness. No syncopal episodes. Abdominal: No abdominal pain. No nausea, vomiting. No diarrhea. No constipation. No bloody or tarry stools.. No loss of appetite. Genitourinary: No dysuria, increased frequency, urgency. No urinary retention. Musculoskeletal: No myalgias. Reports muscle weakness, reports gait dysf unction, no frequent falls. No back pain. No neck pain. Nonweightbearing on the left leg. Integumentary: No wounds, no lesions. No rash or pruritus. No unusual bruising. No change in hair or nails. Neurologic: No aphasia. No facial droop. No change in mentation. No head injury. No headache. No paralysis. No paresthesia. Psychiatric: No depression. No anxiety. No mood swings. Endocrine: No abnormal blood sugars. No weight change. PHYSICAL EXAMINATION Gen: This is a 75-year-old obese female. She is resting in bed and appears to be in no acute respiratory distress. HEENT: Head is atraumatic, normocephalic. Pupils equal, round. Sclerae is anicteric. NECK: Supple. No JVD. No lymphadenopathy. No thyromegaly. LUNGS: Clear to auscultation. No wheezes or rhonchi. No intercostal retractions. HEART: Regular rate and rhythm. Systolic ejection murmur at the base. ABDOMEN: Soft. Bowel sounds are present. No masses. No tenderness. EXTREMITIES: No pedal edema. No calf tenderness. NEUROLOGICAL: Patient is awake, alert and oriented x3. Cranial nerves 2 through 12 are grossly intact. ASSESSMENT AND PLAN 1. Acute hypoxic respiratory failure secondary to lack of oxygen use and patient with O2 dependence. Continue O2 therapy at 3 L nasal cannula and CPAP at night and while sleeping. 2. Metabolic encephalopathy secondary to CO2 narcosis, hypoxia. Mental status is back to baseline. Decrease gabapentin to 300 mg at bedtime. 3. Possible aspiration pneumonia on chest x-ray. Patient is on Zosyn and vancomycin and Flagyl. Consult with Dr. Obrien. Continue Zosyn for now and Avelox at the time of discharge. 4. Lactic acidosis. 5. Possible acute E. coli urinary tract infection. Levy catheter has been placed on this admission. Continue antibiotics 6. Sacral decubitus ulcer stage III. Continue wound VAC, consult with Dr. Obrien. Continue Flagyl 500 mg 3 times daily and vancomycin as was previously ar ranged. 7. Recent left femur fracture status post ORIF on 10/23/[address] Cronin at [facility]. Patient is to be nonweightbearing on the left leg. [place] were removed on last admission. 8. Diabetes mellitus type 2, insulin requiring. Continue Levemir 20 units twice daily, NovoLog scale before meals and at bedtime. 9. End-stage renal disease on hemodialysis Monday. Consult with Dr. Ayan milligan. Continue hemodialysis on patient's normal schedule of Monday. 10. Chronic diastolic heart failure. Continue hemodialysis, Lasix, metolazone, Toprol-XL. 11. History of aortic stenosis status post TAVR. 12. Hypertension cardiovascular disease. Continue amiodarone 100 mg daily and metoprolol. 13. Paroxysmal atrial fibrillation. Continue amiodarone 100 mg once daily and Toprol-XL 50 mg daily. Patient is not on anticoagulation due to increased risk of fall and GI bleeding 14. History of myocardial infarction and coronary artery disease status post LAD stent in July 2017 and left circumflex in August 2017. Continue Toprol-XL 50 mg once daily. 15. GERD. Continue Protonix. 16. Hyperlipidemia. Continue Zetia 10mg daily 17. Obstructive sleep apnea, on CPAP machine at night, along with O2 supplementation. 18. Diabetic peripheral neuropathy. Continue gabapentin 300 mg decreased at bedtime. 19. Anemia of chronic kidney disease. Continue Aranesp 40 g every 7 days. One dose of Ferrlecit has been infused. Transfuse 1 unit of packed RBCs 11/15. Recurrent depression. Continue Cymbalta 60 mg orally once daily. DVT prophylaxis. Heparin subcu every 12 GI prophylaxis continue Protonix. DISCHARGE PLAN Return to [facility] on Monday. Impression and plan of care have been directed as dictated by the signing physician. Jessenia Gonzalez nurse practitioner acting as scribe for signing phys corryan. Objective - Vital Signs Vital signs: Vital Signs Temp 98.1 F 11/16/20 08:00 Pulse 85 11/16/20 08:00 Resp 18 11/16/20 08:00 BP 138/62 11/16/20 08:00 Pulse Ox 98 11/16/20 08:00 Intake & Output 11/15/20 11/16/20 11/16/20 18:59 06:59 18:59 Intake Total 310 Balance 310 Weight 92 kg Intake: Blood Product 310 Rc As-1 Unit 310 [id number] Other: Voiding Method Indwelling Catheter # Voids 0 # Bowel Movements 1 1 - Labs CBC & Chem 7: 11/15/20 22:43 11/15/20 05:17 Labs: Abnormal Lab Results - Last 24 Hours (Table) 11/15/20 11/15/20 11/15/20 Range/Units 05:17 11:52 16:34 RBC 2.20 L (4.10-5.20) X 10*6/uL Hgb 6.1 L* (12.0-15.0) g/dL Hct 21.8 L (37.2-46.3) % MCV 99.1 H (80.0-97.0) fL MCHC 28.0 L (32.0-37.0) g/dL RDW 18.2 H (11.5-14.5) % POC Glucose (mg/dL) 107 H (75-99) mg/dL Crossmatch See Detail 11/15/20 11/15/20 11/16/20 Range/Units 19:36 22:43 06:58 RBC 3.19 L (4.10-5.20) X 10*6/uL Hgb 9.1 L D (12.0-15.0) g/dL Hct 30.5 L (37.2-46.3) % MCV (80.0-97.0) fL MCHC 29.8 L (32.0-37.0) g/dL RDW 17.5 H (11.5-14.5) % POC Glucose (mg/dL) 166 H 106 H (75-99) mg/dL Crossmatch Microbiology - Last 24 Hours (Table) 11/13/20 03:21 Blood Culture - Preliminary Blood No Growth after 72 hours 11/12/20 10:55 Blood Culture - Preliminary Blood No Growth after 72 hours
[2020-11-16] MEDS: LIDOCAINE 5% PATCH TOPICAL SCH (15:23)
[2020-11-16 16:35] LABS: Glucose,Whole Blood 157 mg/dL (75-99)
[2020-11-16 21:23] LABS: Glucose,Whole Blood 164 mg/dL (75-99)
[2020-11-16] MEDS: GABAPENTIN 300 MG CAP PO SCH (21:39)
[2020-11-16] MEDS: EZETIMIBE 10 MG TAB PO SCH (21:39)
--- NOTE | 2020-11-16 23:26 | PN ---
PROGRESS NOTE DATE OF SERVICE: 11/16/2020 REASON FOR FOLLOWUP: 1. Infected sacral pressure ulcer. 2. Pneumonia. INTERVAL HISTORY: Patient is afebrile. The patient is breathing comfortably. The patient remains to be sleepy lethargic and unable to provide any history. No vomiting, diarrhea or other changes reported. PHYSICAL EXAMINATION: Blood pressure 152/69 with a pulse of 89, temperature 98.3. She is 97% on 2 L nasal cannula. General description is an elderly female lying in bed in no distress. Respiratory system: Unlabored breathing, decreased intensity of breath sounds. No wheeze. Heart: S1, S2. Regular rate and rhythm. Abdomen soft, no tenderness. LABS: Vanco random was 23.1. Urine showing an E coli. DIAGNOSTIC IMPRESSION AND PLAN: 1. Patient presented to hospital with acute shortness of breath concerning for pneumonia. Patient is covered with Zosyn. Try to obtain sputum. Finish therapy with short course of oral Avelox. 2. Patient with infected sacral pressure ulcer, local care to continue with wound VAC another 2-3 day course of IV cefazolin or Flagyl on discharge. 3. Continue supportive care. MMODL / IJN: [id number] /
[2020-11-17] MEDS: PIPERACILLIN-TAZOBACTAM 3.375 GM in SODIUM CHLORIDE 0.9% 100 ML IVPB SCH ×2 (01:16→13:50)
[2020-11-17 06:35] LABS: Vancomycin,Random 22.8 ug/mL
[2020-11-17 06:58] LABS: Glucose,Whole Blood 93 mg/dL (75-99)
[2020-11-17] MEDS: INSULIN ASPART (NovoLOG) 100 UNIT/ML VIAL SQ SCH ×4 (07:00→20:43)
[2020-11-17] MEDS: INSULIN DETEMIR (LEVEMIR) 100 UNIT/ML SYR SQ SCH ×2 (07:12→20:43)
[2020-11-17 09:12] LABS: ABG Base Excess 3.5 mmol/L; ABG HCO3 28 mmol/L (21-25); ABG Oxygen Saturation 90.2 % (94-97); ABG PCO2 40 mmHg (35-45); ABG PH 7.45 (7.35-7.45); ABG TCO2 29 mmol/L (19-24); Allen Test Performed? Yes
[2020-11-17 09:20] LABS: ABG PO2 56 mmHg (83-108)
[2020-11-17] MEDS: COLLAGENASE 250 UNIT/GM OINTMENT 30 GM TUBE TOPICAL SCH (09:30)
[2020-11-17] MEDS: PANTOPRAZOLE 40 MG TABLET PO SCH (09:31)
[2020-11-17] MEDS: AMIODARONE 100 MG TAB PO SCH (09:32)
[2020-11-17] MEDS: DULoxetine HCL 60 MG CAPSULE.DR PO SCH (09:32)
[2020-11-17] MEDS: ASPIRIN 81 MG PO SCH (09:32)
[2020-11-17] MEDS: SEVELAMER 800 MG TAB PO SCH (09:32)
[2020-11-17] MEDS: METOPROLOL SUCCINATE (ER) 50 MG TAB.ER.24H PO SCH (09:32)
[2020-11-17] MEDS: metroNIDAZOLE 500 MG TAB PO SCH ×3 (09:32→20:42)
--- NOTE | 2020-11-17 09:38 | P.PN ---
Subjective Progress Note Date: 11/17/20 Principal diagnosis: Mental status changes. Pulmonary consult dated 11/16/2020. This is a 75-year-old female well-known to our service, who was brought in to the emergency room by EMS, for mental status changes, and fever. The patient was unable to give history at that time, and is currently very lethargic and sleepy, and not able to give any history at this time. She does have a sacral ulcer, nonhealing, and has a wound VAC in place. She apparently was hypoxemic during transport to the emergency department by EMS. She did not receive dialysis on the day of admission which was November 12. She is currently on 2 L. A BiPAP device is in the room. She is receiving saline at 10 mL an hour. She has a history of atrial fibrillation, CAD, CHF, diabetes, gastroesophageal reflux disease, GI bleed, hyperlipidemia, hypertension, myocardial infarction, pneumonia, sleep apnea, and chronic kidney disease with Monday and Monday hemodialysis. Her previous IN was in 2016, and she does have a history of methicillin-resistant staph aureus infection. Important surgical history includes PCI with stents, PT BAL the left leg, and transcatheter aortic valve replacement in 2018. Most recent lab data includes a white count 9.5, hemoglobin 9.1, hematocrit 30.5, and platelet count 227,000. Sodium 140, potassium 4, chlorides 101, CO2 26.3, anion gap 12.7, BUN 20, and creatinine 2.8. Pro-calcitonin level is 1.39. Microbiology is demonstrating E. coli in the urine. Blood cultures are negative thus far. She is currently on Flagyl, vancomycin, and Zosyn. Progress note dated 11/17/2020. 75-year-old female, well-known to our service. He seen her many times before. She came into the emergency department with primarily mental status changes. The patient currently is on BiPAP at 12/6 and 30%. A blood gas will be ordered. She is very somnolent and lethargic, but does arouse on stimulation. The blood gas today shows a pO2 of 56, pCO2 40, pH is 7.45. Saturations are 90%. That was on 25% oxygen. Her creatinine today is 4.31. Chest x-ray from yesterday was evaluated. She's about the same today clinically she was yesterday. Objective - Vital Signs Vital signs: Vital Signs Temp 97.5 F L 11/17/20 07:34 Pulse 77 11/17/20 07:34 Resp 17 11/17/20 07:34 BP 150/62 11/17/20 07:34 Pulse Ox 97 11/17/20 07:34 Intake & Output 11/16/20 11/17/20 11/17/20 18:59 06:59 18:59 Weight 92.5 kg Other: Voiding Method Indwelling Catheter # Voids 0 0 # Bowel Movements 1 - Exam No acute distress, currently on BiPAP, at 12/6 and 25%. She remains very lethargic and somnolent. Saturations are 90%. HEENT examination is grossly unremarkable. Neck supple. Full range of motion. No adenopathy thyromegaly or neck vein distention. Cardiovascular examination reveals regular rhythm rate. S1-S2 normal. No S3 or S4. No discernible murmur noted. Heart sounds are very distant. Heart rate 77 bpm. Lungs reveal mostly clear breath sounds. Scattered crackles are noted. No wheezes. A few mild rhonchi are noted. Breath sounds are equal bilaterally. Abdomen soft bowel sounds are heard. No masses or tenderness. Extremities are intact. No cyanosis clubbing or edema. Skin is without rash or lesion. Wound VAC in place. Neurologic examination is difficult to assess given her mental status changes. - Labs CBC & Chem 7: 11/15/20 22:43 11/17/20 05:51 Labs: Abnormal Lab Results - Last 24 Hours (Table) 11/16/20 11/16/20 11/16/20 Range/Units 11:47 16:29 21:22 ABG pO2 (83-108) mmHg ABG HCO3 (21-25) mmol/L ABG Total CO2 (19-24) mmol/L ABG O2 Saturation (94-97) % Creatinine (0.52-1.04) mg/dL POC Glucose (mg/dL) 123 H 157 H 164 H (75-99) mg/dL 11/17/20 11/17/20 Range/Units 05:51 09:09 ABG pO2 56 L* (83-108) mmHg ABG HCO3 28 H (21-25) mmol/L ABG Total CO2 29 H (19-24) mmol/L ABG O2 Saturation 90.2 L (94-97) % Creatinine 4.31 H (0.52-1.04) mg/dL POC Glucose (mg/dL) (75-99) mg/dL Microbiology - Last 24 Hours (Table) 11/13/20 03:21 Blood Culture - Preliminary Blood No Growth after 96 hours 11/12/20 10:55 Blood Culture - Preliminary Blood No Growth after 96 hours Assessment and Plan Assessment: Possible aspiration pneumonia, right lung, in a patient with mental status changes/lethargy/somnolence. Escherichia coli urinary tract infection. History of atrial fibrillation. History of CAD, with stent placement. History of heart failure. History of diabetes mellitus. Status post transcatheter aortic valve replacement, 2018. PTBA, left leg, 2018. History of end-stage renal disease, on 3 time a week hemodialysis. Gastroesophageal reflux disease. History of GI bleed. History of hyperlipidemia. History of hypertension. History of myocardial infarction. Prior history of pneumonia. History of sleep apnea syndrome. Plan: Plan dated 11/16/2020. Currently, the patient is being seen by multiple specialists including infectious diseases, and is currently on vancomycin, Zosyn, and Flagyl. The only current culture data which is positive was the Escherichia coli in the urine. I believe the antibiotics can probably be consolidated. Chest x-ray shows an infiltrate in the right lung. This is back on the 15. A repeat chest x-ray will be ordered. The patient is not demonstrating any signs or symptoms of respiratory distress at this time and is currently on 2 L with adequate saturations. The patient is receiving BiPAP at nighttime. Additional recommendations and suggestions are forthcoming. Plan dated 11/25/2020. The patient remains on antibiotics in the form of vancomycin, Flagyl, and Zosyn. She is being seen by infectious diseases. She does have E. coli in the urine. Blood gases were reasonable. Return the FiO2 down from 30% down to 25%. Sa turations are 90%. She's currently on BiPAP. She can be transitioned to 2 L nasal cannula. Additional recommendations are made. We will continue to follow. Prognosis is guarded. Palliative care consult or hospice consult should be considered. Time with Patient: Less than 30
--- NOTE | 2020-11-17 10:23 | P.PN ---
Subjective Patient is seen in follow-up for end-stage renal disease. She is maintained on hemodialysis on Monday schedule. Currently resting in bed. On BiPAP. Blood pressure stable. No active complaints. Vital signs are stable. General: The patient appeared well nourished and normally developed. HEENT: Head exam is unremarkable. Neck is without jugular venous distension. LUNGS: Breath sounds decreased. HEART: Rate and Rhythm are regular. ABDOMEN: Soft, obese. EXTREMITITES: No edema. Objective - Vital Signs Vital signs: Vital Signs Temp 97.5 F L 11/17/20 07:34 Pulse 77 11/17/20 07:34 Resp 17 11/17/20 07:34 BP 150/62 11/17/20 07:34 Pulse Ox 97 11/17/20 07:34 Intake & Output 11/16/20 11/17/20 11/17/20 18:59 06:59 18:59 Weight 92.5 kg Other: Voiding Method Indwelling Catheter # Voids 0 0 # Bowel Movements 1 - Labs CBC & Chem 7: 11/15/20 22:43 11/17/20 05:51 Labs: Abnormal Lab Results - Last 24 Hours (Table) 11/16/20 11/16/20 11/16/20 Range/Units 11:47 16:29 21:22 ABG pO2 (83-108) mmHg ABG HCO3 (21-25) mmol/L ABG Total CO2 (19-24) mmol/L ABG O2 Saturation (94-97) % Creatinine (0.52-1.04) mg/dL POC Glucose (mg/dL) 123 H 157 H 164 H (75-99) mg/dL 11/17/20 11/17/20 Range/Units 05:51 09:09 ABG pO2 56 L* (83-108) mmHg ABG HCO3 28 H (21-25) mmol/L ABG Total CO2 29 H (19-24) mmol/L ABG O2 Saturation 90.2 L (94-97) % Creatinine 4.31 H (0.52-1.04) mg/dL POC Glucose (mg/dL) (75-99) mg/dL Microbiology - Last 24 Hours (Table) 11/13/20 03:21 Blood Culture - Preliminary Blood No Growth after 96 hours 11/12/20 10:55 Blood Culture - Preliminary Blood No Growth after 96 hours Assessment and Plan Plan: Assessment: 1. End-stage renal disease maintained on hemodialysis on Monday schedule. 2. Acute blood loss anemia status post blood transfusion. No active bleeding. Maintained on Aranesp. 3. Sacral decubitus ulcer status post recent debridement. Has a wound VAC. On antibiotics per ID. 4. 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 5. Diabetes mellitus. 6. Possible pneumonia maintained on antibiotics. Plan: Hemodialysis today.
[2020-11-17 11:42] LABS: Glucose,Whole Blood 68 mg/dL (75-99)
--- NOTE | 2020-11-17 11:48 | PN ---
PROGRESS NOTE DATE OF SERVICE: 11/17/2020 REASON FOR FOLLOWUP: 1. Infected sacral pressure ulcer. 2. Pneumonia. INTERVAL HISTORY: The patient is afebrile. The patient is hemodynamically stable. The patient has been on BiPAP. The patient remains to be lethargic, unable provide any history. No vomiting, diarrhea or any other changes reported by the nursing staff. PHYSICAL EXAMINATION: Blood pressure 150/62, pulse of 77, temperature 97.5. She is 97% on BiPAP . General description is an elderly female lying in bed in no distress. Respiratory system: Unlabored breathing, decreased intensity of breath sounds. No wheeze. Heart S1, S2. Regular rate and rhythm. Abdomen soft, no tenderness. LABS: 2.8, creatinine 4.31. Urine showing an E coli. Blood culture so far negative. DIAGNOSTIC IMPRESSION AND PLAN: 1. Patient admitted to the hospital with shortness of breath, concern for possible left lower lobe pneumonia. Covered with Zosyn. Transition to a short course of oral on discharge. 2. Patient with infected sacral pressure ulcer, covered with vancomycin. Local wound care with wound VAC and close outpatient followup. MMODL / IJN: [id number] /
[2020-11-17 12:14] LABS: Glucose,Whole Blood 87 mg/dL (75-99)
[2020-11-17] MEDS: LIDOCAINE 5% PATCH TOPICAL SCH (14:31)
--- NOTE | 2020-11-17 14:34 | P.PN ---
Subjective Progress Note Date: 11/17/20 HISTORY OF PRESENT ILLNESS This is a 75-year-old female with past medical history of hypertension hypertensive cardiovascular disease, hyperlipidemia, diabetes mellitus type 2, coronary artery disease s/p PCI mid LAD angioplasty D1 and PCI OM, valvular heart disease status post TAVR 2018, paroxysmal atrial fibrillation not on anti- coagulation due to GI bleeding and increased falls, end stage renal disease on HD, peripheral vascular disease recurrent urinary tract infections treated by Dr. Borrego status post cystoscopy in May., Left femur fracture status post ORIF at [facility] on 10/1809/17/2020, sacral decubitus ulcer stage III with wound VAC. Patient had recent hospitalization for sacral diffuse ulcer with cellulitis status post excisional debridement with Dr. Pierson and was discharged back to [facility] to complete course of subacute rehab. Patient was brought back to the emergency center due to hypoxia and she did not receive hemodialysis yesterday. All details are not known. Patient is unable to provide. Temperature is 100.5, heart rate 96, blood pressure 127/54, pulse ox 82% on room air. Patient is normally on 3 L nasal cannula. EKG is a sinus rhythm with left axis deviation, right bundle branch block, no acute ST changes. WBC is 12, hemoglobin 7, vital count 296. Sodium 133, potassium 5.3, chloride 92, CO2 29, BUN 47 creatinine 4.18. Blood sugar 161. Lactic acid 2.9 AST 147, ALT 40, alkaline phosphatase 243. Urinalysis was turbid, leukoesterase large, WBCs greater than 182, WBC clumps are many. Levy catheter was placed in the ergency center. Coronavirus not detected. CAT scan of the abdomen and pelvis revealed no suspicious changes to suggest acute osteomyelitis or abscess formation. Atelectasis with minimal effusions in the lung bases. Mild free fluid within the abdomen. Chest x-ray reveals new right-sided airspace disease. CAT scan of the brain revealed no acute intracranial hemorrhage, midline shift or mass effect. Old encephalomalacia of the right temporal lobe. Age-related changes. Patient has been [facility] and consults requested with nephrology, Wound Center and infectious disease. 11/14: A she was seen today on the [facility] floor. Dr. Botello is added midodrine for hypotension. Patient is status post 1 dose of Ferrlecit. She has been maintained on hemodialysis and is scheduled today. Consult for Dr. Obrien is in place and patient is currently on IV vancomycin dosing with dialysis, Zosyn, Flagyl. Urine culture finalized today with E. coli. Blood culture showing no growth at 24 hours 2 specimens. Pro-calcitonin level ordered. Patient denies having any abdominal pain, no diarrhea. Discharge plan is for [facility] most likely on Monday. 11/15: The patient is denying any new complaints except that she doesn't have her CPAP but did utilize it through the night. Patient is not consistently using her CPAP during the day. Wound VAC to the sacral decubitus ulcer stage III was removed this morning as it was contaminated with stool. Patient did have her breakfast this morning but is eating very little only 25% or less. Patient refused her at bedtime snack and lunch and dinner yesterday. Patient has been afebrile, heart rate 91, blood pressure 149/55, pulse ox 97% on BiPAP. Repeat blood work reveals WBC 8.5, hemoglobin 6.1, platelet count 250. Electrolytes w ere normal. BUN 20 and creatinine 2.8. Blood sugars running between 77 and 98. Total bilirubin 0.5, AST 52, ALT 52, alkaline phosphatase 187. Vancomycin level 24.5. Patient will be transfused 1 unit of packed RBCs today and stool for occult blood to be checked. Do not suspect acute blood loss anemia from GI source. She is on her normal scheduled dialysis treatments on Monday and followed by nephrology. We are planning for discharge back to [facility] on Monday. 11/16: Patient is seen today in follow-up. She is on oxygen today during our eval. She is awake. Consult for pulmonary medicine has been added regarding pneumonia, obstructive sleep apnea. Repeat chest x-ray has been ordered. Nephrology is following with plan to continue hemodialysis on her normal schedu le of Monday. Dr. Obrien has recommended continuing oral Flagyl and vancomycin IV regarding the sacral pressure ulcer. He is recommending to transition Zosyn to Avelox time of discharge. Patient has been afebrile, heart rate 85, blood pressure 138/62, pulse ox 90% on 2 L nasal c annula. 9.5, hemoglobin 9.1, platelet count 227. Blood sugars are running between 106 and 166. Vancomycin 23.1. Anticipate discharge to [facility] tomorrow. 11/17: Patient was more somnolent and lethargic this morning and pulmonary medicine ordered blood gas that showed pO2 of 56, pCO2 40, pH is 7.45. Saturation 90%. Patient is to be on BiPAP during the night and also during the day if she is sleeping. Pulmonary has recommended palliative care consult her hospice consult. Family meeting to be arranged for tomorrow morning. Patient has been afebrile, heart rate 77, blood pressure 150/92, pulse ox 97% on BiPAP. REVIEW OF SYSTEMS Constitutional: No fever, no chills, no night sweats. No weight change. Reports weakness, reports fatigue reports lethargy. Reports daytime sleepiness. EENT: No headache. No blurred vision or double vision, no loss of vision. No loss of Hearing, no ringing in the ears, no dizziness. No nasal drainage or congestion. No epistaxis. No sore throat. Lungs: No shortness of breath, cough, no sputum production. No wheezing. Cardiovascular: No chest pain, no lower extremity edema. No palpitations. No paroxysmal nocturnal dyspnea. No orthopnea. No lightheadedness or dizziness. No syncopal episodes. Abdominal: No abdominal pain. No nausea, vomiting. No diarrhea. No constipation. No bloody or tarry stools.. No loss of appetite. Genitourinary: No dysuria, increased frequency, urgency. No urinary retention. Musculoskeletal: No myalgias. Reports muscle weakness, reports gait dysfunction, no frequent falls. No back pain. No neck pain. Nonweightbearing on the left leg. Integumentary: No wounds, no lesions. No rash or pruritus. No unusual bruising. No change in hair or nails. Neurologic: No aphasia. No facial droop. No change in mentation. No head injury. No headache. No paralysis. No paresthesia. Psychiatric: No depression. No anxiety. Endocrine: No abnormal blood sugars. No weight change. PHYSICAL EXAMINATION Gen: This is a 75-year-old obese female. She is resting in bed and appears to be in no acute respiratory distress. BiPAP is on HEENT: Head is atraumatic, normocephalic. Pupils equal, round. Sclerae is anicteric. NECK: Supple. No JVD. No lymphadenopathy. No thyromegaly. LUNGS: Clear to auscultation. No wheezes or rhonchi. No intercostal retract ions. HEART: Regular rate and rhythm. Systolic ejection murmur at the base. ABDOMEN: Soft. Bowel sounds are present. No masses. No tenderness. EXTREMITIES: No pedal edema. No calf tenderness. NEUROLOGICAL: Patient is somnolent, lethargic. ASSESSMENT AND PLAN 1. Acute hypoxic respiratory failure secondary to lack of oxygen use and patient with O2 dependence. Continue O2 therapy at 3 L nasal cannula and CPAP at night and while sleeping. 2. Metabolic encephalopathy secondary to CO2 narcosis, hypoxia. Mental status is back to baseline. Decrease gabapentin to 300 mg at bedtime. 3. Possible aspiration pneumonia on chest x-ray. Patient is on Zosyn and vancomycin and Flagyl. Consult with Dr. Obrien. Continue Zosyn for now and Avelox at the time of discharge. 4. Lactic acidosis. 5. Possible acute E. coli urinary tract infection. Levy catheter has been placed on this admission. Continue antibiotics 6. Sacral decubitus ulcer stage III. Continue wound VAC, consult with Dr. Obrien. Continue Flagyl 500 mg 3 times daily and vancomycin as was previously arranged. 7. Recent left femur fracture status post ORIF on 10/23/[address] Cronin at [facility]. Patient is to be nonweightbearing on the left leg. Ava were removed on last admission. 8. Diabetes mellitus type 2, insulin requiring. Continue Levemir 20 units twice daily, NovoLog scale before meals and at bedtime. 9. End-stage renal disease on hemodialysis Monday. Consult with Dr. Ayan milligan. Continue hemodialysis on patient's normal schedule of Monday. 10. Chronic diastolic heart failure. Continue hemodialysis, Lasix, metolazone, Toprol-XL. 11. History of aortic stenosis status post TAVR. 12. Hypertension cardiovascular disease. Continue amiodarone 100 mg daily and metoprolol. 13. Paroxysmal atrial fibrillation. Continue amiodarone 100 mg once daily and Toprol-XL 50 mg daily. Patient is not on anticoagulation due to increased risk of fall and GI bleeding 14. History of myocardial infarction and coronary artery disease status post LAD stent in July 2017 and left circumflex in August 2017. Continue Toprol-XL 50 mg once daily. 15. GERD. Continue Protonix. 16. Hyperlipidemia. Continue Zetia 10mg daily 17. Obstructive sleep apnea, on CPAP machine at night, along with O2 supplementation. 18. Diabetic peripheral neuropathy. Continue gabapentin 300 mg decreased at bedtime. 19. Anemia of chronic kidney disease. Continue Aranesp 40 g every 7 days. One dose of Ferrlecit has been infused. Transfuse 1 unit of packed RBCs 11/15. Recurrent depression. Continue Cymbalta 60 mg orally once daily. DVT prophylaxis. Heparin subcu every 12 GI prophylaxis continue Protonix. DISCHARGE PLAN Return to [facility] on and stay. Family meeting on Monday Impression and plan of care have been directed as dictated by the signing physician. Jessenia Gonzalez nurse practitioner acting as scribe for signing physician. Objective - Vital Signs Vital signs: Vital Signs Temp 97.5 F L 11/17/20 07:34 Pulse 77 11/17/20 07:34 Resp 17 11/17/20 07:34 BP 150/62 11/17/20 07:34 Pulse Ox 97 11/17/20 07:34 Intake & Output 11/16/20 11/17/20 11/17/20 18:59 06:59 18:59 Weight 92.5 kg 92.5 kg Other: Voiding Method Indwelling Catheter # Voids 0 0 # Bowel Movements 1 - Labs CBC & Chem 7: 11/15/20 22:43 11/17/20 05:51 Labs: Abnormal Lab Results - Last 24 Hours (Table) 11/16/20 11/16/20 11/16/20 Range/Units 11:47 16:29 21:22 ABG pO2 (83-108) mmHg ABG HCO3 (21-25) mmol/L ABG Total CO2 (19-24) mmol/L ABG O2 Saturation (94-97) % Creatinine (0.52-1.04) mg/dL POC Glucose (mg/dL) 123 H 157 H 164 H (75-99) mg/dL 11/17/20 11/17/20 Range/Units 05:51 09:09 ABG pO2 56 L* (83-108) mmHg ABG HCO3 28 H (21-25) mmol/L ABG Total CO2 29 H (19-24) mmol/L ABG O2 Saturation 90.2 L (94-97) % Creatinine 4.31 H (0.52-1.04) mg/dL POC Glucose (mg/dL) (75-99) mg/dL Microbiology - Last 24 Hours (Table) 11/13/20 03:21 Blood Culture - Preliminary Blood No Growth after 96 hours 11/12/20 10:55 Blood Culture - Preliminary Blood No Growth after 96 hours
[2020-11-17 16:56] LABS: Glucose,Whole Blood 140 mg/dL (75-99)
[2020-11-17 20:15] LABS: Glucose,Whole Blood 302 mg/dL (75-99)
[2020-11-17] MEDS: GABAPENTIN 300 MG CAP PO SCH (20:42)
[2020-11-17] MEDS: EZETIMIBE 10 MG TAB PO SCH (20:42)
[2020-11-17] MEDS: ACETAMINOPHEN TAB 325 MG TAB PO PRN (20:43)
[2020-11-18] MEDS: PIPERACILLIN-TAZOBACTAM 3.375 GM in SODIUM CHLORIDE 0.9% 100 ML IVPB SCH ×2 (00:33→13:57)
[2020-11-18 06:58] LABS: ALT 21 U/L (4-34); AST 30 U/L (14-36); African American GFR (CKD) 16 (>60 ml/min/1.73 sqM); Albumin 2.8 g/dL (3.5-5.0); Albumin/Globulin Ratio 0.9; Alkaline Phosphatase 159 U/L (38-126); Anion Gap 9 mmol/L; Blood Urea Nitrogen 25 mg/dL (7-17); Calcium 8.6 mg/dL (8.4-10.2); Carbon Dioxide 24 mmol/L (22-30); Chloride 106 mmol/L (98-107); Globulin 3.2 g/dL; Glucose 143 mg/dL (74-99); Non-African American GFR(CKD) 14 (>60 ml/min/1.73 sqM); Potassium 4.4 mmol/L (3.5-5.1); Sodium 139 mmol/L (137-145); Total Bilirubin 0.6 mg/dL (0.2-1.3)
[2020-11-18 07:04] LABS: Glucose,Whole Blood 127 mg/dL (75-99)
[2020-11-18 07:55] LABS: Anisocytosis Slight; HCT 29.5 % (34.0-46.0); HGB 9.1 gm/dL (11.4-16.0); Hypochromasia Marked; MCH 29.5 pg (25.0-35.0); MCV 95.2 fL (80.0-100.0); Mean Platelet Volume 10.1; Platelet Count 190 k/uL (150-450); Poikilocytosis Slight; RDW 17.5 % (11.5-15.5); WBC 9.7 k/uL (3.8-10.6)
[2020-11-18] MEDS: INSULIN DETEMIR (LEVEMIR) 100 UNIT/ML SYR SQ SCH ×2 (08:17→20:23)
[2020-11-18] MEDS: INSULIN ASPART (NovoLOG) 100 UNIT/ML VIAL SQ SCH ×4 (08:18→20:22)
[2020-11-18] MEDS: METOPROLOL SUCCINATE (ER) 50 MG TAB.ER.24H PO SCH (09:34)
[2020-11-18] MEDS: PANTOPRAZOLE 40 MG TABLET PO SCH (09:34)
[2020-11-18] MEDS: DULoxetine HCL 60 MG CAPSULE.DR PO SCH (09:34)
[2020-11-18] MEDS: AMIODARONE 100 MG TAB PO SCH (09:35)
[2020-11-18] MEDS: metroNIDAZOLE 500 MG TAB PO SCH ×3 (09:35→20:21)
[2020-11-18] MEDS: ASPIRIN 81 MG PO SCH (09:35)
[2020-11-18] MEDS: SEVELAMER 800 MG TAB PO SCH (09:36)
[2020-11-18] MEDS: COLLAGENASE 250 UNIT/GM OINTMENT 30 GM TUBE TOPICAL SCH (09:36)
--- NOTE | 2020-11-18 11:03 | P.PN ---
Subjective Progress Note Date: 11/18/20 Principal diagnosis: Mental status changes. Pulmonary consult dated 11/16/2020. This is a 75-year-old female well-known to our service, who was brought in to the emergency room by EMS, for mental status changes, and fever. The patient was unable to give history at that time, and is currently very lethargic and sleepy, and not able to give any history at this time. She does have a sacral ulcer, nonhealing, and has a wound VAC in place. She apparently was hypoxemic during transport to the emergency department by EMS. She did not receive dialysis on the day of admission which was November 12. She is currently on 2 L. A BiPAP device is in the room. She is receiving saline at 10 mL an hour. She has a history of atrial fibrillation, CAD, CHF, diabetes, gastroesophageal reflux disease, GI bleed, hyperlipidemia, hypertension, myocardial infarction, pneumonia, sleep apnea, and chronic kidney disease with Monday and Monday hemodialysis. Her previous OK was in 2016, and she does have a history of methicillin-resistant staph aureus infection. Important surgical history includes PCI with stents, PT BAL the left leg, and transcatheter aortic valve replacement in 2018. Most recent lab data includes a white count 9.5, hemoglobin 9.1, hematocrit 30.5, and platelet count 227,000. Sodium 140, potassium 4, chlorides 101, CO2 26.3, anion gap 12.7, BUN 20, and creatinine 2.8. Pro-calcitonin level is 1.39. Microbiology is demonstrating E. coli in the urine. Blood cultures are negative thus far. She is currently on Flagyl, vancomycin, and Zosyn. Progress note dated 11/17/2020. 75-year-old female, well-known to our service. He seen her many times before. She came into the emergency department with primarily mental status changes. The patient currently is on BiPAP at 12/6 and 30%. A blood gas will be ordered. She is very somnolent and lethargic, but does arouse on stimulation. The blood gas today shows a pO2 of 56, pCO2 40, pH is 7.45. Saturations are 90%. That was on 25% oxygen. Her creatinine today is 4.31. Chest x-ray from yesterday was evaluated. She's about the same today clinically she was yesterday. Progress note dated 11/18/2020. 75-year-old female, well-known to our service. She's been admitted many times in the past. She came into the emergency department again, with mental status changes. Currently, the patient's on 2 L nasal cannula. At times, she is on BiPAP with settings of IPAP 12, EPAP 6, and 25%. A blood gas was ordered and was reasonable, showing a pO2 of 56, pCO2 of 40, and pH is 7.45. Clinically, she's a bit more awake today than yesterday. She does have hemodialysis, we times a week. White count 9.7, hemoglobin 9.1, hematocrit 29.5, and platelet count 190,000. Sodium potassium chloride CO2 all normal. Anion gap 9. BUN 25, with a creatinine of 3.21. Objective - Vital Signs Vital signs: Vital Signs Temp 99.3 F 11/18/20 07:50 Pulse 92 11/18/20 07:50 Resp 20 11/18/20 07:50 BP 174/75 11/18/20 07:50 Pulse Ox 96 11/18/20 07:50 Intake & Output 11/17/20 11/18/20 11/18/20 18:59 06:59 18:59 Output Total 2000 0 Balance -2000 0 Weight 92.5 kg 92 kg Output: Urine 1 0 Hemodialysis 1999 Other: # Voids 0 # Bowel Movements 1 - Exam No acute distress, currently on 2 L nasal cannula. Saturations are in the low 90s. HEENT examination is grossly unremarkable. Neck supple. Full range of motion. No adenopathy thyromegaly or neck vein distention. Cardiovascular examination reveals regular rhythm rate. S1-S2 normal. No S3 or S4. No discernible murmur noted. Heart sounds are very distant. Heart rate 92 bpm. Lungs reveal mostly clear breath sounds. Scattered crackles are noted. No whee zes. Scattered mild rhonchi are noted. Breath sounds are equal bilaterally. Abdomen soft bowel sounds are heard. No masses or tenderness. Extremities are intact. No cyanosis clubbing or edema. Skin is without rash or lesion. Wound VAC in place. Neurologic examination is difficult to assess given her mental status changes. - Labs CBC & Chem 7: 11/18/20 06:28 11/18/20 06:28 Labs: Abnormal Lab Results - Last 24 Hours (Table) 11/17/20 11/17/20 11/17/20 Range/Units 11:40 16:55 20:13 RBC (3.80-5.40) m/uL Hgb (11.4-16.0) gm/dL Hct (34.0-46.0) % RDW (11.5-15.5) % BUN (7-17) mg/dL Creatinine (0.52-1.04) mg/dL Glucose (74-99) mg/dL POC Glucose (mg/dL) 68 L 140 H 302 H (75-99) mg/dL Alkaline Phosphatase (38-126) U/L Total Protein (6.3-8.2) g/dL Albumin (3.5-5.0) g/dL 11/18/20 11/18/20 11/18/20 Range/Units 06:28 06:28 07:03 RBC 3.10 L (3.80-5.40) m/uL Hgb 9.1 L (11.4-16.0) gm/dL Hct 29.5 L (34.0-46.0) % RDW 17.5 H (11.5-15.5) % BUN 25 H (7-17) mg/dL Creatinine 3.21 H (0.52-1.04) mg/dL Glucose 143 H (74-99) mg/dL POC Glucose (mg/dL) 127 H (75-99) mg/dL Alkaline Phosphatase 159 H (38-126) U/L Total Protein 6.0 L (6.3-8.2) g/dL Albumin 2.8 L (3.5-5.0) g/dL Microbiology - Last 24 Hours (Table) 11/13/20 03:21 Blood Culture - Preliminary Blood No Growth after 120 hours 11/12/20 10:55 Blood Culture - Preliminary Blood No Growth after 120 hours Assessment and Plan Assessment: Possible aspiration pneumonia, right lung, in a patient with mental status changes/lethargy/somnolence. Escherichia coli urinary tract infection. History of atrial fibrillation. History of CAD, with stent placement. History of heart failure. History of diabetes mellitus. Status post transcatheter aortic valve replacement, 2018. PTBA, left leg, 2018. History of end-stage renal disease, on 3 time a week hemodialysis. Gastroesophageal reflux disease. History of GI bleed. History of hyperlipidemia. History of hypertension. History of myocardial infarction. Prior history of pneumonia. History of sleep apnea syndrome. Plan: Plan dated 11/16/2020. Currently, the patient is being seen by multiple specialists including infe ctious diseases, and is currently on vancomycin, Zosyn, and Flagyl. The only current culture data which is positive was the Escherichia coli in the urine. I believe the antibiotics can probably be consolidated. Chest x-ray shows an infiltrate in the right lung. This is back on the . A repeat chest x-ray will be ordered. The patient is not demonstrating any signs or symptoms of respiratory distress at this time and is currently on 2 L with adequate saturations. The patient is receiving BiPAP at nighttime. Additional recommendations and suggestions are forthcoming. Plan dated 11/25/2020. The patient remains on antibiotics in the form of vancomycin, Flagyl, and Zosyn. She is being seen by infectious diseases. She does have E. coli in the urine. Blood gases were reasonable. Return the FiO2 down from 30% down to 25%. Saturations are 90%. She's currently on BiPAP. She can be transitioned to 2 L nasal cannula. Additional recommendations are made. We will continue to fol low. Prognosis is guarded. Palliative care consult or hospice consult should be considered. Plan dated 11/18/2020. The patient will have a follow-up chest x-ray. The patient remains on Flagyl, vancomycin, and Zosyn. She was on 2 L nasal cannula this morning. He is a bit more awake today and is actually speaking. She feels like she is a bit better. No additional recommendations are made. Repeat chest x-ray will be ordered. Time with Patient: Less than 30
[2020-11-18 11:19] LABS: Glucose,Whole Blood 152 mg/dL (75-99)
[2020-11-18] MEDS: ACETAMINOPHEN TAB 325 MG TAB PO PRN (12:50)
--- NOTE | 2020-11-18 12:53 | P.PN ---
Subjective Patient is seen in follow-up for end-stage renal disease. She is maintained on hemodialysis on Monday schedule. Currently resting in bed. On BiPAP. Daughter present at bedside. No changes overnight. Vital signs are stable. General: The patient appeared well nourished and normally developed. HEENT: Head exam is unremarkable. Neck is without jugular venous distension. LUNGS: Breath sounds decreased. HEART: Rate and Rhythm are regular. ABDOMEN: Soft, obese. EXTREMITITES: No edema. Objective - Vital Signs Vital signs: Vital Signs Temp 99.3 F 11/18/20 07:50 Pulse 92 11/18/20 07:50 Resp 20 11/18/20 07:50 BP 174/75 11/18/20 07:50 Pulse Ox 96 11/18/20 07:50 Intake & Output 11/17/20 11/18/20 11/18/20 18:59 06:59 18:59 Output Total 2000 0 Balance -2000 0 Weight 92.5 kg 92 kg Output: Urine 1 0 Hemodialysis 1999 Other: # Voids 0 # Bowel Movements 1 - Labs CBC & Chem 7: 11/18/20 06:28 11/18/20 06:28 Labs: Abnormal Lab Results - Last 24 Hours (Table) 11/17/20 11/17/20 11/18/20 Range/Units 16:55 20:13 06:28 RBC 3.10 L (3.80-5.40) m/uL Hgb 9.1 L (11.4-16.0) gm/dL Hct 29.5 L (34.0-46.0) % RDW 17.5 H (11.5-15.5) % BUN (7-17) mg/dL Creatinine (0.52-1.04) mg/dL Glucose (74-99) mg/dL POC Glucose (mg/dL) 140 H 302 H (75-99) mg/dL Alkaline Phosphatase (38-126) U/L Total Protein (6.3-8.2) g/dL Albumin (3.5-5.0) g/dL 11/18/20 11/18/20 11/18/20 Range/Units 06:28 07:03 11:17 RBC (3.80-5.40) m/uL Hgb (11.4-16.0) gm/dL Hct (34.0-46.0) % RDW (11.5-15.5) % BUN 25 H (7-17) mg/dL Creatinine 3.21 H (0.52-1.04) mg/dL Glucose 143 H (74-99) mg/dL POC Glucose (mg/dL) 127 H 152 H (75-99) mg/dL Alkaline Phosphatase 159 H (38-126) U/L Total Protein 6.0 L (6.3-8.2) g/dL Albumin 2.8 L (3.5-5.0) g/dL Microbiology - Last 24 Hours (Table) 11/13/20 03:21 Blood Culture - Preliminary Blood No Growth after 120 hours 11/12/20 10:55 Blood Culture - Preliminary Blood No Growth after 120 hours Assessment and Plan Plan: Assessment: 1. End-stage renal disease maintained on hemodialysis on Monday schedule. 2. Acute blood loss anemia status post blood transfusion. No active bleeding. Maintained on Aranesp. 3. Sacral decubitus ulcer status post recent debridement. Has a wound VAC. On antibiotics per ID. 4. 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 5. Diabetes mellitus. 6. Possible pneumonia maintained on antibiotics. Plan: Hemodialysis tomorrow.
--- NOTE | 2020-11-18 14:03 | XR ---
EXAMINATION TYPE: XR chest 1V portable DATE OF EXAM: 11/18/2020 COMPARISON: Chest x-ray 11/16/2020 HISTORY: Pneumonia TECHNIQUE: Single frontal view of the chest is obtained. FINDINGS: Exam is expiratory and rotated. There is persistent blunting of the right costophrenic ang le, interstitium and central vascularity are prominent. No evident pneumothorax. Heart is enlarged. P atient is status post TAVR procedure, thoracic lumbar fusion. Probable embolization clips present in the left hilar region. IMPRESSION: Correlate to exclude congestive heart failure versus pneumonia with parapneumonic effusi on
[2020-11-18] MEDS: LIDOCAINE 5% PATCH TOPICAL SCH (14:49)
[2020-11-18 16:41] LABS: Glucose,Whole Blood 130 mg/dL (75-99)
--- NOTE | 2020-11-18 17:10 | PN ---
PROGRESS NOTE DATE OF SERVICE: 11/18/2020 REASON FOR FOLLOWUP: 1. Pneumonia. 2. Infected sacral pressure ulcer. INTERVAL HISTORY: The patient is afebrile. Patient is breathing comfortably on nasal cannula oxygen. No chest pain or any worsening cough. No abdominal pain. No diarrhea has been reported. PHYSICAL EXAMINATION: Her blood pressure is 136/75, pulse of 102 temperature 98.8. GENERAL DESCRIPTION: Is an elderly female lying in bed in no distress. RESPIRATORY SYSTEM: Unlabored breathing, decreased breath sounds in the base, with no wheeze. HEART: S1, S2. ABDOMEN: Regular abdomen. LAB: Hemoglobin 9.1, white count 9.7, BUN of 25, creatinine 0.1. DIAGNOSTIC IMPRESSION AND PLAN: 1. Patient admitted to the hospital with mental status changes, fever, concern for possible pneumonia. She is on ( ) short course of oral, followup condition. 2. Patient with congestive pressure ulcer, covered with vancomycin. Local wound care with wound VAC. MMODL / IJN: [id number] /
[2020-11-18 20:14] LABS: Glucose,Whole Blood 161 mg/dL (75-99)
[2020-11-18] MEDS: GABAPENTIN 300 MG CAP PO SCH (20:21)
[2020-11-18] MEDS: EZETIMIBE 10 MG TAB PO SCH (20:21)
[2020-11-19] MEDS ORDERED: FUROSEMIDE 10 MG/ML 4 ML VIAL IV STA
[2020-11-19] MEDS ORDERED: hydrALAZINE HCL 50 MG TAB PO ONE (00:01)
[2020-11-19] MEDS ORDERED: ONDANSETRON 4 MG/2 ML VIAL IVP PRN (00:02)
[2020-11-19] MEDS: PIPERACILLIN-TAZOBACTAM 3.375 GM in SODIUM CHLORIDE 0.9% 100 ML IVPB SCH ×2 (00:47→14:53)
[2020-11-19 01:02] LABS: Anisocytosis Slight; Basophils # (A) 0.1 k/uL (0-0.2); Basophils % (A) 1 %; Eosinophils # (A) 0.2 k/uL (0-0.7); Eosinophils % (A) 2 %; HGB 9.4 gm/dL (11.4-16.0); Hypochromasia Marked; Lymphocytes % (A) 16 %; MCH 29.2 pg (25.0-35.0); MCHC 29.2 g/dL (31.0-37.0); MCV 100.1 fL (80.0-100.0); Macrocytosis Slight; Mean Platelet Volume 8.5; Monocytes # (A) 0.7 k/uL (0-1.0); Monocytes % (A) 6 %; Neutrophils # (A) 9.3 k/uL (1.3-7.7); Neutrophils % (A) 75 %; Platelet Count 248 k/uL (150-450); Poikilocytosis Slight; RDW 17.8 % (11.5-15.5); WBC 12.4 k/uL (3.8-10.6)
[2020-11-19 01:17] LABS: ALT 21 U/L (4-34); AST 27 U/L (14-36); African American GFR (CKD) 13 (>60 ml/min/1.73 sqM); Albumin 3.3 g/dL (3.5-5.0); Alkaline Phosphatase 195 U/L (38-126); Anion Gap 13 mmol/L; Blood Urea Nitrogen 30 mg/dL (7-17); Calcium 8.7 mg/dL (8.4-10.2); Carbon Dioxide 24 mmol/L (22-30); Chloride 102 mmol/L (98-107); Globulin 3.3 g/dL; Glucose 177 mg/dL (74-99); Non-African American GFR(CKD) 11 (>60 ml/min/1.73 sqM); Potassium 4.5 mmol/L (3.5-5.1); Sodium 139 mmol/L (137-145); Total Bilirubin 0.7 mg/dL (0.2-1.3); Total Protein 6.6 g/dL (6.3-8.2)
[2020-11-19] MEDS ORDERED: VANCOMYCIN 1,500 MG in SODIUM CHLORIDE 0.9% 250 ML IVPB ONE (06:00)
[2020-11-19 06:50] LABS: Glucose,Whole Blood 127 mg/dL (75-99)
--- NOTE | 2020-11-19 08:53 | P.DS ---
Providers Date of admission: 11/12/20 13:11 Expected date of discharge: 11/19/20 Attending physician: Nandini Venegas MD Consults: 11/12/20 13:12 Consult Physician Routine Consulting Provider: Mariam Botello Consult Reason/Comments: ESRD Do you want consulting provider notified?: Yes 11/13/20 14:27 Consult Physician Routine Consulting Provider: Margarette Obrien Consult Reason/Comments: pneumonia, decub Do you want consulting provider notified?: Yes 11/16/20 10:36 Consult Physician Routine Consulting Provider: Carolina Hanson Consult Reason/Comments: pneumonia and CHUCHO Do you want consulting provider notified?: Yes Primary care physician: [facility] Course: HISTORY OF PRESENT ILLNESS This is a 75-year-old female with past medical history of hypertension hypertensive cardiovascular disease, hyperlipidemia, diabetes mellitus type 2, coronary artery disease s/p PCI mid LAD angioplasty D1 and PCI OM, valvular heart disease status post TAVR 2018, paroxysmal atrial fibrillation not on anti- coagulation due to GI bleeding and increased falls, end stage renal disease on HD, peripheral vascular disease recurrent urinary tract infections treated by Dr. Borrego status post cystoscopy in May., Left femur fracture status post ORIF at [facility] on 10/1809/17/2020, sacral decubitus ulcer stage III with wound VAC. Patient had recent hospitalization for sacral diffuse ulcer with cellulitis status post excisional debridement with Dr. Pierson and was discharged back to [facility] to complete course of subacute rehab. Patient was brought back to the emergency center due to hypoxia and she did not receive hemodialysis yesterday. All details are not known. Patient is unable to provide. Temperature is 100.5, heart rate 96, blood pressure 127/54, pulse ox 82% on room air. Patient is normally on 3 L nasal cannula. EKG is a sinus rhythm with left axis deviation, right bundle branch block, no acute ST changes. WBC is 12, hemoglobin 7, vital count 296. Sodium 133, potassium 5.3, chloride 92, CO2 29, BUN 47 creatinine 4.18. Blood sugar 161. Lactic acid 2.9 AST 147, ALT 40, alkaline phosphatase 243. Urinalysis was turbid, leukoesterase large, WBCs greater than 182, WBC clumps are many. Levy catheter was placed in the emergency center. Coronavirus not detected. CAT scan of the abdomen and pelvis revealed no suspicious changes to suggest acute osteomyelitis or abscess formation. Atelectasis with minimal effusions in the lung bases. Mild free fluid within the abdomen. Chest x-ray reveals new right-sided airspace disease. CAT scan of the brain revealed no acute intracranial hemorrhage, midline shift or mass effect. Old encephalomalacia of the right temporal lobe. Age-related changes. Patient has been admitted to the [facility] floor and consults requested with nephrology, Wound Center and infectious disease. 11/14: A she was seen today on the [facility] floor. Dr. Botello is added midodrine for hypotension. Patient is status post 1 dose of Ferrlecit. She has been maintained on hemodialysis and is scheduled today. Consult for Dr. Obrien is in place and patient is currently on IV vancomycin dosing with dialysis, Zosyn, Flagyl. Urine culture finalized today with E. coli. Blood culture showing no growth at 24 hours 2 specimens. Pro-calcitonin level ordered. Patient denies having any abdominal pain, no diarrhea. Discharge plan is for [facility] most likely on Monday. 11/15: The patient is denying any new complaints except that she doesn't have her CPAP but did utilize it through the night. Patient is not consistently using her CPAP during the day. Wound VAC to the sacral decubitus ulcer stage III was removed this morning as it was contaminated with stool. Patient did have her breakfast this morning but is eating very little only 25% or less. Patient refused her at bedtime snack and lunch and dinner yesterday. Patient has been afebrile, heart rate 91, blood pressure 149/55, pulse ox 97% on BiPAP. Repeat blood work reveals WBC 8.5, hemoglobin 6.1, platelet count 250. Electrolytes were normal. BUN 20 and creatinine 2.8. Blood sugars running between 77 and 98. Total bilirubin 0.5, AST 52, ALT 52, alkaline phosphatase 187. Vancomycin level 24.5. Patient will be transfused 1 unit of packed RBCs today and stool for occult blood to be checked. Do not suspect acute blood loss anemia from GI source. She is on her normal scheduled dialysis treatments on Monday and followed by nephrology. We are planning for discharge back to [facility] on Monday. 11/16: Patient is seen today in follow-up. She is on oxygen today during our eval. She is awake. Consult for pulmonary medicine has been added regarding pneumonia, obstructive sleep apnea. Repeat chest x-ray has been ordered. Nephrology is following with plan to continue hemodialysis on her normal schedule of Monday. Dr. Obrien has recommended continuing oral Flagyl and vancomycin IV regarding the sacral pressure ulcer. He is recommending to transition Zosyn to Avelox time of discharge. Patient has been afebrile, heart rate 85, blood pressure 138/62, pulse ox 90% on 2 L nasal cannula. 9.5, hemoglobin 9.1, platelet count 227. Blood sugars are running between 106 and 166. Vancomycin 23.1. Anticipate discharge to [facility] tomorrow. 11/17: Patient was more somnolent and lethargic this morning and pulmonary medicine ordered blood gas that showed pO2 of 56, pCO2 40, pH is 7.45. Saturation 90%. Patient is to be on BiPAP during the night and also during the day if she is sleeping. Pulmonary has recommended palliative care consult her hospice consult. Family meeting to be arranged for tomorrow morning. Patient has been afebrile, heart rate 77, blood pressure 150/92, pulse ox 97% on BiPAP. 11/18: Patient is seen today on MedSurg floor. She is followed by pulmonary medicine and infectious disease. She is also followed by nephrology and continued on hemodialysis as scheduled. Repeat blood work reveals WBC 9.7, hemoglobin 9.1, platelet count 190. Family meeting with the patient's 2 daughters today. Final decision is a patient will proceed with palliat mer[facility]/hospice care. Family subsequently met with the showcase trimmer and chose to move forward with [facility]. We will plan for probable discharge tomorrow. CODE STATUS changed to no code. 11/19: Patient remains lethargic. Most likely, the wound VAC will be discontinued at discharge. Wound Center to determine wound care. Patient is afebrile, heart rate 93, blood pressure 155/73, pulse ox 97% on 3 L nasal cannula. Repeat blood work reveals WBC 12.4, hemoglobin 9.4, platelet count 248. Electrolytes are normal. BUN 30 creatinine 3.87. Blood sugars are runnin g between 100 2777. Patient will be discharged home with [facility]. ASSESSMENT AND PLAN 1. Acute hypoxic respiratory failure secondary to lack of oxygen use and patient with O2 dependence. 2. Metabolic encephalopathy secondary to CO2 narcosis, hypoxia. 3. Possible aspiration pneumonia on chest x-ray. 4. Lactic acidosis. 5. Possible acute catheter associated E. coli urinary tract infection, POA. 6. Sacral decubitus ulcer stage III. 7. Recent left femur fracture status post ORIF on 10/23/[address] Cronin at [facility]. 8. Diabetes mellitus type 2, insulin requiring. 9. End-stage renal disease on hemodialysis Monday. 10. Chronic diastolic heart failure. 11. History of aortic stenosis status post TAVR. 12. Hypertension cardiovascular disease. 13. Paroxysmal atrial fibrillation. 14. History of myocardial infarction and coronary artery disease status post LAD stent in July 2017 and left circumflex in August 2017. 15. GERD. 16. Hyperlipidemia. 17. Obstructive sleep apnea, on CPAP machine at night, along with O2 supplementation. 18. Diabetic peripheral neuropathy. 19. Anemia of chronic kidney disease. 20. Recurrent depression. Continue Cymbalta 60 mg orally once daily. 21. Chronic hypoxic respiratory failure. DISCHARGE PLAN Home with [facility] Impression and plan of care have been directed as dictated by the signing physician. Jessenia Gonzalez nurse practitioner acting as scribe for signing physician. Patient Condition at Discharge: Stable Plan - Discharge Summary Discharge Rx Participant: No New Discharge Prescriptions: New Lidocaine 5% Patch [Lidoderm 5% Patch] 1 patch TOPICAL DAILY@1500 #30 patch Collagenase [Santyl] 1 applic TOPICAL DAILY applic Acetaminophen Tab [Tylenol] 650 mg PO Q6HR PRN tab PRN Reason: Mild Pain Or Fever > 100.5 Continue DULoxetine HCL [Cymbalta] 60 mg PO DAILY@0900 Amiodarone HCl [Pacerone] 100 mg PO DAILY@0900 Omeprazole 20 mg PO DAILY@0900 Metoprolol Succinate (ER) [Toprol XL] 50 mg PO DAILY@0900 Insulin Glargine,Hum.rec.anlog [Semglee Pen] 20 units SQ BID@0800,2100 metroNIDAZOLE [Flagyl] 500 mg PO TID@0900,1300,2100 Insulin Lispro [humaLOG Kwikpen] See Protocol SQ ACHS traMADol HCL 50 mg PO Q6H PRN #28 tab PRN Reason: Pain dronabinoL [Marinol] 2.5 mg PO AC-BID@0900,1700 Changed Gabapentin 300 mg PO HS #14 cap Discontinued Ezetimibe [Zetia] 10 mg PO HS@2100 Aspirin [Adult Low Dose Aspirin EC] 81 mg PO DAILY@0900 Sevelamer [Renvela] 800 mg PO DIRECTED Darbepoetin Aron [Aranesp] 40 mcg SQ Q7D syringe Vancomycin 1,000 mg IVPB MOWEFR@2100 Discharge Medication List DULoxetine HCL [Cymbalta] 60 mg PO DAILY@0900 08/04/14 [History] Amiodarone HCl [Pacerone] 100 mg PO DAILY@0900 11/22/15 [History] Omeprazole 20 mg PO DAILY@0900 12/25/16 [History] Metoprolol Succinate (ER) [Toprol XL] 50 mg PO DAILY@0900 01/12/20 [History] Insulin Glargine,Hum.rec.anlog [Semglee Pen] 20 units SQ BID@0800,2100 10/31/20 [History] traMADol HCL 50 mg PO Q6H PRN #28 tab 11/06/20 [Rx] Insulin Lispro [humaLOG Kwikpen] See Protocol SQ ACHS 11/12/20 [History] dronabinoL [Marinol] 2.5 mg PO AC-BID@0900,1700 11/12/20 [History] metroNIDAZOLE [Flagyl] 500 mg PO TID@0900,1300,2100 11/12/20 [History] Acetaminophen Tab [Tylenol] 650 mg PO Q6HR PRN tab 11/19/20 [Rx] Collagenase [Santyl] 1 applic TOPICAL DAILY applic 11/19/20 [Rx] Gabapentin 300 mg PO HS #14 cap 11/19/20 [Rx] Lidocaine 5% Patch [Lidoderm 5% Patch] 1 patch TOPICAL DAILY@1500 #30 patch 11/19/20 [Rx] Follow up Appointment(s)/Referral(s): H[facility] [REFERRING] - As Needed Stevenson Farias MD [Primary Care Provider] - As Needed Discharge Disposition: HOME WITH HOSPICE
--- NOTE | 2020-11-19 09:11 | P.PN ---
Subjective Patient is seen in follow-up for end-stage renal disease. She is maintained on hemodialysis on Monday schedule. Currently resting in bed. On BiPAP. Vital signs are stable. General: The patient appeared well nourished and normally developed. HEENT: Head exam is unremarkable. Neck is without jugular venous distension. LUNGS: Breath sounds decreased. HEART: Rate and Rhythm are regular. ABDOMEN: Soft, obese. EXTREMITITES: No edema. Objective - Vital Signs Vital signs: Vital Signs Temp 98.7 F 11/19/20 07:22 Pulse 93 11/19/20 07:22 Resp 22 11/19/20 07:22 BP 155/73 11/19/20 07:22 Pulse Ox 97 11/19/20 07:22 Intake & Output 11/18/20 11/19/20 11/19/20 18:59 06:59 18:59 Weight 90 kg Other: Voiding Method Diaper # Voids 1 # Bowel Movements 2 - Labs CBC & Chem 7: 11/19/20 00:21 11/19/20 00:21 Labs: Abnormal Lab Results - Last 24 Hours (Table) 11/18/20 11/18/20 11/18/20 Range/Units 11:17 16:40 20:13 WBC (3.8-10.6) k/uL RBC (3.80-5.40) m/uL Hgb (11.4-16.0) gm/dL Hct (34.0-46.0) % MCV (80.0-100.0) fL MCHC (31.0-37.0) g/dL RDW (11.5-15.5) % Neutrophils # (1.3-7.7) k/uL BUN (7-17) mg/dL Creatinine (0.52-1.04) mg/dL Glucose (74-99) mg/dL POC Glucose (mg/dL) 152 H 130 H 161 H (75-99) mg/dL Alkaline Phosphatase (38-126) U/L Troponin I (0.000-0.034) ng/mL Albumin (3.5-5.0) g/dL 11/19/20 11/19/20 11/19/20 Range/Units : 00: 00:21 WBC 12.4 H (3.8-10.6) k/uL RBC 3.20 L (3.80-5.40) m/uL Hgb 9.4 L (11.4-16.0) gm/dL Hct 32.0 L (34.0-46.0) % MCV 100.1 H (80.0-100.0) fL MCHC 29.2 L (31.0-37.0) g/dL RDW 17.8 H (11.5-15.5) % Neutrophils # 9.3 H (1.3-7.7) k/uL BUN 30 H (7-17) mg/dL Creatinine 3.87 H (0.52-1.04) mg/dL Glucose 177 H (74-99) mg/dL POC Glucose (mg/dL) (75-99) mg/dL Alkaline Phosphatase 195 H (38-126) U/L Troponin I 0.045 H* (0.000-0.034) ng/mL Albumin 3.3 L (3.5-5.0) g/dL 11/19/20 11/19/20 Range/Units 06:49 07:00 WBC (3.8-10.6) k/uL RBC (3.80-5.40) m/uL Hgb (11.4-16.0) gm/dL Hct (34.0-46.0) % MCV (80.0-100.0) fL MCHC (31.0-37.0) g/dL RDW (11.5-15.5) % Neutrophils # (1.3-7.7) k/uL BUN (7-17) mg/dL Creatinine (0.52-1.04) mg/dL Glucose (74-99) mg/dL POC Glucose (mg/dL) 127 H (75-99) mg/dL Alkaline Phosphatase (38-126) U/L Troponin I 0.045 H* (0.000-0.034) ng/mL Albumin (3.5-5.0) g/dL Microbiology - Last 24 Hours (Table) 11/13/20 03:21 Blood Culture - Final Blood No Growth after 144 hours 11/12/20 10:55 Blood Culture - Final Blood No Growth after 144 hours Assessment and Plan Plan: Assessment: 1. End-stage renal disease maintained on hemodialysis on Monday schedule. 2. Acute blood loss anemia status post blood transfusion. No active bleeding. Maintained on Aranesp. 3. Sacral decubitus ulcer status post recent debridement. Has a wound VAC. On antibiotics per ID. 4. 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 5. Diabetes mellitus. 6. Possible pneumonia maintained on antibiotics. Plan: Hemodialysis today. Patient will be going home on hospice.
[2020-11-19] MEDS: INSULIN ASPART (NovoLOG) 100 UNIT/ML VIAL SQ SCH ×2 (10:27→14:54)
[2020-11-19] MEDS: PANTOPRAZOLE 40 MG TABLET PO SCH (10:27)
[2020-11-19] MEDS: AMIODARONE 100 MG TAB PO SCH (10:27)
[2020-11-19] MEDS: ASPIRIN 81 MG PO SCH (10:28)
[2020-11-19] MEDS: metroNIDAZOLE 500 MG TAB PO SCH ×2 (10:28→14:54)
[2020-11-19] MEDS: DULoxetine HCL 60 MG CAPSULE.DR PO SCH (10:28)
[2020-11-19] MEDS: METOPROLOL SUCCINATE (ER) 50 MG TAB.ER.24H PO SCH (10:28)
[2020-11-19] MEDS: COLLAGENASE 250 UNIT/GM OINTMENT 30 GM TUBE TOPICAL SCH (10:28)
[2020-11-19] MEDS: SEVELAMER 800 MG TAB PO SCH (10:28)
[2020-11-19] MEDS: INSULIN DETEMIR (LEVEMIR) 100 UNIT/ML SYR SQ SCH (10:30)
[2020-11-19 11:02] LABS: Glucose,Whole Blood 108 mg/dL (75-99)
--- NOTE | 2020-11-19 12:08 | P.PN ---
Subjective Progress Note Date: 11/18/20 HISTORY OF PRESENT ILLNESS This is a 75-year-old female with past medical history of hypertension hypertensive cardiovascular disease, hyperlipidemia, diabetes mellitus type 2, coronary artery disease s/p PCI mid LAD angioplasty D1 and PCI OM, valvular heart disease status post TAVR 2018, paroxysmal atrial fibrillation not on anti- coagulation due to GI bleeding and increased falls, end stage renal disease on HD, peripheral vascular disease recurrent urinary tract infections treated by Dr. Borrego status post cystoscopy in May., Left femur fracture status post ORIF at [facility] on 10/1809/17/2020, sacral decubitus ulcer stage III with wound VAC. Patient had recent hospitalization for sacral diffuse ulcer with cellulitis status post excisional debridement with Dr. Pierson and was discharged back to [facility] to complete course of subacute rehab. Patient was brought back to the emergency center due to hypoxia and she did not receive hemodialysis yesterday. All details are not known. Patient is unable to provide. Temperature is 100.5, heart rate 96, blood pressure 127/54, pulse ox 82% on room air. Patient is normally on 3 L nasal cannula. EKG is a sinus rhythm with left axis deviation, right bundle branch block, no acute ST changes. WBC is 12, hemoglobin 7, vital count 296. Sodium 133, potassium 5.3, chloride 92, CO2 29, BUN 47 creatinine 4.18. Blood sugar 161. Lactic acid 2.9 AST 147, ALT 40, alkaline phosphatase 243. Urinalysis was turbid, leukoesterase large, WBCs greater than 182, WBC clumps are many. Levy catheter was placed in the ergency center. Coronavirus not detected. CAT scan of the abdomen and pelvis revealed no suspicious changes to suggest acute osteomyelitis or abscess formation. Atelectasis with minimal effusions in the lung bases. Mild free fluid within the abdomen. Chest x-ray reveals new right-sided airspace disease. CAT scan of the brain revealed no acute intracranial hemorrhage, midline shift or mass effect. Old encephalomalacia of the right temporal lobe. Age-related changes. [facility] and consults requested with nephrology, [facility]ound [facility] and infectious disease. 11/14: A she was [facility] floor. Dr. Botello is added midodrine for hypotension. Patient is status post 1 dose of Ferrlecit. She has been maintained on hemodialysis and is scheduled today. Consult for Dr. Obrien is in place and patient is currently on IV vancomycin dosing with dialysis, Zosyn, Flagyl. Urine culture finalized today with E. coli. Blood culture showing no growth at 24 hours 2 specimens. Pro-calcitonin level ordered. Patient denies having any abdominal pain, no diarrhea. Discharge plan is for [facility] most likely on Monday. 11/15: The patient is denying any new complaints except that she doesn't have her CPAP but did utilize it through the night. Patient is not consistently using her CPAP during the day. Wound VAC to the sacral decubitus ulcer stage III was removed this morning as it was contaminated with stool. Patient did have her breakfast this morning but is eating very little only 25% or less. Patient refused her at bedtime snack and lunch and dinner yesterday. Patient has been afebrile, heart rate 91, blood pressure 149/55, pulse ox 97% on BiPAP. Repeat blood work reveals WBC 8.5, hemoglobin 6.1, platelet count 250. Electrolytes w ere normal. BUN 20 and creatinine 2.8. Blood sugars running between 77 and 98. Total bilirubin 0.5, AST 52, ALT 52, alkaline phosphatase 187. Vancomycin level 24.5. Patient will be transfused 1 unit of packed RBCs today and stool for occult blood to be checked. Do not suspect acute blood loss anemia from GI source. She is on her normal scheduled dialysis treatments on Monday and followed by nephrology. We are planning for discharge back to [facility] on Monday. 11/16: Patient is seen today in follow-up. She is on oxygen today during our eval. She is awake. Consult for pulmonary medicine has been added regarding pneumonia, obstructive sleep apnea. Repeat chest x-ray has been ordered. Nephrology is following with plan to continue hemodialysis on her normal schedu le of Monday. Dr. Obrien has recommended continuing oral Flagyl and vancomycin IV regarding the sacral pressure ulcer. He is recommending to transition Zosyn to Avelox time of discharge. Patient has been afebrile, heart rate 85, blood pressure 138/62, pulse ox 90% on 2 L nasal c annula. 9.5, hemoglobin 9.1, platelet count 227. Blood sugars are running between 106 and 166. Vancomycin 23.1. Anticipate discharge to [facility] tomorrow. 11/17: Patient was more somnolent and lethargic this morning and pulmonary medicine ordered blood gas that showed pO2 of 56, pCO2 40, pH is 7.45. Saturation 90%. Patient is to be on BiPAP during the night and also during the day if she is sleeping. Pulmonary has recommended palliative care consult her hospice consult. Family meeting to be arranged for tomorrow morning. Patient has been afebrile, heart rate 77, blood pressure 150/92, pulse ox 97% on BiPAP. 11/18: Patient is seen today on MedSurg floor. She is followed by pulmonary medicine and infectious disease. She is also followed by nephrology and continued on hemodialysis as scheduled. Repeat blood work reveals WBC 9.7, hemoglobin 9.1, platelet count 190. Family meeting with the patient's 2 daughters today. Final decision is a patient will proceed with palliative/hos pice care. Family subsequently met with the nurse outreach case manager and chose to move forward with [facility]. We will plan for probable discharge tomorrow. CODE STATUS changed to no code. REVIEW OF SYSTEMS Constitutional: No fever, no chills, no night sweats. No weight change. Reports weakness, reports fatigue reports lethargy. Reports daytime sleepiness. EENT: No headache. No blurred vision or double vision, no loss of vision. No loss of Hearing, no ringing in the ears, no dizziness. No nasal drainage or congestion. No epistaxis. No sore throat. Lungs: No shortness of breath, cough, no sputum production. No wheezing. Cardiovascular: No chest pain, no lower extremity edema. No palpitations. No paroxysmal nocturnal dyspnea. No orthopnea. No lightheadedness or dizziness. No syncopal episodes. Abdominal: No abdominal pain. No nausea, vomiting. No diarrhea. No constipation. No bloody or tarry stools.. No loss of appetite. Genitourinary: No dysuria, increased frequency, urgency. No urinary retention. Musculoskeletal: No myalgias. Reports muscle weakness, reports gait dysfunction, no frequent falls. No back pain. No neck pain. Nonweightbearing on the left leg. Integumentary: No wounds, no lesions. No rash or pruritus. No unusual brui sing. No change in hair or nails. Neurologic: No aphasia. No facial droop. Noted change in mentation. No head injury. No headache. No paralysis. No paresthesia. Psychiatric: No depression. No anxiety. Endocrine: No abnormal blood sugars. No weight change. PHYSICAL EXAMINATION Gen: This is a 75-year-old obese female. She is resting in bed and appears to be in no acute respiratory distress. BiPAP is on HEENT: Head is atraumatic, normocephalic. Pupils equal, round. Sclerae is anicteric. NECK: Supple. No JVD. No lymphadenopathy. No thyromegaly. LUNGS: Clear to auscultation. No wheezes or rhonchi. No intercostal retractions. HEART: Regular rate and rhythm. Systolic ejection murmur at the base. ABDOMEN: Soft. Bowel sounds are present. No masses. No tenderness. EXTREMITIES: No pedal edema. No calf tenderness. NEUROLOGICAL: Patient is somnolent, lethargic. ASSESSMENT AND PLAN 1. Acute hypoxic respiratory failure secondary to lack of oxygen use and patient with O2 dependence. Continue O2 therapy at 3 L nasal cannula and CPAP at night and while sleeping. 2. Metabolic encephalopathy secondary to CO2 narcosis, hypoxia. Decrease gabapentin to 300 mg at bedtime. 3. Possible aspiration pneumonia on chest x-ray. Patient is on Zosyn and vancomycin and Flagyl. Consult with Dr. Obrien. Continue Zosyn for now and Avelox at the time of discharge. 4. Lactic acidosis. 5. Acute E. coli urinary tract infection. Levy catheter has been placed on this admission. Continue antibiotics 6. Sacral decubitus ulcer stage III. Continue wound VAC, consult with Dr. Obrien. Continue Flagyl 500 mg 3 times daily and vancomycin as was previously arranged. 7. Recent left femur fracture status post ORIF on 10/23/[address] Cronin at [facility]. Patient is to be nonweightbearing on the left leg. Elliott wer e removed on last admission. 8. Diabetes mellitus type 2, insulin requiring. Continue Levemir 20 units twice daily, NovoLog scale before meals and at bedtime. 9. End-stage renal disease on hemodialysis Monday. Consult with Dr. Ayan milligan. Continue hemodialysis on patient's normal schedule of Monday. 10. Chronic diastolic heart failure. Continue hemodialysis, Lasix, metolazone, Toprol-XL. 11. History of aortic stenosis status post TAVR. 12. Hypertension cardiovascular disease. Continue amiodarone 100 mg daily and metoprolol. 13. Paroxysmal atrial fibrillation. Continue amiodarone 100 mg once daily and Toprol-XL 50 mg daily. Patient is not on anticoagulation due to increased risk of fall and GI bleeding 14. History of myocardial infarction and coronary artery disease status post LAD stent in July 2017 and left circumflex in August 2017. Continue Toprol-XL 50 mg once daily. 15. GERD. Continue Protonix. 16. Hyperlipidemia. Continue Zetia 10mg daily 17. Obstructive sleep apnea, on CPAP machine at night, along with O2 supplementation. 18. Diabetic peripheral neuropathy. Continue gabapentin 300 mg decreased at bed time. 19. Anemia of chronic kidney disease. Continue Aranesp 40 g every 7 days. One dose of Ferrlecit has been infused. Transfuse 1 unit of packed RBCs 11/15. Recurrent depression. Continue Cymbalta 60 mg orally once daily. DVT prophylaxis. Heparin subcu every 12 GI prophylaxis continue Protonix. CODE STATUS: No code DISCHARGE PLAN Return to [facility] or home with hospice tomorrow. Impression and plan of care have been directed as dictated by the signing physic ian. Jessenia Gonzalez nurse practitioner acting as scribe for signing physician. Objective - Vital Signs Vital signs: Vital Signs Temp 98.7 F 11/19/20 07:22 Pulse 93 11/19/20 07:22 Resp 22 11/19/20 07:22 BP 155/73 11/19/20 07:22 Pulse Ox 97 11/19/20 07:22 Intake & Output 11/18/20 11/19/20 11/19/20 18:59 06:59 18:59 Weight 90 kg Other: Voiding Method Diaper # Voids 1 # Bowel Movements 2 - Labs CBC & Chem 7: 11/19/20 00:21 11/19/20 00:21 Labs: Abnormal Lab Results - Last 24 Hours (Table) 11/18/20 11/18/20 11/19/20 Range/Units 16:40 20:13 00:21 WBC (3.8-10.6) k/uL RBC (3.80-5.40) m/uL Hgb (11.4-16.0) gm/dL Hct (34.0-46.0) % MCV (80.0-100.0) fL MCHC (31.0-37.0) g/dL RDW (11.5-15.5) % Neutrophils # (1.3-7.7) k/uL BUN 30 H (7-17) mg/dL Creatinine 3.87 H (0.52-1.04) mg/dL Glucose 177 H (74-99) mg/dL POC Glucose (mg/dL) 130 H 161 H (75-99) mg/dL Alkaline Phosphatase 195 H (38-126) U/L Troponin I (0.000-0.034) ng/mL Albumin 3.3 L (3.5-5.0) g/dL 11/19/20 11/19/20 11/19/20 Range/Units 00:21 00:21 06:49 WBC 12.4 H (3.8-10.6) k/uL RBC 3.20 L (3.80-5.40) m/uL Hgb 9.4 L (11.4-16.0) gm/dL Hct 32.0 L (34.0-46.0) % MCV 100.1 H (80.0-100.0) fL MCHC 29.2 L (31.0-37.0) g/dL RDW 17.8 H (11.5-15.5) % Neutrophils # 9.3 H (1.3-7.7) k/uL BUN (7-17) mg/dL Creatinine (0.52-1.04) mg/dL Glucose (74-99) mg/dL POC Glucose (mg/dL) 127 H (75-99) mg/dL Alkaline Phosphatase (38-126) U/L Troponin I 0.045 H* (0.000-0.034) ng/mL Albumin (3.5-5.0) g/dL 11/19/20 11/19/20 Range/Units 07:00 11:01 WBC (3.8-10.6) k/uL RBC (3.80-5.40) m/uL Hgb (11.4-16.0) gm/dL Hct (34.0-46.0) % MCV (80.0-100.0) fL MCHC (31.0-37.0) g/dL RDW (11.5-15.5) % Neutrophils # (1.3-7.7) k/uL BUN (7-17) mg/dL Creatinine (0.52-1.04) mg/dL Glucose (74-99) mg/dL POC Glucose (mg/dL) 108 H (75-99) mg/dL Alkaline Phosphatase (38-126) U/L Troponin I 0.045 H* (0.000-0.034) ng/mL Albumin (3.5-5.0) g/dL Microbiology - Last 24 Hours (Table) 11/13/20 03:21 Blood Culture - Final Blood No Growth after 144 hours 11/12/20 10:55 Blood Culture - Final Blood No Growth after 144 hours
[2020-11-19 13:00] VITALS: BMI 38.7
--- NOTE | 2020-11-19 13:37 | P.PN ---
Subjective Progress Note Date: 11/19/20 Principal diagnosis: Mental status changes. Pulmonary consult dated 11/16/2020. This is a 75-year-old female well-known to our service, who was brought in to the emergency room by EMS, for mental status changes, and fever. The patient was unable to give history at that time, and is currently very lethargic and sleepy, and not able to give any history at this time. She does have a sacral ulcer, nonhealing, and has a wound VAC in place. She apparently was hypoxemic during transport to the emergency department by EMS. She did not receive dialysis on the day of admission which was November 12. She is currently on 2 L. A BiPAP device is in the room. She is receiving saline at 10 mL an hour. She has a history of atrial fibrillation, CAD, CHF, diabetes, gastroesophageal reflux disease, GI bleed, hyperlipidemia, hypertension, myocardial infarction, pneumonia, sleep apnea, and chronic kidney disease with Monday and Monday hemodialysis. Her previous PA was in 2016, and she does have a history of methicillin-resistant staph aureus infection. Important surgical history includes PCI with stents, PT BAL the left leg, and transcatheter aortic valve replacement in 2018. Most recent lab data includes a white count 9.5, hemoglobin 9.1, hematocrit 30.5, and platelet count 227,000. Sodium 140, potassium 4, chlorides 101, CO2 26.3, anion gap 12.7, BUN 20, and creatinine 2.8. Pro-calcitonin level is 1.39. Microbiology is demonstrating E. coli in the urine. Blood cultures are negative thus far. She is currently on Flagyl, vancomycin, and Zosyn. Progress note dated 11/17/2020. 75-year-old female, well-known to our service. He seen her many times before. She came into the emergency department with primarily mental status changes. The patient currently is on BiPAP at 12/6 and 30%. A blood gas will be ordered. She is very somnolent and lethargic, but does arouse on stimulation. The blood gas today shows a pO2 of 56, pCO2 40, pH is 7.45. Saturations are 90%. That was on 25% oxygen. Her creatinine today is 4.31. Chest x-ray from yesterday was evaluated. She's about the same today clinically she was yesterday. Progress note dated 11/18/2020. 75-year-old female, well-known to our service. She's been admitted many times in the past. She came into the emergency department again, with mental status changes. Currently, the patient's on 2 L nasal cannula. At times, she is on BiPAP with settings of IPAP 12, EPAP 6, and 25%. A blood gas was ordered and was reasonable, showing a pO2 of 56, pCO2 of 40, and pH is 7.45. Clinically, she's a bit more awake today than yesterday. She does have hemodialysis, we times a week. White count 9.7, hemoglobin 9.1, hematocrit 29.5, and platelet count 190,000. Sodium potassium chloride CO2 all normal. Anion gap 9. BUN 25, with a creatinine of 3.21. Progress note dated 11/19/2020. 75-year-old female well-known to our service. The patient is again seen in room 471. She remains on BiPAP. As we are going into the room, the nurse at the counter informed us that the patient had decided to go on to hospice. That is probably the right decision for this patient. Her BiPAP settings have been IPAP of 12, EPAP of 6, and 25%. Blood gases were done a couple days ago. Labs today include a white count of 12.4, hemoglobin 9.4, hematocrit 32, and a platelet count of 248,000. Sodium 139, potassium 4.5, chlorides 102, CO2 24, anion gap 13, BUN 30, and creatinine 3.87. Recent troponins have been 0.0452. Chest x- ray from yesterday continues to show a pattern of CHF/heart failure. Objective - Vital Signs Vital signs: Vital Signs Temp 98.7 F 11/19/20 07:22 Pulse 93 11/19/20 07:22 Resp 22 11/19/20 07:22 BP 155/73 11/19/20 07:22 Pulse Ox 97 11/19/20 07:22 Intake & Output 11/18/20 11/19/20 11/19/20 18:59 06:59 18:59 Weight 90 kg Other: Voiding Method Diaper # Voids 1 # Bowel Movements 2 - Exam No acute distress, currently on 3 L nasal cannula. Saturations are 96%. She lethargic and somnolent, and poorly arousable. HEENT examination is grossly unremarkable. Neck supple. Full range of motion. No adenopathy thyromegaly or neck vein distention. Cardiovascular examination reveals regular rhythm rate. S1-S2 normal. No S3 or S4. No discernible murmur noted. Heart sounds are very distant. Heart rate 93 bpm. Lungs reveal mostly clear breath sounds. Scattered crackles are noted. No wheezes. Scattered mild rhonchi are noted. Breath sounds are equal bilaterally. Abdomen soft bowel sounds are heard. No masses or tenderness. Extremities are intact. No cyanosis clubbing or edema. Skin is without rash or lesion. Wound VAC in place. Neurologic examination is difficult to assess given her mental status changes. - Labs CBC & Chem 7: 11/19/20 00:21 11/19/20 00:21 Labs: Abnormal Lab Results - Last 24 Hours (Table) 11/18/20 11/18/20 11/19/20 Range/Units 16:40 20:13 00:21 WBC (3.8-10.6) k/uL RBC (3.80-5.40) m/uL Hgb (11.4-16.0) gm/dL Hct (34.0-46.0) % MCV (80.0-100.0) fL MCHC (31.0-37.0) g/dL RDW (11.5-15.5) % Neutrophils # (1.3-7.7) k/uL BUN 30 H (7-17) mg/dL Creatinine 3.87 H (0.52-1.04) mg/dL Glucose 177 H (74-99) mg/dL POC Glucose (mg/dL) 130 H 161 H (75-99) mg/dL Alkaline Phosphatase 195 H (38-126) U/L Troponin I (0.000-0.034) ng/mL Albumin 3.3 L (3.5-5.0) g/dL 11/19/20 11/19/20 11/19/20 Range/Units 00:21 00:21 06:49 WBC 12.4 H (3.8-10.6) k/uL RBC 3.20 L (3.80-5.40) m/uL Hgb 9.4 L (11.4-16.0) gm/dL Hct 32.0 L (34.0-46.0) % MCV 100.1 H (80.0-100.0) fL MCHC 29.2 L (31.0-37.0) g/dL RDW 17.8 H (11.5-15.5) % Neutrophils # 9.3 H (1.3-7.7) k/uL BUN (7-17) mg/dL Creatinine (0.52-1.04) mg/dL Glucose (74-99) mg/dL POC Glucose (mg/dL) 127 H (75-99) mg/dL Alkaline Phosphatase (38-126) U/L Troponin I 0.045 H* (0.000-0.034) ng/mL Albumin (3.5-5.0) g/dL 11/19/20 11/19/20 Range/Units 07:00 11:01 WBC (3.8-10.6) k/uL RBC (3.80-5.40) m/uL Hgb (11.4-16.0) gm/dL Hct (34.0-46.0) % MCV (80.0-100.0) fL MCHC (31.0-37.0) g/dL RDW (11.5-15.5) % Neutrophils # (1.3-7.7) k/uL BUN (7-17) mg/dL Creatinine (0.52-1.04) mg/dL Glucose (74-99) mg/dL POC Glucose (mg/dL) 108 H (75-99) mg/dL Alkaline Phosphatase (38-126) U/L Troponin I 0.045 H* (0.000-0.034) ng/mL Albumin (3.5-5.0) g/dL Microbiology - Last 24 Hours (Table) 11/13/20 03:21 Blood Culture - Final Blood No Growth after 144 hours 11/12/20 10:55 Blood Culture - Final Blood No Growth after 144 hours Assessment and Plan Assessment: Possible aspiration pneumonia, right lung, in a patient with mental status c hanges/lethargy/somnolence. Escherichia coli urinary tract infection. History of atrial fibrillation. History of CAD, with stent placement. History of heart failure. History of diabetes mellitus. Status post transcatheter aortic valve replacement, 2018. PTBA, left leg, 2018. History of end-stage renal disease, on 3 time a week hemodialysis. Gastroesophageal reflux disease. History of GI bleed. History of hyperlipidemia. History of hypertension. History of myocardial infarction. Prior history of pneumonia. History of sleep apnea syndrome. Plan: Plan dated 11/16/2020. Currently, the patient is being seen by multiple specialists including infectious diseases, and is currently on vancomycin, Zosyn, and Flagyl. The only current culture data which is positive was the Escherichia coli in the urine. I believe the antibiotics can probably be consolidated. Chest x-ray shows an infiltrate in the right lung. This is back on the . A repeat chest x-ray will be ordered. The patient is not demonstrating any signs or symptoms of respiratory distress at this time and is currently on 2 L with adequate saturations. The patient is receiving BiPAP at nighttime. Additional recommendations and suggestions are forthcoming. Plan dated 11/25/2020. The patient remains on antibiotics in the form of vancomycin, Flagyl, and Zosyn. She is being seen by infectious diseases. She does have E. coli in the urine. Blood gases were reasonable. Return the FiO2 down from 30% down to 25%. Saturations are 90%. She's currently on BiPAP. She can be transitioned to 2 L nasal cannula. Additional recommendations are made. We will continue to follow. Prognosis is guarded. Palliative care consult or hospice consult should be considered. Plan dated 11/18/2020. The patient will have a follow-up chest x-ray. The patient remains on Flagyl, vancomycin, and Zosyn. She was on 2 L nasal cannula this morning. He is a bit more awake today and is actually speaking. She feels like she is a bit better. No additional recommendations are made. Repeat chest x-ray will be ordered. Plan dated 11/19/2020. The patient or the patient's family has decided to go onto hospice care. I believe this to be appropriate for this patient. We will no longer need to see the patient moving forward. Additional recommendations and suggestions are forthcoming. Obviously, unnecessary medication should be discontinued. The goal should be comfort and palliation. Time with Patient: Less than 30
[2020-11-19 13:44] VITALS: RESP 18
[2020-11-19 16:20] VITALS: BP 152/60; PULSE 89; TEMP 97.1
--- NOTE | 2020-11-19 17:15 | PN ---
PROGRESS NOTE REASON FOR FOLLOWUP: 1. Possible aspiration pneumonia. 2. Infected sacral pressure ulcer. INTERVAL HISTORY: The patient is not able to respond. The patient remains to be lethargic, is on BiPAP. She is hemodynamically stable, not on pressor support. No vomiting. No abdominal symptoms. PHYSICAL EXAMINATION: Blood pressure 164/70 with a pulse of 86, temperature is 98.5. She is 97% on BiPAP. GENERAL DESCRIPTION: Is an elderly female lying in bed in no distress. RESPIRATORY SYSTEM: Unlabored breathing, decreased BS, no wheeze. HEART: S1, S2. Regular rate. ABDOMEN: Soft, nontender. LAB: Hemoglobin 7.1, white count 2.4, BUN of 70, creatinine 3.87. DIAGNOSTIC IMPRESSION AND PLAN: 1. Patient with admission hospital with mental status changes. There was concern for possible left lower lobe pneumonia. ( ). Continue with Zosyn. Sputum ( ). 2. Blood cultures were negative. ( ) initial course of oral Levaquin. 3. Patient with infected sacral pressure ulcer. Local care. To continue with wound VAC. Will benefit for vancomycin, oral Flagyl for 2 more weeks and close outpatient followup. MMODL / IJN: [id number] /
[2020-11-28] MEDS ORDERED: DARBEPOETIN ALFA 40 MCG/0.4 ML SYRINGE SQ SCH (09:00)
== END 2020-11-19 17:35 | disposition hospice, home (50) | DRG 177 ==
LOC: EC 10:26 → 5NMEDONC 13:11 → 4SSUR 22:51
PROVIDERS: ADMIT Internal Medicine; ATTEND Internal Medicine
PROC: 5A1D70Z Performance of Urinary Filtration, Intermittent, Less than 6 Hours Per Day (ICD-10-PCS; 2020-11-12)
PROC: 5A09457 Assistance with Respiratory Ventilation, 24-96 Consecutive Hours, Continuous Positive Airway Pressure (ICD-10-PCS; principal; 2020-11-15)
PROC: 30233N1 Transfusion of Nonautologous Red Blood Cells into Peripheral Vein, Percutaneous Approach (ICD-10-PCS; 2020-11-15)
DX: J69.0 Pneumonitis due to inhalation of food and vomit (principal); J96.21 Acute and chronic respiratory failure with hypoxia; L89.153 Pressure ulcer of sacral region, stage 3; N18.6 End stage renal disease; G93.41 Metabolic encephalopathy; N39.0 Urinary tract infection, site not specified; F33.9 Major depressive disorder, recurrent, unspecified; I48.20 Chronic atrial fibrillation, unspecified; I50.32 Chronic diastolic (congestive) heart failure; I13.2 Hypertensive heart and chronic kidney disease with heart failure and with stage 5 chronic kidney disease, or end stage renal disease; D62 Acute posthemorrhagic anemia; E87.2 Acidosis; J98.11 Atelectasis; G93.49 Other encephalopathy; Z79.82 Long term (current) use of aspirin; Z82.49 Family history of ischemic heart disease and other diseases of the circulatory system; Z51.5 Encounter for palliative care; Z20.822 Contact with and (suspected) exposure to COVID-19; Z79.4 Long term (current) use of insulin; I25.10 Atherosclerotic heart disease of native coronary artery without angina pectoris; E78.5 Hyperlipidemia, unspecified; Z95.2 Presence of prosthetic heart valve; I25.2 Old myocardial infarction; Z95.5 Presence of coronary angioplasty implant and graft; K21.9 Gastro-esophageal reflux disease without esophagitis; D63.1 Anemia in chronic kidney disease; Z99.3 Dependence on wheelchair; L98.499 Non-pressure chronic ulcer of skin of other sites with unspecified severity; E11.622 Type 2 diabetes mellitus with other skin ulcer; E11.22 Type 2 diabetes mellitus with diabetic chronic kidney disease; Z99.2 Dependence on renal dialysis; B95.2 Enterococcus as the cause of diseases classified elsewhere; Z82.5 Family history of asthma and other chronic lower respiratory diseases; Z87.01 Personal history of pneumonia (recurrent); G47.33 Obstructive sleep apnea (adult) (pediatric); B96.20 Unspecified Escherichia coli [E. coli] as the cause of diseases classified elsewhere; E11.42 Type 2 diabetes mellitus with diabetic polyneuropathy; I48.0 Paroxysmal atrial fibrillation; Z77.22 Contact with and (suspected) exposure to environmental tobacco smoke (acute) (chronic); M89.9 Disorder of bone, unspecified; Z82.3 Family history of stroke; Z86.14 Personal history of Methicillin resistant Staphylococcus aureus infection; Z87.440 Personal history of urinary (tract) infections; Z90.710 Acquired absence of both cervix and uterus; I45.10 Unspecified right bundle-branch block; I35.0 Nonrheumatic aortic (valve) stenosis; Z91.81 History of falling; Z79.899 Other long term (current) drug therapy; M89.8X9 Other specified disorders of bone, unspecified site; I95.9 Hypotension, unspecified
CPT/HCPCS: 36415; 36600; 70450; 71045; 71046; 74176; 80053; 80202; 81001; 82272; 82565; 82805; 83605; 83735; 83880; 84145; 84484; 85025; 85027; 85610; 85730; 86850; 86900; 86901; 86920; 87040; 87077; 87086; 87186; 87635; 90935; 93005; 94660; 94760; 96365; 96366; 99285